=== PATIENT | female | born 1960 | race American Indian/Alaskan Native ===

== ENCOUNTER 2016-09-10 10:11 | Inpatient (IN) | payer MEDICARE ==
--- NOTE | 2016-09-10 11:43 | Emergency Department Report ---
Chief Complaint: Extremity Injury, Lower Stated Complaint: DIABETIC ISSUES - HPI History of Present Illness: 56 F PMH DMT2, morbid obesity presents with complaint of 2 days of severe right foot pain and swelling and pus drainage. Patient states that she had small ulcer on foot but it was not bothering her, had progressive worsening pain and purulent discharge from right foot along with severe swelling of right foot and lower extremity over the last 2 days. Difficulty walking on foot - ROS Review of Systems: ? Diabetic foot ulcer, morbid obesity, diabetes - Exam Vital Signs: Vital Signs 09/10/16 10:19 Temperature 99.0 F Pulse Rate 113 H Blood Pressure 146/86 O2 Sat by Pulse 98 Oximetry Physical Exam: Examination of the right lower extremity reveals pitting edema erythema cellulitis up to the right knee pretibial region, right foot appears gangrenous at base of right fourth toe visible air pockets with bubbles and drainage of purulent material from skin breakdown at base of right foot smells purulent and infected MSE screening note: Focused history and physical exam performed. Due to findings the following was ordered: Screening Assessment/Plan/Differential Dx: Diabetic foot infection, gangrene, cellulitis 1- This initial assessment/diagnostic orders/clinical plan/ treatment(s) is/are subject to change based on pt's health status, clinical progression and re- assessment by fellow clinical providers in the ED. Further treatment and workup at subsequent clinical provers discretion. Patient/guardians urged not to elope from ED as their condition may be serious if not clinically assessed and managed. 2-I immediately inform Dr. Sr who came and examined patient's foot after my initial exam, he agrees that patient may have a gangrenous toe and definitely has diabetic foot infection, likely require admission IV antibiotics and assessment for possible osteomyelitis 3-sepsis order set, CBC, ESR, CRP, x-ray right foot, lower extremity Doppler 4-Dr. Sr and I informed charge nurse Lidia that pt may be septic due to foot , as per warp picker Nikki no space in main ED at this time, pt to wait in waiting room. I advocated for pt as best as i could under circumstances. I will continue to check top see if pt can be moved into main ED room for IV ABX ABEL ED Disposition for MSE Condition: Stable
[2016-09-10 12:56] LABS: Hematocrit 35.1 % (30.3-42.9); Hemoglobin 11.3 gm/dl (10.1-14.3); Mean Corpuscular HGB Conc 32 % (30-34); Mean Corpuscular Hemoglobin 27 pg (28-32); Mean Corpuscular Volume 85 fl (79-97); Platelet Count 322 K/mm3 (140-440); Red Blood Count 4.13 M/mm3 (3.65-5.03); Red Cell Distribution Width 14.4 % (13.2-15.2)
[2016-09-10 12:57] LABS: White Blood Count 24.8 K/mm3 (4.5-11.0)
[2016-09-10 13:05] LABS: INR 1.24 (0.87-1.13)
[2016-09-10 13:06] LABS: BUN/Creatinine Ratio 11.66; Chloride 88.8 mmol/L (98-107); Partial Thromboplastin Time 29.5 Sec. (24.2-36.6)
[2016-09-10 13:09] LABS: Albumin 3.3 g/dL (3.9-5); Albumin/Globulin Ratio 0.6 %; Bilirubin,Direct 0.4 mg/dL (0-0.2); Bilirubin,Indirect 0.6 mg/dL; C-Reactive Protein 33.4 mg/dL (0.00-1.30); Total Protein 8.8 g/dL (6.3-8.2)
--- NOTE | 2016-09-10 13:19 | XRay Report ---
Right foot: There is scattered bubbles of gas in the soft tissues on the dorsum of the mid and distal foot . There is generalized swelling of the soft tissues with focal soft tissue bulging in the dorsum of the mid and distal foot. The underlying bones and joints are preserved with no destructive change. The bones appear relatively well-mineralized. Impressions: Findings are consistent with soft tissue infection. No osteomyelitis identified.
[2016-09-10 13:35] LABS: Erythrocyte Sedimentation Rate 77 mm/Hr (0-20)
[2016-09-10 13:51] LABS: Basophils % (Manual) 0 % (0.0-1.8); Blastocytes % (Manual) 0 %; Eosinophils % (Manual) 0 % (0.0-4.3); Total Cells Counted Percent 6.5
[2016-09-10 13:54] LABS: Diff Status Complete; RBC Morphology Normal
[2016-09-10] MEDS ORDERED: ZOSYN/NS 3.375GM/50ML 50 ML IV ONE (16:22)
[2016-09-10] MEDS ORDERED: NACL 0.9% 1000 ML 1,000 ML IV ONE (16:22)
--- NOTE | 2016-09-10 16:22 | Emergency Department Report ---
ED General Adult HPI - General Chief complaint: Extremity Injury, Lower Stated complaint: DIABETIC ISSUES Time Seen by Provider: 09/10/16 16:09 Source: patient Mode of arrival: Ambulatory Limitations: Physical Limitation - History of Present Illness Initial comments: The patient gives a history that is possibly unreliable. She states that she developed a blister on the dorsum of her foot yesterday. However she admitted to the nurse that her foot has been smelling bad for a month. In addition she states that she has been going to a professor/nurse anesthetist. She tells me that she has taken a cell phone picture the bottom of her foot and that there is an ulcer there which she's had for greater than a month. She identifies the blister on the top of her foot as the new problems. However she has a frankly gangrenous foot on presentation to this facility. Additionally she has cellulitis and swelling extending to above her ankle. She denies any recent fever. She denies chills. She denies nausea vomiting or breathing difficulty. She states that he's had some yellow discharge from the blister. -: week(s) Location: right (the patient does not complain of much foot pain at this juncture) Consistency: now resolved Improves with: none Worsens with: none Associated Symptoms: denies other symptoms Treatments Prior to Arrival: none - Related Data Home Medications Medication Instructions Recorded Confirmed Last Taken Albuterol Sulfate [Ventolin HFA] 2 puff IH Q4H PRN 01/29/14 02/02/15 02/01/15 Levothyroxine [Synthroid] 200 mcg PO QAM 01/29/14 02/02/15 02/01/15 Losartan/Hydrochlorothiazide 1 each PO QDAY 01/29/14 02/02/15 02/02/15 10:00 [Hyzaar 100-12.5] glipiZIDE [Glipizide Xl] 10 mg PO BID 01/29/14 02/02/15 02/01/15 metFORMIN [Glucophage] 1,000 mg PO BID 01/29/14 02/02/15 02/01/15 Cetirizine HCl [ZyrTEC] 10 mg PO DAILY 01/26/15 02/02/15 01/31/15 Fluticasone/Salmeterol [Advair 1 each IH PRN PRN 0502/02/15 02/02/15 10: 00 250-50 Diskus] Furosemide [Lasix] 10 mg PO QDAY 01/26/15 02/02/15 02/01/15 Insulin Glargine [Lantus] 50 unit SUB-Q QHS 01/26/15 02/02/15 02/01/15 Insulin NPH Hum/Reg Insulin Hm 10 - 50 unit SQ QAM 01/26/15 02/02/15 01/31/15 [HumuLIN 70-30 Vial] Tramadol HCl [traMADol] 50 mg PO PRN PRN 01/26/15 02/02/15 01/31/15 Previous Rx's Medication Instructions Recorded Last Taken Type HYDROcodone/APAP 5-325 [[place] 2 each PO Q6H PRN #30 tablet 02/03/15 Unknown Rx 5-325 mg TAB] Allergies Allergy/AdvReac Type Severity Reaction Status Date / Time latex Allergy Unknown Verified 01/26/15 16:14 shellfish derived Allergy Anaphylaxis Verified 01/26/15 16:14 strawberry Allergy Anaphylaxis Verified 01/26/15 16:14 tomato Allergy Anaphylaxis Verified 01/26/15 16:14 nuts Allergy Anaphylaxis Uncoded 01/26/15 16:14 ED Review of Systems ROS: Stated complaint: DIABETIC ISSUES Other details as noted in HPI Constitutional: denies: chills, fever Eyes: eye discharge. denies: eye pain, vision change ENT: denies: ear pain, throat pain Respiratory: denies: cough, shortness of breath Cardiovascular: denies: chest pain, palpitations Endocrine: no symptoms reported Gastrointestinal: denies: abdominal pain, nausea Genitourinary: denies: urgency, dysuria Musculoskeletal: as per HPI. denies: back pain, arthralgia Skin: as per HPI Neurological: denies: headache, weakness Psychiatric: denies: anxiety, depression Hematological/Lymphatic: denies: easy bleeding, easy bruising ED Past Medical Hx - Past Medical History Hx Hypertension: Yes (since the mid s) Hx Diabetes: Yes Hx Arthritis: Yes (RA) Hx Asthma: Yes (uses Advair and PRN Albuterol) Hx COPD: No Additional medical history: thyroid dz. neuropathy - Social History Smoking Status: Former Smoker - Medications Home Medications: Home Medications Medication Instructions Recorded Confirmed Last Taken Type Albuterol Sulfate [Ventolin HFA] 2 puff IH Q4H PRN 01/29/14 02/02/15 02/01/15 History Levothyroxine [Synthroid] 200 mcg PO QAM 01/29/14 02/02/15 02/01/15 History Losartan/Hydrochlorothiazide 1 each PO QDAY 01/29/14 02/02/15 02/02/15 10:00 History [Hyzaar 100-12.5] glipiZIDE [Glipizide Xl] 10 mg PO BID 01/29/14 02/02/15 02/01/15 History metFORMIN [Glucophage] 1,000 mg PO BID 01/29/14 02/02/15 02/01/15 History Cetirizine HCl [ZyrTEC] 10 mg PO DAILY 01/26/15 02/02/15 01/31/15 History Fluticasone/Salmeterol [Advair 1 each IH PRN PRN 01/26/15 02/02/15 02/02/15 10: 00 History 250-50 Diskus] Furosemide [Lasix] 10 mg PO QDAY 01/26/15 02/02/15 02/01/15 History Insulin Glargine [Lantus] 50 unit SUB-Q QHS 01/26/15 02/02/15 02/01/15 History Insulin NPH Hum/Reg Insulin Hm 10 - 50 unit SQ QAM 01/26/15 02/02/15 01/31/15 History [HumuLIN 70-30 Vial] Tramadol HCl [traMADol] 50 mg PO PRN PRN 01/26/15 02/02/15 01/31/15 History HYDROcodone/APAP 5-325 [[place] 2 each PO Q6H PRN #30 tablet 02/03/15 Unknown Rx 5-325 mg TAB] ED Physical Exam - General Limitations: Physical Limitation General appearance: alert, in no apparent distress - Head Head exam: Present: atraumatic, normocephalic - Eye Eye exam: Present: normal appearance. Absent: scleral icterus - ENT ENT exam: Present: mucous membranes dry - Neck Neck exam: Present: normal inspection. Absent: tenderness, meningismus - Respiratory Respiratory exam: Present: normal lung sounds bilaterally. Absent: respiratory distress - Cardiovascular Cardiovascular Exam: Present: regular rate, normal rhythm. Absent: systolic murmur, diastolic murmur, rubs, gallop - GI/Abdominal GI/Abdominal exam: Present: soft, normal bowel sounds. Absent: distended, tenderness, guarding, rebound, rigid - Extremities Exam Extremities exam: Present: normal inspection - Back Exam Back exam: Present: normal inspection - Neurological Exam Neurological exam: Present: oriented X3, CN II-XII intact, motor sensory deficit (patient essentially is not moving her toes whatsoever. She's somewhat insensate.) - Psychiatric Psychiatric exam: Present: normal affect, normal mood - Skin Skin exam: Absent: normal color (the patient essentially has a gangrenous foot. She has a bullae on the dorsum of her foot. There is 2-3+ edema. She has swelling to the region between her ankle and her mid calf. There is erythema. There is no apparent lymphangitis. There is warmth. Pulses cannot be appreciated.) ED Course Vital Signs 09/10/16 09/10/16 09/10/16 10:19 16:41 17:09 Temperature 99.0 F 99.2 F Pulse Rate 113 H 74 Respiratory 16 14 Rate Blood Pressure 146/86 Blood Pressure 124/72 [Left] O2 Sat by Pulse 98 95 98 Oximetry 09/10/16 18:40 Temperature 98.8 F Pulse Rate 95 H Respiratory 17 Rate Blood Pressure Blood Pressure 98/67 [Left] O2 Sat by Pulse 99 Oximetry - Reevaluation(s) Reevaluation #1: I advised empiric antibiotics after seeing this patient in the MSE the area. Since the patient was placed in the treatment area they were ordered. I spoke to Dr. Shannon concerning this patient's presentation and apparent either headache foot infection with gas present on the x-ray. He requested that I Text him a picture child have done. He instructed me to let the hospitalist know that the patient should be nothing by mouth at midnight for possible amputation in the morning. Dr. Barr has been informed. 09/10/16 19:04 ED Medical Decision Making - Lab Data Result diagrams: 09/10/16 12:25 09/10/16 12:25 Laboratory Results - last 24 hr 09/10/16 09/10/16 09/10/16 12:25 12:25 12:25 WBC 24.8 H RBC 4.13 Hgb 11.3 Hct 35.1 MCV 85 MCH 27 L MCHC 32 RDW 14.4 Plt Count 322 Add Manual Diff Complete Total Counted 200 Seg Neuts % (Manual) 84.0 H Band Neutrophils % 3.5 Lymphocytes % (Manual) 5.5 L Reactive Lymphs % (Man) 0 Monocytes % (Manual) 6.0 Eosinophils % (Manual) 0 Basophils % (Manual) 0 Metamyelocytes % 0.5 Myelocytes % 0.5 Promyelocytes % 0 Blast Cells % 0 Nucleated RBC % Not Reportable Seg Neutrophils # Man 20.8 H Band Neutrophils # 0.9 Lymphocytes # (Manual) 1.4 Abs React Lymphs (Man) 0.0 Monocytes # (Manual) 1.5 H Eosinophils # (Manual) 0.0 Basophils # (Manual) 0.0 Metamyelocytes # 0.1 Myelocytes # 0.1 Promyelocytes # 0.0 Blast Cells # 0.0 WBC Morphology Not Reportable Hypersegmented Neuts Not Reportable Hyposegmented Neuts Not Reportable Hypogranular Neuts Not Reportable Smudge Cells Not Reportable Toxic Granulation Not Reportable Toxic Vacuolation Not Reportable Dohle Bodies Not Reportable Pelger-Huet Anomaly Not Reportable Nba Rods Not Reportable Platelet Estimate Appears normal Clumped Platelets Not Reportable Plt Clumps, EDTA Not Reportable Large Platelets Not Reportable Giant Platelets Not Reportable Platelet Satelliting Not Reportable Plt Morphology Comment Not Reportable RBC Morphology Normal Dimorphic RBCs Not Reportable Polychromasia Not Reportable Hypochromasia Not Reportable Poikilocytosis Not Reportable Anisocytosis Not Reportable Microcytosis Not Reportable Macrocytosis Not Reportable Spherocytes Not Reportable Pappenheimer Bodies Not Reportable Sickle Cells Not Reportable Target Cells Not Reportable Tear Drop Cells Not Reportable Ovalocytes Not Reportable Helmet Cells Not Reportable Terry-[place] Bodies Not Reportable [place] Rings Not Reportable Marshall Cells Not Reportable Bite Cells Not Reportable Crenated Cell Not Reportable Elliptocytes Not Reportable Acanthocytes (Spur) Not Reportable Rouleaux Not Reportable Hemoglobin C Crystals Not Reportable Schistocytes Not Reportable Malaria parasites Not Reportable ESR 77 Luis Bodies Not Reportable Hem Pathologist Commnt No PT INR APTT Sodium 135 L Potassium 4.0 Chloride 88.8 L Carbon Dioxide 26 Anion Gap 24 BUN 28 H Creatinine 2.4 H Estimated GFR 25 BUN/Creatinine Ratio 11.66 Glucose 179 H Lactic Acid 2.3 H* Calcium 9.0 Total Bilirubin Direct Bilirubin Indirect Bilirubin AST ALT Alkaline Phosphatase C-Reactive Protein Total Protein Albumin Albumin/Globulin Ratio Blood Type Antibody Screen 09/10/16 09/10/16 09/10/16 12:25 12:25 12:25 WBC RBC Hgb Hct MCV MCH MCHC RDW Plt Count Add Manual Diff Total Counted Seg Neuts % (Manual) Band Neutrophils % Lymphocytes % (Manual) Reactive Lymphs % (Man) Monocytes % (Manual) Eosinophils % (Manual) Basophils % (Manual) Metamyelocytes % Myelocytes % Promyelocytes % Blast Cells % Nucleated RBC % Seg Neutrophils # Man Band Neutrophils # Lymphocytes # (Manual) Abs React Lymphs (Man) Monocytes # (Manual) Eosinophils # (Manual) Basophils # (Manual) Metamyelocytes # Myelocytes # Promyelocytes # Blast Cells # WBC Morphology Hypersegmented Neuts Hyposegmented Neuts Hypogranular Neuts Smudge Cells Toxic Granulation Toxic Vacuolation Dohle Bodies Pelger-Huet Anomaly Nba Rods Platelet Estimate Clumped Platelets Plt Clumps, EDTA Large Platelets Giant Platelets Platelet Satelliting Plt Morphology Comment RBC Morphology Dimorphic RBCs Polychromasia Hypochromasia Poikilocytosis Anisocytosis Microcytosis Macrocytosis Spherocytes Pappenheimer Bodies Sickle Cells Target Cells Tear Drop Cells Ovalocytes Helmet Cells Terry-[place]ner Bodies [place] Rings Marshall Cells Bite Cells Crenated Cell Elliptocytes Acanthocytes (Spur) Rouleaux Hemoglobin C Crystals Schistocytes Malaria parasites ESR Luis Bodies Hem Pathologist Commnt PT 15.5 H INR 1.24 H APTT 29.5 Sodium Potassium Chloride Carbon Dioxide Anion Gap BUN Creatinine Estimated GFR BUN/Creatinine Ratio Glucose Lactic Acid Calcium Total Bilirubin 1.0 Direct Bilirubin 0.4 H Indirect Bilirubin 0.6 AST 21 ALT 17 Alkaline Phosphatase 72 C-Reactive Protein 33.40 H Total Protein 8.8 H Albumin 3.3 L Albumin/Globulin Ratio 0.6 Blood Type B POSITIVE Antibody Screen Negative 09/10/16 15:10 WBC RBC Hgb Hct MCV MCH MCHC RDW Plt Count Add Manual Diff Total Counted Seg Neuts % (Manual) Band Neutrophils % Lymphocytes % (Manual) Reactive Lymphs % (Man) Monocytes % (Manual) Eosinophils % (Manual) Basophils % (Manual) Metamyelocytes % Myelocytes % Promyelocytes % Blast Cells % Nucleated RBC % Seg Neutrophils # Man Band Neutrophils # Lymphocytes # (Manual) Abs React Lymphs (Man) Monocytes # (Manual) Eosinophils # (Manual) Basophils # (Manual) Metamyelocytes # Myelocytes # Promyelocytes # Blast Cells # WBC Morphology Hypersegmented Neuts Hyposegmented Neuts Hypogranular Neuts Smudge Cells Toxic Granulation Toxic Vacuolation Dohle Bodies Pelger-Huet Anomaly Nba Rods Platelet Estimate Clumped Platelets Plt Clumps, EDTA Large Platelets Giant Platelets Platelet Satelliting Plt Morphology Comment RBC Morphology Dimorphic RBCs Polychromasia Hypochromasia Poikilocytosis Anisocytosis Microcytosis Macrocytosis Spherocytes Pappenheimer Bodies Sickle Cells Target Cells Tear Drop Cells Ovalocytes Helmet Cells Terry-[place]ner Bodies [place] Rings Marshall Cells Bite Cells Crenated Cell Elliptocytes Acanthocytes (Spur) Rouleaux Hemoglobin C Crystals Schistocytes Malaria parasites ESR Luis Bodies Hem Pathologist Commnt PT INR APTT Sodium Potassium Chloride Carbon Dioxide Anion Gap BUN Creatinine Estimated GFR BUN/Creatinine Ratio Glucose Lactic Acid 1.5 Calcium Total Bilirubin Direct Bilirubin Indirect Bilirubin AST ALT Alkaline Phosphatase C-Reactive Protein Total Protein Albumin Albumin/Globulin Ratio Blood Type Antibody Screen - Radiology Data interpreted by me: Gas noted in the dorsum of the foot with soft tissue swelling. Against does not extend as far as I can tell. Chest x-ray shows cardiomegaly with and without decompensation. Doppler exam was negative for DVT. Critical care attestation.: If time is entered above; I have spent that time in minutes in the direct care of this critically ill patient, excluding procedure time. ED Disposition Clinical Impression: Gas gangrene of foot, Diabetic infection of right foot, Renal failure Leukocytosis (leucocytosis) Qualifiers: Leukocytosis type: bandemia Qualified Code(s): D72.825 - Bandemia Disposition: OP ADMITTED IP TO THIS HOSP Is pt being admited?: Yes Does the pt Need Aspirin: No Condition: Stable Instructions: Diabetes Mellitus Type 2 in Adults (ED) Referrals: INDIA ESCALANTE MD [Primary Care Provider] - 3-5 Days Time of Disposition: 19:21
[2016-09-10] MEDS ORDERED: CLEOCIN 600 MG/50 mL 50 ML IV ONE (16:24)
[2016-09-10] MEDS ORDERED: VANCOMYCIN PHARMACY TO DOSE IV SCH (17:00)
[2016-09-10] MEDS ORDERED: VANCOMYCIN VIAL 1,250 MG in NACL 0.9% 250ML 250 ML IV SCH (18:00)
[2016-09-10] MEDS ORDERED: ZOFRAN ONE (18:28)
[2016-09-10] MEDS ORDERED: MORPHINE ONE (18:43)
[2016-09-10] MEDS ORDERED: ZOFRAN IV ONE (18:51)
[2016-09-10] MEDS ORDERED: MORPHINE IV ONE (18:51)
[2016-09-10] MEDS ORDERED: PROAIR IH PRN (21:09)
[2016-09-10] MEDS ORDERED: FLUTICASONE IH PRN (21:09)
[2016-09-10] MEDS ORDERED: ULTRAM PO PRN (21:09)
[2016-09-10] MEDS ORDERED: SALMETEROL IH PRN (21:09)
--- NOTE | 2016-09-10 21:09 | Event Note ---
Date: 09/10/16 See H/p in reports Rt Foot cellulitis versus Abscess/Gas Gangrene T2DM- HTN Obesity
[2016-09-10] MEDS ORDERED: ZOFRAN IV PRN (21:14)
[2016-09-10] MEDS ORDERED: DULCOLAX PR PRN (21:14)
[2016-09-10] MEDS ORDERED: PERCOCET 5/325 PO PRN (21:14)
[2016-09-10] MEDS ORDERED: TYLENOL PO PRN (21:14)
[2016-09-10] MEDS ORDERED: MILK OF MAGNESIA PO PRN (21:14)
[2016-09-10] MEDS ORDERED: NON-FORMULARY (Losartan/Hydrochlorothiazide [Hyzaar 100-12.5 Tab] 1 EACH) PO SCH (21:15)
[2016-09-10] MEDS ORDERED: PROVENTIL IH PRN (21:43)
[2016-09-10] MEDS ORDERED: LOVENOX SUB-Q SCH (22:00)
[2016-09-10] MEDS ORDERED: VANCOMYCIN VIAL 1,000 MG in NACL 0.9% 250ML 250 ML IV SCH (22:00)
[2016-09-10] MEDS ORDERED: GLUCOPHAGE PO SCH (22:00)
[2016-09-10] MEDS ORDERED: INSULIN GLARGINE 50 UNIT SUB-Q SCH (22:00)
[2016-09-10] MEDS ORDERED: COZAAR PO SCH (22:00)
[2016-09-10] MEDS ORDERED: VANCOMYCIN VIAL 750 MG in NACL 0.9% 250ML 250 ML IV ONE (22:00)
[2016-09-10] MEDS ORDERED: HCTZ PO SCH (22:00)
[2016-09-10] MEDS: LEVEMIR SUB-Q SCH (22:30)
[2016-09-11] MEDS ORDERED: ZOSYN/NS 4.5GM/100ML 100 ML IV SCH
[2016-09-11] MEDS ORDERED: MORPHINE ONE (01:09)
[2016-09-11] MEDS ORDERED: NOVOLOG SUB-Q ONE (02:35)
[2016-09-11] MEDS: SYNTHROID PO SCH (06:22)
[2016-09-11 06:24] LABS: Hematocrit 31.3 % (30.3-42.9); Mean Corpuscular HGB Conc 32 % (30-34); Mean Corpuscular Hemoglobin 27 pg (28-32); Mean Corpuscular Volume 84 fl (79-97); Platelet Count 281 K/mm3 (140-440); Red Blood Count 3.72 M/mm3 (3.65-5.03); Red Cell Distribution Width 14.6 % (13.2-15.2); White Blood Count 20.3 K/mm3 (4.5-11.0)
[2016-09-11] MEDS: NORCO 5/325 PO PRN (06:26)
[2016-09-11 06:35] LABS: Albumin 2.8 g/dL (3.9-5); Albumin/Globulin Ratio 0.5 %; BUN/Creatinine Ratio 10.27; Bilirubin,Total 0.7 mg/dL (0.1-1.2); Calcium 8.5 mg/dL (8.4-10.2); Chloride 92.7 mmol/L (98-107); Potassium 3.6 mmol/L (3.6-5.0); Total Protein 7.9 g/dL (6.3-8.2)
[2016-09-11 07:17] LABS: Anisocytosis 1+; Basophils % (Manual) 0 % (0.0-1.8); Blastocytes % (Manual) 0 %; Hypochromasia Few; Polychromasia Few; Target Cells Rare
[2016-09-11 07:18] LABS: Diff Status Complete
--- NOTE | 2016-09-11 07:41 | Consultation ---
History of Present Illness - Reason for Consult Consult date: 09/11/16 Requesting physician: DAYAMI GAMEZ - History of Present Illness Patient is a 56-year-old female who developed swelling in her right foot and pain. Patient states that he developed as a blister and got progressively worse Patient presented to the emergency room for evaluation. Patient denies claudication, rest pain, tissue loss in the past. Patient says that her foot is feeling better. She was normally ambulatory. Past History Past Medical History: CAD, COPD, diabetes, hypothyroidism Past Surgical History: No surgical history Social history: denies: smoking, alcohol abuse Medications and Allergies Allergies Allergy/AdvReac Type Severity Reaction Status Date / Time latex Allergy Unknown Verified 01/26/15 16:14 shellfish derived Allergy Anaphylaxis Verified 01/26/15 16:14 strawberry Allergy Anaphylaxis Verified 01/26/15 16:14 tomato Allergy Anaphylaxis Verified 01/26/15 16:14 nuts Allergy Anaphylaxis Uncoded 01/26/15 16:14 Home Medications Medication Instructions Recorded Confirmed Last Taken Type Albuterol Sulfate [Ventolin HFA] 2 puff IH Q4H PRN 01/29/14 09/10/16 02/01/15 History Levothyroxine [Synthroid] 200 mcg PO QAM 01/29/14 09/10/16 02/01/15 History Losartan/Hydrochlorothiazide 1 each PO QDAY 01/29/14 09/10/16 02/02/15 10:00 History [Hyzaar 100-12.5] glipiZIDE [Glipizide Xl] 10 mg PO BID 01/29/14 09/10/16 02/01/15 History metFORMIN [Glucophage] 1,000 mg PO BID 01/29/14 09/10/16 02/01/15 History Cetirizine HCl [ZyrTEC] 10 mg PO DAILY 01/26/15 09/10/16 01/31/15 History Fluticasone/Salmeterol [Advair 1 each IH PRN PRN 01/26/15 09/10/16 02/02/15 10: 00 History 250-50 Diskus] Furosemide [Lasix] 10 mg PO QDAY 01/26/15 09/10/16 02/01/15 History Insulin Glargine [Lantus] 50 unit SUB-Q QHS 0509/10/16 02/01/15 History Insulin NPH Hum/Reg Insulin Hm 10 - 50 unit SQ QAM 01/26/15 09/10/16 01/31/15 History [HumuLIN 70-30 Vial] Tramadol HCl [traMADol] 50 mg PO PRN PRN 01/26/15 09/10/16 01/31/15 History HYDROcodone/APAP 5-325 [[place] 2 each PO Q6H PRN #30 tablet 02/03/15 09/10/16 Unknown Rx 5-325 mg TAB] Active Meds: Active Medications Acetaminophen (Tylenol) 650 mg PO Q4H PRN PRN Reason: Pain MILD(1-3)/Fever >100.5/MARTÍNEZ Acetaminophen/Hydrocodone Bitart (Jackson 5/325) 2 each PO Q6H PRN PRN Reason: Moderate Pain Last Admin: 09/11/16 06:26 Dose: 2 each Albuterol (Proventil) 2.5 mg IH Q4HRT PRN PRN Reason: Shortness Of Breath Arformoterol Tartrate (Brovana Nebu) 15 mcg IH Q12HRT [facility] Bisacodyl (Dulcolax) 10 mg TN QDAY PRN PRN Reason: Constipation unrelieved by MOM Budesonide (Pulmicort) 0.5 mg IH Q12HRT [facility] Heparin Sodium (Porcine) (Heparin) 5,000 unit SUB-Q Q8HR [facility] Vancomycin HCl 2,000 mg/ (Sodium Chloride) 500 mls @ 250 mls/hr IV Q24H [facility] Piperacillin Sod/Tazobactam Sod (Zosyn/Ns 2.25 Gm/50ml) 50 mls @ 100 mls/hr IV Q8HR LEONOR PRN Reason: Protocol Sodium Chloride (Nacl 0.45% 1000 Ml) 1,000 mls @ 100 mls/hr IV DIRECT [facility] Influenza Virus Vaccine Quadrival (Fluarix Quad [id number](36 Mos+)) 60 mcg IM .ONCE ONE Stop: 09/11/16 12:01 Insulin Detemir (Levemir) 50 units SUB-Q QHS LEONOR Last Admin: 09/10/16 22:30 Dose: 50 units Insulin Human Isoph/Insulin Regular (Novolin 70/30) 20 unit SUB-Q BIDDIAB [facility] Levothyroxine Sodium (Synthroid) 200 mcg PO QAM@0600 [facility] Last Admin: 09/11/16 06:22 Dose: 200 mcg Loratadine (Claritin) 10 mg PO DAILY [facility] Morphine Sulfate (Morphine) 2 mg IV Q4H PRN PRN Reason: Pain, Moderate (4-6) Ondansetron HCl (Zofran) 4 mg IV Q8H PRN PRN Reason: N/V unrelieved by Reglan Oxycodone/Acetaminophen (Percocet 5/325) 1 tab PO Q6H PRN PRN Reason: Pain, Moderate (4-6) Tramadol HCl (Ultram) 50 mg PO DAILY PRN PRN Reason: Pain Vancomycin HCl (Vancomycin Pharmacy To Dose) 1 each IV PKCONSULT [facility] PRN Reason: Protocol Review of Systems Constitutional: no weight loss, no weight gain, no fever, no chills, no sweats Ears, nose, mouth and throat: deferred Breasts: deferred Cardiovascular: no chest pain Respiratory: no cough Gastrointestinal: no abdominal pain Musculoskeletal: no neck stiffness, no neck pain Integumentary: deferred Neurological: no transient paralysis, no paralysis, no weakness, no parathesias Exam - Physical Exam Narrative exam: Head normocephalic atraumatic Eyes extraocular muscles intact. Oral mucosa moist. Neck no carotid bruit lymph nodes or JVD. Heart regular rate and rhythm. Lungs clear to auscultation bilaterally. Abdomen soft, mild tenderness nondistended normal bowel sounds. Peripheral vascular exam 2+ pedal pulses on the right Extremities: Right foot warm, top of the foot is swollen. No evidence of gangrene or ulcer. No evidence of red streaks. No drainage. - Constitutional Vitals: Temp Pulse Resp BP Pulse Ox 97.9 F 88 24 102/58 98 09/11/16 03:30 09/11/16 03:30 09/11/16 03:30 09/11/16 03:30 09/11/16 03:30 Results - Labs CBC & Chem 7: 09/11/16 05:24 09/11/16 05:24 Labs: Abnormal lab results 09/10/16 09/11/16 09/11/16 Range/Units 22:29 02:29 05:24 WBC 20.3 H (4.5-11.0) K/mm3 Hgb 10.0 L (10.1-14.3) gm/dl MCH 27 L (28-32) pg Seg Neuts % (Manual) 80.0 H (40.0-70.0) % Lymphocytes % (Manual) 11.0 L (13.4-35.0) % Seg Neutrophils # Man 16.2 H (1.8-7.7) K/mm3 Monocytes # (Manual) 1.4 H (0.0-0.8) K/mm3 Chloride (98-107) mmol/L BUN (7-17) mg/dL Creatinine (0.7-1.2) mg/dL POC Glucose 220 H 165 H (70-105) Albumin (3.9-5) g/dL 09/11/16 Range/Units 05:24 WBC (4.5-11.0) K/mm3 Hgb (10.1-14.3) gm/dl MCH (28-32) pg Seg Neuts % (Manual) (40.0-70.0) % Lymphocytes % (Manual) (13.4-35.0) % Seg Neutrophils # Man (1.8-7.7) K/mm3 Monocytes # (Manual) (0.0-0.8) K/mm3 Chloride 92.7 L (98-107) mmol/L BUN 37 H (7-17) mg/dL Creatinine 3.6 H (0.7-1.2) mg/dL POC Glucose (70-105) Albumin 2.8 L (3.9-5) g/dL Assessment and Plan Right foot infection. Foot is viable. No evidence of peripheral vascular disease. It is unclear whether patient has a drainable collection. No indication for vascular intervention. No indication for amputation. Plan: Consult orthopedic or podiatry for possible foot debridement. Consider CT or MRI of the foot to rule out drainable collection.
[2016-09-11] MEDS ORDERED: GLUCOPHAGE PO SCH (08:00)
[2016-09-11] MEDS ORDERED: NACL 0.45% 1000 ML 1,000 ML IV SCH (08:00)
--- NOTE | 2016-09-11 08:04 | XRay Report ---
AP CHEST : 09/10/16 16:47 CLINICAL: Hypertension. COMPARISON:10/27/12 FINDINGS: Normal heart and pulmonary vessels. The lungs are clear. Bibasal opacities are due to overlying soft tissue. IMPRESSION: Normal chest.
[2016-09-11] MEDS: PULMICORT IH SCH ×2 (08:31→20:42)
[2016-09-11] MEDS: BROVANA NEBU IH SCH ×2 (08:31→20:42)
[2016-09-11] MEDS: CLARITIN PO SCH (09:51)
[2016-09-11] MEDS ORDERED: NON-FORMULARY (Cetirizine Hcl [Zyrtec] 10 MG) PO SCH (10:00)
[2016-09-11] MEDS ORDERED: LASIX PO SCH (10:00)
--- NOTE | 2016-09-11 10:06 | Progress Note ---
Hospitalist Physical - Constitutional Vitals: Temp Pulse Resp BP Pulse Ox 98.2 F 84 18 111/59 98 09/11/16 08:00 09/11/16 08:45 09/11/16 08:45 09/11/16 08:00 09/11/16 08:00 Results - Labs CBC & Chem 7: 09/11/16 05:24 09/11/16 05:24 Labs: Laboratory Last Values WBC 20.3 K/mm3 (4.5-11.0) H 09/11/16 05:24 RBC 3.72 M/mm3 (3.65-5.03) 09/11/16 05:24 Hgb 10.0 gm/dl (10.1-14.3) L 09/11/16 05:24 Hct 31.3 % (30.3-42.9) 09/11/16 05:24 MCV 84 fl (79-97) 09/11/16 05:24 MCH 27 pg (28-32) L 09/11/16 05:24 MCHC 32 % (30-34) 09/11/16 05:24 RDW 14.6 % (13.2-15.2) 09/11/16 05:24 Plt Count 281 K/mm3 (140-440) 09/11/16 05:24 Lymph % (Auto) [employer] 09/11/16 05:24 [place] % (Auto) Pul[employer]er 09/11/16 05:24 Eos % (Auto) [employer] 09/11/16 05:24 Baso % (Auto) [employer] 09/11/16 05:24 Lymph # [employer]er 09/11/16 05:24 [place] # Pulp Cooker 09/11/16 05:24 Eos # Pulp Cooker 09/11/16 05:24 Baso # Pul[employer] Cooker 09/11/16 05:24 Add Manual Diff Complete 09/11/16 05:24 Total Counted 100 09/11/16 05:24 Seg Neutrophils % [employer]er 09/11/16 05:24 Seg Neuts % (Manual) 80.0 % (40.0-70.0) H 09/11/16 05:24 Band Neutrophils % 0 % 09/11/16 05:24 Lymphocytes % (Manual) 11.0 % (13.4-35.0) L 09/11/16 05:24 Reactive Lymphs % (Man) 0 % 09/11/16 05:24 Monocytes % (Manual) 7.0 % (0.0-7.3) 09/11/16 05:24 Eosinophils % (Manual) 2.0 % (0.0-4.3) 09/11/16 05:24 Basophils % (Manual) 0 % (0.0-1.8) 09/11/16 05:24 Metamyelocytes % 0 % 09/11/16 05:24 Myelocytes % 0 % 09/11/16 05:24 Promyelocytes % 0 % 09/11/16 05:24 Blast Cells % 0 % 09/11/16 05:24 Nucleated RBC % Not Reportable 09/11/16 05:24 Seg Neutrophils # Pulp Cooker 09/11/16 05:24 Seg Neutrophils # Man 16.2 K/mm3 (1.8-7.7) H 09/11/16 05:24 Band Neutrophils # 0.0 K/mm3 09/11/16 05:24 Lymphocytes # (Manual) 2.2 K/mm3 (1.2-5.4) 09/11/16 05:24 Abs React Lymphs (Man) 0.0 K/mm3 09/11/16 05:24 Monocytes # (Manual) 1.4 K/mm3 (0.0-0.8) H 09/11/16 05:24 Eosinophils # (Manual) 0.4 K/mm3 (0.0-0.4) 09/11/16 05:24 Basophils # (Manual) 0.0 K/mm3 (0.0-0.1) 09/11/16 05:24 Metamyelocytes # 0.0 K/mm3 09/11/16 05:24 Myelocytes # 0.0 K/mm3 09/11/16 05:24 Promyelocytes # 0.0 K/mm3 09/11/16 05:24 Blast Cells # 0.0 K/mm3 09/11/16 05:24 WBC Morphology Not Reportable 09/11/16 05:24 Hypersegmented Neuts Not Reportable 09/11/16 05:24 Hyposegmented Neuts Not Reportable 09/11/16 05:24 Hypogranular Neuts Not Reportable 09/11/16 05:24 Smudge Cells Not Reportable 09/11/16 05:24 Toxic Granulation Not Reportable 09/11/16 05:24 Toxic Vacuolation Not Reportable 09/11/16 05:24 Dohle Bodies Not Reportable 09/11/16 05:24 Pelger-Huet Anomaly Not Reportable 09/11/16 05:24 Nba Rods Not Reportable 09/11/16 05:24 Platelet Estimate Appears normal 09/11/16 05:24 Clumped Platelets Not Reportable 09/11/16 05:24 Plt Clumps, EDTA Not Reportable 09/11/16 05:24 Large Platelets Not Reportable 09/11/16 05:24 Giant Platelets Not Reportable 09/11/16 05:24 Platelet Satelliting Not Reportable 09/11/16 05:24 Plt Morphology Comment Not Reportable 09/11/16 05:24 RBC Morphology Not Reportable 09/11/16 05:24 Dimorphic RBCs Not Reportable 09/11/16 05:24 Polychromasia Few 09/11/16 05:24 Hypochromasia Few 09/11/16 05:24 Poikilocytosis Not Reportable 09/11/16 05:24 Anisocytosis 1+ 09/11/16 05:24 Microcytosis Not Reportable 09/11/16 05:24 Macrocytosis Not Reportable 09/11/16 05:24 Spherocytes Not Reportable 09/11/16 05:24 Pappenheimer Bodies Not Reportable 09/11/16 05:24 Sickle Cells Not Reportable 09/11/16 05:24 Target Cells Rare 09/11/16 05:24 Tear Drop Cells Not Reportable 09/11/16 05:24 Ovalocytes Not Reportable 09/11/16 05:24 Helmet Cells Not Reportable 09/11/16 05:24 [place] Bodies Not Reportable 09/11/16 05:24 [place] Rings Not Reportable 09/11/16 05:24 [place] Cells Not Reportable 09/11/16 05:24 Bite Cells Not Reportable 09/11/16 05:24 Crenated Cell Not Reportable 09/11/16 05:24 Elliptocytes Not Reportable 09/11/16 05:24 Acanthocytes (Spur) Not Reportable 09/11/16 05:24 Rouleaux Not Reportable 09/11/16 05:24 Hemoglobin C Crystals Not Reportable 09/11/16 05:24 Schistocytes Not Reportable 09/11/16 05:24 Malaria parasites Not Reportable 09/11/16 05:24 ESR 77 mm/Hr (0-20) 09/10/16 12:25 Luis Bodies Not Reportable 09/11/16 05:24 Hem Pathologist Commnt No 09/11/16 05:24 PT 15.5 Sec. (12.2-14.9) H 09/10/16 12:25 INR 1.24 (0.87-1.13) H 09/10/16 12:25 APTT 29.5 Sec. (24.2-36.6) 09/10/16 12:25 Sodium 137 mmol/L (137-145) 09/11/16 05:24 Potassium 3.6 mmol/L (3.6-5.0) 09/11/16 05:24 Chloride 92.7 mmol/L (98-107) L 09/11/16 05:24 Carbon Dioxide 26 mmol/L (22-30) 09/11/16 05:24 Anion Gap 22 mmol/L 09/11/16 05:24 BUN 37 mg/dL (7-17) H 09/11/16 05:24 Creatinine 3.6 mg/dL (0.7-1.2) H 09/11/16 05:24 Estimated GFR 16 ml/min 09/11/16 05:24 BUN/Creatinine Ratio 10.27 % 09/11/16 05:24 Glucose 99 mg/dL (65-100) 09/11/16 05:24 POC Glucose 73 (70-105) 09/11/16 06:52 Lactic Acid 1.5 mmol/L (0.7-2.0) 09/10/16 15:10 Calcium 8.5 mg/dL (8.4-10.2) 09/11/16 05:24 Total Bilirubin 0.7 mg/dL (0.1-1.2) 09/11/16 05:24 Direct Bilirubin 0.4 mg/dL (0-0.2) H 09/10/16 12:25 Indirect Bilirubin 0.6 mg/dL 09/10/16 12:25 AST 19 units/L (5-40) 09/11/16 05:24 ALT 16 units/L (7-56) 09/11/16 05:24 Alkaline Phosphatase 61 units/L (35-129) 09/11/16 05:24 C-Reactive Protein 33.40 mg/dL (0.00-1.30) H 09/10/16 12:25 Total Protein 7.9 g/dL (6.3-8.2) 09/11/16 05:24 Albumin 2.8 g/dL (3.9-5) L 09/11/16 05:24 Albumin/Globulin Ratio 0.5 % 09/11/16 05:24 Blood Type B POSITIVE 09/10/16 12:25 Antibody Screen Negative 09/10/16 12:25 X-ray of the foot-scattered bubbles of gas in the soft tissue on the dorsum of the mid and dorsal foot. There is general swelling of the soft tissues focal soft tissue bulging in the dorsum of the mid and distal foot. Underlying bones and joints are preserved with no destructive change.
--- NOTE | 2016-09-11 10:12 | Progress Note ---
Assessment and Plan Assessment and plan: 1. Sepsis present on admission secondary to right foot cellulitis versus abscess with gangrene to the toe-vascular consult noted. We'll consult orthopedics for further evaluation and possible debridement, continue current IV antibiotics with vancomycin and Zosyn. We'll consult ID. We'll keep nothing by mouth for now until evaluated by orthopedics; wbc decreasing today 2. Diabetes type 2-with insulin dependence-continue current insulin regime, cont to monitor glucose 3. Hypothyroidism-cont thyroxine replacement 4. Morbid obesity- life style, modification advised- diet; weight loss and exercsie 5. DVT prophylaxis- heparin- will hold in the event that she needs to be debrided History Interval history: F/U diabetic foot infection Patient seen at the bedside; no complaints; Hospitalist Physical - Constitutional Vitals: Temp Pulse Resp BP Pulse Ox 98.2 F 84 18 111/59 98 09/11/16 08:00 09/11/16 08:45 09/11/16 08:45 09/11/16 08:00 09/11/16 08:00 General appearance: Present: no acute distress, obese (morbid) - EENT Eyes: Present: PERRL, EOM intact. Absent: scleral icterus, conjunctival injection ENT: hearing intact, clear oral mucosa, no oropharyngeal erythema, no poor dentition - Neck Neck: Present: supple, normal ROM. Absent: enlarged thyroid, masses or JVD - Respiratory Respiratory effort: normal Respiratory: negative: diminished, rales, rhonchi, wheezing - Cardiovascular Rhythm: regular Heart Sounds: Present: S1 & S2. Absent: gallop - Extremities Extremities: pulses intact, pulses symmetrical, abnormal (RT foot- swollen and tender with gangrenous 3rd toe; open wound on the sole close to the toes ) Peripheral Pulses: within normal limits - Abdominal General gastrointestinal: soft, non-tender, non-distended - Integumentary Integumentary: Present: warm - Psychiatric Psychiatric: appropriate mood/affect, intact judgment & insight - Neurologic Neurologic: CNII-XII intact, moves all extremities Results - Labs CBC & Chem 7: 09/11/16 05:24 09/11/16 05:24 Labs: Laboratory Last Values WBC 20.3 K/mm3 (4.5-11.0) H 09/11/16 05:24 RBC 3.72 M/mm3 (3.65-5.03) 09/11/16 05:24 Hgb 10.0 gm/dl (10.1-14.3) L 09/11/16 05:24 Hct 31.3 % (30.3-42.9) 09/11/16 05:24 MCV 84 fl (79-97) 09/11/16 05:24 MCH 27 pg (28-32) L 09/11/16 05:24 MCHC 32 % (30-34) 09/11/16 05:24 RDW 14.6 % (13.2-15.2) 09/11/16 05:24 Plt Count 281 K/mm3 (140-440) 09/11/16 05:24 Lymph % (Auto) [facility] 09/11/16 05:24 [place] % (Auto) [facility] 09/11/16 05:24 Eos % (Auto) [facility] 09/11/16 05:24 Baso % (Auto) [facility] 09/11/16 05:24 Lymph # [facility] 09/11/16 05:24 [place] # [facility] 09/11/16 05:24 Eos # [facility] 09/11/16 05:24 Baso # [facility] 09/11/16 05:24 Add Manual Diff Complete 09/11/16 05:24 Total Counted 100 09/11/16 05:24 Seg Neutrophils % [facility] 09/11/16 05:24 Seg Neuts % (Manual) 80.0 % (40.0-70.0) H 09/11/16 05:24 Band Neutrophils % 0 % 09/11/16 05:24 Lymphocytes % (Manual) 11.0 % (13.4-35.0) L 09/11/16 05:24 Reactive Lymphs % (Man) 0 % 09/11/16 05:24 Monocytes % (Manual) 7.0 % (0.0-7.3) 09/11/16 05:24 Eosinophils % (Manual) 2.0 % (0.0-4.3) 09/11/16 05:24 Basophils % (Manual) 0 % (0.0-1.8) 09/11/16 05:24 Metamyelocytes % 0 % 09/11/16 05:24 Myelocytes % 0 % 09/11/16 05:24 Promyelocytes % 0 % 09/11/16 05:24 Blast Cells % 0 % 09/11/16 05:24 Nucleated RBC % Not Reportable 09/11/16 05:24 Seg Neutrophils # [facility] 09/11/16 05:24 Seg Neutrophils # Man 16.2 K/mm3 (1.8-7.7) H 09/11/16 05:24 Band Neutrophils # 0.0 K/mm3 09/11/16 05:24 Lymphocytes # (Manual) 2.2 K/mm3 (1.2-5.4) 09/11/16 05:24 Abs React Lymphs (Man) 0.0 K/mm3 09/11/16 05:24 Monocytes # (Manual) 1.4 K/mm3 (0.0-0.8) H 09/11/16 05:24 Eosinophils # (Manual) 0.4 K/mm3 (0.0-0.4) 09/11/16 05:24 Basophils # (Manual) 0.0 K/mm3 (0.0-0.1) 09/11/16 05:24 Metamyelocytes # 0.0 K/mm3 09/11/16 05:24 Myelocytes # 0.0 K/mm3 09/11/16 05:24 Promyelocytes # 0.0 K/mm3 09/11/16 05:24 Blast Cells # 0.0 K/mm3 09/11/16 05:24 WBC Morphology Not Reportable 09/11/16 05:24 Hypersegmented Neuts Not Reportable 09/11/16 05:24 Hyposegmented Neuts Not Reportable 09/11/16 05:24 Hypogranular Neuts Not Reportable 09/11/16 05:24 Smudge Cells Not Reportable 09/11/16 05:24 Toxic Granulation Not Reportable 09/11/16 05:24 Toxic Vacuolation Not Reportable 09/11/16 05:24 Dohle Bodies Not Reportable 09/11/16 05:24 Pelger-Huet Anomaly Not Reportable 09/11/16 05:24 Nba Rods Not Reportable 09/11/16 05:24 Platelet Estimate Appears normal 09/11/16 05:24 Clumped Platelets Not Reportable 09/11/16 05:24 Plt Clumps, EDTA Not Reportable 09/11/16 05:24 Large Platelets Not Reportable 09/11/16 05:24 Giant Platelets Not Reportable 09/11/16 05:24 Platelet Satelliting Not Reportable 09/11/16 05:24 Plt Morphology Comment Not Reportable 09/11/16 05:24 RBC Morphology Not Reportable 09/11/16 05:24 Dimorphic RBCs Not Reportable 09/11/16 05:24 Polychromasia Few 09/11/16 05:24 Hypochromasia Few 09/11/16 05:24 Poikilocytosis Not Reportable 09/11/16 05:24 Anisocytosis 1+ 09/11/16 05:24 Microcytosis Not Reportable 09/11/16 05:24 Macrocytosis Not Reportable 09/11/16 05:24 Spherocytes Not Reportable 09/11/16 05:24 Pappenheimer Bodies Not Reportable 09/11/16 05:24 Sickle Cells Not Reportable 09/11/16 05:24 Target Cells Rare 09/11/16 05:24 Tear Drop Cells Not Reportable 09/11/16 05:24 Ovalocytes Not Reportable 09/11/16 05:24 Helmet Cells Not Reportable 09/11/16 05:24 [place] Bodies Not Reportable 09/11/16 05:24 [place] Rings Not Reportable 09/11/16 05:24 [place] Cells Not Reportable 09/11/16 05:24 Bite Cells Not Reportable 09/11/16 05:24 Crenated Cell Not Reportable 09/11/16 05:24 Elliptocytes Not Reportable 09/11/16 05:24 Acanthocytes (Spur) Not Reportable 09/11/16 05:24 Rouleaux Not Reportable 09/11/16 05:24 Hemoglobin C Crystals Not Reportable 09/11/16 05:24 Schistocytes Not Reportable 09/11/16 05:24 Malaria parasites Not Reportable 09/11/16 05:24 ESR 77 mm/Hr (0-20) 09/10/16 12:25 Luis Bodies Not Reportable 09/11/16 05:24 Hem Pathologist Commnt No 09/11/16 05:24 PT 15.5 Sec. (12.2-14.9) H 09/10/16 12:25 INR 1.24 (0.87-1.13) H 09/10/16 12:25 APTT 29.5 Sec. (24.2-36.6) 09/10/16 12:25 Sodium 137 mmol/L (137-145) 09/11/16 05:24 Potassium 3.6 mmol/L (3.6-5.0) 09/11/16 05:24 Chloride 92.7 mmol/L (98-107) L 09/11/16 05:24 Carbon Dioxide 26 mmol/L (22-30) 09/11/16 05:24 Anion Gap 22 mmol/L 09/11/16 05:24 BUN 37 mg/dL (7-17) H 09/11/16 05:24 Creatinine 3.6 mg/dL (0.7-1.2) H 09/11/16 05:24 Estimated GFR 16 ml/min 09/11/16 05:24 BUN/Creatinine Ratio 10.27 % 09/11/16 05:24 Glucose 99 mg/dL (65-100) 09/11/16 05:24 POC Glucose 73 (70-105) 09/11/16 06:52 Lactic Acid 1.5 mmol/L (0.7-2.0) 09/10/16 15:10 Calcium 8.5 mg/dL (8.4-10.2) 09/11/16 05:24 Total Bilirubin 0.7 mg/dL (0.1-1.2) 09/11/16 05:24 Direct Bilirubin 0.4 mg/dL (0-0.2) H 09/10/16 12:25 Indirect Bilirubin 0.6 mg/dL 09/10/16 12:25 AST 19 units/L (5-40) 09/11/16 05:24 ALT 16 units/L (7-56) 09/11/16 05:24 Alkaline Phosphatase 61 units/L (35-129) 09/11/16 05:24 C-Reactive Protein 33.40 mg/dL (0.00-1.30) H 09/10/16 12:25 Total Protein 7.9 g/dL (6.3-8.2) 09/11/16 05:24 Albumin 2.8 g/dL (3.9-5) L 09/11/16 05:24 Albumin/Globulin Ratio 0.5 % 09/11/16 05:24 Blood Type B POSITIVE 09/10/16 12:25 Antibody Screen Negative 09/10/16 12:25 X-ray of the foot-findings are consistent with soft tissue infection. No osteomyelitis identified. Scattered bubbles of gas in the foot tissues on the dorsum of the middle and distal foot Microbiology 09/10/16 13:04 Peripheral/Venous Blood Culture - Preliminary Culture in Progress 09/10/16 12:25 Peripheral/Venous Blood Culture - Preliminary Culture in Progress
--- NOTE | 2016-09-11 10:17 | History and Physical Report ---
CHIEF COMPLAINT: Right foot swelling and blister for a couple of days. HISTORY OF PRESENT ILLNESS: A 56-year-old -[place] female, obese, with multiple medical problems including insulin-dependent diabetes, hypothyroidism, hypertension comes in for right foot swelling and blister of couple of days. The patient's history is unreliable. She admits to the foot swelling right from one month. She has been ____. She has a big blister and darkening of the skin around the blister on the right foot extending from the great toe to the mid dorsum of the foot. Denies fever, denies chills. Denies nausea, vomiting. Denies shortness of breath. Pain is 10 on a scale of 1 to 10. PAST MEDICAL HISTORY: Significant for hypothyroidism, chronic kidney disease, hypertension, insulin-dependent diabetes, chronic pain. PAST SURGICAL HISTORY: None. SOCIAL HISTORY: Former smoker. FAMILY HISTORY: Significant for hypertension. CURRENT MEDICATIONS: Ventolin 2 puffs every 4 hours p.r.n., Synthroid 200 mcg p.o. q.a.m., losartan/hydrochlorothiazide one tablet p.o. daily 100/12.5. Glipizide 10 mg p.o. b.i.d., metformin 1000 mg b.i.d., cetirizine 10 mg p.o. daily, fluticasone 250/50 one puff b.i.d., Lasix 10 mg p.o. daily, Lantus 50 units at bedtime, Humulin 70/30 20 units in the morning. Tramadol 50 units p.o. q.4h. p.r.n. ALLERGIES: LATEX, SHELLFISH, STRAWBERRY, TOMATOES, and NUTS. REVIEW OF SYSTEMS: Significant for right foot swelling, hyperpigmentation, and blister near the toe measuring about 3 cm x 3 cm. No foot ulcer. Otherwise, review of systems negative. A 14-point review of systems was done. PHYSICAL EXAMINATION: GENERAL: Middle-aged female, looks older than her age. VITAL SIGNS: Blood pressure is 151/84, temperature is 97.9, pulse is 91, respirations are 18. HEENT: Unremarkable. Pupils equal and reactive. NECK: Supple, no lymphadenopathy, no thyromegaly. LUNGS: Clear to auscultation and percussion. Good air entry. CARDIOVASCULAR: S1, S2 heard. No gallop, no murmur, no rub. Apical impulse in left fifth intercostal space and midclavicular line. ABDOMEN: Soft and benign. No hepatosplenomegaly. No guarding, no rigidity. Hernial orifices are normal. EXTREMITIES: Gangrenous changes with a big blister on the right foot dorsum extending from the great toe to the distal one-third of the foot, measuring about 3 x 3 cm, also dark skin around the blister. There was swelling present. Erythema present. This is on the right foot. Pulses not well felt. CENTRAL NERVOUS SYSTEM: Alert and oriented x 4, nonfocal exam. SKIN: As described in the right foot abscess/cellulitis problem. LABORATORY DATA: Significant for white count of 24,800, H and H is 11.3 and 35.1, MCH is 27, segs are 84%. Protime is 15.5, INR is 1.24. Sodium is 135, potassium is 4.0, chloride is 88.8, bicarbonate is 26, BUN and creatinine is 28 and 2.4, glucose is 170. LFTs are normal. C-reactive protein is 33.40. A1c is pending. Foot x-ray and Doppler scan of the lower extremities and duplex scan of the right foot shows no acute or chronic deep venous thrombosis in either lower extremity. Foot x-ray is consistent with soft tissue infection, no osteomyelitis identified. Chest x-ray was normal. Labs as mentioned, white count is around 24,000. ASSESSMENT AND PLAN: 1. Right foot cellulitis versus gas gangrene ____ right foot cellulitis and abscess. Gas gangrene is the possibility. The patient started on IV vancomycin and IV Zosyn. Also, vascular surgery consult and ID consult requested. The patient may need abscess drainage. If necessary, we will call surgery consult. 2. Hypertension, reasonably well controlled. Blood pressure is 137/68 and 102/58. Continue losartan. 3. Insulin-dependent diabetes. The patient is on Lantus 50 units at nighttime and 70/30 20 units in the daytime. Continue the same and adjust the dosage. A1c ordered. 4. Chronic obstructive pulmonary disease/asthma. Continue Advair and Brovana. 5. Hypothyroidism. Continue Synthroid 200 mcg p.o. daily. 6. Chronic kidney disease. Dr. Sarmiento and hardware sales assistant on-call consulted. IV fluids for the time being. 7. Deep venous thrombosis prophylaxis, Lovenox 40 mg subcutaneous daily. ADDENDUM: Glipizide stopped because the patient is on the insulin. Does not need to take glipizide anymore. Also, metformin stopped because of the renal function. Wound Care consult requested. JOB# [id number] VSM/NTS
[2016-09-11] MEDS ORDERED: FLUARIX QUAD 2016-2017(36 MOS+) IM ONE (12:00)
--- NOTE | 2016-09-11 12:24 | Cat Scan Report ---
CT RIGHT LOWER EXTREMITY (ANKLE AND FOOT) WITHOUT CONTRAST: 09/11/16 10:01:00 CLINICAL: Cellulitis. Pain and swelling. TECHNIQUE: Volumetric acquisition and 1.25 mm axial scan reconstructions of the distal lower leg, ankle and foot without contrast. Sagittal and coronal reformats were performed. FINDINGS: Diffuse subcutaneous soft tissue edema of the lower leg, ankle and foot. Focal fluid on the dorsum of the forefoot overlying the third, fourth and fifth metatarsals. There is extensive air in the superficial and deep soft tissues with the greatest amount of air surrounding the fourth toe. No erosive changes in the bones. No fracture or dislocation. No foreign body. IMPRESSION: Superficial abscess of the lateral forefoot and deep soft tissue infection of the forefoot and involving the third, fourth and fifth toes. No definitive signs of osteomyelitis. However, early osteomyelitis cannot be excluded.
--- NOTE | 2016-09-11 13:22 | Consultation ---
History of Present Illness - Reason for Consult Consult date: 09/11/16 right foot gangrene Requesting physician: ANDERSON ZAMARRIPA - History of Present Illness This is an unfortunate 56 year old woman with diabetes mellitus, hypertension, Asthma, peripheral neuropathy and hypothyroidism. Patient reports that on Sunday09/04/16 she was given an antibiotic for presumed ear infection. She was developing right foot swelling but without open wounds. On Sunday night she soaked her feet in warm water. She woke up on Sunday with mal-odorous drainage coming from her right foot with a developing edema. She also noticed her right foot 4th digit becoming discolored. CT scan of the right foot revealed superficial abscess of the lateral forefoot and deep soft tissue infection of 3rd, 4th and 5th digits. wbc was 24.8 and creatinine of 2.4. Infectious disease was called to evaluate Past History Past Medical History: CAD, COPD, diabetes, hypothyroidism Past Surgical History: No surgical history Social history: denies: smoking, alcohol abuse Medications and Allergies Allergies Allergy/AdvReac Type Severity Reaction Status Date / Time latex Allergy Unknown Verified 01/26/15 16:14 shellfish derived Allergy Anaphylaxis Verified 01/26/15 16:14 strawberry Allergy Anaphylaxis Verified 01/26/15 16:14 tomato Allergy Anaphylaxis Verified 01/26/15 16:14 nuts Allergy Anaphylaxis Uncoded 01/26/15 16:14 Home Medications Medication Instructions Recorded Confirmed Last Taken Type Albuterol Sulfate [Ventolin HFA] 2 puff IH Q4H PRN 01/29/14 09/10/16 02/01/15 History Levothyroxine [Synthroid] 200 mcg PO QAM 01/29/14 09/10/16 02/01/15 History Losartan/Hydrochlorothiazide 1 each PO QDAY 01/29/14 09/10/16 02/02/15 10:00 History [Hyzaar 100-12.5] glipiZIDE [Glipizide Xl] 10 mg PO BID 01/29/14 09/10/16 02/01/15 History metFORMIN [Glucophage] 1,000 mg PO BID 01/29/14 09/10/16 02/01/15 History Cetirizine HCl [ZyrTEC] 10 mg PO DAILY 01/26/15 09/10/16 01/31/15 History Fluticasone/Salmeterol [Advair 1 each IH PRN PRN 01/26/15 09/10/16 02/02/15 10: 00 History 250-50 Diskus] Furosemide [Lasix] 10 mg PO QDAY 01/26/15 09/10/16 02/01/15 History Insulin Glargine [Lantus] 50 unit SUB-Q QHS 01/26/15 09/10/16 02/01/15 History Insulin NPH Hum/Reg Insulin Hm 10 - 50 unit SQ QAM 01/26/15 09/10/16 01/31/15 History [HumuLIN 70-30 Vial] Tramadol HCl [traMADol] 50 mg PO PRN PRN 01/26/15 09/10/16 01/31/15 History HYDROcodone/APAP 5-325 [[place] 2 each PO Q6H PRN #30 tablet 02/03/15 09/10/16 Unknown Rx 5-325 mg TAB] Active Meds: Active Medications Acetaminophen (Tylenol) 650 mg PO Q4H PRN PRN Reason: Pain MILD(1-3)/Fever >100.5/MARTÍNEZ Acetaminophen/Hydrocodone Bitart ([place] 5/325) 2 each PO Q6H PRN PRN Reason: Moderate Pain Last Admin: 09/11/16 06:26 Dose: 2 each Albuterol (Proventil) 2.5 mg IH Q4HRT PRN PRN Reason: Shortness Of Breath Arformoterol Tartrate (Brovana Nebu) 15 mcg IH Q12HRT [facility] Last Admin: 09/11/16 08:31 Dose: 15 mcg Bisacodyl (Dulcolax) 10 mg [place] QDAY PRN PRN Reason: Constipation unrelieved by MOM Budesonide (Pulmicort) 0.5 mg IH Q12HRT [facility] Last Admin: 09/11/16 08:31 Dose: 0.5 mg Piperacillin Sod/Tazobactam Sod (Zosyn/Ns 2.25 Gm/50ml) 50 mls @ 100 mls/hr IV Q8HR [facility] PRN Reason: Protocol Sodium Chloride (Nacl 0.45% 1000 Ml) 1,000 mls @ 100 mls/hr IV DIRECT [facility] Vancomycin HCl 1,250 mg/ (Sodium Chloride) 250 mls @ 166.667 mls/hr IV Q24H [facility] Insulin Detemir (Levemir) 50 units SUB-Q QHS [facility] Last Admin: 09/10/16 22:30 Dose: 50 units Insulin Human Isoph/Insulin Regular (Novolin 70/30) 20 unit SUB-Q BIDDIAB [facility] Stop: 09/11/16 17:00 Last Admin: 09/11/16 09:50 Dose: Not Given Insulin Human Isoph/Insulin Regular (Novolin 70/30) 20 unit SUB-Q QDDIAB [facility] Levothyroxine Sodium (Synthroid) 200 mcg PO QAM@0600 [facility] Last Admin: 09/11/16 06:22 Dose: 200 mcg Loratadine (Claritin) 10 mg PO DAILY [facility] Last Admin: 09/11/16 09:51 Dose: 10 mg Morphine Sulfate (Morphine) 2 mg IV Q4H PRN PRN Reason: Pain, Moderate (4-6) Ondansetron HCl (Zofran) 4 mg IV Q8H PRN PRN Reason: N/V unrelieved by Reglan Oxycodone/Acetaminophen (Percocet 5/325) 1 tab PO Q6H PRN PRN Reason: Pain, Moderate (4-6) Tramadol HCl (Ultram) 50 mg PO DAILY PRN PRN Reason: Pain Vancomycin HCl (Vancomycin Pharmacy To Dose) 1 each IV PKCONSULT [facility] PRN Reason: Protocol Last Admin: 09/11/16 09:52 Dose: 1 each Review of Systems Constitutional: no weight loss, no weight gain, no fever, no chills, no sweats, no fatigue, no weakness Ears, nose, mouth and throat: no ear pain, no tinnitis, no decreased hearing, no nose pain, no mouth pain, no dysphagia Breasts: deferred Cardiovascular: no chest pain, no orthopnea, no palpitations, no shortness of breath, no dyspnea on exertion Respiratory: no cough, no cough with sputum, no excessive sputum, no congestion , no wheezing Gastrointestinal: no abdominal pain, no nausea, no vomiting, no diarrhea, no melena, no hematochezia Genitourinary Female: no dysmenorrhea, no pelvic pain, no flank pain Rectal: no pain, no incontinence Musculoskeletal: no neck pain, no shooting arm pain Integumentary: sores, lesions, darkening of skin, no pruritis, no jaundice Physical Examination - Constitutional Vitals: Selected Entries 09/11/16 09/11/16 08:00 08:45 Temperature 98.2 F Pulse Rate [ 84 Posterior Bilateral Throughout] Respiratory 22 Rate Respiratory 18 Rate [Posterior Bilateral Throughout] Blood Pressure 111/59 [Left Arm] Blood Pressure 76 Mean [Left Arm] General appearance: Present: no acute distress, well-nourished, obese - EENT Eyes: Present: PERRL, EOM intact. Absent: scleral icterus, conjunctival injection ENT: hearing intact, clear oral mucosa, dentition normal - Neck Neck: Present: supple, normal ROM. Absent: enlarged thyroid, masses or JVD - Respiratory Respiratory: bilateral: CTA - Cardiovascular Rhythm: regular Heart Sounds: Present: S1 & S2 - Extremities Extremities: no ischemia Extremity abnormal: edema, black (bilateral hyperpigmented changes worse on right with right 4th to black), other (large blister on the dorsum of the right foot) - Abdominal General gastrointestinal: Present: soft, non-tender, normal bowel sounds Female genitourinary: Present: deferred - Rectal Rectal Exam: deferred - Integumentary Integumentary: Present: clear, warm, dry Results - Labs CBC & Chem 7: 09/11/16 05:24 09/11/16 05:24 Labs: Microbiology 09/10/16 13:04 Peripheral/Venous Blood Culture - Preliminary Culture in Progress 09/10/16 12:25 Peripheral/Venous Blood Culture - Preliminary Culture in Progress Laboratory Tests 09/10/16 09/10/16 09/10/16 12:25 12:25 12:25 WBC 24.8 H Plt Count INR 1.24 H Creatinine Lactic Acid 2.3 H* 09/10/16 09/11/16 09/11/16 15:10 05:24 05:24 WBC 20.3 H Plt Count 281 INR Creatinine 3.6 H Lactic Acid 1.5 Assessment and Plan Antibiotics 1) vancomycin 1250mg iv Q24H (09/10 2) Zosyn 2.25gm iv Q8H (09/10- This is a 56 year old woman with diabetes mellitus, hypertension and COPD, she presented on 09/10/16 with right foot swelling, mal-odorous drainage from the 4th and 3rd digit, fluid filled blister on the dorsum of the foot. The 4th digit is black. Patient has leukocytosis and acute renal failure 1) Right foot 4th digit gangrene with associated maceration. Mal-odorous drainage suggesting possible anaerobes, suspect polymicrobial infection. Unfortunately the 4th digit is not salvageable. 2) diabetic skin and soft tissue infection with associated gangrene. 3) leukocytosis, reactive to above infection 4) renal failure, unclear if this is chronic or acute secondary to current infection Plan 1) obtain orthopedic surgery consult 2) continue vancomycin and zosyn in view of this being a diabetic associated infection 3) wound culture was done by me 4) pharmacy to monitor vancomycin level, will adjust antibiotics based on culture results.
--- NOTE | 2016-09-11 13:25 | Consultation ---
History of Present Illness - HPI Consult reason: other Past History Past Medical History: CAD, COPD, diabetes, hypothyroidism Past Surgical History: No surgical history Social history: denies: smoking, alcohol abuse Medications and Allergies Allergies Allergy/AdvReac Type Severity Reaction Status Date / Time latex Allergy Unknown Verified 01/26/15 16:14 shellfish derived Allergy Anaphylaxis Verified 01/26/15 16:14 strawberry Allergy Anaphylaxis Verified 01/26/15 16:14 tomato Allergy Anaphylaxis Verified 01/26/15 16:14 nuts Allergy Anaphylaxis Uncoded 01/26/15 16:14 Home Medications Medication Instructions Recorded Confirmed Last Taken Type Albuterol Sulfate [Ventolin HFA] 2 puff IH Q4H PRN 01/29/14 09/10/16 02/01/15 History Levothyroxine [Synthroid] 200 mcg PO QAM 01/29/14 09/10/16 02/01/15 History Losartan/Hydrochlorothiazide 1 each PO QDAY 01/29/14 09/10/16 02/02/15 10:00 History [Hyzaar 100-12.5] glipiZIDE [Glipizide Xl] 10 mg PO BID 01/29/14 09/10/16 02/01/15 History metFORMIN [Glucophage] 1,000 mg PO BID 01/29/14 09/10/16 02/01/15 History Cetirizine HCl [ZyrTEC] 10 mg PO DAILY 01/26/15 09/10/16 01/31/15 History Fluticasone/Salmeterol [Advair 1 each IH PRN PRN 01/26/15 09/10/16 02/02/15 10: 00 History 250-50 Diskus] Furosemide [Lasix] 10 mg PO QDAY 01/26/15 09/10/16 02/01/15 History Insulin Glargine [Lantus] 50 unit SUB-Q QHS 01/26/15 09/10/16 02/01/15 History Insulin NPH Hum/Reg Insulin Hm 10 - 50 unit SQ QAM 01/26/15 09/10/16 01/31/15 History [HumuLIN 70-30 Vial] Tramadol HCl [traMADol] 50 mg PO PRN PRN 01/26/15 09/10/16 01/31/15 History HYDROcodone/APAP 5-325 [[place] 2 each PO Q6H PRN #30 tablet 02/03/15 09/10/16 Unknown Rx 5-325 mg TAB] Active Meds: Active Medications Acetaminophen (Tylenol) 650 mg PO Q4H PRN PRN Reason: Pain MILD(1-3)/Fever >100.5/MARTÍNEZ Acetaminophen/Hydrocodone Bitart ([place] 5/325) 2 each PO Q6H PRN PRN Reason: Moderate Pain Last Admin: 09/11/16 06:26 Dose: 2 each Albuterol (Proventil) 2.5 mg IH Q4HRT PRN PRN Reason: Shortness Of Breath Arformoterol Tartrate (Brovana Nebu) 15 mcg IH Q12HRT [facility] Last Admin: 09/11/16 08:31 Dose: 15 mcg Bisacodyl (Dulcolax) 10 mg [place] QDAY PRN PRN Reason: Constipation unrelieved by MOM Budesonide (Pulmicort) 0.5 mg IH Q12HRT [facility] Last Admin: 09/11/16 08:31 Dose: 0.5 mg Piperacillin Sod/Tazobactam Sod (Zosyn/Ns 2.25 Gm/50ml) 50 mls @ 100 mls/hr IV Q8HR [facility] PRN Reason: Protocol Sodium Chloride (Nacl 0.45% 1000 Ml) 1,000 mls @ 100 mls/hr IV DIRECT [facility] Vancomycin HCl 1,250 mg/ (Sodium Chloride) 250 mls @ 166.667 mls/hr IV Q24H [facility] Insulin Detemir (Levemir) 50 units SUB-Q QHS [facility] Last Admin: 09/10/16 22:30 Dose: 50 units Insulin Human Isoph/Insulin Regular (Novolin 70/30) 20 unit SUB-Q BIDDIAB [facility] Stop: 09/11/16 17:00 Last Admin: 09/11/16 09:50 Dose: Not Given Insulin Human Isoph/Insulin Regular (Novolin 70/30) 20 unit SUB-Q QDDIAB [facility] Levothyroxine Sodium (Synthroid) 200 mcg PO QAM@0600 [facility] Last Admin: 09/11/16 06:22 Dose: 200 mcg Loratadine (Claritin) 10 mg PO DAILY [facility] Last Admin: 09/11/16 09:51 Dose: 10 mg Morphine Sulfate (Morphine) 2 mg IV Q4H PRN PRN Reason: Pain, Moderate (4-6) Ondansetron HCl (Zofran) 4 mg IV Q8H PRN PRN Reason: N/V unrelieved by Reglan Oxycodone/Acetaminophen (Percocet 5/325) 1 tab PO Q6H PRN PRN Reason: Pain, Moderate (4-6) Tramadol HCl (Ultram) 50 mg PO DAILY PRN PRN Reason: Pain Vancomycin HCl (Vancomycin Pharmacy To Dose) 1 each IV PKCONSULT [facility] PRN Reason: Protocol Last Admin: 09/11/16 09:52 Dose: 1 each Assessment and Plan - Patient Problems (1) Diabetic infection of right foot Current Visit: Yes Status: Acute Plan to address problem: Need debridment. will schedule for tomorrow.
[2016-09-11] MEDS ORDERED: HEPARIN SUB-Q SCH (14:00)
[2016-09-11] MEDS: ZOSYN/NS 2.25 GM/50ML 50 ML IV SCH ×2 (15:05→22:42)
--- NOTE | 2016-09-11 16:53 | Consultation ---
History of Present Illness - Reason for Consult Consult date: 09/11/16 acute renal failure Requesting physician: ANDERSON ZAMARRIPA - History of Present Illness This is a 56 year old female with PMH of diabetes mellitus type 2 insulin dependent (also takes metformin), hypertension, and hypothyroidism who presented to [facility] yesterday with complaints of worsening right foot pain and swelling. Patient reports being treated for a suspected ear infection last Sunday09/04/16, prescribed 7 day course of antibiotics (unsure about exact name of antibiotics, states was twice a day dosing, and she only completed 4 days). Patient states she soaked her right foot in water last Sunday and next day she noticed her right foot was mal-odorus with worsening swelling. Patient states she came to [facility] for further evaluation. On admission, SCr level was 2.4 , worsened today to 3.6. Patient denies any known history of kidney problems. Patient does report taking ibuprofen (4-6 tablets per day, last ibuprofen dose 2 months ago, states probably took ibuprofen for a total of 6 months intermittently throughout the past year). Patient states she doesn't take ibuprofen if she has pain medication. We were consulted to evaluate this patient who has Acute renal failure and nephrology consultation requested for worsening renal function. Patient reports about 29 year history of diabetes mellitus type 2 and hypertension. Patient takes Losartan-HCTZ and Lasix. Past History Past Medical History: CAD, COPD, diabetes, hypothyroidism Past Surgical History: No surgical history Social history: denies: smoking, alcohol abuse Medications and Allergies Allergies Allergy/AdvReac Type Severity Reaction Status Date / Time latex Allergy Unknown Verified 01/26/15 16:14 shellfish derived Allergy Anaphylaxis Verified 01/26/15 16:14 strawberry Allergy Anaphylaxis Verified 01/26/15 16:14 tomato Allergy Anaphylaxis Verified 01/26/15 16:14 nuts Allergy Anaphylaxis Uncoded 01/26/15 16:14 Home Medications Medication Instructions Recorded Confirmed Last Taken Type Albuterol Sulfate [Ventolin HFA] 2 puff IH Q4H PRN 01/29/14 09/10/16 02/01/15 History Levothyroxine [Synthroid] 200 mcg PO QAM 01/29/14 09/10/16 02/01/15 History Losartan/Hydrochlorothiazide 1 each PO QDAY 01/29/14 09/10/16 02/02/15 10:00 History [Hyzaar 100-12.5] glipiZIDE [Glipizide Xl] 10 mg PO BID 01/29/14 09/10/16 02/01/15 History metFORMIN [Glucophage] 1,000 mg PO BID 01/29/14 09/10/16 02/01/15 History Cetirizine HCl [ZyrTEC] 10 mg PO DAILY 01/26/15 09/10/16 01/31/15 History Fluticasone/Salmeterol [Advair 1 each IH PRN PRN 01/26/15 09/10/16 02/02/15 10: 00 History 250-50 Diskus] Furosemide [Lasix] 10 mg PO QDAY 01/26/15 09/10/16 02/01/15 History Insulin Glargine [Lantus] 50 unit SUB-Q QHS 01/26/15 09/10/16 02/01/15 History Insulin NPH Hum/Reg Insulin Hm 10 - 50 unit SQ QAM 01/26/15 09/10/16 01/31/15 History [HumuLIN 70-30 Vial] Tramadol HCl [traMADol] 50 mg PO PRN PRN 01/26/15 09/10/16 01/31/15 History HYDROcodone/APAP 5-325 [[place] 2 each PO Q6H PRN #30 tablet 02/03/15 09/10/16 Unknown Rx 5-325 mg TAB] Active Meds: Active Medications Acetaminophen (Tylenol) 650 mg PO Q4H PRN PRN Reason: Pain MILD(1-3)/Fever >100.5/MARTÍNEZ Acetaminophen/Hydrocodone Bitart ([place] 5/325) 2 each PO Q6H PRN PRN Reason: Moderate Pain Last Admin: 09/11/16 06:26 Dose: 2 each Albuterol (Proventil) 2.5 mg IH Q4HRT PRN PRN Reason: Shortness Of Breath Arformoterol Tartrate (Brovana Nebu) 15 mcg IH Q12HRT [facility] Last Admin: 09/11/16 08:31 Dose: 15 mcg Bisacodyl (Dulcolax) 10 mg [place] QDAY PRN PRN Reason: Constipation unrelieved by MOM Budesonide (Pulmicort) 0.5 mg IH Q12HRT [facility] Last Admin: 09/11/16 08:31 Dose: 0.5 mg Piperacillin Sod/Tazobactam Sod (Zosyn/Ns 2.25 Gm/50ml) 50 mls @ 100 mls/hr IV Q8HR [facility] PRN Reason: Protocol Sodium Chloride (Nacl 0.45% 1000 Ml) 1,000 mls @ 100 mls/hr IV DIRECT [facility] Vancomycin HCl 1,250 mg/ (Sodium Chloride) 250 mls @ 166.667 mls/hr IV Q24H [facility] Insulin Detemir (Levemir) 50 units SUB-Q QHS [facility] Last Admin: 09/10/16 22:30 Dose: 50 units Insulin Human Isoph/Insulin Regular (Novolin 70/30) 20 unit SUB-Q BIDDIAB [facility] Stop: 09/11/16 17:00 Last Admin: 09/11/16 09:50 Dose: Not Given Insulin Human Isoph/Insulin Regular (Novolin 70/30) 20 unit SUB-Q QDDIAB [facility] Levothyroxine Sodium (Synthroid) 200 mcg PO QAM@0600 [facility] Last Admin: 09/11/16 06:22 Dose: 200 mcg Loratadine (Claritin) 10 mg PO DAILY [facility] Last Admin: 09/11/16 09:51 Dose: 10 mg Morphine Sulfate (Morphine) 2 mg IV Q4H PRN PRN Reason: Pain, Moderate (4-6) Ondansetron HCl (Zofran) 4 mg IV Q8H PRN PRN Reason: N/V unrelieved by Reglan Oxycodone/Acetaminophen (Percocet 5/325) 1 tab PO Q6H PRN PRN Reason: Pain, Moderate (4-6) Tramadol HCl (Ultram) 50 mg PO DAILY PRN PRN Reason: Pain Vancomycin HCl (Vancomycin Pharmacy To Dose) 1 each IV PKCONSULT [facility] PRN Reason: Protocol Last Admin: 09/11/16 09:52 Dose: 1 each Review of Systems Constitutional: fatigue, weakness, poor appetite, no fever Ears, nose, mouth and throat: ear pain, no epistaxis, no sore throat, no headache Cardiovascular: no chest pain, no shortness of breath, no dyspnea on exertion Respiratory: no shortness of breath, no dyspnea on exertion Gastrointestinal: nausea, loss of appetite, no abdominal pain, no vomiting, no diarrhea, no constipation, no hematemesis Genitourinary Female: no dysuria, no hematuria Musculoskeletal: other (right foot swelling and pain) Integumentary: wounds (right foot wound and swelling) Neurological: other (intermittent dizziness), no paralysis, no seizures, no syncope, no headaches Psychiatric: no anxiety, no depression Endocrine: fatigue (history of diabetes mellitus type 2) Exam - Vital Signs Vital signs: Vital Signs Temp Pulse BP Pulse Ox 99.0 F 113 H 146/86 98 09/10/16 10:19 09/10/16 10:19 09/10/16 10:19 09/10/16 10:19 - General Appearance General appearance: well-developed (no acute distress) EENT: ATNC Neck: Present: neck supple Respiratory: Clear to Ascultation Heart: regular, S1S2 Gastrointestinal: Present: normoactive bowel sounds. Absent: tenderness, distended Integumentary: ulcer (right foot wound/swelling noted) Neurologic: alert and oriented x3 Musculoskeletal: Present: other (right foot swelling/wound noted) Psychiatric: mood/affect appropriate, cooperative Results - Lab Results 09/11/16 05:24 09/11/16 05:24 Most recent lab results Calcium 8.5 mg/dL (8.4-10.2) 09/11/16 05:24 Assessment and Plan - Patient Problems (1) Acute renal failure (ARF) Current Visit: Yes Status: Acute Plan to address problem: Renal function reviewed, SCr level worsened to 3.6 today, yesterday's SCr level was 2.4 Exact SCr baseline unknown Acute Renal Failure- exact etiology unclear, possibly prerenal/ATN, cannot rule out Acute Interstitial Nephritis in setting of NSAIDs use, worsened in setting of ARBs, diuretics, and metformin, rule out obstructive nephropathy Obtain outside medical records from PCP for further evaluation of baseline renal function On 0.45% NS infusion at 100 ml/hr Renally dose medications Obtain renal ultrasound to evaluate for obstructive nephropathy Obtain urine lytes/studies Obtain urine eosinophils Blood cultures negative at 24 hours Avoid nephrotoxic agents Obtain daily weight Strict intake and output Renal plan discussed with Dr Schultz Continue supportive therapy (2) Diabetic infection of right foot Current Visit: Yes Status: Acute Plan to address problem: As per Infectious Disease and Orthopedic surgery Currently on Zosyn and Vancomycin Ortho planning on debridement tomorrow (3) Diabetes mellitus type 2, insulin dependent Current Visit: Yes Status: Acute Plan to address problem: As per primary team On insulin
[2016-09-11] MEDS ORDERED: VANCOMYCIN VIAL 1,250 MG in NACL 0.9% 250ML 250 ML IV SCH (22:00)
[2016-09-11] MEDS ORDERED: VANCOMYCIN VIAL 2,000 MG in NACL 0.9% 500 ML 500 ML IV SCH (22:00)
[2016-09-11] MEDS: LEVEMIR SUB-Q SCH (22:41)
[2016-09-12] MEDS: NORCO 5/325 PO PRN ×2 (00:46→10:08)
--- NOTE | 2016-09-12 01:29 | Consultation ---
REASON FOR CONSULTATION: Evaluation of infection, right foot. HISTORY OF PRESENT ILLNESS: This is a 56-year-old female admitted because of swelling and redness over the dorsal aspect of right foot, noticed over few weeks. She is known with diabetes mellitus, poorly controlled and with neuropathy, bilateral feet. She is being treated for " and was seen by Dr. Andrews, v belt builder approximately a month ago. She has an appointment coming week. Because of foot swelling, she was admitted and orthopedic consultation requested for evaluation of infection. PHYSICAL EXAMINATION: Confirms an obese female. Vital signs are stable. Right foot has moderate swelling involving the dorsal aspect with fluctuation consistent with abscess formation. There is dark discoloration of the fourth toe consistent with her diabetic gangrene, peripheral neuropathy bilaterally. Pulses faintly palpated. X-RAYS: CT scan of the foot shows soft tissue swelling over the dorsal foot right side, no obvious bony involvement. DIAGNOSES: Diabetic infection with abscess formation and gangrene fourth toe. RECOMMENDATIONS: Continue with elevation, antibiotics and medical management of diabetes. We will need debridement of the foot with open wound management. Most likely. she will lose the fourth toe and the possibility of a higher level amputation is somewhat significantly high. I have discussed these outcomes with the patient, she understands it and we will tentatively schedule for debridement of the foot for tomorrow as under anesthesia. I thank you for this consultation. JOB# [id number] ANIL/BRONW
[2016-09-12] MEDS: ZOSYN/NS 2.25 GM/50ML 50 ML IV SCH ×4 (05:47→23:14)
[2016-09-12] MEDS: SYNTHROID PO SCH (05:47)
[2016-09-12 06:35] LABS: Basophils % (Auto) 0.4 % (0.0-1.8); Eosinophils % (Auto) 0.9 % (0.0-4.3); Hematocrit 31.4 % (30.3-42.9); Hemoglobin 10.4 gm/dl (10.1-14.3); Mean Corpuscular HGB Conc 33 % (30-34); Mean Corpuscular Hemoglobin 28 pg (28-32); Mean Corpuscular Volume 83 fl (79-97); Platelet Count 302 K/mm3 (140-440); Red Blood Count 3.77 M/mm3 (3.65-5.03); Red Cell Distribution Width 14.5 % (13.2-15.2); White Blood Count 16.5 K/mm3 (4.5-11.0)
[2016-09-12 06:49] LABS: Magnesium 2.1 mg/dL (1.7-2.3); Phosphorous 4.4 mg/dL (2.5-4.5)
[2016-09-12 06:50] LABS: BUN/Creatinine Ratio 15.65; Calcium 8.6 mg/dL (8.4-10.2); Chloride 94.7 mmol/L (98-107); Potassium 3.7 mmol/L (3.6-5.0)
[2016-09-12] MEDS: BROVANA NEBU IH SCH ×2 (07:46→20:06)
[2016-09-12] MEDS: PULMICORT IH SCH ×2 (07:46→20:06)
[2016-09-12] MEDS: CLARITIN PO SCH (10:08)
--- NOTE | 2016-09-12 10:30 | Progress Note ---
Assessment and Plan (1) Acute renal failure (ARF) Current Visit: Yes Status: Acute Plan to address problem: Acute Renal Failure- exact etiology unclear, possibly prerenal/ATN, cannot rule out Acute Interstitial Nephritis in setting of NSAIDs use, worsened in setting of ARBs, diuretics improved creatinine since yesterday, cont gentle hydration Renally dose medications renal US is pending Avoid nephrotoxic agents Obtain daily weight Strict intake and output (2) Diabetic infection of right foot Current Visit: Yes Status: Acute Plan to address problem: As per Infectious Disease and Orthopedic surgery Currently on Zosyn and Vancomycin Ortho planning on debridement today (3) Diabetes mellitus type 2, insulin dependent Current Visit: Yes Status: Acute Plan to address problem: As per primary team On insulin Subjective Date of service: 09/12/16 Principal diagnosis: acute renal failure Interval history: cont to have pain in her foot Objective - Vital Signs Vital signs: Vital Signs - 12hr 09/12/16 09/12/16 00:00 08:00 Temperature 99.0 F 98.2 F Pulse Rate [ 83 Left Radial] Pulse Rate [ 86 Right Radial] Respiratory 24 20 Rate Blood Pressure 118/70 137/77 [Left Arm] O2 Sat by Pulse 97 100 Oximetry - General Appearance General appearance: well-developed, obese EENT: ATNC, PERRL, mucous membranes moist Neck: no JVD, supple Respiratory: Present: Clear to Ascultation, Normal Exam Cardiology: regular, S1S2 Gastrointestinal: normoactive bowel sounds, no tenderness, no distended Integumentary: no rash, warm and dry Neurologic: no focal deficit, no asterixis, alert and oriented x3 Musculoskeletal: other (pitting edema in RLE) Psychiatric: mood/affect appropriate, cooperative - Lab 09/12/16 05:30 09/12/16 05:30 Most recent lab results Calcium 8.6 mg/dL (8.4-10.2) 09/12/16 05:30 Phosphorus 4.4 mg/dL (2.5-4.5) 09/12/16 05:30 Magnesium 2.1 mg/dL (1.7-2.3) 09/12/16 05:30
[2016-09-12] MEDS ORDERED: DIPRIVAN 10 MG/ML IV ONE ×3 (11:31→13:45)
[2016-09-12] MEDS ORDERED: SUBLIMAZE ONE (11:31)
[2016-09-12] MEDS ORDERED: XYLOCAINE MPF 2% ONE (11:34)
--- NOTE | 2016-09-12 11:46 | Ultrasound Report ---
ULTRASOUND RENAL BILATERAL HISTORY: Acute renal failure. TECHNIQUE: transabdominal ultrasound with color Doppler interrogation. FINDINGS: The right kidney measures 11.3 x 4.8 x 10.2cm. Right renal cortex: 1.5cm. The left kidney measures 12.5 x 6.3 x 7.0cm. Left renal cortex: 1.9cm. Scans of the kidneys show normal renal contours. There is normal central calyceal clustering and good preservation of the cortical thickness. There is no evidence of mass or hydronephrosis. There is moderate debris within the bladder. The bladder wall is unremarkable. No filling defect or calculus. IMPRESSION: Unremarkable renal ultrasound. Debris within the bladder. Correlate for cystitis.
--- NOTE | 2016-09-12 11:48 | Admit Criteria Form ---
Admission Criteria Documentation: WOUND COMPLICATIONS Clinical Indications for Inpatient Care (Place 'X' for any and all applicable criteria): Ongoing inpatient care may be indicated for wound complications with ANY ONE of the following (1) (15): [X ]I. Infection with ANY ONE of the following(32)(33): [ ]a) Temperature greater than 38.5 C (101.3 F) [ ]b) Evidence of tissue necrosis [ ]c) Erythema diameter expanding around wound despite treatment [ ]d) Mental status changes [ ]e) Dehydration [ ]f) Bacteremia [ ]g) Hemodynamic instability [ ]h) Suspected necrotizing fasciitis [ ]i) Rapidly spreading lesions [ ]j) High-risk location (eg, perineum, sternum, orbit) [ X]k) High-risk coexisting clinical condition as indicated by ANY ONE of the following: [ X]i) Poorly controlled diabetes [ ]ii) Cirrhosis [X ]iii) Renal failure [ ]iv) Neutropenia [ ] v) Asplenia [ ]vi) Immunosuppression (eg, AIDS, chronic corticosteroid use) [ ]viii) Other high-risk medical comorbidities [ ] II. Dehiscence requiring frequent monitoring or immediate treatment [ ] III. Hematoma with ANY ONE of the following: [ ]a) Hemodynamic instability or acute anemia due to rapid development of hematoma [ ]b) Neck hematoma causing airway compression [ ]c) Retroperitoneal hematoma [ ]d) Uncontrolled coagulopathy [ ]IV. Seroma with evidence of secondary infection and requirement for IV antibiotics [D](31) [ ]V. Pain that cannot be managed at lower level of care Extended stay beyond goal length of stay for primary condition may be needed until ALL of the following are present(1)(33)(34): [ ]a) Afebrile or fever resolving [ ]b) Hemodynamic stability [ ]c) Pain resolving [ ]d) Wound closed, continuity adequately restored, or wound manageable at lower level of care [ ]e) No drain needed or drain care manageable at lower level of care [ ]f) Wound hematoma or seroma resolving [ ]g) Antibiotics not needed or regimen manageable at lower level of care(38) [ ]h) Dressing care manageable at lower level of care [ ]i) Coagulopathy absent, resolved, or treatable at lower level of care [ ]j) Medical comorbidities resolved or treatable at lower level of care The original [facility] content created by [facility] has been revised. The portions of the content which have been revised are identified through the use of italic text or in bold, and Jose M Pruett has neither reviewed nor approved the modified material. All other unmodified content is copyright [facility]. Please see references footnoted in the original [facility] edition 2016 Admission Criteria Met: Yes
--- NOTE | 2016-09-12 12:22 | Anesthesia Day of Surgery ---
Anesthesia Day of Surgery - Day of Surgery Patient Examined: Yes Patient H&P Reviewed: Yes Patient is NPO: Yes
--- NOTE | 2016-09-12 12:22 | Anesthesia Consultation ---
Anesthesia Consult and Med Hx Date of service: 09/12/16 - Airway Anesthetic Teeth Evaluation: Poor ROM Head & Neck: Adequate Mental/Hyoid Distance: Adequate Mallampati Class: Class II Intubation Access Assessment: Probably Good - Pulmonary Exam CTA: Yes - Cardiac Exam Cardiac Exam: RRR - Pre-Operative Health Status ASA Pre-Surgery Classification: ASA3 Proposed Anesthetic Plan: General - Pulmonary Hx Smoking: Yes (past hx) Hx Asthma: Yes (mild) COPD: No - Cardiovascular System Hx Hypertension: Yes - Central Nervous System Hx Back Pain: Yes Hx Psychiatric Problems: No - Endocrine Hx Insulin Dependent Diabetes: Yes Hx Hypothyroidism: Yes - Other Systems Hx Cancer: No Hx Obesity: Yes (BMI= 51.6)
[2016-09-12] MEDS ORDERED: DILAUDID IV PRN (12:24)
[2016-09-12] MEDS ORDERED: NACL 0.9% 1000 ML 1,000 ML ONE (12:29)
[2016-09-12] MEDS ORDERED: LACTATED RINGERS 1,000 ML IV SCH (13:00)
[2016-09-12] MEDS ORDERED: VERSED IV NR (13:00)
[2016-09-12] MEDS ORDERED: PEPCID IV NR (13:00)
[2016-09-12] MEDS ORDERED: PROAIR IH ONE (13:53)
[2016-09-12] MEDS ORDERED: ZOFRAN ONE (13:56)
[2016-09-12] MEDS ORDERED: DECADRON ONE (13:56)
[2016-09-12] MEDS ORDERED: NEOSPORIN GU IR ONE (14:11)
[2016-09-12] MEDS ORDERED: NACL 0.9% IR ONE (14:12)
[2016-09-12] MEDS ORDERED: D50W (25GM) IV PRN (14:27)
[2016-09-12] MEDS ORDERED: PHENERGAN PR PRN (14:27)
--- NOTE | 2016-09-12 14:27 | Procedure Note ---
Date of procedure: 09/12/16 Pre-op diagnosis: abcess/necrotic toes, right foot Post-op diagnosis: same Procedure: amputation 4 and 5th toes debridment abcess right foot Anesthesia: GETA Surgeon: GIRISH LATIF Estimated blood loss: minimal Pathology: list (toes/cultures) Specimen disposition: to lab Condition: stable Disposition: floor
[2016-09-12] MEDS ORDERED: NACL 0.9% 1000 ML 1,000 ML IV SCH (15:00)
--- NOTE | 2016-09-12 17:14 | Progress Note ---
Assessment and Plan Assessment and plan: 1. Sepsis present on admission secondary to right foot cellulitis versus abscess with gangrene to the toe-vascular consult noted. Orthopedic input appreciated patient for OR today for debridement and possible amputation. ID input also noted. Will continue current IV antibiotics with vancomycin and Zosyn. Pharmacy to adjust vancomycin level. wbc decreasing today. Continue wound care 2. Diabetes type 2-with insulin dependence-continue current insulin regime, cont to monitor glucose 3. Hypothyroidism-cont thyroxine replacement 4. Morbid obesity- life style, modification advised- diet; weight loss and exercise 5. Acute kidney injury on chronic kidney disease stage III-secondary to visible due to nephropathy. Mild improvement noted today. Continue gentle hydration. Nephrology consult appreciated. Patient did use some NSAIDs. Continue to avoid all nephrotoxic medications. Also continue to hold ARB's diuretic. Renal ultrasound. Daily weights and strict ins and outs 6. Diabetic foot infection-present on admission. As noted #1 above. 7. DVT prophylaxis- heparin- will hold in the event that she needs to be debrided Plan discussed with patient. History Interval history: F/U diabetic foot infection Patient seen and examined this morning in no acute distress Denies any chest pain, nausea, vomiting, diarrhea No fever noted blood pressure controlled No adverse events reported to me by nursing staff Hospitalist Physical - Physical exam Narrative exam: VITAL SIGNS: Reviewed. GENERAL: The patient appeared well nourished and normally developed. Vital signs as documented. HEAD: No signs of head trauma. EYES: Pupils are equal. Extraocular motions intact. EARS: Hearing grossly intact. MOUTH: Oropharynx is normal. NECK: No adenopathy, no JVD. CHEST: Chest with clear breath sounds bilaterally. No wheezes, rales, or rhonchi. CARDIAC: Regular rate and rhythm. S1 and S2, without murmurs, gallops, or rubs. VASCULAR: 2+ pitting edema with decreased peripheral pulses worse on the right lower extremity ABDOMEN: Soft, without detectable tenderness. No sign of distention. No rebound or guarding, and no masses palpated. Bowel Sounds normal. MUSCULOSKELETAL: Good range of motion of all major joints. Extremities edema, black (bilateral hyperpigmented changes worse on right with right 4th to black) , other (large blister on the dorsum of the right foot) NEUROLOGIC EXAM: Alert and oriented x 3. No focal sensory or strength deficits. Speech normal. Follows commands. PSYCHIATRIC: Mood normal. SKIN: Large blister dorsum of right with decreased pulses bilaterally. - Constitutional Vitals: Temp Pulse Resp BP Pulse Ox 98.6 F 86 22 129/84 97 09/12/16 15:50 09/12/16 15:50 09/12/16 15:50 09/12/16 15:50 09/12/16 15:50 General appearance: Present: no acute distress, well-nourished, obese Results - Labs CBC & Chem 7: 09/12/16 05:30 09/12/16 05:30 Labs: Laboratory Last Values WBC 16.5 K/mm3 (4.5-11.0) H 09/12/16 05:30 RBC 3.77 M/mm3 (3.65-5.03) 09/12/16 05:30 Hgb 10.4 gm/dl (10.1-14.3) 09/12/16 05:30 Hct 31.4 % (30.3-42.9) 09/12/16 05:30 MCV 83 fl (79-97) 09/12/16 05:30 MCH 28 pg (28-32) 09/12/16 05:30 MCHC 33 % (30-34) 09/12/16 05:30 RDW 14.5 % (13.2-15.2) 09/12/16 05:30 Plt Count 302 K/mm3 (140-440) 09/12/16 05:30 Lymph % (Auto) 11.8 % (13.4-35.0) L 09/12/16 05:30 [place] % (Auto) 8.7 % (0.0-7.3) H 09/12/16 05:30 Eos % (Auto) 0.9 % (0.0-4.3) 09/12/16 05:30 Baso % (Auto) 0.4 % (0.0-1.8) 09/12/16 05:30 Lymph # 1.9 K/mm3 (1.2-5.4) 09/12/16 05:30 Morrow # 1.4 K/mm3 (0.0-0.8) H 09/12/16 05:30 Eos # 0.1 K/mm3 (0.0-0.4) 09/12/16 05:30 Baso # 0.1 K/mm3 (0.0-0.1) 09/12/16 05:30 Add Manual Diff Complete 09/11/16 05:24 Total Counted 100 09/11/16 05:24 Seg Neutrophils % 78.2 % (40.0-70.0) H 09/12/16 05:30 Seg Neuts % (Manual) 80.0 % (40.0-70.0) H 09/11/16 05:24 Band Neutrophils % 0 % 09/11/16 05:24 Lymphocytes % (Manual) 11.0 % (13.4-35.0) L 09/11/16 05:24 Reactive Lymphs % (Man) 0 % 09/11/16 05:24 Monocytes % (Manual) 7.0 % (0.0-7.3) 09/11/16 05:24 Eosinophils % (Manual) 2.0 % (0.0-4.3) 09/11/16 05:24 Basophils % (Manual) 0 % (0.0-1.8) 09/11/16 05:24 Metamyelocytes % 0 % 09/11/16 05:24 Myelocytes % 0 % 09/11/16 05:24 Promyelocytes % 0 % 09/11/16 05:24 Blast Cells % 0 % 09/11/16 05:24 Nucleated RBC % Not Reportable 09/11/16 05:24 Seg Neutrophils # 12.9 K/mm3 (1.8-7.7) H 09/12/16 05:30 Seg Neutrophils # Man 16.2 K/mm3 (1.8-7.7) H 09/11/16 05:24 Band Neutrophils # 0.0 K/mm3 09/11/16 05:24 Lymphocytes # (Manual) 2.2 K/mm3 (1.2-5.4) 09/11/16 05:24 Abs React Lymphs (Man) 0.0 K/mm3 09/11/16 05:24 Monocytes # (Manual) 1.4 K/mm3 (0.0-0.8) H 09/11/16 05:24 Eosinophils # (Manual) 0.4 K/mm3 (0.0-0.4) 09/11/16 05:24 Basophils # (Manual) 0.0 K/mm3 (0.0-0.1) 09/11/16 05:24 Metamyelocytes # 0.0 K/mm3 09/11/16 05:24 Myelocytes # 0.0 K/mm3 09/11/16 05:24 Promyelocytes # 0.0 K/mm3 09/11/16 05:24 Blast Cells # 0.0 K/mm3 09/11/16 05:24 WBC Morphology Not Reportable 09/11/16 05:24 Hypersegmented Neuts Not Reportable 09/11/16 05:24 Hyposegmented Neuts Not Reportable 09/11/16 05:24 Hypogranular Neuts Not Reportable 09/11/16 05:24 Smudge Cells Not Reportable 09/11/16 05:24 Toxic Granulation Not Reportable 09/11/16 05:24 Toxic Vacuolation Not Reportable 09/11/16 05:24 Dohle Bodies Not Reportable 09/11/16 05:24 Pelger-Huet Anomaly Not Reportable 09/11/16 05:24 Nba Rods Not Reportable 09/11/16 05:24 Platelet Estimate Appears normal 09/11/16 05:24 Clumped Platelets Not Reportable 09/11/16 05:24 Plt Clumps, EDTA Not Reportable 09/11/16 05:24 Large Platelets Not Reportable 09/11/16 05:24 Giant Platelets Not Reportable 09/11/16 05:24 Platelet Satelliting Not Reportable 09/11/16 05:24 Plt Morphology Comment Not Reportable 09/11/16 05:24 RBC Morphology Not Reportable 09/11/16 05:24 Dimorphic RBCs Not Reportable 09/11/16 05:24 Polychromasia Few 09/11/16 05:24 Hypochromasia Few 09/11/16 05:24 Poikilocytosis Not Reportable 09/11/16 05:24 Anisocytosis 1+ 09/11/16 05:24 Microcytosis Not Reportable 09/11/16 05:24 Macrocytosis Not Reportable 09/11/16 05:24 Spherocytes Not Reportable 09/11/16 05:24 Pappenheimer Bodies Not Reportable 09/11/16 05:24 Sickle Cells Not Reportable 09/11/16 05:24 Target Cells Rare 09/11/16 05:24 Tear Drop Cells Not Reportable 09/11/16 05:24 Ovalocytes Not Reportable 09/11/16 05:24 Helmet Cells Not Reportable 09/11/16 05:24 [place] Bodies Not Reportable 09/11/16 05:24 [place] Rings Not Reportable 09/11/16 05:24 Barbie Cells Not Reportable 09/11/16 05:24 Bite Cells Not Reportable 09/11/16 05:24 Crenated Cell Not Reportable 09/11/16 05:24 Elliptocytes Not Reportable 09/11/16 05:24 Acanthocytes (Spur) Not Reportable 09/11/16 05:24 Rouleaux Not Reportable 09/11/16 05:24 Hemoglobin C Crystals Not Reportable 09/11/16 05:24 Schistocytes Not Reportable 09/11/16 05:24 Malaria parasites Not Reportable 09/11/16 05:24 ESR 77 mm/Hr (0-20) 09/10/16 12:25 Luis Bodies Not Reportable 09/11/16 05:24 Hem Pathologist Commnt No 09/11/16 05:24 PT 15.5 Sec. (12.2-14.9) H 09/10/16 12:25 INR 1.24 (0.87-1.13) H 09/10/16 12:25 APTT 29.5 Sec. (24.2-36.6) 09/10/16 12:25 Sodium 139 mmol/L (137-145) 09/12/16 05:30 Potassium 3.7 mmol/L (3.6-5.0) 09/12/16 05:30 Chloride 94.7 mmol/L (98-107) L 09/12/16 05:30 Carbon Dioxide 25 mmol/L (22-30) 09/12/16 05:30 Anion Gap 23 mmol/L 09/12/16 05:30 BUN 36 mg/dL (7-17) H 09/12/16 05:30 Creatinine 2.3 mg/dL (0.7-1.2) H 09/12/16 05:30 Estimated GFR 27 ml/min 09/12/16 05:30 BUN/Creatinine Ratio 15.65 % 09/12/16 05:30 Glucose 81 mg/dL (65-100) 09/12/16 05:30 POC Glucose 105 (70-105) 09/12/16 12:08 Lactic Acid 1.5 mmol/L (0.7-2.0) 09/10/16 15:10 Calcium 8.6 mg/dL (8.4-10.2) 09/12/16 05:30 Phosphorus 4.4 mg/dL (2.5-4.5) 09/12/16 05:30 Magnesium 2.1 mg/dL (1.7-2.3) 09/12/16 05:30 Total Bilirubin 0.7 mg/dL (0.1-1.2) 09/11/16 05:24 Direct Bilirubin 0.4 mg/dL (0-0.2) H 09/10/16 12:25 Indirect Bilirubin 0.6 mg/dL 09/10/16 12:25 AST 19 units/L (5-40) 09/11/16 05:24 ALT 16 units/L (7-56) 09/11/16 05:24 Alkaline Phosphatase 61 units/L (35-129) 09/11/16 05:24 C-Reactive Protein 33.40 mg/dL (0.00-1.30) H 09/10/16 12:25 Total Protein 7.9 g/dL (6.3-8.2) 09/11/16 05:24 Albumin 2.8 g/dL (3.9-5) L 09/11/16 05:24 Albumin/Globulin Ratio 0.5 % 09/11/16 05:24 PTH Intact 86.23 pg/mL (15-65) H 09/12/16 05:30 Blood Type B POSITIVE 09/10/16 12:25 Antibody Screen Negative 09/10/16 12:25
--- NOTE | 2016-09-12 21:09 | Operative Report ---
PREOPERATIVE DIAGNOSIS: Diabetic gangrene and abscess, right foot. PROCEDURE: Amputation fourth and fifth toes at the MP joint, irrigation and debridement of foot abscess. SURGEON: Dr. Portillo. ELECTROPHONIC ENGINEER: Beltran Mckee RN. ANESTHESIA: General. COMPLICATIONS: None. DESCRIPTION OF PROCEDURE: Once the patient was in the surgical room, a time-out was carried out to identify the patient and procedure, prepping and draping of the patient done in usual fashion. The procedure was carried out by prepping of the extremity without the tourniquet. Procedure was carried out abscess was perforated and about 100 mL of pus were drained from the foot. Cultures were taken. Once it was done a fishmouth incision was carried out around the fourth toe. Opening this area demonstrated the extensive necrosis of the tissues underneath. This necrosis involved all the base of the fifth toe, the tissues around the MP joint of the fifth toe were completely necrotic, the abscess extended to the dorsum of the foot to the midfoot and also there were some small abscess collection underneath the third toe at the base. All this area was completely opened and debrided and extensively irrigated and cleaned out. Once the amputation of the fourth toe was done at the MP joint and the same thing was carried out with the fifth toe. The wound was extensively irrigated and then loosely approximated with a single stitch of nylon the wound was left open. A compression bandage was applied. JOB# [id number] TERRY/[employer]
[2016-09-12] MEDS ORDERED: VANCOMYCIN VIAL 1,500 MG in NACL 0.9% 500 ML 500 ML IV SCH (22:00)
[2016-09-12] MEDS: LEVEMIR SUB-Q SCH (22:23)
[2016-09-13] MEDS: SYNTHROID PO SCH (05:35)
[2016-09-13] MEDS: ZOSYN/NS 2.25 GM/50ML 50 ML IV SCH (05:35)
[2016-09-13 05:56] LABS: Hemoglobin 9.7 gm/dl (10.1-14.3); Mean Corpuscular HGB Conc 32 % (30-34); Mean Corpuscular Hemoglobin 27 pg (28-32); Mean Corpuscular Volume 85 fl (79-97); Platelet Count 313 K/mm3 (140-440); Red Blood Count 3.53 M/mm3 (3.65-5.03); Red Cell Distribution Width 14.4 % (13.2-15.2); White Blood Count 16.6 K/mm3 (4.5-11.0)
[2016-09-13 06:18] LABS: BUN/Creatinine Ratio 18.33; Calcium 8.4 mg/dL (8.4-10.2); Chloride 96.1 mmol/L (98-107); Potassium 4.3 mmol/L (3.6-5.0)
[2016-09-13] MEDS: BROVANA NEBU IH SCH ×2 (08:00→19:33)
[2016-09-13] MEDS: PULMICORT IH SCH ×2 (08:00→19:33)
--- NOTE | 2016-09-13 08:55 | Progress Note ---
Subjective Date of service: 09/13/16 (anesthesia follow-up) Principal diagnosis: acute renal failure Interval history: To bedside to examine patient. No events over night. Patient denies anesthesia recall, PONV, sore throat, dental or lip damage. No anesthesia complications noted. Objective - Constitutional Vitals: Vital Signs - 12hr 09/12/16 23:00 Temperature 99 F Pulse Rate [ 80 Left Radial] Respiratory 18 Rate Blood Pressure 120/59 [Left Arm] O2 Sat by Pulse 96 Oximetry - Labs CBC & Chem 7: 09/13/16 04:58 09/13/16 04:58 Labs: Abnormal lab results 09/12/16 09/12/16 09/13/16 Range/Units 17:11 21:10 04:58 WBC 16.6 H (4.5-11.0) K/mm3 RBC 3.53 L (3.65-5.03) M/mm3 Hgb 9.7 L (10.1-14.3) gm/dl Hct 30.0 L (30.3-42.9) % MCH 27 L (28-32) pg Chloride (98-107) mmol/L BUN (7-17) mg/dL Creatinine (0.7-1.2) mg/dL Glucose (65-100) mg/dL POC Glucose 131 H 267 H (70-105) 09/13/16 09/13/16 Range/Units 04:58 06:58 WBC (4.5-11.0) K/mm3 RBC (3.65-5.03) M/mm3 Hgb (10.1-14.3) gm/dl Hct (30.3-42.9) % MCH (28-32) pg Chloride 96.1 L (98-107) mmol/L BUN 33 H (7-17) mg/dL Creatinine 1.8 H (0.7-1.2) mg/dL Glucose 207 H (65-100) mg/dL POC Glucose 175 H (70-105)
--- NOTE | 2016-09-13 10:23 | Progress Note ---
Assessment and Plan - Patient Problems (1) Diabetic infection of right foot Current Visit: Yes Status: Acute Plan to address problem: Continue with local wound care, elevation, antibiotics. Patient may be discharged home with outpatient wound care, protected weightbearing, followup with wound clinic for wound care, we'll see her back in the office for followup. Subjective Date of service: 09/13/16 Principal diagnosis: acute renal failure Interval history: Diabetic foot abscess, status post drainage. No specific complaint. Objective Vital signs: Vital Signs - 12hr 09/12/16 09/13/16 09/13/16 23:00 08:00 08:10 Temperature 99 F Pulse Rate [ 80 Left Radial] Pulse Rate [ 86 84 Posterior Bilateral Throughout] Respiratory 18 Rate Respiratory 20 20 Rate [Posterior Bilateral Throughout] Blood Pressure 120/59 [Left Arm] O2 Sat by Pulse 96 Oximetry 09/13/16 08:31 Temperature 98.9 F Pulse Rate [ 84 Left Radial] Pulse Rate [ Posterior Bilateral Throughout] Respiratory 20 Rate Respiratory Rate [Posterior Bilateral Throughout] Blood Pressure 118/57 [Left Arm] O2 Sat by Pulse 94 Oximetry - Labs CBC & BMP: 09/13/16 04:58 09/13/16 04:58 Labs: Abnormal lab results 09/12/16 09/12/16 09/13/16 Range/Units 17:11 21:10 04:58 WBC 16.6 H (4.5-11.0) K/mm3 RBC 3.53 L (3.65-5.03) M/mm3 Hgb 9.7 L (10.1-14.3) gm/dl Hct 30.0 L (30.3-42.9) % MCH 27 L (28-32) pg Chloride (98-107) mmol/L BUN (7-17) mg/dL Creatinine (0.7-1.2) mg/dL Glucose (65-100) mg/dL POC Glucose 131 H 267 H (70-105) 09/13/16 09/13/16 Range/Units 04:58 06:58 WBC (4.5-11.0) K/mm3 RBC (3.65-5.03) M/mm3 Hgb (10.1-14.3) gm/dl Hct (30.3-42.9) % MCH (28-32) pg Chloride 96.1 L (98-107) mmol/L BUN 33 H (7-17) mg/dL Creatinine 1.8 H (0.7-1.2) mg/dL Glucose 207 H (65-100) mg/dL POC Glucose 175 H (70-105)
[2016-09-13] MEDS: CLARITIN PO SCH (10:28)
--- NOTE | 2016-09-13 13:12 | Progress Note ---
Assessment and Plan (1) Acute renal failure (ARF) Current Visit: Yes Status: Acute Plan to address problem: creatinine cont to improve cont gentle IVF Renally dose medications renal US is pending Avoid nephrotoxic agents Obtain daily weight Strict intake and output (2) Diabetic infection of right foot Current Visit: Yes Status: Acute Plan to address problem: As per Infectious Disease and Orthopedic surgery s/p I&D 09/12 on broad spectrum antibiotics (3) Diabetes mellitus type 2, insulin dependent Current Visit: Yes Status: Acute Plan to address problem: As per primary team On insulin Subjective Date of service: 09/13/16 Principal diagnosis: acute renal failure Interval history: tolerated procedure well yesterday Objective - Vital Signs Vital signs: Vital Signs - 12hr 09/13/16 09/13/16 09/13/16 08:00 08:10 08:31 Temperature 98.9 F Pulse Rate [ 84 Left Radial] Pulse Rate [ 86 84 Posterior Bilateral Throughout] Respiratory 20 Rate Respiratory 20 20 Rate [Posterior Bilateral Throughout] Blood Pressure 118/57 [Left Arm] O2 Sat by Pulse 94 Oximetry - General Appearance General appearance: well-developed, well-nourished, obese EENT: ATNC, PERRL, mucous membranes moist Neck: no JVD, no carotid bruit Respiratory: Present: Clear to Ascultation, Normal Exam Cardiology: regular, S1S2 Gastrointestinal: normoactive bowel sounds Integumentary: no rash, warm and dry Neurologic: no focal deficit, no asterixis, alert and oriented x3 Musculoskeletal: deferred Psychiatric: mood/affect appropriate, cooperative - Lab 09/13/16 04:58 09/13/16 04:58 Most recent lab results Calcium 8.4 mg/dL (8.4-10.2) 09/13/16 04:58 Phosphorus 4.4 mg/dL (2.5-4.5) 09/12/16 05:30 Magnesium 2.1 mg/dL (1.7-2.3) 09/12/16 05:30
--- NOTE | 2016-09-13 13:26 | Progress Note ---
Assessment and Plan Antibiotics 1) vancomycin 1250mg iv Q24H (09/10 2) Zosyn 2.25gm iv Q8H (09/10- This is a 56 year old woman with diabetes mellitus, hypertension and COPD, she presented on 09/10/16 with right foot swelling, mal-odorous drainage from the 4th and 3rd digit, fluid filled blister on the dorsum of the foot. The 4th digit is black. Patient has leukocytosis and acute renal failure 1) Right foot 4th digit gangrene with associated maceration. Mal-odorous drainage suggesting possible anaerobes, suspect polymicrobial infection. Unfortunately the 4th digit is not salvageable. -s/p amputation of 4th and 5th digit at the MP joint, debridement of abscess --suspect possible polymicrobial infection especially with malodorous drainage. -superficial culture with gram negatives, gram positives in pairs and clusters 2) diabetic skin and soft tissue infection with associated gangrene. 3) leukocytosis, reactive to above infection 4) renal failure, unclear if this is chronic or acute secondary to current infection Plan 1) continue vancomycin and zosyn 2) will deescalate antibiotics based on culture results, if no MRSA will discontinue vancomycin 3) pharmacy to monitor vancomycin level 4) duration of antibiotics will be based on whether there is infected bone remaining, if no infected bone then treatment only for skin and soft tissue infection Subjective Date of service: 09/13/16 Principal diagnosis: acute renal failure Interval history: Patient reports that she is feeling better, no new complaints Objective - Constitutional Vitals: Selected Entries 09/13/16 08:31 Temperature 98.9 F Pulse Rate [ 84 Left Radial] Respiratory 20 Rate O2 Sat by Pulse 94 Oximetry Blood Pressure 118/57 [Left Arm] Blood Pressure 77 Mean [Left Arm] General appearance: Present: no acute distress, well-nourished, obese - EENT Eyes: PERRL, EOM intact, no scleral icterus, no conjunctival injection ENT: hearing intact, clear oral mucosa - Neck Neck: supple, normal ROM, no enlarged thyroid, no masses or JVD - Respiratory Respiratory effort: normal Respiratory: bilateral: CTA - Breasts Breasts: deferred - Cardiovascular Rhythm: regular Heart Sounds: Present: S1 & S2 Extremities: abnormal (right foot surgical dressings in place) - Gastrointestinal General gastrointestinal: Present: soft, non-tender, normal bowel sounds Rectal Exam: deferred - Genitourinary Female genitourinary: deferred - Labs CBC & Chem 7: 09/13/16 04:58 09/13/16 04:58 Labs: Microbiology 09/12/16 Unknown Foot - Right Surgical Culture - Preliminary 09/11/16 Unknown Foot - Right Wound Culture - Preliminary 09/10/16 13:04 Peripheral/Venous Blood Culture - Preliminary NO GROWTH AFTER 48 HOURS 09/10/16 12:25 Peripheral/Venous Blood Culture - Preliminary NO GROWTH AFTER 48 HOURS Laboratory Tests 09/13/16 09/13/16 04:58 04:58 WBC 16.6 H Plt Count 313 BUN 33 H Creatinine 1.8 H
[2016-09-13] MEDS: ZOSYN/NS 4.5GM/100ML 100 ML IV SCH ×2 (13:30→22:02)
[2016-09-13] MEDS: VANCOMYCIN VIAL 1,750 MG in NACL 0.9% 500 ML 500 ML IV SCH (13:44)
--- NOTE | 2016-09-13 14:45 | Progress Note ---
Assessment and Plan Assessment and plan: 1. Sepsis present on admission secondary to right foot cellulitis versus abscess with gangrene to the toe-vascular consult noted. At this post debridement and fourth and fifth digit MP joints amputation. ID input also noted. Will continue current IV antibiotics with vancomycin and Zosyn. Pharmacy to adjust vancomycin level. wbc decreasing today. Continue wound care 2. Diabetes type 2-with insulin dependence-continue current insulin regime, cont to monitor glucose 3. Hypothyroidism-cont thyroxine replacement 4. Morbid obesity- life style, modification advised- diet; weight loss and exercise 5. Acute kidney injury on chronic kidney disease stage III-secondary to visible due to nephropathy. Mild improvement noted today. Continue gentle hydration. Nephrology consult appreciated. Patient did use some NSAIDs. Continue to avoid all nephrotoxic medications. Also continue to hold ARB's diuretic. Renal ultrasound. Daily weights and strict ins and outs 6. Diabetic foot infection-present on admission. As noted #1 above. 7. DVT prophylaxis- heparin- Plan discussed with patient. History Interval history: F/U diabetic foot infection Patient seen and examined this morning in no acute distress, , denies any pain in the amputated toes area. Dressing in place. Denies any chest pain, nausea, vomiting, diarrhea No fever noted blood pressure controlled No adverse events reported to me by nursing staff Hospitalist Physical - Physical exam Narrative exam: VITAL SIGNS: Reviewed. GENERAL: The patient appeared well nourished and normally developed. Vital signs as documented. HEAD: No signs of head trauma. EYES: Pupils are equal. Extraocular motions intact. EARS: Hearing grossly intact. MOUTH: Oropharynx is normal. NECK: No adenopathy, no JVD. CHEST: Chest with clear breath sounds bilaterally. No wheezes, rales, or rhonchi. CARDIAC: Regular rate and rhythm. S1 and S2, without murmurs, gallops, or rubs. VASCULAR: 2+ pitting edema with decreased peripheral pulses worse on the right lower extremity ABDOMEN: Soft, without detectable tenderness. No sign of distention. No rebound or guarding, and no masses palpated. Bowel Sounds normal. MUSCULOSKELETAL: Good range of motion of all major joints. Extremities edema, black Jakob bandage to the right foot status post toe amputation NEUROLOGIC EXAM: Alert and oriented x 3. No focal sensory or strength deficits. Speech normal. Follows commands. PSYCHIATRIC: Mood normal. SKIN: Jakob bandage dressing to the dorsum of the foot status post amputation - Constitutional Vitals: Temp Pulse Resp BP Pulse Ox 98.9 F 84 20 118/57 94 09/13/16 08:31 09/13/16 08:31 09/13/16 08:31 09/13/16 08:31 09/13/16 08:31 General appearance: Present: no acute distress, well-nourished, obese Results - Labs CBC & Chem 7: 09/13/16 04:58 09/13/16 04:58 Labs: Laboratory Last Values WBC 16.6 K/mm3 (4.5-11.0) H 09/13/16 04:58 RBC 3.53 M/mm3 (3.65-5.03) L 09/13/16 04:58 Hgb 9.7 gm/dl (10.1-14.3) L 09/13/16 04:58 Hct 30.0 % (30.3-42.9) L 09/13/16 04:58 MCV 85 fl (79-97) 09/13/16 04:58 MCH 27 pg (28-32) L 09/13/16 04:58 MCHC 32 % (30-34) 09/13/16 04:58 RDW 14.4 % (13.2-15.2) 09/13/16 04:58 Plt Count 313 K/mm3 (140-440) 09/13/16 04:58 Lymph % (Auto) 11.8 % (13.4-35.0) L 09/12/16 05:30 [place] % (Auto) 8.7 % (0.0-7.3) H 09/12/16 05:30 Eos % (Auto) 0.9 % (0.0-4.3) 09/12/16 05:30 Baso % (Auto) 0.4 % (0.0-1.8) 09/12/16 05:30 Lymph # 1.9 K/mm3 (1.2-5.4) 09/12/16 05:30 [place] # 1.4 K/mm3 (0.0-0.8) H 09/12/16 05:30 Eos # 0.1 K/mm3 (0.0-0.4) 09/12/16 05:30 Baso # 0.1 K/mm3 (0.0-0.1) 09/12/16 05:30 Add Manual Diff Complete 09/11/16 05:24 Total Counted 100 09/11/16 05:24 Seg Neutrophils % 78.2 % (40.0-70.0) H 09/12/16 05:30 Seg Neuts % (Manual) 80.0 % (40.0-70.0) H 09/11/16 05:24 Band Neutrophils % 0 % 09/11/16 05:24 Lymphocytes % (Manual) 11.0 % (13.4-35.0) L 09/11/16 05:24 Reactive Lymphs % (Man) 0 % 09/11/16 05:24 Monocytes % (Manual) 7.0 % (0.0-7.3) 09/11/16 05:24 Eosinophils % (Manual) 2.0 % (0.0-4.3) 09/11/16 05:24 Basophils % (Manual) 0 % (0.0-1.8) 09/11/16 05:24 Metamyelocytes % 0 % 09/11/16 05:24 Myelocytes % 0 % 09/11/16 05:24 Promyelocytes % 0 % 09/11/16 05:24 Blast Cells % 0 % 09/11/16 05:24 Nucleated RBC % Not Reportable 09/11/16 05:24 Seg Neutrophils # 12.9 K/mm3 (1.8-7.7) H 09/12/16 05:30 Seg Neutrophils # Man 16.2 K/mm3 (1.8-7.7) H 09/11/16 05:24 Band Neutrophils # 0.0 K/mm3 09/11/16 05:24 Lymphocytes # (Manual) 2.2 K/mm3 (1.2-5.4) 09/11/16 05:24 Abs React Lymphs (Man) 0.0 K/mm3 09/11/16 05:24 Monocytes # (Manual) 1.4 K/mm3 (0.0-0.8) H 09/11/16 05:24 Eosinophils # (Manual) 0.4 K/mm3 (0.0-0.4) 09/11/16 05:24 Basophils # (Manual) 0.0 K/mm3 (0.0-0.1) 09/11/16 05:24 Metamyelocytes # 0.0 K/mm3 09/11/16 05:24 Myelocytes # 0.0 K/mm3 09/11/16 05:24 Promyelocytes # 0.0 K/mm3 09/11/16 05:24 Blast Cells # 0.0 K/mm3 09/11/16 05:24 WBC Morphology Not Reportable 09/11/16 05:24 Hypersegmented Neuts Not Reportable 09/11/16 05:24 Hyposegmented Neuts Not Reportable 09/11/16 05:24 Hypogranular Neuts Not Reportable 09/11/16 05:24 Smudge Cells Not Reportable 09/11/16 05:24 Toxic Granulation Not Reportable 09/11/16 05:24 Toxic Vacuolation Not Reportable 09/11/16 05:24 Dohle Bodies Not Reportable 09/11/16 05:24 Pelger-Huet Anomaly Not Reportable 09/11/16 05:24 Nba Rods Not Reportable 09/11/16 05:24 Platelet Estimate Appears normal 09/11/16 05:24 Clumped Platelets Not Reportable 09/11/16 05:24 Plt Clumps, EDTA Not Reportable 09/11/16 05:24 Large Platelets Not Reportable 09/11/16 05:24 Giant Platelets Not Reportable 09/11/16 05:24 Platelet Satelliting Not Reportable 09/11/16 05:24 Plt Morphology Comment Not Reportable 09/11/16 05:24 RBC Morphology Not Reportable 09/11/16 05:24 Dimorphic RBCs Not Reportable 09/11/16 05:24 Polychromasia Few 09/11/16 05:24 Hypochromasia Few 09/11/16 05:24 Poikilocytosis Not Reportable 09/11/16 05:24 Anisocytosis 1+ 09/11/16 05:24 Microcytosis Not Reportable 09/11/16 05:24 Macrocytosis Not Reportable 09/11/16 05:24 Spherocytes Not Reportable 09/11/16 05:24 Pappenheimer Bodies Not Reportable 09/11/16 05:24 Sickle Cells Not Reportable 09/11/16 05:24 Target Cells Rare 09/11/16 05:24 Tear Drop Cells Not Reportable 09/11/16 05:24 Ovalocytes Not Reportable 09/11/16 05:24 Helmet Cells Not Reportable 09/11/16 05:24 [place] Bodies Not Reportable 09/11/16 05:24 [place] Rings Not Reportable 09/11/16 05:24 [place] Cells Not Reportable 09/11/16 05:24 Bite Cells Not Reportable 09/11/16 05:24 Crenated Cell Not Reportable 09/11/16 05:24 Elliptocytes Not Reportable 09/11/16 05:24 Acanthocytes (Spur) Not Reportable 09/11/16 05:24 Rouleaux Not Reportable 09/11/16 05:24 Hemoglobin C Crystals Not Reportable 09/11/16 05:24 Schistocytes Not Reportable 09/11/16 05:24 Malaria parasites Not Reportable 09/11/16 05:24 ESR 77 mm/Hr (0-20) 09/10/16 12:25 Luis Bodies Not Reportable 09/11/16 05:24 Hem Pathologist Commnt No 09/11/16 05:24 PT 15.5 Sec. (12.2-14.9) H 09/10/16 12:25 INR 1.24 (0.87-1.13) H 09/10/16 12:25 APTT 29.5 Sec. (24.2-36.6) 09/10/16 12:25 Sodium 137 mmol/L (137-145) 09/13/16 04:58 Potassium 4.3 mmol/L (3.6-5.0) 09/13/16 04:58 Chloride 96.1 mmol/L (98-107) L 09/13/16 04:58 Carbon Dioxide 24 mmol/L (22-30) 09/13/16 04:58 Anion Gap 21 mmol/L 09/13/16 04:58 BUN 33 mg/dL (7-17) H 09/13/16 04:58 Creatinine 1.8 mg/dL (0.7-1.2) H 09/13/16 04:58 Estimated GFR 35 ml/min 09/13/16 04:58 BUN/Creatinine Ratio 18.33 % 09/13/16 04:58 Glucose 207 mg/dL (65-100) H 09/13/16 04:58 POC Glucose 188 (70-105) H 09/13/16 11:38 Lactic Acid 1.5 mmol/L (0.7-2.0) 09/10/16 15:10 Calcium 8.4 mg/dL (8.4-10.2) 09/13/16 04:58 Phosphorus 4.4 mg/dL (2.5-4.5) 09/12/16 05:30 Magnesium 2.1 mg/dL (1.7-2.3) 09/12/16 05:30 Total Bilirubin 0.7 mg/dL (0.1-1.2) 09/11/16 05:24 Direct Bilirubin 0.4 mg/dL (0-0.2) H 09/10/16 12:25 Indirect Bilirubin 0.6 mg/dL 09/10/16 12:25 AST 19 units/L (5-40) 09/11/16 05:24 ALT 16 units/L (7-56) 09/11/16 05:24 Alkaline Phosphatase 61 units/L (35-129) 09/11/16 05:24 C-Reactive Protein 33.40 mg/dL (0.00-1.30) H 09/10/16 12:25 Total Protein 7.9 g/dL (6.3-8.2) 09/11/16 05:24 Albumin 2.8 g/dL (3.9-5) L 09/11/16 05:24 Albumin/Globulin Ratio 0.5 % 09/11/16 05:24 PTH Intact 86.23 pg/mL (15-65) H 09/12/16 05:30 Blood Type B POSITIVE 09/10/16 12:25 Antibody Screen Negative 09/10/16 12:25
[2016-09-13] MEDS: NORCO 5/325 PO PRN (17:15)
[2016-09-13] MEDS: LEVEMIR SUB-Q SCH (22:27)
[2016-09-14] MEDS: SYNTHROID PO SCH (05:45)
[2016-09-14] MEDS: ZOSYN/NS 4.5GM/100ML 100 ML IV SCH ×3 (05:45→21:31)
[2016-09-14] MEDS: NORCO 5/325 PO PRN (06:40)
[2016-09-14] MEDS: PULMICORT IH SCH ×2 (08:12→20:30)
[2016-09-14] MEDS: BROVANA NEBU IH SCH ×2 (08:12→20:30)
[2016-09-14] MEDS: VANCOMYCIN VIAL 1,750 MG in NACL 0.9% 500 ML 500 ML IV SCH (09:00)
[2016-09-14 10:26] LABS: Hematocrit 34.1 % (30.3-42.9); Hemoglobin 10.9 gm/dl (10.1-14.3); Mean Corpuscular HGB Conc 32 % (30-34); Mean Corpuscular Hemoglobin 27 pg (28-32); Mean Corpuscular Volume 85 fl (79-97); Platelet Count 360 K/mm3 (140-440); Red Cell Distribution Width 14.5 % (13.2-15.2); White Blood Count 15.6 K/mm3 (4.5-11.0)
--- NOTE | 2016-09-14 11:02 | Progress Note ---
Assessment and Plan (1) Acute renal failure (ARF) Current Visit: Yes Status: Acute Plan to address problem: BMP is pending cont gentle IVF Renally dose medications renal US is pending Avoid nephrotoxic agents Obtain daily weight Strict intake and output (2) Diabetic infection of right foot Current Visit: Yes Status: Acute Plan to address problem: As per Infectious Disease and Orthopedic surgery s/p I&D 09/12 on broad spectrum antibiotics (3) Diabetes mellitus type 2, insulin dependent Current Visit: Yes Status: Acute Plan to address problem: As per primary team On insulin Subjective Date of service: 09/14/16 Principal diagnosis: acute renal failure Interval history: remains to have mild pain at the surgical site Objective - Vital Signs Vital signs: Vital Signs - 12hr 09/13/16 09/14/16 09/14/16 23:43 07:22 08:12 Temperature 98.3 F 97.8 F Pulse Rate [ 86 Anterior Bilateral Throughout] Pulse Rate [ 86 Bilateral Throughout] Pulse Rate [ 86 Posterior Bilateral Throughout] Pulse Rate [ 85 91 H Right Radial] Respiratory 20 24 Rate Respiratory 20 Rate [Anterior Bilateral Throughout] Respiratory 20 Rate [Bilateral Throughout] Respiratory 20 Rate [Posterior Bilateral Throughout] Blood Pressure 108/80 [Left Arm] Blood Pressure 110/58 [Right Arm] O2 Sat by Pulse 100 95 Oximetry 09/14/16 08:17 Temperature Pulse Rate [ 85 Anterior Bilateral Throughout] Pulse Rate [ Bilateral Throughout] Pulse Rate [ 85 Posterior Bilateral Throughout] Pulse Rate [ Right Radial] Respiratory Rate Respiratory 20 Rate [Anterior Bilateral Throughout] Respiratory Rate [Bilateral Throughout] Respiratory 20 Rate [Posterior Bilateral Throughout] Blood Pressure [Left Arm] Blood Pressure [Right Arm] O2 Sat by Pulse Oximetry - General Appearance General appearance: well-developed, well-nourished EENT: ATNC, PERRL, mucous membranes moist Neck: no JVD, no carotid bruit Respiratory: Present: Clear to Ascultation Cardiology: regular, S1S2 Gastrointestinal: normoactive bowel sounds Integumentary: no rash, warm and dry Neurologic: no focal deficit, no asterixis, alert and oriented x3 Musculoskeletal: deferred Psychiatric: mood/affect appropriate, cooperative - Lab 09/14/16 08:45 09/13/16 04:58 Most recent lab results Calcium 8.4 mg/dL (8.4-10.2) 09/13/16 04:58 Phosphorus 4.4 mg/dL (2.5-4.5) 09/12/16 05:30 Magnesium 2.1 mg/dL (1.7-2.3) 09/12/16 05:30
[2016-09-14] MEDS: CLARITIN PO SCH (11:37)
--- NOTE | 2016-09-14 11:52 | Progress Note ---
Assessment and Plan Antibiotics 1) vancomycin 1250mg iv Q24H (09/10 2) Zosyn 2.25gm iv Q8H (09/10- This is a 56 year old woman with diabetes mellitus, hypertension and COPD, she presented on 09/10/16 with right foot swelling, mal-odorous drainage from the 4th and 3rd digit, fluid filled blister on the dorsum of the foot. The 4th digit is black. Patient has leukocytosis and acute renal failure 09/12/16: 4th, 5th amputation 1) Right foot 4th digit gangrene with associated maceration. Mal-odorous drainage suggesting possible anaerobes, suspect polymicrobial infection. Unfortunately the 4th digit is not salvageable. -s/p amputation of 4th and 5th digit at the MP joint, debridement of abscess --suspect possible polymicrobial infection especially with malodorous drainage. -superficial culture with gram negatives, gram positives in pairs and clusters --intraoperative culture with gram positive cocci in pairs, --duration of antibiotics will be based on whether there is infected bone remaining behind, if no bone margins are infected will need 6 weeks of antibiotics 2) diabetic skin and soft tissue infection with associated gangrene. 3) leukocytosis, reactive to above infection 4) renal failure, unclear if this is chronic or acute secondary to current infection Plan 1) continue vancomycin and zosyn 2) will deescalate antibiotics based on culture results, if no MRSA will discontinue vancomycin 3) pharmacy to monitor vancomycin level 4) duration of antibiotics will be based on whether there is infected bone remaining, if no infected bone then treatment only for skin and soft tissue infection 5) follow up pathology report Subjective Date of service: 09/14/16 Principal diagnosis: acute renal failure Interval history: Patient is doing much better, no new complaints Objective - Constitutional Vitals: Vital Signs Temp Pulse Resp BP Pulse Ox 97.8 F 85 20 110/58 95 09/14/16 07:22 09/14/16 08:17 09/14/16 08:17 09/14/16 07:22 09/14/16 07:22 Temperature -Last 24 Hours Temperature 97.8 F Temperature 98.3 F Temperature 99.5 F General appearance: Present: no acute distress, well-nourished, obese - EENT Eyes: PERRL, EOM intact, no scleral icterus, no conjunctival injection ENT: hearing intact, clear oral mucosa Ears: bilateral: normal - Neck Neck: supple, normal ROM, no enlarged thyroid, no masses or JVD - Respiratory Respiratory: bilateral: CTA - Breasts Breasts: deferred - Cardiovascular Rhythm: regular Heart Sounds: Present: S1 & S2 Extremities: No edema, abnormal (right foot 4th and 5th digit amputation, beefy red tissue with some areas of necrosis, ) - Gastrointestinal General gastrointestinal: Present: soft, non-tender, normal bowel sounds Rectal Exam: deferred - Genitourinary Female genitourinary: deferred - Integumentary Integumentary: clear, warm, dry, no jaundice, no rash - Labs CBC & Chem 7: 09/14/16 08:45 09/13/16 04:58 Labs: Abnormal lab results 09/13/16 09/13/16 09/13/16 Range/Units 11:38 16:07 20:17 WBC (4.5-11.0) K/mm3 MCH (28-32) pg POC Glucose 188 H 201 H 224 H (70-105) 09/14/16 09/14/16 Range/Units 06:28 08:45 WBC 15.6 H (4.5-11.0) K/mm3 MCH 27 L (28-32) pg POC Glucose 157 H (70-105)
--- NOTE | 2016-09-14 12:40 | Progress Note ---
Assessment and Plan Assessment and plan: 1. Sepsis present on admission secondary to right foot cellulitis versus abscess with gangrene to the toe-vascular consult noted. At this post debridement and fourth and fifth digit MP joints amputation. ID input also noted. Will continue current IV antibiotics with vancomycin and Zosyn. Pharmacy to adjust vancomycin level. wbc decreasing today. Continue wound care. cultures with no significant growth. awaiting pathology report 2. Diabetes type 2-with insulin dependence-increase day time insulin regime to 25units, cont to monitor glucose 3. Hypothyroidism-cont thyroxine replacement 4. Morbid obesity- life style, modification advised- diet; weight loss and exercise 5. Acute kidney injury on chronic kidney disease stage III-secondary to visible due to nephropathy. Mild improvement noted today. Continue gentle hydration. Nephrology consult appreciated. Patient did use some NSAIDs. Continue to avoid all nephrotoxic medications. Also continue to hold ARB's diuretic. Renal ultrasound. Daily weights and strict ins and outs 6. Diabetic foot infection-present on admission. As noted #1 above. 7. DVT prophylaxis- heparin- Plan discussed with patient. History Interval history: F/U diabetic foot infection Patient seen and examined this morning in no acute distress, denies any pain in the amputated toes area. Dressing in place. no overt drainage, no new complaints Denies any chest pain, nausea, vomiting, diarrhea No fever noted blood pressure controlled No adverse events reported to me by nursing staff Hospitalist Physical - Physical exam Narrative exam: VITAL SIGNS: Reviewed. GENERAL: The patient appeared well nourished and normally developed. Vital signs as documented. HEAD: No signs of head trauma. EYES: Pupils are equal. Extraocular motions intact. EARS: Hearing grossly intact. MOUTH: Oropharynx is normal. NECK: No adenopathy, no JVD. CHEST: Chest with clear breath sounds bilaterally. No wheezes, rales, or rhonchi. CARDIAC: Regular rate and rhythm. S1 and S2, without murmurs, gallops, or rubs. VASCULAR: 2+ pitting edema with decreased peripheral pulses worse on the right lower extremity ABDOMEN: Soft, without detectable tenderness. No sign of distention. No rebound or guarding, and no masses palpated. Bowel Sounds normal. MUSCULOSKELETAL: Good range of motion of all major joints. Extremities edema, black Jakob bandage to the right foot status post toe amputation NEUROLOGIC EXAM: Alert and oriented x 3. No focal sensory or strength deficits. Speech normal. Follows commands. PSYCHIATRIC: Mood normal. SKIN: Jakob bandage dressing to the dorsum of the foot status post amputation - Constitutional Vitals: Temp Pulse Resp BP Pulse Ox 97.8 F 85 20 110/58 95 09/14/16 07:22 09/14/16 08:17 09/14/16 08:17 09/14/16 07:22 09/14/16 07:22 General appearance: Present: no acute distress, well-nourished, obese Results - Labs CBC & Chem 7: 09/14/16 08:45 09/13/16 04:58 Labs: Laboratory Last Values WBC 15.6 K/mm3 (4.5-11.0) H 09/14/16 08:45 RBC 4.00 M/mm3 (3.65-5.03) 09/14/16 08:45 Hgb 10.9 gm/dl (10.1-14.3) 09/14/16 08:45 Hct 34.1 % (30.3-42.9) 09/14/16 08:45 MCV 85 fl (79-97) 09/14/16 08:45 MCH 27 pg (28-32) L 09/14/16 08:45 MCHC 32 % (30-34) 09/14/16 08:45 RDW 14.5 % (13.2-15.2) 09/14/16 08:45 Plt Count 360 K/mm3 (140-440) 09/14/16 08:45 Lymph % (Auto) 11.8 % (13.4-35.0) L 09/12/16 05:30 [place] % (Auto) 8.7 % (0.0-7.3) H 09/12/16 05:30 Eos % (Auto) 0.9 % (0.0-4.3) 09/12/16 05:30 Baso % (Auto) 0.4 % (0.0-1.8) 09/12/16 05:30 Lymph # 1.9 K/mm3 (1.2-5.4) 09/12/16 05:30 [place] # 1.4 K/mm3 (0.0-0.8) H 09/12/16 05:30 Eos # 0.1 K/mm3 (0.0-0.4) 09/12/16 05:30 Baso # 0.1 K/mm3 (0.0-0.1) 09/12/16 05:30 Add Manual Diff Complete 09/11/16 05:24 Total Counted 100 09/11/16 05:24 Seg Neutrophils % 78.2 % (40.0-70.0) H 09/12/16 05:30 Seg Neuts % (Manual) 80.0 % (40.0-70.0) H 09/11/16 05:24 Band Neutrophils % 0 % 09/11/16 05:24 Lymphocytes % (Manual) 11.0 % (13.4-35.0) L 09/11/16 05:24 Reactive Lymphs % (Man) 0 % 09/11/16 05:24 Monocytes % (Manual) 7.0 % (0.0-7.3) 09/11/16 05:24 Eosinophils % (Manual) 2.0 % (0.0-4.3) 09/11/16 05:24 Basophils % (Manual) 0 % (0.0-1.8) 09/11/16 05:24 Metamyelocytes % 0 % 09/11/16 05:24 Myelocytes % 0 % 09/11/16 05:24 Promyelocytes % 0 % 09/11/16 05:24 Blast Cells % 0 % 09/11/16 05:24 Nucleated RBC % Not Reportable 09/11/16 05:24 Seg Neutrophils # 12.9 K/mm3 (1.8-7.7) H 09/12/16 05:30 Seg Neutrophils # Man 16.2 K/mm3 (1.8-7.7) H 09/11/16 05:24 Band Neutrophils # 0.0 K/mm3 09/11/16 05:24 Lymphocytes # (Manual) 2.2 K/mm3 (1.2-5.4) 09/11/16 05:24 Abs React Lymphs (Man) 0.0 K/mm3 09/11/16 05:24 Monocytes # (Manual) 1.4 K/mm3 (0.0-0.8) H 09/11/16 05:24 Eosinophils # (Manual) 0.4 K/mm3 (0.0-0.4) 09/11/16 05:24 Basophils # (Manual) 0.0 K/mm3 (0.0-0.1) 09/11/16 05:24 Metamyelocytes # 0.0 K/mm3 09/11/16 05:24 Myelocytes # 0.0 K/mm3 09/11/16 05:24 Promyelocytes # 0.0 K/mm3 09/11/16 05:24 Blast Cells # 0.0 K/mm3 09/11/16 05:24 WBC Morphology Not Reportable 09/11/16 05:24 Hypersegmented Neuts Not Reportable 09/11/16 05:24 Hyposegmented Neuts Not Reportable 09/11/16 05:24 Hypogranular Neuts Not Reportable 09/11/16 05:24 Smudge Cells Not Reportable 09/11/16 05:24 Toxic Granulation Not Reportable 09/11/16 05:24 Toxic Vacuolation Not Reportable 09/11/16 05:24 Dohle Bodies Not Reportable 09/11/16 05:24 Pelger-Huet Anomaly Not Reportable 09/11/16 05:24 Nba Rods Not Reportable 09/11/16 05:24 Platelet Estimate Appears normal 09/11/16 05:24 Clumped Platelets Not Reportable 09/11/16 05:24 Plt Clumps, EDTA Not Reportable 09/11/16 05:24 Large Platelets Not Reportable 09/11/16 05:24 Giant Platelets Not Reportable 09/11/16 05:24 Platelet Satelliting Not Reportable 09/11/16 05:24 Plt Morphology Comment Not Reportable 09/11/16 05:24 RBC Morphology Not Reportable 09/11/16 05:24 Dimorphic RBCs Not Reportable 09/11/16 05:24 Polychromasia Few 09/11/16 05:24 Hypochromasia Few 09/11/16 05:24 Poikilocytosis Not Reportable 09/11/16 05:24 Anisocytosis 1+ 09/11/16 05:24 Microcytosis Not Reportable 09/11/16 05:24 Macrocytosis Not Reportable 09/11/16 05:24 Spherocytes Not Reportable 09/11/16 05:24 Pappenheimer Bodies Not Reportable 09/11/16 05:24 Sickle Cells Not Reportable 09/11/16 05:24 Target Cells Rare 09/11/16 05:24 Tear Drop Cells Not Reportable 09/11/16 05:24 Ovalocytes Not Reportable 09/11/16 05:24 Helmet Cells Not Reportable 09/11/16 05:24 [place] Bodies Not Reportable 09/11/16 05:24 [place] Rings Not Reportable 09/11/16 05:24 [place] Cells Not Reportable 09/11/16 05:24 Bite Cells Not Reportable 09/11/16 05:24 Crenated Cell Not Reportable 09/11/16 05:24 Elliptocytes Not Reportable 09/11/16 05:24 Acanthocytes (Spur) Not Reportable 09/11/16 05:24 Rouleaux Not Reportable 09/11/16 05:24 Hemoglobin C Crystals Not Reportable 09/11/16 05:24 Schistocytes Not Reportable 09/11/16 05:24 Malaria parasites Not Reportable 09/11/16 05:24 ESR 77 mm/Hr (0-20) 09/10/16 12:25 Luis Bodies Not Reportable 09/11/16 05:24 Hem Pathologist Commnt No 09/11/16 05:24 PT 15.5 Sec. (12.2-14.9) H 09/10/16 12:25 INR 1.24 (0.87-1.13) H 09/10/16 12:25 APTT 29.5 Sec. (24.2-36.6) 09/10/16 12:25 Sodium 137 mmol/L (137-145) 09/13/16 04:58 Potassium 4.3 mmol/L (3.6-5.0) 09/13/16 04:58 Chloride 96.1 mmol/L (98-107) L 09/13/16 04:58 Carbon Dioxide 24 mmol/L (22-30) 09/13/16 04:58 Anion Gap 21 mmol/L 09/13/16 04:58 BUN 33 mg/dL (7-17) H 09/13/16 04:58 Creatinine 1.8 mg/dL (0.7-1.2) H 09/13/16 04:58 Estimated GFR 35 ml/min 09/13/16 04:58 BUN/Creatinine Ratio 18.33 % 09/13/16 04:58 Glucose 207 mg/dL (65-100) H 09/13/16 04:58 POC Glucose 157 (70-105) H 09/14/16 06:28 Lactic Acid 1.5 mmol/L (0.7-2.0) 09/10/16 15:10 Calcium 8.4 mg/dL (8.4-10.2) 09/13/16 04:58 Phosphorus 4.4 mg/dL (2.5-4.5) 09/12/16 05:30 Magnesium 2.1 mg/dL (1.7-2.3) 09/12/16 05:30 Total Bilirubin 0.7 mg/dL (0.1-1.2) 09/11/16 05:24 Direct Bilirubin 0.4 mg/dL (0-0.2) H 09/10/16 12:25 Indirect Bilirubin 0.6 mg/dL 09/10/16 12:25 AST 19 units/L (5-40) 09/11/16 05:24 ALT 16 units/L (7-56) 09/11/16 05:24 Alkaline Phosphatase 61 units/L (35-129) 09/11/16 05:24 C-Reactive Protein 33.40 mg/dL (0.00-1.30) H 09/10/16 12:25 Total Protein 7.9 g/dL (6.3-8.2) 09/11/16 05:24 Albumin 2.8 g/dL (3.9-5) L 09/11/16 05:24 Albumin/Globulin Ratio 0.5 % 09/11/16 05:24 PTH Intact 86.23 pg/mL (15-65) H 09/12/16 05:30 Blood Type B POSITIVE 09/10/16 12:25 Antibody Screen Negative 09/10/16 12:25
--- NOTE | 2016-09-14 16:30 | Progress Note ---
Assessment and Plan - Patient Problems (1) Diabetic infection of right foot Current Visit: Yes Status: Acute Plan to address problem: Continue with local wound management, protected weightbearing. When medically stable she will be discharged home with followup at wound clinic, followup in my office. Medical management of diabetes by her primary care. Subjective Date of service: 09/14/16 Principal diagnosis: acute renal failure Interval history: Status post toe amputation, debridement of foot. Wound evaluated by wound care team today. Objective Vital signs: Vital Signs - 12hr 09/14/16 09/14/16 09/14/16 07:22 08:12 08:17 Temperature 97.8 F Pulse Rate [ 86 85 Anterior Bilateral Throughout] Pulse Rate [ 86 Bilateral Throughout] Pulse Rate [ 86 85 Posterior Bilateral Throughout] Pulse Rate [ 91 H Right Radial] Respiratory 24 Rate Respiratory 20 20 Rate [Anterior Bilateral Throughout] Respiratory 20 Rate [Bilateral Throughout] Respiratory 20 20 Rate [Posterior Bilateral Throughout] Blood Pressure 110/58 [Right Arm] O2 Sat by Pulse 95 Oximetry 09/14/16 15:10 Temperature 98.5 F Pulse Rate [ Anterior Bilateral Throughout] Pulse Rate [ Bilateral Throughout] Pulse Rate [ Posterior Bilateral Throughout] Pulse Rate [ 95 H Right Radial] Respiratory 20 Rate Respiratory Rate [Anterior Bilateral Throughout] Respiratory Rate [Bilateral Throughout] Respiratory Rate [Posterior Bilateral Throughout] Blood Pressure 116/58 [Right Arm] O2 Sat by Pulse Oximetry - Labs CBC & BMP: 09/15/16 05:09 09/15/16 05:09 Labs: Abnormal lab results 09/13/16 09/13/16 09/14/16 Range/Units 16:07 20:17 06:28 WBC (4.5-11.0) K/mm3 MCH (28-32) pg POC Glucose 201 H 224 H 157 H (70-105) 09/14/16 Range/Units 08:45 WBC 15.6 H (4.5-11.0) K/mm3 MCH 27 L (28-32) pg POC Glucose (70-105)
[2016-09-14] MEDS ORDERED: MILK OF MAGNESIA PO PRN (16:55)
[2016-09-14] MEDS: LEVEMIR SUB-Q SCH (23:44)
[2016-09-15] MEDS: VANCOMYCIN VIAL 1,750 MG in NACL 0.9% 500 ML 500 ML IV SCH ×2 (02:56→21:59)
[2016-09-15 06:20] LABS: BUN/Creatinine Ratio 16.87; Calcium 8.4 mg/dL (8.4-10.2); Chloride 99.4 mmol/L (98-107); Phosphorous 2.5 mg/dL (2.5-4.5); Potassium 4.1 mmol/L (3.6-5.0)
[2016-09-15 06:21] LABS: Basophils % (Auto) 0.3 % (0.0-1.8); Eosinophils % (Auto) 2.3 % (0.0-4.3); Hematocrit 32.5 % (30.3-42.9); Hemoglobin 10.2 gm/dl (10.1-14.3); Mean Corpuscular HGB Conc 31 % (30-34); Mean Corpuscular Hemoglobin 27 pg (28-32); Mean Corpuscular Volume 86 fl (79-97); Platelet Count 339 K/mm3 (140-440); Red Blood Count 3.77 M/mm3 (3.65-5.03); Red Cell Distribution Width 14.6 % (13.2-15.2)
[2016-09-15] MEDS: ZOSYN/NS 4.5GM/100ML 100 ML IV SCH ×3 (06:37→22:00)
[2016-09-15] MEDS: SYNTHROID PO SCH (06:37)
[2016-09-15] MEDS: PULMICORT IH SCH ×2 (09:08→19:36)
[2016-09-15] MEDS: BROVANA NEBU IH SCH ×2 (09:08→19:36)
--- NOTE | 2016-09-15 09:38 | Progress Note ---
Assessment and Plan (1) Acute renal failure (ARF) Current Visit: Yes Status: Acute Plan to address problem: creatinine cont to improve will d/c IVF Renally dose medications renal US is pending Avoid nephrotoxic agents Obtain daily weight Strict intake and output (2) Diabetic infection of right foot Current Visit: Yes Status: Acute Plan to address problem: As per Infectious Disease and Orthopedic surgery s/p I&D 09/12 on broad spectrum antibiotics (3) Diabetes mellitus type 2, insulin dependent Current Visit: Yes Status: Acute Plan to address problem: As per primary team On insulin Subjective Date of service: 09/15/16 Principal diagnosis: acute renal failure Interval history: energy cont to improve Objective - Vital Signs Vital signs: Vital Signs - 12hr 09/14/16 09/15/16 23:00 07:19 Temperature 99.3 F 98.7 F Pulse Rate [ 92 H Apical] Pulse Rate [ 86 Right Radial] Respiratory 18 20 Rate Blood Pressure 114/68 112/55 [Right Arm] O2 Sat by Pulse 93 Oximetry - General Appearance General appearance: well-developed, well-nourished, obese EENT: ATNC, PERRL, mucous membranes moist Neck: no JVD, no carotid bruit Respiratory: Present: Clear to Ascultation Cardiology: regular, S1S2 Gastrointestinal: normoactive bowel sounds, no tenderness, no distended, obese Integumentary: no rash, warm and dry Neurologic: no focal deficit, no asterixis, alert and oriented x3 Musculoskeletal: other (edema in RLE) Psychiatric: mood/affect appropriate, cooperative - Lab 09/15/16 05:09 09/15/16 05:09 Most recent lab results Calcium 8.4 mg/dL (8.4-10.2) 09/15/16 05:09 Phosphorus 2.5 mg/dL (2.5-4.5) 09/15/16 05:09 Magnesium 2.1 mg/dL (1.7-2.3) 09/12/16 05:30 Urine Creatinine 135.8 mg/dL (0.1-20.0) H 09/14/16 18:00 Urine Sodium 30 mEq/L 09/14/16 18:00 Urine Total Protein 113 mg/dL (5-11.8) H 09/14/16 18:00
[2016-09-15] MEDS: CLARITIN PO SCH (10:56)
--- NOTE | 2016-09-15 11:16 | Progress Note ---
Assessment and Plan Current antibiotics: Vancomycin 1250 mg IV q24h 09/10 --> Zosyn 2.25 gm IV q8h 09/10 --> ASSESSMENT: Lizbeth Zimmerman is a 56 year old woman with type 2 diabetes mellitus, hypothyroidism, hypertension and COPD who was admitted to [facility] on 09/10/16 with right foot swelling, malodorous drainage from the 4th and 3rd digit, fluid filled blister on the dorsum of the foot. She underwent 4th & 5th amputation and drainage of abscess on 09/12 Problem list: 1. Right foot 4th digit gangrene with associated maceration -s/p amputation of 4th and 5th digit at the MP joint and debridement of large abscess 09/12 -Likely polymicrobial mixed aerobic and anaerobic infection with malodorous drainage. -Pathology showed evidence of active infection at surgical margins 2. Type 2 diabetes mellitus -Peripheral neuropathy 3. Leukocytosis -Reactive secondary to #1. 4. Renal failure -Improving -Rule out component of chronic kidney disease 5. Hypothyroidism -On replacement therapy 6. History of COPD PLAN: 1. Continue vancomycin and zosyn 2. Await finalization of surgical cultures to determine antibiotic regimen 3. With pathology showing of infection at surgical margins will need long-term (4-6 weeks) of antibiotics. Depending on surgical cultures may be able to treat with oral quinolone and Flagyl versus IV antibiotics 4. Glycemic control as per primary team Henrique Raymundo MD [facility] Office: [phone] Subjective Date of service: 09/15/16 Principal diagnosis: Diabetic foot infection Interval history: No complaints except for some constipation. No significant pain. ROS: No subjective fever or chills. No nausea, vomiting or diarrhea. No shortness of breath, cough or pleuritic chest pain Objective - Exam Narrative Exam: GENERAL: Well-developed, obese female who is alert and in no acute distress. HEAD: Normocephalic. No lesions seen. EYES: Pupils are equal reactive to light and accommodation. There is no scleral icterus. Optic fundi are not examined. EARS: Tympanic membranes are normal. THROAT: Oropharynx is normal with no evidence of oral candidiasis or pharyngitis. NECK: Supple. No enlargement of the thyroid gland. No significant cervical lymphadenopathy. No jugular venous distention at 30. LUNGS: Clear with no adventitious sounds. HEART: Regular rate. S1 and S2 are normal. There are no murmurs, gallops, clicks or rubs heard. ABDOMEN: Soft and nontender. Liver and spleen are not palpably enlarged or tender. No palpable masses. Bowel sounds are normoactive. EXTREMITIES: Right foot with wound VAC in place and surgical dressings. Moderate edema to mid pretibial area. Wound care nurses photographs from 09/14 reviewed and wounds appear clean with no signs of residual infection. : Not examined NEUROLOGIC: Decreased sensation to pinprick in a stocking distribution. - Constitutional Vitals: Vital Signs Temp Pulse Resp BP Pulse Ox 98.7 F 86 20 112/55 93 09/15/16 07:19 09/15/16 07:19 09/15/16 07:19 09/15/16 07:19 09/14/16 23:00 Temperature -Last 24 Hours Temperature 98.7 F Temperature 99.3 F Temperature 98.5 F - Labs CBC & Chem 7: 09/15/16 05:09 09/15/16 05:09 Labs: Abnormal lab results Microbiology 09/12/16 Unknown Foot - Right Surgical Culture - pending Gram stain: Many PMNs: Few gram-positive rods suggestive of diphtheroids, moderate gram-positive cocci in pairs 09/12/16 Unknown Foot - Right Anaerobic Culture - Pending 09/11/16 Unknown Foot - Right superficial wound culture - normal skin ade 09/10/16 13:04 Peripheral/Venous Blood Culture - Preliminary NO GROWTH AFTER 4 DAYS 09/10/16 12:25 Peripheral/Venous Blood Culture - Preliminary NO GROWTH AFTER 4 DAYS 09/12 Pathology: Acute inflammation and bacteria present at surgical margins of both amputated toes
[2016-09-15] MEDS: NORCO 5/325 PO PRN (13:10)
--- NOTE | 2016-09-15 13:45 | Progress Note ---
Assessment and Plan - Patient Problems (1) Diabetic infection of right foot Current Visit: Yes Status: Acute Plan to address problem: Continue with local wound management, protected weightbearing. When medically stable she will be discharged home with followup at wound clinic, followup in my office. Medical management of diabetes by her primary care. Subjective Date of service: 09/15/16 Principal diagnosis: Diabetic foot infection Interval history: Status post toe amputation, debridement of foot. Wound evaluated by wound care team today. Objective Vital signs: Vital Signs - 12hr 09/15/16 07:19 Temperature 98.7 F Pulse Rate [ 86 Right Radial] Respiratory 20 Rate Blood Pressure 112/55 [Right Arm] - Labs CBC & BMP: 09/15/16 05:09 09/15/16 05:09 Labs: Abnormal lab results 09/14/16 09/14/16 09/14/16 Range/Units 11:35 18:00 21:07 WBC (4.5-11.0) K/mm3 MCH (28-32) pg Lymph % (Auto) (13.4-35.0) % Seg Neutrophils % (40.0-70.0) % Seg Neutrophils # (1.8-7.7) K/mm3 BUN (7-17) mg/dL Creatinine (0.7-1.2) mg/dL Glucose (65-100) mg/dL POC Glucose 221 H 241 H (70-105) Urine Creatinine 135.8 H (0.1-20.0) mg/dL Urine Chloride 18.4 L (110-250) mEq/L Urine Total Protein 113 H (5-11.8) mg/dL 09/15/16 09/15/16 09/15/16 Range/Units 05:09 05:09 06:34 WBC 15.0 H (4.5-11.0) K/mm3 MCH 27 L (28-32) pg Lymph % (Auto) 11.0 L (13.4-35.0) % Seg Neutrophils % 80.9 H (40.0-70.0) % Seg Neutrophils # 12.1 H (1.8-7.7) K/mm3 BUN 27 H (7-17) mg/dL Creatinine 1.6 H (0.7-1.2) mg/dL Glucose 173 H (65-100) mg/dL POC Glucose 187 H (70-105) Urine Creatinine (0.1-20.0) mg/dL Urine Chloride (110-250) mEq/L Urine Total Protein (5-11.8) mg/dL
--- NOTE | 2016-09-15 15:14 | Progress Note ---
Assessment and Plan Assessment and plan: 1. Sepsis present on admission secondary to right foot cellulitis versus abscess with gangrene to the toe-vascular consult noted. At this post debridement and fourth and fifth digit MP joints amputation. ID input also noted. Will continue current IV antibiotics with vancomycin and Zosyn. Pharmacy to adjust vancomycin level. wbc decreasing today. Continue wound care. cultures with no significant growth. awaiting pathology report. wound vac in place 2. Diabetes type 2-with insulin dependence-increase day time insulin regime to 25units, cont to monitor glucose 3. Hypothyroidism-cont thyroxine replacement 4. Morbid obesity- life style, modification advised- diet; weight loss and exercise 5. Acute kidney injury on chronic kidney disease stage III-secondary to visible due to nephropathy. Mild improvement noted today. Continue gentle hydration. Nephrology consult appreciated. Patient did use some NSAIDs. Continue to avoid all nephrotoxic medications. Also continue to hold ARB's diuretic. Renal ultrasound. Daily weights and strict ins and outs 6. Diabetic foot infection-present on admission. As noted #1 above. 7. DVT prophylaxis- heparin- Plan discussed with patient. History Interval history: F/U diabetic foot infection Patient seen and examined this morning in no acute distress, denies any pain in the amputated toes area. Dressing in place. no overt drainage, no new complaints Denies any chest pain, nausea, vomiting, diarrhea No fever noted blood pressure controlled No adverse events reported to me by nursing staff Hospitalist Physical - Physical exam Narrative exam: VITAL SIGNS: Reviewed. GENERAL: The patient appeared well nourished and normally developed. Vital signs as documented. HEAD: No signs of head trauma. EYES: Pupils are equal. Extraocular motions intact. EARS: Hearing grossly intact. MOUTH: Oropharynx is normal. NECK: No adenopathy, no JVD. CHEST: Chest with clear breath sounds bilaterally. No wheezes, rales, or rhonchi. CARDIAC: Regular rate and rhythm. S1 and S2, without murmurs, gallops, or rubs. VASCULAR: 2+ pitting edema with decreased peripheral pulses worse on the right lower extremity ABDOMEN: Soft, without detectable tenderness. No sign of distention. No rebound or guarding, and no masses palpated. Bowel Sounds normal. MUSCULOSKELETAL: Good range of motion of all major joints. Extremities edema, black Jakob bandage to the right foot status post toe amputation NEUROLOGIC EXAM: Alert and oriented x 3. No focal sensory or strength deficits. Speech normal. Follows commands. PSYCHIATRIC: Mood normal. SKIN: wound vac in place. - Constitutional Vitals: Temp Pulse Resp BP Pulse Ox 99.2 F 89 20 100/55 96 09/15/16 14:59 09/15/16 14:59 09/15/16 14:59 09/15/16 14:59 09/15/16 14:59 General appearance: Present: no acute distress, well-nourished, obese Results - Labs CBC & Chem 7: 09/15/16 05:09 09/15/16 05:09 Labs: Laboratory Last Values WBC 15.0 K/mm3 (4.5-11.0) H 09/15/16 05:09 RBC 3.77 M/mm3 (3.65-5.03) 09/15/16 05:09 Hgb 10.2 gm/dl (10.1-14.3) 09/15/16 05:09 Hct 32.5 % (30.3-42.9) 09/15/16 05:09 MCV 86 fl (79-97) 09/15/16 05:09 MCH 27 pg (28-32) L 09/15/16 05:09 MCHC 31 % (30-34) 09/15/16 05:09 RDW 14.6 % (13.2-15.2) 09/15/16 05:09 Plt Count 339 K/mm3 (140-440) 09/15/16 05:09 Lymph % (Auto) 11.0 % (13.4-35.0) L 09/15/16 05:09 [place] % (Auto) 5.5 % (0.0-7.3) 09/15/16 05:09 Eos % (Auto) 2.3 % (0.0-4.3) 09/15/16 05:09 Baso % (Auto) 0.3 % (0.0-1.8) 09/15/16 05:09 Lymph # 1.7 K/mm3 (1.2-5.4) 09/15/16 05:09 [place] # 0.8 K/mm3 (0.0-0.8) 09/15/16 05:09 Eos # 0.3 K/mm3 (0.0-0.4) 09/15/16 05:09 Baso # 0.0 K/mm3 (0.0-0.1) 09/15/16 05:09 Add Manual Diff Complete 09/11/16 05:24 Total Counted 100 09/11/16 05:24 Seg Neutrophils % 80.9 % (40.0-70.0) H 09/15/16 05:09 Seg Neuts % (Manual) 80.0 % (40.0-70.0) H 09/11/16 05:24 Band Neutrophils % 0 % 09/11/16 05:24 Lymphocytes % (Manual) 11.0 % (13.4-35.0) L 09/11/16 05:24 Reactive Lymphs % (Man) 0 % 09/11/16 05:24 Monocytes % (Manual) 7.0 % (0.0-7.3) 09/11/16 05:24 Eosinophils % (Manual) 2.0 % (0.0-4.3) 09/11/16 05:24 Basophils % (Manual) 0 % (0.0-1.8) 09/11/16 05:24 Metamyelocytes % 0 % 09/11/16 05:24 Myelocytes % 0 % 09/11/16 05:24 Promyelocytes % 0 % 09/11/16 05:24 Blast Cells % 0 % 09/11/16 05:24 Nucleated RBC % Not Reportable 09/11/16 05:24 Seg Neutrophils # 12.1 K/mm3 (1.8-7.7) H 09/15/16 05:09 Seg Neutrophils # Man 16.2 K/mm3 (1.8-7.7) H 09/11/16 05:24 Band Neutrophils # 0.0 K/mm3 09/11/16 05:24 Lymphocytes # (Manual) 2.2 K/mm3 (1.2-5.4) 09/11/16 05:24 Abs React Lymphs (Man) 0.0 K/mm3 09/11/16 05:24 Monocytes # (Manual) 1.4 K/mm3 (0.0-0.8) H 09/11/16 05:24 Eosinophils # (Manual) 0.4 K/mm3 (0.0-0.4) 09/11/16 05:24 Basophils # (Manual) 0.0 K/mm3 (0.0-0.1) 09/11/16 05:24 Metamyelocytes # 0.0 K/mm3 09/11/16 05:24 Myelocytes # 0.0 K/mm3 09/11/16 05:24 Promyelocytes # 0.0 K/mm3 09/11/16 05:24 Blast Cells # 0.0 K/mm3 09/11/16 05:24 WBC Morphology Not Reportable 09/11/16 05:24 Hypersegmented Neuts Not Reportable 09/11/16 05:24 Hyposegmented Neuts Not Reportable 09/11/16 05:24 Hypogranular Neuts Not Reportable 09/11/16 05:24 Smudge Cells Not Reportable 09/11/16 05:24 Toxic Granulation Not Reportable 09/11/16 05:24 Toxic Vacuolation Not Reportable 09/11/16 05:24 Dohle Bodies Not Reportable 09/11/16 05:24 Pelger-Huet Anomaly Not Reportable 09/11/16 05:24 Nba Rods Not Reportable 09/11/16 05:24 Platelet Estimate Appears normal 09/11/16 05:24 Clumped Platelets Not Reportable 09/11/16 05:24 Plt Clumps, EDTA Not Reportable 09/11/16 05:24 Large Platelets Not Reportable 09/11/16 05:24 Giant Platelets Not Reportable 09/11/16 05:24 Platelet Satelliting Not Reportable 09/11/16 05:24 Plt Morphology Comment Not Reportable 09/11/16 05:24 RBC Morphology Not Reportable 09/11/16 05:24 Dimorphic RBCs Not Reportable 09/11/16 05:24 Polychromasia Few 09/11/16 05:24 Hypochromasia Few 09/11/16 05:24 Poikilocytosis Not Reportable 09/11/16 05:24 Anisocytosis 1+ 09/11/16 05:24 Microcytosis Not Reportable 09/11/16 05:24 Macrocytosis Not Reportable 09/11/16 05:24 Spherocytes Not Reportable 09/11/16 05:24 Pappenheimer Bodies Not Reportable 09/11/16 05:24 Sickle Cells Not Reportable 09/11/16 05:24 Target Cells Rare 09/11/16 05:24 Tear Drop Cells Not Reportable 09/11/16 05:24 Ovalocytes Not Reportable 09/11/16 05:24 Helmet Cells Not Reportable 09/11/16 05:24 Terry-Erath Bodies Not Reportable 09/11/16 05:24 [place] Rings Not Reportable 09/11/16 05:24 Barbie Cells Not Reportable 09/11/16 05:24 Bite Cells Not Reportable 09/11/16 05:24 Crenated Cell Not Reportable 09/11/16 05:24 Elliptocytes Not Reportable 09/11/16 05:24 Acanthocytes (Spur) Not Reportable 09/11/16 05:24 Rouleaux Not Reportable 09/11/16 05:24 Hemoglobin C Crystals Not Reportable 09/11/16 05:24 Schistocytes Not Reportable 09/11/16 05:24 Malaria parasites Not Reportable 09/11/16 05:24 ESR 77 mm/Hr (0-20) 09/10/16 12:25 Luis Bodies Not Reportable 09/11/16 05:24 Hem Pathologist Commnt No 09/11/16 05:24 PT 15.5 Sec. (12.2-14.9) H 09/10/16 12:25 INR 1.24 (0.87-1.13) H 09/10/16 12:25 APTT 29.5 Sec. (24.2-36.6) 09/10/16 12:25 Sodium 141 mmol/L (137-145) 09/15/16 05:09 Potassium 4.1 mmol/L (3.6-5.0) 09/15/16 05:09 Chloride 99.4 mmol/L (98-107) 09/15/16 05:09 Carbon Dioxide 28 mmol/L (22-30) 09/15/16 05:09 Anion Gap 18 mmol/L 09/15/16 05:09 BUN 27 mg/dL (7-17) H 09/15/16 05:09 Creatinine 1.6 mg/dL (0.7-1.2) H 09/15/16 05:09 Estimated GFR 40 ml/min 09/15/16 05:09 BUN/Creatinine Ratio 16.87 % 09/15/16 05:09 Glucose 173 mg/dL (65-100) H 09/15/16 05:09 POC Glucose 187 (70-105) H 09/15/16 06:34 Lactic Acid 1.5 mmol/L (0.7-2.0) 09/10/16 15:10 Calcium 8.4 mg/dL (8.4-10.2) 09/15/16 05:09 Phosphorus 2.5 mg/dL (2.5-4.5) 09/15/16 05:09 Magnesium 2.1 mg/dL (1.7-2.3) 09/12/16 05:30 Total Bilirubin 0.7 mg/dL (0.1-1.2) 09/11/16 05:24 Direct Bilirubin 0.4 mg/dL (0-0.2) H 09/10/16 12:25 Indirect Bilirubin 0.6 mg/dL 09/10/16 12:25 AST 19 units/L (5-40) 09/11/16 05:24 ALT 16 units/L (7-56) 09/11/16 05:24 Alkaline Phosphatase 61 units/L (35-129) 09/11/16 05:24 C-Reactive Protein 33.40 mg/dL (0.00-1.30) H 09/10/16 12:25 Total Protein 7.9 g/dL (6.3-8.2) 09/11/16 05:24 Albumin 2.8 g/dL (3.9-5) L 09/11/16 05:24 Albumin/Globulin Ratio 0.5 % 09/11/16 05:24 PTH Intact 86.23 pg/mL (15-65) H 09/12/16 05:30 Urine Eosinophils None seen (None Seen) 09/14/16 18:00 Urine Creatinine 135.8 mg/dL (0.1-20.0) H 09/14/16 18:00 Urine Microalbumin 33.7 mg/dL (0.1-34.0) 09/14/16 18:00 Microalb/Creat Ratio 248.1 ug/mg 09/14/16 18:00 Protein/Creatinin Ratio 0.83 09/14/16 18:00 Urine Sodium 30 mEq/L 09/14/16 18:00 Urine Chloride 18.4 mEq/L (110-250) L 09/14/16 18:00 Urine Total Protein 113 mg/dL (5-11.8) H 09/14/16 18:00 Blood Type B POSITIVE 09/10/16 12:25 Antibody Screen Negative 09/10/16 12:25
[2016-09-15] MEDS: LEVEMIR SUB-Q SCH (22:01)
[2016-09-16] MEDS: SYNTHROID PO SCH (06:27)
[2016-09-16] MEDS: ZOSYN/NS 4.5GM/100ML 100 ML IV SCH ×3 (06:28→22:49)
[2016-09-16] MEDS: BROVANA NEBU IH SCH ×2 (08:54→20:19)
[2016-09-16] MEDS: PULMICORT IH SCH ×2 (08:54→20:19)
[2016-09-16 09:47] LABS: Basophils % (Auto) 0.6 % (0.0-1.8); Eosinophils % (Auto) 2.6 % (0.0-4.3); Hemoglobin 10.5 gm/dl (10.1-14.3); Mean Corpuscular HGB Conc 32 % (30-34); Mean Corpuscular Hemoglobin 27 pg (28-32); Mean Corpuscular Volume 86 fl (79-97); Platelet Count 328 K/mm3 (140-440); Red Blood Count 3.86 M/mm3 (3.65-5.03); Red Cell Distribution Width 14.8 % (13.2-15.2); White Blood Count 16.6 K/mm3 (4.5-11.0)
[2016-09-16] MEDS: NORCO 5/325 PO PRN ×2 (09:47→20:24)
[2016-09-16] MEDS: CLARITIN PO SCH (09:47)
[2016-09-16 10:10] LABS: BUN/Creatinine Ratio 13.75; Calcium 8.5 mg/dL (8.4-10.2); Chloride 101.5 mmol/L (98-107); Potassium 4.4 mmol/L (3.6-5.0)
--- NOTE | 2016-09-16 10:22 | Progress Note ---
Assessment and Plan (1) Acute renal failure (ARF) Current Visit: Yes Status: Acute Plan to address problem: stable creatinine and BUN Renally dose medications Avoid nephrotoxic agents Obtain daily weight Strict intake and output (2) Diabetic infection of right foot Current Visit: Yes Status: Acute Plan to address problem: As per Infectious Disease and Orthopedic surgery s/p I&D 09/12 on broad spectrum antibiotics (3) Diabetes mellitus type 2, insulin dependent Current Visit: Yes Status: Acute Plan to address problem: As per primary team On insulin Subjective Date of service: 09/16/16 Principal diagnosis: Diabetic foot infection Interval history: denies acute events, comfortable Objective - Vital Signs Vital signs: Vital Signs - 12hr 09/16/16 09/16/16 09/16/16 06:50 08:57 09:10 Temperature 99.8 F H Pulse Rate [ 95 H 95 H Anterior Bilateral Throughout] Pulse Rate [ 91 H Right Radial] Respiratory 20 Rate Respiratory 20 20 Rate [Anterior Bilateral Throughout] Blood Pressure 128/58 [Right Arm] O2 Sat by Pulse 98 Oximetry - General Appearance General appearance: well-developed, obese EENT: ATNC, PERRL, mucous membranes moist Neck: no JVD, no carotid bruit Respiratory: Present: Clear to Ascultation Cardiology: regular, S1S2 Gastrointestinal: normoactive bowel sounds, no tenderness, no distended, obese Integumentary: no rash, warm and dry Neurologic: no focal deficit, no asterixis, alert and oriented x3 Musculoskeletal: other (edema in RLE) Psychiatric: mood/affect appropriate, cooperative - Lab 09/16/16 08:57 09/16/16 08:57 Most recent lab results Calcium 8.5 mg/dL (8.4-10.2) 09/16/16 08:57 Phosphorus 2.0 mg/dL (2.5-4.5) L 09/16/16 08:57 Magnesium 2.1 mg/dL (1.7-2.3) 09/12/16 05:30 Urine Creatinine 135.8 mg/dL (0.1-20.0) H 09/14/16 18:00 Urine Sodium 30 mEq/L 09/14/16 18:00 Urine Total Protein 113 mg/dL (5-11.8) H 09/14/16 18:00
--- NOTE | 2016-09-16 13:06 | Progress Note ---
Assessment and Plan Current antibiotics: Vancomycin 1250 mg IV q24h 09/10 --> Zosyn 2.25 gm IV q8h 09/10 --> ASSESSMENT: Lizbeth Zimmerman is a 56 year old woman with type 2 diabetes mellitus, hypothyroidism, hypertension and COPD who was admitted to [facility] on 09/10/16 with right foot swelling, malodorous drainage from the 4th and 3rd digit, fluid filled blister on the dorsum of the foot. She underwent 4th & 5th amputation and drainage of abscess on 09/12 Problem list: 1. Right foot 4th digit gangrene with associated maceration -s/p amputation of 4th and 5th digit at the MP joint and debridement of large abscess 09/12 -Likely polymicrobial mixed aerobic and anaerobic infection with malodorous drainage. -Pathology showed evidence of active infection at surgical margins 2. Type 2 diabetes mellitus -Peripheral neuropathy 3. Leukocytosis -Reactive secondary to #1. 4. Renal failure -Improving -Rule out component of chronic kidney disease 5. Hypothyroidism -On replacement therapy 6. History of COPD PLAN: 1. Continue vancomycin and zosyn 2. Surgical cultures reveals- gram-negative rods; gram-positive rods, gram- positive cocci in clusters, gram-positive cocci in pairs all on final surgical culture - growth of "normal skin ade" 3. With pathology showing of infection at surgical margins will need long-term (4-6 weeks) of antibiotics. Will consider po antibiotics if the patient remains stable. 4. Glycemic control as per primary team Subjective Date of service: 09/16/16 Principal diagnosis: Diabetic foot infection Interval history: Patient awake and eating lunch with no voiced complaints or concerns. Patient states that she became upset when looking at her wound yesterday and that her blood sugars are also elevated last evening. Patient is afebrile Review of systems: Patient denies chest pain chest pressure. Patient denies shortness of breath cough sputum production. Patient is in no distress Objective - Exam Narrative Exam: GENERAL: Well-developed, obese female who is alert and in no acute distress. HEAD: Normocephalic. No lesions seen. EYES: Pupils are equal reactive to light and accommodation. There is no scleral icterus. EARS: No evidence of drainage THROAT: Oropharynx is normal with no evidence of oral candidiasis or pharyngitis. NECK: Supple. No enlargement of the thyroid gland. No significant cervical lymphadenopathy. No jugular venous distention at 60. LUNGS: Clear with no adventitious sounds. Diminished in the bases HEART: Regular rate. S1 and S2 are normal. There are no murmurs, gallops, clicks or rubs heard. ABDOMEN: Soft and nontender obese. Liver and spleen are not palpably enlarged or tender. No palpable masses. Bowel sounds are normoactive. EXTREMITIES: Right foot with wound VAC in place and surgical dressings. Moderate edema to mid pretibial area. NEUROLOGIC: Decreased sensation to pinprick in a stocking distribution. - Constitutional Vitals: Vital Signs Temp Pulse Resp BP Pulse Ox 99.8 F H 95 H 20 128/58 98 09/16/16 06:50 09/16/16 09:10 09/16/16 09:10 09/16/16 06:50 09/16/16 06:50 Temperature -Last 24 Hours Temperature 99.8 F Temperature 99.1 F Temperature 99.2 F - Labs CBC & Chem 7: 09/16/16 08:57 09/16/16 08:57 Labs: Abnormal lab results 09/15/16 09/15/16 09/16/16 Range/Units 15:05 20:56 06:09 WBC (4.5-11.0) K/mm3 MCH (28-32) pg Lymph % (Auto) (13.4-35.0) % Seg Neutrophils % (40.0-70.0) % Seg Neutrophils # (1.8-7.7) K/mm3 BUN (7-17) mg/dL Creatinine (0.7-1.2) mg/dL Glucose (65-100) mg/dL POC Glucose 244 H 314 H 130 H (70-105) Phosphorus (2.5-4.5) mg/dL 09/16/16 09/16/16 09/16/16 Range/Units 08:57 08:57 12:33 WBC 16.6 H (4.5-11.0) K/mm3 MCH 27 L (28-32) pg Lymph % (Auto) 11.1 L (13.4-35.0) % Seg Neutrophils % 80.7 H (40.0-70.0) % Seg Neutrophils # 13.4 H (1.8-7.7) K/mm3 BUN 22 H (7-17) mg/dL Creatinine 1.6 H (0.7-1.2) mg/dL Glucose 150 H (65-100) mg/dL POC Glucose 126 H (70-105) Phosphorus 2.0 L (2.5-4.5) mg/dL
--- NOTE | 2016-09-16 13:46 | Progress Note ---
Assessment and Plan Assessment and plan: 1. Sepsis present on admission secondary to right foot cellulitis versus abscess with gangrene to the toe- s/post debridement and fourth and fifth digit MP joints amputation. ID input also noted. Will continue current IV antibiotics with vancomycin and Zosyn. Pharmacy to adjust vancomycin level. wbc decreasing today. Continue wound care. cultures with no significant growth. awaiting pathology report. wound vac in place 2. Diabetes type 2-with insulin dependence-increase day time insulin regime to 25units, cont to monitor glucose 3. Hypothyroidism-cont thyroxine replacement 4. Morbid obesity- life style, modification advised- diet; weight loss and exercise 5. Acute kidney injury on chronic kidney disease stage III-secondary to visible due to nephropathy. Mild improvement noted today. Continue gentle hydration. Nephrology consult appreciated. Patient did use some NSAIDs. Continue to avoid all nephrotoxic medications. Also continue to hold ARB's diuretic. Renal ultrasound. Daily weights and strict ins and outs 6. Diabetic foot infection-present on admission. As noted #1 above. 7. DVT prophylaxis- heparin- Plan discussed with patient. History Interval history: F/U diabetic foot infection Patient seen and examined this morning in no acute distress, denies any pain in the amputated toes area. Dressing in place. no overt drainage, no new complaints Denies any chest pain, nausea, vomiting, diarrhea No fever noted blood pressure controlled No adverse events reported to me by nursing staff Hospitalist Physical - Physical exam Narrative exam: VITAL SIGNS: Reviewed. GENERAL: The patient appeared well nourished and normally developed. Vital signs as documented. HEAD: No signs of head trauma. EYES: Pupils are equal. Extraocular motions intact. EARS: Hearing grossly intact. MOUTH: Oropharynx is normal. NECK: No adenopathy, no JVD. CHEST: Chest with clear breath sounds bilaterally. No wheezes, rales, or rhonchi. CARDIAC: Regular rate and rhythm. S1 and S2, without murmurs, gallops, or rubs. VASCULAR: 2+ pitting edema with decreased peripheral pulses worse on the right lower extremity ABDOMEN: Soft, without detectable tenderness. No sign of distention. No rebound or guarding, and no masses palpated. Bowel Sounds normal. MUSCULOSKELETAL: Good range of motion of all major joints. Extremities edema, black Jakob bandage to the right foot status post toe amputation NEUROLOGIC EXAM: Alert and oriented x 3. No focal sensory or strength deficits. Speech normal. Follows commands. PSYCHIATRIC: Mood normal. SKIN: wound vac in place. - Constitutional Vitals: Temp Pulse Resp BP Pulse Ox 99.8 F H 95 H 20 128/58 98 09/16/16 06:50 09/16/16 09:10 09/16/16 09:10 09/16/16 06:50 09/16/16 06:50 General appearance: Present: no acute distress, well-nourished, obese Results - Labs CBC & Chem 7: 09/16/16 08:57 09/16/16 08:57 Labs: Laboratory Last Values WBC 16.6 K/mm3 (4.5-11.0) H 09/16/16 08:57 RBC 3.86 M/mm3 (3.65-5.03) 09/16/16 08:57 Hgb 10.5 gm/dl (10.1-14.3) 09/16/16 08:57 Hct 33.0 % (30.3-42.9) 09/16/16 08:57 MCV 86 fl (79-97) 09/16/16 08:57 MCH 27 pg (28-32) L 09/16/16 08:57 MCHC 32 % (30-34) 09/16/16 08:57 RDW 14.8 % (13.2-15.2) 09/16/16 08:57 Plt Count 328 K/mm3 (140-440) 09/16/16 08:57 Lymph % (Auto) 11.1 % (13.4-35.0) L 09/16/16 08:57 [place] % (Auto) 5.0 % (0.0-7.3) 09/16/16 08:57 Eos % (Auto) 2.6 % (0.0-4.3) 09/16/16 08:57 Baso % (Auto) 0.6 % (0.0-1.8) 09/16/16 08:57 Lymph # 1.8 K/mm3 (1.2-5.4) 09/16/16 08:57 [place] # 0.8 K/mm3 (0.0-0.8) 09/16/16 08:57 Eos # 0.4 K/mm3 (0.0-0.4) 09/16/16 08:57 Baso # 0.1 K/mm3 (0.0-0.1) 09/16/16 08:57 Add Manual Diff Complete 09/11/16 05:24 Total Counted 100 09/11/16 05:24 Seg Neutrophils % 80.7 % (40.0-70.0) H 09/16/16 08:57 Seg Neuts % (Manual) 80.0 % (40.0-70.0) H 09/11/16 05:24 Band Neutrophils % 0 % 09/11/16 05:24 Lymphocytes % (Manual) 11.0 % (13.4-35.0) L 09/11/16 05:24 Reactive Lymphs % (Man) 0 % 09/11/16 05:24 Monocytes % (Manual) 7.0 % (0.0-7.3) 09/11/16 05:24 Eosinophils % (Manual) 2.0 % (0.0-4.3) 09/11/16 05:24 Basophils % (Manual) 0 % (0.0-1.8) 09/11/16 05:24 Metamyelocytes % 0 % 09/11/16 05:24 Myelocytes % 0 % 09/11/16 05:24 Promyelocytes % 0 % 09/11/16 05:24 Blast Cells % 0 % 09/11/16 05:24 Nucleated RBC % Not Reportable 09/11/16 05:24 Seg Neutrophils # 13.4 K/mm3 (1.8-7.7) H 09/16/16 08:57 Seg Neutrophils # Man 16.2 K/mm3 (1.8-7.7) H 09/11/16 05:24 Band Neutrophils # 0.0 K/mm3 09/11/16 05:24 Lymphocytes # (Manual) 2.2 K/mm3 (1.2-5.4) 09/11/16 05:24 Abs React Lymphs (Man) 0.0 K/mm3 09/11/16 05:24 Monocytes # (Manual) 1.4 K/mm3 (0.0-0.8) H 09/11/16 05:24 Eosinophils # (Manual) 0.4 K/mm3 (0.0-0.4) 09/11/16 05:24 Basophils # (Manual) 0.0 K/mm3 (0.0-0.1) 09/11/16 05:24 Metamyelocytes # 0.0 K/mm3 09/11/16 05:24 Myelocytes # 0.0 K/mm3 09/11/16 05:24 Promyelocytes # 0.0 K/mm3 09/11/16 05:24 Blast Cells # 0.0 K/mm3 09/11/16 05:24 WBC Morphology Not Reportable 09/11/16 05:24 Hypersegmented Neuts Not Reportable 09/11/16 05:24 Hyposegmented Neuts Not Reportable 09/11/16 05:24 Hypogranular Neuts Not Reportable 09/11/16 05:24 Smudge Cells Not Reportable 09/11/16 05:24 Toxic Granulation Not Reportable 09/11/16 05:24 Toxic Vacuolation Not Reportable 09/11/16 05:24 Dohle Bodies Not Reportable 09/11/16 05:24 Pelger-Huet Anomaly Not Reportable 09/11/16 05:24 Nba Rods Not Reportable 09/11/16 05:24 Platelet Estimate Appears normal 09/11/16 05:24 Clumped Platelets Not Reportable 09/11/16 05:24 Plt Clumps, EDTA Not Reportable 09/11/16 05:24 Large Platelets Not Reportable 09/11/16 05:24 Giant Platelets Not Reportable 09/11/16 05:24 Platelet Satelliting Not Reportable 09/11/16 05:24 Plt Morphology Comment Not Reportable 09/11/16 05:24 RBC Morphology Not Reportable 09/11/16 05:24 Dimorphic RBCs Not Reportable 09/11/16 05:24 Polychromasia Few 09/11/16 05:24 Hypochromasia Few 09/11/16 05:24 Poikilocytosis Not Reportable 09/11/16 05:24 Anisocytosis 1+ 09/11/16 05:24 Microcytosis Not Reportable 09/11/16 05:24 Macrocytosis Not Reportable 09/11/16 05:24 Spherocytes Not Reportable 09/11/16 05:24 Pappenheimer Bodies Not Reportable 09/11/16 05:24 Sickle Cells Not Reportable 09/11/16 05:24 Target Cells Rare 09/11/16 05:24 Tear Drop Cells Not Reportable 09/11/16 05:24 Ovalocytes Not Reportable 09/11/16 05:24 Helmet Cells Not Reportable 09/11/16 05:24 [place] Bodies Not Reportable 09/11/16 05:24 [place] Rings Not Reportable 09/11/16 05:24 Barbie Cells Not Reportable 09/11/16 05:24 Bite Cells Not Reportable 09/11/16 05:24 Crenated Cell Not Reportable 09/11/16 05:24 Elliptocytes Not Reportable 09/11/16 05:24 Acanthocytes (Spur) Not Reportable 09/11/16 05:24 Rouleaux Not Reportable 09/11/16 05:24 Hemoglobin C Crystals Not Reportable 09/11/16 05:24 Schistocytes Not Reportable 09/11/16 05:24 Malaria parasites Not Reportable 09/11/16 05:24 ESR 77 mm/Hr (0-20) 09/10/16 12:25 Luis Bodies Not Reportable 09/11/16 05:24 Hem Pathologist Commnt No 09/11/16 05:24 PT 15.5 Sec. (12.2-14.9) H 09/10/16 12:25 INR 1.24 (0.87-1.13) H 09/10/16 12:25 APTT 29.5 Sec. (24.2-36.6) 09/10/16 12:25 Sodium 141 mmol/L (137-145) 09/16/16 08:57 Potassium 4.4 mmol/L (3.6-5.0) 09/16/16 08:57 Chloride 101.5 mmol/L (98-107) 09/16/16 08:57 Carbon Dioxide 24 mmol/L (22-30) 09/16/16 08:57 Anion Gap 20 mmol/L 09/16/16 08:57 BUN 22 mg/dL (7-17) H 09/16/16 08:57 Creatinine 1.6 mg/dL (0.7-1.2) H 09/16/16 08:57 Estimated GFR 40 ml/min 09/16/16 08:57 BUN/Creatinine Ratio 13.75 % 09/16/16 08:57 Glucose 150 mg/dL (65-100) H 09/16/16 08:57 POC Glucose 126 (70-105) H 09/16/16 12:33 Lactic Acid 1.5 mmol/L (0.7-2.0) 09/10/16 15:10 Calcium 8.5 mg/dL (8.4-10.2) 09/16/16 08:57 Phosphorus 2.0 mg/dL (2.5-4.5) L 09/16/16 08:57 Magnesium 2.1 mg/dL (1.7-2.3) 09/12/16 05:30 Total Bilirubin 0.7 mg/dL (0.1-1.2) 09/11/16 05:24 Direct Bilirubin 0.4 mg/dL (0-0.2) H 09/10/16 12:25 Indirect Bilirubin 0.6 mg/dL 09/10/16 12:25 AST 19 units/L (5-40) 09/11/16 05:24 ALT 16 units/L (7-56) 09/11/16 05:24 Alkaline Phosphatase 61 units/L (35-129) 09/11/16 05:24 C-Reactive Protein 33.40 mg/dL (0.00-1.30) H 09/10/16 12:25 Total Protein 7.9 g/dL (6.3-8.2) 09/11/16 05:24 Albumin 2.8 g/dL (3.9-5) L 09/11/16 05:24 Albumin/Globulin Ratio 0.5 % 09/11/16 05:24 PTH Intact 86.23 pg/mL (15-65) H 09/12/16 05:30 Urine Eosinophils None seen (None Seen) 09/14/16 18:00 Urine Creatinine 135.8 mg/dL (0.1-20.0) H 09/14/16 18:00 Urine Microalbumin 33.7 mg/dL (0.1-34.0) 09/14/16 18:00 Microalb/Creat Ratio 248.1 ug/mg 09/14/16 18:00 Protein/Creatinin Ratio 0.83 09/14/16 18:00 Urine Sodium 30 mEq/L 09/14/16 18:00 Urine Chloride 18.4 mEq/L (110-250) L 09/14/16 18:00 Urine Total Protein 113 mg/dL (5-11.8) H 09/14/16 18:00 Vancomycin Trough 19.9 ug/mL (5.0-20.0) 09/15/16 19:15 Blood Type B POSITIVE 09/10/16 12:25 Antibody Screen Negative 09/10/16 12:25
[2016-09-16] MEDS ORDERED: BENADRYL IV ONE (16:29)
[2016-09-16] MEDS: VANCOMYCIN VIAL 1,750 MG in NACL 0.9% 500 ML 500 ML IV SCH (17:00)
[2016-09-16] MEDS: LEVEMIR SUB-Q SCH (22:49)
[2016-09-17 05:45] LABS: Basophils % (Auto) 0.3 % (0.0-1.8); Eosinophils % (Auto) 2.3 % (0.0-4.3); Hematocrit 32.8 % (30.3-42.9); Hemoglobin 10.4 gm/dl (10.1-14.3); Mean Corpuscular HGB Conc 32 % (30-34); Mean Corpuscular Hemoglobin 27 pg (28-32); Mean Corpuscular Volume 85 fl (79-97); Platelet Count 320 K/mm3 (140-440); Red Blood Count 3.85 M/mm3 (3.65-5.03); White Blood Count 18.1 K/mm3 (4.5-11.0)
[2016-09-17 05:56] LABS: BUN/Creatinine Ratio 14.7; Calcium 8.6 mg/dL (8.4-10.2); Chloride 103.4 mmol/L (98-107); Phosphorous 2.9 mg/dL (2.5-4.5); Potassium 4.5 mmol/L (3.6-5.0)
[2016-09-17] MEDS: ZOSYN/NS 4.5GM/100ML 100 ML IV SCH ×3 (05:58→22:31)
[2016-09-17] MEDS: NORCO 5/325 PO PRN ×2 (06:00→22:31)
[2016-09-17] MEDS: SYNTHROID PO SCH (06:00)
--- NOTE | 2016-09-17 07:56 | Progress Note ---
Assessment and Plan (1) Acute renal failure (ARF) Current Visit: Yes Status: Acute Plan to address problem: mild rise in creatinine and BUN since yesterday will cont to monitor Renally dose medications Avoid nephrotoxic agents Obtain daily weight Strict intake and output (2) Diabetic infection of right foot Current Visit: Yes Status: Acute Plan to address problem: As per Infectious Disease and Orthopedic surgery s/p I&D 09/12 on broad spectrum antibiotics (3) Diabetes mellitus type 2, insulin dependent Current Visit: Yes Status: Acute Plan to address problem: As per primary team On insulin Subjective Date of service: 09/17/16 Principal diagnosis: Diabetic foot infection Interval history: denies overnight events, comfortable Objective - Vital Signs Vital signs: Vital Signs - 12hr 09/16/16 09/16/16 09/16/16 20:24 20:35 22:00 Temperature Pulse Rate [ Left Radial] Pulse Rate [ 89 Posterior Bilateral Throughout] Pulse Rate [ 64 Right Dorsalis Pedis] Respiratory 24 20 Rate Respiratory 18 Rate [Posterior Bilateral Throughout] Blood Pressure [Left Arm] O2 Sat by Pulse Oximetry 09/17/16 09/17/16 00:00 06:00 Temperature 98.8 F Pulse Rate [ 106 H Left Radial] Pulse Rate [ Posterior Bilateral Throughout] Pulse Rate [ Right Dorsalis Pedis] Respiratory 20 20 Rate Respiratory Rate [Posterior Bilateral Throughout] Blood Pressure 125/58 [Left Arm] O2 Sat by Pulse 100 Oximetry - General Appearance General appearance: well-developed, well-nourished, obese EENT: ATNC, PERRL, mucous membranes moist Neck: no JVD, no carotid bruit Respiratory: Present: Clear to Ascultation. Absent: Rales, [place] Cardiology: regular, S1S2 Gastrointestinal: normoactive bowel sounds, no tenderness, no distended, obese Integumentary: no rash, warm and dry Neurologic: no focal deficit, no asterixis, alert and oriented x3 Musculoskeletal: deferred Psychiatric: mood/affect appropriate, cooperative - Lab 09/17/16 04:45 09/17/16 04:45 Most recent lab results Calcium 8.6 mg/dL (8.4-10.2) 09/17/16 04:45 Phosphorus 2.9 mg/dL (2.5-4.5) D 09/17/16 04:45 Magnesium 2.1 mg/dL (1.7-2.3) 12/27/16 05:30 Urine Creatinine 135.8 mg/dL (0.1-20.0) H 09/14/16 18:00 Urine Sodium 30 mEq/L 09/14/16 18:00 Urine Total Protein 113 mg/dL (5-11.8) H 09/14/16 18:00
[2016-09-17] MEDS: PULMICORT IH SCH ×2 (08:43→19:37)
[2016-09-17] MEDS: BROVANA NEBU IH SCH ×2 (08:43→19:37)
--- NOTE | 2016-09-17 08:54 | Progress Note ---
Assessment and Plan Assessment and plan: 1. Sepsis present on admission secondary to right foot cellulitis versus abscess with gangrene to the toe- s/post debridement and fourth and fifth digit MP joints amputation. ID input also noted. Will continue current IV antibiotics with vancomycin and Zosyn. Pharmacy to adjust vancomycin level. wbc decreasing today. Continue wound care. cultures with no significant growth. awaiting pathology report. wound vac in place 2. Diabetes type 2-with insulin dependence-increase day time insulin regime to 25units, cont to monitor glucose 3. Hypothyroidism-cont thyroxine replacement 4. Morbid obesity- life style, modification advised- diet; weight loss and exercise 5. Acute kidney injury on chronic kidney disease stage III-secondary to visible due to nephropathy. Mild improvement noted today. Continue gentle hydration. Nephrology consult appreciated. Patient did use some NSAIDs. Continue to avoid all nephrotoxic medications. Also continue to hold ARB's diuretic. Renal ultrasound. Daily weights and strict ins and outs 6. Diabetic foot infection-present on admission. As noted #1 above. 7. DVT prophylaxis- heparin- Plan discussed with patient. Still awaiting pathology report. Today mild increased noted on leukocytosis, also mild increased creatinine will continue to monitor closely. History Interval history: F/U diabetic foot infection Patient seen and examined this morning in no acute distress, denies any pain in the amputated toes area. Dressing in place. no overt drainage, no new complaints. Patient reports ambulating unassisted. Denies any chest pain, nausea, vomiting, diarrhea No fever noted blood pressure controlled No adverse events reported to me by nursing staff Hospitalist Physical - Physical exam Narrative exam: VITAL SIGNS: Reviewed. GENERAL: The patient appeared well nourished and normally developed. Vital signs as documented. HEAD: No signs of head trauma. EYES: Pupils are equal. Extraocular motions intact. EARS: Hearing grossly intact. MOUTH: Oropharynx is normal. NECK: No adenopathy, no JVD. CHEST: Chest with clear breath sounds bilaterally. No wheezes, rales, or rhonchi. CARDIAC: Regular rate and rhythm. S1 and S2, without murmurs, gallops, or rubs. VASCULAR: 2+ pitting edema with decreased peripheral pulses worse on the right lower extremity ABDOMEN: Soft, without detectable tenderness. No sign of distention. No rebound or guarding, and no masses palpated. Bowel Sounds normal. MUSCULOSKELETAL: Good range of motion of all major joints. Extremities edema, black Jakob bandage to the right foot status post toe amputation NEUROLOGIC EXAM: Alert and oriented x 3. No focal sensory or strength deficits. Speech normal. Follows commands. PSYCHIATRIC: Mood normal. SKIN: wound vac in place. - Constitutional Vitals: Temp Pulse Resp BP Pulse Ox 98.8 F 101 H 18 125/58 100 09/17/16 00:00 09/17/16 08:43 09/17/16 08:43 09/17/16 00:00 09/17/16 00:00 General appearance: Present: no acute distress, well-nourished, obese Results - Labs CBC & Chem 7: 09/17/16 04:45 09/17/16 04:45 Labs: Laboratory Last Values WBC 18.1 K/mm3 (4.5-11.0) H 09/17/16 04:45 RBC 3.85 M/mm3 (3.65-5.03) 09/17/16 04:45 Hgb 10.4 gm/dl (10.1-14.3) 09/17/16 04:45 Hct 32.8 % (30.3-42.9) 09/17/16 04:45 MCV 85 fl (79-97) 09/17/16 04:45 MCH 27 pg (28-32) L 09/17/16 04:45 MCHC 32 % (30-34) 09/17/16 04:45 RDW 15.0 % (13.2-15.2) 09/17/16 04:45 Plt Count 320 K/mm3 (140-440) 09/17/16 04:45 Lymph % (Auto) 10.8 % (13.4-35.0) L 09/17/16 04:45 [place] % (Auto) 5.3 % (0.0-7.3) 09/17/16 04:45 Eos % (Auto) 2.3 % (0.0-4.3) 09/17/16 04:45 Baso % (Auto) 0.3 % (0.0-1.8) 09/17/16 04:45 Lymph # 1.9 K/mm3 (1.2-5.4) 09/17/16 04:45 [place] # 1.0 K/mm3 (0.0-0.8) H 09/17/16 04:45 Eos # 0.4 K/mm3 (0.0-0.4) 09/17/16 04:45 Baso # 0.1 K/mm3 (0.0-0.1) 09/17/16 04:45 Add Manual Diff Complete 09/11/16 05:24 Total Counted 100 09/11/16 05:24 Seg Neutrophils % 81.3 % (40.0-70.0) H 09/17/16 04:45 Seg Neuts % (Manual) 80.0 % (40.0-70.0) H 09/11/16 05:24 Band Neutrophils % 0 % 09/11/16 05:24 Lymphocytes % (Manual) 11.0 % (13.4-35.0) L 09/11/16 05:24 Reactive Lymphs % (Man) 0 % 09/11/16 05:24 Monocytes % (Manual) 7.0 % (0.0-7.3) 09/11/16 05:24 Eosinophils % (Manual) 2.0 % (0.0-4.3) 09/11/16 05:24 Basophils % (Manual) 0 % (0.0-1.8) 09/11/16 05:24 Metamyelocytes % 0 % 09/11/16 05:24 Myelocytes % 0 % 09/11/16 05:24 Promyelocytes % 0 % 09/11/16 05:24 Blast Cells % 0 % 09/11/16 05:24 Nucleated RBC % Not Reportable 09/11/16 05:24 Seg Neutrophils # 14.7 K/mm3 (1.8-7.7) H 09/17/16 04:45 Seg Neutrophils # Man 16.2 K/mm3 (1.8-7.7) H 09/11/16 05:24 Band Neutrophils # 0.0 K/mm3 09/11/16 05:24 Lymphocytes # (Manual) 2.2 K/mm3 (1.2-5.4) 09/11/16 05:24 Abs React Lymphs (Man) 0.0 K/mm3 09/11/16 05:24 Monocytes # (Manual) 1.4 K/mm3 (0.0-0.8) H 09/11/16 05:24 Eosinophils # (Manual) 0.4 K/mm3 (0.0-0.4) 09/11/16 05:24 Basophils # (Manual) 0.0 K/mm3 (0.0-0.1) 09/11/16 05:24 Metamyelocytes # 0.0 K/mm3 09/11/16 05:24 Myelocytes # 0.0 K/mm3 09/11/16 05:24 Promyelocytes # 0.0 K/mm3 09/11/16 05:24 Blast Cells # 0.0 K/mm3 09/11/16 05:24 WBC Morphology Not Reportable 09/11/16 05:24 Hypersegmented Neuts Not Reportable 09/11/16 05:24 Hyposegmented Neuts Not Reportable 09/11/16 05:24 Hypogranular Neuts Not Reportable 09/11/16 05:24 Smudge Cells Not Reportable 09/11/16 05:24 Toxic Granulation Not Reportable 09/11/16 05:24 Toxic Vacuolation Not Reportable 09/11/16 05:24 Dohle Bodies Not Reportable 09/11/16 05:24 [place]-Huet Anomaly Not Reportable 09/11/16 05:24 Nba Rods Not Reportable 09/11/16 05:24 Platelet Estimate Appears normal 09/11/16 05:24 Clumped Platelets Not Reportable 09/11/16 05:24 Plt Clumps, EDTA Not Reportable 09/11/16 05:24 Large Platelets Not Reportable 09/11/16 05:24 Giant Platelets Not Reportable 09/11/16 05:24 Platelet Satelliting Not Reportable 09/11/16 05:24 Plt Morphology Comment Not Reportable 09/11/16 05:24 RBC Morphology Not Reportable 09/11/16 05:24 Dimorphic RBCs Not Reportable 09/11/16 05:24 Polychromasia Few 09/11/16 05:24 Hypochromasia Few 09/11/16 05:24 Poikilocytosis Not Reportable 09/11/16 05:24 Anisocytosis 1+ 09/11/16 05:24 Microcytosis Not Reportable 09/11/16 05:24 Macrocytosis Not Reportable 09/11/16 05:24 Spherocytes Not Reportable 09/11/16 05:24 Pappenheimer Bodies Not Reportable 09/11/16 05:24 Sickle Cells Not Reportable 09/11/16 05:24 Target Cells Rare 09/11/16 05:24 Tear Drop Cells Not Reportable 09/11/16 05:24 Ovalocytes Not Reportable 09/11/16 05:24 Helmet Cells Not Reportable 09/11/16 05:24 [place] Bodies Not Reportable 09/11/16 05:24 [place] Rings Not Reportable 09/11/16 05:24 Barbie Cells Not Reportable 09/11/16 05:24 Bite Cells Not Reportable 09/11/16 05:24 Crenated Cell Not Reportable 09/11/16 05:24 Elliptocytes Not Reportable 09/11/16 05:24 Acanthocytes (Spur) Not Reportable 09/11/16 05:24 Rouleaux Not Reportable 09/11/16 05:24 Hemoglobin C Crystals Not Reportable 09/11/16 05:24 Schistocytes Not Reportable 09/11/16 05:24 Malaria parasites Not Reportable 09/11/16 05:24 ESR 77 mm/Hr (0-20) 09/10/16 12:25 Luis Bodies Not Reportable 09/11/16 05:24 Hem Pathologist Commnt No 09/11/16 05:24 PT 15.5 Sec. (12.2-14.9) H 09/10/16 12:25 INR 1.24 (0.87-1.13) H 09/10/16 12:25 APTT 29.5 Sec. (24.2-36.6) 09/10/16 12:25 Sodium 142 mmol/L (137-145) 09/17/16 04:45 Potassium 4.5 mmol/L (3.6-5.0) 09/17/16 04:45 Chloride 103.4 mmol/L (98-107) 09/17/16 04:45 Carbon Dioxide 26 mmol/L (22-30) 09/17/16 04:45 Anion Gap 17 mmol/L 09/17/16 04:45 BUN 25 mg/dL (7-17) H 09/17/16 04:45 Creatinine 1.7 mg/dL (0.7-1.2) H 09/17/16 04:45 Estimated GFR 38 ml/min 09/17/16 04:45 BUN/Creatinine Ratio 14.70 % 09/17/16 04:45 Glucose 135 mg/dL (65-100) H 09/17/16 04:45 POC Glucose 138 (70-105) H 09/17/16 06:24 Lactic Acid 1.5 mmol/L (0.7-2.0) 09/10/16 15:10 Calcium 8.6 mg/dL (8.4-10.2) 09/17/16 04:45 Phosphorus 2.9 mg/dL (2.5-4.5) D 09/17/16 04:45 Magnesium 2.1 mg/dL (1.7-2.3) 09/12/16 05:30 Total Bilirubin 0.7 mg/dL (0.1-1.2) 09/11/16 05:24 Direct Bilirubin 0.4 mg/dL (0-0.2) H 09/10/16 12:25 Indirect Bilirubin 0.6 mg/dL 09/10/16 12:25 AST 19 units/L (5-40) 09/11/16 05:24 ALT 16 units/L (7-56) 09/11/16 05:24 Alkaline Phosphatase 61 units/L (35-129) 09/11/16 05:24 C-Reactive Protein 33.40 mg/dL (0.00-1.30) H 09/10/16 12:25 Total Protein 7.9 g/dL (6.3-8.2) 09/11/16 05:24 Albumin 2.8 g/dL (3.9-5) L 09/11/16 05:24 Albumin/Globulin Ratio 0.5 % 09/11/16 05:24 PTH Intact 86.23 pg/mL (15-65) H 09/12/16 05:30 Urine Eosinophils None seen (None Seen) 09/14/16 18:00 Urine Creatinine 135.8 mg/dL (0.1-20.0) H 09/14/16 18:00 Urine Microalbumin 33.7 mg/dL (0.1-34.0) 09/14/16 18:00 Microalb/Creat Ratio 248.1 ug/mg 09/14/16 18:00 Protein/Creatinin Ratio 0.83 09/14/16 18:00 Urine Sodium 30 mEq/L 09/14/16 18:00 Urine Chloride 18.4 mEq/L (110-250) L 09/14/16 18:00 Urine Total Protein 113 mg/dL (5-11.8) H 09/14/16 18:00 Vancomycin Trough 19.9 ug/mL (5.0-20.0) 09/15/16 19:15 Blood Type B POSITIVE 09/10/16 12:25 Antibody Screen Negative 09/10/16 12:25
[2016-09-17] MEDS: CLARITIN PO SCH (11:06)
[2016-09-17] MEDS ORDERED: BENADRYL IV ONE (11:46)
[2016-09-17] MEDS: VANCOMYCIN VIAL 1,750 MG in NACL 0.9% 500 ML 500 ML IV SCH (13:33)
--- NOTE | 2016-09-17 13:58 | Progress Note ---
Assessment and Plan Current antibiotics: Vancomycin 1250 mg IV q24h 09/10 --> Zosyn 2.25 gm IV q8h 09/10 --> ASSESSMENT: Lizbeth Zimmerman is a 56 year old woman with type 2 diabetes mellitus, hypothyroidism, hypertension and COPD who was admitted to [facility] on 09/10/16 with right foot swelling, malodorous drainage from the 4th and 3rd digit, fluid filled blister on the dorsum of the foot. She underwent 4th & 5th amputation and drainage of abscess on 09/12 Problem list: 1. Right foot 4th digit gangrene with associated maceration -s/p amputation of 4th and 5th digit at the MP joint and debridement of large abscess 09/12 -Likely polymicrobial mixed aerobic and anaerobic infection with malodorous drainage. -Pathology showed evidence of active infection at surgical margins 2. Type 2 diabetes mellitus -Peripheral neuropathy 3. Leukocytosis -Reactive secondary to #1. 4. Renal failure -Improving -Rule out component of chronic kidney disease 5. Hypothyroidism -On replacement therapy 6. History of COPD PLAN: 1. Continue vancomycin and zosyn 2. Surgical cultures reveals- gram-negative rods; gram-positive rods, gram- positive cocci in clusters, gram-positive cocci in pairs all on final surgical culture - growth of "normal skin ade" 3. With pathology showing of infection at surgical margins will need long-term (4-6 weeks) of antibiotics. 4. Glycemic control as per primary team Subjective Date of service: 09/17/16 Principal diagnosis: Diabetic foot infection Interval history: No specific complaints. Patient notes good success with enema. Objective - Exam Narrative Exam: GENERAL: Well-developed, obese female who is alert and in no acute distress. HEAD: Normocephalic. No lesions seen. EYES: Pupils are equal reactive to light and accommodation. There is no scleral icterus. EARS: No evidence of drainage THROAT: Oropharynx is normal with no evidence of oral candidiasis or pharyngitis. NECK: Supple. No enlargement of the thyroid gland. No significant cervical lymphadenopathy. No jugular venous distention at 60. LUNGS: Clear with no adventitious sounds. Diminished in the bases HEART: Regular rate. S1 and S2 are normal. There are no murmurs, gallops, clicks or rubs heard. ABDOMEN: Soft and nontender obese. Liver and spleen are not palpably enlarged or tender. No palpable masses. Bowel sounds are normoactive. EXTREMITIES: Right foot with wound VAC in place and surgical dressings. Moderate edema to mid pretibial area. NEUROLOGIC: Decreased sensation to pinprick in a stocking distribution. - Constitutional Vitals: Vital Signs Temp Pulse Resp BP Pulse Ox 98.7 F 95 H 17 122/67 99 09/17/16 07:45 09/17/16 08:50 09/17/16 08:50 09/17/16 07:45 09/17/16 07:45 Temperature -Last 24 Hours Temperature 98.7 F Temperature 98.8 F Temperature 98.7 F - Labs CBC & Chem 7: 09/17/16 04:45 09/17/16 04:45 Labs: Abnormal lab results 09/16/16 09/16/16 09/17/16 Range/Units 17:09 21:19 04:45 WBC 18.1 H (4.5-11.0) K/mm3 MCH 27 L (28-32) pg Lymph % (Auto) 10.8 L (13.4-35.0) % [place] # 1.0 H (0.0-0.8) K/mm3 Seg Neutrophils % 81.3 H (40.0-70.0) % Seg Neutrophils # 14.7 H (1.8-7.7) K/mm3 BUN (7-17) mg/dL Creatinine (0.7-1.2) mg/dL Glucose (65-100) mg/dL POC Glucose 145 H 179 H (70-105) 09/17/16 09/17/16 Range/Units 04:45 06:24 WBC (4.5-11.0) K/mm3 MCH (28-32) pg Lymph % (Auto) (13.4-35.0) % [place] # (0.0-0.8) K/mm3 Seg Neutrophils % (40.0-70.0) % Seg Neutrophils # (1.8-7.7) K/mm3 BUN 25 H (7-17) mg/dL Creatinine 1.7 H (0.7-1.2) mg/dL Glucose 135 H (65-100) mg/dL POC Glucose 138 H (70-105)
[2016-09-17] MEDS: LEVEMIR SUB-Q SCH (23:03)
[2016-09-18] MEDS: VANCOMYCIN VIAL 1,750 MG in NACL 0.9% 500 ML 500 ML IV SCH (05:09)
[2016-09-18] MEDS: SYNTHROID PO SCH (05:09)
[2016-09-18] MEDS: ZOSYN/NS 4.5GM/100ML 100 ML IV SCH ×3 (05:21→22:12)
[2016-09-18 06:35] LABS: Basophils % (Auto) 0.3 % (0.0-1.8); Hematocrit 32.7 % (30.3-42.9); Hemoglobin 10.2 gm/dl (10.1-14.3); Mean Corpuscular HGB Conc 31 % (30-34); Mean Corpuscular Hemoglobin 27 pg (28-32); Mean Corpuscular Volume 86 fl (79-97); Platelet Count 306 K/mm3 (140-440); Red Blood Count 3.82 M/mm3 (3.65-5.03); Red Cell Distribution Width 15.2 % (13.2-15.2); White Blood Count 18.1 K/mm3 (4.5-11.0)
[2016-09-18 06:45] LABS: BUN/Creatinine Ratio 17.22; Calcium 8.4 mg/dL (8.4-10.2); Chloride 102.3 mmol/L (98-107); Phosphorous 3.2 mg/dL (2.5-4.5); Potassium 4.4 mmol/L (3.6-5.0)
[2016-09-18] MEDS: PULMICORT IH SCH ×2 (07:34→19:28)
[2016-09-18] MEDS: BROVANA NEBU IH SCH ×2 (07:34→19:28)
[2016-09-18] MEDS: NORCO 5/325 PO PRN ×2 (08:29→16:03)
--- NOTE | 2016-09-18 08:47 | Discharge Summary ---
Providers - Providers Date of Admission: 09/10/16 21:14 Date of discharge: 09/21/16 Attending physician: ROXY ORELLANA MD 09/17/16 20:16 Consult to Wound/ET Nurse [CONS] Routine Reason For Exam: wound eval/ skin trauma rt post thigh 09/10/16 21:35 Consult to Physician [CONS] Routine Consulting Provider: ROBERT DE LA TORRE Reason For Exam: Rt leg cellulitis/Abscess Place consult to:: dr. caban Notified:: answering service Phone number called:: [phone] Was contact made?: Yes If yes, spoke with:: lalo Time called:: 09:07 09/11/16 07:29 Consult to Physician [CONS] Routine Consulting Provider: AUGUSTUS JAQUEZ Reason For Exam: acute on chronic renal failure Cr 3.7 Place consult to:: danni Notified:: Phone number called:: [phone] Was contact made?: Yes If yes, spoke with:: dr. jaquez Time called:: 09:24 09/11/16 07:53 Consult to Wound/ET Nurse [CONS] Routine Reason For Exam: wound eval 09/11/16 10:03 Consult to Physician [CONS] Routine Consulting Provider: SAROJ AKERS V Reason For Exam: RT diabetic foot infection- needing debriding Place consult to:: dr. akers Notified:: office Phone number called:: [phone] Was contact made?: Yes If yes, spoke with:: elke Time called:: 11:09 09/12/16 Physical Therapy Evaluation and Treat [CONS] Routine Comment: Reason For Exam: s/p amputation 09/12/16 14:27 Consult Acute Rehabilitation [CONS] Routine Consulting Provider: GISSELLE CEBALLOS Reason For Exam: eval for acute rehab 09/12/16 14:35 Consult to Wound/ET Nurse [CONS] Routine Reason For Exam: wound eval Primary care physician: INDIA ESCALANTE Hospitalization Reason for admission: Diabetic foot ulcer Condition: Stable Hospital course: Patient is a pleasant 56-year-old woman with type 2 diabetes mellitus, hypothyroidism, hypertension and COPD who was admitted to [facility] on 09/10/16 with right foot swelling, malodorous drainage from the 4th and 3rd digit, fluid filled blister on the dorsum of the foot. She underwent 4th & 5th amputation and drainage of large abscess on 09/12. A wound VAC was placed. She was treated for sepsis with vancomycin and Zosyn blood cultures were unrevealing, surgical cultures reveals- gram-negative rods; gram-positive rods, gram- positive cocci in clusters, gram-positive cocci in pairs all on final surgical culture - growth of "normal skin ade" pathology showed infection at surgical margins, she did have leukocytosis with no fever this was felt to be reactive. Blood sugar was well controlled patient was on losartan and hydrochlorothiazide , in addition with metformin and Lasix in addition to insulin. I did discontinue the losartan, hydrochlorothiazide and metformin in setting of acute on chronic kidney injury. Follow G was on board. On discharge patient suspected to follow with ID, nephrology, surgery on her primary care physician. There are hospitalization she did develop a body rash noted.Antibiotics were was started on changed but rash persisted, finally discontinued the morphine. He was started on short course of steroids. The PPI. Stated that the discharge tomorrow if she is just waiting the wound VAC as this has been improved by the insurance company. 1. Sepsis present on admission secondary to right foot cellulitis with gangrene to the toe 2. Diabetes type 2 3. Hypothyroidism 4. Morbid obesity 5. Acute kidney injury on chronic kidney disease stage III 6. Diabetic foot infection 7. Fluid overload- 8. Pleuritic rash Disposition: DC/TX HOME UNDER HOME HEALTH Time spent for discharge: 35 mins - Discharge Diagnoses (1) Diabetes mellitus type 2, insulin dependent Status: Chronic (2) Diabetic infection of right foot Status: Chronic (3) Gas gangrene of foot Status: Resolved Comment: s/p amputation (4) Hypertension Status: Acute (5) Leukocytosis (leucocytosis) Status: Acute Qualifiers: Leukocytosis type: bandemia Qualified Code(s): D72.825 - Bandemia (6) Acute kidney injury superimposed on CKD Status: Acute (7) COPD (chronic obstructive pulmonary disease) Status: Chronic (8) Hypothyroidism Status: Chronic (9) Morbid obesity Status: Chronic Core Measure Documentation - Palliative Care Palliative Care/ Comfort Measures: Not Applicable - Core Measures Any of the following diagnoses?: none - VTE Discharge Requirements Deep Vein Thrombosis/Pulmonary Embolism Present on Admission: No Exam - Physical Exam Narrative exam: VITAL SIGNS: Reviewed. GENERAL: The patient appeared well nourished and normally developed. Vital signs as documented. HEAD: No signs of head trauma. EYES: Pupils are equal. Extraocular motions intact. EARS: Hearing grossly intact. MOUTH: Oropharynx is normal. NECK: No adenopathy, no JVD. CHEST: Chest with clear breath sounds bilaterally. No wheezes, rales, or rhonchi. CARDIAC: Regular rate and rhythm. S1 and S2, without murmurs, gallops, or rubs. VASCULAR: 2+ pitting edema with decreased peripheral pulses worse on the right lower extremity ABDOMEN: Soft, without detectable tenderness. No sign of distention. No rebound or guarding, and no masses palpated. Bowel Sounds normal. MUSCULOSKELETAL: Good range of motion of all major joints. Extremities edema, black Jakob bandage to the right foot status post toe amputation NEUROLOGIC EXAM: Alert and oriented x 3. No focal sensory or strength deficits. Speech normal. Follows commands. PSYCHIATRIC: Mood normal. SKIN: wound vac in place. - Constitutional Vitals: Temp Pulse Resp BP Pulse Ox 99.2 F 96 H 24 113/63 99 09/18/16 08:22 09/18/16 08:22 09/18/16 08:22 09/18/16 08:22 09/18/16 08:22 Plan Activity: advance as tolerated, fall precautions Diet: diabetic Special Instructions: record daily weights, record daily BP diary, record blood sugar diary Durable Medical Equipment Needed Upon Discharge: Walker-Rolling, Bedside Commode , other (wound vac, surgical harris as approved by ortho) Follow up with: INDIA ESCALANTE MD [Primary Care Provider] - 3-5 Days STARLA OLSON MD [Staff Physician] - 7 Days SAROJ AKERS MD [Staff Physician] - 7 Days ROBERT DE LA TORRE MD [Staff Physician] - 7 Days Prescriptions: metroNIDAZOLE [Flagyl] 500 mg PO Q8HR 30 Days Levofloxacin [Levaquin] 750 mg PO QDAY #28 tablet HYDROcodone/APAP 5-325 [[place] 5-325 mg TAB] 2 each PO Q8H PRN #20 tablet PRN Reason: Moderate Pain Prednisone [predniSONE 5 mg (6-Day Pack, 21 Tabs)] 5 mg PO .TAPER #1 tab.ds.pk
--- NOTE | 2016-09-18 09:03 | Progress Note ---
Assessment and Plan Assessment and plan: 1. Sepsis present on admission secondary to right foot cellulitis versus abscess with gangrene to the toe- s/post debridement and fourth and fifth digit MP joints amputation. ID input also noted. Will continue current IV antibiotics with vancomycin and Zosyn. Pharmacy to adjust vancomycin level. wbc likely reactive continue wound care. cultures with no significant growth. awaiting pathology report. wound vac in place 2. Diabetes type 2-with insulin dependence-increase day time insulin regime to 25units, cont to monitor glucose 3. Hypothyroidism-cont thyroxine replacement 4. Morbid obesity- life style, modification advised- diet; weight loss and exercise 5. Acute kidney injury on chronic kidney disease stage III-secondary to visible due to nephropathy. Mild improvement noted today. Continue gentle hydration. Nephrology consult appreciated. Patient did use some NSAIDs. Continue to avoid all nephrotoxic medications. Also continue to hold ARB's diuretic. Renal ultrasound. Daily weights and strict ins and outs 6. Diabetic foot infection-present on admission. As noted #1 above. 7. DVT prophylaxis- heparin- Disposition-awaiting the wound VAC approval. Will need prolonged antibiotics. We'll place a PICC line. History Interval history: F/U diabetic foot infection Patient seen and examined this morning in no acute distress, denies any pain in the amputated toes area. Dressing and wound VAC in place. no overt drainage, no new complaints. Patient reports ambulating unassisted. Denies any chest pain, nausea, vomiting, diarrhea No fever noted blood pressure controlled No adverse events reported to me by nursing staff Hospitalist Physical - Physical exam Narrative exam: VITAL SIGNS: Reviewed. GENERAL: The patient appeared well nourished and normally developed. Vital signs as documented. HEAD: No signs of head trauma. EYES: Pupils are equal. Extraocular motions intact. EARS: Hearing grossly intact. MOUTH: Oropharynx is normal. NECK: No adenopathy, no JVD. CHEST: Chest with clear breath sounds bilaterally. No wheezes, rales, or rhonchi. CARDIAC: Regular rate and rhythm. S1 and S2, without murmurs, gallops, or rubs. VASCULAR: 2+ pitting edema with decreased peripheral pulses worse on the right lower extremity ABDOMEN: Soft, without detectable tenderness. No sign of distention. No rebound or guarding, and no masses palpated. Bowel Sounds normal. MUSCULOSKELETAL: Good range of motion of all major joints. Extremities edema, black Jakob bandage to the right foot status post toe amputation NEUROLOGIC EXAM: Alert and oriented x 3. No focal sensory or strength deficits. Speech normal. Follows commands. PSYCHIATRIC: Mood normal. SKIN: wound vac in place. - Constitutional Vitals: Temp Pulse Resp BP Pulse Ox 99.2 F 96 H 24 113/63 99 09/18/16 08:22 09/18/16 08:22 09/18/16 08:22 09/18/16 08:22 09/18/16 08:22 General appearance: Present: no acute distress, well-nourished, obese Results - Labs CBC & Chem 7: 09/18/16 06:08 09/18/16 06:08 Labs: Laboratory Last Values WBC 18.1 K/mm3 (4.5-11.0) H 09/18/16 06:08 RBC 3.82 M/mm3 (3.65-5.03) 09/18/16 06:08 Hgb 10.2 gm/dl (10.1-14.3) 09/18/16 06:08 Hct 32.7 % (30.3-42.9) 09/18/16 06:08 MCV 86 fl (79-97) 09/18/16 06:08 MCH 27 pg (28-32) L 09/18/16 06:08 MCHC 31 % (30-34) 09/18/16 06:08 RDW 15.2 % (13.2-15.2) 09/18/16 06:08 Plt Count 306 K/mm3 (140-440) 09/18/16 06:08 Lymph % (Auto) 11.1 % (13.4-35.0) L 09/18/16 06:08 [place] % (Auto) 5.8 % (0.0-7.3) 09/18/16 06:08 Eos % (Auto) 3.0 % (0.0-4.3) 09/18/16 06:08 Baso % (Auto) 0.3 % (0.0-1.8) 09/18/16 06:08 Lymph # 2.0 K/mm3 (1.2-5.4) 09/18/16 06:08 [place] # 1.1 K/mm3 (0.0-0.8) H 09/18/16 06:08 Eos # 0.5 K/mm3 (0.0-0.4) H 09/18/16 06:08 Baso # 0.0 K/mm3 (0.0-0.1) 09/18/16 06:08 Add Manual Diff Complete 09/11/16 05:24 Total Counted 100 09/11/16 05:24 Seg Neutrophils % 79.8 % (40.0-70.0) H 09/18/16 06:08 Seg Neuts % (Manual) 80.0 % (40.0-70.0) H 09/11/16 05:24 Band Neutrophils % 0 % 09/11/16 05:24 Lymphocytes % (Manual) 11.0 % (13.4-35.0) L 09/11/16 05:24 Reactive Lymphs % (Man) 0 % 09/11/16 05:24 Monocytes % (Manual) 7.0 % (0.0-7.3) 09/11/16 05:24 Eosinophils % (Manual) 2.0 % (0.0-4.3) 09/11/16 05:24 Basophils % (Manual) 0 % (0.0-1.8) 09/11/16 05:24 Metamyelocytes % 0 % 09/11/16 05:24 Myelocytes % 0 % 09/11/16 05:24 Promyelocytes % 0 % 09/11/16 05:24 Blast Cells % 0 % 09/11/16 05:24 Nucleated RBC % Not Reportable 09/11/16 05:24 Seg Neutrophils # 14.4 K/mm3 (1.8-7.7) H 09/18/16 06:08 Seg Neutrophils # Man 16.2 K/mm3 (1.8-7.7) H 09/11/16 05:24 Band Neutrophils # 0.0 K/mm3 09/11/16 05:24 Lymphocytes # (Manual) 2.2 K/mm3 (1.2-5.4) 09/11/16 05:24 Abs React Lymphs (Man) 0.0 K/mm3 09/11/16 05:24 Monocytes # (Manual) 1.4 K/mm3 (0.0-0.8) H 09/11/16 05:24 Eosinophils # (Manual) 0.4 K/mm3 (0.0-0.4) 09/11/16 05:24 Basophils # (Manual) 0.0 K/mm3 (0.0-0.1) 09/11/16 05:24 Metamyelocytes # 0.0 K/mm3 09/11/16 05:24 Myelocytes # 0.0 K/mm3 09/11/16 05:24 Promyelocytes # 0.0 K/mm3 09/11/16 05:24 Blast Cells # 0.0 K/mm3 09/11/16 05:24 WBC Morphology Not Reportable 09/11/16 05:24 Hypersegmented Neuts Not Reportable 09/11/16 05:24 Hyposegmented Neuts Not Reportable 09/11/16 05:24 Hypogranular Neuts Not Reportable 09/11/16 05:24 Smudge Cells Not Reportable 09/11/16 05:24 Toxic Granulation Not Reportable 09/11/16 05:24 Toxic Vacuolation Not Reportable 09/11/16 05:24 Dohle Bodies Not Reportable 09/11/16 05:24 Pelger-Huet Anomaly Not Reportable 09/11/16 05:24 Nba Rods Not Reportable 09/11/16 05:24 Platelet Estimate Appears normal 09/11/16 05:24 Clumped Platelets Not Reportable 09/11/16 05:24 Plt Clumps, EDTA Not Reportable 09/11/16 05:24 Large Platelets Not Reportable 09/11/16 05:24 Giant Platelets Not Reportable 09/11/16 05:24 Platelet Satelliting Not Reportable 09/11/16 05:24 Plt Morphology Comment Not Reportable 09/11/16 05:24 RBC Morphology Not Reportable 09/11/16 05:24 Dimorphic RBCs Not Reportable 09/11/16 05:24 Polychromasia Few 09/11/16 05:24 Hypochromasia Few 09/11/16 05:24 Poikilocytosis Not Reportable 09/11/16 05:24 Anisocytosis 1+ 09/11/16 05:24 Microcytosis Not Reportable 09/11/16 05:24 Macrocytosis Not Reportable 09/11/16 05:24 Spherocytes Not Reportable 09/11/16 05:24 Pappenheimer Bodies Not Reportable 09/11/16 05:24 Sickle Cells Not Reportable 09/11/16 05:24 Target Cells Rare 09/11/16 05:24 Tear Drop Cells Not Reportable 09/11/16 05:24 Ovalocytes Not Reportable 09/11/16 05:24 Helmet Cells Not Reportable 09/11/16 05:24 [place] Bodies Not Reportable 09/11/16 05:24 [place] Rings Not Reportable 09/11/16 05:24 Barbie Cells Not Reportable 09/11/16 05:24 Bite Cells Not Reportable 09/11/16 05:24 Crenated Cell Not Reportable 09/11/16 05:24 Elliptocytes Not Reportable 09/11/16 05:24 Acanthocytes (Spur) Not Reportable 09/11/16 05:24 Rouleaux Not Reportable 09/11/16 05:24 Hemoglobin C Crystals Not Reportable 09/11/16 05:24 Schistocytes Not Reportable 09/11/16 05:24 Malaria parasites Not Reportable 09/11/16 05:24 ESR 77 mm/Hr (0-20) 09/10/16 12:25 Luis Bodies Not Reportable 09/11/16 05:24 Hem Pathologist Commnt No 09/11/16 05:24 PT 15.5 Sec. (12.2-14.9) H 09/10/16 12:25 INR 1.24 (0.87-1.13) H 09/10/16 12:25 APTT 29.5 Sec. (24.2-36.6) 09/10/16 12:25 Sodium 140 mmol/L (137-145) 09/18/16 06:08 Potassium 4.4 mmol/L (3.6-5.0) 09/18/16 06:08 Chloride 102.3 mmol/L (98-107) 09/18/16 06:08 Carbon Dioxide 23 mmol/L (22-30) 09/18/16 06:08 Anion Gap 19 mmol/L 09/18/16 06:08 BUN 31 mg/dL (7-17) H 09/18/16 06:08 Creatinine 1.8 mg/dL (0.7-1.2) H 09/18/16 06:08 Estimated GFR 35 ml/min 09/18/16 06:08 BUN/Creatinine Ratio 17.22 % 09/18/16 06:08 Glucose 112 mg/dL (65-100) H 09/18/16 06:08 POC Glucose 98 (70-105) 09/18/16 07:03 Lactic Acid 1.5 mmol/L (0.7-2.0) 09/10/16 15:10 Calcium 8.4 mg/dL (8.4-10.2) 09/18/16 06:08 Phosphorus 3.2 mg/dL (2.5-4.5) 09/18/16 06:08 Magnesium 2.1 mg/dL (1.7-2.3) 09/12/16 05:30 Total Bilirubin 0.7 mg/dL (0.1-1.2) 09/11/16 05:24 Direct Bilirubin 0.4 mg/dL (0-0.2) H 09/10/16 12:25 Indirect Bilirubin 0.6 mg/dL 09/10/16 12:25 AST 19 units/L (5-40) 09/11/16 05:24 ALT 16 units/L (7-56) 09/11/16 05:24 Alkaline Phosphatase 61 units/L (35-129) 09/11/16 05:24 C-Reactive Protein 33.40 mg/dL (0.00-1.30) H 09/10/16 12:25 Total Protein 7.9 g/dL (6.3-8.2) 09/11/16 05:24 Albumin 2.8 g/dL (3.9-5) L 09/11/16 05:24 Albumin/Globulin Ratio 0.5 % 09/11/16 05:24 PTH Intact 86.23 pg/mL (15-65) H 09/12/16 05:30 Urine Eosinophils None seen (None Seen) 09/14/16 18:00 Urine Creatinine 135.8 mg/dL (0.1-20.0) H 09/14/16 18:00 Urine Microalbumin 33.7 mg/dL (0.1-34.0) 09/14/16 18:00 Microalb/Creat Ratio 248.1 ug/mg 09/14/16 18:00 Protein/Creatinin Ratio 0.83 09/14/16 18:00 Urine Sodium 30 mEq/L 09/14/16 18:00 Urine Chloride 18.4 mEq/L (110-250) L 09/14/16 18:00 Urine Total Protein 113 mg/dL (5-11.8) H 09/14/16 18:00 Vancomycin Trough 19.9 ug/mL (5.0-20.0) 09/15/16 19:15 Blood Type B POSITIVE 09/10/16 12:25 Antibody Screen Negative 09/10/16 12:25
[2016-09-18] MEDS: CLARITIN PO SCH (09:46)
--- NOTE | 2016-09-18 10:13 | Progress Note ---
Assessment and Plan (1) Acute renal failure (ARF) Current Visit: Yes Status: Acute Plan to address problem: overall kidney function stable, mild creatinine fluctuation patient to be followed in our office within 1-2 weeks from discharge Renally dose medications Avoid nephrotoxic agents Obtain daily weight Strict intake and output (2) Diabetic infection of right foot Current Visit: Yes Status: Acute Plan to address problem: As per Infectious Disease and Orthopedic surgery s/p I&D 09/12 on broad spectrum antibiotics (3) Diabetes mellitus type 2, insulin dependent Current Visit: Yes Status: Acute Plan to address problem: As per primary team On insulin Subjective Date of service: 09/18/16 Principal diagnosis: Diabetic foot infection Interval history: patient feels ready to go home Objective - Vital Signs Vital signs: Vital Signs - 12hr 09/17/16 09/18/16 09/18/16 22:31 01:00 07:34 Temperature 98.4 F Pulse Rate [ 98 H Anterior Bilateral Throughout] Pulse Rate [ 94 H Left Radial] Pulse Rate [ Right Dorsalis Pedis] Respiratory 20 20 Rate Respiratory 16 Rate [Anterior Bilateral Throughout] Blood Pressure 117/57 [Left Arm] Blood Pressure [Right Arm] O2 Sat by Pulse 95 Oximetry 09/18/16 09/18/16 07:50 08:22 Temperature 99.2 F Pulse Rate [ 103 H Anterior Bilateral Throughout] Pulse Rate [ Left Radial] Pulse Rate [ 96 H Right Dorsalis Pedis] Respiratory 24 Rate Respiratory 18 Rate [Anterior Bilateral Throughout] Blood Pressure [Left Arm] Blood Pressure 113/63 [Right Arm] O2 Sat by Pulse 99 Oximetry - General Appearance General appearance: well-developed, well-nourished, obese EENT: ATNC, PERRL, mucous membranes moist Neck: no JVD, no carotid bruit Respiratory: Present: Clear to Ascultation. Absent: Rales, Ronchi Cardiology: regular, S1S2 Gastrointestinal: normoactive bowel sounds, no tenderness, no distended, obese Integumentary: no rash, warm and dry Neurologic: no focal deficit, no asterixis, alert and oriented x3 Musculoskeletal: deferred Psychiatric: mood/affect appropriate, cooperative - Lab 09/18/16 06:08 09/18/16 06:08 Most recent lab results Calcium 8.4 mg/dL (8.4-10.2) 09/18/16 06:08 Phosphorus 3.2 mg/dL (2.5-4.5) 09/18/16 06:08 Magnesium 2.1 mg/dL (1.7-2.3) 09/12/16 05:30 Urine Creatinine 135.8 mg/dL (0.1-20.0) H 09/14/16 18:00 Urine Sodium 30 mEq/L 09/14/16 18:00 Urine Total Protein 113 mg/dL (5-11.8) H 09/14/16 18:00
--- NOTE | 2016-09-18 10:19 | Progress Note ---
Assessment and Plan Current antibiotics: Vancomycin 1250 mg IV q24h 09/10 --> Zosyn 2.25 gm IV q8h 09/10 --> ASSESSMENT: Lizbeth Zimmerman is a 56 year old woman with type 2 diabetes mellitus, hypothyroidism, hypertension and COPD who was admitted to [facility] on 09/10/16 with right foot swelling, malodorous drainage from the 4th and 3rd digit, fluid filled blister on the dorsum of the foot. She underwent 4th & 5th amputation and drainage of abscess on 09/12 Problem list: 1. Right foot 4th digit gangrene with associated maceration -s/p amputation of 4th and 5th digit at the MP joint and debridement of large abscess 09/12 -Likely polymicrobial mixed aerobic and anaerobic infection with malodorous drainage. -Surgical pathology report reads that there is acute inflammation and bacteria at viable surgical margins. --surgical culture obtained on antibiotics, no growth. Gram stain did have gram negative rods, gram positive cocci in clusters and gram positive cocci in pairs 2. Type 2 diabetes mellitus -Peripheral neuropathy 3. Leukocytosis -Reactive secondary to #1. 4. Renal failure -Improving -Rule out component of chronic kidney disease PLAN: 1. Continue vancomycin, maintain trough around 15-20 2. continue zosyn for now 3. With pathology showing of infection at surgical margins will need long-term (4-6 weeks) of antibiotics. 4. picc line placement 5. will discuss with ID office and major case detective regarding the best approach in providing iv antibiotics Subjective Date of service: 09/18/16 Principal diagnosis: Diabetic foot infection Interval history: Patient is comfortable in bed, she has no new complaints. Objective - Constitutional Vitals: Vital Signs Temp Pulse Resp BP Pulse Ox 99.2 F 96 H 24 113/63 99 09/18/16 08:22 09/18/16 08:22 09/18/16 08:22 09/18/16 08:22 09/18/16 08:22 Temperature -Last 24 Hours Temperature 99.2 F Temperature 98.4 F Temperature 100.2 F General appearance: Present: no acute distress, well-nourished, obese - EENT Eyes: PERRL, EOM intact, no scleral icterus, no conjunctival injection ENT: hearing intact, clear oral mucosa, poor dentition Ears: bilateral: normal - Neck Neck: supple, normal ROM, no enlarged thyroid, no masses or JVD - Respiratory Respiratory effort: normal Respiratory: negative: CTA - Breasts Breasts: deferred - Cardiovascular Rhythm: regular Heart Sounds: Present: S1 & S2 Extremities: abnormal (right foot 4,5th digit amputation site with wound vac in place) - Gastrointestinal General gastrointestinal: Present: soft, non-tender, normal bowel sounds - Integumentary Integumentary: clear, warm, dry, no jaundice, no rash - Labs CBC & Chem 7: 09/18/16 06:08 09/18/16 06:08 Labs: Abnormal lab results 09/17/16 09/17/16 09/17/16 Range/Units 11:45 17:18 21:49 WBC (4.5-11.0) K/mm3 MCH (28-32) pg Lymph % (Auto) (13.4-35.0) % [place] # (0.0-0.8) K/mm3 Eos # (0.0-0.4) K/mm3 Seg Neutrophils % (40.0-70.0) % Seg Neutrophils # (1.8-7.7) K/mm3 BUN (7-17) mg/dL Creatinine (0.7-1.2) mg/dL Glucose (65-100) mg/dL POC Glucose 184 H 154 H 166 H (70-105) 09/18/16 09/18/16 Range/Units 06:08 06:08 WBC 18.1 H (4.5-11.0) K/mm3 MCH 27 L (28-32) pg Lymph % (Auto) 11.1 L (13.4-35.0) % [place] # 1.1 H (0.0-0.8) K/mm3 Eos # 0.5 H (0.0-0.4) K/mm3 Seg Neutrophils % 79.8 H (40.0-70.0) % Seg Neutrophils # 14.4 H (1.8-7.7) K/mm3 BUN 31 H (7-17) mg/dL Creatinine 1.8 H (0.7-1.2) mg/dL Glucose 112 H (65-100) mg/dL POC Glucose (70-105)
[2016-09-18] MEDS ORDERED: NACL 0.9% 1000 ML 1,000 ML IV SCH (11:00)
--- NOTE | 2016-09-18 14:32 | XRay Report ---
PORTABLE CHEST: An AP portable view of the chest demonstrates a normal cardiac contour considering the limits of this technique. The lungs are clear with no evidence of infiltrate, fluid or failure. IMPRESSION: Normal portable chest.
--- NOTE | 2016-09-18 15:46 | Progress Note ---
Assessment and Plan - Patient Problems (1) Diabetic infection of right foot Current Visit: Yes Status: Chronic Plan to address problem: PIC line being placed, continue with wound care, antibiotics. Followup in office. Subjective Date of service: 09/18/16 Principal diagnosis: Diabetic foot infection Interval history: Status post toe amputation, debridement of foot. Wound evaluated by wound care team today. Objective Vital signs: Vital Signs - 12hr 09/18/16 09/18/16 09/18/16 07:34 07:50 08:22 Temperature 99.2 F Pulse Rate [ 98 H 103 H Anterior Bilateral Throughout] Pulse Rate [ 96 H Right Dorsalis Pedis] Respiratory 24 Rate Respiratory 16 18 Rate [Anterior Bilateral Throughout] Blood Pressure 113/63 [Right Arm] O2 Sat by Pulse 99 Oximetry - Labs CBC & BMP: 09/18/16 06:08 09/18/16 06:08 Labs: Abnormal lab results 09/17/16 09/17/16 09/17/16 Range/Units 11:45 17:18 21:49 WBC (4.5-11.0) K/mm3 MCH (28-32) pg Lymph % (Auto) (13.4-35.0) % [place] # (0.0-0.8) K/mm3 Eos # (0.0-0.4) K/mm3 Seg Neutrophils % (40.0-70.0) % Seg Neutrophils # (1.8-7.7) K/mm3 BUN (7-17) mg/dL Creatinine (0.7-1.2) mg/dL Glucose (65-100) mg/dL POC Glucose 184 H 154 H 166 H (70-105) 09/18/16 09/18/16 09/18/16 Range/Units 06:08 06:08 11:39 WBC 18.1 H (4.5-11.0) K/mm3 MCH 27 L (28-32) pg Lymph % (Auto) 11.1 L (13.4-35.0) % [place] # 1.1 H (0.0-0.8) K/mm3 Eos # 0.5 H (0.0-0.4) K/mm3 Seg Neutrophils % 79.8 H (40.0-70.0) % Seg Neutrophils # 14.4 H (1.8-7.7) K/mm3 BUN 31 H (7-17) mg/dL Creatinine 1.8 H (0.7-1.2) mg/dL Glucose 112 H (65-100) mg/dL POC Glucose 184 H (70-105)
[2016-09-18] MEDS: LEVEMIR SUB-Q SCH (22:12)
[2016-09-19] MEDS: VANCOMYCIN VIAL 1,750 MG in NACL 0.9% 500 ML 500 ML IV SCH (00:10)
[2016-09-19] MEDS: NORCO 5/325 PO PRN (06:09)
[2016-09-19] MEDS: SYNTHROID PO SCH (06:10)
[2016-09-19] MEDS: ZOSYN/NS 4.5GM/100ML 100 ML IV SCH ×3 (06:12→22:26)
[2016-09-19 07:43] LABS: Basophils % (Auto) 0.6 % (0.0-1.8); Eosinophils % (Auto) 2.5 % (0.0-4.3); Hematocrit 30.3 % (30.3-42.9); Hemoglobin 9.6 gm/dl (10.1-14.3); Mean Corpuscular HGB Conc 32 % (30-34); Mean Corpuscular Hemoglobin 27 pg (28-32); Mean Corpuscular Volume 85 fl (79-97); Platelet Count 274 K/mm3 (140-440); Red Blood Count 3.56 M/mm3 (3.65-5.03); Red Cell Distribution Width 15.1 % (13.2-15.2)
[2016-09-19 07:56] LABS: BUN/Creatinine Ratio 16.19; Calcium 8.2 mg/dL (8.4-10.2); Chloride 102.7 mmol/L (98-107); Phosphorous 3.2 mg/dL (2.5-4.5); Potassium 4.2 mmol/L (3.6-5.0)
[2016-09-19] MEDS: PULMICORT IH SCH ×2 (08:02→19:59)
[2016-09-19] MEDS: BROVANA NEBU IH SCH ×2 (08:04→19:59)
[2016-09-19] MEDS: MORPHINE IV PRN ×2 (08:28→20:48)
--- NOTE | 2016-09-19 08:41 | Progress Note ---
Assessment and Plan Assessment and plan: 1. Sepsis present on admission secondary to right foot cellulitis versus abscess with gangrene to the toe- s/post debridement and fourth and fifth digit MP joints amputation. ID input also noted. Will continue current IV antibiotics with vancomycin and Zosyn. Pharmacy to adjust vancomycin level. wbc likely reactive continue wound care. cultures with no significant growth. awaiting pathology report. wound vac in place 2. Diabetes type 2-with insulin dependence-increase day time insulin regime to 25units, cont to monitor glucose 3. Hypothyroidism-cont thyroxine replacement 4. Morbid obesity- life style, modification advised- diet; weight loss and exercise 5. Acute kidney injury on chronic kidney disease stage III-secondary to visible due to nephropathy. I'll increase in creatinine today.. Continue gentle hydration. Nephrology consult appreciated. Patient did use some NSAIDs. Continue to avoid all nephrotoxic medications. Also continue to hold ARB's diuretic. Daily weights and strict ins and outs 6. Diabetic foot infection-present on admission. As noted #1 above. 7. DVT prophylaxis- heparin- Disposition-awaiting the wound VAC approval. Will need prolonged antibiotics. PICC line placed. Awaiting ID to give final recommendation of for antibiotics, also Case management working on discharge Home health and wound vac. History Interval history: F/U diabetic foot infection Patient seen and examined this morning in no acute distress, Dressing and wound VAC in place. Awaiting wound care for dressing change, reported some pain yesterday at the site.. Patient reports ambulating unassisted. Denies any chest pain, nausea, vomiting, diarrhea No fever noted blood pressure controlled No adverse events reported to me by nursing staff Hospitalist Physical - Physical exam Narrative exam: VITAL SIGNS: Reviewed. GENERAL: The patient appeared well nourished and normally developed, obese, sitting up. Vital signs as documented. HEAD: No signs of head trauma. EYES: Pupils are equal. Extraocular motions intact. EARS: Hearing grossly intact. MOUTH: Oropharynx is normal. NECK: No adenopathy, no JVD. CHEST: Chest with clear breath sounds bilaterally. No wheezes, rales, or rhonchi. CARDIAC: Regular rate and rhythm. S1 and S2, without murmurs, gallops, or rubs. VASCULAR: 2+ pitting edema with decreased peripheral pulses worse on the right lower extremity ABDOMEN: Soft, without detectable tenderness. No sign of distention. No rebound or guarding, and no masses palpated. Bowel Sounds normal. MUSCULOSKELETAL: Good range of motion of all major joints. Extremities edema, black Jakob bandage to the right foot status post toe amputation NEUROLOGIC EXAM: Alert and oriented x 3. No focal sensory or strength deficits. Speech normal. Follows commands. PSYCHIATRIC: Mood normal. SKIN: wound vac in place. - Constitutional Vitals: Temp Pulse Resp BP Pulse Ox 98.9 F 97 H 16 127/64 98 09/19/16 07:09 09/19/16 08:05 09/19/16 08:05 09/19/16 07:09 09/19/16 07:09 General appearance: Present: no acute distress, well-nourished, obese Results - Labs CBC & Chem 7: 09/19/16 07:20 09/19/16 07:20 Labs: Laboratory Last Values WBC 17.0 K/mm3 (4.5-11.0) H 09/19/16 07:20 RBC 3.56 M/mm3 (3.65-5.03) L 09/19/16 07:20 Hgb 9.6 gm/dl (10.1-14.3) L 09/19/16 07:20 Hct 30.3 % (30.3-42.9) 09/19/16 07:20 MCV 85 fl (79-97) 09/19/16 07:20 MCH 27 pg (28-32) L 09/19/16 07:20 MCHC 32 % (30-34) 09/19/16 07:20 RDW 15.1 % (13.2-15.2) 09/19/16 07:20 Plt Count 274 K/mm3 (140-440) 09/19/16 07:20 Lymph % (Auto) 14.7 % (13.4-35.0) 09/19/16 07:20 [place] % (Auto) 5.9 % (0.0-7.3) 09/19/16 07:20 Eos % (Auto) 2.5 % (0.0-4.3) 09/19/16 07:20 Baso % (Auto) 0.6 % (0.0-1.8) 09/19/16 07:20 Lymph # 2.5 K/mm3 (1.2-5.4) 09/19/16 07:20 [place] # 1.0 K/mm3 (0.0-0.8) H 09/19/16 07:20 Eos # 0.4 K/mm3 (0.0-0.4) 09/19/16 07:20 Baso # 0.1 K/mm3 (0.0-0.1) 09/19/16 07:20 Add Manual Diff Complete 09/11/16 05:24 Total Counted 100 09/11/16 05:24 Seg Neutrophils % 76.3 % (40.0-70.0) H 09/19/16 07:20 Seg Neuts % (Manual) 80.0 % (40.0-70.0) H 09/11/16 05:24 Band Neutrophils % 0 % 09/11/16 05:24 Lymphocytes % (Manual) 11.0 % (13.4-35.0) L 09/11/16 05:24 Reactive Lymphs % (Man) 0 % 09/11/16 05:24 Monocytes % (Manual) 7.0 % (0.0-7.3) 09/11/16 05:24 Eosinophils % (Manual) 2.0 % (0.0-4.3) 09/11/16 05:24 Basophils % (Manual) 0 % (0.0-1.8) 09/11/16 05:24 Metamyelocytes % 0 % 09/11/16 05:24 Myelocytes % 0 % 09/11/16 05:24 Promyelocytes % 0 % 09/11/16 05:24 Blast Cells % 0 % 09/11/16 05:24 Nucleated RBC % Not Reportable 09/11/16 05:24 Seg Neutrophils # 13.0 K/mm3 (1.8-7.7) H 09/19/16 07:20 Seg Neutrophils # Man 16.2 K/mm3 (1.8-7.7) H 09/11/16 05:24 Band Neutrophils # 0.0 K/mm3 09/11/16 05:24 Lymphocytes # (Manual) 2.2 K/mm3 (1.2-5.4) 09/11/16 05:24 Abs React Lymphs (Man) 0.0 K/mm3 09/11/16 05:24 Monocytes # (Manual) 1.4 K/mm3 (0.0-0.8) H 09/11/16 05:24 Eosinophils # (Manual) 0.4 K/mm3 (0.0-0.4) 09/11/16 05:24 Basophils # (Manual) 0.0 K/mm3 (0.0-0.1) 09/11/16 05:24 Metamyelocytes # 0.0 K/mm3 09/11/16 05:24 Myelocytes # 0.0 K/mm3 09/11/16 05:24 Promyelocytes # 0.0 K/mm3 09/11/16 05:24 Blast Cells # 0.0 K/mm3 09/11/16 05:24 WBC Morphology Not Reportable 09/11/16 05:24 Hypersegmented Neuts Not Reportable 09/11/16 05:24 Hyposegmented Neuts Not Reportable 09/11/16 05:24 Hypogranular Neuts Not Reportable 09/11/16 05:24 Smudge Cells Not Reportable 09/11/16 05:24 Toxic Granulation Not Reportable 09/11/16 05:24 Toxic Vacuolation Not Reportable 09/11/16 05:24 Dohle Bodies Not Reportable 09/11/16 05:24 Pelger-Huet Anomaly Not Reportable 09/11/16 05:24 Nba Rods Not Reportable 09/11/16 05:24 Platelet Estimate Appears normal 09/11/16 05:24 Clumped Platelets Not Reportable 09/11/16 05:24 Plt Clumps, EDTA Not Reportable 09/11/16 05:24 Large Platelets Not Reportable 09/11/16 05:24 Giant Platelets Not Reportable 09/11/16 05:24 Platelet Satelliting Not Reportable 09/11/16 05:24 Plt Morphology Comment Not Reportable 09/11/16 05:24 RBC Morphology Not Reportable 09/11/16 05:24 Dimorphic RBCs Not Reportable 09/11/16 05:24 Polychromasia Few 09/11/16 05:24 Hypochromasia Few 09/11/16 05:24 Poikilocytosis Not Reportable 09/11/16 05:24 Anisocytosis 1+ 09/11/16 05:24 Microcytosis Not Reportable 09/11/16 05:24 Macrocytosis Not Reportable 09/11/16 05:24 Spherocytes Not Reportable 09/11/16 05:24 Pappenheimer Bodies Not Reportable 09/11/16 05:24 Sickle Cells Not Reportable 09/11/16 05:24 Target Cells Rare 09/11/16 05:24 Tear Drop Cells Not Reportable 09/11/16 05:24 Ovalocytes Not Reportable 09/11/16 05:24 Helmet Cells Not Reportable 09/11/16 05:24 [place]li[place] Bodies Not Reportable 09/11/16 05:24 [place] Rings Not Reportable 09/11/16 05:24 [place] Cells Not Reportable 09/11/16 05:24 Bite Cells Not Reportable 09/11/16 05:24 Crenated Cell Not Reportable 09/11/16 05:24 Elliptocytes Not Reportable 09/11/16 05:24 Acanthocytes (Spur) Not Reportable 09/11/16 05:24 Rouleaux Not Reportable 09/11/16 05:24 Hemoglobin C Crystals Not Reportable 09/11/16 05:24 Schistocytes Not Reportable 09/11/16 05:24 Malaria parasites Not Reportable 09/11/16 05:24 ESR 77 mm/Hr (0-20) 09/10/16 12:25 Luis Bodies Not Reportable 09/11/16 05:24 Hem Pathologist Commnt No 09/11/16 05:24 PT 15.5 Sec. (12.2-14.9) H 09/10/16 12:25 INR 1.24 (0.87-1.13) H 09/10/16 12:25 APTT 29.5 Sec. (24.2-36.6) 09/10/16 12:25 Sodium 140 mmol/L (137-145) 09/19/16 07:20 Potassium 4.2 mmol/L (3.6-5.0) 09/19/16 07:20 Chloride 102.7 mmol/L (98-107) 09/19/16 07:20 Carbon Dioxide 23 mmol/L (22-30) 09/19/16 07:20 Anion Gap 19 mmol/L 09/19/16 07:20 BUN 34 mg/dL (7-17) H 09/19/16 07:20 Creatinine 2.1 mg/dL (0.7-1.2) H 09/19/16 07:20 Estimated GFR 30 ml/min 09/19/16 07:20 BUN/Creatinine Ratio 16.19 % 09/19/16 07:20 Glucose 100 mg/dL (65-100) 09/19/16 07:20 POC Glucose 107 (70-105) H 09/19/16 06:01 Lactic Acid 1.5 mmol/L (0.7-2.0) 09/10/16 15:10 Calcium 8.2 mg/dL (8.4-10.2) L 09/19/16 07:20 Phosphorus 3.2 mg/dL (2.5-4.5) 09/19/16 07:20 Magnesium 2.1 mg/dL (1.7-2.3) 09/12/16 05:30 Total Bilirubin 0.7 mg/dL (0.1-1.2) 09/11/16 05:24 Direct Bilirubin 0.4 mg/dL (0-0.2) H 09/10/16 12:25 Indirect Bilirubin 0.6 mg/dL 09/10/16 12:25 AST 19 units/L (5-40) 09/11/16 05:24 ALT 16 units/L (7-56) 09/11/16 05:24 Alkaline Phosphatase 61 units/L (35-129) 09/11/16 05:24 C-Reactive Protein 33.40 mg/dL (0.00-1.30) H 09/10/16 12:25 Total Protein 7.9 g/dL (6.3-8.2) 09/11/16 05:24 Albumin 2.8 g/dL (3.9-5) L 09/11/16 05:24 Albumin/Globulin Ratio 0.5 % 09/11/16 05:24 PTH Intact 86.23 pg/mL (15-65) H 09/12/16 05:30 Urine Eosinophils None seen (None Seen) 09/14/16 18:00 Urine Creatinine 135.8 mg/dL (0.1-20.0) H 09/14/16 18:00 Urine Microalbumin 33.7 mg/dL (0.1-34.0) 09/14/16 18:00 Microalb/Creat Ratio 248.1 ug/mg 09/14/16 18:00 Protein/Creatinin Ratio 0.83 09/14/16 18:00 Urine Sodium 30 mEq/L 09/14/16 18:00 Urine Chloride 18.4 mEq/L (110-250) L 09/14/16 18:00 Urine Total Protein 113 mg/dL (5-11.8) H 09/14/16 18:00 Vancomycin Trough 24.9 ug/mL (5.0-20.0) H 09/18/16 23:58 Blood Type B POSITIVE 09/10/16 12:25 Antibody Screen Negative 09/10/16 12:25
[2016-09-19] MEDS: CLARITIN PO SCH (10:13)
--- NOTE | 2016-09-19 10:54 | Progress Note ---
Assessment and Plan - Patient Problems (1) Acute renal failure (ARF) Current Visit: Yes Status: Acute Plan to address problem: Renal function reviewed. Current serum creatinine 2.1 today Renally dose medications Avoid nephrotoxic agents Obtain daily weights Strict intake and output Patient to be followed in our office within 1-2 weeks from discharge (2) Diabetic infection of right foot Current Visit: Yes Status: Chronic Plan to address problem: As per Infectious Disease and Orthopedic surgery S/P I&D 09/12 On Vancomycin and Zosyn (3) Diabetes mellitus type 2, insulin dependent Current Visit: Yes Status: Chronic Plan to address problem: On insulin Subjective Date of service: 09/19/16 Principal diagnosis: Diabetic foot infection Interval history: Patient seen sitting up in bed. Awake and alert. Objective - Vital Signs Vital signs: Vital Signs - 12hr 09/19/16 09/19/16 09/19/16 00:00 04:00 06:09 Temperature 98.7 F 97.9 F Pulse Rate [ Anterior Bilateral Throughout] Pulse Rate [ 102 H 80 Right Dorsalis Pedis] Respiratory 20 22 22 Rate Respiratory Rate [Anterior Bilateral Throughout] Blood Pressure 130/60 100/54 [Right Arm] O2 Sat by Pulse 95 Oximetry 09/19/16 09/19/16 07:09 08:05 Temperature 98.9 F Pulse Rate [ 97 H Anterior Bilateral Throughout] Pulse Rate [ 92 H Right Dorsalis Pedis] Respiratory 16 Rate Respiratory 16 Rate [Anterior Bilateral Throughout] Blood Pressure 127/64 [Right Arm] O2 Sat by Pulse 98 Oximetry - General Appearance General appearance: well-developed, appears stated age EENT: ATNC, PERRL, hearing intact, vision intact Neck: no JVD, supple Respiratory: Present: Clear to Ascultation Cardiology: regular, S1S2 Gastrointestinal: normoactive bowel sounds Integumentary: warm and dry Neurologic: alert and oriented x3 Musculoskeletal: no deformities, no erythema, no cyanosis, no clubbing Psychiatric: mood/affect appropriate, cooperative - Lab 09/19/16 07:20 09/19/16 07:20 Most recent lab results Calcium 8.2 mg/dL (8.4-10.2) L 09/19/16 07:20 Phosphorus 3.2 mg/dL (2.5-4.5) 09/19/16 07:20 Magnesium 2.1 mg/dL (1.7-2.3) 09/12/16 05:30 Urine Creatinine 135.8 mg/dL (0.1-20.0) H 09/14/16 18:00 Urine Sodium 30 mEq/L 09/14/16 18:00 Urine Total Protein 113 mg/dL (5-11.8) H 09/14/16 18:00
--- NOTE | 2016-09-19 11:00 | Progress Note ---
Assessment and Plan Current antibiotics: Vancomycin 1250 mg IV q24h 09/10 --> Zosyn 2.25 gm IV q8h 09/10 --> ASSESSMENT: Lizbeth Zimmerman is a 56 year old woman with type 2 diabetes mellitus, hypothyroidism, hypertension and COPD who was admitted to [facility] on 09/10/16 with right foot swelling, malodorous drainage from the 4th and 3rd digit, fluid filled blister on the dorsum of the foot. She underwent 4th & 5th amputation and drainage of abscess on 09/12 Problem list: 1. Right foot 4th digit gangrene with associated maceration -s/p amputation of 4th and 5th digit at the MP joint and debridement of large abscess 09/12 -Likely polymicrobial mixed aerobic and anaerobic infection with malodorous drainage. -Pathology showed evidence of active infection at surgical margins 2. Type 2 diabetes mellitus -Peripheral neuropathy 3. Leukocytosis -Reactive secondary to #1. 4. Renal failure -Improving -Rule out component of chronic kidney disease 5. Hypothyroidism -On replacement therapy 6. History of COPD PLAN: 1. Discussed with Dr. Benavides. With cultures not growing any pathogens would recommend sending her out on Levaquin 750 mg po q day and Flagyl 500 mg po TID as opposed IV therapy 2. Follow-up with us in the office in 7-10 days. If she does not continue to clinically improve or should she worsen we'll then entertain switching her to IV therapy 3. With pathology showing of infection at surgical margins will need long-term (4-6 weeks) of antibiotics. 4. Glycemic control as per primary team Henrique Raymundo MD [facility] Office: [phone] Subjective Date of service: 09/19/16 Principal diagnosis: Diabetic foot infection Interval history: No complaints. No significant pain. ROS: No subjective fever or chills. No nausea, vomiting or diarrhea. No shortness of breath, cough or pleuritic chest pain Objective - Exam Narrative Exam: GENERAL: Well-developed, obese female who is alert and in no acute distress. HEAD: Normocephalic. No lesions seen. EYES: Pupils are equal reactive to light and accommodation. There is no scleral icterus. Optic fundi are not examined. EARS: Tympanic membranes are normal. THROAT: Oropharynx is normal with no evidence of oral candidiasis or pharyngitis. NECK: Supple. No enlargement of the thyroid gland. No significant cervical lymphadenopathy. No jugular venous distention at 30. LUNGS: Clear with no adventitious sounds. HEART: Regular rate. S1 and S2 are normal. There are no murmurs, gallops, clicks or rubs heard. ABDOMEN: Soft and nontender. Liver and spleen are not palpably enlarged or tender. No palpable masses. Bowel sounds are normoactive. EXTREMITIES: Right foot with wound VAC in place and surgical dressings. Moderate edema to mid pretibial area. No signs of ascending infection. : Not examined NEUROLOGIC: Decreased sensation to pinprick in a stocking distribution. - Constitutional Vitals: Vital Signs Temp Pulse Resp BP Pulse Ox 98.9 F 97 H 16 127/64 98 09/19/16 07:09 09/19/16 08:05 09/19/16 08:05 09/19/16 07:09 09/19/16 07:09 Temperature -Last 24 Hours Temperature 98.9 F Temperature 97.9 F Temperature 98.7 F Temperature 98.9 F - Labs CBC & Chem 7: 09/19/16 07:20 09/19/16 07:20 Labs: Abnormal lab results Microbiology 09/12/16 Unknown Foot - Right Surgical Culture - pending Gram stain: Many PMNs: Few gram-positive rods suggestive of diphtheroids, moderate gram-positive cocci in pairs 09/12/16 Unknown Foot - Right Anaerobic Culture - Pending 09/11/16 Unknown Foot - Right superficial wound culture - normal skin ade 09/10/16 13:04 Peripheral/Venous Blood Culture - Preliminary NO GROWTH AFTER 4 DAYS 09/10/16 12:25 Peripheral/Venous Blood Culture - Preliminary NO GROWTH AFTER 4 DAYS 09/12 Pathology: Acute inflammation and bacteria present at surgical margins of both amputated toes
[2016-09-19] MEDS ORDERED: VANCOMYCIN VIAL 1,750 MG in NACL 0.9% 500 ML 500 ML IV SCH (12:00)
[2016-09-19] MEDS ORDERED: FLUARIX QUAD 2016-2017(36 MOS+) IM ONE (13:00)
[2016-09-19] MEDS: LEVEMIR SUB-Q SCH (22:00)
[2016-09-20] MEDS: NORCO 5/325 PO PRN ×2 (04:58→23:08)
[2016-09-20] MEDS: ZOSYN/NS 4.5GM/100ML 100 ML IV SCH (05:26)
[2016-09-20] MEDS: SYNTHROID PO SCH (05:26)
[2016-09-20] MEDS: MORPHINE IV PRN (05:38)
[2016-09-20 06:07] LABS: Basophils % (Auto) 0.7 % (0.0-1.8); Hematocrit 30.3 % (30.3-42.9); Hemoglobin 9.6 gm/dl (10.1-14.3); Mean Corpuscular HGB Conc 32 % (30-34); Mean Corpuscular Hemoglobin 27 pg (28-32); Mean Corpuscular Volume 85 fl (79-97); Platelet Count 263 K/mm3 (140-440); Red Blood Count 3.56 M/mm3 (3.65-5.03); Red Cell Distribution Width 14.9 % (13.2-15.2); White Blood Count 14.6 K/mm3 (4.5-11.0)
[2016-09-20 06:18] LABS: BUN/Creatinine Ratio 16.31; Calcium 8.1 mg/dL (8.4-10.2); Chloride 101.5 mmol/L (98-107); Phosphorous 3.4 mg/dL (2.5-4.5)
[2016-09-20] MEDS: CLARITIN PO SCH (09:37)
[2016-09-20] MEDS ORDERED: VANCOMYCIN VIAL 1,750 MG in NACL 0.9% 500 ML 500 ML IV SCH (10:00)
--- NOTE | 2016-09-20 10:21 | Progress Note ---
Assessment and Plan Current antibiotics: Vancomycin 1250 mg IV q24h 09/10 --> Zosyn 2.25 gm IV q8h 09/10 --> ASSESSMENT: Lizbeth Zimmerman is a 56 year old woman with type 2 diabetes mellitus, hypothyroidism, hypertension and COPD who was admitted to [facility] on 09/10/16 with right foot swelling, malodorous drainage from the 4th and 3rd digit, fluid filled blister on the dorsum of the foot. She underwent 4th & 5th amputation and drainage of abscess on 09/12 Problem list: 1. Right foot 4th digit gangrene with associated maceration -s/p amputation of 4th and 5th digit at the MP joint and debridement of large abscess 09/12 -Likely polymicrobial mixed aerobic and anaerobic infection with malodorous drainage. -Pathology showed evidence of active infection at surgical margins 2. Skin rash -Suspect drug eruption specially from vancomycin and/or Zosyn 2. Type 2 diabetes mellitus -Peripheral neuropathy 3. Leukocytosis -Reactive secondary to #1. 4. Renal failure -Improving -Rule out component of chronic kidney disease 5. Hypothyroidism -On replacement therapy 6. History of COPD PLAN: 1. Will go ahead and switch her to Levaquin 750 mg po q day and Flagyl 500 mg po TID as opposed IV therapy 2. Stop vancomycin and Zosyn 3. If discharged to follow-up with us in the office in 7-10 days. If she does not continue to clinically improve or should she worsen will then entertain switching her to IV therapy 4. With pathology showing of infection at surgical margins will need long-term (4-6 weeks) of antibiotics. 5. Glycemic control as per primary team Henrique Raymundo MD [facility] Office: [phone] Subjective Date of service: 09/20/16 Principal diagnosis: Diabetic foot infection Interval history: No complaints except developed a rash overnight that is not particularly pruritic. It is most prominent on her face and chest but also some on her thighs. She has not had a similar rash before. She did not use any new soap or lotion. No significant pain. ROS: No subjective fever or chills. No nausea, vomiting or diarrhea. No shortness of breath, cough or pleuritic chest pain Objective - Exam Narrative Exam: GENERAL: Well-developed, obese female who is alert and in no acute distress. HEAD: Normocephalic. No lesions seen. EYES: Pupils are equal reactive to light and accommodation. There is no scleral icterus. Optic fundi are not examined. EARS: Tympanic membranes are normal. THROAT: Oropharynx is normal with no evidence of oral candidiasis or pharyngitis. NECK: Supple. No enlargement of the thyroid gland. No significant cervical lymphadenopathy. No jugular venous distention at 30. LUNGS: Clear with no adventitious sounds. HEART: Regular rate. S1 and S2 are normal. There are no murmurs, gallops, clicks or rubs heard. ABDOMEN: Soft and nontender. Liver and spleen are not palpably enlarged or tender. No palpable masses. Bowel sounds are normoactive. EXTREMITIES: Right foot with wound VAC in place and surgical dressings. Moderate edema to mid pretibial area. No signs of ascending infection. SKIN: There is a dry, scaly, maculopapular rash involving her lower face, anterior chest and to a much lesser extent her thighs. There is no mucous membrane involvement. : Not examined NEUROLOGIC: Decreased sensation to pinprick in a stocking distribution. - Constitutional Vitals: Vital Signs Temp Pulse Resp BP Pulse Ox 98 F 92 H 18 126/58 97 09/20/16 06:50 09/20/16 06:50 09/20/16 06:50 09/20/16 06:50 09/20/16 06:50 Temperature -Last 24 Hours Temperature 98 F Temperature 98.1 F Temperature 99.8 F - Labs CBC & Chem 7: 09/20/16 05:00 09/20/16 05:00 Labs: Abnormal lab results Microbiology 09/12/16 Unknown Foot - Right Surgical Culture - pending Gram stain: Many PMNs: Few gram-positive rods suggestive of diphtheroids, moderate gram-positive cocci in pairs 09/12/16 Unknown Foot - Right Anaerobic Culture - Pending 09/11/16 Unknown Foot - Right superficial wound culture - normal skin ade 09/10/16 13:04 Peripheral/Venous Blood Culture - Preliminary NO GROWTH AFTER 4 DAYS 09/10/16 12:25 Peripheral/Venous Blood Culture - Preliminary NO GROWTH AFTER 4 DAYS 09/12 Pathology: Acute inflammation and bacteria present at surgical margins of both amputated toes
[2016-09-20] MEDS: PULMICORT IH SCH ×2 (10:32→20:04)
[2016-09-20] MEDS: BROVANA NEBU IH SCH ×2 (10:32→20:03)
[2016-09-20] MEDS: BENADRYL IV PRN (12:07)
[2016-09-20] MEDS: LEVAQUIN PO SCH (12:08)
--- NOTE | 2016-09-20 13:18 | Progress Note ---
Assessment and Plan Assessment and plan: 1. Sepsis present on admission secondary to right foot cellulitis versus abscess with gangrene to the toe- s/post debridement and fourth and fifth digit MP joints amputation. ID input also noted. Discussed with ID antibiotics switched to by mouth to rule out drug induced rash. We'll give a dose of Benadryl. Pharmacy to adjust vancomycin level. wbc likely reactive continue wound care. cultures with no significant growth. awaiting pathology report. wound vac in place 2. Diabetes type 2-with insulin continue insulin regime 25units, cont to monitor glucose 3. Hypothyroidism-cont thyroxine replacement 4. Morbid obesity- life style, modification advised- diet; weight loss and exercise 5. Acute kidney injury on chronic kidney disease stage III-secondary to visible due to nephropathy. I'll increase in creatinine today.. Continue gentle hydration. Nephrology consult appreciated. Patient did use some NSAIDs. Continue to avoid all nephrotoxic medications. Also continue to hold ARB's diuretic. Daily weights and strict ins and outs 6. Diabetic foot infection-present on admission. As noted #1 above. 7. Fluid overload-patient normally on Lasix at home this has been held due to renal function will give dose 1 today. 8. Pleuritic rash-question drug induced. We'll give a dose of Benadryl. We' ll also put patient on H2 angel. Discussed with ID. 9. DVT prophylaxis- heparin- Disposition-awaiting the wound VAC approval. Will need prolonged antibiotics. PICC line discontinued past antibiotics and switched to oral. This has been explained to the patient. Case management working on discharge Home health and wound vac. History Interval history: F/U diabetic foot infection Patient seen and examined this morning in no acute distress, reports of a rash developed overnight pleuritic in nature. prominent on her face and chest but also some on her thighs. She has not had a similar rash before. She also reports that she feels she is more swollen. Denies any chest pain, nausea, vomiting, diarrhea No fever noted blood pressure controlled No adverse events reported to me by nursing staff Hospitalist Physical - Physical exam Narrative exam: VITAL SIGNS: Reviewed. GENERAL: The patient appeared well nourished and normally developed. Vital signs as documented. HEAD: No signs of head trauma. EYES: Pupils are equal. Extraocular motions intact. EARS: Hearing grossly intact. MOUTH: Oropharynx is normal. NECK: No adenopathy, no JVD. CHEST: Chest with clear breath sounds bilaterally. No wheezes, rales, or rhonchi. CARDIAC: Regular rate and rhythm. S1 and S2, without murmurs, gallops, or rubs. VASCULAR: 2+ pitting edema with decreased peripheral pulses worse on the right lower extremity ABDOMEN: Soft, without detectable tenderness. No sign of distention. No rebound or guarding, and no masses palpated. Bowel Sounds normal. MUSCULOSKELETAL: Good range of motion of all major joints. Extremities edema, black Jakob bandage to the right foot status post toe amputation NEUROLOGIC EXAM: Alert and oriented x 3. No focal sensory or strength deficits. Speech normal. Follows commands. PSYCHIATRIC: Mood normal. SKIN: wound vac in place. - Constitutional Vitals: Temp Pulse Resp BP Pulse Ox 98 F 92 H 18 126/58 97 09/20/16 06:50 09/20/16 06:50 09/20/16 06:50 09/20/16 06:50 09/20/16 06:50 General appearance: Present: no acute distress, well-nourished, obese Results - Labs CBC & Chem 7: 09/20/16 05:00 09/20/16 05:00 Labs: Laboratory Last Values WBC 14.6 K/mm3 (4.5-11.0) H 09/20/16 05:00 RBC 3.56 M/mm3 (3.65-5.03) L 09/20/16 05:00 Hgb 9.6 gm/dl (10.1-14.3) L 09/20/16 05:00 Hct 30.3 % (30.3-42.9) 09/20/16 05:00 MCV 85 fl (79-97) 09/20/16 05:00 MCH 27 pg (28-32) L 09/20/16 05:00 MCHC 32 % (30-34) 09/20/16 05:00 RDW 14.9 % (13.2-15.2) 09/20/16 05:00 Plt Count 263 K/mm3 (140-440) 09/20/16 05:00 Lymph % (Auto) 12.8 % (13.4-35.0) L 09/20/16 05:00 Maury % (Auto) 6.8 % (0.0-7.3) 09/20/16 05:00 Eos % (Auto) 3.0 % (0.0-4.3) 09/20/16 05:00 Baso % (Auto) 0.7 % (0.0-1.8) 09/20/16 05:00 Lymph # 1.9 K/mm3 (1.2-5.4) 09/20/16 05:00 Maury # 1.0 K/mm3 (0.0-0.8) H 09/20/16 05:00 Eos # 0.4 K/mm3 (0.0-0.4) 09/20/16 05:00 Baso # 0.1 K/mm3 (0.0-0.1) 09/20/16 05:00 Add Manual Diff Complete 09/11/16 05:24 Total Counted 100 09/11/16 05:24 Seg Neutrophils % 76.7 % (40.0-70.0) H 09/20/16 05:00 Seg Neuts % (Manual) 80.0 % (40.0-70.0) H 09/11/16 05:24 Band Neutrophils % 0 % 09/11/16 05:24 Lymphocytes % (Manual) 11.0 % (13.4-35.0) L 09/11/16 05:24 Reactive Lymphs % (Man) 0 % 09/11/16 05:24 Monocytes % (Manual) 7.0 % (0.0-7.3) 09/11/16 05:24 Eosinophils % (Manual) 2.0 % (0.0-4.3) 09/11/16 05:24 Basophils % (Manual) 0 % (0.0-1.8) 09/11/16 05:24 Metamyelocytes % 0 % 09/11/16 05:24 Myelocytes % 0 % 09/11/16 05:24 Promyelocytes % 0 % 09/11/16 05:24 Blast Cells % 0 % 09/11/16 05:24 Nucleated RBC % Not Reportable 09/11/16 05:24 Seg Neutrophils # 11.2 K/mm3 (1.8-7.7) H 09/20/16 05:00 Seg Neutrophils # Man 16.2 K/mm3 (1.8-7.7) H 09/11/16 05:24 Band Neutrophils # 0.0 K/mm3 09/11/16 05:24 Lymphocytes # (Manual) 2.2 K/mm3 (1.2-5.4) 09/11/16 05:24 Abs React Lymphs (Man) 0.0 K/mm3 09/11/16 05:24 Monocytes # (Manual) 1.4 K/mm3 (0.0-0.8) H 09/11/16 05:24 Eosinophils # (Manual) 0.4 K/mm3 (0.0-0.4) 09/11/16 05:24 Basophils # (Manual) 0.0 K/mm3 (0.0-0.1) 09/11/16 05:24 Metamyelocytes # 0.0 K/mm3 09/11/16 05:24 Myelocytes # 0.0 K/mm3 09/11/16 05:24 Promyelocytes # 0.0 K/mm3 09/11/16 05:24 Blast Cells # 0.0 K/mm3 09/11/16 05:24 WBC Morphology Not Reportable 09/11/16 05:24 Hypersegmented Neuts Not Reportable 09/11/16 05:24 Hyposegmented Neuts Not Reportable 09/11/16 05:24 Hypogranular Neuts Not Reportable 09/11/16 05:24 Smudge Cells Not Reportable 09/11/16 05:24 Toxic Granulation Not Reportable 09/11/16 05:24 Toxic Vacuolation Not Reportable 09/11/16 05:24 Dohle Bodies Not Reportable 09/11/16 05:24 Pelger-Huet Anomaly Not Reportable 09/11/16 05:24 Nba Rods Not Reportable 09/11/16 05:24 Platelet Estimate Appears normal 09/11/16 05:24 Clumped Platelets Not Reportable 09/11/16 05:24 Plt Clumps, EDTA Not Reportable 09/11/16 05:24 Large Platelets Not Reportable 09/11/16 05:24 Giant Platelets Not Reportable 09/11/16 05:24 Platelet Satelliting Not Reportable 09/11/16 05:24 Plt Morphology Comment Not Reportable 09/11/16 05:24 RBC Morphology Not Reportable 09/11/16 05:24 Dimorphic RBCs Not Reportable 09/11/16 05:24 Polychromasia Few 09/11/16 05:24 Hypochromasia Few 09/11/16 05:24 Poikilocytosis Not Reportable 09/11/16 05:24 Anisocytosis 1+ 09/11/16 05:24 Microcytosis Not Reportable 09/11/16 05:24 Macrocytosis Not Reportable 09/11/16 05:24 Spherocytes Not Reportable 09/11/16 05:24 Pappenheimer Bodies Not Reportable 09/11/16 05:24 Sickle Cells Not Reportable 09/11/16 05:24 Target Cells Rare 09/11/16 05:24 Tear Drop Cells Not Reportable 09/11/16 05:24 Ovalocytes Not Reportable 09/11/16 05:24 Helmet Cells Not Reportable 09/11/16 05:24 [place] Bodies Not Reportable 09/11/16 05:24 [place] Rings Not Reportable 09/11/16 05:24 [place] Cells Not Reportable 09/11/16 05:24 Bite Cells Not Reportable 09/11/16 05:24 Crenated Cell Not Reportable 09/11/16 05:24 Elliptocytes Not Reportable 09/11/16 05:24 Acanthocytes (Spur) Not Reportable 09/11/16 05:24 Rouleaux Not Reportable 09/11/16 05:24 Hemoglobin C Crystals Not Reportable 09/11/16 05:24 Schistocytes Not Reportable 09/11/16 05:24 Malaria parasites Not Reportable 09/11/16 05:24 ESR 77 mm/Hr (0-20) 09/10/16 12:25 Luis Bodies Not Reportable 09/11/16 05:24 Hem Pathologist Commnt No 09/11/16 05:24 PT 15.5 Sec. (12.2-14.9) H 09/10/16 12:25 INR 1.24 (0.87-1.13) H 09/10/16 12:25 APTT 29.5 Sec. (24.2-36.6) 09/10/16 12:25 Sodium 139 mmol/L (137-145) 09/20/16 05:00 Potassium 4.0 mmol/L (3.6-5.0) 09/20/16 05:00 Chloride 101.5 mmol/L (98-107) 09/20/16 05:00 Carbon Dioxide 23 mmol/L (22-30) 09/20/16 05:00 Anion Gap 19 mmol/L 09/20/16 05:00 BUN 31 mg/dL (7-17) H 09/20/16 05:00 Creatinine 1.9 mg/dL (0.7-1.2) H 09/20/16 05:00 Estimated GFR 33 ml/min 09/20/16 05:00 BUN/Creatinine Ratio 16.31 % 09/20/16 05:00 Glucose 145 mg/dL (65-100) H 09/20/16 05:00 POC Glucose 200 (70-105) H 09/20/16 12:25 Lactic Acid 1.5 mmol/L (0.7-2.0) 09/10/16 15:10 Calcium 8.1 mg/dL (8.4-10.2) L 09/20/16 05:00 Phosphorus 3.4 mg/dL (2.5-4.5) 09/20/16 05:00 Magnesium 2.1 mg/dL (1.7-2.3) 09/12/16 05:30 Total Bilirubin 0.7 mg/dL (0.1-1.2) 09/11/16 05:24 Direct Bilirubin 0.4 mg/dL (0-0.2) H 09/10/16 12:25 Indirect Bilirubin 0.6 mg/dL 09/10/16 12:25 AST 19 units/L (5-40) 09/11/16 05:24 ALT 16 units/L (7-56) 09/11/16 05:24 Alkaline Phosphatase 61 units/L (35-129) 09/11/16 05:24 C-Reactive Protein 33.40 mg/dL (0.00-1.30) H 09/10/16 12:25 Total Protein 7.9 g/dL (6.3-8.2) 09/11/16 05:24 Albumin 2.8 g/dL (3.9-5) L 09/11/16 05:24 Albumin/Globulin Ratio 0.5 % 09/11/16 05:24 PTH Intact 86.23 pg/mL (15-65) H 09/12/16 05:30 Urine Eosinophils None seen (None Seen) 09/14/16 18:00 Urine Creatinine 135.8 mg/dL (0.1-20.0) H 09/14/16 18:00 Urine Microalbumin 33.7 mg/dL (0.1-34.0) 09/14/16 18:00 Microalb/Creat Ratio 248.1 ug/mg 09/14/16 18:00 Protein/Creatinin Ratio 0.83 09/14/16 18:00 Urine Sodium 30 mEq/L 09/14/16 18:00 Urine Chloride 18.4 mEq/L (110-250) L 09/14/16 18:00 Urine Total Protein 113 mg/dL (5-11.8) H 09/14/16 18:00 Vancomycin Trough 24.9 ug/mL (5.0-20.0) H 09/18/16 23:58 Blood Type B POSITIVE 09/10/16 12:25 Antibody Screen Negative 09/10/16 12:25
[2016-09-20] MEDS: FLAGYL PO SCH ×2 (14:18→23:08)
--- NOTE | 2016-09-20 14:42 | Progress Note ---
Assessment and Plan - Patient Problems (1) Acute renal failure (ARF) Current Visit: Yes Status: Acute Plan to address problem: Renal function reviewed, SCr level decreased to 1.9 today, yesterday's SCr level was 2.1 Renally dose medications Avoid nephrotoxic agents Obtain daily weight Strict intake and output Patient will need to follow up with our nephrology practice within 1-2 weeks of discharge Renal plan discussed with Dr Schultz Continue supportive therapy (2) Diabetes mellitus type 2, insulin dependent Current Visit: Yes Status: Chronic Plan to address problem: As per primary team On insulin (3) Diabetic infection of right foot Current Visit: Yes Status: Chronic Plan to address problem: As per Infectious Disease and Orthopedic surgery Currently on Levaquin and Flagyl Subjective Date of service: 09/20/16 Principal diagnosis: Diabetic foot infection Interval history: Patient resting in bed, easily aroused to verbal stimuli. No acute distress Objective - Vital Signs Vital signs: Vital Signs - 12hr 09/20/16 09/20/16 09/20/16 04:58 05:38 05:58 Temperature Pulse Rate [ Right Radial] Respiratory 20 18 20 Rate Blood Pressure [Right Arm] O2 Sat by Pulse Oximetry 09/20/16 06:50 Temperature 98 F Pulse Rate [ 92 H Right Radial] Respiratory 18 Rate Blood Pressure 126/58 [Right Arm] O2 Sat by Pulse 97 Oximetry - General Appearance General appearance: well-developed (no acute distress) EENT: ATNC Neck: no JVD Respiratory: Present: Clear to Ascultation Cardiology: regular, S1S2 Gastrointestinal: normoactive bowel sounds, no tenderness Integumentary: other (right foot wound with wound vac and dressing in place) Neurologic: alert and oriented x3 Musculoskeletal: other (2+ edema to both lower extremities) Psychiatric: mood/affect appropriate, cooperative - Lab 09/20/16 05:00 09/20/16 05:00 Most recent lab results Calcium 8.1 mg/dL (8.4-10.2) L 09/20/16 05:00 Phosphorus 3.4 mg/dL (2.5-4.5) 09/20/16 05:00 Magnesium 2.1 mg/dL (1.7-2.3) 09/12/16 05:30 Urine Creatinine 135.8 mg/dL (0.1-20.0) H 09/14/16 18:00 Urine Sodium 30 mEq/L 09/14/16 18:00 Urine Total Protein 113 mg/dL (5-11.8) H 09/14/16 18:00
[2016-09-20] MEDS ORDERED: LASIX IV ONE (15:00)
[2016-09-20] MEDS: PEPCID PO SCH (23:08)
[2016-09-20] MEDS: LEVEMIR SUB-Q SCH (23:09)
[2016-09-21] MEDS ORDERED: ROBITUSSIN PO PRN (04:38)
[2016-09-21] MEDS: SYNTHROID PO SCH (06:00)
[2016-09-21] MEDS: FLAGYL PO SCH ×3 (06:01→22:50)
[2016-09-21] MEDS: BROVANA NEBU IH SCH ×2 (07:26→20:27)
[2016-09-21] MEDS: PULMICORT IH SCH ×2 (07:26→20:27)
--- NOTE | 2016-09-21 09:04 | Progress Note ---
Assessment and Plan (1) Acute renal failure (ARF) Current Visit: Yes Status: Acute Plan to address problem: labs are pending this AM, Cr was slowly rising, could be related to antibiotics Renally dose medications Avoid nephrotoxic agents Obtain daily weight Strict intake and output Patient will need to follow up with our nephrology practice within 1-2 weeks of discharge (2) Diabetes mellitus type 2, insulin dependent Current Visit: Yes Status: Chronic Plan to address problem: As per primary team On insulin (3) Diabetic infection of right foot Current Visit: Yes Status: Chronic Plan to address problem: As per Infectious Disease and Orthopedic surgery Currently on Levaquin and Flagyl Subjective Date of service: 09/21/16 Principal diagnosis: Diabetic foot infection Interval history: denies overnight events Objective - Vital Signs Vital signs: Vital Signs - 12hr 09/20/16 09/20/16 09/20/16 22:00 23:08 23:23 Temperature 98.9 F Pulse Rate [ 94 H Right Dorsalis Pedis] Pulse Rate [ 108 H Right Radial] Respiratory 24 24 18 Rate Blood Pressure 123/56 [Right Arm] O2 Sat by Pulse 98 Oximetry - General Appearance General appearance: well-developed, well-nourished, obese EENT: ATNC, PERRL, mucous membranes moist Neck: no JVD, no carotid bruit Respiratory: Present: Clear to Ascultation. Absent: Rales, Ronchi Cardiology: regular, S1S2 Gastrointestinal: normoactive bowel sounds, no tenderness, no distended, obese Integumentary: no rash, warm and dry Neurologic: no focal deficit, no asterixis, alert and oriented x3 Musculoskeletal: other (edema in RLE) Psychiatric: mood/affect appropriate, cooperative - Lab 09/20/16 05:00 09/20/16 05:00 Most recent lab results Calcium 8.1 mg/dL (8.4-10.2) L 09/20/16 05:00 Phosphorus 3.4 mg/dL (2.5-4.5) 09/20/16 05:00 Magnesium 2.1 mg/dL (1.7-2.3) 09/12/16 05:30 Urine Creatinine 135.8 mg/dL (0.1-20.0) H 09/14/16 18:00 Urine Sodium 30 mEq/L 09/14/16 18:00 Urine Total Protein 113 mg/dL (5-11.8) H 09/14/16 18:00
[2016-09-21] MEDS: CLARITIN PO SCH (09:05)
[2016-09-21] MEDS: LEVAQUIN PO SCH (09:05)
[2016-09-21] MEDS: PEPCID PO SCH ×2 (09:06→22:50)
[2016-09-21 09:49] LABS: Basophils % (Auto) 0.7 % (0.0-1.8); Eosinophils % (Auto) 2.8 % (0.0-4.3); Hematocrit 29.4 % (30.3-42.9); Hemoglobin 9.2 gm/dl (10.1-14.3); Mean Corpuscular HGB Conc 31 % (30-34); Mean Corpuscular Hemoglobin 27 pg (28-32); Mean Corpuscular Volume 85 fl (79-97); Platelet Count 236 K/mm3 (140-440); Red Blood Count 3.44 M/mm3 (3.65-5.03); Red Cell Distribution Width 15.4 % (13.2-15.2); White Blood Count 13.4 K/mm3 (4.5-11.0)
[2016-09-21 10:00] LABS: BUN/Creatinine Ratio 15.55; Calcium 8.5 mg/dL (8.4-10.2); Chloride 104.5 mmol/L (98-107); Potassium 4.2 mmol/L (3.6-5.0)
--- NOTE | 2016-09-21 10:09 | Progress Note ---
Assessment and Plan Current antibiotics: Levaquin 750 mg po q24h 09/20 --> Flagyl 500 mg po q8h 09/20 --> Previous antibiotics: Vancomycin 1250 mg IV q24h 09/10-09/20 Zosyn 2.25 gm IV q8h 09/10-09/20 ASSESSMENT: Lizbeth Zimmerman is a 56 year old woman with type 2 diabetes mellitus, hypothyroidism, hypertension and COPD who was admitted to [facility] on 09/10/16 with right foot swelling, malodorous drainage from the 4th and 3rd digit, fluid filled blister on the dorsum of the foot. She underwent 4th & 5th amputation and drainage of abscess on 09/12 Problem list: 1. Right foot 4th digit gangrene with associated maceration -s/p amputation of 4th and 5th digit at the MP joint and debridement of large abscess 09/12 -Likely polymicrobial mixed aerobic and anaerobic infection with malodorous drainage. -Pathology showed evidence of active infection at surgical margins 2. Skin rash -Worsening with discontinuation of vancomycin and Zosyn -Rule out another drug as the culprit. ? Morphine 3. Type 2 diabetes mellitus -Peripheral neuropathy 4. Leukocytosis -Reactive secondary to #1. -Trending downward 5. Renal failure -Improving -Rule out component of chronic kidney disease 6. Hypothyroidism -On replacement therapy 7. History of COPD PLAN: 1. Continue Levaquin 750 mg po q day and Flagyl 500 mg po TID 2. Consider stopping morphine 3. Consider short course of corticosteroids 4. If discharged to follow-up with us in the office in 7-10 days. If she does not continue to clinically improve or should she worsen will then entertain switching her to IV therapy 5. With pathology showing of infection at surgical margins will need long-term (4-6 weeks) of antibiotics. 6. Glycemic control as per primary team Henrique Raymundo MD [facility] Office: [phone] Subjective Date of service: 09/21/16 Principal diagnosis: Diabetic foot infection Interval history: Skin rash is worse and now somewhat pruritic. No other complaints. ROS: No subjective fever or chills. No nausea, vomiting or diarrhea. No shortness of breath, cough or pleuritic chest pain Objective - Exam Narrative Exam: GENERAL: Well-developed, obese female who is alert and in no acute distress. HEAD: Normocephalic. No lesions seen. EYES: Pupils are equal reactive to light and accommodation. There is no scleral icterus. Optic fundi are not examined. EARS: Tympanic membranes are normal. THROAT: Oropharynx is normal with no evidence of oral candidiasis or pharyngitis. NECK: Supple. No enlargement of the thyroid gland. No significant cervical lymphadenopathy. No jugular venous distention at 30. LUNGS: Clear with no adventitious sounds. HEART: Regular rate. S1 and S2 are normal. There are no murmurs, gallops, clicks or rubs heard. ABDOMEN: Soft and nontender. Liver and spleen are not palpably enlarged or tender. No palpable masses. Bowel sounds are normoactive. EXTREMITIES: Right foot with wound VAC in place and surgical dressings. Moderate edema to mid pretibial area. No signs of ascending infection. SKIN: The dry, scaly, maculopapular rash has increased in extent today involving her lower face, anterior chest, upper abdomen and thighs. There is no mucous membrane involvement. : Not examined NEUROLOGIC: Decreased sensation to pinprick in a stocking distribution. - Constitutional Vitals: Vital Signs Temp Pulse Resp BP Pulse Ox 99.4 F 87 18 146/69 100 09/21/16 07:55 09/21/16 07:55 09/21/16 07:55 09/21/16 07:55 09/21/16 07:55 Temperature -Last 24 Hours Temperature 99.4 F Temperature 98.9 F Temperature 99 F - Labs CBC & Chem 7: 09/21/16 Unknown 09/21/16 Unknown Labs: Abnormal lab results Microbiology 09/12/16 Unknown Foot - Right Surgical Culture - Gram stain: Many PMNs: Few gram-positive rods suggestive of diphtheroids, moderate gram-positive cocci in pairs 09/12/16 Unknown Foot - Right Anaerobic Culture - Pending 09/11/16 Unknown Foot - Right superficial wound culture - normal skin ade 09/10/16 13:04 Peripheral/Venous Blood Culture - Preliminary NO GROWTH AFTER 4 DAYS 09/10/16 12:25 Peripheral/Venous Blood Culture - Preliminary NO GROWTH AFTER 4 DAYS 09/12 Pathology: Acute inflammation and bacteria present at surgical margins of both amputated toes
--- NOTE | 2016-09-21 13:06 | Progress Note ---
Assessment and Plan alerty orientated in NAD, Been OOB , ambulated on foot c post op shoue. Wound estevan and healing May need STSG in future. Office Follow up. Subjective Date of service: 09/21/16 Principal diagnosis: Diabetic foot infection Objective Vital signs: Vital Signs - 12hr 09/21/16 09/21/16 09/21/16 07:26 07:36 07:55 Temperature 99.4 F Pulse Rate [ 84 96 H Anterior Bilateral Throughout] Pulse Rate [ 87 Right Radial] Respiratory 18 Rate Respiratory 20 20 Rate [Anterior Bilateral Throughout] Blood Pressure 146/69 [Right Arm] O2 Sat by Pulse 100 Oximetry - Labs CBC & BMP: 09/21/16 Unknown 09/21/16 Unknown Labs: Abnormal lab results 09/20/16 09/20/16 09/21/16 Range/Units 16:44 21:16 06:20 WBC (4.5-11.0) K/mm3 RBC (3.65-5.03) M/mm3 Hgb (10.1-14.3) gm/dl Hct (30.3-42.9) % MCH (28-32) pg RDW (13.2-15.2) % [place] # (0.0-0.8) K/mm3 Seg Neutrophils % (40.0-70.0) % Seg Neutrophils # (1.8-7.7) K/mm3 BUN (7-17) mg/dL Creatinine (0.7-1.2) mg/dL Glucose (65-100) mg/dL POC Glucose 164 H 202 H 119 H (70-105) 09/21/16 09/21/16 09/21/16 Range/Units 11:55 Unknown Unknown WBC 13.4 H (4.5-11.0) K/mm3 RBC 3.44 L (3.65-5.03) M/mm3 Hgb 9.2 L (10.1-14.3) gm/dl Hct 29.4 L (30.3-42.9) % MCH 27 L (28-32) pg RDW 15.4 H (13.2-15.2) % [place] # 0.9 H (0.0-0.8) K/mm3 Seg Neutrophils % 73.9 H (40.0-70.0) % Seg Neutrophils # 9.9 H (1.8-7.7) K/mm3 BUN 28 H (7-17) mg/dL Creatinine 1.8 H (0.7-1.2) mg/dL Glucose 158 H (65-100) mg/dL POC Glucose 149 H (70-105)
[2016-09-21] MEDS: NORCO 5/325 PO PRN ×2 (14:01→22:55)
[2016-09-21] MEDS: BENADRYL IV PRN (14:01)
--- NOTE | 2016-09-21 18:47 | Progress Note ---
Assessment and Plan Assessment and plan: Patient is a pleasant 56-year-old woman with type 2 diabetes mellitus, hypothyroidism, hypertension and COPD who was admitted to [facility] on 09/10/16 with right foot swelling, malodorous drainage from the 4th and 3rd digit, fluid filled blister on the dorsum of the foot. She underwent 4th & 5th amputation and drainage of large abscess on 09/12. A wound VAC was placed. She was treated for sepsis with vancomycin and Zosyn blood cultures were unrevealing, surgical cultures reveals- gram-negative rods; gram-positive rods, gram- positive cocci in clusters, gram-positive cocci in pairs all on final surgical culture - growth of "normal skin ade" pathology showed infection at surgical margins, she did have leukocytosis with no fever this was felt to be reactive. Blood sugar was well controlled patient was on losartan and hydrochlorothiazide , in addition with metformin and Lasix in addition to insulin. I did discontinue the losartan, hydrochlorothiazide and metformin in setting of acute on chronic kidney injury. Follow G was on board. On discharge patient suspected to follow with ID, nephrology, surgery on her primary care physician. There are hospitalization she did develop a body rash noted.Antibiotics were was started on changed but rash persisted, finally discontinued the morphine. He was started on short course of steroids. The PPI. Stated that the discharge tomorrow if she is just waiting the wound VAC as this has been improved by the insurance company. 1. Sepsis present on admission secondary to right foot cellulitis with gangrene to the toe- s/post debridement and fourth and fifth digit MP joints amputation. ID input also noted. Discussed with ID antibiotics switched to by mouth to rule out drug induced rash. Continue when necessary Benadryl. Continue steroid daily. 2. Diabetes type 2-with insulin continue insulin regime 25units, cont to monitor glucose 3. Hypothyroidism-cont thyroxine replacement 4. Morbid obesity- life style, modification advised- diet; weight loss and exercise 5. Acute kidney injury on chronic kidney disease stage III-secondary to visible due to nephropathy. Initially a 6 was held with patient began returning fluids and did receive a dose of Lasix yesterday. We'll monitor creatinine. She needs a full nephrology of discharge Nephrology consult appreciated. Patient did use some NSAIDs. Continue to avoid all nephrotoxic medications. Also continue to hold ARB's diuretic. Daily weights and strict ins and outs 6. Diabetic foot infection-present on admission. As noted #1 above. 7. Fluid overload-patient normally on Lasix at home this has been held due to renal function will give dose 1 today. 8. Pleuritic rash-question drug induced. We'll give a dose of Benadryl. We' ll also put patient on H2 angel. We'll add steroids Discussed with ID. 9. DVT prophylaxis-discharge in a.m. once the wound VAC is here History Interval history: F/U diabetic foot infection Patient seen and examined this morning in no acute distress, Still pleuritic rash. prominent on her face and chest but also some on her thighs. She has not had a similar rash before. She also reports that she feels she is more swollen. Denies any chest pain, nausea, vomiting, diarrhea No fever noted blood pressure controlled No adverse events reported to me by nursing staff Hospitalist Physical - Physical exam Narrative exam: VITAL SIGNS: Reviewed. GENERAL: The patient appeared well nourished and normally developed. Vital signs as documented. HEAD: No signs of head trauma. EYES: Pupils are equal. Extraocular motions intact. EARS: Hearing grossly intact. MOUTH: Oropharynx is normal. NECK: No adenopathy, no JVD. CHEST: Chest with clear breath sounds bilaterally. No wheezes, rales, or rhonchi. CARDIAC: Regular rate and rhythm. S1 and S2, without murmurs, gallops, or rubs. VASCULAR: 2+ pitting edema with decreased peripheral pulses worse on the right lower extremity ABDOMEN: Soft, without detectable tenderness. No sign of distention. No rebound or guarding, and no masses palpated. Bowel Sounds normal. MUSCULOSKELETAL: Good range of motion of all major joints. Extremities edema, black Jakob bandage to the right foot status post toe amputation NEUROLOGIC EXAM: Alert and oriented x 3. No focal sensory or strength deficits. Speech normal. Follows commands. PSYCHIATRIC: Mood normal. SKIN: , Rash wound vac in place. - Constitutional Vitals: Temp Pulse Resp BP Pulse Ox 99.1 F 112 H 20 134/68 100 09/21/16 15:55 09/21/16 15:55 09/21/16 15:55 09/21/16 15:55 09/21/16 07:55 General appearance: Present: no acute distress, well-nourished, obese Results - Labs CBC & Chem 7: 09/21/16 Unknown 09/21/16 Unknown Labs: Laboratory Last Values WBC 13.4 K/mm3 (4.5-11.0) H 09/21/16 Unknown RBC 3.44 M/mm3 (3.65-5.03) L 09/21/16 Unknown Hgb 9.2 gm/dl (10.1-14.3) L 09/21/16 Unknown Hct 29.4 % (30.3-42.9) L 09/21/16 Unknown MCV 85 fl (79-97) 09/21/16 Unknown MCH 27 pg (28-32) L 09/21/16 Unknown MCHC 31 % (30-34) 09/21/16 Unknown RDW 15.4 % (13.2-15.2) H 09/21/16 Unknown Plt Count 236 K/mm3 (140-440) 09/21/16 Unknown Lymph % (Auto) 15.9 % (13.4-35.0) 09/21/16 Unknown [place] % (Auto) 6.7 % (0.0-7.3) 09/21/16 Unknown Eos % (Auto) 2.8 % (0.0-4.3) 09/21/16 Unknown Baso % (Auto) 0.7 % (0.0-1.8) 09/21/16 Unknown Lymph # 2.1 K/mm3 (1.2-5.4) 09/21/16 Unknown [place] # 0.9 K/mm3 (0.0-0.8) H 09/21/16 Unknown Eos # 0.4 K/mm3 (0.0-0.4) 09/21/16 Unknown Baso # 0.1 K/mm3 (0.0-0.1) 09/21/16 Unknown Add Manual Diff Complete 09/11/16 05:24 Total Counted 100 09/11/16 05:24 Seg Neutrophils % 73.9 % (40.0-70.0) H 09/21/16 Unknown Seg Neuts % (Manual) 80.0 % (40.0-70.0) H 09/11/16 05:24 Band Neutrophils % 0 % 09/11/16 05:24 Lymphocytes % (Manual) 11.0 % (13.4-35.0) L 09/11/16 05:24 Reactive Lymphs % (Man) 0 % 09/11/16 05:24 Monocytes % (Manual) 7.0 % (0.0-7.3) 09/11/16 05:24 Eosinophils % (Manual) 2.0 % (0.0-4.3) 09/11/16 05:24 Basophils % (Manual) 0 % (0.0-1.8) 09/11/16 05:24 Metamyelocytes % 0 % 09/11/16 05:24 Myelocytes % 0 % 09/11/16 05:24 Promyelocytes % 0 % 09/11/16 05:24 Blast Cells % 0 % 09/11/16 05:24 Nucleated RBC % Not Reportable 09/11/16 05:24 Seg Neutrophils # 9.9 K/mm3 (1.8-7.7) H 09/21/16 Unknown Seg Neutrophils # Man 16.2 K/mm3 (1.8-7.7) H 09/11/16 05:24 Band Neutrophils # 0.0 K/mm3 09/11/16 05:24 Lymphocytes # (Manual) 2.2 K/mm3 (1.2-5.4) 09/11/16 05:24 Abs React Lymphs (Man) 0.0 K/mm3 09/11/16 05:24 Monocytes # (Manual) 1.4 K/mm3 (0.0-0.8) H 09/11/16 05:24 Eosinophils # (Manual) 0.4 K/mm3 (0.0-0.4) 09/11/16 05:24 Basophils # (Manual) 0.0 K/mm3 (0.0-0.1) 09/11/16 05:24 Metamyelocytes # 0.0 K/mm3 09/11/16 05:24 Myelocytes # 0.0 K/mm3 09/11/16 05:24 Promyelocytes # 0.0 K/mm3 09/11/16 05:24 Blast Cells # 0.0 K/mm3 09/11/16 05:24 WBC Morphology Not Reportable 09/11/16 05:24 Hypersegmented Neuts Not Reportable 09/11/16 05:24 Hyposegmented Neuts Not Reportable 09/11/16 05:24 Hypogranular Neuts Not Reportable 09/11/16 05:24 Smudge Cells Not Reportable 09/11/16 05:24 Toxic Granulation Not Reportable 09/11/16 05:24 Toxic Vacuolation Not Reportable 09/11/16 05:24 Dohle Bodies Not Reportable 09/11/16 05:24 Pelger-Huet Anomaly Not Reportable 09/11/16 05:24 Nba Rods Not Reportable 09/11/16 05:24 Platelet Estimate Appears normal 09/11/16 05:24 Clumped Platelets Not Reportable 09/11/16 05:24 Plt Clumps, EDTA Not Reportable 09/11/16 05:24 Large Platelets Not Reportable 09/11/16 05:24 Giant Platelets Not Reportable 09/11/16 05:24 Platelet Satelliting Not Reportable 09/11/16 05:24 Plt Morphology Comment Not Reportable 09/11/16 05:24 RBC Morphology Not Reportable 09/11/16 05:24 Dimorphic RBCs Not Reportable 09/11/16 05:24 Polychromasia Few 09/11/16 05:24 Hypochromasia Few 09/11/16 05:24 Poikilocytosis Not Reportable 09/11/16 05:24 Anisocytosis 1+ 09/11/16 05:24 Microcytosis Not Reportable 09/11/16 05:24 Macrocytosis Not Reportable 09/11/16 05:24 Spherocytes Not Reportable 09/11/16 05:24 Pappenheimer Bodies Not Reportable 09/11/16 05:24 Sickle Cells Not Reportable 09/11/16 05:24 Target Cells Rare 09/11/16 05:24 Tear Drop Cells Not Reportable 09/11/16 05:24 Ovalocytes Not Reportable 09/11/16 05:24 Helmet Cells Not Reportable 09/11/16 05:24 [place] Bodies Not Reportable 09/11/16 05:24 [place] Rings Not Reportable 09/11/16 05:24 [place] Cells Not Reportable 09/11/16 05:24 Bite Cells Not Reportable 09/11/16 05:24 Crenated Cell Not Reportable 09/11/16 05:24 Elliptocytes Not Reportable 09/11/16 05:24 Acanthocytes (Spur) Not Reportable 09/11/16 05:24 Rouleaux Not Reportable 09/11/16 05:24 Hemoglobin C Crystals Not Reportable 09/11/16 05:24 Schistocytes Not Reportable 09/11/16 05:24 Malaria parasites Not Reportable 09/11/16 05:24 ESR 77 mm/Hr (0-20) 09/10/16 12:25 Luis Bodies Not Reportable 09/11/16 05:24 Hem Pathologist Commnt No 09/11/16 05:24 PT 15.5 Sec. (12.2-14.9) H 09/10/16 12:25 INR 1.24 (0.87-1.13) H 09/10/16 12:25 APTT 29.5 Sec. (24.2-36.6) 09/10/16 12:25 Sodium 142 mmol/L (137-145) 09/21/16 Unknown Potassium 4.2 mmol/L (3.6-5.0) 09/21/16 Unknown Chloride 104.5 mmol/L (98-107) 09/21/16 Unknown Carbon Dioxide 24 mmol/L (22-30) 09/21/16 Unknown Anion Gap 18 mmol/L 09/21/16 Unknown BUN 28 mg/dL (7-17) H 09/21/16 Unknown Creatinine 1.8 mg/dL (0.7-1.2) H 09/21/16 Unknown Estimated GFR 35 ml/min 09/21/16 Unknown BUN/Creatinine Ratio 15.55 % 09/21/16 Unknown Glucose 158 mg/dL (65-100) H 09/21/16 Unknown POC Glucose 149 (70-105) H 09/21/16 11:55 Lactic Acid 1.5 mmol/L (0.7-2.0) 09/10/16 15:10 Calcium 8.5 mg/dL (8.4-10.2) 09/21/16 Unknown Phosphorus 3.4 mg/dL (2.5-4.5) 09/20/16 05:00 Magnesium 2.1 mg/dL (1.7-2.3) 09/12/16 05:30 Total Bilirubin 0.7 mg/dL (0.1-1.2) 09/11/16 05:24 Direct Bilirubin 0.4 mg/dL (0-0.2) H 09/10/16 12:25 Indirect Bilirubin 0.6 mg/dL 09/10/16 12:25 AST 19 units/L (5-40) 09/11/16 05:24 ALT 16 units/L (7-56) 09/11/16 05:24 Alkaline Phosphatase 61 units/L (35-129) 09/11/16 05:24 C-Reactive Protein 33.40 mg/dL (0.00-1.30) H 09/10/16 12:25 Total Protein 7.9 g/dL (6.3-8.2) 09/11/16 05:24 Albumin 2.8 g/dL (3.9-5) L 09/11/16 05:24 Albumin/Globulin Ratio 0.5 % 09/11/16 05:24 PTH Intact 86.23 pg/mL (15-65) H 09/12/16 05:30 Urine Eosinophils None seen (None Seen) 09/14/16 18:00 Urine Creatinine 135.8 mg/dL (0.1-20.0) H 09/14/16 18:00 Urine Microalbumin 33.7 mg/dL (0.1-34.0) 09/14/16 18:00 Microalb/Creat Ratio 248.1 ug/mg 09/14/16 18:00 Protein/Creatinin Ratio 0.83 09/14/16 18:00 Urine Sodium 30 mEq/L 09/14/16 18:00 Urine Chloride 18.4 mEq/L (110-250) L 09/14/16 18:00 Urine Total Protein 113 mg/dL (5-11.8) H 09/14/16 18:00 Vancomycin Trough 24.9 ug/mL (5.0-20.0) H 09/18/16 23:58 Blood Type B POSITIVE 09/10/16 12:25 Antibody Screen Negative 09/10/16 12:25
[2016-09-21] MEDS: LEVEMIR SUB-Q SCH (22:50)
[2016-09-21] MEDS: DELTASONE PO SCH (22:52)
[2016-09-22] MEDS: SYNTHROID PO SCH (05:30)
[2016-09-22] MEDS: FLAGYL PO SCH ×2 (05:30→15:54)
[2016-09-22] MEDS: PULMICORT IH SCH (07:24)
[2016-09-22] MEDS: BROVANA NEBU IH SCH (07:24)
[2016-09-22] MEDS: LEVAQUIN PO SCH (09:08)
[2016-09-22] MEDS: DELTASONE PO SCH (09:08)
[2016-09-22] MEDS: PEPCID PO SCH (09:08)
[2016-09-22] MEDS: CLARITIN PO SCH (09:08)
--- NOTE | 2016-09-22 10:24 | Progress Note ---
Assessment and Plan Current antibiotics: Levaquin 750 mg po q24h 09/20 --> Flagyl 500 mg po q8h 09/20 --> Previous antibiotics: Vancomycin 1250 mg IV q24h 09/10-09/20 Zosyn 2.25 gm IV q8h 09/10-09/20 ASSESSMENT: Lizbeth Zimmerman is a 56 year old woman with type 2 diabetes mellitus, hypothyroidism, hypertension and COPD who was admitted to [facility] on 09/10/16 with right foot swelling, malodorous drainage from the 4th and 3rd digit, fluid filled blister on the dorsum of the foot. She underwent 4th & 5th amputation and drainage of abscess on 09/12 Problem list: 1. Right foot 4th digit gangrene with associated maceration -s/p amputation of 4th and 5th digit at the MP joint and debridement of large abscess 09/12 -Likely polymicrobial mixed aerobic and anaerobic infection with malodorous drainage. -Pathology showed evidence of active infection at surgical margins 2. Skin rash -Worsening with discontinuation of vancomycin and Zosyn -Rule out another drug as the culprit. ? Morphine - Now on low-dose prednisone 3. Type 2 diabetes mellitus -Peripheral neuropathy 4. Leukocytosis -Reactive secondary to #1. -Trending downward 5. Renal failure -Improving -Rule out component of chronic kidney disease 6. Hypothyroidism -On replacement therapy 7. History of COPD PLAN: 1. Continue Levaquin 750 mg po q day and Flagyl 500 mg po TID 2. Steroids titration as per Hospitalist 3. If discharged to follow-up with us in the office in 7-10 days. 4. With pathology showing of infection at surgical margins will need long-term (4-6 weeks) of antibiotics. 5. Glycemic control as per primary team Subjective Date of service: 09/22/16 Principal diagnosis: Diabetic foot infection Interval history: No new problems overnight. Continues with extremity, chest wall, neck desquamating rash. On phone otherwise with insurance company to work out details concerning home wound VAC. Objective - Exam Narrative Exam: GENERAL: Well-developed, obese female who is alert and in no acute distress. HEAD: Normocephalic. No lesions seen. EYES: Pupils are equal reactive to light and accommodation. There is no scleral icterus. EARS: No evidence of drainage THROAT: Oropharynx is normal with no evidence of oral candidiasis or pharyngitis. No evidence of mucositis. NECK: Supple. No enlargement of the thyroid gland. No significant cervical lymphadenopathy. No jugular venous distention at 60. LUNGS: Clear with no adventitious sounds. Diminished in the bases HEART: Regular rate. S1 and S2 are normal. There are no murmurs, gallops, clicks or rubs heard. ABDOMEN: Soft and nontender obese. Liver and spleen are not palpably enlarged or tender. No palpable masses. Bowel sounds are normoactive. EXTREMITIES: Right foot with wound VAC in place and surgical dressings. Moderate edema to mid pretibial area. SKIN: Desquamating rash over neck, trunk and extremities with peeling of large skin fragments NEUROLOGIC: Decreased sensation to pinprick in a stocking distribution. - Constitutional Vitals: Vital Signs Temp Pulse Resp BP Pulse Ox 98.8 F 87 20 115/59 96 09/21/16 23:00 09/22/16 07:35 09/22/16 07:35 09/21/16 23:00 09/21/16 23:00 Temperature -Last 24 Hours Temperature 98.8 F Temperature 99.1 F - Labs CBC & Chem 7: 09/21/16 Unknown 09/21/16 Unknown Labs: Abnormal lab results 09/21/16 09/21/16 09/21/16 Range/Units 11:55 16:46 21:32 POC Glucose 149 H 138 H 205 H (70-105) 09/22/16 Range/Units 05:45 POC Glucose 195 H (70-105)
--- NOTE | 2016-09-22 15:33 | Progress Note ---
Assessment and Plan - Patient Problems (1) Acute renal failure (ARF) Current Visit: Yes Status: Acute Plan to address problem: Renal function reviewed, stable, SCr level decreased to 1.8 today, yesterday's SCr level was 1.9 Renally dose medications Avoid nephrotoxic agents Obtain daily weight Strict intake and output Patient will need to follow up with our nephrology practice within 1-2 weeks of discharge Renal plan discussed with Dr Schultz Continue supportive therapy (2) Diabetes mellitus type 2, insulin dependent Current Visit: Yes Status: Chronic Plan to address problem: As per primary team On insulin (3) Diabetic infection of right foot Current Visit: Yes Status: Chronic Plan to address problem: As per Infectious Disease and Orthopedic surgery Currently on Levaquin and Flagyl Subjective Date of service: 09/22/16 Principal diagnosis: Diabetic foot infection Interval history: Patient reports that her skin is peeling throughout her body, otherwise she feels ok. Patient states she will be getting discharged later on today. Objective - Vital Signs Vital signs: Vital Signs - 12hr 09/22/16 09/22/16 09/22/16 07:24 07:35 13:02 Temperature 98.1 F Pulse Rate [ 88 87 Anterior Bilateral Throughout] Pulse Rate [ 89 Right Radial] Respiratory 20 Rate Respiratory 18 20 Rate [Anterior Bilateral Throughout] Blood Pressure 117/64 [Right Arm] - General Appearance General appearance: well-developed (no acute distress) EENT: ATNC Neck: no JVD Respiratory: Present: Clear to Ascultation. Absent: Ronchi, Wheezes Cardiology: regular, S1S2 Gastrointestinal: normoactive bowel sounds, no tenderness Integumentary: other (skin rash/peeling throughout body) Neurologic: alert and oriented x3 Musculoskeletal: other (1-2+ edema to both lower extremities) Psychiatric: mood/affect appropriate, cooperative - Lab 09/21/16 Unknown 09/21/16 Unknown Most recent lab results Calcium 8.5 mg/dL (8.4-10.2) 09/21/16 Unknown Phosphorus 3.4 mg/dL (2.5-4.5) 09/20/16 05:00 Magnesium 2.1 mg/dL (1.7-2.3) 09/12/16 05:30 Urine Creatinine 135.8 mg/dL (0.1-20.0) H 09/14/16 18:00 Urine Sodium 30 mEq/L 09/14/16 18:00 Urine Total Protein 113 mg/dL (5-11.8) H 09/14/16 18:00
[2016-09-22 15:47] VITALS: BP 147/55
[2016-09-22] MEDS ORDERED: TRIPLE ANTIBIOTIC TP ONE (16:26)
== END 2016-09-22 19:12 | disposition home health service (06) | DRG 853 ==
LOC: ED 10:11 → 3A 21:14
PROVIDERS: ADMIT Internal Medicine; ATTEND Internal Medicine
PROC: 0Y6V0Z0 Detachment at Right 4th Toe, Complete, Open Approach (ICD-10-PCS; principal; 2016-09-12)
PROC: 0Y6X0Z0 Detachment at Right 5th Toe, Complete, Open Approach (ICD-10-PCS; principal; 2016-09-12)
PROC: 02HV33Z Insertion of Infusion Device into Superior Vena Cava, Percutaneous Approach (ICD-10-PCS; 2016-09-18)
DX: A41.9 Sepsis, unspecified organism (principal); N17.0 Acute kidney failure with tubular necrosis; E11.52 Type 2 diabetes mellitus with diabetic peripheral angiopathy with gangrene; L02.611 Cutaneous abscess of right foot; T69.021A Immersion foot, right foot, initial encounter; Z68.43 Body mass index [BMI] 50.0-59.9, adult; L03.031 Cellulitis of right toe; E66.01 Morbid (severe) obesity due to excess calories; M19.90 Unspecified osteoarthritis, unspecified site; J45.909 Unspecified asthma, uncomplicated; I25.10 Atherosclerotic heart disease of native coronary artery without angina pectoris; J44.9 Chronic obstructive pulmonary disease, unspecified; E03.9 Hypothyroidism, unspecified; N18.3 Chronic kidney disease, stage 3 (moderate); I12.9 Hypertensive chronic kidney disease with stage 1 through stage 4 chronic kidney disease, or unspecified chronic kidney disease; E11.21 Type 2 diabetes mellitus with diabetic nephropathy; E11.40 Type 2 diabetes mellitus with diabetic neuropathy, unspecified; E87.70 Fluid overload, unspecified; R09.1 Pleurisy; G89.29 Other chronic pain; Z79.899 Other long term (current) drug therapy; Z79.4 Long term (current) use of insulin; Z91.040 Latex allergy status; Z91.018 Allergy to other foods; Z91.013 Allergy to seafood; Z87.891 Personal history of nicotine dependence; Z82.49 Family history of ischemic heart disease and other diseases of the circulatory system
CPT/HCPCS: 36415; 71010; 76770; 80048; 80053; 80074; 80202; 82043; 82140; 82436; 82570; 82962; 83735; 83970; 84100; 84156; 84300; 85007; 85025; 85027; 85610; 85652; 85730; 86140; 86850; 86900; 86901; 87040; 87075; 87116; 88302; 88305; 88311; 89050; 90686; 93005; 93010; 93970; 94640; 96365; 96367; 96372; 96375; A6250; J1100; J1200; J1650; J1815; J1818; J1940; J2250; J2270; J2405; J2543; J2704; J3010; J3370; J7030; J7040; J7050; J7512

== ENCOUNTER 2016-10-03 09:42 | Outpatient (CLI) | payer MEDICARE ==
[2016-10-03] MEDS ORDERED: XYLOCAINE TOPICAL 2% TP ONE ×2 (10:37→13:16)
== END 2016-10-03 09:43 | disposition home or self-care (01) ==
LOC: WOUND 09:42
PROVIDERS: ATTEND Podiatrist
DX: S98.22 Partial traumatic amputation of two or more lesser toes (principal); E11.621 Type 2 diabetes mellitus with foot ulcer; E11.40 Type 2 diabetes mellitus with diabetic neuropathy, unspecified; I10 Essential (primary) hypertension; I12.9 Hypertensive chronic kidney disease with stage 1 through stage 4 chronic kidney disease, or unspecified chronic kidney disease; N18.9 Chronic kidney disease, unspecified; J45.909 Unspecified asthma, uncomplicated; E03.9 Hypothyroidism, unspecified; Z87.891 Personal history of nicotine dependence; X58.XXXD Exposure to other specified factors, subsequent encounter

== ENCOUNTER 2016-10-10 09:55 | Outpatient (CLI) | payer MEDICARE ==
[2016-10-10] MEDS ORDERED: XYLOCAINE TOPICAL 2% TP ONE ×2 (11:33→14:03)
== END 2016-10-10 09:56 | disposition home or self-care (01) ==
LOC: WOUND 09:55
PROVIDERS: ATTEND Podiatrist
DX: T87.89 Other complications of amputation stump (principal); E11.621 Type 2 diabetes mellitus with foot ulcer; L97.521 Non-pressure chronic ulcer of other part of left foot limited to breakdown of skin; E11.22 Type 2 diabetes mellitus with diabetic chronic kidney disease; I12.9 Hypertensive chronic kidney disease with stage 1 through stage 4 chronic kidney disease, or unspecified chronic kidney disease; N18.9 Chronic kidney disease, unspecified; E11.40 Type 2 diabetes mellitus with diabetic neuropathy, unspecified; E78.5 Hyperlipidemia, unspecified; J45.909 Unspecified asthma, uncomplicated; Z87.891 Personal history of nicotine dependence; Y83.5 Amputation of limb(s) as the cause of abnormal reaction of the patient, or of later complication, without mention of misadventure at the time of the procedure

== ENCOUNTER 2016-10-20 09:52 | Outpatient (CLI) | payer MEDICARE ==
[2016-10-20] MEDS ORDERED: XYLOCAINE TOPICAL 2% TP ONE ×2 (09:58→13:39)
== END 2016-10-20 09:53 | disposition home or self-care (01) ==
LOC: WOUND 09:52
PROVIDERS: ATTEND Podiatrist
DX: T87.89 Other complications of amputation stump (principal); E11.621 Type 2 diabetes mellitus with foot ulcer; L97.511 Non-pressure chronic ulcer of other part of right foot limited to breakdown of skin; S98.22 Partial traumatic amputation of two or more lesser toes; E11.22 Type 2 diabetes mellitus with diabetic chronic kidney disease; I12.9 Hypertensive chronic kidney disease with stage 1 through stage 4 chronic kidney disease, or unspecified chronic kidney disease; N18.3 Chronic kidney disease, stage 3 (moderate); L03.115 Cellulitis of right lower limb; E11.40 Type 2 diabetes mellitus with diabetic neuropathy, unspecified; J45.909 Unspecified asthma, uncomplicated; E03.9 Hypothyroidism, unspecified; Z87.891 Personal history of nicotine dependence; X58.XXXD Exposure to other specified factors, subsequent encounter
CPT/HCPCS: 97605

== ENCOUNTER 2016-10-27 10:09 | Outpatient (CLI) | payer MEDICARE ==
[2016-10-27] MEDS ORDERED: XYLOCAINE TOPICAL 2% TP ONE ×2 (10:38→15:00)
[2016-10-27] MEDS ORDERED: XYLOCAINE TOPICAL 4% TP ONE (12:34)
== END 2016-10-27 10:10 | disposition home or self-care (01) ==
LOC: WOUND 10:09
PROVIDERS: ATTEND Podiatrist
DX: T87.89 Other complications of amputation stump (principal); E11.621 Type 2 diabetes mellitus with foot ulcer; L97.513 Non-pressure chronic ulcer of other part of right foot with necrosis of muscle; E11.40 Type 2 diabetes mellitus with diabetic neuropathy, unspecified; E11.22 Type 2 diabetes mellitus with diabetic chronic kidney disease; I12.9 Hypertensive chronic kidney disease with stage 1 through stage 4 chronic kidney disease, or unspecified chronic kidney disease; N18.3 Chronic kidney disease, stage 3 (moderate); Z87.891 Personal history of nicotine dependence; J45.909 Unspecified asthma, uncomplicated; E03.9 Hypothyroidism, unspecified; Y83.5 Amputation of limb(s) as the cause of abnormal reaction of the patient, or of later complication, without mention of misadventure at the time of the procedure
CPT/HCPCS: 97605

== ENCOUNTER 2016-11-10 10:17 | Outpatient (CLI) | payer MEDICARE ==
[2016-11-10] MEDS ORDERED: XYLOCAINE TOPICAL 4% TP ONE ×2 (10:32→10:41)
== END 2016-11-10 10:18 | disposition home or self-care (01) ==
LOC: WOUND 10:17
PROVIDERS: ATTEND Podiatrist
DX: T87.89 Other complications of amputation stump (principal); E11.621 Type 2 diabetes mellitus with foot ulcer; L97.513 Non-pressure chronic ulcer of other part of right foot with necrosis of muscle; E11.40 Type 2 diabetes mellitus with diabetic neuropathy, unspecified; I12.9 Hypertensive chronic kidney disease with stage 1 through stage 4 chronic kidney disease, or unspecified chronic kidney disease; N18.9 Chronic kidney disease, unspecified; J45.909 Unspecified asthma, uncomplicated; E03.9 Hypothyroidism, unspecified; Z87.891 Personal history of nicotine dependence; Y83.5 Amputation of limb(s) as the cause of abnormal reaction of the patient, or of later complication, without mention of misadventure at the time of the procedure
CPT/HCPCS: 97605

== ENCOUNTER 2016-11-24 09:53 | Outpatient (CLI) | payer MEDICARE ==
[2016-11-24] MEDS ORDERED: XYLOCAINE TOPICAL 4% TP ONE ×2 (11:32→13:00)
== END 2016-11-24 09:54 | disposition home or self-care (01) ==
LOC: WOUND 09:53
PROVIDERS: ATTEND Podiatrist
DX: T87.89 Other complications of amputation stump (principal); E11.621 Type 2 diabetes mellitus with foot ulcer; L97.512 Non-pressure chronic ulcer of other part of right foot with fat layer exposed; E11.40 Type 2 diabetes mellitus with diabetic neuropathy, unspecified; J45.909 Unspecified asthma, uncomplicated; E03.9 Hypothyroidism, unspecified; E11.22 Type 2 diabetes mellitus with diabetic chronic kidney disease; I12.9 Hypertensive chronic kidney disease with stage 1 through stage 4 chronic kidney disease, or unspecified chronic kidney disease; N18.9 Chronic kidney disease, unspecified; Z87.891 Personal history of nicotine dependence; Y83.5 Amputation of limb(s) as the cause of abnormal reaction of the patient, or of later complication, without mention of misadventure at the time of the procedure
CPT/HCPCS: 97605

== ENCOUNTER 2016-12-01 07:55 | Outpatient (CLI) | payer MEDICARE ==
[2016-12-01] MEDS ORDERED: XYLOCAINE TOPICAL 4% TP ONE (08:04)
== END 2016-12-01 07:56 | disposition home or self-care (01) ==
LOC: WOUND 07:55
PROVIDERS: ATTEND Podiatrist
DX: T87.89 Other complications of amputation stump (principal); E11.621 Type 2 diabetes mellitus with foot ulcer; L97.511 Non-pressure chronic ulcer of other part of right foot limited to breakdown of skin; L03.115 Cellulitis of right lower limb; E11.40 Type 2 diabetes mellitus with diabetic neuropathy, unspecified; B35.1 Tinea unguium; J45.909 Unspecified asthma, uncomplicated; E11.22 Type 2 diabetes mellitus with diabetic chronic kidney disease; I12.9 Hypertensive chronic kidney disease with stage 1 through stage 4 chronic kidney disease, or unspecified chronic kidney disease; N18.9 Chronic kidney disease, unspecified; Z87.891 Personal history of nicotine dependence; Y83.5 Amputation of limb(s) as the cause of abnormal reaction of the patient, or of later complication, without mention of misadventure at the time of the procedure
CPT/HCPCS: 97605

== ENCOUNTER 2016-12-08 09:22 | Outpatient (CLI) | payer MEDICARE ==
[2016-12-08] MEDS ORDERED: XYLOCAINE TOPICAL 4% TP ONE (09:48)
[2016-12-08] MEDS ORDERED: XYLOCAINE TOPICAL 5% TP ONE (10:15)
== END 2016-12-08 09:23 | disposition home or self-care (01) ==
LOC: WOUND 09:22
PROVIDERS: ATTEND Podiatrist
DX: T87.89 Other complications of amputation stump (principal); E11.621 Type 2 diabetes mellitus with foot ulcer; L97.512 Non-pressure chronic ulcer of other part of right foot with fat layer exposed; E11.40 Type 2 diabetes mellitus with diabetic neuropathy, unspecified; J45.909 Unspecified asthma, uncomplicated; E03.9 Hypothyroidism, unspecified; E11.22 Type 2 diabetes mellitus with diabetic chronic kidney disease; I12.9 Hypertensive chronic kidney disease with stage 1 through stage 4 chronic kidney disease, or unspecified chronic kidney disease; N18.9 Chronic kidney disease, unspecified; Z87.891 Personal history of nicotine dependence; Y83.5 Amputation of limb(s) as the cause of abnormal reaction of the patient, or of later complication, without mention of misadventure at the time of the procedure
CPT/HCPCS: 97605

== ENCOUNTER 2016-12-15 09:27 | Outpatient (CLI) | payer MEDICARE ==
[2016-12-15] MEDS ORDERED: XYLOCAINE TOPICAL 2% TP ONE ×2 (09:57→10:30)
== END 2016-12-15 09:28 | disposition home or self-care (01) ==
LOC: WOUND 09:27
PROVIDERS: ATTEND Podiatrist
DX: T87.89 Other complications of amputation stump (principal); E11.621 Type 2 diabetes mellitus with foot ulcer; L97.512 Non-pressure chronic ulcer of other part of right foot with fat layer exposed; E11.40 Type 2 diabetes mellitus with diabetic neuropathy, unspecified; J45.909 Unspecified asthma, uncomplicated; E03.9 Hypothyroidism, unspecified; I12.9 Hypertensive chronic kidney disease with stage 1 through stage 4 chronic kidney disease, or unspecified chronic kidney disease; E11.22 Type 2 diabetes mellitus with diabetic chronic kidney disease; N18.9 Chronic kidney disease, unspecified; Z87.891 Personal history of nicotine dependence; Y83.5 Amputation of limb(s) as the cause of abnormal reaction of the patient, or of later complication, without mention of misadventure at the time of the procedure

== ENCOUNTER 2016-12-22 09:26 | Outpatient (CLI) | payer MEDICARE ==
[2016-12-22] MEDS ORDERED: XYLOCAINE TOPICAL 2% TP ONE ×2 (09:45→09:55)
== END 2016-12-22 09:27 | disposition home or self-care (01) ==
LOC: WOUND 09:26
PROVIDERS: ATTEND Podiatrist
DX: T87.89 Other complications of amputation stump (principal); E11.621 Type 2 diabetes mellitus with foot ulcer; L97.512 Non-pressure chronic ulcer of other part of right foot with fat layer exposed; E11.40 Type 2 diabetes mellitus with diabetic neuropathy, unspecified; J45.909 Unspecified asthma, uncomplicated; E03.9 Hypothyroidism, unspecified; E11.22 Type 2 diabetes mellitus with diabetic chronic kidney disease; I12.9 Hypertensive chronic kidney disease with stage 1 through stage 4 chronic kidney disease, or unspecified chronic kidney disease; N18.9 Chronic kidney disease, unspecified; Z87.891 Personal history of nicotine dependence; Y83.5 Amputation of limb(s) as the cause of abnormal reaction of the patient, or of later complication, without mention of misadventure at the time of the procedure

== ENCOUNTER 2016-12-29 09:32 | Outpatient (CLI) | payer MEDICARE ==
[2016-12-29] MEDS ORDERED: XYLOCAINE TOPICAL 4% TP ONE ×2 (09:47→11:00)
== END 2016-12-29 09:33 | disposition home or self-care (01) ==
LOC: WOUND 09:32
PROVIDERS: ATTEND Podiatrist
DX: T87.89 Other complications of amputation stump (principal); E11.621 Type 2 diabetes mellitus with foot ulcer; L97.512 Non-pressure chronic ulcer of other part of right foot with fat layer exposed; E11.40 Type 2 diabetes mellitus with diabetic neuropathy, unspecified; J45.909 Unspecified asthma, uncomplicated; E03.9 Hypothyroidism, unspecified; E11.22 Type 2 diabetes mellitus with diabetic chronic kidney disease; I12.9 Hypertensive chronic kidney disease with stage 1 through stage 4 chronic kidney disease, or unspecified chronic kidney disease; N18.9 Chronic kidney disease, unspecified; Z87.891 Personal history of nicotine dependence; Y83.5 Amputation of limb(s) as the cause of abnormal reaction of the patient, or of later complication, without mention of misadventure at the time of the procedure

== ENCOUNTER 2017-01-05 09:29 | Outpatient (CLI) | payer MEDICARE ==
[2017-01-05] MEDS ORDERED: XYLOCAINE TOPICAL 2% ONE ×2 (09:49→09:50)
[2017-01-05] MEDS ORDERED: XYLOCAINE TOPICAL 2% TP ONE (12:05)
== END 2017-01-05 09:30 | disposition home or self-care (01) ==
LOC: WOUND 09:29
PROVIDERS: ATTEND Podiatrist
DX: T87.89 Other complications of amputation stump (principal); E11.621 Type 2 diabetes mellitus with foot ulcer; L97.511 Non-pressure chronic ulcer of other part of right foot limited to breakdown of skin; L03.115 Cellulitis of right lower limb; E11.40 Type 2 diabetes mellitus with diabetic neuropathy, unspecified; J45.909 Unspecified asthma, uncomplicated; E03.9 Hypothyroidism, unspecified; E11.22 Type 2 diabetes mellitus with diabetic chronic kidney disease; I12.9 Hypertensive chronic kidney disease with stage 1 through stage 4 chronic kidney disease, or unspecified chronic kidney disease; N18.9 Chronic kidney disease, unspecified; Z87.891 Personal history of nicotine dependence; Y83.5 Amputation of limb(s) as the cause of abnormal reaction of the patient, or of later complication, without mention of misadventure at the time of the procedure

== ENCOUNTER 2017-01-11 13:45 | Emergency (ER) | payer MEDICARE ==
--- NOTE | 2017-01-11 16:57 | Emergency Department Report ---
Abscess Boil HPI - HPI Chief Complaint: Skin/Abscess/Foreign Body Stated Complaint: BOIL UNDER LEFT ARM Time Seen by Provider: 01/11/17 15:59 Severity: Moderate History: Yes Pain, Yes Purulent Drainage, No Fever, No Numbness, No Foreign Body , No Previous History, No Insect Bite HPI: 56-year-old female past medical history CHF diabetes multiple toe amputations presents with complaint of re-to 4 days of left axillary abscess/ flank abscess. Denies fevers chills does complain of pain with movement. Patient states she has not been able to bathe adequately over the last month due to her size and due to recent toe amputations. History of recurrent abscesses Home Medications: Home Medications Medication Instructions Recorded Confirmed Last Taken Albuterol Sulfate [Ventolin HFA] 2 puff IH Q4H PRN 01/29/14 01/11/17 02/01/15 Levothyroxine [Synthroid] 200 mcg PO QAM 01/29/14 01/11/17 02/01/15 glipiZIDE [glipiZIDE XL] 10 mg PO BID 01/29/14 01/11/17 02/01/15 Fluticasone/Salmeterol [Advair 1 each IH PRN PRN 01/26/15 01/11/17 02/02/15 10: 00 Diskus 250-50 mcg] Insulin Glargine [Lantus VIAL] 60 unit SUB-Q QHS 01/26/15 01/11/17 02/01/15 Losartan [Cozaar] 50 mg PO QDAY 01/11/17 01/11/17 Unknown Torsemide [Demadex] 10 mg PO QDAY 01/11/17 01/11/17 Unknown Previous Rx's Medication Instructions Recorded Last Taken Type HYDROcodone/APAP 5-325 [[place] 2 each PO Q8H PRN #20 tablet 09/19/16 Unknown Rx 5-325 mg TAB] Clindamycin [Clindamycin CAP] 300 mg PO Q8H #28 cap 01/11/17 Unknown Rx HYDROcodone/APAP 5-325 [[place] 1 each PO Q6HR PRN #12 tablet 01/11/17 Unknown Rx 5/325] Allergies/Adverse Reactions: Allergies Allergy/AdvReac Type Severity Reaction Status Date / Time latex Allergy Unknown Verified 01/26/15 16:14 shellfish derived Allergy Anaphylaxis Verified 01/26/15 16:14 strawberry Allergy Anaphylaxis Verified 01/26/15 16:14 tomato Allergy Anaphylaxis Verified 01/26/15 16:14 nuts Allergy Anaphylaxis Uncoded 01/26/15 16:14 ED Review of Systems ROS: Stated complaint: BOIL UNDER LEFT ARM Other details as noted in HPI Constitutional: denies: chills, fever Eyes: denies: eye pain, eye discharge, vision change ENT: denies: ear pain, throat pain Respiratory: denies: cough, shortness of breath, wheezing Cardiovascular: denies: chest pain, palpitations Endocrine: no symptoms reported Gastrointestinal: denies: abdominal pain, nausea, diarrhea Genitourinary: denies: urgency, dysuria, discharge Musculoskeletal: denies: back pain, joint swelling, arthralgia Skin: denies: rash, lesions Neurological: denies: headache, weakness, paresthesias Psychiatric: denies: anxiety, depression Hematological/Lymphatic: denies: easy bleeding, easy bruising ED Past Medical Hx - Past Medical History Hx Hypertension: Yes Hx Diabetes: Yes Hx Deep Vein Thrombosis: No Hx Arthritis: Yes (RA) Hx Asthma: Yes (mild) Hx COPD: No Additional medical history: thyroid dz. neuropathy - Surgical History Hx Pacemaker: No Hx Internal Defibrillator: No - Social History Smoking Status: Never Smoker Substance Use Type: None - Medications Home Medications: Home Medications Medication Instructions Recorded Confirmed Last Taken Type Albuterol Sulfate [Ventolin HFA] 2 puff IH Q4H PRN 01/29/14 01/11/17 02/01/15 History Levothyroxine [Synthroid] 200 mcg PO QAM 01/29/14 01/11/17 02/01/15 History glipiZIDE [glipiZIDE XL] 10 mg PO BID 01/29/14 01/11/17 02/01/15 History Fluticasone/Salmeterol [Advair 1 each IH PRN PRN 01/26/15 01/11/17 02/02/15 10: 00 History Diskus 250-50 mcg] Insulin Glargine [Lantus VIAL] 60 unit SUB-Q QHS 01/26/15 01/11/17 02/01/15 History HYDROcodone/APAP 5-325 [[place] 2 each PO Q8H PRN #20 tablet 09/19/16 01/11/17 Unknown Rx 5-325 mg TAB] Clindamycin [Clindamycin CAP] 300 mg PO Q8H #28 cap 01/11/17 Unknown Rx HYDROcodone/APAP 5-325 [[place] 1 each PO Q6HR PRN #12 tablet 01/11/17 Unknown Rx 5/325] Losartan [Cozaar] 50 mg PO QDAY 01/11/17 01/11/17 Unknown History Torsemide [Demadex] 10 mg PO QDAY 01/11/17 01/11/17 Unknown History ED Abscess Boil Physical Exam - Exam General: Vital signs noted. No distress. Alert and acting appropriately. Size: 3 cm Exam: Yes Tenderness, Yes Fluctuance, Yes Surrounding Cellulites/Erythema, No Lymphangitis, No Crepitation, No Heart Murmur, No Normal Neurologic Exam, No Normal Circulation Exam: 4 cm abscess with central fluctuance left flank region above ribs. Just below axilla. Palpable fluctuance minimal amount of drainage of abscess head. Some induration surrounding central abscess approximately 3-4 cm in size. I & D Note - I & D Note I & D Note: Abscess incised and drained, moderate amount of fluctuant purulent drainage, significant amount of relief experience palpation after drainage ED Course Vital Signs 01/11/17 14:59 Temperature 98.9 F Pulse Rate 103 H Respiratory 20 Rate Blood Pressure 187/90 O2 Sat by Pulse 97 Oximetry Critical care attestation.: If time is entered above; I have spent that time in minutes in the direct care of this critically ill patient, excluding procedure time. ED Medical Decision Making - Lab Data Result diagrams: 01/11/17 17:19 01/11/17 17:25 - Medical Decision Making A/P: Left flank abscess/cellulitis 1-abcsess incised and drained, wound culture sent 2-as patient was recently hospitalized will give clindamycin to cover for MRSA 3-labs are not significantly abnormal 4-7day course of clindamycin, I advised patient to return if she develops fevers chills worsened pain in her flank or reaccumulation of abscess or increased flank pain ED Disposition Clinical Impression: Abscess of flank Disposition: DISCHARGED TO HOME OR SELFCARE Is pt being admited?: No Does the pt Need Aspirin: No Condition: Stable Instructions: Abscess Incision and Drainage (ED), Abscess (ED) Prescriptions: Clindamycin [Clindamycin CAP] 300 mg PO Q8H #28 cap HYDROcodone/APAP 5-325 [[place] 5/325] 1 each PO Q6HR PRN #12 tablet PRN Reason: Pain Referrals: INDIA ESCALANTE MD [Primary Care Provider] - 3-5 Days Forms: Accompanied Note Time of Disposition: 18:52
[2017-01-11] MEDS ORDERED: CLEOCIN 900 MG/50 mL 900 MG/50 ML BAG IV ONE (17:05)
[2017-01-11 17:49] LABS: Basophils % (Auto) 0.5 % (0.0-1.8); Eosinophils % (Auto) 0.5 % (0.0-4.3); Hematocrit 39.6 % (30.3-42.9); Hemoglobin 12.8 gm/dl (10.1-14.3); Mean Corpuscular HGB Conc 32 % (30-34); Mean Corpuscular Hemoglobin 28 pg (28-32); Mean Corpuscular Volume 86 fl (79-97); Platelet Count 194 K/mm3 (140-440); Red Blood Count 4.59 M/mm3 (3.65-5.03); Red Cell Distribution Width 13.9 % (13.2-15.2); White Blood Count 12.3 K/mm3 (4.5-11.0)
[2017-01-11 17:55] LABS: BUN/Creatinine Ratio 16.66; Calcium 9.3 mg/dL (8.4-10.2); Potassium 3.7 mmol/L (3.6-5.0)
[2017-01-11 18:09] VITALS: BP 163/92
== END 2017-01-11 18:59 | disposition home or self-care (01) ==
LOC: ED 13:45
DX: L02.211 Cutaneous abscess of abdominal wall (principal); I10 Essential (primary) hypertension; E11.9 Type 2 diabetes mellitus without complications; J45.909 Unspecified asthma, uncomplicated
CPT/HCPCS: 36415; 80048; 82140; 85025; 87116; 96365; 99283

== ENCOUNTER 2017-01-12 09:15 | Outpatient (CLI) | payer MEDICARE ==
[2017-01-12] MEDS ORDERED: XYLOCAINE TOPICAL 4% TP ONE ×2 (09:32→10:09)
== END 2017-01-12 09:16 | disposition home or self-care (01) ==
LOC: WOUND 09:15
PROVIDERS: ATTEND Podiatrist
DX: T87.89 Other complications of amputation stump (principal); S98.22 Partial traumatic amputation of two or more lesser toes; E11.621 Type 2 diabetes mellitus with foot ulcer; L97.512 Non-pressure chronic ulcer of other part of right foot with fat layer exposed; E08.8 Diabetes mellitus due to underlying condition with unspecified complications; E11.40 Type 2 diabetes mellitus with diabetic neuropathy, unspecified; J45.909 Unspecified asthma, uncomplicated; E03.9 Hypothyroidism, unspecified; E11.22 Type 2 diabetes mellitus with diabetic chronic kidney disease; N18.9 Chronic kidney disease, unspecified; I12.9 Hypertensive chronic kidney disease with stage 1 through stage 4 chronic kidney disease, or unspecified chronic kidney disease; Z90.710 Acquired absence of both cervix and uterus; Z91.19 Patient's noncompliance with other medical treatment and regimen; Y83.5 Amputation of limb(s) as the cause of abnormal reaction of the patient, or of later complication, without mention of misadventure at the time of the procedure; X58.XXXD Exposure to other specified factors, subsequent encounter

== ENCOUNTER 2017-01-19 09:15 | Outpatient (CLI) | payer MEDICARE ==
[2017-01-19] MEDS ORDERED: XYLOCAINE TOPICAL 2% ONE (09:33)
[2017-01-19] MEDS ORDERED: XYLOCAINE TOPICAL 2% TP ONE (09:45)
== END 2017-01-19 09:16 | disposition home or self-care (01) ==
LOC: WOUND 09:15
PROVIDERS: ATTEND Podiatrist
DX: T87.89 Other complications of amputation stump (principal); E11.621 Type 2 diabetes mellitus with foot ulcer; L97.512 Non-pressure chronic ulcer of other part of right foot with fat layer exposed; E11.40 Type 2 diabetes mellitus with diabetic neuropathy, unspecified; L02.211 Cutaneous abscess of abdominal wall; E11.22 Type 2 diabetes mellitus with diabetic chronic kidney disease; I12.9 Hypertensive chronic kidney disease with stage 1 through stage 4 chronic kidney disease, or unspecified chronic kidney disease; N18.9 Chronic kidney disease, unspecified; E03.9 Hypothyroidism, unspecified; J45.909 Unspecified asthma, uncomplicated; Z90.710 Acquired absence of both cervix and uterus; Y83.5 Amputation of limb(s) as the cause of abnormal reaction of the patient, or of later complication, without mention of misadventure at the time of the procedure; Z87.891 Personal history of nicotine dependence

== ENCOUNTER 2017-02-02 09:21 | Outpatient (CLI) | payer MEDICARE ==
[2017-02-02] MEDS ORDERED: AD OINTMENT TP ONE (10:14)
[2017-02-03] MEDS ORDERED: AD OINTMENT TP SCH (10:00)
== END 2017-02-02 09:22 | disposition home or self-care (01) ==
LOC: WOUND 09:21
PROVIDERS: ATTEND Podiatrist
DX: T87.89 Other complications of amputation stump (principal); E11.621 Type 2 diabetes mellitus with foot ulcer; L97.512 Non-pressure chronic ulcer of other part of right foot with fat layer exposed; E11.40 Type 2 diabetes mellitus with diabetic neuropathy, unspecified; J45.909 Unspecified asthma, uncomplicated; E03.9 Hypothyroidism, unspecified; E11.22 Type 2 diabetes mellitus with diabetic chronic kidney disease; I12.9 Hypertensive chronic kidney disease with stage 1 through stage 4 chronic kidney disease, or unspecified chronic kidney disease; N18.9 Chronic kidney disease, unspecified; Z87.891 Personal history of nicotine dependence; Y83.5 Amputation of limb(s) as the cause of abnormal reaction of the patient, or of later complication, without mention of misadventure at the time of the procedure
CPT/HCPCS: 99214; A6250; G0463

== ENCOUNTER 2019-03-19 15:42 | Emergency (ER) | payer MEDICARE ==
--- NOTE | 2019-03-19 17:04 | Event Note ---
ED Screening Note Date of service: 03/19/19 Time: 17:00 ED Screening Note: 58 y/o comes in right foot pain feels that it is infected. Times 2 weeks. Subjective fevers. Hx/o of toe amputation, DM, HTN, Asthma. BS 145 This initial assessment/diagnostic orders/clinical plan/treatment(s) is/are subject to change based on patients health status, clinical progression and re- assessment by fellow clinical providers in the ED. Further treatment and workup at subsequent clinical providers discretion. Patient/guardian urged not to elope from the ED as their condition may be serious if not clinically assessed and managed. Initial orders include:
--- NOTE | 2019-03-19 17:47 | Emergency Department Report ---
ED Lower Extremity HPI - General Chief Complaint: Extremity Problem,Nontraumatic Stated Complaint: R FOOT INFECTED Time Seen by Provider: 03/19/19 17:44 Source: patient Mode of arrival: Ambulatory Limitations: No Limitations - History of Present Illness Initial Comments: Mrs. Zimmerman is a 58-year-old female with history of diabetes mellitus, severe obesity, rheumatoid arthritis, COPD, asthma, hypertension, hypothyroidism, neuropathy right toe amputation who presents with right foot infection 2 weeks. 3 years ago she had amputation of the fourth and fifth toes on the right foot. PCP Dr. So [facility] She desires medication for pain MD Complaint: other (right foot infection) -: Gradual Injury: Foot: Right Place: home Severity: severe Improves With: nothing Worsens With: weight bearing Context: other (diabetic foot infection) Associated Symptoms: able to partially bear weight - Related Data Home Medications Medication Instructions Recorded Confirmed Last Taken Albuterol Sulfate [Ventolin HFA] 2 puff IH Q4H PRN 01/29/14 01/11/17 02/01/15 Levothyroxine (Nf) [Synthroid (Nf)] 200 mcg PO QAM 01/29/14 01/11/17 02/01/15 glipiZIDE [glipiZIDE XL] 10 mg PO BID 01/29/14 01/11/17 02/01/15 Fluticasone/Salmeterol [Advair 1 each IH PRN PRN 01/26/15 01/11/17 02/02/15 10:00 Diskus 250-50 mcg] Insulin Glargine [Lantus VIAL] 60 unit SUB-Q QHS 01/26/15 01/11/17 02/01/15 Losartan [Cozaar] 50 mg PO QDAY 01/11/17 01/11/17 Unknown Torsemide [Demadex] 10 mg PO QDAY 01/11/17 01/11/17 Unknown Previous Rx's Medication Instructions Recorded Last Taken Type HYDROcodone/APAP 5-325 [Dawson 2 each PO Q8H PRN #20 tablet 09/19/16 Unknown Rx 5-325 mg TAB] Clindamycin [Clindamycin CAP] 300 mg PO Q8H #28 cap 01/11/17 Unknown Rx HYDROcodone/APAP 5-325 [Dawson 1 each PO Q6HR PRN #12 tablet 01/11/17 Unknown Rx 5/325] Amoxicillin/Potassium Clav 1 each PO BID 7 Days #14 tablet 03/19/19 Unknown Rx [Augmentin 875-125 Tablet] HYDROcodone/APAP 5-325 [Dawson 1 each PO Q6HR PRN #10 tablet 03/19/19 Unknown Rx 5/325] Allergies Allergy/AdvReac Type Severity Reaction Status Date / Time latex Allergy Unknown Verified 03/19/19 17:03 shellfish derived Allergy Anaphylaxis Verified 03/19/19 17:03 strawberry Allergy Anaphylaxis Verified 03/19/19 17:03 tomato Allergy Anaphylaxis Verified 03/19/19 17:03 nuts Allergy Anaphylaxis Uncoded 03/19/19 17:03 ED Review of Systems ROS: Stated complaint: R FOOT INFECTED Other details as noted in HPI Comment: All other systems reviewed and negative Constitutional: fever. denies: malaise Respiratory: denies: cough Cardiovascular: denies: chest pain ED Past Medical Hx - Past Medical History Previous Medical History?: Yes Hx Hypertension: Yes Hx Diabetes: Yes Hx Deep Vein Thrombosis: No Hx Arthritis: Yes (RA) Hx Asthma: Yes (mild) Hx COPD: No Additional medical history: thyroid dz. neuropathy - Surgical History Past Surgical History?: Yes Hx Pacemaker: No Hx Internal Defibrillator: No Additional Surgical History: right 4th and fifth toe amputation - Social History Smoking Status: Never Smoker Substance Use Type: None - Medications Home Medications: Home Medications Medication Instructions Recorded Confirmed Last Taken Type Albuterol Sulfate [Ventolin HFA] 2 puff IH Q4H PRN 01/29/14 01/11/17 02/01/15 H istory Levothyroxine (Nf) [Synthroid (Nf)] 200 mcg PO QAM 01/29/14 01/11/17 02/01/15 History glipiZIDE [glipiZIDE XL] 10 mg PO BID 01/29/14 01/11/17 02/01/15 History Fluticasone/Salmeterol [Advair 1 each IH PRN PRN 01/26/15 01/11/17 02/02/15 10:00 History Diskus 250-50 mcg] Insulin Glargine [Lantus VIAL] 60 unit SUB-Q QHS 01/26/15 01/11/17 02/01/15 History HYDROcodone/APAP 5-325 [Dawson 2 each PO Q8H PRN #20 tablet 09/19/16 01/11/17 Unknown Rx 5-325 mg TAB] Clindamycin [Clindamycin CAP] 300 mg PO Q8H #28 cap 01/11/17 Unknown Rx HYDROcodone/APAP 5-325 [Dawson 1 each PO Q6HR PRN #12 tablet 01/11/17 Unknown Rx 5/325] Losartan [Cozaar] 50 mg PO QDAY 01/11/17 01/11/17 Unknown History Torsemide [Demadex] 10 mg PO QDAY 01/11/17 01/11/17 Unknown History Amoxicillin/Potassium Clav 1 each PO BID 7 Days #14 tablet 03/19/19 Unknown Rx [Augmentin 875-125 Tablet] HYDROcodone/APAP 5-325 [Dawson 1 each PO Q6HR PRN #10 tablet 03/19/19 Unknown Rx 5/325] ED Physical Exam - General Limitations: No Limitations General appearance: alert, in no apparent distress - Head Head exam: Present: atraumatic, normocephalic - Eye Eye exam: Present: normal appearance - ENT ENT exam: Present: mucous membranes moist - Neck Neck exam: Present: normal inspection, full ROM - Respiratory Respiratory exam: Present: normal lung sounds bilaterally. Absent: respiratory distress, wheezes, rales - Cardiovascular Cardiovascular Exam: Present: normal rhythm, tachycardia, normal heart sounds. Absent: systolic murmur, diastolic murmur, rubs, gallop - GI/Abdominal GI/Abdominal exam: Present: soft, normal bowel sounds. Absent: distended, tenderness, guarding, rebound - Extremities Exam Extremities exam: Present: other (right foot sole 3 cm ulcer no erythema no purulence no odor) - Neurological Exam Neurological exam: Present: alert, oriented X3 - Psychiatric Psychiatric exam: Present: normal affect, normal mood - Skin Skin exam: Present: warm, dry, intact, normal color. 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 ED Disposition Clinical Impression: Diabetes mellitus type 2, insulin dependent, Diabetic foot ulcer Disposition: TO HOME OR SELFCARE Is pt being admited?: No Does the pt Need Aspirin: No Condition: Stable Instructions: Diabetes Mellitus Type 2 in Adults (ED) Prescriptions: Amoxicillin/Potassium Clav [Augmentin 875-125 Tablet] 1 each PO BID 7 Days #14 tablet HYDROcodone/APAP 5-325 [Dawson 5/325] 1 each PO Q6HR PRN #10 tablet PRN Reason: Pain Referrals: NIK SO MD [Primary Care Provider] - 3-5 Days PATY ZIEGLER DPM [Staff Physician] - 3-5 Days
[2019-03-19 17:49] LABS: Basophils # (Auto) 0.2 K/mm3 (0.0-0.1); Basophils % (Auto) 1.7 % (0.0-1.8); Eosinophils # (Auto) 0.1 K/mm3 (0.0-0.4); Eosinophils % (Auto) 1.5 % (0.0-4.3); Hematocrit 39.8 % (30.3-42.9); Hemoglobin 13.1 gm/dl (10.1-14.3); Lymphocytes # (Auto) 1.8 K/mm3 (1.2-5.4); Lymphocytes % (Auto) 19.4 % (13.4-35.0); Mean Corpuscular HGB Conc 33 % (30-34); Mean Corpuscular Volume 87 fl (79-97); Monocytes # (Auto) 0.9 K/mm3 (0.0-0.8); Monocytes % (Auto) 9.4 % (0.0-7.3); Platelet Count 228 K/mm3 (140-440); Red Blood Count 4.61 M/mm3 (3.65-5.03); Red Cell Distribution Width 15.5 % (13.2-15.2)
[2019-03-19 18:12] LABS: Albumin 3.6 g/dL (3.9-5); Calcium 9.7 mg/dL (8.4-10.2)
--- NOTE | 2019-03-19 18:15 | XRay Report ---
RIGHT FOOT 3 VIEWS INDICATION / CLINICAL INFORMATION: DM foot infection and pain. COMPARISON: None available. FINDINGS: Marked diffuse soft tissue swelling is seen within the right foot, ankle and lower foreleg. There is a focal ulcer seen along the plantar aspect of the foot between the fourth and fifth amputated metata rsal heads. No cortical destruction is seen to suggest radiographic evidence for osteomyelitis. Moder ate degenerative changes are seen within the talonavicular, calcaneocuboid and second through fifth T MT joints. These hepatic changes are seen within the calcaneus at the attachment of the Achilles tend on. No fracture or dislocation is seen within the right foot. IMPRESSION: Probable ulcer along the plantar aspect of lateral forefoot without radiographic evidence for osteomyelitis. MRI would be more sensitive as warranted clinically. Signer Name: Yuval Rubin MD Signed: 03/19/2019 6:10 PM Workstation Name: [id number]
[2019-03-19 18:33] LABS: Bacteria,Urine 1+ /HPF (Negative); Bilirubin,Urine NEG (Negative); Blood,Urine NEG (Negative); Color,Urine Yellow (Yellow); Mucus,Urine FEW /HPF
[2019-03-19] MEDS ORDERED: NORCO 5/325 PO ONE (18:38)
[2019-03-19] MEDS ORDERED: ZOFRAN ODT PO ONE (18:38)
[2019-03-19 18:39] LABS: Protein,Urine >500 mg/dL (Negative)
[2019-03-19] MEDS ORDERED: AUGMENTIN 875 MG PO ONE (18:39)
[2019-03-19 19:15] VITALS: BP 148/80
[2019-03-19 20:01] LABS: Erythrocyte Sedimentation Rate 58 mm/Hr (0-20)
== END 2019-03-19 19:50 | disposition home or self-care (01) ==
LOC: ED 15:42
DX: E11.621 Type 2 diabetes mellitus with foot ulcer (principal); E11.40 Type 2 diabetes mellitus with diabetic neuropathy, unspecified; M06.9 Rheumatoid arthritis, unspecified; J44.9 Chronic obstructive pulmonary disease, unspecified; I10 Essential (primary) hypertension; E03.9 Hypothyroidism, unspecified; E66.01 Morbid (severe) obesity due to excess calories; Z68.43 Body mass index [BMI] 50.0-59.9, adult; Z79.4 Long term (current) use of insulin; Z91.040 Latex allergy status; Z91.013 Allergy to seafood; Z91.018 Allergy to other foods; Z91.010 Allergy to peanuts; Z79.899 Other long term (current) drug therapy; Z89.421 Acquired absence of other right toe(s)
CPT/HCPCS: 36415; 80053; 81001; 82140; 82962; 85025; 85652; 99284; Q0162

== ENCOUNTER 2019-06-26 15:21 | Emergency (ER) | payer MEDICARE ==
--- NOTE | 2019-06-26 16:02 | Event Note ---
ED Screening Note Date of service: 06/26/19 Time: 15:59 ED Screening Note: 59 y/o female comes in for right foot infection and right leg swelling that has gotten worst. Patient was sent to ER from Dr. Don Andrews. This initial assessment/diagnostic orders/clinical plan/treatment(s) is/are subject to change based on patients health status, clinical progression and re- assessment by fellow clinical providers in the ED. Further treatment and workup at subsequent clinical providers discretion. Patient/guardian urged not to elope from the ED as their condition may be serious if not clinically assessed and managed. Initial orders include:
[2019-06-26 16:19] LABS: Basophils # (Auto) 0.1 K/mm3 (0.0-0.1); Eosinophils # (Auto) 0.1 K/mm3 (0.0-0.4); Eosinophils % (Auto) 0.6 % (0.0-4.3); Hematocrit 37.1 % (30.3-42.9); Lymphocytes # (Auto) 1.9 K/mm3 (1.2-5.4); Lymphocytes % (Auto) 17.4 % (13.4-35.0); Mean Corpuscular HGB Conc 32 % (30-34); Mean Corpuscular Volume 87 fl (79-97); Monocytes # (Auto) 1.1 K/mm3 (0.0-0.8); Monocytes % (Auto) 10.4 % (0.0-7.3); Platelet Count 204 K/mm3 (140-440); Red Blood Count 4.28 M/mm3 (3.65-5.03); Red Cell Distribution Width 14.4 % (13.2-15.2)
[2019-06-26 16:38] LABS: Albumin 3.6 g/dL (3.9-5); Calcium 9.2 mg/dL (8.4-10.2)
--- NOTE | 2019-06-26 16:59 | Vascular Lab Report ---
DUPLEX DOPPLER RIGHT LOWER EXTREMITY VEINS INDICATION: right leg swelling FINDINGS: There is occlusive DVT in the right posterior tibial and right peroneal veins. There is no other thro mbus within the deep veins of the right lower extremity from the common femoral to the calf veins. Th ere is normal compression and augmentation on spectral analysis. IMPRESSION: Occlusive DVT in the right posterior tibial and peroneal veins. Signer Name: Hood Galindo MD Signed: 06/26/2019 4:54 PM Workstation Name: [id number]
[2019-06-26] MEDS ORDERED: MORPHINE 4 MG/1 ML INJ IV ONE (17:28)
[2019-06-26 18:00] LABS: INR 1.31 (0.87-1.13)
[2019-06-26 18:16] LABS: Partial Thromboplastin Time 26.8 Sec. (24.2-36.6)
--- NOTE | 2019-06-26 18:23 | Emergency Department Report ---
<FAIZA OLMOS - Last Filed: 06/26/19 18:55> ED Extremity Problem HPI - General Chief complaint: Extremity Problem,Nontraumatic Stated complaint: RT LEG PAIN Time Seen by Provider: 06/26/19 15:58 Source: patient Mode of arrival: Wheelchair Limitations: No Limitations - History of Present Illness Initial comments: 59-year-old -[place] female patient with history of diabetes, hypertension, COPD, renal failure, and morbid obesity presents from her network specialist's office, Dr. Don Andrews, for right lower leg swelling and pain 3 days. Patient is following with Dr. Andrews for a chronic right foot infection and is currently on Bactrim and Augmentin. She denies history of DVT/PE or recent long travel. She admits to mild increased shortness of breath, especially with ambulation. He should also states feeling hot and cold, but is unsure of fever. -: Sudden Location: right -: Yes associated dyspnea Severity scale (0 -10): 10 Quality: aching Consistency: constant Improves with: nothing Worsens with: palpation Associated Symptoms: shortness of breath. denies: chest pain - Related Data Home Medications Medication Instructions Recorded Confirmed Last Taken Albuterol Sulfate [Ventolin HFA] 2 puff IH Q4H PRN 01/29/14 01/11/17 02/01/15 Levothyroxine (Nf) [Synthroid (Nf)] 200 mcg PO QAM 01/29/14 01/11/17 02/01/15 glipiZIDE [glipiZIDE XL] 10 mg PO BID 01/29/14 01/11/17 02/01/15 Fluticasone/Salmeterol [Advair 1 each IH PRN PRN 01/26/15 01/11/17 02/02/15 10:00 Diskus 250-50 mcg] Insulin Glargine [Lantus VIAL] 60 unit SUB-Q QHS 01/26/15 01/11/17 02/01/15 Losartan [Cozaar] 50 mg PO QDAY 01/11/17 01/11/17 Unknown Torsemide [Demadex] 10 mg PO QDAY 01/11/17 01/11/17 Unknown Previous Rx's Medication Instructions Recorded Last Taken Type HYDROcodone/APAP 5-325 [Wilcox 2 each PO Q8H PRN #20 tablet 09/19/16 Unknown Rx 5-325 mg TAB] Clindamycin [Clindamycin CAP] 300 mg PO Q8H #28 cap 01/11/17 Unknown Rx HYDROcodone/APAP 5-325 [Wilcox 1 each PO Q6HR PRN #12 tablet 01/11/17 Unknown Rx 5/325] Amoxicillin/Potassium Clav 1 each PO BID 7 Days #14 tablet 03/19/19 Unknown Rx [Augmentin 875-125 Tablet] HYDROcodone/APAP 5-325 [Wilcox 1 each PO Q6HR PRN #10 tablet 03/19/19 Unknown Rx 5/325] Apixaban [Eliquis starter pack] 5 mg PO DAILY #1 tab.ds.pk 06/26/19 Unknown Rx Allergies Allergy/AdvReac Type Severity Reaction Status Date / Time latex Allergy Unknown Verified 03/19/19 17:03 shellfish derived Allergy Anaphylaxis Verified 03/19/19 17:03 strawberry Allergy Anaphylaxis Verified 03/19/19 17:03 tomato Allergy Anaphylaxis Verified 03/19/19 17:03 nuts Allergy Anaphylaxis Uncoded 03/19/19 17:03 ED Review of Systems Comment: All other systems reviewed and negative Respiratory: SOB with exertion Gastrointestinal: denies: abdominal pain, nausea, vomiting Musculoskeletal: joint swelling Skin: change in color (redness in right lower leg) Neurological: denies: headache, numbness ED Past Medical Hx - Past Medical History Previous Medical History?: Yes Hx Hypertension: Yes Hx Diabetes: Yes Hx Deep Vein Thrombosis: No Hx Arthritis: Yes (RA) Hx Asthma: Yes (mild) Hx COPD: No Additional medical history: thyroid dz. neuropathy - Surgical History Past Surgical History?: Yes Hx Pacemaker: No Hx Internal Defibrillator: No Additional Surgical History: right 4th and fifth toe amputation - Social History Smoking Status: Never Smoker Substance Use Type: None - Medications Home Medications: Home Medications Medication Instructions Recorded Confirmed Last Taken Type Albuterol Sulfate [Ventolin HFA] 2 puff IH Q4H PRN 01/29/14 01/11/17 02/01/15 History Levothyroxine (Nf) [Synthroid (Nf)] 200 mcg PO QAM 01/29/14 01/11/17 02/01/15 History glipiZIDE [glipiZIDE XL] 10 mg PO BID 01/29/14 01/11/17 02/01/15 History Fluticasone/Salmeterol [Advair 1 each IH PRN PRN 01/26/15 01/11/17 02/02/15 10:00 History Diskus 250-50 mcg] Insulin Glargine [Lantus VIAL] 60 unit SUB-Q QHS 01/26/15 01/11/17 02/01/15 History HYDROcodone/APAP 5-325 [Wilcox 2 each PO Q8H PRN #20 tablet 09/19/16 01/11/17 Unknown Rx 5-325 mg TAB] Clindamycin [Clindamycin CAP] 300 mg PO Q8H #28 cap 01/11/17 Unknown Rx HYDROcodone/APAP 5-325 [Wilcox 1 each PO Q6HR PRN #12 tablet 01/11/17 Unknown Rx 5/325] Losartan [Cozaar] 50 mg PO QDAY 01/11/17 01/11/17 Unknown History Torsemide [Demadex] 10 mg PO QDAY 01/11/17 01/11/17 Unknown History Amoxicillin/Potassium Clav 1 each PO BID 7 Days #14 tablet 03/19/19 Unknown Rx [Augmentin 875-125 Tablet] HYDROcodone/APAP 5-325 [Wilcox 1 each PO Q6HR PRN #10 tablet 03/19/19 Unknown Rx 5/325] Apixaban [Eliquis starter pack] 5 mg PO DAILY #1 tab.ds.pk 06/26/19 Unknown Rx ED Physical Exam - General Limitations: No Limitations General appearance: alert, in no apparent distress - Head Head exam: Present: atraumatic, normocephalic - Eye Eye exam: Present: normal appearance - Respiratory Respiratory exam: Present: normal lung sounds bilaterally. Absent: respiratory distress, wheezes, rales - Cardiovascular Cardiovascular Exam: Present: regular rate, normal rhythm, normal heart sounds. Absent: tachycardia - Extremities Exam Extremities exam: Present: tenderness (right lower leg erythemic and tender with significant swelling), calf tenderness - Neurological Exam Neurological exam: Present: alert, oriented X3 - Psychiatric Psychiatric exam: Present: normal affect, normal mood - Skin Skin exam: Present: warm, dry, intact, normal color ED Medical Decision Making - Lab Data Result diagrams: 06/26/19 16:06 06/26/19 16:06 - Medical Decision Making Pt here for right lower leg swelling and pain x 3 days. US + for 2 DVTs in right lower leg. CTA chest pending. Lovenox ordered. Pt handed off to TEZ Lau. ED Disposition Clinical Impression: Right leg DVT Qualifiers: Affected thrombotic vein of extremity: tibial Chronicity: acute Qualified Code(s): I82.441 - Acute embolism and thrombosis of right tibial vein Disposition: - TO HOME OR SELFCARE Condition: Stable Instructions: Deep Venous Thrombosis (ED) Additional Instructions: Take medication daily. Follow up with your primary care Dr. Carlyle So at [facility] in 3-5 days. Prescriptions: Apixaban [Eliquis starter pack] 5 mg PO DAILY #1 tab.ds.pk Referrals: FORTINO HUERTA MD [Staff Physician] - 3-5 Days [facility] [Provider Group] - 3-5 Days [facility] [Outside] - 3-5 Days <EMILI DUNN - Last Filed: 06/27/19 03:23> ED Review of Systems ROS: Stated complaint: RT LEG PAIN Other details as noted in HPI ED Course Vital Signs 06/26/19 06/26/19 15:59 20:57 Temperature 98.4 F 98.7 F Pulse Rate 96 H 78 Respiratory 18 18 Rate Blood Pressure 140/80 Blood Pressure 141/93 [Left] O2 Sat by Pulse 98 100 Oximetry - Reevaluation(s) Reevaluation #1: 06/26/19 19:00 Patient received from EVANGELINA Olmos pending CTA. 06/26/19 19:04 ED Medical Decision Making - Lab Data Result diagrams: 06/26/19 16:06 06/26/19 16:06 Lab Results 06/26/19 06/26/19 06/26/19 Range/Units 16:06 16:06 17:35 WBC 11.0 (4.5-11.0) K/mm3 RBC 4.28 (3.65-5.03) M/mm3 Hgb 12.0 (10.1-14.3) gm/dl Hct 37.1 (30.3-42.9) % MCV 87 (79-97) fl MCH 28 (28-32) pg MCHC 32 (30-34) % RDW 14.4 (13.2-15.2) % Plt Count 204 (140-440) K/mm3 Lymph % (Auto) 17.4 (13.4-35.0) % Douglas % (Auto) 10.4 H (0.0-7.3) % Eos % (Auto) 0.6 (0.0-4.3) % Baso % (Auto) 1.0 (0.0-1.8) % Lymph # 1.9 (1.2-5.4) K/mm3 Douglas # 1.1 H (0.0-0.8) K/mm3 Eos # 0.1 (0.0-0.4) K/mm3 Baso # 0.1 (0.0-0.1) K/mm3 Seg Neutrophils % 70.6 H (40.0-70.0) % Seg Neutrophils # 7.8 H (1.8-7.7) K/mm3 PT 16.0 H (12.2-14.9) Sec. INR 1.31 H (0.87-1.13) APTT 26.8 (24.2-36.6) Sec. Sodium 138 (137-145) mmol/L Potassium 3.7 (3.6-5.0) mmol/L Chloride 98.5 (98-107) mmol/L Carbon Dioxide 30 (22-30) mmol/L Anion Gap 13 mmol/L BUN 15 (7-17) mg/dL Creatinine 1.3 H (0.7-1.2) mg/dL Estimated GFR 51 ml/min BUN/Creatinine Ratio 12 % Glucose 206 H (65-100) mg/dL Calcium 9.2 (8.4-10.2) mg/dL Total Bilirubin 0.70 (0.1-1.2) mg/dL AST 12 (5-40) units/L ALT 14 (7-56) units/L Alkaline Phosphatase 45 (35-129) units/L Total Protein 8.0 (6.3-8.2) g/dL Albumin 3.6 L (3.9-5) g/dL Albumin/Globulin Ratio 0.8 % - Radiology Data Radiology results: report reviewed CTA CHEST WITH IV CONTRAST INDICATION: Acute onset chest pain with dyspnea. Positive DVT TECHNIQUE: Axial CT images were obtained through the chest after injection of 100 mL IV contrast. 3 plane MIP reconstructions were produced. All CT scans at this location are performed using CT dose reduction for ALARA by means of automated exposure control. COMPARISON: None available. FINDINGS: PULMONARY ARTERIES: No pulmonary emboli. AORTA AND ARTERIES: No acute abnormality. MEDIASTINUM: No mass, lymphadenopathy or other significant abnormality. The heart is normal in size without a pericardial effusion. The trachea and main bronchi are patent and normal in caliber. LUNGS: No suspicious consolidation, nodule or mass. No pneumothorax or pleural effusion. ADDITIONAL FINDINGS: None. UPPER ABDOMEN: No acute findings. BONES: No significant osseous abnormality. IMPRESSION: 1. No CT evidence for pulmonary embolism. 2. No acute findings. - Medical Decision Making CT no evidence for pulmonary embolism. No acute findings. Start eliquis starter pack for DVTs x 2 to RLE. Given lovenox prior discharge. Patient instructed to follow up with PCP in 2-5 days. Discharged home stable. Critical care attestation.: If time is entered above; I have spent that time in minutes in the direct care of this critically ill patient, excluding procedure time. ED Disposition Is pt being admited?: No Time of Disposition: 20:48
--- NOTE | 2019-06-26 20:18 | Cat Scan Report ---
CTA CHEST WITH IV CONTRAST INDICATION: Acute onset chest pain with dyspnea. Positive DVT TECHNIQUE: Axial CT images were obtained through the chest after injection of 100 mL IV contrast. 3 plane MIP re constructions were produced. All CT scans at this location are performed using CT dose reduction for ALARA by means of automated exposure control. COMPARISON: None available. FINDINGS: PULMONARY ARTERIES: No pulmonary emboli. AORTA AND ARTERIES: No acute abnormality. MEDIASTINUM: No mass, lymphadenopathy or other significant abnormality. The heart is normal in size w ithout a pericardial effusion. The trachea and main bronchi are patent and normal in caliber. LUNGS: No suspicious consolidation, nodule or mass. No pneumothorax or pleural effusion. ADDITIONAL FINDINGS: None. UPPER ABDOMEN: No acute findings. BONES: No significant osseous abnormality. IMPRESSION: 1. No CT evidence for pulmonary embolism. 2. No acute findings. Signer Name: New Jenkins MD Signed: 06/26/2019 8:13 PM Workstation Name: [id number]
[2019-06-26 20:58] VITALS: BP 141/93
[2019-06-26] MEDS ORDERED: ENOXAPARIN 120 MG/0.8 ML INJ SUB-Q ONE (20:58)
[2019-06-26] MEDS ORDERED: ENOXAPARIN 60 MG/0.6 ML INJ SUB-Q ONE (20:58)
[2019-06-26] MEDS ORDERED: ENOXAPARIN 120 MG/0.8 ML INJ SUB-Q SCH (22:00)
[2019-06-26] MEDS ORDERED: ENOXAPARIN 100 MG/1 ML INJ SUB-Q SCH (22:00)
[2019-06-26] MEDS ORDERED: ENOXAPARIN 60 MG/0.6 ML INJ SUB-Q SCH (22:00)
== END 2019-06-26 22:05 | disposition home or self-care (01) ==
LOC: ED 15:21
DX: I82.4Z1 Acute embolism and thrombosis of unspecified deep veins of right distal lower extremity (principal); R06.02 Shortness of breath; I10 Essential (primary) hypertension; E11.9 Type 2 diabetes mellitus without complications; M06.9 Rheumatoid arthritis, unspecified; J45.909 Unspecified asthma, uncomplicated; Z91.040 Latex allergy status; Z91.018 Allergy to other foods; Z79.899 Other long term (current) drug therapy
CPT/HCPCS: 36415; 71275; 80053; 85025; 85610; 85730; 93971; 96372; 96374; 99284; J1650; J2270; Q9967

== ENCOUNTER 2021-06-07 18:50 | Inpatient (IN) | payer MEDICARE ==
[2021-06-07] MEDS ORDERED: SODIUM CHLORIDE 0.9% 1000 ML 1,000 ML IV ONE (18:54)
[2021-06-07] MEDS ORDERED: IPRATROPIUM/ALBUTEROL SULFATE 3 ML AMPUL.NEB IH ONE (18:54)
[2021-06-07] MEDS ORDERED: dexAMETHasone 20 MG/5 ML VIAL IV ONE (18:54)
--- NOTE | 2021-06-07 19:02 | Emergency Department Report ---
ED Shortness of Breath HPI - General Stated Complaint: SOB Time Seen by Provider: 06/07/21 18:53 - History of Present Illness Initial Comments: Patient presents managed with shortness of breath. She has been having trouble breathing for several days now. She had been around family that had been sick with coronavirus symptoms. Patient does not have a history of coronavirus. She actually states that she been vaccinated. She has had ongoing trouble breathing. There has been no vomiting or diarrhea. She states that she just cannot catch her breath. She has had subjective fevers and chills associate with a cough. Cough has been producing yellowish phlegm. There has been no pain or swelling out of the legs. - Related Data Home Medications Medication Instructions Recorded Confirmed Last Taken Albuterol Sulfate [Ventolin HFA] 2 puff IH Q4H PRN 01/29/14 09/13/19 02/01/15 Levothyroxine (Nf) [Synthroid (Nf)] 275 mcg PO QAM 01/29/14 09/13/19 02/01/15 Fluticasone/Salmeterol [Advair 1 each IH PRN PRN 01/26/15 09/13/19 02/02/15 10:00 Diskus 250-50 mcg] Apixaban [Eliquis starter pack] 5 mg PO BID 09/13/19 09/13/19 Unknown Insulin Aspart Prot/Insuln Asp 45 unit SUB-Q QAM 09/13/19 09/13/19 Unknown [Novolog Mix 70-30 Flexpen] Insulin Glargine,Hum.rec.anlog 25 unit SQ HS 09/13/19 09/13/19 Unknown [Basaglar Kwikpen U-100] Lovastatin [Altoprev] 20 mg PO DAILY 09/13/19 09/13/19 Unknown Previous Rx's Medication Instructions Recorded Last Taken Type Docusate Sodium [Colace CAP] 100 mg PO BID PRN #30 capsule 09/17/19 Unknown Rx Loratadine/Pseudoephedrine 1 each PO Q24HR #10 tablet 09/17/19 Unknown Rx [Claritin-D 24HR] Ondansetron [Zofran Odt] 4 mg PO Q8HR #20 tab.rapdis 09/17/19 Unknown Rx carvediloL [Coreg] 3.125 mg PO BID #60 tablet 09/17/19 Unknown Rx hydrALAZINE [Apresoline TAB] 25 mg PO Q8HR #90 tablet 09/17/19 Unknown Rx Allergies Allergy/AdvReac Type Severity Reaction Status Date / Time latex Allergy Unknown Verified 03/19/19 17:03 shellfish derived Allergy Anaphylaxis Verified 03/19/19 17:03 strawberry Allergy Anaphylaxis Verified 03/19/19 17:03 tomato Allergy Anaphylaxis Verified 03/19/19 17:03 nuts Allergy Anaphylaxis Uncoded 03/19/19 17:03 ED Review of Systems ROS: Stated complaint: SOB Other details as noted in HPI Comment: All other systems reviewed and negative Constitutional: see HPI Eyes: denies: eye pain ENT: denies: throat pain Respiratory: no symptoms reported Cardiovascular: denies: chest pain Endocrine: denies: unexplained weight loss Gastrointestinal: denies: abdominal pain Genitourinary: denies: dysuria Musculoskeletal: denies: back pain Skin: denies: rash Neurological: denies: headache Hematological/Lymphatic: denies: easy bruising ED Past Medical Hx - Past Medical History Hx Hypertension: Yes Hx Diabetes: Yes Hx Deep Vein Thrombosis: No Hx Arthritis: Yes (RA) Hx Asthma: Yes (mild) Hx COPD: No Additional medical history: thyroid dz. 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 - Family History Family history: hypertension - Social History Smoking Status: Never Smoker Substance Use Type: None - Medications Home Medications: Home Medications Medication Instructions Recorded Confirmed Last Taken Type Albuterol Sulfate [Ventolin HFA] 2 puff IH Q4H PRN 01/29/14 09/13/19 02/01/15 History Levothyroxine (Nf) [Synthroid (Nf)] 275 mcg PO QAM 01/29/14 09/13/19 02/01/15 History Fluticasone/Salmeterol [Advair 1 each IH PRN PRN 01/26/15 09/13/19 02/02/15 10:00 History Diskus 250-50 mcg] Apixaban [Eliquis starter pack] 5 mg PO BID 09/13/19 09/13/19 Unknown History Insulin Aspart Prot/Insuln Asp 45 unit SUB-Q QAM 09/13/19 09/13/19 Unknown History [Novolog Mix 70-30 Flexpen] Insulin Glargine,Hum.rec.anlog 25 unit SQ HS 09/13/19 09/13/19 Unknown History [Basaglar Kwikpen U-100] Lovastatin [Altoprev] 20 mg PO DAILY 09/13/19 09/13/19 Unknown History Docusate Sodium [Colace CAP] 100 mg PO BID PRN #30 capsule 09/17/19 Unknown Rx Loratadine/Pseudoephedrine 1 each PO Q24HR #10 tablet 09/17/19 Unknown Rx [Claritin-D 24HR] Ondansetron [Zofran Odt] 4 mg PO Q8HR #20 tab.rapdis 09/17/19 Unknown Rx carvediloL [Coreg] 3.125 mg PO BID #60 tablet 09/17/19 Unknown Rx hydrALAZINE [Apresoline TAB] 25 mg PO Q8HR #90 tablet 09/17/19 Unknown Rx ED Physical Exam - General Limitations: Physical Limitation ( Respiratory distress), Other ( Pulse ox was noted on BiPAP and normal. On room air, she was hypoxic.) General appearance: alert, in distress, obese - Head Head exam: Present: atraumatic, normocephalic, normal inspection - Eye Eye exam: Present: normal appearance, EOMI. Absent: scleral icterus - ENT ENT exam: Present: normal exam, normal orophraynx - Neck Neck exam: Present: normal inspection. Absent: meningismus - Respiratory Respiratory exam: Present: respiratory distress ( moderate) - Cardiovascular Cardiovascular Exam: Present: normal rhythm, tachycardia - GI/Abdominal GI/Abdominal exam: Present: soft. Absent: tenderness - Extremities Exam Extremities exam: Present: normal capillary refill. Absent: pedal edema - Back Exam Back exam: Absent: CVA tenderness (R), CVA tenderness (L) - Neurological Exam Neurological exam: Present: alert, oriented X3. Absent: motor sensory deficit - Psychiatric Psychiatric exam: Present: normal affect, normal mood - Skin Skin exam: Present: warm, dry ED Course Vital Signs 06/07/21 06/07/21 06/07/21 19:12 19:22 19:57 Temperature 98 F Pulse Rate 82 Respiratory 16 32 H Rate Blood Pressure Blood Pressure 144/82 [Left] O2 Sat by Pulse 97 97 97 Oximetry 06/07/21 20:01 Temperature Pulse Rate Respiratory Rate Blood Pressure 108/84 Blood Pressure [Left] O2 Sat by Pulse 91 Oximetry - Reevaluation(s) Reevaluation #1: 06/07/21 18:40 EMS was met. Reevaluation #2: 06/07/21 20:38 labs noted. ED Medical Decision Making - Lab Data Result diagrams: 06/07/21 19:11 06/07/21 19:11 - Radiology Data Radiology results: report reviewed - Medical Decision Making patient presents with respiratory stress. Patient was hypoxic. Evidence poi nts to having a coronavirus type infection. This despite the fact that she reported was vaccinated. She does have evidence of acute kidney injury. She is dyspneic. She has a multilobar pneumonia consistent with Covid. She is hypoxic. She will be admitted to the hospitalist service for ongoing treatment and management. She is responding to BiPAP. I do not think she will require intubation. Critical Care Time: Yes Critical care attestation.: If time is entered above; I have spent that time in minutes in the direct care of this critically ill patient, excluding procedure time. Critical Care Time: Critical care time of 45 minutes based on respiratory distress and kidney injury. ED Disposition Clinical Impression: Suspected COVID-19 virus infection, TREMAINE (acute kidney injury) Acute respiratory failure Qualifiers: Respiratory failure complication: hypoxia Qualified Code(s): J96.01 - Acute respiratory failure with hypoxia Disposition: ADMITTED INPATIENT Is pt being admited?: Yes Does the pt Need Aspirin: No Condition: Stable Referrals: PRIMARY CARE, [Primary Care Provider] - 3-5 Days
--- NOTE | 2021-06-07 19:18 | XRay Report ---
CHEST 1 VIEW 06/07/2021 6:08 PM INDICATION / CLINICAL INFORMATION: hypoxia. COMPARISON: 09/12/2019 FINDINGS: SUPPORT DEVICES: None. HEART / MEDIASTINUM: No significant abnormality. LUNGS / PLEURA: There are scattered peripheral bilateral, right greater than left, airspace opacities . No pneumothorax. ADDITIONAL FINDINGS: No significant additional findings. IMPRESSION: 1. Multifocal pneumonia. Signer Name: Tuan Wagner DO Signed: 06/07/2021 7:14 PM Workstation Name: [id number]
[2021-06-07 19:31] LABS: Basophils % (Auto) 0.1 % (0.0-1.8); Hematocrit 37.4 % (30.3-42.9); Hemoglobin 12.3 gm/dl (10.1-14.3); Lymphocytes # (Auto) 0.8 K/mm3 (1.2-5.4); Lymphocytes % (Auto) 6.5 % (13.4-35.0); Mean Corpuscular HGB Conc 33 % (30-34); Mean Corpuscular Volume 86 fl (79-97); Monocytes # (Auto) 0.4 K/mm3 (0.0-0.8); Monocytes % (Auto) 3.5 % (0.0-7.3); Platelet Count 216 K/mm3 (140-440); Red Blood Count 4.33 M/mm3 (3.65-5.03); Red Cell Distribution Width 15.2 % (13.2-15.2)
[2021-06-07 20:03] LABS: Albumin 3.1 g/dL (3.9-5); C-Reactive Protein 19.6 mg/dL (0.00-1.30); Calcium 8.9 mg/dL (8.4-10.2)
[2021-06-07 20:14] LABS: Chol/HDL Ratio 4.71 %
[2021-06-07] MEDS ORDERED: NON-FORMULARY EACH (Fluticasone/Salmeterol [Advair Diskus 250-50 Mcg] 1 EACH Disk.W.Dev) IH PRN (21:33)
[2021-06-07] MEDS ORDERED: DOCUSATE SODIUM 100 MG CAP PO PRN (21:33)
[2021-06-07] MEDS ORDERED: ALBUTEROL 8.5 GM MDI INHALATION IH PRN ×2 (21:33→23:00)
--- NOTE | 2021-06-07 21:39 | History and Physical Report ---
History of Present Illness Date of examination: 06/07/21 Date of admission: 06/07/21 20:44 History of present illness: Patient presents managed with shortness of breath. She has been having trouble breathing for several days now. She had been around family that had been sick with coronavirus symptoms. Patient does not have a history of coronavirus. She actually states that she been vaccinated. She has had ongoing trouble breathing. There has been no vomiting or diarrhea. She states that she just cannot catch her breath. She has had subjective fevers and chills associate with a cough. Cough has been producing yellowish phlegm. There has been no pain or swelling out of the legs. - Related Data Home Medications Medication Instructions Recorded Confirmed Last Taken Albuterol Sulfate [Ventolin HFA] 2 puff IH Q4H PRN 01/29/14 09/13/19 02/01/15 Levothyroxine (Nf) [Synthroid (Nf)] 275 mcg PO QAM 01/29/14 09/13/19 02/01/15 Fluticasone/Salmeterol [Advair 1 each IH PRN PRN 01/26/15 09/13/19 02/02/15 10:00 Diskus 250-50 mcg] Apixaban [Eliquis starter pack] 5 mg PO BID 09/13/19 09/13/19 Unknown Insulin Aspart Prot/Insuln Asp 45 unit SUB-Q QAM 09/13/19 09/13/19 Unknown [Novolog Mix 70-30 Flexpen] Insulin Glargine,Hum.rec.anlog 25 unit SQ HS 09/13/19 09/13/19 Unknown [Basaglar Kwikpen U-100] Lovastatin [Altoprev] 20 mg PO DAILY 09/13/19 09/13/19 Unknown Previous Rx's Medication Instructions Recorded Last Taken Type Docusate Sodium [Colace CAP] 100 mg PO BID PRN #30 capsule 09/17/19 Unknown Rx Loratadine/Pseudoephedrine 1 each PO Q24HR #10 tablet 09/17/19 Unknown Rx [Claritin-D 24HR] Ondansetron [Zofran Odt] 4 mg PO Q8HR #20 tab.rapdis 09/17/19 Unknown Rx carvediloL [Coreg] 3.125 mg PO BID #60 tablet 09/17/19 Unknown Rx hydrALAZINE [Apresoline TAB] 25 mg PO Q8HR #90 tablet 09/17/19 Unknown Rx Allergies Allergy/AdvReac Type Severity Reaction Status Date / Time latex Allergy Unknown Verified 03/19/19 17:03 shellfish derived Allergy Anaphylaxis Verified 03/19/19 17:03 strawberry Allergy Anaphylaxis Verified 03/19/19 17:03 tomato Allergy Anaphylaxis Verified 03/19/19 17:03 nuts Allergy Anaphylaxis Uncoded 03/19/19 17:03 - Past Medical History --Hypertension: Yes --Diabetes: Yes --Arthritis: Yes (RA) --Asthma: Yes (mild) --Additional medical history: thyroid dz. neuropathy - Surgical History --Additional Surgical History: right 4th and fifth toe amputation - Family History Family history: hypertension - Social History Smoking Status: Never Smoker Substance Use Type: None - Medications Home Medications: Home Medications Medication Instructions Recorded Confirmed Last Taken Type Albuterol Sulfate [Ventolin HFA] 2 puff IH Q4H PRN 01/29/14 09/13/19 02/01/15 History Levothyroxine (Nf) [Synthroid (Nf)] 275 mcg PO QAM 01/29/14 09/13/19 02/01/15 History Fluticasone/Salmeterol [Advair 1 each IH PRN PRN 01/26/15 09/13/19 02/02/15 10:00 History Diskus 250-50 mcg] Apixaban [Eliquis starter pack] 5 mg PO BID 09/13/19 09/13/19 Unknown History Insulin Aspart Prot/Insuln Asp 45 unit SUB-Q QAM 09/13/19 09/13/19 Unknown Hist ory [Novolog Mix 70-30 Flexpen] Insulin Glargine,Hum.rec.anlog 25 unit SQ HS 09/13/19 09/13/19 Unknown History [Basaglar Kwikpen U-100] Lovastatin [Altoprev] 20 mg PO DAILY 09/13/19 09/13/19 Unknown History Docusate Sodium [Colace CAP] 100 mg PO BID PRN #30 capsule 09/17/19 Unknown Rx Loratadine/Pseudoephedrine 1 each PO Q24HR #10 tablet 09/17/19 Unknown Rx [Claritin-D 24HR] Ondansetron [Zofran Odt] 4 mg PO Q8HR #20 tab.rapdis 09/17/19 Unknown Rx carvediloL [Coreg] 3.125 mg PO BID #60 tablet 09/17/19 Unknown Rx hydrALAZINE [Apresoline TAB] 25 mg PO Q8HR #90 tablet 09/17/19 Unknown Rx Review of Systems ROS: Stated complaint: SOB Other details as noted in HPI Comment: All other systems reviewed and negative Constitutional: see HPI Eyes: denies: eye pain ENT: denies: throat pain Respiratory: no symptoms reported Cardiovascular: denies: chest pain Endocrine: denies: unexplained weight loss Gastrointestinal: denies: abdominal pain Genitourinary: denies: dysuria Musculoskeletal: denies: back pain Skin: denies: rash Neurological: denies: headache Hematological/Lymphatic: denies: easy bruising Medications and Allergies Allergies Allergy/AdvReac Type Severity Reaction Status Date / Time latex Allergy Unknown Verified 03/19/19 17:03 shellfish derived Allergy Anaphylaxis Verified 03/19/19 17:03 strawberry Allergy Anaphylaxis Verified 03/19/19 17:03 tomato Allergy Anaphylaxis Verified 03/19/19 17:03 nuts Allergy Anaphylaxis Uncoded 03/19/19 17:03 Home Medications Medication Instructions Recorded Confirmed Last Taken Type Albuterol Sulfate [Ventolin HFA] 2 puff IH Q4H PRN 01/29/14 09/13/19 02/01/15 History Levothyroxine (Nf) [Synthroid (Nf)] 275 mcg PO QAM 01/29/14 09/13/19 02/01/15 History Fluticasone/Salmeterol [Advair 1 each IH PRN PRN 01/26/15 09/13/19 02/02/15 10:00 History Diskus 250-50 mcg] Apixaban [Eliquis starter pack] 5 mg PO BID 09/13/19 09/13/19 Unknown History Insulin Aspart Prot/Insuln Asp 45 unit SUB-Q QAM 09/13/19 09/13/19 Unknown History [Novolog Mix 70-30 Flexpen] Insulin Glargine,Hum.rec.anlog 25 unit SQ HS 09/13/19 09/13/19 Unknown History [Basaglar Kwikpen U-100] Lovastatin [Altoprev] 20 mg PO DAILY 09/13/19 09/13/19 Unknown History Docusate Sodium [Colace CAP] 100 mg PO BID PRN #30 capsule 09/17/19 Unknown Rx Loratadine/Pseudoephedrine 1 each PO Q24HR #10 tablet 09/17/19 Unknown Rx [Claritin-D 24HR] Ondansetron [Zofran Odt] 4 mg PO Q8HR #20 tab.rapdis 09/17/19 Unknown Rx carvediloL [Coreg] 3.125 mg PO BID #60 tablet 09/17/19 Unknown Rx hydrALAZINE [Apresoline TAB] 25 mg PO Q8HR #90 tablet 09/17/19 Unknown Rx Exam - Constitutional Vitals: Temp Pulse Resp BP Pulse Ox 98 F 82 32 H 108/84 91 06/07/21 19:12 06/07/21 19:12 06/07/21 19:22 06/07/21 20:01 06/07/21 20:01 HEART Score - HEART Score Troponin: Troponin T 0.043 ng/mL (0.00-0.029) H 06/07/21 19:11 Results - Labs CBC & Chem 7: 06/07/21 19:11 06/07/21 19:11 Labs: Laboratory Last Values WBC 11.5 K/mm3 (4.5-11.0) H 06/07/21 19:11 RBC 4.33 M/mm3 (3.65-5.03) 06/07/21 19:11 Hgb 12.3 gm/dl (10.1-14.3) 06/07/21 19:11 Hct 37.4 % (30.3-42.9) 06/07/21 19:11 MCV 86 fl (79-97) 06/07/21 19:11 MCH 28 pg (28-32) 06/07/21 19:11 MCHC 33 % (30-34) 06/07/21 19:11 RDW 15.2 % (13.2-15.2) 06/07/21 19:11 Plt Count 216 K/mm3 (140-440) 06/07/21 19:11 Lymph % (Auto) 6.5 % (13.4-35.0) L 06/07/21 19:11 [place] % (Auto) 3.5 % (0.0-7.3) 06/07/21 19:11 Eos % (Auto) 0.0 % (0.0-4.3) 06/07/21 19:11 Baso % (Auto) 0.1 % (0.0-1.8) 06/07/21 19:11 Lymph # (Auto) 0.8 K/mm3 (1.2-5.4) L 06/07/21 19:11 [place] # (Auto) 0.4 K/mm3 (0.0-0.8) 06/07/21 19:11 Eos # (Auto) 0.0 K/mm3 (0.0-0.4) 06/07/21 19:11 Baso # (Auto) 0.0 K/mm3 (0.0-0.1) 06/07/21 19:11 Seg Neutrophils % 89.9 % (40.0-70.0) H 06/07/21 19:11 Seg Neutrophils # 10.4 K/mm3 (1.8-7.7) H 06/07/21 19:11 D-Dimer 5334.05 ng/mlDDU (0-234) H 06/07/21 19:11 Sodium 141 mmol/L (137-145) 06/07/21 19:11 Potassium 3.8 mmol/L (3.6-5.0) 06/07/21 19:11 Chloride 99.7 mmol/L (98-107) 06/07/21 19:11 Carbon Dioxide 27 mmol/L (22-30) 06/07/21 19:11 Anion Gap 18 mmol/L 06/07/21 19:11 BUN 67 mg/dL (7-17) H 06/07/21 19:11 Creatinine 4.8 mg/dL (0.6-1.2) H 06/07/21 19:11 Estimated GFR 11 ml/min 06/07/21 19:11 BUN/Creatinine Ratio 14 % 06/07/21 19:11 Glucose 244 mg/dL (65-100) H 06/07/21 19:11 Calcium 8.9 mg/dL (8.4-10.2) 06/07/21 19:11 Ferritin 1230.0 ng/mL (10.0-200.0) H 06/07/21 19:11 Total Bilirubin 0.30 mg/dL (0.1-1.2) 06/07/21 19:11 AST 30 units/L (5-40) 06/07/21 19:11 ALT 17 units/L (7-56) 06/07/21 19:11 Alkaline Phosphatase 53 units/L (35-129) 06/07/21 19:11 Lactate Dehydrogenase 796 units/L (91-180) H 06/07/21 19:11 Troponin T 0.043 ng/mL (0.00-0.029) H 06/07/21 19:11 C-Reactive Protein 19.60 mg/dL (0.00-1.30) H 06/07/21 19:11 Total Protein 8.4 g/dL (6.3-8.2) H 06/07/21 19:11 Albumin 3.1 g/dL (3.9-5) L 06/07/21 19:11 Albumin/Globulin Ratio 0.6 % 06/07/21 19:11 Triglycerides 209 mg/dL (2-149) H 06/07/21 19:11 Cholesterol 165 mg/dL (50-199) 06/07/21 19:11 LDL Cholesterol Direct 79 mg/dL (50-130) 06/07/21 19:11 HDL Cholesterol 35 mg/dL (40-59) L 06/07/21 19:11 Cholesterol/HDL Ratio 4.71 % 06/07/21 19:11 - Imaging and Cardiology Chest x-ray: report reviewed (Multifocal pneumonia)
[2021-06-07] MEDS ORDERED: HYDROmorphone 1 MG/1 ML INJ IV PRN ×2 (21:41→22:33)
[2021-06-07] MEDS ORDERED: oxyCODONE /ACETAMINOPHEN 5-325MG TAB PO PRN (21:41)
--- NOTE | 2021-06-07 21:58 | History and Physical Report ---
History of Present Illness Date of examination: 06/07/21 Date of admission: 06/07/21 20:44 Chief complaint: shortness of breath Generalized weakness History of present illness: This is 61-year-old patient seen in the ED at bedside. Patient is on oxygen per nasal cannula. Patient reports shortness of breath that has been ongoing for several days. She had been around family that had been sick with coronavirus symptoms. Patient said she has been vaccinated for COVID-19. She denies vomiting and diarrhea by report generalized weakness and difficulty breathing. She has had subjective fevers and chills associate with a cough. Cough has been producing yellowish phlegm. I reviewed patient medical record, home medication administration and vital signs. Geriatric Social Work Professor and infectious disease have been consulted. Past History Past Medical History: diabetes, hypertension, hyperlipidemia, hypothyroidism Past Surgical History: No surgical history Social history: lives with family Family history: diabetes, hypertension Medications and Allergies Allergies Allergy/AdvReac Type Severity Reaction Status Date / Time latex Allergy Unknown Verified 03/19/19 17:03 shellfish derived Allergy Anaphylaxis Verified 03/19/19 17:03 strawberry Allergy Anaphylaxis Verified 03/19/19 17:03 tomato Allergy Anaphylaxis Verified 03/19/19 17:03 nuts Allergy Anaphylaxis Uncoded 03/19/19 17:03 Home Medications Medication Instructions Recorded Confirmed Last Taken Type Albuterol Sulfate [Ventolin HFA] 2 puff IH Q4H PRN 01/29/14 09/13/19 02/01/15 History Levothyroxine (Nf) [Synthroid (Nf)] 275 mcg PO QAM 01/29/14 09/13/19 02/01/15 History Fluticasone/Salmeterol [Advair 1 each IH PRN PRN 01/26/15 09/13/19 02/02/15 10:00 History Diskus 250-50 mcg] Apixaban [Eliquis starter pack] 5 mg PO BID 09/13/19 09/13/19 Unknown History Insulin Aspart Prot/Insuln Asp 45 unit SUB-Q QAM 09/13/19 09/13/19 Unknown History [Novolog Mix 70-30 Flexpen] Insulin Glargine,Hum.rec.anlog 25 unit SQ HS 09/13/19 09/13/19 Unknown History [Basaglar Kwikpen U-100] Lovastatin [Altoprev] 20 mg PO DAILY 09/13/19 09/13/19 Unknown History Docusate Sodium [Colace CAP] 100 mg PO BID PRN #30 capsule 09/17/19 Unknown Rx Loratadine/Pseudoephedrine 1 each PO Q24HR #10 tablet 09/17/19 Unknown Rx [Claritin-D 24HR] Ondansetron [Zofran Odt] 4 mg PO Q8HR #20 tab.rapdis 09/17/19 Unknown Rx carvediloL [Coreg] 3.125 mg PO BID #60 tablet 09/17/19 Unknown Rx hydrALAZINE [Apresoline TAB] 25 mg PO Q8HR #90 tablet 09/17/19 Unknown Rx Active Meds: Active Medications Acetaminophen (Acetaminophen 325 Mg Tab) 650 mg PO Q4H PRN PRN Reason: Pain MILD(1-3)/Fever >100.5/MARTÍNEZ Albuterol (Albuterol 8.5 Gm Mdi Inhalation) 2 puff IH Q4H PRN PRN Reason: Shortness Of Breath Carvedilol (Carvedilol 3.125 Mg Tab) 3.125 mg PO BID LEONOR Dexamethasone (Dexamethasone 4 Mg/Ml Vial) 8 mg IV Q24H LEONOR Docusate Sodium (Docusate Sodium 100 Mg Cap) 100 mg PO BID PRN PRN Reason: Constipation Famotidine (Famotidine 20 Mg/2 Ml Inj) 20 mg IV BID LEONOR Heparin Sodium (Porcine) (Heparin 5,000 Unit/1 Ml Vial) 5,000 unit SUB-Q Q8HR [facility]ON[facility] Hydralazine HCl (Hydralazine 25 Mg Tab) 25 mg PO Q8HR [facility]ONOR Hydromorphone HCl (Hydromorphone 1 Mg/1 Ml Inj) 0.5 mg IV Q3H PRN PRN Reason: Pain , Severe (7-10) Sodium Chloride (Nacl 0.9% 1000 Ml) 1,000 mls @ 100 mls/hr IV DIRECT [facility]ON[facility] Azithromycin (Zithromax/Ns) 500 mg in 250 mls @ 250 mls/hr IV Q24H [facility]ON[facility] Ceftriaxone Sodium (Rocephin/Ns 2 Gm/100 Ml) 2 gm in 100 mls @ 200 mls/hr IV Q24HR LEONOR; Protocol Loratadine/Pseudoephedrine Sulfate (Loratadine/Pseudoephedrine 10-240 Mg Tab 24hr) 1 each PO Q24HR [facility]ONOR Miscellaneous Medication (Apixaban) 5 mg PO BID LEONOR Miscellaneous Medication (Fluticasone/Salmeterol [Advair Diskus 250-50 Mcg]) 1 each IH PRN PRN PRN Reason: Dyspnea Miscellaneous Medication (Insulin Aspart Prot/Insuln Asp [Novolog Mix 70-30 Flexpen]) 45 unit SUB-Q QAM LEONOR Miscellaneous Medication (Levothyroxine (Nf) [Synthroid (Nf)]) 275 mcg PO QAM LEONOR Miscellaneous Medication (Lovastatin [Altoprev]) 20 mg PO DAILY LEONOR Ondansetron HCl (Ondansetron 4 Mg Odt Tab) 4 mg PO Q8HR LEONOR Ondansetron HCl (Ondansetron 4 Mg/2 Ml Inj) 4 mg IV Q8H PRN PRN Reason: Nausea And Vomiting Oxycodone/Acetaminophen (Oxycodone /Acetaminophen 5-325mg Tab) 1 tab PO Q6H PRN PRN Reason: Pain, Moderate (4-6) Sodium Chloride (Sodium Chloride 0.9% 10 Ml Flush Syringe) 10 ml IV BID LEONOR Sodium Chloride (Sodium Chloride 0.9% 10 Ml Flush Syringe) 10 ml IV PRN PRN PRN Reason: LINE FLUSH Exam - Constitutional Vitals: Temp Pulse Resp BP Pulse Ox 98 F 82 32 H 108/84 91 06/07/21 19:12 06/07/21 19:12 06/07/21 19:22 06/07/21 20:01 06/07/21 20:01 HEART Score - HEART Score Troponin: Troponin T 0.043 ng/mL (0.00-0.029) H 06/07/21 19:11 Results - Labs CBC & Chem 7: 06/07/21 19:11 06/07/21 19:11 Labs: Abnormal lab results 06/07/21 06/07/21 06/07/21 Range/Units 19:11 19:11 19:11 WBC 11.5 H (4.5-11.0) K/mm3 Lymph % (Auto) 6.5 L (13.4-35.0) % Lymph # (Auto) 0.8 L (1.2-5.4) K/mm3 Seg Neutrophils % 89.9 H (40.0-70.0) % Seg Neutrophils # 10.4 H (1.8-7.7) K/mm3 D-Dimer 5334.05 H (0-234) ng/mlDDU BUN 67 H (7-17) mg/dL Creatinine 4.8 H (0.6-1.2) mg/dL Glucose 244 H (65-100) mg/dL Ferritin (10.0-200.0) ng/mL Lactate Dehydrogenase 796 H (91-180) units/L Troponin T 0.043 H (0.00-0.029) ng/mL C-Reactive Protein 19.60 H (0.00-1.30) mg/dL Total Protein 8.4 H (6.3-8.2) g/dL Albumin 3.1 L (3.9-5) g/dL Triglycerides 209 H (2-149) mg/dL HDL Cholesterol 35 L (40-59) mg/dL 06/07/21 Range/Units 19:11 WBC (4.5-11.0) K/mm3 Lymph % (Auto) (13.4-35.0) % Lymph # (Auto) (1.2-5.4) K/mm3 Seg Neutrophils % (40.0-70.0) % Seg Neutrophils # (1.8-7.7) K/mm3 D-Dimer (0-234) ng/mlDDU BUN (7-17) mg/dL Creatinine (0.6-1.2) mg/dL Glucose (65-100) mg/dL Ferritin 1230.0 H (10.0-200.0) ng/mL Lactate Dehydrogenase (91-180) units/L Troponin T (0.00-0.029) ng/mL C-Reactive Protein (0.00-1.30) mg/dL Total Protein (6.3-8.2) g/dL Albumin (3.9-5) g/dL Triglycerides (2-149) mg/dL HDL Cholesterol (40-59) mg/dL Assessment and Plan - Patient Problems (1) Suspected COVID-19 virus infection Current Visit: Yes Status: Acute Plan to address problem: Airborne and contact isolation per COVID-19 protocol Monitor inflammatory markers Consult infectious disease Ascorbic acid, zinc sulfate and vitamin D supplement Continue oxygen supplement, bronchodilator and systemic steroid Encourage the use of incentive spirometer and prone position (2) Acute renal failure (ARF) Current Visit: No Status: Acute Qualifiers: Acute renal failure type: unspecified Qualified Code(s): N17.9 - Acute kidney failure, unspecified Plan to address problem: Monitor kidney function Renal ultrasound Gentle IV hydration Nephrology consult (3) Acute respiratory failure with hypoxia Current Visit: Yes Status: Acute Plan to address problem: Continue oxygen supplement Monitor ABG and consult circulation man (4) Diabetes mellitus type 2, insulin dependent Current Visit: No Status: Chronic Plan to address problem: Monitor blood sugar with sliding scale protocol Resume home antihyperglycemic Check hemoglobin A1c (5) History of DVT (deep vein thrombosis) Current Visit: No Status: Acute Plan to address problem: Resume home Eliquis (6) Elevated troponin Current Visit: No Status: Acute Plan to address problem: Trend troponin Echo cardiogram follow-up with results Consult administrative services coordinator (7) Hypertension Current Visit: No Status: Acute Plan to address problem: Monitor blood pressure Continue home antihypertensive (8) Hypothyroidism Current Visit: No Status: Chronic Plan to address problem: Duration (9) Protein calorie malnutrition Current Visit: Yes Status: Acute Plan to address problem: Encourage oral intake Consults industrial electrician [employer] (10) DVT prophylaxis Current Visit: Yes Status: Acute Plan to address problem: Eliquis
[2021-06-07] MEDS ORDERED: HEPARIN 5,000 UNIT/1 ML VIAL SUB-Q SCH (22:00)
[2021-06-07] MEDS ORDERED: dexAMETHasone 4 MG/ML VIAL IV SCH (22:00)
[2021-06-07] MEDS ORDERED: AZITHROMYCIN/NS 500 MG/250 ML 500 MG/250 ML BAG IV SCH ×3 (22:00→23:00)
[2021-06-07] MEDS ORDERED: cefTRIAXone/NS 2 GM/100 ML 2 GM/100 ML BAG IV SCH (22:00)
[2021-06-07] MEDS ORDERED: ONDANSETRON 4 MG/2 ML INJ IV PRN (22:33)
[2021-06-07] MEDS ORDERED: ACETAMINOPHEN 325 MG TAB PO PRN ×2 (22:33)
[2021-06-08] MEDS ORDERED: AZITHROMYCIN/NS 500 MG/250 ML 500 MG/250 ML BAG IV ONE (01:32)
[2021-06-08] MEDS: ONDANSETRON 4 MG ODT TAB PO SCH ×4 (02:58→22:36)
[2021-06-08] MEDS: SODIUM CHLORIDE 0.9% 1000 ML 1,000 ML IV SCH (03:43)
[2021-06-08 04:29] LABS: Hematocrit 37.6 % (30.3-42.9); Hemoglobin 12.4 gm/dl (10.1-14.3); Mean Corpuscular HGB Conc 33 % (30-34); Mean Corpuscular Volume 87 fl (79-97); Red Blood Count 4.33 M/mm3 (3.65-5.03); Red Cell Distribution Width 15.1 % (13.2-15.2)
[2021-06-08 04:37] LABS: Platelet Count 207 K/mm3 (140-440)
[2021-06-08 04:54] LABS: Albumin 3.4 g/dL (3.9-5); Calcium 8.5 mg/dL (8.4-10.2)
[2021-06-08] MEDS: hydrALAZINE 25 MG TAB PO SCH ×4 (05:44→22:31)
[2021-06-08] MEDS: LEVOTHYROXINE 75 MCG TAB PO SCH (05:44)
[2021-06-08] MEDS: LEVOTHYROXINE 100 MCG TAB PO SCH (05:44)
--- NOTE | 2021-06-08 07:57 | Consultation ---
History of Present Illness - Reason for Consult Consult date: 06/08/21 COVID - History of Present Illness 61-year-old female with history of diabetes mellitus, hypertension, hyperlipidemia, hypothyroidism, admitted on 06/07/2021 secondary to a week history of malaise, chills, fever cough, shortness of breath. Patient has been exposed to family members with COVID-19. Patient was vaccinated for COVID-19 with [employer] vaccine in December 2020. On arrival, temperature 98, HR 82, RR 18, O2 sat 97%, BP 144/82. Initial WBC 11.5. Hemoglobin 12.3. Platelets 216. Creatinine 4.8. D-dimer 5334. CRP 19.6. Glucose 244. A1c 9.5. Chest x-ray with bilateral multifocal airspace disease. Patient is currently on BiPAP. Review of Systems: reviewed ED and H&P notes. Review of system deferred to minimize COVID-19 transmission. Past History Past Medical History: diabetes, hypertension, hyperlipidemia, hypothyroidism Past Surgical History: No surgical history Social history: lives with family Family history: diabetes, hypertension Medications and Allergies Allergies Allergy/AdvReac Type Severity Reaction Status Date / Time latex Allergy Unknown Verified 03/19/19 17:03 shellfish derived Allergy Anaphylaxis Verified 03/19/19 17:03 strawberry Allergy Anaphylaxis Verified 03/19/19 17:03 tomato Allergy Anaphylaxis Verified 03/19/19 17:03 nuts Allergy Anaphylaxis Uncoded 03/19/19 17:03 Home Medications Medication Instructions Recorded Confirmed Last Taken Type Albuterol Sulfate [Ventolin HFA] 2 puff IH Q4H PRN 01/29/14 09/13/19 02/01/15 History Levothyroxine (Nf) [Synthroid (Nf)] 275 mcg PO QAM 01/29/14 09/13/19 02/01/15 History Fluticasone/Salmeterol [Advair 1 each IH PRN PRN 01/26/15 09/13/19 02/02/15 10:00 History Diskus 250-50 mcg] Apixaban [Eliquis starter pack] 5 mg PO BID 09/13/19 09/13/19 Unknown History Insulin Aspart Prot/Insuln Asp 45 unit SUB-Q QAM 09/13/19 09/13/19 Unknown History [Novolog Mix 70-30 Flexpen] Insulin Glargine,Hum.rec.anlog 25 unit SQ HS 09/13/19 09/13/19 Unknown History [Basaglar Kwikpen U-100] Lovastatin [Altoprev] 20 mg PO DAILY 09/13/19 09/13/19 Unknown History Docusate Sodium [Colace CAP] 100 mg PO BID PRN #30 capsule 09/17/19 Unknown Rx Loratadine/Pseudoephedrine 1 each PO Q24HR #10 tablet 09/17/19 Unknown Rx [Claritin-D 24HR] Ondansetron [Zofran Odt] 4 mg PO Q8HR #20 tab.rapdis 09/17/19 Unknown Rx carvediloL [Coreg] 3.125 mg PO BID #60 tablet 09/17/19 Unknown Rx hydrALAZINE [Apresoline TAB] 25 mg PO Q8HR #90 tablet 09/17/19 Unknown Rx Active Meds: Active Medications Acetaminophen (Acetaminophen 325 Mg Tab) 650 mg PO Q4H PRN PRN Reason: Pain MILD(1-3)/Fever >100.5/MARTÍNEZ Albuterol (Albuterol 8.5 Gm Mdi Inhalation) 2 puff IH Q4HRT PRN PRN Reason: Shortness Of Breath Alprazolam (Alprazolam 0.25 Mg Tab) 0.125 mg PO Q8H PRN PRN Reason: Anxiety Apixaban (Apixaban 5 Mg Tab) 5 mg PO BID [facility] Arformoterol Tartrate (Arformoterol 15 Mcg/2 Ml Nebu) 15 mcg IH Q12HRT [facility] Atorvastatin Calcium (Atorvastatin 10 Mg Tab) 10 mg PO DAILY [facility] Budesonide (Budesonide 0.5 Mg/2 Ml Nebu) 0.5 mg IH Q12HRT [facility] Carvedilol (Carvedilol 3.125 Mg Tab) 3.125 mg PO BID [facility] Last Admin: 06/08/21 00:00 Dose: 3.125 mg Documented by: Dexamethasone (Dexamethasone 4 Mg/Ml Vial) 8 mg IV Q24HR [facility]ON[facility] Stop: 06/16/21 10:01 Docusate Sodium (Docusate Sodium 100 Mg Cap) 100 mg PO BID PRN PRN Reason: Constipation Famotidine (Famotidine 20 Mg/2 Ml Inj) 10 mg IV BID [facility] Hydralazine HCl (Hydralazine 25 Mg Tab) 25 mg PO Q8HR [facility] Last Admin: 06/08/21 05:44 Dose: 25 mg Documented by: Hydromorphone HCl (Hydromorphone 1 Mg/1 Ml Inj) 0.5 mg IV Q3H PRN PRN Reason: Pain , Severe (7-10) Hydromorphone HCl (Hydromorphone 1 Mg/1 Ml Inj) 0.25 mg IV Q4H PRN PRN Reason: Pain, Moderate (4-6) Sodium Chloride (Nacl 0.9% 1000 Ml) 1,000 mls @ 100 mls/hr IV DIRECT [facility] Last Admin: 06/08/21 03:43 Dose: 100 mls/hr Documented by: Azithromycin (Zithromax/Ns) 500 mg in 250 mls @ 250 mls/hr IV QHS [facility] Stop: 06/11/21 22:59 Ceftriaxone Sodium (Rocephin/Ns 2 Gm/100 Ml) 2 gm in 100 mls @ 200 mls/hr IV QHS [facility]; Protocol Stop: 06/11/21 22:29 Insulin Human Isoph/Insulin Regular (Insulin Nph/Regular 70/30 Inj) 45 unit S UB-Q QDDIAB [facility] Levothyroxine Sodium (Levothyroxine 75 Mcg Tab) 75 mcg PO QAM@0600 [facility] Last Admin: 06/08/21 05:44 Dose: 75 mcg Documented by: Levothyroxine Sodium (Levothyroxine 100 Mcg Tab) 200 mcg PO DAILY@0600 [facility] Last Admin: 06/08/21 05:44 Dose: 200 mcg Documented by: Loratadine/Pseudoephedrine Sulfate (Loratadine/Pseudoephedrine 10-240 Mg Tab 24hr) 1 each PO Q24HR [facility] Ondansetron HCl (Ondansetron 4 Mg Odt Tab) 4 mg PO Q8HR [facility] Last Admin: 06/08/21 05:44 Dose: 4 mg Documented by: Ondansetron HCl (Ondansetron 4 Mg/2 Ml Inj) 4 mg IV Q8H PRN PRN Reason: Nausea And Vomiting Oxycodone/Acetaminophen (Oxycodone /Acetaminophen 5-325mg Tab) 1 tab PO Q6H PRN PRN Reason: Pain, Moderate (4-6) Pneumococcal Polyvalent Vaccine (Pneumococcal 23 Valent 0.5 Ml Vial) 0.5 ml IM .ONCE ONE Stop: 06/09/21 12:01 Sodium Chloride (Sodium Chloride 0.9% 10 Ml Flush Syringe) 10 ml IV BID [facility] Last Admin: 06/08/21 00:00 Dose: 10 ml Documented by: Sodium Chloride (Sodium Chloride 0.9% 10 Ml Flush Syringe) 10 ml IV PRN PRN PRN Reason: LINE FLUSH Physical Examination - Constitutional Vitals: Vital Signs Temp Pulse Resp BP Pulse Ox 98.2 F 78 18 142/75 94 06/08/21 05:13 06/08/21 05:44 06/08/21 05:13 06/08/21 05:44 06/08/21 05:13 Temperature -Last 24 Hours Temperature 98.2 F Temperature 98.1 F Temperature 98 F Results - Labs CBC & Chem 7: 06/08/21 03:44 06/08/21 03:44 Labs: Abnormal lab results 06/07/21 06/07/21 06/07/21 Range/Units 19:11 19:11 19:11 WBC 11.5 H (4.5-11.0) K/mm3 Lymph % (Auto) 6.5 L (13.4-35.0) % Lymph # (Auto) 0.8 L (1.2-5.4) K/mm3 Seg Neutrophils % 89.9 H (40.0-70.0) % Seg Neutrophils # 10.4 H (1.8-7.7) K/mm3 D-Dimer 5334.05 H (0-234) ng/mlDDU Carbon Dioxide (22-30) mmol/L BUN 67 H (7-17) mg/dL Creatinine 4.8 H (0.6-1.2) mg/dL Glucose 244 H (65-100) mg/dL Hemoglobin A1c (4-6) % Ferritin (10.0-200.0) ng/mL Lactate Dehydrogenase 796 H (91-180) units/L Troponin T 0.043 H (0.00-0.029) ng/mL C-Reactive Protein 19.60 H (0.00-1.30) mg/dL Total Protein 8.4 H (6.3-8.2) g/dL Albumin 3.1 L (3.9-5) g/dL Triglycerides 209 H (2-149) mg/dL HDL Cholesterol 35 L (40-59) mg/dL 06/07/21 06/07/21 06/08/21 Range/Units 19:11 19:11 03:44 WBC 12.9 H (4.5-11.0) K/mm3 Lymph % (Auto) (13.4-35.0) % Lymph # (Auto) (1.2-5.4) K/mm3 Seg Neutrophils % (40.0-70.0) % Seg Neutrophils # (1.8-7.7) K/mm3 D-Dimer (0-234) ng/mlDDU Carbon Dioxide (22-30) mmol/L BUN (7-17) mg/dL Creatinine (0.6-1.2) mg/dL Glucose (65-100) mg/dL Hemoglobin A1c 9.5 H (4-6) % Ferritin 1230.0 H (10.0-200.0) ng/mL Lactate Dehydrogenase (91-180) units/L Troponin T (0.00-0.029) ng/mL C-Reactive Protein (0.00-1.30) mg/dL Total Protein (6.3-8.2) g/dL Albumin (3.9-5) g/dL Triglycerides (2-149) mg/dL HDL Cholesterol (40-59) mg/dL 06/08/21 Range/Units 03:44 WBC (4.5-11.0) K/mm3 Lymph % (Auto) (13.4-35.0) % Lymph # (Auto) (1.2-5.4) K/mm3 Seg Neutrophils % (40.0-70.0) % Seg Neutrophils # (1.8-7.7) K/mm3 D-Dimer (0-234) ng/mlDDU Carbon Dioxide 20 L D (22-30) mmol/L BUN 68 H (7-17) mg/dL Creatinine 4.7 H (0.6-1.2) mg/dL Glucose 218 H (65-100) mg/dL Hemoglobin A1c (4-6) % Ferritin (10.0-200.0) ng/mL Lactate Dehydrogenase (91-180) units/L Troponin T (0.00-0.029) ng/mL C-Reactive Protein (0.00-1.30) mg/dL Total Protein (6.3-8.2) g/dL Albumin 3.4 L (3.9-5) g/dL Triglycerides (2-149) mg/dL HDL Cholesterol (40-59) mg/dL Assessment and Plan Cultures: Blood culture none SARS CoV2 PCR pending Assessment: 61-year-old female with history of diabetes mellitus, hypertension, hyperlipidemia, hypothyroidism, vaccinated for COVID-19 with [place] [facility] 2020, admitted on 06/07/2021 secondary to a week history of malaise, chills, fever cough, shortness of breath: #Severe sepsis : likely due to bilateral pneumonia. #Severe breakthrough COVID pneumonia: CXR with bilateral multifocal pneumonia. Infllammatory markers elevated. D-dimer 5334. CRP 19.6. #Acute hypoxemic respiratory failure: Dropped to 89%. Patient currently on BiPAP. #TREMAINE: from sepsis/COVID #Diabetes mellitus: Uncontrolled. Glucose 244. A1c 9.5. Recommendations: -F/u SARS-CoV-2 PCR -Pulmonary consult -Renal consult -Evaluation for DVT/PE, elevated D-dimer consider full anticoagulation -Continue dexamethasone IV/PO daily for 10 days -No indication for remdesivir due to renal failure -Once SARS-CoV-2 PCR is positive patient may benefit from Tocilizumab BiPAP CRP of 19, please call ID. -Monitor inflammatory markers - ferritin, Ddimer, CRP, LDH -Continue anticoagulation per System Protocol -Prone positioning as possible -Continue ceftriaxone for 5 days and azithromycin for 3 days Guarded prognosis, risk for intubation, close monitoring. All laboratory, cultures and imaging were reviewed. Will follow Ana Snider MD Infectious Diseases [employer] [facility], [place] [facility] M [phone] O [phone]
[2021-06-08] MEDS ORDERED: BUDESONIDE 0.5 MG/2 ML NEBU IH SCH (08:00)
[2021-06-08] MEDS ORDERED: ARFORMOTEROL 15 MCG/2 ML NEBU IH SCH (08:00)
[2021-06-08] MEDS ORDERED: INSULIN NPH/REGULAR 70/30 INJ SUB-Q SCH (08:00)
[2021-06-08 08:47] LABS: Total Cells Counted 100
[2021-06-08 08:48] LABS: Platelet Estimate Consistent w Auto
[2021-06-08] MEDS ORDERED: FAMOTIDINE 20 MG TAB PO SCH (10:00)
[2021-06-08] MEDS ORDERED: [UNRECOGNIZED DRUG - OTHER] SUB-Q SCH (10:00)
[2021-06-08] MEDS ORDERED: INSULIN ASPART SUB-Q SCH (10:00)
[2021-06-08] MEDS ORDERED: INSULIN ASPART PROTAMINE SUB-Q SCH (10:00)
[2021-06-08] MEDS: APIXABAN 5 MG TAB PO SCH ×2 (11:09→22:32)
[2021-06-08] MEDS: carvediloL 3.125 MG TAB PO SCH ×3 (11:09→22:31)
[2021-06-08] MEDS: FAMOTIDINE 20 MG/2 ML INJ IV SCH ×2 (11:10→22:34)
[2021-06-08] MEDS: dexAMETHasone 4 MG/ML VIAL IV SCH (11:10)
--- NOTE | 2021-06-08 12:39 | Progress Note ---
Assessment and Plan Assessment and plan: #Suspected COVID-19 breakthrough infection #COVID-19 pneumonia -Patient admits to being vaccinated with the [employer] vaccine earlier this year; however, several family members have been diagnosed with Covid recently -Pending Covid 19 results; continue airborne and contact isolation per COVID-19 protocol -Inflammatory markers elevated; continue to monitor every 2 to 3 days -Infectious disease consulted; appreciate recs -Continue BiPAP management and wean oxygen as tolerated -Pending morning ABG to determine if ARDS is present -We will initiate steroid (prednisone 40 mg daily) treatment. Patient is not a candidate for remdesivir due to renal failure -Continue ascorbic acid, zinc sulfate, and vitamin D supplementation per COVID- 19 protocol #Acute renal failure versus acute on chronic renal failure -Creatinine 4.8 (baseline unknown) -Nephrology consulted on admission; appreciate recs -Continue to monitor renal function and encouraging increased p.o. intake -Avoiding nephrotoxic medications #Acute hypoxic respiratory failure -Currently on BiPAP therapy and will wean as tolerated -Pending a.m. ABG to determine if ARDS is present -Pulmonology consulted on admission; appreciate recs -Chest x-ray revealing bilateral pneumonia concerning for COVID-19 breakthrough infection #Insulin-dependent type 2 diabetes- uncontrolled -Pending hemoglobin A1c -Started on scheduled NPH with medium sliding scale insulin -We will continue to monitor. Blood sugar goal 140-180 #Elevated troponin -Continue to trend troponins; troponins -Elevated troponins likely secondary to type II etiology -Cardiology consulted on admission; appreciate recs -Pending TTE #Hypertension-controlled -Continue home antihypertensives -We will continue to follow #Hypothyroidism -Continue home medications -We will defer on testing TSH due to current medical condition #Protein calorie malnutrition -Nutrition consulted upon admission -Patient admitted to having decreased p.o. intake for approximately 1 to 2 weeks prior to admission; encouraging p.o. intake #History of DVT -Continue home Eliquis; like Eliquis will also cover for DVT prophylaxis Disposition Plan: Pending further medical management Total Time Spent with Patient (Minutes): 30 History Interval history: The patient continues to endorse shortness of breath; however, the use of BiPAP has slightly improved breathing. Patient also continues to endorse diffuse myalgias and overall fatigue. Hospitalist Physical - Constitutional Vitals: Temp Pulse Resp BP Pulse Ox 97.7 F 87 24 169/93 95 06/08/21 11:05 06/08/21 12:07 06/08/21 11:05 06/08/21 11:05 06/08/21 11:06 General appearance: Present: mild distress, well-nourished, obese - EENT Eyes: Present: PERRL, EOM intact ENT: hearing intact, clear oral mucosa, dentition normal - Neck Neck: Present: supple, normal ROM - Respiratory Respiratory effort: normal Respiratory: bilateral: diminished, rhonchi, negative: rales, wheezing - Cardiovascular Rhythm: regular Heart Sounds: Present: S1 & S2 - Extremities Extremities: no ischemia, pulses intact, pulses symmetrical, No edema, normal temperature, normal color Peripheral Pulses: within normal limits - Abdominal General gastrointestinal: soft, non-tender, non-distended, normal bowel sounds - Integumentary Integumentary: Present: clear, warm, dry - Psychiatric Psychiatric: appropriate mood/affect, intact judgment & insight, memory intact, cooperative - Neurologic Neurologic: CNII-XII intact, moves all extremities - Allied Health Allied health notes reviewed: nursing HEART Score - HEART Score History: Moderately suspicious EKG: Non-specific Age: 45-65 Risk factors: 1-2 risk factors Troponin: Troponin T 0.031 ng/mL (0.00-0.029) H D 06/08/21 03:04 - Critical Actions Critical Actions: 0-3 pts:0.9-1.7%risk of adverse cardiac event.Candidate for discharge Results - Labs CBC & Chem 7: 06/08/21 03:44 06/08/21 03:44 Labs: Laboratory Last Values WBC 12.9 K/mm3 (4.5-11.0) H 06/08/21 03:44 RBC 4.33 M/mm3 (3.65-5.03) 06/08/21 03:44 Hgb 12.4 gm/dl (10.1-14.3) 06/08/21 03:44 Hct 37.6 % (30.3-42.9) 06/08/21 03:44 MCV 87 fl (79-97) 06/08/21 03:44 MCH 29 pg (28-32) 06/08/21 03:44 MCHC 33 % (30-34) 06/08/21 03:44 RDW 15.1 % (13.2-15.2) 06/08/21 03:44 Plt Count 207 K/mm3 (140-440) 06/08/21 03:44 Lymph % (Auto) 6.5 % (13.4-35.0) L 06/07/21 19:11 [place] % (Auto) 3.5 % (0.0-7.3) 06/07/21 19:11 Eos % (Auto) 0.0 % (0.0-4.3) 06/07/21 19:11 Baso % (Auto) 0.1 % (0.0-1.8) 06/07/21 19:11 Lymph # (Auto) 0.8 K/mm3 (1.2-5.4) L 06/07/21 19:11 [place] # (Auto) 0.4 K/mm3 (0.0-0.8) 06/07/21 19:11 Eos # (Auto) 0.0 K/mm3 (0.0-0.4) 06/07/21 19:11 Baso # (Auto) 0.0 K/mm3 (0.0-0.1) 06/07/21 19:11 Add Manual Diff Complete 06/08/21 03:44 Total Counted 100 06/08/21 03:44 Seg Neutrophils % Director Of It Operations 06/08/21 03:44 Seg Neuts % (Manual) 95.0 % (40.0-70.0) H 06/08/21 03:44 Lymphocytes % (Manual) 3.0 % (13.4-35.0) L 06/08/21 03:44 Monocytes % (Manual) 2.0 % (0.0-7.3) 06/08/21 03:44 Nucleated RBC % Not Reportable 06/08/21 03:44 Seg Neutrophils # 10.4 K/mm3 (1.8-7.7) H 06/07/21 19:11 Seg Neutrophils # Man 12.3 K/mm3 (1.8-7.7) H 06/08/21 03:44 Band Neutrophils # 0.0 K/mm3 06/08/21 03:44 Lymphocytes # (Manual) 0.4 K/mm3 (1.2-5.4) L 06/08/21 03:44 Abs React Lymphs (Man) 0.0 K/mm3 06/08/21 03:44 Monocytes # (Manual) 0.3 K/mm3 (0.0-0.8) 06/08/21 03:44 Eosinophils # (Manual) 0.0 K/mm3 (0.0-0.4) 06/08/21 03:44 Basophils # (Manual) 0.0 K/mm3 (0.0-0.1) 06/08/21 03:44 Metamyelocytes # 0.0 K/mm3 06/08/21 03:44 Myelocytes # 0.0 K/mm3 06/08/21 03:44 Promyelocytes # 0.0 K/mm3 06/08/21 03:44 Blast Cells # 0.0 K/mm3 06/08/21 03:44 WBC Morphology Not Reportable 06/08/21 03:44 Hypersegmented Neuts Not Reportable 06/08/21 03:44 Hyposegmented Neuts Not Reportable 06/08/21 03:44 Hypogranular Neuts Not Reportable 06/08/21 03:44 Smudge Cells Not Reportable 06/08/21 03:44 Toxic Granulation Not Reportable 06/08/21 03:44 Toxic Vacuolation Not Reportable 06/08/21 03:44 Dohle Bodies Not Reportable 06/08/21 03:44 Pelger-Huet Anomaly Not Reportable 06/08/21 03:44 Nba Rods Not Reportable 06/08/21 03:44 Platelet Estimate Consistent w auto 06/08/21 03:44 Clumped Platelets Not Reportable 06/08/21 03:44 Plt Clumps, EDTA Not Reportable 06/08/21 03:44 Large Platelets Not Reportable 06/08/21 03:44 Giant Platelets Not Reportable 06/08/21 03:44 Platelet Satelliting Not Reportable 06/08/21 03:44 Plt Morphology Comment Not Reportable 06/08/21 03:44 RBC Morphology Not Reportable 06/08/21 03:44 Dimorphic RBCs Not Reportable 06/08/21 03:44 Polychromasia Not Reportable 06/08/21 03:44 Hypochromasia Not Reportable 06/08/21 03:44 Poikilocytosis Not Reportable 06/08/21 03:44 Anisocytosis Not Reportable 06/08/21 03:44 Microcytosis Not Reportable 06/08/21 03:44 Macrocytosis Not Reportable 06/08/21 03:44 Spherocytes Not Reportable 06/08/21 03:44 Pappenheimer Bodies Not Reportable 06/08/21 03:44 Sickle Cells Not Reportable 06/08/21 03:44 Target Cells Not Reportable 06/08/21 03:44 Tear Drop Cells Not Reportable 06/08/21 03:44 Ovalocytes Not Reportable 06/08/21 03:44 Helmet Cells Not Reportable 06/08/21 03:44 [place] Bodies Not Reportable 06/08/21 03:44 [place] Rings Not Reportable 06/08/21 03:44 Barbie Cells Not Reportable 06/08/21 03:44 Bite Cells Not Reportable 06/08/21 03:44 Crenated Cell Not Reportable 06/08/21 03:44 Elliptocytes Not Reportable 06/08/21 03:44 Acanthocytes (Spur) Not Reportable 06/08/21 03:44 Rouleaux Not Reportable 06/08/21 03:44 Hemoglobin C Crystals Not Reportable 06/08/21 03:44 Schistocytes Not Reportable 06/08/21 03:44 Malaria parasites Not Reportable 06/08/21 03:44 Luis Bodies Not Reportable 06/08/21 03:44 Hem Pathologist Commnt No 06/08/21 03:44 D-Dimer 5334.05 ng/mlDDU (0-234) H 06/07/21 19:11 Sodium 144 mmol/L (137-145) 06/08/21 03:44 Potassium 4.3 mmol/L (3.6-5.0) 06/08/21 03:44 Chloride 99.8 mmol/L (98-107) 06/08/21 03:44 Carbon Dioxide 20 mmol/L (22-30) L D 06/08/21 03:44 Anion Gap 29 mmol/L 06/08/21 03:44 BUN 68 mg/dL (7-17) H 06/08/21 03:44 Creatinine 4.7 mg/dL (0.6-1.2) H 06/08/21 03:44 Estimated GFR 11 ml/min 06/08/21 03:44 BUN/Creatinine Ratio 14 % 06/08/21 03:44 Glucose 218 mg/dL (65-100) H 06/08/21 03:44 POC Glucose 239 mg/dL (70-105) H 06/08/21 11:00 Hemoglobin A1c 9.5 % (4-6) H 06/07/21 19:11 Calcium 8.5 mg/dL (8.4-10.2) 06/08/21 03:44 Ferritin 1230.0 ng/mL (10.0-200.0) H 06/07/21 19:11 Total Bilirubin 0.30 mg/dL (0.1-1.2) 06/08/21 03:44 AST 29 units/L (5-40) 06/08/21 03:44 ALT 19 units/L (7-56) 06/08/21 03:44 Alkaline Phosphatase 58 units/L (35-129) 06/08/21 03:44 Lactate Dehydrogenase 796 units/L (91-180) H 06/07/21 19:11 Troponin T 0.031 ng/mL (0.00-0.029) H D 06/08/21 03:04 C-Reactive Protein 19.60 mg/dL (0.00-1.30) H 06/07/21 19:11 Total Protein 7.9 g/dL (6.3-8.2) 06/08/21 03:44 Albumin 3.4 g/dL (3.9-5) L 06/08/21 03:44 Albumin/Globulin Ratio 0.8 % 06/08/21 03:44 Triglycerides 209 mg/dL (2-149) H 06/07/21 19:11 Cholesterol 165 mg/dL (50-199) 06/07/21 19:11 LDL Cholesterol Direct 79 mg/dL (50-130) 06/07/21 19:11 HDL Cholesterol 35 mg/dL (40-59) L 06/07/21 19:11 Cholesterol/HDL Ratio 4.71 % 06/07/21 19:11 Procalcitonin 0.91 ng/mL (<0.15) 06/07/21 19:11 Blood Type B POSITIVE 06/07/21 22:34 Antibody Screen Negative 06/07/21 22:34 Roland/IV: Voiding Method External Female Catheter Active Medications - Current Medications Current Medications: Generic Name Dose Route Start Last Admin Trade Name Freq PRN Reason Stop Dose Admin Acetaminophen 650 mg 06/07/21 21:41 Acetaminophen 325 Mg Tab PO Q4H PRN Pain MILD(1-3)/Fever >100.5/AMRTÍNEZ Albuterol 2 puff 06/07/21 23:00 Albuterol 8.5 Gm Mdi Inhalation IH Q4HRT PRN Shortness Of Breath Alprazolam 0.125 mg 06/07/21 22:33 Alprazolam 0.25 Mg Tab PO Q8H PRN Anxiety Apixaban 5 mg 06/08/21 10:00 06/08/21 11:09 Apixaban 5 Mg Tab PO 5 mg BID [facility]ONOR Administration Atorvastatin Calcium 10 mg 06/08/21 10:00 06/08/21 11:09 Atorvastatin 10 Mg Tab PO 10 mg DAILY [facility]ON[facility] Administration Carvedilol 3.125 mg 06/07/21 22:00 06/08/21 11:09 Carvedilol 3.125 Mg Tab PO 3.125 mg BID [facility]ON[facility] Administration Dexamethasone 8 mg 06/08/21 10:00 06/08/21 11:10 Dexamethasone 4 Mg/Ml Vial IV 06/16/21 10:01 8 mg Q24HR [facility]ONOR Administration Dextrose 50 ml 06/08/21 12:04 Dextrose 50% In Water (25gm) 50 Ml Syringe IV Q30MIN PRN Hypoglycemia Protocol Docusate Sodium 100 mg 06/07/21 21:33 Docusate Sodium 100 Mg Cap PO BID PRN Constipation Famotidine 10 mg 06/08/21 10:00 06/08/21 11:10 Famotidine 20 Mg/2 Ml Inj IV 10 mg BID [facility]ON[facility] Administration Hydralazine HCl 25 mg 06/07/21 22:00 06/08/21 05:44 Hydralazine 25 Mg Tab PO 25 mg Q8HR [facility] Administration Hydromorphone HCl 0.5 mg 06/07/21 21:41 Hydromorphone 1 Mg/1 Ml Inj IV Q3H PRN Pain , Severe (7-10) Hydromorphone HCl 0.25 mg 06/07/21 22:33 Hydromorphone 1 Mg/1 Ml Inj IV Q4H PRN Pain, Moderate (4-6) Sodium Chloride 1,000 mls @ 100 mls/hr 06/07/21 21:45 06/08/21 03:43 Nacl 0.9% 1000 Ml IV 100 mls/hr DIRECT [facility] Administration Azithromycin 500 mg in 250 mls @ 250 mls/hr 06/08/21 22:00 Zithromax/Ns IV 06/11/21 22:59 QHS [facility] Ceftriaxone Sodium 2 gm in 100 mls @ 200 mls/hr 06/08/21 22:00 Rocephin/Ns 2 Gm/100 [facility]l [facility] 06/11/21 [facility] Insulin Human Isoph/Insulin Regular 45 unit 06/08/21 08:00 06/08/21 08:00 Insulin Nph/Regular 70/30 Inj SUB-Q 45 unit QDDIAB [facility] Administration Insulin Human Regular 0 units 06/08/21 12:15 Insulin Regular, Human 100 Units/1 Ml SUB-Q ACHS [facility] Protocol Levothyroxine Sodium 75 mcg 06/08/21 06:00 06/08/21 05:44 Levothyroxine 75 Mcg Tab PO 75 mcg QAM@0600 [facility] Administration Levothyroxine Sodium 200 mcg 06/08/21 06:00 06/08/21 05:44 Levothyroxine 100 Mcg Tab PO 200 mcg DAILY@0600 [facility] Administration Loratadine/Pseudoephedrine Sulfate 1 each 06/08/21 10:00 Loratadine/Pseudoephedrine 10-240 Mg Tab 24hr PO Q24HR [facility] Ondansetron HCl 4 mg 06/07/21 22:00 06/08/21 05:44 Ondansetron 4 Mg Odt Tab PO 4 mg Q8HR [facility] Administration Ondansetron HCl 4 mg 06/07/21 21:41 Ondansetron 4 Mg/2 Ml Inj IV Q8H PRN Nausea And Vomiting Oxycodone/Acetaminophen 1 tab 06/07/21 21:41 Oxycodone /Acetaminophen 5-325mg Tab PO Q6H PRN Pain, Moderate (4-6) Pneumococcal Polyvalent Vaccine 0.5 ml 06/09/21 12:00 Pneumococcal 23 Valent 0.5 Ml Vial IM 06/09/21 12:01 .ONCE ONE Sodium Chloride 10 ml 06/07/21 22:00 06/08/21 11:11 Sodium Chloride 0.9% 10 Ml Flush Syringe IV 10 ml BID [facility]ON[facility] Administration Sodium Chloride 10 ml 06/07/21 21:41 Sodium Chloride 0.9% 10 Ml Flush Syringe IV PRN PRN LINE FLUSH Nutrition/Malnutrition Assess - Dietary Evaluation Nutrition/Malnutrition Findings: Nutrition Notes Start: 06/08/21 10:56 Freq: Status: Active Protocol: Document 06/08/21 10:56 FALGUNI (Rec: 06/08/21 11:05 [email or web address] [id number]) Nutrition Notes 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 RN screen for chewing difficutly. Per previous visit , pt does not want mech soft diet and has hx of not liking Ensure. Pt on bipap. Unable to speak with pt. Burn Absent Trauma Absent Minimum of two criteria No #1 Nutrition Diagnosis Predicted suboptimal energy intake Etiology ARF As Evidenced by Signs and Symptoms pt on bipap Is patient on ventilator? No Is Patient Ambulatory and/or Out of Bed No REE-([facility]-confined to bed) 2778.984 Kcal/Kg value to use for calculation 12 Approximate Energy Requirements Using 1976 kcal/Kg Calculation Used for Recommendations Kcal/kg Additional Notes Protein: (0.8-1g/kg AdjBW) 94- 117g/day Fluid: 1 ml/kcal Nutrition Intervention Change Diet Order: Add cardiac Add Supplement/Snack (indicate name/kcal Glucerna BID (trial) /protein ) Provides kCal: 440 Provides Protein (gm) 20 Goal #1 Meet at least 75% of protein and energy needs via PO Anticipated Discharge Needs: Cardiac, consistent CHO Follow-Up By: 06/09/21 Additional Comments F/u: assessment and intakes - Attestation Statement I have reviewed and agreed w/ Malnutrition eval & tx plan: Yes
[2021-06-08] MEDS: INSULIN REGULAR, HUMAN 100 UNITS/1 ML SUB-Q SCH ×3 (13:15→22:33)
--- NOTE | 2021-06-08 14:06 | Consultation ---
History of Present Illness - Reason for Consult Consult date: 06/08/21 acute renal failure, chronic renal failure - History of Present Illness This is 61-year-old patient was admitted yesterday for shortness of breath that has been ongoing for several days. Patient said she has been vaccinated for COVID-19. CXR showed multifocal pneumonia and she was tested positive for COVID-19. she was found to have worsening kidney function and renal consult was requested Past History Past Medical History: diabetes, hypertension, hyperlipidemia, hypothyroidism Past Surgical History: No surgical history Social history: lives with family Family history: diabetes, hypertension Medications and Allergies Allergies Allergy/AdvReac Type Severity Reaction Status Date / Time latex Allergy Unknown Verified 03/19/19 17:03 shellfish derived Allergy Anaphylaxis Verified 03/19/19 17:03 strawberry Allergy Anaphylaxis Verified 03/19/19 17:03 tomato Allergy Anaphylaxis Verified 03/19/19 17:03 nuts Allergy Anaphylaxis Uncoded 03/19/19 17:03 Home Medications Medication Instructions Recorded Confirmed Last Taken Type Albuterol Sulfate [Ventolin HFA] 2 puff IH Q4H PRN 01/29/14 09/13/19 02/01/15 History Levothyroxine (Nf) [Synthroid (Nf)] 275 mcg PO QAM 01/29/14 09/13/19 02/01/15 History Fluticasone/Salmeterol [Advair 1 each IH PRN PRN 01/26/15 09/13/19 02/02/15 10:00 History Diskus 250-50 mcg] Apixaban [Eliquis starter pack] 5 mg PO BID 09/13/19 09/13/19 Unknown History Insulin Aspart Prot/Insuln Asp 45 unit SUB-Q QAM 09/13/19 09/13/19 Unknown History [Novolog Mix 70-30 Flexpen] Insulin Glargine,Hum.rec.anlog 25 unit SQ HS 09/13/19 09/13/19 Unknown History [Basaglar Kwikpen U-100] Lovastatin [Altoprev] 20 mg PO DAILY 09/13/19 09/13/19 Unknown History Docusate Sodium [Colace CAP] 100 mg PO BID PRN #30 capsule 09/17/19 Unknown Rx Loratadine/Pseudoephedrine 1 each PO Q24HR #10 tablet 09/17/19 Unknown Rx [Claritin-D 24HR] Ondansetron [Zofran Odt] 4 mg PO Q8HR #20 tab.rapdis 09/17/19 Unknown Rx carvediloL [Coreg] 3.125 mg PO BID #60 tablet 09/17/19 Unknown Rx hydrALAZINE [Apresoline TAB] 25 mg PO Q8HR #90 tablet 09/17/19 Unknown Rx Active Meds: Active Medications Acetaminophen (Acetaminophen 325 Mg Tab) 650 mg PO Q4H PRN PRN Reason: Pain MILD(1-3)/Fever >100.5/MARTÍNEZ Albuterol (Albuterol 8.5 Gm Mdi Inhalation) 2 puff IH Q4HRT PRN PRN Reason: Shortness Of Breath Alprazolam (Alprazolam 0.25 Mg Tab) 0.125 mg PO Q8H PRN PRN Reason: Anxiety Apixaban (Apixaban 5 Mg Tab) 5 mg PO BID [facility] Last Admin: 06/08/21 11:09 Dose: 5 mg Documented by: Atorvastatin Calcium (Atorvastatin 10 Mg Tab) 10 mg PO DAILY [facility] Last Admin: 06/08/21 11:09 Dose: 10 mg Documented by: Carvedilol (Carvedilol 3.125 Mg Tab) 3.125 mg PO BID [facility] Last Admin: 06/08/21 11:09 Dose: 3.125 mg Documented by: Dexamethasone (Dexamethasone 4 Mg/Ml Vial) 8 mg IV Q24HR [facility] Stop: 06/16/21 10:01 Last Admin: 06/08/21 11:10 Dose: 8 mg Documented by: Dextrose (Dextrose 50% In Water (25gm) 50 Ml Syringe) 50 ml IV Q30MIN PRN; Protocol PRN Reason: Hypoglycemia Docusate Sodium (Docusate Sodium 100 Mg Cap) 100 mg PO BID PRN PRN Reason: Constipation Famotidine (Famotidine 20 Mg/2 Ml Inj) 10 mg IV BID [facility] Last Admin: 06/08/21 11:10 Dose: 10 mg Documented by: Hydralazine HCl (Hydralazine 25 Mg Tab) 25 mg PO Q8HR [facility] Last Admin: 06/08/21 05:44 Dose: 25 mg Documented by: Hydromorphone HCl (Hydromorphone 1 Mg/1 Ml Inj) 0.5 mg IV Q3H PRN PRN Reason: Pain , Severe (7-10) Hydromorphone HCl (Hydromorphone 1 Mg/1 Ml Inj) 0.25 mg IV Q4H PRN PRN Reason: Pain, Moderate (4-6) Sodium Chloride (Nacl 0.9% 1000 Ml) 1,000 mls @ 100 mls/hr IV DIRECT [facility] Last Admin: 06/08/21 03:43 Dose: 100 mls/hr Documented by: Azithromycin (Zithromax/Ns) 500 mg in 250 mls @ 250 mls/hr IV QHS [facility] Stop: 06/11/21 22:59 Ceftriaxone Sodium (Rocephin/Ns 2 Gm/100 Ml) 2 gm in 100 mls @ 200 mls/hr IV QHS [facility]; Protocol Stop: 06/11/21 22:29 Insulin Human Isoph/Insulin Regular (Insulin Nph/Regular 70/30 Inj) 45 unit SUB-Q QDDIAB [facility] Last Admin: 06/08/21 08:00 Dose: 45 unit Documented by: Insulin Human Regular (Insulin Regular, Human 100 Units/1 Ml) 0 units SUB-Q ACHS [facility]; Protocol Last Admin: 06/08/21 13:15 Dose: 3 units Documented by: Levothyroxine Sodium (Levothyroxine 75 Mcg Tab) 75 mcg PO QAM@0600 [facility] Last Admin: 06/08/21 05:44 Dose: 75 mcg Documented by: Levothyroxine Sodium (Levothyroxine 100 Mcg Tab) 200 mcg PO DAILY@0600 [facility] Last Admin: 06/08/21 05:44 Dose: 200 mcg Documented by: Loratadine/Pseudoephedrine Sulfate (Loratadine/Pseudoephedrine 10-240 Mg Tab 24hr) 1 each PO Q24HR [facility] Ondansetron HCl (Ondansetron 4 Mg Odt Tab) 4 mg PO Q8HR [facility] Last Admin: 06/08/21 13:31 Dose: 4 mg Documented by: Ondansetron HCl (Ondansetron 4 Mg/2 Ml Inj) 4 mg IV Q8H PRN PRN Reason: Nausea And Vomiting Oxycodone/Acetaminophen (Oxycodone /Acetaminophen 5-325mg Tab) 1 tab PO Q6H PRN PRN Reason: Pain, Moderate (4-6) Pneumococcal Polyvalent Vaccine (Pneumococcal 23 Valent 0.5 Ml Vial) 0.5 ml IM .ONCE ONE Stop: 06/09/21 12:01 Sodium Chloride (Sodium Chloride 0.9% 10 Ml Flush Syringe) 10 ml IV BID [facility] Last Admin: 06/08/21 11:11 Dose: 10 ml Documented by: Sodium Chloride (Sodium Chloride 0.9% 10 Ml Flush Syringe) 10 ml IV PRN PRN PRN Reason: LINE FLUSH Review of Systems All systems: negative (shortness of breath) Exam - Vital Signs Vital signs: Vital Signs Temp Pulse Resp BP Pulse Ox 98 F 82 16 144/82 97 06/07/21 19:12 06/07/21 19:12 06/07/21 19:12 06/07/21 19:12 06/07/21 19:12 Results - Lab Results 06/08/21 03:44 06/08/21 03:44 Most recent lab results Calcium 8.5 mg/dL (8.4-10.2) 06/08/21 03:44 Assessment and Plan #Suspected COVID-19 breakthrough infection #COVID-19 pneumonia #Acute renal failure versus acute on chronic renal failure #Acute hypoxic respiratory failure #Insulin-dependent type 2 diabetes- uncontrolled #Elevated troponin #Hypertension-controlled #Hypothyroidism #Protein calorie malnutrition worsening kidney function secondary to progressing CKD vs. TREMAINE started on NS 100 cc/g will check renal US will check urine lytes renally dose meds strict I&O daily weight no indication for [employer].
--- NOTE | 2021-06-08 14:11 | Consultation ---
History of Present Illness Consult date: 06/08/21 Requesting physician: SAYDA VALLE Consult reason: elevated troponin History of present illness: Patient is a 61 y/o female, who is previously unknown to our practice, with a PMHx of HTN, hypothyroidism, CKD III, H/o DVT, and DM who presents with a complaint of malaise, chills, fever, cough and SOB x 1 week. The patient reports that on 05/28/2021 she went to a with her family and that shortly after her and her family members became sick. She reports that her family members have tested positive for COVID-19. She states that she received the Memo & Memo vaccine in December 2020. She also reports some sharp chest pain that occurs when she coughs, is reproducible with palpation and was relieved with Tylenol. Hospital work up showed WBC 11.5, creatinine 4.8, D-dimer 5334, tropon in0.043, and CXR with bilateral multifocal airspace disease. Cardiology is consulted for elevated troponins. Past History Past Medical History: diabetes, DVT, hypertension, hyperlipidemia, hypothyroidism Past Surgical History: No surgical history Social history: lives with family Family history: diabetes, hypertension Medications and Allergies Allergies Allergy/AdvReac Type Severity Reaction Status Date / Time latex Allergy Unknown Verified 03/19/19 17:03 shellfish derived Allergy Anaphylaxis Verified 03/19/19 17:03 strawberry Allergy Anaphylaxis Verified 03/19/19 17:03 tomato Allergy Anaphylaxis Verified 03/19/19 17:03 nuts Allergy Anaphylaxis Uncoded 03/19/19 17:03 Home Medications Medication Instructions Recorded Confirmed Last Taken Type Albuterol Sulfate [Ventolin HFA] 2 puff IH Q4H PRN 01/29/14 09/13/19 02/01/15 History Levothyroxine (Nf) [Synthroid (Nf)] 275 mcg PO QAM 01/29/14 09/13/19 02/01/15 History Fluticasone/Salmeterol [Advair 1 each IH PRN PRN 01/26/15 09/13/19 02/02/15 10:00 History Diskus 250-50 mcg] Apixaban [Eliquis starter pack] 5 mg PO BID 09/13/19 09/13/19 Unknown History Insulin Aspart Prot/Insuln Asp 45 unit SUB-Q QAM 09/13/19 09/13/19 Unknown History [Novolog Mix 70-30 Flexpen] Insulin Glargine,Hum.rec.anlog 25 unit SQ HS 09/13/19 09/13/19 Unknown History [Basaglar Kwikpen U-100] Lovastatin [Altoprev] 20 mg PO DAILY 09/13/19 09/13/19 Unknown History Docusate Sodium [Colace CAP] 100 mg PO BID PRN #30 capsule 09/17/19 Unknown Rx Loratadine/Pseudoephedrine 1 each PO Q24HR #10 tablet 09/17/19 Unknown Rx [Claritin-D 24HR] Ondansetron [Zofran Odt] 4 mg PO Q8HR #20 tab.rapdis 09/17/19 Unknown Rx carvediloL [Coreg] 3.125 mg PO BID #60 tablet 09/17/19 Unknown Rx hydrALAZINE [Apresoline TAB] 25 mg PO Q8HR #90 tablet 09/17/19 Unknown Rx Active Meds: Active Medications Acetaminophen (Acetaminophen 325 Mg Tab) 650 mg PO Q4H PRN PRN Reason: Pain MILD(1-3)/Fever >100.5/MARTÍNEZ Albuterol (Albuterol 8.5 Gm Mdi Inhalation) 2 puff IH Q4HRT PRN PRN Reason: Shortness Of Breath Alprazolam (Alprazolam 0.25 Mg Tab) 0.125 mg PO Q8H PRN PRN Reason: Anxiety Apixaban (Apixaban 5 Mg Tab) 5 mg PO BID [facility] Last Admin: 06/08/21 11:09 Dose: 5 mg Documented by: Atorvastatin Calcium (Atorvastatin 10 Mg Tab) 10 mg PO DAILY [facility] Last Admin: 06/08/21 11:09 Dose: 10 mg Documented by: Carvedilol (Carvedilol 3.125 Mg Tab) 3.125 mg PO BID [facility] Last Admin: 06/08/21 11:09 Dose: 3.125 mg Documented by: Dexamethasone (Dexamethasone 4 Mg/Ml Vial) 8 mg IV Q24HR [facility] Stop: 06/16/21 10:01 Last Admin: 06/08/21 11:10 Dose: 8 mg Documented by: Dextrose (Dextrose 50% In Water (25gm) 50 Ml Syringe) 50 ml IV Q30MIN PRN; Protocol PRN Reason: Hypoglycemia Docusate Sodium (Docusate Sodium 100 Mg Cap) 100 mg PO BID PRN PRN Reason: Constipation Famotidine (Famotidine 20 Mg/2 Ml Inj) 10 mg IV BID [facility] Last Admin: 06/08/21 11:10 Dose: 10 mg Documented by: Hydralazine HCl (Hydralazine 25 Mg Tab) 25 mg PO Q8HR [facility] Last Admin: 06/08/21 05:44 Dose: 25 mg Documented by: Hydromorphone HCl (Hydromorphone 1 Mg/1 Ml Inj) 0.5 mg IV Q3H PRN PRN Reason: Pain , Severe (7-10) Hydromorphone HCl (Hydromorphone 1 Mg/1 Ml Inj) 0.25 mg IV Q4H PRN PRN Reason: Pain, Moderate (4-6) Sodium Chloride (Nacl 0.9% 1000 Ml) 1,000 mls @ 100 mls/hr IV DIRECT [facility] Last Admin: 06/08/21 03:43 Dose: 100 mls/hr Documented by: Azithromycin (Zithromax/Ns) 500 mg in 250 mls @ 250 mls/hr IV QHS [facility] Stop: 06/11/21 22:59 Ceftriaxone Sodium (Rocephin/Ns 2 Gm/100 Ml) 2 gm in 100 mls @ 200 mls/hr IV QHS [facility]; Protocol Stop: 06/11/21 22:29 Insulin Human Isoph/Insulin Regular (Insulin Nph/Regular 70/30 Inj) 45 unit SUB-Q QDDIAB [facility] Last Admin: 06/08/21 08:00 Dose: 45 unit Documented by: Insulin Human Regular (Insulin Regular, Human 100 Units/1 Ml) 0 units SUB-Q ACHS [facility]; Protocol Last Admin: 06/08/21 13:15 Dose: 3 units Documented by: Levothyroxine Sodium (Levothyroxine 75 Mcg Tab) 75 mcg PO QAM@0600 [facility] Last Admin: 06/08/21 05:44 Dose: 75 mcg Documented by: Levothyroxine Sodium (Levothyroxine 100 Mcg Tab) 200 mcg PO DAILY@0600 [facility] Last Admin: 06/08/21 05:44 Dose: 200 mcg Documented by: Loratadine/Pseudoephedrine Sulfate (Loratadine/Pseudoephedrine 10-240 Mg Tab 24hr) 1 each PO Q24HR [facility] Ondansetron HCl (Ondansetron 4 Mg Odt Tab) 4 mg PO Q8HR [facility] Last Admin: 06/08/21 13:31 Dose: 4 mg Documented by: Ondansetron HCl (Ondansetron 4 Mg/2 Ml Inj) 4 mg IV Q8H PRN PRN Reason: Nausea And Vomiting Oxycodone/Acetaminophen (Oxycodone /Acetaminophen 5-325mg Tab) 1 tab PO Q6H PRN PRN Reason: Pain, Moderate (4-6) Pneumococcal Polyvalent Vaccine (Pneumococcal 23 Valent 0.5 Ml Vial) 0.5 ml IM .ONCE ONE Stop: 06/09/21 12:01 Sodium Chloride (Sodium Chloride 0.9% 10 Ml Flush Syringe) 10 ml IV BID [facility] Last Admin: 06/08/21 11:11 Dose: 10 ml Documented by: Sodium Chloride (Sodium Chloride 0.9% 10 Ml Flush Syringe) 10 ml IV PRN PRN PRN Reason: LINE FLUSH Review of Systems All systems: negative Constitutional: fever, chills, fatigue, malaise, no weight loss, no weight gain Ears, nose, mouth and throat: no nose pain, no nasal congestion, no nasal discharge Cardiovascular: chest pain, shortness of breath, dyspnea on exertion, no palpitations, no rapid/irregular heart beat, no edema, no syncope Respiratory: cough, shortness of breath, dyspnea on exertion Gastrointestinal: nausea, diarrhea, no abdominal pain, no vomiting Musculoskeletal: no neck stiffness, no neck pain, no shooting arm pain Integumentary: no rash, no pruritis, no redness Neurological: no head injury, no transient paralysis, no paralysis Psychiatric: no anxiety, no memory loss Endocrine: no cold intolerance, no heat intolerance Hematologic/Lymphatic: no easy bruising, no easy bleeding Physical Examination Vital Signs Temp Pulse Resp BP Pulse Ox 98 F 82 16 144/82 97 06/07/21 19:12 06/07/21 19:12 06/07/21 19:12 06/07/21 19:12 06/07/21 19:12 General appearance: no acute distress HEENT: Positive: PERRL Neck: Positive: trachea midline Cardiac: Positive: Reg Rate and Rhythm Lungs: Positive: Rhonchi Neuro: Positive: Grossly Intact Abdomen: Positive: Soft, Active Bowel Sounds Skin: Negative: Rash, Suspicious Lesions, Ulceration Extremities: Present: upper extr. pulses, lower extr. pulses. Absent: edema Results 06/08/21 03:44 06/08/21 03:44 Cardiac Enzymes 06/07/21 06/08/21 Range/Units 19:11 03:44 AST 30 29 (5-40) units/L Lactate Dehydrogenase 796 H (91-180) units/L Lipids 06/07/21 Range/Units 19:11 Triglycerides 209 H (2-149) mg/dL Cholesterol 165 (50-199) mg/dL HDL Cholesterol 35 L (40-59) mg/dL Cholesterol/HDL Ratio 4.71 % CBC 06/07/21 06/08/21 Range/Units 19:11 03:44 WBC 11.5 H 12.9 H (4.5-11.0) K/mm3 RBC 4.33 4.33 (3.65-5.03) M/mm3 Hgb 12.3 12.4 (10.1-14.3) gm/dl Hct 37.4 37.6 (30.3-42.9) % Plt Count 216 207 (140-440) K/mm3 Lymph # (Auto) 0.8 L (1.2-5.4) K/mm3 Gray # (Auto) 0.4 (0.0-0.8) K/mm3 Eos # (Auto) 0.0 (0.0-0.4) K/mm3 Baso # (Auto) 0.0 (0.0-0.1) K/mm3 Comprehensive Metabolic Panel 06/07/21 06/08/21 Range/Units 19:11 03:44 Sodium 141 144 (137-145) mmol/L Potassium 3.8 4.3 (3.6-5.0) mmol/L Chloride 99.7 99.8 (98-107) mmol/L Carbon Dioxide 27 20 L D (22-30) mmol/L BUN 67 H 68 H (7-17) mg/dL Creatinine 4.8 H 4.7 H (0.6-1.2) mg/dL Glucose 244 H 218 H (65-100) mg/dL Calcium 8.9 8.5 (8.4-10.2) mg/dL AST 30 29 (5-40) units/L ALT 17 19 (7-56) units/L Alkaline Phosphatase 53 58 (35-129) units/L Total Protein 8.4 H 7.9 (6.3-8.2) g/dL Albumin 3.1 L 3.4 L (3.9-5) g/dL - Imaging and Cardiology Echo: pending EKG: pending Assessment and Plan Patient is a 61 y/o female with a PMHx of HTN, hypothyroidism, CKD III, H/o DVT Acute hypoxic Respiratory failure Sepsis Suspected breakthrough COVID PNA * Patient has known exposure to others with COVID. Patient vaccinated with Memo and Memo * Patient on highflow NC * COVID PCR pending * ID following Elevated troponins * Troponins minimally elevated and trending down 0.043->0.031. In setting of Sepsis secondary to PNA * Lexiscan MPI stress -11/03/2019-EF (30-39%), Stress/ECG changes are normal. This study suggests an intermediate risk for cardiovascular event and is associated with a cardiac mortality of 1-3% per year. There is a moderate defect of moderate intensity present in the basal anterior and mid anterior location. The defect is non-reversible (fixed). There is a moderate defect of moderate intensity present in the basal anteroseptal and mid anteroseptal location. The defect is non-reversible (fixed). There is a moderate defect of moderate intensity present in the apex location. The defect is non-reversible (fixed). TREMAINE * Nephrology consulted EKG pending. Echo pending Patient seen in conjunction with Dr. Sam who agrees with this plan of care. Will continue to follow - Patient Problems (1) Acute respiratory failure with hypoxia Current Visit: Yes Status: Acute (2) Suspected COVID-19 virus infection Current Visit: Yes Status: Acute (3) Acute kidney injury superimposed on CKD Current Visit: No Status: Acute (4) Elevated troponin Current Visit: No Status: Acute (5) History of DVT (deep vein thrombosis) Current Visit: No Status: Acute (6) Diabetes mellitus type 2, insulin dependent Current Visit: No Status: Chronic (7) Hypothyroidism Current Visit: No Status: Chronic (8) Morbid obesity Current Visit: No Status: Chronic
[2021-06-08] MEDS: LORATADINE/PSEUDOEPHEDRINE 10-240 MG TAB 24HR PO SCH (14:31)
--- NOTE | 2021-06-08 18:02 | Consultation ---
History of Present Illness Consult date: 06/08/21 Reason for consult: dyspnea, hypoxemia, other (Morbidly Obese.) History of present illness: This is 61-year-old female, Morbidly Obese admitted with shortness of breath that has been ongoing for several days. She had been around family that had been sick with coronavirus symptoms. Patient said she has been vaccinated for COVID- 19. She denies vomiting and diarrhea. Reported generalized weakness and difficulty breathing. She has had subjective fevers and chills associate with a cough. Cough has been producing yellowish phlegm. Patient has history of diabetes, Hypertension,Hyperlipidemia and hypothyroidism and CKD. Denies smoking, alcohol or drug abuse. 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 Patient and has no children. Patient alert, awake, tired and on vapotherm, FIO2 85% and O2 saturation running 95%. Still complaining shortness of breath with little Movement. Denies chest pain or cough at this time. BIPAP stand by in the room. Patient afebrile and has mild leukocytosis. Patients blood pressure 147/78. Pulse 86. Chest xray that was done 06/07/21 reported Multifocal pneumonia. Patients Holden virus PCR reported negative. But i was told they are repeating the test. Patient is on Apixaban, Azithromycin, Ceftriaxone, Dexamethasone and Famotidine. Past History Past Medical History: diabetes, hypertension, hyperlipidemia, hypothyroidism Past Surgical History: No surgical history Social history: lives with family Family history: diabetes, hypertension Medications and Allergies Allergies Allergy/AdvReac Type Severity Reaction Status Date / Time latex Allergy Unknown Verified 03/19/19 17:03 shellfish derived Allergy Anaphylaxis Verified 03/19/19 17:03 strawberry Allergy Anaphylaxis Verified 03/19/19 17:03 tomato Allergy Anaphylaxis Verified 03/19/19 17:03 nuts Allergy Anaphylaxis Uncoded 03/19/19 17:03 Home Medications Medication Instructions Recorded Confirmed Last Taken Type Albuterol Sulfate [Ventolin HFA] 2 puff IH Q4H PRN 01/29/14 09/13/19 02/01/15 History Levothyroxine (Nf) [Synthroid (Nf)] 275 mcg PO QAM 01/29/14 09/13/19 02/01/15 History Fluticasone/Salmeterol [Advair 1 each IH PRN PRN 01/26/15 09/13/1902/02/15 10:00 History Diskus 250-50 mcg] Apixaban [Eliquis starter pack] 5 mg PO BID 09/13/19 09/13/19 Unknown History Insulin Aspart Prot/Insuln Asp 45 unit SUB-Q QAM 09/13/19 09/13/19 Unknown History [Novolog Mix 70-30 Flexpen] Insulin Glargine,Hum.rec.anlog 25 unit SQ HS 09/13/19 09/13/19 Unknown History [Basaglar Kwikpen U-100] Lovastatin [Altoprev] 20 mg PO DAILY 09/13/19 09/13/19 Unknown History Docusate Sodium [Colace CAP] 100 mg PO BID PRN #30 capsule 09/17/19 Unknown Rx Loratadine/Pseudoephedrine 1 each PO Q24HR #10 tablet 09/17/19 Unknown Rx [Claritin-D 24HR] Ondansetron [Zofran Odt] 4 mg PO Q8HR #20 tab.rapdis 09/17/19 Unknown Rx carvediloL [Coreg] 3.125 mg PO BID #60 tablet 09/17/19 Unknown Rx hydrALAZINE [Apresoline TAB] 25 mg PO Q8HR #90 tablet 09/17/19 Unknown Rx Active Meds: Active Medications Acetaminophen (Acetaminophen 325 Mg Tab) 650 mg PO Q4H PRN PRN Reason: Pain MILD(1-3)/Fever >100.5/MARTÍNEZ Albuterol (Albuterol 8.5 Gm Mdi Inhalation) 2 puff IH Q4HRT PRN PRN Reason: Shortness Of Breath Alprazolam (Alprazolam 0.25 Mg Tab) 0.125 mg PO Q8H PRN PRN Reason: Anxiety Apixaban (Apixaban 5 Mg Tab) 5 mg PO BID [facility] Last Admin: 06/08/21 11:09 Dose: 5 mg Documented by: Atorvastatin Calcium (Atorvastatin 10 Mg Tab) 10 mg PO DAILY [facility] Last Admin: 06/08/21 11:09 Dose: 10 mg Documented by: Carvedilol (Carvedilol 3.125 Mg Tab) 3.125 mg PO BID [facility] Last Admin: 06/08/21 11:09 Dose: 3.125 mg Documented by: Dexamethasone (Dexamethasone 4 Mg/Ml Vial) 8 mg IV Q24HR [facility] Stop: 06/16/21 10:01 Last Admin: 06/08/21 11:10 Dose: 8 mg Documented by: Dextrose (Dextrose 50% In Water (25gm) 50 Ml Syringe) 50 ml IV Q30MIN PRN; Protocol PRN Reason: Hypoglycemia Docusate Sodium (Docusate Sodium 100 Mg Cap) 100 mg PO BID PRN PRN Reason: Constipation Famotidine (Famotidine 20 Mg/2 Ml Inj) 10 mg IV BID [facility] Last Admin: 06/08/21 11:10 Dose: 10 mg Documented by: Hydralazine HCl (Hydralazine 25 Mg Tab) 25 mg PO Q8HR [facility] Last Admin: 06/08/21 14:31 Dose: 25 mg Documented by: Hydromorphone HCl (Hydromorphone 1 Mg/1 Ml Inj) 0.5 mg IV Q3H PRN PRN Reason: Pain , Severe (7-10) Hydromorphone HCl (Hydromorphone 1 Mg/1 Ml Inj) 0.25 mg IV Q4H PRN PRN Reason: Pain, Moderate (4-6) Sodium Chloride (Nacl 0.9% 1000 Ml) 1,000 mls @ 100 mls/hr IV DIRECT [facility] Last Admin: 06/08/21 03:43 Dose: 100 mls/hr Documented by: Azithromycin (Zithromax/Ns) 500 mg in 250 mls @ 250 mls/hr IV QHS [facility] Stop: 06/11/21 22:59 Ceftriaxone Sodium (Rocephin/Ns 2 Gm/100 Ml) 2 gm in 100 mls @ 200 mls/hr IV QHS [facility]; Protocol Stop: 06/11/21 22:29 Insulin Human Isoph/Insulin Regular (Insulin Nph/Regular 70/30 Inj) 45 unit SUB-Q QDDIAB [facility] Last Admin: 06/08/21 08:00 Dose: 45 unit Documented by: Insulin Human Regular (Insulin Regular, Human 100 Units/1 Ml) 0 units SUB-Q ACHS [facility]; Protocol Last Admin: 06/08/21 16:35 Dose: 3 units Documented by: Levothyroxine Sodium (Levothyroxine 75 Mcg Tab) 75 mcg PO QAM@0600 [facility] Last Admin: 06/08/21 05:44 Dose: 75 mcg Documented by: Levothyroxine Sodium (Levothyroxine 100 Mcg Tab) 200 mcg PO DAILY@0600 [facility] Last Admin: 06/08/21 05:44 Dose: 200 mcg Documented by: Loratadine/Pseudoephedrine Sulfate (Loratadine/Pseudoephedrine 10-240 Mg Tab 24hr) 1 each PO Q24HR [facility] Last Admin: 06/08/21 14:31 Dose: 1 each Documented by: Ondansetron HCl (Ondansetron 4 Mg Odt Tab) 4 mg PO Q8HR [facility] Last Admin: 06/08/21 13:31 Dose: 4 mg Documented by: Ondansetron HCl (Ondansetron 4 Mg/2 Ml Inj) 4 mg IV Q8H PRN PRN Reason: Nausea And Vomiting Oxycodone/Acetaminophen (Oxycodone /Acetaminophen 5-325mg Tab) 1 tab PO Q6H PRN PRN Reason: Pain, Moderate (4-6) Pneumococcal Polyvalent Vaccine (Pneumococcal 23 Valent 0.5 Ml Vial) 0.5 ml IM .ONCE ONE Stop: 06/09/21 12:01 Sodium Chloride (Sodium Chloride 0.9% 10 Ml Flush Syringe) 10 ml IV BID [facility] Last Admin: 06/08/21 11:11 Dose: 10 ml Documented by: Sodium Chloride (Sodium Chloride 0.9% 10 Ml Flush Syringe) 10 ml IV PRN PRN PRN Reason: LINE FLUSH Review of Systems All systems: negative Physical Examination Vital signs: Vital Signs Temp Pulse Resp BP Pulse Ox 98 F 82 16 144/82 97 06/07/21 19:12 06/07/21 19:12 06/07/21 19:12 06/07/21 19:12 06/07/21 19:12 General appearance: alert, appears uncomfortable, other (Morbidly Obese, Mild shortness of breath at rest.) Eyes: non-icteric ENT: oropharynx moist Neck: supple, no lymphadenopathy Effort: mildly labored Ascultation: Bilateral: diminished breath sounds, rhonchi Cardiovascular: regular rate and rhythm Gastrointestinal: normoactive bowel sounds, soft, non-tender Integumentary: normal Extremities: no cyanosis, no edema Musculoskeletal: no deformities Gait: other (Can not evaluate. patient is in bed.) normal mental status, non-focal exam, pupils equal and round, CN II-XII normal mood appropriate, affect normal Results - Laboratory Findings CBC and BMP: 06/09/21 08:42 06/09/21 08:42 PT/INR, D-dimer D-Dimer 5334.05 ng/mlDDU (0-234) H 06/07/21 19:11 Abnormal lab findings: Abnormal Labs 06/07/21 06/07/21 06/07/21 19:11 19:11 19:11 WBC 11.5 H Lymph % (Auto) 6.5 L Lymph # (Auto) 0.8 L Seg Neutrophils % 89.9 H Seg Neuts % (Manual) Lymphocytes % (Manual) Seg Neutrophils # 10.4 H Seg Neutrophils # Man Lymphocytes # (Manual) D-Dimer 5334.05 H Carbon Dioxide BUN 67 H Creatinine 4.8 H Glucose 244 H POC Glucose Hemoglobin A1c Ferritin Lactate Dehydrogenase 796 H Troponin T 0.043 H C-Reactive Protein 19.60 H Total Protein 8.4 H Albumin 3.1 L Triglycerides 209 H HDL Cholesterol 35 L 06/07/21 06/07/21 06/08/21 19:11 19:11 03:04 WBC Lymph % (Auto) Lymph # (Auto) Seg Neutrophils % Seg Neuts % (Manual) Lymphocytes % (Manual) Seg Neutrophils # Seg Neutrophils # Man Lymphocytes # (Manual) D-Dimer Carbon Dioxide BUN Creatinine Glucose POC Glucose Hemoglobin A1c 9.5 H Ferritin 1230.0 H Lactate Dehydrogenase Troponin T 0.031 H D C-Reactive Protein Total Protein Albumin Triglycerides HDL Cholesterol 06/08/21 06/08/21 06/08/21 03:44 03:44 08:21 WBC 12.9 H Lymph % (Auto) Lymph # (Auto) Seg Neutrophils % Seg Neuts % (Manual) 95.0 H Lymphocytes % (Manual) 3.0 L Seg Neutrophils # Seg Neutrophils # Man 12.3 H Lymphocytes # (Manual) 0.4 L D-Dimer Carbon Dioxide 20 L D BUN 68 H Creatinine 4.7 H Glucose 218 H POC Glucose 273 H Hemoglobin A1c Ferritin Lactate Dehydrogenase Troponin T C-Reactive Protein Total Protein Albumin 3.4 L Triglycerides HDL Cholesterol 06/08/21 06/08/21 11:00 17:29 WBC Lymph % (Auto) Lymph # (Auto) Seg Neutrophils % Seg Neuts % (Manual) Lymphocytes % (Manual) Seg Neutrophils # Seg Neutrophils # Man Lymphocytes # (Manual) D-Dimer Carbon Dioxide BUN Creatinine Glucose POC Glucose 239 H 220 H Hemoglobin A1c Ferritin Lactate Dehydrogenase Troponin T C-Reactive Protein Total Protein Albumin Triglycerides HDL Cholesterol - Diagnostic Findings Chest x-ray: report reviewed, image reviewed Additional studies: CHEST 1 VIEW 06/07/2021 6:08 PM INDICATION / CLINICAL INFORMATION: hypoxia. COMPARISON: 09/12/2019 FINDINGS: SUPPORT DEVICES: None. HEART / MEDIASTINUM: No significant abnormality. LUNGS / PLEURA: There are scattered peripheral bilateral, right greater than left, airspace opacities. No pneumothorax. ADDITIONAL FINDINGS: No significant additional findings. IMPRESSION: 1. Multifocal pneumonia. Assessment and Plan This is 61-year-old female, Morbidly Obese admitted with shortness of breath that has been ongoing for several days. She had been around family that had been sick with coronavirus symptoms. Patient said she has been vaccinated for COVID- 19. She denies vomiting and diarrhea. Reported generalized weakness and difficulty breathing. She has had subjective fevers and chills associate with a cough. Cough has been producing yellowish phlegm. Patient has history of diabetes, Hypertension,Hyperlipidemia and hypothyroidism and CKD. Denies smok ing, alcohol or drug abuse. 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 Patient alert, awake, tired and on vapotherm, FIO2 85% and O2 saturation running 95%. Still complaining shortness of breath with little Movement. Denies chest pain or cough at this time. BIPAP stand by in the room. Patient afebrile and has mild leukocytosis. Patients blood pressure 147/78. Pulse 86. Chest xray that was done 06/07/21 reported Multifocal pneumonia. Patients Holden virus PCR reported negative. But i was told they are repeating the test. Patient is on Apixaban, Azithromycin, Ceftriaxone, Dexamethasone and Famotidine. I spent critical care time of 40 minutes, obtaining history, reviewing the chart, Examine the patient, review labs and chest xray, talking to respiratory therapy and nursing staff and work out plan of treatment inthis critically ill acute hypoxic respiratory failure patient. - Patient Problems (1) Acute respiratory failure with hypoxia Current Visit: Yes Status: Acute Plan to address problem: Patient is on Vapotherm, FIO2 85% Patient is on Dexamethasone. Patient is on Apixaban. Continue famotidine. (2) Suspected COVID-19 virus infection Current Visit: Yes Status: Acute Plan to address problem: I was told they are repeating holden virus PCR test. (3) Acute kidney injury superimposed on CKD Current Visit: No Status: Acute Plan to address problem: Management as per nephrology. (4) Hypertension Current Visit: No Status: Acute Plan to address problem: Management as per primary care. (5) Diabetes mellitus type 2, insulin dependent Current Visit: No Status: Chronic Plan to address problem: Management as per primary care. (6) Hypothyroidism Current Visit: No Status: Chronic Plan to address problem: Patient is on Levothyroxine. Management as per primary care. (7) Morbid obesity Current Visit: No Status: Chronic Plan to address problem: Recommend to loose weight. Diet and exercise. Recommend sleep study as out patient.
[2021-06-08] MEDS: cefTRIAXone/NS 2 GM/100 ML 2 GM/100 ML BAG IV SCH (22:34)
[2021-06-08] MEDS: AZITHROMYCIN/NS 500 MG/250 ML 500 MG/250 ML BAG IV SCH (22:35)
[2021-06-09] MEDS: guaiFENesin DM 200/20 MG ORAL LIQD 10 ML PO PRN ×2 (00:35→21:33)
[2021-06-09] MEDS: LEVOTHYROXINE 100 MCG TAB PO SCH (05:36)
[2021-06-09] MEDS: LEVOTHYROXINE 75 MCG TAB PO SCH (05:36)
[2021-06-09] MEDS: ONDANSETRON 4 MG ODT TAB PO SCH ×3 (05:37→21:31)
[2021-06-09] MEDS: SODIUM CHLORIDE 0.9% 1000 ML 1,000 ML IV SCH ×2 (05:38→17:20)
[2021-06-09] MEDS: hydrALAZINE 25 MG TAB PO SCH ×3 (05:39→21:31)
[2021-06-09] MEDS: FAMOTIDINE 20 MG/2 ML INJ IV SCH ×2 (09:03→21:32)
[2021-06-09] MEDS: INSULIN REGULAR, HUMAN 100 UNITS/1 ML SUB-Q SCH ×4 (09:03→21:51)
[2021-06-09] MEDS: dexAMETHasone 4 MG/ML VIAL IV SCH (09:04)
[2021-06-09] MEDS: carvediloL 3.125 MG TAB PO SCH ×2 (09:04→21:31)
[2021-06-09] MEDS: APIXABAN 5 MG TAB PO SCH ×2 (09:04→21:31)
[2021-06-09] MEDS: INSULIN NPH/REGULAR 70/30 INJ SUB-Q SCH (09:05)
[2021-06-09 09:43] LABS: Calcium 8.3 mg/dL (8.4-10.2)
[2021-06-09] MEDS: LORATADINE/PSEUDOEPHEDRINE 10-240 MG TAB 24HR PO SCH (09:51)
[2021-06-09 11:18] LABS: Basophils % (Auto) 0.2 % (0.0-1.8); Hemoglobin 14.9 gm/dl (10.1-14.3); Lymphocytes # (Auto) 0.7 K/mm3 (1.2-5.4); Lymphocytes % (Auto) 4.9 % (13.4-35.0); Mean Corpuscular HGB Conc 33 % (30-34); Mean Corpuscular Volume 85 fl (79-97); Monocytes # (Auto) 0.7 K/mm3 (0.0-0.8); Monocytes % (Auto) 4.9 % (0.0-7.3); Platelet Count 142 K/mm3 (140-440); Red Blood Count 5.28 M/mm3 (3.65-5.03); Red Cell Distribution Width 15.1 % (13.2-15.2)
--- NOTE | 2021-06-09 11:42 | Progress Note ---
Assessment and Plan #Suspected COVID-19 breakthrough infection #COVID-19 pneumonia #Acute renal failure versus acute on chronic renal failure #Acute hypoxic respiratory failure #Insulin-dependent type 2 diabetes- uncontrolled #Elevated troponin #Hypertension-controlled #Hypothyroidism #Protein calorie malnutrition Cr is tredning down with IV renal US and urine studies are pedning renally dose meds strict I&O daily weight no indication for [employer]. Subjective Date of service: 06/09/21 Principal diagnosis: TREMAINE Interval history: No overnight events reported Objective - Vital Signs Vital signs: Vital Signs - 12hr 06/09/21 06/09/21 05:39 05:40 Temperature 97.5 F L Pulse Rate 77 79 Respiratory 18 Rate Blood Pressure 133/77 133/77 O2 Sat by Pulse 97 Oximetry - Lab 06/09/21 08:42 06/09/21 08:42 Most recent lab results Calcium 8.3 mg/dL (8.4-10.2) L 06/09/21 08:42 Phosphorus 4.50 mg/dL (2.5-4.5) 06/09/21 08:42 Medications & Allergies - Medications Allergies/Adverse Reactions: Allergies latex Allergy (Verified 03/19/19 17:03) Unknown shellfish derived Allergy (Verified 03/19/19 17:03) Anaphylaxis strawberry Allergy (Verified 03/19/19 17:03) Anaphylaxis tomato Allergy (Verified 03/19/19 17:03) Anaphylaxis nuts Allergy (Uncoded 03/19/19 17:03) Anaphylaxis Home Medications: Home Medications Medication Instructions Recorded Confirmed Last Taken Type Albuterol Sulfate [Ventolin HFA] 2 puff IH Q4H PRN 01/29/14 09/13/19 02/01/15 History Levothyroxine (Nf) [Synthroid (Nf)] 275 mcg PO QAM 01/29/14 09/13/19 02/01/15 History Fluticasone/Salmeterol [Advair 1 each IH PRN PRN 01/26/15 09/13/19 02/02/15 10:00 History Diskus 250-50 mcg] Apixaban [Eliquis starter pack] 5 mg PO BID 09/13/19 09/13/19 Unknown History Insulin Aspart Prot/Insuln Asp 45 unit SUB-Q QAM 09/13/19 09/13/19 Unknown History [Novolog Mix 70-30 Flexpen] Insulin Glargine,Hum.rec.anlog 25 unit SQ HS 09/13/19 09/13/19 Unknown History [Basaglar Kwikpen U-100] Lovastatin [Altoprev] 20 mg PO DAILY 09/13/19 09/13/19 Unknown History Docusate Sodium [Colace CAP] 100 mg PO BID PRN #30 capsule 09/17/19 Unknown Rx Loratadine/Pseudoephedrine 1 each PO Q24HR #10 tablet 09/17/19 Unknown Rx [Claritin-D 24HR] Ondansetron [Zofran Odt] 4 mg PO Q8HR #20 tab.rapdis 09/17/19 Unknown Rx carvediloL [Coreg] 3.125 mg PO BID #60 tablet 09/17/19 Unknown Rx hydrALAZINE [Apresoline TAB] 25 mg PO Q8HR #90 tablet 09/17/19 Unknown Rx Active Medications: Generic Name Dose Route Start Last Admin Trade Name Freq PRN Reason Stop Dose Admin Acetaminophen 650 mg 06/07/21 21:41 Acetaminophen 325 Mg Tab PO Q4H PRN Pain MILD(1-3)/Fever >100.5/MARTÍNEZ Albuterol 2 puff 06/07/21 23:00 Albuterol 8.5 Gm Mdi Inhalation IH Q4HRT PRN Shortness Of Breath Alprazolam 0.125 mg 06/07/21 22:33 Alprazolam 0.25 Mg Tab PO Q8H PRN Anxiety Apixaban 5 mg 06/08/21 10:00 06/09/21 09:04 Apixaban 5 Mg Tab PO 5 mg BID [facility] Administration Atorvastatin Calcium 10 mg 06/08/21 10:00 06/09/21 09:04 Atorvastatin 10 Mg Tab PO 10 mg DAILY [facility] Administration Carvedilol 3.125 mg 06/07/21 22:00 06/09/21 09:04 Carvedilol 3.125 Mg Tab PO 3.125 mg BID [facility] Administration Dexamethasone 8 mg 06/08/21 10:00 06/09/21 09:04 Dexamethasone 4 Mg/Ml Vial IV 06/16/21 10:01 8 mg Q24HR [facility] Administration Dextrose 50 ml 06/08/21 12:04 Dextrose 50% In Water (25gm) 50 Ml Syringe IV Q30MIN PRN Hypoglycemia Protocol Docusate Sodium 100 mg 06/07/21 21:33 Docusate Sodium 100 Mg Cap PO BID PRN Constipation Famotidine 10 mg 06/08/21 10:00 06/09/21 09:03 Famotidine 20 Mg/2 Ml Inj IV 10 mg BID [facility] Administration Guaifenesin 10 ml 06/09/21 00:15 06/09/21 00:35 Guaifenesin Dm 200/20 Mg Oral Liqd 10 Ml PO 10 ml Q4H PRN Administration Cough Hydralazine HCl 25 mg 06/07/21 22:00 06/09/21 05:39 Hydralazine 25 Mg Tab PO 25 mg Q8HR [facility] Administration Hydromorphone HCl 0.5 mg 06/07/21 21:41 Hydromorphone 1 Mg/1 Ml Inj IV Q3H PRN Pain , Severe (7-10) Hydromorphone HCl 0.25 mg 06/07/21 22:33 Hydromorphone 1 Mg/1 Ml Inj IV Q4H PRN Pain, Moderate (4-6) Sodium Chloride 1,000 mls @ 100 mls/hr 06/07/21 21:45 06/09/21 05:38 Nacl 0.9% 1000 Ml IV 100 mls/hr DIRECT [facility] Administration Azithromycin 500 mg in 250 mls @ 250 mls/hr 06/08/21 22:00 06/08/21 22:35 Zithromax/Ns IV 06/09/21 23:59 250 mls/hr QHS [facility] Administration Ceftriaxone Sodium 2 gm in 100 mls @ 200 mls/hr 06/08/21 22:00 06/08/21 22:34 Rocephin/Ns 2 Gm/100 Ml IV 06/11/21 22:29 200 mls/hr QHS [facility] Administration Protocol Insulin Human Isoph/Insulin Regular 55 unit 06/09/21 08:00 06/09/21 09:05 Insulin Nph/Regular 70/30 Inj SUB-Q 55 unit QDDIAB [facility] Administration Insulin Human Regular 0 units 06/08/21 12:15 06/09/21 09:03 Insulin Regular, Human 100 Units/1 Ml SUB-Q 3 units ACHS [facility] Administration Protocol Levothyroxine Sodium 75 mcg 06/08/21 06:00 06/09/21 05:36 Levothyroxine 75 Mcg Tab PO 75 mcg QAM@0600 [facility] Administration Levothyroxine Sodium 200 mcg 06/08/21 06:00 06/09/21 05:36 Levothyroxine 100 Mcg Tab PO 200 mcg DAILY@0600 [facility] Administration Loratadine/Pseudoephedrine Sulfate 1 each 06/08/21 10:00 06/09/21 09:51 Loratadine/Pseudoephedrine 10-240 Mg Tab 24hr PO 1 each Q24HR [facility] Administration Ondansetron HCl 4 mg 06/07/21 22:00 06/09/21 05:37 Ondansetron 4 Mg Odt Tab PO 4 mg Q8HR [facility] Administration Ondansetron HCl 4 mg 06/07/21 21:41 Ondansetron 4 Mg/2 Ml Inj IV Q8H PRN Nausea And Vomiting Oxycodone/Acetaminophen 1 tab 06/07/21 21:41 Oxycodone /Acetaminophen 5-325mg Tab PO Q6H PRN Pain, Moderate (4-6) Pneumococcal Polyvalent Vaccine 0.5 ml 06/09/21 12:00 Pneumococcal 23 Valent 0.5 Ml Vial IM 06/09/21 12:01 .ONCE ONE Sodium Chloride 10 ml 06/07/21 22:00 06/09/21 09:05 Sodium Chloride 0.9% 10 Ml Flush Syringe IV 10 ml BID [facility] Administration Sodium Chloride 10 ml 06/07/21 21:41 Sodium Chloride 0.9% 10 Ml Flush Syringe IV PRN PRN LINE FLUSH
--- NOTE | 2021-06-09 11:42 | Progress Note ---
Assessment and Plan Patient is a 61 y/o female with a PMHx of HTN, hypothyroidism, CKD III, H/o DVT Acute hypoxic Respiratory failure Sepsis Breakthrough COVID PNA * Patient has known exposure to others with COVID. Patient vaccinated with Memo and Memo * Patient on highflow [place] * COVID PCR positive * ID following * Pulmonlogy following Elevated troponins * Troponins minimally elevated and trending down 0.043->0.031. In setting of Sepsis secondary to PNA * Lexiscan MPI stress -11/03/2019-EF (30-39%), Stress/ECG changes are normal. This study suggests an intermediate risk for cardiovascular event and is associated with a cardiac mortality of 1-3% per year. There is a moderate defect of moderate intensity present in the basal anterior and mid anterior location. The defect is non-reversible (fixed). There is a moderate defect of moderate intensity present in the basal anteroseptal and mid anteroseptal location. The defect is non-reversible (fixed). There is a moderate defect of moderate intensity present in the apex location. The defect is non-reversible (fixed). * Echo 06/07/2021-EF 50 to 55%, right ventricle not well visualized, right ventricle systolic function is normal, left atrium is normal in size, right atrium is not well visualized, pulmonic valve not well visualized. TREMAINE * Nephrology following Normal echo. Patient cardiac status is stable. Patient seen in conjunction with Dr. Sam who agrees with this plan of care. Will see as needed - Patient Problems (1) Acute respiratory failure with hypoxia Current Visit: Yes Status: Acute (2) Suspected COVID-19 virus infection Current Visit: Yes Status: Acute (3) Acute kidney injury superimposed on CKD Current Visit: No Status: Acute (4) Elevated troponin Current Visit: No Status: Acute (5) History of DVT (deep vein thrombosis) Current Visit: No Status: Acute (6) Diabetes mellitus type 2, insulin dependent Current Visit: No Status: Chronic (7) Hypothyroidism Current Visit: No Status: Chronic (8) Morbid obesity Current Visit: No Status: Chronic Subjective Date of service: 06/09/21 Principal diagnosis: COVID PNA, Acute hypoxic repiratory failure, TREMAINE Interval history: Patient sitting in bed on [place] Sinus 75 with PACs on monitor Objective Vital Signs Temp Pulse Resp BP Pulse Ox 06/09/21 05:40 97.5 F L 79 18 133/77 97 06/09/21 05:39 77 133/77 06/08/21 22:31 82 149/76 06/08/21 21:47 95 06/08/21 21:39 97.7 F 82 20 149/76 91 06/08/21 20:00 94 06/08/21 17:26 97.7 F 86 24 147/78 88 06/08/21 12:07 87 - Physical Examination General: No Apparent Distress HEENT: Positive: PERRL Neck: Positive: trachea midline Cardiac: Positive: Reg Rate and Rhythm Lungs: Positive: Decreased Breath Sounds Neuro: Positive: Grossly Intact Abdomen: Positive: Soft, Active Bowel Sounds Skin: Negative: Rash, Suspicious Lesions, Ulceration Extremities: Present: upper extr. pulses, lower extr. pulses. Absent: edema - Labs and Meds CBC 06/09/21 Range/Units 08:42 WBC 14.7 H (4.5-11.0) K/mm3 RBC 5.28 H (3.65-5.03) M/mm3 Hgb 14.9 H (10.1-14.3) gm/dl Hct 45.0 H D (30.3-42.9) % Plt Count 142 (140-440) K/mm3 Lymph # (Auto) 0.7 L (1.2-5.4) K/mm3 [place] # (Auto) 0.7 (0.0-0.8) K/mm3 Eos # (Auto) 0.0 (0.0-0.4) K/mm3 Baso # (Auto) 0.0 (0.0-0.1) K/mm3 Comprehensive Metabolic Panel 06/09/21 Range/Units 08:42 Sodium 139 (137-145) mmol/L Potassium 4.9 (3.6-5.0) mmol/L Chloride 104.2 (98-107) mmol/L Carbon Dioxide 17 L (22-30) mmol/L BUN 74 H (7-17) mg/dL Creatinine 3.7 H (0.6-1.2) mg/dL Glucose 259 H (65-100) mg/dL Calcium 8.3 L (8.4-10.2) mg/dL - Imaging and Cardiology EKG: pending Echo: report reviewed - Telemetry EKG Rhythm: Sinus Rhythm - EKG Sinus rhythms and dysrhythmias: sinus rhythm Supraventricular dysrhythmia: atrial premature complexe
[2021-06-09] MEDS ORDERED: PNEUMOCOCCAL 23 Valent 0.5 ML VIAL IM ONE (12:00)
[2021-06-09] MEDS ORDERED: TOCILIZUMAB 800 MG in SODIUM CHLORIDE 0.9% 100 ML IV ONE (13:45)
--- NOTE | 2021-06-09 13:46 | Progress Note ---
Assessment and Plan Cultures: SARS CoV2 PCR positive Assessment: 61-year-old female with history of diabetes mellitus, hypertension, hyperlipidemia, hypothyroidism, vaccinated for COVID-19 with [place] 2020, admitted on 06/07/2021 secondary to a week history of malaise, chills, fever cough, shortness of breath: #Severe sepsis : likely due to bilateral pneumonia. #Severe breakthrough COVID pneumonia: CXR with bilateral multifocal pneumonia. Infllammatory markers elevated. D-dimer 5334. CRP 19.6. #Acute hypoxemic respiratory failure: Requiring BiPAP/HFNC. #TREMAINE: from sepsis/COVID #Diabetes mellitus: Uncontrolled. Glucose 244. A1c 9.5. #Morbid obesity Recommendations: -Actemra ordered -Continue dexamethasone IV/PO daily for 10 days -No indication for remdesivir due to renal failure -Monitor inflammatory markers - ferritin, Ddimer, CRP, LDH -Continue anticoagulation per System Protocol -Continue ceftriaxone for 5 days and azithromycin for 3 days, however pr ocalcitonin elevation may be related to TREMAINE Hollie Oviedo MD, FACP [facility] ([facility] O: [phone] F: [phone] Subjective Date of service: 06/09/21 Principal diagnosis: TREMAINE Interval history: Afebrile. On HFNC. COVID-19 is positive Objective - Exam Narrative Exam: Physical Exam (reviewed in chart to minimize risk of transmission) Constitutional: deferred Head, Ears, Nose: deferred Eyes: deferred Neck: deferred Oral: deferred Cardiovascular: deferred Respiratory: deferred GI: deferred Musculoskeletal: deferred Skin: deferred Hem/Lymphatic: deferred Psych: deferred Neurological: deferred - Constitutional Vitals: Vital Signs Temp Pulse Resp BP Pulse Ox 97.5 F L 79 18 133/77 94 06/09/21 05:40 06/09/21 05:40 06/09/21 05:40 06/09/21 05:40 06/09/21 12:43 Temperature -Last 24 Hours Temperature 97.5 F Temperature 97.7 F Temperature 97.7 F - Labs CBC & Chem 7: 06/09/21 08:42 06/09/21 08:42 Labs: Abnormal lab results 06/08/21 06/08/21 06/08/21 Range/Units 08:30 17:29 21:09 WBC (4.5-11.0) K/mm3 RBC (3.65-5.03) M/mm3 Hgb (10.1-14.3) gm/dl Hct (30.3-42.9) % Lymph % (Auto) (13.4-35.0) % Lymph # (Auto) (1.2-5.4) K/mm3 Seg Neutrophils % (40.0-70.0) % Seg Neutrophils # (1.8-7.7) K/mm3 Carbon Dioxide (22-30) mmol/L BUN (7-17) mg/dL Creatinine (0.6-1.2) mg/dL Glucose (65-100) mg/dL POC Glucose 220 H 242 H (70-105) mg/dL Calcium (8.4-10.2) mg/dL Coronavirus (PCR) Positive A (Negative) 06/09/21 06/09/21 06/09/21 Range/Units 08:07 08:42 08:42 WBC 14.7 H (4.5-11.0) K/mm3 RBC 5.28 H (3.65-5.03) M/mm3 Hgb 14.9 H (10.1-14.3) gm/dl Hct 45.0 H D (30.3-42.9) % Lymph % (Auto) 4.9 L (13.4-35.0) % Lymph # (Auto) 0.7 L (1.2-5.4) K/mm3 Seg Neutrophils % 90.0 H (40.0-70.0) % Seg Neutrophils # 13.2 H (1.8-7.7) K/mm3 Carbon Dioxide 17 L (22-30) mmol/L BUN 74 H (7-17) mg/dL Creatinine 3.7 H (0.6-1.2) mg/dL Glucose 259 H (65-100) mg/dL POC Glucose 230 H (70-105) mg/dL Calcium 8.3 L (8.4-10.2) mg/dL Coronavirus (PCR) (Negative) 06/09/21 Range/Units 12:05 WBC (4.5-11.0) K/mm3 RBC (3.65-5.03) M/mm3 Hgb (10.1-14.3) gm/dl Hct (30.3-42.9) % Lymph % (Auto) (13.4-35.0) % Lymph # (Auto) (1.2-5.4) K/mm3 Seg Neutrophils % (40.0-70.0) % Seg Neutrophils # (1.8-7.7) K/mm3 Carbon Dioxide (22-30) mmol/L BUN (7-17) mg/dL Creatinine (0.6-1.2) mg/dL Glucose (65-100) mg/dL POC Glucose 274 H (70-105) mg/dL Calcium (8.4-10.2) mg/dL Coronavirus (PCR) (Negative)
--- NOTE | 2021-06-09 14:27 | Progress Note ---
Assessment and Plan Assessment and plan: #Suspected COVID-19 breakthrough infection #COVID-19 pneumonia -Patient admits to being vaccinated with the [employer] vaccine earlier this year; however, several family members have been diagnosed with Covid recently -Pending Covid 19 results; continue airborne and contact isolation per COVID-19 protocol -Inflammatory markers elevated; continue to monitor every 2 to 3 days -Infectious disease consulted; appreciate recs. Acetemra started -Continue BiPAP management and wean oxygen as tolerated -Pending morning ABG to determine if ARDS is present -We will initiate steroid (prednisone 40 mg daily) treatment. Patient is not a candidate for remdesivir due to renal failure -Continue ascorbic acid, zinc sulfate, and vitamin D supplementation per COVID- 19 protocol #Acute renal failure versus acute on chronic renal failure-improving -Creatinine 3.7 (baseline unknown) -Nephrology consulted on admission; appreciate recs -Continue to monitor renal function and encouraging increased p.o. intake -Avoiding nephrotoxic medications #Acute hypoxic respiratory failure -Currently on BiPAP therapy and will wean as tolerated -Pending a.m. ABG to determine if ARDS is present -Pulmonology consulted on admission; appreciate recs -Chest x-ray revealing bilateral pneumonia concerning for COVID-19 breakthrough infection #Insulin-dependent type 2 diabetes- uncontrolled -Pending hemoglobin A1c -Started on scheduled NPH with medium sliding scale insulin -We will continue to monitor. Blood sugar goal 140-180 #Elevated troponin -Continue to trend troponins; troponins -Elevated troponins likely secondary to type II etiology -Cardiology consulted on admission; appreciate recs -TTE unchanged from previous imaging #Hypertension-controlled -Continue home antihypertensives -We will continue to follow #Hypothyroidism -Continue home medications -We will defer on testing TSH due to current medical condition #Protein calorie malnutrition -Nutrition consulted upon admission -Patient admitted to having decreased p.o. intake for approximately 1 to 2 weeks prior to admission; encouraging p.o. intake #History of DVT -Continue home Eliquis; like Eliquis will also cover for DVT prophylaxis Disposition Plan: Continue medical manage History Interval history: No acute events over night. The patient denies fevers, chills, nausea, vomiting, abdominal pain, chest pain/pressure, shortness of breath, urinary symptoms, weakness, or confusion. Hospitalist Physical - Constitutional Vitals: Temp Pulse Resp BP Pulse Ox 97.5 F L 79 18 133/77 94 06/09/21 05:40 06/09/21 05:40 06/09/21 05:40 06/09/21 05:40 06/09/21 12:43 General appearance: Present: no acute distress - EENT Eyes: Present: PERRL, EOM intact ENT: hearing intact, clear oral mucosa, dentition normal - Neck Neck: Present: supple, normal ROM - Respiratory Respiratory effort: labored Respiratory: bilateral: diminished, rhonchi (Slightly difficult to auscultate l bernard sounds due to body habitus), negative: CTA, rales, wheezing - Cardiovascular Rhythm: regular Heart Sounds: Present: S1 & S2 - Extremities Extremities: no ischemia, pulses intact, pulses symmetrical, No edema, normal temperature, normal color Peripheral Pulses: within normal limits - Abdominal General gastrointestinal: soft, non-tender, non-distended, normal bowel sounds (Unable to auscultate bowel sounds due to body habitus) - Integumentary Integumentary: Present: clear, warm, dry - Psychiatric Psychiatric: appropriate mood/affect, intact judgment & insight, memory intact, cooperative - Neurologic Neurologic: CNII-XII intact, moves all extremities - Allied Health Allied health notes reviewed: nursing HEART Score - HEART Score History: Slightly suspicious EKG: Non-specific Age: 45-65 Risk factors: 1-2 risk factors Troponin: Troponin T 0.021 ng/mL (0.00-0.029) 06/08/21 13:49 - Critical Actions Critical Actions: 0-3 pts:0.9-1.7%risk of adverse cardiac event.Candidate for discharge Results - Labs CBC & Chem 7: 06/09/21 08:42 06/09/21 08:42 Labs: Laboratory Last Values WBC 14.7 K/mm3 (4.5-11.0) H 06/09/21 08:42 RBC 5.28 M/mm3 (3.65-5.03) H 06/09/21 08:42 Hgb 14.9 gm/dl (10.1-14.3) H 06/09/21 08:42 Hct 45.0 % (30.3-42.9) H D 06/09/21 08:42 MCV 85 fl (79-97) 06/09/21 08:42 MCH 28 pg (28-32) 06/09/21 08:42 MCHC 33 % (30-34) 06/09/21 08:42 RDW 15.1 % (13.2-15.2) 06/09/21 08:42 Plt Count 142 K/mm3 (140-440) 06/09/21 08:42 Lymph % (Auto) 4.9 % (13.4-35.0) L 06/09/21 08:42 [place] % (Auto) 4.9 % (0.0-7.3) 06/09/21 08:42 Eos % (Auto) 0.0 % (0.0-4.3) 06/09/21 08:42 Baso % (Auto) 0.2 % (0.0-1.8) 06/09/21 08:42 Lymph # (Auto) 0.7 K/mm3 (1.2-5.4) L 06/09/21 08:42 [place] # (Auto) 0.7 K/mm3 (0.0-0.8) 06/09/21 08:42 Eos # (Auto) 0.0 K/mm3 (0.0-0.4) 06/09/21 08:42 Baso # (Auto) 0.0 K/mm3 (0.0-0.1) 06/09/21 08:42 Add Manual Diff Complete 06/08/21 03:44 Total Counted 100 06/08/21 03:44 Seg Neutrophils % 90.0 % (40.0-70.0) H 06/09/21 08:42 Seg Neuts % (Manual) 95.0 % (40.0-70.0) H 06/08/21 03:44 Lymphocytes % (Manual) 3.0 % (13.4-35.0) L 06/08/21 03:44 Monocytes % (Manual) 2.0 % (0.0-7.3) 06/08/21 03:44 Nucleated RBC % Not Reportable 06/08/21 03:44 Seg Neutrophils # 13.2 K/mm3 (1.8-7.7) H 06/09/21 08:42 Seg Neutrophils # Man 12.3 K/mm3 (1.8-7.7) H 06/08/21 03:44 Band Neutrophils # 0.0 K/mm3 06/08/21 03:44 Lymphocytes # (Manual) 0.4 K/mm3 (1.2-5.4) L 06/08/21 03:44 Abs React Lymphs (Man) 0.0 K/mm3 06/08/21 03:44 Monocytes # (Manual) 0.3 K/mm3 (0.0-0.8) 06/08/21 03:44 Eosinophils # (Manual) 0.0 K/mm3 (0.0-0.4) 06/08/21 03:44 Basophils # (Manual) 0.0 K/mm3 (0.0-0.1) 06/08/21 03:44 Metamyelocytes # 0.0 K/mm3 06/08/21 03:44 Myelocytes # 0.0 K/mm3 06/08/21 03:44 Promyelocytes # 0.0 K/mm3 06/08/21 03:44 Blast Cells # 0.0 K/mm3 06/08/21 03:44 WBC Morphology Not Reportable 06/08/21 03:44 Hypersegmented Neuts Not Reportable 06/08/21 03:44 Hyposegmented Neuts Not Reportable 06/08/21 03:44 Hypogranular Neuts Not Reportable 06/08/21 03:44 Smudge Cells Not Reportable 06/08/21 03:44 Toxic Granulation Not Reportable 06/08/21 03:44 Toxic Vacuolation Not Reportable 06/08/21 03:44 Dohle Bodies Not Reportable 06/08/21 03:44 Pelger-Huet Anomaly Not Reportable 06/08/21 03:44 Nba Rods Not Reportable 06/08/21 03:44 Platelet Estimate Consistent w auto 06/08/21 03:44 Clumped Platelets Not Reportable 06/08/21 03:44 Plt Clumps, EDTA Not Reportable 06/08/21 03:44 Large Platelets Not Reportable 06/08/21 03:44 Giant Platelets Not Reportable 06/08/21 03:44 Platelet Satelliting Not Reportable 06/08/21 03:44 Plt Morphology Comment Not Reportable 06/08/21 03:44 RBC Morphology Not Reportable 06/08/21 03:44 Dimorphic RBCs Not Reportable 06/08/21 03:44 Polychromasia Not Reportable 06/08/21 03:44 Hypochromasia Not Reportable 06/08/21 03:44 Poikilocytosis Not Reportable 06/08/21 03:44 Anisocytosis Not Reportable 06/08/21 03:44 Microcytosis Not Reportable 06/08/21 03:44 Macrocytosis Not Reportable 06/08/21 03:44 Spherocytes Not Reportable 06/08/21 03:44 Pappenheimer Bodies Not Reportable 06/08/21 03:44 Sickle Cells Not Reportable 06/08/21 03:44 Target Cells Not Reportable 06/08/21 03:44 Tear Drop Cells Not Reportable 06/08/21 03:44 Ovalocytes Not Reportable 06/08/21 03:44 Helmet Cells Not Reportable 06/08/21 03:44 [place] Bodies Not Reportable 06/08/21 03:44 [place] Rings Not Reportable 06/08/21 03:44 Barbie Cells Not Reportable 06/08/21 03:44 Bite Cells Not Reportable 06/08/21 03:44 Crenated Cell Not Reportable 06/08/21 03:44 Elliptocytes Not Reportable 06/08/21 03:44 Acanthocytes (Spur) Not Reportable 06/08/21 03:44 Rouleaux Not Reportable 06/08/21 03:44 Hemoglobin C Crystals Not Reportable 06/08/21 03:44 Schistocytes Not Reportable 06/08/21 03:44 Malaria parasites Not Reportable 06/08/21 03:44 Luis Bodies Not Reportable 06/08/21 03:44 Hem Pathologist Commnt No 06/08/21 03:44 D-Dimer 5334.05 ng/mlDDU (0-234) H 06/07/21 19:11 Sodium 139 mmol/L (137-145) 06/09/21 08:42 Potassium 4.9 mmol/L (3.6-5.0) 06/09/21 08:42 Chloride 104.2 mmol/L (98-107) 06/09/21 08:42 Carbon Dioxide 17 mmol/L (22-30) L 06/09/21 08:42 Anion Gap 23 mmol/L 06/09/21 08:42 BUN 74 mg/dL (7-17) H 06/09/21 08:42 Creatinine 3.7 mg/dL (0.6-1.2) H 06/09/21 08:42 Estimated GFR 15 ml/min 06/09/21 08:42 BUN/Creatinine Ratio 20 % 06/09/21 08:42 Glucose 259 mg/dL (65-100) H 06/09/21 08:42 POC Glucose 274 mg/dL (70-105) H 06/09/21 12:05 Hemoglobin A1c 9.5 % (4-6) H 06/07/21 19:11 Calcium 8.3 mg/dL (8.4-10.2) L 06/09/21 08:42 Phosphorus 4.50 mg/dL (2.5-4.5) 06/09/21 08:42 Ferritin 1230.0 ng/mL (10.0-200.0) H 06/07/21 19:11 Total Bilirubin 0.30 mg/dL (0.1-1.2) 06/08/21 03:44 AST 29 units/L (5-40) 06/08/21 03:44 ALT 19 units/L (7-56) 06/08/21 03:44 Alkaline Phosphatase 58 units/L (35-129) 06/08/21 03:44 Lactate Dehydrogenase 796 units/L (91-180) H 06/07/21 19:11 Troponin T 0.021 ng/mL (0.00-0.029) 06/08/21 13:49 C-Reactive Protein 19.60 mg/dL (0.00-1.30) H 06/07/21 19:11 Total Protein 7.9 g/dL (6.3-8.2) 06/08/21 03:44 Albumin 3.4 g/dL (3.9-5) L 06/08/21 03:44 Albumin/Globulin Ratio 0.8 % 06/08/21 03:44 Triglycerides 209 mg/dL (2-149) H 06/07/21 19:11 Cholesterol 165 mg/dL (50-199) 06/07/21 19:11 LDL Cholesterol Direct 79 mg/dL (50-130) 06/07/21 19:11 HDL Cholesterol 35 mg/dL (40-59) L 06/07/21 19:11 Cholesterol/HDL Ratio 4.71 % 06/07/21 19:11 Procalcitonin 0.91 ng/mL (<0.15) 06/07/21 19:11 Coronavirus (PCR) Positive (Negative) A 06/08/21 08:30 Blood Type B POSITIVE 06/07/21 22:34 Antibody Screen Negative 06/07/21 22:34 Roland/IV: Voiding Method External Female Catheter Active Medications - Current Medications Current Medications: Generic Name Dose Route Start Last Admin Trade Name Freq PRN Reason Stop Dose Admin Acetaminophen 650 mg 06/07/21 21:41 Acetaminophen 325 Mg Tab PO Q4H PRN Pain MILD(1-3)/Fever >100.5/MARTÍNEZ Albuterol 2 puff 06/07/21 23:00 Albuterol 8.5 Gm Mdi Inhalation IH Q4HRT PRN Shortness Of Breath Alprazolam 0.125 mg 06/07/21 22:33 Alprazolam 0.25 Mg Tab PO Q8H PRN Anxiety Apixaban 5 mg 06/08/21 10:00 06/09/21 09:04 Apixaban 5 Mg Tab PO 5 mg BID LEONOR Administration Atorvastatin Calcium 10 mg 06/08/21 10:00 06/09/21 09:04 Atorvastatin 10 Mg Tab PO 10 mg DAILY LEONOR Administration Carvedilol 3.125 mg 06/07/21 22:00 06/09/21 09:04 Carvedilol 3.125 Mg Tab PO 3.125 mg BID LEONOR Administration Dexamethasone 8 mg 06/08/21 10:00 06/09/21 09:04 Dexamethasone 4 Mg/Ml Vial IV 06/16/21 10:01 8 mg Q24HR LEONOR Administration Dextrose 50 ml 06/08/21 12:04 Dextrose 50% In Water (25gm) 50 Ml Syringe IV Q30MIN PRN Hypoglycemia Protocol Docusate Sodium 100 mg 06/07/21 21:33 Docusate Sodium 100 Mg Cap PO BID PRN Constipation Famotidine 10 mg 06/08/21 10:00 06/09/21 09:03 Famotidine 20 Mg/2 Ml Inj IV 10 mg BID LEONOR Administration Guaifenesin 10 ml 06/09/21 00:15 06/09/21 00:35 Guaifenesin Dm 200/20 Mg Oral Liqd 10 Ml PO 10 ml Q4H PRN Administration Cough Hydralazine HCl 25 mg 06/07/21 22:00 06/09/21 05:39 Hydralazine 25 Mg Tab PO 25 mg Q8HR LEONOR Administration Hydromorphone HCl 0.5 mg 06/07/21 21:41 Hydromorphone 1 Mg/1 Ml Inj IV Q3H PRN Pain , Severe (7-10) Hydromorphone HCl 0.25 mg 06/07/21 22:33 Hydromorphone 1 Mg/1 Ml Inj IV Q4H PRN Pain, Moderate (4-6) Sodium Chloride 1,000 mls @ 100 mls/hr 06/07/21 21:45 06/09/21 05:38 Nacl 0.9% 1000 Ml IV 100 mls/hr DIRECT LEONOR Administration Azithromycin 500 mg in 250 mls @ 250 mls/hr 06/08/21 22:00 06/08/21 22:35 Zithromax/Ns IV 06/09/21 23:59 250 mls/hr QHS LEONOR Administration Ceftriaxone Sodium 2 gm in 100 mls @ 200 mls/hr 06/08/21 22:00 06/08/21 22:34 Rocephin/Ns 2 Gm/100 Ml IV 06/11/21 22:29 200 mls/hr QHS LEONOR Administration Protocol TOCILIZUMAB 800 mg/ Sodium 140 mls @ 120 mls/hr 06/09/21 13:45 Chloride IV 06/09/21 14:54 ONCE ONE Insulin Human Isoph/Insulin Regular 55 unit 06/09/21 08:00 06/09/21 09:05 Insulin Nph/Regular 70/30 Inj SUB-Q 55 unit QDDIAB LEONOR Administration Insulin Human Regular 0 units 06/08/21 12:15 06/09/21 09:03 Insulin Regular, Human 100 Units/1 Ml SUB-Q 3 units ACHS LEONOR Administration Protocol Levothyroxine Sodium 75 mcg 06/08/21 06:00 06/09/21 05:36 Levothyroxine 75 Mcg Tab PO 75 mcg QAM@0600 LEONOR Administration Levothyroxine Sodium 200 mcg 06/08/21 06:00 06/09/21 05:36 Levothyroxine 100 Mcg Tab PO 200 mcg DAILY@0600 LEONOR Administration Loratadine/Pseudoephedrine Sulfate 1 each 06/08/21 10:00 06/09/21 09:51 Loratadine/Pseudoephedrine 10-240 Mg Tab 24hr PO 1 each Q24HR LEONOR Administration Ondansetron HCl 4 mg 06/07/21 22:00 06/09/21 05:37 Ondansetron 4 Mg Odt Tab PO 4 mg Q8HR LEONOR Administration Ondansetron HCl 4 mg 06/07/21 21:41 Ondansetron 4 Mg/2 Ml Inj IV Q8H PRN Nausea And Vomiting Oxycodone/Acetaminophen 1 tab 06/07/21 21:41 Oxycodone /Acetaminophen 5-325mg Tab PO Q6H PRN Pain, Moderate (4-6) Sodium Chloride 10 ml 06/07/21 22:00 06/09/21 09:05 Sodium Chloride 0.9% 10 Ml Flush Syringe IV 10 ml BID LEONOR Administration Sodium Chloride 10 ml 06/07/21 21:41 Sodium Chloride 0.9% 10 Ml Flush Syringe IV PRN PRN LINE FLUSH Nutrition/Malnutrition Assess - Dietary Evaluation Nutrition/Malnutrition Findings: Nutrition Notes Start: 06/08/21 10:56 Freq: Status: Active Protocol: Document 06/09/21 11:28 GB (Rec: 06/09/21 11:34 GB [id number]) Nutrition Notes Initial or Follow up Reassessment Current Diagnosis Acute Kidney Injury,Diabetes, Sepsis,Hypertension, Respiratory Failure Other Pertinent Diagnosis COVID-19 PUI, hypothyroid Current Diet consistent CHO/cardiac, pureed texture Labs/Tests BUN 68 Cr 4.7 BG 218 06/07: A1c 9.5 Pertinent Medications Zofran NS at 10 ml/hr Height 5 ft 11 in Weight 164.654 kg Etters Body Weight (kg) 70.45 BMI 50.6 Weight change and time frame Wt stable from previous adm on 09/17/2020 Weight Status Morbidly Obese Subjective/Other Information MD consult for malnutrition. RN screen for chewing difficutly. Per previous visit , pt does not want mech soft diet and has hx of not liking Ensure. Pt on bipap. Unable to speak with pt. Burn Absent Trauma Absent Minimum of two criteria No #1 Nutrition Diagnosis Predicted suboptimal energy intake Comments: PO intake of meals recorded currently for one day at 25%, independent with meals. Etiology ARF As Evidenced by Signs and Symptoms pt on bipap Diagnosis Progress(for reassessment Continues documentation) Is patient on ventilator? No Is Patient Ambulatory and/or Out of Bed No REE-([place]-confined to bed) 2778.984 Kcal/Kg value to use for calculation 12 Approximate Energy Requirements Using 1976 kcal/Kg Calculation Used for Recommendations Kcal/kg Additional Notes Protein: (0.8-1g/kg AdjBW) 94- 117g/day Fluid: 1 ml/kcal Nutrition Intervention Change Diet Order: Continue Add Supplement/Snack (indicate name/kcal n/a - history of pt not liking /protein ) nutrition supplement beverages Goal #1 PO intake of meals to improve to 50% or greater TID daily during LOS Goal #2 Weight to maintain within +/-3 % current weight during LOS Follow-Up By: 06/14/21 Additional Comments Check for PO intake improvement for sign off. Nursing to record meal intake daily. - Attestation Statement I have reviewed and agreed w/ Malnutrition eval & tx plan: Yes
[2021-06-09] MEDS ORDERED: TOCILIZUMAB 810 MG in SODIUM CHLORIDE 0.9% 100 ML IV NR (16:00)
--- NOTE | 2021-06-09 18:36 | Ultrasound Report ---
ULTRASOUND RENAL INDICATION / CLINICAL INFORMATION: TREMAINE. COMPARISON: None available. FINDINGS: RIGHT KIDNEY: - Length = 10.5 cm. [Normal > 9.0 cm] - Parenchymal Thickness = 1.8 cm. [Normal > 1.5 cm] - Echogenicity: Normal -- hypoechoic or isoechoic to liver/spleen. - Hydronephrosis: None. - Cyst or mass: 11 mm simple cyst in the lower pole. LEFT KIDNEY: - Length = 11.0 cm. [Normal > 9.0 cm] - Parenchymal Thickness = 1.9 cm. [Normal > 1.5 cm] - Echogenicity: Normal -- hypoechoic or isoechoic to liver/spleen. - Hydronephrosis: None. - Cyst or mass: No significant abnormality. URINARY BLADDER: No significant abnormality. ADDITIONAL FINDINGS: None. IMPRESSION: No evidence of medical renal disease or hydronephrosis. Renal Parenchymal Thickness Parenchyma = Cortex + Medullary Pyramid - Normal >= 1.5 cm - Mild thinning = 1.0-1.49 cm - Moderate thinning = 0.5-0.99 cm - Severe thinning < 0.5 cm Signer Name: Justino Maya MD Signed: 06/09/2021 6:32 PM Workstation Name: [id number]
[2021-06-09] MEDS: cefTRIAXone/NS 2 GM/100 ML 2 GM/100 ML BAG IV SCH (21:33)
[2021-06-09] MEDS: AZITHROMYCIN/NS 500 MG/250 ML 500 MG/250 ML BAG IV SCH (21:34)
--- NOTE | 2021-06-10 06:15 | Progress Note ---
Assessment and Plan Assessment and plan: #COVID-19 breakthrough infection #COVID-19 pneumonia -Patient admits to being vaccinated with the [employer] vaccine earlier this year; however, several family members have been diagnosed with Covid recently -Pending Covid 19 results; continue airborne and contact isolation per COVID-19 protocol -Inflammatory markers elevated; continue to monitor every 2 to 3 days -Infectious disease consulted; appreciate recs. Acetemra started -Continue BiPAP management and wean oxygen as tolerated -Pending morning ABG to determine if ARDS is present -We will initiate steroid (prednisone 40 mg daily) treatment. Patient is not a candidate for remdesivir due to renal failure -Continue ascorbic acid, zinc sulfate, and vitamin D supplementation per COVID- 19 protocol #Acute renal failure versus acute on chronic renal failure-improving -Creatinine 3.7 (baseline unknown) -Nephrology consulted on admission; appreciate recs -Continue to monitor renal function and encouraging increased p.o. intake -Avoiding nephrotoxic medications #Acute hypoxic respiratory failure -Currently on BiPAP therapy and will wean as tolerated -Pending a.m. ABG to determine if ARDS is present -Pulmonology consulted on admission; appreciate recs -Chest x-ray revealing bilateral pneumonia concerning for COVID-19 breakthrough infection #Insulin-dependent type 2 diabetes- uncontrolled -Pending hemoglobin A1c -Started on scheduled NPH with medium sliding scale insulin -We will continue to monitor. Blood sugar goal 140-180 #Elevated troponin -Continue to trend troponins; troponins -Elevated troponins likely secondary to type II etiology -Cardiology consulted on admission; appreciate recs -TTE unchanged from previous imaging #Hypertension-controlled -Continue home antihypertensives -We will continue to follow #Hypothyroidism -Continue home medications -We will defer on testing TSH due to current medical condition #Protein calorie malnutrition -Nutrition consulted upon admission -Patient admitted to having decreased p.o. intake for approximately 1 to 2 weeks prior to admission; encouraging p.o. intake #History of DVT -Continue home Eliquis; like Eliquis will also cover for DVT prophylaxis Hospitalist Physical - Constitutional Vitals: Temp Pulse Resp BP Pulse Ox 97.6 F 78 24 124/63 86 06/09/21 22:37 06/10/21 05:20 06/10/21 05:20 06/10/21 05:20 06/10/21 05:20 General appearance: Present: no acute distress HEART Score - HEART Score History: Slightly suspicious EKG: Non-specific Age: 45-65 Risk factors: 1-2 risk factors Troponin: Troponin T 0.021 ng/mL (0.00-0.029) 06/08/21 13:49 - Critical Actions Critical Actions: 0-3 pts:0.9-1.7%risk of adverse cardiac event.Candidate for discharge Results - Labs CBC & Chem 7: 06/09/21 08:42 06/09/21 08:42 Labs: Laboratory Last Values WBC 14.7 K/mm3 (4.5-11.0) H 06/09/21 08:42 RBC 5.28 M/mm3 (3.65-5.03) H 06/09/21 08:42 Hgb 14.9 gm/dl (10.1-14.3) H 06/09/21 08:42 Hct 45.0 % (30.3-42.9) H D 06/09/21 08:42 MCV 85 fl (79-97) 06/09/21 08:42 MCH 28 pg (28-32) 06/09/21 08:42 MCHC 33 % (30-34) 06/09/21 08:42 RDW 15.1 % (13.2-15.2) 06/09/21 08:42 Plt Count 142 K/mm3 (140-440) 06/09/21 08:42 Lymph % (Auto) 4.9 % (13.4-35.0) L 06/09/21 08:42 [place] % (Auto) 4.9 % (0.0-7.3) 06/09/21 08:42 Eos % (Auto) 0.0 % (0.0-4.3) 06/09/21 08:42 Baso % (Auto) 0.2 % (0.0-1.8) 06/09/21 08:42 Lymph # (Auto) 0.7 K/mm3 (1.2-5.4) L 06/09/21 08:42 [place] # (Auto) 0.7 K/mm3 (0.0-0.8) 06/09/21 08:42 Eos # (Auto) 0.0 K/mm3 (0.0-0.4) 06/09/21 08:42 Baso # (Auto) 0.0 K/mm3 (0.0-0.1) 06/09/21 08:42 Add Manual Diff Complete 06/08/21 03:44 Total Counted 100 06/08/21 03:44 Seg Neutrophils % 90.0 % (40.0-70.0) H 06/09/21 08:42 Seg Neuts % (Manual) 95.0 % (40.0-70.0) H 06/08/21 03:44 Lymphocytes % (Manual) 3.0 % (13.4-35.0) L 06/08/21 03:44 Monocytes % (Manual) 2.0 % (0.0-7.3) 06/08/21 03:44 Nucleated RBC % Not Reportable 06/08/21 03:44 Seg Neutrophils # 13.2 K/mm3 (1.8-7.7) H 06/09/21 08:42 Seg Neutrophils # Man 12.3 K/mm3 (1.8-7.7) H 06/08/21 03:44 Band Neutrophils # 0.0 K/mm3 06/08/21 03:44 Lymphocytes # (Manual) 0.4 K/mm3 (1.2-5.4) L 06/08/21 03:44 Abs React Lymphs (Man) 0.0 K/mm3 06/08/21 03:44 Monocytes # (Manual) 0.3 K/mm3 (0.0-0.8) 06/08/21 03:44 Eosinophils # (Manual) 0.0 K/mm3 (0.0-0.4) 06/08/21 03:44 Basophils # (Manual) 0.0 K/mm3 (0.0-0.1) 06/08/21 03:44 Metamyelocytes # 0.0 K/mm3 06/08/21 03:44 Myelocytes # 0.0 K/mm3 06/08/21 03:44 Promyelocytes # 0.0 K/mm3 06/08/21 03:44 Blast Cells # 0.0 K/mm3 06/08/21 03:44 WBC Morphology Not Reportable 06/08/21 03:44 Hypersegmented Neuts Not Reportable 06/08/21 03:44 Hyposegmented Neuts Not Reportable 06/08/21 03:44 Hypogranular Neuts Not Reportable 06/08/21 03:44 Smudge Cells Not Reportable 06/08/21 03:44 Toxic Granulation Not Reportable 06/08/21 03:44 Toxic Vacuolation Not Reportable 06/08/21 03:44 Dohle Bodies Not Reportable 06/08/21 03:44 Pelger-Huet Anomaly Not Reportable 06/08/21 03:44 Nba Rods Not Reportable 06/08/21 03:44 Platelet Estimate Consistent w auto 06/08/21 03:44 Clumped Platelets Not Reportable 06/08/21 03:44 Plt Clumps, EDTA Not Reportable 06/08/21 03:44 Large Platelets Not Reportable 06/08/21 03:44 Giant Platelets Not Reportable 06/08/21 03:44 Platelet Satelliting Not Reportable 06/08/21 03:44 Plt Morphology Comment Not Reportable 06/08/21 03:44 RBC Morphology Not Reportable 06/08/21 03:44 Dimorphic RBCs Not Reportable 06/08/21 03:44 Polychromasia Not Reportable 06/08/21 03:44 Hypochromasia Not Reportable 06/08/21 03:44 Poikilocytosis Not Reportable 06/08/21 03:44 Anisocytosis Not Reportable 06/08/21 03:44 Microcytosis Not Reportable 06/08/21 03:44 Macrocytosis Not Reportable 06/08/21 03:44 Spherocytes Not Reportable 06/08/21 03:44 Pappenheimer Bodies Not Reportable 06/08/21 03:44 Sickle Cells Not Reportable 06/08/21 03:44 Target Cells Not Reportable 06/08/21 03:44 Tear Drop Cells Not Reportable 06/08/21 03:44 Ovalocytes Not Reportable 06/08/21 03:44 Helmet Cells Not Reportable 06/08/21 03:44 [place] Bodies Not Reportable 06/08/21 03:44 [place] Rings Not Reportable 06/08/21 03:44 Barbie Cells Not Reportable 06/08/21 03:44 Bite Cells Not Reportable 06/08/21 03:44 Crenated Cell Not Reportable 06/08/21 03:44 Elliptocytes Not Reportable 06/08/21 03:44 Acanthocytes (Spur) Not Reportable 06/08/21 03:44 Rouleaux Not Reportable 06/08/21 03:44 Hemoglobin C Crystals Not Reportable 06/08/21 03:44 Schistocytes Not Reportable 06/08/21 03:44 Malaria parasites Not Reportable 06/08/21 03:44 Luis Bodies Not Reportable 06/08/21 03:44 Hem Pathologist Commnt No 06/08/21 03:44 D-Dimer 5334.05 ng/mlDDU (0-234) H 06/07/21 19:11 ABG pH 7.395 (7.320-7.450) 06/09/21 12:19 POC ABG pCO2 34.2 mmHg (32.0-48.0) 06/09/21 12:19 POC ABG pO2 71.4 mmHg (83-108) L 06/09/21 12:19 POC ABG HCO3 20.5 06/09/21 12:19 ABG O2 Saturation 93.6 (0-100) 06/09/21 12:19 POC ABG Base Excess -3.6 06/09/21 12:19 ABG Hemoglobin 13.2 (12.0-17.5) 06/09/21 12:19 ABG Oxyhemoglobin 92.9 (94-98) L 06/09/21 12:19 ABG Methemoglobin 0.3 (0.0-1.5) 06/09/21 12:19 ABG Sodium 143.5 mmol/L (136.0-145.0) 06/09/21 12:19 ABG Potassium 3.6 mmol/L (3.40-4.50) 06/09/21 12:19 ABG Chloride 109.0 mmol/L (98-107) H 06/09/21 12:19 ABG Glucose 287 mg/dL (65-95) H 06/09/21 12:19 Carboxyhemoglobin 0.4 (0.5-1.5) L 06/09/21 12:19 FiO2 % 75.0 06/09/21 12:19 Sodium 139 mmol/L (137-145) 06/09/21 08:42 Potassium 4.9 mmol/L (3.6-5.0) 06/09/21 08:42 Chloride 104.2 mmol/L (98-107) 06/09/21 08:42 Carbon Dioxide 17 mmol/L (22-30) L 06/09/21 08:42 Anion Gap 23 mmol/L 06/09/21 08:42 BUN 74 mg/dL (7-17) H 06/09/21 08:42 Creatinine 3.7 mg/dL (0.6-1.2) H 06/09/21 08:42 Estimated GFR 15 ml/min 06/09/21 08:42 BUN/Creatinine Ratio 20 % 06/09/21 08:42 Glucose 259 mg/dL (65-100) H 06/09/21 08:42 POC Glucose 263 mg/dL (70-105) H 06/09/21 21:06 Hemoglobin A1c 9.5 % (4-6) H 06/07/21 19:11 Calcium 8.3 mg/dL (8.4-10.2) L 06/09/21 08:42 Phosphorus 4.50 mg/dL (2.5-4.5) 06/09/21 08:42 Ferritin 1230.0 ng/mL (10.0-200.0) H 06/07/21 19:11 Total Bilirubin 0.30 mg/dL (0.1-1.2) 06/08/21 03:44 AST 29 units/L (5-40) 06/08/21 03:44 ALT 19 units/L (7-56) 06/08/21 03:44 Alkaline Phosphatase 58 units/L (35-129) 06/08/21 03:44 Lactate Dehydrogenase 796 units/L (91-180) H 06/07/21 19:11 Troponin T 0.021 ng/mL (0.00-0.029) 06/08/21 13:49 C-Reactive Protein 19.60 mg/dL (0.00-1.30) H 06/07/21 19:11 Total Protein 7.9 g/dL (6.3-8.2) 06/08/21 03:44 Albumin 3.4 g/dL (3.9-5) L 06/08/21 03:44 Albumin/Globulin Ratio 0.8 % 06/08/21 03:44 Triglycerides 209 mg/dL (2-149) H 06/07/21 19:11 Cholesterol 165 mg/dL (50-199) 06/07/21 19:11 LDL Cholesterol Direct 79 mg/dL (50-130) 06/07/21 19:11 HDL Cholesterol 35 mg/dL (40-59) L 06/07/21 19:11 Cholesterol/HDL Ratio 4.71 % 06/07/21 19:11 Procalcitonin 0.91 ng/mL (<0.15) 06/07/21 19:11 Arterial Blood Glucose 287 mg/dL (65-95) H 06/09/21 12:19 Coronavirus (PCR) Positive (Negative) A 06/08/21 08:30 Blood Type B POSITIVE 06/07/21 22:34 Antibody Screen Negative 06/07/21 22:34 Roland/IV: Voiding Method Incontinent Active Medications - Current Medications Current Medications: Generic Name Dose Route Start Last Admin Trade Name Freq PRN Reason Stop Dose Admin Acetaminophen 650 mg 06/07/21 21:41 Acetaminophen 325 Mg Tab PO Q4H PRN Pain MILD(1-3)/Fever >100.5/MARTÍNEZ Albuterol 2 puff 06/07/21 23:00 Albuterol 8.5 Gm Mdi Inhalation IH Q4HRT PRN Shortness Of Breath Alprazolam 0.125 mg 06/07/21 22:33 Alprazolam 0.25 Mg Tab PO Q8H PRN Anxiety Apixaban 5 mg 06/08/21 10:00 06/09/21 21:31 Apixaban 5 Mg Tab PO 5 mg BID LEONOR Administration Atorvastatin Calcium 10 mg 06/08/21 10:00 06/09/21 09:04 Atorvastatin 10 Mg Tab PO 10 mg DAILY LEONOR Administration Carvedilol 3.125 mg 06/07/21 22:00 06/09/21 21:31 Carvedilol 3.125 Mg Tab PO 3.125 mg BID LEONOR Administration Dexamethasone 8 mg 06/08/21 10:00 06/09/21 09:04 Dexamethasone 4 Mg/Ml Vial IV 06/16/21 10:01 8 mg Q24HR LEONOR Administration Dextrose 50 ml 06/08/21 12:04 Dextrose 50% In Water (25gm) 50 Ml Syringe IV Q30MIN PRN Hypoglycemia Protocol Docusate Sodium 100 mg 06/07/21 21:33 Docusate Sodium 100 Mg Cap PO BID PRN Constipation Famotidine 10 mg 06/08/21 10:00 06/09/21 21:32 Famotidine 20 Mg/2 Ml Inj IV 10 mg BID LEONOR Administration Guaifenesin 10 ml 06/09/21 00:15 06/09/21 21:33 Guaifenesin Dm 200/20 Mg Oral Liqd 10 Ml PO 10 ml Q4H PRN Administration Cough Hydralazine HCl 25 mg 06/07/21 22:00 06/09/21 21:31 Hydralazine 25 Mg Tab PO 25 mg Q8HR LEONOR Administration Hydromorphone HCl 0.5 mg 06/07/21 21:41 Hydromorphone 1 Mg/1 Ml Inj IV Q3H PRN Pain , Severe (7-10) Hydromorphone HCl 0.25 mg 06/07/21 22:33 Hydromorphone 1 Mg/1 Ml Inj IV Q4H PRN Pain, Moderate (4-6) Sodium Chloride 1,000 mls @ 100 mls/hr 06/07/21 21:45 06/09/21 17:20 Nacl 0.9% 1000 Ml IV 100 mls/hr DIRECT LEONOR Administration Ceftriaxone Sodium 2 gm in 100 mls @ 200 mls/hr 06/08/21 22:00 06/09/21 21:33 Rocephin/Ns 2 Gm/100 Ml IV 06/11/21 22:29 200 mls/hr QHS LEONOR Administration Protocol Insulin Human Isoph/Insulin Regular 55 unit 06/09/21 08:00 06/09/21 09:05 Insulin Nph/Regular 70/30 Inj SUB-Q 55 unit QDDIAB LEONOR Administration Insulin Human Regular 0 units 06/08/21 12:15 06/09/21 21:51 Insulin Regular, Human 100 Units/1 Ml SUB-Q 4 units ACHS LEONOR Administration Protocol Levothyroxine Sodium 75 mcg 06/08/21 06:00 06/09/21 05:36 Levothyroxine 75 Mcg Tab PO 75 mcg QAM@0600 LEONOR Administration Levothyroxine Sodium 200 mcg 06/08/21 06:00 06/09/21 05:36 Levothyroxine 100 Mcg Tab PO 200 mcg DAILY@0600 LEONOR Administration Loratadine/Pseudoephedrine Sulfate 1 each 06/08/21 10:00 06/09/21 09:51 Loratadine/Pseudoephedrine 10-240 Mg Tab 24hr PO 1 each Q24HR LEONOR Administration Ondansetron HCl 4 mg 06/07/21 22:00 06/09/21 21:31 Ondansetron 4 Mg Odt Tab PO 4 mg Q8HR LEONOR Administration Ondansetron HCl 4 mg 06/07/21 21:41 Ondansetron 4 Mg/2 Ml Inj IV Q8H PRN Nausea And Vomiting Oxycodone/Acetaminophen 1 tab 06/07/21 21:41 06/09/21 17:05 Oxycodone /Acetaminophen 5-325mg Tab PO 1 tab Q6H PRN Administration Pain, Moderate (4-6) Sodium Chloride 10 ml 06/07/21 22:00 06/09/21 21:33 Sodium Chloride 0.9% 10 Ml Flush Syringe IV 10 ml BID LEONOR Administration Sodium Chloride 10 ml 06/07/21 21:41 Sodium Chloride 0.9% 10 Ml Flush Syringe IV PRN PRN LINE FLUSH Nutrition/Malnutrition Assess - Dietary Evaluation Nutrition/Malnutrition Findings: Nutrition Notes Start: 06/08/21 10:56 Freq: Status: Active Protocol: Document 06/09/21 11:28 GB (Rec: 06/09/21 11:34 GB [email or web address]) Nutrition Notes Initial or Follow up Reassessment Current Diagnosis Acute Kidney Injury,Diabetes, Sepsis,Hypertension, Respiratory Failure Other Pertinent Diagnosis COVID-19 PUI, hypothyroid Current Diet consistent CHO/cardiac, pureed texture Labs/Tests BUN 68 Cr 4.7 BG 218 06/07: A1c 9.5 Pertinent Medications Zofran NS at 10 ml/hr Height 5 ft 11 in Weight 164.654 kg [place] Body Weight (kg) 70.45 BMI 50.6 Weight change and time frame Wt stable from previous adm on 09/17/2020 Weight Status Morbidly Obese Subjective/Other Information MD consult for malnutrition. RN screen for chewing difficutly. Per previous visit , pt does not want mech soft diet and has hx of not liking Ensure. Pt on bipap. Unable to speak with pt. Burn Absent Trauma Absent Minimum of two criteria No #1 Nutrition Diagnosis Predicted suboptimal energy intake Comments: PO intake of meals recorded currently for one day at 25%, independent with meals. Etiology ARF As Evidenced by Signs and Symptoms pt on bipap Diagnosis Progress(for reassessment Continues documentation) Is patient on ventilator? No Is Patient Ambulatory and/or Out of Bed No REE-([place]-confined to bed) 2778.984 Kcal/Kg value to use for calculation 12 Approximate Energy Requirements Using 1976 kcal/Kg Calculation Used for Recommendations Kcal/kg Additional Notes Protein: (0.8-1g/kg AdjBW) 94- 117g/day Fluid: 1 ml/kcal Nutrition Intervention Change Diet Order: Continue Add Supplement/Snack (indicate name/kcal n/a - history of pt not liking /protein ) nutrition supplement beverages Goal #1 PO intake of meals to improve to 50% or greater TID daily during LOS Goal #2 Weight to maintain within +/-3 % current weight during LOS Follow-Up By: 06/14/21 Additional Comments Check for PO intake improvement for sign off. Nursing to record meal intake daily. - Attestation Statement I have reviewed and agreed w/ Malnutrition eval & tx plan: Yes
[2021-06-10] MEDS: LEVOTHYROXINE 75 MCG TAB PO SCH (06:23)
[2021-06-10] MEDS: LEVOTHYROXINE 100 MCG TAB PO SCH (06:23)
[2021-06-10] MEDS: ONDANSETRON 4 MG/2 ML INJ IV PRN (06:24)
[2021-06-10] MEDS: SODIUM CHLORIDE 0.9% 1000 ML 1,000 ML IV SCH ×2 (06:26→16:56)
[2021-06-10] MEDS: hydrALAZINE 25 MG TAB PO SCH ×3 (06:30→22:54)
[2021-06-10] MEDS: ONDANSETRON 4 MG ODT TAB PO SCH ×3 (06:30→22:54)
[2021-06-10] MEDS: INSULIN REGULAR, HUMAN 100 UNITS/1 ML SUB-Q SCH ×4 (09:32→22:53)
[2021-06-10] MEDS: INSULIN NPH/REGULAR 70/30 INJ SUB-Q SCH (09:32)
[2021-06-10] MEDS: dexAMETHasone 4 MG/ML VIAL IV SCH (09:34)
[2021-06-10] MEDS: carvediloL 3.125 MG TAB PO SCH ×2 (09:34→22:54)
[2021-06-10] MEDS: FAMOTIDINE 20 MG/2 ML INJ IV SCH ×2 (09:34→23:00)
[2021-06-10] MEDS: APIXABAN 5 MG TAB PO SCH ×2 (09:34→22:54)
[2021-06-10] MEDS: guaiFENesin DM 200/20 MG ORAL LIQD 10 ML PO PRN ×4 (09:43→22:54)
--- NOTE | 2021-06-10 11:01 | Progress Note ---
Assessment and Plan #Suspected COVID-19 breakthrough infection #COVID-19 pneumonia #Acute renal failure versus acute on chronic renal failure #Acute hypoxic respiratory failure #Insulin-dependent type 2 diabetes- uncontrolled #Elevated troponin #Hypertension-controlled #Hypothyroidism #Protein calorie malnutrition labs are pending this AM will start sodium bicarb tabs renal US -ve for hydronephrosis renally dose meds strict I&O daily weight no indication for [employer]GER. Subjective Date of service: 06/10/21 Principal diagnosis: TREMAINE Interval history: cont to require O2 supplement Objective - Vital Signs Vital signs: Vital Signs - 12hr 06/10/21 06/10/21 06/10/21 05:12 05:20 09:34 Pulse Rate 78 84 Respiratory 24 Rate Blood Pressure 124/63 O2 Sat by Pulse 92 86 Oximetry - Lab 06/09/21 08:42 06/09/21 08:42 Most recent lab results ABG pH 7.395 (7.320-7.450) 06/09/21 12:19 ABG O2 Saturation 93.6 (0-100) 06/09/21 12:19 Calcium 8.3 mg/dL (8.4-10.2) L 06/09/21 08:42 Phosphorus 4.50 mg/dL (2.5-4.5) 06/09/21 08:42 Medications & Allergies - Medications Allergies/Adverse Reactions: Allergies latex Allergy (Verified 03/19/19 17:03) Unknown shellfish derived Allergy (Verified 03/19/19 17:03) Anaphylaxis strawberry Allergy (Verified 03/19/19 17:03) Anaphylaxis tomato Allergy (Verified 03/19/19 17:03) Anaphylaxis nuts Allergy (Uncoded 03/19/19 17:03) Anaphylaxis Home Medications: Home Medications Medication Instructions Recorded Confirmed Last Taken Type Albuterol Sulfate [Ventolin HFA] 2 puff IH Q4H PRN 01/29/14 09/13/19 02/01/15 History Levothyroxine (Nf) [Synthroid (Nf)] 275 mcg PO QAM 01/29/14 09/13/19 02/01/15 History Fluticasone/Salmeterol [Advair 1 each IH PRN PRN 01/26/15 09/13/19 02/02/15 10:00 History Diskus 250-50 mcg] Apixaban [Eliquis starter pack] 5 mg PO BID 09/13/19 09/13/19 Unknown History Insulin Aspart Prot/Insuln Asp 45 unit SUB-Q QAM 09/13/19 09/13/19 Unknown History [Novolog Mix 70-30 Flexpen] Insulin Glargine,Hum.rec.anlog 25 unit SQ HS 09/13/19 09/13/19 Unknown History [Basaglar Kwikpen U-100] Lovastatin [Altoprev] 20 mg PO DAILY 09/13/19 09/13/19 Unknown History Docusate Sodium [Colace CAP] 100 mg PO BID PRN #30 capsule 09/17/19 Unknown Rx Loratadine/Pseudoephedrine 1 each PO Q24HR #10 tablet 09/17/19 Unknown Rx [Claritin-D 24HR] Ondansetron [Zofran Odt] 4 mg PO Q8HR #20 tab.rapdis 09/17/19 Unknown Rx carvediloL [Coreg] 3.125 mg PO BID #60 tablet 09/17/19 Unknown Rx hydrALAZINE [Apresoline TAB] 25 mg PO Q8HR #90 tablet 09/17/19 Unknown Rx Active Medications: Generic Name Dose Route Start Last Admin Trade Name Freq PRN Reason Stop Dose Admin Acetaminophen 650 mg 06/07/21 21:41 Acetaminophen 325 Mg Tab PO Q4H PRN Pain MILD(1-3)/Fever >100.5/MARTÍNEZ Albuterol 2 puff 06/07/21 23:00 Albuterol 8.5 Gm Mdi Inhalation IH Q4HRT PRN Shortness Of Breath Alprazolam 0.125 mg 06/07/21 22:33 Alprazolam 0.25 Mg Tab PO Q8H PRN Anxiety Apixaban 5 mg 06/08/21 10:00 06/10/21 09:34 Apixaban 5 Mg Tab PO 5 mg BID LEONOR Administration Atorvastatin Calcium 10 mg 06/08/21 10:00 06/10/21 09:34 Atorvastatin 10 Mg Tab PO 10 mg DAILY LEONOR Administration Carvedilol 3.125 mg 06/07/21 22:00 06/10/21 09:34 Carvedilol 3.125 Mg Tab PO 3.125 mg BID LEONOR Administration Dexamethasone 8 mg 06/08/21 10:00 06/10/21 09:34 Dexamethasone 4 Mg/Ml Vial IV 06/16/21 10:01 8 mg Q24HR LEONOR Administration Dextrose 50 ml 06/08/21 12:04 Dextrose 50% In Water (25gm) 50 Ml Syringe IV Q30MIN PRN Hypoglycemia Protocol Docusate Sodium 100 mg 06/07/21 21:33 Docusate Sodium 100 Mg Cap PO BID PRN Constipation Famotidine 10 mg 06/08/21 10:00 06/10/21 09:34 Famotidine 20 Mg/2 Ml Inj IV 10 mg BID LEONOR Administration Guaifenesin 10 ml 06/09/21 00:15 06/10/21 09:43 Guaifenesin Dm 200/20 Mg Oral Liqd 10 Ml PO 10 ml Q4H PRN Administration Cough Hydralazine HCl 25 mg 06/07/21 22:00 06/10/21 06:30 Hydralazine 25 Mg Tab PO 25 mg Q8HR LEONOR Administration Hydromorphone HCl 0.5 mg 06/07/21 21:41 Hydromorphone 1 Mg/1 Ml Inj IV Q3H PRN Pain , Severe (7-10) Hydromorphone HCl 0.25 mg 06/07/21 22:33 Hydromorphone 1 Mg/1 Ml Inj IV Q4H PRN Pain, Moderate (4-6) Sodium Chloride 1,000 mls @ 100 mls/hr 06/07/21 21:45 06/10/21 06:26 Nacl 0.9% 1000 Ml IV 100 mls/hr DIRECT LEONOR Administration Ceftriaxone Sodium 2 gm in 100 mls @ 200 mls/hr 06/08/21 22:00 06/09/21 21:33 Rocephin/Ns 2 Gm/100 Ml IV 06/11/21 22:29 200 mls/hr QHS LEONOR Administration Protocol Insulin Human Isoph/Insulin Regular 55 unit 06/09/21 08:00 06/10/21 09:32 Insulin Nph/Regular 70/30 Inj SUB-Q 55 unit QDDIAB LEONOR Administration Insulin Human Regular 0 units 06/08/21 12:15 06/10/21 09:32 Insulin Regular, Human 100 Units/1 Ml SUB-Q 4 units ACHS LEONOR Administration Protocol Levothyroxine Sodium 75 mcg 06/08/21 06:00 06/10/21 06:23 Levothyroxine 75 Mcg Tab PO 75 mcg QAM@0600 LEONOR Administration Levothyroxine Sodium 200 mcg 06/08/21 06:00 06/10/21 06:23 Levothyroxine 100 Mcg Tab PO 200 mcg DAILY@0600 LEONOR Administration Loratadine/Pseudoephedrine Sulfate 1 each 06/08/21 10:00 06/09/21 09:51 Loratadine/Pseudoephedrine 10-240 Mg Tab 24hr PO 1 each Q24HR LEONOR Administration Ondansetron HCl 4 mg 06/07/21 22:00 06/10/21 06:30 Ondansetron 4 Mg Odt Tab PO Not Given Q8HR LEONOR Ondansetron HCl 4 mg 06/07/21 21:41 06/10/21 06:24 Ondansetron 4 Mg/2 Ml Inj IV 4 mg Q8H PRN Administration Nausea And Vomiting Oxycodone/Acetaminophen 1 tab 06/07/21 21:41 06/09/21 17:05 Oxycodone /Acetaminophen 5-325mg Tab PO 1 tab Q6H PRN Administration Pain, Moderate (4-6) Sodium Chloride 10 ml 06/07/21 22:00 06/10/21 09:35 Sodium Chloride 0.9% 10 Ml Flush Syringe IV 10 ml BID LEONOR Administration Sodium Chloride 10 ml 06/07/21 21:41 Sodium Chloride 0.9% 10 Ml Flush Syringe IV PRN PRN LINE FLUSH
--- NOTE | 2021-06-10 12:22 | Progress Note ---
Assessment and Plan Cultures: SARS CoV2 PCR positive Assessment: 61-year-old female with history of diabetes mellitus, hypertension, hyperlipidemia, hypothyroidism, vaccinated for COVID-19 with [employer] 2020, admitted on 06/07/2021 secondary to a week history of malaise, chills, fever cough, shortness of breath: #Severe sepsis : likely due to bilateral pneumonia. #Severe breakthrough COVID pneumonia: CXR with bilateral multifocal pneumonia. Infllammatory markers elevated. D-dimer 5334. CRP 19.6. #Acute hypoxemic respiratory failure: Requiring BiPAP/HFNC. #TREMAINE: from sepsis/COVID #Diabetes mellitus: Uncontrolled. Glucose 244. A1c 9.5. #Morbid obesity Recommendations: -Status post Actemra 06/09/2021 -Continue dexamethasone IV/PO daily for 10 days -No indication for remdesivir due to renal failure -Monitor inflammatory markers - ferritin, D-dimer, CRP -Continue anticoagulation per System Protocol -Continue ceftriaxone for 5 days and azithromycin for 3 days, however procalcitonin elevation may be related to TREMAINE -guarded prognosis Hollie Oviedo MD, FACP [facility] O: [phone] F: [phone] Subjective Date of service: 06/10/21 Principal diagnosis: TREMAINE Interval history: No fever. Remains on high flow nasal cannula. Objective - Exam Narrative Exam: Physical Exam (reviewed in chart to minimize risk of transmission) Constitutional: deferred Head, Ears, Nose: deferred Eyes: deferred Neck: deferred Oral: deferred Cardiovascular: deferred Respiratory: deferred GI: deferred Musculoskeletal: deferred Skin: deferred Hem/Lymphatic: deferred Psych: deferred Neurological: deferred - Constitutional Vitals: Vital Signs Temp Pulse Resp BP Pulse Ox 97.6 F 84 24 124/63 86 06/09/21 22:37 06/10/21 09:34 06/10/21 05:20 06/10/21 05:20 06/10/21 05:20 Temperature -Last 24 Hours Temperature 97.6 F - Labs CBC & Chem 7: 06/09/21 08:42 06/09/21 08:42 Labs: Abnormal lab results 06/09/21 06/09/21 06/09/21 Range/Units 12:19 16:59 21:06 POC ABG pO2 71.4 L (83-108) mmHg ABG Oxyhemoglobin 92.9 L (94-98) ABG Chloride 109.0 H (98-107) mmol/L ABG Glucose 287 H (65-95) mg/dL Carboxyhemoglobin 0.4 L (0.5-1.5) POC Glucose 268 H 263 H (70-105) mg/dL Arterial Blood Glucose 287 H (65-95) mg/dL 06/10/21 06/10/21 Range/Units 08:25 12:07 POC ABG pO2 (83-108) mmHg ABG Oxyhemoglobin (94-98) ABG Chloride (98-107) mmol/L ABG Glucose (65-95) mg/dL Carboxyhemoglobin (0.5-1.5) POC Glucose 280 H 247 H (70-105) mg/dL Arterial Blood Glucose (65-95) mg/dL
[2021-06-10] MEDS: SODIUM BICARBONATE 650 MG TAB PO SCH ×2 (13:19→22:54)
[2021-06-10] MEDS: LORATADINE/PSEUDOEPHEDRINE 10-240 MG TAB 24HR PO SCH (13:19)
--- NOTE | 2021-06-10 14:49 | Progress Note ---
Assessment and Plan Assessment and plan: #COVID-19 breakthrough infection #COVID-19 pneumonia -Patient admits to being vaccinated with the [employer] vaccine earlier this year; however, several family members have been diagnosed with Covid recently -continue airborne and contact isolation per COVID-19 protocol -Inflammatory markers elevated; continue to monitor every 2 to 3 days -Infectious disease consulted; appreciate recs. Acetemra given on 06/09/2021 -Continue BiPAP management and wean oxygen as tolerated -Pending morning ABG to determine if ARDS is present -We will initiate steroid (prednisone 40 mg daily) treatment. Patient is not a candidate for remdesivir due to renal failure -Continue ascorbic acid, zinc sulfate, and vitamin D supplementation per COVID- 19 protocol #Acute renal failure versus acute on chronic renal failure -Creatinine 3.7 (baseline unknown) -Nephrology consulted on admission; appreciate recs -Continue to monitor renal function and encouraging increased p.o. intake -Avoiding nephrotoxic medications #Acute hypoxic respiratory failure -Currently on BiPAP therapy and will wean as tolerated -Pending a.m. ABG to determine if ARDS is present -Pulmonology consulted on admission; appreciate recs -Chest x-ray revealing bilateral pneumonia concerning for COVID-19 breakthrough infection #Insulin-dependent type 2 diabetes- uncontrolled -Pending hemoglobin A1c -Continue scheduled NPH with medium sliding scale insulin -We will continue to monitor. Blood sugar goal 140-180 #Elevated troponin-resolved -Elevated troponins likely secondary to type II etiology -Cardiology consulted on admission; appreciate recs -TTE unchanged from previous imaging #Hypertension-controlled -Continue home antihypertensives -We will continue to follow #Hypothyroidism -Continue home medications -We will defer on testing TSH due to current medical condition #Protein calorie malnutrition -Nutrition consulted upon admission -Patient admitted to having decreased p.o. intake for approximately 1 to 2 weeks prior to admission; encouraging p.o. intake #History of DVT -Continue home Eliquis; like Eliquis will also cover for DVT prophylaxis #Discharge planning -Consulted physical therapy to evaluate. Disposition Plan: Continue medical management History Interval history: No acute events overnight. Hospitalist Physical - Constitutional Vitals: Temp Pulse Resp BP Pulse Ox 98.9 F 78 18 156/70 98 06/10/21 12:58 06/10/21 12:58 06/10/21 12:58 06/10/21 12:58 06/10/21 12:58 General appearance: Present: no acute distress - EENT Eyes: Present: PERRL, EOM intact ENT: hearing intact, clear oral mucosa, dentition normal - Neck Neck: Present: supple, normal ROM - Respiratory Respiratory effort: labored Respiratory: bilateral: diminished (Difficult to auscultate given body habitus), rhonchi, negative: CTA, rales, wheezing - Cardiovascular Rhythm: regular Heart Sounds: Present: S1 & S2 - Extremities Extremities: no ischemia, pulses intact, pulses symmetrical, No edema, normal temperature, normal color Peripheral Pulses: within normal limits - Abdominal General gastrointestinal: soft, non-tender, non-distended, normal bowel sounds (Difficult to assess given body habitus) - Integumentary Integumentary: Present: clear, warm, dry - Psychiatric Psychiatric: appropriate mood/affect, intact judgment & insight, memory intact, cooperative - Neurologic Neurologic: CNII-XII intact, moves all extremities - Allied Health Allied health notes reviewed: nursing HEART Score - HEART Score EKG: Non-specific Age: 45-65 Risk factors: 1-2 risk factors Troponin: Troponin T 0.021 ng/mL (0.00-0.029) 06/08/21 13:49 - Critical Actions Critical Actions: 0-3 pts:0.9-1.7%risk of adverse cardiac event.Candidate for discharge Results - Labs CBC & Chem 7: 06/09/21 08:42 06/09/21 08:42 Labs: Laboratory Last Values WBC 14.7 K/mm3 (4.5-11.0) H 06/09/21 08:42 RBC 5.28 M/mm3 (3.65-5.03) H 06/09/21 08:42 Hgb 14.9 gm/dl (10.1-14.3) H 06/09/21 08:42 Hct 45.0 % (30.3-42.9) H D 06/09/21 08:42 MCV 85 fl (79-97) 06/09/21 08:42 MCH 28 pg (28-32) 06/09/21 08:42 MCHC 33 % (30-34) 06/09/21 08:42 RDW 15.1 % (13.2-15.2) 06/09/21 08:42 Plt Count 142 K/mm3 (140-440) 06/09/21 08:42 Lymph % (Auto) 4.9 % (13.4-35.0) L 06/09/21 08:42 [place] % (Auto) 4.9 % (0.0-7.3) 06/09/21 08:42 Eos % (Auto) 0.0 % (0.0-4.3) 06/09/21 08:42 Baso % (Auto) 0.2 % (0.0-1.8) 06/09/21 08:42 Lymph # (Auto) 0.7 K/mm3 (1.2-5.4) L 06/09/21 08:42 [place] # (Auto) 0.7 K/mm3 (0.0-0.8) 06/09/21 08:42 Eos # (Auto) 0.0 K/mm3 (0.0-0.4) 06/09/21 08:42 Baso # (Auto) 0.0 K/mm3 (0.0-0.1) 06/09/21 08:42 Add Manual Diff Complete 06/08/21 03:44 Total Counted 100 06/08/21 03:44 Seg Neutrophils % 90.0 % (40.0-70.0) H 06/09/21 08:42 Seg Neuts % (Manual) 95.0 % (40.0-70.0) H 06/08/21 03:44 Lymphocytes % (Manual) 3.0 % (13.4-35.0) L 06/08/21 03:44 Monocytes % (Manual) 2.0 % (0.0-7.3) 06/08/21 03:44 Nucleated RBC % Not Reportable 06/08/21 03:44 Seg Neutrophils # 13.2 K/mm3 (1.8-7.7) H 06/09/21 08:42 Seg Neutrophils # Man 12.3 K/mm3 (1.8-7.7) H 06/08/21 03:44 Band Neutrophils # 0.0 K/mm3 06/08/21 03:44 Lymphocytes # (Manual) 0.4 K/mm3 (1.2-5.4) L 06/08/21 03:44 Abs React Lymphs (Man) 0.0 K/mm3 06/08/21 03:44 Monocytes # (Manual) 0.3 K/mm3 (0.0-0.8) 06/08/21 03:44 Eosinophils # (Manual) 0.0 K/mm3 (0.0-0.4) 06/08/21 03:44 Basophils # (Manual) 0.0 K/mm3 (0.0-0.1) 06/08/21 03:44 Metamyelocytes # 0.0 K/mm3 06/08/21 03:44 Myelocytes # 0.0 K/mm3 06/08/21 03:44 Promyelocytes # 0.0 K/mm3 06/08/21 03:44 Blast Cells # 0.0 K/mm3 06/08/21 03:44 WBC Morphology Not Reportable 06/08/21 03:44 Hypersegmented Neuts Not Reportable 06/08/21 03:44 Hyposegmented Neuts Not Reportable 06/08/21 03:44 Hypogranular Neuts Not Reportable 06/08/21 03:44 Smudge Cells Not Reportable 06/08/21 03:44 Toxic Granulation Not Reportable 06/08/21 03:44 Toxic Vacuolation Not Reportable 06/08/21 03:44 Dohle Bodies Not Reportable 06/08/21 03:44 Pelger-Huet Anomaly Not Reportable 06/08/21 03:44 Nba Rods Not Reportable 06/08/21 03:44 Platelet Estimate Consistent w auto 06/08/21 03:44 Clumped Platelets Not Reportable 06/08/21 03:44 Plt Clumps, EDTA Not Reportable 06/08/21 03:44 Large Platelets Not Reportable 06/08/21 03:44 Giant Platelets Not Reportable 06/08/21 03:44 Platelet Satelliting Not Reportable 06/08/21 03:44 Plt Morphology Comment Not Reportable 06/08/21 03:44 RBC Morphology Not Reportable 06/08/21 03:44 Dimorphic RBCs Not Reportable 06/08/21 03:44 Polychromasia Not Reportable 06/08/21 03:44 Hypochromasia Not Reportable 06/08/21 03:44 Poikilocytosis Not Reportable 06/08/21 03:44 Anisocytosis Not Reportable 06/08/21 03:44 Microcytosis Not Reportable 06/08/21 03:44 Macrocytosis Not Reportable 06/08/21 03:44 Spherocytes Not Reportable 06/08/21 03:44 Pappenheimer Bodies Not Reportable 06/08/21 03:44 Sickle Cells Not Reportable 06/08/21 03:44 Target Cells Not Reportable 06/08/21 03:44 Tear Drop Cells Not Reportable 06/08/21 03:44 Ovalocytes Not Reportable 06/08/21 03:44 Helmet Cells Not Reportable 06/08/21 03:44 [place] Bodies Not Reportable 06/08/21 03:44 [place] Rings Not Reportable 06/08/21 03:44 [place] Cells Not Reportable 06/08/21 03:44 Bite Cells Not Reportable 06/08/21 03:44 Crenated Cell Not Reportable 06/08/21 03:44 Elliptocytes Not Reportable 06/08/21 03:44 Acanthocytes (Spur) Not Reportable 06/08/21 03:44 Rouleaux Not Reportable 06/08/21 03:44 Hemoglobin C Crystals Not Reportable 06/08/21 03:44 Schistocytes Not Reportable 06/08/21 03:44 Malaria parasites Not Reportable 06/08/21 03:44 Luis Bodies Not Reportable 06/08/21 03:44 Hem Pathologist Commnt No 06/08/21 03:44 D-Dimer 5334.05 ng/mlDDU (0-234) H 06/07/21 19:11 ABG pH 7.395 (7.320-7.450) 06/09/21 12:19 POC ABG pCO2 34.2 mmHg (32.0-48.0) 06/09/21 12:19 POC ABG pO2 71.4 mmHg (83-108) L 06/09/21 12:19 POC ABG HCO3 20.5 06/09/21 12:19 ABG O2 Saturation 93.6 (0-100) 06/09/21 12:19 POC ABG Base Excess -3.6 06/09/21 12:19 ABG Hemoglobin 13.2 (12.0-17.5) 06/09/21 12:19 ABG Oxyhemoglobin 92.9 (94-98) L 06/09/21 12:19 ABG Methemoglobin 0.3 (0.0-1.5) 06/09/21 12:19 ABG Sodium 143.5 mmol/L (136.0-145.0) 06/09/21 12:19 ABG Potassium 3.6 mmol/L (3.40-4.50) 06/09/21 12:19 ABG Chloride 109.0 mmol/L (98-107) H 06/09/21 12:19 ABG Glucose 287 mg/dL (65-95) H 06/09/21 12:19 Carboxyhemoglobin 0.4 (0.5-1.5) L 06/09/21 12:19 FiO2 % 75.0 06/09/21 12:19 Sodium 139 mmol/L (137-145) 06/09/21 08:42 Potassium 4.9 mmol/L (3.6-5.0) 06/09/21 08:42 Chloride 104.2 mmol/L (98-107) 06/09/21 08:42 Carbon Dioxide 17 mmol/L (22-30) L 06/09/21 08:42 Anion Gap 23 mmol/L 06/09/21 08:42 BUN 74 mg/dL (7-17) H 06/09/21 08:42 Creatinine 3.7 mg/dL (0.6-1.2) H 06/09/21 08:42 Estimated GFR 15 ml/min 06/09/21 08:42 BUN/Creatinine Ratio 20 % 06/09/21 08:42 Glucose 259 mg/dL (65-100) H 06/09/21 08:42 POC Glucose 247 mg/dL (70-105) H 06/10/21 12:07 Hemoglobin A1c 9.5 % (4-6) H 06/07/21 19:11 Calcium 8.3 mg/dL (8.4-10.2) L 06/09/21 08:42 Phosphorus 4.50 mg/dL (2.5-4.5) 06/09/21 08:42 Ferritin 1230.0 ng/mL (10.0-200.0) H 06/07/21 19:11 Total Bilirubin 0.30 mg/dL (0.1-1.2) 06/08/21 03:44 AST 29 units/L (5-40) 06/08/21 03:44 ALT 19 units/L (7-56) 06/08/21 03:44 Alkaline Phosphatase 58 units/L (35-129) 06/08/21 03:44 Lactate Dehydrogenase 796 units/L (91-180) H 06/07/21 19:11 Troponin T 0.021 ng/mL (0.00-0.029) 06/08/21 13:49 C-Reactive Protein 19.60 mg/dL (0.00-1.30) H 06/07/21 19:11 Total Protein 7.9 g/dL (6.3-8.2) 06/08/21 03:44 Albumin 3.4 g/dL (3.9-5) L 06/08/21 03:44 Albumin/Globulin Ratio 0.8 % 06/08/21 03:44 Triglycerides 209 mg/dL (2-149) H 06/07/21 19:11 Cholesterol 165 mg/dL (50-199) 06/07/21 19:11 LDL Cholesterol Direct 79 mg/dL (50-130) 06/07/21 19:11 HDL Cholesterol 35 mg/dL (40-59) L 06/07/21 19:11 Cholesterol/HDL Ratio 4.71 % 06/07/21 19:11 Procalcitonin 0.91 ng/mL (<0.15) 06/07/21 19:11 Arterial Blood Glucose 287 mg/dL (65-95) H 06/09/21 12:19 Coronavirus (PCR) Positive (Negative) A 06/08/21 08:30 Blood Type B POSITIVE 06/07/21 22:34 Antibody Screen Negative 06/07/21 22:34 Roland/IV: Voiding Method Incontinent Active Medications - Current Medications Current Medications: Generic Name Dose Route Start Last Admin Trade Name Freq PRN Reason Stop Dose Admin Acetaminophen 650 mg 06/07/21 21:41 Acetaminophen 325 Mg Tab PO Q4H PRN Pain MILD(1-3)/Fever >100.5/MARTÍNEZ Albuterol 2 puff 06/07/21 23:00 Albuterol 8.5 Gm Mdi Inhalation IH Q4HRT PRN Shortness Of Breath Alprazolam 0.125 mg 06/07/21 22:33 Alprazolam 0.25 Mg Tab PO Q8H PRN Anxiety Apixaban 5 mg 06/08/21 10:00 06/10/21 09:34 Apixaban 5 Mg Tab PO 5 mg BID LEONOR Administration Atorvastatin Calcium 10 mg 06/08/21 10:00 06/10/21 09:34 Atorvastatin 10 Mg Tab PO 10 mg DAILY LEONOR Administration Carvedilol 3.125 mg 06/07/21 22:00 06/10/21 09:34 Carvedilol 3.125 Mg Tab PO 3.125 mg BID LEONOR Administration Dexamethasone 8 mg 06/08/21 10:00 06/10/21 09:34 Dexamethasone 4 Mg/Ml Vial IV 06/16/21 10:01 8 mg Q24HR LEONOR Administration Dextrose 50 ml 06/08/21 12:04 Dextrose 50% In Water (25gm) 50 Ml Syringe IV Q30MIN PRN Hypoglycemia Protocol Docusate Sodium 100 mg 06/07/21 21:33 Docusate Sodium 100 Mg Cap PO BID PRN Constipation Famotidine 10 mg 06/08/21 10:00 06/10/21 09:34 Famotidine 20 Mg/2 Ml Inj IV 10 mg BID LEONOR Administration Guaifenesin 10 ml 06/09/21 00:15 06/10/21 13:19 Guaifenesin Dm 200/20 Mg Oral Liqd 10 Ml PO 10 ml Q4H PRN Administration Cough Hydralazine HCl 25 mg 06/07/21 22:00 06/10/21 13:19 Hydralazine 25 Mg Tab PO 25 mg Q8HR LEONOR Administration Hydromorphone HCl 0.5 mg 06/07/21 21:41 Hydromorphone 1 Mg/1 Ml Inj IV Q3H PRN Pain , Severe (7-10) Hydromorphone HCl 0.25 mg 06/07/21 22:33 Hydromorphone 1 Mg/1 Ml Inj IV Q4H PRN Pain, Moderate (4-6) Sodium Chloride 1,000 mls @ 100 mls/hr 06/07/21 21:45 06/10/21 06:26 Nacl 0.9% 1000 Ml IV 100 mls/hr DIRECT LEONOR Administration Ceftriaxone Sodium 2 gm in 100 mls @ 200 mls/hr 06/08/21 22:00 06/09/21 21:33 Rocephin/Ns 2 Gm/100 Ml IV 06/11/21 22:29 200 mls/hr QHS LEONOR Administration Protocol Insulin Human Isoph/Insulin Regular 55 unit 06/09/21 08:00 06/10/21 09:32 Insulin Nph/Regular 70/30 Inj SUB-Q 55 unit QDDIAB LEONOR Administration Insulin Human Regular 0 units 06/08/21 12:15 06/10/21 13:20 Insulin Regular, Human 100 Units/1 Ml SUB-Q 3 units ACHS LEONOR Administration Protocol Levothyroxine Sodium 75 mcg 06/08/21 06:00 06/10/21 06:23 Levothyroxine 75 Mcg Tab PO 75 mcg QAM@0600 LEONOR Administration Levothyroxine Sodium 200 mcg 06/08/21 06:00 06/10/21 06:23 Levothyroxine 100 Mcg Tab PO 200 mcg DAILY@0600 LEONOR Administration Loratadine/Pseudoephedrine Sulfate 1 each 06/08/21 10:00 06/10/21 13:19 Loratadine/Pseudoephedrine 10-240 Mg Tab 24hr PO 1 each Q24HR LEONOR Administration Ondansetron HCl 4 mg 06/07/21 22:00 06/10/21 13:20 Ondansetron 4 Mg Odt Tab PO 4 mg Q8HR LEONOR Administration Ondansetron HCl 4 mg 06/07/21 21:41 06/10/21 06:24 Ondansetron 4 Mg/2 Ml Inj IV 4 mg Q8H PRN Administration Nausea And Vomiting Oxycodone/Acetaminophen 1 tab 06/07/21 21:41 06/09/21 17:05 Oxycodone /Acetaminophen 5-325mg Tab PO 1 tab Q6H PRN Administration Pain, Moderate (4-6) Sodium Bicarbonate 650 mg 06/10/21 14:00 06/10/21 13:19 Sodium Bicarbonate 650 Mg Tab PO 650 mg TID LEONOR Administration Sodium Chloride 10 ml 06/07/21 22:00 06/10/21 09:35 Sodium Chloride 0.9% 10 Ml Flush Syringe IV 10 ml BID LEONOR Administration Sodium Chloride 10 ml 06/07/21 21:41 Sodium Chloride 0.9% 10 Ml Flush Syringe IV PRN PRN LINE FLUSH Nutrition/Malnutrition Assess - Dietary Evaluation Nutrition/Malnutrition Findings: Nutrition Notes Start: 06/08/21 10:56 Freq: Status: Active Protocol: Document 06/09/21 11:28 GB (Rec: 06/09/21 11:34 GB [id number]) Nutrition Notes Initial or Follow up Reassessment Current Diagnosis Acute Kidney Injury,Diabetes, Sepsis,Hypertension, Respiratory Failure Other Pertinent Diagnosis COVID-19 PUI, hypothyroid Current Diet consistent CHO/cardiac, pureed texture Labs/Tests BUN 68 Cr 4.7 BG 218 06/07: A1c 9.5 Pertinent Medications Zofran NS at 10 ml/hr Height 5 ft 11 in Weight 164.654 kg [place] Body Weight (kg) 70.45 BMI 50.6 Weight change and time frame Wt stable from previous adm on 09/17/2020 Weight Status Morbidly Obese Subjective/Other Information MD consult for malnutrition. RN screen for chewing difficutly. Per previous visit , pt does not want mech soft diet and has hx of not liking Ensure. Pt on bipap. Unable to speak with pt. Burn Absent Trauma Absent Minimum of two criteria No #1 Nutrition Diagnosis Predicted suboptimal energy intake Comments: PO intake of meals recorded currently for one day at 25%, independent with meals. Etiology ARF As Evidenced by Signs and Symptoms pt on bipap Diagnosis Progress(for reassessment Continues documentation) Is patient on ventilator? No Is Patient Ambulatory and/or Out of Bed No REE-([place]-confined to bed) 2778.984 Kcal/Kg value to use for calculation 12 Approximate Energy Requirements Using 1976 kcal/Kg Calculation Used for Recommendations Kcal/kg Additional Notes Protein: (0.8-1g/kg AdjBW) 94- 117g/day Fluid: 1 ml/kcal Nutrition Intervention Change Diet Order: Continue Add Supplement/Snack (indicate name/kcal n/a - history of pt not liking /protein ) nutrition supplement beverages Goal #1 PO intake of meals to improve to 50% or greater TID daily during LOS Goal #2 Weight to maintain within +/-3 % current weight during LOS Follow-Up By: 06/14/21 Additional Comments Check for PO intake improvement for sign off. Nursing to record meal intake daily. - Attestation Statement I have reviewed and agreed w/ Malnutrition eval & tx plan: Yes
[2021-06-10] MEDS: cefTRIAXone/NS 2 GM/100 ML 2 GM/100 ML BAG IV SCH (22:56)
[2021-06-11 00:23] LABS: Hematocrit 40.4 % (30.3-42.9); Hemoglobin 13.2 gm/dl (10.1-14.3); Mean Corpuscular HGB Conc 33 % (30-34); Mean Corpuscular Volume 87 fl (79-97); Platelet Count 218 K/mm3 (140-440); Red Blood Count 4.63 M/mm3 (3.65-5.03); Red Cell Distribution Width 15.3 % (13.2-15.2)
[2021-06-11 01:07] LABS: Calcium 8.5 mg/dL (8.4-10.2)
[2021-06-11 01:08] LABS: Calcium 8.6 mg/dL (8.4-10.2)
[2021-06-11 02:20] LABS: Band Neutrophils # (Manual) 0.2 K/mm3; Total Cells Counted 100
[2021-06-11 02:21] LABS: Anisocytosis 1+; Burr Cells Few; Ovalocytes Few; Platelet Estimate Consistent w Auto; Poikilocytosis 1+; Schistocytes Rare
[2021-06-11] MEDS: hydrALAZINE 25 MG TAB PO SCH ×3 (05:38→21:36)
[2021-06-11] MEDS: LEVOTHYROXINE 75 MCG TAB PO SCH (05:39)
[2021-06-11] MEDS: LEVOTHYROXINE 100 MCG TAB PO SCH (05:40)
[2021-06-11] MEDS: SODIUM CHLORIDE 0.9% 1000 ML 1,000 ML IV SCH (05:41)
[2021-06-11] MEDS: guaiFENesin DM 200/20 MG ORAL LIQD 10 ML PO PRN (06:12)
[2021-06-11] MEDS: ONDANSETRON 4 MG ODT TAB PO SCH ×3 (06:16→21:36)
[2021-06-11] MEDS: SODIUM BICARBONATE 650 MG TAB PO SCH ×3 (07:55→21:35)
[2021-06-11] MEDS: INSULIN REGULAR, HUMAN 100 UNITS/1 ML SUB-Q SCH ×4 (07:56→21:41)
[2021-06-11] MEDS: INSULIN NPH/REGULAR 70/30 INJ SUB-Q SCH ×2 (08:07→16:26)
[2021-06-11] MEDS: dexAMETHasone 4 MG/ML VIAL IV SCH (09:24)
[2021-06-11] MEDS: FAMOTIDINE 20 MG/2 ML INJ IV SCH ×2 (09:24→21:37)
[2021-06-11] MEDS: carvediloL 3.125 MG TAB PO SCH ×2 (09:25→21:35)
[2021-06-11] MEDS: APIXABAN 5 MG TAB PO SCH ×2 (09:25→21:35)
[2021-06-11] MEDS: LORATADINE/PSEUDOEPHEDRINE 10-240 MG TAB 24HR PO SCH (09:43)
--- NOTE | 2021-06-11 11:10 | Progress Note ---
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 Subjective Date of service: 06/11/21 Principal diagnosis: TREMAINE Interval history: Making urine. Objective - Exam Narrative Exam: General appearance: Present: no acute distress - EENT Eyes: Present: PERRL, EOM intact ENT: hearing intact, clear oral mucosa, dentition normal - Neck Neck: Present: supple, normal ROM - Respiratory Respiratory effort: labored Respiratory: bilateral: diminished (Difficult to auscultate given body habitus), rhonchi, negative: CTA, rales, wheezing - Cardiovascular Rhythm: regular Heart Sounds: Present: S1 & S2 - Extremities Extremities: no ischemia, pulses intact, pulses symmetrical, No edema, normal temperature, normal color Peripheral Pulses: within normal limits - Abdominal General gastrointestinal: soft, non-tender, non-distended, normal bowel sounds (Difficult to assess given body habitus) - Integumentary Integumentary: Present: clear, warm, dry - Psychiatric Psychiatric: appropriate mood/affect, intact judgment & insight, memory intact, cooperative - Neurologic Neurologic: CNII-XII intact, moves all extremities - Allied Health Allied health notes reviewed: nursing - Vital Signs Vital signs: Vital Signs - 12hr 06/10/21 06/11/21 06/11/21 23:33 02:00 02:15 Temperature 97.9 F Pulse Rate 89 Respiratory 24 Rate Blood Pressure 146/86 O2 Sat by Pulse 88 94 95 Oximetry 06/11/21 06/11/21 04:41 09:25 Temperature 97.2 F L Pulse Rate 80 80 Respiratory 24 Rate Blood Pressure 162/79 162/79 O2 Sat by Pulse 94 Oximetry - Lab 06/11/21 10:58 06/11/21 10:58 Most recent lab results ABG pH 7.395 (7.320-7.450) 06/09/21 12:19 ABG O2 Saturation 93.6 (0-100) 06/09/21 12:19 Calcium 8.5 mg/dL (8.4-10.2) 06/10/21 23:14 Calcium 8.6 mg/dL (8.4-10.2) 06/10/21 23:14 Phosphorus 4.00 mg/dL (2.5-4.5) 06/10/21 23:14 Magnesium 2.50 mg/dL (1.7-2.3) H 06/10/21 23:14 Medications & Allergies - Medications Allergies/Adverse Reactions: Allergies latex Allergy (Verified 03/19/19 17:03) Unknown shellfish derived Allergy (Verified 03/19/19 17:03) Anaphylaxis strawberry Allergy (Verified 03/19/19 17:03) Anaphylaxis tomato Allergy (Verified 03/19/19 17:03) Anaphylaxis nuts Allergy (Uncoded 03/19/19 17:03) Anaphylaxis Home Medications: Home Medications Medication Instructions Recorded Confirmed Last Taken Type Albuterol Sulfate [Ventolin HFA] 2 puff IH Q4H PRN 01/29/14 09/13/19 02/01/15 History Levothyroxine (Nf) [Synthroid (Nf)] 275 mcg PO QAM 01/29/14 09/13/19 02/01/15 History Fluticasone/Salmeterol [Advair 1 each IH PRN PRN 01/26/15 09/13/19 02/02/15 10:00 History Diskus 250-50 mcg] Apixaban [Eliquis starter pack] 5 mg PO BID 09/13/19 09/13/19 Unknown History Insulin Aspart Prot/Insuln Asp 45 unit SUB-Q QAM 09/13/19 09/13/19 Unknown History [Novolog Mix 70-30 Flexpen] Insulin Glargine,Hum.rec.anlog 25 unit SQ HS 09/13/19 09/13/19 Unknown History [Basaglar Kwikpen U-100] Lovastatin [Altoprev] 20 mg PO DAILY 09/13/19 09/13/19 Unknown History Docusate Sodium [Colace CAP] 100 mg PO BID PRN #30 capsule 09/17/19 Unknown Rx Loratadine/Pseudoephedrine 1 each PO Q24HR #10 tablet 09/17/19 Unknown Rx [Claritin-D 24HR] Ondansetron [Zofran Odt] 4 mg PO Q8HR #20 tab.rapdis 09/17/19 Unknown Rx carvediloL [Coreg] 3.125 mg PO BID #60 tablet 09/17/19 Unknown Rx hydrALAZINE [Apresoline TAB] 25 mg PO Q8HR #90 tablet 09/17/19 Unknown Rx Active Medications: Generic Name Dose Route Start Last Admin Trade Name Freq PRN Reason Stop Dose Admin Acetaminophen 650 mg 06/07/21 21:41 Acetaminophen 325 Mg Tab PO Q4H PRN Pain MILD(1-3)/Fever >100.5/MARTÍNEZ Albuterol 2 puff 06/07/21 23:00 Albuterol 8.5 Gm Mdi Inhalation IH Q4HRT PRN Shortness Of Breath Alprazolam 0.125 mg 06/07/21 22:33 Alprazolam 0.25 Mg Tab PO Q8H PRN Anxiety Apixaban 5 mg 06/08/21 10:00 06/11/21 09:25 Apixaban 5 Mg Tab PO 5 mg BID LEONOR Administration Atorvastatin Calcium 10 mg 06/08/21 10:00 06/11/21 09:25 Atorvastatin 10 Mg Tab PO 10 mg DAILY LEONOR Administration Carvedilol 3.125 mg 06/07/21 22:00 06/11/21 09:25 Carvedilol 3.125 Mg Tab PO 3.125 mg BID LEONOR Administration Dexamethasone 8 mg 06/08/21 10:00 06/11/21 09:24 Dexamethasone 4 Mg/Ml Vial IV 06/16/21 10:01 8 mg Q24HR LEONOR Administration Dextrose 50 ml 06/08/21 12:04 Dextrose 50% In Water (25gm) 50 Ml Syringe IV Q30MIN PRN Hypoglycemia Protocol Docusate Sodium 100 mg 06/07/21 21:33 Docusate Sodium 100 Mg Cap PO BID PRN Constipation Famotidine 10 mg 06/08/21 10:00 06/11/21 09:24 Famotidine 20 Mg/2 Ml Inj IV 10 mg BID LEONOR Administration Guaifenesin 10 ml 06/09/21 00:15 06/11/21 06:12 Guaifenesin Dm 200/20 Mg Oral Liqd 10 Ml PO 10 ml Q4H PRN Administration Cough Hydralazine HCl 25 mg 06/07/21 22:00 06/11/21 05:38 Hydralazine 25 Mg Tab PO 25 mg Q8HR LEONOR Administration Hydromorphone HCl 0.5 mg 06/07/21 21:41 Hydromorphone 1 Mg/1 Ml Inj IV Q3H PRN Pain , Severe (7-10) Hydromorphone HCl 0.25 mg 06/07/21 22:33 Hydromorphone 1 Mg/1 Ml Inj IV Q4H PRN Pain, Moderate (4-6) Sodium Chloride 1,000 mls @ 100 mls/hr 06/07/21 21:45 06/11/21 05:41 Nacl 0.9% 1000 Ml IV 100 mls/hr DIRECT LEONOR Administration Ceftriaxone Sodium 2 gm in 100 mls @ 200 mls/hr 06/08/21 22:00 06/10/21 22:56 Rocephin/Ns 2 Gm/100 Ml IV 06/11/21 22:29 200 mls/hr QHS LEONOR Administration Protocol Insulin Human Isoph/Insulin Regular 30 unit 06/11/21 08:00 06/11/21 08:07 Insulin Nph/Regular 70/30 Inj SUB-Q 30 unit BIDDIAB LEONOR Administration Insulin Human Regular 0 units 06/08/21 12:15 06/11/21 07:56 Insulin Regular, Human 100 Units/1 Ml SUB-Q 3 units ACHS LEONOR Administration Protocol Levothyroxine Sodium 75 mcg 06/08/21 06:00 06/11/21 05:39 Levothyroxine 75 Mcg Tab PO 75 mcg QAM@0600 LEONOR Administration Levothyroxine Sodium 200 mcg 06/08/21 06:00 06/11/21 05:40 Levothyroxine 100 Mcg Tab PO 200 mcg DAILY@0600 LEONOR Administration Loratadine/Pseudoephedrine Sulfate 1 each 06/08/21 10:00 06/11/21 09:43 Loratadine/Pseudoephedrine 10-240 Mg Tab 24hr PO Not Given Q24HR LEONOR Ondansetron HCl 4 mg 06/07/21 22:00 06/11/21 06:16 Ondansetron 4 Mg Odt Tab PO 4 mg Q8HR LEONOR Administration Ondansetron HCl 4 mg 06/07/21 21:41 06/10/21 06:24 Ondansetron 4 Mg/2 Ml Inj IV 4 mg Q8H PRN Administration Nausea And Vomiting Oxycodone/Acetaminophen 1 tab 06/07/21 21:41 06/09/21 17:05 Oxycodone /Acetaminophen 5-325mg Tab PO 1 tab Q6H PRN Administration Pain, Moderate (4-6) Sodium Bicarbonate 650 mg 06/10/21 14:00 06/11/21 07:55 Sodium Bicarbonate 650 Mg Tab PO 650 mg TID LEONOR Administration Sodium Chloride 10 ml 06/07/21 22:00 06/11/21 09:25 Sodium Chloride 0.9% 10 Ml Flush Syringe IV 10 ml BID LEONOR Administration Sodium Chloride 10 ml 06/07/21 21:41 Sodium Chloride 0.9% 10 Ml Flush Syringe IV PRN PRN LINE FLUSH
[2021-06-11 11:15] LABS: Hematocrit 39.3 % (30.3-42.9); Hemoglobin 13.1 gm/dl (10.1-14.3); Mean Corpuscular HGB Conc 33 % (30-34); Mean Corpuscular Volume 86 fl (79-97); Platelet Count 200 K/mm3 (140-440); Red Blood Count 4.55 M/mm3 (3.65-5.03); Red Cell Distribution Width 15.3 % (13.2-15.2)
[2021-06-11 11:34] LABS: C-Reactive Protein 1.9 mg/dL (0.00-1.30); Calcium 8.4 mg/dL (8.4-10.2)
[2021-06-11] MEDS ORDERED: POTASSIUM CHLORIDE ER 20 MEQ TAB PO ONE (13:09)
--- NOTE | 2021-06-11 13:19 | Progress Note ---
Assessment and Plan Assessment and plan: #Severe COVID-19 breakthrough infection #Severe COVID-19 pneumonia -Patient admits to being vaccinated with the [employer] vaccine earlier this year; however, several family members have been diagnosed with Covid recently -continue airborne and contact isolation per COVID-19 protocol -Inflammatory markers elevated; continue to monitor every 2 to 3 days -Infectious disease consulted; appreciate recs. Acetemra given on 06/09/2021 -Transition from BiPAP to high flow/Vapotherm requiring 30 L / 100% FiO2 -Pending morning ABG to determine if ARDS is present -We will initiate steroid (prednisone 40 mg daily) treatment. Patient is not a candidate for remdesivir due to renal failure -Continue ascorbic acid, zinc sulfate, and vitamin D supplementation per COVID- 19 protocol #Hypernatremia -Na 150 -Likely secondary to patient's decreased p.o. intake; encouraged to increase liquid intake. Patient expressed understanding -Free water deficit of 5.8 L. Initiating D5W 125 cc/hour. Will make changes if nephrology recommends. -We will continue to monitor #Acute renal failure versus acute on chronic renal failure -Creatinine 3.7 (baseline unknown) -Nephrology consulted on admission; appreciate recs -Continue to monitor renal function and encouraging increased p.o. intake -Avoiding nephrotoxic medications #Acute hypoxic respiratory failure -Currently on BiPAP therapy and will wean as tolerated -Unsure why BNP was not performed this morning. Will reorder for a.m. to be done by respiratory therapy. -Pulmonology consulted on admission; appreciate recs -Chest x-ray revealing bilateral pneumonia concerning for COVID-19 breakthrough infection #Insulin-dependent type 2 diabetes- uncontrolled -Pending hemoglobin A1c -Continue scheduled NPH with medium sliding scale insulin -We will continue to monitor. Blood sugar goal 140-180 #Elevated troponin-resolved -Elevated troponins likely secondary to type II etiology -Cardiology consulted on admission; appreciate recs -TTE unchanged from previous imaging #Hypertension-controlled -Continue home antihypertensives -We will continue to follow #Hypothyroidism -Continue home medications -We will defer on testing TSH due to current medical condition #Protein calorie malnutrition -Nutrition consulted upon admission -Patient admitted to having decreased p.o. intake for approximately 1 to 2 weeks prior to admission; encouraging p.o. intake #History of DVT -Continue home Eliquis; like Eliquis will also cover for DVT prophylaxis #Discharge planning -Consulted physical therapy to evaluate. Disposition Plan: Continue medical management History Interval history: No acute events overnight. Hospitalist Physical - Constitutional Vitals: Temp Pulse Resp BP Pulse Ox 97.5 F L 94 H 20 140/83 87 06/11/21 11:08 06/11/21 11:08 06/11/21 11:08 06/11/21 11:08 06/11/21 11:08 General appearance: Present: no acute distress - EENT Eyes: Present: PERRL, EOM intact ENT: hearing intact, clear oral mucosa, dentition normal - Neck Neck: Present: supple, rigidity - Respiratory Respiratory effort: normal Respiratory: bilateral: diminished, rhonchi, wheezing, negative: rales Details: Currently on high flow 30 L / 100% FiO2 - Cardiovascular Rhythm: regular Heart Sounds: Present: S1 & S2 - Extremities Extremities: no ischemia, pulses intact, pulses symmetrical, No edema, normal temperature, normal color Peripheral Pulses: within normal limits - Abdominal General gastrointestinal: soft, non-tender, non-distended, other (Difficult to assess bowel sounds given body) - Integumentary Integumentary: Present: clear, warm, dry - Psychiatric Psychiatric: appropriate mood/affect, intact judgment & insight, memory intact, cooperative - Neurologic Neurologic: CNII-XII intact, moves all extremities - Allied Health Allied health notes reviewed: nursing HEART Score - HEART Score EKG: Non-specific Age: 45-65 Risk factors: 1-2 risk factors Troponin: Troponin T 0.021 ng/mL (0.00-0.029) 06/08/21 13:49 - Critical Actions Critical Actions: 0-3 pts:0.9-1.7%risk of adverse cardiac event.Candidate for discharge Results - Labs CBC & Chem 7: 06/11/21 10:58 06/11/21 10:58 Labs: Laboratory Last Values WBC 11.3 K/mm3 (4.5-11.0) H 06/11/21 10:58 RBC 4.55 M/mm3 (3.65-5.03) 06/11/21 10:58 Hgb 13.1 gm/dl (10.1-14.3) 06/11/21 10:58 Hct 39.3 % (30.3-42.9) 06/11/21 10:58 MCV 86 fl (79-97) 06/11/21 10:58 MCH 29 pg (28-32) 06/11/21 10:58 MCHC 33 % (30-34) 06/11/21 10:58 RDW 15.3 % (13.2-15.2) H 06/11/21 10:58 Plt Count 200 K/mm3 (140-440) 06/11/21 10:58 Lymph % (Auto) 4.9 % (13.4-35.0) L 06/09/21 08:42 [place] % (Auto) 4.9 % (0.0-7.3) 06/09/21 08:42 Eos % (Auto) 0.0 % (0.0-4.3) 06/09/21 08:42 Baso % (Auto) 0.2 % (0.0-1.8) 06/09/21 08:42 Lymph # (Auto) 0.7 K/mm3 (1.2-5.4) L 06/09/21 08:42 [place] # (Auto) 0.7 K/mm3 (0.0-0.8) 06/09/21 08:42 Eos # (Auto) 0.0 K/mm3 (0.0-0.4) 06/09/21 08:42 Baso # (Auto) 0.0 K/mm3 (0.0-0.1) 06/09/21 08:42 Add Manual Diff Complete 06/10/21 23:14 Total Counted 100 06/10/21 23:14 Seg Neutrophils % Manager Custom 06/11/21 10:58 Seg Neuts % (Manual) 93.0 % (40.0-70.0) H 06/10/21 23:14 Band Neutrophils % 2.0 % 06/10/21 23:14 Lymphocytes % (Manual) 2.0 % (13.4-35.0) L 06/10/21 23:14 Monocytes % (Manual) 1.0 % (0.0-7.3) 06/10/21 23:14 Metamyelocytes % 2.0 % 06/10/21 23:14 Nucleated RBC % 3.0 % (0.0-0.9) H 06/10/21 23:14 Seg Neutrophils # 13.2 K/mm3 (1.8-7.7) H 06/09/21 08:42 Seg Neutrophils # Man 10.2 K/mm3 (1.8-7.7) H 06/10/21 23:14 Band Neutrophils # 0.2 K/mm3 06/10/21 23:14 Lymphocytes # (Manual) 0.2 K/mm3 (1.2-5.4) L 06/10/21 23:14 Abs React Lymphs (Man) 0.0 K/mm3 06/10/21 23:14 Monocytes # (Manual) 0.1 K/mm3 (0.0-0.8) 06/10/21 23:14 Eosinophils # (Manual) 0.0 K/mm3 (0.0-0.4) 06/10/21 23:14 Basophils # (Manual) 0.0 K/mm3 (0.0-0.1) 06/10/21 23:14 Metamyelocytes # 0.2 K/mm3 06/10/21 23:14 Myelocytes # 0.0 K/mm3 06/10/21 23:14 Promyelocytes # 0.0 K/mm3 06/10/21 23:14 Blast Cells # 0.0 K/mm3 06/10/21 23:14 WBC Morphology TNR 06/11/21 10:58 Hypersegmented Neuts Not Reportable 06/10/21 23:14 Hyposegmented Neuts Not Reportable 06/10/21 23:14 Hypogranular Neuts Not Reportable 06/10/21 23:14 Smudge Cells Not Reportable 06/10/21 23:14 Toxic Granulation Not Reportable 06/10/21 23:14 Toxic Vacuolation Not Reportable 06/10/21 23:14 Dohle Bodies Not Reportable 06/10/21 23:14 Pelger-Huet Anomaly Not Reportable 06/10/21 23:14 Nba Rods Not Reportable 06/10/21 23:14 Platelet Estimate Consistent w auto 06/10/21 23:14 Clumped Platelets Not Reportable 06/10/21 23:14 Plt Clumps, EDTA Not Reportable 06/10/21 23:14 Large Platelets Not Reportable 06/10/21 23:14 Giant Platelets Not Reportable 06/10/21 23:14 Platelet Satelliting Not Reportable 06/10/21 23:14 Plt Morphology Comment Not Reportable 06/10/21 23:14 RBC Morphology Not Reportable 06/10/21 23:14 Dimorphic RBCs Not Reportable 06/10/21 23:14 Polychromasia Not Reportable 06/10/21 23:14 Hypochromasia Not Reportable 06/10/21 23:14 Poikilocytosis 1+ 06/10/21 23:14 Anisocytosis 1+ 06/10/21 23:14 Microcytosis Not Reportable 06/10/21 23:14 Macrocytosis Not Reportable 06/10/21 23:14 Spherocytes Not Reportable 06/10/21 23:14 Pappenheimer Bodies Not Reportable 06/10/21 23:14 Sickle Cells Not Reportable 06/10/21 23:14 Target Cells Not Reportable 06/10/21 23:14 Tear Drop Cells Not Reportable 06/10/21 23:14 Ovalocytes Few 06/10/21 23:14 Helmet Cells Not Reportable 06/10/21 23:14 [place] Bodies Not Reportable 06/10/21 23:14 [place] Rings Not Reportable 06/10/21 23:14 [place] Cells Few 06/10/21 23:14 Bite Cells Not Reportable 06/10/21 23:14 Crenated Cell Not Reportable 06/10/21 23:14 Elliptocytes Few 06/10/21 23:14 Acanthocytes (Spur) Not Reportable 06/10/21 23:14 Rouleaux Not Reportable 06/10/21 23:14 Hemoglobin C Crystals Not Reportable 06/10/21 23:14 Schistocytes Rare 06/10/21 23:14 Malaria parasites Not Reportable 06/10/21 23:14 Luis Bodies Not Reportable 06/10/21 23:14 Hem Pathologist Commnt No 06/10/21 23:14 D-Dimer > 06286 ng/mlDDU (0-234) H 06/11/21 10:57 ABG pH 7.395 (7.320-7.450) 06/09/21 12:19 POC ABG pCO2 34.2 mmHg (32.0-48.0) 06/09/21 12:19 POC ABG pO2 71.4 mmHg (83-108) L 06/09/21 12:19 POC ABG HCO3 20.5 06/09/21 12:19 ABG O2 Saturation 93.6 (0-100) 06/09/21 12:19 POC ABG Base Excess -3.6 06/09/21 12:19 ABG Hemoglobin 13.2 (12.0-17.5) 06/09/21 12:19 ABG Oxyhemoglobin 92.9 (94-98) L 06/09/21 12:19 ABG Methemoglobin 0.3 (0.0-1.5) 06/09/21 12:19 ABG Sodium 143.5 mmol/L (136.0-145.0) 06/09/21 12:19 ABG Potassium 3.6 mmol/L (3.40-4.50) 06/09/21 12:19 ABG Chloride 109.0 mmol/L (98-107) H 06/09/21 12:19 ABG Glucose 287 mg/dL (65-95) H 06/09/21 12:19 Carboxyhemoglobin 0.4 (0.5-1.5) L 06/09/21 12:19 FiO2 % 75.0 06/09/21 12:19 Sodium 150 mmol/L (137-145) H 06/11/21 10:58 Potassium 3.4 mmol/L (3.6-5.0) L 06/11/21 10:58 Chloride 114.8 mmol/L (98-107) H 06/11/21 10:58 Carbon Dioxide 21 mmol/L (22-30) L 06/11/21 10:58 Anion Gap 18 mmol/L 06/11/21 10:58 BUN 65 mg/dL (7-17) H 06/11/21 10:58 Creatinine 2.9 mg/dL (0.6-1.2) H 06/11/21 10:58 Estimated GFR 20 ml/min 06/11/21 10:58 BUN/Creatinine Ratio 22 % 06/11/21 10:58 Glucose 180 mg/dL (65-100) H 06/11/21 10:58 POC Glucose 191 mg/dL (70-105) H 06/11/21 11:49 Hemoglobin A1c 9.5 % (4-6) H 06/07/21 19:11 Calcium 8.4 mg/dL (8.4-10.2) 06/11/21 10:58 Phosphorus 3.20 mg/dL (2.5-4.5) 06/11/21 10:58 Magnesium 2.50 mg/dL (1.7-2.3) H 06/11/21 10:58 Ferritin 1300.0 ng/mL (10.0-200.0) H 06/11/21 10:57 Total Bilirubin 0.30 mg/dL (0.1-1.2) 06/08/21 03:44 AST 29 units/L (5-40) 06/08/21 03:44 ALT 19 units/L (7-56) 06/08/21 03:44 Alkaline Phosphatase 58 units/L (35-129) 06/08/21 03:44 Lactate Dehydrogenase 606 units/L (91-180) H 06/10/21 23:14 Troponin T 0.021 ng/mL (0.00-0.029) 06/08/21 13:49 C-Reactive Protein 1.90 mg/dL (0.00-1.30) H 06/11/21 10:58 Total Protein 7.9 g/dL (6.3-8.2) 06/08/21 03:44 Albumin 3.4 g/dL (3.9-5) L 06/08/21 03:44 Albumin/Globulin Ratio 0.8 % 06/08/21 03:44 Triglycerides 209 mg/dL (2-149) H 06/07/21 19:11 Cholesterol 165 mg/dL (50-199) 06/07/21 19:11 LDL Cholesterol Direct 79 mg/dL (50-130) 06/07/21 19:11 HDL Cholesterol 35 mg/dL (40-59) L 06/07/21 19:11 Cholesterol/HDL Ratio 4.71 % 06/07/21 19:11 Procalcitonin 0.91 ng/mL (<0.15) 06/07/21 19:11 Arterial Blood Glucose 287 mg/dL (65-95) H 06/09/21 12:19 Coronavirus (PCR) Positive (Negative) A 06/08/21 08:30 Blood Type B POSITIVE 06/07/21 22:34 Antibody Screen Negative 06/07/21 22:34 Roland/IV: Voiding Method External Female Catheter Active Medications - Current Medications Current Medications: Generic Name Dose Route Start Last Admin Trade Name Freq PRN Reason Stop Dose Admin Acetaminophen 650 mg 06/07/21 21:41 Acetaminophen 325 Mg Tab PO Q4H PRN Pain MILD(1-3)/Fever >100.5/MARTÍNEZ Albuterol 2 puff 06/07/21 23:00 Albuterol 8.5 Gm Mdi Inhalation IH Q4HRT PRN Shortness Of Breath Alprazolam 0.125 mg 06/07/21 22:33 Alprazolam 0.25 Mg Tab PO Q8H PRN Anxiety Apixaban 5 mg 06/08/21 10:00 06/11/21 09:25 Apixaban 5 Mg Tab PO 5 mg BID LEONOR Administration Atorvastatin Calcium 10 mg 06/08/21 10:00 06/11/21 09:25 Atorvastatin 10 Mg Tab PO 10 mg DAILY LEONOR Administration Carvedilol 3.125 mg 06/07/21 22:00 06/11/21 09:25 Carvedilol 3.125 Mg Tab PO 3.125 mg BID LEONOR Administration Dexamethasone 8 mg 06/08/21 10:00 06/11/21 09:24 Dexamethasone 4 Mg/Ml Vial IV 06/16/21 10:01 8 mg Q24HR LEONOR Administration Dextrose 50 ml 06/08/21 12:04 Dextrose 50% In Water (25gm) 50 Ml Syringe IV Q30MIN PRN Hypoglycemia Protocol Docusate Sodium 100 mg 06/07/21 21:33 Docusate Sodium 100 Mg Cap PO BID PRN Constipation Famotidine 10 mg 06/08/21 10:00 06/11/21 09:24 Famotidine 20 Mg/2 Ml Inj IV 10 mg BID LEONOR Administration Guaifenesin 10 ml 06/09/21 00:15 06/11/21 06:12 Guaifenesin Dm 200/20 Mg Oral Liqd 10 Ml PO 10 ml Q4H PRN Administration Cough Hydralazine HCl 25 mg 06/07/21 22:00 06/11/21 05:38 Hydralazine 25 Mg Tab PO 25 mg Q8HR LEONOR Administration Hydromorphone HCl 0.5 mg 06/07/21 21:41 Hydromorphone 1 Mg/1 Ml Inj IV Q3H PRN Pain , Severe (7-10) Hydromorphone HCl 0.25 mg 06/07/21 22:33 Hydromorphone 1 Mg/1 Ml Inj IV Q4H PRN Pain, Moderate (4-6) Sodium Chloride 1,000 mls @ 100 mls/hr 06/07/21 21:45 06/11/21 05:41 Nacl 0.9% 1000 Ml IV 100 mls/hr DIRECT LEONOR Administration Ceftriaxone Sodium 2 gm in 100 mls @ 200 mls/hr 06/08/21 22:00 06/10/21 22:56 Rocephin/Ns 2 Gm/100 Ml IV 06/11/21 22:29 200 mls/hr QHS LEONOR Administration Protocol Dextrose 1,000 mls @ 125 mls/hr 06/11/21 14:00 D5w IV DIRECT LEONOR Insulin Human Isoph/Insulin Regular 30 unit 06/11/21 08:00 06/11/21 08:07 Insulin Nph/Regular 70/30 Inj SUB-Q 30 unit BIDDIAB LEONOR Administration Insulin Human Regular 0 units 06/08/21 12:15 06/11/21 12:04 Insulin Regular, Human 100 Units/1 Ml SUB-Q 3 units ACHS LEONOR Administration Protocol Levothyroxine Sodium 75 mcg 06/08/21 06:00 06/11/21 05:39 Levothyroxine 75 Mcg Tab PO 75 mcg QAM@0600 [facility] Administration Levothyroxine Sodium 200 mcg 06/08/21 06:00 06/11/21 05:40 Levothyroxine 100 Mcg Tab PO 200 mcg DAILY@0600 LEONOR Administration Loratadine/Pseudoephedrine Sulfate 1 each 06/08/21 10:00 06/11/21 09:43 Loratadine/Pseudoephedrine 10-240 Mg Tab 24hr PO Not Given Q24HR LEONOR Ondansetron HCl 4 mg 06/07/21 22:00 06/11/21 06:16 Ondansetron 4 Mg Odt Tab PO 4 mg Q8HR LEONOR Administration Ondansetron HCl 4 mg 06/07/21 21:41 06/10/21 06:24 Ondansetron 4 Mg/2 Ml Inj IV 4 mg Q8H PRN Administration Nausea And Vomiting Oxycodone/Acetaminophen 1 tab 06/07/21 21:41 06/09/21 17:05 Oxycodone /Acetaminophen 5-325mg Tab PO 1 tab Q6H PRN Administration Pain, Moderate (4-6) Sodium Bicarbonate 650 mg 06/10/21 14:00 06/11/21 07:55 Sodium Bicarbonate 650 Mg Tab PO 650 mg TID LEONOR Administration Sodium Chloride 10 ml 06/07/21 22:00 06/11/21 09:25 Sodium Chloride 0.9% 10 Ml Flush Syringe IV 10 ml BID LEONOR Administration Sodium Chloride 10 ml 06/07/21 21:41 Sodium Chloride 0.9% 10 Ml Flush Syringe IV PRN PRN LINE FLUSH Nutrition/Malnutrition Assess - Dietary Evaluation Nutrition/Malnutrition Findings: Nutrition Notes Start: 06/08/21 10:56 Freq: Status: Active Protocol: Document 06/09/21 11:28 GB (Rec: 06/09/21 11:34 GB [email or web address]) Nutrition Notes Initial or Follow up Reassessment Current Diagnosis Acute Kidney Injury,Diabetes, Sepsis,Hypertension, Respiratory Failure Other Pertinent Diagnosis COVID-19 PUI, hypothyroid Current Diet consistent CHO/cardiac, pureed texture Labs/Tests BUN 68 Cr 4.7 BG 218 06/07: A1c 9.5 Pertinent Medications Zofran NS at 10 ml/hr Height 5 ft 11 in Weight 164.654 kg [place] Body Weight (kg) 70.45 BMI 50.6 Weight change and time frame Wt stable from previous adm on 09/17/2020 Weight Status Morbidly Obese Subjective/Other Information MD consult for malnutrition. RN screen for chewing difficutly. Per previous visit , pt does not want mech soft diet and has hx of not liking Ensure. Pt on bipap. Unable to speak with pt. Burn Absent Trauma Absent Minimum of two criteria No #1 Nutrition Diagnosis Predicted suboptimal energy intake Comments: PO intake of meals recorded currently for one day at 25%, independent with meals. Etiology ARF As Evidenced by Signs and Symptoms pt on bipap Diagnosis Progress(for reassessment Continues documentation) Is patient on ventilator? No Is Patient Ambulatory and/or Out of Bed No REE-([facility]-confined to bed) 2778.984 Kcal/Kg value to use for calculation 12 Approximate Energy Requirements Using 1976 kcal/Kg Calculation Used for Recommendations Kcal/kg Additional Notes Protein: (0.8-1g/kg AdjBW) 94- 117g/day Fluid: 1 ml/kcal Nutrition Intervention Change Diet Order: Continue Add Supplement/Snack (indicate name/kcal n/a - history of pt not liking /protein ) nutrition supplement beverages Goal #1 PO intake of meals to improve to 50% or greater TID daily during LOS Goal #2 Weight to maintain within +/-3 % current weight during LOS Follow-Up By: 06/14/21 Additional Comments Check for PO intake improvement for sign off. Nursing to record meal intake daily. - Attestation Statement I have reviewed and agreed w/ Malnutrition eval & tx plan: Yes
[2021-06-11 14:00] LABS: Anisocytosis 1+; Band Neutrophils # (Manual) 0.5 K/mm3; Total Cells Counted 100
[2021-06-11] MEDS ORDERED: DEXTROSE 5% IN WATER 1,000 ML IV SCH (14:00)
[2021-06-11 14:01] LABS: Poikilocytosis 1+
[2021-06-11] MEDS: SODIUM CHLORIDE 0.45% 1000 ML 1,000 ML IV SCH (14:22)
--- NOTE | 2021-06-11 17:18 | Progress Note ---
Assessment and Plan This is 61-year-old female, Morbidly Obese admitted with shortness of breath that has been ongoing for several days. She had been around family that had been sick with coronavirus symptoms. Patient said she has been vaccinated for COVID-19. She denies vomiting and diarrhea. Reported generalized weakness and difficulty breathing. She has had subjective fevers and chills associate with a cough. Cough has been producing yellowish phlegm. Patient has history of diabetes, Hypertension,Hyperlipidemia and hypothyroidism and CKD. Denies smoking, alcohol or drug abuse. 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 Patient and has no children. Patient awake, Weak and appears tired and on vapotherm, FIO2 100% and O2 saturation running 93%. Still complaining shortneess of breath even with slight exertion. BIPAP stand by in the room. Patients ABGs 06/12/21 reported PH 7.31, [id number], PO2 52, HCO3 20, O2 saturation 87% on 100% FIO2 Patient afebrile and has mild leukocytosis. Patients blood pressure 150/104. P ulse 105. Chest xray that was done 06/07/21 reported Multifocal pneumonia. Patients Repeat Holden virus PCR reported Positive. Patient is on Apixaban, Dexamethasone and Famotidine and albuterol inhaler. I spent critical care time of 40 minutes, reviewing the chart, Examine the patient, review labs and chest xray, talking to respiratory therapy and nursing staff and work out plan of treatment inthis critically ill acute hypoxic respiratory failure patient. - Patient Problems (1) Acute respiratory failure with hypoxia Current Visit: Yes Status: Acute Plan to address problem: Patient is on Vapotherm, FIO2 100% Patient is on Dexamethasone. Patient is on Apixaban. Continue famotidine. (2) Coronavirus infection Current Visit: Yes Status: Acute Plan to address problem: Patient is on dexamethasone Apixaban Management as per infectious diseases. (3) Pneumonia due to COVID-19 virus Current Visit: Yes Status: Acute Plan to address problem: Patient was on Ceftriaxone. (4) Acute kidney injury superimposed on CKD Current Visit: No Status: Acute Plan to address problem: Management as per nephrology. (5) Hypertension Current Visit: No Status: Acute Plan to address problem: Management as per primary care. (6) Diabetes mellitus type 2, insulin dependent Current Visit: No Status: Chronic Plan to address problem: Management as per primary care. (7) Hypothyroidism Current Visit: No Status: Chronic Plan to address problem: Patient is on Levothyroxine. Management as per primary care. (8) Morbid obesity Current Visit: No Status: Chronic Plan to address problem: Recommend to loose weight. Diet and exercise. Recommend sleep study as out patient once she recovered from present problem. Subjective Date of service: 06/11/21 Principal diagnosis: TREMAINE Interval history: This is 61-year-old female, Morbidly Obese admitted with shortness of breath that has been ongoing for several days. She had been around family that had been sick with coronavirus symptoms. Patient said she has been vaccinated for COVID- 19. She denies vomiting and diarrhea. Reported generalized weakness and difficulty breathing. She has had subjective fevers and chills associate with a cough. Cough has been producing yellowish phlegm. Patient has history of diabetes, Hypertension,Hyperlipidemia and hypothyroidism and CKD. Denies smok ing, alcohol or drug abuse. 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 Patient awake, Weak and appears tired and on vapotherm, FIO2 100% and O2 saturation running 93%. Still complaining shortneess of breath even with slight exertion. BIPAP stand by in the room. Patients ABGs 06/12/21 reported PH 7.31, [id number], PO2 52, HCO3 20, O2 saturation 8 7% on 100% FIO2 Patient afebrile and has mild leukocytosis. Patients blood pressure 150/104. Pulse 105. Chest xray that was done 06/07/21 reported Multifocal pneumonia. Patients Repeat Holden virus PCR reported Positive. Patient is on Apixaban, Dexamethasone and Famotidine and albuterol inhaler. Objective Vital Signs - 12hr 06/11/21 06/11/21 06/11/21 09:25 11:08 14:22 Temperature 97.5 F L Pulse Rate 80 94 H 94 H Respiratory 20 Rate Blood Pressure 162/79 140/83 140/83 O2 Sat by Pulse 87 Oximetry Constitutional: alert, appears uncomfortable, other (Morbidly Obese, Mild shortness of breath at rest. Weak.) Eyes: non-icteric ENT: oropharynx moist Neck: supple, no lymphadenopathy Effort: mildly labored Ascultation: Bilateral: diminished breath sounds, rhonchi Cardiovascular: regular rate and rhythm Gastrointestinal: normoactive bowel sounds, soft, non-tender Integumentary: normal Extremities: no cyanosis, no edema Neurologic: normal mental status, non-focal exam, pupils equal and round, CN II- XII normal Psychiatric: mood appropriate, affect normal CBC and BMP: 06/12/21 08:31 06/12/21 08:31 ABG, PT/INR, D-dimer: ABG ABG pH 7.395 (7.320-7.450) 06/09/21 12:19 POC ABG pCO2 34.2 mmHg (32.0-48.0) 06/09/21 12:19 POC ABG pO2 71.4 mmHg (83-108) L 06/09/21 12:19 POC ABG HCO3 20.5 06/09/21 12:19 ABG O2 Saturation 93.6 (0-100) 06/09/21 12:19 PT/INR, D-dimer D-Dimer > 54315 ng/mlDDU (0-234) H 06/11/21 10:57 Abnormal lab findings: Abnormal Labs 06/07/21 06/07/21 06/07/21 19:11 19:11 19:11 WBC 11.5 H RBC Hgb Hct RDW Lymph % (Auto) 6.5 L Lymph # (Auto) 0.8 L Seg Neutrophils % 89.9 H Seg Neuts % (Manual) Lymphocytes % (Manual) Nucleated RBC % Seg Neutrophils # 10.4 H Seg Neutrophils # Man Lymphocytes # (Manual) D-Dimer 5334.05 H POC ABG pO2 ABG Oxyhemoglobin ABG Chloride ABG Glucose Carboxyhemoglobin Sodium Potassium Chloride Carbon Dioxide BUN 67 H Creatinine 4.8 H Glucose 244 H POC Glucose Hemoglobin A1c Calcium Magnesium Ferritin Lactate Dehydrogenase 796 H Troponin T 0.043 H C-Reactive Protein 19.60 H Total Protein 8.4 H Albumin 3.1 L Triglycerides 209 H HDL Cholesterol 35 L Arterial Blood Glucose Coronavirus (PCR) 06/07/21 06/07/21 06/08/21 19:11 19:11 03:04 WBC RBC Hgb Hct RDW Lymph % (Auto) Lymph # (Auto) Seg Neutrophils % Seg Neuts % (Manual) Lymphocytes % (Manual) Nucleated RBC % Seg Neutrophils # Seg Neutrophils # Man Lymphocytes # (Manual) D-Dimer POC ABG pO2 ABG Oxyhemoglobin ABG Chloride ABG Glucose Carboxyhemoglobin Sodium Potassium Chloride Carbon Dioxide BUN Creatinine Glucose POC Glucose Hemoglobin A1c 9.5 H Calcium Magnesium Ferritin 1230.0 H Lactate Dehydrogenase Troponin T 0.031 H D C-Reactive Protein Total Protein Albumin Triglycerides HDL Cholesterol Arterial Blood Glucose Coronavirus (PCR) 06/08/21 06/08/21 06/08/21 03:44 03:44 08:21 WBC 12.9 H RBC Hgb Hct RDW Lymph % (Auto) Lymph # (Auto) Seg Neutrophils % Seg Neuts % (Manual) 95.0 H Lymphocytes % (Manual) 3.0 L Nucleated RBC % Seg Neutrophils # Seg Neutrophils # Man 12.3 H Lymphocytes # (Manual) 0.4 L D-Dimer POC ABG pO2 ABG Oxyhemoglobin ABG Chloride ABG Glucose Carboxyhemoglobin Sodium Potassium Chloride Carbon Dioxide 20 L D BUN 68 H Creatinine 4.7 H Glucose 218 H POC Glucose 273 H Hemoglobin A1c Calcium Magnesium Ferritin Lactate Dehydrogenase Troponin T C-Reactive Protein Total Protein Albumin 3.4 L Triglycerides HDL Cholesterol Arterial Blood Glucose Coronavirus (PCR) 06/08/21 06/08/21 06/08/21 08:30 11:00 17:29 WBC RBC Hgb Hct RDW Lymph % (Auto) Lymph # (Auto) Seg Neutrophils % Seg Neuts % (Manual) Lymphocytes % (Manual) Nucleated RBC % Seg Neutrophils # Seg Neutrophils # Man Lymphocytes # (Manual) D-Dimer POC ABG pO2 ABG Oxyhemoglobin ABG Chloride ABG Glucose Carboxyhemoglobin Sodium Potassium Chloride Carbon Dioxide BUN Creatinine Glucose POC Glucose 239 H 220 H Hemoglobin A1c Calcium Magnesium Ferritin Lactate Dehydrogenase Troponin T C-Reactive Protein Total Protein Albumin Triglycerides HDL Cholesterol Arterial Blood Glucose Coronavirus (PCR) Positive A 06/08/21 06/09/21 06/09/21 21:09 08:07 08:42 WBC 14.7 H RBC 5.28 H Hgb 14.9 H Hct 45.0 H D RDW Lymph % (Auto) 4.9 L Lymph # (Auto) 0.7 L Seg Neutrophils % 90.0 H Seg Neuts % (Manual) Lymphocytes % (Manual) Nucleated RBC % Seg Neutrophils # 13.2 H Seg Neutrophils # Man Lymphocytes # (Manual) D-Dimer POC ABG pO2 ABG Oxyhemoglobin ABG Chloride ABG Glucose Carboxyhemoglobin Sodium Potassium Chloride Carbon Dioxide BUN Creatinine Glucose POC Glucose 242 H 230 H Hemoglobin A1c Calcium Magnesium Ferritin Lactate Dehydrogenase Troponin T C-Reactive Protein Total Protein Albumin Triglycerides HDL Cholesterol Arterial Blood Glucose Coronavirus (PCR) 06/09/21 06/09/21 06/09/21 08:42 12:05 12:19 WBC RBC Hgb Hct RDW Lymph % (Auto) Lymph # (Auto) Seg Neutrophils % Seg Neuts % (Manual) Lymphocytes % (Manual) Nucleated RBC % Seg Neutrophils # Seg Neutrophils # Man Lymphocytes # (Manual) D-Dimer POC ABG pO2 71.4 L ABG Oxyhemoglobin 92.9 L ABG Chloride 109.0 H ABG Glucose 287 H Carboxyhemoglobin 0.4 L Sodium Potassium Chloride Carbon Dioxide 17 L BUN 74 H Creatinine 3.7 H Glucose 259 H POC Glucose 274 H Hemoglobin A1c Calcium 8.3 L Magnesium Ferritin Lactate Dehydrogenase Troponin T C-Reactive Protein Total Protein Albumin Triglycerides HDL Cholesterol Arterial Blood Glucose 287 H Coronavirus (PCR) 06/09/21 06/09/21 06/10/21 16:59 21:06 08:25 WBC RBC Hgb Hct RDW Lymph % (Auto) Lymph # (Auto) Seg Neutrophils % Seg Neuts % (Manual) Lymphocytes % (Manual) Nucleated RBC % Seg Neutrophils # Seg Neutrophils # Man Lymphocytes # (Manual) D-Dimer POC ABG pO2 ABG Oxyhemoglobin ABG Chloride ABG Glucose Carboxyhemoglobin Sodium Potassium Chloride Carbon Dioxide BUN Creatinine Glucose POC Glucose 268 H 263 H 280 H Hemoglobin A1c Calcium Magnesium Ferritin Lactate Dehydrogenase Troponin T C-Reactive Protein Total Protein Albumin Triglycerides HDL Cholesterol Arterial Blood Glucose Coronavirus (PCR) 06/10/21 06/10/21 06/10/21 12:07 15:38 21:04 WBC RBC Hgb Hct RDW Lymph % (Auto) Lymph # (Auto) Seg Neutrophils % Seg Neuts % (Manual) Lymphocytes % (Manual) Nucleated RBC % Seg Neutrophils # Seg Neutrophils # Man Lymphocytes # (Manual) D-Dimer POC ABG pO2 ABG Oxyhemoglobin ABG Chloride ABG Glucose Carboxyhemoglobin Sodium Potassium Chloride Carbon Dioxide BUN Creatinine Glucose POC Glucose 247 H 269 H 195 H Hemoglobin A1c Calcium Magnesium Ferritin Lactate Dehydrogenase Troponin T C-Reactive Protein Total Protein Albumin Triglycerides HDL Cholesterol Arterial Blood Glucose Coronavirus (PCR) 06/10/21 06/10/21 06/10/21 23:14 23:14 23:14 WBC RBC Hgb Hct RDW 15.3 H Lymph % (Auto) Lymph # (Auto) Seg Neutrophils % Seg Neuts % (Manual) 93.0 H Lymphocytes % (Manual) 2.0 L Nucleated RBC % 3.0 H Seg Neutrophils # Seg Neutrophils # Man 10.2 H Lymphocytes # (Manual) 0.2 L D-Dimer POC ABG pO2 ABG Oxyhemoglobin ABG Chloride ABG Glucose Carboxyhemoglobin Sodium 148 H D Potassium Chloride 111.7 H Carbon Dioxide 20 L BUN 70 H Creatinine 3.2 H Glucose 186 H POC Glucose Hemoglobin A1c Calcium Magnesium 2.50 H Ferritin Lactate Dehydrogenase 606 H Troponin T C-Reactive Protein Total Protein Albumin Triglycerides HDL Cholesterol Arterial Blood Glucose Coronavirus (PCR) 06/10/21 06/10/21 06/11/21 23:14 23:14 07:34 WBC RBC Hgb Hct RDW Lymph % (Auto) Lymph # (Auto) Seg Neutrophils % Seg Neuts % (Manual) Lymphocytes % (Manual) Nucleated RBC % Seg Neutrophils # Seg Neutrophils # Man Lymphocytes # (Manual) D-Dimer > 97564 H POC ABG pO2 ABG Oxyhemoglobin ABG Chloride ABG Glucose Carboxyhemoglobin Sodium Potassium Chloride Carbon Dioxide BUN Creatinine Glucose POC Glucose 169 H Hemoglobin A1c Calcium Magnesium Ferritin 1319.0 H Lactate Dehydrogenase Troponin T C-Reactive Protein Total Protein Albumin Triglycerides HDL Cholesterol Arterial Blood Glucose Coronavirus (PCR) 06/11/21 06/11/21 06/11/21 10:57 10:57 10:58 WBC 11.3 H RBC Hgb Hct RDW 15.3 H Lymph % (Auto) Lymph # (Auto) Seg Neutrophils % Seg Neuts % (Manual) 88.0 H Lymphocytes % (Manual) 6.0 L Nucleated RBC % Seg Neutrophils # Seg Neutrophils # Man 9.9 H Lymphocytes # (Manual) 0.7 L D-Dimer > 25940 H POC ABG pO2 ABG Oxyhemoglobin ABG Chloride ABG Glucose Carboxyhemoglobin Sodium Potassium Chloride Carbon Dioxide BUN Creatinine Glucose POC Glucose Hemoglobin A1c Calcium Magnesium Ferritin 1300.0 H Lactate Dehydrogenase Troponin T C-Reactive Protein Total Protein Albumin Triglycerides HDL Cholesterol Arterial Blood Glucose Coronavirus (PCR) 06/11/21 06/11/21 06/11/21 10:58 11:49 15:49 WBC RBC Hgb Hct RDW Lymph % (Auto) Lymph # (Auto) Seg Neutrophils % Seg Neuts % (Manual) Lymphocytes % (Manual) Nucleated RBC % Seg Neutrophils # Seg Neutrophils # Man Lymphocytes # (Manual) D-Dimer POC ABG pO2 ABG Oxyhemoglobin ABG Chloride ABG Glucose Carboxyhemoglobin Sodium 150 H Potassium 3.4 L Chloride 114.8 H Carbon Dioxide 21 L BUN 65 H Creatinine 2.9 H Glucose 180 H POC Glucose 191 H 185 H Hemoglobin A1c Calcium Magnesium 2.50 H Ferritin Lactate Dehydrogenase Troponin T C-Reactive Protein 1.90 H Total Protein Albumin Triglycerides HDL Cholesterol Arterial Blood Glucose Coronavirus (PCR)
--- NOTE | 2021-06-11 18:19 | Progress Note ---
Assessment and Plan Cultures: SARS CoV2 PCR: positive 06/08/2021 blood culture: No growth Urine culture: skin ade. A/P: 76-year-old female with diabetes, hypertension, history of liver abscess, Klebsiella bacteremia admitted with fever, chills, shortness of breath: #Bilateral pneumonia: secondary to COVID-19. Unvaccinated. Chest x-ray revealed bilateral patchy multifocal pneumonia, CT chest, abdomen pelvis revealed no pulmonary embolism, showed bilateral pneumonia, no acute abnormality in the abdomen or pelvis. #Acute hypoxic respiratory failure: on HFNC #DM #HTN #Thrombocytopenia Recs: continue IV/PO Dexamethasone x 10 days continue IV remdesivir x 5 days prophylactic anticoagulation based on d-dimer per hospital protocol Complete 5 days ceftriaxone trend ferritin, d-dimer, CRP every 2-3 days CRP currently too low to be a good candidate for Actemra Radha Butler MD [facility] ([facility] O: [phone] F: [phone] Subjective Date of service: 06/11/21 Principal diagnosis: TREMAINE Interval history: Afebrile, white count 11.3. Currently on high flow nasal cannula. Objective - Exam Narrative Exam: Physical exam deferred to reduce risk of transmission of COVID-19. Please refer to primary team's note. - Constitutional Vitals: Vital Signs Temp Pulse Resp BP Pulse Ox 97.7 F 91 H 20 143/95 87 06/11/21 16:36 06/11/21 16:36 06/11/21 16:36 06/11/21 16:36 06/11/21 16:36 Temperature -Last 24 Hours Temperature 97.7 F Temperature 122.0 F Temperature 97.5 F Temperature 97.2 F Temperature 97.9 F - Labs CBC & Chem 7: 06/11/21 10:58 06/11/21 10:58 Labs: Abnormal lab results 06/10/21 06/10/21 06/10/21 Range/Units 21:04 23:14 23:14 WBC (4.5-11.0) K/mm3 RDW 15.3 H (13.2-15.2) % Seg Neuts % (Manual) 93.0 H (40.0-70.0) % Lymphocytes % (Manual) 2.0 L (13.4-35.0) % Nucleated RBC % 3.0 H (0.0-0.9) % Seg Neutrophils # Man 10.2 H (1.8-7.7) K/mm3 Lymphocytes # (Manual) 0.2 L (1.2-5.4) K/mm3 D-Dimer (0-234) ng/mlDDU Sodium 148 H D (137-145) mmol/L Potassium (3.6-5.0) mmol/L Chloride 111.7 H (98-107) mmol/L Carbon Dioxide 20 L (22-30) mmol/L BUN 70 H (7-17) mg/dL Creatinine 3.2 H (0.6-1.2) mg/dL Glucose 186 H (65-100) mg/dL POC Glucose 195 H (70-105) mg/dL Magnesium (1.7-2.3) mg/dL Ferritin (10.0-200.0) ng/mL Lactate Dehydrogenase (91-180) units/L C-Reactive Protein (0.00-1.30) mg/dL 06/10/21 06/10/21 06/10/21 Range/Units 23:14 23:14 23:14 WBC (4.5-11.0) K/mm3 RDW (13.2-15.2) % Seg Neuts % (Manual) (40.0-70.0) % Lymphocytes % (Manual) (13.4-35.0) % Nucleated RBC % (0.0-0.9) % Seg Neutrophils # Man (1.8-7.7) K/mm3 Lymphocytes # (Manual) (1.2-5.4) K/mm3 D-Dimer > 06573 H (0-234) ng/mlDDU Sodium (137-145) mmol/L Potassium (3.6-5.0) mmol/L Chloride (98-107) mmol/L Carbon Dioxide (22-30) mmol/L BUN (7-17) mg/dL Creatinine (0.6-1.2) mg/dL Glucose (65-100) mg/dL POC Glucose (70-105) mg/dL Magnesium 2.50 H (1.7-2.3) mg/dL Ferritin 1319.0 H (10.0-200.0) ng/mL Lactate Dehydrogenase 606 H (91-180) units/L C-Reactive Protein (0.00-1.30) mg/dL 06/11/21 06/11/21 06/11/21 Range/Units 07:34 10:57 10:57 WBC (4.5-11.0) K/mm3 RDW (13.2-15.2) % Seg Neuts % (Manual) (40.0-70.0) % Lymphocytes % (Manual) (13.4-35.0) % Nucleated RBC % (0.0-0.9) % Seg Neutrophils # Man (1.8-7.7) K/mm3 Lymphocytes # (Manual) (1.2-5.4) K/mm3 D-Dimer > 43315 H (0-234) ng/mlDDU Sodium (137-145) mmol/L Potassium (3.6-5.0) mmol/L Chloride (98-107) mmol/L Carbon Dioxide (22-30) mmol/L BUN (7-17) mg/dL Creatinine (0.6-1.2) mg/dL Glucose (65-100) mg/dL POC Glucose 169 H (70-105) mg/dL Magnesium (1.7-2.3) mg/dL Ferritin 1300.0 H (10.0-200.0) ng/mL Lactate Dehydrogenase (91-180) units/L C-Reactive Protein (0.00-1.30) mg/dL 06/11/21 06/11/21 06/11/21 Range/Units 10:58 10:58 11:49 WBC 11.3 H (4.5-11.0) K/mm3 RDW 15.3 H (13.2-15.2) % Seg Neuts % (Manual) 88.0 H (40.0-70.0) % Lymphocytes % (Manual) 6.0 L (13.4-35.0) % Nucleated RBC % (0.0-0.9) % Seg Neutrophils # Man 9.9 H (1.8-7.7) K/mm3 Lymphocytes # (Manual) 0.7 L (1.2-5.4) K/mm3 D-Dimer (0-234) ng/mlDDU Sodium 150 H (137-145) mmol/L Potassium 3.4 L (3.6-5.0) mmol/L Chloride 114.8 H (98-107) mmol/L Carbon Dioxide 21 L (22-30) mmol/L BUN 65 H (7-17) mg/dL Creatinine 2.9 H (0.6-1.2) mg/dL Glucose 180 H (65-100) mg/dL POC Glucose 191 H (70-105) mg/dL Magnesium 2.50 H (1.7-2.3) mg/dL Ferritin (10.0-200.0) ng/mL Lactate Dehydrogenase (91-180) units/L C-Reactive Protein 1.90 H (0.00-1.30) mg/dL 06/11/21 Range/Units 15:49 WBC (4.5-11.0) K/mm3 RDW (13.2-15.2) % Seg Neuts % (Manual) (40.0-70.0) % Lymphocytes % (Manual) (13.4-35.0) % Nucleated RBC % (0.0-0.9) % Seg Neutrophils # Man (1.8-7.7) K/mm3 Lymphocytes # (Manual) (1.2-5.4) K/mm3 D-Dimer (0-234) ng/mlDDU Sodium (137-145) mmol/L Potassium (3.6-5.0) mmol/L Chloride (98-107) mmol/L Carbon Dioxide (22-30) mmol/L BUN (7-17) mg/dL Creatinine (0.6-1.2) mg/dL Glucose (65-100) mg/dL POC Glucose 185 H (70-105) mg/dL Magnesium (1.7-2.3) mg/dL Ferritin (10.0-200.0) ng/mL Lactate Dehydrogenase (91-180) units/L C-Reactive Protein (0.00-1.30) mg/dL
[2021-06-11] MEDS: cefTRIAXone/NS 2 GM/100 ML 2 GM/100 ML BAG IV SCH (21:35)
[2021-06-12] MEDS: SODIUM CHLORIDE 0.45% 1000 ML 1,000 ML IV SCH ×2 (01:08→13:50)
[2021-06-12] MEDS: LEVOTHYROXINE 75 MCG TAB PO SCH (05:44)
[2021-06-12] MEDS: LEVOTHYROXINE 100 MCG TAB PO SCH (05:44)
[2021-06-12] MEDS: ONDANSETRON 4 MG ODT TAB PO SCH ×3 (05:44→22:53)
[2021-06-12] MEDS: hydrALAZINE 25 MG TAB PO SCH ×3 (05:45→22:52)
[2021-06-12 05:51] LABS: ABG Base Excess -5.6 mmol/L (-2.0-3.0); ABG HCO3 20.1 mmol/L (20.0-26.0); ABG Methemoglobin 0.5 % (0.0-1.5); ABG Oxygen Saturation 86.9 % (95.0-99.0); ABG PCO2 40.1 mm Hg; ABG PH 7.318 pH Units (7.350-7.450); ABG PO2 51.5 mm Hg (80.0-90.0)
[2021-06-12] MEDS: INSULIN REGULAR, HUMAN 100 UNITS/1 ML SUB-Q SCH ×4 (07:47→22:53)
[2021-06-12] MEDS: INSULIN NPH/REGULAR 70/30 INJ SUB-Q SCH ×2 (07:47→16:08)
[2021-06-12 09:12] LABS: Calcium 8.5 mg/dL (8.4-10.2)
[2021-06-12 09:14] LABS: Calcium 8.3 mg/dL (8.4-10.2)
--- NOTE | 2021-06-12 09:31 | Progress Note ---
Assessment and Plan #Suspected COVID-19 breakthrough infection #COVID-19 pneumonia #Acute renal failure versus acute on chronic renal failure #Acute hypoxic respiratory failure #Insulin-dependent type 2 diabetes- uncontrolled #Elevated troponin #Hypertension-controlled #Hypothyroidism #Protein calorie malnutrition #Hypernatremia Cr trending down Na high, Continue 1/2 NS at 100 cc/hr, D5W 500 cc bolus once. On sodium bicarb tabs for acidosis Replace Phos renal US -ve for hydronephrosis renally dose meds strict I&O daily weight no indication for STAFF RADIOLOGIST. Subjective Date of service: 06/12/21 Principal diagnosis: TREMAINE Interval history: Making urine. Objective - Exam Narrative Exam: General appearance: Present: no acute distress - EENT Eyes: Present: PERRL, EOM intact ENT: hearing intact, clear oral mucosa, dentition normal - Neck Neck: Present: supple, normal ROM - Respiratory Respiratory effort: labored Respiratory: bilateral: diminished (Difficult to auscultate given body habitus), rhonchi, negative: CTA, rales, wheezing - Cardiovascular Rhythm: regular Heart Sounds: Present: S1 & S2 - Extremities Extremities: no ischemia, pulses intact, pulses symmetrical, No edema, normal temperature, normal color Peripheral Pulses: within normal limits - Abdominal General gastrointestinal: soft, non-tender, non-distended, normal bowel sounds (Difficult to assess given body habitus) - Integumentary Integumentary: Present: clear, warm, dry - Psychiatric Psychiatric: appropriate mood/affect, intact judgment & insight, memory intact, cooperative - Neurologic Neurologic: CNII-XII intact, moves all extremities - Allied Health Allied health notes reviewed: nursing - Vital Signs Vital signs: Vital Signs - 12hr 06/11/21 06/11/21 06/11/21 21:35 21:36 22:00 Temperature Pulse Rate 105 H 105 H Respiratory Rate Blood Pressure 150/104 150/104 O2 Sat by Pulse 94 Oximetry 06/11/21 06/12/21 06/12/21 23:00 03:29 05:12 Temperature 98.9 F Pulse Rate 97 H Respiratory 18 Rate Blood Pressure 131/65 O2 Sat by Pulse 98 97 89 Oximetry 06/12/21 05:45 Temperature Pulse Rate 97 H Respiratory Rate Blood Pressure 131/65 O2 Sat by Pulse Oximetry - Lab 06/12/21 08:31 06/12/21 08:31 Most recent lab results ABG pH 7.318 pH Units (7.350-7.450) L 06/12/21 04:22 ABG pCO2 40.1 mm Hg 06/12/21 04:22 ABG pO2 51.5 mm Hg (80.0-90.0) L 06/12/21 04:22 ABG HCO3 20.1 mmol/L (20.0-26.0) 06/12/21 04:22 ABG O2 Saturation 86.9 % (95.0-99.0) L 06/12/21 04:22 Calcium 8.3 mg/dL (8.4-10.2) L 06/12/21 08:31 Calcium 8.5 mg/dL (8.4-10.2) 06/12/21 08:31 Phosphorus 3.20 mg/dL (2.5-4.5) 06/11/21 10:58 Magnesium 2.50 mg/dL (1.7-2.3) H 06/12/21 08:31 Medications & Allergies - Medications Allergies/Adverse Reactions: Allergies latex Allergy (Verified 03/19/19 17:03) Unknown shellfish derived Allergy (Verified 03/19/19 17:03) Anaphylaxis strawberry Allergy (Verified 03/19/19 17:03) Anaphylaxis tomato Allergy (Verified 03/19/19 17:03) Anaphylaxis nuts Allergy (Uncoded 03/19/19 17:03) Anaphylaxis Home Medications: Home Medications Medication Instructions Recorded Confirmed Last Taken Type Albuterol Sulfate [Ventolin HFA] 2 puff IH Q4H PRN 01/29/14 06/11/21 02/01/15 History Levothyroxine (Nf) [Synthroid (Nf)] 275 mcg PO QAM 01/29/14 06/11/21 02/01/15 History Fluticasone/Salmeterol [Advair 1 each IH PRN PRN 01/26/15 06/11/21 02/02/15 10:00 History Diskus 250-50 mcg] Apixaban [Eliquis starter pack] 5 mg PO BID 09/13/19 06/11/21 Unknown History Insulin Aspart Prot/Insuln Asp 45 unit SUB-Q QAM 09/13/19 06/11/21 Unknown History [Novolog Mix 70-30 Flexpen] Insulin Glargine,Hum.rec.anlog 25 unit SQ HS 09/13/19 06/11/21 Unknown History [Basaglar Kwikpen U-100] Lovastatin [Altoprev] 20 mg PO DAILY 09/13/19 06/11/21 Unknown History Docusate Sodium [Colace CAP] 100 mg PO BID PRN #30 capsule 09/17/19 06/11/21 Unknown Rx Loratadine/Pseudoephedrine 1 each PO Q24HR #10 tablet 09/17/19 06/11/21 Unknown Rx [Claritin-D 24HR] Ondansetron [Zofran Odt] 4 mg PO Q8HR #20 tab.rapdis 09/17/19 06/11/21 Unknown Rx carvediloL [Coreg] 3.125 mg PO BID #60 tablet 09/17/19 06/11/21 Unknown Rx hydrALAZINE [Apresoline TAB] 25 mg PO Q8HR #90 tablet 09/17/19 06/11/21 Unknown Rx Active Medications: Generic Name Dose Route Start Last Admin Trade Name Freq PRN Reason Stop Dose Admin Acetaminophen 650 mg 06/07/21 21:41 Acetaminophen 325 Mg Tab PO Q4H PRN Pain MILD(1-3)/Fever >100.5/MARTÍNEZ Albuterol 2 puff 06/07/21 23:00 Albuterol 8.5 Gm Mdi Inhalation IH Q4HRT PRN Shortness Of Breath Alprazolam 0.125 mg 06/07/21 22:33 Alprazolam 0.25 Mg Tab PO Q8H PRN Anxiety Apixaban 5 mg 06/08/21 10:00 06/11/21 21:35 Apixaban 5 Mg Tab PO 5 mg BID LEONOR Administration Atorvastatin Calcium 10 mg 06/08/21 10:00 06/11/21 09:25 Atorvastatin 10 Mg Tab PO 10 mg DAILY LEONOR Administration Carvedilol 3.125 mg 06/07/21 22:00 06/11/21 21:35 Carvedilol 3.125 Mg Tab PO 3.125 mg BID LEONOR Administration Dexamethasone 8 mg 06/08/21 10:00 06/11/21 09:24 Dexamethasone 4 Mg/Ml Vial IV 06/16/21 10:01 8 mg Q24HR LEONOR Administration Dextrose 50 ml 06/08/21 12:04 Dextrose 50% In Water (25gm) 50 Ml Syringe IV Q30MIN PRN Hypoglycemia Protocol Docusate Sodium 100 mg 06/07/21 21:33 Docusate Sodium 100 Mg Cap PO BID PRN Constipation Famotidine 10 mg 06/08/21 10:00 06/11/21 21:37 Famotidine 20 Mg/2 Ml Inj IV 10 mg BID LEONOR Administration Guaifenesin 10 ml 06/09/21 00:15 06/11/21 06:12 Guaifenesin Dm 200/20 Mg Oral Liqd 10 Ml PO 10 ml Q4H PRN Administration Cough Hydralazine HCl 25 mg 06/07/21 22:00 06/12/21 05:45 Hydralazine 25 Mg Tab PO 25 mg Q8HR LEONOR Administration Hydromorphone HCl 0.5 mg 06/07/21 21:41 Hydromorphone 1 Mg/1 Ml Inj IV Q3H PRN Pain , Severe (7-10) Hydromorphone HCl 0.25 mg 06/07/21 22:33 Hydromorphone 1 Mg/1 Ml Inj IV Q4H PRN Pain, Moderate (4-6) Dextrose 1,000 mls @ 125 mls/hr 06/11/21 14:00 D5w IV DIRECT LEONOR Sodium Chloride 1,000 mls @ 100 mls/hr 06/11/21 14:00 06/12/21 01:08 Nacl 0.45% 1000 Ml IV 100 mls/hr DIRECT LEONOR Administration Insulin Human Isoph/Insulin Regular 30 unit 06/11/21 08:00 06/12/21 07:47 Insulin Nph/Regular 70/30 Inj SUB-Q 30 unit BIDDIAB LEONOR Administration Insulin Human Regular 0 units 06/08/21 12:15 06/12/21 07:47 Insulin Regular, Human 100 Units/1 Ml SUB-Q 3 units ACHS LEONOR Administration Protocol Levothyroxine Sodium 75 mcg 06/08/21 06:00 06/12/21 05:44 Levothyroxine 75 Mcg Tab PO 75 mcg QAM@0600 LEONOR Administration Levothyroxine Sodium 200 mcg 06/08/21 06:00 06/12/21 05:44 Levothyroxine 100 Mcg Tab PO 200 mcg DAILY@0600 LEONOR Administration Loratadine/Pseudoephedrine Sulfate 1 each 06/08/21 10:00 06/11/21 09:43 Loratadine/Pseudoephedrine 10-240 Mg Tab 24hr PO Not Given Q24HR LEONOR Ondansetron HCl 4 mg 06/07/21 22:00 06/12/21 05:44 Ondansetron 4 Mg Odt Tab PO 4 mg Q8HR LEONOR Administration Ondansetron HCl 4 mg 06/07/21 21:41 06/10/21 06:24 Ondansetron 4 Mg/2 Ml Inj IV 4 mg Q8H PRN Administration Nausea And Vomiting Oxycodone/Acetaminophen 1 tab 06/07/21 21:41 06/09/21 17:05 Oxycodone /Acetaminophen 5-325mg Tab PO 1 tab Q6H PRN Administration Pain, Moderate (4-6) Sodium Bicarbonate 650 mg 06/10/21 14:00 06/11/21 21:35 Sodium Bicarbonate 650 Mg Tab PO 650 mg TID LEONOR Administration Sodium Chloride 10 ml 06/07/21 22:00 06/11/21 21:37 Sodium Chloride 0.9% 10 Ml Flush Syringe IV 10 ml BID LEONOR Administration Sodium Chloride 10 ml 06/07/21 21:41 Sodium Chloride 0.9% 10 Ml Flush Syringe IV PRN PRN LINE FLUSH
[2021-06-12 09:45] LABS: Monocytes % (Auto) 2.5 % (0.0-7.3)
[2021-06-12] MEDS: carvediloL 3.125 MG TAB PO SCH ×2 (09:51→22:52)
[2021-06-12] MEDS: APIXABAN 5 MG TAB PO SCH ×2 (09:51→22:53)
[2021-06-12] MEDS: dexAMETHasone 4 MG/ML VIAL IV SCH (09:51)
[2021-06-12] MEDS: FAMOTIDINE 20 MG/2 ML INJ IV SCH ×2 (09:51→22:52)
[2021-06-12] MEDS: SODIUM BICARBONATE 650 MG TAB PO SCH ×3 (09:51→20:53)
[2021-06-12] MEDS: LORATADINE/PSEUDOEPHEDRINE 10-240 MG TAB 24HR PO SCH (09:52)
[2021-06-12 10:48] LABS: Basophils % (Auto) 0.1 % (0.0-1.8); Eosinophils % (Auto) 0.8 % (0.0-4.3); Hemoglobin 12.9 gm/dl (10.1-14.3); Lymphocytes # (Auto) 1.1 K/mm3 (1.2-5.4); Lymphocytes % (Auto) 8.5 % (13.4-35.0); Mean Corpuscular HGB Conc 32 % (30-34); Mean Corpuscular Volume 87 fl (79-97); Monocytes # (Auto) 0.3 K/mm3 (0.0-0.8); Platelet Count 177 K/mm3 (140-440); Red Blood Count 4.57 M/mm3 (3.65-5.03); Red Cell Distribution Width 15.3 % (13.2-15.2)
[2021-06-12 10:49] LABS: Eosinophils # (Auto) 0.1 K/mm3 (0.0-0.4)
[2021-06-12] MEDS ORDERED: SODIUM PHOSPHATE 15 MMOL in SODIUM CHLORIDE 0.9% 250ML 250 ML IV ONE (13:22)
[2021-06-12] MEDS ORDERED: DEXTROSE 5% IN WATER 1,000 ML IV SCH (14:00)
--- NOTE | 2021-06-12 14:26 | Progress Note ---
Assessment and Plan Assessment and plan: #Severe COVID-19 breakthrough infection #Severe COVID-19 pneumonia #Severe ARDS -Patient admits to being vaccinated with the [employer] vaccine earlier this year; however, several family members have been diagnosed with Covid recently -continue airborne and contact isolation per COVID-19 protocol -Inflammatory markers elevated; continue to monitor every 2 to 3 days -Infectious disease consulted; appreciate recs. Acetemra given on 06/09/2021 -Currently on high flow/Vapotherm requiring 40 L / 100% FiO2 -AB.3/40/50 (06/12/2021)--> PF ratio of 50 (indicative of severe ARDS); will reach out to pulmonology for further recs -We will initiate steroid (prednisone 40 mg daily) treatment. Patient is not a candidate for remdesivir due to renal failure -Continue ascorbic acid, zinc sulfate, and vitamin D supplementation per COVID- 19 protocol #Acute hypoxic respiratory failure -Currently on Vapotherm/high flow 40 L / 100% -Pulmonology consulted on admission; appreciate recs -Chest x-ray revealing bilateral pneumonia concerning for COVID-19 breakthrough infection #Hypernatremia -Na 151 -Likely secondary to patient's decreased p.o. intake; encouraged to increase li quid intake. Patient expressed understanding -Free water deficit of 5.8 L. Initiating D5W 125 cc/hour. Nephrology recommending D5W 500 cc bolus x1 -We will continue to monitor #Acute renal failure versus acute on chronic renal failure-improving -Creatinine 2.5 (baseline unknown) -Nephrology consulted on admission; appreciate recs -Continue to monitor renal function and encouraging increased p.o. intake -Avoiding nephrotoxic medications #Insulin-dependent type 2 diabetes- uncontrolled -Pending hemoglobin A1c -Continue scheduled NPH with medium sliding scale insulin -We will continue to monitor. Blood sugar goal 140-180 #Elevated troponin-resolved -Elevated troponins likely secondary to type II etiology -Cardiology consulted on admission; appreciate recs -TTE unchanged from previous imaging #Hypertension-controlled -Continue home antihypertensives -We will continue to follow #Hypothyroidism -Continue home medications -We will defer on testing TSH due to current medical condition #Protein calorie malnutrition -Nutrition consulted upon admission -Patient admitted to having decreased p.o. intake for approximately 1 to 2 weeks prior to admission; encouraging p.o. intake #History of DVT -Continue home Eliquis; like Eliquis will also cover for DVT prophylaxis #Discharge planning -Consulted physical therapy to evaluate. Disposition Plan: Continue medical Total Time Spent with Patient (Minutes): 30 min History Interval history: No acute events overnight. Hospitalist Physical - Constitutional Vitals: Temp Pulse Resp BP Pulse Ox 98.9 F 97 H 18 131/65 90 06/12/21 05:12 06/12/21 13:50 06/12/21 05:12 06/12/21 13:50 06/12/21 10:00 General appearance: Present: no acute distress - EENT Eyes: Present: PERRL, EOM intact ENT: hearing intact, clear oral mucosa, poor dentition - Neck Neck: Present: supple, normal ROM - Respiratory Respiratory effort: labored Respiratory: bilateral: diminished, rhonchi, negative: wheezing - Cardiovascular Rhythm: regular Heart Sounds: Present: S1 & S2 - Extremities Extremities: no ischemia, pulses intact, pulses symmetrical, No edema, normal temperature, normal color Peripheral Pulses: within normal limits - Abdominal General gastrointestinal: soft, non-tender, non-distended - Integumentary Integumentary: Present: clear, warm, dry - Psychiatric Psychiatric: appropriate mood/affect, intact judgment & insight, memory intact, cooperative - Neurologic Neurologic: CNII-XII intact, moves all extremities - Allied Health Allied health notes reviewed: nursing HEART Score - HEART Score EKG: Non-specific Age: 45-65 Risk factors: 1-2 risk factors Troponin: Troponin T 0.021 ng/mL (0.00-0.029) 06/08/21 13:49 - Critical Actions Critical Actions: 0-3 pts:0.9-1.7%risk of adverse cardiac event.Candidate for discharge Results - Labs CBC & Chem 7: 06/12/21 08:31 06/12/21 08:31 Labs: Laboratory Last Values WBC 12.4 K/mm3 (4.5-11.0) H 06/12/21 08:31 RBC 4.57 M/mm3 (3.65-5.03) 06/12/21 08:31 Hgb 12.9 gm/dl (10.1-14.3) 06/12/21 08:31 Hct 40.0 % (30.3-42.9) 06/12/21 08:31 MCV 87 fl (79-97) 06/12/21 08:31 MCH 28 pg (28-32) 06/12/21 08:31 MCHC 32 % (30-34) 06/12/21 08:31 RDW 15.3 % (13.2-15.2) H 06/12/21 08:31 Plt Count 177 K/mm3 (140-440) 06/12/21 08:31 Lymph % (Auto) 8.5 % (13.4-35.0) L 06/12/21 08:31 Brooks % (Auto) 2.5 % (0.0-7.3) 06/12/21 08:31 Eos % (Auto) 0.8 % (0.0-4.3) 06/12/21 08:31 Baso % (Auto) 0.1 % (0.0-1.8) 06/12/21 08:31 Lymph # (Auto) 1.1 K/mm3 (1.2-5.4) L 06/12/21 08:31 Brooks # (Auto) 0.3 K/mm3 (0.0-0.8) 06/12/21 08:31 Eos # (Auto) 0.1 K/mm3 (0.0-0.4) 06/12/21 08:31 Baso # (Auto) 0.0 K/mm3 (0.0-0.1) 06/12/21 08:31 Add Manual Diff Complete 06/11/21 10:58 Total Counted 100 06/11/21 10:58 Seg Neutrophils % 88.1 % (40.0-70.0) H 06/12/21 08:31 Seg Neuts % (Manual) 88.0 % (40.0-70.0) H 06/11/21 10:58 Band Neutrophils % 4.0 % 06/11/21 10:58 Lymphocytes % (Manual) 6.0 % (13.4-35.0) L 06/11/21 10:58 Monocytes % (Manual) 2.0 % (0.0-7.3) 06/11/21 10:58 Metamyelocytes % 2.0 % 06/10/21 23:14 Nucleated RBC % Not Reportable 06/11/21 10:58 Seg Neutrophils # 10.9 K/mm3 (1.8-7.7) H 06/12/21 08:31 Seg Neutrophils # Man 9.9 K/mm3 (1.8-7.7) H 06/11/21 10:58 Band Neutrophils # 0.5 K/mm3 06/11/21 10:58 Lymphocytes # (Manual) 0.7 K/mm3 (1.2-5.4) L 06/11/21 10:58 Abs React Lymphs (Man) 0.0 K/mm3 06/11/21 10:58 Monocytes # (Manual) 0.2 K/mm3 (0.0-0.8) 06/11/21 10:58 Eosinophils # (Manual) 0.0 K/mm3 (0.0-0.4) 06/11/21 10:58 Basophils # (Manual) 0.0 K/mm3 (0.0-0.1) 06/11/21 10:58 Metamyelocytes # 0.0 K/mm3 06/11/21 10:58 Myelocytes # 0.0 K/mm3 06/11/21 10:58 Promyelocytes # 0.0 K/mm3 06/11/21 10:58 Blast Cells # 0.0 K/mm3 06/11/21 10:58 WBC Morphology Not Reportable 06/11/21 10:58 WBC Morphology TNR 06/11/21 10:58 Hypersegmented Neuts Not Reportable 06/11/21 10:58 Hyposegmented Neuts Not Reportable 06/11/21 10:58 Hypogranular Neuts Not Reportable 06/11/21 10:58 Smudge Cells Not Reportable 06/11/21 10:58 Toxic Granulation Not Reportable 06/11/21 10:58 Toxic Vacuolation Not Reportable 06/11/21 10:58 Dohle Bodies Not Reportable 06/11/21 10:58 Pelger-Huet Anomaly Not Reportable 06/11/21 10:58 Nba Rods Not Reportable 06/11/21 10:58 Platelet Estimate Not Reportable 06/11/21 10:58 Clumped Platelets Not Reportable 06/11/21 10:58 Plt Clumps, EDTA Not Reportable 06/11/21 10:58 Large Platelets Not Reportable 06/11/21 10:58 Giant Platelets Not Reportable 06/11/21 10:58 Platelet Satelliting Not Reportable 06/11/21 10:58 Plt Morphology Comment Not Reportable 06/11/21 10:58 RBC Morphology Not Reportable 06/11/21 10:58 Dimorphic RBCs Not Reportable 06/11/21 10:58 Polychromasia Not Reportable 06/11/21 10:58 Hypochromasia Not Reportable 06/11/21 10:58 Poikilocytosis 1+ 06/11/21 10:58 Anisocytosis 1+ 06/11/21 10:58 Microcytosis Not Reportable 06/11/21 10:58 Macrocytosis Not Reportable 06/11/21 10:58 Spherocytes Not Reportable 06/11/21 10:58 Pappenheimer Bodies Not Reportable 06/11/21 10:58 Sickle Cells Not Reportable 06/11/21 10:58 Target Cells Not Reportable 06/11/21 10:58 Tear Drop Cells Not Reportable 06/11/21 10:58 Ovalocytes Not Reportable 06/11/21 10:58 Helmet Cells Not Reportable 06/11/21 10:58 [place] Bodies Not Reportable 06/11/21 10:58 [place] Rings Not Reportable 06/11/21 10:58 Barbie Cells Not Reportable 06/11/21 10:58 Bite Cells Not Reportable 06/11/21 10:58 Crenated Cell Not Reportable 06/11/21 10:58 Elliptocytes Not Reportable 06/11/21 10:58 Acanthocytes (Spur) Not Reportable 06/11/21 10:58 Rouleaux Not Reportable 06/11/21 10:58 Hemoglobin C Crystals Not Reportable 06/11/21 10:58 Schistocytes Not Reportable 06/11/21 10:58 Malaria parasites Not Reportable 06/11/21 10:58 Luis Bodies Not Reportable 06/11/21 10:58 Hem Pathologist Commnt No 06/11/21 10:58 D-Dimer > 49567 ng/mlDDU (0-234) H 06/11/21 10:57 ABG pH 7.318 pH Units (7.350-7.450) L 06/12/21 04:22 POC ABG pCO2 34.2 mmHg (32.0-48.0) 06/09/21 12:19 ABG pCO2 40.1 mm Hg 06/12/21 04:22 POC ABG pO2 71.4 mmHg (83-108) L 06/09/21 12:19 ABG pO2 51.5 mm Hg (80.0-90.0) L 06/12/21 04:22 POC ABG HCO3 20.5 06/09/21 12:19 ABG HCO3 20.1 mmol/L (20.0-26.0) 06/12/21 04:22 ABG O2 Saturation 86.9 % (95.0-99.0) L 06/12/21 04:22 ABG O2 Content 16.2 (0.0-44) 06/12/21 04:22 POC ABG Base Excess -3.6 06/09/21 12:19 ABG Base Excess -5.6 mmol/L (-2.0-3.0) L 06/12/21 04:22 ABG Hemoglobin 13.5 gm/dl (12.0-16.0) 06/12/21 04:22 ABG Oxyhemoglobin 92.9 (94-98) L 06/09/21 12:19 ABG Carboxyhemoglobin 1.1 % (0.0-5.0) 06/12/21 04:22 ABG Methemoglobin 0.5 % (0.0-1.5) 06/12/21 04:22 ABG Sodium 143.5 mmol/L (136.0-145.0) 06/09/21 12:19 ABG Potassium 3.6 mmol/L (3.40-4.50) 06/09/21 12:19 ABG Chloride 109.0 mmol/L (98-107) H 06/09/21 12:19 ABG Glucose 287 mg/dL (65-95) H 06/09/21 12:19 Oxyhemoglobin 85.5 % (95.0-99.0) L 06/12/21 04:22 Carboxyhemoglobin 0.4 (0.5-1.5) L 06/09/21 12:19 FiO2 100 % 06/12/21 04:22 FiO2 % 75.0 06/09/21 12:19 Sodium 151 mmol/L (137-145) H 06/12/21 08:31 Potassium 3.7 mmol/L (3.6-5.0) 06/12/21 08:31 Chloride 117.3 mmol/L (98-107) H 06/12/21 08:31 Carbon Dioxide 21 mmol/L (22-30) L 06/12/21 08:31 Anion Gap 16 mmol/L 06/12/21 08:31 BUN 61 mg/dL (7-17) H 06/12/21 08:31 Creatinine 2.5 mg/dL (0.6-1.2) H 06/12/21 08:31 Estimated GFR 24 ml/min 06/12/21 08:31 BUN/Creatinine Ratio 24 % 06/12/21 08:31 Glucose 165 mg/dL (65-100) H 06/12/21 08:31 POC Glucose 156 mg/dL (70-105) H 06/12/21 10:32 Hemoglobin A1c 9.5 % (4-6) H 06/07/21 19:11 Calcium 8.3 mg/dL (8.4-10.2) L 06/12/21 08:31 Calcium 8.5 mg/dL (8.4-10.2) 06/12/21 08:31 Phosphorus 3.20 mg/dL (2.5-4.5) 06/11/21 10:58 Magnesium 2.50 mg/dL (1.7-2.3) H 06/12/21 08:31 Ferritin 1300.0 ng/mL (10.0-200.0) H 06/11/21 10:57 Total Bilirubin 0.30 mg/dL (0.1-1.2) 06/08/21 03:44 AST 29 units/L (5-40) 06/08/21 03:44 ALT 19 units/L (7-56) 06/08/21 03:44 Alkaline Phosphatase 58 units/L (35-129) 06/08/21 03:44 Lactate Dehydrogenase 606 units/L (91-180) H 06/10/21 23:14 Troponin T 0.021 ng/mL (0.00-0.029) 06/08/21 13:49 C-Reactive Protein 1.90 mg/dL (0.00-1.30) H 06/11/21 10:58 Total Protein 7.9 g/dL (6.3-8.2) 06/08/21 03:44 Albumin 3.4 g/dL (3.9-5) L 06/08/21 03:44 Albumin/Globulin Ratio 0.8 % 06/08/21 03:44 Triglycerides 209 mg/dL (2-149) H 06/07/21 19:11 Cholesterol 165 mg/dL (50-199) 06/07/21 19:11 LDL Cholesterol Direct 79 mg/dL (50-130) 06/07/21 19:11 HDL Cholesterol 35 mg/dL (40-59) L 06/07/21 19:11 Cholesterol/HDL Ratio 4.71 % 06/07/21 19:11 Procalcitonin 0.91 ng/mL (<0.15) 06/07/21 19:11 Arterial Blood Glucose 287 mg/dL (65-95) H 06/09/21 12:19 Coronavirus (PCR) Positive (Negative) A 06/08/21 08:30 Blood Type B POSITIVE 06/07/21 22:34 Antibody Screen Negative 06/07/21 22:34 Roland/IV: Voiding Method Condom Catheter Active Medications - Current Medications Current Medications: Generic Name Dose Route Start Last Admin Trade Name Freq PRN Reason Stop Dose Admin Acetaminophen 650 mg 06/07/21 21:41 Acetaminophen 325 Mg Tab PO Q4H PRN Pain MILD(1-3)/Fever >100.5/MARTÍNEZ Albuterol 2 puff 06/07/21 23:00 Albuterol 8.5 Gm Mdi Inhalation IH Q4HRT PRN Shortness Of Breath Alprazolam 0.125 mg 06/07/21 22:33 Alprazolam 0.25 Mg Tab PO Q8H PRN Anxiety Apixaban 5 mg 06/08/21 10:00 06/12/21 09:51 Apixaban 5 Mg Tab PO 5 mg BID LEONOR Administration Atorvastatin Calcium 10 mg 06/08/21 10:00 06/12/21 09:51 Atorvastatin 10 Mg Tab PO 10 mg DAILY LEONOR Administration Carvedilol 3.125 mg 06/07/21 22:00 06/12/21 09:51 Carvedilol 3.125 Mg Tab PO 3.125 mg BID LEONOR Administration Dexamethasone 8 mg 06/08/21 10:00 06/12/21 09:51 Dexamethasone 4 Mg/Ml Vial IV 06/16/21 10:01 8 mg Q24HR LEONOR Administration Dextrose 50 ml 06/08/21 12:04 Dextrose 50% In Water (25gm) 50 Ml Syringe IV Q30MIN PRN Hypoglycemia Protocol Docusate Sodium 100 mg 06/07/21 21:33 Docusate Sodium 100 Mg Cap PO BID PRN Constipation Famotidine 10 mg 06/08/21 10:00 06/12/21 09:51 Famotidine 20 Mg/2 Ml Inj IV 10 mg BID LEONOR Administration Guaifenesin 10 ml 06/09/21 00:15 06/11/21 06:12 Guaifenesin Dm 200/20 Mg Oral Liqd 10 Ml PO 10 ml Q4H PRN Administration Cough Hydralazine HCl 25 mg 06/07/21 22:00 06/12/21 13:50 Hydralazine 25 Mg Tab PO 25 mg Q8HR LEONOR Administration Hydromorphone HCl 0.5 mg 06/07/21 21:41 Hydromorphone 1 Mg/1 Ml Inj IV Q3H PRN Pain , Severe (7-10) Hydromorphone HCl 0.25 mg 06/07/21 22:33 Hydromorphone 1 Mg/1 Ml Inj IV Q4H PRN Pain, Moderate (4-6) Dextrose 1,000 mls @ 125 mls/hr 06/11/21 14:00 D5w IV DIRECT LEONOR Sodium Chloride 1,000 mls @ 100 mls/hr 06/11/21 14:00 06/12/21 13:50 Nacl 0.45% 1000 Ml IV 100 mls/hr DIRECT LEONOR Administration Dextrose 1,000 mls @ 500 mls/hr 06/12/21 14:00 D5w IV 06/12/21 15:00 DIRECT LEONOR Sodium Phosphate 15 mmol/ 255 mls @ 125 mls/hr 06/12/21 13:22 06/12/21 13:50 Sodium Chloride IV 06/12/21 15:24 125 mls/hr ONCE ONE Administration Insulin Human Isoph/Insulin Regular 30 unit 06/11/21 08:00 06/12/21 07:47 Insulin Nph/Regular 70/30 Inj SUB-Q 30 unit BIDDIAB LEONOR Administration Insulin Human Regular 0 units 06/08/21 12:15 06/12/21 11:38 Insulin Regular, Human 100 Units/1 Ml SUB-Q 3 units ACHS LEONOR Administration Protocol Levothyroxine Sodium 75 mcg 06/08/21 06:00 06/12/21 05:44 Levothyroxine 75 Mcg Tab PO 75 mcg QAM@0600 LEONOR Administration Levothyroxine Sodium 200 mcg 06/08/21 06:00 06/12/21 05:44 Levothyroxine 100 Mcg Tab PO 200 mcg DAILY@0600 LEONOR Administration Loratadine/Pseudoephedrine Sulfate 1 each 06/08/21 10:00 06/12/21 09:52 Loratadine/Pseudoephedrine 10-240 Mg Tab 24hr PO Not Given Q24HR LEONOR Ondansetron HCl 4 mg 06/07/21 22:00 06/12/21 13:50 Ondansetron 4 Mg Odt Tab PO 4 mg Q8HR LEONOR Administration Ondansetron HCl 4 mg 06/07/21 21:41 06/10/21 06:24 Ondansetron 4 Mg/2 Ml Inj IV 4 mg Q8H PRN Administration Nausea And Vomiting Oxycodone/Acetaminophen 1 tab 06/07/21 21:41 06/09/21 17:05 Oxycodone /Acetaminophen 5-325mg Tab PO 1 tab Q6H PRN Administration Pain, Moderate (4-6) Sodium Bicarbonate 650 mg 06/10/21 14:00 06/12/21 13:50 Sodium Bicarbonate 650 Mg Tab PO 650 mg TID LEONOR Administration Sodium Chloride 10 ml 06/07/21 22:00 06/12/21 09:51 Sodium Chloride 0.9% 10 Ml Flush Syringe IV 10 ml BID LEONOR Administration Sodium Chloride 10 ml 06/07/21 21:41 Sodium Chloride 0.9% 10 Ml Flush Syringe IV PRN PRN LINE FLUSH Nutrition/Malnutrition Assess - Dietary Evaluation Nutrition/Malnutrition Findings: Nutrition Notes Start: 06/08/21 10:56 Freq: Status: Active Protocol: Document 06/09/21 11:28 GB (Rec: 06/09/21 11:34 GB [id number]) Nutrition Notes Initial or Follow up Reassessment Current Diagnosis Acute Kidney Injury,Diabetes, Sepsis,Hypertension, Respiratory Failure Other Pertinent Diagnosis COVID-19 PUI, hypothyroid Current Diet consistent CHO/cardiac, pureed texture Labs/Tests BUN 68 Cr 4.7 BG 218 06/07: A1c 9.5 Pertinent Medications Zofran NS at 10 ml/hr Height 5 ft 11 in Weight 164.654 kg [place] Body Weight (kg) 70.45 BMI 50.6 Weight change and time frame Wt stable from previous adm on 09/17/2020 Weight Status Morbidly Obese Subjective/Other Information MD consult for malnutrition. RN screen for chewing difficutly. Per previous visit , pt does not want mech soft diet and has hx of not liking Ensure. Pt on bipap. Unable to speak with pt. Burn Absent Trauma Absent Minimum of two criteria No #1 Nutrition Diagnosis Predicted suboptimal energy intake Comments: PO intake of meals recorded currently for one day at 25%, independent with meals. Etiology ARF As Evidenced by Signs and Symptoms pt on bipap Diagnosis Progress(for reassessment Continues documentation) Is patient on ventilator? No Is Patient Ambulatory and/or Out of Bed No REE-([facility]-confined to bed) 2778.984 Kcal/Kg value to use for calculation 12 Approximate Energy Requirements Using 1976 kcal/Kg Calculation Used for Recommendations Kcal/kg Additional Notes Protein: (0.8-1g/kg AdjBW) 94- 117g/day Fluid: 1 ml/kcal Nutrition Intervention Change Diet Order: Continue Add Supplement/Snack (indicate name/kcal n/a - history of pt not liking /protein ) nutrition supplement beverages Goal #1 PO intake of meals to improve to 50% or greater TID daily during LOS Goal #2 Weight to maintain within +/-3 % current weight during LOS Follow-Up By: 06/14/21 Additional Comments Check for PO intake improvement for sign off. Nursing to record meal intake daily. - Attestation Statement I have reviewed and agreed w/ Malnutrition eval & tx plan: Yes
--- NOTE | 2021-06-12 19:55 | Progress Note ---
Assessment and Plan This is 61-year-old female, Morbidly Obese admitted with shortness of breath that has been ongoing for several days. She had been around family that had been sick with coronavirus symptoms. Patient said she has been vaccinated for COVID-19. She denies vomiting and diarrhea. Reported generalized weakness and difficulty breathing. She has had subjective fevers and chills associate with a cough. Cough has been producing yellowish phlegm. Patient has history of diabetes, Hypertension,Hyperlipidemia and hypothyroidism and CKD. Denies smoking, alcohol or drug abuse. 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 Patient and has no children. Patient sleeping and still on vapotherm, FIO2 100% and O2 saturation running 93%. BIPAP stand by in the room. Patients ABGs 06/12/21 reported PH 7.31, [id number], PO2 52, HCO3 20, O2 saturation 87% on 100% FIO2 Patient afebrile and has mild leukocytosis. Patients blood pressure 164/94. Pulse 101. Chest xray that was done 06/07/21 reported Multifocal pneumonia. Patients Repeat Holden virus PCR reported Positive. Patient is on Apixaban, Dexamethasone and Famotidine and albuterol inhaler. I spent critical care time of 35 minutes, reviewing the chart, Examine the patient, review labs and chest xray, talking to respiratory therapy and nursing staff and work out plan of treatment inthis critically ill acute hypoxic respiratory failure patient. - Patient Problems (1) Acute respiratory failure with hypoxia Current Visit: Yes Status: Acute Plan to address problem: Patient is on Vapotherm, FIO2 100% Patient is on Dexamethasone. Patient is on Apixaban. Continue famotidine. (2) Coronavirus infection Current Visit: Yes Status: Acute Plan to address problem: Patient is on dexamethasone Apixaban Management as per infectious diseases. (3) Pneumonia due to COVID-19 virus Current Visit: Yes Status: Acute Plan to address problem: Patient was on Ceftriaxone. (4) Acute kidney injury superimposed on CKD Current Visit: No Status: Acute Plan to address problem: Management as per nephrology. (5) Hypertension Current Visit: No Status: Acute Plan to address problem: Management as per primary care. (6) Diabetes mellitus type 2, insulin dependent Current Visit: No Status: Chronic Plan to address problem: Management as per primary care. (7) Hypothyroidism Current Visit: No Status: Chronic Plan to address problem: Patient is on Levothyroxine. Management as per primary care. (8) Morbid obesity Current Visit: No Status: Chronic Plan to address problem: Recommend to loose weight. Diet and exercise. Recommend sleep study as out patient once she recovered from present problem. Subjective Date of service: 06/12/21 Principal diagnosis: TREMAINE Interval history: This is 61-year-old female, Morbidly Obese admitted with shortness of breath that has been ongoing for several days. She had been around family that had been sick with coronavirus symptoms. Patient said she has been vaccinated for COVID- 19. She denies vomiting and diarrhea. Reported generalized weakness and difficulty breathing. She has had subjective fevers and chills associate with a cough. Cough has been producing yellowish phlegm. Patient has history of diabetes, Hypertension,Hyperlipidemia and hypothyroidism and CKD. Denies smoking, alcohol or drug abuse. 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 Patient and has no children. Patient sleeping and still on vapotherm, FIO2 100% and O2 saturation running 93%. BIPAP stand by in the room. Patients ABGs 06/12/21 reported PH 7.31, [id number], PO2 52, HCO3 20, O2 saturation 87% on 100% FIO2 Patient afebrile and has mild leukocytosis. Patients blood pressure 164/94. Pulse 101. Chest xray that was done 06/07/21 reported Multifocal pneumonia. Patients Repeat Holden virus PCR reported Positive. Patient is on Apixaban, Dexamethasone and Famotidine and albuterol inhaler. Objective Vital Signs - 12hr 06/12/21 06/12/21 06/12/21 08:35 09:51 10:00 Temperature Pulse Rate 97 H Respiratory Rate Blood Pressure 131/65 O2 Sat by Pulse 95 90 Oximetry 06/12/21 06/12/21 06/12/21 13:50 15:10 16:32 Temperature 97.5 F L Pulse Rate 97 H 101 H Respiratory 19 Rate Blood Pressure 131/65 164/94 O2 Sat by Pulse 93 90 Oximetry Constitutional: no acute distress, alert, asleep, other (Morbidly Obese, Mild s hortness of breath at rest. Weak.) Eyes: non-icteric ENT: oropharynx moist Neck: supple, no lymphadenopathy Effort: mildly labored Ascultation: Bilateral: diminished breath sounds, rhonchi Cardiovascular: regular rate and rhythm Gastrointestinal: normoactive bowel sounds, soft, non-tender Integumentary: normal Extremities: no cyanosis, no edema Neurologic: normal mental status, non-focal exam, pupils equal and round, CN II- XII normal Psychiatric: mood appropriate, affect normal CBC and BMP: 06/12/21 08:31 06/12/21 08:31 ABG, PT/INR, D-dimer: ABG ABG pH 7.318 pH Units (7.350-7.450) L 06/12/21 04:22 POC ABG pCO2 34.2 mmHg (32.0-48.0) 06/09/21 12:19 ABG pCO2 40.1 mm Hg 06/12/21 04:22 POC ABG pO2 71.4 mmHg (83-108) L 06/09/21 12:19 ABG pO2 51.5 mm Hg (80.0-90.0) L 06/12/21 04:22 POC ABG HCO3 20.5 06/09/21 12:19 ABG O2 Saturation 86.9 % (95.0-99.0) L 06/12/21 04:22 PT/INR, D-dimer D-Dimer > 70705 ng/mlDDU (0-234) H 06/11/21 10:57 Abnormal lab findings: Abnormal Labs 06/07/21 06/07/21 06/07/21 19:11 19:11 19:11 WBC 11.5 H RBC Hgb Hct RDW Lymph % (Auto) 6.5 L Lymph # (Auto) 0.8 L Seg Neutrophils % 89.9 H Seg Neuts % (Manual) Lymphocytes % (Manual) Nucleated RBC % Seg Neutrophils # 10.4 H Seg Neutrophils # Man Lymphocytes # (Manual) D-Dimer 5334.05 H ABG pH POC ABG pO2 ABG pO2 ABG O2 Saturation ABG Base Excess ABG Oxyhemoglobin ABG Chloride ABG Glucose Oxyhemoglobin Carboxyhemoglobin Sodium Potassium Chloride Carbon Dioxide BUN 67 H Creatinine 4.8 H Glucose 244 H POC Glucose Hemoglobin A1c Calcium Magnesium Ferritin Lactate Dehydrogenase 796 H Troponin T 0.043 H C-Reactive Protein 19.60 H Total Protein 8.4 H Albumin 3.1 L Triglycerides 209 H HDL Cholesterol 35 L Arterial Blood Glucose Coronavirus (PCR) 06/07/21 06/07/21 06/08/21 19:11 19:11 03:04 WBC RBC Hgb Hct RDW Lymph % (Auto) Lymph # (Auto) Seg Neutrophils % Seg Neuts % (Manual) Lymphocytes % (Manual) Nucleated RBC % Seg Neutrophils # Seg Neutrophils # Man Lymphocytes # (Manual) D-Dimer ABG pH POC ABG pO2 ABG pO2 ABG O2 Saturation ABG Base Excess ABG Oxyhemoglobin ABG Chloride ABG Glucose Oxyhemoglobin Carboxyhemoglobin Sodium Potassium Chloride Carbon Dioxide BUN Creatinine Glucose POC Glucose Hemoglobin A1c 9.5 H Calcium Magnesium Ferritin 1230.0 H Lactate Dehydrogenase Troponin T 0.031 H D C-Reactive Protein Total Protein Albumin Triglycerides HDL Cholesterol Arterial Blood Glucose Coronavirus (PCR) 06/08/21 06/08/21 06/08/21 03:44 03:44 08:21 WBC 12.9 H RBC Hgb Hct RDW Lymph % (Auto) Lymph # (Auto) Seg Neutrophils % Seg Neuts % (Manual) 95.0 H Lymphocytes % (Manual) 3.0 L Nucleated RBC % Seg Neutrophils # Seg Neutrophils # Man 12.3 H Lymphocytes # (Manual) 0.4 L D-Dimer ABG pH POC ABG pO2 ABG pO2 ABG O2 Saturation ABG Base Excess ABG Oxyhemoglobin ABG Chloride ABG Glucose Oxyhemoglobin Carboxyhemoglobin Sodium Potassium Chloride Carbon Dioxide 20 L D BUN 68 H Creatinine 4.7 H Glucose 218 H POC Glucose 273 H Hemoglobin A1c Calcium Magnesium Ferritin Lactate Dehydrogenase Troponin T C-Reactive Protein Total Protein Albumin 3.4 L Triglycerides HDL Cholesterol Arterial Blood Glucose Coronavirus (PCR) 06/08/21 06/08/21 06/08/21 08:30 11:00 17:29 WBC RBC Hgb Hct RDW Lymph % (Auto) Lymph # (Auto) Seg Neutrophils % Seg Neuts % (Manual) Lymphocytes % (Manual) Nucleated RBC % Seg Neutrophils # Seg Neutrophils # Man Lymphocytes # (Manual) D-Dimer ABG pH POC ABG pO2 ABG pO2 ABG O2 Saturation ABG Base Excess ABG Oxyhemoglobin ABG Chloride ABG Glucose Oxyhemoglobin Carboxyhemoglobin Sodium Potassium Chloride Carbon Dioxide BUN Creatinine Glucose POC Glucose 239 H 220 H Hemoglobin A1c Calcium Magnesium Ferritin Lactate Dehydrogenase Troponin T C-Reactive Protein Total Protein Albumin Triglycerides HDL Cholesterol Arterial Blood Glucose Coronavirus (PCR) Positive A 06/08/21 06/09/21 06/09/21 21:09 08:07 08:42 WBC 14.7 H RBC 5.28 H Hgb 14.9 H Hct 45.0 H D RDW Lymph % (Auto) 4.9 L Lymph # (Auto) 0.7 L Seg Neutrophils % 90.0 H Seg Neuts % (Manual) Lymphocytes % (Manual) Nucleated RBC % Seg Neutrophils # 13.2 H Seg Neutrophils # Man Lymphocytes # (Manual) D-Dimer ABG pH POC ABG pO2 ABG pO2 ABG O2 Saturation ABG Base Excess ABG Oxyhemoglobin ABG Chloride ABG Glucose Oxyhemoglobin Carboxyhemoglobin Sodium Potassium Chloride Carbon Dioxide BUN Creatinine Glucose POC Glucose 242 H 230 H Hemoglobin A1c Calcium Magnesium Ferritin Lactate Dehydrogenase Troponin T C-Reactive Protein Total Protein Albumin Triglycerides HDL Cholesterol Arterial Blood Glucose Coronavirus (PCR) 06/09/21 06/09/21 06/09/21 08:42 12:05 12:19 WBC RBC Hgb Hct RDW Lymph % (Auto) Lymph # (Auto) Seg Neutrophils % Seg Neuts % (Manual) Lymphocytes % (Manual) Nucleated RBC % Seg Neutrophils # Seg Neutrophils # Man Lymphocytes # (Manual) D-Dimer ABG pH POC ABG pO2 71.4 L ABG pO2 ABG O2 Saturation ABG Base Excess ABG Oxyhemoglobin 92.9 L ABG Chloride 109.0 H ABG Glucose 287 H Oxyhemoglobin Carboxyhemoglobin 0.4 L Sodium Potassium Chloride Carbon Dioxide 17 L BUN 74 H Creatinine 3.7 H Glucose 259 H POC Glucose 274 H Hemoglobin A1c Calcium 8.3 L Magnesium Ferritin Lactate Dehydrogenase Troponin T C-Reactive Protein Total Protein Albumin Triglycerides HDL Cholesterol Arterial Blood Glucose 287 H Coronavirus (PCR) 06/09/21 06/09/21 06/10/21 16:59 21:06 08:25 WBC RBC Hgb Hct RDW Lymph % (Auto) Lymph # (Auto) Seg Neutrophils % Seg Neuts % (Manual) Lymphocytes % (Manual) Nucleated RBC % Seg Neutrophils # Seg Neutrophils # Man Lymphocytes # (Manual) D-Dimer ABG pH POC ABG pO2 ABG pO2 ABG O2 Saturation ABG Base Excess ABG Oxyhemoglobin ABG Chloride ABG Glucose Oxyhemoglobin Carboxyhemoglobin Sodium Potassium Chloride Carbon Dioxide BUN Creatinine Glucose POC Glucose 268 H 263 H 280 H Hemoglobin A1c Calcium Magnesium Ferritin Lactate Dehydrogenase Troponin T C-Reactive Protein Total Protein Albumin Triglycerides HDL Cholesterol Arterial Blood Glucose Coronavirus (PCR) 06/10/21 06/10/21 06/10/21 12:07 15:38 21:04 WBC RBC Hgb Hct RDW Lymph % (Auto) Lymph # (Auto) Seg Neutrophils % Seg Neuts % (Manual) Lymphocytes % (Manual) Nucleated RBC % Seg Neutrophils # Seg Neutrophils # Man Lymphocytes # (Manual) D-Dimer ABG pH POC ABG pO2 ABG pO2 ABG O2 Saturation ABG Base Excess ABG Oxyhemoglobin ABG Chloride ABG Glucose Oxyhemoglobin Carboxyhemoglobin Sodium Potassium Chloride Carbon Dioxide BUN Creatinine Glucose POC Glucose 247 H 269 H 195 H Hemoglobin A1c Calcium Magnesium Ferritin Lactate Dehydrogenase Troponin T C-Reactive Protein Total Protein Albumin Triglycerides HDL Cholesterol Arterial Blood Glucose Coronavirus (PCR) 06/10/21 06/10/21 06/10/21 23:14 23:14 23:14 WBC RBC Hgb Hct RDW 15.3 H Lymph % (Auto) Lymph # (Auto) Seg Neutrophils % Seg Neuts % (Manual) 93.0 H Lymphocytes % (Manual) 2.0 L Nucleated RBC % 3.0 H Seg Neutrophils # Seg Neutrophils # Man 10.2 H Lymphocytes # (Manual) 0.2 L D-Dimer ABG pH POC ABG pO2 ABG pO2 ABG O2 Saturation ABG Base Excess ABG Oxyhemoglobin ABG Chloride ABG Glucose Oxyhemoglobin Carboxyhemoglobin Sodium 148 H D Potassium Chloride 111.7 H Carbon Dioxide 20 L BUN 70 H Creatinine 3.2 H Glucose 186 H POC Glucose Hemoglobin A1c Calcium Magnesium 2.50 H Ferritin Lactate Dehydrogenase 606 H Troponin T C-Reactive Protein Total Protein Albumin Triglycerides HDL Cholesterol Arterial Blood Glucose Coronavirus (PCR) 06/10/21 06/10/21 06/11/21 23:14 23:14 07:34 WBC RBC Hgb Hct RDW Lymph % (Auto) Lymph # (Auto) Seg Neutrophils % Seg Neuts % (Manual) Lymphocytes % (Manual) Nucleated RBC % Seg Neutrophils # Seg Neutrophils # Man Lymphocytes # (Manual) D-Dimer > 25958 H ABG pH POC ABG pO2 ABG pO2 ABG O2 Saturation ABG Base Excess ABG Oxyhemoglobin ABG Chloride ABG Glucose Oxyhemoglobin Carboxyhemoglobin Sodium Potassium Chloride Carbon Dioxide BUN Creatinine Glucose POC Glucose 169 H Hemoglobin A1c Calcium Magnesium Ferritin 1319.0 H Lactate Dehydrogenase Troponin T C-Reactive Protein Total Protein Albumin Triglycerides HDL Cholesterol Arterial Blood Glucose Coronavirus (PCR) 06/11/21 06/11/21 06/11/21 10:57 10:57 10:58 WBC 11.3 H RBC Hgb Hct RDW 15.3 H Lymph % (Auto) Lymph # (Auto) Seg Neutrophils % Seg Neuts % (Manual) 88.0 H Lymphocytes % (Manual) 6.0 L Nucleated RBC % Seg Neutrophils # Seg Neutrophils # Man 9.9 H Lymphocytes # (Manual) 0.7 L D-Dimer > 30706 H ABG pH POC ABG pO2 ABG pO2 ABG O2 Saturation ABG Base Excess ABG Oxyhemoglobin ABG Chloride ABG Glucose Oxyhemoglobin Carboxyhemoglobin Sodium Potassium Chloride Carbon Dioxide BUN Creatinine Glucose POC Glucose Hemoglobin A1c Calcium Magnesium Ferritin 1300.0 H Lactate Dehydrogenase Troponin T C-Reactive Protein Total Protein Albumin Triglycerides HDL Cholesterol Arterial Blood Glucose Coronavirus (PCR) 06/11/21 06/11/21 06/11/21 10:58 11:49 15:49 WBC RBC Hgb Hct RDW Lymph % (Auto) Lymph # (Auto) Seg Neutrophils % Seg Neuts % (Manual) Lymphocytes % (Manual) Nucleated RBC % Seg Neutrophils # Seg Neutrophils # Man Lymphocytes # (Manual) D-Dimer ABG pH POC ABG pO2 ABG pO2 ABG O2 Saturation ABG Base Excess ABG Oxyhemoglobin ABG Chloride ABG Glucose Oxyhemoglobin Carboxyhemoglobin Sodium 150 H Potassium 3.4 L Chloride 114.8 H Carbon Dioxide 21 L BUN 65 H Creatinine 2.9 H Glucose 180 H POC Glucose 191 H 185 H Hemoglobin A1c Calcium Magnesium 2.50 H Ferritin Lactate Dehydrogenase Troponin T C-Reactive Protein 1.90 H Total Protein Albumin Triglycerides HDL Cholesterol Arterial Blood Glucose Coronavirus (PCR) 06/11/21 06/12/21 06/12/21 21:16 04:22 07:41 WBC RBC Hgb Hct RDW Lymph % (Auto) Lymph # (Auto) Seg Neutrophils % Seg Neuts % (Manual) Lymphocytes % (Manual) Nucleated RBC % Seg Neutrophils # Seg Neutrophils # Man Lymphocytes # (Manual) D-Dimer ABG pH 7.318 L POC ABG pO2 ABG pO2 51.5 L ABG O2 Saturation 86.9 L ABG Base Excess -5.6 L ABG Oxyhemoglobin ABG Chloride ABG Glucose Oxyhemoglobin 85.5 L Carboxyhemoglobin Sodium Potassium Chloride Carbon Dioxide BUN Creatinine Glucose POC Glucose 200 H 165 H Hemoglobin A1c Calcium Magnesium Ferritin Lactate Dehydrogenase Troponin T C-Reactive Protein Total Protein Albumin Triglycerides HDL Cholesterol Arterial Blood Glucose Coronavirus (PCR) 06/12/21 06/12/21 06/12/21 08:31 08:31 08:31 WBC 12.4 H RBC Hgb Hct RDW 15.3 H Lymph % (Auto) 8.5 L Lymph # (Auto) 1.1 L Seg Neutrophils % 88.1 H Seg Neuts % (Manual) Lymphocytes % (Manual) Nucleated RBC % Seg Neutrophils # 10.9 H Seg Neutrophils # Man Lymphocytes # (Manual) D-Dimer ABG pH POC ABG pO2 ABG pO2 ABG O2 Saturation ABG Base Excess ABG Oxyhemoglobin ABG Chloride ABG Glucose Oxyhemoglobin Carboxyhemoglobin Sodium 151 H Potassium Chloride 117.3 H Carbon Dioxide 21 L BUN 61 H Creatinine 2.5 H Glucose 165 H POC Glucose Hemoglobin A1c Calcium 8.3 L Magnesium 2.50 H Ferritin Lactate Dehydrogenase Troponin T C-Reactive Protein Total Protein Albumin Triglycerides HDL Cholesterol Arterial Blood Glucose Coronavirus (PCR) 06/12/21 06/12/21 10:32 15:47 WBC RBC Hgb Hct RDW Lymph % (Auto) Lymph # (Auto) Seg Neutrophils % Seg Neuts % (Manual) Lymphocytes % (Manual) Nucleated RBC % Seg Neutrophils # Seg Neutrophils # Man Lymphocytes # (Manual) D-Dimer ABG pH POC ABG pO2 ABG pO2 ABG O2 Saturation ABG Base Excess ABG Oxyhemoglobin ABG Chloride ABG Glucose Oxyhemoglobin Carboxyhemoglobin Sodium Potassium Chloride Carbon Dioxide BUN Creatinine Glucose POC Glucose 156 H 176 H Hemoglobin A1c Calcium Magnesium Ferritin Lactate Dehydrogenase Troponin T C-Reactive Protein Total Protein Albumin Triglycerides HDL Cholesterol Arterial Blood Glucose Coronavirus (PCR)
[2021-06-12] MEDS ORDERED: LORazepam 2 MG/ML VIAL IV ONE (21:20)
[2021-06-13] MEDS: ONDANSETRON 4 MG ODT TAB PO SCH ×3 (06:37→22:47)
[2021-06-13] MEDS: hydrALAZINE 25 MG TAB PO SCH ×3 (06:37→22:43)
[2021-06-13] MEDS: LEVOTHYROXINE 100 MCG TAB PO SCH (06:37)
[2021-06-13] MEDS: LEVOTHYROXINE 75 MCG TAB PO SCH (06:37)
[2021-06-13] MEDS ORDERED: LIP THERAPY VASELINE TP PRN (07:30)
[2021-06-13 08:10] LABS: Hemoglobin 13.1 gm/dl (10.1-14.3); Mean Corpuscular HGB Conc 33 % (30-34); Mean Corpuscular Volume 87 fl (79-97); Platelet Count 165 K/mm3 (140-440); Red Blood Count 4.62 M/mm3 (3.65-5.03); Red Cell Distribution Width 15.3 % (13.2-15.2)
[2021-06-13 08:29] LABS: Calcium 8.7 mg/dL (8.4-10.2)
[2021-06-13] MEDS: SODIUM BICARBONATE 650 MG TAB PO SCH ×3 (08:32→20:22)
[2021-06-13] MEDS: INSULIN REGULAR, HUMAN 100 UNITS/1 ML SUB-Q SCH ×3 (09:05→22:47)
[2021-06-13] MEDS: INSULIN NPH/REGULAR 70/30 INJ SUB-Q SCH (09:08)
--- NOTE | 2021-06-13 10:29 | Progress Note ---
Assessment and Plan Assessment COVID-19 breakthrough infection COVID-19 pneumonia Acute renal failure versus acute on chronic renal failure Acute hypoxic respiratory failure Insulin-dependent type 2 diabetes- uncontrolled Elevated troponin Hypertension-controlled Hypothyroidism Protein calorie malnutrition Hypernatremia Plan Renal labs reviewed. Serum creatinine 3.5 today, yesterday's was 2.5, non- oliguric Renal US was negative for hydronephrosis Hypernatremia-Sodium level remains at 151 today- was on 1/2NS, now on D5W@ 125 ml/hr (this was held partially last night due to IV infiltration requiring new IV placement per nurse) Check BMP twice daily Replete potassium as needed Renally dose medications Avoid nephrotoxic agents Strict I&O's daily Obtain daily weights Plan of care reviewed by Dr. Schultz Subjective Date of service: 06/13/21 Principal diagnosis: TREMAINE Interval history: Patient on isolation for CVOID-19 infection. Objective - Vital Signs Vital signs: Vital Signs - 12hr 06/12/21 06/12/21 06/13/21 22:43 22:52 03:00 Temperature 97.7 F Pulse Rate 111 H 111 H Respiratory 20 Rate Blood Pressure 157/78 157/78 O2 Sat by Pulse 92 92 Oximetry 06/13/21 06/13/21 05:45 06:37 Temperature 98.4 F Pulse Rate 108 H 108 H Respiratory 20 Rate Blood Pressure 142/92 142/92 O2 Sat by Pulse 76 L Oximetry - Lab 06/13/21 07:42 06/13/21 07:42 Most recent lab results ABG pH 7.318 pH Units (7.350-7.450) L 06/12/21 04:22 ABG pCO2 40.1 mm Hg 06/12/21 04:22 ABG pO2 51.5 mm Hg (80.0-90.0) L 06/12/21 04:22 ABG HCO3 20.1 mmol/L (20.0-26.0) 06/12/21 04:22 ABG O2 Saturation 86.9 % (95.0-99.0) L 06/12/21 04:22 Calcium 8.7 mg/dL (8.4-10.2) 06/13/21 07:42 Phosphorus 2.80 mg/dL (2.5-4.5) 06/13/21 07:42 Magnesium 2.50 mg/dL (1.7-2.3) H 06/13/21 07:42 Medications & Allergies - Medications Allergies/Adverse Reactions: Allergies latex Allergy (Verified 03/19/19 17:03) Unknown shellfish derived Allergy (Verified 03/19/19 17:03) Anaphylaxis strawberry Allergy (Verified 03/19/19 17:03) Anaphylaxis tomato Allergy (Verified 03/19/19 17:03) Anaphylaxis nuts Allergy (Uncoded 03/19/19 17:03) Anaphylaxis Home Medications: Home Medications Medication Instructions Recorded Confirmed Last Taken Type Albuterol Sulfate [Ventolin HFA] 2 puff IH Q4H PRN 01/29/14 06/11/21 02/01/15 History Levothyroxine (Nf) [Synthroid (Nf)] 275 mcg PO QAM 01/29/14 06/11/21 02/01/15 History Fluticasone/Salmeterol [Advair 1 each IH PRN PRN 01/26/15 06/11/21 02/02/15 10:00 History Diskus 250-50 mcg] Apixaban [Eliquis starter pack] 5 mg PO BID 09/13/19 06/11/21 Unknown History Insulin Aspart Prot/Insuln Asp 45 unit SUB-Q QAM 09/13/19 06/11/21 Unknown History [Novolog Mix 70-30 Flexpen] Insulin Glargine,Hum.rec.anlog 25 unit SQ HS 09/13/19 06/11/21 Unknown History [Basaglar Kwikpen U-100] Lovastatin [Altoprev] 20 mg PO DAILY 09/13/19 06/11/21 Unknown History Docusate Sodium [Colace CAP] 100 mg PO BID PRN #30 capsule 09/17/19 06/11/21 Unknown Rx Loratadine/Pseudoephedrine 1 each PO Q24HR #10 tablet 09/17/19 06/11/21 Unknown Rx [Claritin-D 24HR] Ondansetron [Zofran Odt] 4 mg PO Q8HR #20 tab.rapdis 09/17/19 06/11/21 Unknown Rx carvediloL [Coreg] 3.125 mg PO BID #60 tablet 09/17/19 06/11/21 Unknown Rx hydrALAZINE [Apresoline TAB] 25 mg PO Q8HR #90 tablet 09/17/19 06/11/21 Unknown Rx Active Medications: Generic Name Dose Route Start Last Admin Trade Name Freq PRN Reason Stop Dose Admin Acetaminophen 650 mg 06/07/21 21:41 Acetaminophen 325 Mg Tab PO Q4H PRN Pain MILD(1-3)/Fever >100.5/MARTÍNEZ Albuterol 2 puff 06/07/21 23:00 Albuterol 8.5 Gm Mdi Inhalation IH Q4HRT PRN Shortness Of Breath Alprazolam 0.125 mg 06/07/21 22:33 Alprazolam 0.25 Mg Tab PO Q8H PRN Anxiety Apixaban 5 mg 06/08/21 10:00 06/12/21 22:53 Apixaban 5 Mg Tab PO 5 mg BID LEONOR Administration Atorvastatin Calcium 10 mg 06/08/21 10:00 06/12/21 09:51 Atorvastatin 10 Mg Tab PO 10 mg DAILY LEONOR Administration Carvedilol 3.125 mg 06/07/21 22:00 06/12/21 22:52 Carvedilol 3.125 Mg Tab PO 3.125 mg BID LEONOR Administration Dexamethasone 8 mg 06/08/21 10:00 06/12/21 09:51 Dexamethasone 4 Mg/Ml Vial IV 06/16/21 10:01 8 mg Q24HR LEONOR Administration Dextrose 50 ml 06/08/21 12:04 Dextrose 50% In Water (25gm) 50 Ml Syringe IV Q30MIN PRN Hypoglycemia Protocol Docusate Sodium 100 mg 06/07/21 21:33 Docusate Sodium 100 Mg Cap PO BID PRN Constipation Famotidine 10 mg 06/08/21 10:00 06/12/21 22:52 Famotidine 20 Mg/2 Ml Inj IV 10 mg BID LEONOR Administration Guaifenesin 10 ml 06/09/21 00:15 06/11/21 06:12 Guaifenesin Dm 200/20 Mg Oral Liqd 10 Ml PO 10 ml Q4H PRN Administration Cough Hydralazine HCl 25 mg 06/07/21 22:00 06/13/21 06:37 Hydralazine 25 Mg Tab PO 25 mg Q8HR LEONOR Administration Hydromorphone HCl 0.5 mg 06/07/21 21:41 Hydromorphone 1 Mg/1 Ml Inj IV Q3H PRN Pain , Severe (7-10) Hydromorphone HCl 0.25 mg 06/07/21 22:33 Hydromorphone 1 Mg/1 Ml Inj IV Q4H PRN Pain, Moderate (4-6) Hydrophilic Ointment 1 applic 06/13/21 07:30 Lip Therapy Vaseline TP DIRECT PRN Dry Lips Dextrose 1,000 mls @ 125 mls/hr 06/11/21 14:00 D5w IV DIRECT LEONOR Sodium Chloride 1,000 mls @ 100 mls/hr 06/11/21 14:00 06/12/21 13:50 Nacl 0.45% 1000 Ml IV 100 mls/hr DIRECT LEONOR Administration Insulin Human Isoph/Insulin Regular 30 unit 06/11/21 08:00 06/13/21 09:08 Insulin Nph/Regular 70/30 Inj SUB-Q Not Given BIDDIAB [facility] Insulin Human Regular 0 units 06/08/21 12:15 06/13/21 09:05 Insulin Regular, Human 100 Units/1 Ml SUB-Q Not Given ACHS [facility] Protocol Levothyroxine Sodium 75 mcg 06/08/21 06:00 06/13/21 06:37 Levothyroxine 75 Mcg Tab PO 75 mcg QAM@0600 [facility] Administration Levothyroxine Sodium 200 mcg 06/08/21 06:00 06/13/21 06:37 Levothyroxine 100 Mcg Tab PO 200 mcg DAILY@0600 [facility] Administration Loratadine/Pseudoephedrine Sulfate 1 each 06/08/21 10:00 06/12/21 09:52 Loratadine/Pseudoephedrine 10-240 Mg Tab 24hr PO Not Given Q24HR [facility] Ondansetron HCl 4 mg 06/07/21 22:00 06/13/21 06:37 Ondansetron 4 Mg Odt Tab PO 4 mg Q8HR LEONOR Administration Ondansetron HCl 4 mg 06/07/21 21:41 06/10/21 06:24 Ondansetron 4 Mg/2 Ml Inj IV 4 mg Q8H PRN Administration Nausea And Vomiting Oxycodone/Acetaminophen 1 tab 06/07/21 21:41 06/09/21 17:05 Oxycodone /Acetaminophen 5-325mg Tab PO 1 tab Q6H PRN Administration Pain, Moderate (4-6) Sodium Bicarbonate 650 mg 06/10/21 14:00 06/12/21 20:53 Sodium Bicarbonate 650 Mg Tab PO 650 mg TID LEONOR Administration Sodium Chloride 10 ml 06/07/21 22:00 06/12/21 22:53 Sodium Chloride 0.9% 10 Ml Flush Syringe IV 10 ml BID LEONOR Administration Sodium Chloride 10 ml 06/07/21 21:41 Sodium Chloride 0.9% 10 Ml Flush Syringe IV PRN PRN LINE FLUSH
[2021-06-13] MEDS: dexAMETHasone 4 MG/ML VIAL IV SCH (11:33)
[2021-06-13] MEDS: LORATADINE/PSEUDOEPHEDRINE 10-240 MG TAB 24HR PO SCH (11:33)
[2021-06-13] MEDS: APIXABAN 5 MG TAB PO SCH ×2 (11:33→22:44)
[2021-06-13] MEDS: FAMOTIDINE 20 MG/2 ML INJ IV SCH ×2 (11:33→22:44)
[2021-06-13] MEDS: carvediloL 3.125 MG TAB PO SCH ×2 (11:35→22:43)
--- NOTE | 2021-06-13 12:01 | Progress Note ---
Assessment and Plan Cultures: SARS CoV2 PCR positive Assessment: 61-year-old female with history of diabetes mellitus, hypertension, hyperlipidemia, hypothyroidism, vaccinated for COVID-19 with [employer] 2020, admitted on 06/07/2021 secondary to a week history of malaise, chills, fever cough, shortness of breath: #Severe sepsis : likely due to bilateral pneumonia. #Severe breakthrough COVID pneumonia: CXR with bilateral multifocal pneumonia. Infllammatory markers elevated. No indication for remdesivir due to renal failure. Received Actemra on 06/09/2021, on steroids. #Acute hypoxemic respiratory failure: Requiring BiPAP/HFNC. #TREMAINE: from sepsis/COVID #Diabetes mellitus: Uncontrolled. Glucose 244. A1c 9.5. #Morbid obesity Recommendations: -Status post Actemra 06/09/2021 -Continue dexamethasone IV/PO daily for 10 days -Monitor inflammatory markers ferritin, D-dimer, CRP -Continue anticoagulation per System Protocol -completed abx -guarded prognosis Hollie Oviedo MD, FACP [facility] ([facility]) O: [phone] F: [phone] Subjective Date of service: 06/13/21 Principal diagnosis: TREMAINE Interval history: No fever. Remains hypoxic requiring high flow nasal cannula. Objective - Exam Narrative Exam: Physical Exam (reviewed in chart to minimize risk of transmission) Constitutional: deferred Head, Ears, Nose: deferred Eyes: deferred Neck: deferred Oral: deferred Cardiovascular: deferred Respiratory: deferred GI: deferred Musculoskeletal: deferred Skin: deferred Hem/Lymphatic: deferred Psych: deferred Neurological: deferred - Constitutional Vitals: Vital Signs Temp Pulse Resp BP Pulse Ox 98.4 F 108 H 20 142/92 97 06/13/21 05:45 06/13/21 06:37 06/13/21 05:45 06/13/21 06:37 06/13/21 09:00 Temperature -Last 24 Hours Temperature 98.4 F Temperature 97.7 F Temperature 97.5 F - Labs CBC & Chem 7: 06/13/21 07:42 06/13/21 07:42 Labs: Abnormal lab results 06/12/21 06/12/21 06/13/21 Range/Units 15:47 21:50 07:42 WBC 14.1 H (4.5-11.0) K/mm3 RDW 15.3 H (13.2-15.2) % Sodium (137-145) mmol/L Potassium (3.6-5.0) mmol/L Chloride (98-107) mmol/L BUN (7-17) mg/dL Creatinine (0.6-1.2) mg/dL Glucose (65-100) mg/dL POC Glucose 176 H 165 H (70-105) mg/dL Magnesium (1.7-2.3) mg/dL 06/13/21 06/13/21 06/13/21 Range/Units 07:42 08:10 11:10 WBC (4.5-11.0) K/mm3 RDW (13.2-15.2) % Sodium 151 H (137-145) mmol/L Potassium 3.5 L (3.6-5.0) mmol/L Chloride 116.0 H (98-107) mmol/L BUN 61 H (7-17) mg/dL Creatinine 2.3 H (0.6-1.2) mg/dL Glucose 135 H (65-100) mg/dL POC Glucose 118 H 139 H (70-105) mg/dL Magnesium 2.50 H (1.7-2.3) mg/dL
--- NOTE | 2021-06-13 12:16 | Progress Note ---
Assessment and Plan Assessment and plan: #Severe COVID-19 breakthrough infection #Severe COVID-19 pneumonia #Severe ARDS -Patient admits to being vaccinated with the [employer] vaccine earlier this year; however, several family members have been diagnosed with Covid recently -continue airborne and contact isolation per COVID-19 protocol -Inflammatory markers elevated; continue to monitor every 2 to 3 days -Infectious disease consulted; appreciate recs. Acetemra given on 06/09/2021 -Currently on high flow/Vapotherm requiring 40 L / 100% FiO2 -AB.3/40/50 (06/12/2021)--> PF ratio of 50 (indicative of severe ARDS); will reach out to pulmonology for further recs -We will initiate steroid (prednisone 40 mg daily) treatment. Patient is not a candidate for remdesivir due to renal failure -Continue ascorbic acid, zinc sulfate, and vitamin D supplementation per COVID- 19 protocol #Acute hypoxic respiratory failure -Currently on Vapotherm/high flow 40 L / 100% -Pulmonology consulted on admission; appreciate recs -Chest x-ray revealing bilateral pneumonia concerning for COVID-19 breakthrough infection #Hypernatremia -Na 151 -Likely secondary to patient's decreased p.o. intake; encouraged to increase l iquid intake. Patient expressed understanding -Continue D5W 125 cc/hour. Nephrology recommending D5W 500 cc bolus x1 -We will continue to monitor #Acute renal failure versus acute on chronic renal failure-improving -Creatinine 2.3 (baseline unknown) -Nephrology consulted on admission; appreciate recs -Continue to monitor renal function and encouraging increased p.o. intake -Avoiding nephrotoxic medications #Insulin-dependent type 2 diabetes- uncontrolled -Pending hemoglobin A1c -Continue scheduled NPH with medium sliding scale insulin -We will continue to monitor. Blood sugar goal 140-180 #Elevated troponin-resolved -Elevated troponins likely secondary to type II etiology -Cardiology consulted on admission; appreciate recs -TTE unchanged from previous imaging #Hypertension-controlled -Continue home antihypertensives -We will continue to follow #Hypothyroidism -Continue home medications -We will defer on testing TSH due to current medical condition #Protein calorie malnutrition -Nutrition consulted upon admission -Patient admitted to having decreased p.o. intake for approximately 1 to 2 weeks prior to admission; encouraging p.o. intake #History of DVT -Continue home Eliquis; like Eliquis will also cover for DVT prophylaxis #Discharge planning -Consulted physical therapy to evaluate. Disposition Plan: Continue medical management Total Time Spent with Patient (Minutes): 30 History Interval history: No acute events over night Hospitalist Physical - Constitutional Vitals: Temp Pulse Resp BP Pulse Ox 98.4 F 108 H 20 142/92 97 06/13/21 05:45 06/13/21 06:37 06/13/21 05:45 06/13/21 06:37 06/13/21 09:00 General appearance: Present: no acute distress - EENT Eyes: Present: PERRL, EOM intact ENT: hearing intact, clear oral mucosa, dentition normal - Neck Neck: Present: supple, normal ROM - Respiratory Respiratory effort: labored Respiratory: bilateral: diminished, rhonchi (Diffuse) - Cardiovascular Rhythm: regular Heart Sounds: Present: S1 & S2 - Extremities Extremities: no ischemia, pulses intact, pulses symmetrical, No edema, normal temperature, normal color Peripheral Pulses: within normal limits - Abdominal General gastrointestinal: soft, non-tender, non-distended, other (Difficult to auscultate bowel sounds given body habitus) - Integumentary Integumentary: Present: clear, warm, dry - Psychiatric Psychiatric: appropriate mood/affect, intact judgment & insight, memory intact, cooperative - Neurologic Neurologic: CNII-XII intact, moves all extremities - Allied Health Allied health notes reviewed: nursing HEART Score - HEART Score EKG: Non-specific Age: 45-65 Risk factors: 1-2 risk factors Troponin: Troponin T 0.021 ng/mL (0.00-0.029) 06/08/21 13:49 - Critical Actions Critical Actions: 0-3 pts:0.9-1.7%risk of adverse cardiac event.Candidate for discharge Results - Labs CBC & Chem 7: 06/13/21 07:42 06/13/21 07:42 Labs: Laboratory Last Values WBC 14.1 K/mm3 (4.5-11.0) H 06/13/21 07:42 RBC 4.62 M/mm3 (3.65-5.03) 06/13/21 07:42 Hgb 13.1 gm/dl (10.1-14.3) 06/13/21 07:42 Hct 40.0 % (30.3-42.9) 06/13/21 07:42 MCV 87 fl (79-97) 06/13/21 07:42 MCH 29 pg (28-32) 06/13/21 07:42 MCHC 33 % (30-34) 06/13/21 07:42 RDW 15.3 % (13.2-15.2) H 06/13/21 07:42 Plt Count 165 K/mm3 (140-440) 06/13/21 07:42 Lymph % (Auto) 8.5 % (13.4-35.0) L 06/12/21 08:31 Garden % (Auto) 2.5 % (0.0-7.3) 06/12/21 08:31 Eos % (Auto) 0.8 % (0.0-4.3) 06/12/21 08:31 Baso % (Auto) 0.1 % (0.0-1.8) 06/12/21 08:31 Lymph # (Auto) 1.1 K/mm3 (1.2-5.4) L 06/12/21 08:31 Garden # (Auto) 0.3 K/mm3 (0.0-0.8) 06/12/21 08:31 Eos # (Auto) 0.1 K/mm3 (0.0-0.4) 06/12/21 08:31 Baso # (Auto) 0.0 K/mm3 (0.0-0.1) 06/12/21 08:31 Add Manual Diff Complete 06/11/21 10:58 Total Counted 100 06/11/21 10:58 Seg Neutrophils % 88.1 % (40.0-70.0) H 06/12/21 08:31 Seg Neuts % (Manual) 88.0 % (40.0-70.0) H 06/11/21 10:58 Band Neutrophils % 4.0 % 06/11/21 10:58 Lymphocytes % (Manual) 6.0 % (13.4-35.0) L 06/11/21 10:58 Monocytes % (Manual) 2.0 % (0.0-7.3) 06/11/21 10:58 Metamyelocytes % 2.0 % 06/10/21 23:14 Nucleated RBC % Not Reportable 06/11/21 10:58 Seg Neutrophils # 10.9 K/mm3 (1.8-7.7) H 06/12/21 08:31 Seg Neutrophils # Man 9.9 K/mm3 (1.8-7.7) H 06/11/21 10:58 Band Neutrophils # 0.5 K/mm3 06/11/21 10:58 Lymphocytes # (Manual) 0.7 K/mm3 (1.2-5.4) L 06/11/21 10:58 Abs React Lymphs (Man) 0.0 K/mm3 06/11/21 10:58 Monocytes # (Manual) 0.2 K/mm3 (0.0-0.8) 06/11/21 10:58 Eosinophils # (Manual) 0.0 K/mm3 (0.0-0.4) 06/11/21 10:58 Basophils # (Manual) 0.0 K/mm3 (0.0-0.1) 06/11/21 10:58 Metamyelocytes # 0.0 K/mm3 06/11/21 10:58 Myelocytes # 0.0 K/mm3 06/11/21 10:58 Promyelocytes # 0.0 K/mm3 06/11/21 10:58 Blast Cells # 0.0 K/mm3 06/11/21 10:58 WBC Morphology Not Reportable 06/11/21 10:58 WBC Morphology TNR 06/11/21 10:58 Hypersegmented Neuts Not Reportable 06/11/21 10:58 Hyposegmented Neuts Not Reportable 06/11/21 10:58 Hypogranular Neuts Not Reportable 06/11/21 10:58 Smudge Cells Not Reportable 06/11/21 10:58 Toxic Granulation Not Reportable 06/11/21 10:58 Toxic Vacuolation Not Reportable 06/11/21 10:58 Dohle Bodies Not Reportable 06/11/21 10:58 Pelger-Huet Anomaly Not Reportable 06/11/21 10:58 Nba Rods Not Reportable 06/11/21 10:58 Platelet Estimate Not Reportable 06/11/21 10:58 Clumped Platelets Not Reportable 06/11/21 10:58 Plt Clumps, EDTA Not Reportable 06/11/21 10:58 Large Platelets Not Reportable 06/11/21 10:58 Giant Platelets Not Reportable 06/11/21 10:58 Platelet Satelliting Not Reportable 06/11/21 10:58 Plt Morphology Comment Not Reportable 06/11/21 10:58 RBC Morphology Not Reportable 06/11/21 10:58 Dimorphic RBCs Not Reportable 06/11/21 10:58 Polychromasia Not Reportable 06/11/21 10:58 Hypochromasia Not Reportable 06/11/21 10:58 Poikilocytosis 1+ 06/11/21 10:58 Anisocytosis 1+ 06/11/21 10:58 Microcytosis Not Reportable 06/11/21 10:58 Macrocytosis Not Reportable 06/11/21 10:58 Spherocytes Not Reportable 06/11/21 10:58 Pappenheimer Bodies Not Reportable 06/11/21 10:58 Sickle Cells Not Reportable 06/11/21 10:58 Target Cells Not Reportable 06/11/21 10:58 Tear Drop Cells Not Reportable 06/11/21 10:58 Ovalocytes Not Reportable 06/11/21 10:58 Helmet Cells Not Reportable 06/11/21 10:58 Terry-Ehrenfeld Bodies Not Reportable 06/11/21 10:58 Liz[place]ores Rings Not Reportable 06/11/21 10:58 Dougherty Cells Not Reportable 06/11/21 10:58 Bite Cells Not Reportable 06/11/21 10:58 Crenated Cell Not Reportable 06/11/21 10:58 Elliptocytes Not Reportable 06/11/21 10:58 Acanthocytes (Spur) Not Reportable 06/11/21 10:58 Rouleaux Not Reportable 06/11/21 10:58 Hemoglobin C Crystals Not Reportable 06/11/21 10:58 Schistocytes Not Reportable 06/11/21 10:58 Malaria parasites Not Reportable 06/11/21 10:58 Luis Bodies Not Reportable 06/11/21 10:58 Hem Pathologist Commnt No 06/11/21 10:58 D-Dimer > 27986 ng/mlDDU (0-234) H 06/11/21 10:57 ABG pH 7.318 pH Units (7.350-7.450) L 06/12/21 04:22 POC ABG pCO2 34.2 mmHg (32.0-48.0) 06/09/21 12:19 ABG pCO2 40.1 mm Hg 06/12/21 04:22 POC ABG pO2 71.4 mmHg (83-108) L 06/09/21 12:19 ABG pO2 51.5 mm Hg (80.0-90.0) L 06/12/21 04:22 POC ABG HCO3 20.5 06/09/21 12:19 ABG HCO3 20.1 mmol/L (20.0-26.0) 06/12/21 04:22 ABG O2 Saturation 86.9 % (95.0-99.0) L 06/12/21 04:22 ABG O2 Content 16.2 (0.0-44) 06/12/21 04:22 POC ABG Base Excess -3.6 06/09/21 12:19 ABG Base Excess -5.6 mmol/L (-2.0-3.0) L 06/12/21 04:22 ABG Hemoglobin 13.5 gm/dl (12.0-16.0) 06/12/21 04:22 ABG Oxyhemoglobin 92.9 (94-98) L 06/09/21 12:19 ABG Carboxyhemoglobin 1.1 % (0.0-5.0) 06/12/21 04:22 ABG Methemoglobin 0.5 % (0.0-1.5) 06/12/21 04:22 ABG Sodium 143.5 mmol/L (136.0-145.0) 06/09/21 12:19 ABG Potassium 3.6 mmol/L (3.40-4.50) 06/09/21 12:19 ABG Chloride 109.0 mmol/L (98-107) H 06/09/21 12:19 ABG Glucose 287 mg/dL (65-95) H 06/09/21 12:19 Oxyhemoglobin 85.5 % (95.0-99.0) L 06/12/21 04:22 Carboxyhemoglobin 0.4 (0.5-1.5) L 06/09/21 12:19 FiO2 100 % 06/12/21 04:22 FiO2 % 75.0 06/09/21 12:19 Sodium 151 mmol/L (137-145) H 06/13/21 07:42 Potassium 3.5 mmol/L (3.6-5.0) L 06/13/21 07:42 Chloride 116.0 mmol/L (98-107) H 06/13/21 07:42 Carbon Dioxide 24 mmol/L (22-30) 06/13/21 07:42 Anion Gap 15 mmol/L 06/13/21 07:42 BUN 61 mg/dL (7-17) H 06/13/21 07:42 Creatinine 2.3 mg/dL (0.6-1.2) H 06/13/21 07:42 Estimated GFR 26 ml/min 06/13/21 07:42 BUN/Creatinine Ratio 27 % 06/13/21 07:42 Glucose 135 mg/dL (65-100) H 06/13/21 07:42 POC Glucose 139 mg/dL (70-105) H 06/13/21 11:10 Hemoglobin A1c 9.5 % (4-6) H 06/07/21 19:11 Calcium 8.7 mg/dL (8.4-10.2) 06/13/21 07:42 Phosphorus 2.80 mg/dL (2.5-4.5) 06/13/21 07:42 Magnesium 2.50 mg/dL (1.7-2.3) H 06/13/21 07:42 Ferritin 1300.0 ng/mL (10.0-200.0) H 06/11/21 10:57 Total Bilirubin 0.30 mg/dL (0.1-1.2) 06/08/21 03:44 AST 29 units/L (5-40) 06/08/21 03:44 ALT 19 units/L (7-56) 06/08/21 03:44 Alkaline Phosphatase 58 units/L (35-129) 06/08/21 03:44 Lactate Dehydrogenase 606 units/L (91-180) H 06/10/21 23:14 Troponin T 0.021 ng/mL (0.00-0.029) 06/08/21 13:49 C-Reactive Protein 1.90 mg/dL (0.00-1.30) H 06/11/21 10:58 Total Protein 7.9 g/dL (6.3-8.2) 06/08/21 03:44 Albumin 3.4 g/dL (3.9-5) L 06/08/21 03:44 Albumin/Globulin Ratio 0.8 % 06/08/21 03:44 Triglycerides 209 mg/dL (2-149) H 06/07/21 19:11 Cholesterol 165 mg/dL (50-199) 06/07/21 19:11 LDL Cholesterol Direct 79 mg/dL (50-130) 06/07/21 19:11 HDL Cholesterol 35 mg/dL (40-59) L 06/07/21 19:11 Cholesterol/HDL Ratio 4.71 % 06/07/21 19:11 Procalcitonin 0.91 ng/mL (<0.15) 06/07/21 19:11 Arterial Blood Glucose 287 mg/dL (65-95) H 06/09/21 12:19 Coronavirus (PCR) Positive (Negative) A 06/08/21 08:30 Blood Type B POSITIVE 06/07/21 22:34 Antibody Screen Negative 06/07/21 22:34 Roland/IV: Voiding Method External Female Catheter Active Medications - Current Medications Current Medications: Generic Name Dose Route Start Last Admin Trade Name Freq PRN Reason Stop Dose Admin Acetaminophen 650 mg 06/07/21 21:41 Acetaminophen 325 Mg Tab PO Q4H PRN Pain MILD(1-3)/Fever >100.5/MARTÍNEZ Albuterol 2 puff 06/07/21 23:00 Albuterol 8.5 Gm Mdi Inhalation IH Q4HRT PRN Shortness Of Breath Alprazolam 0.125 mg 06/07/21 22:33 Alprazolam 0.25 Mg Tab PO Q8H PRN Anxiety Apixaban 5 mg 06/08/21 10:00 06/13/21 11:33 Apixaban 5 Mg Tab PO Not Given BID LEONOR Atorvastatin Calcium 10 mg 06/08/21 10:00 06/13/21 11:33 Atorvastatin 10 Mg Tab PO Not Given DAILY LEONOR Carvedilol 3.125 mg 06/07/21 22:00 06/13/21 11:35 Carvedilol 3.125 Mg Tab PO Not Given BID LEONOR Dexamethasone 8 mg 06/08/21 10:00 06/13/21 11:33 Dexamethasone 4 Mg/Ml Vial IV 06/16/21 10:01 Not Given Q24HR LEONOR Dextrose 50 ml 06/08/21 12:04 Dextrose 50% In Water (25gm) 50 Ml Syringe IV Q30MIN PRN Hypoglycemia Protocol Docusate Sodium 100 mg 06/07/21 21:33 Docusate Sodium 100 Mg Cap PO BID PRN Constipation Famotidine 10 mg 06/08/21 10:00 06/13/21 11:33 Famotidine 20 Mg/2 Ml Inj IV Not Given BID LEONOR Guaifenesin 10 ml 06/09/21 00:15 06/11/21 06:12 Guaifenesin Dm 200/20 Mg Oral Liqd 10 Ml PO 10 ml Q4H PRN Administration Cough Hydralazine HCl 25 mg 06/07/21 22:00 06/13/21 06:37 Hydralazine 25 Mg Tab PO 25 mg Q8HR LEONOR Administration Hydromorphone HCl 0.5 mg 06/07/21 21:41 Hydromorphone 1 Mg/1 Ml Inj IV Q3H PRN Pain , Severe (7-10) Hydromorphone HCl 0.25 mg 06/07/21 22:33 Hydromorphone 1 Mg/1 Ml Inj IV Q4H PRN Pain, Moderate (4-6) Hydrophilic Ointment 1 applic 06/13/21 07:30 Lip Therapy Vaseline TP DIRECT PRN Dry Lips Dextrose 1,000 mls @ 125 mls/hr 06/11/21 14:00 D5w IV DIRECT LEONOR Sodium Chloride 1,000 mls @ 100 mls/hr 06/11/21 14:00 06/12/21 13:50 Nacl 0.45% 1000 Ml IV 100 mls/hr DIRECT LEONOR Administration Insulin Human Isoph/Insulin Regular 30 unit 06/11/21 08:00 06/13/21 09:08 Insulin Nph/Regular 70/30 Inj SUB-Q Not Given BIDDIAB LEONOR Insulin Human Regular 0 units 06/08/21 12:15 06/13/21 09:05 Insulin Regular, Human 100 Units/1 Ml SUB-Q Not Given ACHS [facility] Protocol Levothyroxine Sodium 75 mcg 06/08/21 06:00 06/13/21 06:37 Levothyroxine 75 Mcg Tab PO 75 mcg QAM@0600 LEONOR Administration Levothyroxine Sodium 200 mcg 06/08/21 06:00 06/13/21 06:37 Levothyroxine 100 Mcg Tab PO 200 mcg DAILY@0600 LEONOR Administration Loratadine/Pseudoephedrine Sulfate 1 each 06/08/21 10:00 06/13/21 11:33 Loratadine/Pseudoephedrine 10-240 Mg Tab 24hr PO Not Given Q24HR LEONOR Ondansetron HCl 4 mg 06/07/21 22:00 06/13/21 06:37 Ondansetron 4 Mg Odt Tab PO 4 mg Q8HR LEONOR Administration Ondansetron HCl 4 mg 06/07/21 21:41 06/10/21 06:24 Ondansetron 4 Mg/2 Ml Inj IV 4 mg Q8H PRN Administration Nausea And Vomiting Oxycodone/Acetaminophen 1 tab 06/07/21 21:41 06/09/21 17:05 Oxycodone /Acetaminophen 5-325mg Tab PO 1 tab Q6H PRN Administration Pain, Moderate (4-6) Sodium Bicarbonate 650 mg 06/10/21 14:00 06/13/21 08:32 Sodium Bicarbonate 650 Mg Tab PO Not Given TID LEONOR Sodium Chloride 10 ml 06/07/21 22:00 06/13/21 11:34 Sodium Chloride 0.9% 10 Ml Flush Syringe IV 10 ml BID LEONOR Administration Sodium Chloride 10 ml 06/07/21 21:41 Sodium Chloride 0.9% 10 Ml Flush Syringe IV PRN PRN LINE FLUSH Nutrition/Malnutrition Assess - Dietary Evaluation Nutrition/Malnutrition Findings: Nutrition Notes Start: 06/08/21 10:56 Freq: Status: Active Protocol: Document 06/09/21 11:28 GB (Rec: 06/09/21 11:34 GB [id number]) Nutrition Notes Initial or Follow up Reassessment Current Diagnosis Acute Kidney Injury,Diabetes, Sepsis,Hypertension, Respiratory Failure Other Pertinent Diagnosis COVID-19 PUI, hypothyroid Current Diet consistent CHO/cardiac, pureed texture Labs/Tests BUN 68 Cr 4.7 BG 218 06/07: A1c 9.5 Pertinent Medications Zofran NS at 10 ml/hr Height 5 ft 11 in Weight 164.654 kg [place] Body Weight (kg) 70.45 BMI 50.6 Weight change and time frame Wt stable from previous adm on 09/17/2020 Weight Status Morbidly Obese Subjective/Other Information MD consult for malnutrition. RN screen for chewing difficutly. Per previous visit , pt does not want mech soft diet and has hx of not liking Ensure. Pt on bipap. Unable to speak with pt. Burn Absent Trauma Absent Minimum of two criteria No #1 Nutrition Diagnosis Predicted suboptimal energy intake Comments: PO intake of meals recorded currently for one day at 25%, independent with meals. Etiology ARF As Evidenced by Signs and Symptoms pt on bipap Diagnosis Progress(for reassessment Continues documentation) Is patient on ventilator? No Is Patient Ambulatory and/or Out of Bed No REE-([place]-confined to bed) 2778.984 Kcal/Kg value to use for calculation 12 Approximate Energy Requirements Using 1976 kcal/Kg Calculation Used for Recommendations Kcal/kg Additional Notes Protein: (0.8-1g/kg AdjBW) 94- 117g/day Fluid: 1 ml/kcal Nutrition Intervention Change Diet Order: Continue Add Supplement/Snack (indicate name/kcal n/a - history of pt not liking /protein ) nutrition supplement beverages Goal #1 PO intake of meals to improve to 50% or greater TID daily during LOS Goal #2 Weight to maintain within +/-3 % current weight during LOS Follow-Up By: 06/14/21 Additional Comments Check for PO intake improvement for sign off. Nursing to record meal intake daily. - Attestation Statement I have reviewed and agreed w/ Malnutrition eval & tx plan: Yes
--- NOTE | 2021-06-13 14:13 | Progress Note ---
Assessment and Plan This is 61-year-old female, Morbidly Obese admitted with shortness of breath that has been ongoing for several days. She had been around family that had been sick with coronavirus symptoms. Patient said she has been vaccinated for COVID-19. She denies vomiting and diarrhea. Reported generalized weakness and difficulty breathing. She has had subjective fevers and chills associate with a cough. Cough has been producing yellowish phlegm. Patient has history of diabetes, Hypertension,Hyperlipidemia and hypothyroidism and CKD. Denies smoking, alcohol or drug abuse. 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 Patient and has no children. Patient sleeping and still on vapotherm, FIO2 100% and O2 saturation running 93%. BIPAP stand by in the room. Patient awake and still on vapotherm, FIO2 100% and O2 saturation running 89%. BIPAP stand by in the room. Patients ABGs 06/12/21 reported PH 7.31, [id number], PO2 52, HCO3 20, O2 saturation 87% on 100% FIO2 Patient afebrile and has leukocytosis. Patients blood pressure 130/96. Pulse 118. Chest xray that was done 06/07/21 reported Multifocal pneumonia. Patients Repeat Holden virus PCR reported Positive. Patient is on Apixaban, Dexamethasone and Famotidine and albuterol inhaler. I spent critical care time of 35 minutes, reviewing the chart, Examine the patient, review labs and chest xray, talking to respiratory therapy and nursing staff and work out plan of treatment inthis critically ill acute hypoxic respiratory failure patient. - Patient Problems (1) Acute respiratory failure with hypoxia Current Visit: Yes Status: Acute Plan to address problem: Patient is on Vapotherm, FIO2 100% Patient is on Dexamethasone. Patient is on Apixaban. Continue famotidine. (2) Coronavirus infection Current Visit: Yes Status: Acute Plan to address problem: Patient is on dexamethasone Apixaban Management as per infectious diseases. (3) Pneumonia due to COVID-19 virus Current Visit: Yes Status: Acute Plan to address problem: Patient was on Ceftriaxone. (4) Acute kidney injury superimposed on CKD Current Visit: No Status: Acute Plan to address problem: Management as per nephrology. (5) Hypertension Current Visit: No Status: Acute Plan to address problem: Management as per primary care. (6) Diabetes mellitus type 2, insulin dependent Current Visit: No Status: Chronic Plan to address problem: Management as per primary care. (7) Hypothyroidism Current Visit: No Status: Chronic Plan to address problem: Patient is on Levothyroxine. Management as per primary care. (8) Morbid obesity Current Visit: No Status: Chronic Plan to address problem: Recommend to loose weight. Diet and exercise. Recommend sleep study as out patient once she recovered from present problem. Subjective Date of service: 06/13/21 Principal diagnosis: TREMAINE Interval history: This is 61-year-old female, Morbidly Obese admitted with shortness of breath that has been ongoing for several days. She had been around family that had been sick with coronavirus symptoms. Patient said she has been vaccinated for COVID- 19. She denies vomiting and diarrhea. Reported generalized weakness and difficulty breathing. She has had subjective fevers and chills associate with a cough. Cough has been producing yellowish phlegm. Patient has history of diabetes, Hypertension,Hyperlipidemia and hypothyroidism and CKD. Denies smoking, alcohol or drug abuse. 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 Patient and has no children. Patient awake and still on vapotherm, FIO2 100% and O2 saturation running 89%. BIPAP stand by in the room. Patients ABGs 06/12/21 reported PH 7.31, [id number], PO2 52, HCO3 20, O2 saturation 87% on 100% FIO2 Patient afebrile and has leukocytosis. Patients blood pressure 130/96. Pulse 118. Chest xray that was done 06/07/21 reported Multifocal pneumonia. Patients Repeat Holden virus PCR reported Positive. Patient is on Apixaban, Dexamethasone and Famotidine and albuterol inhaler. Objective Vital Signs - 12hr 06/13/21 06/13/21 06/13/21 03:00 05:45 06:37 Temperature 98.4 F Pulse Rate 108 H 108 H Respiratory 20 Rate Blood Pressure 142/92 142/92 O2 Sat by Pulse 92 76 L Oximetry 06/13/21 09:00 Temperature Pulse Rate Respiratory Rate Blood Pressure O2 Sat by Pulse 97 Oximetry Constitutional: no acute distress, alert, other (Morbidly Obese, Mild shortness of breath at rest. Weak. On Vapotherm 100%.) Eyes: non-icteric ENT: oropharynx moist Neck: supple, no lymphadenopathy Effort: mildly labored Ascultation: Bilateral: diminished breath sounds, rhonchi Cardiovascular: regular rate and rhythm Gastrointestinal: normoactive bowel sounds, soft, non-tender Integumentary: normal Extremities: no cyanosis, no edema Neurologic: normal mental status, non-focal exam, pupils equal and round, CN II- XII normal Psychiatric: mood appropriate, affect normal CBC and BMP: 06/13/21 07:42 06/13/21 07:42 ABG, PT/INR, D-dimer: ABG ABG pH 7.318 pH Units (7.350-7.450) L 06/12/21 04:22 POC ABG pCO2 34.2 mmHg (32.0-48.0) 06/09/21 12:19 ABG pCO2 40.1 mm Hg 06/12/21 04:22 POC ABG pO2 71.4 mmHg (83-108) L 06/09/21 12:19 ABG pO2 51.5 mm Hg (80.0-90.0) L 06/12/21 04:22 POC ABG HCO3 20.5 06/09/21 12:19 ABG O2 Saturation 86.9 % (95.0-99.0) L 06/12/21 04:22 PT/INR, D-dimer D-Dimer > 70065 ng/mlDDU (0-234) H 06/11/21 10:57 Abnormal lab findings: Abnormal Labs 06/07/21 06/07/21 06/07/21 19:11 19:11 19:11 WBC 11.5 H RBC Hgb Hct RDW Lymph % (Auto) 6.5 L Lymph # (Auto) 0.8 L Seg Neutrophils % 89.9 H Seg Neuts % (Manual) Lymphocytes % (Manual) Nucleated RBC % Seg Neutrophils # 10.4 H Seg Neutrophils # Man Lymphocytes # (Manual) D-Dimer 5334.05 H ABG pH POC ABG pO2 ABG pO2 ABG O2 Saturation ABG Base Excess ABG Oxyhemoglobin ABG Chloride ABG Glucose Oxyhemoglobin Carboxyhemoglobin Sodium Potassium Chloride Carbon Dioxide BUN 67 H Creatinine 4.8 H Glucose 244 H POC Glucose Hemoglobin A1c Calcium Magnesium Ferritin Lactate Dehydrogenase 796 H Troponin T 0.043 H C-Reactive Protein 19.60 H Total Protein 8.4 H Albumin 3.1 L Triglycerides 209 H HDL Cholesterol 35 L Arterial Blood Glucose Coronavirus (PCR) 06/07/21 06/07/21 06/08/21 19:11 19:11 03:04 WBC RBC Hgb Hct RDW Lymph % (Auto) Lymph # (Auto) Seg Neutrophils % Seg Neuts % (Manual) Lymphocytes % (Manual) Nucleated RBC % Seg Neutrophils # Seg Neutrophils # Man Lymphocytes # (Manual) D-Dimer ABG pH POC ABG pO2 ABG pO2 ABG O2 Saturation ABG Base Excess ABG Oxyhemoglobin ABG Chloride ABG Glucose Oxyhemoglobin Carboxyhemoglobin Sodium Potassium Chloride Carbon Dioxide BUN Creatinine Glucose POC Glucose Hemoglobin A1c 9.5 H Calcium Magnesium Ferritin 1230.0 H Lactate Dehydrogenase Troponin T 0.031 H D C-Reactive Protein Total Protein Albumin Triglycerides HDL Cholesterol Arterial Blood Glucose Coronavirus (PCR) 06/08/21 06/08/21 06/08/21 03:44 03:44 08:21 WBC 12.9 H RBC Hgb Hct RDW Lymph % (Auto) Lymph # (Auto) Seg Neutrophils % Seg Neuts % (Manual) 95.0 H Lymphocytes % (Manual) 3.0 L Nucleated RBC % Seg Neutrophils # Seg Neutrophils # Man 12.3 H Lymphocytes # (Manual) 0.4 L D-Dimer ABG pH POC ABG pO2 ABG pO2 ABG O2 Saturation ABG Base Excess ABG Oxyhemoglobin ABG Chloride ABG Glucose Oxyhemoglobin Carboxyhemoglobin Sodium Potassium Chloride Carbon Dioxide 20 L D BUN 68 H Creatinine 4.7 H Glucose 218 H POC Glucose 273 H Hemoglobin A1c Calcium Magnesium Ferritin Lactate Dehydrogenase Troponin T C-Reactive Protein Total Protein Albumin 3.4 L Triglycerides HDL Cholesterol Arterial Blood Glucose Coronavirus (PCR) 06/08/21 06/08/21 06/08/21 08:30 11:00 17:29 WBC RBC Hgb Hct RDW Lymph % (Auto) Lymph # (Auto) Seg Neutrophils % Seg Neuts % (Manual) Lymphocytes % (Manual) Nucleated RBC % Seg Neutrophils # Seg Neutrophils # Man Lymphocytes # (Manual) D-Dimer ABG pH POC ABG pO2 ABG pO2 ABG O2 Saturation ABG Base Excess ABG Oxyhemoglobin ABG Chloride ABG Glucose Oxyhemoglobin Carboxyhemoglobin Sodium Potassium Chloride Carbon Dioxide BUN Creatinine Glucose POC Glucose 239 H 220 H Hemoglobin A1c Calcium Magnesium Ferritin Lactate Dehydrogenase Troponin T C-Reactive Protein Total Protein Albumin Triglycerides HDL Cholesterol Arterial Blood Glucose Coronavirus (PCR) Positive A 06/08/21 06/09/21 06/09/21 21:09 08:07 08:42 WBC 14.7 H RBC 5.28 H Hgb 14.9 H Hct 45.0 H D RDW Lymph % (Auto) 4.9 L Lymph # (Auto) 0.7 L Seg Neutrophils % 90.0 H Seg Neuts % (Manual) Lymphocytes % (Manual) Nucleated RBC % Seg Neutrophils # 13.2 H Seg Neutrophils # Man Lymphocytes # (Manual) D-Dimer ABG pH POC ABG pO2 ABG pO2 ABG O2 Saturation ABG Base Excess ABG Oxyhemoglobin ABG Chloride ABG Glucose Oxyhemoglobin Carboxyhemoglobin Sodium Potassium Chloride Carbon Dioxide BUN Creatinine Glucose POC Glucose 242 H 230 H Hemoglobin A1c Calcium Magnesium Ferritin Lactate Dehydrogenase Troponin T C-Reactive Protein Total Protein Albumin Triglycerides HDL Cholesterol Arterial Blood Glucose Coronavirus (PCR) 06/09/21 06/09/21 06/09/21 08:42 12:05 12:19 WBC RBC Hgb Hct RDW Lymph % (Auto) Lymph # (Auto) Seg Neutrophils % Seg Neuts % (Manual) Lymphocytes % (Manual) Nucleated RBC % Seg Neutrophils # Seg Neutrophils # Man Lymphocytes # (Manual) D-Dimer ABG pH POC ABG pO2 71.4 L ABG pO2 ABG O2 Saturation ABG Base Excess ABG Oxyhemoglobin 92.9 L ABG Chloride 109.0 H ABG Glucose 287 H Oxyhemoglobin Carboxyhemoglobin 0.4 L Sodium Potassium Chloride Carbon Dioxide 17 L BUN 74 H Creatinine 3.7 H Glucose 259 H POC Glucose 274 H Hemoglobin A1c Calcium 8.3 L Magnesium Ferritin Lactate Dehydrogenase Troponin T C-Reactive Protein Total Protein Albumin Triglycerides HDL Cholesterol Arterial Blood Glucose 287 H Coronavirus (PCR) 06/09/21 06/09/21 06/10/21 16:59 21:06 08:25 WBC RBC Hgb Hct RDW Lymph % (Auto) Lymph # (Auto) Seg Neutrophils % Seg Neuts % (Manual) Lymphocytes % (Manual) Nucleated RBC % Seg Neutrophils # Seg Neutrophils # Man Lymphocytes # (Manual) D-Dimer ABG pH POC ABG pO2 ABG pO2 ABG O2 Saturation ABG Base Excess ABG Oxyhemoglobin ABG Chloride ABG Glucose Oxyhemoglobin Carboxyhemoglobin Sodium Potassium Chloride Carbon Dioxide BUN Creatinine Glucose POC Glucose 268 H 263 H 280 H Hemoglobin A1c Calcium Magnesium Ferritin Lactate Dehydrogenase Troponin T C-Reactive Protein Total Protein Albumin Triglycerides HDL Cholesterol Arterial Blood Glucose Coronavirus (PCR) 06/10/21 06/10/21 06/10/21 12:07 15:38 21:04 WBC RBC Hgb Hct RDW Lymph % (Auto) Lymph # (Auto) Seg Neutrophils % Seg Neuts % (Manual) Lymphocytes % (Manual) Nucleated RBC % Seg Neutrophils # Seg Neutrophils # Man Lymphocytes # (Manual) D-Dimer ABG pH POC ABG pO2 ABG pO2 ABG O2 Saturation ABG Base Excess ABG Oxyhemoglobin ABG Chloride ABG Glucose Oxyhemoglobin Carboxyhemoglobin Sodium Potassium Chloride Carbon Dioxide BUN Creatinine Glucose POC Glucose 247 H 269 H 195 H Hemoglobin A1c Calcium Magnesium Ferritin Lactate Dehydrogenase Troponin T C-Reactive Protein Total Protein Albumin Triglycerides HDL Cholesterol Arterial Blood Glucose Coronavirus (PCR) 06/10/21 06/10/21 06/10/21 23:14 23:14 23:14 WBC RBC Hgb Hct RDW 15.3 H Lymph % (Auto) Lymph # (Auto) Seg Neutrophils % Seg Neuts % (Manual) 93.0 H Lymphocytes % (Manual) 2.0 L Nucleated RBC % 3.0 H Seg Neutrophils # Seg Neutrophils # Man 10.2 H Lymphocytes # (Manual) 0.2 L D-Dimer ABG pH POC ABG pO2 ABG pO2 ABG O2 Saturation ABG Base Excess ABG Oxyhemoglobin ABG Chloride ABG Glucose Oxyhemoglobin Carboxyhemoglobin Sodium 148 H D Potassium Chloride 111.7 H Carbon Dioxide 20 L BUN 70 H Creatinine 3.2 H Glucose 186 H POC Glucose Hemoglobin A1c Calcium Magnesium 2.50 H Ferritin Lactate Dehydrogenase 606 H Troponin T C-Reactive Protein Total Protein Albumin Triglycerides HDL Cholesterol Arterial Blood Glucose Coronavirus (PCR) 06/10/21 06/10/21 06/11/21 23:14 23:14 07:34 WBC RBC Hgb Hct RDW Lymph % (Auto) Lymph # (Auto) Seg Neutrophils % Seg Neuts % (Manual) Lymphocytes % (Manual) Nucleated RBC % Seg Neutrophils # Seg Neutrophils # Man Lymphocytes # (Manual) D-Dimer > 43742 H ABG pH POC ABG pO2 ABG pO2 ABG O2 Saturation ABG Base Excess ABG Oxyhemoglobin ABG Chloride ABG Glucose Oxyhemoglobin Carboxyhemoglobin Sodium Potassium Chloride Carbon Dioxide BUN Creatinine Glucose POC Glucose 169 H Hemoglobin A1c Calcium Magnesium Ferritin 1319.0 H Lactate Dehydrogenase Troponin T C-Reactive Protein Total Protein Albumin Triglycerides HDL Cholesterol Arterial Blood Glucose Coronavirus (PCR) 06/11/21 06/11/21 06/11/21 10:57 10:57 10:58 WBC 11.3 H RBC Hgb Hct RDW 15.3 H Lymph % (Auto) Lymph # (Auto) Seg Neutrophils % Seg Neuts % (Manual) 88.0 H Lymphocytes % (Manual) 6.0 L Nucleated RBC % Seg Neutrophils # Seg Neutrophils # Man 9.9 H Lymphocytes # (Manual) 0.7 L D-Dimer > 95054 H ABG pH POC ABG pO2 ABG pO2 ABG O2 Saturation ABG Base Excess ABG Oxyhemoglobin ABG Chloride ABG Glucose Oxyhemoglobin Carboxyhemoglobin Sodium Potassium Chloride Carbon Dioxide BUN Creatinine Glucose POC Glucose Hemoglobin A1c Calcium Magnesium Ferritin 1300.0 H Lactate Dehydrogenase Troponin T C-Reactive Protein Total Protein Albumin Triglycerides HDL Cholesterol Arterial Blood Glucose Coronavirus (PCR) 06/11/21 06/11/21 06/11/21 10:58 11:49 15:49 WBC RBC Hgb Hct RDW Lymph % (Auto) Lymph # (Auto) Seg Neutrophils % Seg Neuts % (Manual) Lymphocytes % (Manual) Nucleated RBC % Seg Neutrophils # Seg Neutrophils # Man Lymphocytes # (Manual) D-Dimer ABG pH POC ABG pO2 ABG pO2 ABG O2 Saturation ABG Base Excess ABG Oxyhemoglobin ABG Chloride ABG Glucose Oxyhemoglobin Carboxyhemoglobin Sodium 150 H Potassium 3.4 L Chloride 114.8 H Carbon Dioxide 21 L BUN 65 H Creatinine 2.9 H Glucose 180 H POC Glucose 191 H 185 H Hemoglobin A1c Calcium Magnesium 2.50 H Ferritin Lactate Dehydrogenase Troponin T C-Reactive Protein 1.90 H Total Protein Albumin Triglycerides HDL Cholesterol Arterial Blood Glucose Coronavirus (PCR) 06/11/21 06/12/21 06/12/21 21:16 04:22 07:41 WBC RBC Hgb Hct RDW Lymph % (Auto) Lymph # (Auto) Seg Neutrophils % Seg Neuts % (Manual) Lymphocytes % (Manual) Nucleated RBC % Seg Neutrophils # Seg Neutrophils # Man Lymphocytes # (Manual) D-Dimer ABG pH 7.318 L POC ABG pO2 ABG pO2 51.5 L ABG O2 Saturation 86.9 L ABG Base Excess -5.6 L ABG Oxyhemoglobin ABG Chloride ABG Glucose Oxyhemoglobin 85.5 L Carboxyhemoglobin Sodium Potassium Chloride Carbon Dioxide BUN Creatinine Glucose POC Glucose 200 H 165 H Hemoglobin A1c Calcium Magnesium Ferritin Lactate Dehydrogenase Troponin T C-Reactive Protein Total Protein Albumin Triglycerides HDL Cholesterol Arterial Blood Glucose Coronavirus (PCR) 06/12/21 06/12/21 06/12/21 08:31 08:31 08:31 WBC 12.4 H RBC Hgb Hct RDW 15.3 H Lymph % (Auto) 8.5 L Lymph # (Auto) 1.1 L Seg Neutrophils % 88.1 H Seg Neuts % (Manual) Lymphocytes % (Manual) Nucleated RBC % Seg Neutrophils # 10.9 H Seg Neutrophils # Man Lymphocytes # (Manual) D-Dimer ABG pH POC ABG pO2 ABG pO2 ABG O2 Saturation ABG Base Excess ABG Oxyhemoglobin ABG Chloride ABG Glucose Oxyhemoglobin Carboxyhemoglobin Sodium 151 H Potassium Chloride 117.3 H Carbon Dioxide 21 L BUN 61 H Creatinine 2.5 H Glucose 165 H POC Glucose Hemoglobin A1c Calcium 8.3 L Magnesium 2.50 H Ferritin Lactate Dehydrogenase Troponin T C-Reactive Protein Total Protein Albumin Triglycerides HDL Cholesterol Arterial Blood Glucose Coronavirus (PCR) 06/12/21 06/12/21 06/12/21 10:32 15:47 21:50 WBC RBC Hgb Hct RDW Lymph % (Auto) Lymph # (Auto) Seg Neutrophils % Seg Neuts % (Manual) Lymphocytes % (Manual) Nucleated RBC % Seg Neutrophils # Seg Neutrophils # Man Lymphocytes # (Manual) D-Dimer ABG pH POC ABG pO2 ABG pO2 ABG O2 Saturation ABG Base Excess ABG Oxyhemoglobin ABG Chloride ABG Glucose Oxyhemoglobin Carboxyhemoglobin Sodium Potassium Chloride Carbon Dioxide BUN Creatinine Glucose POC Glucose 156 H 176 H 165 H Hemoglobin A1c Calcium Magnesium Ferritin Lactate Dehydrogenase Troponin T C-Reactive Protein Total Protein Albumin Triglycerides HDL Cholesterol Arterial Blood Glucose Coronavirus (PCR) 06/13/21 06/13/21 06/13/21 07:42 07:42 08:10 WBC 14.1 H RBC Hgb Hct RDW 15.3 H Lymph % (Auto) Lymph # (Auto) Seg Neutrophils % Seg Neuts % (Manual) Lymphocytes % (Manual) Nucleated RBC % Seg Neutrophils # Seg Neutrophils # Man Lymphocytes # (Manual) D-Dimer ABG pH POC ABG pO2 ABG pO2 ABG O2 Saturation ABG Base Excess ABG Oxyhemoglobin ABG Chloride ABG Glucose Oxyhemoglobin Carboxyhemoglobin Sodium 151 H Potassium 3.5 L Chloride 116.0 H Carbon Dioxide BUN 61 H Creatinine 2.3 H Glucose 135 H POC Glucose 118 H Hemoglobin A1c Calcium Magnesium 2.50 H Ferritin Lactate Dehydrogenase Troponin T C-Reactive Protein Total Protein Albumin Triglycerides HDL Cholesterol Arterial Blood Glucose Coronavirus (PCR) 06/13/21 11:10 WBC RBC Hgb Hct RDW Lymph % (Auto) Lymph # (Auto) Seg Neutrophils % Seg Neuts % (Manual) Lymphocytes % (Manual) Nucleated RBC % Seg Neutrophils # Seg Neutrophils # Man Lymphocytes # (Manual) D-Dimer ABG pH POC ABG pO2 ABG pO2 ABG O2 Saturation ABG Base Excess ABG Oxyhemoglobin ABG Chloride ABG Glucose Oxyhemoglobin Carboxyhemoglobin Sodium Potassium Chloride Carbon Dioxide BUN Creatinine Glucose POC Glucose 139 H Hemoglobin A1c Calcium Magnesium Ferritin Lactate Dehydrogenase Troponin T C-Reactive Protein Total Protein Albumin Triglycerides HDL Cholesterol Arterial Blood Glucose Coronavirus (PCR)
[2021-06-13 16:30] LABS: Band Neutrophils # (Manual) 0.4 K/mm3; Platelet Estimate Consistent w Auto; RBC Morphology Normal; Total Cells Counted 100
[2021-06-13] MEDS: ALPRAZolam 0.25 MG TAB PO PRN (22:41)
[2021-06-14 00:02] LABS: Calcium 8.8 mg/dL (8.4-10.2)
[2021-06-14] MEDS ORDERED: LORazepam 2 MG/ML VIAL IV ONE ×2 (02:21→13:30)
[2021-06-14 05:27] LABS: Hematocrit 40.3 % (30.3-42.9); Mean Corpuscular HGB Conc 32 % (30-34); Mean Corpuscular Volume 88 fl (79-97); Platelet Count 153 K/mm3 (140-440); Red Cell Distribution Width 15.3 % (13.2-15.2)
[2021-06-14 05:34] LABS: Calcium 8.9 mg/dL (8.4-10.2)
[2021-06-14] MEDS: LEVOTHYROXINE 100 MCG TAB PO SCH (06:24)
[2021-06-14] MEDS: ONDANSETRON 4 MG ODT TAB PO SCH ×3 (06:25→22:22)
[2021-06-14] MEDS: hydrALAZINE 25 MG TAB PO SCH ×3 (06:25→22:13)
[2021-06-14] MEDS: LEVOTHYROXINE 75 MCG TAB PO SCH (06:25)
--- NOTE | 2021-06-14 07:14 | Progress Note ---
Assessment and Plan Assessment and plan: #Severe COVID-19 breakthrough infection #COVID-19 pneumonia #Severe ARDS -patient vaccinated -continue isolation precautions -inflammatory markers q3d -currently on high flow 40 L / 20% FiO2 -continue steroids, vitamin C, zinc and vitamin D #Acute hypoxic respiratory failure Continue high flow -Pulmonary following, recs appreciated #Hypernatremia -sodium 152 -likely secondary to poor p.o. intake -continue D5W -we will consider free water flushes if patient unable to intake on her own #Acute versus chronic renal failure -unknown baseline, SCR 2.5 today -avoid nephrotoxins -Nephrology managing #Insulin-dependent type 2 diabetes -A1c pending -continue Humulin 30 twice daily plus sliding scale -goal glucose 140-180 #Elevated troponin -resolved, likely type II #Hypertension -controlled, continue antihypertensives #Hypothyroidism -continue home levothyroxine #Protein calorie malnutrition -Nutrition consult #History of DVT -continue Eliquis #Discharge planning -pending improved respiratory status -Physical therapy consult to evaluate and treat Disposition Plan: Patient improvement Total Time Spent with Patient (Minutes): 30 minutes History Interval history: Per nursing patient reported to be agitated overnight. Was placed in restraints. This morning patient able to state where she is, but repeatedly says "I do not know" Hospitalist Physical - Physical exam Narrative exam: GENERAL: Obese. Lying in bed. HEENT: High flow at 40 L/min. CHEST/LUNGS: Coarse breath sounds bilaterally. HEART/CARDIOVASCULAR: Tachycardic. No murmur, rubs or gallops appreciated. ABDOMEN: +BS. NT/ND. SKIN: No rash EXTREMITIES: No cyanosis, clubbing or edema. PSYCH: Agitated. Alert to person and place. - Constitutional Vitals: Temp Pulse Resp BP Pulse Ox 97.6 F 107 H 32 H 165/98 94 06/14/21 05:08 06/14/21 05:08 06/14/21 05:08 06/14/21 05:08 06/14/21 05:08 General appearance: Present: no acute distress HEART Score - HEART Score EKG: Non-specific Age: 45-65 Risk factors: 1-2 risk factors Troponin: Troponin T 0.021 ng/mL (0.00-0.029) 06/08/21 13:49 - Critical Actions Critical Actions: 0-3 pts:0.9-1.7%risk of adverse cardiac event.Candidate for discharge Results - Labs CBC & Chem 7: 06/14/21 04:42 06/14/21 04:42 Labs: Laboratory Last Values WBC 12.8 K/mm3 (4.5-11.0) H 06/14/21 04:42 RBC 4.60 M/mm3 (3.65-5.03) 06/14/21 04:42 Hgb 13.0 gm/dl (10.1-14.3) 06/14/21 04:42 Hct 40.3 % (30.3-42.9) 06/14/21 04:42 MCV 88 fl (79-97) 06/14/21 04:42 MCH 28 pg (28-32) 06/14/21 04:42 MCHC 32 % (30-34) 06/14/21 04:42 RDW 15.3 % (13.2-15.2) H 06/14/21 04:42 Plt Count 153 K/mm3 (140-440) 06/14/21 04:42 Lymph % (Auto) 8.5 % (13.4-35.0) L 06/12/21 08:31 [place] % (Auto) 2.5 % (0.0-7.3) 06/12/21 08:31 Eos % (Auto) 0.8 % (0.0-4.3) 06/12/21 08:31 Baso % (Auto) 0.1 % (0.0-1.8) 06/12/21 08:31 Lymph # (Auto) 1.1 K/mm3 (1.2-5.4) L 06/12/21 08:31 [place] # (Auto) 0.3 K/mm3 (0.0-0.8) 06/12/21 08:31 Eos # (Auto) 0.1 K/mm3 (0.0-0.4) 06/12/21 08:31 Baso # (Auto) 0.0 K/mm3 (0.0-0.1) 06/12/21 08:31 Add Manual Diff Complete 06/13/21 07:42 Total Counted 100 06/13/21 07:42 Seg Neutrophils % 88.1 % (40.0-70.0) H 06/12/21 08:31 Seg Neuts % (Manual) 87.0 % (40.0-70.0) H 06/13/21 07:42 Band Neutrophils % 3.0 % 06/13/21 07:42 Lymphocytes % (Manual) 7.0 % (13.4-35.0) L 06/13/21 07:42 Monocytes % (Manual) 2.0 % (0.0-7.3) 06/13/21 07:42 Eosinophils % (Manual) 1.0 % (0.0-4.3) 06/13/21 07:42 Metamyelocytes % 2.0 % 06/10/21 23:14 Nucleated RBC % 3.0 % (0.0-0.9) H 06/13/21 07:42 Seg Neutrophils # 10.9 K/mm3 (1.8-7.7) H 06/12/21 08:31 Seg Neutrophils # Man 12.3 K/mm3 (1.8-7.7) H 06/13/21 07:42 Band Neutrophils # 0.4 K/mm3 06/13/21 07:42 Lymphocytes # (Manual) 1.0 K/mm3 (1.2-5.4) L 06/13/21 07:42 Abs React Lymphs (Man) 0.0 K/mm3 06/13/21 07:42 Monocytes # (Manual) 0.3 K/mm3 (0.0-0.8) 06/13/21 07:42 Eosinophils # (Manual) 0.1 K/mm3 (0.0-0.4) 06/13/21 07:42 Basophils # (Manual) 0.0 K/mm3 (0.0-0.1) 06/13/21 07:42 Metamyelocytes # 0.0 K/mm3 06/13/21 07:42 Myelocytes # 0.0 K/mm3 06/13/21 07:42 Promyelocytes # 0.0 K/mm3 06/13/21 07:42 Blast Cells # 0.0 K/mm3 06/13/21 07:42 WBC Morphology Not Reportable 06/13/21 07:42 Hypersegmented Neuts Not Reportable 06/13/21 07:42 Hyposegmented Neuts Not Reportable 06/13/21 07:42 Hypogranular Neuts Not Reportable 06/13/21 07:42 Smudge Cells Not Reportable 06/13/21 07:42 Toxic Granulation Not Reportable 06/13/21 07:42 Toxic Vacuolation Not Reportable 06/13/21 07:42 Dohle Bodies Not Reportable 06/13/21 07:42 Pelger-Huet Anomaly Not Reportable 06/13/21 07:42 Nba Rods Not Reportable 06/13/21 07:42 Platelet Estimate Consistent w auto 06/13/21 07:42 Clumped Platelets Not Reportable 06/13/21 07:42 Plt Clumps, EDTA Not Reportable 06/13/21 07:42 Large Platelets Not Reportable 06/13/21 07:42 Giant Platelets Not Reportable 06/13/21 07:42 Platelet Satelliting Not Reportable 06/13/21 07:42 Plt Morphology Comment Not Reportable 06/13/21 07:42 RBC Morphology Normal 06/13/21 07:42 Dimorphic RBCs Not Reportable 06/13/21 07:42 Polychromasia Not Reportable 06/13/21 07:42 Hypochromasia Not Reportable 06/13/21 07:42 Poikilocytosis Not Reportable 06/13/21 07:42 Anisocytosis Not Reportable 06/13/21 07:42 Microcytosis Not Reportable 06/13/21 07:42 Macrocytosis Not Reportable 06/13/21 07:42 Spherocytes Not Reportable 06/13/21 07:42 Pappenheimer Bodies Not Reportable 06/13/21 07:42 Sickle Cells Not Reportable 06/13/21 07:42 Target Cells Not Reportable 06/13/21 07:42 Tear Drop Cells Not Reportable 06/13/21 07:42 Ovalocytes Not Reportable 06/13/21 07:42 Helmet Cells Not Reportable 06/13/21 07:42 [place] Bodies Not Reportable 06/13/21 07:42 [place] Rings Not Reportable 06/13/21 07:42 [place] Cells Not Reportable 06/13/21 07:42 Bite Cells Not Reportable 06/13/21 07:42 Crenated Cell Not Reportable 06/13/21 07:42 Elliptocytes Not Reportable 06/13/21 07:42 Acanthocytes (Spur) Not Reportable 06/13/21 07:42 Rouleaux Not Reportable 06/13/21 07:42 Hemoglobin C Crystals Not Reportable 06/13/21 07:42 Schistocytes Not Reportable 06/13/21 07:42 Malaria parasites Not Reportable 06/13/21 07:42 Luis Bodies Not Reportable 06/13/21 07:42 Hem Pathologist Commnt No 06/13/21 07:42 D-Dimer > 61113 ng/mlDDU (0-234) H 06/11/21 10:57 ABG pH 7.318 pH Units (7.350-7.450) L 06/12/21 04:22 POC ABG pCO2 34.2 mmHg (32.0-48.0) 06/09/21 12:19 ABG pCO2 40.1 mm Hg 06/12/21 04:22 POC ABG pO2 71.4 mmHg (83-108) L 06/09/21 12:19 ABG pO2 51.5 mm Hg (80.0-90.0) L 06/12/21 04:22 POC ABG HCO3 20.5 06/09/21 12:19 ABG HCO3 20.1 mmol/L (20.0-26.0) 06/12/21 04:22 ABG O2 Saturation 86.9 % (95.0-99.0) L 06/12/21 04:22 ABG O2 Content 16.2 (0.0-44) 06/12/21 04:22 POC ABG Base Excess -3.6 06/09/21 12:19 ABG Base Excess -5.6 mmol/L (-2.0-3.0) L 06/12/21 04:22 ABG Hemoglobin 13.5 gm/dl (12.0-16.0) 06/12/21 04:22 ABG Oxyhemoglobin 92.9 (94-98) L 06/09/21 12:19 ABG Carboxyhemoglobin 1.1 % (0.0-5.0) 06/12/21 04:22 ABG Methemoglobin 0.5 % (0.0-1.5) 06/12/21 04:22 ABG Sodium 143.5 mmol/L (136.0-145.0) 06/09/21 12:19 ABG Potassium 3.6 mmol/L (3.40-4.50) 06/09/21 12:19 ABG Chloride 109.0 mmol/L (98-107) H 06/09/21 12:19 ABG Glucose 287 mg/dL (65-95) H 06/09/21 12:19 Oxyhemoglobin 85.5 % (95.0-99.0) L 06/12/21 04:22 Carboxyhemoglobin 0.4 (0.5-1.5) L 06/09/21 12:19 FiO2 100 % 06/12/21 04:22 FiO2 % 75.0 06/09/21 12:19 Sodium 152 mmol/L (137-145) H 06/14/21 04:42 Potassium 4.0 mmol/L (3.6-5.0) 06/14/21 04:42 Chloride 115.3 mmol/L (98-107) H 06/14/21 04:42 Carbon Dioxide 23 mmol/L (22-30) 06/14/21 04:42 Anion Gap 18 mmol/L 06/14/21 04:42 BUN 68 mg/dL (7-17) H 06/14/21 04:42 Creatinine 2.5 mg/dL (0.6-1.2) H 06/14/21 04:42 Estimated GFR 24 ml/min 06/14/21 04:42 BUN/Creatinine Ratio 27 % 06/14/21 04:42 Glucose 188 mg/dL (65-100) H 06/14/21 04:42 POC Glucose 193 mg/dL (70-105) H 06/13/21 21:54 Hemoglobin A1c 9.5 % (4-6) H 06/07/21 19:11 Calcium 8.9 mg/dL (8.4-10.2) 06/14/21 04:42 Calcium 9.0 mg/dL (8.4-10.2) 06/14/21 04:42 Phosphorus 3.30 mg/dL (2.5-4.5) 06/14/21 04:42 Magnesium 2.40 mg/dL (1.7-2.3) H 06/14/21 04:42 Ferritin 1300.0 ng/mL (10.0-200.0) H 06/11/21 10:57 Total Bilirubin 0.30 mg/dL (0.1-1.2) 06/08/21 03:44 AST 29 units/L (5-40) 06/08/21 03:44 ALT 19 units/L (7-56) 06/08/21 03:44 Alkaline Phosphatase 58 units/L (35-129) 06/08/21 03:44 Lactate Dehydrogenase 606 units/L (91-180) H 06/10/21 23:14 Troponin T 0.021 ng/mL (0.00-0.029) 06/08/21 13:49 C-Reactive Protein 1.90 mg/dL (0.00-1.30) H 06/11/21 10:58 Total Protein 7.9 g/dL (6.3-8.2) 06/08/21 03:44 Albumin 3.4 g/dL (3.9-5) L 06/08/21 03:44 Albumin/Globulin Ratio 0.8 % 06/08/21 03:44 Triglycerides 209 mg/dL (2-149) H 06/07/21 19:11 Cholesterol 165 mg/dL (50-199) 06/07/21 19:11 LDL Cholesterol Direct 79 mg/dL (50-130) 06/07/21 19:11 HDL Cholesterol 35 mg/dL (40-59) L 06/07/21 19:11 Cholesterol/HDL Ratio 4.71 % 06/07/21 19:11 Procalcitonin 0.91 ng/mL (<0.15) 06/07/21 19:11 Arterial Blood Glucose 287 mg/dL (65-95) H 06/09/21 12:19 Coronavirus (PCR) Positive (Negative) A 06/08/21 08:30 Blood Type B POSITIVE 06/07/21 22:34 Antibody Screen Negative 06/07/21 22:34 Roland/IV: Voiding Method Incontinent Active Medications - Current Medications Current Medications: Generic Name Dose Route Start Last Admin Trade Name Freq PRN Reason Stop Dose Admin Acetaminophen 650 mg 06/07/21 21:41 Acetaminophen 325 Mg Tab PO Q4H PRN Pain MILD(1-3)/Fever >100.5/MARTÍNEZ Albuterol 2 puff 06/07/21 23:00 Albuterol 8.5 Gm Mdi Inhalation IH Q4HRT PRN Shortness Of Breath Alprazolam 0.125 mg 06/07/21 22:33 06/13/21 22:41 Alprazolam 0.25 Mg Tab PO 0.125 mg Q8H PRN Administration Anxiety Apixaban 5 mg 06/08/21 10:00 06/13/21 22:44 Apixaban 5 Mg Tab PO 5 mg BID LEONOR Administration Atorvastatin Calcium 10 mg 06/08/21 10:00 06/13/21 11:33 Atorvastatin 10 Mg Tab PO Not Given DAILY LEONOR Carvedilol 3.125 mg 06/07/21 22:00 06/13/21 22:43 Carvedilol 3.125 Mg Tab PO 3.125 mg BID LEONOR Administration Dexamethasone 8 mg 06/08/21 10:00 06/13/21 11:33 Dexamethasone 4 Mg/Ml Vial IV 06/16/21 10:01 Not Given Q24HR LEONOR Dextrose 50 ml 06/08/21 12:04 Dextrose 50% In Water (25gm) 50 Ml Syringe IV Q30MIN PRN Hypoglycemia Protocol Docusate Sodium 100 mg 06/07/21 21:33 Docusate Sodium 100 Mg Cap PO BID PRN Constipation Famotidine 10 mg 06/08/21 10:00 06/13/21 22:44 Famotidine 20 Mg/2 Ml Inj IV 10 mg BID LEONOR Administration Guaifenesin 10 ml 06/09/21 00:15 06/11/21 06:12 Guaifenesin Dm 200/20 Mg Oral Liqd 10 Ml PO 10 ml Q4H PRN Administration Cough Hydralazine HCl 25 mg 06/07/21 22:00 06/14/21 06:25 Hydralazine 25 Mg Tab PO 25 mg Q8HR LEONOR Administration Hydromorphone HCl 0.5 mg 06/07/21 21:41 Hydromorphone 1 Mg/1 Ml Inj IV Q3H PRN Pain , Severe (7-10) Hydromorphone HCl 0.25 mg 06/07/21 22:33 Hydromorphone 1 Mg/1 Ml Inj IV Q4H PRN Pain, Moderate (4-6) Hydrophilic Ointment 1 applic 06/13/21 07:30 Lip Therapy Vaseline TP DIRECT PRN Dry Lips Dextrose 1,000 mls @ 125 mls/hr 06/11/21 14:00 D5w IV DIRECT LEONOR Sodium Chloride 1,000 mls @ 100 mls/hr 06/11/21 14:00 06/12/21 13:50 Nacl 0.45% 1000 Ml IV 100 mls/hr DIRECT LEONOR Administration Insulin Human Isoph/Insulin Regular 30 unit 06/11/21 08:00 06/13/21 09:08 Insulin Nph/Regular 70/30 Inj SUB-Q Not Given BIDDIAB LEONOR Insulin Human Regular 0 units 06/08/21 12:15 06/13/21 22:47 Insulin Regular, Human 100 Units/1 Ml SUB-Q 3 units ACHS LEONOR Administration Protocol Levothyroxine Sodium 75 mcg 06/08/21 06:00 06/14/21 06:25 Levothyroxine 75 Mcg Tab PO 75 mcg QAM@0600 [facility] Administration Levothyroxine Sodium 200 mcg 06/08/21 06:00 06/14/21 06:24 Levothyroxine 100 Mcg Tab PO 200 mcg DAILY@0600 [facility] Administration Loratadine/Pseudoephedrine Sulfate 1 each 06/08/21 10:00 06/13/21 11:33 Loratadine/Pseudoephedrine 10-240 Mg Tab 24hr PO Not Given Q24HR [facility] Ondansetron HCl 4 mg 06/07/21 22:00 06/14/21 06:25 Ondansetron 4 Mg Odt Tab PO 4 mg Q8HR [facility] Administration Ondansetron HCl 4 mg 06/07/21 21:41 06/10/21 06:24 Ondansetron 4 Mg/2 Ml Inj IV 4 mg Q8H PRN Administration Nausea And Vomiting Oxycodone/Acetaminophen 1 tab 06/07/21 21:41 06/09/21 17:05 Oxycodone /Acetaminophen 5-325mg Tab PO 1 tab Q6H PRN Administration Pain, Moderate (4-6) Sodium Bicarbonate 650 mg 06/10/21 14:00 06/13/21 20:22 Sodium Bicarbonate 650 Mg Tab PO 650 mg TID LEONOR Administration Sodium Chloride 10 ml 06/07/21 22:00 06/13/21 22:46 Sodium Chloride 0.9% 10 Ml Flush Syringe IV 10 ml BID LEONOR Administration Sodium Chloride 10 ml 06/07/21 21:41 Sodium Chloride 0.9% 10 Ml Flush Syringe IV PRN PRN LINE FLUSH Nutrition/Malnutrition Assess - Dietary Evaluation Nutrition/Malnutrition Findings: Nutrition Notes Start: 06/08/21 10:56 Freq: Status: Active Protocol: Document 06/09/21 11:28 GB (Rec: 06/09/21 11:34 GB [email or web address]) Nutrition Notes Initial or Follow up Reassessment Current Diagnosis Acute Kidney Injury,Diabetes, Sepsis,Hypertension, Respiratory Failure Other Pertinent Diagnosis COVID-19 PUI, hypothyroid Current Diet consistent CHO/cardiac, pureed texture Labs/Tests BUN 68 Cr 4.7 BG 218 06/07: A1c 9.5 Pertinent Medications Zofran NS at 10 ml/hr Height 5 ft 11 in Weight 164.654 kg [place] Body Weight (kg) 70.45 BMI 50.6 Weight change and time frame Wt stable from previous adm on 09/17/2020 Weight Status Morbidly Obese Subjective/Other Information MD consult for malnutrition. RN screen for chewing difficutly. Per previous visit , pt does not want mech soft diet and has hx of not liking Ensure. Pt on bipap. Unable to speak with pt. Burn Absent Trauma Absent Minimum of two criteria No #1 Nutrition Diagnosis Predicted suboptimal energy intake Comments: PO intake of meals recorded currently for one day at 25%, independent with meals. Etiology ARF As Evidenced by Signs and Symptoms pt on bipap Diagnosis Progress(for reassessment Continues documentation) Is patient on ventilator? No Is Patient Ambulatory and/or Out of Bed No REE-([facility]-confined to bed) 2778.984 Kcal/Kg value to use for calculation 12 Approximate Energy Requirements Using 1976 kcal/Kg Calculation Used for Recommendations Kcal/kg Additional Notes Protein: (0.8-1g/kg AdjBW) 94- 117g/day Fluid: 1 ml/kcal Nutrition Intervention Change Diet Order: Continue Add Supplement/Snack (indicate name/kcal n/a - history of pt not liking /protein ) nutrition supplement beverages Goal #1 PO intake of meals to improve to 50% or greater TID daily during LOS Goal #2 Weight to maintain within +/-3 % current weight during LOS Follow-Up By: 06/14/21 Additional Comments Check for PO intake improvement for sign off. Nursing to record meal intake daily.
[2021-06-14] MEDS: INSULIN NPH/REGULAR 70/30 INJ SUB-Q SCH ×2 (09:07→17:58)
[2021-06-14] MEDS: FAMOTIDINE 20 MG/2 ML INJ IV SCH (09:10)
[2021-06-14] MEDS: SODIUM BICARBONATE 650 MG TAB PO SCH ×3 (09:10→22:12)
[2021-06-14] MEDS: dexAMETHasone 4 MG/ML VIAL IV SCH (09:10)
[2021-06-14] MEDS: INSULIN REGULAR, HUMAN 100 UNITS/1 ML SUB-Q SCH ×4 (09:15→23:45)
[2021-06-14] MEDS: APIXABAN 5 MG TAB PO SCH ×2 (09:15→22:12)
[2021-06-14] MEDS: carvediloL 3.125 MG TAB PO SCH ×2 (09:17→22:14)
[2021-06-14 10:39] LABS: Total Cells Counted 100
[2021-06-14 10:40] LABS: Band Neutrophils # (Manual) 0.3 K/mm3; Large Platelets Rare; Myelocytes # (Manual) 0.3 K/mm3; Platelet Clumps Few; Platelet Estimate Consistent w Auto; RBC Morphology Normal
--- NOTE | 2021-06-14 11:00 | Progress Note ---
Assessment and Plan COVID-19 breakthrough infection COVID-19 pneumonia Acute renal failure versus acute on chronic renal failure Acute hypoxic respiratory failure Insulin-dependent type 2 diabetes- uncontrolled Elevated troponin Hypertension-controlled Hypothyroidism Protein calorie malnutrition Hypernatremia Plan stable kidneyu function, non-oliguric Renal US was negative for hydronephrosis Hypernatremia-cont D5W, increase water flushes with TF as tolerated Replete potassium as needed Renally dose medications Avoid nephrotoxic agents Strict I&O's daily Obtain daily weights Subjective Date of service: 06/14/21 Principal diagnosis: TREMAINE Interval history: no overnight events reported Objective - Vital Signs Vital signs: Vital Signs - 12hr 06/13/21 06/14/21 06/14/21 23:15 02:17 05:08 Temperature 97.7 F 97.6 F Pulse Rate 107 H 107 H Respiratory 56 H 32 H Rate Blood Pressure 165/97 165/98 O2 Sat by Pulse 89 89 94 Oximetry - Lab 06/14/21 04:42 06/14/21 04:42 Most recent lab results ABG pH 7.318 pH Units (7.350-7.450) L 06/12/21 04:22 ABG pCO2 40.1 mm Hg 06/12/21 04:22 ABG pO2 51.5 mm Hg (80.0-90.0) L 06/12/21 04:22 ABG HCO3 20.1 mmol/L (20.0-26.0) 06/12/21 04:22 ABG O2 Saturation 86.9 % (95.0-99.0) L 06/12/21 04:22 Calcium 8.9 mg/dL (8.4-10.2) 06/14/21 04:42 Calcium 9.0 mg/dL (8.4-10.2) 06/14/21 04:42 Phosphorus 3.30 mg/dL (2.5-4.5) 06/14/21 04:42 Magnesium 2.40 mg/dL (1.7-2.3) H 06/14/21 04:42 Medications & Allergies - Medications Allergies/Adverse Reactions: Allergies latex Allergy (Verified 03/19/19 17:03) Unknown shellfish derived Allergy (Verified 03/19/19 17:03) Anaphylaxis strawberry Allergy (Verified 03/19/19 17:03) Anaphylaxis tomato Allergy (Verified 03/19/19 17:03) Anaphylaxis nuts Allergy (Uncoded 03/19/19 17:03) Anaphylaxis Home Medications: Home Medications Medication Instructions Recorded Confirmed Last Taken Type Albuterol Sulfate [Ventolin HFA] 2 puff IH Q4H PRN 01/29/14 06/11/21 02/01/15 History Levothyroxine (Nf) [Synthroid (Nf)] 275 mcg PO QAM 01/29/14 06/11/21 02/01/15 History Fluticasone/Salmeterol [Advair 1 each IH PRN PRN 01/26/15 06/11/21 02/02/15 10:00 History Diskus 250-50 mcg] Apixaban [Eliquis starter pack] 5 mg PO BID 09/13/19 06/11/21 Unknown History Insulin Aspart Prot/Insuln Asp 45 unit SUB-Q QAM 09/13/19 06/11/21 Unknown History [Novolog Mix 70-30 Flexpen] Insulin Glargine,Hum.rec.anlog 25 unit SQ HS 09/13/19 06/11/21 Unknown History [Basaglar Kwikpen U-100] Lovastatin [Altoprev] 20 mg PO DAILY 09/13/19 06/11/21 Unknown History Docusate Sodium [Colace CAP] 100 mg PO BID PRN #30 capsule 09/17/19 06/11/21 Unknown Rx Loratadine/Pseudoephedrine 1 each PO Q24HR #10 tablet 09/17/19 06/11/21 Unknown Rx [Claritin-D 24HR] Ondansetron [Zofran Odt] 4 mg PO Q8HR #20 tab.rapdis 09/17/19 06/11/21 Unknown Rx carvediloL [Coreg] 3.125 mg PO BID #60 tablet 09/17/19 06/11/21 Unknown Rx hydrALAZINE [Apresoline TAB] 25 mg PO Q8HR #90 tablet 09/17/19 06/11/21 Unknown Rx Active Medications: Generic Name Dose Route Start Last Admin Trade Name Freq PRN Reason Stop Dose Admin Acetaminophen 650 mg 06/07/21 21:41 Acetaminophen 325 Mg Tab PO Q4H PRN Pain MILD(1-3)/Fever >100.5/MARTÍNEZ Albuterol 2 puff 06/07/21 23:00 Albuterol 8.5 Gm Mdi Inhalation IH Q4HRT PRN Shortness Of Breath Alprazolam 0.125 mg 06/07/21 22:33 06/13/21 22:41 Alprazolam 0.25 Mg Tab PO 0.125 mg Q8H PRN Administration Anxiety Apixaban 5 mg 06/08/21 10:00 06/14/21 09:15 Apixaban 5 Mg Tab PO 5 mg BID LEONOR Administration Atorvastatin Calcium 10 mg 06/08/21 10:00 06/14/21 09:15 Atorvastatin 10 Mg Tab PO 10 mg DAILY LEONOR Administration Carvedilol 3.125 mg 06/07/21 22:00 06/14/21 09:17 Carvedilol 3.125 Mg Tab PO 3.125 mg BID LEONOR Administration Dexamethasone 8 mg 06/08/21 10:00 06/14/21 09:10 Dexamethasone 4 Mg/Ml Vial IV 06/16/21 10:01 8 mg Q24HR LEONOR Administration Dextrose 50 ml 06/08/21 12:04 Dextrose 50% In Water (25gm) 50 Ml Syringe IV Q30MIN PRN Hypoglycemia Protocol Docusate Sodium 100 mg 06/07/21 21:33 Docusate Sodium 100 Mg Cap PO BID PRN Constipation Famotidine 10 mg 06/14/21 22:00 Famotidine 10 Mg Tab PO BID LEONOR Guaifenesin 10 ml 06/09/21 00:15 06/11/21 06:12 Guaifenesin Dm 200/20 Mg Oral Liqd 10 Ml PO 10 ml Q4H PRN Administration Cough Hydralazine HCl 25 mg 06/07/21 22:00 06/14/21 06:25 Hydralazine 25 Mg Tab PO 25 mg Q8HR LEONOR Administration Hydromorphone HCl 0.5 mg 06/07/21 21:41 Hydromorphone 1 Mg/1 Ml Inj IV Q3H PRN Pain , Severe (7-10) Hydromorphone HCl 0.25 mg 06/07/21 22:33 Hydromorphone 1 Mg/1 Ml Inj IV Q4H PRN Pain, Moderate (4-6) Hydrophilic Ointment 1 applic 06/13/21 07:30 Lip Therapy Vaseline TP DIRECT PRN Dry Lips Dextrose 1,000 mls @ 125 mls/hr 06/14/21 10:00 D5w IV DIRECT LEONOR Insulin Human Isoph/Insulin Regular 30 unit 06/11/21 08:00 06/14/21 09:07 Insulin Nph/Regular 70/30 Inj SUB-Q 30 unit BIDDIAB LEONOR Administration Insulin Human Regular 0 units 06/08/21 12:15 06/14/21 09:15 Insulin Regular, Human 100 Units/1 Ml SUB-Q 3 units ACHS LEONOR Administration Protocol Levothyroxine Sodium 75 mcg 06/08/21 06:00 06/14/21 06:25 Levothyroxine 75 Mcg Tab PO 75 mcg QAM@0600 LEONOR Administration Levothyroxine Sodium 200 mcg 06/08/21 06:00 06/14/21 06:24 Levothyroxine 100 Mcg Tab PO 200 mcg DAILY@0600 [facility] Administration Loratadine/Pseudoephedrine Sulfate 1 each 06/08/21 10:00 06/13/21 11:33 Loratadine/Pseudoephedrine 10-240 Mg Tab 24hr PO Not Given Q24HR [facility] Ondansetron HCl 4 mg 06/07/21 22:00 06/14/21 06:25 Ondansetron 4 Mg Odt Tab PO 4 mg Q8HR [facility] Administration Ondansetron HCl 4 mg 06/07/21 21:41 06/10/21 06:24 Ondansetron 4 Mg/2 Ml Inj IV 4 mg Q8H PRN Administration Nausea And Vomiting Oxycodone/Acetaminophen 1 tab 06/07/21 21:41 06/09/21 17:05 Oxycodone /Acetaminophen 5-325mg Tab PO 1 tab Q6H PRN Administration Pain, Moderate (4-6) Sodium Bicarbonate 650 mg 06/10/21 14:00 06/14/21 09:10 Sodium Bicarbonate 650 Mg Tab PO 650 mg TID LEONOR Administration Sodium Chloride 10 ml 06/07/21 22:00 06/14/21 09:21 Sodium Chloride 0.9% 10 Ml Flush Syringe IV 10 ml BID LEONOR Administration Sodium Chloride 10 ml 06/07/21 21:41 Sodium Chloride 0.9% 10 Ml Flush Syringe IV PRN PRN LINE FLUSH
--- NOTE | 2021-06-14 11:59 | Progress Note ---
Assessment and Plan This is 61-year-old female, Morbidly Obese admitted with shortness of breath that has been ongoing for several days. She had been around family that had been sick with coronavirus symptoms. Patient said she has been vaccinated for COVID-19. She denies vomiting and diarrhea. Reported generalized weakness and difficulty breathing. She has had subjective fevers and chills associate with a cough. Cough has been producing yellowish phlegm. Patient has history of diabetes, Hypertension,Hyperlipidemia and hypothyroidism and CKD. Denies smoking, alcohol or drug abuse. 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 Patient and has no children. Patient sleeping and still on vapotherm, FIO2 100% and O2 saturation running 93%. BIPAP stand by in the room. Patient awake and anxious. Patient still on vapotherm,and O2 requirments came down to 60% and O2 saturation running 95%. BIPAP stand by in the room. Patients ABGs 06/12/21 reported PH 7.31, [id number], PO2 52, HCO3 20, O2 saturation 87% on 100% FIO2 Patient afebrile and has leukocytosis. Patients blood pressure 157/84. Pulse 93. Chest xray that was done 06/07/21 reported Multifocal pneumonia. Patients Repeat Holden virus PCR reported Positive. Patient is on Apixaban, Dexamethasone and Famotidine and albuterol inhaler. I spent critical care time of 35 minutes, reviewing the chart, Examine the patient, review labs and chest xray, talking to respiratory therapy and nursing staff and work out plan of treatment inthis critically ill acute hypoxic respiratory failure patient. - Patient Problems (1) Acute respiratory failure with hypoxia Current Visit: Yes Status: Acute Plan to address problem: Patient is on Vapotherm, FIO2 60% Patient is on Dexamethasone. Patient is on Apixaban. Continue famotidine. (2) Coronavirus infection Current Visit: Yes Status: Acute Plan to address problem: Patient is on dexamethasone Apixaban Management as per infectious diseases. (3) Pneumonia due to COVID-19 virus Current Visit: Yes Status: Acute Plan to address problem: Patient was on Ceftriaxone. (4) Acute kidney injury superimposed on CKD Current Visit: No Status: Acute Plan to address problem: Management as per nephrology. (5) Hypertension Current Visit: No Status: Acute Plan to address problem: Management as per primary care. (6) Diabetes mellitus type 2, insulin dependent Current Visit: No Status: Chronic Plan to address problem: Management as per primary care. (7) Hypothyroidism Current Visit: No Status: Chronic Plan to address problem: Patient is on Levothyroxine. Management as per primary care. (8) Morbid obesity Current Visit: No Status: Chronic Plan to address problem: Recommend to loose weight. Diet and exercise. Recommend sleep study as out patient once she recovered from present problem. Subjective Date of service: 06/14/21 Principal diagnosis: TREMAINE Interval history: This is 61-year-old female, Morbidly Obese admitted with shortness of breath th at has been ongoing for several days. She had been around family that had been sick with coronavirus symptoms. Patient said she has been vaccinated for COVID- 19. She denies vomiting and diarrhea. Reported generalized weakness and difficulty breathing. She has had subjective fevers and chills associate with a cough. Cough has been producing yellowish phlegm. Patient has history of diabetes, Hypertension,Hyperlipidemia and hypothyroidism and CKD. Denies smoking, alcohol or drug abuse. 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 Patient awake and anxious. Patient still on vapotherm,and O2 requirments came down to 60% and O2 saturation running 95%. BIPAP stand by in the room. Patients ABGs 06/12/21 reported PH 7.31, [id number], PO2 52, HCO3 20, O2 saturation 87% on 100% FIO2 Patient afebrile and has leukocytosis. Patients blood pressure 157/84. Pulse 93. Chest xray that was done 06/07/21 reported Multifocal pneumonia. Patients Repeat Holden virus PCR reported Positive. Patient is on Apixaban, Dexamethasone and Famotidine and albuterol inhaler. Objective Vital Signs - 12hr 06/14/21 06/14/21 02:17 05:08 Temperature 97.6 F Pulse Rate 107 H Respiratory 32 H Rate Blood Pressure 165/98 O2 Sat by Pulse 89 94 Oximetry Constitutional: alert, appears uncomfortable, other (Morbidly Obese, Mild shortness of breath at rest. Weak. On Vapotherm 60%.) Eyes: non-icteric ENT: oropharynx moist Neck: supple, no lymphadenopathy Effort: mildly labored Ascultation: Bilateral: diminished breath sounds, rhonchi Cardiovascular: regular rate and rhythm Gastrointestinal: normoactive bowel sounds, soft, non-tender Integumentary: normal Extremities: no cyanosis, no edema Neurologic: normal mental status, non-focal exam, pupils equal and round, CN II- XII normal Psychiatric: mood appropriate, affect normal CBC and BMP: 06/14/21 04:42 06/14/21 04:42 ABG, PT/INR, D-dimer: ABG ABG pH 7.318 pH Units (7.350-7.450) L 06/12/21 04:22 POC ABG pCO2 34.2 mmHg (32.0-48.0) 06/09/21 12:19 ABG pCO2 40.1 mm Hg 06/12/21 04:22 POC ABG pO2 71.4 mmHg (83-108) L 06/09/21 12:19 ABG pO2 51.5 mm Hg (80.0-90.0) L 06/12/21 04:22 POC ABG HCO3 20.5 06/09/21 12:19 ABG O2 Saturation 86.9 % (95.0-99.0) L 06/12/21 04:22 PT/INR, D-dimer D-Dimer > 53074 ng/mlDDU (0-234) H 06/11/21 10:57 Abnormal lab findings: Abnormal Labs 06/07/21 06/07/21 06/07/21 19:11 19:11 19:11 WBC 11.5 H RBC Hgb Hct RDW Lymph % (Auto) 6.5 L Lymph # (Auto) 0.8 L Seg Neutrophils % 89.9 H Seg Neuts % (Manual) Lymphocytes % (Manual) Nucleated RBC % Seg Neutrophils # 10.4 H Seg Neutrophils # Man Lymphocytes # (Manual) D-Dimer 5334.05 H ABG pH POC ABG pO2 ABG pO2 ABG O2 Saturation ABG Base Excess ABG Oxyhemoglobin ABG Chloride ABG Glucose Oxyhemoglobin Carboxyhemoglobin Sodium Potassium Chloride Carbon Dioxide BUN 67 H Creatinine 4.8 H Glucose 244 H POC Glucose Hemoglobin A1c Calcium Magnesium Ferritin Lactate Dehydrogenase 796 H Troponin T 0.043 H C-Reactive Protein 19.60 H Total Protein 8.4 H Albumin 3.1 L Triglycerides 209 H HDL Cholesterol 35 L Arterial Blood Glucose Coronavirus (PCR) 06/07/21 06/07/21 06/08/21 19:11 19:11 03:04 WBC RBC Hgb Hct RDW Lymph % (Auto) Lymph # (Auto) Seg Neutrophils % Seg Neuts % (Manual) Lymphocytes % (Manual) Nucleated RBC % Seg Neutrophils # Seg Neutrophils # Man Lymphocytes # (Manual) D-Dimer ABG pH POC ABG pO2 ABG pO2 ABG O2 Saturation ABG Base Excess ABG Oxyhemoglobin ABG Chloride ABG Glucose Oxyhemoglobin Carboxyhemoglobin Sodium Potassium Chloride Carbon Dioxide BUN Creatinine Glucose POC Glucose Hemoglobin A1c 9.5 H Calcium Magnesium Ferritin 1230.0 H Lactate Dehydrogenase Troponin T 0.031 H D C-Reactive Protein Total Protein Albumin Triglycerides HDL Cholesterol Arterial Blood Glucose Coronavirus (PCR) 06/08/21 06/08/21 06/08/21 03:44 03:44 08:21 WBC 12.9 H RBC Hgb Hct RDW Lymph % (Auto) Lymph # (Auto) Seg Neutrophils % Seg Neuts % (Manual) 95.0 H Lymphocytes % (Manual) 3.0 L Nucleated RBC % Seg Neutrophils # Seg Neutrophils # Man 12.3 H Lymphocytes # (Manual) 0.4 L D-Dimer ABG pH POC ABG pO2 ABG pO2 ABG O2 Saturation ABG Base Excess ABG Oxyhemoglobin ABG Chloride ABG Glucose Oxyhemoglobin Carboxyhemoglobin Sodium Potassium Chloride Carbon Dioxide 20 L D BUN 68 H Creatinine 4.7 H Glucose 218 H POC Glucose 273 H Hemoglobin A1c Calcium Magnesium Ferritin Lactate Dehydrogenase Troponin T C-Reactive Protein Total Protein Albumin 3.4 L Triglycerides HDL Cholesterol Arterial Blood Glucose Coronavirus (PCR) 06/08/21 06/08/21 06/08/21 08:30 11:00 17:29 WBC RBC Hgb Hct RDW Lymph % (Auto) Lymph # (Auto) Seg Neutrophils % Seg Neuts % (Manual) Lymphocytes % (Manual) Nucleated RBC % Seg Neutrophils # Seg Neutrophils # Man Lymphocytes # (Manual) D-Dimer ABG pH POC ABG pO2 ABG pO2 ABG O2 Saturation ABG Base Excess ABG Oxyhemoglobin ABG Chloride ABG Glucose Oxyhemoglobin Carboxyhemoglobin Sodium Potassium Chloride Carbon Dioxide BUN Creatinine Glucose POC Glucose 239 H 220 H Hemoglobin A1c Calcium Magnesium Ferritin Lactate Dehydrogenase Troponin T C-Reactive Protein Total Protein Albumin Triglycerides HDL Cholesterol Arterial Blood Glucose Coronavirus (PCR) Positive A 06/08/21 06/09/21 06/09/21 21:09 08:07 08:42 WBC 14.7 H RBC 5.28 H Hgb 14.9 H Hct 45.0 H D RDW Lymph % (Auto) 4.9 L Lymph # (Auto) 0.7 L Seg Neutrophils % 90.0 H Seg Neuts % (Manual) Lymphocytes % (Manual) Nucleated RBC % Seg Neutrophils # 13.2 H Seg Neutrophils # Man Lymphocytes # (Manual) D-Dimer ABG pH POC ABG pO2 ABG pO2 ABG O2 Saturation ABG Base Excess ABG Oxyhemoglobin ABG Chloride ABG Glucose Oxyhemoglobin Carboxyhemoglobin Sodium Potassium Chloride Carbon Dioxide BUN Creatinine Glucose POC Glucose 242 H 230 H Hemoglobin A1c Calcium Magnesium Ferritin Lactate Dehydrogenase Troponin T C-Reactive Protein Total Protein Albumin Triglycerides HDL Cholesterol Arterial Blood Glucose Coronavirus (PCR) 06/09/21 06/09/21 06/09/21 08:42 12:05 12:19 WBC RBC Hgb Hct RDW Lymph % (Auto) Lymph # (Auto) Seg Neutrophils % Seg Neuts % (Manual) Lymphocytes % (Manual) Nucleated RBC % Seg Neutrophils # Seg Neutrophils # Man Lymphocytes # (Manual) D-Dimer ABG pH POC ABG pO2 71.4 L ABG pO2 ABG O2 Saturation ABG Base Excess ABG Oxyhemoglobin 92.9 L ABG Chloride 109.0 H ABG Glucose 287 H Oxyhemoglobin Carboxyhemoglobin 0.4 L Sodium Potassium Chloride Carbon Dioxide 17 L BUN 74 H Creatinine 3.7 H Glucose 259 H POC Glucose 274 H Hemoglobin A1c Calcium 8.3 L Magnesium Ferritin Lactate Dehydrogenase Troponin T C-Reactive Protein Total Protein Albumin Triglycerides HDL Cholesterol Arterial Blood Glucose 287 H Coronavirus (PCR) 06/09/21 06/09/21 06/10/21 16:59 21:06 08:25 WBC RBC Hgb Hct RDW Lymph % (Auto) Lymph # (Auto) Seg Neutrophils % Seg Neuts % (Manual) Lymphocytes % (Manual) Nucleated RBC % Seg Neutrophils # Seg Neutrophils # Man Lymphocytes # (Manual) D-Dimer ABG pH POC ABG pO2 ABG pO2 ABG O2 Saturation ABG Base Excess ABG Oxyhemoglobin ABG Chloride ABG Glucose Oxyhemoglobin Carboxyhemoglobin Sodium Potassium Chloride Carbon Dioxide BUN Creatinine Glucose POC Glucose 268 H 263 H 280 H Hemoglobin A1c Calcium Magnesium Ferritin Lactate Dehydrogenase Troponin T C-Reactive Protein Total Protein Albumin Triglycerides HDL Cholesterol Arterial Blood Glucose Coronavirus (PCR) 06/10/21 06/10/21 06/10/21 12:07 15:38 21:04 WBC RBC Hgb Hct RDW Lymph % (Auto) Lymph # (Auto) Seg Neutrophils % Seg Neuts % (Manual) Lymphocytes % (Manual) Nucleated RBC % Seg Neutrophils # Seg Neutrophils # Man Lymphocytes # (Manual) D-Dimer ABG pH POC ABG pO2 ABG pO2 ABG O2 Saturation ABG Base Excess ABG Oxyhemoglobin ABG Chloride ABG Glucose Oxyhemoglobin Carboxyhemoglobin Sodium Potassium Chloride Carbon Dioxide BUN Creatinine Glucose POC Glucose 247 H 269 H 195 H Hemoglobin A1c Calcium Magnesium Ferritin Lactate Dehydrogenase Troponin T C-Reactive Protein Total Protein Albumin Triglycerides HDL Cholesterol Arterial Blood Glucose Coronavirus (PCR) 06/10/21 06/10/21 06/10/21 23:14 23:14 23:14 WBC RBC Hgb Hct RDW 15.3 H Lymph % (Auto) Lymph # (Auto) Seg Neutrophils % Seg Neuts % (Manual) 93.0 H Lymphocytes % (Manual) 2.0 L Nucleated RBC % 3.0 H Seg Neutrophils # Seg Neutrophils # Man 10.2 H Lymphocytes # (Manual) 0.2 L D-Dimer ABG pH POC ABG pO2 ABG pO2 ABG O2 Saturation ABG Base Excess ABG Oxyhemoglobin ABG Chloride ABG Glucose Oxyhemoglobin Carboxyhemoglobin Sodium 148 H D Potassium Chloride 111.7 H Carbon Dioxide 20 L BUN 70 H Creatinine 3.2 H Glucose 186 H POC Glucose Hemoglobin A1c Calcium Magnesium 2.50 H Ferritin Lactate Dehydrogenase 606 H Troponin T C-Reactive Protein Total Protein Albumin Triglycerides HDL Cholesterol Arterial Blood Glucose Coronavirus (PCR) 06/10/21 06/10/21 06/11/21 23:14 23:14 07:34 WBC RBC Hgb Hct RDW Lymph % (Auto) Lymph # (Auto) Seg Neutrophils % Seg Neuts % (Manual) Lymphocytes % (Manual) Nucleated RBC % Seg Neutrophils # Seg Neutrophils # Man Lymphocytes # (Manual) D-Dimer > 37545 H ABG pH POC ABG pO2 ABG pO2 ABG O2 Saturation ABG Base Excess ABG Oxyhemoglobin ABG Chloride ABG Glucose Oxyhemoglobin Carboxyhemoglobin Sodium Potassium Chloride Carbon Dioxide BUN Creatinine Glucose POC Glucose 169 H Hemoglobin A1c Calcium Magnesium Ferritin 1319.0 H Lactate Dehydrogenase Troponin T C-Reactive Protein Total Protein Albumin Triglycerides HDL Cholesterol Arterial Blood Glucose Coronavirus (PCR) 06/11/21 06/11/21 06/11/21 10:57 10:57 10:58 WBC 11.3 H RBC Hgb Hct RDW 15.3 H Lymph % (Auto) Lymph # (Auto) Seg Neutrophils % Seg Neuts % (Manual) 88.0 H Lymphocytes % (Manual) 6.0 L Nucleated RBC % Seg Neutrophils # Seg Neutrophils # Man 9.9 H Lymphocytes # (Manual) 0.7 L D-Dimer > 12735 H ABG pH POC ABG pO2 ABG pO2 ABG O2 Saturation ABG Base Excess ABG Oxyhemoglobin ABG Chloride ABG Glucose Oxyhemoglobin Carboxyhemoglobin Sodium Potassium Chloride Carbon Dioxide BUN Creatinine Glucose POC Glucose Hemoglobin A1c Calcium Magnesium Ferritin 1300.0 H Lactate Dehydrogenase Troponin T C-Reactive Protein Total Protein Albumin Triglycerides HDL Cholesterol Arterial Blood Glucose Coronavirus (PCR) 06/11/21 06/11/21 06/11/21 10:58 11:49 15:49 WBC RBC Hgb Hct RDW Lymph % (Auto) Lymph # (Auto) Seg Neutrophils % Seg Neuts % (Manual) Lymphocytes % (Manual) Nucleated RBC % Seg Neutrophils # Seg Neutrophils # Man Lymphocytes # (Manual) D-Dimer ABG pH POC ABG pO2 ABG pO2 ABG O2 Saturation ABG Base Excess ABG Oxyhemoglobin ABG Chloride ABG Glucose Oxyhemoglobin Carboxyhemoglobin Sodium 150 H Potassium 3.4 L Chloride 114.8 H Carbon Dioxide 21 L BUN 65 H Creatinine 2.9 H Glucose 180 H POC Glucose 191 H 185 H Hemoglobin A1c Calcium Magnesium 2.50 H Ferritin Lactate Dehydrogenase Troponin T C-Reactive Protein 1.90 H Total Protein Albumin Triglycerides HDL Cholesterol Arterial Blood Glucose Coronavirus (PCR) 06/11/21 06/12/21 06/12/21 21:16 04:22 07:41 WBC RBC Hgb Hct RDW Lymph % (Auto) Lymph # (Auto) Seg Neutrophils % Seg Neuts % (Manual) Lymphocytes % (Manual) Nucleated RBC % Seg Neutrophils # Seg Neutrophils # Man Lymphocytes # (Manual) D-Dimer ABG pH 7.318 L POC ABG pO2 ABG pO2 51.5 L ABG O2 Saturation 86.9 L ABG Base Excess -5.6 L ABG Oxyhemoglobin ABG Chloride ABG Glucose Oxyhemoglobin 85.5 L Carboxyhemoglobin Sodium Potassium Chloride Carbon Dioxide BUN Creatinine Glucose POC Glucose 200 H 165 H Hemoglobin A1c Calcium Magnesium Ferritin Lactate Dehydrogenase Troponin T C-Reactive Protein Total Protein Albumin Triglycerides HDL Cholesterol Arterial Blood Glucose Coronavirus (PCR) 06/12/21 06/12/21 06/12/21 08:31 08:31 08:31 WBC 12.4 H RBC Hgb Hct RDW 15.3 H Lymph % (Auto) 8.5 L Lymph # (Auto) 1.1 L Seg Neutrophils % 88.1 H Seg Neuts % (Manual) Lymphocytes % (Manual) Nucleated RBC % Seg Neutrophils # 10.9 H Seg Neutrophils # Man Lymphocytes # (Manual) D-Dimer ABG pH POC ABG pO2 ABG pO2 ABG O2 Saturation ABG Base Excess ABG Oxyhemoglobin ABG Chloride ABG Glucose Oxyhemoglobin Carboxyhemoglobin Sodium 151 H Potassium Chloride 117.3 H Carbon Dioxide 21 L BUN 61 H Creatinine 2.5 H Glucose 165 H POC Glucose Hemoglobin A1c Calcium 8.3 L Magnesium 2.50 H Ferritin Lactate Dehydrogenase Troponin T C-Reactive Protein Total Protein Albumin Triglycerides HDL Cholesterol Arterial Blood Glucose Coronavirus (PCR) 06/12/21 06/12/21 06/12/21 10:32 15:47 21:50 WBC RBC Hgb Hct RDW Lymph % (Auto) Lymph # (Auto) Seg Neutrophils % Seg Neuts % (Manual) Lymphocytes % (Manual) Nucleated RBC % Seg Neutrophils # Seg Neutrophils # Man Lymphocytes # (Manual) D-Dimer ABG pH POC ABG pO2 ABG pO2 ABG O2 Saturation ABG Base Excess ABG Oxyhemoglobin ABG Chloride ABG Glucose Oxyhemoglobin Carboxyhemoglobin Sodium Potassium Chloride Carbon Dioxide BUN Creatinine Glucose POC Glucose 156 H 176 H 165 H Hemoglobin A1c Calcium Magnesium Ferritin Lactate Dehydrogenase Troponin T C-Reactive Protein Total Protein Albumin Triglycerides HDL Cholesterol Arterial Blood Glucose Coronavirus (PCR) 06/13/21 06/13/21 06/13/21 07:42 07:42 08:10 WBC 14.1 H RBC Hgb Hct RDW 15.3 H Lymph % (Auto) Lymph # (Auto) Seg Neutrophils % Seg Neuts % (Manual) 87.0 H Lymphocytes % (Manual) 7.0 L Nucleated RBC % 3.0 H Seg Neutrophils # Seg Neutrophils # Man 12.3 H Lymphocytes # (Manual) 1.0 L D-Dimer ABG pH POC ABG pO2 ABG pO2 ABG O2 Saturation ABG Base Excess ABG Oxyhemoglobin ABG Chloride ABG Glucose Oxyhemoglobin Carboxyhemoglobin Sodium 151 H Potassium 3.5 L Chloride 116.0 H Carbon Dioxide BUN 61 H Creatinine 2.3 H Glucose 135 H POC Glucose 118 H Hemoglobin A1c Calcium Magnesium 2.50 H Ferritin Lactate Dehydrogenase Troponin T C-Reactive Protein Total Protein Albumin Triglycerides HDL Cholesterol Arterial Blood Glucose Coronavirus (PCR) 06/13/21 06/13/21 06/13/21 11:10 18:15 21:54 WBC RBC Hgb Hct RDW Lymph % (Auto) Lymph # (Auto) Seg Neutrophils % Seg Neuts % (Manual) Lymphocytes % (Manual) Nucleated RBC % Seg Neutrophils # Seg Neutrophils # Man Lymphocytes # (Manual) D-Dimer ABG pH POC ABG pO2 ABG pO2 ABG O2 Saturation ABG Base Excess ABG Oxyhemoglobin ABG Chloride ABG Glucose Oxyhemoglobin Carboxyhemoglobin Sodium Potassium Chloride Carbon Dioxide BUN Creatinine Glucose POC Glucose 139 H 179 H 193 H Hemoglobin A1c Calcium Magnesium Ferritin Lactate Dehydrogenase Troponin T C-Reactive Protein Total Protein Albumin Triglycerides HDL Cholesterol Arterial Blood Glucose Coronavirus (PCR) 06/13/21 06/14/21 06/14/21 23:27 04:42 04:42 WBC 12.8 H RBC Hgb Hct RDW 15.3 H Lymph % (Auto) Lymph # (Auto) Seg Neutrophils % Seg Neuts % (Manual) 92.0 H Lymphocytes % (Manual) 1.0 L Nucleated RBC % 2.0 H Seg Neutrophils # Seg Neutrophils # Man 11.8 H Lymphocytes # (Manual) 0.1 L D-Dimer ABG pH POC ABG pO2 ABG pO2 ABG O2 Saturation ABG Base Excess ABG Oxyhemoglobin ABG Chloride ABG Glucose Oxyhemoglobin Carboxyhemoglobin Sodium 152 H 152 H Potassium Chloride 116.3 H 115.3 H Carbon Dioxide 21 L BUN 67 H 68 H Creatinine 2.5 H 2.5 H Glucose 212 H 188 H POC Glucose Hemoglobin A1c Calcium Magnesium Ferritin Lactate Dehydrogenase Troponin T C-Reactive Protein Total Protein Albumin Triglycerides HDL Cholesterol Arterial Blood Glucose Coronavirus (PCR) 06/14/21 06/14/21 06/14/21 04:42 07:33 10:57 WBC RBC Hgb Hct RDW Lymph % (Auto) Lymph # (Auto) Seg Neutrophils % Seg Neuts % (Manual) Lymphocytes % (Manual) Nucleated RBC % Seg Neutrophils # Seg Neutrophils # Man Lymphocytes # (Manual) D-Dimer ABG pH POC ABG pO2 ABG pO2 ABG O2 Saturation ABG Base Excess ABG Oxyhemoglobin ABG Chloride ABG Glucose Oxyhemoglobin Carboxyhemoglobin Sodium Potassium Chloride Carbon Dioxide BUN Creatinine Glucose POC Glucose 173 H 195 H Hemoglobin A1c Calcium Magnesium 2.40 H Ferritin Lactate Dehydrogenase Troponin T C-Reactive Protein Total Protein Albumin Triglycerides HDL Cholesterol Arterial Blood Glucose Coronavirus (PCR)
[2021-06-14] MEDS: LORATADINE/PSEUDOEPHEDRINE 10-240 MG TAB 24HR PO SCH (12:57)
[2021-06-14] MEDS: DEXTROSE 5% IN WATER 1,000 ML IV SCH ×2 (13:39→22:22)
--- NOTE | 2021-06-14 14:09 | Progress Note ---
Assessment and Plan Cultures: SARS CoV2 PCR positive Assessment: 61-year-old female with history of diabetes mellitus, hypertension, hyperlipidemia, hypothyroidism, vaccinated for COVID-19 with Shot[employer] 2020, admitted on 06/07/2021 secondary to a week history of malaise, chills, fever cough, shortness of breath: #Severe sepsis : likely due to bilateral pneumonia. #Severe breakthrough COVID pneumonia: CXR with bilateral multifocal pneumonia. Inflammatory markers elevated. No indication for remdesivir due to renal failure. Received Actemra on 06/09/2021, on steroids. #Acute hypoxemic respiratory failure: Requiring BiPAP/HFNC. #TREMAINE: from sepsis/COVID #Diabetes mellitus: Uncontrolled. Glucose 244. A1c 9.5. #Morbid obesity Recommendations: -Status post Actemra 06/09/2021 -Continue dexamethasone IV/PO daily for 10 days -Continue anticoagulation per System Protocol, very high d-dimer, on apixaban -completed abx -poor prognosis Hollie Oviedo MD, FACP [facility] O: [phone] F: [phone] Subjective Date of service: 06/14/21 Principal diagnosis: TREMAINE Interval history: Afebrile. Agitated at times. Hypoxic requiring high flow nasal cannula. Objective - Exam Narrative Exam: Physical Exam (reviewed in chart to minimize risk of transmission) Constitutional: deferred Head, Ears, Nose: deferred Eyes: deferred Neck: deferred Oral: deferred Cardiovascular: deferred Respiratory: deferred GI: deferred Musculoskeletal: deferred Skin: deferred Hem/Lymphatic: deferred Psych: deferred Neurological: deferred - Constitutional Vitals: Vital Signs Temp Pulse Resp BP Pulse Ox 97.4 F L 93 H 21 157/84 88 06/14/21 11:00 06/14/21 11:00 06/14/21 11:00 06/14/21 11:00 06/14/21 11:00 Temperature -Last 24 Hours Temperature 97.4 F Temperature 97.6 F Temperature 97.7 F Temperature 97.5 F - Labs CBC & Chem 7: 06/14/21 04:42 06/14/21 04:42 Labs: Abnormal lab results 06/13/21 06/13/21 06/13/21 Range/Units 07:42 18:15 21:54 WBC (4.5-11.0) K/mm3 RDW (13.2-15.2) % Seg Neuts % (Manual) 87.0 H (40.0-70.0) % Lymphocytes % (Manual) 7.0 L (13.4-35.0) % Nucleated RBC % 3.0 H (0.0-0.9) % Seg Neutrophils # Man 12.3 H (1.8-7.7) K/mm3 Lymphocytes # (Manual) 1.0 L (1.2-5.4) K/mm3 Sodium (137-145) mmol/L Chloride (98-107) mmol/L Carbon Dioxide (22-30) mmol/L BUN (7-17) mg/dL Creatinine (0.6-1.2) mg/dL Glucose (65-100) mg/dL POC Glucose 179 H 193 H (70-105) mg/dL Magnesium (1.7-2.3) mg/dL 06/13/21 06/14/21 06/14/21 Range/Units 23:27 04:42 04:42 WBC 12.8 H (4.5-11.0) K/mm3 RDW 15.3 H (13.2-15.2) % Seg Neuts % (Manual) 92.0 H (40.0-70.0) % Lymphocytes % (Manual) 1.0 L (13.4-35.0) % Nucleated RBC % 2.0 H (0.0-0.9) % Seg Neutrophils # Man 11.8 H (1.8-7.7) K/mm3 Lymphocytes # (Manual) 0.1 L (1.2-5.4) K/mm3 Sodium 152 H 152 H (137-145) mmol/L Chloride 116.3 H 115.3 H (98-107) mmol/L Carbon Dioxide 21 L (22-30) mmol/L BUN 67 H 68 H (7-17) mg/dL Creatinine 2.5 H 2.5 H (0.6-1.2) mg/dL Glucose 212 H 188 H (65-100) mg/dL POC Glucose (70-105) mg/dL Magnesium (1.7-2.3) mg/dL 09/28/21 09/28/21 09/28/21 Range/Units 04:42 07:33 10:57 WBC (4.5-11.0) K/mm3 RDW (13.2-15.2) % Seg Neuts % (Manual) (40.0-70.0) % Lymphocytes % (Manual) (13.4-35.0) % Nucleated RBC % (0.0-0.9) % Seg Neutrophils # Man (1.8-7.7) K/mm3 Lymphocytes # (Manual) (1.2-5.4) K/mm3 Sodium (137-145) mmol/L Chloride (98-107) mmol/L Carbon Dioxide (22-30) mmol/L BUN (7-17) mg/dL Creatinine (0.6-1.2) mg/dL Glucose (65-100) mg/dL POC Glucose 173 H 195 H (70-105) mg/dL Magnesium 2.40 H (1.7-2.3) mg/dL
[2021-06-14] MEDS: FAMOTIDINE 10 MG TAB PO SCH (22:12)
[2021-06-14] MEDS: ALPRAZolam 0.25 MG TAB PO PRN (22:15)
[2021-06-15] MEDS: LEVOTHYROXINE 100 MCG TAB PO SCH (05:29)
[2021-06-15] MEDS: LEVOTHYROXINE 75 MCG TAB PO SCH (05:29)
[2021-06-15] MEDS: ONDANSETRON 4 MG ODT TAB PO SCH ×2 (05:29→13:16)
[2021-06-15] MEDS: hydrALAZINE 25 MG TAB PO SCH ×2 (05:30→13:16)
[2021-06-15] MEDS: ALPRAZolam 0.5 MG TAB PO PRN (05:33)
--- NOTE | 2021-06-15 07:33 | Progress Note ---
Assessment and Plan Assessment and plan: #Severe COVID-19 breakthrough infection #COVID-19 pneumonia #Severe ARDS -patient vaccinated -continue isolation precautions -inflammatory markers q3d (D-dimer greater than 10,000 today) -currently on high flow 40 L / 60% FiO2 -continue steroids, vitamin C, zinc and vitamin D #Acute hypoxic respiratory failure -continue high flow, wean as tolerated -Pulmonary following, recs appreciated #Acute encephalopathy -Patient with increasing agitation over the last few days -Waxing and waning alertness -Delirium precautions -will start seroquel nightly -will consider CTA versus neurology consult if progresses #Hypernatremia -sodium 153 -likely secondary to poor p.o. intake -D5W not given due to lack of IV access -continue 400 cc every 4 hour free water flushes by mouth #Acute versus chronic renal failure -unknown baseline, SCr 2.1 today -avoid nephrotoxins -Nephrology managing #Insulin-dependent type 2 diabetes -Humulin increased to 32 units twice daily plus sliding scale -goal glucose 140-180 #Elevated troponin -resolved, likely type II #Hypertension -Not at goal -Beta-angel increased, continue hydralazine at current dose #Hypothyroidism -continue home levothyroxine #Protein calorie malnutrition -Nutrition consult #History of DVT -continue Eliquis #Discharge planning -pending improved respiratory status -Physical therapy consult to evaluate and treat Disposition Plan: Medical management Total Time Spent with Patient (Minutes): 30 minutes History Interval history: No acute events overnight. Patient denies any pain or difficulty breathing. Is asking to get out of bed and for food. Hospitalist Physical - Physical exam Narrative exam: GENERAL: Obese. Lying in bed. HEENT: High flow at 40 L/min. CHEST/LUNGS: Coarse breath sounds bilaterally. HEART/CARDIOVASCULAR: Tachycardic. No murmur, rubs or gallops appreciated. ABDOMEN: +BS. NT/ND. EXTREMITIES: No cyanosis, clubbing or edema. - Constitutional Vitals: Temp Pulse Resp BP Pulse Ox 97.7 F 112 H 18 156/87 90 06/15/21 05:00 06/15/21 05:00 06/15/21 05:00 06/15/21 05:00 06/15/21 05:00 General appearance: Present: no acute distress HEART Score - HEART Score EKG: Non-specific Age: 45-65 Risk factors: 1-2 risk factors Troponin: Troponin T 0.021 ng/mL (0.00-0.029) 06/08/21 13:49 - Critical Actions Critical Actions: 0-3 pts:0.9-1.7%risk of adverse cardiac event.Candidate for discharge Results - Labs CBC & Chem 7: 06/15/21 07:38 06/15/21 07:38 Labs: Laboratory Last Values WBC 12.8 K/mm3 (4.5-11.0) H 06/14/21 04:42 RBC 4.60 M/mm3 (3.65-5.03) 06/14/21 04:42 Hgb 13.0 gm/dl (10.1-14.3) 06/14/21 04:42 Hct 40.3 % (30.3-42.9) 06/14/21 04:42 MCV 88 fl (79-97) 06/14/21 04:42 MCH 28 pg (28-32) 06/14/21 04:42 MCHC 32 % (30-34) 06/14/21 04:42 RDW 15.3 % (13.2-15.2) H 06/14/21 04:42 Plt Count 153 K/mm3 (140-440) 06/14/21 04:42 Lymph % (Auto) 8.5 % (13.4-35.0) L 06/12/21 08:31 [place] % (Auto) 2.5 % (0.0-7.3) 06/12/21 08:31 Eos % (Auto) 0.8 % (0.0-4.3) 06/12/21 08:31 Baso % (Auto) 0.1 % (0.0-1.8) 06/12/21 08:31 Lymph # (Auto) 1.1 K/mm3 (1.2-5.4) L 06/12/21 08:31 [place] # (Auto) 0.3 K/mm3 (0.0-0.8) 06/12/21 08:31 Eos # (Auto) 0.1 K/mm3 (0.0-0.4) 06/12/21 08:31 Baso # (Auto) 0.0 K/mm3 (0.0-0.1) 06/12/21 08:31 Add Manual Diff Complete 06/14/21 04:42 Total Counted 100 06/14/21 04:42 Seg Neutrophils % 88.1 % (40.0-70.0) H 06/12/21 08:31 Seg Neuts % (Manual) 92.0 % (40.0-70.0) H 06/14/21 04:42 Band Neutrophils % 2.0 % 06/14/21 04:42 Lymphocytes % (Manual) 1.0 % (13.4-35.0) L 06/14/21 04:42 Monocytes % (Manual) 3.0 % (0.0-7.3) 06/14/21 04:42 Eosinophils % (Manual) 1.0 % (0.0-4.3) 06/13/21 07:42 Metamyelocytes % 2.0 % 06/10/21 23:14 Myelocytes % 2.0 % 06/14/21 04:42 Nucleated RBC % 2.0 % (0.0-0.9) H 06/14/21 04:42 Seg Neutrophils # 10.9 K/mm3 (1.8-7.7) H 06/12/21 08:31 Seg Neutrophils # Man 11.8 K/mm3 (1.8-7.7) H 06/14/21 04:42 Band Neutrophils # 0.3 K/mm3 06/14/21 04:42 Lymphocytes # (Manual) 0.1 K/mm3 (1.2-5.4) L 06/14/21 04:42 Abs React Lymphs (Man) 0.0 K/mm3 06/14/21 04:42 Monocytes # (Manual) 0.4 K/mm3 (0.0-0.8) 06/14/21 04:42 Eosinophils # (Manual) 0.0 K/mm3 (0.0-0.4) 06/14/21 04:42 Basophils # (Manual) 0.0 K/mm3 (0.0-0.1) 06/14/21 04:42 Metamyelocytes # 0.0 K/mm3 06/14/21 04:42 Myelocytes # 0.3 K/mm3 06/14/21 04:42 Promyelocytes # 0.0 K/mm3 06/14/21 04:42 Blast Cells # 0.0 K/mm3 06/14/21 04:42 WBC Morphology Not Reportable 06/14/21 04:42 Hypersegmented Neuts Not Reportable 06/14/21 04:42 Hyposegmented Neuts Not Reportable 06/14/21 04:42 Hypogranular Neuts Not Reportable 06/14/21 04:42 Smudge Cells Not Reportable 06/14/21 04:42 Toxic Granulation Not Reportable 06/14/21 04:42 Toxic Vacuolation Not Reportable 06/14/21 04:42 Dohle Bodies Not Reportable 06/14/21 04:42 Pelger-Huet Anomaly Not Reportable 06/14/21 04:42 Nba Rods Not Reportable 06/14/21 04:42 Platelet Estimate Consistent w auto 06/14/21 04:42 Clumped Platelets Few 06/14/21 04:42 Plt Clumps, EDTA Not Reportable 06/14/21 04:42 Large Platelets Rare 06/14/21 04:42 Giant Platelets Not Reportable 06/14/21 04:42 Platelet Satelliting Not Reportable 06/14/21 04:42 Plt Morphology Comment Not Reportable 06/14/21 04:42 RBC Morphology Normal 06/14/21 04:42 Dimorphic RBCs Not Reportable 06/14/21 04:42 Polychromasia Not Reportable 06/14/21 04:42 Hypochromasia Not Reportable 06/14/21 04:42 Poikilocytosis Not Reportable 06/14/21 04:42 Anisocytosis Not Reportable 06/14/21 04:42 Microcytosis Not Reportable 06/14/21 04:42 Macrocytosis Not Reportable 06/14/21 04:42 Spherocytes Not Reportable 06/14/21 04:42 Pappenheimer Bodies Not Reportable 06/14/21 04:42 Sickle Cells Not Reportable 06/14/21 04:42 Target Cells Not Reportable 06/14/21 04:42 Tear Drop Cells Not Reportable 06/14/21 04:42 Ovalocytes Not Reportable 06/14/21 04:42 Helmet Cells Not Reportable 06/14/21 04:42 [place] Bodies Not Reportable 06/14/21 04:42 [place] Rings Not Reportable 06/14/21 04:42 Barbie Cells Not Reportable 06/14/21 04:42 Bite Cells Not Reportable 06/14/21 04:42 Crenated Cell Not Reportable 06/14/21 04:42 Elliptocytes Not Reportable 06/14/21 04:42 Acanthocytes (Spur) Not Reportable 06/14/21 04:42 Rouleaux Not Reportable 06/14/21 04:42 Hemoglobin C Crystals Not Reportable 06/14/21 04:42 Schistocytes Not Reportable 06/14/21 04:42 Malaria parasites Not Reportable 06/14/21 04:42 Luis Bodies Not Reportable 06/14/21 04:42 Hem Pathologist Commnt No 06/14/21 04:42 D-Dimer > 72506 ng/mlDDU (0-234) H 06/11/21 10:57 ABG pH 7.318 pH Units (7.350-7.450) L 06/12/21 04:22 POC ABG pCO2 34.2 mmHg (32.0-48.0) 06/09/21 12:19 ABG pCO2 40.1 mm Hg 06/12/21 04:22 POC ABG pO2 71.4 mmHg (83-108) L 06/09/21 12:19 ABG pO2 51.5 mm Hg (80.0-90.0) L 06/12/21 04:22 POC ABG HCO3 20.5 06/09/21 12:19 ABG HCO3 20.1 mmol/L (20.0-26.0) 06/12/21 04:22 ABG O2 Saturation 86.9 % (95.0-99.0) L 06/12/21 04:22 ABG O2 Content 16.2 (0.0-44) 06/12/21 04:22 POC ABG Base Excess -3.6 06/09/21 12:19 ABG Base Excess -5.6 mmol/L (-2.0-3.0) L 06/12/21 04:22 ABG Hemoglobin 13.5 gm/dl (12.0-16.0) 06/12/21 04:22 ABG Oxyhemoglobin 92.9 (94-98) L 06/09/21 12:19 ABG Carboxyhemoglobin 1.1 % (0.0-5.0) 06/12/21 04:22 ABG Methemoglobin 0.5 % (0.0-1.5) 06/12/21 04:22 ABG Sodium 143.5 mmol/L (136.0-145.0) 06/09/21 12:19 ABG Potassium 3.6 mmol/L (3.40-4.50) 06/09/21 12:19 ABG Chloride 109.0 mmol/L (98-107) H 06/09/21 12:19 ABG Glucose 287 mg/dL (65-95) H 06/09/21 12:19 Oxyhemoglobin 85.5 % (95.0-99.0) L 06/12/21 04:22 Carboxyhemoglobin 0.4 (0.5-1.5) L 06/09/21 12:19 FiO2 100 % 06/12/21 04:22 FiO2 % 75.0 06/09/21 12:19 Sodium 152 mmol/L (137-145) H 06/14/21 04:42 Potassium 4.0 mmol/L (3.6-5.0) 06/14/21 04:42 Chloride 115.3 mmol/L (98-107) H 06/14/21 04:42 Carbon Dioxide 23 mmol/L (22-30) 06/14/21 04:42 Anion Gap 18 mmol/L 06/14/21 04:42 BUN 68 mg/dL (7-17) H 06/14/21 04:42 Creatinine 2.5 mg/dL (0.6-1.2) H 06/14/21 04:42 Estimated GFR 24 ml/min 06/14/21 04:42 BUN/Creatinine Ratio 27 % 06/14/21 04:42 Glucose 188 mg/dL (65-100) H 06/14/21 04:42 POC Glucose 235 mg/dL (70-105) H 06/14/21 23:40 Hemoglobin A1c 9.5 % (4-6) H 06/07/21 19:11 Calcium 8.9 mg/dL (8.4-10.2) 06/14/21 04:42 Calcium 9.0 mg/dL (8.4-10.2) 06/14/21 04:42 Phosphorus 3.30 mg/dL (2.5-4.5) 06/14/21 04:42 Magnesium 2.40 mg/dL (1.7-2.3) H 06/14/21 04:42 Ferritin 1300.0 ng/mL (10.0-200.0) H 06/11/21 10:57 Total Bilirubin 0.30 mg/dL (0.1-1.2) 06/08/21 03:44 AST 29 units/L (5-40) 06/08/21 03:44 ALT 19 units/L (7-56) 06/08/21 03:44 Alkaline Phosphatase 58 units/L (35-129) 06/08/21 03:44 Lactate Dehydrogenase 606 units/L (91-180) H 06/10/21 23:14 Troponin T 0.021 ng/mL (0.00-0.029) 06/08/21 13:49 C-Reactive Protein 1.90 mg/dL (0.00-1.30) H 06/11/21 10:58 Total Protein 7.9 g/dL (6.3-8.2) 06/08/21 03:44 Albumin 3.4 g/dL (3.9-5) L 06/08/21 03:44 Albumin/Globulin Ratio 0.8 % 06/08/21 03:44 Triglycerides 209 mg/dL (2-149) H 06/07/21 19:11 Cholesterol 165 mg/dL (50-199) 06/07/21 19:11 LDL Cholesterol Direct 79 mg/dL (50-130) 06/07/21 19:11 HDL Cholesterol 35 mg/dL (40-59) L 06/07/21 19:11 Cholesterol/HDL Ratio 4.71 % 06/07/21 19:11 Procalcitonin 0.91 ng/mL (<0.15) 06/07/21 19:11 Arterial Blood Glucose 287 mg/dL (65-95) H 06/09/21 12:19 Coronavirus (PCR) Positive (Negative) A 06/08/21 08:30 Blood Type B POSITIVE 06/07/21 22:34 Antibody Screen Negative 06/07/21 22:34 Roland/IV: Voiding Method External Female Catheter Active Medications - Current Medications Current Medications: Generic Name Dose Route Start Last Admin Trade Name Freq PRN Reason Stop Dose Admin Acetaminophen 650 mg 06/07/21 21:41 Acetaminophen 325 Mg Tab PO Q4H PRN Pain MILD(1-3)/Fever >100.5/MARTÍNEZ Albuterol 2 puff 06/07/21 23:00 Albuterol 8.5 Gm Mdi Inhalation IH Q4HRT PRN Shortness Of Breath Alprazolam 0.5 mg 06/15/21 04:58 06/15/21 05:33 Alprazolam 0.5 Mg Tab PO 0.5 mg Q8H PRN Administration Anxiety Apixaban 5 mg 06/08/21 10:00 06/14/21 22:12 Apixaban 5 Mg Tab PO 5 mg BID LEONOR Administration Atorvastatin Calcium 10 mg 06/08/21 10:00 06/14/21 09:15 Atorvastatin 10 Mg Tab PO 10 mg DAILY LEONOR Administration Carvedilol 3.125 mg 06/07/21 22:00 06/14/21 22:14 Carvedilol 3.125 Mg Tab PO 3.125 mg BID LEONOR Administration Dexamethasone 8 mg 06/08/21 10:00 06/14/21 09:10 Dexamethasone 4 Mg/Ml Vial IV 06/16/21 10:01 8 mg Q24HR LEONOR Administration Dextrose 50 ml 06/08/21 12:04 Dextrose 50% In Water (25gm) 50 Ml Syringe IV Q30MIN PRN Hypoglycemia Protocol Docusate Sodium 100 mg 06/07/21 21:33 Docusate Sodium 100 Mg Cap PO BID PRN Constipation Famotidine 10 mg 06/14/21 22:00 06/14/21 22:12 Famotidine 10 Mg Tab PO 10 mg BID LEONOR Administration Guaifenesin 10 ml 06/09/21 00:15 06/11/21 06:12 Guaifenesin Dm 200/20 Mg Oral Liqd 10 Ml PO 10 ml Q4H PRN Administration Cough Hydralazine HCl 25 mg 06/07/21 22:00 06/15/21 05:30 Hydralazine 25 Mg Tab PO 25 mg Q8HR LEONOR Administration Hydromorphone HCl 0.5 mg 06/07/21 21:41 Hydromorphone 1 Mg/1 Ml Inj IV Q3H PRN Pain , Severe (7-10) Hydromorphone HCl 0.25 mg 06/07/21 22:33 Hydromorphone 1 Mg/1 Ml Inj IV Q4H PRN Pain, Moderate (4-6) Hydrophilic Ointment 1 applic 06/13/21 07:30 Lip Therapy Vaseline TP DIRECT PRN Dry Lips Dextrose 1,000 mls @ 125 mls/hr 06/14/21 10:00 06/14/21 22:22 D5w IV 125 mls/hr DIRECT LEONOR Administration Insulin Human Isoph/Insulin Regular 30 unit 06/11/21 08:00 06/14/21 17:58 Insulin Nph/Regular 70/30 Inj SUB-Q 30 unit BIDDIAB LEONOR Administration Insulin Human Regular 0 units 06/08/21 12:15 06/14/21 23:45 Insulin Regular, Human 100 Units/1 Ml SUB-Q 6 units ACHS LEONOR Administration Protocol Levothyroxine Sodium 75 mcg 06/08/21 06:00 06/15/21 05:29 Levothyroxine 75 Mcg Tab PO 75 mcg QAM@0600 LEONOR Administration Levothyroxine Sodium 200 mcg 06/08/21 06:00 06/15/21 05:29 Levothyroxine 100 Mcg Tab PO 200 mcg DAILY@0600 LEONOR Administration Loratadine/Pseudoephedrine Sulfate 1 each 06/08/21 10:00 06/14/21 12:57 Loratadine/Pseudoephedrine 10-240 Mg Tab 24hr PO 1 each Q24HR LEONOR Administration Ondansetron HCl 4 mg 06/07/21 22:00 06/15/21 05:29 Ondansetron 4 Mg Odt Tab PO 4 mg Q8HR LEONOR Administration Ondansetron HCl 4 mg 06/07/21 21:41 06/10/21 06:24 Ondansetron 4 Mg/2 Ml Inj IV 4 mg Q8H PRN Administration Nausea And Vomiting Oxycodone/Acetaminophen 1 tab 06/07/21 21:41 06/09/21 17:05 Oxycodone /Acetaminophen 5-325mg Tab PO 1 tab Q6H PRN Administration Pain, Moderate (4-6) Sodium Bicarbonate 650 mg 06/10/21 14:00 06/14/21 22:12 Sodium Bicarbonate 650 Mg Tab PO 650 mg TID LEONOR Administration Sodium Chloride 10 ml 06/07/21 22:00 06/14/21 22:15 Sodium Chloride 0.9% 10 Ml Flush Syringe IV 10 ml BID LEONOR Administration Sodium Chloride 10 ml 06/07/21 21:41 Sodium Chloride 0.9% 10 Ml Flush Syringe IV PRN PRN LINE FLUSH Nutrition/Malnutrition Assess - Dietary Evaluation Nutrition/Malnutrition Findings: Nutrition Notes Start: 06/08/21 10:56 Freq: Status: Active Protocol: Document 06/14/21 14:24 GB (Rec: 06/14/21 14:30 GB [id number]) Nutrition Notes Initial or Follow up Reassessment Current Diagnosis Acute Kidney Injury,Diabetes, Sepsis,Hypertension, Respiratory Failure Other Pertinent Diagnosis COVID-19 PUI, hypothyroid Current Diet consistent CHO/cardiac, pureed texture Labs/Tests 06/14: Na 152, BUN 68, Creatinine 2.5, glucose 188, Mg 2.4 Pertinent Medications Zofran NS at 10 ml/hr Height 5 ft 11 in Weight 164 kg [place] Body Weight (kg) 70.45 BMI 50.4 Weight change and time frame No significant changes reported. Stable. Weight Status Morbidly Obese Subjective/Other Information Per chart nursing staff recorded PO intake of meals as 100%. Supplement beverages glucerna have been d/c'd. Percent of energy/protein needs met: PO intake of meals 100% TID meets 75% or greater of estimated energy needs. Burn Absent Trauma Absent GI Symptoms None Difficulty In Swallowing,Chewing Food Allergy Yes Current % PO Good (75-100%) Minimum of two criteria No #1 Nutrition Diagnosis Predicted suboptimal energy intake Comments: PO intake of meals recorded currently for one day at 25%, independent with meals. 06/14: PO intake of meals recorded as 100% x2days. Etiology ARF As Evidenced by Signs and Symptoms pt on bipap Diagnosis Progress(for reassessment Improved documentation) Is patient on ventilator? No Is Patient Ambulatory and/or Out of Bed No REE-([facility]-confined to bed) 2771.148 Kcal/Kg value to use for calculation 12 Approximate Energy Requirements Using 1968 kcal/Kg Calculation Used for Recommendations Kcal/kg Additional Notes Protein: (0.8-1g/kg AdjBW) 94- 117g/day Fluid: 1 ml/kcal Nutrition Intervention Change Diet Order: Continue Add Supplement/Snack (indicate name/kcal n/a - history of pt not liking /protein ) nutrition supplement beverages Goal #1 PO intake of meals to improve to 50% or greater TID daily during LOS 06/14: met, PO intake recorded as 100%, continues Goal #2 Weight to maintain within =/-3 % current weight during LOS 06/14: met, continues Follow-Up By: 06/21/21 Additional Comments Nursing continue to record Meal intake.
[2021-06-15 07:56] LABS: Hematocrit 39.8 % (30.3-42.9); Mean Corpuscular HGB Conc 33 % (30-34); Mean Corpuscular Volume 86 fl (79-97); Platelet Count 140 K/mm3 (140-440); Red Blood Count 4.64 M/mm3 (3.65-5.03); Red Cell Distribution Width 15.1 % (13.2-15.2)
[2021-06-15 08:23] LABS: Calcium 9.1 mg/dL (8.4-10.2)
[2021-06-15 08:42] LABS: Band Neutrophils # (Manual) 0.6 K/mm3; Ovalocytes 1+; Platelet Estimate Consistent w Auto; Tear Drop Cells 1+; Total Cells Counted 100
[2021-06-15] MEDS: dexAMETHasone 4 MG/ML VIAL IV SCH (09:16)
[2021-06-15] MEDS: FAMOTIDINE 10 MG TAB PO SCH (09:18)
[2021-06-15] MEDS: SODIUM BICARBONATE 650 MG TAB PO SCH ×2 (09:18→13:16)
[2021-06-15] MEDS: INSULIN NPH/REGULAR 70/30 INJ SUB-Q SCH ×2 (09:19→18:17)
[2021-06-15] MEDS: carvediloL 3.125 MG TAB PO SCH (09:19)
[2021-06-15] MEDS: APIXABAN 5 MG TAB PO SCH (09:19)
[2021-06-15] MEDS: LORATADINE/PSEUDOEPHEDRINE 10-240 MG TAB 24HR PO SCH (09:24)
[2021-06-15] MEDS: INSULIN REGULAR, HUMAN 100 UNITS/1 ML SUB-Q SCH ×4 (09:30→18:16)
--- NOTE | 2021-06-15 12:00 | Progress Note ---
Assessment and Plan Cultures: SARS CoV2 PCR positive Assessment: 61-year-old female with history of diabetes mellitus, hypertension, hyperlipidemia, hypothyroidism, vaccinated for COVID-19 with [employer] 2020, admitted on 06/07/2021 secondary to a week history of malaise, chills, fever cough, shortness of breath: #Severe sepsis : likely due to bilateral pneumonia. #Severe breakthrough COVID pneumonia: CXR with bilateral multifocal pneumonia. Inflammatory markers elevated. No indication for remdesivir due to renal failure. Received Actemra on 06/09/2021, on steroids. #Acute hypoxemic respiratory failure: Requiring BiPAP/HFNC. #TREMAINE: from sepsis/COVID #Diabetes mellitus: Uncontrolled. Glucose 244. A1c 9.5. #Morbid obesity Recommendations: -Status post Actemra 06/09/2021 -Continue dexamethasone IV/PO daily for 10 days, benefit beyond that is unclear and may increase risk of nosocomial infections especially given Actemra use -Continue anticoagulation per System Protocol, very high d-dimer, on apixaban -completed abx -poor prognosis Hollie Oviedo MD, FACP [facility] ([facility] O: [phone] F: [phone] Subjective Date of service: 06/15/21 Principal diagnosis: TREMAINE Interval history: Afebrile. Remains agitated at times. Hypoxic Objective - Exam Narrative Exam: Physical Exam (reviewed in chart to minimize risk of transmission) Constitutional: deferred Head, Ears, Nose: deferred Eyes: deferred Neck: deferred Oral: deferred Cardiovascular: deferred Respiratory: deferred GI: deferred Musculoskeletal: deferred Skin: deferred Hem/Lymphatic: deferred Psych: deferred Neurological: deferred - Constitutional Vitals: Vital Signs Temp Pulse Resp BP Pulse Ox 97.7 F 112 H 18 156/87 94 06/15/21 05:00 06/15/21 05:00 06/15/21 05:00 06/15/21 05:00 06/15/21 09:05 Temperature -Last 24 Hours Temperature 97.7 F Temperature 97.5 F Temperature 98.4 F - Labs CBC & Chem 7: 06/15/21 07:38 06/15/21 07:38 Labs: Abnormal lab results 06/14/21 06/14/21 06/15/21 Range/Units 15:53 23:40 07:38 WBC 14.3 H (4.5-11.0) K/mm3 Seg Neuts % (Manual) 95.0 H (40.0-70.0) % Lymphocytes % (Manual) 1.0 L (13.4-35.0) % Seg Neutrophils # Man 13.6 H (1.8-7.7) K/mm3 Lymphocytes # (Manual) 0.1 L (1.2-5.4) K/mm3 D-Dimer (0-234) ng/mlDDU Sodium (137-145) mmol/L Potassium (3.6-5.0) mmol/L Chloride (98-107) mmol/L BUN (7-17) mg/dL Creatinine (0.6-1.2) mg/dL Glucose (65-100) mg/dL POC Glucose 226 H 235 H (70-105) mg/dL Ferritin (10.0-200.0) ng/mL 06/15/21 06/15/21 06/15/21 Range/Units 07:38 07:38 07:38 WBC (4.5-11.0) K/mm3 Seg Neuts % (Manual) (40.0-70.0) % Lymphocytes % (Manual) (13.4-35.0) % Seg Neutrophils # Man (1.8-7.7) K/mm3 Lymphocytes # (Manual) (1.2-5.4) K/mm3 D-Dimer > 52095 H (0-234) ng/mlDDU Sodium 153 H (137-145) mmol/L Potassium 3.5 L (3.6-5.0) mmol/L Chloride 115.9 H (98-107) mmol/L BUN 55 H (7-17) mg/dL Creatinine 2.1 H (0.6-1.2) mg/dL Glucose 213 H (65-100) mg/dL POC Glucose (70-105) mg/dL Ferritin 1246.0 H (10.0-200.0) ng/mL 06/15/21 06/15/21 Range/Units 09: 11:46 WBC (4.5-11.0) K/mm3 Seg Neuts % (Manual) (40.0-70.0) % Lymphocytes % (Manual) (13.4-35.0) % Seg Neutrophils # Man (1.8-7.7) K/mm3 Lymphocytes # (Manual) (1.2-5.4) K/mm3 D-Dimer (0-234) ng/mlDDU Sodium (137-145) mmol/L Potassium (3.6-5.0) mmol/L Chloride (98-107) mmol/L BUN (7-17) mg/dL Creatinine (0.6-1.2) mg/dL Glucose (65-100) mg/dL POC Glucose 202 H 233 H (70-105) mg/dL Ferritin (10.0-200.0) ng/mL
--- NOTE | 2021-06-15 12:08 | Progress Note ---
Assessment and Plan Assessment COVID-19 breakthrough infection COVID-19 pneumonia Acute renal failure versus acute on chronic renal failure Acute hypoxic respiratory failure Insulin-dependent type 2 diabetes- uncontrolled Elevated troponin Hypertension-controlled Hypothyroidism Protein calorie malnutrition Hypernatremia Plan Renal labs reviewed. Serum creatinine 2.1 today, yesterday's was 2.5, non- oliguric Renal US was negative for hydronephrosis Hypernatremia- recent sodium level 153- Patient has not been receiving D5W@ 125 ml/hr continuously since yesterday due to pulling IV out yesterday and again this morning, nurse states patient is currently without IV for few hours now and is awaiting new IV line to be placed by IV team again. Nurse states patient barely eats but can drink, discussed with nurse to give patient 400 ml of water by mouth every 4 hours Replete potassium as needed Renally dose medications Avoid nephrotoxic agents Strict I&O's daily Obtain daily weights Plan of care reviewed by Dr. Schultz Subjective Date of service: 06/15/21 Principal diagnosis: TREMAINE Interval history: Patient on isolation for CVOID-19 infection. Objective - Vital Signs Vital signs: Vital Signs - 12hr 06/15/21 06/15/21 06/15/21 02:12 05:00 09:05 Temperature 97.7 F Pulse Rate 112 H Respiratory 18 Rate Blood Pressure 156/87 [Left] O2 Sat by Pulse 98 90 94 Oximetry - Lab 06/15/21 07:38 06/15/21 07:38 Most recent lab results ABG pH 7.318 pH Units (7.350-7.450) L 06/12/21 04:22 ABG pCO2 40.1 mm Hg 06/12/21 04:22 ABG pO2 51.5 mm Hg (80.0-90.0) L 06/12/21 04:22 ABG HCO3 20.1 mmol/L (20.0-26.0) 06/12/21 04:22 ABG O2 Saturation 86.9 % (95.0-99.0) L 06/12/21 04:22 Calcium 9.1 mg/dL (8.4-10.2) 06/15/21 07:38 Phosphorus 3.30 mg/dL (2.5-4.5) 06/14/21 04:42 Magnesium 2.40 mg/dL (1.7-2.3) H 06/14/21 04:42 Medications & Allergies - Medications Allergies/Adverse Reactions: Allergies latex Allergy (Verified 03/19/19 17:03) Unknown shellfish derived Allergy (Verified 03/19/19 17:03) Anaphylaxis strawberry Allergy (Verified 03/19/19 17:03) Anaphylaxis tomato Allergy (Verified 03/19/19 17:03) Anaphylaxis nuts Allergy (Uncoded 03/19/19 17:03) Anaphylaxis Home Medications: Home Medications Medication Instructions Recorded Confirmed Last Taken Type Albuterol Sulfate [Ventolin HFA] 2 puff IH Q4H PRN 01/29/14 06/11/21 02/01/15 History Levothyroxine (Nf) [Synthroid (Nf)] 275 mcg PO QAM 01/29/14 06/11/21 02/01/15 History Fluticasone/Salmeterol [Advair 1 each IH PRN PRN 01/26/15 06/11/21 02/02/15 10:00 History Diskus 250-50 mcg] Apixaban [Eliquis starter pack] 5 mg PO BID 09/13/19 06/11/21 Unknown History Insulin Aspart Prot/Insuln Asp 45 unit SUB-Q QAM 09/13/19 06/11/21 Unknown History [Novolog Mix 70-30 Flexpen] Insulin Glargine,Hum.rec.anlog 25 unit SQ HS 09/13/19 06/11/21 Unknown History [Basaglar Kwikpen U-100] Lovastatin [Altoprev] 20 mg PO DAILY 09/13/19 06/11/21 Unknown History Docusate Sodium [Colace CAP] 100 mg PO BID PRN #30 capsule 09/17/19 06/11/21 Unknown Rx Loratadine/Pseudoephedrine 1 each PO Q24HR #10 tablet 09/17/19 06/11/21 Unknown Rx [Claritin-D 24HR] Ondansetron [Zofran Odt] 4 mg PO Q8HR #20 tab.rapdis 09/17/19 06/11/21 Unknown Rx carvediloL [Coreg] 3.125 mg PO BID #60 tablet 09/17/19 06/11/21 Unknown Rx hydrALAZINE [Apresoline TAB] 25 mg PO Q8HR #90 tablet 09/17/19 06/11/21 Unknown Rx Active Medications: Generic Name Dose Route Start Last Admin Trade Name Freq PRN Reason Stop Dose Admin Acetaminophen 650 mg 06/07/21 21:41 Acetaminophen 325 Mg Tab PO Q4H PRN Pain MILD(1-3)/Fever >100.5/MARTÍNEZ Albuterol 2 puff 06/07/21 23:00 Albuterol 8.5 Gm Mdi Inhalation IH Q4HRT PRN Shortness Of Breath Alprazolam 0.5 mg 06/15/21 04:58 06/15/21 05:33 Alprazolam 0.5 Mg Tab PO 0.5 mg Q8H PRN Administration Anxiety Apixaban 5 mg 06/08/21 10:00 06/15/21 09:19 Apixaban 5 Mg Tab PO 5 mg BID LEONOR Administration Atorvastatin Calcium 10 mg 06/08/21 10:00 06/15/21 09:23 Atorvastatin 10 Mg Tab PO 10 mg DAILY LEONOR Administration Carvedilol 3.125 mg 06/07/21 22:00 06/15/21 09:19 Carvedilol 3.125 Mg Tab PO 3.125 mg BID LEONOR Administration Dexamethasone 8 mg 06/08/21 10:00 06/15/21 09:16 Dexamethasone 4 Mg/Ml Vial IV 06/16/21 10:01 8 mg Q24HR LEONOR Administration Dextrose 50 ml 06/08/21 12:04 Dextrose 50% In Water (25gm) 50 Ml Syringe IV Q30MIN PRN Hypoglycemia Protocol Docusate Sodium 100 mg 06/07/21 21:33 Docusate Sodium 100 Mg Cap PO BID PRN Constipation Famotidine 10 mg 06/14/21 22:00 06/15/21 09:18 Famotidine 10 Mg Tab PO 10 mg BID LEONOR Administration Guaifenesin 10 ml 06/09/21 00:15 06/11/21 06:12 Guaifenesin Dm 200/20 Mg Oral Liqd 10 Ml PO 10 ml Q4H PRN Administration Cough Hydralazine HCl 25 mg 06/07/21 22:00 06/15/21 05:30 Hydralazine 25 Mg Tab PO 25 mg Q8HR LEONOR Administration Hydromorphone HCl 0.5 mg 06/07/21 21:41 Hydromorphone 1 Mg/1 Ml Inj IV Q3H PRN Pain , Severe (7-10) Hydromorphone HCl 0.25 mg 06/07/21 22:33 Hydromorphone 1 Mg/1 Ml Inj IV Q4H PRN Pain, Moderate (4-6) Hydrophilic Ointment 1 applic 06/13/21 07:30 Lip Therapy Vaseline TP DIRECT PRN Dry Lips Dextrose 1,000 mls @ 125 mls/hr 06/14/21 10:00 06/14/21 22:22 D5w IV 125 mls/hr DIRECT LEONOR Administration Insulin Human Isoph/Insulin Regular 30 unit 06/11/21 08:00 06/15/21 09:19 Insulin Nph/Regular 70/30 Inj SUB-Q 30 unit BIDDIAB LEONOR Administration Insulin Human Regular 0 units 06/08/21 12:15 06/15/21 09:30 Insulin Regular, Human 100 Units/1 Ml SUB-Q 4 units ACHS LEONOR Administration Protocol Levothyroxine Sodium 75 mcg 06/08/21 06:00 06/15/21 05:29 Levothyroxine 75 Mcg Tab PO 75 mcg QAM@0600 LEONOR Administration Levothyroxine Sodium 200 mcg 06/08/21 06:00 06/15/21 05:29 Levothyroxine 100 Mcg Tab PO 200 mcg DAILY@0600 LEONOR Administration Loratadine/Pseudoephedrine Sulfate 1 each 06/08/21 10:00 06/15/21 09:24 Loratadine/Pseudoephedrine 10-240 Mg Tab 24hr PO Not Given Q24HR LEONOR Ondansetron HCl 4 mg 06/07/21 22:00 06/15/21 05:29 Ondansetron 4 Mg Odt Tab PO 4 mg Q8HR LEONOR Administration Ondansetron HCl 4 mg 06/07/21 21:41 06/10/21 06:24 Ondansetron 4 Mg/2 Ml Inj IV 4 mg Q8H PRN Administration Nausea And Vomiting Oxycodone/Acetaminophen 1 tab 06/07/21 21:41 06/09/21 17:05 Oxycodone /Acetaminophen 5-325mg Tab PO 1 tab Q6H PRN Administration Pain, Moderate (4-6) Sodium Bicarbonate 650 mg 06/10/21 14:00 06/15/21 09:18 Sodium Bicarbonate 650 Mg Tab PO 650 mg TID LEONOR Administration Sodium Chloride 10 ml 06/07/21 22:00 06/15/21 09:20 Sodium Chloride 0.9% 10 Ml Flush Syringe IV 10 ml BID LEONOR Administration Sodium Chloride 10 ml 06/07/21 21:41 Sodium Chloride 0.9% 10 Ml Flush Syringe IV PRN PRN LINE FLUSH
--- NOTE | 2021-06-15 20:23 | Progress Note ---
Assessment and Plan This is 61-year-old female, Morbidly Obese admitted with shortness of breath that has been ongoing for several days. She had been around family that had been sick with coronavirus symptoms. Patient said she has been vaccinated for COVID-19. She denies vomiting and diarrhea. Reported generalized weakness and difficulty breathing. She has had subjective fevers and chills associate with a cough. Cough has been producing yellowish phlegm. Patient has history of diabetes, Hypertension,Hyperlipidemia and hypothyroidism and CKD. Denies smoking, alcohol or drug abuse. 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 Patient and has no children. Patient sleeping and still on vapotherm, FIO2 100% and O2 saturation running 93%. BIPAP stand by in the room. Patient awake and anxious. Patient still on vapotherm,and O2 requirments came down to 60% and O2 saturation running 92%. BIPAP stand by in the room. Patients ABGs 06/12/21 reported PH 7.31, [id number], PO2 52, HCO3 20, O2 saturation 87% on 100% FIO2 Patient afebrile and has leukocytosis. Patients blood pressure 154/88. Pulse 101 Chest xray that was done 06/07/21 reported Multifocal pneumonia. Patients Repeat Holden virus PCR reported Positive. Patient is on Apixaban, Dexamethasone and Famotidine and albuterol inhaler. I spent critical care time of 35 minutes, reviewing the chart, Examine the patient, review labs and chest xray, talking to respiratory therapy and nursing staff and work out plan of treatment inthis critically ill acute hypoxic respiratory failure patient. - Patient Problems (1) Acute respiratory failure with hypoxia Current Visit: Yes Status: Acute Plan to address problem: Patient is on Vapotherm, FIO2 60% Patient is on Dexamethasone. Patient is on Apixaban. Continue famotidine. (2) Coronavirus infection Current Visit: Yes Status: Acute Plan to address problem: Patient is on dexamethasone Apixaban Management as per infectious diseases. (3) Pneumonia due to COVID-19 virus Current Visit: Yes Status: Acute Plan to address problem: Patient was on Ceftriaxone. (4) Acute kidney injury superimposed on CKD Current Visit: No Status: Acute Plan to address problem: Management as per nephrology. (5) Hypertension Current Visit: No Status: Acute Plan to address problem: Management as per primary care. (6) Diabetes mellitus type 2, insulin dependent Current Visit: No Status: Chronic Plan to address problem: Management as per primary care. (7) Hypothyroidism Current Visit: No Status: Chronic Plan to address problem: Patient is on Levothyroxine. Management as per primary care. (8) Morbid obesity Current Visit: No Status: Chronic Plan to address problem: Recommend to loose weight. Diet and exercise. Recommend sleep study as out patient once she recovered from present problem. Subjective Date of service: 06/15/21 Principal diagnosis: TREMAINE Interval history: This is 61-year-old female, Morbidly Obese admitted with shortness of breath th at has been ongoing for several days. She had been around family that had been sick with coronavirus symptoms. Patient said she has been vaccinated for COVID- 19. She denies vomiting and diarrhea. Reported generalized weakness and difficulty breathing. She has had subjective fevers and chills associate with a cough. Cough has been producing yellowish phlegm. Patient has history of diabetes, Hypertension,Hyperlipidemia and hypothyroidism and CKD. Denies smoking, alcohol or drug abuse. 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 Patient awake and anxious. Patient still on vapotherm,and O2 requirments came down to 60% and O2 saturation running 92%. BIPAP stand by in the room. Patients ABGs 06/12/21 reported PH 7.31, [id number], PO2 52, HCO3 20, O2 saturation 87% on 100% FIO2 Patient afebrile and has leukocytosis. Patients blood pressure 154/88. Pulse 101 Chest xray that was done 06/07/21 reported Multifocal pneumonia. Patients Repeat Holden virus PCR reported Positive. Patient is on Apixaban, Dexamethasone and Famotidine and albuterol inhaler. Objective Vital Signs - 12hr 06/15/21 06/15/21 06/15/21 09:05 10:00 11:52 Temperature 98.8 F Pulse Rate 101 H Respiratory 24 Rate Blood Pressure 140/74 O2 Sat by Pulse 94 88 92 Oximetry 06/15/21 17:36 Temperature 98.4 F Pulse Rate 101 H Respiratory 24 Rate Blood Pressure 154/88 O2 Sat by Pulse 85 Oximetry Constitutional: alert, appears uncomfortable, other (Morbidly Obese, Mild shortness of breath at rest. Weak. On Vapotherm 60%.) Eyes: non-icteric ENT: oropharynx moist Neck: supple, no lymphadenopathy Effort: mildly labored Ascultation: Bilateral: diminished breath sounds, rhonchi Cardiovascular: regular rate and rhythm Gastrointestinal: normoactive bowel sounds, soft, non-tender Integumentary: normal Extremities: no cyanosis, no edema Neurologic: normal mental status, non-focal exam, pupils equal and round, CN II- XII normal Psychiatric: mood appropriate, affect normal CBC and BMP: 06/15/21 07:38 06/16/21 05:44 ABG, PT/INR, D-dimer: ABG ABG pH 7.318 pH Units (7.350-7.450) L 06/12/21 04:22 POC ABG pCO2 34.2 mmHg (32.0-48.0) 06/09/21 12:19 ABG pCO2 40.1 mm Hg 06/12/21 04:22 POC ABG pO2 71.4 mmHg (83-108) L 06/09/21 12:19 ABG pO2 51.5 mm Hg (80.0-90.0) L 06/12/21 04:22 POC ABG HCO3 20.5 06/09/21 12:19 ABG O2 Saturation 86.9 % (95.0-99.0) L 06/12/21 04:22 PT/INR, D-dimer D-Dimer > 27153 ng/mlDDU (0-234) H 06/15/21 07:38 Abnormal lab findings: Abnormal Labs 06/07/21 06/07/21 06/07/21 19:11 19:11 19:11 WBC 11.5 H RBC Hgb Hct RDW Lymph % (Auto) 6.5 L Lymph # (Auto) 0.8 L Seg Neutrophils % 89.9 H Seg Neuts % (Manual) Lymphocytes % (Manual) Nucleated RBC % Seg Neutrophils # 10.4 H Seg Neutrophils # Man Lymphocytes # (Manual) D-Dimer 5334.05 H ABG pH POC ABG pO2 ABG pO2 ABG O2 Saturation ABG Base Excess ABG Oxyhemoglobin ABG Chloride ABG Glucose Oxyhemoglobin Carboxyhemoglobin Sodium Potassium Chloride Carbon Dioxide BUN 67 H Creatinine 4.8 H Glucose 244 H POC Glucose Hemoglobin A1c Calcium Magnesium Ferritin Lactate Dehydrogenase 796 H Troponin T 0.043 H C-Reactive Protein 19.60 H Total Protein 8.4 H Albumin 3.1 L Triglycerides 209 H HDL Cholesterol 35 L Arterial Blood Glucose Coronavirus (PCR) 06/07/21 06/07/21 06/08/21 19:11 19:11 03:04 WBC RBC Hgb Hct RDW Lymph % (Auto) Lymph # (Auto) Seg Neutrophils % Seg Neuts % (Manual) Lymphocytes % (Manual) Nucleated RBC % Seg Neutrophils # Seg Neutrophils # Man Lymphocytes # (Manual) D-Dimer ABG pH POC ABG pO2 ABG pO2 ABG O2 Saturation ABG Base Excess ABG Oxyhemoglobin ABG Chloride ABG Glucose Oxyhemoglobin Carboxyhemoglobin Sodium Potassium Chloride Carbon Dioxide BUN Creatinine Glucose POC Glucose Hemoglobin A1c 9.5 H Calcium Magnesium Ferritin 1230.0 H Lactate Dehydrogenase Troponin T 0.031 H D C-Reactive Protein Total Protein Albumin Triglycerides HDL Cholesterol Arterial Blood Glucose Coronavirus (PCR) 06/08/21 06/08/21 06/08/21 03:44 03:44 08:21 WBC 12.9 H RBC Hgb Hct RDW Lymph % (Auto) Lymph # (Auto) Seg Neutrophils % Seg Neuts % (Manual) 95.0 H Lymphocytes % (Manual) 3.0 L Nucleated RBC % Seg Neutrophils # Seg Neutrophils # Man 12.3 H Lymphocytes # (Manual) 0.4 L D-Dimer ABG pH POC ABG pO2 ABG pO2 ABG O2 Saturation ABG Base Excess ABG Oxyhemoglobin ABG Chloride ABG Glucose Oxyhemoglobin Carboxyhemoglobin Sodium Potassium Chloride Carbon Dioxide 20 L D BUN 68 H Creatinine 4.7 H Glucose 218 H POC Glucose 273 H Hemoglobin A1c Calcium Magnesium Ferritin Lactate Dehydrogenase Troponin T C-Reactive Protein Total Protein Albumin 3.4 L Triglycerides HDL Cholesterol Arterial Blood Glucose Coronavirus (PCR) 06/08/21 06/08/21 06/08/21 08:30 11:00 17:29 WBC RBC Hgb Hct RDW Lymph % (Auto) Lymph # (Auto) Seg Neutrophils % Seg Neuts % (Manual) Lymphocytes % (Manual) Nucleated RBC % Seg Neutrophils # Seg Neutrophils # Man Lymphocytes # (Manual) D-Dimer ABG pH POC ABG pO2 ABG pO2 ABG O2 Saturation ABG Base Excess ABG Oxyhemoglobin ABG Chloride ABG Glucose Oxyhemoglobin Carboxyhemoglobin Sodium Potassium Chloride Carbon Dioxide BUN Creatinine Glucose POC Glucose 239 H 220 H Hemoglobin A1c Calcium Magnesium Ferritin Lactate Dehydrogenase Troponin T C-Reactive Protein Total Protein Albumin Triglycerides HDL Cholesterol Arterial Blood Glucose Coronavirus (PCR) Positive A 06/08/21 06/09/21 06/09/21 21:09 08:07 08:42 WBC 14.7 H RBC 5.28 H Hgb 14.9 H Hct 45.0 H D RDW Lymph % (Auto) 4.9 L Lymph # (Auto) 0.7 L Seg Neutrophils % 90.0 H Seg Neuts % (Manual) Lymphocytes % (Manual) Nucleated RBC % Seg Neutrophils # 13.2 H Seg Neutrophils # Man Lymphocytes # (Manual) D-Dimer ABG pH POC ABG pO2 ABG pO2 ABG O2 Saturation ABG Base Excess ABG Oxyhemoglobin ABG Chloride ABG Glucose Oxyhemoglobin Carboxyhemoglobin Sodium Potassium Chloride Carbon Dioxide BUN Creatinine Glucose POC Glucose 242 H 230 H Hemoglobin A1c Calcium Magnesium Ferritin Lactate Dehydrogenase Troponin T C-Reactive Protein Total Protein Albumin Triglycerides HDL Cholesterol Arterial Blood Glucose Coronavirus (PCR) 06/09/21 06/09/21 06/09/21 08:42 12:05 12:19 WBC RBC Hgb Hct RDW Lymph % (Auto) Lymph # (Auto) Seg Neutrophils % Seg Neuts % (Manual) Lymphocytes % (Manual) Nucleated RBC % Seg Neutrophils # Seg Neutrophils # Man Lymphocytes # (Manual) D-Dimer ABG pH POC ABG pO2 71.4 L ABG pO2 ABG O2 Saturation ABG Base Excess ABG Oxyhemoglobin 92.9 L ABG Chloride 109.0 H ABG Glucose 287 H Oxyhemoglobin Carboxyhemoglobin 0.4 L Sodium Potassium Chloride Carbon Dioxide 17 L BUN 74 H Creatinine 3.7 H Glucose 259 H POC Glucose 274 H Hemoglobin A1c Calcium 8.3 L Magnesium Ferritin Lactate Dehydrogenase Troponin T C-Reactive Protein Total Protein Albumin Triglycerides HDL Cholesterol Arterial Blood Glucose 287 H Coronavirus (PCR) 06/09/21 06/09/21 06/10/21 16:59 21:06 08:25 WBC RBC Hgb Hct RDW Lymph % (Auto) Lymph # (Auto) Seg Neutrophils % Seg Neuts % (Manual) Lymphocytes % (Manual) Nucleated RBC % Seg Neutrophils # Seg Neutrophils # Man Lymphocytes # (Manual) D-Dimer ABG pH POC ABG pO2 ABG pO2 ABG O2 Saturation ABG Base Excess ABG Oxyhemoglobin ABG Chloride ABG Glucose Oxyhemoglobin Carboxyhemoglobin Sodium Potassium Chloride Carbon Dioxide BUN Creatinine Glucose POC Glucose 268 H 263 H 280 H Hemoglobin A1c Calcium Magnesium Ferritin Lactate Dehydrogenase Troponin T C-Reactive Protein Total Protein Albumin Triglycerides HDL Cholesterol Arterial Blood Glucose Coronavirus (PCR) 06/10/21 06/10/21 06/10/21 12:07 15:38 21:04 WBC RBC Hgb Hct RDW Lymph % (Auto) Lymph # (Auto) Seg Neutrophils % Seg Neuts % (Manual) Lymphocytes % (Manual) Nucleated RBC % Seg Neutrophils # Seg Neutrophils # Man Lymphocytes # (Manual) D-Dimer ABG pH POC ABG pO2 ABG pO2 ABG O2 Saturation ABG Base Excess ABG Oxyhemoglobin ABG Chloride ABG Glucose Oxyhemoglobin Carboxyhemoglobin Sodium Potassium Chloride Carbon Dioxide BUN Creatinine Glucose POC Glucose 247 H 269 H 195 H Hemoglobin A1c Calcium Magnesium Ferritin Lactate Dehydrogenase Troponin T C-Reactive Protein Total Protein Albumin Triglycerides HDL Cholesterol Arterial Blood Glucose Coronavirus (PCR) 06/10/21 06/10/21 06/10/21 23:14 23:14 23:14 WBC RBC Hgb Hct RDW 15.3 H Lymph % (Auto) Lymph # (Auto) Seg Neutrophils % Seg Neuts % (Manual) 93.0 H Lymphocytes % (Manual) 2.0 L Nucleated RBC % 3.0 H Seg Neutrophils # Seg Neutrophils # Man 10.2 H Lymphocytes # (Manual) 0.2 L D-Dimer ABG pH POC ABG pO2 ABG pO2 ABG O2 Saturation ABG Base Excess ABG Oxyhemoglobin ABG Chloride ABG Glucose Oxyhemoglobin Carboxyhemoglobin Sodium 148 H D Potassium Chloride 111.7 H Carbon Dioxide 20 L BUN 70 H Creatinine 3.2 H Glucose 186 H POC Glucose Hemoglobin A1c Calcium Magnesium 2.50 H Ferritin Lactate Dehydrogenase 606 H Troponin T C-Reactive Protein Total Protein Albumin Triglycerides HDL Cholesterol Arterial Blood Glucose Coronavirus (PCR) 06/10/21 06/10/21 06/11/21 23:14 23:14 07:34 WBC RBC Hgb Hct RDW Lymph % (Auto) Lymph # (Auto) Seg Neutrophils % Seg Neuts % (Manual) Lymphocytes % (Manual) Nucleated RBC % Seg Neutrophils # Seg Neutrophils # Man Lymphocytes # (Manual) D-Dimer > 41801 H ABG pH POC ABG pO2 ABG pO2 ABG O2 Saturation ABG Base Excess ABG Oxyhemoglobin ABG Chloride ABG Glucose Oxyhemoglobin Carboxyhemoglobin Sodium Potassium Chloride Carbon Dioxide BUN Creatinine Glucose POC Glucose 169 H Hemoglobin A1c Calcium Magnesium Ferritin 1319.0 H Lactate Dehydrogenase Troponin T C-Reactive Protein Total Protein Albumin Triglycerides HDL Cholesterol Arterial Blood Glucose Coronavirus (PCR) 06/11/21 06/11/21 06/11/21 10:57 10:57 10:58 WBC 11.3 H RBC Hgb Hct RDW 15.3 H Lymph % (Auto) Lymph # (Auto) Seg Neutrophils % Seg Neuts % (Manual) 88.0 H Lymphocytes % (Manual) 6.0 L Nucleated RBC % Seg Neutrophils # Seg Neutrophils # Man 9.9 H Lymphocytes # (Manual) 0.7 L D-Dimer > 50717 H ABG pH POC ABG pO2 ABG pO2 ABG O2 Saturation ABG Base Excess ABG Oxyhemoglobin ABG Chloride ABG Glucose Oxyhemoglobin Carboxyhemoglobin Sodium Potassium Chloride Carbon Dioxide BUN Creatinine Glucose POC Glucose Hemoglobin A1c Calcium Magnesium Ferritin 1300.0 H Lactate Dehydrogenase Troponin T C-Reactive Protein Total Protein Albumin Triglycerides HDL Cholesterol Arterial Blood Glucose Coronavirus (PCR) 06/11/21 06/11/21 06/11/21 10:58 11:49 15:49 WBC RBC Hgb Hct RDW Lymph % (Auto) Lymph # (Auto) Seg Neutrophils % Seg Neuts % (Manual) Lymphocytes % (Manual) Nucleated RBC % Seg Neutrophils # Seg Neutrophils # Man Lymphocytes # (Manual) D-Dimer ABG pH POC ABG pO2 ABG pO2 ABG O2 Saturation ABG Base Excess ABG Oxyhemoglobin ABG Chloride ABG Glucose Oxyhemoglobin Carboxyhemoglobin Sodium 150 H Potassium 3.4 L Chloride 114.8 H Carbon Dioxide 21 L BUN 65 H Creatinine 2.9 H Glucose 180 H POC Glucose 191 H 185 H Hemoglobin A1c Calcium Magnesium 2.50 H Ferritin Lactate Dehydrogenase Troponin T C-Reactive Protein 1.90 H Total Protein Albumin Triglycerides HDL Cholesterol Arterial Blood Glucose Coronavirus (PCR) 06/11/21 06/12/21 06/12/21 21:16 04:22 07:41 WBC RBC Hgb Hct RDW Lymph % (Auto) Lymph # (Auto) Seg Neutrophils % Seg Neuts % (Manual) Lymphocytes % (Manual) Nucleated RBC % Seg Neutrophils # Seg Neutrophils # Man Lymphocytes # (Manual) D-Dimer ABG pH 7.318 L POC ABG pO2 ABG pO2 51.5 L ABG O2 Saturation 86.9 L ABG Base Excess -5.6 L ABG Oxyhemoglobin ABG Chloride ABG Glucose Oxyhemoglobin 85.5 L Carboxyhemoglobin Sodium Potassium Chloride Carbon Dioxide BUN Creatinine Glucose POC Glucose 200 H 165 H Hemoglobin A1c Calcium Magnesium Ferritin Lactate Dehydrogenase Troponin T C-Reactive Protein Total Protein Albumin Triglycerides HDL Cholesterol Arterial Blood Glucose Coronavirus (PCR) 06/12/21 06/12/21 06/12/21 08:31 08:31 08:31 WBC 12.4 H RBC Hgb Hct RDW 15.3 H Lymph % (Auto) 8.5 L Lymph # (Auto) 1.1 L Seg Neutrophils % 88.1 H Seg Neuts % (Manual) Lymphocytes % (Manual) Nucleated RBC % Seg Neutrophils # 10.9 H Seg Neutrophils # Man Lymphocytes # (Manual) D-Dimer ABG pH POC ABG pO2 ABG pO2 ABG O2 Saturation ABG Base Excess ABG Oxyhemoglobin ABG Chloride ABG Glucose Oxyhemoglobin Carboxyhemoglobin Sodium 151 H Potassium Chloride 117.3 H Carbon Dioxide 21 L BUN 61 H Creatinine 2.5 H Glucose 165 H POC Glucose Hemoglobin A1c Calcium 8.3 L Magnesium 2.50 H Ferritin Lactate Dehydrogenase Troponin T C-Reactive Protein Total Protein Albumin Triglycerides HDL Cholesterol Arterial Blood Glucose Coronavirus (PCR) 06/12/21 06/12/21 06/12/21 10:32 15:47 21:50 WBC RBC Hgb Hct RDW Lymph % (Auto) Lymph # (Auto) Seg Neutrophils % Seg Neuts % (Manual) Lymphocytes % (Manual) Nucleated RBC % Seg Neutrophils # Seg Neutrophils # Man Lymphocytes # (Manual) D-Dimer ABG pH POC ABG pO2 ABG pO2 ABG O2 Saturation ABG Base Excess ABG Oxyhemoglobin ABG Chloride ABG Glucose Oxyhemoglobin Carboxyhemoglobin Sodium Potassium Chloride Carbon Dioxide BUN Creatinine Glucose POC Glucose 156 H 176 H 165 H Hemoglobin A1c Calcium Magnesium Ferritin Lactate Dehydrogenase Troponin T C-Reactive Protein Total Protein Albumin Triglycerides HDL Cholesterol Arterial Blood Glucose Coronavirus (PCR) 06/13/21 06/13/21 06/13/21 07:42 07:42 08:10 WBC 14.1 H RBC Hgb Hct RDW 15.3 H Lymph % (Auto) Lymph # (Auto) Seg Neutrophils % Seg Neuts % (Manual) 87.0 H Lymphocytes % (Manual) 7.0 L Nucleated RBC % 3.0 H Seg Neutrophils # Seg Neutrophils # Man 12.3 H Lymphocytes # (Manual) 1.0 L D-Dimer ABG pH POC ABG pO2 ABG pO2 ABG O2 Saturation ABG Base Excess ABG Oxyhemoglobin ABG Chloride ABG Glucose Oxyhemoglobin Carboxyhemoglobin Sodium 151 H Potassium 3.5 L Chloride 116.0 H Carbon Dioxide BUN 61 H Creatinine 2.3 H Glucose 135 H POC Glucose 118 H Hemoglobin A1c Calcium Magnesium 2.50 H Ferritin Lactate Dehydrogenase Troponin T C-Reactive Protein Total Protein Albumin Triglycerides HDL Cholesterol Arterial Blood Glucose Coronavirus (PCR) 06/13/21 06/13/21 06/13/21 11:10 18:15 21:54 WBC RBC Hgb Hct RDW Lymph % (Auto) Lymph # (Auto) Seg Neutrophils % Seg Neuts % (Manual) Lymphocytes % (Manual) Nucleated RBC % Seg Neutrophils # Seg Neutrophils # Man Lymphocytes # (Manual) D-Dimer ABG pH POC ABG pO2 ABG pO2 ABG O2 Saturation ABG Base Excess ABG Oxyhemoglobin ABG Chloride ABG Glucose Oxyhemoglobin Carboxyhemoglobin Sodium Potassium Chloride Carbon Dioxide BUN Creatinine Glucose POC Glucose 139 H 179 H 193 H Hemoglobin A1c Calcium Magnesium Ferritin Lactate Dehydrogenase Troponin T C-Reactive Protein Total Protein Albumin Triglycerides HDL Cholesterol Arterial Blood Glucose Coronavirus (PCR) 06/13/21 06/14/21 06/14/21 23:27 04:42 04:42 WBC 12.8 H RBC Hgb Hct RDW 15.3 H Lymph % (Auto) Lymph # (Auto) Seg Neutrophils % Seg Neuts % (Manual) 92.0 H Lymphocytes % (Manual) 1.0 L Nucleated RBC % 2.0 H Seg Neutrophils # Seg Neutrophils # Man 11.8 H Lymphocytes # (Manual) 0.1 L D-Dimer ABG pH POC ABG pO2 ABG pO2 ABG O2 Saturation ABG Base Excess ABG Oxyhemoglobin ABG Chloride ABG Glucose Oxyhemoglobin Carboxyhemoglobin Sodium 152 H 152 H Potassium Chloride 116.3 H 115.3 H Carbon Dioxide 21 L BUN 67 H 68 H Creatinine 2.5 H 2.5 H Glucose 212 H 188 H POC Glucose Hemoglobin A1c Calcium Magnesium Ferritin Lactate Dehydrogenase Troponin T C-Reactive Protein Total Protein Albumin Triglycerides HDL Cholesterol Arterial Blood Glucose Coronavirus (PCR) 06/14/21 06/14/21 06/14/21 04:42 07:33 10:57 WBC RBC Hgb Hct RDW Lymph % (Auto) Lymph # (Auto) Seg Neutrophils % Seg Neuts % (Manual) Lymphocytes % (Manual) Nucleated RBC % Seg Neutrophils # Seg Neutrophils # Man Lymphocytes # (Manual) D-Dimer ABG pH POC ABG pO2 ABG pO2 ABG O2 Saturation ABG Base Excess ABG Oxyhemoglobin ABG Chloride ABG Glucose Oxyhemoglobin Carboxyhemoglobin Sodium Potassium Chloride Carbon Dioxide BUN Creatinine Glucose POC Glucose 173 H 195 H Hemoglobin A1c Calcium Magnesium 2.40 H Ferritin Lactate Dehydrogenase Troponin T C-Reactive Protein Total Protein Albumin Triglycerides HDL Cholesterol Arterial Blood Glucose Coronavirus (PCR) 06/14/21 06/14/21 06/15/21 15:53 23:40 07:38 WBC 14.3 H RBC Hgb Hct RDW Lymph % (Auto) Lymph # (Auto) Seg Neutrophils % Seg Neuts % (Manual) 95.0 H Lymphocytes % (Manual) 1.0 L Nucleated RBC % Seg Neutrophils # Seg Neutrophils # Man 13.6 H Lymphocytes # (Manual) 0.1 L D-Dimer ABG pH POC ABG pO2 ABG pO2 ABG O2 Saturation ABG Base Excess ABG Oxyhemoglobin ABG Chloride ABG Glucose Oxyhemoglobin Carboxyhemoglobin Sodium Potassium Chloride Carbon Dioxide BUN Creatinine Glucose POC Glucose 226 H 235 H Hemoglobin A1c Calcium Magnesium Ferritin Lactate Dehydrogenase Troponin T C-Reactive Protein Total Protein Albumin Triglycerides HDL Cholesterol Arterial Blood Glucose Coronavirus (PCR) 06/15/21 06/15/21 06/15/21 07:38 07:38 07:38 WBC RBC Hgb Hct RDW Lymph % (Auto) Lymph # (Auto) Seg Neutrophils % Seg Neuts % (Manual) Lymphocytes % (Manual) Nucleated RBC % Seg Neutrophils # Seg Neutrophils # Man Lymphocytes # (Manual) D-Dimer > 49399 H ABG pH POC ABG pO2 ABG pO2 ABG O2 Saturation ABG Base Excess ABG Oxyhemoglobin ABG Chloride ABG Glucose Oxyhemoglobin Carboxyhemoglobin Sodium 153 H Potassium 3.5 L Chloride 115.9 H Carbon Dioxide BUN 55 H Creatinine 2.1 H Glucose 213 H POC Glucose Hemoglobin A1c Calcium Magnesium Ferritin 1246.0 H Lactate Dehydrogenase Troponin T C-Reactive Protein Total Protein Albumin Triglycerides HDL Cholesterol Arterial Blood Glucose Coronavirus (PCR) 06/15/21 06/15/21 06/15/21 09:21 11:46 17:32 WBC RBC Hgb Hct RDW Lymph % (Auto) Lymph # (Auto) Seg Neutrophils % Seg Neuts % (Manual) Lymphocytes % (Manual) Nucleated RBC % Seg Neutrophils # Seg Neutrophils # Man Lymphocytes # (Manual) D-Dimer ABG pH POC ABG pO2 ABG pO2 ABG O2 Saturation ABG Base Excess ABG Oxyhemoglobin ABG Chloride ABG Glucose Oxyhemoglobin Carboxyhemoglobin Sodium Potassium Chloride Carbon Dioxide BUN Creatinine Glucose POC Glucose 202 H 233 H 179 H Hemoglobin A1c Calcium Magnesium Ferritin Lactate Dehydrogenase Troponin T C-Reactive Protein Total Protein Albumin Triglycerides HDL Cholesterol Arterial Blood Glucose Coronavirus (PCR)
[2021-06-16] MEDS: hydrALAZINE 25 MG TAB PO SCH ×4 (06:00→22:49)
[2021-06-16] MEDS: LEVOTHYROXINE 75 MCG TAB PO SCH (06:00)
[2021-06-16] MEDS: LEVOTHYROXINE 100 MCG TAB PO SCH (06:00)
[2021-06-16] MEDS: ONDANSETRON 4 MG ODT TAB PO SCH ×4 (06:00→22:51)
[2021-06-16 06:37] LABS: Calcium 9.2 mg/dL (8.4-10.2)
[2021-06-16] MEDS: INSULIN REGULAR, HUMAN 100 UNITS/1 ML SUB-Q SCH ×5 (07:30→22:51)
[2021-06-16 07:38] LABS: Albumin 2.6 g/dL (3.8-4.8); Gamma Globulin 1.3 g/dL (0.8-1.7)
--- NOTE | 2021-06-16 07:53 | Progress Note ---
Assessment and Plan Assessment and plan: #Severe COVID-19 breakthrough infection #COVID-19 pneumonia #Severe ARDS -patient vaccinated -continue isolation precautions -inflammatory markers q3d -currently on high flow 40 L / 60% FiO2 -continue steroids, vitamin C, zinc and vitamin D #Acute hypoxic respiratory failure -continue high flow, wean as tolerated -Pulmonary following, recs appreciated #Acute encephalopathy -stable -Waxing and waning alertness -Delirium precautions -continue seroquel nightly -will consider CTH versus neurology consult if progresses #Hypernatremia -sodium 154 -likely secondary to poor p.o. intake -D5W increased to 150cc/hr -continue 400 cc every 4 hour free water flushes by mouth #Acute versus chronic renal failure -unknown baseline, SCr 2.0 today -avoid nephrotoxins -Nephrology managing #Insulin-dependent type 2 diabetes -Humulin increased to 32 units twice daily plus sliding scale -goal glucose 140-180 #Elevated troponin -resolved, likely type II #Hypertension -Not at goal -continue BB and hydralazine at current doses #Hypothyroidism -continue home levothyroxine #Protein calorie malnutrition -Nutrition consult #History of DVT -continue Eliquis #Discharge planning -pending improved respiratory status -Physical therapy consult to evaluate and treat once patient improves Disposition Plan: Continue medical management Total Time Spent with Patient (Minutes): 20 minutes History Interval history: No acute events overnight. Patient more alert and oriented this morning. Denies chest pain, shortness of breath or discomfort. Hospitalist Physical - Physical exam Narrative exam: GENERAL: Obese. Lying in bed. HEENT: High flow at 40 L/min. CHEST/LUNGS: Coarse breath sounds bilaterally. HEART/CARDIOVASCULAR: Regular rate rhythm. No murmur, rubs or gallops appreciated. ABDOMEN: +BS. NT/ND. EXTREMITIES: No cyanosis, clubbing or edema. - Constitutional Vitals: Temp Pulse Resp BP Pulse Ox 97.9 F 102 H 20 139/83 82 L 06/16/21 06:32 06/16/21 06:32 06/16/21 06:32 06/16/21 06:32 06/16/21 06:32 General appearance: Present: no acute distress HEART Score - HEART Score EKG: Non-specific Age: 45-65 Risk factors: 1-2 risk factors Troponin: Troponin T 0.021 ng/mL (0.00-0.029) 06/08/21 13:49 - Critical Actions Critical Actions: 0-3 pts:0.9-1.7%risk of adverse cardiac event.Candidate for discharge Results - Labs CBC & Chem 7: 06/15/21 07:38 06/16/21 05:44 Labs: Laboratory Last Values WBC 14.3 K/mm3 (4.5-11.0) H 06/15/21 07:38 RBC 4.64 M/mm3 (3.65-5.03) 06/15/21 07:38 Hgb 13.0 gm/dl (10.1-14.3) 06/15/21 07:38 Hct 39.8 % (30.3-42.9) 06/15/21 07:38 MCV 86 fl (79-97) 06/15/21 07:38 MCH 28 pg (28-32) 06/15/21 07:38 MCHC 33 % (30-34) 06/15/21 07:38 RDW 15.1 % (13.2-15.2) 06/15/21 07:38 Plt Count 140 K/mm3 (140-440) 06/15/21 07:38 Lymph % (Auto) 8.5 % (13.4-35.0) L 06/12/21 08:31 [place] % (Auto) 2.5 % (0.0-7.3) 06/12/21 08:31 Eos % (Auto) 0.8 % (0.0-4.3) 06/12/21 08:31 Baso % (Auto) 0.1 % (0.0-1.8) 06/12/21 08:31 Lymph # (Auto) 1.1 K/mm3 (1.2-5.4) L 06/12/21 08:31 [place] # (Auto) 0.3 K/mm3 (0.0-0.8) 06/12/21 08:31 Eos # (Auto) 0.1 K/mm3 (0.0-0.4) 06/12/21 08:31 Baso # (Auto) 0.0 K/mm3 (0.0-0.1) 06/12/21 08:31 Add Manual Diff Complete 06/15/21 07:38 Total Counted 100 06/15/21 07:38 Seg Neutrophils % [employer] 06/15/21 07:38 Seg Neuts % (Manual) 95.0 % (40.0-70.0) H 06/15/21 07:38 Band Neutrophils % 4.0 % 06/15/21 07:38 Lymphocytes % (Manual) 1.0 % (13.4-35.0) L 06/15/21 07:38 Monocytes % (Manual) 3.0 % (0.0-7.3) 06/14/21 04:42 Eosinophils % (Manual) 1.0 % (0.0-4.3) 06/13/21 07:42 Metamyelocytes % 2.0 % 06/10/21 23:14 Myelocytes % 2.0 % 06/14/21 04:42 Nucleated RBC % Not Reportable 06/15/21 07:38 Seg Neutrophils # 10.9 K/mm3 (1.8-7.7) H 06/12/21 08:31 Seg Neutrophils # Man 13.6 K/mm3 (1.8-7.7) H 06/15/21 07:38 Band Neutrophils # 0.6 K/mm3 06/15/21 07:38 Lymphocytes # (Manual) 0.1 K/mm3 (1.2-5.4) L 06/15/21 07:38 Abs React Lymphs (Man) 0.0 K/mm3 06/15/21 07:38 Monocytes # (Manual) 0.0 K/mm3 (0.0-0.8) 06/15/21 07:38 Eosinophils # (Manual) 0.0 K/mm3 (0.0-0.4) 06/15/21 07:38 Basophils # (Manual) 0.0 K/mm3 (0.0-0.1) 06/15/21 07:38 Metamyelocytes # 0.0 K/mm3 06/15/21 07:38 Myelocytes # 0.0 K/mm3 06/15/21 07:38 Promyelocytes # 0.0 K/mm3 06/15/21 07:38 Blast Cells # 0.0 K/mm3 06/15/21 07:38 WBC Morphology Not Reportable 06/15/21 07:38 Hypersegmented Neuts Not Reportable 06/15/21 07:38 Hyposegmented Neuts Not Reportable 06/15/21 07:38 Hypogranular Neuts Not Reportable 06/15/21 07:38 Smudge Cells Not Reportable 06/15/21 07:38 Toxic Granulation Not Reportable 06/15/21 07:38 Toxic Vacuolation Not Reportable 06/15/21 07:38 Dohle Bodies Not Reportable 06/15/21 07:38 Pelger-Huet Anomaly Not Reportable 06/15/21 07:38 Nba Rods Not Reportable 06/15/21 07:38 Platelet Estimate Consistent w auto 06/15/21 07:38 Clumped Platelets Not Reportable 06/15/21 07:38 Plt Clumps, EDTA Not Reportable 06/15/21 07:38 Large Platelets Not Reportable 06/15/21 07:38 Giant Platelets Not Reportable 06/15/21 07:38 Platelet Satelliting Not Reportable 06/15/21 07:38 Plt Morphology Comment Not Reportable 06/15/21 07:38 RBC Morphology Not Reportable 06/15/21 07:38 Dimorphic RBCs Not Reportable 06/15/21 07:38 Polychromasia Not Reportable 06/15/21 07:38 Hypochromasia Not Reportable 06/15/21 07:38 Poikilocytosis Not Reportable 06/15/21 07:38 Anisocytosis Not Reportable 06/15/21 07:38 Microcytosis Not Reportable 06/15/21 07:38 Macrocytosis Not Reportable 06/15/21 07:38 Spherocytes Not Reportable 06/15/21 07:38 Pappenheimer Bodies Not Reportable 06/15/21 07:38 Sickle Cells Not Reportable 06/15/21 07:38 Target Cells Not Reportable 06/15/21 07:38 Tear Drop Cells 1+ 06/15/21 07:38 Ovalocytes 1+ 06/15/21 07:38 Helmet Cells Not Reportable 06/15/21 07:38 [place] Bodies Not Reportable 06/15/21 07:38 [place] Rings Not Reportable 06/15/21 07:38 [place] Cells Not Reportable 06/15/21 07:38 Bite Cells Not Reportable 06/15/21 07:38 Crenated Cell Not Reportable 06/15/21 07:38 Elliptocytes Not Reportable 06/15/21 07:38 Acanthocytes (Spur) Not Reportable 06/15/21 07:38 Rouleaux Not Reportable 06/15/21 07:38 Hemoglobin C Crystals Not Reportable 06/15/21 07:38 Schistocytes Not Reportable 06/15/21 07:38 Malaria parasites Not Reportable 06/15/21 07:38 Luis Bodies Not Reportable 06/15/21 07:38 Hem Pathologist Commnt No 06/15/21 07:38 D-Dimer > 03487 ng/mlDDU (0-234) H 06/15/21 07:38 ABG pH 7.318 pH Units (7.350-7.450) L 06/12/21 04:22 POC ABG pCO2 34.2 mmHg (32.0-48.0) 06/09/21 12:19 ABG pCO2 40.1 mm Hg 06/12/21 04:22 POC ABG pO2 71.4 mmHg (83-108) L 06/09/21 12:19 ABG pO2 51.5 mm Hg (80.0-90.0) L 06/12/21 04:22 POC ABG HCO3 20.5 06/09/21 12:19 ABG HCO3 20.1 mmol/L (20.0-26.0) 06/12/21 04:22 ABG O2 Saturation 86.9 % (95.0-99.0) L 06/12/21 04:22 ABG O2 Content 16.2 (0.0-44) 06/12/21 04:22 POC ABG Base Excess -3.6 06/09/21 12:19 ABG Base Excess -5.6 mmol/L (-2.0-3.0) L 06/12/21 04:22 ABG Hemoglobin 13.5 gm/dl (12.0-16.0) 06/12/21 04:22 ABG Oxyhemoglobin 92.9 (94-98) L 06/09/21 12:19 ABG Carboxyhemoglobin 1.1 % (0.0-5.0) 06/12/21 04:22 ABG Methemoglobin 0.5 % (0.0-1.5) 06/12/21 04:22 ABG Sodium 143.5 mmol/L (136.0-145.0) 06/09/21 12:19 ABG Potassium 3.6 mmol/L (3.40-4.50) 06/09/21 12:19 ABG Chloride 109.0 mmol/L (98-107) H 06/09/21 12:19 ABG Glucose 287 mg/dL (65-95) H 06/09/21 12:19 Oxyhemoglobin 85.5 % (95.0-99.0) L 06/12/21 04:22 Carboxyhemoglobin 0.4 (0.5-1.5) L 06/09/21 12:19 FiO2 100 % 06/12/21 04:22 FiO2 % 75.0 06/09/21 12:19 Sodium 154 mmol/L (137-145) H 06/16/21 05:44 Potassium 3.7 mmol/L (3.6-5.0) 06/16/21 05:44 Chloride 117.2 mmol/L (98-107) H 06/16/21 05:44 Carbon Dioxide 27 mmol/L (22-30) 06/16/21 05:44 Anion Gap 14 mmol/L 06/16/21 05:44 BUN 54 mg/dL (7-17) H 06/16/21 05:44 Creatinine 2.0 mg/dL (0.6-1.2) H 06/16/21 05:44 Estimated GFR 31 ml/min 06/16/21 05:44 BUN/Creatinine Ratio 27 % 06/16/21 05:44 Glucose 120 mg/dL (65-100) H 06/16/21 05:44 POC Glucose 109 mg/dL (70-105) H 06/16/21 07:48 Hemoglobin A1c 9.5 % (4-6) H 06/07/21 19:11 Calcium 9.2 mg/dL (8.4-10.2) 06/16/21 05:44 Phosphorus 3.30 mg/dL (2.5-4.5) 06/14/21 04:42 Magnesium 2.40 mg/dL (1.7-2.3) H 06/14/21 04:42 Ferritin 1246.0 ng/mL (10.0-200.0) H 06/15/21 07:38 Total Bilirubin 0.30 mg/dL (0.1-1.2) 06/08/21 03:44 AST 29 units/L (5-40) 06/08/21 03:44 ALT 19 units/L (7-56) 06/08/21 03:44 Alkaline Phosphatase 58 units/L (35-129) 06/08/21 03:44 Lactate Dehydrogenase 606 units/L (91-180) H 06/10/21 23:14 Troponin T 0.021 ng/mL (0.00-0.029) 06/08/21 13:49 C-Reactive Protein 1.90 mg/dL (0.00-1.30) H 06/11/21 10:58 Serum Total Protein 7.0 g/dL (6.1-8.1) 06/10/21 23:14 Total Protein 7.9 g/dL (6.3-8.2) 06/08/21 03:44 Albumin 2.6 g/dL (3.8-4.8) L 06/10/21 23:14 Albumin/Globulin Ratio 0.8 % 06/08/21 03:44 Dbqpf-5-Agokbuvgo 0.5 g/dL (0.2-0.3) H 06/10/21 23:14 Vtjzu-9-Cseanqwku 1.7 g/dL (0.5-0.9) H 06/10/21 23:14 Beta Globulins 0.6 g/dL (0.2-0.5) H 06/10/21 23:14 Gamma Globulins 1.3 g/dL (0.8-1.7) 06/10/21 23:14 Abnorm Protein Band 1 see below 06/10/21 23:14 PEP Interpretation see below H 06/10/21 23:14 Triglycerides 209 mg/dL (2-149) H 06/07/21 19:11 Cholesterol 165 mg/dL (50-199) 06/07/21 19:11 LDL Cholesterol Direct 79 mg/dL (50-130) 06/07/21 19:11 HDL Cholesterol 35 mg/dL (40-59) L 06/07/21 19:11 Cholesterol/HDL Ratio 4.71 % 06/07/21 19:11 Procalcitonin 0.91 ng/mL (<0.15) 06/07/21 19:11 Arterial Blood Glucose 287 mg/dL (65-95) H 06/09/21 12:19 Coronavirus (PCR) Positive (Negative) A 06/08/21 08:30 Blood Type B POSITIVE 06/07/21 22:34 Antibody Screen Negative 06/07/21 22:34 Roland/IV: Voiding Method External Female Catheter Active Medications - Current Medications Current Medications: Generic Name Dose Route Start Last Admin Trade Name Freq PRN Reason Stop Dose Admin Acetaminophen 650 mg 06/07/21 21:41 Acetaminophen 325 Mg Tab PO Q4H PRN Pain MILD(1-3)/Fever >100.5/MARTÍNEZ Albuterol 2 puff 06/07/21 23:00 Albuterol 8.5 Gm Mdi Inhalation IH Q4HRT PRN Shortness Of Breath Alprazolam 0.5 mg 06/15/21 04:58 06/15/21 05:33 Alprazolam 0.5 Mg Tab PO 0.5 mg Q8H PRN Administration Anxiety Apixaban 5 mg 06/08/21 10:00 06/15/21 09:19 Apixaban 5 Mg Tab PO 5 mg BID LEONOR Administration Atorvastatin Calcium 10 mg 06/08/21 10:00 06/15/21 09:23 Atorvastatin 10 Mg Tab PO 10 mg DAILY LEONOR Administration Carvedilol 6.25 mg 06/15/21 22:00 Carvedilol 6.25 Mg Tab PO BID LEONOR Dexamethasone 8 mg 06/08/21 10:00 06/15/21 09:16 Dexamethasone 4 Mg/Ml Vial IV 06/16/21 10:01 8 mg Q24HR LEONOR Administration Dextrose 50 ml 06/08/21 12:04 Dextrose 50% In Water (25gm) 50 Ml Syringe IV Q30MIN PRN Hypoglycemia Protocol Docusate Sodium 100 mg 06/07/21 21:33 Docusate Sodium 100 Mg Cap PO BID PRN Constipation Famotidine 10 mg 06/14/21 22:00 06/15/21 09:18 Famotidine 10 Mg Tab PO 10 mg BID LEONOR Administration Guaifenesin 10 ml 06/09/21 00:15 06/11/21 06:12 Guaifenesin Dm 200/20 Mg Oral Liqd 10 Ml PO 10 ml Q4H PRN Administration Cough Hydralazine HCl 25 mg 06/07/21 22:00 06/15/21 13:16 Hydralazine 25 Mg Tab PO 25 mg Q8HR LEONOR Administration Hydromorphone HCl 0.5 mg 06/07/21 21:41 Hydromorphone 1 Mg/1 Ml Inj IV Q3H PRN Pain , Severe (7-10) Hydromorphone HCl 0.25 mg 06/07/21 22:33 Hydromorphone 1 Mg/1 Ml Inj IV Q4H PRN Pain, Moderate (4-6) Hydrophilic Ointment 1 applic 06/13/21 07:30 Lip Therapy Vaseline TP DIRECT PRN Dry Lips Dextrose 1,000 mls @ 125 mls/hr 06/14/21 10:00 06/14/21 22:22 D5w IV 125 mls/hr DIRECT LEONOR Administration Insulin Human Isoph/Insulin Regular 32 unit 06/15/21 17:00 06/15/21 18:17 Insulin Nph/Regular 70/30 Inj SUB-Q 32 unit BIDDIAB LEONOR Administration Insulin Human Regular 0 units 06/08/21 12:15 06/15/21 18:16 Insulin Regular, Human 100 Units/1 Ml SUB-Q 4 units ACHS LEONOR Administration Protocol Levothyroxine Sodium 75 mcg 06/08/21 06:00 06/15/21 05:29 Levothyroxine 75 Mcg Tab PO 75 mcg QAM@0600 LEONOR Administration Levothyroxine Sodium 200 mcg 06/08/21 06:00 06/15/21 05:29 Levothyroxine 100 Mcg Tab PO 200 mcg DAILY@0600 LEONOR Administration Loratadine/Pseudoephedrine Sulfate 1 each 06/08/21 10:00 06/15/21 09:24 Loratadine/Pseudoephedrine 10-240 Mg Tab 24hr PO Not Given Q24HR LEONOR Ondansetron HCl 4 mg 06/07/21 22:00 06/15/21 13:16 Ondansetron 4 Mg Odt Tab PO 4 mg Q8HR LEONOR Administration Ondansetron HCl 4 mg 06/07/21 21:41 06/10/21 06:24 Ondansetron 4 Mg/2 Ml Inj IV 4 mg Q8H PRN Administration Nausea And Vomiting Oxycodone/Acetaminophen 1 tab 06/07/21 21:41 06/09/21 17:05 Oxycodone /Acetaminophen 5-325mg Tab PO 1 tab Q6H PRN Administration Pain, Moderate (4-6) Quetiapine Fumarate 50 mg 06/15/21 22:00 Quetiapine 25 Mg Tab PO QHS LEONOR Sodium Bicarbonate 650 mg 06/10/21 14:00 06/15/21 13:16 Sodium Bicarbonate 650 Mg Tab PO 650 mg TID LEONOR Administration Sodium Chloride 10 ml 06/07/21 22:00 06/15/21 09:20 Sodium Chloride 0.9% 10 Ml Flush Syringe IV 10 ml BID LEONOR Administration Sodium Chloride 10 ml 06/07/21 21:41 Sodium Chloride 0.9% 10 Ml Flush Syringe IV PRN PRN LINE FLUSH Nutrition/Malnutrition Assess - Dietary Evaluation Nutrition/Malnutrition Findings: Nutrition Notes Start: 06/08/21 10:56 Freq: Status: Active Protocol: Document 06/14/21 14:24 GB (Rec: 06/14/21 14:30 GB [id number]) Nutrition Notes Initial or Follow up Reassessment Current Diagnosis Acute Kidney Injury,Diabetes, Sepsis,Hypertension, Respiratory Failure Other Pertinent Diagnosis COVID-19 PUI, hypothyroid Current Diet consistent CHO/cardiac, pureed texture Labs/Tests 06/14: Na 152, BUN 68, Creatinine 2.5, glucose 188, Mg 2.4 Pertinent Medications Zofran NS at 10 ml/hr Height 5 ft 11 in Weight 164 kg [place] Body Weight (kg) 70.45 BMI 50.4 Weight change and time frame No significant changes reported. Stable. Weight Status Morbidly Obese Subjective/Other Information Per chart nursing staff recorded PO intake of meals as 100%. Supplement beverages glucerna have been d/c'd. Percent of energy/protein needs met: PO intake of meals 100% TID meets 75% or greater of estimated energy needs. Burn Absent Trauma Absent GI Symptoms None Difficulty In Swallowing,Chewing Food Allergy Yes Current % PO Good (75-100%) Minimum of two criteria No #1 Nutrition Diagnosis Predicted suboptimal energy intake Comments: PO intake of meals recorded currently for one day at 25%, independent with meals. 06/14: PO intake of meals recorded as 100% x2days. Etiology ARF As Evidenced by Signs and Symptoms pt on bipap Diagnosis Progress(for reassessment Improved documentation) Is patient on ventilator? No Is Patient Ambulatory and/or Out of Bed No REE-([facility]-confined to bed) 2771.148 Kcal/Kg value to use for calculation 12 Approximate Energy Requirements Using 1968 kcal/Kg Calculation Used for Recommendations Kcal/kg Additional Notes Protein: (0.8-1g/kg AdjBW) 94- 117g/day Fluid: 1 ml/kcal Nutrition Intervention Change Diet Order: Continue Add Supplement/Snack (indicate name/kcal n/a - history of pt not liking /protein ) nutrition supplement beverages Goal #1 PO intake of meals to improve to 50% or greater TID daily during LOS 06/14: met, PO intake recorded as 100%, continues Goal #2 Weight to maintain within =/-3 % current weight during LOS 06/14: met, continues Follow-Up By: 06/21/21 Additional Comments Nursing continue to record Meal intake.
[2021-06-16] MEDS: QUEtiapine 25 MG TAB PO SCH ×2 (08:00→22:51)
[2021-06-16] MEDS: SODIUM BICARBONATE 650 MG TAB PO SCH ×4 (08:00→22:49)
[2021-06-16] MEDS: INSULIN NPH/REGULAR 70/30 INJ SUB-Q SCH ×2 (08:00→16:47)
[2021-06-16] MEDS: FAMOTIDINE 10 MG TAB PO SCH ×3 (08:01→22:50)
[2021-06-16] MEDS: carvediloL 6.25 MG TAB PO SCH ×3 (08:04→22:50)
[2021-06-16] MEDS: APIXABAN 5 MG TAB PO SCH ×3 (08:05→22:50)
[2021-06-16] MEDS: LORATADINE/PSEUDOEPHEDRINE 10-240 MG TAB 24HR PO SCH (09:11)
[2021-06-16] MEDS: dexAMETHasone 4 MG/ML VIAL IV SCH (09:13)
--- NOTE | 2021-06-16 11:20 | Progress Note ---
Assessment and Plan COVID-19 breakthrough infection COVID-19 pneumonia Acute renal failure versus acute on chronic renal failure Acute hypoxic respiratory failure Insulin-dependent type 2 diabetes- uncontrolled Elevated troponin Hypertension-controlled Hypothyroidism Protein calorie malnutrition Hypernatremia Plan stable kidney function, non-oliguric Renal US was negative for hydronephrosis Hypernatremia-will increase D5W to 150 Replete potassium as needed Renally dose medications Avoid nephrotoxic agents Strict I&O's daily Obtain daily weights Subjective Date of service: 06/16/21 Principal diagnosis: TREMAINE Interval history: no overnight events reported Objective - Vital Signs Vital signs: Vital Signs - 12hr 06/15/21 06/16/21 06/16/21 23:44 04:10 06:32 Temperature 97.9 F Pulse Rate 102 H Pulse Rate [ Radial] Respiratory 20 Rate Blood Pressure 139/83 O2 Sat by Pulse 89 91 82 L Oximetry 06/16/21 06/16/21 08:09 08:16 Temperature Pulse Rate Pulse Rate [ 91 H Radial] Respiratory 22 Rate Blood Pressure O2 Sat by Pulse 91 90 Oximetry - Lab 06/15/21 07:38 06/16/21 05:44 Most recent lab results ABG pH 7.318 pH Units (7.350-7.450) L 06/12/21 04:22 ABG pCO2 40.1 mm Hg 06/12/21 04:22 ABG pO2 51.5 mm Hg (80.0-90.0) L 06/12/21 04:22 ABG HCO3 20.1 mmol/L (20.0-26.0) 06/12/21 04:22 ABG O2 Saturation 86.9 % (95.0-99.0) L 06/12/21 04:22 Calcium 9.2 mg/dL (8.4-10.2) 06/16/21 05:44 Phosphorus 3.30 mg/dL (2.5-4.5) 06/14/21 04:42 Magnesium 2.40 mg/dL (1.7-2.3) H 06/14/21 04:42 Medications & Allergies - Medications Allergies/Adverse Reactions: Allergies latex Allergy (Verified 03/19/19 17:03) Unknown shellfish derived Allergy (Verified 03/19/19 17:03) Anaphylaxis strawberry Allergy (Verified 03/19/19 17:03) Anaphylaxis tomato Allergy (Verified 03/19/19 17:03) Anaphylaxis nuts Allergy (Uncoded 03/19/19 17:03) Anaphylaxis Home Medications: Home Medications Medication Instructions Recorded Confirmed Last Taken Type Albuterol Sulfate [Ventolin HFA] 2 puff IH Q4H PRN 01/29/14 06/11/21 02/01/15 History Levothyroxine (Nf) [Synthroid (Nf)] 275 mcg PO QAM 01/29/14 06/11/21 02/01/15 History Fluticasone/Salmeterol [Advair 1 each IH PRN PRN 01/26/15 06/11/21 02/02/15 10:00 History Diskus 250-50 mcg] Apixaban [Eliquis starter pack] 5 mg PO BID 09/13/19 06/11/21 Unknown History Insulin Aspart Prot/Insuln Asp 45 unit SUB-Q QAM 09/13/19 06/11/21 Unknown History [Novolog Mix 70-30 Flexpen] Insulin Glargine,Hum.rec.anlog 25 unit SQ HS 09/13/19 06/11/21 Unknown History [Basaglar Kwikpen U-100] Lovastatin [Altoprev] 20 mg PO DAILY 09/13/19 06/11/21 Unknown History Docusate Sodium [Colace CAP] 100 mg PO BID PRN #30 capsule 09/17/19 06/11/21 Unknown Rx Loratadine/Pseudoephedrine 1 each PO Q24HR #10 tablet 09/17/19 06/11/21 Unknown Rx [Claritin-D 24HR] Ondansetron [Zofran Odt] 4 mg PO Q8HR #20 tab.rapdis 09/17/19 06/11/21 Unknown Rx carvediloL [Coreg] 3.125 mg PO BID #60 tablet 09/17/19 06/11/21 Unknown Rx hydrALAZINE [Apresoline TAB] 25 mg PO Q8HR #90 tablet 09/17/19 06/11/21 Unknown Rx Active Medications: Generic Name Dose Route Start Last Admin Trade Name Freq PRN Reason Stop Dose Admin Acetaminophen 650 mg 06/07/21 21:41 Acetaminophen 325 Mg Tab PO Q4H PRN Pain MILD(1-3)/Fever >100.5/MARTÍNEZ Albuterol 2 puff 06/07/21 23:00 Albuterol 8.5 Gm Mdi Inhalation IH Q4HRT PRN Shortness Of Breath Alprazolam 0.5 mg 06/15/21 04:58 06/15/21 05:33 Alprazolam 0.5 Mg Tab PO 0.5 mg Q8H PRN Administration Anxiety Apixaban 5 mg 06/08/21 10:00 06/16/21 09:11 Apixaban 5 Mg Tab PO 5 mg BID LEONOR Administration Atorvastatin Calcium 10 mg 06/08/21 10:00 06/16/21 09:11 Atorvastatin 10 Mg Tab PO 10 mg DAILY LEONOR Administration Carvedilol 6.25 mg 06/15/21 22:00 06/16/21 09:11 Carvedilol 6.25 Mg Tab PO 6.25 mg BID LEONOR Administration Dextrose 50 ml 06/08/21 12:04 Dextrose 50% In Water (25gm) 50 Ml Syringe IV Q30MIN PRN Hypoglycemia Protocol Docusate Sodium 100 mg 06/07/21 21:33 Docusate Sodium 100 Mg Cap PO BID PRN Constipation Famotidine 10 mg 06/14/21 22:00 06/16/21 09:11 Famotidine 10 Mg Tab PO 10 mg BID LEONOR Administration Guaifenesin 10 ml 06/09/21 00:15 06/11/21 06:12 Guaifenesin Dm 200/20 Mg Oral Liqd 10 Ml PO 10 ml Q4H PRN Administration Cough Hydralazine HCl 25 mg 06/07/21 22:00 06/16/21 08:00 Hydralazine 25 Mg Tab PO Not Given Q8HR LEONOR Hydromorphone HCl 0.5 mg 06/07/21 21:41 Hydromorphone 1 Mg/1 Ml Inj IV Q3H PRN Pain , Severe (7-10) Hydromorphone HCl 0.25 mg 06/07/21 22:33 Hydromorphone 1 Mg/1 Ml Inj IV Q4H PRN Pain, Moderate (4-6) Hydrophilic Ointment 1 applic 06/13/21 07:30 Lip Therapy Vaseline TP DIRECT PRN Dry Lips Dextrose 1,000 mls @ 125 mls/hr 06/14/21 10:00 06/14/21 22:22 D5w IV 125 mls/hr DIRECT LEONOR Administration Insulin Human Isoph/Insulin Regular 32 unit 06/15/21 17:00 06/16/21 08:00 Insulin Nph/Regular 70/30 Inj SUB-Q 32 unit BIDDIAB LEONOR Administration Insulin Human Regular 0 units 06/08/21 12:15 06/16/21 08:04 Insulin Regular, Human 100 Units/1 Ml SUB-Q Not Given ACHS [facility] Protocol Levothyroxine Sodium 75 mcg 06/08/21 06:00 06/16/21 06:00 Levothyroxine 75 Mcg Tab PO Not Given QAM@0600 [facility] Levothyroxine Sodium 200 mcg 06/08/21 06:00 06/16/21 06:00 Levothyroxine 100 Mcg Tab PO Not Given DAILY@0600 [facility] Loratadine/Pseudoephedrine Sulfate 1 each 06/08/21 10:00 06/16/21 09:11 Loratadine/Pseudoephedrine 10-240 Mg Tab 24hr PO 1 each Q24HR [facility] Administration Ondansetron HCl 4 mg 06/07/21 22:00 06/16/21 08:01 Ondansetron 4 Mg Odt Tab PO Not Given Q8HR [facility] Ondansetron HCl 4 mg 06/07/21 21:41 06/10/21 06:24 Ondansetron 4 Mg/2 Ml Inj IV 4 mg Q8H PRN Administration Nausea And Vomiting Oxycodone/Acetaminophen 1 tab 06/07/21 21:41 06/09/21 17:05 Oxycodone /Acetaminophen 5-325mg Tab PO 1 tab Q6H PRN Administration Pain, Moderate (4-6) Quetiapine Fumarate 50 mg 06/15/21 22:00 06/16/21 08:00 Quetiapine 25 Mg Tab PO Not Given QHS [facility] Sodium Bicarbonate 650 mg 06/10/21 14:00 06/16/21 08:00 Sodium Bicarbonate 650 Mg Tab PO 650 mg TID LEONOR Administration Sodium Chloride 10 ml 06/07/21 22:00 06/16/21 09:10 Sodium Chloride 0.9% 10 Ml Flush Syringe IV 10 ml BID LEONOR Administration Sodium Chloride 10 ml 06/07/21 21:41 Sodium Chloride 0.9% 10 Ml Flush Syringe IV PRN PRN LINE FLUSH
--- NOTE | 2021-06-16 14:20 | Progress Note ---
Assessment and Plan Cultures: SARS CoV2 PCR positive Assessment: 61-year-old female with history of diabetes mellitus, hypertension, hyperlipidemia, hypothyroidism, vaccinated for COVID-19 with [employer] 2020, admitted on 06/07/2021 secondary to a week history of malaise, chills, fever cough, shortness of breath: #Severe sepsis : likely due to bilateral pneumonia. #Severe breakthrough COVID pneumonia: CXR with bilateral multifocal pneumonia. Inflammatory markers elevated. No indication for remdesivir due to renal failure. Received Actemra on 06/09/2021, on steroids. #Acute hypoxemic respiratory failure: Requiring BiPAP/HFNC. #TREMAINE: from sepsis/COVID #Diabetes mellitus: Uncontrolled. Glucose 244. A1c 9.5. #Morbid obesity Recommendations: -Status post Actemra 06/09/2021 -Continue dexamethasone IV/PO daily for 10 days, benefit beyond that is unclear and may increase risk of nosocomial infections especially given Actemra use -Continue anticoagulation per System Protocol, very high d-dimer, on apixaban -completed abx -poor prognosis ID will sign off. Please reconsult as needed. Hollie Oviedo MD, FACP [facility] ([facility]) O: [phone] F: [phone] Subjective Date of service: 06/16/21 Principal diagnosis: TREMAINE Interval history: No fever. Remains on NRB plus high flow nasal cannula Objective - Exam Narrative Exam: Physical Exam (reviewed in chart to minimize risk of transmission) Constitutional: deferred Head, Ears, Nose: deferred Eyes: deferred Neck: deferred Oral: deferred Cardiovascular: deferred Respiratory: deferred GI: deferred Musculoskeletal: deferred Skin: deferred Hem/Lymphatic: deferred Psych: deferred Neurological: deferred - Constitutional Vitals: Vital Signs Temp Pulse Resp BP Pulse Ox 94.1 F L 87 17 152/84 89 06/16/21 11:12 06/16/21 11:13 06/16/21 11:12 06/16/21 11:12 06/16/21 14:07 Temperature -Last 24 Hours Temperature 94.1 F Temperature 97.9 F Temperature 97.9 F Temperature 98.4 F - Labs CBC & Chem 7: 06/15/21 07:38 06/16/21 05:44 Labs: Abnormal lab results 06/10/21 06/15/21 06/16/21 Range/Units 23:14 17:32 05:44 Sodium 154 H (137-145) mmol/L Chloride 117.2 H (98-107) mmol/L BUN 54 H (7-17) mg/dL Creatinine 2.0 H (0.6-1.2) mg/dL Glucose 120 H (65-100) mg/dL POC Glucose 179 H (70-105) mg/dL Albumin 2.6 L (3.8-4.8) g/dL Ftill-9-Rracfllas 0.5 H (0.2-0.3) g/dL Lavum-5-Uwwopcrrk 1.7 H (0.5-0.9) g/dL Beta Globulins 0.6 H (0.2-0.5) g/dL PEP Interpretation see below H 06/16/21 06/16/21 Range/Units 07:48 11:13 Sodium (137-145) mmol/L Chloride (98-107) mmol/L BUN (7-17) mg/dL Creatinine (0.6-1.2) mg/dL Glucose (65-100) mg/dL POC Glucose 109 H 222 H (70-105) mg/dL Albumin (3.8-4.8) g/dL Fzzzi-0-Pvkwjmrlu (0.2-0.3) g/dL Zaiao-3-Fpqdkausp (0.5-0.9) g/dL Beta Globulins (0.2-0.5) g/dL PEP Interpretation
[2021-06-16] MEDS: DEXTROSE 5% IN WATER 1,000 ML IV SCH (16:58)
[2021-06-17] MEDS: DEXTROSE 5% IN WATER 1,000 ML IV SCH (04:57)
[2021-06-17] MEDS: ONDANSETRON 4 MG ODT TAB PO SCH ×3 (06:14→22:33)
[2021-06-17] MEDS: LEVOTHYROXINE 100 MCG TAB PO SCH (06:14)
[2021-06-17] MEDS: hydrALAZINE 25 MG TAB PO SCH ×3 (06:15→22:33)
[2021-06-17] MEDS: LEVOTHYROXINE 75 MCG TAB PO SCH (06:15)
[2021-06-17] MEDS: INSULIN REGULAR, HUMAN 100 UNITS/1 ML SUB-Q SCH ×4 (07:30→22:33)
--- NOTE | 2021-06-17 07:41 | Progress Note ---
Assessment and Plan Assessment and plan: #Severe COVID-19 breakthrough infection #COVID-19 pneumonia #Severe ARDS -patient vaccinated -continue isolation precautions -inflammatory markers q3d -currently on high flow -completed 10 days of steroids -continue vitamin C, zinc and vitamin D #Acute hypoxic respiratory failure -continue high flow, wean as tolerated -continue nebulized treatments -Pulmonary following, recs appreciated #Acute encephalopathy -stable -Waxing and waning alertness -Delirium precautions -continue seroquel nightly -will consider CTH versus neurology consult if progresses #Hypernatremia -sodium improved to 148 -likely secondary to poor p.o. intake -continue D5W @ 150cc/hr -continue 400 cc every 4 hour free water flushes by mouth #Acute versus chronic renal failure -unknown baseline, SCr 1.8 today -avoid nephrotoxins -Nephrology managing #Insulin-dependent type 2 diabetes -Humulin increased to 34 units twice daily plus sliding scale -goal glucose 140-180 #Elevated troponin -resolved, likely type II #Hypertension -Not at goal -continue BB and hydralazine at current doses #Hypothyroidism -continue home levothyroxine #Protein calorie malnutrition -Nutrition consult #History of DVT -continue Eliquis #Discharge planning -pending improved respiratory status -Physical therapy consult to evaluate and treat once patient improves Disposition Plan: Continue medical management Total Time Spent with Patient (Minutes): 20 minutes History Interval history: No acute events overnight. Patient alert to person and place. Ate breakfast. Denies chest pain, shortness of breath or discomfort. Hospitalist Physical - Physical exam Narrative exam: GENERAL: Obese. Lying in bed. HEENT: High flow at 15 L/min. CHEST/LUNGS: Coarse breath sounds bilaterally. HEART/CARDIOVASCULAR: Regular rate rhythm. No murmur, rubs or gallops appreciated. ABDOMEN: +BS. NT/ND. EXTREMITIES: No cyanosis, clubbing or edema. - Constitutional Vitals: Temp Pulse Resp BP Pulse Ox 98.2 F 78 18 149/75 90 06/17/21 05:19 06/17/21 06:15 06/17/21 05:19 06/17/21 06:15 06/17/21 05:30 General appearance: Present: no acute distress - Allied Health Allied health notes reviewed: nursing HEART Score - HEART Score EKG: Non-specific Age: 45-65 Risk factors: 1-2 risk factors Troponin: Troponin T 0.021 ng/mL (0.00-0.029) 06/08/21 13:49 - Critical Actions Critical Actions: 0-3 pts:0.9-1.7%risk of adverse cardiac event.Candidate for discharge Results - Labs CBC & Chem 7: 06/17/21 09:35 06/17/21 09:35 Labs: Laboratory Last Values WBC 14.3 K/mm3 (4.5-11.0) H 06/15/21 07:38 RBC 4.64 M/mm3 (3.65-5.03) 06/15/21 07:38 Hgb 13.0 gm/dl (10.1-14.3) 06/15/21 07:38 Hct 39.8 % (30.3-42.9) 06/15/21 07:38 MCV 86 fl (79-97) 06/15/21 07:38 MCH 28 pg (28-32) 06/15/21 07:38 MCHC 33 % (30-34) 06/15/21 07:38 RDW 15.1 % (13.2-15.2) 06/15/21 07:38 Plt Count 140 K/mm3 (140-440) 06/15/21 07:38 Lymph % (Auto) 8.5 % (13.4-35.0) L 06/12/21 08:31 [place] % (Auto) 2.5 % (0.0-7.3) 06/12/21 08:31 Eos % (Auto) 0.8 % (0.0-4.3) 06/12/21 08:31 Baso % (Auto) 0.1 % (0.0-1.8) 06/12/21 08:31 Lymph # (Auto) 1.1 K/mm3 (1.2-5.4) L 06/12/21 08:31 [place] # (Auto) 0.3 K/mm3 (0.0-0.8) 06/12/21 08:31 Eos # (Auto) 0.1 K/mm3 (0.0-0.4) 06/12/21 08:31 Baso # (Auto) 0.0 K/mm3 (0.0-0.1) 06/12/21 08:31 Add Manual Diff Complete 06/15/21 07:38 Total Counted 100 06/15/21 07:38 Seg Neutrophils % Kiln Stacker 06/15/21 07:38 Seg Neuts % (Manual) 95.0 % (40.0-70.0) H 06/15/21 07:38 Band Neutrophils % 4.0 % 06/15/21 07:38 Lymphocytes % (Manual) 1.0 % (13.4-35.0) L 06/15/21 07:38 Monocytes % (Manual) 3.0 % (0.0-7.3) 06/14/21 04:42 Eosinophils % (Manual) 1.0 % (0.0-4.3) 06/13/21 07:42 Metamyelocytes % 2.0 % 06/10/21 23:14 Myelocytes % 2.0 % 06/14/21 04:42 Nucleated RBC % Not Reportable 06/15/21 07:38 Seg Neutrophils # 10.9 K/mm3 (1.8-7.7) H 06/12/21 08:31 Seg Neutrophils # Man 13.6 K/mm3 (1.8-7.7) H 06/15/21 07:38 Band Neutrophils # 0.6 K/mm3 06/15/21 07:38 Lymphocytes # (Manual) 0.1 K/mm3 (1.2-5.4) L 06/15/21 07:38 Abs React Lymphs (Man) 0.0 K/mm3 06/15/21 07:38 Monocytes # (Manual) 0.0 K/mm3 (0.0-0.8) 06/15/21 07:38 Eosinophils # (Manual) 0.0 K/mm3 (0.0-0.4) 06/15/21 07:38 Basophils # (Manual) 0.0 K/mm3 (0.0-0.1) 06/15/21 07:38 Metamyelocytes # 0.0 K/mm3 06/15/21 07:38 Myelocytes # 0.0 K/mm3 06/15/21 07:38 Promyelocytes # 0.0 K/mm3 06/15/21 07:38 Blast Cells # 0.0 K/mm3 06/15/21 07:38 WBC Morphology Not Reportable 06/15/21 07:38 Hypersegmented Neuts Not Reportable 06/15/21 07:38 Hyposegmented Neuts Not Reportable 06/15/21 07:38 Hypogranular Neuts Not Reportable 06/15/21 07:38 Smudge Cells Not Reportable 06/15/21 07:38 Toxic Granulation Not Reportable 06/15/21 07:38 Toxic Vacuolation Not Reportable 06/15/21 07:38 Dohle Bodies Not Reportable 06/15/21 07:38 Pelger-Huet Anomaly Not Reportable 06/15/21 07:38 Nba Rods Not Reportable 06/15/21 07:38 Platelet Estimate Consistent w auto 06/15/21 07:38 Clumped Platelets Not Reportable 06/15/21 07:38 Plt Clumps, EDTA Not Reportable 06/15/21 07:38 Large Platelets Not Reportable 06/15/21 07:38 Giant Platelets Not Reportable 06/15/21 07:38 Platelet Satelliting Not Reportable 06/15/21 07:38 Plt Morphology Comment Not Reportable 06/15/21 07:38 RBC Morphology Not Reportable 06/15/21 07:38 Dimorphic RBCs Not Reportable 06/15/21 07:38 Polychromasia Not Reportable 06/15/21 07:38 Hypochromasia Not Reportable 06/15/21 07:38 Poikilocytosis Not Reportable 06/15/21 07:38 Anisocytosis Not Reportable 06/15/21 07:38 Microcytosis Not Reportable 06/15/21 07:38 Macrocytosis Not Reportable 06/15/21 07:38 Spherocytes Not Reportable 06/15/21 07:38 Pappenheimer Bodies Not Reportable 06/15/21 07:38 Sickle Cells Not Reportable 06/15/21 07:38 Target Cells Not Reportable 06/15/21 07:38 Tear Drop Cells 1+ 06/15/21 07:38 Ovalocytes 1+ 06/15/21 07:38 Helmet Cells Not Reportable 06/15/21 07:38 Terry-Lowell Bodies Not Reportable 06/15/21 07:38 May Rings Not Reportable 06/15/21 07:38 [place] Cells Not Reportable 06/15/21 07:38 Bite Cells Not Reportable 06/15/21 07:38 Crenated Cell Not Reportable 06/15/21 07:38 Elliptocytes Not Reportable 06/15/21 07:38 Acanthocytes (Spur) Not Reportable 06/15/21 07:38 Rouleaux Not Reportable 06/15/21 07:38 Hemoglobin C Crystals Not Reportable 06/15/21 07:38 Schistocytes Not Reportable 06/15/21 07:38 Malaria parasites Not Reportable 06/15/21 07:38 Luis Bodies Not Reportable 06/15/21 07:38 Hem Pathologist Commnt No 06/15/21 07:38 D-Dimer > 19315 ng/mlDDU (0-234) H 06/15/21 07:38 ABG pH 7.318 pH Units (7.350-7.450) L 06/12/21 04:22 POC ABG pCO2 34.2 mmHg (32.0-48.0) 06/09/21 12:19 ABG pCO2 40.1 mm Hg 06/12/21 04:22 POC ABG pO2 71.4 mmHg (83-108) L 06/09/21 12:19 ABG pO2 51.5 mm Hg (80.0-90.0) L 06/12/21 04:22 POC ABG HCO3 20.5 06/09/21 12:19 ABG HCO3 20.1 mmol/L (20.0-26.0) 06/12/21 04:22 ABG O2 Saturation 86.9 % (95.0-99.0) L 06/12/21 04:22 ABG O2 Content 16.2 (0.0-44) 06/12/21 04:22 POC ABG Base Excess -3.6 06/09/21 12:19 ABG Base Excess -5.6 mmol/L (-2.0-3.0) L 06/12/21 04:22 ABG Hemoglobin 13.5 gm/dl (12.0-16.0) 06/12/21 04:22 ABG Oxyhemoglobin 92.9 (94-98) L 06/09/21 12:19 ABG Carboxyhemoglobin 1.1 % (0.0-5.0) 06/12/21 04:22 ABG Methemoglobin 0.5 % (0.0-1.5) 06/12/21 04:22 ABG Sodium 143.5 mmol/L (136.0-145.0) 06/09/21 12:19 ABG Potassium 3.6 mmol/L (3.40-4.50) 06/09/21 12:19 ABG Chloride 109.0 mmol/L (98-107) H 06/09/21 12:19 ABG Glucose 287 mg/dL (65-95) H 06/09/21 12:19 Oxyhemoglobin 85.5 % (95.0-99.0) L 06/12/21 04:22 Carboxyhemoglobin 0.4 (0.5-1.5) L 06/09/21 12:19 FiO2 100 % 06/12/21 04:22 FiO2 % 75.0 06/09/21 12:19 Sodium 154 mmol/L (137-145) H 06/16/21 05:44 Potassium 3.7 mmol/L (3.6-5.0) 06/16/21 05:44 Chloride 117.2 mmol/L (98-107) H 06/16/21 05:44 Carbon Dioxide 27 mmol/L (22-30) 06/16/21 05:44 Anion Gap 14 mmol/L 06/16/21 05:44 BUN 54 mg/dL (7-17) H 06/16/21 05:44 Creatinine 2.0 mg/dL (0.6-1.2) H 06/16/21 05:44 Estimated GFR 31 ml/min 06/16/21 05:44 BUN/Creatinine Ratio 27 % 06/16/21 05:44 Glucose 120 mg/dL (65-100) H 06/16/21 05:44 POC Glucose 250 mg/dL (70-105) H 06/16/21 21:15 Hemoglobin A1c 9.5 % (4-6) H 06/07/21 19:11 Calcium 9.2 mg/dL (8.4-10.2) 06/16/21 05:44 Phosphorus 3.30 mg/dL (2.5-4.5) 06/14/21 04:42 Magnesium 2.40 mg/dL (1.7-2.3) H 06/14/21 04:42 Ferritin 1246.0 ng/mL (10.0-200.0) H 06/15/21 07:38 Total Bilirubin 0.30 mg/dL (0.1-1.2) 06/08/21 03:44 AST 29 units/L (5-40) 06/08/21 03:44 ALT 19 units/L (7-56) 06/08/21 03:44 Alkaline Phosphatase 58 units/L (35-129) 06/08/21 03:44 Lactate Dehydrogenase 606 units/L (91-180) H 06/10/21 23:14 Troponin T 0.021 ng/mL (0.00-0.029) 06/08/21 13:49 C-Reactive Protein 1.90 mg/dL (0.00-1.30) H 06/11/21 10:58 Serum Total Protein 7.0 g/dL (6.1-8.1) 06/10/21 23:14 Total Protein 7.9 g/dL (6.3-8.2) 06/08/21 03:44 Albumin 2.6 g/dL (3.8-4.8) L 06/10/21 23:14 Albumin/Globulin Ratio 0.8 % 06/08/21 03:44 Yenzk-2-Umandcszx 0.5 g/dL (0.2-0.3) H 06/10/21 23:14 Kohkd-6-Uihstjkaz 1.7 g/dL (0.5-0.9) H 06/10/21 23:14 Beta Globulins 0.6 g/dL (0.2-0.5) H 06/10/21 23:14 Gamma Globulins 1.3 g/dL (0.8-1.7) 06/10/21 23:14 Abnorm Protein Band 1 see below 06/10/21 23:14 PEP Interpretation see below H 06/10/21 23:14 Triglycerides 209 mg/dL (2-149) H 06/07/21 19:11 Cholesterol 165 mg/dL (50-199) 06/07/21 19:11 LDL Cholesterol Direct 79 mg/dL (50-130) 06/07/21 19:11 HDL Cholesterol 35 mg/dL (40-59) L 06/07/21 19:11 Cholesterol/HDL Ratio 4.71 % 06/07/21 19:11 Procalcitonin 0.91 ng/mL (<0.15) 06/07/21 19:11 Arterial Blood Glucose 287 mg/dL (65-95) H 06/09/21 12:19 Coronavirus (PCR) Positive (Negative) A 06/08/21 08:30 Blood Type B POSITIVE 06/07/21 22:34 Antibody Screen Negative 06/07/21 22:34 Roland/IV: Voiding Method Bedpan Active Medications - Current Medications Current Medications: Generic Name Dose Route Start Last Admin Trade Name Freq PRN Reason Stop Dose Admin Acetaminophen 650 mg 06/07/21 21:41 Acetaminophen 325 Mg Tab PO Q4H PRN Pain MILD(1-3)/Fever >100.5/MARTÍNEZ Albuterol 2 puff 06/07/21 23:00 Albuterol 8.5 Gm Mdi Inhalation IH Q4HRT PRN Shortness Of Breath Alprazolam 0.5 mg 06/15/21 04:58 06/15/21 05:33 Alprazolam 0.5 Mg Tab PO 0.5 mg Q8H PRN Administration Anxiety Apixaban 5 mg 06/08/21 10:00 06/16/21 22:50 Apixaban 5 Mg Tab PO 5 mg BID LEONOR Administration Atorvastatin Calcium 10 mg 06/08/21 10:00 06/16/21 09:11 Atorvastatin 10 Mg Tab PO 10 mg DAILY LEONOR Administration Carvedilol 6.25 mg 06/15/21 22:00 06/16/21 22:50 Carvedilol 6.25 Mg Tab PO 6.25 mg BID LEONOR Administration Dextrose 50 ml 06/08/21 12:04 Dextrose 50% In Water (25gm) 50 Ml Syringe IV Q30MIN PRN Hypoglycemia Protocol Docusate Sodium 100 mg 06/07/21 21:33 Docusate Sodium 100 Mg Cap PO BID PRN Constipation Famotidine 10 mg 06/14/21 22:00 06/16/21 22:50 Famotidine 10 Mg Tab PO 10 mg BID LEONOR Administration Guaifenesin 10 ml 06/09/21 00:15 06/11/21 06:12 Guaifenesin Dm 200/20 Mg Oral Liqd 10 Ml PO 10 ml Q4H PRN Administration Cough Hydralazine HCl 25 mg 06/07/21 22:00 06/17/21 06:15 Hydralazine 25 Mg Tab PO 25 mg Q8HR LEONOR Administration Hydromorphone HCl 0.5 mg 06/07/21 21:41 Hydromorphone 1 Mg/1 Ml Inj IV Q3H PRN Pain , Severe (7-10) Hydromorphone HCl 0.25 mg 06/07/21 22:33 Hydromorphone 1 Mg/1 Ml Inj IV Q4H PRN Pain, Moderate (4-6) Hydrophilic Ointment 1 applic 06/13/21 07:30 Lip Therapy Vaseline TP DIRECT PRN Dry Lips Dextrose 1,000 mls @ 150 mls/hr 06/14/21 10:00 06/17/21 04:57 D5w IV 125 mls/hr DIRECT LEONOR Administration Insulin Human Isoph/Insulin Regular 32 unit 06/15/21 17:00 06/16/21 16:47 Insulin Nph/Regular 70/30 Inj SUB-Q 32 unit BIDDIAB LEONOR Administration Insulin Human Regular 0 units 06/08/21 12:15 06/16/21 22:51 Insulin Regular, Human 100 Units/1 Ml SUB-Q 6 units ACHS LEONOR Administration Protocol Levothyroxine Sodium 75 mcg 06/08/21 06:00 06/17/21 06:15 Levothyroxine 75 Mcg Tab PO 75 mcg QAM@0600 LEONOR Administration Levothyroxine Sodium 200 mcg 06/08/21 06:00 06/17/21 06:14 Levothyroxine 100 Mcg Tab PO 200 mcg DAILY@0600 LEONOR Administration Loratadine/Pseudoephedrine Sulfate 1 each 06/08/21 10:00 06/16/21 09:11 Loratadine/Pseudoephedrine 10-240 Mg Tab 24hr PO 1 each Q24HR LEONOR Administration Ondansetron HCl 4 mg 06/07/21 22:00 06/17/21 06:14 Ondansetron 4 Mg Odt Tab PO 4 mg Q8HR LEONOR Administration Ondansetron HCl 4 mg 06/07/21 21:41 06/10/21 06:24 Ondansetron 4 Mg/2 Ml Inj IV 4 mg Q8H PRN Administration Nausea And Vomiting Oxycodone/Acetaminophen 1 tab 06/07/21 21:41 06/09/21 17:05 Oxycodone /Acetaminophen 5-325mg Tab PO 1 tab Q6H PRN Administration Pain, Moderate (4-6) Quetiapine Fumarate 50 mg 06/15/21 22:00 06/16/21 22:51 Quetiapine 25 Mg Tab PO 50 mg QHS LEONOR Administration Sodium Bicarbonate 650 mg 06/10/21 14:00 06/16/21 22:49 Sodium Bicarbonate 650 Mg Tab PO 650 mg TID LEONOR Administration Sodium Chloride 10 ml 06/07/21 22:00 06/16/21 22:53 Sodium Chloride 0.9% 10 Ml Flush Syringe IV 10 ml BID LEONOR Administration Sodium Chloride 10 ml 06/07/21 21:41 Sodium Chloride 0.9% 10 Ml Flush Syringe IV PRN PRN LINE FLUSH Nutrition/Malnutrition Assess - Dietary Evaluation Nutrition/Malnutrition Findings: Nutrition Notes Start: 06/08/21 10:56 Freq: Status: Active Protocol: Document 06/14/21 14:24 GB (Rec: 06/14/21 14:30 GB [email or web address]) Nutrition Notes Initial or Follow up Reassessment Current Diagnosis Acute Kidney Injury,Diabetes, Sepsis,Hypertension, Respiratory Failure Other Pertinent Diagnosis COVID-19 PUI, hypothyroid Current Diet consistent CHO/cardiac, pureed texture Labs/Tests 06/14: Na 152, BUN 68, Creatinine 2.5, glucose 188, Mg 2.4 Pertinent Medications Zofran NS at 10 ml/hr Height 5 ft 11 in Weight 164 kg [place] Body Weight (kg) 70.45 BMI 50.4 Weight change and time frame No significant changes reported. Stable. Weight Status Morbidly Obese Subjective/Other Information Per chart nursing staff recorded PO intake of meals as 100%. Supplement beverages glucerna have been d/c'd. Percent of energy/protein needs met: PO intake of meals 100% TID meets 75% or greater of estimated energy needs. Burn Absent Trauma Absent GI Symptoms None Difficulty In Swallowing,Chewing Food Allergy Yes Current % PO Good (75-100%) Minimum of two criteria No #1 Nutrition Diagnosis Predicted suboptimal energy intake Comments: PO intake of meals recorded currently for one day at 25%, independent with meals. 06/14: PO intake of meals recorded as 100% x2days. Etiology ARF As Evidenced by Signs and Symptoms pt on bipap Diagnosis Progress(for reassessment Improved documentation) Is patient on ventilator? No Is Patient Ambulatory and/or Out of Bed No REE-([facility]-confined to bed) 2771.148 Kcal/Kg value to use for calculation 12 Approximate Energy Requirements Using 1968 kcal/Kg Calculation Used for Recommendations Kcal/kg Additional Notes Protein: (0.8-1g/kg AdjBW) 94- 117g/day Fluid: 1 ml/kcal Nutrition Intervention Change Diet Order: Continue Add Supplement/Snack (indicate name/kcal n/a - history of pt not liking /protein ) nutrition supplement beverages Goal #1 PO intake of meals to improve to 50% or greater TID daily during LOS 06/14: met, PO intake recorded as 100%, continues Goal #2 Weight to maintain within =/-3 % current weight during LOS 06/14: met, continues Follow-Up By: 06/21/21 Additional Comments Nursing continue to record Meal intake.
[2021-06-17] MEDS: SODIUM BICARBONATE 650 MG TAB PO SCH ×3 (08:00→22:33)
[2021-06-17] MEDS: INSULIN NPH/REGULAR 70/30 INJ SUB-Q SCH ×2 (08:00→17:22)
[2021-06-17] MEDS: carvediloL 6.25 MG TAB PO SCH ×2 (09:17→22:33)
[2021-06-17] MEDS: FAMOTIDINE 10 MG TAB PO SCH (09:17)
[2021-06-17] MEDS: APIXABAN 5 MG TAB PO SCH ×2 (09:17→22:33)
[2021-06-17] MEDS: LORATADINE/PSEUDOEPHEDRINE 10-240 MG TAB 24HR PO SCH (09:21)
[2021-06-17 10:03] LABS: Hematocrit 39.1 % (30.3-42.9); Hemoglobin 12.7 gm/dl (10.1-14.3); Mean Corpuscular HGB Conc 33 % (30-34); Mean Corpuscular Volume 87 fl (79-97); Red Blood Count 4.51 M/mm3 (3.65-5.03); Red Cell Distribution Width 15.7 % (13.2-15.2)
[2021-06-17 10:12] LABS: Platelet Count 99 K/mm3 (140-440)
--- NOTE | 2021-06-17 10:26 | Progress Note ---
Assessment and Plan COVID-19 breakthrough infection COVID-19 pneumonia Acute renal failure versus acute on chronic renal failure Acute hypoxic respiratory failure Insulin-dependent type 2 diabetes- uncontrolled Elevated troponin Hypertension-controlled Hypothyroidism Protein calorie malnutrition Hypernatremia Plan bmp IS PENDING TODAY Renal US was negative for hydronephrosis Hypernatremia- D5W 2 150 Replete potassium as needed Renally dose medications Avoid nephrotoxic agents Strict I&O's daily Obtain daily weights Subjective Date of service: 06/17/21 Principal diagnosis: TREMAINE Interval history: remains confused, cont to require O2 Objective - Vital Signs Vital signs: Vital Signs - 12hr 06/16/21 06/16/21 06/16/21 22:41 22:49 22:50 Temperature 97.8 F Pulse Rate 88 88 88 Respiratory 18 Rate Blood Pressure 164/100 164/100 Blood Pressure 164/100 [Left] O2 Sat by Pulse 93 Oximetry 06/17/21 06/17/21 06/17/21 00:06 05:19 05:30 Temperature 97.6 F 98.2 F Pulse Rate 100 H 78 Respiratory 24 18 Rate Blood Pressure 154/79 149/75 Blood Pressure [Left] O2 Sat by Pulse 89 94 90 Oximetry 06/17/21 06:15 Temperature Pulse Rate 78 Respiratory Rate Blood Pressure 149/75 Blood Pressure [Left] O2 Sat by Pulse Oximetry - Lab 06/17/21 09:35 06/16/21 05:44 Most recent lab results ABG pH 7.318 pH Units (7.350-7.450) L 06/12/21 04:22 ABG pCO2 40.1 mm Hg 06/12/21 04:22 ABG pO2 51.5 mm Hg (80.0-90.0) L 06/12/21 04:22 ABG HCO3 20.1 mmol/L (20.0-26.0) 06/12/21 04:22 ABG O2 Saturation 86.9 % (95.0-99.0) L 06/12/21 04:22 Calcium 9.2 mg/dL (8.4-10.2) 06/16/21 05:44 Phosphorus 3.30 mg/dL (2.5-4.5) 06/14/21 04:42 Magnesium 2.40 mg/dL (1.7-2.3) H 06/14/21 04:42 Medications & Allergies - Medications Allergies/Adverse Reactions: Allergies latex Allergy (Verified 03/19/19 17:03) Unknown shellfish derived Allergy (Verified 03/19/19 17:03) Anaphylaxis strawberry Allergy (Verified 03/19/19 17:03) Anaphylaxis tomato Allergy (Verified 03/19/19 17:03) Anaphylaxis nuts Allergy (Uncoded 03/19/19 17:03) Anaphylaxis Home Medications: Home Medications Medication Instructions Recorded Confirmed Last Taken Type Albuterol Sulfate [Ventolin HFA] 2 puff IH Q4H PRN 01/29/14 06/11/21 02/01/15 History Levothyroxine (Nf) [Synthroid (Nf)] 275 mcg PO QAM 01/29/14 06/11/21 02/01/15 History Fluticasone/Salmeterol [Advair 1 each IH PRN PRN 01/26/15 06/11/21 02/02/15 10:00 History Diskus 250-50 mcg] Apixaban [Eliquis starter pack] 5 mg PO BID 09/13/19 06/11/21 Unknown History Insulin Aspart Prot/Insuln Asp 45 unit SUB-Q QAM 09/13/19 06/11/21 Unknown History [Novolog Mix 70-30 Flexpen] Insulin Glargine,Hum.rec.anlog 25 unit SQ HS 09/13/19 06/11/21 Unknown History [Basaglar Kwikpen U-100] Lovastatin [Altoprev] 20 mg PO DAILY 09/13/19 06/11/21 Unknown History Docusate Sodium [Colace CAP] 100 mg PO BID PRN #30 capsule 09/17/19 06/11/21 Unknown Rx Loratadine/Pseudoephedrine 1 each PO Q24HR #10 tablet 09/17/19 06/11/21 Unknown Rx [Claritin-D 24HR] Ondansetron [Zofran Odt] 4 mg PO Q8HR #20 tab.rapdis 09/17/19 06/11/21 Unknown Rx carvediloL [Coreg] 3.125 mg PO BID #60 tablet 09/17/19 06/11/21 Unknown Rx hydrALAZINE [Apresoline TAB] 25 mg PO Q8HR #90 tablet 09/17/19 06/11/21 Unknown Rx Active Medications: Generic Name Dose Route Start Last Admin Trade Name Freq PRN Reason Stop Dose Admin Acetaminophen 650 mg 06/07/21 21:41 Acetaminophen 325 Mg Tab PO Q4H PRN Pain MILD(1-3)/Fever >100.5/MARTÍNEZ Albuterol 2 puff 06/07/21 23:00 Albuterol 8.5 Gm Mdi Inhalation IH Q4HRT PRN Shortness Of Breath Alprazolam 0.5 mg 06/15/21 04:58 06/15/21 05:33 Alprazolam 0.5 Mg Tab PO 0.5 mg Q8H PRN Administration Anxiety Apixaban 5 mg 06/08/21 10:00 06/17/21 09:17 Apixaban 5 Mg Tab PO 5 mg BID LEONOR Administration Atorvastatin Calcium 10 mg 06/08/21 10:00 06/17/21 09:17 Atorvastatin 10 Mg Tab PO 10 mg DAILY LEONOR Administration Carvedilol 6.25 mg 06/15/21 22:00 06/17/21 09:17 Carvedilol 6.25 Mg Tab PO 6.25 mg BID LEONOR Administration Dextrose 50 ml 06/08/21 12:04 Dextrose 50% In Water (25gm) 50 Ml Syringe IV Q30MIN PRN Hypoglycemia Protocol Docusate Sodium 100 mg 06/07/21 21:33 Docusate Sodium 100 Mg Cap PO BID PRN Constipation Famotidine 10 mg 06/14/21 22:00 06/17/21 09:17 Famotidine 10 Mg Tab PO 10 mg BID LEONOR Administration Guaifenesin 10 ml 06/09/21 00:15 06/11/21 06:12 Guaifenesin Dm 200/20 Mg Oral Liqd 10 Ml PO 10 ml Q4H PRN Administration Cough Hydralazine HCl 25 mg 06/07/21 22:00 06/17/21 06:15 Hydralazine 25 Mg Tab PO 25 mg Q8HR LEONOR Administration Hydromorphone HCl 0.5 mg 06/07/21 21:41 Hydromorphone 1 Mg/1 Ml Inj IV Q3H PRN Pain , Severe (7-10) Hydromorphone HCl 0.25 mg 06/07/21 22:33 Hydromorphone 1 Mg/1 Ml Inj IV Q4H PRN Pain, Moderate (4-6) Hydrophilic Ointment 1 applic 06/13/21 07:30 Lip Therapy Vaseline TP DIRECT PRN Dry Lips Dextrose 1,000 mls @ 150 mls/hr 06/14/21 10:00 06/17/21 04:57 D5w IV 125 mls/hr DIRECT LEONOR Administration Insulin Human Isoph/Insulin Regular 32 unit 06/15/21 17:00 06/16/21 16:47 Insulin Nph/Regular 70/30 Inj SUB-Q 32 unit BIDDIAB LEONOR Administration Insulin Human Regular 0 units 06/08/21 12:15 06/17/21 07:30 Insulin Regular, Human 100 Units/1 Ml SUB-Q 4 units ACHS LEONOR Administration Protocol Levothyroxine Sodium 75 mcg 06/08/21 06:00 06/17/21 06:15 Levothyroxine 75 Mcg Tab PO 75 mcg QAM@0600 LEONOR Administration Levothyroxine Sodium 200 mcg 06/08/21 06:00 06/17/21 06:14 Levothyroxine 100 Mcg Tab PO 200 mcg DAILY@0600 LEONOR Administration Loratadine/Pseudoephedrine Sulfate 1 each 06/08/21 10:00 06/17/21 09:21 Loratadine/Pseudoephedrine 10-240 Mg Tab 24hr PO 1 each Q24HR LEONOR Administration Ondansetron HCl 4 mg 06/07/21 22:00 06/17/21 06:14 Ondansetron 4 Mg Odt Tab PO 4 mg Q8HR LEONOR Administration Ondansetron HCl 4 mg 06/07/21 21:41 06/10/21 06:24 Ondansetron 4 Mg/2 Ml Inj IV 4 mg Q8H PRN Administration Nausea And Vomiting Oxycodone/Acetaminophen 1 tab 06/07/21 21:41 06/09/21 17:05 Oxycodone /Acetaminophen 5-325mg Tab PO 1 tab Q6H PRN Administration Pain, Moderate (4-6) Quetiapine Fumarate 50 mg 06/15/21 22:00 06/16/21 22:51 Quetiapine 25 Mg Tab PO 50 mg QHS LEONOR Administration Sodium Bicarbonate 650 mg 06/10/21 14:00 06/17/21 08:00 Sodium Bicarbonate 650 Mg Tab PO 650 mg TID LEONOR Administration Sodium Chloride 10 ml 06/07/21 22:00 06/17/21 09:18 Sodium Chloride 0.9% 10 Ml Flush Syringe IV 10 ml BID LEONOR Administration Sodium Chloride 10 ml 06/07/21 21:41 Sodium Chloride 0.9% 10 Ml Flush Syringe IV PRN PRN LINE FLUSH
[2021-06-17 10:31] LABS: Albumin 2.8 g/dL (3.9-5); Calcium 8.5 mg/dL (8.4-10.2)
[2021-06-17] MEDS: QUEtiapine 25 MG TAB PO SCH (22:33)
[2021-06-18] MEDS: FAMOTIDINE 10 MG TAB PO SCH ×3 (01:00→23:50)
[2021-06-18] MEDS: DEXTROSE 5% IN WATER 1,000 ML IV SCH ×2 (01:02→11:54)
[2021-06-18] MEDS: LEVOTHYROXINE 75 MCG TAB PO SCH (06:47)
[2021-06-18] MEDS: ONDANSETRON 4 MG ODT TAB PO SCH ×3 (06:47→23:50)
[2021-06-18] MEDS: LEVOTHYROXINE 100 MCG TAB PO SCH (06:48)
[2021-06-18] MEDS: INSULIN REGULAR, HUMAN 100 UNITS/1 ML SUB-Q SCH ×4 (07:30→23:58)
[2021-06-18] MEDS: hydrALAZINE 25 MG TAB PO SCH ×3 (07:38→23:50)
--- NOTE | 2021-06-18 07:58 | Progress Note ---
Assessment and Plan Assessment and plan: #Severe COVID-19 breakthrough infection #COVID-19 pneumonia #Severe ARDS -patient vaccinated -continue isolation precautions -inflammatory markers q3d -currently on high flow -completed 10 days of steroids -continue vitamin C, zinc and vitamin D #Acute hypoxic respiratory failure -continue high flow, wean as tolerated -continue nebulized treatments -Pulmonary following, recs appreciated #Acute encephalopathy -stable -Waxing and waning alertness -Delirium precautions -continue seroquel nightly -will consider CTH versus neurology consult if progresses #Hypernatremia -sodium improved to 145 -likely secondary to poor p.o. intake -continue D5W @ 150cc/hr -continue 400 cc every 4 hour free water flushes by mouth #Acute versus chronic renal failure -unknown baseline, SCr 1.8 today -avoid nephrotoxins -Nephrology managing #Insulin-dependent type 2 diabetes -continue Humulin 34 units twice daily plus sliding scale -goal glucose 140-180 #Elevated troponin -resolved, likely type II #Hypertension -Not at goal -continue BB and hydralazine at current doses #Hypothyroidism -continue home levothyroxine #Protein calorie malnutrition -Nutrition consult #History of DVT -continue Eliquis #Discharge planning -pending improved respiratory status -Physical therapy consult to evaluate and treat once patient improves Disposition Plan: continue medical management Total Time Spent with Patient (Minutes): 20 minutes History Interval history: No acute events overnight. Patient alert to person and place. Ate breakfast. Denies chest pain, shortness of breath or discomfort. Hospitalist Physical - Physical exam Narrative exam: GENERAL: Obese. Lying in bed. HEENT: High flow at 15 L/min. CHEST/LUNGS: Coarse breath sounds bilaterally. HEART/CARDIOVASCULAR: Regular rate rhythm. No murmur, rubs or gallops appreciated. ABDOMEN: +BS. NT/ND. EXTREMITIES: No cyanosis, clubbing or edema. - Constitutional Vitals: Temp Pulse Resp BP Pulse Ox 97.4 F L 85 20 138/79 95 06/17/21 22:05 06/18/21 06:16 06/17/21 22:05 06/18/21 06:16 06/18/21 06:16 General appearance: Present: no acute distress HEART Score - HEART Score EKG: Non-specific Age: 45-65 Risk factors: 1-2 risk factors Troponin: Troponin T 0.021 ng/mL (0.00-0.029) 06/08/21 13:49 - Critical Actions Critical Actions: 0-3 pts:0.9-1.7%risk of adverse cardiac event.Candidate for discharge Results - Labs CBC & Chem 7: 06/17/21 09:35 06/18/21 10:10 Labs: Laboratory Last Values WBC 9.7 K/mm3 (4.5-11.0) 06/17/21 09:35 RBC 4.51 M/mm3 (3.65-5.03) 06/17/21 09:35 Hgb 12.7 gm/dl (10.1-14.3) 06/17/21 09:35 Hct 39.1 % (30.3-42.9) 06/17/21 09:35 MCV 87 fl (79-97) 06/17/21 09:35 MCH 28 pg (28-32) 06/17/21 09:35 MCHC 33 % (30-34) 06/17/21 09:35 RDW 15.7 % (13.2-15.2) H 06/17/21 09:35 Plt Count 99 K/mm3 (140-440) L 06/17/21 09:35 Lymph % (Auto) 8.5 % (13.4-35.0) L 06/12/21 08:31 [place] % (Auto) 2.5 % (0.0-7.3) 06/12/21 08:31 Eos % (Auto) 0.8 % (0.0-4.3) 06/12/21 08:31 Baso % (Auto) 0.1 % (0.0-1.8) 06/12/21 08:31 Lymph # (Auto) 1.1 K/mm3 (1.2-5.4) L 06/12/21 08:31 [place] # (Auto) 0.3 K/mm3 (0.0-0.8) 06/12/21 08:31 Eos # (Auto) 0.1 K/mm3 (0.0-0.4) 06/12/21 08:31 Baso # (Auto) 0.0 K/mm3 (0.0-0.1) 06/12/21 08:31 Add Manual Diff Complete 06/15/21 07:38 Total Counted 100 06/15/21 07:38 Seg Neutrophils % Manager Contact 06/15/21 07:38 Seg Neuts % (Manual) 95.0 % (40.0-70.0) H 06/15/21 07:38 Band Neutrophils % 4.0 % 06/15/21 07:38 Lymphocytes % (Manual) 1.0 % (13.4-35.0) L 06/15/21 07:38 Monocytes % (Manual) 3.0 % (0.0-7.3) 06/14/21 04:42 Eosinophils % (Manual) 1.0 % (0.0-4.3) 06/13/21 07:42 Metamyelocytes % 2.0 % 06/10/21 23:14 Myelocytes % 2.0 % 06/14/21 04:42 Nucleated RBC % Not Reportable 06/15/21 07:38 Seg Neutrophils # 10.9 K/mm3 (1.8-7.7) H 06/12/21 08:31 Seg Neutrophils # Man 13.6 K/mm3 (1.8-7.7) H 06/15/21 07:38 Band Neutrophils # 0.6 K/mm3 06/15/21 07:38 Lymphocytes # (Manual) 0.1 K/mm3 (1.2-5.4) L 06/15/21 07:38 Abs React Lymphs (Man) 0.0 K/mm3 06/15/21 07:38 Monocytes # (Manual) 0.0 K/mm3 (0.0-0.8) 06/15/21 07:38 Eosinophils # (Manual) 0.0 K/mm3 (0.0-0.4) 06/15/21 07:38 Basophils # (Manual) 0.0 K/mm3 (0.0-0.1) 06/15/21 07:38 Metamyelocytes # 0.0 K/mm3 06/15/21 07:38 Myelocytes # 0.0 K/mm3 06/15/21 07:38 Promyelocytes # 0.0 K/mm3 06/15/21 07:38 Blast Cells # 0.0 K/mm3 06/15/21 07:38 WBC Morphology Not Reportable 06/15/21 07:38 Hypersegmented Neuts Not Reportable 06/15/21 07:38 Hyposegmented Neuts Not Reportable 06/15/21 07:38 Hypogranular Neuts Not Reportable 06/15/21 07:38 Smudge Cells Not Reportable 06/15/21 07:38 Toxic Granulation Not Reportable 06/15/21 07:38 Toxic Vacuolation Not Reportable 06/15/21 07:38 Dohle Bodies Not Reportable 06/15/21 07:38 Pelger-Huet Anomaly Not Reportable 06/15/21 07:38 Nba Rods Not Reportable 06/15/21 07:38 Platelet Estimate Consistent w auto 06/15/21 07:38 Clumped Platelets Not Reportable 06/15/21 07:38 Plt Clumps, EDTA Not Reportable 06/15/21 07:38 Large Platelets Not Reportable 06/15/21 07:38 Giant Platelets Not Reportable 06/15/21 07:38 Platelet Satelliting Not Reportable 06/15/21 07:38 Plt Morphology Comment Not Reportable 06/15/21 07:38 RBC Morphology Not Reportable 06/15/21 07:38 Dimorphic RBCs Not Reportable 06/15/21 07:38 Polychromasia Not Reportable 06/15/21 07:38 Hypochromasia Not Reportable 06/15/21 07:38 Poikilocytosis Not Reportable 06/15/21 07:38 Anisocytosis Not Reportable 06/15/21 07:38 Microcytosis Not Reportable 06/15/21 07:38 Macrocytosis Not Reportable 06/15/21 07:38 Spherocytes Not Reportable 06/15/21 07:38 Pappenheimer Bodies Not Reportable 06/15/21 07:38 Sickle Cells Not Reportable 06/15/21 07:38 Target Cells Not Reportable 06/15/21 07:38 Tear Drop Cells 1+ 06/15/21 07:38 Ovalocytes 1+ 06/15/21 07:38 Helmet Cells Not Reportable 06/15/21 07:38 [place] Bodies Not Reportable 06/15/21 07:38 [place] Rings Not Reportable 06/15/21 07:38 [place] Cells Not Reportable 06/15/21 07:38 Bite Cells Not Reportable 06/15/21 07:38 Crenated Cell Not Reportable 06/15/21 07:38 Elliptocytes Not Reportable 06/15/21 07:38 Acanthocytes (Spur) Not Reportable 06/15/21 07:38 Rouleaux Not Reportable 06/15/21 07:38 Hemoglobin C Crystals Not Reportable 06/15/21 07:38 Schistocytes Not Reportable 06/15/21 07:38 Malaria parasites Not Reportable 06/15/21 07:38 Luis Bodies Not Reportable 06/15/21 07:38 Hem Pathologist Commnt No 06/15/21 07:38 D-Dimer 9804.08 ng/mlDDU (0-234) H 06/18/21 06:00 ABG pH 7.318 pH Units (7.350-7.450) L 06/12/21 04:22 POC ABG pCO2 34.2 mmHg (32.0-48.0) 06/09/21 12:19 ABG pCO2 40.1 mm Hg 06/12/21 04:22 POC ABG pO2 71.4 mmHg (83-108) L 06/09/21 12:19 ABG pO2 51.5 mm Hg (80.0-90.0) L 06/12/21 04:22 POC ABG HCO3 20.5 06/09/21 12:19 ABG HCO3 20.1 mmol/L (20.0-26.0) 06/12/21 04:22 ABG O2 Saturation 86.9 % (95.0-99.0) L 06/12/21 04:22 ABG O2 Content 16.2 (0.0-44) 06/12/21 04:22 POC ABG Base Excess -3.6 06/09/21 12:19 ABG Base Excess -5.6 mmol/L (-2.0-3.0) L 06/12/21 04:22 ABG Hemoglobin 13.5 gm/dl (12.0-16.0) 06/12/21 04:22 ABG Oxyhemoglobin 92.9 (94-98) L 06/09/21 12:19 ABG Carboxyhemoglobin 1.1 % (0.0-5.0) 06/12/21 04:22 ABG Methemoglobin 0.5 % (0.0-1.5) 06/12/21 04:22 ABG Sodium 143.5 mmol/L (136.0-145.0) 06/09/21 12:19 ABG Potassium 3.6 mmol/L (3.40-4.50) 06/09/21 12:19 ABG Chloride 109.0 mmol/L (98-107) H 06/09/21 12:19 ABG Glucose 287 mg/dL (65-95) H 06/09/21 12:19 Oxyhemoglobin 85.5 % (95.0-99.0) L 06/12/21 04:22 Carboxyhemoglobin 0.4 (0.5-1.5) L 06/09/21 12:19 FiO2 100 % 06/12/21 04:22 FiO2 % 75.0 06/09/21 12:19 Sodium 148 mmol/L (137-145) H 06/17/21 09:35 Potassium 4.2 mmol/L (3.6-5.0) 06/17/21 09:35 Chloride 113.3 mmol/L (98-107) H 06/17/21 09:35 Carbon Dioxide 26 mmol/L (22-30) 06/17/21 09:35 Anion Gap 13 mmol/L 06/17/21 09:35 BUN 45 mg/dL (7-17) H 06/17/21 09:35 Creatinine 1.8 mg/dL (0.6-1.2) H 06/17/21 09:35 Estimated GFR 35 ml/min 06/17/21 09:35 BUN/Creatinine Ratio 25 % 06/17/21 09:35 Glucose 202 mg/dL (65-100) H 06/17/21 09:35 POC Glucose 90 mg/dL (70-105) 06/17/21 22:03 Hemoglobin A1c 9.5 % (4-6) H 06/07/21 19:11 Calcium 8.5 mg/dL (8.4-10.2) 06/17/21 09:35 Phosphorus 3.30 mg/dL (2.5-4.5) 06/14/21 04:42 Magnesium 2.40 mg/dL (1.7-2.3) H 06/14/21 04:42 Ferritin 904.2 ng/mL (10.0-200.0) H 06/18/21 06:00 Total Bilirubin 0.40 mg/dL (0.1-1.2) 06/17/21 09:35 AST 21 units/L (5-40) 06/17/21 09:35 ALT 33 units/L (7-56) 06/17/21 09:35 Alkaline Phosphatase 113 units/L (35-129) 06/17/21 09:35 Lactate Dehydrogenase 606 units/L (91-180) H 06/10/21 23:14 Troponin T 0.021 ng/mL (0.00-0.029) 06/08/21 13:49 C-Reactive Protein 1.90 mg/dL (0.00-1.30) H 06/11/21 10:58 Serum Total Protein 7.0 g/dL (6.1-8.1) 06/10/21 23:14 Total Protein 6.0 g/dL (6.3-8.2) L 06/17/21 09:35 Albumin 2.8 g/dL (3.9-5) L 06/17/21 09:35 Albumin/Globulin Ratio 0.9 % 06/17/21 09:35 Gwotu-1-Rspkrsyto 0.5 g/dL (0.2-0.3) H 06/10/21 23:14 Yxhrd-4-Eqmhhevmr 1.7 g/dL (0.5-0.9) H 06/10/21 23:14 Beta Globulins 0.6 g/dL (0.2-0.5) H 06/10/21 23:14 Gamma Globulins 1.3 g/dL (0.8-1.7) 06/10/21 23:14 Abnorm Protein Band 1 see below 06/10/21 23:14 PEP Interpretation see below H 06/10/21 23:14 Triglycerides 209 mg/dL (2-149) H 06/07/21 19:11 Cholesterol 165 mg/dL (50-199) 06/07/21 19:11 LDL Cholesterol Direct 79 mg/dL (50-130) 06/07/21 19:11 HDL Cholesterol 35 mg/dL (40-59) L 06/07/21 19:11 Cholesterol/HDL Ratio 4.71 % 06/07/21 19:11 Procalcitonin 0.91 ng/mL (<0.15) 06/07/21 19:11 Arterial Blood Glucose 287 mg/dL (65-95) H 06/09/21 12:19 Coronavirus (PCR) Positive (Negative) A 06/08/21 08:30 Blood Type B POSITIVE 06/07/21 22:34 Antibody Screen Negative 06/07/21 22:34 Roland/IV: Voiding Method Bedpan Active Medications - Current Medications Current Medications: Generic Name Dose Route Start Last Admin Trade Name Freq PRN Reason Stop Dose Admin Acetaminophen 650 mg 06/07/21 21:41 Acetaminophen 325 Mg Tab PO Q4H PRN Pain MILD(1-3)/Fever >100.5/MARTÍNEZ Albuterol 2 puff 06/07/21 23:00 Albuterol 8.5 Gm Mdi Inhalation IH Q4HRT PRN Shortness Of Breath Alprazolam 0.5 mg 06/15/21 04:58 06/15/21 05:33 Alprazolam 0.5 Mg Tab PO 0.5 mg Q8H PRN Administration Anxiety Apixaban 5 mg 06/08/21 10:00 06/17/21 22:33 Apixaban 5 Mg Tab PO 5 mg BID LEONOR Administration Atorvastatin Calcium 10 mg 06/08/21 10:00 06/17/21 09:17 Atorvastatin 10 Mg Tab PO 10 mg DAILY LEONOR Administration Carvedilol 6.25 mg 06/15/21 22:00 06/17/21 22:33 Carvedilol 6.25 Mg Tab PO 6.25 mg BID LEONOR Administration Dextrose 50 ml 06/08/21 12:04 Dextrose 50% In Water (25gm) 50 Ml Syringe IV Q30MIN PRN Hypoglycemia Protocol Docusate Sodium 100 mg 06/07/21 21:33 Docusate Sodium 100 Mg Cap PO BID PRN Constipation Famotidine 10 mg 06/14/21 22:00 06/18/21 01:00 Famotidine 10 Mg Tab PO 10 mg BID LEONOR Administration Guaifenesin 10 ml 06/09/21 00:15 06/11/21 06:12 Guaifenesin Dm 200/20 Mg Oral Liqd 10 Ml PO 10 ml Q4H PRN Administration Cough Hydralazine HCl 25 mg 06/07/21 22:00 06/18/21 07:38 Hydralazine 25 Mg Tab PO 25 mg Q8HR LEONOR Administration Hydromorphone HCl 0.5 mg 06/07/21 21:41 Hydromorphone 1 Mg/1 Ml Inj IV Q3H PRN Pain , Severe (7-10) Hydromorphone HCl 0.25 mg 06/07/21 22:33 Hydromorphone 1 Mg/1 Ml Inj IV Q4H PRN Pain, Moderate (4-6) Hydrophilic Ointment 1 applic 06/13/21 07:30 Lip Therapy Vaseline TP DIRECT PRN Dry Lips Dextrose 1,000 mls @ 150 mls/hr 06/14/21 10:00 06/18/21 01:02 D5w IV 125 mls/hr DIRECT LEONOR Administration Insulin Human Isoph/Insulin Regular 34 unit 06/17/21 17:00 06/17/21 17:22 Insulin Nph/Regular 70/30 Inj SUB-Q 34 unit BIDDIAB LEONOR Administration Insulin Human Regular 0 units 06/08/21 12:15 06/17/21 22:33 Insulin Regular, Human 100 Units/1 Ml SUB-Q Not Given ACHS [facility] Protocol Levothyroxine Sodium 75 mcg 06/08/21 06:00 06/18/21 06:47 Levothyroxine 75 Mcg Tab PO 75 mcg QAM@0600 LEONOR Administration Levothyroxine Sodium 200 mcg 06/08/21 06:00 06/18/21 06:48 Levothyroxine 100 Mcg Tab PO 200 mcg DAILY@0600 LEONOR Administration Loratadine/Pseudoephedrine Sulfate 1 each 06/08/21 10:00 06/17/21 09:21 Loratadine/Pseudoephedrine 10-240 Mg Tab 24hr PO 1 each Q24HR LEONOR Administration Ondansetron HCl 4 mg 06/07/21 22:00 06/18/21 06:47 Ondansetron 4 Mg Odt Tab PO 4 mg Q8HR LEONOR Administration Ondansetron HCl 4 mg 06/07/21 21:41 06/10/21 06:24 Ondansetron 4 Mg/2 Ml Inj IV 4 mg Q8H PRN Administration Nausea And Vomiting Oxycodone/Acetaminophen 1 tab 06/07/21 21:41 06/09/21 17:05 Oxycodone /Acetaminophen 5-325mg Tab PO 1 tab Q6H PRN Administration Pain, Moderate (4-6) Quetiapine Fumarate 50 mg 06/15/21 22:00 06/17/21 22:33 Quetiapine 25 Mg Tab PO 50 mg QHS LEONOR Administration Sodium Bicarbonate 650 mg 06/10/21 14:00 06/17/21 22:33 Sodium Bicarbonate 650 Mg Tab PO 650 mg TID LEONOR Administration Sodium Chloride 10 ml 06/07/21 22:00 06/17/21 22:34 Sodium Chloride 0.9% 10 Ml Flush Syringe IV 10 ml BID LEONOR Administration Sodium Chloride 10 ml 06/07/21 21:41 Sodium Chloride 0.9% 10 Ml Flush Syringe IV PRN PRN LINE FLUSH Nutrition/Malnutrition Assess - Dietary Evaluation Nutrition/Malnutrition Findings: Nutrition Notes Start: 06/08/21 10:56 Freq: Status: Active Protocol: Document 06/14/21 14:24 GB (Rec: 06/14/21 14:30 GB [id number]) Nutrition Notes Initial or Follow up Reassessment Current Diagnosis Acute Kidney Injury,Diabetes, Sepsis,Hypertension, Respiratory Failure Other Pertinent Diagnosis COVID-19 PUI, hypothyroid Current Diet consistent CHO/cardiac, pureed texture Labs/Tests 06/14: Na 152, BUN 68, Creatinine 2.5, glucose 188, Mg 2.4 Pertinent Medications Zofran NS at 10 ml/hr Height 5 ft 11 in Weight 164 kg [place] Body Weight (kg) 70.45 BMI 50.4 Weight change and time frame No significant changes reported. Stable. Weight Status Morbidly Obese Subjective/Other Information Per chart nursing staff recorded PO intake of meals as 100%. Supplement beverages glucerna have been d/c'd. Percent of energy/protein needs met: PO intake of meals 100% TID meets 75% or greater of estimated energy needs. Burn Absent Trauma Absent GI Symptoms None Difficulty In Swallowing,Chewing Food Allergy Yes Current % PO Good (75-100%) Minimum of two criteria No #1 Nutrition Diagnosis Predicted suboptimal energy intake Comments: PO intake of meals recorded currently for one day at 25%, independent with meals. 06/14: PO intake of meals recorded as 100% x2days. Etiology ARF As Evidenced by Signs and Symptoms pt on bipap Diagnosis Progress(for reassessment Improved documentation) Is patient on ventilator? No Is Patient Ambulatory and/or Out of Bed No REE-([facility]-confined to bed) 2771.148 Kcal/Kg value to use for calculation 12 Approximate Energy Requirements Using 1968 kcal/Kg Calculation Used for Recommendations Kcal/kg Additional Notes Protein: (0.8-1g/kg AdjBW) 94- 117g/day Fluid: 1 ml/kcal Nutrition Intervention Change Diet Order: Continue Add Supplement/Snack (indicate name/kcal n/a - history of pt not liking /protein ) nutrition supplement beverages Goal #1 PO intake of meals to improve to 50% or greater TID daily during LOS 06/14: met, PO intake recorded as 100%, continues Goal #2 Weight to maintain within =/-3 % current weight during LOS 06/14: met, continues Follow-Up By: 06/21/21 Additional Comments Nursing continue to record Meal intake.
[2021-06-18 11:09] LABS: Calcium 8.6 mg/dL (8.4-10.2)
[2021-06-18] MEDS: carvediloL 6.25 MG TAB PO SCH ×2 (11:28→23:50)
[2021-06-18] MEDS: APIXABAN 5 MG TAB PO SCH ×2 (11:28→23:49)
[2021-06-18] MEDS: SODIUM BICARBONATE 650 MG TAB PO SCH ×3 (11:29→23:49)
--- NOTE | 2021-06-18 11:49 | Progress Note ---
Assessment and Plan Assessment and Plan COVID-19 breakthrough infection COVID-19 pneumonia Acute renal failure versus acute on chronic renal failure Acute hypoxic respiratory failure Insulin-dependent type 2 diabetes- uncontrolled Elevated troponin Hypertension-controlled Hypothyroidism Protein calorie malnutrition Hypernatremia Plan Renal function reviewed, SCR level was 1.8 today, yesterday's SCr level was 1.8 Renal US was negative for hydronephrosis Serum Na level was 145 today, yesterday's serum Na level was 148 On D5W infusion at 150 ml/hr Renally dose medications Strict I&O's daily Renal plan reviewed by Dr Schultz Subjective Date of service: 06/18/21 Principal diagnosis: TREMAINE Interval history: Pt on isolation for covid-19, reviewed medical chart, labs, and notes Objective - Vital Signs Vital signs: Vital Signs - 12hr 06/18/21 06/18/21 06:16 11:27 Pulse Rate 85 Blood Pressure 138/79 O2 Sat by Pulse 95 100 Oximetry - Lab 06/17/21 09:35 06/18/21 10:10 Most recent lab results ABG pH 7.318 pH Units (7.350-7.450) L 06/12/21 04:22 ABG pCO2 40.1 mm Hg 06/12/21 04:22 ABG pO2 51.5 mm Hg (80.0-90.0) L 06/12/21 04:22 ABG HCO3 20.1 mmol/L (20.0-26.0) 06/12/21 04:22 ABG O2 Saturation 86.9 % (95.0-99.0) L 06/12/21 04:22 Calcium 8.6 mg/dL (8.4-10.2) 06/18/21 10:10 Phosphorus 3.30 mg/dL (2.5-4.5) 06/14/21 04:42 Magnesium 2.40 mg/dL (1.7-2.3) H 06/14/21 04:42 Medications & Allergies - Medications Allergies/Adverse Reactions: Allergies latex Allergy (Verified 03/19/19 17:03) Unknown shellfish derived Allergy (Verified 03/19/19 17:03) Anaphylaxis strawberry Allergy (Verified 03/19/19 17:03) Anaphylaxis tomato Allergy (Verified 03/19/19 17:03) Anaphylaxis nuts Allergy (Uncoded 03/19/19 17:03) Anaphylaxis Home Medications: Home Medications Medication Instructions Recorded Confirmed Last Taken Type Albuterol Sulfate [Ventolin HFA] 2 puff IH Q4H PRN 01/29/14 06/11/21 02/01/15 History Levothyroxine (Nf) [Synthroid (Nf)] 275 mcg PO QAM 01/29/14 06/11/21 02/01/15 Hi story Fluticasone/Salmeterol [Advair 1 each IH PRN PRN 01/26/15 06/11/21 02/02/15 10:00 History Diskus 250-50 mcg] Apixaban [Eliquis starter pack] 5 mg PO BID 09/13/19 06/11/21 Unknown History Insulin Aspart Prot/Insuln Asp 45 unit SUB-Q QAM 09/13/19 06/11/21 Unknown History [Novolog Mix 70-30 Flexpen] Insulin Glargine,Hum.rec.anlog 25 unit SQ HS 09/13/19 06/11/21 Unknown History [Basaglar Kwikpen U-100] Lovastatin [Altoprev] 20 mg PO DAILY 09/13/19 06/11/21 Unknown History Docusate Sodium [Colace CAP] 100 mg PO BID PRN #30 capsule 09/17/19 06/11/21 Unknown Rx Loratadine/Pseudoephedrine 1 each PO Q24HR #10 tablet 09/17/19 06/11/21 Unknown Rx [Claritin-D 24HR] Ondansetron [Zofran Odt] 4 mg PO Q8HR #20 tab.rapdis 09/17/19 06/11/21 Unknown Rx carvediloL [Coreg] 3.125 mg PO BID #60 tablet 09/17/19 06/11/21 Unknown Rx hydrALAZINE [Apresoline TAB] 25 mg PO Q8HR #90 tablet 09/17/19 06/11/21 Unknown Rx Active Medications: Generic Name Dose Route Start Last Admin Trade Name Freq PRN Reason Stop Dose Admin Acetaminophen 650 mg 06/07/21 21:41 Acetaminophen 325 Mg Tab PO Q4H PRN Pain MILD(1-3)/Fever >100.5/MARTÍNEZ Albuterol 2 puff 06/07/21 23:00 Albuterol 8.5 Gm Mdi Inhalation IH Q4HRT PRN Shortness Of Breath Alprazolam 0.5 mg 06/15/21 04:58 06/15/21 05:33 Alprazolam 0.5 Mg Tab PO 0.5 mg Q8H PRN Administration Anxiety Apixaban 5 mg 06/08/21 10:00 06/18/21 11:28 Apixaban 5 Mg Tab PO 5 mg BID LEONOR Administration Atorvastatin Calcium 10 mg 06/08/21 10:00 06/18/21 11:29 Atorvastatin 10 Mg Tab PO 10 mg DAILY LEONOR Administration Carvedilol 6.25 mg 06/15/21 22:00 06/18/21 11:28 Carvedilol 6.25 Mg Tab PO 6.25 mg BID LEONOR Administration Dextrose 50 ml 06/08/21 12:04 Dextrose 50% In Water (25gm) 50 Ml Syringe IV Q30MIN PRN Hypoglycemia Protocol Docusate Sodium 100 mg 06/07/21 21:33 Docusate Sodium 100 Mg Cap PO BID PRN Constipation Famotidine 10 mg 06/14/21 22:00 06/18/21 01:00 Famotidine 10 Mg Tab PO 10 mg BID LEONOR Administration Guaifenesin 10 ml 06/09/21 00:15 06/11/21 06:12 Guaifenesin Dm 200/20 Mg Oral Liqd 10 Ml PO 10 ml Q4H PRN Administration Cough Hydralazine HCl 25 mg 06/07/21 22:00 06/18/21 07:38 Hydralazine 25 Mg Tab PO 25 mg Q8HR LEONOR Administration Hydromorphone HCl 0.5 mg 06/07/21 21:41 Hydromorphone 1 Mg/1 Ml Inj IV Q3H PRN Pain , Severe (7-10) Hydromorphone HCl 0.25 mg 06/07/21 22:33 Hydromorphone 1 Mg/1 Ml Inj IV Q4H PRN Pain, Moderate (4-6) Hydrophilic Ointment 1 applic 06/13/21 07:30 Lip Therapy Vaseline TP DIRECT PRN Dry Lips Dextrose 1,000 mls @ 150 mls/hr 06/14/21 10:00 06/18/21 01:02 D5w IV 125 mls/hr DIRECT LEONOR Administration Insulin Human Isoph/Insulin Regular 34 unit 06/17/21 17:00 06/17/21 17:22 Insulin Nph/Regular 70/30 Inj SUB-Q 34 unit BIDDIAB LEONOR Administration Insulin Human Regular 0 units 06/08/21 12:15 06/17/21 22:33 Insulin Regular, Human 100 Units/1 Ml SUB-Q Not Given ACHS [facility] Protocol Levothyroxine Sodium 75 mcg 06/08/21 06:00 06/18/21 06:47 Levothyroxine 75 Mcg Tab PO 75 mcg QAM@0600 LEONOR Administration Levothyroxine Sodium 200 mcg 06/08/21 06:00 06/18/21 06:48 Levothyroxine 100 Mcg Tab PO 200 mcg DAILY@0600 LEONOR Administration Loratadine/Pseudoephedrine Sulfate 1 each 06/08/21 10:00 06/17/21 09:21 Loratadine/Pseudoephedrine 10-240 Mg Tab 24hr PO 1 each Q24HR LEONOR Administration Ondansetron HCl 4 mg 06/07/21 22:00 06/18/21 06:47 Ondansetron 4 Mg Odt Tab PO 4 mg Q8HR LEONOR Administration Ondansetron HCl 4 mg 06/07/21 21:41 06/10/21 06:24 Ondansetron 4 Mg/2 Ml Inj IV 4 mg Q8H PRN Administration Nausea And Vomiting Oxycodone/Acetaminophen 1 tab 06/07/21 21:41 06/09/21 17:05 Oxycodone /Acetaminophen 5-325mg Tab PO 1 tab Q6H PRN Administration Pain, Moderate (4-6) Quetiapine Fumarate 50 mg 06/15/21 22:00 06/17/21 22:33 Quetiapine 25 Mg Tab PO 50 mg QHS LEONOR Administration Sodium Bicarbonate 650 mg 06/10/21 14:00 06/18/21 11:29 Sodium Bicarbonate 650 Mg Tab PO 650 mg TID LEONOR Administration Sodium Chloride 10 ml 06/07/21 22:00 06/18/21 11:29 Sodium Chloride 0.9% 10 Ml Flush Syringe IV 10 ml BID LEONOR Administration Sodium Chloride 10 ml 06/07/21 21:41 Sodium Chloride 0.9% 10 Ml Flush Syringe IV PRN PRN LINE FLUSH
--- NOTE | 2021-06-18 12:39 | Progress Note ---
Assessment and Plan This is 61-year-old female, Morbidly Obese admitted with shortness of breath that has been ongoing for several days. She had been around family that had been sick with coronavirus symptoms. Patient said she has been vaccinated for COVID-19. She denies vomiting and diarrhea. Reported generalized weakness and difficulty breathing. She has had subjective fevers and chills associate with a cough. Cough has been producing yellowish phlegm. Patient has history of diabetes, Hypertension,Hyperlipidemia and hypothyroidism and CKD. Denies smoking, alcohol or drug abuse. 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 Patient and has no children. Patient sleeping and still on vapotherm, FIO2 100% and O2 saturation running 93%. BIPAP stand by in the room. Patient Sleeping. Patient still on vapotherm,and O2 requirments came down to 50% and O2 saturation reported 100%. BIPAP stand by in the room. Patients ABGs 06/12/21 reported PH 7.31, UWS970, PO2 52, HCO3 20, O2 saturation 87% on 100% FIO2 Patient afebrile and has no leukocytosis. Patients blood pressure 138/79. Pulse 85 Chest xray that was done 06/07/21 reported Multifocal pneumonia. Patients Repeat Holden virus PCR reported Positive. Patient is on Apixaban, and Famotidine and albuterol inhaler. - Patient Problems (1) Acute respiratory failure with hypoxia Current Visit: Yes Status: Acute Plan to address problem: Patient is on Vapotherm, FIO2 50% Patient Finished course of Dexamethasone. Patient is on Apixaban. Continue famotidine. (2) Coronavirus infection Current Visit: Yes Status: Acute Plan to address problem: Patientfinished course of dexamethasone Apixaban Management as per infectious diseases. (3) Pneumonia due to COVID-19 virus Current Visit: Yes Status: Acute Plan to address problem: Patient was on Ceftriaxone. (4) Acute kidney injury superimposed on CKD Current Visit: No Status: Acute Plan to address problem: Management as per nephrology. (5) Hypertension Current Visit: No Status: Acute Plan to address problem: Management as per primary care. (6) Diabetes mellitus type 2, insulin dependent Current Visit: No Status: Chronic Plan to address problem: Management as per primary care. (7) Hypothyroidism Current Visit: No Status: Chronic Plan to address problem: Patient is on Levothyroxine. Management as per primary care. (8) Morbid obesity Current Visit: No Status: Chronic Plan to address problem: Recommend to loose weight. Diet and exercise. Recommend sleep study as out patient once she recovered from present problem. Subjective Date of service: 06/18/21 Principal diagnosis: TREMAINE Interval history: This is 61-year-old female, Morbidly Obese admitted with shortness of breath that has been ongoing for several days. She had been around family that had been sick with coronavirus symptoms. Patient said she has been vaccinated for COVID- 19. She denies vomiting and diarrhea. Reported generalized weakness and difficulty breathing. She has had subjective fevers and chills associate with a cough. Cough has been producing yellowish phlegm. Patient has history of diabetes, Hypertension,Hyperlipidemia and hypothyroidism and CKD. Denies smoking, alcohol or drug abuse. 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 Patient Sleeping. Patient still on vapotherm,and O2 requirments came down to 50% and O2 saturation reported 100%. BIPAP stand by in the room. Patients ABGs 06/12/21 reported PH 7.31, [id number], PO2 52, HCO3 20, O2 saturation 87% on 100% FIO2 Patient afebrile and has no leukocytosis. Patients blood pressure 138/79. Pulse 85 Chest xray that was done 06/07/21 reported Multifocal pneumonia. Patients Repeat Holden virus PCR reported Positive. Patient is on Apixaban, and Famotidine and albuterol inhaler. Objective Vital Signs - 12hr 06/18/21 06/18/21 06:16 11:27 Pulse Rate 85 Blood Pressure 138/79 O2 Sat by Pulse 95 100 Oximetry Constitutional: no acute distress, asleep, other (Morbidly Obese, On Vapotherm 50%.) Eyes: non-icteric ENT: oropharynx moist Neck: supple, no lymphadenopathy Effort: mildly labored Ascultation: Bilateral: diminished breath sounds, rhonchi Cardiovascular: regular rate and rhythm Gastrointestinal: normoactive bowel sounds, soft, non-tender Integumentary: normal Extremities: no cyanosis, no edema Neurologic: normal mental status, non-focal exam, pupils equal and round, CN II- XII normal Psychiatric: mood appropriate, affect normal CBC and BMP: 06/17/21 09:35 06/18/21 10:10 ABG, PT/INR, D-dimer: ABG ABG pH 7.318 pH Units (7.350-7.450) L 06/12/21 04:22 POC ABG pCO2 34.2 mmHg (32.0-48.0) 06/09/21 12:19 ABG pCO2 40.1 mm Hg 06/12/21 04:22 POC ABG pO2 71.4 mmHg (83-108) L 06/09/21 12:19 ABG pO2 51.5 mm Hg (80.0-90.0) L 06/12/21 04:22 POC ABG HCO3 20.5 06/09/21 12:19 ABG O2 Saturation 86.9 % (95.0-99.0) L 06/12/21 04:22 PT/INR, D-dimer D-Dimer 9804.08 ng/mlDDU (0-234) H 06/18/21 06:00 Abnormal lab findings: Abnormal Labs 06/07/21 06/07/21 06/07/21 19:11 19:11 19:11 WBC 11.5 H RBC Hgb Hct RDW Plt Count Lymph % (Auto) 6.5 L Lymph # (Auto) 0.8 L Seg Neutrophils % 89.9 H Seg Neuts % (Manual) Lymphocytes % (Manual) Nucleated RBC % Seg Neutrophils # 10.4 H Seg Neutrophils # Man Lymphocytes # (Manual) D-Dimer 5334.05 H ABG pH POC ABG pO2 ABG pO2 ABG O2 Saturation ABG Base Excess ABG Oxyhemoglobin ABG Chloride ABG Glucose Oxyhemoglobin Carboxyhemoglobin Sodium Potassium Chloride Carbon Dioxide BUN 67 H Creatinine 4.8 H Glucose 244 H POC Glucose Hemoglobin A1c Calcium Magnesium Ferritin Lactate Dehydrogenase 796 H Troponin T 0.043 H C-Reactive Protein 19.60 H Total Protein 8.4 H Albumin 3.1 L Bikby-8-Yfuldywgv Kvlxt-3-Byslpiist Beta Globulins PEP Interpretation Triglycerides 209 H HDL Cholesterol 35 L Arterial Blood Glucose Coronavirus (PCR) 06/07/21 06/07/21 06/08/21 19:11 19:11 03:04 WBC RBC Hgb Hct RDW Plt Count Lymph % (Auto) Lymph # (Auto) Seg Neutrophils % Seg Neuts % (Manual) Lymphocytes % (Manual) Nucleated RBC % Seg Neutrophils # Seg Neutrophils # Man Lymphocytes # (Manual) D-Dimer ABG pH POC ABG pO2 ABG pO2 ABG O2 Saturation ABG Base Excess ABG Oxyhemoglobin ABG Chloride ABG Glucose Oxyhemoglobin Carboxyhemoglobin Sodium Potassium Chloride Carbon Dioxide BUN Creatinine Glucose POC Glucose Hemoglobin A1c 9.5 H Calcium Magnesium Ferritin 1230.0 H Lactate Dehydrogenase Troponin T 0.031 H D C-Reactive Protein Total Protein Albumin Vfvyd-7-Nujbgwply Kpoyp-9-Vnfdfqqkn Beta Globulins PEP Interpretation Triglycerides HDL Cholesterol Arterial Blood Glucose Coronavirus (PCR) 06/08/21 06/08/21 06/08/21 03:44 03:44 08:21 WBC 12.9 H RBC Hgb Hct RDW Plt Count Lymph % (Auto) Lymph # (Auto) Seg Neutrophils % Seg Neuts % (Manual) 95.0 H Lymphocytes % (Manual) 3.0 L Nucleated RBC % Seg Neutrophils # Seg Neutrophils # Man 12.3 H Lymphocytes # (Manual) 0.4 L D-Dimer ABG pH POC ABG pO2 ABG pO2 ABG O2 Saturation ABG Base Excess ABG Oxyhemoglobin ABG Chloride ABG Glucose Oxyhemoglobin Carboxyhemoglobin Sodium Potassium Chloride Carbon Dioxide 20 L D BUN 68 H Creatinine 4.7 H Glucose 218 H POC Glucose 273 H Hemoglobin A1c Calcium Magnesium Ferritin Lactate Dehydrogenase Troponin T C-Reactive Protein Total Protein Albumin 3.4 L Jyqit-7-Tvvoggdfr Ambhf-1-Ylfapnlju Beta Globulins PEP Interpretation Triglycerides HDL Cholesterol Arterial Blood Glucose Coronavirus (PCR) 06/08/21 06/08/21 06/08/21 08:30 11:00 17:29 WBC RBC Hgb Hct RDW Plt Count Lymph % (Auto) Lymph # (Auto) Seg Neutrophils % Seg Neuts % (Manual) Lymphocytes % (Manual) Nucleated RBC % Seg Neutrophils # Seg Neutrophils # Man Lymphocytes # (Manual) D-Dimer ABG pH POC ABG pO2 ABG pO2 ABG O2 Saturation ABG Base Excess ABG Oxyhemoglobin ABG Chloride ABG Glucose Oxyhemoglobin Carboxyhemoglobin Sodium Potassium Chloride Carbon Dioxide BUN Creatinine Glucose POC Glucose 239 H 220 H Hemoglobin A1c Calcium Magnesium Ferritin Lactate Dehydrogenase Troponin T C-Reactive Protein Total Protein Albumin Ttnrh-4-Nspkvgwtg Oshcm-8-Aubevvlvb Beta Globulins PEP Interpretation Triglycerides HDL Cholesterol Arterial Blood Glucose Coronavirus (PCR) Positive A 06/08/21 06/09/21 06/09/21 21:09 08:07 08:42 WBC 14.7 H RBC 5.28 H Hgb 14.9 H Hct 45.0 H D RDW Plt Count Lymph % (Auto) 4.9 L Lymph # (Auto) 0.7 L Seg Neutrophils % 90.0 H Seg Neuts % (Manual) Lymphocytes % (Manual) Nucleated RBC % Seg Neutrophils # 13.2 H Seg Neutrophils # Man Lymphocytes # (Manual) D-Dimer ABG pH POC ABG pO2 ABG pO2 ABG O2 Saturation ABG Base Excess ABG Oxyhemoglobin ABG Chloride ABG Glucose Oxyhemoglobin Carboxyhemoglobin Sodium Potassium Chloride Carbon Dioxide BUN Creatinine Glucose POC Glucose 242 H 230 H Hemoglobin A1c Calcium Magnesium Ferritin Lactate Dehydrogenase Troponin T C-Reactive Protein Total Protein Albumin Mbfzr-3-Lxqqrvadv Guetv-1-Emisnches Beta Globulins PEP Interpretation Triglycerides HDL Cholesterol Arterial Blood Glucose Coronavirus (PCR) 06/09/21 06/09/21 06/09/21 08:42 12:05 12:19 WBC RBC Hgb Hct RDW Plt Count Lymph % (Auto) Lymph # (Auto) Seg Neutrophils % Seg Neuts % (Manual) Lymphocytes % (Manual) Nucleated RBC % Seg Neutrophils # Seg Neutrophils # Man Lymphocytes # (Manual) D-Dimer ABG pH POC ABG pO2 71.4 L ABG pO2 ABG O2 Saturation ABG Base Excess ABG Oxyhemoglobin 92.9 L ABG Chloride 109.0 H ABG Glucose 287 H Oxyhemoglobin Carboxyhemoglobin 0.4 L Sodium Potassium Chloride Carbon Dioxide 17 L BUN 74 H Creatinine 3.7 H Glucose 259 H POC Glucose 274 H Hemoglobin A1c Calcium 8.3 L Magnesium Ferritin Lactate Dehydrogenase Troponin T C-Reactive Protein Total Protein Albumin Mictw-7-Kdrjbacpe Bvemm-3-Gkryghhaw Beta Globulins PEP Interpretation Triglycerides HDL Cholesterol Arterial Blood Glucose 287 H Coronavirus (PCR) 06/09/21 06/09/21 06/10/21 16:59 21:06 08:25 WBC RBC Hgb Hct RDW Plt Count Lymph % (Auto) Lymph # (Auto) Seg Neutrophils % Seg Neuts % (Manual) Lymphocytes % (Manual) Nucleated RBC % Seg Neutrophils # Seg Neutrophils # Man Lymphocytes # (Manual) D-Dimer ABG pH POC ABG pO2 ABG pO2 ABG O2 Saturation ABG Base Excess ABG Oxyhemoglobin ABG Chloride ABG Glucose Oxyhemoglobin Carboxyhemoglobin Sodium Potassium Chloride Carbon Dioxide BUN Creatinine Glucose POC Glucose 268 H 263 H 280 H Hemoglobin A1c Calcium Magnesium Ferritin Lactate Dehydrogenase Troponin T C-Reactive Protein Total Protein Albumin Jkxlx-4-Mglqumlwc Jaiur-9-Jtccsdoeo Beta Globulins PEP Interpretation Triglycerides HDL Cholesterol Arterial Blood Glucose Coronavirus (PCR) 06/10/21 06/10/21 06/10/21 12:07 15:38 21:04 WBC RBC Hgb Hct RDW Plt Count Lymph % (Auto) Lymph # (Auto) Seg Neutrophils % Seg Neuts % (Manual) Lymphocytes % (Manual) Nucleated RBC % Seg Neutrophils # Seg Neutrophils # Man Lymphocytes # (Manual) D-Dimer ABG pH POC ABG pO2 ABG pO2 ABG O2 Saturation ABG Base Excess ABG Oxyhemoglobin ABG Chloride ABG Glucose Oxyhemoglobin Carboxyhemoglobin Sodium Potassium Chloride Carbon Dioxide BUN Creatinine Glucose POC Glucose 247 H 269 H 195 H Hemoglobin A1c Calcium Magnesium Ferritin Lactate Dehydrogenase Troponin T C-Reactive Protein Total Protein Albumin Ruxdc-6-Tqzjkfrjl Egcqe-5-Rbuiyceaf Beta Globulins PEP Interpretation Triglycerides HDL Cholesterol Arterial Blood Glucose Coronavirus (PCR) 06/10/21 06/10/21 06/10/21 23:14 23:14 23:14 WBC RBC Hgb Hct RDW 15.3 H Plt Count Lymph % (Auto) Lymph # (Auto) Seg Neutrophils % Seg Neuts % (Manual) 93.0 H Lymphocytes % (Manual) 2.0 L Nucleated RBC % 3.0 H Seg Neutrophils # Seg Neutrophils # Man 10.2 H Lymphocytes # (Manual) 0.2 L D-Dimer ABG pH POC ABG pO2 ABG pO2 ABG O2 Saturation ABG Base Excess ABG Oxyhemoglobin ABG Chloride ABG Glucose Oxyhemoglobin Carboxyhemoglobin Sodium 148 H D Potassium Chloride 111.7 H Carbon Dioxide 20 L BUN 70 H Creatinine 3.2 H Glucose 186 H POC Glucose Hemoglobin A1c Calcium Magnesium Ferritin Lactate Dehydrogenase Troponin T C-Reactive Protein Total Protein Albumin 2.6 L Ufjsc-7-Fsqrgzivn 0.5 H Gnmov-1-Dldaeoicl 1.7 H Beta Globulins 0.6 H PEP Interpretation see below H Triglycerides HDL Cholesterol Arterial Blood Glucose Coronavirus (PCR) 06/10/21 06/10/21 06/10/21 23:14 23:14 23:14 WBC RBC Hgb Hct RDW Plt Count Lymph % (Auto) Lymph # (Auto) Seg Neutrophils % Seg Neuts % (Manual) Lymphocytes % (Manual) Nucleated RBC % Seg Neutrophils # Seg Neutrophils # Man Lymphocytes # (Manual) D-Dimer > 70111 H ABG pH POC ABG pO2 ABG pO2 ABG O2 Saturation ABG Base Excess ABG Oxyhemoglobin ABG Chloride ABG Glucose Oxyhemoglobin Carboxyhemoglobin Sodium Potassium Chloride Carbon Dioxide BUN Creatinine Glucose POC Glucose Hemoglobin A1c Calcium Magnesium 2.50 H Ferritin 1319.0 H Lactate Dehydrogenase 606 H Troponin T C-Reactive Protein Total Protein Albumin Yozpb-6-Kgxqwhlin Amlrx-7-Uozmdrabf Beta Globulins PEP Interpretation Triglycerides HDL Cholesterol Arterial Blood Glucose Coronavirus (PCR) 06/11/21 06/11/21 06/11/21 07:34 10:57 10:57 WBC RBC Hgb Hct RDW Plt Count Lymph % (Auto) Lymph # (Auto) Seg Neutrophils % Seg Neuts % (Manual) Lymphocytes % (Manual) Nucleated RBC % Seg Neutrophils # Seg Neutrophils # Man Lymphocytes # (Manual) D-Dimer > 32785 H ABG pH POC ABG pO2 ABG pO2 ABG O2 Saturation ABG Base Excess ABG Oxyhemoglobin ABG Chloride ABG Glucose Oxyhemoglobin Carboxyhemoglobin Sodium Potassium Chloride Carbon Dioxide BUN Creatinine Glucose POC Glucose 169 H Hemoglobin A1c Calcium Magnesium Ferritin 1300.0 H Lactate Dehydrogenase Troponin T C-Reactive Protein Total Protein Albumin Kbvfj-0-Wnnulxomt Boatc-9-Kmigihskz Beta Globulins PEP Interpretation Triglycerides HDL Cholesterol Arterial Blood Glucose Coronavirus (PCR) 06/11/21 06/11/21 06/11/21 10:58 10:58 11:49 WBC 11.3 H RBC Hgb Hct RDW 15.3 H Plt Count Lymph % (Auto) Lymph # (Auto) Seg Neutrophils % Seg Neuts % (Manual) 88.0 H Lymphocytes % (Manual) 6.0 L Nucleated RBC % Seg Neutrophils # Seg Neutrophils # Man 9.9 H Lymphocytes # (Manual) 0.7 L D-Dimer ABG pH POC ABG pO2 ABG pO2 ABG O2 Saturation ABG Base Excess ABG Oxyhemoglobin ABG Chloride ABG Glucose Oxyhemoglobin Carboxyhemoglobin Sodium 150 H Potassium 3.4 L Chloride 114.8 H Carbon Dioxide 21 L BUN 65 H Creatinine 2.9 H Glucose 180 H POC Glucose 191 H Hemoglobin A1c Calcium Magnesium 2.50 H Ferritin Lactate Dehydrogenase Troponin T C-Reactive Protein 1.90 H Total Protein Albumin Dhexz-8-Pydxxndfj Mnlpn-1-Dpnhafrfa Beta Globulins PEP Interpretation Triglycerides HDL Cholesterol Arterial Blood Glucose Coronavirus (PCR) 06/11/21 06/11/21 06/12/21 15:49 21:16 04:22 WBC RBC Hgb Hct RDW Plt Count Lymph % (Auto) Lymph # (Auto) Seg Neutrophils % Seg Neuts % (Manual) Lymphocytes % (Manual) Nucleated RBC % Seg Neutrophils # Seg Neutrophils # Man Lymphocytes # (Manual) D-Dimer ABG pH 7.318 L POC ABG pO2 ABG pO2 51.5 L ABG O2 Saturation 86.9 L ABG Base Excess -5.6 L ABG Oxyhemoglobin ABG Chloride ABG Glucose Oxyhemoglobin 85.5 L Carboxyhemoglobin Sodium Potassium Chloride Carbon Dioxide BUN Creatinine Glucose POC Glucose 185 H 200 H Hemoglobin A1c Calcium Magnesium Ferritin Lactate Dehydrogenase Troponin T C-Reactive Protein Total Protein Albumin Wajpr-4-Vbwlmnnij Gktca-9-Krgqtlsvq Beta Globulins PEP Interpretation Triglycerides HDL Cholesterol Arterial Blood Glucose Coronavirus (PCR) 06/12/21 06/12/21 06/12/21 07:41 08:31 08:31 WBC 12.4 H RBC Hgb Hct RDW 15.3 H Plt Count Lymph % (Auto) 8.5 L Lymph # (Auto) 1.1 L Seg Neutrophils % 88.1 H Seg Neuts % (Manual) Lymphocytes % (Manual) Nucleated RBC % Seg Neutrophils # 10.9 H Seg Neutrophils # Man Lymphocytes # (Manual) D-Dimer ABG pH POC ABG pO2 ABG pO2 ABG O2 Saturation ABG Base Excess ABG Oxyhemoglobin ABG Chloride ABG Glucose Oxyhemoglobin Carboxyhemoglobin Sodium 151 H Potassium Chloride 117.3 H Carbon Dioxide 21 L BUN 61 H Creatinine 2.5 H Glucose 165 H POC Glucose 165 H Hemoglobin A1c Calcium 8.3 L Magnesium Ferritin Lactate Dehydrogenase Troponin T C-Reactive Protein Total Protein Albumin Cizdg-5-Pyfdjzojq Ptrhw-5-Atueyjjdq Beta Globulins PEP Interpretation Triglycerides HDL Cholesterol Arterial Blood Glucose Coronavirus (PCR) 06/12/21 06/12/21 06/12/21 08:31 10:32 15:47 WBC RBC Hgb Hct RDW Plt Count Lymph % (Auto) Lymph # (Auto) Seg Neutrophils % Seg Neuts % (Manual) Lymphocytes % (Manual) Nucleated RBC % Seg Neutrophils # Seg Neutrophils # Man Lymphocytes # (Manual) D-Dimer ABG pH POC ABG pO2 ABG pO2 ABG O2 Saturation ABG Base Excess ABG Oxyhemoglobin ABG Chloride ABG Glucose Oxyhemoglobin Carboxyhemoglobin Sodium Potassium Chloride Carbon Dioxide BUN Creatinine Glucose POC Glucose 156 H 176 H Hemoglobin A1c Calcium Magnesium 2.50 H Ferritin Lactate Dehydrogenase Troponin T C-Reactive Protein Total Protein Albumin Ugafj-6-Vfpjxjrtg Exzni-8-Exhydlgkw Beta Globulins PEP Interpretation Triglycerides HDL Cholesterol Arterial Blood Glucose Coronavirus (PCR) 06/12/21 06/13/21 06/13/21 21:50 07:42 07:42 WBC 14.1 H RBC Hgb Hct RDW 15.3 H Plt Count Lymph % (Auto) Lymph # (Auto) Seg Neutrophils % Seg Neuts % (Manual) 87.0 H Lymphocytes % (Manual) 7.0 L Nucleated RBC % 3.0 H Seg Neutrophils # Seg Neutrophils # Man 12.3 H Lymphocytes # (Manual) 1.0 L D-Dimer ABG pH POC ABG pO2 ABG pO2 ABG O2 Saturation ABG Base Excess ABG Oxyhemoglobin ABG Chloride ABG Glucose Oxyhemoglobin Carboxyhemoglobin Sodium 151 H Potassium 3.5 L Chloride 116.0 H Carbon Dioxide BUN 61 H Creatinine 2.3 H Glucose 135 H POC Glucose 165 H Hemoglobin A1c Calcium Magnesium 2.50 H Ferritin Lactate Dehydrogenase Troponin T C-Reactive Protein Total Protein Albumin Ozwhv-3-Pjuzqvefe Pibaj-5-Bdsmxcvzn Beta Globulins PEP Interpretation Triglycerides HDL Cholesterol Arterial Blood Glucose Coronavirus (PCR) 06/13/21 06/13/21 06/13/21 08:10 11:10 18:15 WBC RBC Hgb Hct RDW Plt Count Lymph % (Auto) Lymph # (Auto) Seg Neutrophils % Seg Neuts % (Manual) Lymphocytes % (Manual) Nucleated RBC % Seg Neutrophils # Seg Neutrophils # Man Lymphocytes # (Manual) D-Dimer ABG pH POC ABG pO2 ABG pO2 ABG O2 Saturation ABG Base Excess ABG Oxyhemoglobin ABG Chloride ABG Glucose Oxyhemoglobin Carboxyhemoglobin Sodium Potassium Chloride Carbon Dioxide BUN Creatinine Glucose POC Glucose 118 H 139 H 179 H Hemoglobin A1c Calcium Magnesium Ferritin Lactate Dehydrogenase Troponin T C-Reactive Protein Total Protein Albumin Frzza-6-Xeacpkgin Ftxss-1-Qhtolyzvp Beta Globulins PEP Interpretation Triglycerides HDL Cholesterol Arterial Blood Glucose Coronavirus (PCR) 06/13/21 06/13/21 06/14/21 21:54 23:27 04:42 WBC 12.8 H RBC Hgb Hct RDW 15.3 H Plt Count Lymph % (Auto) Lymph # (Auto) Seg Neutrophils % Seg Neuts % (Manual) 92.0 H Lymphocytes % (Manual) 1.0 L Nucleated RBC % 2.0 H Seg Neutrophils # Seg Neutrophils # Man 11.8 H Lymphocytes # (Manual) 0.1 L D-Dimer ABG pH POC ABG pO2 ABG pO2 ABG O2 Saturation ABG Base Excess ABG Oxyhemoglobin ABG Chloride ABG Glucose Oxyhemoglobin Carboxyhemoglobin Sodium 152 H Potassium Chloride 116.3 H Carbon Dioxide 21 L BUN 67 H Creatinine 2.5 H Glucose 212 H POC Glucose 193 H Hemoglobin A1c Calcium Magnesium Ferritin Lactate Dehydrogenase Troponin T C-Reactive Protein Total Protein Albumin Mjswb-8-Ehkpftbrf Unptn-5-Ovqufiwke Beta Globulins PEP Interpretation Triglycerides HDL Cholesterol Arterial Blood Glucose Coronavirus (PCR) 06/14/21 06/14/21 06/14/21 04:42 04:42 07:33 WBC RBC Hgb Hct RDW Plt Count Lymph % (Auto) Lymph # (Auto) Seg Neutrophils % Seg Neuts % (Manual) Lymphocytes % (Manual) Nucleated RBC % Seg Neutrophils # Seg Neutrophils # Man Lymphocytes # (Manual) D-Dimer ABG pH POC ABG pO2 ABG pO2 ABG O2 Saturation ABG Base Excess ABG Oxyhemoglobin ABG Chloride ABG Glucose Oxyhemoglobin Carboxyhemoglobin Sodium 152 H Potassium Chloride 115.3 H Carbon Dioxide BUN 68 H Creatinine 2.5 H Glucose 188 H POC Glucose 173 H Hemoglobin A1c Calcium Magnesium 2.40 H Ferritin Lactate Dehydrogenase Troponin T C-Reactive Protein Total Protein Albumin Hgkzm-6-Hjcopatne Ndufi-3-Zyjoboqlg Beta Globulins PEP Interpretation Triglycerides HDL Cholesterol Arterial Blood Glucose Coronavirus (PCR) 06/14/21 06/14/21 06/14/21 10:57 15:53 23:40 WBC RBC Hgb Hct RDW Plt Count Lymph % (Auto) Lymph # (Auto) Seg Neutrophils % Seg Neuts % (Manual) Lymphocytes % (Manual) Nucleated RBC % Seg Neutrophils # Seg Neutrophils # Man Lymphocytes # (Manual) D-Dimer ABG pH POC ABG pO2 ABG pO2 ABG O2 Saturation ABG Base Excess ABG Oxyhemoglobin ABG Chloride ABG Glucose Oxyhemoglobin Carboxyhemoglobin Sodium Potassium Chloride Carbon Dioxide BUN Creatinine Glucose POC Glucose 195 H 226 H 235 H Hemoglobin A1c Calcium Magnesium Ferritin Lactate Dehydrogenase Troponin T C-Reactive Protein Total Protein Albumin Ydyjq-7-Xxxigrvtr Mbcce-7-Ecjvgingq Beta Globulins PEP Interpretation Triglycerides HDL Cholesterol Arterial Blood Glucose Coronavirus (PCR) 06/15/21 06/15/21 06/15/21 07:38 07:38 07:38 WBC 14.3 H RBC Hgb Hct RDW Plt Count Lymph % (Auto) Lymph # (Auto) Seg Neutrophils % Seg Neuts % (Manual) 95.0 H Lymphocytes % (Manual) 1.0 L Nucleated RBC % Seg Neutrophils # Seg Neutrophils # Man 13.6 H Lymphocytes # (Manual) 0.1 L D-Dimer > 20882 H ABG pH POC ABG pO2 ABG pO2 ABG O2 Saturation ABG Base Excess ABG Oxyhemoglobin ABG Chloride ABG Glucose Oxyhemoglobin Carboxyhemoglobin Sodium 153 H Potassium 3.5 L Chloride 115.9 H Carbon Dioxide BUN 55 H Creatinine 2.1 H Glucose 213 H POC Glucose Hemoglobin A1c Calcium Magnesium Ferritin Lactate Dehydrogenase Troponin T C-Reactive Protein Total Protein Albumin Qslfo-2-Ilupfnlzp Pibfl-4-Zhqiemjim Beta Globulins PEP Interpretation Triglycerides HDL Cholesterol Arterial Blood Glucose Coronavirus (PCR) 06/15/21 06/15/21 06/15/21 07:38 09:21 11:46 WBC RBC Hgb Hct RDW Plt Count Lymph % (Auto) Lymph # (Auto) Seg Neutrophils % Seg Neuts % (Manual) Lymphocytes % (Manual) Nucleated RBC % Seg Neutrophils # Seg Neutrophils # Man Lymphocytes # (Manual) D-Dimer ABG pH POC ABG pO2 ABG pO2 ABG O2 Saturation ABG Base Excess ABG Oxyhemoglobin ABG Chloride ABG Glucose Oxyhemoglobin Carboxyhemoglobin Sodium Potassium Chloride Carbon Dioxide BUN Creatinine Glucose POC Glucose 202 H 233 H Hemoglobin A1c Calcium Magnesium Ferritin 1246.0 H Lactate Dehydrogenase Troponin T C-Reactive Protein Total Protein Albumin Qdhft-0-Vukloelve Dqnmh-6-Yyijyptvb Beta Globulins PEP Interpretation Triglycerides HDL Cholesterol Arterial Blood Glucose Coronavirus (PCR) 06/15/21 06/16/21 06/16/21 17:32 05:44 07:48 WBC RBC Hgb Hct RDW Plt Count Lymph % (Auto) Lymph # (Auto) Seg Neutrophils % Seg Neuts % (Manual) Lymphocytes % (Manual) Nucleated RBC % Seg Neutrophils # Seg Neutrophils # Man Lymphocytes # (Manual) D-Dimer ABG pH POC ABG pO2 ABG pO2 ABG O2 Saturation ABG Base Excess ABG Oxyhemoglobin ABG Chloride ABG Glucose Oxyhemoglobin Carboxyhemoglobin Sodium 154 H Potassium Chloride 117.2 H Carbon Dioxide BUN 54 H Creatinine 2.0 H Glucose 120 H POC Glucose 179 H 109 H Hemoglobin A1c Calcium Magnesium Ferritin Lactate Dehydrogenase Troponin T C-Reactive Protein Total Protein Albumin Xuwys-5-Svqimkgii Fkweh-1-Lgsqpyhqg Beta Globulins PEP Interpretation Triglycerides HDL Cholesterol Arterial Blood Glucose Coronavirus (PCR) 06/16/21 06/16/21 06/16/21 11:13 15:22 21:15 WBC RBC Hgb Hct RDW Plt Count Lymph % (Auto) Lymph # (Auto) Seg Neutrophils % Seg Neuts % (Manual) Lymphocytes % (Manual) Nucleated RBC % Seg Neutrophils # Seg Neutrophils # Man Lymphocytes # (Manual) D-Dimer ABG pH POC ABG pO2 ABG pO2 ABG O2 Saturation ABG Base Excess ABG Oxyhemoglobin ABG Chloride ABG Glucose Oxyhemoglobin Carboxyhemoglobin Sodium Potassium Chloride Carbon Dioxide BUN Creatinine Glucose POC Glucose 222 H 218 H 250 H Hemoglobin A1c Calcium Magnesium Ferritin Lactate Dehydrogenase Troponin T C-Reactive Protein Total Protein Albumin Dwmay-5-Seiuximof Yrxtr-9-Gifwsoiic Beta Globulins PEP Interpretation Triglycerides HDL Cholesterol Arterial Blood Glucose Coronavirus (PCR) 06/17/21 06/17/21 06/17/21 07:55 09:35 09:35 WBC RBC Hgb Hct RDW 15.7 H Plt Count 99 L Lymph % (Auto) Lymph # (Auto) Seg Neutrophils % Seg Neuts % (Manual) Lymphocytes % (Manual) Nucleated RBC % Seg Neutrophils # Seg Neutrophils # Man Lymphocytes # (Manual) D-Dimer ABG pH POC ABG pO2 ABG pO2 ABG O2 Saturation ABG Base Excess ABG Oxyhemoglobin ABG Chloride ABG Glucose Oxyhemoglobin Carboxyhemoglobin Sodium 148 H Potassium Chloride 113.3 H Carbon Dioxide BUN 45 H Creatinine 1.8 H Glucose 202 H POC Glucose 158 H Hemoglobin A1c Calcium Magnesium Ferritin Lactate Dehydrogenase Troponin T C-Reactive Protein Total Protein 6.0 L Albumin 2.8 L Tvrsg-8-Jxvdfktki Whanv-3-Dxmjsyeql Beta Globulins PEP Interpretation Triglycerides HDL Cholesterol Arterial Blood Glucose Coronavirus (PCR) 06/17/21 06/17/21 06/18/21 12:32 16:46 06:00 WBC RBC Hgb Hct RDW Plt Count Lymph % (Auto) Lymph # (Auto) Seg Neutrophils % Seg Neuts % (Manual) Lymphocytes % (Manual) Nucleated RBC % Seg Neutrophils # Seg Neutrophils # Man Lymphocytes # (Manual) D-Dimer 9804.08 H ABG pH POC ABG pO2 ABG pO2 ABG O2 Saturation ABG Base Excess ABG Oxyhemoglobin ABG Chloride ABG Glucose Oxyhemoglobin Carboxyhemoglobin Sodium Potassium Chloride Carbon Dioxide BUN Creatinine Glucose POC Glucose 227 H 203 H Hemoglobin A1c Calcium Magnesium Ferritin Lactate Dehydrogenase Troponin T C-Reactive Protein Total Protein Albumin Ioqrh-8-Ofbrywsxv Xlram-2-Frhacwice Beta Globulins PEP Interpretation Triglycerides HDL Cholesterol Arterial Blood Glucose Coronavirus (PCR) 06/18/21 06/18/21 06/18/21 06:00 08:00 10:10 WBC RBC Hgb Hct RDW Plt Count Lymph % (Auto) Lymph # (Auto) Seg Neutrophils % Seg Neuts % (Manual) Lymphocytes % (Manual) Nucleated RBC % Seg Neutrophils # Seg Neutrophils # Man Lymphocytes # (Manual) D-Dimer ABG pH POC ABG pO2 ABG pO2 ABG O2 Saturation ABG Base Excess ABG Oxyhemoglobin ABG Chloride ABG Glucose Oxyhemoglobin Carboxyhemoglobin Sodium Potassium Chloride 110.1 H Carbon Dioxide BUN 39 H Creatinine 1.8 H Glucose 135 H POC Glucose 107 H Hemoglobin A1c Calcium Magnesium Ferritin 904.2 H Lactate Dehydrogenase Troponin T C-Reactive Protein Total Protein Albumin Xkuwc-2-Nxrvwevqq Ncegz-8-Tdvoqojzw Beta Globulins PEP Interpretation Triglycerides HDL Cholesterol Arterial Blood Glucose Coronavirus (PCR) 06/18/21 12:06 WBC RBC Hgb Hct RDW Plt Count Lymph % (Auto) Lymph # (Auto) Seg Neutrophils % Seg Neuts % (Manual) Lymphocytes % (Manual) Nucleated RBC % Seg Neutrophils # Seg Neutrophils # Man Lymphocytes # (Manual) D-Dimer ABG pH POC ABG pO2 ABG pO2 ABG O2 Saturation ABG Base Excess ABG Oxyhemoglobin ABG Chloride ABG Glucose Oxyhemoglobin Carboxyhemoglobin Sodium Potassium Chloride Carbon Dioxide BUN Creatinine Glucose POC Glucose 160 H Hemoglobin A1c Calcium Magnesium Ferritin Lactate Dehydrogenase Troponin T C-Reactive Protein Total Protein Albumin Vamjp-8-Zmmzgfcte Jfnoj-3-Mpkwkttsh Beta Globulins PEP Interpretation Triglycerides HDL Cholesterol Arterial Blood Glucose Coronavirus (PCR)
[2021-06-18] MEDS: INSULIN NPH/REGULAR 70/30 INJ SUB-Q SCH ×2 (16:31→17:08)
[2021-06-18] MEDS: LORATADINE/PSEUDOEPHEDRINE 10-240 MG TAB 24HR PO SCH (17:04)
[2021-06-18] MEDS: QUEtiapine 25 MG TAB PO SCH (23:49)
[2021-06-19] MEDS: LEVOTHYROXINE 100 MCG TAB PO SCH (05:47)
[2021-06-19] MEDS: LEVOTHYROXINE 75 MCG TAB PO SCH (05:47)
[2021-06-19] MEDS: ONDANSETRON 4 MG ODT TAB PO SCH ×3 (05:47→23:43)
[2021-06-19] MEDS: hydrALAZINE 25 MG TAB PO SCH ×3 (05:47→23:44)
--- NOTE | 2021-06-19 08:05 | XRay Report ---
CHEST 1 VIEW 06/19/2021 7:26 AM INDICATION / CLINICAL INFORMATION: Follow up on Pneumonia. COMPARISON: 06/07/2021 FINDINGS: SUPPORT DEVICES: None. HEART / MEDIASTINUM: No significant abnormality. LUNGS / PLEURA: Increased bilateral airspace opacities. No pneumothorax. ADDITIONAL FINDINGS: No significant additional findings. IMPRESSION: 1. Interval worsening. Signer Name: Tuan Wagner DO Signed: 06/19/2021 8:00 AM Workstation Name: [id number]
[2021-06-19] MEDS: INSULIN REGULAR, HUMAN 100 UNITS/1 ML SUB-Q SCH ×4 (08:40→23:44)
[2021-06-19] MEDS: SODIUM BICARBONATE 650 MG TAB PO SCH ×3 (08:50→23:44)
--- NOTE | 2021-06-19 09:00 | Progress Note ---
Assessment and Plan Assessment and plan: #Severe COVID-19 breakthrough infection #COVID-19 pneumonia #Severe ARDS -patient vaccinated -continue isolation precautions -inflammatory markers q3d -currently on high flow -completed 10 days of steroids -continue vitamin C, zinc and vitamin D #Acute hypoxic respiratory failure -continue high flow, wean as tolerated -continue nebulized treatments -CXR ordered for today -Pulmonary following, recs appreciated #Acute encephalopathy -stable -Waxing and waning alertness -Delirium precautions -continue seroquel nightly -will consider CTH versus neurology consult if progresses #Hypernatremia -likely secondary to poor p.o. intake -continue D5W @ 150cc/hr -continue 400 cc every 4 hour free water flushes by mouth #Acute versus chronic renal failure -unknown baseline -avoid nephrotoxins -Nephrology managing #Insulin-dependent type 2 diabetes -continue Humulin 34 units twice daily plus sliding scale -goal glucose 140-180 #Elevated troponin -resolved, likely type II #Hypertension -Not at goal -continue BB and hydralazine at current doses #Hypothyroidism -continue home levothyroxine #Protein calorie malnutrition -Nutrition consult #History of DVT -continue Eliquis #Discharge planning -pending improved respiratory status -Physical therapy consult to evaluate and treat once patient improves Disposition Plan: Continue medical management Total Time Spent with Patient (Minutes): 20 minutes History Interval history: No acute events overnight. Patient alert to person and place. Ate breakfast. Denies chest pain, shortness of breath or discomfort. Hospitalist Physical - Physical exam Narrative exam: GENERAL: Obese. Lying in bed. HEENT: High flow at 40 L/min. CHEST/LUNGS: Coarse breath sounds bilaterally. HEART/CARDIOVASCULAR: Regular rate rhythm. No murmur, rubs or gallops appreciated. ABDOMEN: +BS. NT/ND. EXTREMITIES: No cyanosis, clubbing or edema. - Constitutional Vitals: Temp Pulse Resp BP Pulse Ox 98.8 F 85 18 131/84 92 06/19/21 05:24 06/19/21 05:24 06/19/21 05:24 06/19/21 05:24 06/19/21 05:24 General appearance: Present: no acute distress HEART Score - HEART Score EKG: Non-specific Age: 45-65 Risk factors: 1-2 risk factors Troponin: Troponin T 0.021 ng/mL (0.00-0.029) 06/08/21 13:49 - Critical Actions Critical Actions: 0-3 pts:0.9-1.7%risk of adverse cardiac event.Candidate for discharge Results - Labs CBC & Chem 7: 06/17/21 09:35 06/18/21 10:10 Labs: Laboratory Last Values WBC 9.7 K/mm3 (4.5-11.0) 06/17/21 09:35 RBC 4.51 M/mm3 (3.65-5.03) 06/17/21 09:35 Hgb 12.7 gm/dl (10.1-14.3) 06/17/21 09:35 Hct 39.1 % (30.3-42.9) 06/17/21 09:35 MCV 87 fl (79-97) 06/17/21 09:35 MCH 28 pg (28-32) 06/17/21 09:35 MCHC 33 % (30-34) 06/17/21 09:35 RDW 15.7 % (13.2-15.2) H 06/17/21 09:35 Plt Count 99 K/mm3 (140-440) L 06/17/21 09:35 Lymph % (Auto) 8.5 % (13.4-35.0) L 06/12/21 08:31 Lynn % (Auto) 2.5 % (0.0-7.3) 06/12/21 08:31 Eos % (Auto) 0.8 % (0.0-4.3) 06/12/21 08:31 Baso % (Auto) 0.1 % (0.0-1.8) 06/12/21 08:31 Lymph # (Auto) 1.1 K/mm3 (1.2-5.4) L 06/12/21 08:31 Lynn # (Auto) 0.3 K/mm3 (0.0-0.8) 06/12/21 08:31 Eos # (Auto) 0.1 K/mm3 (0.0-0.4) 06/12/21 08:31 Baso # (Auto) 0.0 K/mm3 (0.0-0.1) 06/12/21 08:31 Add Manual Diff Complete 06/15/21 07:38 Total Counted 100 06/15/21 07:38 Seg Neutrophils % [employer] 06/15/21 07:38 Seg Neuts % (Manual) 95.0 % (40.0-70.0) H 06/15/21 07:38 Band Neutrophils % 4.0 % 06/15/21 07:38 Lymphocytes % (Manual) 1.0 % (13.4-35.0) L 06/15/21 07:38 Monocytes % (Manual) 3.0 % (0.0-7.3) 06/14/21 04:42 Eosinophils % (Manual) 1.0 % (0.0-4.3) 06/13/21 07:42 Metamyelocytes % 2.0 % 06/10/21 23:14 Myelocytes % 2.0 % 06/14/21 04:42 Nucleated RBC % Not Reportable 06/15/21 07:38 Seg Neutrophils # 10.9 K/mm3 (1.8-7.7) H 06/12/21 08:31 Seg Neutrophils # Man 13.6 K/mm3 (1.8-7.7) H 06/15/21 07:38 Band Neutrophils # 0.6 K/mm3 06/15/21 07:38 Lymphocytes # (Manual) 0.1 K/mm3 (1.2-5.4) L 06/15/21 07:38 Abs React Lymphs (Man) 0.0 K/mm3 06/15/21 07:38 Monocytes # (Manual) 0.0 K/mm3 (0.0-0.8) 06/15/21 07:38 Eosinophils # (Manual) 0.0 K/mm3 (0.0-0.4) 06/15/21 07:38 Basophils # (Manual) 0.0 K/mm3 (0.0-0.1) 06/15/21 07:38 Metamyelocytes # 0.0 K/mm3 06/15/21 07:38 Myelocytes # 0.0 K/mm3 06/15/21 07:38 Promyelocytes # 0.0 K/mm3 06/15/21 07:38 Blast Cells # 0.0 K/mm3 06/15/21 07:38 WBC Morphology Not Reportable 06/15/21 07:38 Hypersegmented Neuts Not Reportable 06/15/21 07:38 Hyposegmented Neuts Not Reportable 06/15/21 07:38 Hypogranular Neuts Not Reportable 06/15/21 07:38 Smudge Cells Not Reportable 06/15/21 07:38 Toxic Granulation Not Reportable 06/15/21 07:38 Toxic Vacuolation Not Reportable 06/15/21 07:38 Dohle Bodies Not Reportable 06/15/21 07:38 Pelger-Huet Anomaly Not Reportable 06/15/21 07:38 Nba Rods Not Reportable 06/15/21 07:38 Platelet Estimate Consistent w auto 06/15/21 07:38 Clumped Platelets Not Reportable 06/15/21 07:38 Plt Clumps, EDTA Not Reportable 06/15/21 07:38 Large Platelets Not Reportable 06/15/21 07:38 Giant Platelets Not Reportable 06/15/21 07:38 Platelet Satelliting Not Reportable 06/15/21 07:38 Plt Morphology Comment Not Reportable 06/15/21 07:38 RBC Morphology Not Reportable 06/15/21 07:38 Dimorphic RBCs Not Reportable 06/15/21 07:38 Polychromasia Not Reportable 06/15/21 07:38 Hypochromasia Not Reportable 06/15/21 07:38 Poikilocytosis Not Reportable 06/15/21 07:38 Anisocytosis Not Reportable 06/15/21 07:38 Microcytosis Not Reportable 06/15/21 07:38 Macrocytosis Not Reportable 06/15/21 07:38 Spherocytes Not Reportable 06/15/21 07:38 Pappenheimer Bodies Not Reportable 06/15/21 07:38 Sickle Cells Not Reportable 06/15/21 07:38 Target Cells Not Reportable 06/15/21 07:38 Tear Drop Cells 1+ 06/15/21 07:38 Ovalocytes 1+ 06/15/21 07:38 Helmet Cells Not Reportable 06/15/21 07:38 Terry-Denhoff Bodies Not Reportable 06/15/21 07:38 [place] Rings Not Reportable 06/15/21 07:38 [place] Cells Not Reportable 06/15/21 07:38 Bite Cells Not Reportable 06/15/21 07:38 Crenated Cell Not Reportable 06/15/21 07:38 Elliptocytes Not Reportable 06/15/21 07:38 Acanthocytes (Spur) Not Reportable 06/15/21 07:38 Rouleaux Not Reportable 06/15/21 07:38 Hemoglobin C Crystals Not Reportable 06/15/21 07:38 Schistocytes Not Reportable 06/15/21 07:38 Malaria parasites Not Reportable 06/15/21 07:38 Luis Bodies Not Reportable 06/15/21 07:38 Hem Pathologist Commnt No 06/15/21 07:38 D-Dimer 9804.08 ng/mlDDU (0-234) H 06/18/21 06:00 ABG pH 7.318 pH Units (7.350-7.450) L 06/12/21 04:22 POC ABG pCO2 34.2 mmHg (32.0-48.0) 06/09/21 12:19 ABG pCO2 40.1 mm Hg 06/12/21 04:22 POC ABG pO2 71.4 mmHg (83-108) L 06/09/21 12:19 ABG pO2 51.5 mm Hg (80.0-90.0) L 06/12/21 04:22 POC ABG HCO3 20.5 06/09/21 12:19 ABG HCO3 20.1 mmol/L (20.0-26.0) 06/12/21 04:22 ABG O2 Saturation 86.9 % (95.0-99.0) L 06/12/21 04:22 ABG O2 Content 16.2 (0.0-44) 06/12/21 04:22 POC ABG Base Excess -3.6 06/09/21 12:19 ABG Base Excess -5.6 mmol/L (-2.0-3.0) L 06/12/21 04:22 ABG Hemoglobin 13.5 gm/dl (12.0-16.0) 06/12/21 04:22 ABG Oxyhemoglobin 92.9 (94-98) L 06/09/21 12:19 ABG Carboxyhemoglobin 1.1 % (0.0-5.0) 06/12/21 04:22 ABG Methemoglobin 0.5 % (0.0-1.5) 06/12/21 04:22 ABG Sodium 143.5 mmol/L (136.0-145.0) 06/09/21 12:19 ABG Potassium 3.6 mmol/L (3.40-4.50) 06/09/21 12:19 ABG Chloride 109.0 mmol/L (98-107) H 06/09/21 12:19 ABG Glucose 287 mg/dL (65-95) H 06/09/21 12:19 Oxyhemoglobin 85.5 % (95.0-99.0) L 06/12/21 04:22 Carboxyhemoglobin 0.4 (0.5-1.5) L 06/09/21 12:19 FiO2 100 % 06/12/21 04:22 FiO2 % 75.0 06/09/21 12:19 Sodium 145 mmol/L (137-145) 06/18/21 10:10 Potassium 4.2 mmol/L (3.6-5.0) 06/18/21 10:10 Chloride 110.1 mmol/L (98-107) H 06/18/21 10:10 Carbon Dioxide 22 mmol/L (22-30) 06/18/21 10:10 Anion Gap 17 mmol/L 06/18/21 10:10 BUN 39 mg/dL (7-17) H 06/18/21 10:10 Creatinine 1.8 mg/dL (0.6-1.2) H 06/18/21 10:10 Estimated GFR 35 ml/min 06/18/21 10:10 BUN/Creatinine Ratio 22 % 06/18/21 10:10 Glucose 135 mg/dL (65-100) H 06/18/21 10:10 POC Glucose 82 mg/dL (70-105) 06/19/21 07:56 Hemoglobin A1c 9.5 % (4-6) H 06/07/21 19:11 Calcium 8.6 mg/dL (8.4-10.2) 06/18/21 10:10 Phosphorus 3.30 mg/dL (2.5-4.5) 06/14/21 04:42 Magnesium 2.40 mg/dL (1.7-2.3) H 06/14/21 04:42 Ferritin 904.2 ng/mL (10.0-200.0) H 06/18/21 06:00 Total Bilirubin 0.40 mg/dL (0.1-1.2) 06/17/21 09:35 AST 21 units/L (5-40) 06/17/21 09:35 ALT 33 units/L (7-56) 06/17/21 09:35 Alkaline Phosphatase 113 units/L (35-129) 06/17/21 09:35 Lactate Dehydrogenase 606 units/L (91-180) H 06/10/21 23:14 Troponin T 0.021 ng/mL (0.00-0.029) 06/08/21 13:49 C-Reactive Protein 1.90 mg/dL (0.00-1.30) H 06/11/21 10:58 Serum Total Protein 7.0 g/dL (6.1-8.1) 06/10/21 23:14 Total Protein 6.0 g/dL (6.3-8.2) L 06/17/21 09:35 Albumin 2.8 g/dL (3.9-5) L 06/17/21 09:35 Albumin/Globulin Ratio 0.9 % 06/17/21 09:35 Vznae-8-Rhlvawabb 0.5 g/dL (0.2-0.3) H 06/10/21 23:14 Dqkec-3-Hgpjnnffw 1.7 g/dL (0.5-0.9) H 06/10/21 23:14 Beta Globulins 0.6 g/dL (0.2-0.5) H 06/10/21 23:14 Gamma Globulins 1.3 g/dL (0.8-1.7) 06/10/21 23:14 Abnorm Protein Band 1 see below 06/10/21 23:14 PEP Interpretation see below H 06/10/21 23:14 Triglycerides 209 mg/dL (2-149) H 06/07/21 19:11 Cholesterol 165 mg/dL (50-199) 06/07/21 19:11 LDL Cholesterol Direct 79 mg/dL (50-130) 06/07/21 19:11 HDL Cholesterol 35 mg/dL (40-59) L 06/07/21 19:11 Cholesterol/HDL Ratio 4.71 % 06/07/21 19:11 Procalcitonin 0.91 ng/mL (<0.15) 06/07/21 19:11 Arterial Blood Glucose 287 mg/dL (65-95) H 06/09/21 12:19 Coronavirus (PCR) Positive (Negative) A 06/08/21 08:30 Blood Type B POSITIVE 06/07/21 22:34 Antibody Screen Negative 06/07/21 22:34 Roland/IV: Voiding Method External Female Catheter Active Medications - Current Medications Current Medications: Generic Name Dose Route Start Last Admin Trade Name Freq PRN Reason Stop Dose Admin Acetaminophen 650 mg 06/07/21 21:41 Acetaminophen 325 Mg Tab PO Q4H PRN Pain MILD(1-3)/Fever >100.5/MARTÍNEZ Albuterol 2 puff 06/07/21 23:00 Albuterol 8.5 Gm Mdi Inhalation IH Q4HRT PRN Shortness Of Breath Alprazolam 0.5 mg 06/15/21 04:58 06/15/21 05:33 Alprazolam 0.5 Mg Tab PO 0.5 mg Q8H PRN Administration Anxiety Apixaban 5 mg 06/08/21 10:00 06/18/21 23:49 Apixaban 5 Mg Tab PO 5 mg BID LEONOR Administration Atorvastatin Calcium 10 mg 06/08/21 10:00 06/18/21 11:29 Atorvastatin 10 Mg Tab PO 10 mg DAILY LEONOR Administration Carvedilol 6.25 mg 06/15/21 22:00 06/18/21 23:50 Carvedilol 6.25 Mg Tab PO 6.25 mg BID LEONOR Administration Dextrose 50 ml 06/08/21 12:04 Dextrose 50% In Water (25gm) 50 Ml Syringe IV Q30MIN PRN Hypoglycemia Protocol Docusate Sodium 100 mg 06/07/21 21:33 Docusate Sodium 100 Mg Cap PO BID PRN Constipation Famotidine 10 mg 06/14/21 22:00 06/18/21 23:50 Famotidine 10 Mg Tab PO 10 mg BID LEONOR Administration Guaifenesin 10 ml 06/09/21 00:15 06/11/21 06:12 Guaifenesin Dm 200/20 Mg Oral Liqd 10 Ml PO 10 ml Q4H PRN Administration Cough Hydralazine HCl 25 mg 06/07/21 22:00 06/19/21 05:47 Hydralazine 25 Mg Tab PO 25 mg Q8HR LEONOR Administration Hydromorphone HCl 0.5 mg 06/07/21 21:41 Hydromorphone 1 Mg/1 Ml Inj IV Q3H PRN Pain , Severe (7-10) Hydromorphone HCl 0.25 mg 06/07/21 22:33 Hydromorphone 1 Mg/1 Ml Inj IV Q4H PRN Pain, Moderate (4-6) Hydrophilic Ointment 1 applic 06/13/21 07:30 Lip Therapy Vaseline TP DIRECT PRN Dry Lips Dextrose 1,000 mls @ 150 mls/hr 06/14/21 10:00 06/19/21 05:45 D5w IV Infused DIRECT LEONOR Infusion Insulin Human Isoph/Insulin Regular 34 unit 06/17/21 17:00 06/18/21 17:08 Insulin Nph/Regular 70/30 Inj SUB-Q 34 unit BIDDIAB LEONOR Administration Insulin Human Regular 0 units 06/08/21 12:15 06/18/21 23:58 Insulin Regular, Human 100 Units/1 Ml SUB-Q 3 units ACHS LEONOR Administration Protocol Levothyroxine Sodium 75 mcg 06/08/21 06:00 06/19/21 05:47 Levothyroxine 75 Mcg Tab PO 75 mcg QAM@0600 LEONOR Administration Levothyroxine Sodium 200 mcg 06/08/21 06:00 06/19/21 05:47 Levothyroxine 100 Mcg Tab PO 200 mcg DAILY@0600 LEONOR Administration Loratadine/Pseudoephedrine Sulfate 1 each 06/08/21 10:00 06/18/21 17:04 Loratadine/Pseudoephedrine 10-240 Mg Tab 24hr PO 1 each Q24HR LEONOR Administration Ondansetron HCl 4 mg 06/07/21 22:00 06/19/21 05:47 Ondansetron 4 Mg Odt Tab PO 4 mg Q8HR LEONOR Administration Ondansetron HCl 4 mg 06/07/21 21:41 06/10/21 06:24 Ondansetron 4 Mg/2 Ml Inj IV 4 mg Q8H PRN Administration Nausea And Vomiting Oxycodone/Acetaminophen 1 tab 06/07/21 21:41 06/09/21 17:05 Oxycodone /Acetaminophen 5-325mg Tab PO 1 tab Q6H PRN Administration Pain, Moderate (4-6) Quetiapine Fumarate 50 mg 06/15/21 22:00 06/18/21 23:49 Quetiapine 25 Mg Tab PO 50 mg QHS LEONOR Administration Sodium Bicarbonate 650 mg 06/10/21 14:00 06/18/21 23:49 Sodium Bicarbonate 650 Mg Tab PO 650 mg TID LEONOR Administration Sodium Chloride 10 ml 06/07/21 22:00 06/18/21 23:51 Sodium Chloride 0.9% 10 Ml Flush Syringe IV 10 ml BID LEONOR Administration Sodium Chloride 10 ml 06/07/21 21:41 Sodium Chloride 0.9% 10 Ml Flush Syringe IV PRN PRN LINE FLUSH Nutrition/Malnutrition Assess - Dietary Evaluation Nutrition/Malnutrition Findings: Nutrition Notes Start: 06/08/21 10:56 Freq: Status: Active Protocol: Document 06/14/21 14:24 GB (Rec: 06/14/21 14:30 GB [id number]) Nutrition Notes Initial or Follow up Reassessment Current Diagnosis Acute Kidney Injury,Diabetes, Sepsis,Hypertension, Respiratory Failure Other Pertinent Diagnosis COVID-19 PUI, hypothyroid Current Diet consistent CHO/cardiac, pureed texture Labs/Tests 06/14: Na 152, BUN 68, Creatinine 2.5, glucose 188, Mg 2.4 Pertinent Medications Zofran NS at 10 ml/hr Height 5 ft 11 in Weight 164 kg [place] Body Weight (kg) 70.45 BMI 50.4 Weight change and time frame No significant changes reported. Stable. Weight Status Morbidly Obese Subjective/Other Information Per chart nursing staff recorded PO intake of meals as 100%. Supplement beverages glucerna have been d/c'd. Percent of energy/protein needs met: PO intake of meals 100% TID meets 75% or greater of estimated energy needs. Burn Absent Trauma Absent GI Symptoms None Difficulty In Swallowing,Chewing Food Allergy Yes Current % PO Good (75-100%) Minimum of two criteria No #1 Nutrition Diagnosis Predicted suboptimal energy intake Comments: PO intake of meals recorded currently for one day at 25%, independent with meals. 06/14: PO intake of meals recorded as 100% x2days. Etiology ARF As Evidenced by Signs and Symptoms pt on bipap Diagnosis Progress(for reassessment Improved documentation) Is patient on ventilator? No Is Patient Ambulatory and/or Out of Bed No REE-([facility]-confined to bed) 2771.148 Kcal/Kg value to use for calculation 12 Approximate Energy Requirements Using 1968 kcal/Kg Calculation Used for Recommendations Kcal/kg Additional Notes Protein: (0.8-1g/kg AdjBW) 94- 117g/day Fluid: 1 ml/kcal Nutrition Intervention Change Diet Order: Continue Add Supplement/Snack (indicate name/kcal n/a - history of pt not liking /protein ) nutrition supplement beverages Goal #1 PO intake of meals to improve to 50% or greater TID daily during LOS 06/14: met, PO intake recorded as 100%, continues Goal #2 Weight to maintain within =/-3 % current weight during LOS 06/14: met, continues Follow-Up By: 06/21/21 Additional Comments Nursing continue to record Meal intake.
[2021-06-19] MEDS: APIXABAN 5 MG TAB PO SCH ×2 (11:00→23:43)
[2021-06-19] MEDS: INSULIN NPH/REGULAR 70/30 INJ SUB-Q SCH ×2 (11:10→18:20)
[2021-06-19] MEDS: FAMOTIDINE 10 MG TAB PO SCH ×2 (11:10→23:44)
[2021-06-19] MEDS: carvediloL 6.25 MG TAB PO SCH ×2 (11:11→23:43)
--- NOTE | 2021-06-19 15:13 | Progress Note ---
Assessment and Plan Assessment and Plan COVID-19 breakthrough infection COVID-19 pneumonia Acute renal failure versus acute on chronic renal failure Acute hypoxic respiratory failure Insulin-dependent type 2 diabetes- uncontrolled Elevated troponin Hypertension-controlled Hypothyroidism Protein calorie malnutrition Hypernatremia Plan Labs pending today Renal US was negative for hydronephrosis On D5W infusion at 150 ml/hr Renally dose medications Strict I&O's daily Renal plan reviewed by Dr Schultz Subjective Date of service: 06/19/21 Principal diagnosis: TREMAINE Interval history: Pt on isolation for covid-19, reviewed medical chart, labs, and notes Objective - Vital Signs Vital signs: Vital Signs - 12hr 06/19/21 06/19/21 06/19/21 05:24 09:03 11:30 Temperature 98.8 F 97.6 F Pulse Rate 85 70 Respiratory 18 24 Rate Blood Pressure 131/84 120/69 O2 Sat by Pulse 92 93 88 Oximetry 06/19/21 14:47 Temperature Pulse Rate 74 Respiratory Rate Blood Pressure 120/72 O2 Sat by Pulse Oximetry - Lab 06/17/21 09:35 06/18/21 10:10 Most recent lab results ABG pH 7.318 pH Units (7.350-7.450) L 06/12/21 04:22 ABG pCO2 40.1 mm Hg 06/12/21 04:22 ABG pO2 51.5 mm Hg (80.0-90.0) L 06/12/21 04:22 ABG HCO3 20.1 mmol/L (20.0-26.0) 06/12/21 04:22 ABG O2 Saturation 86.9 % (95.0-99.0) L 06/12/21 04:22 Calcium 8.6 mg/dL (8.4-10.2) 06/18/21 10:10 Phosphorus 3.30 mg/dL (2.5-4.5) 06/14/21 04:42 Magnesium 2.40 mg/dL (1.7-2.3) H 06/14/21 04:42 Medications & Allergies - Medications Allergies/Adverse Reactions: Allergies latex Allergy (Verified 03/19/19 17:03) Unknown shellfish derived Allergy (Verified 03/19/19 17:03) Anaphylaxis strawberry Allergy (Verified 03/19/19 17:03) Anaphylaxis tomato Allergy (Verified 03/19/19 17:03) Anaphylaxis nuts Allergy (Uncoded 03/19/19 17:03) Anaphylaxis Home Medications: Home Medications Medication Instructions Recorded Confirmed Last Taken Type Albuterol Sulfate [Ventolin HFA] 2 puff IH Q4H PRN 01/29/14 06/11/21 02/01/15 History Levothyroxine (Nf) [Synthroid (Nf)] 275 mcg PO QAM 01/29/14 06/11/21 02/01/15 History Fluticasone/Salmeterol [Advair 1 each IH PRN PRN 01/26/15 06/11/21 02/02/15 10:00 History Diskus 250-50 mcg] Apixaban [Eliquis starter pack] 5 mg PO BID 09/13/19 06/11/21 Unknown History Insulin Aspart Prot/Insuln Asp 45 unit SUB-Q QAM 09/13/19 06/11/21 Unknown History [Novolog Mix 70-30 Flexpen] Insulin Glargine,Hum.rec.anlog 25 unit SQ HS 09/13/19 06/11/21 Unknown History [Basaglar Kwikpen U-100] Lovastatin [Altoprev] 20 mg PO DAILY 09/13/19 06/11/21 Unknown History Docusate Sodium [Colace CAP] 100 mg PO BID PRN #30 capsule 09/17/19 06/11/21 Unknown Rx Loratadine/Pseudoephedrine 1 each PO Q24HR #10 tablet 09/17/19 06/11/21 Unknown Rx [Claritin-D 24HR] Ondansetron [Zofran Odt] 4 mg PO Q8HR #20 tab.rapdis 09/17/19 06/11/21 Unknown Rx carvediloL [Coreg] 3.125 mg PO BID #60 tablet 09/17/19 06/11/21 Unknown Rx hydrALAZINE [Apresoline TAB] 25 mg PO Q8HR #90 tablet 09/17/19 06/11/21 Unknown Rx Active Medications: Generic Name Dose Route Start Last Admin Trade Name Freq PRN Reason Stop Dose Admin Acetaminophen 650 mg 06/07/21 21:41 Acetaminophen 325 Mg Tab PO Q4H PRN Pain MILD(1-3)/Fever >100.5/MARTÍNEZ Albuterol 2 puff 06/07/21 23:00 Albuterol 8.5 Gm Mdi Inhalation IH Q4HRT PRN Shortness Of Breath Alprazolam 0.5 mg 06/15/21 04:58 06/15/21 05:33 Alprazolam 0.5 Mg Tab PO 0.5 mg Q8H PRN Administration Anxiety Apixaban 5 mg 06/08/21 10:00 06/19/21 11:00 Apixaban 5 Mg Tab PO 5 mg BID LEONOR Administration Atorvastatin Calcium 10 mg 06/08/21 10:00 06/19/21 11:11 Atorvastatin 10 Mg Tab PO 10 mg DAILY LEONOR Administration Carvedilol 6.25 mg 06/15/21 22:00 06/19/21 11:11 Carvedilol 6.25 Mg Tab PO 6.25 mg BID LEONOR Administration Dextrose 50 ml 06/08/21 12:04 Dextrose 50% In Water (25gm) 50 Ml Syringe IV Q30MIN PRN Hypoglycemia Protocol Docusate Sodium 100 mg 06/07/21 21:33 Docusate Sodium 100 Mg Cap PO BID PRN Constipation Famotidine 10 mg 06/14/21 22:00 06/19/21 11:10 Famotidine 10 Mg Tab PO 10 mg BID LEONOR Administration Guaifenesin 10 ml 06/09/21 00:15 06/11/21 06:12 Guaifenesin Dm 200/20 Mg Oral Liqd 10 Ml PO 10 ml Q4H PRN Administration Cough Hydralazine HCl 25 mg 06/07/21 22:00 06/19/21 14:47 Hydralazine 25 Mg Tab PO 25 mg Q8HR LEONOR Administration Hydromorphone HCl 0.5 mg 06/07/21 21:41 Hydromorphone 1 Mg/1 Ml Inj IV Q3H PRN Pain , Severe (7-10) Hydromorphone HCl 0.25 mg 06/07/21 22:33 Hydromorphone 1 Mg/1 Ml Inj IV Q4H PRN Pain, Moderate (4-6) Hydrophilic Ointment 1 applic 06/13/21 07:30 Lip Therapy Vaseline TP DIRECT PRN Dry Lips Dextrose 1,000 mls @ 150 mls/hr 06/14/21 10:00 06/19/21 05:45 D5w IV Infused DIRECT LEONOR Infusion Insulin Human Isoph/Insulin Regular 34 unit 06/17/21 17:00 06/19/21 11:10 Insulin Nph/Regular 70/30 Inj SUB-Q 34 unit BIDDIAB LEONOR Administration Insulin Human Regular 0 units 06/08/21 12:15 06/19/21 13:17 Insulin Regular, Human 100 Units/1 Ml SUB-Q Not Given ACHS [facility] Protocol Levothyroxine Sodium 75 mcg 06/08/21 06:00 06/19/21 05:47 Levothyroxine 75 Mcg Tab PO 75 mcg QAM@0600 LEONOR Administration Levothyroxine Sodium 200 mcg 06/08/21 06:00 06/19/21 05:47 Levothyroxine 100 Mcg Tab PO 200 mcg DAILY@0600 LEONOR Administration Loratadine/Pseudoephedrine Sulfate 1 each 06/08/21 10:00 06/18/21 17:04 Loratadine/Pseudoephedrine 10-240 Mg Tab 24hr PO 1 each Q24HR LEONOR Administration Ondansetron HCl 4 mg 06/07/21 22:00 06/19/21 14:47 Ondansetron 4 Mg Odt Tab PO 4 mg Q8HR LEONOR Administration Ondansetron HCl 4 mg 06/07/21 21:41 06/10/21 06:24 Ondansetron 4 Mg/2 Ml Inj IV 4 mg Q8H PRN Administration Nausea And Vomiting Oxycodone/Acetaminophen 1 tab 06/07/21 21:41 06/09/21 17:05 Oxycodone /Acetaminophen 5-325mg Tab PO 1 tab Q6H PRN Administration Pain, Moderate (4-6) Quetiapine Fumarate 50 mg 06/15/21 22:00 06/18/21 23:49 Quetiapine 25 Mg Tab PO 50 mg QHS LEONOR Administration Sodium Bicarbonate 650 mg 06/10/21 14:00 06/19/21 14:48 Sodium Bicarbonate 650 Mg Tab PO 650 mg TID LEONOR Administration Sodium Chloride 10 ml 06/07/21 22:00 06/19/21 14:49 Sodium Chloride 0.9% 10 Ml Flush Syringe IV 10 ml BID LEONOR Administration Sodium Chloride 10 ml 06/07/21 21:41 Sodium Chloride 0.9% 10 Ml Flush Syringe IV PRN PRN LINE FLUSH
[2021-06-19] MEDS: LORATADINE/PSEUDOEPHEDRINE 10-240 MG TAB 24HR PO SCH (17:48)
[2021-06-19 18:27] LABS: Hematocrit 39.9 % (30.3-42.9); Hemoglobin 13.3 gm/dl (10.1-14.3); Mean Corpuscular HGB Conc 33 % (30-34); Mean Corpuscular Volume 85 fl (79-97); Platelet Count 73 K/mm3 (140-440); Red Blood Count 4.68 M/mm3 (3.65-5.03); Red Cell Distribution Width 15.5 % (13.2-15.2)
[2021-06-19 18:49] LABS: Calcium 8.7 mg/dL (8.4-10.2)
[2021-06-19] MEDS: QUEtiapine 25 MG TAB PO SCH (23:44)
[2021-06-20] MEDS: hydrALAZINE 25 MG TAB PO SCH ×2 (05:29→17:00)
[2021-06-20] MEDS: LEVOTHYROXINE 75 MCG TAB PO SCH (05:30)
[2021-06-20] MEDS: LEVOTHYROXINE 100 MCG TAB PO SCH (05:30)
[2021-06-20] MEDS: ONDANSETRON 4 MG ODT TAB PO SCH ×2 (05:30→18:01)
--- NOTE | 2021-06-20 08:23 | Progress Note ---
Assessment and Plan Assessment and plan: #Severe COVID-19 breakthrough infection #COVID-19 pneumonia #Severe ARDS -patient vaccinated -continue isolation precautions -inflammatory markers q3d -currently on high flow -completed 10 days of steroids -continue vitamin C, zinc and vitamin D #Acute hypoxic respiratory failure -continue high flow, wean as tolerated -continue nebulized treatments -Pulmonary following, recs appreciated #Acute encephalopathy -Improving -Delirium precautions -continue seroquel nightly #Hypernatremia -likely secondary to poor p.o. intake -D5W @75 cc/hr -continue 400 cc every 4 hour free water flushes by mouth #Acute versus chronic renal failure -unknown baseline -avoid nephrotoxins -Nephrology managing #Insulin-dependent type 2 diabetes #Hypoglycemia -Glucose low as 58 -Given D5, will restart D5 infusion at 75 cc an hour -Humulin decreased to 30 units twice daily -continue sliding scale insulin -goal glucose 140-180 #Elevated troponin -resolved, likely type II #Hypertension -Controlled -continue BB and hydralazine at current doses #Hypothyroidism -continue home levothyroxine #Protein calorie malnutrition -Nutrition consult #History of DVT -continue Eliquis #Discharge planning -pending improved respiratory status -Physical therapy consult to evaluate and treat once patient improves Disposition Plan: Continue medical management Total Time Spent with Patient (Minutes): 20 minutes History Interval history: No acute events overnight. Patient alert to person and place. Patient endorses lack of appetite. Denies chest pain, shortness of breath or discomfort. Hospitalist Physical - Physical exam Narrative exam: GENERAL: Obese. Lying in bed. HEENT: High flow at 40 L/min; FIO2 100%. CHEST/LUNGS: Coarse breath sounds bilaterally. HEART/CARDIOVASCULAR: Regular rate rhythm. No murmur, rubs or gallops appreciated. ABDOMEN: +BS. NT/ND. EXTREMITIES: No cyanosis, clubbing or edema. - Constitutional Vitals: Temp Pulse Resp BP Pulse Ox 98.0 F 74 20 109/63 91 06/19/21 17:48 06/19/21 21:36 06/19/21 21:36 06/19/21 21:36 06/20/21 04:50 General appearance: Present: no acute distress - Allied Health Allied health notes reviewed: nursing HEART Score - HEART Score EKG: Non-specific Age: 45-65 Risk factors: 1-2 risk factors Troponin: Troponin T 0.021 ng/mL (0.00-0.029) 06/08/21 13:49 - Critical Actions Critical Actions: 0-3 pts:0.9-1.7%risk of adverse cardiac event.Candidate for discharge Results - Labs CBC & Chem 7: 06/19/21 15:46 06/19/21 15:46 Labs: Laboratory Last Values WBC 4.5 K/mm3 (4.5-11.0) 06/19/21 15:46 RBC 4.68 M/mm3 (3.65-5.03) 06/19/21 15:46 Hgb 13.3 gm/dl (10.1-14.3) 06/19/21 15:46 Hct 39.9 % (30.3-42.9) 06/19/21 15:46 MCV 85 fl (79-97) 06/19/21 15:46 MCH 28 pg (28-32) 06/19/21 15:46 MCHC 33 % (30-34) 06/19/21 15:46 RDW 15.5 % (13.2-15.2) H 06/19/21 15:46 Plt Count 73 K/mm3 (140-440) L 06/19/21 15:46 Lymph % (Auto) 8.5 % (13.4-35.0) L 06/12/21 08:31 [place] % (Auto) 2.5 % (0.0-7.3) 06/12/21 08:31 Eos % (Auto) 0.8 % (0.0-4.3) 06/12/21 08:31 Baso % (Auto) 0.1 % (0.0-1.8) 06/12/21 08:31 Lymph # (Auto) 1.1 K/mm3 (1.2-5.4) L 06/12/21 08:31 [place] # (Auto) 0.3 K/mm3 (0.0-0.8) 06/12/21 08:31 Eos # (Auto) 0.1 K/mm3 (0.0-0.4) 06/12/21 08:31 Baso # (Auto) 0.0 K/mm3 (0.0-0.1) 06/12/21 08:31 Add Manual Diff Complete 06/15/21 07:38 Total Counted 100 06/15/21 07:38 Seg Neutrophils % Box Stapler 06/15/21 07:38 Seg Neuts % (Manual) 95.0 % (40.0-70.0) H 06/15/21 07:38 Band Neutrophils % 4.0 % 06/15/21 07:38 Lymphocytes % (Manual) 1.0 % (13.4-35.0) L 06/15/21 07:38 Monocytes % (Manual) 3.0 % (0.0-7.3) 06/14/21 04:42 Eosinophils % (Manual) 1.0 % (0.0-4.3) 06/13/21 07:42 Metamyelocytes % 2.0 % 06/10/21 23:14 Myelocytes % 2.0 % 06/14/21 04:42 Nucleated RBC % Not Reportable 06/15/21 07:38 Seg Neutrophils # 10.9 K/mm3 (1.8-7.7) H 06/12/21 08:31 Seg Neutrophils # Man 13.6 K/mm3 (1.8-7.7) H 06/15/21 07:38 Band Neutrophils # 0.6 K/mm3 06/15/21 07:38 Lymphocytes # (Manual) 0.1 K/mm3 (1.2-5.4) L 06/15/21 07:38 Abs React Lymphs (Man) 0.0 K/mm3 06/15/21 07:38 Monocytes # (Manual) 0.0 K/mm3 (0.0-0.8) 06/15/21 07:38 Eosinophils # (Manual) 0.0 K/mm3 (0.0-0.4) 06/15/21 07:38 Basophils # (Manual) 0.0 K/mm3 (0.0-0.1) 06/15/21 07:38 Metamyelocytes # 0.0 K/mm3 06/15/21 07:38 Myelocytes # 0.0 K/mm3 06/15/21 07:38 Promyelocytes # 0.0 K/mm3 06/15/21 07:38 Blast Cells # 0.0 K/mm3 06/15/21 07:38 WBC Morphology Not Reportable 06/15/21 07:38 Hypersegmented Neuts Not Reportable 06/15/21 07:38 Hyposegmented Neuts Not Reportable 06/15/21 07:38 Hypogranular Neuts Not Reportable 06/15/21 07:38 Smudge Cells Not Reportable 06/15/21 07:38 Toxic Granulation Not Reportable 06/15/21 07:38 Toxic Vacuolation Not Reportable 06/15/21 07:38 Dohle Bodies Not Reportable 06/15/21 07:38 Pelger-Huet Anomaly Not Reportable 06/15/21 07:38 Nba Rods Not Reportable 06/15/21 07:38 Platelet Estimate Consistent w auto 06/15/21 07:38 Clumped Platelets Not Reportable 06/15/21 07:38 Plt Clumps, EDTA Not Reportable 06/15/21 07:38 Large Platelets Not Reportable 06/15/21 07:38 Giant Platelets Not Reportable 06/15/21 07:38 Platelet Satelliting Not Reportable 06/15/21 07:38 Plt Morphology Comment Not Reportable 06/15/21 07:38 RBC Morphology Not Reportable 06/15/21 07:38 Dimorphic RBCs Not Reportable 06/15/21 07:38 Polychromasia Not Reportable 06/15/21 07:38 Hypochromasia Not Reportable 06/15/21 07:38 Poikilocytosis Not Reportable 06/15/21 07:38 Anisocytosis Not Reportable 06/15/21 07:38 Microcytosis Not Reportable 06/15/21 07:38 Macrocytosis Not Reportable 06/15/21 07:38 Spherocytes Not Reportable 06/15/21 07:38 Pappenheimer Bodies Not Reportable 06/15/21 07:38 Sickle Cells Not Reportable 06/15/21 07:38 Target Cells Not Reportable 06/15/21 07:38 Tear Drop Cells 1+ 06/15/21 07:38 Ovalocytes 1+ 06/15/21 07:38 Helmet Cells Not Reportable 06/15/21 07:38 [place] Bodies Not Reportable 06/15/21 07:38 [place] Rings Not Reportable 06/15/21 07:38 [place] Cells Not Reportable 06/15/21 07:38 Bite Cells Not Reportable 06/15/21 07:38 Crenated Cell Not Reportable 06/15/21 07:38 Elliptocytes Not Reportable 06/15/21 07:38 Acanthocytes (Spur) Not Reportable 06/15/21 07:38 Rouleaux Not Reportable 06/15/21 07:38 Hemoglobin C Crystals Not Reportable 06/15/21 07:38 Schistocytes Not Reportable 06/15/21 07:38 Malaria parasites Not Reportable 06/15/21 07:38 Luis Bodies Not Reportable 06/15/21 07:38 Hem Pathologist Commnt No 06/15/21 07:38 D-Dimer 9804.08 ng/mlDDU (0-234) H 06/18/21 06:00 ABG pH 7.318 pH Units (7.350-7.450) L 06/12/21 04:22 POC ABG pCO2 34.2 mmHg (32.0-48.0) 06/09/21 12:19 ABG pCO2 40.1 mm Hg 06/12/21 04:22 POC ABG pO2 71.4 mmHg (83-108) L 06/09/21 12:19 ABG pO2 51.5 mm Hg (80.0-90.0) L 06/12/21 04:22 POC ABG HCO3 20.5 06/09/21 12:19 ABG HCO3 20.1 mmol/L (20.0-26.0) 06/12/21 04:22 ABG O2 Saturation 86.9 % (95.0-99.0) L 06/12/21 04:22 ABG O2 Content 16.2 (0.0-44) 06/12/21 04:22 POC ABG Base Excess -3.6 06/09/21 12:19 ABG Base Excess -5.6 mmol/L (-2.0-3.0) L 06/12/21 04:22 ABG Hemoglobin 13.5 gm/dl (12.0-16.0) 06/12/21 04:22 ABG Oxyhemoglobin 92.9 (94-98) L 06/09/21 12:19 ABG Carboxyhemoglobin 1.1 % (0.0-5.0) 06/12/21 04:22 ABG Methemoglobin 0.5 % (0.0-1.5) 06/12/21 04:22 ABG Sodium 143.5 mmol/L (136.0-145.0) 06/09/21 12:19 ABG Potassium 3.6 mmol/L (3.40-4.50) 06/09/21 12:19 ABG Chloride 109.0 mmol/L (98-107) H 06/09/21 12:19 ABG Glucose 287 mg/dL (65-95) H 06/09/21 12:19 Oxyhemoglobin 85.5 % (95.0-99.0) L 06/12/21 04:22 Carboxyhemoglobin 0.4 (0.5-1.5) L 06/09/21 12:19 FiO2 100 % 06/12/21 04:22 FiO2 % 75.0 06/09/21 12:19 Sodium 146 mmol/L (137-145) H 06/19/21 15:46 Potassium 4.1 mmol/L (3.6-5.0) 06/19/21 15:46 Chloride 108.9 mmol/L (98-107) H 06/19/21 15:46 Carbon Dioxide 24 mmol/L (22-30) 06/19/21 15:46 Anion Gap 17 mmol/L 06/19/21 15:46 BUN 38 mg/dL (7-17) H 06/19/21 15:46 Creatinine 1.7 mg/dL (0.6-1.2) H 06/19/21 15:46 Estimated GFR 37 ml/min 06/19/21 15:46 BUN/Creatinine Ratio 22 % 06/19/21 15:46 Glucose 93 mg/dL (65-100) 06/19/21 15:46 POC Glucose 52 mg/dL (70-105) L 06/20/21 08:04 Hemoglobin A1c 9.5 % (4-6) H 06/07/21 19:11 Calcium 8.7 mg/dL (8.4-10.2) 06/19/21 15:46 Phosphorus 3.30 mg/dL (2.5-4.5) 06/14/21 04:42 Magnesium 2.40 mg/dL (1.7-2.3) H 06/14/21 04:42 Ferritin 904.2 ng/mL (10.0-200.0) H 06/18/21 06:00 Total Bilirubin 0.40 mg/dL (0.1-1.2) 06/17/21 09:35 AST 21 units/L (5-40) 06/17/21 09:35 ALT 33 units/L (7-56) 06/17/21 09:35 Alkaline Phosphatase 113 units/L (35-129) 06/17/21 09:35 Lactate Dehydrogenase 606 units/L (91-180) H 06/10/21 23:14 Troponin T 0.021 ng/mL (0.00-0.029) 06/08/21 13:49 C-Reactive Protein 1.90 mg/dL (0.00-1.30) H 06/11/21 10:58 Serum Total Protein 7.0 g/dL (6.1-8.1) 06/10/21 23:14 Total Protein 6.0 g/dL (6.3-8.2) L 06/17/21 09:35 Albumin 2.8 g/dL (3.9-5) L 06/17/21 09:35 Albumin/Globulin Ratio 0.9 % 06/17/21 09:35 Lwgxb-4-Oktgtyxoh 0.5 g/dL (0.2-0.3) H 06/10/21 23:14 Phciz-4-Dgklomnyb 1.7 g/dL (0.5-0.9) H 06/10/21 23:14 Beta Globulins 0.6 g/dL (0.2-0.5) H 06/10/21 23:14 Gamma Globulins 1.3 g/dL (0.8-1.7) 06/10/21 23:14 Abnorm Protein Band 1 see below 06/10/21 23:14 PEP Interpretation see below H 06/10/21 23:14 Triglycerides 209 mg/dL (2-149) H 06/07/21 19:11 Cholesterol 165 mg/dL (50-199) 06/07/21 19:11 LDL Cholesterol Direct 79 mg/dL (50-130) 06/07/21 19:11 HDL Cholesterol 35 mg/dL (40-59) L 06/07/21 19:11 Cholesterol/HDL Ratio 4.71 % 06/07/21 19:11 Procalcitonin 0.91 ng/mL (<0.15) 06/07/21 19:11 Arterial Blood Glucose 287 mg/dL (65-95) H 06/09/21 12:19 Coronavirus (PCR) Positive (Negative) A 06/08/21 08:30 Blood Type B POSITIVE 06/07/21 22:34 Antibody Screen Negative 06/07/21 22:34 Roland/IV: Voiding Method External Female Catheter Active Medications - Current Medications Current Medications: Generic Name Dose Route Start Last Admin Trade Name Freq PRN Reason Stop Dose Admin Acetaminophen 650 mg 06/07/21 21:41 Acetaminophen 325 Mg Tab PO Q4H PRN Pain MILD(1-3)/Fever >100.5/MARTÍNEZ Albuterol 2 puff 06/07/21 23:00 Albuterol 8.5 Gm Mdi Inhalation IH Q4HRT PRN Shortness Of Breath Alprazolam 0.5 mg 06/15/21 04:58 06/15/21 05:33 Alprazolam 0.5 Mg Tab PO 0.5 mg Q8H PRN Administration Anxiety Apixaban 5 mg 06/08/21 10:00 06/19/21 23:43 Apixaban 5 Mg Tab PO 5 mg BID LEONOR Administration Atorvastatin Calcium 10 mg 06/08/21 10:00 06/19/21 11:11 Atorvastatin 10 Mg Tab PO 10 mg DAILY LEONOR Administration Carvedilol 6.25 mg 06/15/21 22:00 06/19/21 23:43 Carvedilol 6.25 Mg Tab PO 6.25 mg BID LEONOR Administration Dextrose 50 ml 06/08/21 12:04 Dextrose 50% In Water (25gm) 50 Ml Syringe IV Q30MIN PRN Hypoglycemia Protocol Docusate Sodium 100 mg 06/07/21 21:33 Docusate Sodium 100 Mg Cap PO BID PRN Constipation Famotidine 10 mg 06/14/21 22:00 06/19/21 23:44 Famotidine 10 Mg Tab PO 10 mg BID LEONOR Administration Guaifenesin 10 ml 06/09/21 00:15 06/11/21 06:12 Guaifenesin Dm 200/20 Mg Oral Liqd 10 Ml PO 10 ml Q4H PRN Administration Cough Hydralazine HCl 25 mg 06/07/21 22:00 06/20/21 05:29 Hydralazine 25 Mg Tab PO 25 mg Q8HR LEONOR Administration Hydromorphone HCl 0.5 mg 06/07/21 21:41 Hydromorphone 1 Mg/1 Ml Inj IV Q3H PRN Pain , Severe (7-10) Hydromorphone HCl 0.25 mg 06/07/21 22:33 Hydromorphone 1 Mg/1 Ml Inj IV Q4H PRN Pain, Moderate (4-6) Hydrophilic Ointment 1 applic 06/13/21 07:30 Lip Therapy Vaseline TP DIRECT PRN Dry Lips Dextrose 1,000 mls @ 150 mls/hr 06/14/21 10:00 06/19/21 05:45 D5w IV Infused DIRECT LEONOR Infusion Insulin Human Isoph/Insulin Regular 30 unit 06/20/21 08:20 Insulin Nph/Regular 70/30 Inj SUB-Q BIDDIAB LEONOR Insulin Human Regular 0 units 06/08/21 12:15 06/19/21 23:44 Insulin Regular, Human 100 Units/1 Ml SUB-Q Not Given ACHS [facility] Protocol Levothyroxine Sodium 75 mcg 06/08/21 06:00 06/20/21 05:30 Levothyroxine 75 Mcg Tab PO 75 mcg QAM@0600 LEONOR Administration Levothyroxine Sodium 200 mcg 06/08/21 06:00 06/20/21 05:30 Levothyroxine 100 Mcg Tab PO 200 mcg DAILY@0600 [facility] Administration Loratadine/Pseudoephedrine Sulfate 1 each 06/08/21 10:00 06/19/21 17:48 Loratadine/Pseudoephedrine 10-240 Mg Tab 24hr PO 1 each Q24HR LEONOR Administration Ondansetron HCl 4 mg 06/07/21 22:00 06/20/21 05:30 Ondansetron 4 Mg Odt Tab PO 4 mg Q8HR LEONOR Administration Ondansetron HCl 4 mg 06/07/21 21:41 06/10/21 06:24 Ondansetron 4 Mg/2 Ml Inj IV 4 mg Q8H PRN Administration Nausea And Vomiting Oxycodone/Acetaminophen 1 tab 06/07/21 21:41 06/09/21 17:05 Oxycodone /Acetaminophen 5-325mg Tab PO 1 tab Q6H PRN Administration Pain, Moderate (4-6) Quetiapine Fumarate 50 mg 06/15/21 22:00 06/19/21 23:44 Quetiapine 25 Mg Tab PO 50 mg QHS LEONOR Administration Sodium Bicarbonate 650 mg 06/10/21 14:00 06/19/21 23:44 Sodium Bicarbonate 650 Mg Tab PO 650 mg TID LEONOR Administration Sodium Chloride 10 ml 06/07/21 22:00 06/19/21 23:46 Sodium Chloride 0.9% 10 Ml Flush Syringe IV 10 ml BID LEONOR Administration Sodium Chloride 10 ml 06/07/21 21:41 Sodium Chloride 0.9% 10 Ml Flush Syringe IV PRN PRN LINE FLUSH Nutrition/Malnutrition Assess - Dietary Evaluation Nutrition/Malnutrition Findings: Nutrition Notes Start: 06/08/21 10:56 Freq: Status: Active Protocol: Document 06/14/21 14:24 GB (Rec: 06/14/21 14:30 GB [email or web address]) Nutrition Notes Initial or Follow up Reassessment Current Diagnosis Acute Kidney Injury,Diabetes, Sepsis,Hypertension, Respiratory Failure Other Pertinent Diagnosis COVID-19 PUI, hypothyroid Current Diet consistent CHO/cardiac, pureed texture Labs/Tests 06/14: Na 152, BUN 68, Creatinine 2.5, glucose 188, Mg 2.4 Pertinent Medications Zofran NS at 10 ml/hr Height 5 ft 11 in Weight 164 kg [place] Body Weight (kg) 70.45 BMI 50.4 Weight change and time frame No significant changes reported. Stable. Weight Status Morbidly Obese Subjective/Other Information Per chart nursing staff recorded PO intake of meals as 100%. Supplement beverages glucerna have been d/c'd. Percent of energy/protein needs met: PO intake of meals 100% TID meets 75% or greater of estimated energy needs. Burn Absent Trauma Absent GI Symptoms None Difficulty In Swallowing,Chewing Food Allergy Yes Current % PO Good (75-100%) Minimum of two criteria No #1 Nutrition Diagnosis Predicted suboptimal energy intake Comments: PO intake of meals recorded currently for one day at 25%, independent with meals. 06/14: PO intake of meals recorded as 100% x2days. Etiology ARF As Evidenced by Signs and Symptoms pt on bipap Diagnosis Progress(for reassessment Improved documentation) Is patient on ventilator? No Is Patient Ambulatory and/or Out of Bed No REE-([facility]-confined to bed) 2771.148 Kcal/Kg value to use for calculation 12 Approximate Energy Requirements Using 1968 kcal/Kg Calculation Used for Recommendations Kcal/kg Additional Notes Protein: (0.8-1g/kg AdjBW) 94- 117g/day Fluid: 1 ml/kcal Nutrition Intervention Change Diet Order: Continue Add Supplement/Snack (indicate name/kcal n/a - history of pt not liking /protein ) nutrition supplement beverages Goal #1 PO intake of meals to improve to 50% or greater TID daily during LOS 06/14: met, PO intake recorded as 100%, continues Goal #2 Weight to maintain within =/-3 % current weight during LOS 06/14: met, continues Follow-Up By: 06/21/21 Additional Comments Nursing continue to record Meal intake.
[2021-06-20] MEDS: INSULIN NPH/REGULAR 70/30 INJ SUB-Q SCH ×3 (09:00→18:52)
[2021-06-20] MEDS: INSULIN REGULAR, HUMAN 100 UNITS/1 ML SUB-Q SCH ×3 (09:00→18:52)
[2021-06-20] MEDS: SODIUM BICARBONATE 650 MG TAB PO SCH ×3 (10:47→22:13)
[2021-06-20] MEDS: FAMOTIDINE 10 MG TAB PO SCH ×2 (10:47→22:13)
[2021-06-20] MEDS: APIXABAN 5 MG TAB PO SCH ×2 (10:48→22:12)
[2021-06-20] MEDS: carvediloL 6.25 MG TAB PO SCH (10:59)
[2021-06-20] MEDS: LORATADINE/PSEUDOEPHEDRINE 10-240 MG TAB 24HR PO SCH (12:13)
[2021-06-20] MEDS: DEXTROSE 50% IN WATER (25GM) 50 ML SYRINGE IV PRN (12:16)
[2021-06-20] MEDS: DEXTROSE 5% IN WATER 1,000 ML IV SCH (12:55)
--- NOTE | 2021-06-20 13:06 | Progress Note ---
Assessment and Plan This is 61-year-old female, Morbidly Obese admitted with shortness of breath that has been ongoing for several days. She had been around family that had been sick with coronavirus symptoms. Patient said she has been vaccinated for COVID-19. She denies vomiting and diarrhea. Reported generalized weakness and difficulty breathing. She has had subjective fevers and chills associate with a cough. Cough has been producing yellowish phlegm. Patient has history of diabetes, Hypertension,Hyperlipidemia and hypothyroidism and CKD. Denies smoking, alcohol or drug abuse. 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 Patient awake. Patient still on vapotherm,and O2 requirements now at 100% and O2 saturation reported 92%. BIPAP stand by in the room. Patients ABGs 06/12/21 reported PH 7.31, [id number], PO2 52, HCO3 20, O2 saturation 87% on 100% FIO2 Patient afebrile and has no leukocytosis. Patients blood pressure 132/83. Pulse 65 Chest xray that was done 06/19/21 showed interval worsening. Patients Repeat Holden virus PCR reported Positive. Patient is on Apixaban, and albuterol inhaler. - Patient Problems (1) Acute respiratory failure with hypoxia Current Visit: Yes Status: Acute Plan to address problem: Patient is on Vapotherm, FIO2 100% Patient Finished course of Dexamethasone. Patient is on Apixaban Continue Famotidine. . (2) Coronavirus infection Current Visit: Yes Status: Acute Plan to address problem: Patientfinished course of dexamethasone Apixaban Management as per infectious diseases. (3) Pneumonia due to COVID-19 virus Current Visit: Yes Status: Acute Plan to address problem: Patient was on Ceftriaxone. (4) Acute kidney injury superimposed on CKD Current Visit: No Status: Acute Plan to address problem: Management as per nephrology. (5) Hypertension Current Visit: No Status: Acute Plan to address problem: Management as per primary care. (6) Diabetes mellitus type 2, insulin dependent Current Visit: No Status: Chronic Plan to address problem: Management as per primary care. (7) Hypothyroidism Current Visit: No Status: Chronic Plan to address problem: Patient is on Levothyroxine. Management as per primary care. (8) Morbid obesity Current Visit: No Status: Chronic Plan to address problem: Recommend to lose weight. Diet and exercise. Recommend sleep study as out patient once she recovered from present problem. Subjective Date of service: 06/20/21 Principal diagnosis: TREMAINE Interval history: This is 61-year-old female, Morbidly Obese admitted with shortness of breath that has been ongoing for several days. She had been around family that had been sick with coronavirus symptoms. Patient said she has been vaccinated for COVID- 19. She denies vomiting and diarrhea. Reported generalized weakness and difficulty breathing. She has had subjective fevers and chills associate with a cough. Cough has been producing yellowish phlegm. Patient has history of linden betes, Hypertension,Hyperlipidemia and hypothyroidism and CKD. Denies smoking, alcohol or drug abuse. 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 Patient awake. Patient still on vapotherm,and O2 requirements now at 100% and O2 saturation reported 92%. BIPAP stand by in the room. Patients ABGs 06/12/21 reported PH 7.31, GLA300, PO2 52, HCO3 20, O2 saturation 87% on 100% FIO2 Patient afebrile and has no leukocytosis. Patients blood pressure 132/83. Pulse 65 Chest xray that was done 06/19/21 showed interval worsening. Patients Repeat Holden virus PCR reported Positive. Patient is on Apixaban, and albuterol inhaler. Objective Vital Signs - 12hr 06/20/21 06/20/21 06/20/21 04:50 10:38 10:59 Pulse Rate 65 Blood Pressure 132/83 O2 Sat by Pulse 91 92 Oximetry Constitutional: no acute distress, alert, other (Morbidly Obese, On Vapotherm 100%.) Eyes: non-icteric ENT: oropharynx moist Neck: supple, no lymphadenopathy Effort: mildly labored Ascultation: Bilateral: diminished breath sounds, rhonchi Cardiovascular: regular rate and rhythm Gastrointestinal: normoactive bowel sounds, soft, non-tender Integumentary: normal Extremities: no cyanosis, no edema Neurologic: normal mental status, non-focal exam, pupils equal and round, CN II- XII normal Psychiatric: mood appropriate, affect normal CBC and BMP: 06/19/21 15:46 06/19/21 15:46 ABG, PT/INR, D-dimer: ABG ABG pH 7.318 pH Units (7.350-7.450) L 06/12/21 04:22 POC ABG pCO2 34.2 mmHg (32.0-48.0) 06/09/21 12:19 ABG pCO2 40.1 mm Hg 06/12/21 04:22 POC ABG pO2 71.4 mmHg (83-108) L 06/09/21 12:19 ABG pO2 51.5 mm Hg (80.0-90.0) L 06/12/21 04:22 POC ABG HCO3 20.5 06/09/21 12:19 ABG O2 Saturation 86.9 % (95.0-99.0) L 06/12/21 04:22 PT/INR, D-dimer D-Dimer 9804.08 ng/mlDDU (0-234) H 06/18/21 06:00 Abnormal lab findings: Abnormal Labs 06/07/21 06/07/21 06/07/21 19:11 19:11 19:11 WBC 11.5 H RBC Hgb Hct RDW Plt Count Lymph % (Auto) 6.5 L Lymph # (Auto) 0.8 L Seg Neutrophils % 89.9 H Seg Neuts % (Manual) Lymphocytes % (Manual) Nucleated RBC % Seg Neutrophils # 10.4 H Seg Neutrophils # Man Lymphocytes # (Manual) D-Dimer 5334.05 H ABG pH POC ABG pO2 ABG pO2 ABG O2 Saturation ABG Base Excess ABG Oxyhemoglobin ABG Chloride ABG Glucose Oxyhemoglobin Carboxyhemoglobin Sodium Potassium Chloride Carbon Dioxide BUN 67 H Creatinine 4.8 H Glucose 244 H POC Glucose Hemoglobin A1c Calcium Magnesium Ferritin Lactate Dehydrogenase 796 H Troponin T 0.043 H C-Reactive Protein 19.60 H Total Protein 8.4 H Albumin 3.1 L Jlaas-9-Wrdaszscd Rnysf-7-Evjfnghxl Beta Globulins PEP Interpretation Triglycerides 209 H HDL Cholesterol 35 L Arterial Blood Glucose Coronavirus (PCR) 06/07/21 06/07/21 06/08/21 19:11 19:11 03:04 WBC RBC Hgb Hct RDW Plt Count Lymph % (Auto) Lymph # (Auto) Seg Neutrophils % Seg Neuts % (Manual) Lymphocytes % (Manual) Nucleated RBC % Seg Neutrophils # Seg Neutrophils # Man Lymphocytes # (Manual) D-Dimer ABG pH POC ABG pO2 ABG pO2 ABG O2 Saturation ABG Base Excess ABG Oxyhemoglobin ABG Chloride ABG Glucose Oxyhemoglobin Carboxyhemoglobin Sodium Potassium Chloride Carbon Dioxide BUN Creatinine Glucose POC Glucose Hemoglobin A1c 9.5 H Calcium Magnesium Ferritin 1230.0 H Lactate Dehydrogenase Troponin T 0.031 H D C-Reactive Protein Total Protein Albumin Jplwz-5-Kcsmkycus Xyggn-0-Xvyvfdquk Beta Globulins PEP Interpretation Triglycerides HDL Cholesterol Arterial Blood Glucose Coronavirus (PCR) 06/08/21 06/08/21 06/08/21 03:44 03:44 08:21 WBC 12.9 H RBC Hgb Hct RDW Plt Count Lymph % (Auto) Lymph # (Auto) Seg Neutrophils % Seg Neuts % (Manual) 95.0 H Lymphocytes % (Manual) 3.0 L Nucleated RBC % Seg Neutrophils # Seg Neutrophils # Man 12.3 H Lymphocytes # (Manual) 0.4 L D-Dimer ABG pH POC ABG pO2 ABG pO2 ABG O2 Saturation ABG Base Excess ABG Oxyhemoglobin ABG Chloride ABG Glucose Oxyhemoglobin Carboxyhemoglobin Sodium Potassium Chloride Carbon Dioxide 20 L D BUN 68 H Creatinine 4.7 H Glucose 218 H POC Glucose 273 H Hemoglobin A1c Calcium Magnesium Ferritin Lactate Dehydrogenase Troponin T C-Reactive Protein Total Protein Albumin 3.4 L Efjwi-9-Jyyrmjpys Qpltw-0-Bhiymauan Beta Globulins PEP Interpretation Triglycerides HDL Cholesterol Arterial Blood Glucose Coronavirus (PCR) 06/08/21 06/08/21 06/08/21 08:30 11:00 17:29 WBC RBC Hgb Hct RDW Plt Count Lymph % (Auto) Lymph # (Auto) Seg Neutrophils % Seg Neuts % (Manual) Lymphocytes % (Manual) Nucleated RBC % Seg Neutrophils # Seg Neutrophils # Man Lymphocytes # (Manual) D-Dimer ABG pH POC ABG pO2 ABG pO2 ABG O2 Saturation ABG Base Excess ABG Oxyhemoglobin ABG Chloride ABG Glucose Oxyhemoglobin Carboxyhemoglobin Sodium Potassium Chloride Carbon Dioxide BUN Creatinine Glucose POC Glucose 239 H 220 H Hemoglobin A1c Calcium Magnesium Ferritin Lactate Dehydrogenase Troponin T C-Reactive Protein Total Protein Albumin Oweoz-3-Rtpsnxnoq Qrdju-5-Yzwdfcllb Beta Globulins PEP Interpretation Triglycerides HDL Cholesterol Arterial Blood Glucose Coronavirus (PCR) Positive A 06/08/21 06/09/21 06/09/21 21:09 08:07 08:42 WBC 14.7 H RBC 5.28 H Hgb 14.9 H Hct 45.0 H D RDW Plt Count Lymph % (Auto) 4.9 L Lymph # (Auto) 0.7 L Seg Neutrophils % 90.0 H Seg Neuts % (Manual) Lymphocytes % (Manual) Nucleated RBC % Seg Neutrophils # 13.2 H Seg Neutrophils # Man Lymphocytes # (Manual) D-Dimer ABG pH POC ABG pO2 ABG pO2 ABG O2 Saturation ABG Base Excess ABG Oxyhemoglobin ABG Chloride ABG Glucose Oxyhemoglobin Carboxyhemoglobin Sodium Potassium Chloride Carbon Dioxide BUN Creatinine Glucose POC Glucose 242 H 230 H Hemoglobin A1c Calcium Magnesium Ferritin Lactate Dehydrogenase Troponin T C-Reactive Protein Total Protein Albumin Gtsgk-5-Ifpifsqls Jcvnp-5-Vqljoaupa Beta Globulins PEP Interpretation Triglycerides HDL Cholesterol Arterial Blood Glucose Coronavirus (PCR) 06/09/21 06/09/21 06/09/21 08:42 12:05 12:19 WBC RBC Hgb Hct RDW Plt Count Lymph % (Auto) Lymph # (Auto) Seg Neutrophils % Seg Neuts % (Manual) Lymphocytes % (Manual) Nucleated RBC % Seg Neutrophils # Seg Neutrophils # Man Lymphocytes # (Manual) D-Dimer ABG pH POC ABG pO2 71.4 L ABG pO2 ABG O2 Saturation ABG Base Excess ABG Oxyhemoglobin 92.9 L ABG Chloride 109.0 H ABG Glucose 287 H Oxyhemoglobin Carboxyhemoglobin 0.4 L Sodium Potassium Chloride Carbon Dioxide 17 L BUN 74 H Creatinine 3.7 H Glucose 259 H POC Glucose 274 H Hemoglobin A1c Calcium 8.3 L Magnesium Ferritin Lactate Dehydrogenase Troponin T C-Reactive Protein Total Protein Albumin Bwzcd-7-Ahptnmlsi Qxwem-3-Utchylhpu Beta Globulins PEP Interpretation Triglycerides HDL Cholesterol Arterial Blood Glucose 287 H Coronavirus (PCR) 06/09/21 06/09/21 06/10/21 16:59 21:06 08:25 WBC RBC Hgb Hct RDW Plt Count Lymph % (Auto) Lymph # (Auto) Seg Neutrophils % Seg Neuts % (Manual) Lymphocytes % (Manual) Nucleated RBC % Seg Neutrophils # Seg Neutrophils # Man Lymphocytes # (Manual) D-Dimer ABG pH POC ABG pO2 ABG pO2 ABG O2 Saturation ABG Base Excess ABG Oxyhemoglobin ABG Chloride ABG Glucose Oxyhemoglobin Carboxyhemoglobin Sodium Potassium Chloride Carbon Dioxide BUN Creatinine Glucose POC Glucose 268 H 263 H 280 H Hemoglobin A1c Calcium Magnesium Ferritin Lactate Dehydrogenase Troponin T C-Reactive Protein Total Protein Albumin Oazpd-0-Nregbyirj Xghzc-0-Dfvflhdzd Beta Globulins PEP Interpretation Triglycerides HDL Cholesterol Arterial Blood Glucose Coronavirus (PCR) 06/10/21 06/10/21 06/10/21 12:07 15:38 21:04 WBC RBC Hgb Hct RDW Plt Count Lymph % (Auto) Lymph # (Auto) Seg Neutrophils % Seg Neuts % (Manual) Lymphocytes % (Manual) Nucleated RBC % Seg Neutrophils # Seg Neutrophils # Man Lymphocytes # (Manual) D-Dimer ABG pH POC ABG pO2 ABG pO2 ABG O2 Saturation ABG Base Excess ABG Oxyhemoglobin ABG Chloride ABG Glucose Oxyhemoglobin Carboxyhemoglobin Sodium Potassium Chloride Carbon Dioxide BUN Creatinine Glucose POC Glucose 247 H 269 H 195 H Hemoglobin A1c Calcium Magnesium Ferritin Lactate Dehydrogenase Troponin T C-Reactive Protein Total Protein Albumin Xidss-8-Ngmfsyyhx Lnsyk-9-Fghfywvam Beta Globulins PEP Interpretation Triglycerides HDL Cholesterol Arterial Blood Glucose Coronavirus (PCR) 06/10/21 06/10/21 06/10/21 23:14 23:14 23:14 WBC RBC Hgb Hct RDW 15.3 H Plt Count Lymph % (Auto) Lymph # (Auto) Seg Neutrophils % Seg Neuts % (Manual) 93.0 H Lymphocytes % (Manual) 2.0 L Nucleated RBC % 3.0 H Seg Neutrophils # Seg Neutrophils # Man 10.2 H Lymphocytes # (Manual) 0.2 L D-Dimer ABG pH POC ABG pO2 ABG pO2 ABG O2 Saturation ABG Base Excess ABG Oxyhemoglobin ABG Chloride ABG Glucose Oxyhemoglobin Carboxyhemoglobin Sodium 148 H D Potassium Chloride 111.7 H Carbon Dioxide 20 L BUN 70 H Creatinine 3.2 H Glucose 186 H POC Glucose Hemoglobin A1c Calcium Magnesium Ferritin Lactate Dehydrogenase Troponin T C-Reactive Protein Total Protein Albumin 2.6 L Ukgsn-2-Bdnwjzdhy 0.5 H Cqogd-9-Sdhhotkku 1.7 H Beta Globulins 0.6 H PEP Interpretation see below H Triglycerides HDL Cholesterol Arterial Blood Glucose Coronavirus (PCR) 06/10/21 06/10/21 06/10/21 23:14 23:14 23:14 WBC RBC Hgb Hct RDW Plt Count Lymph % (Auto) Lymph # (Auto) Seg Neutrophils % Seg Neuts % (Manual) Lymphocytes % (Manual) Nucleated RBC % Seg Neutrophils # Seg Neutrophils # Man Lymphocytes # (Manual) D-Dimer > 06582 H ABG pH POC ABG pO2 ABG pO2 ABG O2 Saturation ABG Base Excess ABG Oxyhemoglobin ABG Chloride ABG Glucose Oxyhemoglobin Carboxyhemoglobin Sodium Potassium Chloride Carbon Dioxide BUN Creatinine Glucose POC Glucose Hemoglobin A1c Calcium Magnesium 2.50 H Ferritin 1319.0 H Lactate Dehydrogenase 606 H Troponin T C-Reactive Protein Total Protein Albumin Jeuzm-1-Avwudkphr Soyas-1-Cxzxxxdoi Beta Globulins PEP Interpretation Triglycerides HDL Cholesterol Arterial Blood Glucose Coronavirus (PCR) 06/11/21 06/11/21 06/11/21 07:34 10:57 10:57 WBC RBC Hgb Hct RDW Plt Count Lymph % (Auto) Lymph # (Auto) Seg Neutrophils % Seg Neuts % (Manual) Lymphocytes % (Manual) Nucleated RBC % Seg Neutrophils # Seg Neutrophils # Man Lymphocytes # (Manual) D-Dimer > 33200 H ABG pH POC ABG pO2 ABG pO2 ABG O2 Saturation ABG Base Excess ABG Oxyhemoglobin ABG Chloride ABG Glucose Oxyhemoglobin Carboxyhemoglobin Sodium Potassium Chloride Carbon Dioxide BUN Creatinine Glucose POC Glucose 169 H Hemoglobin A1c Calcium Magnesium Ferritin 1300.0 H Lactate Dehydrogenase Troponin T C-Reactive Protein Total Protein Albumin Xnjkg-9-Nvdhaqksx Wjlaz-8-Ymcevocbu Beta Globulins PEP Interpretation Triglycerides HDL Cholesterol Arterial Blood Glucose Coronavirus (PCR) 06/11/21 06/11/21 06/11/21 10:58 10:58 11:49 WBC 11.3 H RBC Hgb Hct RDW 15.3 H Plt Count Lymph % (Auto) Lymph # (Auto) Seg Neutrophils % Seg Neuts % (Manual) 88.0 H Lymphocytes % (Manual) 6.0 L Nucleated RBC % Seg Neutrophils # Seg Neutrophils # Man 9.9 H Lymphocytes # (Manual) 0.7 L D-Dimer ABG pH POC ABG pO2 ABG pO2 ABG O2 Saturation ABG Base Excess ABG Oxyhemoglobin ABG Chloride ABG Glucose Oxyhemoglobin Carboxyhemoglobin Sodium 150 H Potassium 3.4 L Chloride 114.8 H Carbon Dioxide 21 L BUN 65 H Creatinine 2.9 H Glucose 180 H POC Glucose 191 H Hemoglobin A1c Calcium Magnesium 2.50 H Ferritin Lactate Dehydrogenase Troponin T C-Reactive Protein 1.90 H Total Protein Albumin Mvdkm-2-Wkudhlhuo Ghylv-9-Rbksxtosc Beta Globulins PEP Interpretation Triglycerides HDL Cholesterol Arterial Blood Glucose Coronavirus (PCR) 06/11/21 06/11/21 06/12/21 15:49 21:16 04:22 WBC RBC Hgb Hct RDW Plt Count Lymph % (Auto) Lymph # (Auto) Seg Neutrophils % Seg Neuts % (Manual) Lymphocytes % (Manual) Nucleated RBC % Seg Neutrophils # Seg Neutrophils # Man Lymphocytes # (Manual) D-Dimer ABG pH 7.318 L POC ABG pO2 ABG pO2 51.5 L ABG O2 Saturation 86.9 L ABG Base Excess -5.6 L ABG Oxyhemoglobin ABG Chloride ABG Glucose Oxyhemoglobin 85.5 L Carboxyhemoglobin Sodium Potassium Chloride Carbon Dioxide BUN Creatinine Glucose POC Glucose 185 H 200 H Hemoglobin A1c Calcium Magnesium Ferritin Lactate Dehydrogenase Troponin T C-Reactive Protein Total Protein Albumin Fnyck-0-Tiywfjsoj Cdkmo-5-Ujuiwygwe Beta Globulins PEP Interpretation Triglycerides HDL Cholesterol Arterial Blood Glucose Coronavirus (PCR) 06/12/21 06/12/21 06/12/21 07:41 08:31 08:31 WBC 12.4 H RBC Hgb Hct RDW 15.3 H Plt Count Lymph % (Auto) 8.5 L Lymph # (Auto) 1.1 L Seg Neutrophils % 88.1 H Seg Neuts % (Manual) Lymphocytes % (Manual) Nucleated RBC % Seg Neutrophils # 10.9 H Seg Neutrophils # Man Lymphocytes # (Manual) D-Dimer ABG pH POC ABG pO2 ABG pO2 ABG O2 Saturation ABG Base Excess ABG Oxyhemoglobin ABG Chloride ABG Glucose Oxyhemoglobin Carboxyhemoglobin Sodium 151 H Potassium Chloride 117.3 H Carbon Dioxide 21 L BUN 61 H Creatinine 2.5 H Glucose 165 H POC Glucose 165 H Hemoglobin A1c Calcium 8.3 L Magnesium Ferritin Lactate Dehydrogenase Troponin T C-Reactive Protein Total Protein Albumin Wvrnx-4-Fhxygqhxi Tmahc-3-Sswnuimbj Beta Globulins PEP Interpretation Triglycerides HDL Cholesterol Arterial Blood Glucose Coronavirus (PCR) 06/12/21 06/12/21 06/12/21 08:31 10:32 15:47 WBC RBC Hgb Hct RDW Plt Count Lymph % (Auto) Lymph # (Auto) Seg Neutrophils % Seg Neuts % (Manual) Lymphocytes % (Manual) Nucleated RBC % Seg Neutrophils # Seg Neutrophils # Man Lymphocytes # (Manual) D-Dimer ABG pH POC ABG pO2 ABG pO2 ABG O2 Saturation ABG Base Excess ABG Oxyhemoglobin ABG Chloride ABG Glucose Oxyhemoglobin Carboxyhemoglobin Sodium Potassium Chloride Carbon Dioxide BUN Creatinine Glucose POC Glucose 156 H 176 H Hemoglobin A1c Calcium Magnesium 2.50 H Ferritin Lactate Dehydrogenase Troponin T C-Reactive Protein Total Protein Albumin Qzuce-2-Rrwumedbt Klqve-0-Ngnwmrnzq Beta Globulins PEP Interpretation Triglycerides HDL Cholesterol Arterial Blood Glucose Coronavirus (PCR) 06/12/21 06/13/21 06/13/21 21:50 07:42 07:42 WBC 14.1 H RBC Hgb Hct RDW 15.3 H Plt Count Lymph % (Auto) Lymph # (Auto) Seg Neutrophils % Seg Neuts % (Manual) 87.0 H Lymphocytes % (Manual) 7.0 L Nucleated RBC % 3.0 H Seg Neutrophils # Seg Neutrophils # Man 12.3 H Lymphocytes # (Manual) 1.0 L D-Dimer ABG pH POC ABG pO2 ABG pO2 ABG O2 Saturation ABG Base Excess ABG Oxyhemoglobin ABG Chloride ABG Glucose Oxyhemoglobin Carboxyhemoglobin Sodium 151 H Potassium 3.5 L Chloride 116.0 H Carbon Dioxide BUN 61 H Creatinine 2.3 H Glucose 135 H POC Glucose 165 H Hemoglobin A1c Calcium Magnesium 2.50 H Ferritin Lactate Dehydrogenase Troponin T C-Reactive Protein Total Protein Albumin Gauqg-1-Ybktfbmoq Yugpp-5-Wnpikimkw Beta Globulins PEP Interpretation Triglycerides HDL Cholesterol Arterial Blood Glucose Coronavirus (PCR) 06/13/21 06/13/21 06/13/21 08:10 11:10 18:15 WBC RBC Hgb Hct RDW Plt Count Lymph % (Auto) Lymph # (Auto) Seg Neutrophils % Seg Neuts % (Manual) Lymphocytes % (Manual) Nucleated RBC % Seg Neutrophils # Seg Neutrophils # Man Lymphocytes # (Manual) D-Dimer ABG pH POC ABG pO2 ABG pO2 ABG O2 Saturation ABG Base Excess ABG Oxyhemoglobin ABG Chloride ABG Glucose Oxyhemoglobin Carboxyhemoglobin Sodium Potassium Chloride Carbon Dioxide BUN Creatinine Glucose POC Glucose 118 H 139 H 179 H Hemoglobin A1c Calcium Magnesium Ferritin Lactate Dehydrogenase Troponin T C-Reactive Protein Total Protein Albumin Ehmrv-1-Izwgfiqwn Auskg-3-Bhoakxdbz Beta Globulins PEP Interpretation Triglycerides HDL Cholesterol Arterial Blood Glucose Coronavirus (PCR) 06/13/21 06/13/21 06/14/21 21:54 23:27 04:42 WBC 12.8 H RBC Hgb Hct RDW 15.3 H Plt Count Lymph % (Auto) Lymph # (Auto) Seg Neutrophils % Seg Neuts % (Manual) 92.0 H Lymphocytes % (Manual) 1.0 L Nucleated RBC % 2.0 H Seg Neutrophils # Seg Neutrophils # Man 11.8 H Lymphocytes # (Manual) 0.1 L D-Dimer ABG pH POC ABG pO2 ABG pO2 ABG O2 Saturation ABG Base Excess ABG Oxyhemoglobin ABG Chloride ABG Glucose Oxyhemoglobin Carboxyhemoglobin Sodium 152 H Potassium Chloride 116.3 H Carbon Dioxide 21 L BUN 67 H Creatinine 2.5 H Glucose 212 H POC Glucose 193 H Hemoglobin A1c Calcium Magnesium Ferritin Lactate Dehydrogenase Troponin T C-Reactive Protein Total Protein Albumin Uxrtg-6-Qhltpnkui Fecgc-4-Mhrsuronh Beta Globulins PEP Interpretation Triglycerides HDL Cholesterol Arterial Blood Glucose Coronavirus (PCR) 06/14/21 06/14/21 06/14/21 04:42 04:42 07:33 WBC RBC Hgb Hct RDW Plt Count Lymph % (Auto) Lymph # (Auto) Seg Neutrophils % Seg Neuts % (Manual) Lymphocytes % (Manual) Nucleated RBC % Seg Neutrophils # Seg Neutrophils # Man Lymphocytes # (Manual) D-Dimer ABG pH POC ABG pO2 ABG pO2 ABG O2 Saturation ABG Base Excess ABG Oxyhemoglobin ABG Chloride ABG Glucose Oxyhemoglobin Carboxyhemoglobin Sodium 152 H Potassium Chloride 115.3 H Carbon Dioxide BUN 68 H Creatinine 2.5 H Glucose 188 H POC Glucose 173 H Hemoglobin A1c Calcium Magnesium 2.40 H Ferritin Lactate Dehydrogenase Troponin T C-Reactive Protein Total Protein Albumin Lyirc-8-Lsjcpeind Uhfjd-5-Fwuluevvy Beta Globulins PEP Interpretation Triglycerides HDL Cholesterol Arterial Blood Glucose Coronavirus (PCR) 06/14/21 06/14/21 06/14/21 10:57 15:53 23:40 WBC RBC Hgb Hct RDW Plt Count Lymph % (Auto) Lymph # (Auto) Seg Neutrophils % Seg Neuts % (Manual) Lymphocytes % (Manual) Nucleated RBC % Seg Neutrophils # Seg Neutrophils # Man Lymphocytes # (Manual) D-Dimer ABG pH POC ABG pO2 ABG pO2 ABG O2 Saturation ABG Base Excess ABG Oxyhemoglobin ABG Chloride ABG Glucose Oxyhemoglobin Carboxyhemoglobin Sodium Potassium Chloride Carbon Dioxide BUN Creatinine Glucose POC Glucose 195 H 226 H 235 H Hemoglobin A1c Calcium Magnesium Ferritin Lactate Dehydrogenase Troponin T C-Reactive Protein Total Protein Albumin Ntrap-5-Stbusxsss Qysrt-7-Qotinfkxj Beta Globulins PEP Interpretation Triglycerides HDL Cholesterol Arterial Blood Glucose Coronavirus (PCR) 06/15/21 06/15/21 06/15/21 07:38 07:38 07:38 WBC 14.3 H RBC Hgb Hct RDW Plt Count Lymph % (Auto) Lymph # (Auto) Seg Neutrophils % Seg Neuts % (Manual) 95.0 H Lymphocytes % (Manual) 1.0 L Nucleated RBC % Seg Neutrophils # Seg Neutrophils # Man 13.6 H Lymphocytes # (Manual) 0.1 L D-Dimer > 42073 H ABG pH POC ABG pO2 ABG pO2 ABG O2 Saturation ABG Base Excess ABG Oxyhemoglobin ABG Chloride ABG Glucose Oxyhemoglobin Carboxyhemoglobin Sodium 153 H Potassium 3.5 L Chloride 115.9 H Carbon Dioxide BUN 55 H Creatinine 2.1 H Glucose 213 H POC Glucose Hemoglobin A1c Calcium Magnesium Ferritin Lactate Dehydrogenase Troponin T C-Reactive Protein Total Protein Albumin Nelzx-7-Fwksweqmu Nuhzs-4-Dpwhxgpqx Beta Globulins PEP Interpretation Triglycerides HDL Cholesterol Arterial Blood Glucose Coronavirus (PCR) 06/15/21 06/15/21 06/15/21 07:38 09:21 11:46 WBC RBC Hgb Hct RDW Plt Count Lymph % (Auto) Lymph # (Auto) Seg Neutrophils % Seg Neuts % (Manual) Lymphocytes % (Manual) Nucleated RBC % Seg Neutrophils # Seg Neutrophils # Man Lymphocytes # (Manual) D-Dimer ABG pH POC ABG pO2 ABG pO2 ABG O2 Saturation ABG Base Excess ABG Oxyhemoglobin ABG Chloride ABG Glucose Oxyhemoglobin Carboxyhemoglobin Sodium Potassium Chloride Carbon Dioxide BUN Creatinine Glucose POC Glucose 202 H 233 H Hemoglobin A1c Calcium Magnesium Ferritin 1246.0 H Lactate Dehydrogenase Troponin T C-Reactive Protein Total Protein Albumin Lghxb-6-Rvveswicx Pzjmt-8-Qrgllyyku Beta Globulins PEP Interpretation Triglycerides HDL Cholesterol Arterial Blood Glucose Coronavirus (PCR) 06/15/21 06/16/21 06/16/21 17:32 05:44 07:48 WBC RBC Hgb Hct RDW Plt Count Lymph % (Auto) Lymph # (Auto) Seg Neutrophils % Seg Neuts % (Manual) Lymphocytes % (Manual) Nucleated RBC % Seg Neutrophils # Seg Neutrophils # Man Lymphocytes # (Manual) D-Dimer ABG pH POC ABG pO2 ABG pO2 ABG O2 Saturation ABG Base Excess ABG Oxyhemoglobin ABG Chloride ABG Glucose Oxyhemoglobin Carboxyhemoglobin Sodium 154 H Potassium Chloride 117.2 H Carbon Dioxide BUN 54 H Creatinine 2.0 H Glucose 120 H POC Glucose 179 H 109 H Hemoglobin A1c Calcium Magnesium Ferritin Lactate Dehydrogenase Troponin T C-Reactive Protein Total Protein Albumin Bstme-4-Phzjsyvlm Lztam-3-Imjsbgzrn Beta Globulins PEP Interpretation Triglycerides HDL Cholesterol Arterial Blood Glucose Coronavirus (PCR) 06/16/21 06/16/21 06/16/21 11:13 15:22 21:15 WBC RBC Hgb Hct RDW Plt Count Lymph % (Auto) Lymph # (Auto) Seg Neutrophils % Seg Neuts % (Manual) Lymphocytes % (Manual) Nucleated RBC % Seg Neutrophils # Seg Neutrophils # Man Lymphocytes # (Manual) D-Dimer ABG pH POC ABG pO2 ABG pO2 ABG O2 Saturation ABG Base Excess ABG Oxyhemoglobin ABG Chloride ABG Glucose Oxyhemoglobin Carboxyhemoglobin Sodium Potassium Chloride Carbon Dioxide BUN Creatinine Glucose POC Glucose 222 H 218 H 250 H Hemoglobin A1c Calcium Magnesium Ferritin Lactate Dehydrogenase Troponin T C-Reactive Protein Total Protein Albumin Paobp-8-Laiifutco Zkelp-1-Qguefwdyx Beta Globulins PEP Interpretation Triglycerides HDL Cholesterol Arterial Blood Glucose Coronavirus (PCR) 06/17/21 06/17/21 06/17/21 07:55 09:35 09:35 WBC RBC Hgb Hct RDW 15.7 H Plt Count 99 L Lymph % (Auto) Lymph # (Auto) Seg Neutrophils % Seg Neuts % (Manual) Lymphocytes % (Manual) Nucleated RBC % Seg Neutrophils # Seg Neutrophils # Man Lymphocytes # (Manual) D-Dimer ABG pH POC ABG pO2 ABG pO2 ABG O2 Saturation ABG Base Excess ABG Oxyhemoglobin ABG Chloride ABG Glucose Oxyhemoglobin Carboxyhemoglobin Sodium 148 H Potassium Chloride 113.3 H Carbon Dioxide BUN 45 H Creatinine 1.8 H Glucose 202 H POC Glucose 158 H Hemoglobin A1c Calcium Magnesium Ferritin Lactate Dehydrogenase Troponin T C-Reactive Protein Total Protein 6.0 L Albumin 2.8 L Akdiv-8-Pyorrieks Fzglj-6-Vatvgukov Beta Globulins PEP Interpretation Triglycerides HDL Cholesterol Arterial Blood Glucose Coronavirus (PCR) 06/17/21 06/17/21 06/18/21 12:32 16:46 06:00 WBC RBC Hgb Hct RDW Plt Count Lymph % (Auto) Lymph # (Auto) Seg Neutrophils % Seg Neuts % (Manual) Lymphocytes % (Manual) Nucleated RBC % Seg Neutrophils # Seg Neutrophils # Man Lymphocytes # (Manual) D-Dimer 9804.08 H ABG pH POC ABG pO2 ABG pO2 ABG O2 Saturation ABG Base Excess ABG Oxyhemoglobin ABG Chloride ABG Glucose Oxyhemoglobin Carboxyhemoglobin Sodium Potassium Chloride Carbon Dioxide BUN Creatinine Glucose POC Glucose 227 H 203 H Hemoglobin A1c Calcium Magnesium Ferritin Lactate Dehydrogenase Troponin T C-Reactive Protein Total Protein Albumin Yfguf-6-Iwkntthpc Yyipx-7-Fjkxcqopv Beta Globulins PEP Interpretation Triglycerides HDL Cholesterol Arterial Blood Glucose Coronavirus (PCR) 06/18/21 06/18/21 06/18/21 06:00 08:00 10:10 WBC RBC Hgb Hct RDW Plt Count Lymph % (Auto) Lymph # (Auto) Seg Neutrophils % Seg Neuts % (Manual) Lymphocytes % (Manual) Nucleated RBC % Seg Neutrophils # Seg Neutrophils # Man Lymphocytes # (Manual) D-Dimer ABG pH POC ABG pO2 ABG pO2 ABG O2 Saturation ABG Base Excess ABG Oxyhemoglobin ABG Chloride ABG Glucose Oxyhemoglobin Carboxyhemoglobin Sodium Potassium Chloride 110.1 H Carbon Dioxide BUN 39 H Creatinine 1.8 H Glucose 135 H POC Glucose 107 H Hemoglobin A1c Calcium Magnesium Ferritin 904.2 H Lactate Dehydrogenase Troponin T C-Reactive Protein Total Protein Albumin Dxyzo-4-Fxychafic Cwbts-3-Rsdkeylxe Beta Globulins PEP Interpretation Triglycerides HDL Cholesterol Arterial Blood Glucose Coronavirus (PCR) 06/18/21 06/18/21 06/18/21 12:06 16:47 21:14 WBC RBC Hgb Hct RDW Plt Count Lymph % (Auto) Lymph # (Auto) Seg Neutrophils % Seg Neuts % (Manual) Lymphocytes % (Manual) Nucleated RBC % Seg Neutrophils # Seg Neutrophils # Man Lymphocytes # (Manual) D-Dimer ABG pH POC ABG pO2 ABG pO2 ABG O2 Saturation ABG Base Excess ABG Oxyhemoglobin ABG Chloride ABG Glucose Oxyhemoglobin Carboxyhemoglobin Sodium Potassium Chloride Carbon Dioxide BUN Creatinine Glucose POC Glucose 160 H 236 H 186 H Hemoglobin A1c Calcium Magnesium Ferritin Lactate Dehydrogenase Troponin T C-Reactive Protein Total Protein Albumin Hvqvt-3-Xripfqwit Oetjv-0-Yjipwvxqs Beta Globulins PEP Interpretation Triglycerides HDL Cholesterol Arterial Blood Glucose Coronavirus (PCR) 06/19/21 06/19/21 06/20/21 15:46 15:46 08:04 WBC RBC Hgb Hct RDW 15.5 H Plt Count 73 L Lymph % (Auto) Lymph # (Auto) Seg Neutrophils % Seg Neuts % (Manual) Lymphocytes % (Manual) Nucleated RBC % Seg Neutrophils # Seg Neutrophils # Man Lymphocytes # (Manual) D-Dimer ABG pH POC ABG pO2 ABG pO2 ABG O2 Saturation ABG Base Excess ABG Oxyhemoglobin ABG Chloride ABG Glucose Oxyhemoglobin Carboxyhemoglobin Sodium 146 H Potassium Chloride 108.9 H Carbon Dioxide BUN 38 H Creatinine 1.7 H Glucose POC Glucose 52 L Hemoglobin A1c Calcium Magnesium Ferritin Lactate Dehydrogenase Troponin T C-Reactive Protein Total Protein Albumin Yomzw-8-Inywaoies Jpedl-8-Lflnmwtbr Beta Globulins PEP Interpretation Triglycerides HDL Cholesterol Arterial Blood Glucose Coronavirus (PCR) 06/20/21 11:58 WBC RBC Hgb Hct RDW Plt Count Lymph % (Auto) Lymph # (Auto) Seg Neutrophils % Seg Neuts % (Manual) Lymphocytes % (Manual) Nucleated RBC % Seg Neutrophils # Seg Neutrophils # Man Lymphocytes # (Manual) D-Dimer ABG pH POC ABG pO2 ABG pO2 ABG O2 Saturation ABG Base Excess ABG Oxyhemoglobin ABG Chloride ABG Glucose Oxyhemoglobin Carboxyhemoglobin Sodium Potassium Chloride Carbon Dioxide BUN Creatinine Glucose POC Glucose 58 L Hemoglobin A1c Calcium Magnesium Ferritin Lactate Dehydrogenase Troponin T C-Reactive Protein Total Protein Albumin Pkifs-2-Dzlwmupql Eukpj-5-Wgivmjadk Beta Globulins PEP Interpretation Triglycerides HDL Cholesterol Arterial Blood Glucose Coronavirus (PCR) Chest x-ray: report reviewed, image reviewed Additional Studies: CHEST 1 VIEW 06/19/2021 7:26 AM INDICATION / CLINICAL INFORMATION: Follow up on Pneumonia. COMPARISON: 06/07/2021 FINDINGS: SUPPORT DEVICES: None. HEART / MEDIASTINUM: No significant abnormality. LUNGS / PLEURA: Increased bilateral airspace opacities. No pneumothorax. ADDITIONAL FINDINGS: No significant additional findings. IMPRESSION: 1. Interval worsening.
--- NOTE | 2021-06-20 14:16 | Electrocardiograph Report ---
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
--- NOTE | 2021-06-20 14:28 | Progress Note ---
Assessment and Plan Assessment and Plan COVID-19 breakthrough infection COVID-19 pneumonia Acute renal failure versus acute on chronic renal failure Acute hypoxic respiratory failure Insulin-dependent type 2 diabetes- uncontrolled Elevated troponin Hypertension-controlled Hypothyroidism Protein calorie malnutrition Hypernatremia Plan Labs pending today, reviewed labs from yesterday which showed SCr level was trending down Renal US was negative for hydronephrosis Yesterday pt had serum Na level of 146, labs pending today On D5W infusion at 150 ml/hr Renally dose medications Strict I&O's daily Intake= 1440 ml Output= 800 ml (Net= 640 ml) Renal plan reviewed by Dr Schultz Subjective Date of service: 06/20/21 Principal diagnosis: TREMAINE Interval history: Pt on isolation for covid-19, reviewed medical chart, labs, and notes Objective - Vital Signs Vital signs: Vital Signs - 12hr 06/20/21 06/20/21 06/20/21 04:50 10:38 10:59 Pulse Rate 65 Blood Pressure 132/83 O2 Sat by Pulse 91 92 Oximetry - Lab 06/19/21 15:46 06/19/21 15:46 Most recent lab results ABG pH 7.318 pH Units (7.350-7.450) L 06/12/21 04:22 ABG pCO2 40.1 mm Hg 06/12/21 04:22 ABG pO2 51.5 mm Hg (80.0-90.0) L 06/12/21 04:22 ABG HCO3 20.1 mmol/L (20.0-26.0) 06/12/21 04:22 ABG O2 Saturation 86.9 % (95.0-99.0) L 06/12/21 04:22 Calcium 8.7 mg/dL (8.4-10.2) 06/19/21 15:46 Phosphorus 3.30 mg/dL (2.5-4.5) 06/14/21 04:42 Magnesium 2.40 mg/dL (1.7-2.3) H 06/14/21 04:42 Medications & Allergies - Medications Allergies/Adverse Reactions: Allergies latex Allergy (Verified 03/19/19 17:03) Unknown shellfish derived Allergy (Verified 03/19/19 17:03) Anaphylaxis strawberry Allergy (Verified 03/19/19 17:03) Anaphylaxis tomato Allergy (Verified 03/19/19 17:03) Anaphylaxis nuts Allergy (Uncoded 03/19/19 17:03) Anaphylaxis Home Medications: Home Medications Medication Instructions Recorded Confirmed Last Taken Type Albuterol Sulfate [Ventolin HFA] 2 puff IH Q4H PRN 01/29/14 06/11/21 02/01/15 History Levothyroxine (Nf) [Synthroid (Nf)] 275 mcg PO QAM 01/29/14 06/11/21 02/01/15 History Fluticasone/Salmeterol [Advair 1 each IH PRN PRN 01/26/15 06/11/21 02/02/15 10:00 History Diskus 250-50 mcg] Apixaban [Eliquis starter pack] 5 mg PO BID 09/13/19 06/11/21 Unknown History Insulin Aspart Prot/Insuln Asp 45 unit SUB-Q QAM 09/13/19 06/11/21 Unknown History [Novolog Mix 70-30 Flexpen] Insulin Glargine,Hum.rec.anlog 25 unit SQ HS 09/13/19 06/11/21 Unknown History [Basaglar Kwikpen U-100] Lovastatin [Altoprev] 20 mg PO DAILY 09/13/19 06/11/21 Unknown History Docusate Sodium [Colace CAP] 100 mg PO BID PRN #30 capsule 09/17/19 06/11/21 Unknown Rx Loratadine/Pseudoephedrine 1 each PO Q24HR #10 tablet 09/17/19 06/11/21 Unknown Rx [Claritin-D 24HR] Ondansetron [Zofran Odt] 4 mg PO Q8HR #20 tab.rapdis 09/17/19 06/11/21 Unknown Rx carvediloL [Coreg] 3.125 mg PO BID #60 tablet 09/17/19 06/11/21 Unknown Rx hydrALAZINE [Apresoline TAB] 25 mg PO Q8HR #90 tablet 09/17/19 06/11/21 Unknown Rx Active Medications: Generic Name Dose Route Start Last Admin Trade Name Freq PRN Reason Stop Dose Admin Acetaminophen 650 mg 06/07/21 21:41 Acetaminophen 325 Mg Tab PO Q4H PRN Pain MILD(1-3)/Fever >100.5/MARTÍNEZ Albuterol 2 puff 06/07/21 23:00 Albuterol 8.5 Gm Mdi Inhalation IH Q4HRT PRN Shortness Of Breath Alprazolam 0.5 mg 06/15/21 04:58 06/15/21 05:33 Alprazolam 0.5 Mg Tab PO 0.5 mg Q8H PRN Administration Anxiety Apixaban 5 mg 06/08/21 10:00 06/20/21 10:48 Apixaban 5 Mg Tab PO 5 mg BID LEONOR Administration Atorvastatin Calcium 10 mg 06/08/21 10:00 06/20/21 10:47 Atorvastatin 10 Mg Tab PO 10 mg DAILY LEONOR Administration Carvedilol 6.25 mg 06/15/21 22:00 06/20/21 10:59 Carvedilol 6.25 Mg Tab PO 6.25 mg BID LEONOR Administration Dextrose 50 ml 06/08/21 12:04 06/20/21 12:16 Dextrose 50% In Water (25gm) 50 Ml Syringe IV 50 ml Q30MIN PRN Administration Hypoglycemia Protocol Docusate Sodium 100 mg 06/07/21 21:33 Docusate Sodium 100 Mg Cap PO BID PRN Constipation Famotidine 10 mg 06/14/21 22:00 06/20/21 10:47 Famotidine 10 Mg Tab PO 10 mg BID LEONOR Administration Guaifenesin 10 ml 06/09/21 00:15 06/11/21 06:12 Guaifenesin Dm 200/20 Mg Oral Liqd 10 Ml PO 10 ml Q4H PRN Administration Cough Hydralazine HCl 25 mg 06/07/21 22:00 06/20/21 05:29 Hydralazine 25 Mg Tab PO 25 mg Q8HR LEONOR Administration Hydromorphone HCl 0.5 mg 06/07/21 21:41 Hydromorphone 1 Mg/1 Ml Inj IV Q3H PRN Pain , Severe (7-10) Hydromorphone HCl 0.25 mg 06/07/21 22:33 Hydromorphone 1 Mg/1 Ml Inj IV Q4H PRN Pain, Moderate (4-6) Hydrophilic Ointment 1 applic 06/13/21 07:30 Lip Therapy Vaseline TP DIRECT PRN Dry Lips Dextrose 1,000 mls @ 75 mls/hr 06/14/21 10:00 06/20/21 12:55 D5w IV 125 mls/hr DIRECT LEONOR Administration Insulin Human Isoph/Insulin Regular 30 unit 06/20/21 08:45 06/20/21 09:00 Insulin Nph/Regular 70/30 Inj SUB-Q Not Given BIDDIAB LEONOR Insulin Human Regular 0 units 06/08/21 12:15 06/20/21 12:13 Insulin Regular, Human 100 Units/1 Ml SUB-Q Not Given ACHS [facility] Protocol Levothyroxine Sodium 75 mcg 06/08/21 06:00 06/20/21 05:30 Levothyroxine 75 Mcg Tab PO 75 mcg QAM@0600 LEONOR Administration Levothyroxine Sodium 200 mcg 06/08/21 06:00 06/20/21 05:30 Levothyroxine 100 Mcg Tab PO 200 mcg DAILY@0600 LEONOR Administration Loratadine/Pseudoephedrine Sulfate 1 each 06/08/21 10:00 06/20/21 12:13 Loratadine/Pseudoephedrine 10-240 Mg Tab 24hr PO 1 each Q24HR LEONOR Administration Ondansetron HCl 4 mg 06/07/21 22:00 06/20/21 05:30 Ondansetron 4 Mg Odt Tab PO 4 mg Q8HR LEONOR Administration Ondansetron HCl 4 mg 06/07/21 21:41 06/10/21 06:24 Ondansetron 4 Mg/2 Ml Inj IV 4 mg Q8H PRN Administration Nausea And Vomiting Oxycodone/Acetaminophen 1 tab 06/07/21 21:41 06/09/21 17:05 Oxycodone /Acetaminophen 5-325mg Tab PO 1 tab Q6H PRN Administration Pain, Moderate (4-6) Quetiapine Fumarate 50 mg 06/15/21 22:00 06/19/21 23:44 Quetiapine 25 Mg Tab PO 50 mg QHS LEONOR Administration Sodium Bicarbonate 650 mg 06/10/21 14:00 06/20/21 10:47 Sodium Bicarbonate 650 Mg Tab PO 650 mg TID LEONOR Administration Sodium Chloride 10 ml 06/07/21 22:00 06/20/21 10:48 Sodium Chloride 0.9% 10 Ml Flush Syringe IV 10 ml BID LEONOR Administration Sodium Chloride 10 ml 06/07/21 21:41 Sodium Chloride 0.9% 10 Ml Flush Syringe IV PRN PRN LINE FLUSH
[2021-06-20 17:10] LABS: Calcium 8.7 mg/dL (8.4-10.2)
[2021-06-20] MEDS: QUEtiapine 25 MG TAB PO SCH (22:13)
[2021-06-20] MEDS: ALPRAZolam 0.5 MG TAB PO PRN (22:13)
[2021-06-20] MEDS: ONDANSETRON 4 MG/2 ML INJ IV PRN (22:15)
[2021-06-21] MEDS: hydrALAZINE 25 MG TAB PO SCH ×4 (00:55→22:13)
[2021-06-21] MEDS: INSULIN REGULAR, HUMAN 100 UNITS/1 ML SUB-Q SCH ×5 (00:56→22:13)
[2021-06-21] MEDS: ONDANSETRON 4 MG ODT TAB PO SCH ×4 (00:57→22:14)
[2021-06-21] MEDS: carvediloL 6.25 MG TAB PO SCH ×3 (00:57→22:13)
[2021-06-21] MEDS: DEXTROSE 5% IN WATER 1,000 ML IV SCH (02:32)
[2021-06-21] MEDS: LEVOTHYROXINE 75 MCG TAB PO SCH (05:33)
[2021-06-21] MEDS: LEVOTHYROXINE 100 MCG TAB PO SCH (05:34)
[2021-06-21] MEDS: SODIUM BICARBONATE 650 MG TAB PO SCH ×3 (08:00→22:12)
[2021-06-21 08:19] LABS: Calcium 8.6 mg/dL (8.4-10.2)
[2021-06-21] MEDS: INSULIN NPH/REGULAR 70/30 INJ SUB-Q SCH ×2 (09:18→18:42)
--- NOTE | 2021-06-21 09:43 | Progress Note ---
Assessment and Plan Assessment COVID-19 breakthrough infection COVID-19 pneumonia Acute renal failure versus acute on chronic renal failure Acute hypoxic respiratory failure Insulin-dependent type 2 diabetes- uncontrolled Elevated troponin Hypertension-controlled Hypothyroidism Protein calorie malnutrition Hypernatremia Plan Renal labs reviewed. Serum creatinine 2.0 today, yesterday's was 1.7, non- oliguric BP Low- may need to hold Coreg Renal US was negative for hydronephrosis Hypernatremia- recent sodium level 143- On D5W@ 75 ml/hr Replete potassium as needed Renally dose medications Avoid nephrotoxic agents Strict I&O's daily Obtain daily weights Plan of care reviewed by Dr. Schultz Subjective Date of service: 06/21/21 Principal diagnosis: TREMAINE Interval history: Patient on isolation for CVOID-19 infection. Objective - Vital Signs Vital signs: Vital Signs - 12hr 06/20/21 06/20/21 06/20/21 22:09 22:30 23:53 Temperature 98.2 F Pulse Rate 40 L Respiratory 18 Rate Blood Pressure 113/77 O2 Sat by Pulse 90 90 86 Oximetry 06/21/21 06/21/21 06/21/21 00:55 04:57 05:20 Temperature Pulse Rate 54 L 67 Respiratory 18 Rate Blood Pressure 94/48 O2 Sat by Pulse 90 100 Oximetry - Lab 06/19/21 15:46 06/21/21 06:00 Most recent lab results ABG pH 7.318 pH Units (7.350-7.450) L 06/12/21 04:22 ABG pCO2 40.1 mm Hg 06/12/21 04:22 ABG pO2 51.5 mm Hg (80.0-90.0) L 06/12/21 04:22 ABG HCO3 20.1 mmol/L (20.0-26.0) 06/12/21 04:22 ABG O2 Saturation 86.9 % (95.0-99.0) L 06/12/21 04:22 Calcium 8.6 mg/dL (8.4-10.2) 06/21/21 06:00 Phosphorus 3.30 mg/dL (2.5-4.5) 06/14/21 04:42 Magnesium 2.40 mg/dL (1.7-2.3) H 06/14/21 04:42 Medications & Allergies - Medications Allergies/Adverse Reactions: Allergies latex Allergy (Verified 03/19/19 17:03) Unknown shellfish derived Allergy (Verified 03/19/19 17:03) Anaphylaxis strawberry Allergy (Verified 03/19/19 17:03) Anaphylaxis tomato Allergy (Verified 03/19/19 17:03) Anaphylaxis nuts Allergy (Uncoded 03/19/19 17:03) Anaphylaxis Home Medications: Home Medications Medication Instructions Recorded Confirmed Last Taken Type Albuterol Sulfate [Ventolin HFA] 2 puff IH Q4H PRN 01/29/14 06/11/21 02/01/15 History Levothyroxine (Nf) [Synthroid (Nf)] 275 mcg PO QAM 01/29/14 06/11/21 02/01/15 History Fluticasone/Salmeterol [Advair 1 each IH PRN PRN 01/26/15 06/11/21 02/02/15 10:00 History Diskus 250-50 mcg] Apixaban [Eliquis starter pack] 5 mg PO BID 09/13/19 06/11/21 Unknown History Insulin Aspart Prot/Insuln Asp 45 unit SUB-Q QAM 09/13/19 06/11/21 Unknown History [Novolog Mix 70-30 Flexpen] Insulin Glargine,Hum.rec.anlog 25 unit SQ HS 09/13/19 06/11/21 Unknown History [Basaglar Kwikpen U-100] Lovastatin [Altoprev] 20 mg PO DAILY 09/13/19 06/11/21 Unknown History Docusate Sodium [Colace CAP] 100 mg PO BID PRN #30 capsule 09/17/19 06/11/21 Unknown Rx Loratadine/Pseudoephedrine 1 each PO Q24HR #10 tablet 09/17/19 06/11/21 Unknown Rx [Claritin-D 24HR] Ondansetron [Zofran Odt] 4 mg PO Q8HR #20 tab.rapdis 09/17/19 06/11/21 Unknown Rx carvediloL [Coreg] 3.125 mg PO BID #60 tablet 09/17/19 06/11/21 Unknown Rx hydrALAZINE [Apresoline TAB] 25 mg PO Q8HR #90 tablet 09/17/19 06/11/21 Unknown Rx Active Medications: Generic Name Dose Route Start Last Admin Trade Name Freq PRN Reason Stop Dose Admin Acetaminophen 650 mg 06/07/21 21:41 Acetaminophen 325 Mg Tab PO Q4H PRN Pain MILD(1-3)/Fever >100.5/MARTÍNEZ Albuterol 2 puff 06/07/21 23:00 Albuterol 8.5 Gm Mdi Inhalation IH Q4HRT PRN Shortness Of Breath Alprazolam 0.5 mg 06/15/21 04:58 06/20/21 22:13 Alprazolam 0.5 Mg Tab PO 0.5 mg Q8H PRN Administration Anxiety Apixaban 5 mg 06/08/21 10:00 06/20/21 22:12 Apixaban 5 Mg Tab PO 5 mg BID LEONOR Administration Atorvastatin Calcium 10 mg 06/08/21 10:00 06/20/21 10:47 Atorvastatin 10 Mg Tab PO 10 mg DAILY LEONOR Administration Carvedilol 6.25 mg 06/15/21 22:00 06/21/21 00:57 Carvedilol 6.25 Mg Tab PO Not Given BID LEONOR Dextrose 50 ml 06/08/21 12:04 06/20/21 12:16 Dextrose 50% In Water (25gm) 50 Ml Syringe IV 50 ml Q30MIN PRN Administration Hypoglycemia Protocol Docusate Sodium 100 mg 06/07/21 21:33 Docusate Sodium 100 Mg Cap PO BID PRN Constipation Famotidine 10 mg 06/14/21 22:00 06/20/21 22:13 Famotidine 10 Mg Tab PO 10 mg BID LEONOR Administration Guaifenesin 10 ml 06/09/21 00:15 06/11/21 06:12 Guaifenesin Dm 200/20 Mg Oral Liqd 10 Ml PO 10 ml Q4H PRN Administration Cough Hydralazine HCl 25 mg 06/07/21 22:00 06/21/21 07:44 Hydralazine 25 Mg Tab PO Not Given Q8HR LEONOR Hydromorphone HCl 0.5 mg 06/07/21 21:41 Hydromorphone 1 Mg/1 Ml Inj IV Q3H PRN Pain , Severe (7-10) Hydromorphone HCl 0.25 mg 06/07/21 22:33 Hydromorphone 1 Mg/1 Ml Inj IV Q4H PRN Pain, Moderate (4-6) Hydrophilic Ointment 1 applic 06/13/21 07:30 Lip Therapy Vaseline TP DIRECT PRN Dry Lips Dextrose 1,000 mls @ 75 mls/hr 06/14/21 10:00 06/21/21 02:32 D5w IV 125 mls/hr DIRECT LEONOR Administration Insulin Human Isoph/Insulin Regular 30 unit 06/20/21 08:45 06/21/21 09:18 Insulin Nph/Regular 70/30 Inj SUB-Q Not Given BIDDIAB LEONOR Insulin Human Regular 0 units 06/08/21 12:15 06/21/21 09:17 Insulin Regular, Human 100 Units/1 Ml SUB-Q Not Given ACHS [facility] Protocol Levothyroxine Sodium 75 mcg 06/08/21 06:00 06/21/21 05:33 Levothyroxine 75 Mcg Tab PO 75 mcg QAM@0600 LEONOR Administration Levothyroxine Sodium 200 mcg 06/08/21 06:00 06/21/21 05:34 Levothyroxine 100 Mcg Tab PO 200 mcg DAILY@0600 LEONOR Administration Loratadine/Pseudoephedrine Sulfate 1 each 06/08/21 10:00 06/20/21 12:13 Loratadine/Pseudoephedrine 10-240 Mg Tab 24hr PO 1 each Q24HR LEONOR Administration Ondansetron HCl 4 mg 06/07/21 22:00 06/21/21 05:33 Ondansetron 4 Mg Odt Tab PO 4 mg Q8HR LEONOR Administration Ondansetron HCl 4 mg 06/07/21 21:41 06/20/21 22:15 Ondansetron 4 Mg/2 Ml Inj IV 4 mg Q8H PRN Administration Nausea And Vomiting Oxycodone/Acetaminophen 1 tab 06/07/21 21:41 06/09/21 17:05 Oxycodone /Acetaminophen 5-325mg Tab PO 1 tab Q6H PRN Administration Pain, Moderate (4-6) Quetiapine Fumarate 50 mg 06/15/21 22:00 06/20/21 22:13 Quetiapine 25 Mg Tab PO 50 mg QHS LEONOR Administration Sodium Bicarbonate 650 mg 06/10/21 14:00 06/20/21 22:13 Sodium Bicarbonate 650 Mg Tab PO 650 mg TID LEONOR Administration Sodium Chloride 10 ml 06/07/21 22:00 06/21/21 00:59 Sodium Chloride 0.9% 10 Ml Flush Syringe IV 10 ml BID LEONOR Administration Sodium Chloride 10 ml 06/07/21 21:41 Sodium Chloride 0.9% 10 Ml Flush Syringe IV PRN PRN LINE FLUSH
[2021-06-21] MEDS: APIXABAN 5 MG TAB PO SCH ×2 (11:56→22:13)
[2021-06-21] MEDS: FAMOTIDINE 10 MG TAB PO SCH ×2 (11:57→22:13)
[2021-06-21] MEDS: LORATADINE/PSEUDOEPHEDRINE 10-240 MG TAB 24HR PO SCH (11:58)
--- NOTE | 2021-06-21 12:12 | Progress Note ---
Assessment and Plan This is 61-year-old female, Morbidly Obese admitted with shortness of breath that has been ongoing for several days. She had been around family that had been sick with coronavirus symptoms. Patient said she has been vaccinated for COVID-19. She denies vomiting and diarrhea. Reported generalized weakness and difficulty breathing. She has had subjective fevers and chills associate with a cough. Cough has been producing yellowish phlegm. Patient has history of diabetes, Hypertension,Hyperlipidemia and hypothyroidism and CKD. Denies smoking, alcohol or drug abuse. 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 Patient and has no children. Patient o2 requirements very high. ABG On 100% FIO2. ABG pH 7.345 (7.320-7.450) 06/21/21 11:20 POC ABG pCO2 45.8 mmHg (32.0-48.0) 06/21/21 11:20 ABG pCO2 40.1 mm Hg 06/12/21 04:22 POC ABG pO2 58.9 mmHg (83-108) L 06/21/21 11:20 ABG pO2 51.5 mm Hg (80.0-90.0) L 06/12/21 04:22 POC ABG HCO3 24.4 06/21/21 11:20 ABG O2 Saturation 88.4 (0-100) 06/21/21 11:20 Patient transfered to [facility]. Patient Sleeping on BIPAP but arousable.. Patient is placed on BIPAP 25/10, rate 25, and FIO2 100% and O2 saturation running 95%. Patient tolerating present BIPAP settings except slight increase in work of breathing. Patient afebrile and has no leukocytosis. Patients blood pressure 166/115. Pulse 115 Chest xray that was done 06/19/21 showed interval worsening. Patients Repeat Holden virus PCR reported Positive. Patient is on Apixaban, Famotidine and albuterol inhaler and I/V solumedrol. I spent critical care time of 40 minutes, reviewing the chart, examine the patie nt, review labs, chest xray, talking to the nursing staff, respiratory therapy and attending physian and work up plan of treatment in this critically Ill ,Morbidly Obese, CoVID 19 patient with acute respiratory failure - Patient Problems (1) Acute respiratory failure with hypoxia Current Visit: Yes Status: Acute Plan to address problem: Patient is on BIPAP 25/10, Rate 25, FIO2 100%. Patient Started on I/V solumedrol. Patient is on Apixaban Continue Famotidine. . (2) Coronavirus infection Current Visit: Yes Status: Acute Plan to address problem: Patient is on I/V solumedrol Apixaban Management as per infectious diseases. (3) Pneumonia due to COVID-19 virus Current Visit: Yes Status: Acute Plan to address problem: Patient was on Ceftriaxone. (4) Acute kidney injury superimposed on CKD Current Visit: No Status: Acute Plan to address problem: Management as per nephrology. (5) Hypertension Current Visit: No Status: Acute Plan to address problem: Management as per primary care. (6) Diabetes mellitus type 2, insulin dependent Current Visit: No Status: Chronic Plan to address problem: Management as per primary care. (7) Hypothyroidism Current Visit: No Status: Chronic Plan to address problem: Patient is on Levothyroxine. Management as per primary care. (8) Morbid obesity Current Visit: No Status: Chronic Plan to address problem: Recommend to lose weight. Diet and exercise once she recovered from this condition. Recommend sleep study as out patient once she recovered from present problem. Subjective Date of service: 06/21/21 Principal diagnosis: TREMAINE Interval history: This is 61-year-old female, Morbidly Obese admitted with shortness of breath that has been ongoing for several days. She had been around family that had been sick with coronavirus symptoms. Patient said she has been vaccinated for COVID- 19. She denies vomiting and diarrhea. Reported generalized weakness and difficulty breathing. She has had subjective fevers and chills associate with a cough. Cough has been producing yellowish phlegm. Patient has history of diabetes, Hypertension,Hyperlipidemia and hypothyroidism and CKD. Denies smoking, alcohol or drug abuse. 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 Patient o2 requirements very high. ABG On 100% FIO2. ABG pH 7.345 (7.320-7.450) 06/21/21 11:20 POC ABG pCO2 45.8 mmHg (32.0-48.0) 06/21/21 11:20 ABG pCO2 40.1 mm Hg 06/12/21 04:22 POC ABG pO2 58.9 mmHg (83-108) L 06/21/21 11:20 ABG pO2 51.5 mm Hg (80.0-90.0) L 06/12/21 04:22 POC ABG HCO3 24.4 06/21/21 11:20 ABG O2 Saturation 88.4 (0-100) 06/21/21 11:20 Patient transfered to [facility]. Patient Sleeping on BIPAP but arousable.. Patient is placed on BIPAP 25/10, rate 25, and FIO2 100% and O2 saturation running 95%. Patient tolerating present BIPAP settings except slight increase in work of breathing. Patient afebrile and has no leukocytosis. Patients blood pressure 166/115. Pulse 115 Chest xray that was done 06/19/21 showed interval worsening. Patients Repeat Holden virus PCR reported Positive. Patient is on Apixaban, Famotidine and albuterol inhaler and I/V solumedrol. Objective Vital Signs - 12hr 06/21/21 06/21/21 06/21/21 00:55 04:57 05:20 Pulse Rate 54 L 67 Respiratory 18 Rate Blood Pressure 94/48 O2 Sat by Pulse 90 100 Oximetry 06/21/21 06/21/21 06/21/21 10:38 11:05 11:06 Pulse Rate 67 106 H 53 L Respiratory 41 H 24 Rate Blood Pressure 103/60 O2 Sat by Pulse 88 87 87 Oximetry Constitutional: no acute distress, asleep, other (Morbidly Obese, Mild increase work of breathing on BIPAP.) Eyes: non-icteric ENT: oropharynx moist Neck: supple, no lymphadenopathy Effort: mildly labored Ascultation: Bilateral: diminished breath sounds, rhonchi Cardiovascular: regular rate and rhythm Gastrointestinal: normoactive bowel sounds, soft, non-tender Integumentary: normal Extremities: no cyanosis, no edema Neurologic: normal mental status, non-focal exam, pupils equal and round, CN II- XII normal Psychiatric: other (Patient sleepy and resting on BIPAP.) CBC and BMP: 06/19/21 15:46 06/21/21 06:00 ABG, PT/INR, D-dimer: ABG ABG pH 7.345 (7.320-7.450) 06/21/21 11:20 POC ABG pCO2 45.8 mmHg (32.0-48.0) 06/21/21 11:20 ABG pCO2 40.1 mm Hg 06/12/21 04:22 POC ABG pO2 58.9 mmHg (83-108) L 06/21/21 11:20 ABG pO2 51.5 mm Hg (80.0-90.0) L 06/12/21 04:22 POC ABG HCO3 24.4 06/21/21 11:20 ABG O2 Saturation 88.4 (0-100) 06/21/21 11:20 PT/INR, D-dimer D-Dimer 9804.08 ng/mlDDU (0-234) H 06/18/21 06:00 Abnormal lab findings: Abnormal Labs 06/07/21 06/07/21 06/07/21 19:11 19:11 19:11 WBC 11.5 H RBC Hgb Hct RDW Plt Count Lymph % (Auto) 6.5 L Lymph # (Auto) 0.8 L Seg Neutrophils % 89.9 H Seg Neuts % (Manual) Lymphocytes % (Manual) Nucleated RBC % Seg Neutrophils # 10.4 H Seg Neutrophils # Man Lymphocytes # (Manual) D-Dimer 5334.05 H ABG pH POC ABG pO2 ABG pO2 ABG O2 Saturation ABG Base Excess ABG Oxyhemoglobin ABG Chloride ABG Glucose Oxyhemoglobin Carboxyhemoglobin Sodium Potassium Chloride Carbon Dioxide BUN 67 H Creatinine 4.8 H Glucose 244 H POC Glucose Hemoglobin A1c Calcium Magnesium Ferritin Lactate Dehydrogenase 796 H Troponin T 0.043 H C-Reactive Protein 19.60 H Total Protein 8.4 H Albumin 3.1 L [place]-8-[place] Enknl-0-Yxypwegrj Beta Globulins PEP Interpretation Triglycerides 209 H HDL Cholesterol 35 L Arterial Blood Glucose Arterial Blood Ionized Calcium Coronavirus (PCR) 06/07/21 06/07/21 06/08/21 19:11 19:11 03:04 WBC RBC Hgb Hct RDW Plt Count Lymph % (Auto) Lymph # (Auto) Seg Neutrophils % Seg Neuts % (Manual) Lymphocytes % (Manual) Nucleated RBC % Seg Neutrophils # Seg Neutrophils # Man Lymphocytes # (Manual) D-Dimer ABG pH POC ABG pO2 ABG pO2 ABG O2 Saturation ABG Base Excess ABG Oxyhemoglobin ABG Chloride ABG Glucose Oxyhemoglobin Carboxyhemoglobin Sodium Potassium Chloride Carbon Dioxide BUN Creatinine Glucose POC Glucose Hemoglobin A1c 9.5 H Calcium Magnesium Ferritin 1230.0 H Lactate Dehydrogenase Troponin T 0.031 H D C-Reactive Protein Total Protein Albumin Azary-9-Qjjqckjbb Hcxtc-5-Lrwnimwmc Beta Globulins PEP Interpretation Triglycerides HDL Cholesterol Arterial Blood Glucose Arterial Blood Ionized Calcium Coronavirus (PCR) 06/08/21 06/08/21 06/08/21 03:44 03:44 08:21 WBC 12.9 H RBC Hgb Hct RDW Plt Count Lymph % (Auto) Lymph # (Auto) Seg Neutrophils % Seg Neuts % (Manual) 95.0 H Lymphocytes % (Manual) 3.0 L Nucleated RBC % Seg Neutrophils # Seg Neutrophils # Man 12.3 H Lymphocytes # (Manual) 0.4 L D-Dimer ABG pH POC ABG pO2 ABG pO2 ABG O2 Saturation ABG Base Excess ABG Oxyhemoglobin ABG Chloride ABG Glucose Oxyhemoglobin Carboxyhemoglobin Sodium Potassium Chloride Carbon Dioxide 20 L D BUN 68 H Creatinine 4.7 H Glucose 218 H POC Glucose 273 H Hemoglobin A1c Calcium Magnesium Ferritin Lactate Dehydrogenase Troponin T C-Reactive Protein Total Protein Albumin 3.4 L Afeom-6-Iqypjfnmc Iosns-6-Tuklhgkvn Beta Globulins PEP Interpretation Triglycerides HDL Cholesterol Arterial Blood Glucose Arterial Blood Ionized Calcium Coronavirus (PCR) 06/08/21 06/08/21 06/08/21 08:30 11:00 17:29 WBC RBC Hgb Hct RDW Plt Count Lymph % (Auto) Lymph # (Auto) Seg Neutrophils % Seg Neuts % (Manual) Lymphocytes % (Manual) Nucleated RBC % Seg Neutrophils # Seg Neutrophils # Man Lymphocytes # (Manual) D-Dimer ABG pH POC ABG pO2 ABG pO2 ABG O2 Saturation ABG Base Excess ABG Oxyhemoglobin ABG Chloride ABG Glucose Oxyhemoglobin Carboxyhemoglobin Sodium Potassium Chloride Carbon Dioxide BUN Creatinine Glucose POC Glucose 239 H 220 H Hemoglobin A1c Calcium Magnesium Ferritin Lactate Dehydrogenase Troponin T C-Reactive Protein Total Protein Albumin Llmrg-5-Fgbzzcfcv Grkof-3-Hrogoesiy Beta Globulins PEP Interpretation Triglycerides HDL Cholesterol Arterial Blood Glucose Arterial Blood Ionized Calcium Coronavirus (PCR) Positive A 06/08/21 06/09/21 06/09/21 21:09 08:07 08:42 WBC 14.7 H RBC 5.28 H Hgb 14.9 H Hct 45.0 H D RDW Plt Count Lymph % (Auto) 4.9 L Lymph # (Auto) 0.7 L Seg Neutrophils % 90.0 H Seg Neuts % (Manual) Lymphocytes % (Manual) Nucleated RBC % Seg Neutrophils # 13.2 H Seg Neutrophils # Man Lymphocytes # (Manual) D-Dimer ABG pH POC ABG pO2 ABG pO2 ABG O2 Saturation ABG Base Excess ABG Oxyhemoglobin ABG Chloride ABG Glucose Oxyhemoglobin Carboxyhemoglobin Sodium Potassium Chloride Carbon Dioxide BUN Creatinine Glucose POC Glucose 242 H 230 H Hemoglobin A1c Calcium Magnesium Ferritin Lactate Dehydrogenase Troponin T C-Reactive Protein Total Protein Albumin Ypuqi-6-Yeynqntfy Jzlsn-4-Sdoxpzdbz Beta Globulins PEP Interpretation Triglycerides HDL Cholesterol Arterial Blood Glucose Arterial Blood Ionized Calcium Coronavirus (PCR) 06/09/21 06/09/21 06/09/21 08:42 12:05 12:19 WBC RBC Hgb Hct RDW Plt Count Lymph % (Auto) Lymph # (Auto) Seg Neutrophils % Seg Neuts % (Manual) Lymphocytes % (Manual) Nucleated RBC % Seg Neutrophils # Seg Neutrophils # Man Lymphocytes # (Manual) D-Dimer ABG pH POC ABG pO2 71.4 L ABG pO2 ABG O2 Saturation ABG Base Excess ABG Oxyhemoglobin 92.9 L ABG Chloride 109.0 H ABG Glucose 287 H Oxyhemoglobin Carboxyhemoglobin 0.4 L Sodium Potassium Chloride Carbon Dioxide 17 L BUN 74 H Creatinine 3.7 H Glucose 259 H POC Glucose 274 H Hemoglobin A1c Calcium 8.3 L Magnesium Ferritin Lactate Dehydrogenase Troponin T C-Reactive Protein Total Protein Albumin [place]uxi-3-Nbkriddbn Eriqn-7-Nmnaleznr Beta Globulins PEP Interpretation Triglycerides HDL Cholesterol Arterial Blood Glucose 287 H Arterial Blood Ionized Calcium Coronavirus (PCR) 06/09/21 06/09/21 06/10/21 16:59 21:06 08:25 WBC RBC Hgb Hct RDW Plt Count Lymph % (Auto) Lymph # (Auto) Seg Neutrophils % Seg Neuts % (Manual) Lymphocytes % (Manual) Nucleated RBC % Seg Neutrophils # Seg Neutrophils # Man Lymphocytes # (Manual) D-Dimer ABG pH POC ABG pO2 ABG pO2 ABG O2 Saturation ABG Base Excess ABG Oxyhemoglobin ABG Chloride ABG Glucose Oxyhemoglobin Carboxyhemoglobin Sodium Potassium Chloride Carbon Dioxide BUN Creatinine Glucose POC Glucose 268 H 263 H 280 H Hemoglobin A1c Calcium Magnesium Ferritin Lactate Dehydrogenase Troponin T C-Reactive Protein Total Protein Albumin Gcalw-0-Wzaobrdny Svugn-7-Fhsobqaki Beta Globulins PEP Interpretation Triglycerides HDL Cholesterol Arterial Blood Glucose Arterial Blood Ionized Calcium Coronavirus (PCR) 06/10/21 06/10/21 06/10/21 12:07 15:38 21:04 WBC RBC Hgb Hct RDW Plt Count Lymph % (Auto) Lymph # (Auto) Seg Neutrophils % Seg Neuts % (Manual) Lymphocytes % (Manual) Nucleated RBC % Seg Neutrophils # Seg Neutrophils # Man Lymphocytes # (Manual) D-Dimer ABG pH POC ABG pO2 ABG pO2 ABG O2 Saturation ABG Base Excess ABG Oxyhemoglobin ABG Chloride ABG Glucose Oxyhemoglobin Carboxyhemoglobin Sodium Potassium Chloride Carbon Dioxide BUN Creatinine Glucose POC Glucose 247 H 269 H 195 H Hemoglobin A1c Calcium Magnesium Ferritin Lactate Dehydrogenase Troponin T C-Reactive Protein Total Protein Albumin Flzvb-8-Wzofwjbfk Kczzs-0-Vykodzvlx Beta Globulins PEP Interpretation Triglycerides HDL Cholesterol Arterial Blood Glucose Arterial Blood Ionized Calcium Coronavirus (PCR) 06/10/21 06/10/21 06/10/21 23:14 23:14 23:14 WBC RBC Hgb Hct RDW 15.3 H Plt Count Lymph % (Auto) Lymph # (Auto) Seg Neutrophils % Seg Neuts % (Manual) 93.0 H Lymphocytes % (Manual) 2.0 L Nucleated RBC % 3.0 H Seg Neutrophils # Seg Neutrophils # Man 10.2 H Lymphocytes # (Manual) 0.2 L D-Dimer ABG pH POC ABG pO2 ABG pO2 ABG O2 Saturation ABG Base Excess ABG Oxyhemoglobin ABG Chloride ABG Glucose Oxyhemoglobin Carboxyhemoglobin Sodium 148 H D Potassium Chloride 111.7 H Carbon Dioxide 20 L BUN 70 H Creatinine 3.2 H Glucose 186 H POC Glucose Hemoglobin A1c Calcium Magnesium Ferritin Lactate Dehydrogenase Troponin T C-Reactive Protein Total Protein Albumin 2.6 L Ugmrl-1-Pakmuucsn 0.5 H Stgia-7-Qouznpolc 1.7 H Beta Globulins 0.6 H PEP Interpretation see below H Triglycerides HDL Cholesterol Arterial Blood Glucose Arterial Blood Ionized Calcium Coronavirus (PCR) 06/10/21 06/10/21 06/10/21 23:14 23:14 23:14 WBC RBC Hgb Hct RDW Plt Count Lymph % (Auto) Lymph # (Auto) Seg Neutrophils % Seg Neuts % (Manual) Lymphocytes % (Manual) Nucleated RBC % Seg Neutrophils # Seg Neutrophils # Man Lymphocytes # (Manual) D-Dimer > 24622 H ABG pH POC ABG pO2 ABG pO2 ABG O2 Saturation ABG Base Excess ABG Oxyhemoglobin ABG Chloride ABG Glucose Oxyhemoglobin Carboxyhemoglobin Sodium Potassium Chloride Carbon Dioxide BUN Creatinine Glucose POC Glucose Hemoglobin A1c Calcium Magnesium 2.50 H Ferritin 1319.0 H Lactate Dehydrogenase 606 H Troponin T C-Reactive Protein Total Protein Albumin Ryzmc-8-Ceyeizpzw Rpexi-2-Aflexhsuq Beta Globulins PEP Interpretation Triglycerides HDL Cholesterol Arterial Blood Glucose Arterial Blood Ionized Calcium Coronavirus (PCR) 06/11/21 06/11/21 06/11/21 07:34 10:57 10:57 WBC RBC Hgb Hct RDW Plt Count Lymph % (Auto) Lymph # (Auto) Seg Neutrophils % Seg Neuts % (Manual) Lymphocytes % (Manual) Nucleated RBC % Seg Neutrophils # Seg Neutrophils # Man Lymphocytes # (Manual) D-Dimer > 59668 H ABG pH POC ABG pO2 ABG pO2 ABG O2 Saturation ABG Base Excess ABG Oxyhemoglobin ABG Chloride ABG Glucose Oxyhemoglobin Carboxyhemoglobin Sodium Potassium Chloride Carbon Dioxide BUN Creatinine Glucose POC Glucose 169 H Hemoglobin A1c Calcium Magnesium Ferritin 1300.0 H Lactate Dehydrogenase Troponin T C-Reactive Protein Total Protein Albumin Vjnzd-0-Eodoyuifl Fzamv-6-Pwvxgmncu Beta Globulins PEP Interpretation Triglycerides HDL Cholesterol Arterial Blood Glucose Arterial Blood Ionized Calcium Coronavirus (PCR) 06/11/21 06/11/21 06/11/21 10:58 10:58 11:49 WBC 11.3 H RBC Hgb Hct RDW 15.3 H Plt Count Lymph % (Auto) Lymph # (Auto) Seg Neutrophils % Seg Neuts % (Manual) 88.0 H Lymphocytes % (Manual) 6.0 L Nucleated RBC % Seg Neutrophils # Seg Neutrophils # Man 9.9 H Lymphocytes # (Manual) 0.7 L D-Dimer ABG pH POC ABG pO2 ABG pO2 ABG O2 Saturation ABG Base Excess ABG Oxyhemoglobin ABG Chloride ABG Glucose Oxyhemoglobin Carboxyhemoglobin Sodium 150 H Potassium 3.4 L Chloride 114.8 H Carbon Dioxide 21 L BUN 65 H Creatinine 2.9 H Glucose 180 H POC Glucose 191 H Hemoglobin A1c Calcium Magnesium 2.50 H Ferritin Lactate Dehydrogenase Troponin T C-Reactive Protein 1.90 H Total Protein Albumin Zubmu-0-Yygkuzltt Ccfkm-7-Smpvokuka Beta Globulins PEP Interpretation Triglycerides HDL Cholesterol Arterial Blood Glucose Arterial Blood Ionized Calcium Coronavirus (PCR) 06/11/21 06/11/21 06/12/21 15:49 21:16 04:22 WBC RBC Hgb Hct RDW Plt Count Lymph % (Auto) Lymph # (Auto) Seg Neutrophils % Seg Neuts % (Manual) Lymphocytes % (Manual) Nucleated RBC % Seg Neutrophils # Seg Neutrophils # Man Lymphocytes # (Manual) D-Dimer ABG pH 7.318 L POC ABG pO2 ABG pO2 51.5 L ABG O2 Saturation 86.9 L ABG Base Excess -5.6 L ABG Oxyhemoglobin ABG Chloride ABG Glucose Oxyhemoglobin 85.5 L Carboxyhemoglobin Sodium Potassium Chloride Carbon Dioxide BUN Creatinine Glucose POC Glucose 185 H 200 H Hemoglobin A1c Calcium Magnesium Ferritin Lactate Dehydrogenase Troponin T C-Reactive Protein Total Protein Albumin Rzqiy-3-Avptemdzd Lwmea-1-Wpnbwdxdx Beta Globulins PEP Interpretation Triglycerides HDL Cholesterol Arterial Blood Glucose Arterial Blood Ionized Calcium Coronavirus (PCR) 06/12/21 06/12/21 06/12/21 07:41 08:31 08:31 WBC 12.4 H RBC Hgb Hct RDW 15.3 H Plt Count Lymph % (Auto) 8.5 L Lymph # (Auto) 1.1 L Seg Neutrophils % 88.1 H Seg Neuts % (Manual) Lymphocytes % (Manual) Nucleated RBC % Seg Neutrophils # 10.9 H Seg Neutrophils # Man Lymphocytes # (Manual) D-Dimer ABG pH POC ABG pO2 ABG pO2 ABG O2 Saturation ABG Base Excess ABG Oxyhemoglobin ABG Chloride ABG Glucose Oxyhemoglobin Carboxyhemoglobin Sodium 151 H Potassium Chloride 117.3 H Carbon Dioxide 21 L BUN 61 H Creatinine 2.5 H Glucose 165 H POC Glucose 165 H Hemoglobin A1c Calcium 8.3 L Magnesium Ferritin Lactate Dehydrogenase Troponin T C-Reactive Protein Total Protein Albumin Gmxmg-1-Moxqudfgi Mjurt-9-Pbpsqbhzy Beta Globulins PEP Interpretation Triglycerides HDL Cholesterol Arterial Blood Glucose Arterial Blood Ionized Calcium Coronavirus (PCR) 06/12/21 06/12/21 06/12/21 08:31 10:32 15:47 WBC RBC Hgb Hct RDW Plt Count Lymph % (Auto) Lymph # (Auto) Seg Neutrophils % Seg Neuts % (Manual) Lymphocytes % (Manual) Nucleated RBC % Seg Neutrophils # Seg Neutrophils # Man Lymphocytes # (Manual) D-Dimer ABG pH POC ABG pO2 ABG pO2 ABG O2 Saturation ABG Base Excess ABG Oxyhemoglobin ABG Chloride ABG Glucose Oxyhemoglobin Carboxyhemoglobin Sodium Potassium Chloride Carbon Dioxide BUN Creatinine Glucose POC Glucose 156 H 176 H Hemoglobin A1c Calcium Magnesium 2.50 H Ferritin Lactate Dehydrogenase Troponin T C-Reactive Protein Total Protein Albumin Gdxxy-9-Jbhyxbqlw Vgkic-1-Uehavbgku Beta Globulins PEP Interpretation Triglycerides HDL Cholesterol Arterial Blood Glucose Arterial Blood Ionized Calcium Coronavirus (PCR) 06/12/21 06/13/21 06/13/21 21:50 07:42 07:42 WBC 14.1 H RBC Hgb Hct RDW 15.3 H Plt Count Lymph % (Auto) Lymph # (Auto) Seg Neutrophils % Seg Neuts % (Manual) 87.0 H Lymphocytes % (Manual) 7.0 L Nucleated RBC % 3.0 H Seg Neutrophils # Seg Neutrophils # Man 12.3 H Lymphocytes # (Manual) 1.0 L D-Dimer ABG pH POC ABG pO2 ABG pO2 ABG O2 Saturation ABG Base Excess ABG Oxyhemoglobin ABG Chloride ABG Glucose Oxyhemoglobin Carboxyhemoglobin Sodium 151 H Potassium 3.5 L Chloride 116.0 H Carbon Dioxide BUN 61 H Creatinine 2.3 H Glucose 135 H POC Glucose 165 H Hemoglobin A1c Calcium Magnesium 2.50 H Ferritin Lactate Dehydrogenase Troponin T C-Reactive Protein Total Protein Albumin Cwjiq-8-Itmzjdndt Ytntt-3-Bskjzuhnt Beta Globulins PEP Interpretation Triglycerides HDL Cholesterol Arterial Blood Glucose Arterial Blood Ionized Calcium Coronavirus (PCR) 06/13/21 06/13/21 06/13/21 08:10 11:10 18:15 WBC RBC Hgb Hct RDW Plt Count Lymph % (Auto) Lymph # (Auto) Seg Neutrophils % Seg Neuts % (Manual) Lymphocytes % (Manual) Nucleated RBC % Seg Neutrophils # Seg Neutrophils # Man Lymphocytes # (Manual) D-Dimer ABG pH POC ABG pO2 ABG pO2 ABG O2 Saturation ABG Base Excess ABG Oxyhemoglobin ABG Chloride ABG Glucose Oxyhemoglobin Carboxyhemoglobin Sodium Potassium Chloride Carbon Dioxide BUN Creatinine Glucose POC Glucose 118 H 139 H 179 H Hemoglobin A1c Calcium Magnesium Ferritin Lactate Dehydrogenase Troponin T C-Reactive Protein Total Protein Albumin Ftoym-3-Tpawxfyhc Jqxzs-9-Ivtwzjeoo Beta Globulins PEP Interpretation Triglycerides HDL Cholesterol Arterial Blood Glucose Arterial Blood Ionized Calcium Coronavirus (PCR) 06/13/21 06/13/21 06/14/21 21:54 23:27 04:42 WBC 12.8 H RBC Hgb Hct RDW 15.3 H Plt Count Lymph % (Auto) Lymph # (Auto) Seg Neutrophils % Seg Neuts % (Manual) 92.0 H Lymphocytes % (Manual) 1.0 L Nucleated RBC % 2.0 H Seg Neutrophils # Seg Neutrophils # Man 11.8 H Lymphocytes # (Manual) 0.1 L D-Dimer ABG pH POC ABG pO2 ABG pO2 ABG O2 Saturation ABG Base Excess ABG Oxyhemoglobin ABG Chloride ABG Glucose Oxyhemoglobin Carboxyhemoglobin Sodium 152 H Potassium Chloride 116.3 H Carbon Dioxide 21 L BUN 67 H Creatinine 2.5 H Glucose 212 H POC Glucose 193 H Hemoglobin A1c Calcium Magnesium Ferritin Lactate Dehydrogenase Troponin T C-Reactive Protein Total Protein Albumin Uczkz-9-Swqfpbrlh Vkyxu-9-Sapwxgebm Beta Globulins PEP Interpretation Triglycerides HDL Cholesterol Arterial Blood Glucose Arterial Blood Ionized Calcium Coronavirus (PCR) 06/14/21 06/14/21 06/14/21 04:42 04:42 07:33 WBC RBC Hgb Hct RDW Plt Count Lymph % (Auto) Lymph # (Auto) Seg Neutrophils % Seg Neuts % (Manual) Lymphocytes % (Manual) Nucleated RBC % Seg Neutrophils # Seg Neutrophils # Man Lymphocytes # (Manual) D-Dimer ABG pH POC ABG pO2 ABG pO2 ABG O2 Saturation ABG Base Excess ABG Oxyhemoglobin ABG Chloride ABG Glucose Oxyhemoglobin Carboxyhemoglobin Sodium 152 H Potassium Chloride 115.3 H Carbon Dioxide BUN 68 H Creatinine 2.5 H Glucose 188 H POC Glucose 173 H Hemoglobin A1c Calcium Magnesium 2.40 H Ferritin Lactate Dehydrogenase Troponin T C-Reactive Protein Total Protein Albumin Juaed-5-Akttqshzd Asacq-5-Ydqluabgd Beta Globulins PEP Interpretation Triglycerides HDL Cholesterol Arterial Blood Glucose Arterial Blood Ionized Calcium Coronavirus (PCR) 06/14/21 06/14/21 06/14/21 10:57 15:53 23:40 WBC RBC Hgb Hct RDW Plt Count Lymph % (Auto) Lymph # (Auto) Seg Neutrophils % Seg Neuts % (Manual) Lymphocytes % (Manual) Nucleated RBC % Seg Neutrophils # Seg Neutrophils # Man Lymphocytes # (Manual) D-Dimer ABG pH POC ABG pO2 ABG pO2 ABG O2 Saturation ABG Base Excess ABG Oxyhemoglobin ABG Chloride ABG Glucose Oxyhemoglobin Carboxyhemoglobin Sodium Potassium Chloride Carbon Dioxide BUN Creatinine Glucose POC Glucose 195 H 226 H 235 H Hemoglobin A1c Calcium Magnesium Ferritin Lactate Dehydrogenase Troponin T C-Reactive Protein Total Protein Albumin Qcahz-0-Eimzkwlbz Jvjav-1-Efkapzqjn Beta Globulins PEP Interpretation Triglycerides HDL Cholesterol Arterial Blood Glucose Arterial Blood Ionized Calcium Coronavirus (PCR) 06/15/21 06/15/21 06/15/21 07:38 07:38 07:38 WBC 14.3 H RBC Hgb Hct RDW Plt Count Lymph % (Auto) Lymph # (Auto) Seg Neutrophils % Seg Neuts % (Manual) 95.0 H Lymphocytes % (Manual) 1.0 L Nucleated RBC % Seg Neutrophils # Seg Neutrophils # Man 13.6 H Lymphocytes # (Manual) 0.1 L D-Dimer > 18580 H ABG pH POC ABG pO2 ABG pO2 ABG O2 Saturation ABG Base Excess ABG Oxyhemoglobin ABG Chloride ABG Glucose Oxyhemoglobin Carboxyhemoglobin Sodium 153 H Potassium 3.5 L Chloride 115.9 H Carbon Dioxide BUN 55 H Creatinine 2.1 H Glucose 213 H POC Glucose Hemoglobin A1c Calcium Magnesium Ferritin Lactate Dehydrogenase Troponin T C-Reactive Protein Total Protein Albumin Kmwvd-6-Cbhgtnruk Xdlci-6-Pwamqnkjo Beta Globulins PEP Interpretation Triglycerides HDL Cholesterol Arterial Blood Glucose Arterial Blood Ionized Calcium Coronavirus (PCR) 06/15/21 06/15/21 06/15/21 07:38 09:21 11:46 WBC RBC Hgb Hct RDW Plt Count Lymph % (Auto) Lymph # (Auto) Seg Neutrophils % Seg Neuts % (Manual) Lymphocytes % (Manual) Nucleated RBC % Seg Neutrophils # Seg Neutrophils # Man Lymphocytes # (Manual) D-Dimer ABG pH POC ABG pO2 ABG pO2 ABG O2 Saturation ABG Base Excess ABG Oxyhemoglobin ABG Chloride ABG Glucose Oxyhemoglobin Carboxyhemoglobin Sodium Potassium Chloride Carbon Dioxide BUN Creatinine Glucose POC Glucose 202 H 233 H Hemoglobin A1c Calcium Magnesium Ferritin 1246.0 H Lactate Dehydrogenase Troponin T C-Reactive Protein Total Protein Albumin Pvkvz-3-Rejfgalal Gdnps-9-Jkwztwdda Beta Globulins PEP Interpretation Triglycerides HDL Cholesterol Arterial Blood Glucose Arterial Blood Ionized Calcium Coronavirus (PCR) 06/15/21 06/16/21 06/16/21 17:32 05:44 07:48 WBC RBC Hgb Hct RDW Plt Count Lymph % (Auto) Lymph # (Auto) Seg Neutrophils % Seg Neuts % (Manual) Lymphocytes % (Manual) Nucleated RBC % Seg Neutrophils # Seg Neutrophils # Man Lymphocytes # (Manual) D-Dimer ABG pH POC ABG pO2 ABG pO2 ABG O2 Saturation ABG Base Excess ABG Oxyhemoglobin ABG Chloride ABG Glucose Oxyhemoglobin Carboxyhemoglobin Sodium 154 H Potassium Chloride 117.2 H Carbon Dioxide BUN 54 H Creatinine 2.0 H Glucose 120 H POC Glucose 179 H 109 H Hemoglobin A1c Calcium Magnesium Ferritin Lactate Dehydrogenase Troponin T C-Reactive Protein Total Protein Albumin Zhedt-2-Pmqwcitfk Ffdhx-3-Ctahsjqki Beta Globulins PEP Interpretation Triglycerides HDL Cholesterol Arterial Blood Glucose Arterial Blood Ionized Calcium Coronavirus (PCR) 06/16/21 06/16/21 06/16/21 11:13 15:22 21:15 WBC RBC Hgb Hct RDW Plt Count Lymph % (Auto) Lymph # (Auto) Seg Neutrophils % Seg Neuts % (Manual) Lymphocytes % (Manual) Nucleated RBC % Seg Neutrophils # Seg Neutrophils # Man Lymphocytes # (Manual) D-Dimer ABG pH POC ABG pO2 ABG pO2 ABG O2 Saturation ABG Base Excess ABG Oxyhemoglobin ABG Chloride ABG Glucose Oxyhemoglobin Carboxyhemoglobin Sodium Potassium Chloride Carbon Dioxide BUN Creatinine Glucose POC Glucose 222 H 218 H 250 H Hemoglobin A1c Calcium Magnesium Ferritin Lactate Dehydrogenase Troponin T C-Reactive Protein Total Protein Albumin Eubms-5-Ivuyrccby Bjaut-0-Jadwyeiot Beta Globulins PEP Interpretation Triglycerides HDL Cholesterol Arterial Blood Glucose Arterial Blood Ionized Calcium Coronavirus (PCR) 06/17/21 06/17/21 06/17/21 07:55 09:35 09:35 WBC RBC Hgb Hct RDW 15.7 H Plt Count 99 L Lymph % (Auto) Lymph # (Auto) Seg Neutrophils % Seg Neuts % (Manual) Lymphocytes % (Manual) Nucleated RBC % Seg Neutrophils # Seg Neutrophils # Man Lymphocytes # (Manual) D-Dimer ABG pH POC ABG pO2 ABG pO2 ABG O2 Saturation ABG Base Excess ABG Oxyhemoglobin ABG Chloride ABG Glucose Oxyhemoglobin Carboxyhemoglobin Sodium 148 H Potassium Chloride 113.3 H Carbon Dioxide BUN 45 H Creatinine 1.8 H Glucose 202 H POC Glucose 158 H Hemoglobin A1c Calcium Magnesium Ferritin Lactate Dehydrogenase Troponin T C-Reactive Protein Total Protein 6.0 L Albumin 2.8 L Djazy-3-Ygsotoswr Zocde-1-Pfugomqtg Beta Globulins PEP Interpretation Triglycerides HDL Cholesterol Arterial Blood Glucose Arterial Blood Ionized Calcium Coronavirus (PCR) 06/17/21 06/17/21 06/18/21 12:32 16:46 06:00 WBC RBC Hgb Hct RDW Plt Count Lymph % (Auto) Lymph # (Auto) Seg Neutrophils % Seg Neuts % (Manual) Lymphocytes % (Manual) Nucleated RBC % Seg Neutrophils # Seg Neutrophils # Man Lymphocytes # (Manual) D-Dimer 9804.08 H ABG pH POC ABG pO2 ABG pO2 ABG O2 Saturation ABG Base Excess ABG Oxyhemoglobin ABG Chloride ABG Glucose Oxyhemoglobin Carboxyhemoglobin Sodium Potassium Chloride Carbon Dioxide BUN Creatinine Glucose POC Glucose 227 H 203 H Hemoglobin A1c Calcium Magnesium Ferritin Lactate Dehydrogenase Troponin T C-Reactive Protein Total Protein Albumin Wqgqd-6-Otxkakksn Otjcp-4-Imrahlljr Beta Globulins PEP Interpretation Triglycerides HDL Cholesterol Arterial Blood Glucose Arterial Blood Ionized Calcium Coronavirus (PCR) 06/18/21 06/18/21 06/18/21 06:00 08:00 10:10 WBC RBC Hgb Hct RDW Plt Count Lymph % (Auto) Lymph # (Auto) Seg Neutrophils % Seg Neuts % (Manual) Lymphocytes % (Manual) Nucleated RBC % Seg Neutrophils # Seg Neutrophils # Man Lymphocytes # (Manual) D-Dimer ABG pH POC ABG pO2 ABG pO2 ABG O2 Saturation ABG Base Excess ABG Oxyhemoglobin ABG Chloride ABG Glucose Oxyhemoglobin Carboxyhemoglobin Sodium Potassium Chloride 110.1 H Carbon Dioxide BUN 39 H Creatinine 1.8 H Glucose 135 H POC Glucose 107 H Hemoglobin A1c Calcium Magnesium Ferritin 904.2 H Lactate Dehydrogenase Troponin T C-Reactive Protein Total Protein Albumin Apnut-8-Pktytxwlo Xdknw-7-Vbjqeabfq Beta Globulins PEP Interpretation Triglycerides HDL Cholesterol Arterial Blood Glucose Arterial Blood Ionized Calcium Coronavirus (PCR) 06/18/21 06/18/21 06/18/21 12:06 16:47 21:14 WBC RBC Hgb Hct RDW Plt Count Lymph % (Auto) Lymph # (Auto) Seg Neutrophils % Seg Neuts % (Manual) Lymphocytes % (Manual) Nucleated RBC % Seg Neutrophils # Seg Neutrophils # Man Lymphocytes # (Manual) D-Dimer ABG pH POC ABG pO2 ABG pO2 ABG O2 Saturation ABG Base Excess ABG Oxyhemoglobin ABG Chloride ABG Glucose Oxyhemoglobin Carboxyhemoglobin Sodium Potassium Chloride Carbon Dioxide BUN Creatinine Glucose POC Glucose 160 H 236 H 186 H Hemoglobin A1c Calcium Magnesium Ferritin Lactate Dehydrogenase Troponin T C-Reactive Protein Total Protein Albumin Asqlh-1-Ezgdhbvpd Bjsye-1-Hlcuceyzb Beta Globulins PEP Interpretation Triglycerides HDL Cholesterol Arterial Blood Glucose Arterial Blood Ionized Calcium Coronavirus (PCR) 06/19/21 06/19/21 06/20/21 15:46 15:46 08:04 WBC RBC Hgb Hct RDW 15.5 H Plt Count 73 L Lymph % (Auto) Lymph # (Auto) Seg Neutrophils % Seg Neuts % (Manual) Lymphocytes % (Manual) Nucleated RBC % Seg Neutrophils # Seg Neutrophils # Man Lymphocytes # (Manual) D-Dimer ABG pH POC ABG pO2 ABG pO2 ABG O2 Saturation ABG Base Excess ABG Oxyhemoglobin ABG Chloride ABG Glucose Oxyhemoglobin Carboxyhemoglobin Sodium 146 H Potassium Chloride 108.9 H Carbon Dioxide BUN 38 H Creatinine 1.7 H Glucose POC Glucose 52 L Hemoglobin A1c Calcium Magnesium Ferritin Lactate Dehydrogenase Troponin T C-Reactive Protein Total Protein Albumin Kykqs-0-Lxwkcdexo Rodje-1-Bxhkpusqq Beta Globulins PEP Interpretation Triglycerides HDL Cholesterol Arterial Blood Glucose Arterial Blood Ionized Calcium Coronavirus (PCR) 06/20/21 06/20/21 06/20/21 11:58 15:16 17:54 WBC RBC Hgb Hct RDW Plt Count Lymph % (Auto) Lymph # (Auto) Seg Neutrophils % Seg Neuts % (Manual) Lymphocytes % (Manual) Nucleated RBC % Seg Neutrophils # Seg Neutrophils # Man Lymphocytes # (Manual) D-Dimer ABG pH POC ABG pO2 ABG pO2 ABG O2 Saturation ABG Base Excess ABG Oxyhemoglobin ABG Chloride ABG Glucose Oxyhemoglobin Carboxyhemoglobin Sodium 146 H Potassium Chloride 108.2 H Carbon Dioxide BUN 37 H Creatinine 1.7 H Glucose 131 H POC Glucose 58 L 219 H Hemoglobin A1c Calcium Magnesium Ferritin Lactate Dehydrogenase Troponin T C-Reactive Protein Total Protein Albumin Yfkbc-9-Vmbdmscrh Dcfth-8-Vanvlivrk Beta Globulins PEP Interpretation Triglycerides HDL Cholesterol Arterial Blood Glucose Arterial Blood Ionized Calcium Coronavirus (PCR) 06/20/21 06/21/21 06/21/21 21:58 06:00 07:41 WBC RBC Hgb Hct RDW Plt Count Lymph % (Auto) Lymph # (Auto) Seg Neutrophils % Seg Neuts % (Manual) Lymphocytes % (Manual) Nucleated RBC % Seg Neutrophils # Seg Neutrophils # Man Lymphocytes # (Manual) D-Dimer ABG pH POC ABG pO2 ABG pO2 ABG O2 Saturation ABG Base Excess ABG Oxyhemoglobin ABG Chloride ABG Glucose Oxyhemoglobin Carboxyhemoglobin Sodium Potassium Chloride Carbon Dioxide BUN 42 H Creatinine 2.0 H Glucose 225 H POC Glucose 180 H 204 H Hemoglobin A1c Calcium Magnesium Ferritin Lactate Dehydrogenase Troponin T C-Reactive Protein Total Protein Albumin Peduf-1-Rvxmlrbju Dpcaz-2-Igvojhvva Beta Globulins PEP Interpretation Triglycerides HDL Cholesterol Arterial Blood Glucose Arterial Blood Ionized Calcium Coronavirus (PCR) 06/21/21 06/21/21 11:01 11:20 WBC RBC Hgb Hct RDW Plt Count Lymph % (Auto) Lymph # (Auto) Seg Neutrophils % Seg Neuts % (Manual) Lymphocytes % (Manual) Nucleated RBC % Seg Neutrophils # Seg Neutrophils # Man Lymphocytes # (Manual) D-Dimer ABG pH POC ABG pO2 58.9 L ABG pO2 ABG O2 Saturation ABG Base Excess ABG Oxyhemoglobin 87.4 L ABG Chloride ABG Glucose 212 H Oxyhemoglobin Carboxyhemoglobin Sodium Potassium Chloride Carbon Dioxide BUN Creatinine Glucose POC Glucose 194 H Hemoglobin A1c Calcium Magnesium Ferritin Lactate Dehydrogenase Troponin T C-Reactive Protein Total Protein Albumin Gbftk-9-Viuxbihns Zvqfb-1-Xllbvqoyj Beta Globulins PEP Interpretation Triglycerides HDL Cholesterol Arterial Blood Glucose 212 H Arterial Blood Ionized Calcium 4.5 L Coronavirus (PCR)
--- NOTE | 2021-06-21 15:56 | Progress Note ---
Assessment and Plan Assessment and plan: #Severe COVID-19 breakthrough infection #COVID-19 pneumonia #Severe ARDS -patient vaccinated -continue isolation precautions -inflammatory markers q3d -Transitioned from high flow to BiPAP given worsening respiratory status (saturating 88%) -completed 10 days of steroids; restarting IV Solu-Medrol 100 mg every 8 hours given worsening respiratory status -continue vitamin C, zinc and vitamin D #Acute hypoxic respiratory failure-worsening Transitioned from high flow to BiPAP (settings IPAP 25, EPAP 10, rate 25) -Pending repeat ABG in the evening; low threshold for intubation -continue nebulized treatments -Pulmonary following, recs appreciated #Acute encephalopathy -Delirium precautions -continue seroquel nightly #Hypernatremia -likely secondary to poor p.o. intake -D5W @75 cc/hr -continue 400 cc every 4 hour free water flushes by mouth #Acute versus chronic renal failure -unknown baseline -avoid nephrotoxins -Nephrology managing #Insulin-dependent type 2 diabetes #Hypoglycemia -Glucose low as 58 -Given D5, will restart D5 infusion at 75 cc an hour -Humulin decreased to 30 units twice daily -continue sliding scale insulin -goal glucose 140-180 #Elevated troponin -resolved, likely type II #Hypertension -Controlled -continue BB and hydralazine at current doses #Hypothyroidism -continue home levothyroxine #Protein calorie malnutrition -Nutrition consult #History of DVT -continue Eliquis #Discharge planning -pending improved respiratory status -Physical therapy consult to evaluate and treat once patient improves Disposition Plan: Continue medical management Total Time Spent with Patient (Minutes): 45 History Interval history: No acute events overnight. Hospitalist Physical - Constitutional Vitals: Temp Pulse Resp BP Pulse Ox 98.2 F 54 L 24 103/60 89 06/20/21 22:09 06/21/21 11:06 06/21/21 11:05 06/21/21 11:05 06/21/21 11:06 General appearance: Present: no acute distress - EENT Eyes: Present: PERRL, EOM intact ENT: hearing intact, clear oral mucosa, dentition normal - Neck Neck: Present: supple, normal ROM - Respiratory Respiratory effort: labored Details: Currently on BiPAP - Cardiovascular Rhythm: regular Heart Sounds: Present: S1 & S2 - Extremities Extremities: no ischemia, pulses intact, pulses symmetrical, No edema, normal temperature, normal color Peripheral Pulses: within normal limits - Abdominal General gastrointestinal: soft, non-tender, non-distended, other (Difficult to auscultate bowel sounds given body had) - Integumentary Integumentary: Present: clear, warm, dry - Psychiatric Psychiatric: cooperative, other (Altered mentation likely capacity) - Neurologic Neurologic: moves all extremities - Allied Health Allied health notes reviewed: nursing HEART Score - HEART Score EKG: Non-specific Age: 45-65 Risk factors: 1-2 risk factors Troponin: Troponin T 0.021 ng/mL (0.00-0.029) 06/08/21 13:49 - Critical Actions Critical Actions: 0-3 pts:0.9-1.7%risk of adverse cardiac event.Candidate for discharge Results - Labs CBC & Chem 7: 06/19/21 15:46 06/21/21 06:00 Labs: Laboratory Last Values WBC 4.5 K/mm3 (4.5-11.0) 06/19/21 15:46 RBC 4.68 M/mm3 (3.65-5.03) 06/19/21 15:46 Hgb 13.3 gm/dl (10.1-14.3) 06/19/21 15:46 Hct 39.9 % (30.3-42.9) 06/19/21 15:46 MCV 85 fl (79-97) 06/19/21 15:46 MCH 28 pg (28-32) 06/19/21 15:46 MCHC 33 % (30-34) 06/19/21 15:46 RDW 15.5 % (13.2-15.2) H 06/19/21 15:46 Plt Count 73 K/mm3 (140-440) L 06/19/21 15:46 Lymph % (Auto) 8.5 % (13.4-35.0) L 06/12/21 08:31 [place] % (Auto) 2.5 % (0.0-7.3) 06/12/21 08:31 Eos % (Auto) 0.8 % (0.0-4.3) 06/12/21 08:31 Baso % (Auto) 0.1 % (0.0-1.8) 06/12/21 08:31 Lymph # (Auto) 1.1 K/mm3 (1.2-5.4) L 06/12/21 08:31 [place] # (Auto) 0.3 K/mm3 (0.0-0.8) 06/12/21 08:31 Eos # (Auto) 0.1 K/mm3 (0.0-0.4) 06/12/21 08:31 Baso # (Auto) 0.0 K/mm3 (0.0-0.1) 06/12/21 08:31 Add Manual Diff Complete 06/15/21 07:38 Total Counted 100 06/15/21 07:38 Seg Neutrophils % Flask Pusher 06/15/21 07:38 Seg Neuts % (Manual) 95.0 % (40.0-70.0) H 06/15/21 07:38 Band Neutrophils % 4.0 % 06/15/21 07:38 Lymphocytes % (Manual) 1.0 % (13.4-35.0) L 06/15/21 07:38 Monocytes % (Manual) 3.0 % (0.0-7.3) 06/14/21 04:42 Eosinophils % (Manual) 1.0 % (0.0-4.3) 06/13/21 07:42 Metamyelocytes % 2.0 % 06/10/21 23:14 Myelocytes % 2.0 % 06/14/21 04:42 Nucleated RBC % Not Reportable 06/15/21 07:38 Seg Neutrophils # 10.9 K/mm3 (1.8-7.7) H 06/12/21 08:31 Seg Neutrophils # Man 13.6 K/mm3 (1.8-7.7) H 06/15/21 07:38 Band Neutrophils # 0.6 K/mm3 06/15/21 07:38 Lymphocytes # (Manual) 0.1 K/mm3 (1.2-5.4) L 06/15/21 07:38 Abs React Lymphs (Man) 0.0 K/mm3 06/15/21 07:38 Monocytes # (Manual) 0.0 K/mm3 (0.0-0.8) 06/15/21 07:38 Eosinophils # (Manual) 0.0 K/mm3 (0.0-0.4) 06/15/21 07:38 Basophils # (Manual) 0.0 K/mm3 (0.0-0.1) 06/15/21 07:38 Metamyelocytes # 0.0 K/mm3 06/15/21 07:38 Myelocytes # 0.0 K/mm3 06/15/21 07:38 Promyelocytes # 0.0 K/mm3 06/15/21 07:38 Blast Cells # 0.0 K/mm3 06/15/21 07:38 WBC Morphology Not Reportable 06/15/21 07:38 Hypersegmented Neuts Not Reportable 06/15/21 07:38 Hyposegmented Neuts Not Reportable 06/15/21 07:38 Hypogranular Neuts Not Reportable 06/15/21 07:38 Smudge Cells Not Reportable 06/15/21 07:38 Toxic Granulation Not Reportable 06/15/21 07:38 Toxic Vacuolation Not Reportable 06/15/21 07:38 Dohle Bodies Not Reportable 06/15/21 07:38 Pelger-Huet Anomaly Not Reportable 06/15/21 07:38 Nba Rods Not Reportable 06/15/21 07:38 Platelet Estimate Consistent w auto 06/15/21 07:38 Clumped Platelets Not Reportable 06/15/21 07:38 Plt Clumps, EDTA Not Reportable 06/15/21 07:38 Large Platelets Not Reportable 06/15/21 07:38 Giant Platelets Not Reportable 06/15/21 07:38 Platelet Satelliting Not Reportable 06/15/21 07:38 Plt Morphology Comment Not Reportable 06/15/21 07:38 RBC Morphology Not Reportable 06/15/21 07:38 Dimorphic RBCs Not Reportable 06/15/21 07:38 Polychromasia Not Reportable 06/15/21 07:38 Hypochromasia Not Reportable 06/15/21 07:38 Poikilocytosis Not Reportable 06/15/21 07:38 Anisocytosis Not Reportable 06/15/21 07:38 Microcytosis Not Reportable 06/15/21 07:38 Macrocytosis Not Reportable 06/15/21 07:38 Spherocytes Not Reportable 06/15/21 07:38 Pappenheimer Bodies Not Reportable 06/15/21 07:38 Sickle Cells Not Reportable 06/15/21 07:38 Target Cells Not Reportable 06/15/21 07:38 Tear Drop Cells 1+ 06/15/21 07:38 Ovalocytes 1+ 06/15/21 07:38 Helmet Cells Not Reportable 06/15/21 07:38 [place] Bodies Not Reportable 06/15/21 07:38 [place] Rings Not Reportable 06/15/21 07:38 [place] Cells Not Reportable 06/15/21 07:38 Bite Cells Not Reportable 06/15/21 07:38 Crenated Cell Not Reportable 06/15/21 07:38 Elliptocytes Not Reportable 06/15/21 07:38 Acanthocytes (Spur) Not Reportable 06/15/21 07:38 Rouleaux Not Reportable 06/15/21 07:38 Hemoglobin C Crystals Not Reportable 06/15/21 07:38 Schistocytes Not Reportable 06/15/21 07:38 Malaria parasites Not Reportable 06/15/21 07:38 Luis Bodies Not Reportable 06/15/21 07:38 Hem Pathologist Commnt No 06/15/21 07:38 D-Dimer 9804.08 ng/mlDDU (0-234) H 06/18/21 06:00 ABG pH 7.345 (7.320-7.450) 06/21/21 11:20 POC ABG pCO2 45.8 mmHg (32.0-48.0) 06/21/21 11:20 ABG pCO2 40.1 mm Hg 06/12/21 04:22 POC ABG pO2 58.9 mmHg (83-108) L 06/21/21 11:20 ABG pO2 51.5 mm Hg (80.0-90.0) L 06/12/21 04:22 POC ABG HCO3 24.4 06/21/21 11:20 ABG HCO3 20.1 mmol/L (20.0-26.0) 06/12/21 04:22 ABG O2 Saturation 88.4 (0-100) 06/21/21 11:20 ABG O2 Content 16.2 (0.0-44) 06/12/21 04:22 POC ABG Base Excess -1.6 06/21/21 11:20 ABG Base Excess -5.6 mmol/L (-2.0-3.0) L 06/12/21 04:22 ABG Hemoglobin 14.9 (12.0-17.5) 06/21/21 11:20 ABG Oxyhemoglobin 87.4 (94-98) L 06/21/21 11:20 ABG Carboxyhemoglobin 1.1 % (0.0-5.0) 06/12/21 04:22 ABG Methemoglobin 0.3 (0.0-1.5) 06/21/21 11:20 ABG Sodium 137.9 mmol/L (136.0-145.0) 06/21/21 11:20 ABG Potassium 4.0 mmol/L (3.40-4.50) 06/21/21 11:20 ABG Chloride 104.0 mmol/L (98-107) 06/21/21 11:20 ABG Glucose 212 mg/dL (65-95) H 06/21/21 11:20 Oxyhemoglobin 85.5 % (95.0-99.0) L 06/12/21 04:22 Carboxyhemoglobin 0.8 (0.5-1.5) 06/21/21 11:20 FiO2 100 % 06/12/21 04:22 FiO2 % 100 06/21/21 11:20 Sodium 143 mmol/L (137-145) 06/21/21 06:00 Potassium 3.9 mmol/L (3.6-5.0) 06/21/21 06:00 Chloride 104.9 mmol/L (98-107) 06/21/21 06:00 Carbon Dioxide 22 mmol/L (22-30) 06/21/21 06:00 Anion Gap 20 mmol/L 06/21/21 06:00 BUN 42 mg/dL (7-17) H 06/21/21 06:00 Creatinine 2.0 mg/dL (0.6-1.2) H 06/21/21 06:00 Estimated GFR 31 ml/min 06/21/21 06:00 BUN/Creatinine Ratio 21 % 06/21/21 06:00 Glucose 225 mg/dL (65-100) H 06/21/21 06:00 POC Glucose 194 mg/dL (70-105) H 06/21/21 11:01 Hemoglobin A1c 9.5 % (4-6) H 06/07/21 19:11 Calcium 8.6 mg/dL (8.4-10.2) 06/21/21 06:00 Phosphorus 3.30 mg/dL (2.5-4.5) 06/14/21 04:42 Magnesium 2.40 mg/dL (1.7-2.3) H 06/14/21 04:42 Ferritin 904.2 ng/mL (10.0-200.0) H 06/18/21 06:00 Total Bilirubin 0.40 mg/dL (0.1-1.2) 06/17/21 09:35 AST 21 units/L (5-40) 06/17/21 09:35 ALT 33 units/L (7-56) 06/17/21 09:35 Alkaline Phosphatase 113 units/L (35-129) 06/17/21 09:35 Lactate Dehydrogenase 606 units/L (91-180) H 06/10/21 23:14 Troponin T 0.021 ng/mL (0.00-0.029) 06/08/21 13:49 C-Reactive Protein 1.90 mg/dL (0.00-1.30) H 06/11/21 10:58 Serum Total Protein 7.0 g/dL (6.1-8.1) 06/10/21 23:14 Total Protein 6.0 g/dL (6.3-8.2) L 06/17/21 09:35 Albumin 2.8 g/dL (3.9-5) L 06/17/21 09:35 Albumin/Globulin Ratio 0.9 % 06/17/21 09:35 Gjere-9-Pljywjqad 0.5 g/dL (0.2-0.3) H 06/10/21 23:14 [place]rh[place]-8-Lmwdwegot 1.7 g/dL (0.5-0.9) H 06/10/21 23:14 Beta Globulins 0.6 g/dL (0.2-0.5) H 06/10/21 23:14 Gamma Globulins 1.3 g/dL (0.8-1.7) 06/10/21 23:14 Abnorm Protein Band 1 see below 06/10/21 23:14 PEP Interpretation see below H 06/10/21 23:14 Triglycerides 209 mg/dL (2-149) H 06/07/21 19:11 Cholesterol 165 mg/dL (50-199) 06/07/21 19:11 LDL Cholesterol Direct 79 mg/dL (50-130) 06/07/21 19:11 HDL Cholesterol 35 mg/dL (40-59) L 06/07/21 19:11 Cholesterol/HDL Ratio 4.71 % 06/07/21 19:11 Procalcitonin 0.91 ng/mL (<0.15) 06/07/21 19:11 Arterial Blood Glucose 212 mg/dL (65-95) H 06/21/21 11:20 Arterial Blood Ionized Calcium 4.5 mg/dL (4.6-5.3) L 06/21/21 11:20 Coronavirus (PCR) Positive (Negative) A 06/08/21 08:30 Blood Type B POSITIVE 06/07/21 22:34 Antibody Screen Negative 06/07/21 22:34 Roland/IV: Voiding Method External Female Catheter Active Medications - Current Medications Current Medications: Generic Name Dose Route Start Last Admin Trade Name Freq PRN Reason Stop Dose Admin Acetaminophen 650 mg 06/07/21 21:41 Acetaminophen 325 Mg Tab PO Q4H PRN Pain MILD(1-3)/Fever >100.5/MARTÍNEZ Albuterol 2 puff 06/07/21 23:00 Albuterol 8.5 Gm Mdi Inhalation IH Q4HRT PRN Shortness Of Breath Alprazolam 0.5 mg 06/15/21 04:58 06/20/21 22:13 Alprazolam 0.5 Mg Tab PO 0.5 mg Q8H PRN Administration Anxiety Apixaban 5 mg 06/08/21 10:00 06/21/21 11:56 Apixaban 5 Mg Tab PO 5 mg BID LEONOR Administration Atorvastatin Calcium 10 mg 06/08/21 10:00 06/21/21 11:57 Atorvastatin 10 Mg Tab PO 10 mg DAILY LEONOR Administration Carvedilol 6.25 mg 06/15/21 22:00 06/21/21 11:35 Carvedilol 6.25 Mg Tab PO Not Given BID LEONOR Dextrose 50 ml 06/08/21 12:04 06/20/21 12:16 Dextrose 50% In Water (25gm) 50 Ml Syringe IV 50 ml Q30MIN PRN Administration Hypoglycemia Protocol Docusate Sodium 100 mg 06/07/21 21:33 Docusate Sodium 100 Mg Cap PO BID PRN Constipation Famotidine 10 mg 06/14/21 22:00 06/21/21 11:57 Famotidine 10 Mg Tab PO 10 mg BID LEONOR Administration Guaifenesin 10 ml 06/09/21 00:15 06/11/21 06:12 Guaifenesin Dm 200/20 Mg Oral Liqd 10 Ml PO 10 ml Q4H PRN Administration Cough Hydralazine HCl 25 mg 06/07/21 22:00 06/21/21 13:20 Hydralazine 25 Mg Tab PO Not Given Q8HR LEONOR Hydromorphone HCl 0.5 mg 06/07/21 21:41 Hydromorphone 1 Mg/1 Ml Inj IV Q3H PRN Pain , Severe (7-10) Hydromorphone HCl 0.25 mg 06/07/21 22:33 Hydromorphone 1 Mg/1 Ml Inj IV Q4H PRN Pain, Moderate (4-6) Hydrophilic Ointment 1 applic 06/13/21 07:30 Lip Therapy Vaseline TP DIRECT PRN Dry Lips Dextrose 1,000 mls @ 75 mls/hr 06/14/21 10:00 06/21/21 02:32 D5w IV 125 mls/hr DIRECT LEONOR Administration Insulin Human Isoph/Insulin Regular 30 unit 06/20/21 08:45 06/21/21 09:18 Insulin Nph/Regular 70/30 Inj SUB-Q Not Given BIDDIAB [facility] Insulin Human Regular 0 units 06/08/21 12:15 06/21/21 11:57 Insulin Regular, Human 100 Units/1 Ml SUB-Q 3 units ACHS LEONOR Administration Protocol Levothyroxine Sodium 75 mcg 06/08/21 06:00 06/21/21 05:33 Levothyroxine 75 Mcg Tab PO 75 mcg QAM@0600 LEONOR Administration Levothyroxine Sodium 200 mcg 06/08/21 06:00 06/21/21 05:34 Levothyroxine 100 Mcg Tab PO 200 mcg DAILY@0600 [facility] Administration Loratadine/Pseudoephedrine Sulfate 1 each 06/08/21 10:00 06/21/21 11:58 Loratadine/Pseudoephedrine 10-240 Mg Tab 24hr PO Not Given Q24HR [facility] Methylprednisolone Sodium Succinate 100 mg 06/21/21 16:00 Methylprednisolone Sod Succinate 125 Mg/2 Ml Inj IV Q8HR [facility] Ondansetron HCl 4 mg 06/07/21 22:00 06/21/21 13:21 Ondansetron 4 Mg Odt Tab PO Not Given Q8HR LEONOR Ondansetron HCl 4 mg 06/07/21 21:41 06/20/21 22:15 Ondansetron 4 Mg/2 Ml Inj IV 4 mg Q8H PRN Administration Nausea And Vomiting Oxycodone/Acetaminophen 1 tab 06/07/21 21:41 06/09/21 17:05 Oxycodone /Acetaminophen 5-325mg Tab PO 1 tab Q6H PRN Administration Pain, Moderate (4-6) Quetiapine Fumarate 50 mg 06/15/21 22:00 06/20/21 22:13 Quetiapine 25 Mg Tab PO 50 mg QHS LEONOR Administration Sodium Bicarbonate 650 mg 06/10/21 14:00 06/21/21 13:21 Sodium Bicarbonate 650 Mg Tab PO Not Given TID LEONOR Sodium Chloride 10 ml 06/07/21 22:00 06/21/21 11:58 Sodium Chloride 0.9% 10 Ml Flush Syringe IV 10 ml BID LEONOR Administration Sodium Chloride 10 ml 06/07/21 21:41 Sodium Chloride 0.9% 10 Ml Flush Syringe IV PRN PRN LINE FLUSH Nutrition/Malnutrition Assess - Dietary Evaluation Nutrition/Malnutrition Findings: Nutrition Notes Start: 06/08/21 10:56 Freq: Status: Active Protocol: Document 06/21/21 11:24 RIKY (Rec: 06/21/21 12:09 RIKY [id number]) Nutrition Notes Need for Assessment generated from: MD Order Initial or Follow up Reassessment Current Diagnosis Acute Kidney Injury,Diabetes Other Pertinent Diagnosis Pneumonia/COVID-19, hypothyroidism. Current Diet consistent CHO, pureed texture , since 06/08. Labs/Tests 06/21: BUN 42, Cr 2.0, Glu 225 . Pertinent Medications 06/21: Reviewed. Height 5 ft 11 in Weight 164 kg [place] Body Weight (kg) 70.45 BMI 50.4 Intake Prior to Admission Excellent Weight Status Morbidly Obese Subjective/Other Information Pt intake fluctuates between 0 -25%, acceptance of food is fair. Pt needs maximum assistance for ADL. Percent of energy/protein needs met: Prescribed Consistent Carbohydrate Diet potentially would provide for energy/ protein needs. (2061 Kcal/ 91 g). Burn Absent Trauma Absent GI Symptoms None Difficulty In Swallowing,Chewing Food Allergy Yes Skin Integrity/Comment N/A Current % PO Negligible Minimum of two criteria No physical signs of malnutrition #1 Nutrition Diagnosis Inadequate energy intake Comments: Transient poor acceptance of food and neglible PO intake as reported in Nurse notes Etiology COVID=19/pneumonia As Evidenced by Signs and Symptoms Fair tolerance to food, intake of meals between 0-25%. Is patient on ventilator? No Is Patient Ambulatory and/or Out of Bed No REE-([facility]-confined to bed) 2771.148 Kcal/Kg value to use for calculation 13 Approximate Energy Requirements Using 2132 kcal/Kg Calculation Used for Recommendations Kcal/kg Additional Notes Protein: 1.0-1.2 g/Kg/day; 70- 84 g/day; 280-336 Kcal/day ( from IBW). Fluids: 1.0 ml/Kcal, or as per MD. Nutrition Intervention Change Diet Order: Continue prescribed Consistent Carbohydrate Diet -pureed consistency. Add 2- 8.0 fl oz Glucerna supplement. ONLY Vanilla or Chocolate due to allergies. Add Supplement/Snack (indicate name/kcal 2- 8.0 fl oz Glucerna /protein ) supplement. ONLY Vanilla or Chocolate due to allergies. Provides kCal: 440 Provides Protein (gm) 20 Barriers to Learning No Barriers Goal #1 PO intake of meals to improve to 50% or greater TID daily during LOS. Goal #2 Support energy/protein needs with addition of PO supplements, while PO intake of meals improves during LOS. Goal #3 Maintain body weight within +/ -3% of current BWt during LOS. Goal #4 Reach and maintain acceptable chemistry lab values during LOS. Follow-Up By: 06/28/21 Additional Comments Continue monitoring acceptance of food, % intake of meals, and BM. - Attestation Statement I have reviewed and agreed w/ Malnutrition eval & tx plan: Yes
[2021-06-21] MEDS: methylPREDNISolone Sod Succinate 125 MG/2 ML INJ IV SCH (18:43)
[2021-06-21] MEDS: QUEtiapine 25 MG TAB PO SCH (22:14)
[2021-06-22] MEDS: methylPREDNISolone Sod Succinate 125 MG/2 ML INJ IV SCH ×4 (00:40→23:53)
[2021-06-22] MEDS: hydrALAZINE 25 MG TAB PO SCH ×3 (06:03→21:16)
[2021-06-22] MEDS: ONDANSETRON 4 MG ODT TAB PO SCH (06:03)
[2021-06-22] MEDS: LEVOTHYROXINE 75 MCG TAB PO SCH (06:31)
[2021-06-22] MEDS: LEVOTHYROXINE 100 MCG TAB PO SCH (06:32)
[2021-06-22 08:20] LABS: Calcium 8.7 mg/dL (8.4-10.2)
--- NOTE | 2021-06-22 09:15 | XRay Report ---
CHEST 1 VIEW INDICATION: change from 2 view order-pt unable to tolerate. COMPARISON: 06/19/2021 FINDINGS: Support devices: None. Heart: Stable borderline to mild cardiomegaly Lungs/Pleura: Diffuse bilateral pulmonary opacities have decreased by 25-50%. No large pleural effusi on or pneumothorax. Additional findings: None. IMPRESSION: Improvement in the bilateral lung opacities. Signer Name: Zay Heller Jr, MD Signed: 06/22/2021 9:10 AM Workstation Name: [id number]
[2021-06-22] MEDS: INSULIN REGULAR, HUMAN 100 UNITS/1 ML SUB-Q SCH ×3 (10:35→17:38)
[2021-06-22] MEDS: INSULIN NPH/REGULAR 70/30 INJ SUB-Q SCH ×2 (10:36→17:39)
[2021-06-22] MEDS ORDERED: LORazepam 2 MG/ML VIAL IV ONE (10:56)
[2021-06-22] MEDS ORDERED: ENOXAPARIN 100 MG/1 ML INJ SUB-Q SCH (11:00)
[2021-06-22] MEDS ORDERED: ENOXAPARIN 80 MG/0.8 ML INJ SUB-Q SCH ×2 (13:00)
[2021-06-22] MEDS ORDERED: ETOMIDATE 20 MG/10 ML INJ IV ONE ×2 (13:00→13:14)
[2021-06-22] MEDS ORDERED: SODIUM CHLORIDE 0.9% 1000 ML 1,000 ML IV ONE (13:00)
[2021-06-22] MEDS ORDERED: SUCCINYLCHOLINE CHLORIDE 200 MG/10 ML INJ MDV IV ONE (13:00)
--- NOTE | 2021-06-22 13:00 | Event Note ---
Date: 06/22/21 called to assess patient with increased work of breathing on BIPAP and impending acute decompensation rate in 50's to 60's hypoxemic inadequate respiratory compensation on ABG despite increased work of breathing A&P: - intubate
[2021-06-22] MEDS ORDERED: LIP THERAPY VASELINE TP PRN (13:07)
[2021-06-22] MEDS ORDERED: MINERAL OIL/PETROLATUM, WHITE OPHTH OINT 3.5 GM OU PRN (13:07)
--- NOTE | 2021-06-22 13:13 | Progress Note ---
Assessment and Plan Acute hypoxemic respiratory failure (ARDS) Coronavirus infection Pneumonia due to COVID-19 virus Acute kidney injury superimposed on CKD Hypertension Diabetes mellitus type 2, insulin dependent Hypothyroidism Morbid obesity - intubate - bolus 1 Liter IVNS re: rosa-intubation hypotension - ? bacterial superinfection; will follow trach aspirate cultures - repeat Procalcitonin to aid clinical decision making - AC/450/30/10 empirically - ABG after 30 minutes - get bilateral lower extremity dopplers re: DVT evaluation / VTE work-up - Daily SAT and SBT assessment as tolerated - accuchecks with glycemic control per SSI (While critically ill target blood glucose of 140-180 mg/dL; avoid hypoglycemia) - sedation prn for target RASS 0 to -3 acutely - continue to wean supplemental oxygen for target O2 sat's > 90% acutely - VAP bundle addressed - continue lung protective strategies - continue bronchodilators with pulmonary hygiene per RT - wean per pulmonary driven protocols otherwise - avoid nephrotoxins, renally dose all medications - continue to avoid benzodiazepine's, reduce the possibility of delirium - AB's per ID rec's (S/P Rocephin and Zithromax) - prn analgesia per CPOT score - Maintenance of sleep-wake cycle, avoid delirium - enteral nutritional support at goal rate as tolerated - G.I. & VTE prophylaxis - PT/OT/ROM exercises - mobility protocols for pressure ulcer prophylaxis - Monitor hemodynamics closely - continue other care per attending / other consultants - discharge planning ongoing concurrently COVID SPECIFIC INTERVENTIONS - Remdesivir as per ID/Pulmonary developed protocols (not a candidate) - continue systemic steroids for severe COVID-19 infection empirically (will taper to 60 mg IV q8h) - follow repeat COVID tests results - zinc and vitamin C supplementation - Monitor inflammatory markers per facility protocol - ferritin, Ddimer, CRP - therapeutic anticoagulation per system Protocol based on d-dimer and clinical considerations - Continue contact and airborne isolation .... Re-evaluate in am & prn CONDITION: CRITICAL PROGNOSIS: GUARDED CODE STATUS: FULL CODE The high probability of a clinically significant, sudden or life-threatening deterioration of the [respiratory, cardiovascular, renal & neurologic] system(s) required my full and direct attention, intervention and personal management. The aggregate critical care time was [38] minutes without overlap. Time includes spent on; [x] Data Review and interpretation [x] Patient assessment and monitoring of vital signs [x] Documentation [x] Medication orders and management Subjective Date of service: 06/22/21 Principal diagnosis: ARDS; Pneumonia; COVID-19 virus infection; TREMAINE; DM II; Morbid obesity Interval history: Patient is seen today for: Acute hypoxemic respiratory failure (ARDS); Pneu monia; COVID-19 virus infection; TREMAINE on CKD; DM II; Morbid obesity Seen and examined at bedside; 24hour events reviewed; nursing and respiratory care staff consulted; no adverse overnight events reported to me; resting in bed; on BIPAP with markedly increased work of breathing; encephalopathic / altered; no emesis or overt aspiration; no hi9gh grade fevers; ABG sub-optimal Objective Vital Signs - 12hr 06/22/21 06/22/21 06/22/21 01:11 01:21 01:31 Temperature Pulse Rate 105 H 105 H 112 H Pulse Rate [ From Monitor] Respiratory 40 H 32 H 39 H Rate Blood Pressure 107/73 107/73 107/73 O2 Sat by Pulse 93 94 94 Oximetry 06/22/21 06/22/21 06/22/21 01:41 01:51 02:01 Temperature Pulse Rate 103 H 106 H 109 H Pulse Rate [ From Monitor] Respiratory 29 H 44 H 42 H Rate Blood Pressure 107/73 107/73 107/73 O2 Sat by Pulse 94 94 94 Oximetry 06/22/21 06/22/21 06/22/21 02:11 02:21 02:31 Temperature Pulse Rate 104 H 102 H 99 H Pulse Rate [ From Monitor] Respiratory 44 H 35 H 28 H Rate Blood Pressure 107/73 107/73 107/73 O2 Sat by Pulse 94 95 96 Oximetry 06/22/21 06/22/21 06/22/21 02:41 02:51 03:01 Temperature Pulse Rate 98 H 101 H 101 H Pulse Rate [ From Monitor] Respiratory 43 H 37 H 32 H Rate Blood Pressure 107/73 107/73 107/73 O2 Sat by Pulse 95 95 95 Oximetry 06/22/21 06/22/21 06/22/21 03:11 03:21 03:31 Temperature Pulse Rate 106 H 105 H 102 H Pulse Rate [ From Monitor] Respiratory 30 H 32 H 38 H Rate Blood Pressure 107/73 107/73 107/73 O2 Sat by Pulse 94 94 95 Oximetry 06/22/21 06/22/21 06/22/21 03:41 03:51 04:00 Temperature Pulse Rate 107 H 101 H 107 H Pulse Rate [ From Monitor] Respiratory 42 H 31 H 33 H Rate Blood Pressure 107/73 107/73 118/70 O2 Sat by Pulse 95 94 94 Oximetry 06/22/21 06/22/21 06/22/21 04:11 04:19 04:21 Temperature 96.6 F L Pulse Rate 110 H 103 H Pulse Rate [ From Monitor] Respiratory 43 H 28 H Rate Blood Pressure 118/70 118/70 O2 Sat by Pulse 95 92 Oximetry 06/22/21 06/22/21 06/22/21 04:31 04:41 04:51 Temperature Pulse Rate 109 H 115 H 105 H Pulse Rate [ From Monitor] Respiratory 37 H 21 41 H Rate Blood Pressure 118/70 118/70 118/70 O2 Sat by Pulse 93 93 93 Oximetry 06/22/21 06/22/21 06/22/21 05:01 05:11 05:21 Temperature Pulse Rate 76 79 77 Pulse Rate [ From Monitor] Respiratory 28 H 48 H 36 H Rate Blood Pressure 118/70 118/70 118/70 O2 Sat by Pulse 95 94 94 Oximetry 06/22/21 06/22/21 06/22/21 05:31 05:41 05:51 Temperature Pulse Rate 76 80 76 Pulse Rate [ From Monitor] Respiratory 27 H 38 H 22 Rate Blood Pressure 118/70 118/70 118/70 O2 Sat by Pulse 93 95 94 Oximetry 06/22/21 06/22/21 06/22/21 06:01 06:11 06:21 Temperature Pulse Rate 75 75 82 Pulse Rate [ From Monitor] Respiratory 26 H 31 H 15 Rate Blood Pressure 118/70 118/70 118/70 O2 Sat by Pulse 95 94 95 Oximetry 06/22/21 06/22/21 06/22/21 06:31 06:41 06:51 Temperature Pulse Rate 83 76 76 Pulse Rate [ From Monitor] Respiratory 37 H 39 H 32 H Rate Blood Pressure 118/70 118/70 118/70 O2 Sat by Pulse 94 95 94 Oximetry 06/22/21 06/22/21 06/22/21 07:01 07:11 07:21 Temperature Pulse Rate 77 75 78 Pulse Rate [ From Monitor] Respiratory 37 H 35 H 33 H Rate Blood Pressure 118/70 118/70 118/70 O2 Sat by Pulse 95 94 93 Oximetry 06/22/21 06/22/21 06/22/21 07:31 07:41 07:51 Temperature Pulse Rate 80 79 86 Pulse Rate [ From Monitor] Respiratory 45 H 35 H 34 H Rate Blood Pressure 118/70 118/70 118/70 O2 Sat by Pulse 95 93 91 Oximetry 06/22/21 06/22/21 06/22/21 08:00 08:01 08:11 Temperature Pulse Rate 78 85 Pulse Rate [ 89 From Monitor] Respiratory 37 H 42 H 34 H Rate Blood Pressure 130/83 130/83 O2 Sat by Pulse 91 91 91 Oximetry 06/22/21 06/22/21 06/22/21 08:21 08:31 08:33 Temperature Pulse Rate 86 85 88 Pulse Rate [ From Monitor] Respiratory 30 H 41 H 38 H Rate Blood Pressure 130/83 130/83 130/83 O2 Sat by Pulse 92 92 92 Oximetry 06/22/21 06/22/21 06/22/21 08:41 08:51 09:01 Temperature Pulse Rate 85 93 H 95 H Pulse Rate [ From Monitor] Respiratory 42 H 25 H 54 H Rate Blood Pressure 130/83 130/83 130/83 O2 Sat by Pulse 92 93 93 Oximetry 06/22/21 06/22/21 06/22/21 09:11 09:12 09:21 Temperature Pulse Rate 93 H 89 88 Pulse Rate [ From Monitor] Respiratory 45 H 52 H Rate Blood Pressure 130/83 130/83 O2 Sat by Pulse 92 92 Oximetry 06/22/21 06/22/21 06/22/21 09:31 09:41 09:51 Temperature Pulse Rate 89 89 96 H Pulse Rate [ From Monitor] Respiratory 54 H 45 H 51 H Rate Blood Pressure 130/83 130/83 130/83 O2 Sat by Pulse 92 91 91 Oximetry 06/22/21 06/22/21 06/22/21 10:01 10:11 10:21 Temperature Pulse Rate 91 H 100 H 93 H Pulse Rate [ From Monitor] Respiratory 50 H 55 H 53 H Rate Blood Pressure 130/83 130/83 130/83 O2 Sat by Pulse 91 91 91 Oximetry 06/22/21 06/22/21 06/22/21 10:31 10:41 10:51 Temperature Pulse Rate 103 H 95 H 109 H Pulse Rate [ From Monitor] Respiratory 61 H 54 H 53 H Rate Blood Pressure 130/83 130/83 130/83 O2 Sat by Pulse 91 91 91 Oximetry 06/22/21 06/22/21 06/22/21 11:01 11:11 11:21 Temperature Pulse Rate 97 H 99 H 100 H Pulse Rate [ From Monitor] Respiratory 58 H 55 H 52 H Rate Blood Pressure 130/83 130/83 130/83 O2 Sat by Pulse 91 91 91 Oximetry 06/22/21 06/22/21 06/22/21 11:31 11:41 11:51 Temperature Pulse Rate 94 H 100 H 102 H Pulse Rate [ From Monitor] Respiratory 55 H 48 H 58 H Rate Blood Pressure 130/83 130/83 130/83 O2 Sat by Pulse 90 90 91 Oximetry 06/22/21 06/22/21 06/22/21 12:00 12:01 12:11 Temperature 97.7 F Pulse Rate 101 H 102 H Pulse Rate [ From Monitor] Respiratory 57 H 55 H Rate Blood Pressure 130/83 101/53 O2 Sat by Pulse 92 91 Oximetry 06/22/21 06/22/21 06/22/21 12:15 12:21 12:31 Temperature Pulse Rate 105 H 104 H 106 H Pulse Rate [ From Monitor] Respiratory 58 H 56 H 58 H Rate Blood Pressure 101/53 101/53 101/53 O2 Sat by Pulse 91 91 90 Oximetry 06/22/21 12:41 Temperature Pulse Rate 107 H Pulse Rate [ From Monitor] Respiratory 59 H Rate Blood Pressure 101/53 O2 Sat by Pulse 90 Oximetry Constitutional: asleep, appears uncomfortable, other (Morbidly Obese female with moderately increased work of breathing on BIPAP.) Eyes: non-icteric ENT: oropharynx moist Neck: supple, no lymphadenopathy Effort: very labored Ascultation: Bilateral: diminished breath sounds, rhonchi Percussion: Bilateral: not dull Cardiovascular: regular rate and rhythm Gastrointestinal: normoactive bowel sounds, soft, non-tender, non-distended (protuberant) Integumentary: normal Extremities: no cyanosis, no edema, pulses normal, no ischemia or petechiae Neurologic: non-focal exam (grossly), pupils equal and round, unable to assess Psychiatric: other (unable to assess re: AMS) CBC and BMP: 06/19/21 15:46 06/22/21 07:43 ABG, PT/INR, D-dimer: ABG ABG pH 7.340 (7.320-7.450) 06/22/21 11:50 POC ABG pCO2 41.8 mmHg (32.0-48.0) 06/22/21 11:50 ABG pCO2 40.1 mm Hg 06/12/21 04:22 POC ABG pO2 56.8 mmHg (83-108) L 06/22/21 11:50 ABG pO2 51.5 mm Hg (80.0-90.0) L 06/12/21 04:22 POC ABG HCO3 22.1 06/22/21 11:50 ABG O2 Saturation 88.3 (0-100) 06/22/21 11:50 PT/INR, D-dimer D-Dimer 9804.08 ng/mlDDU (0-234) H 06/18/21 06:00 Abnormal lab findings: Abnormal Labs 06/07/21 06/07/21 06/07/21 19:11 19:11 19:11 WBC 11.5 H RBC Hgb Hct RDW Plt Count Lymph % (Auto) 6.5 L Lymph # (Auto) 0.8 L Seg Neutrophils % 89.9 H Seg Neuts % (Manual) Lymphocytes % (Manual) Nucleated RBC % Seg Neutrophils # 10.4 H Seg Neutrophils # Man Lymphocytes # (Manual) D-Dimer 5334.05 H ABG pH POC ABG pCO2 POC ABG pO2 ABG pO2 ABG O2 Saturation ABG Base Excess ABG Oxyhemoglobin ABG Chloride ABG Glucose Oxyhemoglobin Carboxyhemoglobin Sodium Potassium Chloride Carbon Dioxide BUN 67 H Creatinine 4.8 H Glucose 244 H POC Glucose Hemoglobin A1c Calcium Magnesium Ferritin Lactate Dehydrogenase 796 H Troponin T 0.043 H C-Reactive Protein 19.60 H Total Protein 8.4 H Albumin 3.1 L Fvxny-2-Kxpztjopu Loefp-2-Ggoouzdmk Beta Globulins PEP Interpretation Triglycerides 209 H HDL Cholesterol 35 L Arterial Blood Glucose Arterial Blood Ionized Calcium Coronavirus (PCR) 06/07/21 06/07/21 06/08/21 19:11 19:11 03:04 WBC RBC Hgb Hct RDW Plt Count Lymph % (Auto) Lymph # (Auto) Seg Neutrophils % Seg Neuts % (Manual) Lymphocytes % (Manual) Nucleated RBC % Seg Neutrophils # Seg Neutrophils # Man Lymphocytes # (Manual) D-Dimer ABG pH POC ABG pCO2 POC ABG pO2 ABG pO2 ABG O2 Saturation ABG Base Excess ABG Oxyhemoglobin ABG Chloride ABG Glucose Oxyhemoglobin Carboxyhemoglobin Sodium Potassium Chloride Carbon Dioxide BUN Creatinine Glucose POC Glucose Hemoglobin A1c 9.5 H Calcium Magnesium Ferritin 1230.0 H Lactate Dehydrogenase Troponin T 0.031 H D C-Reactive Protein Total Protein Albumin Veawm-9-Aqoaaodzh Mfnom-2-Kdjjvuflj Beta Globulins PEP Interpretation Triglycerides HDL Cholesterol Arterial Blood Glucose Arterial Blood Ionized Calcium Coronavirus (PCR) 06/08/21 06/08/21 06/08/21 03:44 03:44 08:21 WBC 12.9 H RBC Hgb Hct RDW Plt Count Lymph % (Auto) Lymph # (Auto) Seg Neutrophils % Seg Neuts % (Manual) 95.0 H Lymphocytes % (Manual) 3.0 L Nucleated RBC % Seg Neutrophils # Seg Neutrophils # Man 12.3 H Lymphocytes # (Manual) 0.4 L D-Dimer ABG pH POC ABG pCO2 POC ABG pO2 ABG pO2 ABG O2 Saturation ABG Base Excess ABG Oxyhemoglobin ABG Chloride ABG Glucose Oxyhemoglobin Carboxyhemoglobin Sodium Potassium Chloride Carbon Dioxide 20 L D BUN 68 H Creatinine 4.7 H Glucose 218 H POC Glucose 273 H Hemoglobin A1c Calcium Magnesium Ferritin Lactate Dehydrogenase Troponin T C-Reactive Protein Total Protein Albumin 3.4 L Xctsk-3-Lrgjqlhra Ixcba-6-Gzaaldvpr Beta Globulins PEP Interpretation Triglycerides HDL Cholesterol Arterial Blood Glucose Arterial Blood Ionized Calcium Coronavirus (PCR) 06/08/21 06/08/21 06/08/21 08:30 11:00 17:29 WBC RBC Hgb Hct RDW Plt Count Lymph % (Auto) Lymph # (Auto) Seg Neutrophils % Seg Neuts % (Manual) Lymphocytes % (Manual) Nucleated RBC % Seg Neutrophils # Seg Neutrophils # Man Lymphocytes # (Manual) D-Dimer ABG pH POC ABG pCO2 POC ABG pO2 ABG pO2 ABG O2 Saturation ABG Base Excess ABG Oxyhemoglobin ABG Chloride ABG Glucose Oxyhemoglobin Carboxyhemoglobin Sodium Potassium Chloride Carbon Dioxide BUN Creatinine Glucose POC Glucose 239 H 220 H Hemoglobin A1c Calcium Magnesium Ferritin Lactate Dehydrogenase Troponin T C-Reactive Protein Total Protein Albumin Ducjr-7-Ewextcpsu Mourn-2-Vngfjdzvr Beta Globulins PEP Interpretation Triglycerides HDL Cholesterol Arterial Blood Glucose Arterial Blood Ionized Calcium Coronavirus (PCR) Positive A 06/08/21 06/09/2121 21:09 08:07 08:42 WBC 14.7 H RBC 5.28 H Hgb 14.9 H Hct 45.0 H D RDW Plt Count Lymph % (Auto) 4.9 L Lymph # (Auto) 0.7 L Seg Neutrophils % 90.0 H Seg Neuts % (Manual) Lymphocytes % (Manual) Nucleated RBC % Seg Neutrophils # 13.2 H Seg Neutrophils # Man Lymphocytes # (Manual) D-Dimer ABG pH POC ABG pCO2 POC ABG pO2 ABG pO2 ABG O2 Saturation ABG Base Excess ABG Oxyhemoglobin ABG Chloride ABG Glucose Oxyhemoglobin Carboxyhemoglobin Sodium Potassium Chloride Carbon Dioxide BUN Creatinine Glucose POC Glucose 242 H 230 H Hemoglobin A1c Calcium Magnesium Ferritin Lactate Dehydrogenase Troponin T C-Reactive Protein Total Protein Albumin Suaqd-0-Wrltzezpl Luowy-2-Vsaeliwge Beta Globulins PEP Interpretation Triglycerides HDL Cholesterol Arterial Blood Glucose Arterial Blood Ionized Calcium Coronavirus (PCR) 06/09/21 06/09/21 06/09/21 08:42 12:05 12:19 WBC RBC Hgb Hct RDW Plt Count Lymph % (Auto) Lymph # (Auto) Seg Neutrophils % Seg Neuts % (Manual) Lymphocytes % (Manual) Nucleated RBC % Seg Neutrophils # Seg Neutrophils # Man Lymphocytes # (Manual) D-Dimer ABG pH POC ABG pCO2 POC ABG pO2 71.4 L ABG pO2 ABG O2 Saturation ABG Base Excess ABG Oxyhemoglobin 92.9 L ABG Chloride 109.0 H ABG Glucose 287 H Oxyhemoglobin Carboxyhemoglobin 0.4 L Sodium Potassium Chloride Carbon Dioxide 17 L BUN 74 H Creatinine 3.7 H Glucose 259 H POC Glucose 274 H Hemoglobin A1c Calcium 8.3 L Magnesium Ferritin Lactate Dehydrogenase Troponin T C-Reactive Protein Total Protein Albumin Jsves-0-Iebisukzt Grdqr-5-Shbikegtz Beta Globulins PEP Interpretation Triglycerides HDL Cholesterol Arterial Blood Glucose 287 H Arterial Blood Ionized Calcium Coronavirus (PCR) 06/09/21 06/09/21 06/10/21 16:59 21:06 08:25 WBC RBC Hgb Hct RDW Plt Count Lymph % (Auto) Lymph # (Auto) Seg Neutrophils % Seg Neuts % (Manual) Lymphocytes % (Manual) Nucleated RBC % Seg Neutrophils # Seg Neutrophils # Man Lymphocytes # (Manual) D-Dimer ABG pH POC ABG pCO2 POC ABG pO2 ABG pO2 ABG O2 Saturation ABG Base Excess ABG Oxyhemoglobin ABG Chloride ABG Glucose Oxyhemoglobin Carboxyhemoglobin Sodium Potassium Chloride Carbon Dioxide BUN Creatinine Glucose POC Glucose 268 H 263 H 280 H Hemoglobin A1c Calcium Magnesium Ferritin Lactate Dehydrogenase Troponin T C-Reactive Protein Total Protein Albumin Vsjhi-8-Kdkrnvfeu Pkeho-9-Uaphxtcfj Beta Globulins PEP Interpretation Triglycerides HDL Cholesterol Arterial Blood Glucose Arterial Blood Ionized Calcium Coronavirus (PCR) 06/10/21 06/10/21 06/10/21 12:07 15:38 21:04 WBC RBC Hgb Hct RDW Plt Count Lymph % (Auto) Lymph # (Auto) Seg Neutrophils % Seg Neuts % (Manual) Lymphocytes % (Manual) Nucleated RBC % Seg Neutrophils # Seg Neutrophils # Man Lymphocytes # (Manual) D-Dimer ABG pH POC ABG pCO2 POC ABG pO2 ABG pO2 ABG O2 Saturation ABG Base Excess ABG Oxyhemoglobin ABG Chloride ABG Glucose Oxyhemoglobin Carboxyhemoglobin Sodium Potassium Chloride Carbon Dioxide BUN Creatinine Glucose POC Glucose 247 H 269 H 195 H Hemoglobin A1c Calcium Magnesium Ferritin Lactate Dehydrogenase Troponin T C-Reactive Protein Total Protein Albumin Qchxm-6-Ytdoouzmj Ujswh-0-Rxyhhwnmr Beta Globulins PEP Interpretation Triglycerides HDL Cholesterol Arterial Blood Glucose Arterial Blood Ionized Calcium Coronavirus (PCR) 06/10/21 06/10/21 06/10/21 23:14 23:14 23:14 WBC RBC Hgb Hct RDW 15.3 H Plt Count Lymph % (Auto) Lymph # (Auto) Seg Neutrophils % Seg Neuts % (Manual) 93.0 H Lymphocytes % (Manual) 2.0 L Nucleated RBC % 3.0 H Seg Neutrophils # Seg Neutrophils # Man 10.2 H Lymphocytes # (Manual) 0.2 L D-Dimer ABG pH POC ABG pCO2 POC ABG pO2 ABG pO2 ABG O2 Saturation ABG Base Excess ABG Oxyhemoglobin ABG Chloride ABG Glucose Oxyhemoglobin Carboxyhemoglobin Sodium 148 H D Potassium Chloride 111.7 H Carbon Dioxide 20 L BUN 70 H Creatinine 3.2 H Glucose 186 H POC Glucose Hemoglobin A1c Calcium Magnesium Ferritin Lactate Dehydrogenase Troponin T C-Reactive Protein Total Protein Albumin 2.6 L Qiuko-6-Yjgcgpdnb 0.5 H Aafgo-9-Tqkzjbliy 1.7 H Beta Globulins 0.6 H PEP Interpretation see below H Triglycerides HDL Cholesterol Arterial Blood Glucose Arterial Blood Ionized Calcium Coronavirus (PCR) 06/10/21 06/10/21 06/10/21 23:14 23:14 23:14 WBC RBC Hgb Hct RDW Plt Count Lymph % (Auto) Lymph # (Auto) Seg Neutrophils % Seg Neuts % (Manual) Lymphocytes % (Manual) Nucleated RBC % Seg Neutrophils # Seg Neutrophils # Man Lymphocytes # (Manual) D-Dimer > 49545 H ABG pH POC ABG pCO2 POC ABG pO2 ABG pO2 ABG O2 Saturation ABG Base Excess ABG Oxyhemoglobin ABG Chloride ABG Glucose Oxyhemoglobin Carboxyhemoglobin Sodium Potassium Chloride Carbon Dioxide BUN Creatinine Glucose POC Glucose Hemoglobin A1c Calcium Magnesium 2.50 H Ferritin 1319.0 H Lactate Dehydrogenase 606 H Troponin T C-Reactive Protein Total Protein Albumin Uogaa-7-Cprbvnjvt Wwapj-0-Pjnvknswu Beta Globulins PEP Interpretation Triglycerides HDL Cholesterol Arterial Blood Glucose Arterial Blood Ionized Calcium Coronavirus (PCR) 06/11/21 06/11/21 06/11/21 07:34 10:57 10:57 WBC RBC Hgb Hct RDW Plt Count Lymph % (Auto) Lymph # (Auto) Seg Neutrophils % Seg Neuts % (Manual) Lymphocytes % (Manual) Nucleated RBC % Seg Neutrophils # Seg Neutrophils # Man Lymphocytes # (Manual) D-Dimer > 80087 H ABG pH POC ABG pCO2 POC ABG pO2 ABG pO2 ABG O2 Saturation ABG Base Excess ABG Oxyhemoglobin ABG Chloride ABG Glucose Oxyhemoglobin Carboxyhemoglobin Sodium Potassium Chloride Carbon Dioxide BUN Creatinine Glucose POC Glucose 169 H Hemoglobin A1c Calcium Magnesium Ferritin 1300.0 H Lactate Dehydrogenase Troponin T C-Reactive Protein Total Protein Albumin Bcdty-7-Lignfvmkg Htwmo-2-Imzxjlzai Beta Globulins PEP Interpretation Triglycerides HDL Cholesterol Arterial Blood Glucose Arterial Blood Ionized Calcium Coronavirus (PCR) 06/11/21 06/11/21 06/11/21 10:58 10:58 11:49 WBC 11.3 H RBC Hgb Hct RDW 15.3 H Plt Count Lymph % (Auto) Lymph # (Auto) Seg Neutrophils % Seg Neuts % (Manual) 88.0 H Lymphocytes % (Manual) 6.0 L Nucleated RBC % Seg Neutrophils # Seg Neutrophils # Man 9.9 H Lymphocytes # (Manual) 0.7 L D-Dimer ABG pH POC ABG pCO2 POC ABG pO2 ABG pO2 ABG O2 Saturation ABG Base Excess ABG Oxyhemoglobin ABG Chloride ABG Glucose Oxyhemoglobin Carboxyhemoglobin Sodium 150 H Potassium 3.4 L Chloride 114.8 H Carbon Dioxide 21 L BUN 65 H Creatinine 2.9 H Glucose 180 H POC Glucose 191 H Hemoglobin A1c Calcium Magnesium 2.50 H Ferritin Lactate Dehydrogenase Troponin T C-Reactive Protein 1.90 H Total Protein Albumin Skfhq-9-Jcfrowsrv Rjbij-6-Tdicfwzwq Beta Globulins PEP Interpretation Triglycerides HDL Cholesterol Arterial Blood Glucose Arterial Blood Ionized Calcium Coronavirus (PCR) 06/11/21 06/11/21 06/12/21 15:49 21:16 04:22 WBC RBC Hgb Hct RDW Plt Count Lymph % (Auto) Lymph # (Auto) Seg Neutrophils % Seg Neuts % (Manual) Lymphocytes % (Manual) Nucleated RBC % Seg Neutrophils # Seg Neutrophils # Man Lymphocytes # (Manual) D-Dimer ABG pH 7.318 L POC ABG pCO2 POC ABG pO2 ABG pO2 51.5 L ABG O2 Saturation 86.9 L ABG Base Excess -5.6 L ABG Oxyhemoglobin ABG Chloride ABG Glucose Oxyhemoglobin 85.5 L Carboxyhemoglobin Sodium Potassium Chloride Carbon Dioxide BUN Creatinine Glucose POC Glucose 185 H 200 H Hemoglobin A1c Calcium Magnesium Ferritin Lactate Dehydrogenase Troponin T C-Reactive Protein Total Protein Albumin Rrpmk-2-Kchlmjyiz Zziqk-7-Syrpjpaxj Beta Globulins PEP Interpretation Triglycerides HDL Cholesterol Arterial Blood Glucose Arterial Blood Ionized Calcium Coronavirus (PCR) 06/12/21 06/12/21 06/12/21 07:41 08:31 08:31 WBC 12.4 H RBC Hgb Hct RDW 15.3 H Plt Count Lymph % (Auto) 8.5 L Lymph # (Auto) 1.1 L Seg Neutrophils % 88.1 H Seg Neuts % (Manual) Lymphocytes % (Manual) Nucleated RBC % Seg Neutrophils # 10.9 H Seg Neutrophils # Man Lymphocytes # (Manual) D-Dimer ABG pH POC ABG pCO2 POC ABG pO2 ABG pO2 ABG O2 Saturation ABG Base Excess ABG Oxyhemoglobin ABG Chloride ABG Glucose Oxyhemoglobin Carboxyhemoglobin Sodium 151 H Potassium Chloride 117.3 H Carbon Dioxide 21 L BUN 61 H Creatinine 2.5 H Glucose 165 H POC Glucose 165 H Hemoglobin A1c Calcium 8.3 L Magnesium Ferritin Lactate Dehydrogenase Troponin T C-Reactive Protein Total Protein Albumin Zfwvq-1-Aauwyhisn Vobyl-7-Hfgnbswbj Beta Globulins PEP Interpretation Triglycerides HDL Cholesterol Arterial Blood Glucose Arterial Blood Ionized Calcium Coronavirus (PCR) 06/12/21 06/12/21 06/12/21 08:31 10:32 15:47 WBC RBC Hgb Hct RDW Plt Count Lymph % (Auto) Lymph # (Auto) Seg Neutrophils % Seg Neuts % (Manual) Lymphocytes % (Manual) Nucleated RBC % Seg Neutrophils # Seg Neutrophils # Man Lymphocytes # (Manual) D-Dimer ABG pH POC ABG pCO2 POC ABG pO2 ABG pO2 ABG O2 Saturation ABG Base Excess ABG Oxyhemoglobin ABG Chloride ABG Glucose Oxyhemoglobin Carboxyhemoglobin Sodium Potassium Chloride Carbon Dioxide BUN Creatinine Glucose POC Glucose 156 H 176 H Hemoglobin A1c Calcium Magnesium 2.50 H Ferritin Lactate Dehydrogenase Troponin T C-Reactive Protein Total Protein Albumin Kxndf-5-Hzepfaobs Gplfp-1-Phkkoyvzs Beta Globulins PEP Interpretation Triglycerides HDL Cholesterol Arterial Blood Glucose Arterial Blood Ionized Calcium Coronavirus (PCR) 06/12/21 06/13/21 06/13/21 21:50 07:42 07:42 WBC 14.1 H RBC Hgb Hct RDW 15.3 H Plt Count Lymph % (Auto) Lymph # (Auto) Seg Neutrophils % Seg Neuts % (Manual) 87.0 H Lymphocytes % (Manual) 7.0 L Nucleated RBC % 3.0 H Seg Neutrophils # Seg Neutrophils # Man 12.3 H Lymphocytes # (Manual) 1.0 L D-Dimer ABG pH POC ABG pCO2 POC ABG pO2 ABG pO2 ABG O2 Saturation ABG Base Excess ABG Oxyhemoglobin ABG Chloride ABG Glucose Oxyhemoglobin Carboxyhemoglobin Sodium 151 H Potassium 3.5 L Chloride 116.0 H Carbon Dioxide BUN 61 H Creatinine 2.3 H Glucose 135 H POC Glucose 165 H Hemoglobin A1c Calcium Magnesium 2.50 H Ferritin Lactate Dehydrogenase Troponin T C-Reactive Protein Total Protein Albumin Nmcdt-5-Mncjlxyls Qqhfp-3-Zsirmncfl Beta Globulins PEP Interpretation Triglycerides HDL Cholesterol Arterial Blood Glucose Arterial Blood Ionized Calcium Coronavirus (PCR) 06/13/21 06/13/21 06/13/21 08:10 11:10 18:15 WBC RBC Hgb Hct RDW Plt Count Lymph % (Auto) Lymph # (Auto) Seg Neutrophils % Seg Neuts % (Manual) Lymphocytes % (Manual) Nucleated RBC % Seg Neutrophils # Seg Neutrophils # Man Lymphocytes # (Manual) D-Dimer ABG pH POC ABG pCO2 POC ABG pO2 ABG pO2 ABG O2 Saturation ABG Base Excess ABG Oxyhemoglobin ABG Chloride ABG Glucose Oxyhemoglobin Carboxyhemoglobin Sodium Potassium Chloride Carbon Dioxide BUN Creatinine Glucose POC Glucose 118 H 139 H 179 H Hemoglobin A1c Calcium Magnesium Ferritin Lactate Dehydrogenase Troponin T C-Reactive Protein Total Protein Albumin Qltqq-8-Ejyofcpmx Pcuyy-9-Mgyxrjjgb Beta Globulins PEP Interpretation Triglycerides HDL Cholesterol Arterial Blood Glucose Arterial Blood Ionized Calcium Coronavirus (PCR) 06/13/21 06/13/21 06/14/21 21:54 23:27 04:42 WBC 12.8 H RBC Hgb Hct RDW 15.3 H Plt Count Lymph % (Auto) Lymph # (Auto) Seg Neutrophils % Seg Neuts % (Manual) 92.0 H Lymphocytes % (Manual) 1.0 L Nucleated RBC % 2.0 H Seg Neutrophils # Seg Neutrophils # Man 11.8 H Lymphocytes # (Manual) 0.1 L D-Dimer ABG pH POC ABG pCO2 POC ABG pO2 ABG pO2 ABG O2 Saturation ABG Base Excess ABG Oxyhemoglobin ABG Chloride ABG Glucose Oxyhemoglobin Carboxyhemoglobin Sodium 152 H Potassium Chloride 116.3 H Carbon Dioxide 21 L BUN 67 H Creatinine 2.5 H Glucose 212 H POC Glucose 193 H Hemoglobin A1c Calcium Magnesium Ferritin Lactate Dehydrogenase Troponin T C-Reactive Protein Total Protein Albumin Oatzc-9-Oywlczjou Kinvt-3-Gtwkzkebu Beta Globulins PEP Interpretation Triglycerides HDL Cholesterol Arterial Blood Glucose Arterial Blood Ionized Calcium Coronavirus (PCR) 06/14/21 06/14/21 06/14/21 04:42 04:42 07:33 WBC RBC Hgb Hct RDW Plt Count Lymph % (Auto) Lymph # (Auto) Seg Neutrophils % Seg Neuts % (Manual) Lymphocytes % (Manual) Nucleated RBC % Seg Neutrophils # Seg Neutrophils # Man Lymphocytes # (Manual) D-Dimer ABG pH POC ABG pCO2 POC ABG pO2 ABG pO2 ABG O2 Saturation ABG Base Excess ABG Oxyhemoglobin ABG Chloride ABG Glucose Oxyhemoglobin Carboxyhemoglobin Sodium 152 H Potassium Chloride 115.3 H Carbon Dioxide BUN 68 H Creatinine 2.5 H Glucose 188 H POC Glucose 173 H Hemoglobin A1c Calcium Magnesium 2.40 H Ferritin Lactate Dehydrogenase Troponin T C-Reactive Protein Total Protein Albumin Tceew-1-Vhokusjvu Cqscg-0-Qrmozpwba Beta Globulins PEP Interpretation Triglycerides HDL Cholesterol Arterial Blood Glucose Arterial Blood Ionized Calcium Coronavirus (PCR) 06/14/21 06/14/21 06/14/21 10:57 15:53 23:40 WBC RBC Hgb Hct RDW Plt Count Lymph % (Auto) Lymph # (Auto) Seg Neutrophils % Seg Neuts % (Manual) Lymphocytes % (Manual) Nucleated RBC % Seg Neutrophils # Seg Neutrophils # Man Lymphocytes # (Manual) D-Dimer ABG pH POC ABG pCO2 POC ABG pO2 ABG pO2 ABG O2 Saturation ABG Base Excess ABG Oxyhemoglobin ABG Chloride ABG Glucose Oxyhemoglobin Carboxyhemoglobin Sodium Potassium Chloride Carbon Dioxide BUN Creatinine Glucose POC Glucose 195 H 226 H 235 H Hemoglobin A1c Calcium Magnesium Ferritin Lactate Dehydrogenase Troponin T C-Reactive Protein Total Protein Albumin Ymuig-6-Bfcbfslhe Qbhbn-8-Etjxanakg Beta Globulins PEP Interpretation Triglycerides HDL Cholesterol Arterial Blood Glucose Arterial Blood Ionized Calcium Coronavirus (PCR) 06/15/21 06/15/21 06/15/21 07:38 07:38 07:38 WBC 14.3 H RBC Hgb Hct RDW Plt Count Lymph % (Auto) Lymph # (Auto) Seg Neutrophils % Seg Neuts % (Manual) 95.0 H Lymphocytes % (Manual) 1.0 L Nucleated RBC % Seg Neutrophils # Seg Neutrophils # Man 13.6 H Lymphocytes # (Manual) 0.1 L D-Dimer > 95445 H ABG pH POC ABG pCO2 POC ABG pO2 ABG pO2 ABG O2 Saturation ABG Base Excess ABG Oxyhemoglobin ABG Chloride ABG Glucose Oxyhemoglobin Carboxyhemoglobin Sodium 153 H Potassium 3.5 L Chloride 115.9 H Carbon Dioxide BUN 55 H Creatinine 2.1 H Glucose 213 H POC Glucose Hemoglobin A1c Calcium Magnesium Ferritin Lactate Dehydrogenase Troponin T C-Reactive Protein Total Protein Albumin Zuijx-6-Xndzsqmsp Aiwya-2-Cydrfgflc Beta Globulins PEP Interpretation Triglycerides HDL Cholesterol Arterial Blood Glucose Arterial Blood Ionized Calcium Coronavirus (PCR) 06/15/21 06/15/21 06/15/21 07:38 09:21 11:46 WBC RBC Hgb Hct RDW Plt Count Lymph % (Auto) Lymph # (Auto) Seg Neutrophils % Seg Neuts % (Manual) Lymphocytes % (Manual) Nucleated RBC % Seg Neutrophils # Seg Neutrophils # Man Lymphocytes # (Manual) D-Dimer ABG pH POC ABG pCO2 POC ABG pO2 ABG pO2 ABG O2 Saturation ABG Base Excess ABG Oxyhemoglobin ABG Chloride ABG Glucose Oxyhemoglobin Carboxyhemoglobin Sodium Potassium Chloride Carbon Dioxide BUN Creatinine Glucose POC Glucose 202 H 233 H Hemoglobin A1c Calcium Magnesium Ferritin 1246.0 H Lactate Dehydrogenase Troponin T C-Reactive Protein Total Protein Albumin Gtush-9-Oxbkgvrdc Tnrqi-5-Ybgmmlvgt Beta Globulins PEP Interpretation Triglycerides HDL Cholesterol Arterial Blood Glucose Arterial Blood Ionized Calcium Coronavirus (PCR) 06/15/21 06/16/21 06/16/21 17:32 05:44 07:48 WBC RBC Hgb Hct RDW Plt Count Lymph % (Auto) Lymph # (Auto) Seg Neutrophils % Seg Neuts % (Manual) Lymphocytes % (Manual) Nucleated RBC % Seg Neutrophils # Seg Neutrophils # Man Lymphocytes # (Manual) D-Dimer ABG pH POC ABG pCO2 POC ABG pO2 ABG pO2 ABG O2 Saturation ABG Base Excess ABG Oxyhemoglobin ABG Chloride ABG Glucose Oxyhemoglobin Carboxyhemoglobin Sodium 154 H Potassium Chloride 117.2 H Carbon Dioxide BUN 54 H Creatinine 2.0 H Glucose 120 H POC Glucose 179 H 109 H Hemoglobin A1c Calcium Magnesium Ferritin Lactate Dehydrogenase Troponin T C-Reactive Protein Total Protein Albumin Ohmom-3-Xrqnxgtdq Uvcoa-0-Cdtktyvbx Beta Globulins PEP Interpretation Triglycerides HDL Cholesterol Arterial Blood Glucose Arterial Blood Ionized Calcium Coronavirus (PCR) 06/16/21 06/16/21 06/16/21 11:13 15:22 21:15 WBC RBC Hgb Hct RDW Plt Count Lymph % (Auto) Lymph # (Auto) Seg Neutrophils % Seg Neuts % (Manual) Lymphocytes % (Manual) Nucleated RBC % Seg Neutrophils # Seg Neutrophils # Man Lymphocytes # (Manual) D-Dimer ABG pH POC ABG pCO2 POC ABG pO2 ABG pO2 ABG O2 Saturation ABG Base Excess ABG Oxyhemoglobin ABG Chloride ABG Glucose Oxyhemoglobin Carboxyhemoglobin Sodium Potassium Chloride Carbon Dioxide BUN Creatinine Glucose POC Glucose 222 H 218 H 250 H Hemoglobin A1c Calcium Magnesium Ferritin Lactate Dehydrogenase Troponin T C-Reactive Protein Total Protein Albumin Kxubk-9-Rrkpvwgdf Bopke-0-Sktkwhmqw Beta Globulins PEP Interpretation Triglycerides HDL Cholesterol Arterial Blood Glucose Arterial Blood Ionized Calcium Coronavirus (PCR) 06/17/21 06/17/21 06/17/21 07:55 09:35 09:35 WBC RBC Hgb Hct RDW 15.7 H Plt Count 99 L Lymph % (Auto) Lymph # (Auto) Seg Neutrophils % Seg Neuts % (Manual) Lymphocytes % (Manual) Nucleated RBC % Seg Neutrophils # Seg Neutrophils # Man Lymphocytes # (Manual) D-Dimer ABG pH POC ABG pCO2 POC ABG pO2 ABG pO2 ABG O2 Saturation ABG Base Excess ABG Oxyhemoglobin ABG Chloride ABG Glucose Oxyhemoglobin Carboxyhemoglobin Sodium 148 H Potassium Chloride 113.3 H Carbon Dioxide BUN 45 H Creatinine 1.8 H Glucose 202 H POC Glucose 158 H Hemoglobin A1c Calcium Magnesium Ferritin Lactate Dehydrogenase Troponin T C-Reactive Protein Total Protein 6.0 L Albumin 2.8 L Dqaqd-4-Rhaggqptu Veadt-0-Xufogqfta Beta Globulins PEP Interpretation Triglycerides HDL Cholesterol Arterial Blood Glucose Arterial Blood Ionized Calcium Coronavirus (PCR) 06/17/21 06/17/21 06/18/21 12:32 16:46 06:00 WBC RBC Hgb Hct RDW Plt Count Lymph % (Auto) Lymph # (Auto) Seg Neutrophils % Seg Neuts % (Manual) Lymphocytes % (Manual) Nucleated RBC % Seg Neutrophils # Seg Neutrophils # Man Lymphocytes # (Manual) D-Dimer 9804.08 H ABG pH POC ABG pCO2 POC ABG pO2 ABG pO2 ABG O2 Saturation ABG Base Excess ABG Oxyhemoglobin ABG Chloride ABG Glucose Oxyhemoglobin Carboxyhemoglobin Sodium Potassium Chloride Carbon Dioxide BUN Creatinine Glucose POC Glucose 227 H 203 H Hemoglobin A1c Calcium Magnesium Ferritin Lactate Dehydrogenase Troponin T C-Reactive Protein Total Protein Albumin Rqigk-7-Rmwzfcvqz Lcmjf-4-Oopmrhgys Beta Globulins PEP Interpretation Triglycerides HDL Cholesterol Arterial Blood Glucose Arterial Blood Ionized Calcium Coronavirus (PCR) 06/18/21 06/18/21 06/18/21 06:00 08:00 10:10 WBC RBC Hgb Hct RDW Plt Count Lymph % (Auto) Lymph # (Auto) Seg Neutrophils % Seg Neuts % (Manual) Lymphocytes % (Manual) Nucleated RBC % Seg Neutrophils # Seg Neutrophils # Man Lymphocytes # (Manual) D-Dimer ABG pH POC ABG pCO2 POC ABG pO2 ABG pO2 ABG O2 Saturation ABG Base Excess ABG Oxyhemoglobin ABG Chloride ABG Glucose Oxyhemoglobin Carboxyhemoglobin Sodium Potassium Chloride 110.1 H Carbon Dioxide BUN 39 H Creatinine 1.8 H Glucose 135 H POC Glucose 107 H Hemoglobin A1c Calcium Magnesium Ferritin 904.2 H Lactate Dehydrogenase Troponin T C-Reactive Protein Total Protein Albumin Upfyp-5-Qdlwvcper Mrfnm-1-Mkzlzkdsk Beta Globulins PEP Interpretation Triglycerides HDL Cholesterol Arterial Blood Glucose Arterial Blood Ionized Calcium Coronavirus (PCR) 06/18/21 06/18/21 06/18/21 12:06 16:47 21:14 WBC RBC Hgb Hct RDW Plt Count Lymph % (Auto) Lymph # (Auto) Seg Neutrophils % Seg Neuts % (Manual) Lymphocytes % (Manual) Nucleated RBC % Seg Neutrophils # Seg Neutrophils # Man Lymphocytes # (Manual) D-Dimer ABG pH POC ABG pCO2 POC ABG pO2 ABG pO2 ABG O2 Saturation ABG Base Excess ABG Oxyhemoglobin ABG Chloride ABG Glucose Oxyhemoglobin Carboxyhemoglobin Sodium Potassium Chloride Carbon Dioxide BUN Creatinine Glucose POC Glucose 160 H 236 H 186 H Hemoglobin A1c Calcium Magnesium Ferritin Lactate Dehydrogenase Troponin T C-Reactive Protein Total Protein Albumin Vsknb-3-Ligwpcbzh Bovqt-0-Kmzfaavaw Beta Globulins PEP Interpretation Triglycerides HDL Cholesterol Arterial Blood Glucose Arterial Blood Ionized Calcium Coronavirus (PCR) 06/19/21 06/19/21 06/20/21 15:46 15:46 08:04 WBC RBC Hgb Hct RDW 15.5 H Plt Count 73 L Lymph % (Auto) Lymph # (Auto) Seg Neutrophils % Seg Neuts % (Manual) Lymphocytes % (Manual) Nucleated RBC % Seg Neutrophils # Seg Neutrophils # Man Lymphocytes # (Manual) D-Dimer ABG pH POC ABG pCO2 POC ABG pO2 ABG pO2 ABG O2 Saturation ABG Base Excess ABG Oxyhemoglobin ABG Chloride ABG Glucose Oxyhemoglobin Carboxyhemoglobin Sodium 146 H Potassium Chloride 108.9 H Carbon Dioxide BUN 38 H Creatinine 1.7 H Glucose POC Glucose 52 L Hemoglobin A1c Calcium Magnesium Ferritin Lactate Dehydrogenase Troponin T C-Reactive Protein Total Protein Albumin Stzvr-3-Bjswsuxel Djnqt-4-Nywpnepyk Beta Globulins PEP Interpretation Triglycerides HDL Cholesterol Arterial Blood Glucose Arterial Blood Ionized Calcium Coronavirus (PCR) 06/20/21 06/20/21 06/20/21 11:58 15:16 17:54 WBC RBC Hgb Hct RDW Plt Count Lymph % (Auto) Lymph # (Auto) Seg Neutrophils % Seg Neuts % (Manual) Lymphocytes % (Manual) Nucleated RBC % Seg Neutrophils # Seg Neutrophils # Man Lymphocytes # (Manual) D-Dimer ABG pH POC ABG pCO2 POC ABG pO2 ABG pO2 ABG O2 Saturation ABG Base Excess ABG Oxyhemoglobin ABG Chloride ABG Glucose Oxyhemoglobin Carboxyhemoglobin Sodium 146 H Potassium Chloride 108.2 H Carbon Dioxide BUN 37 H Creatinine 1.7 H Glucose 131 H POC Glucose 58 L 219 H Hemoglobin A1c Calcium Magnesium Ferritin Lactate Dehydrogenase Troponin T C-Reactive Protein Total Protein Albumin Zyfer-6-Ydfsmtwev Mkiid-8-Dqeirepsf Beta Globulins PEP Interpretation Triglycerides HDL Cholesterol Arterial Blood Glucose Arterial Blood Ionized Calcium Coronavirus (PCR) 06/20/21 06/21/21 06/21/21 21:58 06:00 07:41 WBC RBC Hgb Hct RDW Plt Count Lymph % (Auto) Lymph # (Auto) Seg Neutrophils % Seg Neuts % (Manual) Lymphocytes % (Manual) Nucleated RBC % Seg Neutrophils # Seg Neutrophils # Man Lymphocytes # (Manual) D-Dimer ABG pH POC ABG pCO2 POC ABG pO2 ABG pO2 ABG O2 Saturation ABG Base Excess ABG Oxyhemoglobin ABG Chloride ABG Glucose Oxyhemoglobin Carboxyhemoglobin Sodium Potassium Chloride Carbon Dioxide BUN 42 H Creatinine 2.0 H Glucose 225 H POC Glucose 180 H 204 H Hemoglobin A1c Calcium Magnesium Ferritin Lactate Dehydrogenase Troponin T C-Reactive Protein Total Protein Albumin Aiund-2-Kepdmnvgv Bugkh-2-Lshjdtbsa Beta Globulins PEP Interpretation Triglycerides HDL Cholesterol Arterial Blood Glucose Arterial Blood Ionized Calcium Coronavirus (PCR) 06/21/21 06/21/21 06/21/21 11:01 11:20 15:57 WBC RBC Hgb Hct RDW Plt Count Lymph % (Auto) Lymph # (Auto) Seg Neutrophils % Seg Neuts % (Manual) Lymphocytes % (Manual) Nucleated RBC % Seg Neutrophils # Seg Neutrophils # Man Lymphocytes # (Manual) D-Dimer ABG pH POC ABG pCO2 POC ABG pO2 58.9 L ABG pO2 ABG O2 Saturation ABG Base Excess ABG Oxyhemoglobin 87.4 L ABG Chloride ABG Glucose 212 H Oxyhemoglobin Carboxyhemoglobin Sodium Potassium Chloride Carbon Dioxide BUN Creatinine Glucose POC Glucose 194 H 171 H Hemoglobin A1c Calcium Magnesium Ferritin Lactate Dehydrogenase Troponin T C-Reactive Protein Total Protein Albumin Prctf-7-Fyoinkpem Okdsg-5-Wyrxunizt Beta Globulins PEP Interpretation Triglycerides HDL Cholesterol Arterial Blood Glucose 212 H Arterial Blood Ionized Calcium 4.5 L Coronavirus (PCR) 06/21/21 06/21/21 06/21/21 17:52 17:55 22:09 WBC RBC Hgb Hct RDW Plt Count Lymph % (Auto) Lymph # (Auto) Seg Neutrophils % Seg Neuts % (Manual) Lymphocytes % (Manual) Nucleated RBC % Seg Neutrophils # Seg Neutrophils # Man Lymphocytes # (Manual) D-Dimer ABG pH 7.316 L POC ABG pCO2 51.7 H POC ABG pO2 62.3 L ABG pO2 ABG O2 Saturation ABG Base Excess ABG Oxyhemoglobin 88.7 L ABG Chloride ABG Glucose 197 H Oxyhemoglobin Carboxyhemoglobin Sodium Potassium Chloride Carbon Dioxide BUN Creatinine Glucose POC Glucose 153 H 178 H Hemoglobin A1c Calcium Magnesium Ferritin Lactate Dehydrogenase Troponin T C-Reactive Protein Total Protein Albumin Jjpwx-1-Brjldwqgt Lggfo-8-Mtdhzxnma Beta Globulins PEP Interpretation Triglycerides HDL Cholesterol Arterial Blood Glucose 197 H Arterial Blood Ionized Calcium Coronavirus (PCR) 06/22/21 06/22/21 06/22/21 07:30 07:43 11:47 WBC RBC Hgb Hct RDW Plt Count Lymph % (Auto) Lymph # (Auto) Seg Neutrophils % Seg Neuts % (Manual) Lymphocytes % (Manual) Nucleated RBC % Seg Neutrophils # Seg Neutrophils # Man Lymphocytes # (Manual) D-Dimer ABG pH POC ABG pCO2 POC ABG pO2 ABG pO2 ABG O2 Saturation ABG Base Excess ABG Oxyhemoglobin ABG Chloride ABG Glucose Oxyhemoglobin Carboxyhemoglobin Sodium Potassium Chloride Carbon Dioxide 21 L BUN 55 H Creatinine 2.8 H Glucose 219 H POC Glucose 235 H 222 H Hemoglobin A1c Calcium Magnesium Ferritin Lactate Dehydrogenase Troponin T C-Reactive Protein Total Protein Albumin Ddalf-0-Wzxleuulh Ohacz-0-Ypxqkzbcb Beta Globulins PEP Interpretation Triglycerides HDL Cholesterol Arterial Blood Glucose Arterial Blood Ionized Calcium Coronavirus (PCR) 06/22/21 11:50 WBC RBC Hgb Hct RDW Plt Count Lymph % (Auto) Lymph # (Auto) Seg Neutrophils % Seg Neuts % (Manual) Lymphocytes % (Manual) Nucleated RBC % Seg Neutrophils # Seg Neutrophils # Man Lymphocytes # (Manual) D-Dimer ABG pH POC ABG pCO2 POC ABG pO2 56.8 L ABG pO2 ABG O2 Saturation ABG Base Excess ABG Oxyhemoglobin 86.7 L ABG Chloride ABG Glucose Oxyhemoglobin Carboxyhemoglobin Sodium Potassium Chloride Carbon Dioxide BUN Creatinine Glucose POC Glucose Hemoglobin A1c Calcium Magnesium Ferritin Lactate Dehydrogenase Troponin T C-Reactive Protein Total Protein Albumin Grpvp-5-Wlsjlonxw Whqig-0-Sncesqrlf Beta Globulins PEP Interpretation Triglycerides HDL Cholesterol Arterial Blood Glucose Arterial Blood Ionized Calcium Coronavirus (PCR) Chest x-ray: image reviewed (persistent bilateral pulmonary infiltrates) Allied health notes reviewed: nursing
[2021-06-22] MEDS ORDERED: SUCCINYLCHOLINE CHLORIDE 200 MG/10 ML INJ MDV ONE (13:14)
[2021-06-22] MEDS ORDERED: SODIUM CHLORIDE 0.9% 1000 ML 1,000 ML ONE (13:23)
[2021-06-22] MEDS: fentaNYL 100 MCG/2 ML INJ IV PRN ×2 (13:55→21:09)
--- NOTE | 2021-06-22 13:55 | Event Note ---
Date: 06/22/21 (ICU Intubation) Called to ICU for intubation of patient with impending respiratory failure 2/2 COVID PNA. Donned PPE per protocol prior to patient contact. On arrival, patient obtunded with increased WOB. VS BP [109]/[63], P [111/regular], SpO2 [89]% on FiO2 100% NIPPV. RT and RN at bedside. Preoxygenated with NIPPV already in place . Induction with etomidate 20mg IV and succinylcholine 160mg IV. Mask ventilation not attempted. Easy, atraumatic intubation x 1 attempt with GS 3, grade 1 view. 8.0 oETT secured at 22cm @ the lip. Placement confirmed with direct visualization and +CO2 color change. Placed on vent per RT. Post intubated VS BP [108]/[54], P [100], SpO2 [86]%. Patient bagged via AMBU by myself for several minutes without significant desaturation. AMBU respirations taken over by RN with plans for immediate transfer to ICU room and placement on ventilator. Sedation and CXR orders per ICU team. Approx time: [1316] - [1340] Prerna Dominguez MD Anesthesiologist
[2021-06-22] MEDS: fentaNYL DRIP Premix 2,000 MCG/100 ML BAG IV SCH ×3 (13:56→23:54)
--- NOTE | 2021-06-22 14:18 | XRay Report ---
ABDOMEN 1 VIEW(S) INDICATION / CLINICAL INFORMATION: ogt placement. COMPARISON: None available. FINDINGS: TUBES / LINES: The sidehole and distal tip of the nasogastric tube terminates in the mid stomach. BOWEL GAS PATTERN: No significant abnormality. FREE AIR / EXTRALUMINAL GAS: None seen. ADDITIONAL FINDINGS: No significant additional findings. IMPRESSION: No significant abnormality. The nasogastric tube terminates in the mid stomach. Signer Name: Zay Heller Jr, MD Signed: 06/22/2021 2:14 PM Workstation Name: [id number]
--- NOTE | 2021-06-22 14:20 | XRay Report ---
CHEST 1 VIEW INDICATION: ETT placement. COMPARISON: Earlier today at 0846 hours FINDINGS: Support devices: The endotracheal tube terminates 4.9 cm superior to the jennifer. Nasogastric tube tra nsverses the esophagus. Heart: Stable borderline to mild cardiomegaly Lungs/Pleura: Stable diffuse bilateral lung opacities or congestive changes. No consolidation, pleura l effusion or pneumothorax. Additional findings: None. IMPRESSION: Adequate placement of the endotracheal tube. Otherwise no change since earlier today. Signer Name: Zay Heller Jr, MD Signed: 06/22/2021 2:15 PM Workstation Name: [id number]
[2021-06-22] MEDS ORDERED: SIMPLE SYRUP 15 ML FEEDTUBE PRN ×2 (14:36)
[2021-06-22] MEDS ORDERED: LIPASE 10,500/PROTEASE 25,000/AMYLASE 43,750 (UNITS) DR CAP FEEDTUBE PRN (14:36)
[2021-06-22] MEDS ORDERED: SODIUM BICARBONATE 325 MG TAB FEEDTUBE PRN (14:36)
[2021-06-22] MEDS: NORepinephrine/NS 8 MG-250 ML 8 MG/250 ML INFUS..BTL IV SCH ×2 (15:16→20:46)
[2021-06-22 15:23] LABS: ABG Base Excess -4.9 mmol/L (-2.0-3.0); ABG HCO3 22.2 mmol/L (20.0-26.0); ABG Methemoglobin 0.7 % (0.0-1.5); ABG Oxygen Saturation 85.7 % (95.0-99.0); ABG PCO2 49.1 mm Hg; ABG PH 7.273 pH Units (7.350-7.450)
[2021-06-22] MEDS: SODIUM BICARBONATE 650 MG TAB PO SCH ×3 (15:25→21:14)
--- NOTE | 2021-06-22 16:11 | Progress Note ---
Assessment and Plan Assessment COVID-19 breakthrough infection COVID-19 pneumonia Acute renal failure versus acute on chronic renal failure Acute hypoxic respiratory failure Insulin-dependent type 2 diabetes- uncontrolled Elevated troponin Hypertension-controlled Hypothyroidism Protein calorie malnutrition Hypernatremia Plan Renal labs reviewed. Serum creatinine 2.8 today, yesterday's was 2.0, non- oliguric Hypotension- on pressors now Acure Respiratory Failure- now intubated Renal US was negative for hydronephrosis Sodium level better at 142 today Replete potassium as needed Renally dose medications Avoid nephrotoxic agents Strict I&O's daily Obtain daily weights Plan of care reviewed by Dr. Schultz Subjective Date of service: 06/22/21 Principal diagnosis: ARDS; Pneumonia; COVID-19 virus infection; TREMAINE; DM II; Morbid obesity Interval history: Patient on isolation for CVOID-19 infection. Now intubated Objective - Vital Signs Vital signs: Vital Signs - 12hr 06/22/21 06/22/21 06/22/21 04:11 04:19 04:21 Temperature 96.6 F L Pulse Rate 110 H 103 H Pulse Rate [ From Monitor] Respiratory 43 H 28 H Rate Blood Pressure 118/70 118/70 O2 Sat by Pulse 95 92 Oximetry 06/22/21 06/22/21 06/22/21 04:31 04:41 04:51 Temperature Pulse Rate 109 H 115 H 105 H Pulse Rate [ From Monitor] Respiratory 37 H 21 41 H Rate Blood Pressure 118/70 118/70 118/70 O2 Sat by Pulse 93 93 93 Oximetry 06/22/21 06/22/21 06/22/21 05:01 05:11 05:21 Temperature Pulse Rate 76 79 77 Pulse Rate [ From Monitor] Respiratory 28 H 48 H 36 H Rate Blood Pressure 118/70 118/70 118/70 O2 Sat by Pulse 95 94 94 Oximetry 06/22/21 06/22/21 06/22/21 05:31 05:41 05:51 Temperature Pulse Rate 76 80 76 Pulse Rate [ From Monitor] Respiratory 27 H 38 H 22 Rate Blood Pressure 118/70 118/70 118/70 O2 Sat by Pulse 93 95 94 Oximetry 06/22/21 06/22/21 06/22/21 06:01 06:11 06:21 Temperature Pulse Rate 75 75 82 Pulse Rate [ From Monitor] Respiratory 26 H 31 H 15 Rate Blood Pressure 118/70 118/70 118/70 O2 Sat by Pulse 95 94 95 Oximetry 06/22/21 06/22/21 06/22/21 06:31 06:41 06:51 Temperature Pulse Rate 83 76 76 Pulse Rate [ From Monitor] Respiratory 37 H 39 H 32 H Rate Blood Pressure 118/70 118/70 118/70 O2 Sat by Pulse 94 95 94 Oximetry 06/22/21 06/22/21 06/22/21 07:01 07:11 07:21 Temperature Pulse Rate 77 75 78 Pulse Rate [ From Monitor] Respiratory 37 H 35 H 33 H Rate Blood Pressure 118/70 118/70 118/70 O2 Sat by Pulse 95 94 93 Oximetry 06/22/21 06/22/21 06/22/21 07:31 07:41 07:51 Temperature Pulse Rate 80 79 86 Pulse Rate [ From Monitor] Respiratory 45 H 35 H 34 H Rate Blood Pressure 118/70 118/70 118/70 O2 Sat by Pulse 95 93 91 Oximetry 06/22/21 06/22/21 06/22/21 08:00 08:01 08:11 Temperature Pulse Rate 78 85 Pulse Rate [ 89 From Monitor] Respiratory 37 H 42 H 34 H Rate Blood Pressure 130/83 130/83 O2 Sat by Pulse 91 91 91 Oximetry 06/22/21 06/22/21 06/22/21 08:21 08:31 08:33 Temperature Pulse Rate 86 85 88 Pulse Rate [ From Monitor] Respiratory 30 H 41 H 38 H Rate Blood Pressure 130/83 130/83 130/83 O2 Sat by Pulse 92 92 92 Oximetry 06/22/21 06/22/21 06/22/21 08:41 08:51 09:01 Temperature Pulse Rate 85 93 H 95 H Pulse Rate [ From Monitor] Respiratory 42 H 25 H 54 H Rate Blood Pressure 130/83 130/83 130/83 O2 Sat by Pulse 92 93 93 Oximetry 06/22/21 06/22/21 06/22/21 09:11 09:12 09:21 Temperature Pulse Rate 93 H 89 88 Pulse Rate [ From Monitor] Respiratory 45 H 52 H Rate Blood Pressure 130/83 130/83 O2 Sat by Pulse 92 92 Oximetry 06/22/21 06/22/21 06/22/21 09:31 09:41 09:51 Temperature Pulse Rate 89 89 96 H Pulse Rate [ From Monitor] Respiratory 54 H 45 H 51 H Rate Blood Pressure 130/83 130/83 130/83 O2 Sat by Pulse 92 91 91 Oximetry 06/22/21 06/22/21 06/22/21 10:01 10:11 10:21 Temperature Pulse Rate 91 H 100 H 93 H Pulse Rate [ From Monitor] Respiratory 50 H 55 H 53 H Rate Blood Pressure 130/83 130/83 130/83 O2 Sat by Pulse 91 91 91 Oximetry 06/22/21 06/22/21 06/22/21 10:31 10:41 10:51 Temperature Pulse Rate 103 H 95 H 109 H Pulse Rate [ From Monitor] Respiratory 61 H 54 H 53 H Rate Blood Pressure 130/83 130/83 130/83 O2 Sat by Pulse 91 91 91 Oximetry 06/22/21 06/22/21 06/22/21 11:01 11:11 11:21 Temperature Pulse Rate 97 H 99 H 100 H Pulse Rate [ From Monitor] Respiratory 58 H 55 H 52 H Rate Blood Pressure 130/83 130/83 130/83 O2 Sat by Pulse 91 91 91 Oximetry 06/22/21 06/22/21 06/22/21 11:31 11:41 11:51 Temperature Pulse Rate 94 H 100 H 102 H Pulse Rate [ From Monitor] Respiratory 55 H 48 H 58 H Rate Blood Pressure 130/83 130/83 130/83 O2 Sat by Pulse 90 90 91 Oximetry 06/22/21 06/22/21 06/22/21 12:00 12:01 12:11 Temperature 97.7 F Pulse Rate 101 H 102 H Pulse Rate [ From Monitor] Respiratory 57 H 55 H Rate Blood Pressure 130/83 101/53 O2 Sat by Pulse 92 91 Oximetry 06/22/21 06/22/21 06/22/21 12:15 12:21 12:31 Temperature Pulse Rate 105 H 104 H 106 H Pulse Rate [ From Monitor] Respiratory 58 H 56 H 58 H Rate Blood Pressure 101/53 101/53 101/53 O2 Sat by Pulse 91 91 90 Oximetry 06/22/21 06/22/21 06/22/21 12:41 14:18 15:48 Temperature Pulse Rate 107 H 114 H 116 H Pulse Rate [ From Monitor] Respiratory 59 H Rate Blood Pressure 101/53 104/47 83/48 O2 Sat by Pulse 90 91 86 Oximetry 06/22/21 15:58 Temperature Pulse Rate Pulse Rate [ From Monitor] Respiratory Rate Blood Pressure O2 Sat by Pulse 89 Oximetry - Lab 06/19/21 15:46 06/22/21 07:43 Most recent lab results ABG pH 7.273 pH Units (7.350-7.450) L 06/22/21 15:15 ABG pCO2 49.1 mm Hg 06/22/21 15:15 ABG pO2 58.0 mm Hg (80.0-90.0) L 06/22/21 15:15 ABG HCO3 22.2 mmol/L (20.0-26.0) 06/22/21 15:15 ABG O2 Saturation 85.7 % (95.0-99.0) L 06/22/21 15:15 Calcium 8.7 mg/dL (8.4-10.2) 06/22/21 07:43 Phosphorus 3.30 mg/dL (2.5-4.5) 06/14/21 04:42 Magnesium 2.40 mg/dL (1.7-2.3) H 06/14/21 04:42 Medications & Allergies - Medications Allergies/Adverse Reactions: Allergies latex Allergy (Verified 03/19/19 17:03) Unknown shellfish derived Allergy (Verified 03/19/19 17:03) Anaphylaxis strawberry Allergy (Verified 03/19/19 17:03) Anaphylaxis tomato Allergy (Verified 03/19/19 17:03) Anaphylaxis nuts Allergy (Uncoded 03/19/19 17:03) Anaphylaxis Home Medications: Home Medications Medication Instructions Recorded Confirmed Last Taken Type Albuterol Sulfate [Ventolin HFA] 2 puff IH Q4H PRN 01/29/14 06/11/21 02/01/15 History Levothyroxine (Nf) [Synthroid (Nf)] 275 mcg PO QAM 01/29/14 06/11/21 02/01/15 History Fluticasone/Salmeterol [Advair 1 each IH PRN PRN 01/26/15 06/11/21 02/02/15 10:00 History Diskus 250-50 mcg] Apixaban [Eliquis starter pack] 5 mg PO BID 09/13/19 06/11/21 Unknown History Insulin Aspart Prot/Insuln Asp 45 unit SUB-Q QAM 09/13/19 06/11/21 Unknown History [Novolog Mix 70-30 Flexpen] Insulin Glargine,Hum.rec.anlog 25 unit SQ HS 09/13/19 06/11/21 Unknown History [Basaglar Kwikpen U-100] Lovastatin [Altoprev] 20 mg PO DAILY 09/13/19 06/11/21 Unknown History Docusate Sodium [Colace CAP] 100 mg PO BID PRN #30 capsule 09/17/19 06/11/21 Unknown Rx Loratadine/Pseudoephedrine 1 each PO Q24HR #10 tablet 09/17/19 06/11/21 Unknown Rx [Claritin-D 24HR] Ondansetron [Zofran Odt] 4 mg PO Q8HR #20 tab.rapdis 09/17/19 06/11/21 Unknown Rx carvediloL [Coreg] 3.125 mg PO BID #60 tablet 09/17/19 06/11/21 Unknown Rx hydrALAZINE [Apresoline TAB] 25 mg PO Q8HR #90 tablet 09/17/19 06/11/21 Unknown Rx Active Medications: Generic Name Dose Route Start Last Admin Trade Name Freq PRN Reason Stop Dose Admin Acetaminophen 650 mg 06/07/21 21:41 Acetaminophen 325 Mg Tab PO Q4H PRN Pain MILD(1-3)/Fever >100.5/MARTÍNEZ Albuterol 2 puff 06/07/21 23:00 Albuterol 8.5 Gm Mdi Inhalation IH Q4HRT PRN Shortness Of Breath Lipase/Protease/Amylase 1 each 06/22/21 14:36 Lipase 10,500/Protease 25,000/Amylase 43,750 (Units) Dr Barahona FEEDTUBE PRN PRN For Clogged Feeding Tube Ascorbic Acid 500 mg 06/22/21 22:00 Ascorbic Acid 500 Mg Tab PO BID [facility] Atorvastatin Calcium 10 mg 06/08/21 10:00 06/22/21 15:25 Atorvastatin 10 Mg Tab PO Not Given DAILY [facility] Dextrose 50 ml 06/08/21 12:04 06/20/21 12:16 Dextrose 50% In Water (25gm) 50 Ml Syringe IV 50 ml Q30MIN PRN Administration Hypoglycemia Protocol Docusate Sodium 100 mg 06/07/21 21:33 Docusate Sodium 100 Mg Cap PO BID PRN Constipation Enoxaparin Sodium 160 mg 06/22/21 13:00 Enoxaparin 80 Mg/0.8 Ml Inj SUB-Q Q24HR [facility] Famotidine 10 mg 06/22/21 22:00 Famotidine 20 Mg/2 Ml Inj IV BID [facility] Fentanyl 50 mcg 06/22/21 13:07 06/22/21 13:55 Fentanyl 100 Mcg/2 Ml Inj IV 50 mcg Q10MIN PRN Administration ANALGESIA Hydralazine HCl 25 mg 06/07/21 22:00 06/22/21 15:26 Hydralazine 25 Mg Tab PO Not Given Q8HR [facility] Hydromorphone HCl 0.5 mg 06/07/21 21:41 Hydromorphone 1 Mg/1 Ml Inj IV Q3H PRN Pain , Severe (7-10) Hydromorphone HCl 0.25 mg 06/07/21 22:33 Hydromorphone 1 Mg/1 Ml Inj IV Q4H PRN Pain, Moderate (4-6) Hydrophilic Ointment 1 applic 06/22/21 13:07 Lip Therapy Vaseline TP Q2HR PRN Dry Lips Fentanyl Citrate 2,000 mcg in 100 mls @ 8.2 mls/hr 06/22/21 14:00 06/22/21 13:56 Fentanyl Drip Premix IV 1 mcg/kg/hr TITR [facility] 8.2 mls/hr Administration Protocol 1 MCG/KG/HR NORepinephrine/NS 8 MG-250 ML 8 mg in 250 mls @ 3.75 mls/hr 06/22/21 15:00 06/22/21 15:56 Norepinephrine/Ns 8 Mg-250 Ml (Double Conc) IV 16 mcg/min TITRATE [facility] 30 mls/hr Titration Protocol 2 MCG/MIN Insulin Human Isoph/Insulin Regular 15 unit 06/22/21 10:53 Insulin Nph/Regular 70/30 Inj SUB-Q BIDDIAB [facility] Insulin Human Regular 0 units 06/22/21 18:00 Insulin Regular, Human 100 Units/1 Ml SUB-Q Q6HR [facility] Protocol Levothyroxine Sodium 137.5 mcg 06/23/21 06:00 Levothyroxine 100 Mcg Inj IV DAILY@0600 [facility] Methylprednisolone Sodium Succinate 100 mg 06/21/21 16:00 06/22/21 10:35 Methylprednisolone Sod Succinate 125 Mg/2 Ml Inj IV 100 mg Q8H [facility] Administration Midodrine 10 mg 06/22/21 15:00 Midodrine 5 Mg Tab PO Q8H [facility] Multi-Ingred Cream/Lotion/Oil/Oint 1 applic 06/22/21 13:07 Mineral Oil/Petrolatum, White Ophth Oint 3.5 Gm OU Q4HR PRN Dry Eye(s) Ondansetron HCl 4 mg 06/07/21 21:41 06/20/21 22:15 Ondansetron 4 Mg/2 Ml Inj IV 4 mg Q8H PRN Administration Nausea And Vomiting Oxycodone/Acetaminophen 1 tab 06/07/21 21:41 06/09/21 17:05 Oxycodone /Acetaminophen 5-325mg Tab PO 1 tab Q6H PRN Administration Pain, Moderate (4-6) Senna/Docusate Sodium 1 tab 06/22/21 22:00 Sennosides/Docusate Sodium 8.6/50 Mg Tab FEEDTUBE BID [facility] Simple Syrup 15 ml 06/22/21 14:36 Simple Syrup 15 Ml FEEDTUBE PRN PRN Hypoglycemia Simple Syrup 30 ml 06/22/21 14:36 Simple Syrup 15 Ml FEEDTUBE PRN PRN Hypoglycemia Sodium Bicarbonate 650 mg 06/10/21 14:00 06/22/21 15:25 Sodium Bicarbonate 650 Mg Tab PO Not Given TID [facility] Sodium Bicarbonate 325 mg 06/22/21 14:36 Sodium Bicarbonate 325 Mg Tab FEEDTUBE PRN PRN For Clogged Feeding Tube Sodium Chloride 10 ml 06/07/21 22:00 06/22/21 10:36 Sodium Chloride 0.9% 10 Ml Flush Syringe IV 10 ml BID [facility] Administration Sodium Chloride 10 ml 06/07/21 21:41 Sodium Chloride 0.9% 10 Ml Flush Syringe IV PRN PRN LINE FLUSH Zinc Sulfate 220 mg 06/22/21 22:00 Zinc Sulfate 220 Mg Cap PO BID [facility]
[2021-06-22] MEDS: MIDODRINE 5 MG TAB PO SCH ×2 (16:16→21:59)
--- NOTE | 2021-06-22 16:51 | Progress Note ---
Assessment and Plan Assessment and plan: #Severe COVID-19 breakthrough infection #COVID-19 pneumonia #Severe ARDS -patient vaccinated -continue isolation precautions -inflammatory markers q3d -Transition from BiPAP to mechanical ventilation due to worsening respiratory status. -completed 10 days of steroids; continue IV Solu-Medrol 100 mg every 8 hours given worsening respiratory status (started on 06/21/2021) -continue vitamin C, zinc and vitamin D #Acute hypoxic respiratory failure-worsening Transitioned from BiPAP to mechanical ventilation -Pending repeat ABG in the evening; low threshold for intubation -continue nebulized treatments -Pulmonary following, recs appreciated #Acute encephalopathy -Delirium precautions -Discontinued nightly Seroquel and Xanax given altered mentation #Hypernatremia -likely secondary to poor p.o. intake -D5W @75 cc/hr -continue 400 cc every 4 hour free water flushes by mouth #Acute versus chronic renal failure -unknown baseline -avoid nephrotoxins -Nephrology managing #Insulin-dependent type 2 diabetes #Hypoglycemia -Glucose low as 58 -Discontinue D5W infusion. -Decreased Humulin to 15 units every 12 in the setting of patient being n.p.o. yet receiving high-dose IV steroids -continue sliding scale insulin -goal glucose 140-180 #Elevated troponin -resolved, likely type II #Hypertension -Controlled -continue BB and hydralazine at current doses #Hypothyroidism -Transitioned p.o. levothyroxine to IV levothyroxine 200 mcg #Protein calorie malnutrition -Nutrition consult #History of DVT -Discontinued Eliquis. Started Lovenox 1 mg/KG twice daily for therapeutic anticoagulation The high probability of a clinically significant, sudden or life threatening deterioration of the [neuro,resp, ID, renal] system(s) required my full and direct attention, intervention and personal management. The aggregate critical care time was [60] minutes. This time is in addition to time spent performing reported procedures but includes the following: [x] Data Review and interpretation [x] Patient assessment and monitoring of vital signs [x] Documentation [x] Medication orders and management Disposition Plan: Intubation and transfer to ICU Total Time Spent with Patient (Minutes): 60 History Interval history: Worsening respiratory status of patient with acute (likely) encephalopathy. Patient was transferred to ICU after being intubated. Hospitalist Physical - Constitutional Vitals: Temp Pulse Resp BP Pulse Ox 97.7 F 116 H 59 H 83/48 89 06/22/21 12:00 06/22/21 15:48 06/22/21 12:41 06/22/21 15:48 06/22/21 15:58 General appearance: Present: no acute distress, well-nourished, obese - EENT Eyes: Present: PERRL, EOM intact ENT: dentition normal, other (Unable to assess given mentation and intubation) - Neck Neck: Present: supple, normal ROM - Respiratory Respiratory effort: labored Respiratory: bilateral: diminished, rhonchi - Cardiovascular Heart rate: 110 Rhythm: regular Heart Sounds: Present: S1 & S2 - Extremities Extremities: no ischemia, pulses intact, pulses symmetrical, No edema, normal temperature, normal color Peripheral Pulses: within normal limits - Abdominal General gastrointestinal: soft, non-tender, non-distended, normal bowel sounds - Integumentary Integumentary: Present: clear, warm, dry - Psychiatric Psychiatric: other (Unable to assess given altered mentation) - Neurologic Neurologic: other (Unable to assess given altered mentation. Unresponsive) - Allied Health Allied health notes reviewed: nursing HEART Score - HEART Score EKG: Non-specific Age: 45-65 Risk factors: 1-2 risk factors Troponin: Troponin T 0.021 ng/mL (0.00-0.029) 06/08/21 13:49 - Critical Actions Critical Actions: 0-3 pts:0.9-1.7%risk of adverse cardiac event.Candidate for discharge Results - Labs CBC & Chem 7: 06/19/21 15:46 06/22/21 07:43 Labs: Laboratory Last Values WBC 4.5 K/mm3 (4.5-11.0) 06/19/21 15:46 RBC 4.68 M/mm3 (3.65-5.03) 06/19/21 15:46 Hgb 13.3 gm/dl (10.1-14.3) 06/19/21 15:46 Hct 39.9 % (30.3-42.9) 06/19/21 15:46 MCV 85 fl (79-97) 06/19/21 15:46 MCH 28 pg (28-32) 06/19/21 15:46 MCHC 33 % (30-34) 06/19/21 15:46 RDW 15.5 % (13.2-15.2) H 06/19/21 15:46 Plt Count 73 K/mm3 (140-440) L 06/19/21 15:46 Lymph % (Auto) 8.5 % (13.4-35.0) L 06/12/21 08:31 [place] % (Auto) 2.5 % (0.0-7.3) 06/12/21 08:31 Eos % (Auto) 0.8 % (0.0-4.3) 06/12/21 08:31 Baso % (Auto) 0.1 % (0.0-1.8) 06/12/21 08:31 Lymph # (Auto) 1.1 K/mm3 (1.2-5.4) L 06/12/21 08:31 [place] # (Auto) 0.3 K/mm3 (0.0-0.8) 06/12/21 08:31 Eos # (Auto) 0.1 K/mm3 (0.0-0.4) 06/12/21 08:31 Baso # (Auto) 0.0 K/mm3 (0.0-0.1) 06/12/21 08:31 Add Manual Diff Complete 06/15/21 07:38 Total Counted 100 06/15/21 07:38 Seg Neutrophils % Survey Project Manager 06/15/21 07:38 Seg Neuts % (Manual) 95.0 % (40.0-70.0) H 06/15/21 07:38 Band Neutrophils % 4.0 % 06/15/21 07:38 Lymphocytes % (Manual) 1.0 % (13.4-35.0) L 06/15/21 07:38 Monocytes % (Manual) 3.0 % (0.0-7.3) 06/14/21 04:42 Eosinophils % (Manual) 1.0 % (0.0-4.3) 06/13/21 07:42 Metamyelocytes % 2.0 % 06/10/21 23:14 Myelocytes % 2.0 % 06/14/21 04:42 Nucleated RBC % Not Reportable 06/15/21 07:38 Seg Neutrophils # 10.9 K/mm3 (1.8-7.7) H 06/12/21 08:31 Seg Neutrophils # Man 13.6 K/mm3 (1.8-7.7) H 06/15/21 07:38 Band Neutrophils # 0.6 K/mm3 06/15/21 07:38 Lymphocytes # (Manual) 0.1 K/mm3 (1.2-5.4) L 06/15/21 07:38 Abs React Lymphs (Man) 0.0 K/mm3 06/15/21 07:38 Monocytes # (Manual) 0.0 K/mm3 (0.0-0.8) 06/15/21 07:38 Eosinophils # (Manual) 0.0 K/mm3 (0.0-0.4) 06/15/21 07:38 Basophils # (Manual) 0.0 K/mm3 (0.0-0.1) 06/15/21 07:38 Metamyelocytes # 0.0 K/mm3 06/15/21 07:38 Myelocytes # 0.0 K/mm3 06/15/21 07:38 Promyelocytes # 0.0 K/mm3 06/15/21 07:38 Blast Cells # 0.0 K/mm3 06/15/21 07:38 WBC Morphology Not Reportable 06/15/21 07:38 Hypersegmented Neuts Not Reportable 06/15/21 07:38 Hyposegmented Neuts Not Reportable 06/15/21 07:38 Hypogranular Neuts Not Reportable 06/15/21 07:38 Smudge Cells Not Reportable 06/15/21 07:38 Toxic Granulation Not Reportable 06/15/21 07:38 Toxic Vacuolation Not Reportable 06/15/21 07:38 Dohle Bodies Not Reportable 06/15/21 07:38 Pelger-Huet Anomaly Not Reportable 06/15/21 07:38 Nba Rods Not Reportable 06/15/21 07:38 Platelet Estimate Consistent w auto 06/15/21 07:38 Clumped Platelets Not Reportable 06/15/21 07:38 Plt Clumps, EDTA Not Reportable 06/15/21 07:38 Large Platelets Not Reportable 06/15/21 07:38 Giant Platelets Not Reportable 06/15/21 07:38 Platelet Satelliting Not Reportable 06/15/21 07:38 Plt Morphology Comment Not Reportable 06/15/21 07:38 RBC Morphology Not Reportable 06/15/21 07:38 Dimorphic RBCs Not Reportable 06/15/21 07:38 Polychromasia Not Reportable 06/15/21 07:38 Hypochromasia Not Reportable 06/15/21 07:38 Poikilocytosis Not Reportable 06/15/21 07:38 Anisocytosis Not Reportable 06/15/21 07:38 Microcytosis Not Reportable 06/15/21 07:38 Macrocytosis Not Reportable 06/15/21 07:38 Spherocytes Not Reportable 06/15/21 07:38 Pappenheimer Bodies Not Reportable 06/15/21 07:38 Sickle Cells Not Reportable 06/15/21 07:38 Target Cells Not Reportable 06/15/21 07:38 Tear Drop Cells 1+ 06/15/21 07:38 Ovalocytes 1+ 06/15/21 07:38 Helmet Cells Not Reportable 06/15/21 07:38 [place] Bodies Not Reportable 06/15/21 07:38 Alvin Rings Not Reportable 06/15/21 07:38 [place] Cells Not Reportable 06/15/21 07:38 Bite Cells Not Reportable 06/15/21 07:38 Crenated Cell Not Reportable 06/15/21 07:38 Elliptocytes Not Reportable 06/15/21 07:38 Acanthocytes (Spur) Not Reportable 06/15/21 07:38 Rouleaux Not Reportable 06/15/21 07:38 Hemoglobin C Crystals Not Reportable 06/15/21 07:38 Schistocytes Not Reportable 06/15/21 07:38 Malaria parasites Not Reportable 06/15/21 07:38 Luis Bodies Not Reportable 06/15/21 07:38 Hem Pathologist Commnt No 06/15/21 07:38 D-Dimer 9804.08 ng/mlDDU (0-234) H 06/18/21 06:00 ABG pH 7.273 pH Units (7.350-7.450) L 06/22/21 15:15 POC ABG pCO2 41.8 mmHg (32.0-48.0) 06/22/21 12:10 ABG pCO2 49.1 mm Hg 06/22/21 15:15 POC ABG pO2 56.8 mmHg (83-108) L 06/22/21 12:10 ABG pO2 58.0 mm Hg (80.0-90.0) L 06/22/21 15:15 POC ABG HCO3 22.1 06/22/21 12:10 ABG HCO3 22.2 mmol/L (20.0-26.0) 06/22/21 15:15 ABG O2 Saturation 85.7 % (95.0-99.0) L 06/22/21 15:15 ABG O2 Content 15.9 (0.0-44) 06/22/21 15:15 POC ABG Base Excess -3.5 06/22/21 12:10 ABG Base Excess -4.9 mmol/L (-2.0-3.0) L 06/22/21 15:15 ABG Hemoglobin 13.5 gm/dl (12.0-16.0) 06/22/21 15:15 ABG Oxyhemoglobin 86.7 (94-98) L 06/22/21 12:10 ABG Carboxyhemoglobin 1.3 % (0.0-5.0) 06/22/21 15:15 ABG Methemoglobin 0.7 % (0.0-1.5) 06/22/21 15:15 ABG Sodium 140.1 mmol/L (136.0-145.0) 06/21/21 17:55 ABG Potassium 4.2 mmol/L (3.40-4.50) 06/21/21 17:55 ABG Chloride 105.0 mmol/L (98-107) 06/21/21 17:55 ABG Glucose 197 mg/dL (65-95) H 06/21/21 17:55 Oxyhemoglobin 84.1 % (95.0-99.0) L 06/22/21 15:15 Carboxyhemoglobin 1.2 (0.5-1.5) 06/22/21 12:10 FiO2 100 % 06/22/21 15:15 FiO2 % 21 06/22/21 12:10 Sodium 142 mmol/L (137-145) 06/22/21 07:43 Potassium 4.9 mmol/L (3.6-5.0) D 06/22/21 07:43 Chloride 104.1 mmol/L (98-107) 06/22/21 07:43 Carbon Dioxide 21 mmol/L (22-30) L 06/22/21 07:43 Anion Gap 22 mmol/L 06/22/21 07:43 BUN 55 mg/dL (7-17) H 06/22/21 07:43 Creatinine 2.8 mg/dL (0.6-1.2) H 06/22/21 07:43 Estimated GFR 21 ml/min 06/22/21 07:43 BUN/Creatinine Ratio 20 % 06/22/21 07:43 Glucose 219 mg/dL (65-100) H 06/22/21 07:43 POC Glucose 222 mg/dL (70-105) H 06/22/21 11:47 Hemoglobin A1c 9.5 % (4-6) H 06/07/21 19:11 Calcium 8.7 mg/dL (8.4-10.2) 06/22/21 07:43 Phosphorus 3.30 mg/dL (2.5-4.5) 06/14/21 04:42 Magnesium 2.40 mg/dL (1.7-2.3) H 06/14/21 04:42 Ferritin 904.2 ng/mL (10.0-200.0) H 06/18/21 06:00 Total Bilirubin 0.40 mg/dL (0.1-1.2) 06/17/21 09:35 AST 21 units/L (5-40) 06/17/21 09:35 ALT 33 units/L (7-56) 06/17/21 09:35 Alkaline Phosphatase 113 units/L (35-129) 06/17/21 09:35 Lactate Dehydrogenase 606 units/L (91-180) H 06/10/21 23:14 Troponin T 0.021 ng/mL (0.00-0.029) 06/08/21 13:49 C-Reactive Protein 1.90 mg/dL (0.00-1.30) H 06/11/21 10:58 Serum Total Protein 7.0 g/dL (6.1-8.1) 06/10/21 23:14 Total Protein 6.0 g/dL (6.3-8.2) L 06/17/21 09:35 Albumin 2.8 g/dL (3.9-5) L 06/17/21 09:35 Albumin/Globulin Ratio 0.9 % 06/17/21 09:35 Yuedi-8-Vhyyredag 0.5 g/dL (0.2-0.3) H 06/10/21 23:14 Zcmon-5-Raawgvxts 1.7 g/dL (0.5-0.9) H 06/10/21 23:14 Beta Globulins 0.6 g/dL (0.2-0.5) H 06/10/21 23:14 Gamma Globulins 1.3 g/dL (0.8-1.7) 06/10/21 23:14 Abnorm Protein Band 1 see below 06/10/21 23:14 PEP Interpretation see below H 06/10/21 23:14 Triglycerides 209 mg/dL (2-149) H 06/07/21 19:11 Cholesterol 165 mg/dL (50-199) 06/07/21 19:11 LDL Cholesterol Direct 79 mg/dL (50-130) 06/07/21 19:11 HDL Cholesterol 35 mg/dL (40-59) L 06/07/21 19:11 Cholesterol/HDL Ratio 4.71 % 06/07/21 19:11 Procalcitonin 0.91 ng/mL (<0.15) 06/07/21 19:11 Arterial Blood Glucose 197 mg/dL (65-95) H 06/21/21 17:55 Arterial Blood Ionized Calcium 4.6 mg/dL (4.6-5.3) 06/21/21 17:55 Coronavirus (PCR) Positive (Negative) A 06/08/21 08:30 Blood Type B POSITIVE 06/07/21 22:34 Antibody Screen Negative 06/07/21 22:34 Roland/IV: Voiding Method External Female Catheter Active Medications - Current Medications Current Medications: Generic Name Dose Route Start Last Admin Trade Name Freq PRN Reason Stop Dose Admin Acetaminophen 650 mg 06/07/21 21:41 Acetaminophen 325 Mg Tab PO Q4H PRN Pain MILD(1-3)/Fever >100.5/MARTÍNEZ Albuterol 2 puff 06/07/21 23:00 Albuterol 8.5 Gm Mdi Inhalation IH Q4HRT PRN Shortness Of Breath Lipase/Protease/Amylase 1 each 06/22/21 14:36 Lipase 10,500/Protease 25,000/Amylase 43,750 (Units) Dr Barahona FEEDTUBE PRN PRN For Clogged Feeding Tube Ascorbic Acid 500 mg 06/22/21 22:00 Ascorbic Acid 500 Mg Tab PO BID [facility] Atorvastatin Calcium 10 mg 06/08/21 10:00 06/22/21 15:25 Atorvastatin 10 Mg Tab PO Not Given DAILY [facility] Dextrose 50 ml 06/08/21 12:04 06/20/21 12:16 Dextrose 50% In Water (25gm) 50 Ml Syringe IV 50 ml Q30MIN PRN Administration Hypoglycemia Protocol Docusate Sodium 100 mg 06/07/21 21:33 Docusate Sodium 100 Mg Cap PO BID PRN Constipation Enoxaparin Sodium 160 mg 06/22/21 13:00 06/22/21 16:15 Enoxaparin 80 Mg/0.8 Ml Inj SUB-Q 160 mg Q24HR LEONOR Administration Famotidine 10 mg 06/22/21 22:00 Famotidine 20 Mg/2 Ml Inj IV BID [facility] Fentanyl 50 mcg 06/22/21 13:07 06/22/21 13:55 Fentanyl 100 Mcg/2 Ml Inj IV 50 mcg Q10MIN PRN Administration ANALGESIA Hydralazine HCl 25 mg 06/07/21 22:00 06/22/21 15:26 Hydralazine 25 Mg Tab PO Not Given Q8HR [facility] Hydromorphone HCl 0.5 mg 06/07/21 21:41 Hydromorphone 1 Mg/1 Ml Inj IV Q3H PRN Pain , Severe (7-10) Hydromorphone HCl 0.25 mg 06/07/21 22:33 Hydromorphone 1 Mg/1 Ml Inj IV Q4H PRN Pain, Moderate (4-6) Hydrophilic Ointment 1 applic 06/22/21 13:07 Lip Therapy Vaseline TP Q2HR PRN Dry Lips Fentanyl Citrate 2,000 mcg in 100 mls @ 8.2 mls/hr 06/22/21 14:00 06/22/21 16:34 Fentanyl Drip Premix IV 4 mcg/kg/hr TITR LEONOR 32.8 mls/hr Administration Protocol 1 MCG/KG/HR NORepinephrine/NS 8 MG-250 ML 8 mg in 250 mls @ 3.75 mls/hr 06/22/21 15:00 06/22/21 15:56 Norepinephrine/Ns 8 Mg-250 Ml (Double Conc) IV 16 mcg/min TITRATE LEONOR 30 mls/hr Titration Protocol 2 MCG/MIN Insulin Human Isoph/Insulin Regular 15 unit 06/22/21 10:53 Insulin Nph/Regular 70/30 Inj SUB-Q BIDDIAB [facility] Insulin Human Regular 0 units 06/22/21 18:00 Insulin Regular, Human 100 Units/1 Ml SUB-Q Q6HR [facility] Protocol Levothyroxine Sodium 137.5 mcg 06/23/21 06:00 Levothyroxine 100 Mcg Inj IV DAILY@0600 [facility] Methylprednisolone Sodium Succinate 100 mg 06/21/21 16:00 06/22/21 16:26 Methylprednisolone Sod Succinate 125 Mg/2 Ml Inj IV 100 mg Q8H LEONOR Administration Midodrine 10 mg 06/22/21 15:00 06/22/21 16:16 Midodrine 5 Mg Tab PO 10 mg Q8H LEONOR Administration Multi-Ingred Cream/Lotion/Oil/Oint 1 applic 06/22/21 13:07 Mineral Oil/Petrolatum, White Ophth Oint 3.5 Gm OU Q4HR PRN Dry Eye(s) Ondansetron HCl 4 mg 06/07/21 21:41 06/20/21 22:15 Ondansetron 4 Mg/2 Ml Inj IV 4 mg Q8H PRN Administration Nausea And Vomiting Oxycodone/Acetaminophen 1 tab 06/07/21 21:41 06/09/21 17:05 Oxycodone /Acetaminophen 5-325mg Tab PO 1 tab Q6H PRN Administration Pain, Moderate (4-6) Senna/Docusate Sodium 1 tab 06/22/21 22:00 Sennosides/Docusate Sodium 8.6/50 Mg Tab FEEDTUBE BID LEONOR Simple Syrup 15 ml 06/22/21 14:36 Simple Syrup 15 Ml FEEDTUBE PRN PRN Hypoglycemia Simple Syrup 30 ml 06/22/21 14:36 Simple Syrup 15 Ml FEEDTUBE PRN PRN Hypoglycemia Sodium Bicarbonate 650 mg 06/10/21 14:00 06/22/21 16:16 Sodium Bicarbonate 650 Mg Tab PO 650 mg TID LEONOR Administration Sodium Bicarbonate 325 mg 06/22/21 14:36 Sodium Bicarbonate 325 Mg Tab FEEDTUBE PRN PRN For Clogged Feeding Tube Sodium Chloride 10 ml 06/07/21 22:00 06/22/21 10:36 Sodium Chloride 0.9% 10 Ml Flush Syringe IV 10 ml BID LEONOR Administration Sodium Chloride 10 ml 06/07/21 21:41 Sodium Chloride 0.9% 10 Ml Flush Syringe IV PRN PRN LINE FLUSH Zinc Sulfate 220 mg 06/22/21 22:00 Zinc Sulfate 220 Mg Cap PO BID LEONOR Nutrition/Malnutrition Assess - Dietary Evaluation Nutrition/Malnutrition Findings: Nutrition Notes Start: 06/08/21 10:56 Freq: Status: Active Protocol: Document 06/22/21 13:56 RIKY (Rec: 06/22/21 14:35 RIKY [id number]) Nutrition Notes Need for Assessment generated from: MD Order Initial or Follow up Reassessment Current Diagnosis Acute Kidney Injury,Diabetes Other Pertinent Diagnosis Pneumonia/COVID-19, hypothyroidism. Current Diet Tube feeding (since D 06/22) Labs/Tests 06/22: CO2 21, BUN 55, Cr 2.8, Glu 219. Pertinent Medications 06/21: Reviewed. Height 5 ft 11 in Weight 164 kg [place] Body Weight (kg) 70.45 BMI 50.4 Intake Prior to Admission Excellent Weight change and time frame No significant changes reported. Stable. Weight Status Morbidly Obese Subjective/Other Information Pt Has been intubated. Percent of energy/protein needs met: Prescribed Tube feeding diet will provide 75-100% for energy/protein needs. (1,680 Kcal/ 84 g). Burn Absent Trauma Absent GI Symptoms None Difficulty In Swallowing,Chewing Food Allergy Yes Skin Integrity/Comment N/A Current % PO Negligible Minimum of two criteria No physical signs of malnutrition #1 Nutrition Diagnosis Inadequate energy intake Comments: Transient poor acceptance of food and neglible PO intake as reported in Nurse notes Etiology COVID=19/pneumonia As Evidenced by Signs and Symptoms Fair tolerance to food, intake of meals between 0-25%. Diagnosis Progress(for reassessment Worsened documentation) Is patient on ventilator? No Is Patient Ambulatory and/or Out of Bed No REE-([facility]-confined to bed) 2771.148 Kcal/Kg value to use for calculation 13 Approximate Energy Requirements Using 2132 kcal/Kg Calculation Used for Recommendations Kcal/kg Additional Notes Protein: 1.0-1.2 g/Kg/day; 70- 84 g/day; 280-336 Kcal/day ( from IBW). Fluids: 1.0 ml/Kcal, or as per MD. Nutrition Intervention Change Diet Order: Initiate Tube Feeding: Glucerna 1.2 (unflavored) Nutrition Support: Glucerna 1.2: 1,680 ml/24 hrs. Flush; 165ml every 4 hrs. ( 990ml/day) or as per MD. Kcal 1,680 Protein (gm) 84 Carbohydrates (gm) 160 Fat (gm) 84 Fluid (mL) 1,127 Fiber (gm) 23 % RDI: 79 Goal #1 Maintain body weight within +/ -3% of actual BWt during LOS. Goal #2 Support energy/protein needs ( 2,132 Kcal/ 70-84 g) during LOS. Goal #3 Reach and maintain acceptable chemistry lab values during LOS. Follow-Up By: 06/28/21 Additional Comments Continue monitoring tolerance to tube feeding, and BM. - Attestation Statement I have reviewed and agreed w/ Malnutrition eval & tx plan: Yes
[2021-06-22] MEDS: FAMOTIDINE 20 MG/2 ML INJ IV SCH (21:09)
[2021-06-22] MEDS: SENNOSIDES/DOCUSATE SODIUM 8.6/50 MG TAB FEEDTUBE SCH (21:09)
[2021-06-22] MEDS: ZINC SULFATE 220 MG CAP PO SCH (21:11)
[2021-06-22] MEDS: ASCORBIC ACID 500 MG TAB PO SCH (21:11)
[2021-06-22 21:25] LABS: ABG HCO3 22.5 mmol/L (20.0-26.0); ABG Methemoglobin 0.7 % (0.0-1.5); ABG Oxygen Saturation 87.3 % (95.0-99.0); ABG PCO2 56.5 mm Hg; ABG PH 7.217 pH Units (7.350-7.450); ABG PO2 61.7 mm Hg (80.0-90.0)
--- NOTE | 2021-06-22 22:20 | XRay Report ---
XR chest 1V ap INDICATION / CLINICAL INFORMATION: desat O2. COMPARISON: Radiograph from earlier same day. FINDINGS: SUPPORT DEVICES: Unchanged. HEART /PULMONARY VASCULATURE: Unchanged. LUNGS / PLEURA: Worsening severe pulmonary airspace disease. No sizable pleural effusion. No pneumoth orax. IMPRESSION: 1. Worsening airspace disease. Signer Name: Joon Ortiz MD Signed: 06/22/2021 10:15 PM Workstation Name: [id number]
[2021-06-23] MEDS: INSULIN REGULAR, HUMAN 100 UNITS/1 ML SUB-Q SCH ×4 (00:43→18:15)
[2021-06-23] MEDS: fentaNYL DRIP Premix 2,000 MCG/100 ML BAG IV SCH ×8 (02:41→22:32)
[2021-06-23] MEDS: NORepinephrine/NS 8 MG-250 ML 8 MG/250 ML INFUS..BTL IV SCH ×5 (02:46→22:07)
[2021-06-23] MEDS ORDERED: METOPROLOL TARTRATE 5 MG/5 ML INJ IV PRN (05:30)
[2021-06-23] MEDS: hydrALAZINE 25 MG TAB PO SCH ×2 (05:31→14:18)
[2021-06-23] MEDS: LEVOTHYROXINE 100 MCG INJ IV SCH (05:34)
[2021-06-23 05:41] LABS: Hematocrit 44.5 % (30.3-42.9); Mean Corpuscular HGB Conc 32 % (30-34); Mean Corpuscular Volume 88 fl (79-97); Red Blood Count 5.04 M/mm3 (3.65-5.03); Red Cell Distribution Width 16.6 % (13.2-15.2)
[2021-06-23 05:48] LABS: Platelet Count 61 K/mm3 (140-440)
[2021-06-23 05:51] LABS: C-Reactive Protein 4.4 mg/dL (0.00-1.30); Calcium 7.9 mg/dL (8.4-10.2)
[2021-06-23] MEDS: MIDODRINE 5 MG TAB PO SCH ×3 (06:00→22:40)
[2021-06-23] MEDS ORDERED: INSULIN REGULAR, HUMAN 100 UNITS/1 ML IV ONE (07:26)
[2021-06-23] MEDS ORDERED: CALCIUM GLUCONATE 2,000 MG in SODIUM CHLORIDE 0.9% 100 ML IV ONE (07:26)
[2021-06-23] MEDS ORDERED: SODIUM POLYSTYRENE 15 GM/60 ML ORAL LIQD PO ONE (07:26)
[2021-06-23] MEDS ORDERED: DEXTROSE 50% IN WATER (25GM) 50 ML SYRINGE IV ONE (07:27)
[2021-06-23] MEDS: CEFEPIME/NS 2 GM/100 ML 2 GM/100 ML BAG IV SCH (08:54)
[2021-06-23] MEDS: INSULIN NPH/REGULAR 70/30 INJ SUB-Q SCH ×2 (08:54→21:51)
[2021-06-23] MEDS: SODIUM BICARBONATE 650 MG TAB PO SCH ×2 (08:55→14:17)
[2021-06-23] MEDS: methylPREDNISolone Sod Succinate 125 MG/2 ML INJ IV SCH ×2 (08:55→17:18)
--- NOTE | 2021-06-23 08:57 | Progress Note ---
Assessment and Plan Assessment and Plan COVID-19 breakthrough infection COVID-19 pneumonia Acute kidney injury possibly 2/2 prerenal/ATN, hypotension on underlying CKD Acute hypoxic respiratory failure Insulin-dependent type 2 diabetes- uncontrolled Elevated troponin Hypertension-controlled Hypothyroidism Protein calorie malnutrition Hypernatremia Plan Renal function reviewed, SCr level was 4.6 today, yesterday's SCr level was 2.8 S/p medical management IV insulin/D50, calcium gluconate, and kayexalate for hyperkalemia Repeat BMP at 1300 If renal function continues to worsen, pt may require initiation of HD this hospitalization On levophed drip Renal US was negative for hydronephrosis Serum Na level stable today Renally dose medications Strict I&O's daily Intake= 771 ml Output= 440 ml (Net= 331 ml) Renal plan reviewed by Dr Schultz Subjective Date of service: 06/23/21 Principal diagnosis: ARDS; Pneumonia; COVID-19 virus infection; TREMAINE; DM II; Morbid obesity Interval history: Pt on isolation for covid-19, reviewed medical chart, labs, and notes. Hospita list [facility] states pt may have had a seizure today Objective - Vital Signs Vital signs: Vital Signs - 12hr 06/22/21 06/22/21 06/22/21 21:01 21:15 21:30 Temperature Pulse Rate 140 H 142 H 130 H Respiratory 19 24 28 H Rate Blood Pressure 118/55 118/55 98/49 O2 Sat by Pulse 85 84 85 Oximetry 06/22/21 06/22/21 06/22/21 21:45 22:00 22:15 Temperature Pulse Rate 138 H 132 H 136 H Respiratory 32 H 16 15 Rate Blood Pressure 98/49 98/51 98/51 O2 Sat by Pulse 82 L 83 L Oximetry 06/22/21 06/22/21 06/22/21 22:30 22:45 23:00 Temperature Pulse Rate 129 H 139 H 132 H Respiratory 15 18 20 Rate Blood Pressure 101/57 101/57 109/57 O2 Sat by Pulse 85 83 L Oximetry 06/22/21 06/22/21 06/22/21 23:07 23:15 23:31 Temperature Pulse Rate 132 H 142 H 135 H Respiratory 30 H 26 H 16 Rate Blood Pressure 109/57 109/57 88/63 O2 Sat by Pulse 83 L 83 L 83 L Oximetry 06/22/21 06/23/2106/23/21 23:45 00:00 00:01 Temperature 100.4 F H Pulse Rate 125 H 143 H Respiratory 14 13 Rate Blood Pressure 88/63 88/64 O2 Sat by Pulse 84 86 100 Oximetry 06/23/21 06/23/21 06/23/21 00:15 00:16 00:31 Temperature Pulse Rate 146 H 142 H 131 H Respiratory 13 30 H Rate Blood Pressure 88/64 104/41 O2 Sat by Pulse 87 88 88 Oximetry 06/23/21 06/23/21 06/23/21 00:45 01:01 01:15 Temperature Pulse Rate 133 H 142 H 144 H Respiratory 30 H 30 H 30 H Rate Blood Pressure 104/41 118/50 118/50 O2 Sat by Pulse 87 87 86 Oximetry 06/23/21 06/23/21 06/23/21 01:31 01:45 02:01 Temperature Pulse Rate 142 H 127 H 136 H Respiratory 30 H 30 H 30 H Rate Blood Pressure 131/41 131/41 112/26 O2 Sat by Pulse 86 86 Oximetry 06/23/21 06/23/21 06/23/21 02:15 02:31 02:45 Temperature Pulse Rate 136 H 143 H 142 H Respiratory 30 H 30 H 29 H Rate Blood Pressure 112/26 114/28 114/28 O2 Sat by Pulse 87 89 86 Oximetry 06/23/21 06/23/21 06/23/21 03:01 03:15 03:30 Temperature Pulse Rate 140 H 141 H 124 H Respiratory 29 H 29 H 30 H Rate Blood Pressure 116/53 114/28 106/59 O2 Sat by Pulse 87 86 93 Oximetry 06/23/21 06/23/21 06/23/21 03:45 04:00 04:15 Temperature 100.8 F H Pulse Rate 124 H 134 H 123 H Respiratory 30 H 30 H 29 H Rate Blood Pressure 116/53 118/49 118/49 O2 Sat by Pulse 87 87 88 Oximetry 06/23/21 06/23/21 06/23/21 04:31 04:45 04:56 Temperature Pulse Rate 142 H 138 H 134 H Respiratory 30 H 30 H Rate Blood Pressure 104/53 104/53 O2 Sat by Pulse 88 89 89 Oximetry 06/23/21 06/23/21 06/23/21 05:01 05:15 05:30 Temperature Pulse Rate 137 H 135 H 138 H Respiratory 31 H 30 H 30 H Rate Blood Pressure 108/48 108/48 103/55 O2 Sat by Pulse 91 89 88 Oximetry 06/23/21 06/23/21 06/23/21 05:37 05:45 06:00 Temperature Pulse Rate 145 H 134 H 120 H Respiratory 30 H 30 H Rate Blood Pressure 103/55 103/55 114/45 O2 Sat by Pulse 89 89 Oximetry 06/23/21 06/23/21 06/23/21 06:15 06:30 06:45 Temperature Pulse Rate 123 H 130 H 131 H Respiratory 30 H 30 H 30 H Rate Blood Pressure 96/38 97/61 112/61 O2 Sat by Pulse 90 88 89 Oximetry 06/23/21 07:55 Temperature 101.4 F H Pulse Rate Respiratory Rate Blood Pressure O2 Sat by Pulse Oximetry - Lab 06/23/21 04:42 06/23/21 04:42 Most recent lab results ABG pH 7.217 pH Units (7.350-7.450) L 06/22/21 21:22 ABG pCO2 56.5 mm Hg 06/22/21 21:22 ABG pO2 61.7 mm Hg (80.0-90.0) L 06/22/21 21:22 ABG HCO3 22.5 mmol/L (20.0-26.0) 06/22/21 21:22 ABG O2 Saturation 87.3 % (95.0-99.0) L 06/22/21 21:22 Calcium 7.9 mg/dL (8.4-10.2) L 06/23/21 04:42 Calcium 8.0 mg/dL (8.4-10.2) L 06/23/21 04:42 Phosphorus 8.30 mg/dL (2.5-4.5) H 06/23/21 04:42 Magnesium 2.30 mg/dL (1.7-2.3) 06/23/21 04:42 Medications & Allergies - Medications Allergies/Adverse Reactions: Allergies latex Allergy (Verified 03/19/19 17:03) Unknown shellfish derived Allergy (Verified 03/19/19 17:03) Anaphylaxis strawberry Allergy (Verified 03/19/19 17:03) Anaphylaxis tomato Allergy (Verified 03/19/19 17:03) Anaphylaxis nuts Allergy (Uncoded 03/19/19 17:03) Anaphylaxis Home Medications: Home Medications Medication Instructions Recorded Confirmed Last Taken Type Albuterol Sulfate [Ventolin HFA] 2 puff IH Q4H PRN 01/29/14 06/11/21 02/01/15 History Levothyroxine (Nf) [Synthroid (Nf)] 275 mcg PO QAM 01/29/14 06/11/21 02/01/15 History Fluticasone/Salmeterol [Advair 1 each IH PRN PRN 01/26/15 06/11/21 02/02/15 10:00 History Diskus 250-50 mcg] Apixaban [Eliquis starter pack] 5 mg PO BID 09/13/19 06/11/21 Unknown History Insulin Aspart Prot/Insuln Asp 45 unit SUB-Q QAM 09/13/19 06/11/21 Unknown History [Novolog Mix 70-30 Flexpen] Insulin Glargine,Hum.rec.anlog 25 unit SQ HS 09/13/19 06/11/21 Unknown History [Basaglar Kwikpen U-100] Lovastatin [Altoprev] 20 mg PO DAILY 09/13/19 06/11/21 Unknown History Docusate Sodium [Colace CAP] 100 mg PO BID PRN #30 capsule 09/17/19 06/11/21 Unknown Rx Loratadine/Pseudoephedrine 1 each PO Q24HR #10 tablet 09/17/19 06/11/21 Unknown Rx [Claritin-D 24HR] Ondansetron [Zofran Odt] 4 mg PO Q8HR #20 tab.rapdis 09/17/19 06/11/21 Unknown Rx carvediloL [Coreg] 3.125 mg PO BID #60 tablet 09/17/19 06/11/21 Unknown Rx hydrALAZINE [Apresoline TAB] 25 mg PO Q8HR #90 tablet 09/17/19 06/11/21 Unknown Rx Active Medications: Generic Name Dose Route Start Last Admin Trade Name Freq PRN Reason Stop Dose Admin Acetaminophen 650 mg 06/07/21 21:41 Acetaminophen 325 Mg Tab PO Q4H PRN Pain MILD(1-3)/Fever >100.5/MARTÍNEZ Albuterol 2 mg 06/23/21 09:00 Albuterol 2.5 Mg/3 Ml Nebu IH Q4HRT PRN Shortness Of Breath Lipase/Protease/Amylase 1 each 06/22/21 14:36 Lipase 10,500/Protease 25,000/Amylase 43,750 (Units) Dr Jun FEEDTUBE PRN PRN For Clogged Feeding Tube Ascorbic Acid 500 mg 06/22/21 22:00 06/22/21 21:11 Ascorbic Acid 500 Mg Tab PO 500 mg BID LEONOR Administration Atorvastatin Calcium 10 mg 06/08/21 10:00 06/22/21 15:25 Atorvastatin 10 Mg Tab PO Not Given DAILY LEONOR Dextrose 50 ml 06/08/21 12:04 06/20/21 12:16 Dextrose 50% In Water (25gm) 50 Ml Syringe IV 50 ml Q30MIN PRN Administration Hypoglycemia Protocol Docusate Sodium 100 mg 06/23/21 09:00 Docusate Sodium 100 Mg/10 Ml Oral Liqd PO BID PRN Constipation Enoxaparin Sodium 160 mg 06/22/21 13:00 06/22/21 16:15 Enoxaparin 80 Mg/0.8 Ml Inj SUB-Q 160 mg Q24HR LEONRO Administration Famotidine 10 mg 06/22/21 22:00 06/22/21 21:09 Famotidine 20 Mg/2 Ml Inj IV 10 mg BID ELONOR Administration Fentanyl 50 mcg 06/22/21 13:07 06/22/21 21:09 Fentanyl 100 Mcg/2 Ml Inj IV 50 mcg Q10MIN PRN Administration ANALGESIA Hydralazine HCl 25 mg 06/07/21 22:00 06/23/21 05:31 Hydralazine 25 Mg Tab PO Not Given Q8HR LEONOR Hydrophilic Ointment 1 applic 06/22/21 13:07 Lip Therapy Vaseline TP Q2HR PRN Dry Lips Fentanyl Citrate 2,000 mcg in 100 mls @ 8.2 mls/hr 06/22/21 14:00 06/23/21 05:45 Fentanyl Drip Premix IV 4 mcg/kg/hr TITR LEONOR 32.8 mls/hr Administration Protocol 1 MCG/KG/HR NORepinephrine/NS 8 MG-250 ML 8 mg in 250 mls @ 3.75 mls/hr 06/22/21 15:00 06/23/21 02:46 Norepinephrine/Ns 8 Mg-250 Ml (Double Conc) IV 20 mcg/min TITRATE LEONOR 37.5 mls/hr Administration Protocol 2 MCG/MIN Vancomycin HCl 1,500 mg/ 530 mls @ 333 mls/hr 06/23/21 09:00 Sodium Chloride IV 06/23/21 13:00 ONCE@0900 [facility] Protocol Cefepime HCl 2 gm in 100 mls @ 200 mls/hr 06/23/21 08:00 Cefepime/Ns 2 Gm/100 Ml IV Q24H [facility] Protocol Vasopressin 20 unit/ Sodium 101 mls @ 9.09 mls/hr 06/23/21 09:00 Chloride IV TITR [facility] Protocol 0.03 UNITS/MIN Insulin Human Isoph/Insulin Regular 15 unit 06/22/21 10:53 06/22/21 17:39 Insulin Nph/Regular 70/30 Inj SUB-Q 15 unit BIDDIAB [facility] Administration Insulin Human Regular 0 units 06/22/21 18:00 06/23/21 05:44 Insulin Regular, Human 100 Units/1 Ml SUB-Q 4 units Q6HR [facility] Administration Protocol Levothyroxine Sodium 137.5 mcg 06/23/21 06:00 06/23/21 05:34 Levothyroxine 100 Mcg Inj IV 137.5 mcg DAILY@0600 [facility] Administration Methylprednisolone Sodium Succinate 100 mg 06/21/21 16:00 06/22/21 23:53 Methylprednisolone Sod Succinate 125 Mg/2 Ml Inj IV 100 mg Q8H [facility] Administration Metoprolol Tartrate 5 mg 06/23/21 05:30 06/23/21 05:37 Metoprolol Tartrate 5 Mg/5 Ml Inj IV 5 mg Q6H PRN Administration HR > 100 Midodrine 10 mg 06/22/21 15:00 06/23/21 06:00 Midodrine 5 Mg Tab PO 10 mg Q8H [facility] Administration Multi-Ingred Cream/Lotion/Oil/Oint 1 applic 06/22/21 13:07 Mineral Oil/Petrolatum, White Ophth Oint 3.5 Gm OU Q4HR PRN Dry Eye(s) Ondansetron HCl 4 mg 06/07/21 21:41 06/20/21 22:15 Ondansetron 4 Mg/2 Ml Inj IV 4 mg Q8H PRN Administration Nausea And Vomiting Senna/Docusate Sodium 1 tab 06/22/21 22:00 06/22/21 21:09 Sennosides/Docusate Sodium 8.6/50 Mg Tab FEEDTUBE 1 tab BID LEONOR Administration Simple Syrup 15 ml 06/22/21 14:36 Simple Syrup 15 Ml FEEDTUBE PRN PRN Hypoglycemia Simple Syrup 30 ml 06/22/21 14:36 Simple Syrup 15 Ml FEEDTUBE PRN PRN Hypoglycemia Sodium Bicarbonate 650 mg 06/10/21 14:00 06/22/21 21:14 Sodium Bicarbonate 650 Mg Tab PO 650 mg TID LEONOR Administration Sodium Bicarbonate 325 mg 06/22/21 14:36 Sodium Bicarbonate 325 Mg Tab FEEDTUBE PRN PRN For Clogged Feeding Tube Sodium Chloride 10 ml 06/07/21 22:00 06/22/21 21:11 Sodium Chloride 0.9% 10 Ml Flush Syringe IV 10 ml BID LEONOR Administration Sodium Chloride 10 ml 06/07/21 21:41 Sodium Chloride 0.9% 10 Ml Flush Syringe IV PRN PRN LINE FLUSH Zinc Sulfate 220 mg 06/22/21 22:00 06/22/21 21:11 Zinc Sulfate 220 Mg Cap PO 220 mg BID LEONOR Administration
[2021-06-23] MEDS ORDERED: VANCOMYCIN 1,500 MG in SODIUM CHLORIDE 0.9% 500 ML 500 ML IV SCH (09:00)
[2021-06-23] MEDS ORDERED: ALBUTEROL 2.5 MG/3 ML NEBU IH PRN (09:00)
[2021-06-23] MEDS ORDERED: DOCUSATE SODIUM 100 MG/10 ML ORAL LIQD PO PRN (09:00)
[2021-06-23] MEDS ORDERED: LORazepam 2 MG/ML VIAL ONE (09:17)
[2021-06-23] MEDS ORDERED: LORazepam 2 MG/ML VIAL IV ONE (09:30)
[2021-06-23] MEDS ORDERED: SODIUM CHLORIDE 0.9% 1000 ML 1,000 ML ONE (09:47)
[2021-06-23] MEDS ORDERED: SODIUM CHLORIDE 0.9% 1000 ML 1,000 ML IV ONE (09:48)
--- NOTE | 2021-06-23 10:16 | Progress Note ---
Assessment and Plan Acute hypoxemic respiratory failure (ARDS) Coronavirus infection Pneumonia due to COVID-19 virus Acute kidney injury superimposed on CKD Hypertension Diabetes mellitus type 2, insulin dependent Hypothyroidism Morbid obesity - prn Ativan for Seizure activity - stop empiric anticoagulation re: ? [employer] bleed - get lower extremity dopplers +/- IVC Filter - Keppra 500 mg IV q12h - EEG - neurology evaluation - wean vaspressors for target MAP > 65 mmHg - hyperkalemia treated - tentatively will need dialysis and Vascath placement - continue care as below otherwise; - continue daily SAT and SBT assessment as tolerated - continue to wean supplemental oxygen for target O2 sat's > 90% acutely - VAP bundle addressed - continue lung protective strategies - continue bronchodilators with pulmonary hygiene per RT - wean per pulmonary driven protocols otherwise - azotemia per nephrology recommendations - avoid nephrotoxins, renally dose all medications - continue to avoid benzodiazepine's, reduce the possibility of delirium - anti-infective's per ID rec's - prn analgesia per CPOT score - Maintenance of sleep-wake cycle, avoid delirium - enteral nutritional support at goal rate as tolerated - G.I. & VTE prophylaxis - PT/OT/ROM exercises - mobility protocols for pressure ulcer prophylaxis - Monitor hemodynamics closely - continue other care per attending / other consultants - discharge planning ongoing concurrently COVID SPECIFIC INTERVENTIONS - Remdesivir as per ID/Pulmonary developed protocols (not a candidate) - continue systemic steroids for severe COVID-19 infection empirically (will taper to 60 mg IV q8h) - follow repeat COVID tests results - zinc and vitamin C supplementation - Monitor inflammatory markers per facility protocol - ferritin, Ddimer, CRP - therapeutic anticoagulation per system Protocol based on d-dimer and clinical considerations - Continue contact and airborne isolation .... Re-evaluate in am & prn CONDITION: CRITICAL PROGNOSIS: GUARDED CODE STATUS: FULL CODE The high probability of a clinically significant, sudden or life-threatening deterioration of the [respiratory, cardiovascular, renal & neurologic] system(s) required my full and direct attention, intervention and personal management. The aggregate critical care time was [35] minutes without overlap. Time includes spent on; [x] Data Review and interpretation [x] Patient assessment and monitoring of vital signs [x] Documentation [x] Medication orders and management Subjective Date of service: 06/23/21 Principal diagnosis: ARDS; Pneumonia; COVID-19 virus infection; TREMAINE; DM II; Mor bid obesity Interval history: Patient is seen today for: Acute hypoxemic respiratory failure (ARDS); Pneumonia; COVID-19 virus infection; TREMAINE on CKD; DM II; Morbid obesity Seen and examined at bedside; 24hour events reviewed; nursing and respiratory care staff consulted; no adverse overnight events reported to me; resting in bed; s/p witnessed seizure; remains hypotensive / septic; remains on 100% FiO2; no gross bleeding; no emesis or overt aspiration; azotemia is woresening also Objective Vital Signs - 12hr 06/22/21 06/22/21 06/22/21 22:15 22:30 22:45 Temperature Pulse Rate 136 H 129 H 139 H Respiratory 15 15 18 Rate Blood Pressure 98/51 101/57 101/57 O2 Sat by Pulse 83 L 85 83 L Oximetry 06/22/21 06/22/21 06/22/21 23:00 23:07 23:15 Temperature Pulse Rate 132 H 132 H 142 H Respiratory 20 30 H 26 H Rate Blood Pressure 109/57 109/57 109/57 O2 Sat by Pulse 83 L 83 L Oximetry 06/22/21 06/22/21 06/23/21 23:31 23:45 00:00 Temperature 100.4 F H Pulse Rate 135 H 125 H Respiratory 16 14 Rate Blood Pressure 88/63 88/63 O2 Sat by Pulse 83 L 84 86 Oximetry 06/23/21 06/23/21 06/23/21 00:01 00:15 00:16 Temperature Pulse Rate 143 H 146 H 142 H Respiratory 13 13 Rate Blood Pressure 88/64 88/64 O2 Sat by Pulse 100 87 88 Oximetry 06/23/21 06/23/21 06/23/21 00:31 00:45 01:01 Temperature Pulse Rate 131 H 133 H 142 H Respiratory 30 H 30 H 30 H Rate Blood Pressure 104/41 104/41 118/50 O2 Sat by Pulse 88 87 87 Oximetry 06/23/21 06/23/21 06/23/21 01:15 01:31 01:45 Temperature Pulse Rate 144 H 142 H 127 H Respiratory 30 H 30 H 30 H Rate Blood Pressure 118/50 131/41 131/41 O2 Sat by Pulse 86 86 Oximetry 06/23/21 06/23/21 06/23/21 02:01 02:15 02:31 Temperature Pulse Rate 136 H 136 H 143 H Respiratory 30 H 30 H 30 H Rate Blood Pressure 112/26 112/26 114/28 O2 Sat by Pulse 86 87 89 Oximetry 06/23/21 06/23/21 06/23/21 02:45 03:01 03:15 Temperature Pulse Rate 142 H 140 H 141 H Respiratory 29 H 29 H 29 H Rate Blood Pressure 114/28 116/53 114/28 O2 Sat by Pulse 86 87 86 Oximetry 06/23/21 06/23/21 06/23/21 03:30 03:45 04:00 Temperature 100.8 F H Pulse Rate 124 H 124 H 134 H Respiratory 30 H 30 H 30 H Rate Blood Pressure 106/59 116/53 118/49 O2 Sat by Pulse 93 87 87 Oximetry 06/23/21 06/23/21 06/23/21 04:15 04:31 04:45 Temperature Pulse Rate 123 H 142 H 138 H Respiratory 29 H 30 H 30 H Rate Blood Pressure 118/49 104/53 104/53 O2 Sat by Pulse 88 88 89 Oximetry 06/23/21 06/23/21 06/23/21 04:56 05:01 05:15 Temperature Pulse Rate 134 H 137 H 135 H Respiratory 31 H 30 H Rate Blood Pressure 108/48 108/48 O2 Sat by Pulse 89 91 89 Oximetry 06/23/21 06/23/21 06/23/21 05:30 05:37 05:45 Temperature Pulse Rate 138 H 145 H 134 H Respiratory 30 H 30 H Rate Blood Pressure 103/55 103/55 103/55 O2 Sat by Pulse 88 89 Oximetry 06/23/21 06/23/21 06/23/21 06:00 06:15 06:30 Temperature Pulse Rate 120 H 123 H 130 H Respiratory 30 H 30 H 30 H Rate Blood Pressure 114/45 96/38 97/61 O2 Sat by Pulse 89 90 88 Oximetry 06/23/21 06/23/21 06/23/21 06:45 07:55 09:02 Temperature 101.4 F H Pulse Rate 131 H 132 H Respiratory 30 H Rate Blood Pressure 112/61 108/56 O2 Sat by Pulse 89 94 Oximetry Constitutional: appears uncomfortable, other (Morbidly Obese female with mildly increased work of breathing on MVS) Eyes: non-icteric ENT: oropharynx moist Neck: supple, no lymphadenopathy Effort: very labored Ascultation: Bilateral: diminished breath sounds, rhonchi Percussion: Bilateral: not dull Cardiovascular: regular rate and rhythm Gastrointestinal: normoactive bowel sounds, soft, non-tender, non-distended (protuberant) Integumentary: normal Extremities: no cyanosis, no edema, pulses normal, no ischemia or petechiae Neurologic: non-focal exam (grossly), pupils equal and round, unable to assess Psychiatric: other (unable to assess re: AMS) CBC and BMP: 06/24/21 04:55 06/24/21 04:55 ABG, PT/INR, D-dimer: ABG ABG pH 7.217 pH Units (7.350-7.450) L 06/22/21 21: POC ABG pCO2 41.8 mmHg (32.0-48.0) 06/22/21 12:10 ABG pCO2 56.5 mm Hg 06/22/21 21:22 POC ABG pO2 56.8 mmHg (83-108) L 06/22/21 12:10 ABG pO2 61.7 mm Hg (80.0-90.0) L 06/22/21:22 POC ABG HCO3 22.1 06/22/21 12:10 ABG O2 Saturation 87.3 % (95.0-99.0) L 06/22/21 21:22 PT/INR, D-dimer D-Dimer 6308.27 ng/mlDDU (0-234) H 06/23/21 04:42 Abnormal lab findings: Abnormal Labs 06/07/21 06/07/21 06/07/21 19:11 19:11 19:11 WBC 11.5 H RBC Hgb Hct RDW Plt Count Lymph % (Auto) 6.5 L Lymph # (Auto) 0.8 L Seg Neutrophils % 89.9 H Seg Neuts % (Manual) Lymphocytes % (Manual) Nucleated RBC % Seg Neutrophils # 10.4 H Seg Neutrophils # Man Lymphocytes # (Manual) D-Dimer 5334.05 H ABG pH POC ABG pCO2 POC ABG pO2 ABG pO2 ABG O2 Saturation ABG Base Excess ABG Oxyhemoglobin ABG Chloride ABG Glucose Oxyhemoglobin Carboxyhemoglobin Sodium Potassium Chloride Carbon Dioxide BUN 67 H Creatinine 4.8 H Glucose 244 H POC Glucose Hemoglobin A1c Calcium Phosphorus Magnesium Ferritin Lactate Dehydrogenase 796 H Troponin T 0.043 H C-Reactive Protein 19.60 H Total Protein 8.4 H Albumin 3.1 L Cmzvw-7-Yrjksatvp Zwzsz-4-Zpssajolu Beta Globulins PEP Interpretation Triglycerides 209 H HDL Cholesterol 35 L Arterial Blood Glucose Arterial Blood Ionized Calcium Coronavirus (PCR) 06/07/21 06/07/21 06/08/21 19:11 19:11 03:04 WBC RBC Hgb Hct RDW Plt Count Lymph % (Auto) Lymph # (Auto) Seg Neutrophils % Seg Neuts % (Manual) Lymphocytes % (Manual) Nucleated RBC % Seg Neutrophils # Seg Neutrophils # Man Lymphocytes # (Manual) D-Dimer ABG pH POC ABG pCO2 POC ABG pO2 ABG pO2 ABG O2 Saturation ABG Base Excess ABG Oxyhemoglobin ABG Chloride ABG Glucose Oxyhemoglobin Carboxyhemoglobin Sodium Potassium Chloride Carbon Dioxide BUN Creatinine Glucose POC Glucose Hemoglobin A1c 9.5 H Calcium Phosphorus Magnesium Ferritin 1230.0 H Lactate Dehydrogenase Troponin T 0.031 H D C-Reactive Protein Total Protein Albumin Bcagg-5-Xiqzuvsuh Nzymz-3-Ruvhrnwdo Beta Globulins PEP Interpretation Triglycerides HDL Cholesterol Arterial Blood Glucose Arterial Blood Ionized Calcium Coronavirus (PCR) 06/08/21 06/08/21 06/08/21 03:44 03:44 08:21 WBC 12.9 H RBC Hgb Hct RDW Plt Count Lymph % (Auto) Lymph # (Auto) Seg Neutrophils % Seg Neuts % (Manual) 95.0 H Lymphocytes % (Manual) 3.0 L Nucleated RBC % Seg Neutrophils # Seg Neutrophils # Man 12.3 H Lymphocytes # (Manual) 0.4 L D-Dimer ABG pH POC ABG pCO2 POC ABG pO2 ABG pO2 ABG O2 Saturation ABG Base Excess ABG Oxyhemoglobin ABG Chloride ABG Glucose Oxyhemoglobin Carboxyhemoglobin Sodium Potassium Chloride Carbon Dioxide 20 L D BUN 68 H Creatinine 4.7 H Glucose 218 H POC Glucose 273 H Hemoglobin A1c Calcium Phosphorus Magnesium Ferritin Lactate Dehydrogenase Troponin T C-Reactive Protein Total Protein Albumin 3.4 L Cnrkz-9-Gpnowitnx Yivbg-5-Csewuzima Beta Globulins PEP Interpretation Triglycerides HDL Cholesterol Arterial Blood Glucose Arterial Blood Ionized Calcium Coronavirus (PCR) 06/08/21 06/08/21 06/08/21 08:30 11:00 17:29 WBC RBC Hgb Hct RDW Plt Count Lymph % (Auto) Lymph # (Auto) Seg Neutrophils % Seg Neuts % (Manual) Lymphocytes % (Manual) Nucleated RBC % Seg Neutrophils # Seg Neutrophils # Man Lymphocytes # (Manual) D-Dimer ABG pH POC ABG pCO2 POC ABG pO2 ABG pO2 ABG O2 Saturation ABG Base Excess ABG Oxyhemoglobin ABG Chloride ABG Glucose Oxyhemoglobin Carboxyhemoglobin Sodium Potassium Chloride Carbon Dioxide BUN Creatinine Glucose POC Glucose 239 H 220 H Hemoglobin A1c Calcium Phosphorus Magnesium Ferritin Lactate Dehydrogenase Troponin T C-Reactive Protein Total Protein Albumin Fdkmr-7-Ruhymfapq Fybzb-2-Opzrslhqx Beta Globulins PEP Interpretation Triglycerides HDL Cholesterol Arterial Blood Glucose Arterial Blood Ionized Calcium Coronavirus (PCR) Positive A 06/08/21 06/09/21 06/09/21 21:09 08:07 08:42 WBC 14.7 H RBC 5.28 H Hgb 14.9 H Hct 45.0 H D RDW Plt Count Lymph % (Auto) 4.9 L Lymph # (Auto) 0.7 L Seg Neutrophils % 90.0 H Seg Neuts % (Manual) Lymphocytes % (Manual) Nucleated RBC % Seg Neutrophils # 13.2 H Seg Neutrophils # Man Lymphocytes # (Manual) D-Dimer ABG pH POC ABG pCO2 POC ABG pO2 ABG pO2 ABG O2 Saturation ABG Base Excess ABG Oxyhemoglobin ABG Chloride ABG Glucose Oxyhemoglobin Carboxyhemoglobin Sodium Potassium Chloride Carbon Dioxide BUN Creatinine Glucose POC Glucose 242 H 230 H Hemoglobin A1c Calcium Phosphorus Magnesium Ferritin Lactate Dehydrogenase Troponin T C-Reactive Protein Total Protein Albumin Figxj-9-Xocjgbkga Irnfp-0-Goojnctbe Beta Globulins PEP Interpretation Triglycerides HDL Cholesterol Arterial Blood Glucose Arterial Blood Ionized Calcium Coronavirus (PCR) 06/09/21 06/09/21 06/09/21 08:42 12:05 12:19 WBC RBC Hgb Hct RDW Plt Count Lymph % (Auto) Lymph # (Auto) Seg Neutrophils % Seg Neuts % (Manual) Lymphocytes % (Manual) Nucleated RBC % Seg Neutrophils # Seg Neutrophils # Man Lymphocytes # (Manual) D-Dimer ABG pH POC ABG pCO2 POC ABG pO2 71.4 L ABG pO2 ABG O2 Saturation ABG Base Excess ABG Oxyhemoglobin 92.9 L ABG Chloride 109.0 H ABG Glucose 287 H Oxyhemoglobin Carboxyhemoglobin 0.4 L Sodium Potassium Chloride Carbon Dioxide 17 L BUN 74 H Creatinine 3.7 H Glucose 259 H POC Glucose 274 H Hemoglobin A1c Calcium 8.3 L Phosphorus Magnesium Ferritin Lactate Dehydrogenase Troponin T C-Reactive Protein Total Protein Albumin Scfsh-8-Kpnkpwcrg Hfykt-5-Wnmgsnsud Beta Globulins PEP Interpretation Triglycerides HDL Cholesterol Arterial Blood Glucose 287 H Arterial Blood Ionized Calcium Coronavirus (PCR) 06/09/21 06/09/21 06/10/21 16:59 21:06 08:25 WBC RBC Hgb Hct RDW Plt Count Lymph % (Auto) Lymph # (Auto) Seg Neutrophils % Seg Neuts % (Manual) Lymphocytes % (Manual) Nucleated RBC % Seg Neutrophils # Seg Neutrophils # Man Lymphocytes # (Manual) D-Dimer ABG pH POC ABG pCO2 POC ABG pO2 ABG pO2 ABG O2 Saturation ABG Base Excess ABG Oxyhemoglobin ABG Chloride ABG Glucose Oxyhemoglobin Carboxyhemoglobin Sodium Potassium Chloride Carbon Dioxide BUN Creatinine Glucose POC Glucose 268 H 263 H 280 H Hemoglobin A1c Calcium Phosphorus Magnesium Ferritin Lactate Dehydrogenase Troponin T C-Reactive Protein Total Protein Albumin Zoqci-1-Ocyecuaxa Uiqig-4-Yewhrsqnr Beta Globulins PEP Interpretation Triglycerides HDL Cholesterol Arterial Blood Glucose Arterial Blood Ionized Calcium Coronavirus (PCR) 06/10/21 06/10/21 06/10/21 12:07 15:38 21:04 WBC RBC Hgb Hct RDW Plt Count Lymph % (Auto) Lymph # (Auto) Seg Neutrophils % Seg Neuts % (Manual) Lymphocytes % (Manual) Nucleated RBC % Seg Neutrophils # Seg Neutrophils # Man Lymphocytes # (Manual) D-Dimer ABG pH POC ABG pCO2 POC ABG pO2 ABG pO2 ABG O2 Saturation ABG Base Excess ABG Oxyhemoglobin ABG Chloride ABG Glucose Oxyhemoglobin Carboxyhemoglobin Sodium Potassium Chloride Carbon Dioxide BUN Creatinine Glucose POC Glucose 247 H 269 H 195 H Hemoglobin A1c Calcium Phosphorus Magnesium Ferritin Lactate Dehydrogenase Troponin T C-Reactive Protein Total Protein Albumin Eawzb-4-Gfemczgpl Vohsh-7-Wlqskzizo Beta Globulins PEP Interpretation Triglycerides HDL Cholesterol Arterial Blood Glucose Arterial Blood Ionized Calcium Coronavirus (PCR) 06/10/21 06/10/21 06/10/21 23:14 23:14 23:14 WBC RBC Hgb Hct RDW 15.3 H Plt Count Lymph % (Auto) Lymph # (Auto) Seg Neutrophils % Seg Neuts % (Manual) 93.0 H Lymphocytes % (Manual) 2.0 L Nucleated RBC % 3.0 H Seg Neutrophils # Seg Neutrophils # Man 10.2 H Lymphocytes # (Manual) 0.2 L D-Dimer ABG pH POC ABG pCO2 POC ABG pO2 ABG pO2 ABG O2 Saturation ABG Base Excess ABG Oxyhemoglobin ABG Chloride ABG Glucose Oxyhemoglobin Carboxyhemoglobin Sodium 148 H D Potassium Chloride 111.7 H Carbon Dioxide 20 L BUN 70 H Creatinine 3.2 H Glucose 186 H POC Glucose Hemoglobin A1c Calcium Phosphorus Magnesium Ferritin Lactate Dehydrogenase Troponin T C-Reactive Protein Total Protein Albumin 2.6 L Fqgeb-5-Pgnxcxkbo 0.5 H Erqkc-3-Hpmamtheb 1.7 H Beta Globulins 0.6 H PEP Interpretation see below H Triglycerides HDL Cholesterol Arterial Blood Glucose Arterial Blood Ionized Calcium Coronavirus (PCR) 06/10/21 06/10/21 06/10/21 23:14 23:14 23:14 WBC RBC Hgb Hct RDW Plt Count Lymph % (Auto) Lymph # (Auto) Seg Neutrophils % Seg Neuts % (Manual) Lymphocytes % (Manual) Nucleated RBC % Seg Neutrophils # Seg Neutrophils # Man Lymphocytes # (Manual) D-Dimer > 41975 H ABG pH POC ABG pCO2 POC ABG pO2 ABG pO2 ABG O2 Saturation ABG Base Excess ABG Oxyhemoglobin ABG Chloride ABG Glucose Oxyhemoglobin Carboxyhemoglobin Sodium Potassium Chloride Carbon Dioxide BUN Creatinine Glucose POC Glucose Hemoglobin A1c Calcium Phosphorus Magnesium 2.50 H Ferritin 1319.0 H Lactate Dehydrogenase 606 H Troponin T C-Reactive Protein Total Protein Albumin Jyhyk-2-Wmasxhabd Xfcsc-4-Yiunhzpsb Beta Globulins PEP Interpretation Triglycerides HDL Cholesterol Arterial Blood Glucose Arterial Blood Ionized Calcium Coronavirus (PCR) 06/11/21 06/11/21 06/11/21 07:34 10:57 10:57 WBC RBC Hgb Hct RDW Plt Count Lymph % (Auto) Lymph # (Auto) Seg Neutrophils % Seg Neuts % (Manual) Lymphocytes % (Manual) Nucleated RBC % Seg Neutrophils # Seg Neutrophils # Man Lymphocytes # (Manual) D-Dimer > 61752 H ABG pH POC ABG pCO2 POC ABG pO2 ABG pO2 ABG O2 Saturation ABG Base Excess ABG Oxyhemoglobin ABG Chloride ABG Glucose Oxyhemoglobin Carboxyhemoglobin Sodium Potassium Chloride Carbon Dioxide BUN Creatinine Glucose POC Glucose 169 H Hemoglobin A1c Calcium Phosphorus Magnesium Ferritin 1300.0 H Lactate Dehydrogenase Troponin T C-Reactive Protein Total Protein Albumin Ujrnq-3-Rafljhtnq Qaybq-6-Ltikoimny Beta Globulins PEP Interpretation Triglycerides HDL Cholesterol Arterial Blood Glucose Arterial Blood Ionized Calcium Coronavirus (PCR) 06/11/21 06/11/21 06/11/21 10:58 10:58 11:49 WBC 11.3 H RBC Hgb Hct RDW 15.3 H Plt Count Lymph % (Auto) Lymph # (Auto) Seg Neutrophils % Seg Neuts % (Manual) 88.0 H Lymphocytes % (Manual) 6.0 L Nucleated RBC % Seg Neutrophils # Seg Neutrophils # Man 9.9 H Lymphocytes # (Manual) 0.7 L D-Dimer ABG pH POC ABG pCO2 POC ABG pO2 ABG pO2 ABG O2 Saturation ABG Base Excess ABG Oxyhemoglobin ABG Chloride ABG Glucose Oxyhemoglobin Carboxyhemoglobin Sodium 150 H Potassium 3.4 L Chloride 114.8 H Carbon Dioxide 21 L BUN 65 H Creatinine 2.9 H Glucose 180 H POC Glucose 191 H Hemoglobin A1c Calcium Phosphorus Magnesium 2.50 H Ferritin Lactate Dehydrogenase Troponin T C-Reactive Protein 1.90 H Total Protein Albumin Qkehm-2-Jsxtrkbdt Nwiuz-4-Mwcvdkime Beta Globulins PEP Interpretation Triglycerides HDL Cholesterol Arterial Blood Glucose Arterial Blood Ionized Calcium Coronavirus (PCR) 06/11/21 06/11/21 06/12/21 15:49 21:16 04:22 WBC RBC Hgb Hct RDW Plt Count Lymph % (Auto) Lymph # (Auto) Seg Neutrophils % Seg Neuts % (Manual) Lymphocytes % (Manual) Nucleated RBC % Seg Neutrophils # Seg Neutrophils # Man Lymphocytes # (Manual) D-Dimer ABG pH 7.318 L POC ABG pCO2 POC ABG pO2 ABG pO2 51.5 L ABG O2 Saturation 86.9 L ABG Base Excess -5.6 L ABG Oxyhemoglobin ABG Chloride ABG Glucose Oxyhemoglobin 85.5 L Carboxyhemoglobin Sodium Potassium Chloride Carbon Dioxide BUN Creatinine Glucose POC Glucose 185 H 200 H Hemoglobin A1c Calcium Phosphorus Magnesium Ferritin Lactate Dehydrogenase Troponin T C-Reactive Protein Total Protein Albumin Jzpwo-4-Wcsptgqlp Wlkwc-9-Wcajamnru Beta Globulins PEP Interpretation Triglycerides HDL Cholesterol Arterial Blood Glucose Arterial Blood Ionized Calcium Coronavirus (PCR) 06/12/21 06/12/21 06/12/21 07:41 08:31 08:31 WBC 12.4 H RBC Hgb Hct RDW 15.3 H Plt Count Lymph % (Auto) 8.5 L Lymph # (Auto) 1.1 L Seg Neutrophils % 88.1 H Seg Neuts % (Manual) Lymphocytes % (Manual) Nucleated RBC % Seg Neutrophils # 10.9 H Seg Neutrophils # Man Lymphocytes # (Manual) D-Dimer ABG pH POC ABG pCO2 POC ABG pO2 ABG pO2 ABG O2 Saturation ABG Base Excess ABG Oxyhemoglobin ABG Chloride ABG Glucose Oxyhemoglobin Carboxyhemoglobin Sodium 151 H Potassium Chloride 117.3 H Carbon Dioxide 21 L BUN 61 H Creatinine 2.5 H Glucose 165 H POC Glucose 165 H Hemoglobin A1c Calcium 8.3 L Phosphorus Magnesium Ferritin Lactate Dehydrogenase Troponin T C-Reactive Protein Total Protein Albumin Vhdwj-7-Ijvcaaoqm Esndb-5-Jwsyjswww Beta Globulins PEP Interpretation Triglycerides HDL Cholesterol Arterial Blood Glucose Arterial Blood Ionized Calcium Coronavirus (PCR) 06/12/21 06/12/21 06/12/21 08:31 10:32 15:47 WBC RBC Hgb Hct RDW Plt Count Lymph % (Auto) Lymph # (Auto) Seg Neutrophils % Seg Neuts % (Manual) Lymphocytes % (Manual) Nucleated RBC % Seg Neutrophils # Seg Neutrophils # Man Lymphocytes # (Manual) D-Dimer ABG pH POC ABG pCO2 POC ABG pO2 ABG pO2 ABG O2 Saturation ABG Base Excess ABG Oxyhemoglobin ABG Chloride ABG Glucose Oxyhemoglobin Carboxyhemoglobin Sodium Potassium Chloride Carbon Dioxide BUN Creatinine Glucose POC Glucose 156 H 176 H Hemoglobin A1c Calcium Phosphorus Magnesium 2.50 H Ferritin Lactate Dehydrogenase Troponin T C-Reactive Protein Total Protein Albumin Drawx-5-Frevtmheu Tyyln-7-Rrbzbhive Beta Globulins PEP Interpretation Triglycerides HDL Cholesterol Arterial Blood Glucose Arterial Blood Ionized Calcium Coronavirus (PCR) 06/12/21 06/13/21 06/13/21 21:50 07:42 07:42 WBC 14.1 H RBC Hgb Hct RDW 15.3 H Plt Count Lymph % (Auto) Lymph # (Auto) Seg Neutrophils % Seg Neuts % (Manual) 87.0 H Lymphocytes % (Manual) 7.0 L Nucleated RBC % 3.0 H Seg Neutrophils # Seg Neutrophils # Man 12.3 H Lymphocytes # (Manual) 1.0 L D-Dimer ABG pH POC ABG pCO2 POC ABG pO2 ABG pO2 ABG O2 Saturation ABG Base Excess ABG Oxyhemoglobin ABG Chloride ABG Glucose Oxyhemoglobin Carboxyhemoglobin Sodium 151 H Potassium 3.5 L Chloride 116.0 H Carbon Dioxide BUN 61 H Creatinine 2.3 H Glucose 135 H POC Glucose 165 H Hemoglobin A1c Calcium Phosphorus Magnesium 2.50 H Ferritin Lactate Dehydrogenase Troponin T C-Reactive Protein Total Protein Albumin Bsbzl-7-Fvzkxnbne Itpka-1-Enakkagfz Beta Globulins PEP Interpretation Triglycerides HDL Cholesterol Arterial Blood Glucose Arterial Blood Ionized Calcium Coronavirus (PCR) 06/13/21 06/13/21 06/13/21 08:10 11:10 18:15 WBC RBC Hgb Hct RDW Plt Count Lymph % (Auto) Lymph # (Auto) Seg Neutrophils % Seg Neuts % (Manual) Lymphocytes % (Manual) Nucleated RBC % Seg Neutrophils # Seg Neutrophils # Man Lymphocytes # (Manual) D-Dimer ABG pH POC ABG pCO2 POC ABG pO2 ABG pO2 ABG O2 Saturation ABG Base Excess ABG Oxyhemoglobin ABG Chloride ABG Glucose Oxyhemoglobin Carboxyhemoglobin Sodium Potassium Chloride Carbon Dioxide BUN Creatinine Glucose POC Glucose 118 H 139 H 179 H Hemoglobin A1c Calcium Phosphorus Magnesium Ferritin Lactate Dehydrogenase Troponin T C-Reactive Protein Total Protein Albumin Nyxot-8-Uyuyniwol Wmjzl-7-Pbxljnvxr Beta Globulins PEP Interpretation Triglycerides HDL Cholesterol Arterial Blood Glucose Arterial Blood Ionized Calcium Coronavirus (PCR) 06/13/21 06/13/21 06/14/21 21:54 23:27 04:42 WBC 12.8 H RBC Hgb Hct RDW 15.3 H Plt Count Lymph % (Auto) Lymph # (Auto) Seg Neutrophils % Seg Neuts % (Manual) 92.0 H Lymphocytes % (Manual) 1.0 L Nucleated RBC % 2.0 H Seg Neutrophils # Seg Neutrophils # Man 11.8 H Lymphocytes # (Manual) 0.1 L D-Dimer ABG pH POC ABG pCO2 POC ABG pO2 ABG pO2 ABG O2 Saturation ABG Base Excess ABG Oxyhemoglobin ABG Chloride ABG Glucose Oxyhemoglobin Carboxyhemoglobin Sodium 152 H Potassium Chloride 116.3 H Carbon Dioxide 21 L BUN 67 H Creatinine 2.5 H Glucose 212 H POC Glucose 193 H Hemoglobin A1c Calcium Phosphorus Magnesium Ferritin Lactate Dehydrogenase Troponin T C-Reactive Protein Total Protein Albumin Wdabz-8-Bbbwvreko Pjizr-9-Bwymytkty Beta Globulins PEP Interpretation Triglycerides HDL Cholesterol Arterial Blood Glucose Arterial Blood Ionized Calcium Coronavirus (PCR) 06/14/21 06/14/21 06/14/21 04:42 04:42 07:33 WBC RBC Hgb Hct RDW Plt Count Lymph % (Auto) Lymph # (Auto) Seg Neutrophils % Seg Neuts % (Manual) Lymphocytes % (Manual) Nucleated RBC % Seg Neutrophils # Seg Neutrophils # Man Lymphocytes # (Manual) D-Dimer ABG pH POC ABG pCO2 POC ABG pO2 ABG pO2 ABG O2 Saturation ABG Base Excess ABG Oxyhemoglobin ABG Chloride ABG Glucose Oxyhemoglobin Carboxyhemoglobin Sodium 152 H Potassium Chloride 115.3 H Carbon Dioxide BUN 68 H Creatinine 2.5 H Glucose 188 H POC Glucose 173 H Hemoglobin A1c Calcium Phosphorus Magnesium 2.40 H Ferritin Lactate Dehydrogenase Troponin T C-Reactive Protein Total Protein Albumin Bqpph-7-Cfitmvyhx Tlgwv-6-Tcqgmrwpn Beta Globulins PEP Interpretation Triglycerides HDL Cholesterol Arterial Blood Glucose Arterial Blood Ionized Calcium Coronavirus (PCR) 06/14/21 06/14/21 06/14/21 10:57 15:53 23:40 WBC RBC Hgb Hct RDW Plt Count Lymph % (Auto) Lymph # (Auto) Seg Neutrophils % Seg Neuts % (Manual) Lymphocytes % (Manual) Nucleated RBC % Seg Neutrophils # Seg Neutrophils # Man Lymphocytes # (Manual) D-Dimer ABG pH POC ABG pCO2 POC ABG pO2 ABG pO2 ABG O2 Saturation ABG Base Excess ABG Oxyhemoglobin ABG Chloride ABG Glucose Oxyhemoglobin Carboxyhemoglobin Sodium Potassium Chloride Carbon Dioxide BUN Creatinine Glucose POC Glucose 195 H 226 H 235 H Hemoglobin A1c Calcium Phosphorus Magnesium Ferritin Lactate Dehydrogenase Troponin T C-Reactive Protein Total Protein Albumin Ucyyp-1-Uugdnjsjr Ilipg-5-Uisfznzix Beta Globulins PEP Interpretation Triglycerides HDL Cholesterol Arterial Blood Glucose Arterial Blood Ionized Calcium Coronavirus (PCR) 06/15/21 06/15/21 06/15/21 07:38 07:38 07:38 WBC 14.3 H RBC Hgb Hct RDW Plt Count Lymph % (Auto) Lymph # (Auto) Seg Neutrophils % Seg Neuts % (Manual) 95.0 H Lymphocytes % (Manual) 1.0 L Nucleated RBC % Seg Neutrophils # Seg Neutrophils # Man 13.6 H Lymphocytes # (Manual) 0.1 L D-Dimer > 16039 H ABG pH POC ABG pCO2 POC ABG pO2 ABG pO2 ABG O2 Saturation ABG Base Excess ABG Oxyhemoglobin ABG Chloride ABG Glucose Oxyhemoglobin Carboxyhemoglobin Sodium 153 H Potassium 3.5 L Chloride 115.9 H Carbon Dioxide BUN 55 H Creatinine 2.1 H Glucose 213 H POC Glucose Hemoglobin A1c Calcium Phosphorus Magnesium Ferritin Lactate Dehydrogenase Troponin T C-Reactive Protein Total Protein Albumin Xxxys-7-Tznbhwcjm Dolps-3-Xtvstxgmf Beta Globulins PEP Interpretation Triglycerides HDL Cholesterol Arterial Blood Glucose Arterial Blood Ionized Calcium Coronavirus (PCR) 06/15/21 06/15/21 06/15/21 07:38 09:21 11:46 WBC RBC Hgb Hct RDW Plt Count Lymph % (Auto) Lymph # (Auto) Seg Neutrophils % Seg Neuts % (Manual) Lymphocytes % (Manual) Nucleated RBC % Seg Neutrophils # Seg Neutrophils # Man Lymphocytes # (Manual) D-Dimer ABG pH POC ABG pCO2 POC ABG pO2 ABG pO2 ABG O2 Saturation ABG Base Excess ABG Oxyhemoglobin ABG Chloride ABG Glucose Oxyhemoglobin Carboxyhemoglobin Sodium Potassium Chloride Carbon Dioxide BUN Creatinine Glucose POC Glucose 202 H 233 H Hemoglobin A1c Calcium Phosphorus Magnesium Ferritin 1246.0 H Lactate Dehydrogenase Troponin T C-Reactive Protein Total Protein Albumin Jqdul-7-Lcyuhqplg Wmzvf-5-Uhfgjogqn Beta Globulins PEP Interpretation Triglycerides HDL Cholesterol Arterial Blood Glucose Arterial Blood Ionized Calcium Coronavirus (PCR) 06/15/21 06/16/21 06/16/21 17:32 05:44 07:48 WBC RBC Hgb Hct RDW Plt Count Lymph % (Auto) Lymph # (Auto) Seg Neutrophils % Seg Neuts % (Manual) Lymphocytes % (Manual) Nucleated RBC % Seg Neutrophils # Seg Neutrophils # Man Lymphocytes # (Manual) D-Dimer ABG pH POC ABG pCO2 POC ABG pO2 ABG pO2 ABG O2 Saturation ABG Base Excess ABG Oxyhemoglobin ABG Chloride ABG Glucose Oxyhemoglobin Carboxyhemoglobin Sodium 154 H Potassium Chloride 117.2 H Carbon Dioxide BUN 54 H Creatinine 2.0 H Glucose 120 H POC Glucose 179 H 109 H Hemoglobin A1c Calcium Phosphorus Magnesium Ferritin Lactate Dehydrogenase Troponin T C-Reactive Protein Total Protein Albumin Bmdlv-9-Lqrilznmm Jsdtf-5-Atemagaqg Beta Globulins PEP Interpretation Triglycerides HDL Cholesterol Arterial Blood Glucose Arterial Blood Ionized Calcium Coronavirus (PCR) 06/16/21 06/16/21 06/16/21 11:13 15:22 21:15 WBC RBC Hgb Hct RDW Plt Count Lymph % (Auto) Lymph # (Auto) Seg Neutrophils % Seg Neuts % (Manual) Lymphocytes % (Manual) Nucleated RBC % Seg Neutrophils # Seg Neutrophils # Man Lymphocytes # (Manual) D-Dimer ABG pH POC ABG pCO2 POC ABG pO2 ABG pO2 ABG O2 Saturation ABG Base Excess ABG Oxyhemoglobin ABG Chloride ABG Glucose Oxyhemoglobin Carboxyhemoglobin Sodium Potassium Chloride Carbon Dioxide BUN Creatinine Glucose POC Glucose 222 H 218 H 250 H Hemoglobin A1c Calcium Phosphorus Magnesium Ferritin Lactate Dehydrogenase Troponin T C-Reactive Protein Total Protein Albumin Fxngt-6-Avhpbljkc Ogryq-2-Hepqcmmwf Beta Globulins PEP Interpretation Triglycerides HDL Cholesterol Arterial Blood Glucose Arterial Blood Ionized Calcium Coronavirus (PCR) 06/17/21 06/17/21 06/17/21 07:55 09:35 09:35 WBC RBC Hgb Hct RDW 15.7 H Plt Count 99 L Lymph % (Auto) Lymph # (Auto) Seg Neutrophils % Seg Neuts % (Manual) Lymphocytes % (Manual) Nucleated RBC % Seg Neutrophils # Seg Neutrophils # Man Lymphocytes # (Manual) D-Dimer ABG pH POC ABG pCO2 POC ABG pO2 ABG pO2 ABG O2 Saturation ABG Base Excess ABG Oxyhemoglobin ABG Chloride ABG Glucose Oxyhemoglobin Carboxyhemoglobin Sodium 148 H Potassium Chloride 113.3 H Carbon Dioxide BUN 45 H Creatinine 1.8 H Glucose 202 H POC Glucose 158 H Hemoglobin A1c Calcium Phosphorus Magnesium Ferritin Lactate Dehydrogenase Troponin T C-Reactive Protein Total Protein 6.0 L Albumin 2.8 L Wvtpc-7-Kicxdzqtr Btljw-3-Vjkuqtgnc Beta Globulins PEP Interpretation Triglycerides HDL Cholesterol Arterial Blood Glucose Arterial Blood Ionized Calcium Coronavirus (PCR) 06/17/21 06/17/21 06/18/21 12:32 16:46 06:00 WBC RBC Hgb Hct RDW Plt Count Lymph % (Auto) Lymph # (Auto) Seg Neutrophils % Seg Neuts % (Manual) Lymphocytes % (Manual) Nucleated RBC % Seg Neutrophils # Seg Neutrophils # Man Lymphocytes # (Manual) D-Dimer 9804.08 H ABG pH POC ABG pCO2 POC ABG pO2 ABG pO2 ABG O2 Saturation ABG Base Excess ABG Oxyhemoglobin ABG Chloride ABG Glucose Oxyhemoglobin Carboxyhemoglobin Sodium Potassium Chloride Carbon Dioxide BUN Creatinine Glucose POC Glucose 227 H 203 H Hemoglobin A1c Calcium Phosphorus Magnesium Ferritin Lactate Dehydrogenase Troponin T C-Reactive Protein Total Protein Albumin Rniiz-4-Tybezhhjl Bkses-3-Davovzspo Beta Globulins PEP Interpretation Triglycerides HDL Cholesterol Arterial Blood Glucose Arterial Blood Ionized Calcium Coronavirus (PCR) 06/18/21 06/18/21 06/18/21 06:00 08:00 10:10 WBC RBC Hgb Hct RDW Plt Count Lymph % (Auto) Lymph # (Auto) Seg Neutrophils % Seg Neuts % (Manual) Lymphocytes % (Manual) Nucleated RBC % Seg Neutrophils # Seg Neutrophils # Man Lymphocytes # (Manual) D-Dimer ABG pH POC ABG pCO2 POC ABG pO2 ABG pO2 ABG O2 Saturation ABG Base Excess ABG Oxyhemoglobin ABG Chloride ABG Glucose Oxyhemoglobin Carboxyhemoglobin Sodium Potassium Chloride 110.1 H Carbon Dioxide BUN 39 H Creatinine 1.8 H Glucose 135 H POC Glucose 107 H Hemoglobin A1c Calcium Phosphorus Magnesium Ferritin 904.2 H Lactate Dehydrogenase Troponin T C-Reactive Protein Total Protein Albumin Uaxnc-2-Blssflyrg Niktu-2-Tpmxzukgv Beta Globulins PEP Interpretation Triglycerides HDL Cholesterol Arterial Blood Glucose Arterial Blood Ionized Calcium Coronavirus (PCR) 06/18/21 06/18/21 06/18/21 12:06 16:47 21:14 WBC RBC Hgb Hct RDW Plt Count Lymph % (Auto) Lymph # (Auto) Seg Neutrophils % Seg Neuts % (Manual) Lymphocytes % (Manual) Nucleated RBC % Seg Neutrophils # Seg Neutrophils # Man Lymphocytes # (Manual) D-Dimer ABG pH POC ABG pCO2 POC ABG pO2 ABG pO2 ABG O2 Saturation ABG Base Excess ABG Oxyhemoglobin ABG Chloride ABG Glucose Oxyhemoglobin Carboxyhemoglobin Sodium Potassium Chloride Carbon Dioxide BUN Creatinine Glucose POC Glucose 160 H 236 H 186 H Hemoglobin A1c Calcium Phosphorus Magnesium Ferritin Lactate Dehydrogenase Troponin T C-Reactive Protein Total Protein Albumin Myzdv-6-Jtqgxpdxu Esjzp-8-Pfrrzxbuw Beta Globulins PEP Interpretation Triglycerides HDL Cholesterol Arterial Blood Glucose Arterial Blood Ionized Calcium Coronavirus (PCR) 06/19/21 06/19/21 06/20/21 15:46 15:46 08:04 WBC RBC Hgb Hct RDW 15.5 H Plt Count 73 L Lymph % (Auto) Lymph # (Auto) Seg Neutrophils % Seg Neuts % (Manual) Lymphocytes % (Manual) Nucleated RBC % Seg Neutrophils # Seg Neutrophils # Man Lymphocytes # (Manual) D-Dimer ABG pH POC ABG pCO2 POC ABG pO2 ABG pO2 ABG O2 Saturation ABG Base Excess ABG Oxyhemoglobin ABG Chloride ABG Glucose Oxyhemoglobin Carboxyhemoglobin Sodium 146 H Potassium Chloride 108.9 H Carbon Dioxide BUN 38 H Creatinine 1.7 H Glucose POC Glucose 52 L Hemoglobin A1c Calcium Phosphorus Magnesium Ferritin Lactate Dehydrogenase Troponin T C-Reactive Protein Total Protein Albumin Ixwgt-5-Ifhgeamjo Vdjjt-5-Udmsqxstz Beta Globulins PEP Interpretation Triglycerides HDL Cholesterol Arterial Blood Glucose Arterial Blood Ionized Calcium Coronavirus (PCR) 06/20/21 06/20/21 06/20/21 11:58 15:16 17:54 WBC RBC Hgb Hct RDW Plt Count Lymph % (Auto) Lymph # (Auto) Seg Neutrophils % Seg Neuts % (Manual) Lymphocytes % (Manual) Nucleated RBC % Seg Neutrophils # Seg Neutrophils # Man Lymphocytes # (Manual) D-Dimer ABG pH POC ABG pCO2 POC ABG pO2 ABG pO2 ABG O2 Saturation ABG Base Excess ABG Oxyhemoglobin ABG Chloride ABG Glucose Oxyhemoglobin Carboxyhemoglobin Sodium 146 H Potassium Chloride 108.2 H Carbon Dioxide BUN 37 H Creatinine 1.7 H Glucose 131 H POC Glucose 58 L 219 H Hemoglobin A1c Calcium Phosphorus Magnesium Ferritin Lactate Dehydrogenase Troponin T C-Reactive Protein Total Protein Albumin Xftxp-1-Evrycjpzc Nbgvb-0-Rsqjoqbig Beta Globulins PEP Interpretation Triglycerides HDL Cholesterol Arterial Blood Glucose Arterial Blood Ionized Calcium Coronavirus (PCR) 06/20/21 06/21/21 06/21/21 21:58 06:00 07:41 WBC RBC Hgb Hct RDW Plt Count Lymph % (Auto) Lymph # (Auto) Seg Neutrophils % Seg Neuts % (Manual) Lymphocytes % (Manual) Nucleated RBC % Seg Neutrophils # Seg Neutrophils # Man Lymphocytes # (Manual) D-Dimer ABG pH POC ABG pCO2 POC ABG pO2 ABG pO2 ABG O2 Saturation ABG Base Excess ABG Oxyhemoglobin ABG Chloride ABG Glucose Oxyhemoglobin Carboxyhemoglobin Sodium Potassium Chloride Carbon Dioxide BUN 42 H Creatinine 2.0 H Glucose 225 H POC Glucose 180 H 204 H Hemoglobin A1c Calcium Phosphorus Magnesium Ferritin Lactate Dehydrogenase Troponin T C-Reactive Protein Total Protein Albumin Amyvn-1-Gkfuwkgni Btrjp-3-Jhjsojlzy Beta Globulins PEP Interpretation Triglycerides HDL Cholesterol Arterial Blood Glucose Arterial Blood Ionized Calcium Coronavirus (PCR) 06/21/21 06/21/21 06/21/21 11:01 11:20 15:57 WBC RBC Hgb Hct RDW Plt Count Lymph % (Auto) Lymph # (Auto) Seg Neutrophils % Seg Neuts % (Manual) Lymphocytes % (Manual) Nucleated RBC % Seg Neutrophils # Seg Neutrophils # Man Lymphocytes # (Manual) D-Dimer ABG pH POC ABG pCO2 POC ABG pO2 58.9 L ABG pO2 ABG O2 Saturation ABG Base Excess ABG Oxyhemoglobin 87.4 L ABG Chloride ABG Glucose 212 H Oxyhemoglobin Carboxyhemoglobin Sodium Potassium Chloride Carbon Dioxide BUN Creatinine Glucose POC Glucose 194 H 171 H Hemoglobin A1c Calcium Phosphorus Magnesium Ferritin Lactate Dehydrogenase Troponin T C-Reactive Protein Total Protein Albumin Fkhll-1-Sqfwjuzof Jalyu-1-Xhbgccmbl Beta Globulins PEP Interpretation Triglycerides HDL Cholesterol Arterial Blood Glucose 212 H Arterial Blood Ionized Calcium 4.5 L Coronavirus (PCR) 06/21/21 06/21/21 06/21/21 17:52 17:55 22:09 WBC RBC Hgb Hct RDW Plt Count Lymph % (Auto) Lymph # (Auto) Seg Neutrophils % Seg Neuts % (Manual) Lymphocytes % (Manual) Nucleated RBC % Seg Neutrophils # Seg Neutrophils # Man Lymphocytes # (Manual) D-Dimer ABG pH 7.316 L POC ABG pCO2 51.7 H POC ABG pO2 62.3 L ABG pO2 ABG O2 Saturation ABG Base Excess ABG Oxyhemoglobin 88.7 L ABG Chloride ABG Glucose 197 H Oxyhemoglobin Carboxyhemoglobin Sodium Potassium Chloride Carbon Dioxide BUN Creatinine Glucose POC Glucose 153 H 178 H Hemoglobin A1c Calcium Phosphorus Magnesium Ferritin Lactate Dehydrogenase Troponin T C-Reactive Protein Total Protein Albumin Qkfte-2-Uguskdfcd Hrguy-8-Evzpjtjtq Beta Globulins PEP Interpretation Triglycerides HDL Cholesterol Arterial Blood Glucose 197 H Arterial Blood Ionized Calcium Coronavirus (PCR) 06/22/21 06/22/21 06/22/21 07:30 07:43 11:47 WBC RBC Hgb Hct RDW Plt Count Lymph % (Auto) Lymph # (Auto) Seg Neutrophils % Seg Neuts % (Manual) Lymphocytes % (Manual) Nucleated RBC % Seg Neutrophils # Seg Neutrophils # Man Lymphocytes # (Manual) D-Dimer ABG pH POC ABG pCO2 POC ABG pO2 ABG pO2 ABG O2 Saturation ABG Base Excess ABG Oxyhemoglobin ABG Chloride ABG Glucose Oxyhemoglobin Carboxyhemoglobin Sodium Potassium Chloride Carbon Dioxide 21 L BUN 55 H Creatinine 2.8 H Glucose 219 H POC Glucose 235 H 222 H Hemoglobin A1c Calcium Phosphorus Magnesium Ferritin Lactate Dehydrogenase Troponin T C-Reactive Protein Total Protein Albumin Zbegf-8-Bavlamesq Ggbco-8-Aoljalgky Beta Globulins PEP Interpretation Triglycerides HDL Cholesterol Arterial Blood Glucose Arterial Blood Ionized Calcium Coronavirus (PCR) 06/22/21 06/22/21 06/22/21 11:50 12:10 15:15 WBC RBC Hgb Hct RDW Plt Count Lymph % (Auto) Lymph # (Auto) Seg Neutrophils % Seg Neuts % (Manual) Lymphocytes % (Manual) Nucleated RBC % Seg Neutrophils # Seg Neutrophils # Man Lymphocytes # (Manual) D-Dimer ABG pH 7.273 L POC ABG pCO2 POC ABG pO2 56.8 L 56.8 L ABG pO2 58.0 L ABG O2 Saturation 85.7 L ABG Base Excess -4.9 L ABG Oxyhemoglobin 86.7 L 86.7 L ABG Chloride ABG Glucose Oxyhemoglobin 84.1 L Carboxyhemoglobin Sodium Potassium Chloride Carbon Dioxide BUN Creatinine Glucose POC Glucose Hemoglobin A1c Calcium Phosphorus Magnesium Ferritin Lactate Dehydrogenase Troponin T C-Reactive Protein Total Protein Albumin Rhhkq-5-Hfysmcbop Aplxv-1-Thakyhpzk Beta Globulins PEP Interpretation Triglycerides HDL Cholesterol Arterial Blood Glucose Arterial Blood Ionized Calcium Coronavirus (PCR) 06/22/21 06/22/21 06/22/21 17:28 21:22 23:35 WBC RBC Hgb Hct RDW Plt Count Lymph % (Auto) Lymph # (Auto) Seg Neutrophils % Seg Neuts % (Manual) Lymphocytes % (Manual) Nucleated RBC % Seg Neutrophils # Seg Neutrophils # Man Lymphocytes # (Manual) D-Dimer ABG pH 7.217 L POC ABG pCO2 POC ABG pO2 ABG pO2 61.7 L ABG O2 Saturation 87.3 L ABG Base Excess -6.0 L ABG Oxyhemoglobin ABG Chloride ABG Glucose Oxyhemoglobin 85.4 L Carboxyhemoglobin Sodium Potassium Chloride Carbon Dioxide BUN Creatinine Glucose POC Glucose 221 H 204 H Hemoglobin A1c Calcium Phosphorus Magnesium Ferritin Lactate Dehydrogenase Troponin T C-Reactive Protein Total Protein Albumin Zjzti-6-Juepjpjrq Ydzld-2-Lxsdiodse Beta Globulins PEP Interpretation Triglycerides HDL Cholesterol Arterial Blood Glucose Arterial Blood Ionized Calcium Coronavirus (PCR) 06/23/21 06/23/21 06/23/21 04:42 04:42 04:42 WBC 19.0 H RBC 5.04 H Hgb Hct 44.5 H RDW 16.6 H Plt Count 61 L Lymph % (Auto) Lymph # (Auto) Seg Neutrophils % Seg Neuts % (Manual) Lymphocytes % (Manual) Nucleated RBC % Seg Neutrophils # Seg Neutrophils # Man Lymphocytes # (Manual) D-Dimer 6308.27 H ABG pH POC ABG pCO2 POC ABG pO2 ABG pO2 ABG O2 Saturation ABG Base Excess ABG Oxyhemoglobin ABG Chloride ABG Glucose Oxyhemoglobin Carboxyhemoglobin Sodium Potassium 6.3 H* D Chloride Carbon Dioxide 21 L BUN 72 H Creatinine 4.6 H D Glucose 225 H POC Glucose Hemoglobin A1c Calcium 8.0 L Phosphorus Magnesium Ferritin Lactate Dehydrogenase Troponin T C-Reactive Protein Total Protein Albumin Zvquh-9-Oyecqlbkf Bajca-7-Xllqkbdcs Beta Globulins PEP Interpretation Triglycerides HDL Cholesterol Arterial Blood Glucose Arterial Blood Ionized Calcium Coronavirus (PCR) 06/23/21 06/23/21 06/23/21 04:42 04:42 05:33 WBC RBC Hgb Hct RDW Plt Count Lymph % (Auto) Lymph # (Auto) Seg Neutrophils % Seg Neuts % (Manual) Lymphocytes % (Manual) Nucleated RBC % Seg Neutrophils # Seg Neutrophils # Man Lymphocytes # (Manual) D-Dimer ABG pH POC ABG pCO2 POC ABG pO2 ABG pO2 ABG O2 Saturation ABG Base Excess ABG Oxyhemoglobin ABG Chloride ABG Glucose Oxyhemoglobin Carboxyhemoglobin Sodium Potassium Chloride Carbon Dioxide BUN Creatinine Glucose POC Glucose 227 H Hemoglobin A1c Calcium 7.9 L Phosphorus 8.30 H Magnesium Ferritin 1496.0 H Lactate Dehydrogenase Troponin T C-Reactive Protein 4.40 H Total Protein Albumin Rddiq-3-Ukhlthdqh Uyaiy-6-Rbbiuyqmn Beta Globulins PEP Interpretation Triglycerides HDL Cholesterol Arterial Blood Glucose Arterial Blood Ionized Calcium Coronavirus (PCR) Chest x-ray: image reviewed Allied health notes reviewed: nursing
[2021-06-23] MEDS ORDERED: ENOXAPARIN 40 MG/0.4 ML INJ SUB-Q ONE (10:25)
[2021-06-23] MEDS: FAMOTIDINE 20 MG/2 ML INJ IV SCH ×2 (10:35→21:40)
[2021-06-23] MEDS: SENNOSIDES/DOCUSATE SODIUM 8.6/50 MG TAB FEEDTUBE SCH ×2 (10:35→21:40)
[2021-06-23] MEDS: ZINC SULFATE 220 MG CAP PO SCH ×2 (10:35→21:41)
[2021-06-23] MEDS: VASOPRESSIN 20 UNIT in SODIUM CHLORIDE 0.9% 100 ML IV SCH ×2 (10:35→20:08)
[2021-06-23] MEDS: ENOXAPARIN 40 MG/0.4 ML INJ SUB-Q SCH (10:36)
[2021-06-23] MEDS ORDERED: levETIRAcetam 500 MG in DEXTROSE 5% IN WATER 100 ML IV SCH ×2 (11:00)
[2021-06-23] MEDS ORDERED: SODIUM CHLORIDE 0.9% 500 ML 500 ML IV PRN (11:19)
[2021-06-23] MEDS ORDERED: SODIUM BICARB 8.4% 50 MEQ/50 ML SYRINGE IV ONE (11:30)
--- NOTE | 2021-06-23 12:09 | Vascular Lab Report ---
DUPLEX DOPPLER LOWER EXTREMITY VEINS, BILATERAL INDICATION / CLINICAL INFORMATION: r/o dvt. TECHNIQUE: Duplex doppler imaging was performed through the veins of both lower extremities using venkatesh ous compression and other maneuvers. COMPARISON: Right lower extremity venous Doppler 06/26/2019. FINDINGS: RIGHT COMMON FEMORAL VEIN: Negative. RIGHT FEMORAL VEIN: Negative. RIGHT POPLITEAL VEIN: Negative. RIGHT CALF VEINS: Negative. Previously visualized occlusive thrombus within the posterior tibial and peroneal veins has resolved. LEFT COMMON FEMORAL VEIN: Negative. LEFT FEMORAL VEIN: Negative. LEFT POPLITEAL VEIN: Negative. LEFT CALF VEINS: Negative. ADDITIONAL FINDINGS: None. IMPRESSION: 1. No sonographic evidence for DVT in either lower extremity. Scribed by: Ayanna Bailey RDMS, RVT Scribed: 06/23/2021 10:50 AM I have reviewed the images, agree with this report, and edited this report as needed. Signer Name: Joon Ortiz MD Signed: 06/23/2021 12:04 PM Workstation Name: [id number]
[2021-06-23 12:55] LABS: Partial Thromboplastin Time 43.8 Sec. (24.2-36.6)
[2021-06-23 13:08] LABS: INR 2.18 (0.87-1.13)
--- NOTE | 2021-06-23 13:36 | Consultation ---
History of Present Illness Consult date: 06/23/21 Reason for Consult: Possible seizure History of present illness: History of Present Illness Consult date: 06/08/21 Requesting physician: SAYDA VALLE Consult reason: elevated troponin History of present illness: Patient is a 61 y/o female, who is previously unknown to our practice, with a PMHx of HTN, hypothyroidism, CKD III, H/o DVT, and DM who presents with a complaint of malaise, chills, fever, cough and SOB x 1 week. The patient reports that on 05/28/2021 she went to a with her family and that shortly after her and her family members became sick. She reports that her family members have tested positive for COVID-19. She states that she received the [employer] vaccine in December 2020. She also reports some sharp chest pain that occurs when she coughs, is reproducible with palpation and was relieved with Tylenol. Hospital work up showed WBC 11.5, creatinine 4.8, D-dimer 5334, troponin0.043, and CXR with bilateral multifocal airspace disease. she is COVID-19 positive with high inflammatory markers she is on Eliquis until this morning stopped due to witnessed seizure by the nurse lasted close to 3 minutes started on Keppra and SQ heparine CT brain is pending Past History Past Medical History: diabetes, DVT, hypertension, hyperlipidemia, hypothyroidism,DVT on Eliquis Past Surgical History: No surgical history Social history: lives with family Family history: diabetes, hypertension Medications and Allergies Past History Past Medical History: diabetes, hypertension, hyperlipidemia, hypothyroidism Past Surgical History: No surgical history Social history: lives with family Family history: diabetes, hypertension Medications and Allergies Allergies Allergy/AdvReac Type Severity Reaction Status Date / Time latex Allergy Unknown Verified 03/19/19 17:03 shellfish derived Allergy Anaphylaxis Verified 03/19/19 17:03 strawberry Allergy Anaphylaxis Verified 03/19/19 17:03 tomato Allergy Anaphylaxis Verified 03/19/19 17:03 nuts Allergy Anaphylaxis Uncoded 03/19/19 17:03 Home Medications Medication Instructions Recorded Confirmed Last Taken Type Albuterol Sulfate [Ventolin HFA] 2 puff IH Q4H PRN 01/29/14 06/11/21 02/01/15 History Levothyroxine (Nf) [Synthroid (Nf)] 275 mcg PO QAM 01/29/14 06/11/21 02/01/15 H istory Fluticasone/Salmeterol [Advair 1 each IH PRN PRN 01/26/15 06/11/21 02/02/15 10:00 History Diskus 250-50 mcg] Apixaban [Eliquis starter pack] 5 mg PO BID 09/13/19 06/11/21 Unknown History Insulin Aspart Prot/Insuln Asp 45 unit SUB-Q QAM 09/13/19 06/11/21 Unknown History [Novolog Mix 70-30 Flexpen] Insulin Glargine,Hum.rec.anlog 25 unit SQ HS 09/13/19 06/11/21 Unknown History [Basaglar Kwikpen U-100] Lovastatin [Altoprev] 20 mg PO DAILY 09/13/19 06/11/21 Unknown History Docusate Sodium [Colace CAP] 100 mg PO BID PRN #30 capsule 09/17/19 06/11/21 Unknown Rx Loratadine/Pseudoephedrine 1 each PO Q24HR #10 tablet 09/17/19 06/11/21 Unknown Rx [Claritin-D 24HR] Ondansetron [Zofran Odt] 4 mg PO Q8HR #20 tab.rapdis 09/17/19 06/11/21 Unknown Rx carvediloL [Coreg] 3.125 mg PO BID #60 tablet 09/17/19 06/11/21 Unknown Rx hydrALAZINE [Apresoline TAB] 25 mg PO Q8HR #90 tablet 09/17/19 06/11/21 Unknown Rx Active Meds: Active Medications Acetaminophen (Acetaminophen 325 Mg Tab) 650 mg PO Q4H PRN PRN Reason: Pain MILD(1-3)/Fever >100.5/MARTÍNEZ Albuterol (Albuterol 2.5 Mg/3 Ml Nebu) 2 mg IH Q4HRT PRN PRN Reason: Shortness Of Breath Lipase/Protease/Amylase (Lipase 10,500/Protease 25,000/Amylase 43,750 (Units) Dr Barahona) 1 each FEEDTUBE PRN PRN PRN Reason: For Clogged Feeding Tube Ascorbic Acid (Ascorbic Acid 500 Mg Tab) 500 mg PO BID [facility] Last Admin: 06/22/21 21:11 Dose: 500 mg Documented by: Atorvastatin Calcium (Atorvastatin 10 Mg Tab) 10 mg PO DAILY [facility] Last Admin: 06/23/21 10:35 Dose: 10 mg Documented by: Dextrose (Dextrose 50% In Water (25gm) 50 Ml Syringe) 50 ml IV Q30MIN PRN; Protocol PRN Reason: Hypoglycemia Last Admin: 06/20/21 12:16 Dose: 50 ml Documented by: Docusate Sodium (Docusate Sodium 100 Mg/10 Ml Oral Liqd) 100 mg PO BID PRN PRN Reason: Constipation Enoxaparin Sodium (Enoxaparin 40 Mg/0.4 Ml Inj) 40 mg SUB-Q DAILY [facility]ON[facility]; Protocol Last Admin: 06/23/21 10:36 Dose: 40 mg Documented by: Famotidine (Famotidine 20 Mg/2 Ml Inj) 10 mg IV BID [facility]ON[facility] Last Admin: 06/23/21 10:35 Dose: 10 mg Documented by: Fentanyl (Fentanyl 100 Mcg/2 Ml Inj) 50 mcg IV Q10MIN PRN PRN Reason: ANALGESIA Last Admin: 06/22/21 21:09 Dose: 50 mcg Documented by: Hydralazine HCl (Hydralazine 25 Mg Tab) 25 mg PO Q8HR [facility] Last Admin: 06/23/21 05:31 Dose: Not Given Documented by: Hydrophilic Ointment (Lip Therapy Vaseline) 1 applic TP Q2HR PRN PRN Reason: Dry Lips Fentanyl Citrate (Fentanyl Drip Premix) 2,000 mcg in 100 mls @ 8.2 mls/hr IV TITR [facility]ON[facility]; Protocol Last Admin: 06/23/21 11:24 Dose: 4 mcg/kg/hr, 32.8 mls/hr Documented by: NORepinephrine/NS 8 MG-250 ML (Norepinephrine/Ns 8 Mg-250 Ml (Double Conc)) 8 mg in 250 mls @ 3.75 mls/hr IV TITRATE [facility]; Protocol Last Admin: 06/23/21 12:46 Dose: 25 mcg/min, 46.875 mls/hr Documented by: Cefepime HCl (Cefepime/Ns 2 Gm/100 Ml) 2 gm in 100 mls @ 200 mls/hr IV Q24H [facility]; Protocol Last Admin: 06/23/21 08:54 Dose: 200 mls/hr Documented by: Vasopressin 20 unit/ Sodium (Chloride) 101 mls @ 9.09 mls/hr IV TITR [facility]; Protocol Last Admin: 06/23/21 10:35 Dose: 0.03 units/min, 9.09 mls/hr Documented by: Levetiracetam 500 mg/ Dextrose 105 mls @ 400 mls/hr IV Q12HR [facility] Last Admin: 06/23/21 11:25 Dose: 400 mls/hr Documented by: Sodium Chloride (Nacl 0.9% 500 Ml) 500 mls @ 1 mls/hr IV DIRECT PRN PRN Reason: ARTERIAL LINE FLUSH Sodium Bicarbonate 150 meq/ (Sterile Water) 1,150 mls @ 75 mls/hr IV DIRECT [facility] Stop: 06/25/21 04:19 Insulin Human Isoph/Insulin Regular (Insulin Nph/Regular 70/30 Inj) 20 unit SUB-Q BID [facility]ON[facility] Insulin Human Regular (Insulin Regular, Human 100 Units/1 Ml) 0 units SUB-Q Q6HR [facility]; Protocol Last Admin: 06/23/21 11:35 Dose: 4 units Documented by: Levothyroxine Sodium (Levothyroxine 100 Mcg Inj) 137.5 mcg IV DAILY@0600 [facility] Last Admin: 06/23/21 05:34 Dose: 137.5 mcg Documented by: Methylprednisolone Sodium Succinate (Methylprednisolone Sod Succinate 125 Mg/2 Ml Inj) 100 mg IV Q8H [facility] Last Admin: 06/23/21 08:55 Dose: 100 mg Documented by: Metoprolol Tartrate (Metoprolol Tartrate 5 Mg/5 Ml Inj) 5 mg IV Q6H PRN PRN Reason: HR > 100 Last Admin: 06/23/21 05:37 Dose: 5 mg Documented by: Midodrine (Midodrine 5 Mg Tab) 10 mg PO Q8H [facility] Last Admin: 06/23/21 06:00 Dose: 10 mg Documented by: Multi-Ingred Cream/Lotion/Oil/Oint (Mineral Oil/Petrolatum, White Ophth Oint 3.5 Gm) 1 applic OU Q4HR PRN PRN Reason: Dry Eye(s) Ondansetron HCl (Ondansetron 4 Mg/2 Ml Inj) 4 mg IV Q8H PRN PRN Reason: Nausea And Vomiting Last Admin: 06/20/21 22:15 Dose: 4 mg Documented by: Senna/Docusate Sodium (Sennosides/Docusate Sodium 8.6/50 Mg Tab) 1 tab FEEDTUBE BID [facility] Last Admin: 06/23/21 10:35 Dose: 1 tab Documented by: Simple Syrup (Simple Syrup 15 Ml) 15 ml FEEDTUBE PRN PRN PRN Reason: Hypoglycemia Simple Syrup (Simple Syrup 15 Ml) 30 ml FEEDTUBE PRN PRN PRN Reason: Hypoglycemia Sodium Bicarbonate (Sodium Bicarbonate 650 Mg Tab) 650 mg PO TID [facility] Last Admin: 06/23/21 08:55 Dose: 650 mg Documented by: Sodium Bicarbonate (Sodium Bicarbonate 325 Mg Tab) 325 mg FEEDTUBE PRN PRN PRN Reason: For Clogged Feeding Tube Sodium Chloride (Sodium Chloride 0.9% 10 Ml Flush Syringe) 10 ml IV BID [facility] Last Admin: 06/23/21 11:25 Dose: 10 ml Documented by: Sodium Chloride (Sodium Chloride 0.9% 10 Ml Flush Syringe) 10 ml IV PRN PRN PRN Reason: LINE FLUSH Zinc Sulfate (Zinc Sulfate 220 Mg Cap) 220 mg PO BID [facility] Last Admin: 06/23/21 10:35 Dose: 220 mg Documented by: Physical Examination - Vital Signs Vital Signs: Vital Signs Temp Pulse Resp BP Pulse Ox 98 F 82 16 144/82 97 06/07/21 19:12 06/07/21 19:12 06/07/21 19:12 06/07/21 19:12 06/07/21 19:12 - Constitutional General appearance: comfortable - EENT EENT: Present: PERRL, mucous membranes moist - Respiratory Respiratory: Present: lungs clear, rhonchi, stridor, other (intubated ) - Cardiovascular Cardiovascular: Present: regular rate, normal S1, normal S2 Extremities: Present: chronic venous stasis change, non-pitting edema - Gastrointestinal Gastrointestinal: Present: normoactive bowel sounds - Integumentary Integumentary: Present: normal - Neurologic Cranial nerve examination: PERRL, EOMI, intact, other (pupils reactive , EOMI , corneal intact ) Detailed motor examination: other (no movment to stimuli,planter is down going ) Results - Laboratory Findings CBC and BMP: 06/23/21 04:42 06/23/21 04:42 Abnormal Lab Findings: Abnormal Labs 06/07/21 06/07/21 06/07/21 19:11 19:11 19:11 WBC 11.5 H RBC Hgb Hct RDW Plt Count Lymph % (Auto) 6.5 L Lymph # (Auto) 0.8 L Seg Neutrophils % 89.9 H Seg Neuts % (Manual) Lymphocytes % (Manual) Nucleated RBC % Seg Neutrophils # 10.4 H Seg Neutrophils # Man Lymphocytes # (Manual) PT INR APTT D-Dimer 5334.05 H ABG pH POC ABG pCO2 POC ABG pO2 ABG pO2 ABG O2 Saturation ABG Base Excess ABG Oxyhemoglobin ABG Methemoglobin ABG Chloride ABG Glucose Oxyhemoglobin Carboxyhemoglobin Sodium Potassium Chloride Carbon Dioxide BUN 67 H Creatinine 4.8 H Glucose 244 H POC Glucose Hemoglobin A1c Calcium Phosphorus Magnesium Ferritin Lactate Dehydrogenase 796 H Troponin T 0.043 H C-Reactive Protein 19.60 H Total Protein 8.4 H Albumin 3.1 L Tmuxh-4-Lwiyjbdpv Rgbmb-6-Vqdpquprw Beta Globulins PEP Interpretation Triglycerides 209 H HDL Cholesterol 35 L Arterial Blood Glucose Arterial Blood Ionized Calcium Coronavirus (PCR) 06/07/21 06/07/21 06/08/21 19:11 19:11 03:04 WBC RBC Hgb Hct RDW Plt Count Lymph % (Auto) Lymph # (Auto) Seg Neutrophils % Seg Neuts % (Manual) Lymphocytes % (Manual) Nucleated RBC % Seg Neutrophils # Seg Neutrophils # Man Lymphocytes # (Manual) PT INR APTT D-Dimer ABG pH POC ABG pCO2 POC ABG pO2 ABG pO2 ABG O2 Saturation ABG Base Excess ABG Oxyhemoglobin ABG Methemoglobin ABG Chloride ABG Glucose Oxyhemoglobin Carboxyhemoglobin Sodium Potassium Chloride Carbon Dioxide BUN Creatinine Glucose POC Glucose Hemoglobin A1c 9.5 H Calcium Phosphorus Magnesium Ferritin 1230.0 H Lactate Dehydrogenase Troponin T 0.031 H D C-Reactive Protein Total Protein Albumin Ncign-3-Mklszqbuj Isvkj-3-Lpmqzzsat Beta Globulins PEP Interpretation Triglycerides HDL Cholesterol Arterial Blood Glucose Arterial Blood Ionized Calcium Coronavirus (PCR) 06/08/21 06/08/21 06/08/21 03:44 03:44 08:21 WBC 12.9 H RBC Hgb Hct RDW Plt Count Lymph % (Auto) Lymph # (Auto) Seg Neutrophils % Seg Neuts % (Manual) 95.0 H Lymphocytes % (Manual) 3.0 L Nucleated RBC % Seg Neutrophils # Seg Neutrophils # Man 12.3 H Lymphocytes # (Manual) 0.4 L PT INR APTT D-Dimer ABG pH POC ABG pCO2 POC ABG pO2 ABG pO2 ABG O2 Saturation ABG Base Excess ABG Oxyhemoglobin ABG Methemoglobin ABG Chloride ABG Glucose Oxyhemoglobin Carboxyhemoglobin Sodium Potassium Chloride Carbon Dioxide 20 L D BUN 68 H Creatinine 4.7 H Glucose 218 H POC Glucose 273 H Hemoglobin A1c Calcium Phosphorus Magnesium Ferritin Lactate Dehydrogenase Troponin T C-Reactive Protein Total Protein Albumin 3.4 L Gqrsd-0-Nnxdjcqdt Zknwn-9-Vahphaqxq Beta Globulins PEP Interpretation Triglycerides HDL Cholesterol Arterial Blood Glucose Arterial Blood Ionized Calcium Coronavirus (PCR) 06/08/21 06/08/21 06/08/21 08:30 11:00 17:29 WBC RBC Hgb Hct RDW Plt Count Lymph % (Auto) Lymph # (Auto) Seg Neutrophils % Seg Neuts % (Manual) Lymphocytes % (Manual) Nucleated RBC % Seg Neutrophils # Seg Neutrophils # Man Lymphocytes # (Manual) PT INR APTT D-Dimer ABG pH POC ABG pCO2 POC ABG pO2 ABG pO2 ABG O2 Saturation ABG Base Excess ABG Oxyhemoglobin ABG Methemoglobin ABG Chloride ABG Glucose Oxyhemoglobin Carboxyhemoglobin Sodium Potassium Chloride Carbon Dioxide BUN Creatinine Glucose POC Glucose 239 H 220 H Hemoglobin A1c Calcium Phosphorus Magnesium Ferritin Lactate Dehydrogenase Troponin T C-Reactive Protein Total Protein Albumin Pieze-7-[place]-8-Zipxtismm Beta Globulins PEP Interpretation Triglycerides HDL Cholesterol Arterial Blood Glucose Arterial Blood Ionized Calcium Coronavirus (PCR) Positive A 06/08/21 06/09/21 06/09/21 21:09 08:07 08:42 WBC 14.7 H RBC 5.28 H Hgb 14.9 H Hct 45.0 H D RDW Plt Count Lymph % (Auto) 4.9 L Lymph # (Auto) 0.7 L Seg Neutrophils % 90.0 H Seg Neuts % (Manual) Lymphocytes % (Manual) Nucleated RBC % Seg Neutrophils # 13.2 H Seg Neutrophils # Man Lymphocytes # (Manual) PT INR APTT D-Dimer ABG pH POC ABG pCO2 POC ABG pO2 ABG pO2 ABG O2 Saturation ABG Base Excess ABG Oxyhemoglobin ABG Methemoglobin ABG Chloride ABG Glucose Oxyhemoglobin Carboxyhemoglobin Sodium Potassium Chloride Carbon Dioxide BUN Creatinine Glucose POC Glucose 242 H 230 H Hemoglobin A1c Calcium Phosphorus Magnesium Ferritin Lactate Dehydrogenase Troponin T C-Reactive Protein Total Protein Albumin Ubgfj-8-Iusafaddu Xdpce-8-Qxkonwjdp Beta Globulins PEP Interpretation Triglycerides HDL Cholesterol Arterial Blood Glucose Arterial Blood Ionized Calcium Coronavirus (PCR) 06/09/21 06/09/21 06/09/21 08:42 12:05 12:19 WBC RBC Hgb Hct RDW Plt Count Lymph % (Auto) Lymph # (Auto) Seg Neutrophils % Seg Neuts % (Manual) Lymphocytes % (Manual) Nucleated RBC % Seg Neutrophils # Seg Neutrophils # Man Lymphocytes # (Manual) PT INR APTT D-Dimer ABG pH POC ABG pCO2 POC ABG pO2 71.4 L ABG pO2 ABG O2 Saturation ABG Base Excess ABG Oxyhemoglobin 92.9 L ABG Methemoglobin ABG Chloride 109.0 H ABG Glucose 287 H Oxyhemoglobin Carboxyhemoglobin 0.4 L Sodium Potassium Chloride Carbon Dioxide 17 L BUN 74 H Creatinine 3.7 H Glucose 259 H POC Glucose 274 H Hemoglobin A1c Calcium 8.3 L Phosphorus Magnesium Ferritin Lactate Dehydrogenase Troponin T C-Reactive Protein Total Protein Albumin Yxgoi-2-Qbeztjrti Bxzsy-7-Jcnqqmuee Beta Globulins PEP Interpretation Triglycerides HDL Cholesterol Arterial Blood Glucose 287 H Arterial Blood Ionized Calcium Coronavirus (PCR) 06/09/21 06/09/21 06/10/21 16:59 21:06 08:25 WBC RBC Hgb Hct RDW Plt Count Lymph % (Auto) Lymph # (Auto) Seg Neutrophils % Seg Neuts % (Manual) Lymphocytes % (Manual) Nucleated RBC % Seg Neutrophils # Seg Neutrophils # Man Lymphocytes # (Manual) PT INR APTT D-Dimer ABG pH POC ABG pCO2 POC ABG pO2 ABG pO2 ABG O2 Saturation ABG Base Excess ABG Oxyhemoglobin ABG Methemoglobin ABG Chloride ABG Glucose Oxyhemoglobin Carboxyhemoglobin Sodium Potassium Chloride Carbon Dioxide BUN Creatinine Glucose POC Glucose 268 H 263 H 280 H Hemoglobin A1c Calcium Phosphorus Magnesium Ferritin Lactate Dehydrogenase Troponin T C-Reactive Protein Total Protein Albumin [place]-0-[place] Dgpfe-3-Xslctodog Beta Globulins PEP Interpretation Triglycerides HDL Cholesterol Arterial Blood Glucose Arterial Blood Ionized Calcium Coronavirus (PCR) 06/10/21 06/10/21 06/10/21 12:07 15:38 21:04 WBC RBC Hgb Hct RDW Plt Count Lymph % (Auto) Lymph # (Auto) Seg Neutrophils % Seg Neuts % (Manual) Lymphocytes % (Manual) Nucleated RBC % Seg Neutrophils # Seg Neutrophils # Man Lymphocytes # (Manual) PT INR APTT D-Dimer ABG pH POC ABG pCO2 POC ABG pO2 ABG pO2 ABG O2 Saturation ABG Base Excess ABG Oxyhemoglobin ABG Methemoglobin ABG Chloride ABG Glucose Oxyhemoglobin Carboxyhemoglobin Sodium Potassium Chloride Carbon Dioxide BUN Creatinine Glucose POC Glucose 247 H 269 H 195 H Hemoglobin A1c Calcium Phosphorus Magnesium Ferritin Lactate Dehydrogenase Troponin T C-Reactive Protein Total Protein Albumin Hggxq-8-Jorfpzqvt Euhix-4-Cutcrsqjg Beta Globulins PEP Interpretation Triglycerides HDL Cholesterol Arterial Blood Glucose Arterial Blood Ionized Calcium Coronavirus (PCR) 06/10/21 06/10/21 06/10/21 23:14 23:14 23:14 WBC RBC Hgb Hct RDW 15.3 H Plt Count Lymph % (Auto) Lymph # (Auto) Seg Neutrophils % Seg Neuts % (Manual) 93.0 H Lymphocytes % (Manual) 2.0 L Nucleated RBC % 3.0 H Seg Neutrophils # Seg Neutrophils # Man 10.2 H Lymphocytes # (Manual) 0.2 L PT INR APTT D-Dimer ABG pH POC ABG pCO2 POC ABG pO2 ABG pO2 ABG O2 Saturation ABG Base Excess ABG Oxyhemoglobin ABG Methemoglobin ABG Chloride ABG Glucose Oxyhemoglobin Carboxyhemoglobin Sodium 148 H D Potassium Chloride 111.7 H Carbon Dioxide 20 L BUN 70 H Creatinine 3.2 H Glucose 186 H POC Glucose Hemoglobin A1c Calcium Phosphorus Magnesium Ferritin Lactate Dehydrogenase Troponin T C-Reactive Protein Total Protein Albumin 2.6 L Qhrak-9-Tixbcliyv 0.5 H Doitb-4-Lwtikjzkw 1.7 H Beta Globulins 0.6 H PEP Interpretation see below H Triglycerides HDL Cholesterol Arterial Blood Glucose Arterial Blood Ionized Calcium Coronavirus (PCR) 06/10/21 06/10/21 06/10/21 23:14 23:14 23:14 WBC RBC Hgb Hct RDW Plt Count Lymph % (Auto) Lymph # (Auto) Seg Neutrophils % Seg Neuts % (Manual) Lymphocytes % (Manual) Nucleated RBC % Seg Neutrophils # Seg Neutrophils # Man Lymphocytes # (Manual) PT INR APTT D-Dimer > 60575 H ABG pH POC ABG pCO2 POC ABG pO2 ABG pO2 ABG O2 Saturation ABG Base Excess ABG Oxyhemoglobin ABG Methemoglobin ABG Chloride ABG Glucose Oxyhemoglobin Carboxyhemoglobin Sodium Potassium Chloride Carbon Dioxide BUN Creatinine Glucose POC Glucose Hemoglobin A1c Calcium Phosphorus Magnesium 2.50 H Ferritin 1319.0 H Lactate Dehydrogenase 606 H Troponin T C-Reactive Protein Total Protein Albumin Ipnem-2-Tprltfrzo Uccjq-7-Xokfnlzol Beta Globulins PEP Interpretation Triglycerides HDL Cholesterol Arterial Blood Glucose Arterial Blood Ionized Calcium Coronavirus (PCR) 06/11/21 06/11/21 06/11/21 07:34 10:57 10:57 WBC RBC Hgb Hct RDW Plt Count Lymph % (Auto) Lymph # (Auto) Seg Neutrophils % Seg Neuts % (Manual) Lymphocytes % (Manual) Nucleated RBC % Seg Neutrophils # Seg Neutrophils # Man Lymphocytes # (Manual) PT INR APTT D-Dimer > 95430 H ABG pH POC ABG pCO2 POC ABG pO2 ABG pO2 ABG O2 Saturation ABG Base Excess ABG Oxyhemoglobin ABG Methemoglobin ABG Chloride ABG Glucose Oxyhemoglobin Carboxyhemoglobin Sodium Potassium Chloride Carbon Dioxide BUN Creatinine Glucose POC Glucose 169 H Hemoglobin A1c Calcium Phosphorus Magnesium Ferritin 1300.0 H Lactate Dehydrogenase Troponin T C-Reactive Protein Total Protein Albumin Qehjh-5-Vorsvzalc Rebbe-8-Uawghdysl Beta Globulins PEP Interpretation Triglycerides HDL Cholesterol Arterial Blood Glucose Arterial Blood Ionized Calcium Coronavirus (PCR) 06/11/21 06/11/21 06/11/21 10:58 10:58 11:49 WBC 11.3 H RBC Hgb Hct RDW 15.3 H Plt Count Lymph % (Auto) Lymph # (Auto) Seg Neutrophils % Seg Neuts % (Manual) 88.0 H Lymphocytes % (Manual) 6.0 L Nucleated RBC % Seg Neutrophils # Seg Neutrophils # Man 9.9 H Lymphocytes # (Manual) 0.7 L PT INR APTT D-Dimer ABG pH POC ABG pCO2 POC ABG pO2 ABG pO2 ABG O2 Saturation ABG Base Excess ABG Oxyhemoglobin ABG Methemoglobin ABG Chloride ABG Glucose Oxyhemoglobin Carboxyhemoglobin Sodium 150 H Potassium 3.4 L Chloride 114.8 H Carbon Dioxide 21 L BUN 65 H Creatinine 2.9 H Glucose 180 H POC Glucose 191 H Hemoglobin A1c Calcium Phosphorus Magnesium 2.50 H Ferritin Lactate Dehydrogenase Troponin T C-Reactive Protein 1.90 H Total Protein Albumin Iyxtc-2-Qutrgjjbb Vqnzj-1-Skbuqzume Beta Globulins PEP Interpretation Triglycerides HDL Cholesterol Arterial Blood Glucose Arterial Blood Ionized Calcium Coronavirus (PCR) 06/11/21 06/11/21 06/12/21 15:49 21:16 04:22 WBC RBC Hgb Hct RDW Plt Count Lymph % (Auto) Lymph # (Auto) Seg Neutrophils % Seg Neuts % (Manual) Lymphocytes % (Manual) Nucleated RBC % Seg Neutrophils # Seg Neutrophils # Man Lymphocytes # (Manual) PT INR APTT D-Dimer ABG pH 7.318 L POC ABG pCO2 POC ABG pO2 ABG pO2 51.5 L ABG O2 Saturation 86.9 L ABG Base Excess -5.6 L ABG Oxyhemoglobin ABG Methemoglobin ABG Chloride ABG Glucose Oxyhemoglobin 85.5 L Carboxyhemoglobin Sodium Potassium Chloride Carbon Dioxide BUN Creatinine Glucose POC Glucose 185 H 200 H Hemoglobin A1c Calcium Phosphorus Magnesium Ferritin Lactate Dehydrogenase Troponin T C-Reactive Protein Total Protein Albumin Itedl-8-Dyduochye Atppv-7-Kdegngdiw Beta Globulins PEP Interpretation Triglycerides HDL Cholesterol Arterial Blood Glucose Arterial Blood Ionized Calcium Coronavirus (PCR) 06/12/21 06/12/21 06/12/21 07:41 08:31 08:31 WBC 12.4 H RBC Hgb Hct RDW 15.3 H Plt Count Lymph % (Auto) 8.5 L Lymph # (Auto) 1.1 L Seg Neutrophils % 88.1 H Seg Neuts % (Manual) Lymphocytes % (Manual) Nucleated RBC % Seg Neutrophils # 10.9 H Seg Neutrophils # Man Lymphocytes # (Manual) PT INR APTT D-Dimer ABG pH POC ABG pCO2 POC ABG pO2 ABG pO2 ABG O2 Saturation ABG Base Excess ABG Oxyhemoglobin ABG Methemoglobin ABG Chloride ABG Glucose Oxyhemoglobin Carboxyhemoglobin Sodium 151 H Potassium Chloride 117.3 H Carbon Dioxide 21 L BUN 61 H Creatinine 2.5 H Glucose 165 H POC Glucose 165 H Hemoglobin A1c Calcium 8.3 L Phosphorus Magnesium Ferritin Lactate Dehydrogenase Troponin T C-Reactive Protein Total Protein Albumin Mgukb-6-Btiuyryef Pmouo-5-Hemvwpwnj Beta Globulins PEP Interpretation Triglycerides HDL Cholesterol Arterial Blood Glucose Arterial Blood Ionized Calcium Coronavirus (PCR) 06/12/21 06/12/21 06/12/21 08:31 10:32 15:47 WBC RBC Hgb Hct RDW Plt Count Lymph % (Auto) Lymph # (Auto) Seg Neutrophils % Seg Neuts % (Manual) Lymphocytes % (Manual) Nucleated RBC % Seg Neutrophils # Seg Neutrophils # Man Lymphocytes # (Manual) PT INR APTT D-Dimer ABG pH POC ABG pCO2 POC ABG pO2 ABG pO2 ABG O2 Saturation ABG Base Excess ABG Oxyhemoglobin ABG Methemoglobin ABG Chloride ABG Glucose Oxyhemoglobin Carboxyhemoglobin Sodium Potassium Chloride Carbon Dioxide BUN Creatinine Glucose POC Glucose 156 H 176 H Hemoglobin A1c Calcium Phosphorus Magnesium 2.50 H Ferritin Lactate Dehydrogenase Troponin T C-Reactive Protein Total Protein Albumin Prdqd-9-Jruxfcppa Yjljw-9-Ccxlehqkc Beta Globulins PEP Interpretation Triglycerides HDL Cholesterol Arterial Blood Glucose Arterial Blood Ionized Calcium Coronavirus (PCR) 06/12/21 06/13/21 06/13/21 21:50 07:42 07:42 WBC 14.1 H RBC Hgb Hct RDW 15.3 H Plt Count Lymph % (Auto) Lymph # (Auto) Seg Neutrophils % Seg Neuts % (Manual) 87.0 H Lymphocytes % (Manual) 7.0 L Nucleated RBC % 3.0 H Seg Neutrophils # Seg Neutrophils # Man 12.3 H Lymphocytes # (Manual) 1.0 L PT INR APTT D-Dimer ABG pH POC ABG pCO2 POC ABG pO2 ABG pO2 ABG O2 Saturation ABG Base Excess ABG Oxyhemoglobin ABG Methemoglobin ABG Chloride ABG Glucose Oxyhemoglobin Carboxyhemoglobin Sodium 151 H Potassium 3.5 L Chloride 116.0 H Carbon Dioxide BUN 61 H Creatinine 2.3 H Glucose 135 H POC Glucose 165 H Hemoglobin A1c Calcium Phosphorus Magnesium 2.50 H Ferritin Lactate Dehydrogenase Troponin T C-Reactive Protein Total Protein Albumin Qgxey-0-Ofsyptozl Mmnnf-5-Zaodorldc Beta Globulins PEP Interpretation Triglycerides HDL Cholesterol Arterial Blood Glucose Arterial Blood Ionized Calcium Coronavirus (PCR) 06/13/21 06/13/21 06/13/21 08:10 11:10 18:15 WBC RBC Hgb Hct RDW Plt Count Lymph % (Auto) Lymph # (Auto) Seg Neutrophils % Seg Neuts % (Manual) Lymphocytes % (Manual) Nucleated RBC % Seg Neutrophils # Seg Neutrophils # Man Lymphocytes # (Manual) PT INR APTT D-Dimer ABG pH POC ABG pCO2 POC ABG pO2 ABG pO2 ABG O2 Saturation ABG Base Excess ABG Oxyhemoglobin ABG Methemoglobin ABG Chloride ABG Glucose Oxyhemoglobin Carboxyhemoglobin Sodium Potassium Chloride Carbon Dioxide BUN Creatinine Glucose POC Glucose 118 H 139 H 179 H Hemoglobin A1c Calcium Phosphorus Magnesium Ferritin Lactate Dehydrogenase Troponin T C-Reactive Protein Total Protein Albumin Sqlkw-9-Vgciwuzyx Orsfq-1-Qvvrtkxlf Beta Globulins PEP Interpretation Triglycerides HDL Cholesterol Arterial Blood Glucose Arterial Blood Ionized Calcium Coronavirus (PCR) 06/13/21 06/13/21 06/14/21 21:54 23:27 04:42 WBC 12.8 H RBC Hgb Hct RDW 15.3 H Plt Count Lymph % (Auto) Lymph # (Auto) Seg Neutrophils % Seg Neuts % (Manual) 92.0 H Lymphocytes % (Manual) 1.0 L Nucleated RBC % 2.0 H Seg Neutrophils # Seg Neutrophils # Man 11.8 H Lymphocytes # (Manual) 0.1 L PT INR APTT D-Dimer ABG pH POC ABG pCO2 POC ABG pO2 ABG pO2 ABG O2 Saturation ABG Base Excess ABG Oxyhemoglobin ABG Methemoglobin ABG Chloride ABG Glucose Oxyhemoglobin Carboxyhemoglobin Sodium 152 H Potassium Chloride 116.3 H Carbon Dioxide 21 L BUN 67 H Creatinine 2.5 H Glucose 212 H POC Glucose 193 H Hemoglobin A1c Calcium Phosphorus Magnesium Ferritin Lactate Dehydrogenase Troponin T C-Reactive Protein Total Protein Albumin Oczlz-3-Oinnqylyh Yjyjr-5-Mzjomlxhs Beta Globulins PEP Interpretation Triglycerides HDL Cholesterol Arterial Blood Glucose Arterial Blood Ionized Calcium Coronavirus (PCR) 06/14/21 06/14/21 06/14/21 04:42 04:42 07:33 WBC RBC Hgb Hct RDW Plt Count Lymph % (Auto) Lymph # (Auto) Seg Neutrophils % Seg Neuts % (Manual) Lymphocytes % (Manual) Nucleated RBC % Seg Neutrophils # Seg Neutrophils # Man Lymphocytes # (Manual) PT INR APTT D-Dimer ABG pH POC ABG pCO2 POC ABG pO2 ABG pO2 ABG O2 Saturation ABG Base Excess ABG Oxyhemoglobin ABG Methemoglobin ABG Chloride ABG Glucose Oxyhemoglobin Carboxyhemoglobin Sodium 152 H Potassium Chloride 115.3 H Carbon Dioxide BUN 68 H Creatinine 2.5 H Glucose 188 H POC Glucose 173 H Hemoglobin A1c Calcium Phosphorus Magnesium 2.40 H Ferritin Lactate Dehydrogenase Troponin T C-Reactive Protein Total Protein Albumin Kvmed-2-Vustcrqfb Qoutn-4-Nvjlkrhlm Beta Globulins PEP Interpretation Triglycerides HDL Cholesterol Arterial Blood Glucose Arterial Blood Ionized Calcium Coronavirus (PCR) 0906/14/21 06/14/21 10:57 15:53 23:40 WBC RBC Hgb Hct RDW Plt Count Lymph % (Auto) Lymph # (Auto) Seg Neutrophils % Seg Neuts % (Manual) Lymphocytes % (Manual) Nucleated RBC % Seg Neutrophils # Seg Neutrophils # Man Lymphocytes # (Manual) PT INR APTT D-Dimer ABG pH POC ABG pCO2 POC ABG pO2 ABG pO2 ABG O2 Saturation ABG Base Excess ABG Oxyhemoglobin ABG Methemoglobin ABG Chloride ABG Glucose Oxyhemoglobin Carboxyhemoglobin Sodium Potassium Chloride Carbon Dioxide BUN Creatinine Glucose POC Glucose 195 H 226 H 235 H Hemoglobin A1c Calcium Phosphorus Magnesium Ferritin Lactate Dehydrogenase Troponin T C-Reactive Protein Total Protein Albumin Ukjhc-7-Mtdnqjwqj Ljbvh-7-Dwevxronu Beta Globulins PEP Interpretation Triglycerides HDL Cholesterol Arterial Blood Glucose Arterial Blood Ionized Calcium Coronavirus (PCR) 06/15/21 06/15/21 06/15/21 07:38 07:38 07:38 WBC 14.3 H RBC Hgb Hct RDW Plt Count Lymph % (Auto) Lymph # (Auto) Seg Neutrophils % Seg Neuts % (Manual) 95.0 H Lymphocytes % (Manual) 1.0 L Nucleated RBC % Seg Neutrophils # Seg Neutrophils # Man 13.6 H Lymphocytes # (Manual) 0.1 L PT INR APTT D-Dimer > 10907 H ABG pH POC ABG pCO2 POC ABG pO2 ABG pO2 ABG O2 Saturation ABG Base Excess ABG Oxyhemoglobin ABG Methemoglobin ABG Chloride ABG Glucose Oxyhemoglobin Carboxyhemoglobin Sodium 153 H Potassium 3.5 L Chloride 115.9 H Carbon Dioxide BUN 55 H Creatinine 2.1 H Glucose 213 H POC Glucose Hemoglobin A1c Calcium Phosphorus Magnesium Ferritin Lactate Dehydrogenase Troponin T C-Reactive Protein Total Protein Albumin Dylel-4-Tlbozhweq Axvww-5-Fvuiqagrh Beta Globulins PEP Interpretation Triglycerides HDL Cholesterol Arterial Blood Glucose Arterial Blood Ionized Calcium Coronavirus (PCR) 06/15/21 06/15/21 06/15/21 07:38 09:21 11:46 WBC RBC Hgb Hct RDW Plt Count Lymph % (Auto) Lymph # (Auto) Seg Neutrophils % Seg Neuts % (Manual) Lymphocytes % (Manual) Nucleated RBC % Seg Neutrophils # Seg Neutrophils # Man Lymphocytes # (Manual) PT INR APTT D-Dimer ABG pH POC ABG pCO2 POC ABG pO2 ABG pO2 ABG O2 Saturation ABG Base Excess ABG Oxyhemoglobin ABG Methemoglobin ABG Chloride ABG Glucose Oxyhemoglobin Carboxyhemoglobin Sodium Potassium Chloride Carbon Dioxide BUN Creatinine Glucose POC Glucose 202 H 233 H Hemoglobin A1c Calcium Phosphorus Magnesium Ferritin 1246.0 H Lactate Dehydrogenase Troponin T C-Reactive Protein Total Protein Albumin Aijhm-5-Qvzaorqev Ljwdm-9-Iebkjvphv Beta Globulins PEP Interpretation Triglycerides HDL Cholesterol Arterial Blood Glucose Arterial Blood Ionized Calcium Coronavirus (PCR) 06/15/21 06/16/21 06/16/21 17:32 05:44 07:48 WBC RBC Hgb Hct RDW Plt Count Lymph % (Auto) Lymph # (Auto) Seg Neutrophils % Seg Neuts % (Manual) Lymphocytes % (Manual) Nucleated RBC % Seg Neutrophils # Seg Neutrophils # Man Lymphocytes # (Manual) PT INR APTT D-Dimer ABG pH POC ABG pCO2 POC ABG pO2 ABG pO2 ABG O2 Saturation ABG Base Excess ABG Oxyhemoglobin ABG Methemoglobin ABG Chloride ABG Glucose Oxyhemoglobin Carboxyhemoglobin Sodium 154 H Potassium Chloride 117.2 H Carbon Dioxide BUN 54 H Creatinine 2.0 H Glucose 120 H POC Glucose 179 H 109 H Hemoglobin A1c Calcium Phosphorus Magnesium Ferritin Lactate Dehydrogenase Troponin T C-Reactive Protein Total Protein Albumin Zybid-6-Ifiqgapbd Swsqq-2-Wphlxxeln Beta Globulins PEP Interpretation Triglycerides HDL Cholesterol Arterial Blood Glucose Arterial Blood Ionized Calcium Coronavirus (PCR) 06/16/21 06/16/21 06/16/21 11:13 15:22 21:15 WBC RBC Hgb Hct RDW Plt Count Lymph % (Auto) Lymph # (Auto) Seg Neutrophils % Seg Neuts % (Manual) Lymphocytes % (Manual) Nucleated RBC % Seg Neutrophils # Seg Neutrophils # Man Lymphocytes # (Manual) PT INR APTT D-Dimer ABG pH POC ABG pCO2 POC ABG pO2 ABG pO2 ABG O2 Saturation ABG Base Excess ABG Oxyhemoglobin ABG Methemoglobin ABG Chloride ABG Glucose Oxyhemoglobin Carboxyhemoglobin Sodium Potassium Chloride Carbon Dioxide BUN Creatinine Glucose POC Glucose 222 H 218 H 250 H Hemoglobin A1c Calcium Phosphorus Magnesium Ferritin Lactate Dehydrogenase Troponin T C-Reactive Protein Total Protein Albumin Tchad-1-Obyrqswqm Rtkht-2-Dmdezrhrn Beta Globulins PEP Interpretation Triglycerides HDL Cholesterol Arterial Blood Glucose Arterial Blood Ionized Calcium Coronavirus (PCR) 06/17/21 06/17/21 06/17/21 07:55 09:35 09:35 WBC RBC Hgb Hct RDW 15.7 H Plt Count 99 L Lymph % (Auto) Lymph # (Auto) Seg Neutrophils % Seg Neuts % (Manual) Lymphocytes % (Manual) Nucleated RBC % Seg Neutrophils # Seg Neutrophils # Man Lymphocytes # (Manual) PT INR APTT D-Dimer ABG pH POC ABG pCO2 POC ABG pO2 ABG pO2 ABG O2 Saturation ABG Base Excess ABG Oxyhemoglobin ABG Methemoglobin ABG Chloride ABG Glucose Oxyhemoglobin Carboxyhemoglobin Sodium 148 H Potassium Chloride 113.3 H Carbon Dioxide BUN 45 H Creatinine 1.8 H Glucose 202 H POC Glucose 158 H Hemoglobin A1c Calcium Phosphorus Magnesium Ferritin Lactate Dehydrogenase Troponin T C-Reactive Protein Total Protein 6.0 L Albumin 2.8 L Qgiwo-0-Gugqfhrhx Ymdyx-9-Zdoabqvry Beta Globulins PEP Interpretation Triglycerides HDL Cholesterol Arterial Blood Glucose Arterial Blood Ionized Calcium Coronavirus (PCR) 06/17/21 06/17/21 06/18/21 12:32 16:46 06:00 WBC RBC Hgb Hct RDW Plt Count Lymph % (Auto) Lymph # (Auto) Seg Neutrophils % Seg Neuts % (Manual) Lymphocytes % (Manual) Nucleated RBC % Seg Neutrophils # Seg Neutrophils # Man Lymphocytes # (Manual) PT INR APTT D-Dimer 9804.08 H ABG pH POC ABG pCO2 POC ABG pO2 ABG pO2 ABG O2 Saturation ABG Base Excess ABG Oxyhemoglobin ABG Methemoglobin ABG Chloride ABG Glucose Oxyhemoglobin Carboxyhemoglobin Sodium Potassium Chloride Carbon Dioxide BUN Creatinine Glucose POC Glucose 227 H 203 H Hemoglobin A1c Calcium Phosphorus Magnesium Ferritin Lactate Dehydrogenase Troponin T C-Reactive Protein Total Protein Albumin Xjbxg-9-Idreoogsb Shiig-5-Muoiadpno Beta Globulins PEP Interpretation Triglycerides HDL Cholesterol Arterial Blood Glucose Arterial Blood Ionized Calcium Coronavirus (PCR) 06/18/21 06/18/21 06/18/21 06:00 08:00 10:10 WBC RBC Hgb Hct RDW Plt Count Lymph % (Auto) Lymph # (Auto) Seg Neutrophils % Seg Neuts % (Manual) Lymphocytes % (Manual) Nucleated RBC % Seg Neutrophils # Seg Neutrophils # Man Lymphocytes # (Manual) PT INR APTT D-Dimer ABG pH POC ABG pCO2 POC ABG pO2 ABG pO2 ABG O2 Saturation ABG Base Excess ABG Oxyhemoglobin ABG Methemoglobin ABG Chloride ABG Glucose Oxyhemoglobin Carboxyhemoglobin Sodium Potassium Chloride 110.1 H Carbon Dioxide BUN 39 H Creatinine 1.8 H Glucose 135 H POC Glucose 107 H Hemoglobin A1c Calcium Phosphorus Magnesium Ferritin 904.2 H Lactate Dehydrogenase Troponin T C-Reactive Protein Total Protein Albumin Qenxn-5-Taogengwl Zycbz-2-Wfpjbscep Beta Globulins PEP Interpretation Triglycerides HDL Cholesterol Arterial Blood Glucose Arterial Blood Ionized Calcium Coronavirus (PCR) 06/18/21 06/18/21 06/18/21 12:06 16:47 21:14 WBC RBC Hgb Hct RDW Plt Count Lymph % (Auto) Lymph # (Auto) Seg Neutrophils % Seg Neuts % (Manual) Lymphocytes % (Manual) Nucleated RBC % Seg Neutrophils # Seg Neutrophils # Man Lymphocytes # (Manual) PT INR APTT D-Dimer ABG pH POC ABG pCO2 POC ABG pO2 ABG pO2 ABG O2 Saturation ABG Base Excess ABG Oxyhemoglobin ABG Methemoglobin ABG Chloride ABG Glucose Oxyhemoglobin Carboxyhemoglobin Sodium Potassium Chloride Carbon Dioxide BUN Creatinine Glucose POC Glucose 160 H 236 H 186 H Hemoglobin A1c Calcium Phosphorus Magnesium Ferritin Lactate Dehydrogenase Troponin T C-Reactive Protein Total Protein Albumin Zysea-0-Okmgnbyrd Voxaw-3-Yikdsygnb Beta Globulins PEP Interpretation Triglycerides HDL Cholesterol Arterial Blood Glucose Arterial Blood Ionized Calcium Coronavirus (PCR) 06/19/21 06/19/21 06/20/21 15:46 15:46 08:04 WBC RBC Hgb Hct RDW 15.5 H Plt Count 73 L Lymph % (Auto) Lymph # (Auto) Seg Neutrophils % Seg Neuts % (Manual) Lymphocytes % (Manual) Nucleated RBC % Seg Neutrophils # Seg Neutrophils # Man Lymphocytes # (Manual) PT INR APTT D-Dimer ABG pH POC ABG pCO2 POC ABG pO2 ABG pO2 ABG O2 Saturation ABG Base Excess ABG Oxyhemoglobin ABG Methemoglobin ABG Chloride ABG Glucose Oxyhemoglobin Carboxyhemoglobin Sodium 146 H Potassium Chloride 108.9 H Carbon Dioxide BUN 38 H Creatinine 1.7 H Glucose POC Glucose 52 L Hemoglobin A1c Calcium Phosphorus Magnesium Ferritin Lactate Dehydrogenase Troponin T C-Reactive Protein Total Protein Albumin Xhdxk-2-Pxsauzqzo Wilhq-5-Pycefogei Beta Globulins PEP Interpretation Triglycerides HDL Cholesterol Arterial Blood Glucose Arterial Blood Ionized Calcium Coronavirus (PCR) 06/20/21 06/20/21 06/20/21 11:58 15:16 17:54 WBC RBC Hgb Hct RDW Plt Count Lymph % (Auto) Lymph # (Auto) Seg Neutrophils % Seg Neuts % (Manual) Lymphocytes % (Manual) Nucleated RBC % Seg Neutrophils # Seg Neutrophils # Man Lymphocytes # (Manual) PT INR APTT D-Dimer ABG pH POC ABG pCO2 POC ABG pO2 ABG pO2 ABG O2 Saturation ABG Base Excess ABG Oxyhemoglobin ABG Methemoglobin ABG Chloride ABG Glucose Oxyhemoglobin Carboxyhemoglobin Sodium 146 H Potassium Chloride 108.2 H Carbon Dioxide BUN 37 H Creatinine 1.7 H Glucose 131 H POC Glucose 58 L 219 H Hemoglobin A1c Calcium Phosphorus Magnesium Ferritin Lactate Dehydrogenase Troponin T C-Reactive Protein Total Protein Albumin Sacvi-7-Uvfydjujl Gadou-0-Cpysenrxg Beta Globulins PEP Interpretation Triglycerides HDL Cholesterol Arterial Blood Glucose Arterial Blood Ionized Calcium Coronavirus (PCR) 06/20/21 06/21/21 06/21/21 21:58 06:00 07:41 WBC RBC Hgb Hct RDW Plt Count Lymph % (Auto) Lymph # (Auto) Seg Neutrophils % Seg Neuts % (Manual) Lymphocytes % (Manual) Nucleated RBC % Seg Neutrophils # Seg Neutrophils # Man Lymphocytes # (Manual) PT INR APTT D-Dimer ABG pH POC ABG pCO2 POC ABG pO2 ABG pO2 ABG O2 Saturation ABG Base Excess ABG Oxyhemoglobin ABG Methemoglobin ABG Chloride ABG Glucose Oxyhemoglobin Carboxyhemoglobin Sodium Potassium Chloride Carbon Dioxide BUN 42 H Creatinine 2.0 H Glucose 225 H POC Glucose 180 H 204 H Hemoglobin A1c Calcium Phosphorus Magnesium Ferritin Lactate Dehydrogenase Troponin T C-Reactive Protein Total Protein Albumin Ldmzk-5-Edpzomerq Akcoy-4-Sspswpuvy Beta Globulins PEP Interpretation Triglycerides HDL Cholesterol Arterial Blood Glucose Arterial Blood Ionized Calcium Coronavirus (PCR) 06/21/21 06/21/21 06/21/21 11:01 11:20 15:57 WBC RBC Hgb Hct RDW Plt Count Lymph % (Auto) Lymph # (Auto) Seg Neutrophils % Seg Neuts % (Manual) Lymphocytes % (Manual) Nucleated RBC % Seg Neutrophils # Seg Neutrophils # Man Lymphocytes # (Manual) PT INR APTT D-Dimer ABG pH POC ABG pCO2 POC ABG pO2 58.9 L ABG pO2 ABG O2 Saturation ABG Base Excess ABG Oxyhemoglobin 87.4 L ABG Methemoglobin ABG Chloride ABG Glucose 212 H Oxyhemoglobin Carboxyhemoglobin Sodium Potassium Chloride Carbon Dioxide BUN Creatinine Glucose POC Glucose 194 H 171 H Hemoglobin A1c Calcium Phosphorus Magnesium Ferritin Lactate Dehydrogenase Troponin T C-Reactive Protein Total Protein Albumin Ifcng-1-Anysmwtih Dupug-6-Hhdrbukqa Beta Globulins PEP Interpretation Triglycerides HDL Cholesterol Arterial Blood Glucose 212 H Arterial Blood Ionized Calcium 4.5 L Coronavirus (PCR) 06/21/21 06/21/21 06/21/21 17:52 17:55 22:09 WBC RBC Hgb Hct RDW Plt Count Lymph % (Auto) Lymph # (Auto) Seg Neutrophils % Seg Neuts % (Manual) Lymphocytes % (Manual) Nucleated RBC % Seg Neutrophils # Seg Neutrophils # Man Lymphocytes # (Manual) PT INR APTT D-Dimer ABG pH 7.316 L POC ABG pCO2 51.7 H POC ABG pO2 62.3 L ABG pO2 ABG O2 Saturation ABG Base Excess ABG Oxyhemoglobin 88.7 L ABG Methemoglobin ABG Chloride ABG Glucose 197 H Oxyhemoglobin Carboxyhemoglobin Sodium Potassium Chloride Carbon Dioxide BUN Creatinine Glucose POC Glucose 153 H 178 H Hemoglobin A1c Calcium Phosphorus Magnesium Ferritin Lactate Dehydrogenase Troponin T C-Reactive Protein Total Protein Albumin Qhbqv-0-Jkozqxglx Yivja-8-Vthqertic Beta Globulins PEP Interpretation Triglycerides HDL Cholesterol Arterial Blood Glucose 197 H Arterial Blood Ionized Calcium Coronavirus (PCR) 06/22/21 06/22/21 06/22/21 07:30 07:43 11:47 WBC RBC Hgb Hct RDW Plt Count Lymph % (Auto) Lymph # (Auto) Seg Neutrophils % Seg Neuts % (Manual) Lymphocytes % (Manual) Nucleated RBC % Seg Neutrophils # Seg Neutrophils # Man Lymphocytes # (Manual) PT INR APTT D-Dimer ABG pH POC ABG pCO2 POC ABG pO2 ABG pO2 ABG O2 Saturation ABG Base Excess ABG Oxyhemoglobin ABG Methemoglobin ABG Chloride ABG Glucose Oxyhemoglobin Carboxyhemoglobin Sodium Potassium Chloride Carbon Dioxide 21 L BUN 55 H Creatinine 2.8 H Glucose 219 H POC Glucose 235 H 222 H Hemoglobin A1c Calcium Phosphorus Magnesium Ferritin Lactate Dehydrogenase Troponin T C-Reactive Protein Total Protein Albumin Pcoar-4-Zmvqebjsz Umxxz-4-Ftpxjcphk Beta Globulins PEP Interpretation Triglycerides HDL Cholesterol Arterial Blood Glucose Arterial Blood Ionized Calcium Coronavirus (PCR) 06/22/21 06/22/2121 11:50 12:10 15:15 WBC RBC Hgb Hct RDW Plt Count Lymph % (Auto) Lymph # (Auto) Seg Neutrophils % Seg Neuts % (Manual) Lymphocytes % (Manual) Nucleated RBC % Seg Neutrophils # Seg Neutrophils # Man Lymphocytes # (Manual) PT INR APTT D-Dimer ABG pH 7.273 L POC ABG pCO2 POC ABG pO2 56.8 L 56.8 L ABG pO2 58.0 L ABG O2 Saturation 85.7 L ABG Base Excess -4.9 L ABG Oxyhemoglobin 86.7 L 86.7 L ABG Methemoglobin ABG Chloride ABG Glucose Oxyhemoglobin 84.1 L Carboxyhemoglobin Sodium Potassium Chloride Carbon Dioxide BUN Creatinine Glucose POC Glucose Hemoglobin A1c Calcium Phosphorus Magnesium Ferritin Lactate Dehydrogenase Troponin T C-Reactive Protein Total Protein Albumin Ichya-0-Yyfwzgwjr Mbnps-5-Yeumktxei Beta Globulins PEP Interpretation Triglycerides HDL Cholesterol Arterial Blood Glucose Arterial Blood Ionized Calcium Coronavirus (PCR) 06/22/21 06/22/21 06/22/21 17:28 21:22 23:35 WBC RBC Hgb Hct RDW Plt Count Lymph % (Auto) Lymph # (Auto) Seg Neutrophils % Seg Neuts % (Manual) Lymphocytes % (Manual) Nucleated RBC % Seg Neutrophils # Seg Neutrophils # Man Lymphocytes # (Manual) PT INR APTT D-Dimer ABG pH 7.217 L POC ABG pCO2 POC ABG pO2 ABG pO2 61.7 L ABG O2 Saturation 87.3 L ABG Base Excess -6.0 L ABG Oxyhemoglobin ABG Methemoglobin ABG Chloride ABG Glucose Oxyhemoglobin 85.4 L Carboxyhemoglobin Sodium Potassium Chloride Carbon Dioxide BUN Creatinine Glucose POC Glucose 221 H 204 H Hemoglobin A1c Calcium Phosphorus Magnesium Ferritin Lactate Dehydrogenase Troponin T C-Reactive Protein Total Protein Albumin Xfdse-8-Oiqhrghdo Gxvcs-5-Cclddhvzi Beta Globulins PEP Interpretation Triglycerides HDL Cholesterol Arterial Blood Glucose Arterial Blood Ionized Calcium Coronavirus (PCR) 06/23/21 06/23/21 06/23/21 04:42 04:42 04:42 WBC 19.0 H RBC 5.04 H Hgb Hct 44.5 H RDW 16.6 H Plt Count 61 L Lymph % (Auto) Lymph # (Auto) Seg Neutrophils % Seg Neuts % (Manual) Lymphocytes % (Manual) Nucleated RBC % Seg Neutrophils # Seg Neutrophils # Man Lymphocytes # (Manual) PT INR APTT D-Dimer 6308.27 H ABG pH POC ABG pCO2 POC ABG pO2 ABG pO2 ABG O2 Saturation ABG Base Excess ABG Oxyhemoglobin ABG Methemoglobin ABG Chloride ABG Glucose Oxyhemoglobin Carboxyhemoglobin Sodium Potassium 6.3 H* D Chloride Carbon Dioxide 21 L BUN 72 H Creatinine 4.6 H D Glucose 225 H POC Glucose Hemoglobin A1c Calcium 8.0 L Phosphorus Magnesium Ferritin Lactate Dehydrogenase Troponin T C-Reactive Protein Total Protein Albumin Trams-1-Mdidcjayh Ljnsa-1-Igveessjy Beta Globulins PEP Interpretation Triglycerides HDL Cholesterol Arterial Blood Glucose Arterial Blood Ionized Calcium Coronavirus (PCR) 06/23/21 06/23/21 06/23/21 04:42 04:42 05:33 WBC RBC Hgb Hct RDW Plt Count Lymph % (Auto) Lymph # (Auto) Seg Neutrophils % Seg Neuts % (Manual) Lymphocytes % (Manual) Nucleated RBC % Seg Neutrophils # Seg Neutrophils # Man Lymphocytes # (Manual) PT INR APTT D-Dimer ABG pH POC ABG pCO2 POC ABG pO2 ABG pO2 ABG O2 Saturation ABG Base Excess ABG Oxyhemoglobin ABG Methemoglobin ABG Chloride ABG Glucose Oxyhemoglobin Carboxyhemoglobin Sodium Potassium Chloride Carbon Dioxide BUN Creatinine Glucose POC Glucose 227 H Hemoglobin A1c Calcium 7.9 L Phosphorus 8.30 H Magnesium Ferritin 1496.0 H Lactate Dehydrogenase Troponin T C-Reactive Protein 4.40 H Total Protein Albumin Bzlnd-3-Ekdypcvyt Xnsdq-5-Nmzjhltzu Beta Globulins PEP Interpretation Triglycerides HDL Cholesterol Arterial Blood Glucose Arterial Blood Ionized Calcium Coronavirus (PCR) 06/23/21 06/23/21 06/23/21 11:00 11:31 Unknown WBC RBC Hgb Hct RDW Plt Count Lymph % (Auto) Lymph # (Auto) Seg Neutrophils % Seg Neuts % (Manual) Lymphocytes % (Manual) Nucleated RBC % Seg Neutrophils # Seg Neutrophils # Man Lymphocytes # (Manual) PT 24.6 H INR 2.18 H APTT 43.8 H D-Dimer ABG pH 7.177 L POC ABG pCO2 58.9 H POC ABG pO2 60.2 L ABG pO2 ABG O2 Saturation ABG Base Excess ABG Oxyhemoglobin 83.5 L ABG Methemoglobin 1.8 H ABG Chloride ABG Glucose Oxyhemoglobin Carboxyhemoglobin Sodium Potassium Chloride Carbon Dioxide BUN Creatinine Glucose POC Glucose 207 H Hemoglobin A1c Calcium Phosphorus Magnesium Ferritin Lactate Dehydrogenase Troponin T C-Reactive Protein Total Protein Albumin Plknl-5-Ejpznvbgt Vrupx-8-Nezcxnjll Beta Globulins PEP Interpretation Triglycerides HDL Cholesterol Arterial Blood Glucose Arterial Blood Ionized Calcium Coronavirus (PCR) Assessment and Plan Assessment and Plan Assessment and plan: # Witnessed seizure today --started on Keppra 500 mg Iv bid she is with renal failure Cr#4.6 - on fentanyl [facility] [place] - Intubated -CT brain is pending -EEG showed slowing full report to follow #Severe COVID-19 breakthrough infection #COVID-19 pneumonia #Severe ARDS -patient vaccinated -continue isolation precautions -inflammatory markers q3d -Transition from BiPAP to mechanical ventilation due to worsening respiratory status. -completed 10 days of steroids; continue IV Solu-Medrol 100 mg every 8 hours given worsening respiratory status (started on 06/21/2021) -continue vitamin C, zinc and vitamin D #Acute hypoxic respiratory failure-worsening Transitioned from BiPAP to mechanical ventilation -Pending repeat ABG in the evening; low threshold for intubation -continue nebulized treatments -Pulmonary following, recs appreciated #Acute encephalopathy -Delirium precautions -Discontinued nightly Seroquel and Xanax given altered mentation #Hypernatremia -likely secondary to poor p.o. intake -D5W @75 cc/hr -continue 400 cc every 4 hour free water flushes by mouth #Acute versus chronic renal failure -unknown baseline -avoid nephrotoxins -Nephrology managing #Insulin-dependent type 2 diabetes #Hypoglycemia -Glucose low as 58 -Discontinue D5W infusion. -Decreased Humulin to 15 units every 12 in the setting of patient being n.p.o. yet receiving high-dose IV steroids -continue sliding scale insulin -goal glucose 140-180 #Elevated troponin -resolved, likely type II #Hypertension -Controlled -continue BB and hydralazine at current doses #Hypothyroidism -Transitioned p.o. levothyroxine to IV levothyroxine 200 mcg #Protein calorie malnutrition -Nutrition consult #History of DVT -Discontinued Eliquis. Started Lovenox 1 mg/KG twice daily for therapeutic anticoagulation The high probability of a clinically significant, sudden or life threatening deterioration of the [neuro,resp, ID, renal] system(s) required my full and direct attention, intervention and personal management. The aggregate critical care time was [60] minutes. This time is in addition to time spent performing reported procedures but includes the following: [x] Data Review and interpretation [x] Patient assessment and monitoring of vital signs [x] Documentation [x] Medication orders and management Plan 1- Agree on stop Eliquis 2- CT brain when possible 3- Start Vimpat 100 mg Ib BID 4- Stop Keppra due to renal failure 5- ZEE is in process no sign of status will follow
[2021-06-23] MEDS: ASCORBIC ACID 500 MG TAB PO SCH ×2 (14:17→21:41)
[2021-06-23] MEDS: SODIUM BICARBONATE 150 MEQ in WATER FOR INJECTION (PF) 1,000 ML IV SCH (14:17)
--- NOTE | 2021-06-23 14:27 | Progress Note ---
Assessment and Plan Cultures: SARS CoV2 PCR: positive 06/08/2021 blood culture: No growth Urine culture: skin ade. A/P: 76-year-old female with diabetes, hypertension, history of liver abscess, Klebsiella bacteremia admitted with fever, chills, shortness of breath: #Bilateral pneumonia: secondary to COVID-19. Unvaccinated. Chest x-ray revealed bilateral patchy multifocal pneumonia, CT chest, abdomen pelvis revealed no pulmonary embolism, showed bilateral pneumonia, no acute abnormality in the abdomen or pelvis. 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 Recs: Currently on high-dose methylprednisone Completed Remdesivir prophylactic anticoagulation based on d-dimer per hospital protocol Agree with empiric cefepime, started vancomycin pending blood culture results Follow-up blood cultures Ordered urine and tracheal aspirate cultures trend ferritin, d-dimer, CRP every 2-3 days Radha Butler MD [facility] ([facility] O: [phone] F: [phone] Subjective Date of service: 06/23/21 Principal diagnosis: ARDS; Pneumonia; COVID-19 virus infection; TREMAINE; DM II; Morbid obesity Interval history: Febrile to 101.4 with a heart rate of 130. White count 19, which is worsened from the previous couple days. Blood cultures currently pending, obtained this morning. We are reconsulted today. Remains on the vent. Imaging personally reviewed: Chest x-ray: Worsening bilateral airspace disease Dopplers: No evidence of DVT bilaterally. Objective - Exam Narrative Exam: Physical exam deferred to reduce risk of transmission of COVID-19. Please refer to primary team's note. - Constitutional Vitals: Vital Signs Temp Pulse Resp BP Pulse Ox 97.2 F L 130 H 30 H 94/53 88 06/23/21 13:34 06/23/21 13:04 06/23/21 06:45 06/23/21 14:18 06/23/21 13:04 Temperature -Last 24 Hours Temperature 97.2 F Temperature 101.4 F Temperature 100.8 F Temperature 100.4 F Temperature 100.5 F - Labs CBC & Chem 7: 06/23/21 04:42 06/23/21 04:42 Labs: Abnormal lab results 06/22/21 06/22/2121 Range/Units 15:15 17:28 21:22 WBC (4.5-11.0) K/mm3 RBC (3.65-5.03) M/mm3 Hct (30.3-42.9) % RDW (13.2-15.2) % Plt Count (140-440) K/mm3 PT (12.2-14.9) Sec. INR (0.87-1.13) APTT (24.2-36.6) Sec. D-Dimer (0-234) ng/mlDDU ABG pH 7.273 L 7.217 L (7.350-7.450) pH Units POC ABG pCO2 (32.0-48.0) mmHg POC ABG pO2 (83-108) mmHg ABG pO2 58.0 L 61.7 L (80.0-90.0) mm Hg ABG O2 Saturation 85.7 L 87.3 L (95.0-99.0) % ABG Base Excess -4.9 L -6.0 L (-2.0-3.0) mmol/L ABG Oxyhemoglobin (94-98) ABG Methemoglobin (0.0-1.5) Oxyhemoglobin 84.1 L 85.4 L (95.0-99.0) % Potassium (3.6-5.0) mmol/L Carbon Dioxide (22-30) mmol/L BUN (7-17) mg/dL Creatinine (0.6-1.2) mg/dL Glucose (65-100) mg/dL POC Glucose 221 H (70-105) mg/dL Calcium (8.4-10.2) mg/dL Phosphorus (2.5-4.5) mg/dL Ferritin (10.0-200.0) ng/mL C-Reactive Protein (0.00-1.30) mg/dL 06/22/21 06/23/21 06/23/21 Range/Units 23:35 04:42 04:42 WBC 19.0 H (4.5-11.0) K/mm3 RBC 5.04 H (3.65-5.03) M/mm3 Hct 44.5 H (30.3-42.9) % RDW 16.6 H (13.2-15.2) % Plt Count 61 L (140-440) K/mm3 PT (12.2-14.9) Sec. INR (0.87-1.13) APTT (24.2-36.6) Sec. D-Dimer (0-234) ng/mlDDU ABG pH (7.350-7.450) pH Units POC ABG pCO2 (32.0-48.0) mmHg POC ABG pO2 (83-108) mmHg ABG pO2 (80.0-90.0) mm Hg ABG O2 Saturation (95.0-99.0) % ABG Base Excess (-2.0-3.0) mmol/L ABG Oxyhemoglobin (94-98) ABG Methemoglobin (0.0-1.5) Oxyhemoglobin (95.0-99.0) % Potassium 6.3 H* D (3.6-5.0) mmol/L Carbon Dioxide 21 L (22-30) mmol/L BUN 72 H (7-17) mg/dL Creatinine 4.6 H D (0.6-1.2) mg/dL Glucose 225 H (65-100) mg/dL POC Glucose 204 H (70-105) mg/dL Calcium 8.0 L (8.4-10.2) mg/dL Phosphorus (2.5-4.5) mg/dL Ferritin (10.0-200.0) ng/mL C-Reactive Protein (0.00-1.30) mg/dL 06/23/21 06/23/21 06/23/21 Range/Units 04:42 04:42 04:42 WBC (4.5-11.0) K/mm3 RBC (3.65-5.03) M/mm3 Hct (30.3-42.9) % RDW (13.2-15.2) % Plt Count (140-440) K/mm3 PT (12.2-14.9) Sec. INR (0.87-1.13) APTT (24.2-36.6) Sec. D-Dimer 6308.27 H (0-234) ng/mlDDU ABG pH (7.350-7.450) pH Units POC ABG pCO2 (32.0-48.0) mmHg POC ABG pO2 (83-108) mmHg ABG pO2 (80.0-90.0) mm Hg ABG O2 Saturation (95.0-99.0) % ABG Base Excess (-2.0-3.0) mmol/L ABG Oxyhemoglobin (94-98) ABG Methemoglobin (0.0-1.5) Oxyhemoglobin (95.0-99.0) % Potassium (3.6-5.0) mmol/L Carbon Dioxide (22-30) mmol/L BUN (7-17) mg/dL Creatinine (0.6-1.2) mg/dL Glucose (65-100) mg/dL POC Glucose (70-105) mg/dL Calcium 7.9 L (8.4-10.2) mg/dL Phosphorus 8.30 H (2.5-4.5) mg/dL Ferritin 1496.0 H (10.0-200.0) ng/mL C-Reactive Protein 4.40 H (0.00-1.30) mg/dL 06/23/21 06/23/21 06/23/21 Range/Units 05:33 11:00 11:31 WBC (4.5-11.0) K/mm3 RBC (3.65-5.03) M/mm3 Hct (30.3-42.9) % RDW (13.2-15.2) % Plt Count (140-440) K/mm3 PT (12.2-14.9) Sec. INR (0.87-1.13) APTT (24.2-36.6) Sec. D-Dimer (0-234) ng/mlDDU ABG pH 7.177 L (7.350-7.450) pH Units POC ABG pCO2 58.9 H (32.0-48.0) mmHg POC ABG pO2 60.2 L (83-108) mmHg ABG pO2 (80.0-90.0) mm Hg ABG O2 Saturation (95.0-99.0) % ABG Base Excess (-2.0-3.0) mmol/L ABG Oxyhemoglobin 83.5 L (94-98) ABG Methemoglobin 1.8 H (0.0-1.5) Oxyhemoglobin (95.0-99.0) % Potassium (3.6-5.0) mmol/L Carbon Dioxide (22-30) mmol/L BUN (7-17) mg/dL Creatinine (0.6-1.2) mg/dL Glucose (65-100) mg/dL POC Glucose 227 H 207 H (70-105) mg/dL Calcium (8.4-10.2) mg/dL Phosphorus (2.5-4.5) mg/dL Ferritin (10.0-200.0) ng/mL C-Reactive Protein (0.00-1.30) mg/dL 06/23/21 Range/Units Unknown WBC (4.5-11.0) K/mm3 RBC (3.65-5.03) M/mm3 Hct (30.3-42.9) % RDW (13.2-15.2) % Plt Count (140-440) K/mm3 PT 24.6 H (12.2-14.9) Sec. INR 2.18 H (0.87-1.13) APTT 43.8 H (24.2-36.6) Sec. D-Dimer (0-234) ng/mlDDU ABG pH (7.350-7.450) pH Units POC ABG pCO2 (32.0-48.0) mmHg POC ABG pO2 (83-108) mmHg ABG pO2 (80.0-90.0) mm Hg ABG O2 Saturation (95.0-99.0) % ABG Base Excess (-2.0-3.0) mmol/L ABG Oxyhemoglobin (94-98) ABG Methemoglobin (0.0-1.5) Oxyhemoglobin (95.0-99.0) % Potassium (3.6-5.0) mmol/L Carbon Dioxide (22-30) mmol/L BUN (7-17) mg/dL Creatinine (0.6-1.2) mg/dL Glucose (65-100) mg/dL POC Glucose (70-105) mg/dL Calcium (8.4-10.2) mg/dL Phosphorus (2.5-4.5) mg/dL Ferritin (10.0-200.0) ng/mL C-Reactive Protein (0.00-1.30) mg/dL
[2021-06-23] MEDS ORDERED: VANCOMYCIN PHARMACY TO DOSE IV SCH (15:00)
[2021-06-23 15:26] LABS: Calcium 6.3 mg/dL (8.4-10.2)
--- NOTE | 2021-06-23 15:30 | Progress Note ---
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 Neuro: Seizure, acute metabolic encephalopathy -Neurology consulted, appreciate recommendations -CT head pending -Witnessed seizure this morning which was aborted with Ativan -Patient started on Vimpat given renal function -Aspiration/seizure precautions -Sedated with fentanyl -RASS goal negative 0 to -3 -Bilateral soft wrist restraints in place for safety -Avoid delirium -Maintenance of sleep-wake cycle Cardio: ST, hypotension, CAD -Vasopressor support with Levophed and vasopressin -MAP goal greater than 65 -Blood pressure monitoring via A-line placed today -Hold antihypertensive at this time -Continue home statin -Continue midodrine Respiratory: Acute hypoxic respiratory failure, ARDS 2/2 COVID 19 PNA -CCM consulted, appreciate recommendations -S/p BiPAP and OptiFlow -06/22 intubated with 7.50 ETT at 23 at the lips -A.m. vent settings: AC rate 30, TV 450, PEEP 14, 100% FiO2 -See RT notes for titration -PEEP increased to 16 for persistent hypoxia -VAP bundle -Continue SPO2 monitoring -Serial ABGs and CXR -06/23 CXR and ABG reviewed GI: MO, protein calorie malnutrition -Ntr consult for TF -NGT placed -24 hour -366.4 -BR: Senokot -PPI -Free water flush 400 ml every 4 : CKD stage III, hyperkalemia, metabolic acidosis, hyperphosphatemia -Nephrology consulted, appreciate recommendations -Hyperkalemia treated with medical management -Patient placed on a bicarb drip -Hemodialysis per nephrology Endo: h/o insulin-dependent diabetes, hypothyroidism -Home levothyroxine transition to IV -Accu-Cheks every 6 -SSI -Goal glucose 1 40-1 80 while critically ill -Long-acting insulin, titrate as needed -Avoid hypoglycemia Heme: h/o DVT, coagulopathy of COVID, thrombocytopenia -Patient was on Eliquis which was discontinued and converted to therapeutic Lovenox -Therapeutic Lovenox converted to prophylaxis Lovenox renally dosed -Bilateral lower extremity Doppler ultrasound completed-> no acute DVT -SCDs to bilateral directions while in bed -Trend CBC -Transfuse for hemoglobin less than 7 ID: Sepsis, COVID-19 pneumonia -Infectious disease consulted, appreciate recommendations -S/p steroids for 10 days -Started on stress dose steroids Solu-Medrol 80 mg every 8 on 06/21 -Vitamin C/zinc/vitamin D -contact/droplet isolation precautions -Trend COVID-19 inflammatory markers -S/p remdesivir -Currently on cefepime and vancomycin The high probability of a clinically significant, sudden or life threatening deterioration of the [multi] system(s) required my full and direct attention, intervention and personal management. The aggregate critical care time was [60] minutes. 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 Of note patient was vaccinated with Memo and Memo vaccine in December 2020. Upon presentation to the emergency room patient was in respiratory distress and hypoxic. She was placed on BiPAP therapy with improvement. CXR showed bilateral multifocal airspace disease. Patient was admitted to the hospitalist service with severe sepsis, COVID-19 PUI, acute hypoxic respiratory failure, acute kidney injury, uncontrolled diabetes. 06/08: The patient continues to endorse shortness of breath; however, the use of BiPAP has slightly improved breathing. Patient also continues to endorse diffuse myalgias and overall fatigue. 06/09: No acute events over night. The patient denies fevers, chills, nausea, vomiting, abdominal pain, chest pain/pressure, shortness of breath, urinary symptoms, weakness, or confusion. 06/10: No acute events overnight 06/11: No acute events overnight 06/12: Patient on high flow nasal cannula, no acute events overnight 06/13: No acute events overnight 06/14: Per nursing patient reported to be agitated overnight. Was placed in restraints. This morning patient able to state where she is, but repeatedly says "I do not know" 06/15: No acute events overnight. Patient denies any pain or difficulty breathing. Is asking to get out of bed and for food. 06/16: No acute events overnight. Patient more alert and oriented this morning. Denies chest pain, shortness of breath or discomfort. 06/17: No acute events overnight. Patient alert to person and place. Ate breakfast. Denies chest pain, shortness of breath or discomfort. 102: No acute events overnight. Patient alert to person and place. Ate breakfast. Denies chest pain, shortness of breath or discomfort. 06/19: No acute events overnight. Patient alert to person and place. Ate breakfast. Denies chest pain, shortness of breath or discomfort. 06/20: No acute events overnight. Patient alert to person and place. Patient endorses lack of appetite. Denies chest pain, shortness of breath or discomfort. 06/21: No acute events overnight. 06/22: Intubated and transferred to ICU, PICC line placed and started on vasopressors. 06/23: Overnight patient was reported to be hypoxic and tachycardic and received metoprolol with minimal improvement. Patient sedated on fentanyl and nearly maxed on Levophed. Vasopressin added. A-line placed. Lower extremity ultr asound with no DVT. Blood culture, urinalysis and CXR ordered. Patient placed on a bicarb drip. Hyperkalemia medically treated. Nephrology will continue to follow before initiation of HD. Patient is to have a seizure which was aborted with 2 mg of Ativan (hospitalist/CCM/nephrology aware) and neurology was consulted. Patient started on Keppra by [facility] however changed to Vimpat per neurology. CT head and EEG ordered. Patient had bleeding around PICC line however this stopped when PICC was redressed. Hospitalist Physical - Constitutional Vitals: Temp Pulse Resp BP Pulse Ox 97.2 F L 130 H 30 H 94/53 88 06/23/21 13:34 06/23/21 13:04 06/23/21 06:45 06/23/21 14:18 06/23/21 13:04 General appearance: Present: no acute distress, well-nourished, obese - EENT Eyes: Present: PERRL, EOM intact ENT: poor dentition - Neck Neck: Present: normal ROM - Respiratory Respiratory effort: normal Respiratory: bilateral: diminished - Cardiovascular Rhythm: regular Heart Sounds: Present: S1 & S2. Absent: systolic murmur, diastolic murmur - Extremities Extremities: no ischemia, pulses intact, pulses symmetrical, normal temperature, normal color Extremity abnormal: edema Peripheral Pulses: within normal limits - Abdominal General gastrointestinal: soft, non-tender, non-distended, normal bowel sounds - Integumentary Integumentary: Present: warm, dry - Psychiatric Psychiatric: other (sedated) - Neurologic Neurologic: other (sedated) - Allied Health Allied health notes reviewed: nursing, RT, social work HEART Score - HEART Score EKG: Non-specific Age: 45-65 Risk factors: 1-2 risk factors Troponin: Troponin T 0.021 ng/mL (0.00-0.029) 06/08/21 13:49 - Critical Actions Critical Actions: 0-3 pts:0.9-1.7%risk of adverse cardiac event.Candidate for discharge Results - Labs CBC & Chem 7: 06/23/21 04:42 06/23/21 Unknown Labs: Laboratory Last Values WBC 19.0 K/mm3 (4.5-11.0) H 06/23/21 04:42 RBC 5.04 M/mm3 (3.65-5.03) H 06/23/21 04:42 Hgb 14.0 gm/dl (10.1-14.3) 06/23/21 04:42 Hct 44.5 % (30.3-42.9) H 06/23/21 04:42 MCV 88 fl (79-97) 06/23/21 04:42 MCH 28 pg (28-32) 06/23/21 04:42 MCHC 32 % (30-34) 06/23/21 04:42 RDW 16.6 % (13.2-15.2) H 06/23/21 04:42 Plt Count 61 K/mm3 (140-440) L 06/23/21 04:42 Lymph % (Auto) 8.5 % (13.4-35.0) L 06/12/21 08:31 Sequoyah % (Auto) 2.5 % (0.0-7.3) 06/12/21 08:31 Eos % (Auto) 0.8 % (0.0-4.3) 06/12/21 08:31 Baso % (Auto) 0.1 % (0.0-1.8) 06/12/21 08:31 Lymph # (Auto) 1.1 K/mm3 (1.2-5.4) L 06/12/21 08:31 [place]ah # (Auto) 0.3 K/mm3 (0.0-0.8) 06/12/21 08:31 Eos # (Auto) 0.1 K/mm3 (0.0-0.4) 06/12/21 08:31 Baso # (Auto) 0.0 K/mm3 (0.0-0.1) 06/12/21 08:31 Add Manual Diff Complete 06/15/21 07:38 Total Counted 100 06/15/21 07:38 Seg Neutrophils % Branch Maker 06/23/21 04:42 Seg Neuts % (Manual) 95.0 % (40.0-70.0) H 06/15/21 07:38 Band Neutrophils % 4.0 % 06/15/21 07:38 Lymphocytes % (Manual) 1.0 % (13.4-35.0) L 06/15/21 07:38 Monocytes % (Manual) 3.0 % (0.0-7.3) 06/14/21 04:42 Eosinophils % (Manual) 1.0 % (0.0-4.3) 06/13/21 07:42 Metamyelocytes % 2.0 % 06/10/21 23:14 Myelocytes % 2.0 % 06/14/21 04:42 Nucleated RBC % Not Reportable 06/15/21 07:38 Seg Neutrophils # 10.9 K/mm3 (1.8-7.7) H 06/12/21 08:31 Seg Neutrophils # Man 13.6 K/mm3 (1.8-7.7) H 06/15/21 07:38 Band Neutrophils # 0.6 K/mm3 06/15/21 07:38 Lymphocytes # (Manual) 0.1 K/mm3 (1.2-5.4) L 06/15/21 07:38 Abs React Lymphs (Man) 0.0 K/mm3 06/15/21 07:38 Monocytes # (Manual) 0.0 K/mm3 (0.0-0.8) 06/15/21 07:38 Eosinophils # (Manual) 0.0 K/mm3 (0.0-0.4) 06/15/21 07:38 Basophils # (Manual) 0.0 K/mm3 (0.0-0.1) 06/15/21 07:38 Metamyelocytes # 0.0 K/mm3 06/15/21 07:38 Myelocytes # 0.0 K/mm3 06/15/21 07:38 Promyelocytes # 0.0 K/mm3 06/15/21 07:38 Blast Cells # 0.0 K/mm3 06/15/21 07:38 WBC Morphology Not Reportable 06/15/21 07:38 Hypersegmented Neuts Not Reportable 06/15/21 07:38 Hyposegmented Neuts Not Reportable 06/15/21 07:38 Hypogranular Neuts Not Reportable 06/15/21 07:38 Smudge Cells Not Reportable 06/15/21 07:38 Toxic Granulation Not Reportable 06/15/21 07:38 Toxic Vacuolation Not Reportable 06/15/21 07:38 Dohle Bodies Not Reportable 06/15/21 07:38 Pelger-Huet Anomaly Not Reportable 06/15/21 07:38 Nba Rods Not Reportable 06/15/21 07:38 Platelet Estimate Consistent w auto 06/15/21 07:38 Clumped Platelets Not Reportable 06/15/21 07:38 Plt Clumps, EDTA Not Reportable 06/15/21 07:38 Large Platelets Not Reportable 06/15/21 07:38 Giant Platelets Not Reportable 06/15/21 07:38 Platelet Satelliting Not Reportable 06/15/21 07:38 Plt Morphology Comment Not Reportable 06/15/21 07:38 RBC Morphology Not Reportable 06/15/21 07:38 Dimorphic RBCs Not Reportable 06/15/21 07:38 Polychromasia Not Reportable 06/15/21 07:38 Hypochromasia Not Reportable 06/15/21 07:38 Poikilocytosis Not Reportable 06/15/21 07:38 Anisocytosis Not Reportable 06/15/21 07:38 Microcytosis Not Reportable 06/15/21 07:38 Macrocytosis Not Reportable 06/15/21 07:38 Spherocytes Not Reportable 06/15/21 07:38 Pappenheimer Bodies Not Reportable 06/15/21 07:38 Sickle Cells Not Reportable 06/15/21 07:38 Target Cells Not Reportable 06/15/21 07:38 Tear Drop Cells 1+ 06/15/21 07:38 Ovalocytes 1+ 06/15/21 07:38 Helmet Cells Not Reportable 06/15/21 07:38 Terry-Hester Bodies Not Reportable 06/15/21 07:38 [place] Rings Not Reportable 06/15/21 07:38 [place] Cells Not Reportable 06/15/21 07:38 Bite Cells Not Reportable 06/15/21 07:38 Crenated Cell Not Reportable 06/15/21 07:38 Elliptocytes Not Reportable 06/15/21 07:38 Acanthocytes (Spur) Not Reportable 06/15/21 07:38 Rouleaux Not Reportable 06/15/21 07:38 Hemoglobin C Crystals Not Reportable 06/15/21 07:38 Schistocytes Not Reportable 06/15/21 07:38 Malaria parasites Not Reportable 06/15/21 07:38 Luis Bodies Not Reportable 06/15/21 07:38 Hem Pathologist Commnt No 06/15/21 07:38 PT 24.6 Sec. (12.2-14.9) H 06/23/21 Unknown INR 2.18 (0.87-1.13) H 06/23/21 Unknown APTT 43.8 Sec. (24.2-36.6) H 06/23/21 Unknown Fibrinogen 340 mg/dl (211-480) 06/23/21 Unknown D-Dimer 6308.27 ng/mlDDU (0-234) H 06/23/21 04:42 ABG pH 7.177 (7.320-7.450) L 06/23/21 11:00 POC ABG pCO2 58.9 mmHg (32.0-48.0) H 06/23/21 11:00 ABG pCO2 56.5 mm Hg 06/22/21 21:22 POC ABG pO2 60.2 mmHg (83-108) L 06/23/21 11:00 ABG pO2 61.7 mm Hg (80.0-90.0) L 06/22/21 21:22 POC ABG HCO3 21.3 06/23/21 11:00 ABG HCO3 22.5 mmol/L (20.0-26.0) 06/22/21 21:22 ABG O2 Saturation 85.3 (0-100) 06/23/21 11:00 ABG O2 Content 17.2 (0.0-44) 06/22/21 21:22 POC ABG Base Excess -7.7 06/23/21 11:00 ABG Base Excess -6.0 mmol/L (-2.0-3.0) L 06/22/21 21:22 ABG Hemoglobin 13.83 (12.0-17.5) 06/23/21 11:00 ABG Oxyhemoglobin 83.5 (94-98) L 06/23/21 11:00 ABG Carboxyhemoglobin 1.5 % (0.0-5.0) 06/22/21 21:22 ABG Methemoglobin 1.8 (0.0-1.5) H 06/23/21 11:00 ABG Sodium 140.1 mmol/L (136.0-145.0) 06/21/21 17:55 ABG Potassium 4.2 mmol/L (3.40-4.50) 06/21/21 17:55 ABG Chloride 105.0 mmol/L (98-107) 06/21/21 17:55 ABG Glucose 197 mg/dL (65-95) H 06/21/21 17:55 Oxyhemoglobin 85.4 % (95.0-99.0) L 06/22/21 21:22 Carboxyhemoglobin 1.3 (0.5-1.5) 06/23/21 11:00 FiO2 100 % 06/22/21 21:22 FiO2 % 100 06/23/21 11:00 Sodium 146 mmol/L (137-145) H 06/23/21 Unknown Potassium 5.3 mmol/L (3.6-5.0) H 06/23/21 Unknown Chloride 113.2 mmol/L (98-107) H 06/23/21 Unknown Carbon Dioxide 20 mmol/L (22-30) L 06/23/21 Unknown Anion Gap 18 mmol/L 06/23/21 Unknown BUN 73 mg/dL (7-17) H 06/23/21 Unknown Creatinine 4.6 mg/dL (0.6-1.2) H D 06/23/21 04:42 Estimated GFR 12 ml/min 06/23/21 04:42 BUN/Creatinine Ratio 16 % 06/23/21 04:42 Glucose 234 mg/dL (65-100) H 06/23/21 Unknown POC Glucose 207 mg/dL (70-105) H 06/23/21 11:31 Hemoglobin A1c 9.5 % (4-6) H 06/07/21 19:11 Calcium 7.9 mg/dL (8.4-10.2) L 06/23/21 04:42 Calcium 8.0 mg/dL (8.4-10.2) L 06/23/21 04:42 Phosphorus 8.30 mg/dL (2.5-4.5) H 06/23/21 04:42 Magnesium 2.30 mg/dL (1.7-2.3) 06/23/21 04:42 Ferritin 1496.0 ng/mL (10.0-200.0) H 06/23/21 04:42 Total Bilirubin 0.30 mg/dL (0.1-1.2) 06/23/21 Unknown AST 29 units/L (5-40) 06/23/21 Unknown ALT 27 units/L (7-56) 06/23/21 Unknown Alkaline Phosphatase 99 units/L (35-129) 06/23/21 Unknown Lactate Dehydrogenase 606 units/L (91-180) H 06/10/21 23:14 Troponin T 0.021 ng/mL (0.00-0.029) 06/08/21 13:49 C-Reactive Protein 4.40 mg/dL (0.00-1.30) H 06/23/21 04:42 Serum Total Protein 7.0 g/dL (6.1-8.1) 06/10/21 23:14 Total Protein 4.3 g/dL (6.3-8.2) L 06/23/21 Unknown Albumin 2.0 g/dL (3.9-5) L 06/23/21 Unknown Albumin/Globulin Ratio 0.9 % 06/23/21 Unknown Yuzna-0-Uhavvtjjj 0.5 g/dL (0.2-0.3) H 06/10/21 23:14 Wvrmk-7-Paxtzueff 1.7 g/dL (0.5-0.9) H 06/10/21 23:14 Beta Globulins 0.6 g/dL (0.2-0.5) H 06/10/21 23:14 Gamma Globulins 1.3 g/dL (0.8-1.7) 06/10/21 23:14 Abnorm Protein Band 1 see below 06/10/21 23:14 PEP Interpretation see below H 06/10/21 23:14 Triglycerides 209 mg/dL (2-149) H 06/07/21 19:11 Cholesterol 165 mg/dL (50-199) 06/07/21 19:11 LDL Cholesterol Direct 79 mg/dL (50-130) 06/07/21 19:11 HDL Cholesterol 35 mg/dL (40-59) L 06/07/21 19:11 Cholesterol/HDL Ratio 4.71 % 06/07/21 19:11 Procalcitonin 0.91 ng/mL (<0.15) 06/07/21 19:11 Arterial Blood Glucose 197 mg/dL (65-95) H 06/21/21 17:55 Arterial Blood Ionized Calcium 4.6 mg/dL (4.6-5.3) 06/21/21 17:55 Coronavirus (PCR) Positive (Negative) A 06/08/21 08:30 Blood Type B POSITIVE 06/07/21 22:34 Antibody Screen Negative 06/07/21 22:34 Microbiology: Microbiology 06/23/21 08:27 Peripheral/Venous Blood Culture - Preliminary Culture in Progress 06/23/21 08:27 Peripheral/Venous Blood Culture - Preliminary Culture in Progress Roland/IV: Voiding Method Indwelling Catheter Active Medications - Current Medications Current Medications: Generic Name Dose Route Start Last Admin Trade Name Freq PRN Reason Stop Dose Admin Acetaminophen 650 mg 06/07/21 21:41 Acetaminophen 325 Mg Tab PO Q4H PRN Pain MILD(1-3)/Fever >100.5/MARTÍNEZ Albuterol 2 mg 06/23/21 09:00 Albuterol 2.5 Mg/3 Ml Nebu IH Q4HRT PRN Shortness Of Breath Lipase/Protease/Amylase 1 each 06/22/21 14:36 Lipase 10,500/Protease 25,000/Amylase 43,750 (Units) Dr Cap FEEDTUBE PRN PRN For Clogged Feeding Tube Ascorbic Acid 500 mg 06/22/21 22:00 06/23/21 14:17 Ascorbic Acid 500 Mg Tab PO 500 mg BID LEONOR Administration Atorvastatin Calcium 10 mg 06/08/21 10:00 06/23/21 10:35 Atorvastatin 10 Mg Tab PO 10 mg DAILY LEONOR Administration Dextrose 50 ml 06/08/21 12:04 06/20/21 12:16 Dextrose 50% In Water (25gm) 50 Ml Syringe IV 50 ml Q30MIN PRN Administration Hypoglycemia Protocol Docusate Sodium 100 mg 06/23/21 09:00 Docusate Sodium 100 Mg/10 Ml Oral Liqd PO BID PRN Constipation Enoxaparin Sodium 40 mg 06/23/21 11:00 06/23/21 10:36 Enoxaparin 40 Mg/0.4 Ml Inj SUB-Q 40 mg DAILY LEONOR Administration Protocol Famotidine 10 mg 06/22/21 22:00 06/23/21 10:35 Famotidine 20 Mg/2 Ml Inj IV 10 mg BID LEONOR Administration Fentanyl 50 mcg 06/22/21 13:07 06/22/21 21:09 Fentanyl 100 Mcg/2 Ml Inj IV 50 mcg Q10MIN PRN Administration ANALGESIA Hydralazine HCl 25 mg 06/07/21 22:00 06/23/21 14:18 Hydralazine 25 Mg Tab PO Not Given Q8HR LEONOR Hydrophilic Ointment 1 applic 06/22/21 13:07 Lip Therapy Vaseline TP Q2HR PRN Dry Lips Fentanyl Citrate 2,000 mcg in 100 mls @ 8.2 mls/hr 06/22/21 14:00 06/23/21 14:17 Fentanyl Drip Premix IV 4 mcg/kg/hr TITR LEONOR 32.8 mls/hr Administration Protocol 1 MCG/KG/HR NORepinephrine/NS 8 MG-250 ML 8 mg in 250 mls @ 3.75 mls/hr 06/22/21 15:00 06/23/21 12:46 Norepinephrine/Ns 8 Mg-250 Ml (Double Conc) IV 25 mcg/min TITRATE LEONOR 46.875 mls/hr Administration Protocol 2 MCG/MIN Cefepime HCl 2 gm in 100 mls @ 200 mls/hr 06/23/21 08:00 06/23/21 08:54 Cefepime/Ns 2 Gm/100 Ml IV 200 mls/hr Q24H LEONOR Administration Protocol Vasopressin 20 unit/ Sodium 101 mls @ 9.09 mls/hr 06/23/21 09:00 06/23/21 10:35 Chloride IV 0.03 units/min TITR LEONOR 9.09 mls/hr Administration Protocol 0.03 UNITS/MIN Sodium Chloride 500 mls @ 1 mls/hr 06/23/21 11:19 Nacl 0.9% 500 Ml IV DIRECT PRN ARTERIAL LINE FLUSH Sodium Bicarbonate 150 meq/ 1,150 mls @ 75 mls/hr 06/23/21 13:00 06/23/21 14:17 Sterile Water IV 06/25/21 04:19 75 mls/hr DIRECT LEONOR Administration Lacosamide 100 mg/ Sodium 110 mls @ 100 mls/hr 06/23/21 15:00 Chloride IV Q12H LEONOR Insulin Human Isoph/Insulin Regular 20 unit 06/23/21 22:00 Insulin Nph/Regular 70/30 Inj SUB-Q BID LEONOR Insulin Human Regular 0 units 06/22/21 18:00 06/23/21 11:35 Insulin Regular, Human 100 Units/1 Ml SUB-Q 4 units Q6HR [facility] Administration Protocol Levothyroxine Sodium 137.5 mcg 06/23/21 06:00 06/23/21 05:34 Levothyroxine 100 Mcg Inj IV 137.5 mcg DAILY@0600 [facility] Administration Methylprednisolone Sodium Succinate 100 mg 06/21/21 16:00 06/23/21 08:55 Methylprednisolone Sod Succinate 125 Mg/2 Ml Inj IV 100 mg Q8H [facility] Administration Metoprolol Tartrate 5 mg 06/23/21 05:30 06/23/21 05:37 Metoprolol Tartrate 5 Mg/5 Ml Inj IV 5 mg Q6H PRN Administration HR > 100 Midodrine 10 mg 06/22/21 15:00 06/23/21 06:00 Midodrine 5 Mg Tab PO 10 mg Q8H [facility] Administration Multi-Ingred Cream/Lotion/Oil/Oint 1 applic 06/22/21 13:07 Mineral Oil/Petrolatum, White Ophth Oint 3.5 Gm OU Q4HR PRN Dry Eye(s) Ondansetron HCl 4 mg 06/07/21 21:41 06/20/21 22:15 Ondansetron 4 Mg/2 Ml Inj IV 4 mg Q8H PRN Administration Nausea And Vomiting Senna/Docusate Sodium 1 tab 06/22/21 22:00 06/23/21 10:35 Sennosides/Docusate Sodium 8.6/50 Mg Tab FEEDTUBE 1 tab BID LEONOR Administration Simple Syrup 15 ml 06/22/21 14:36 Simple Syrup 15 Ml FEEDTUBE PRN PRN Hypoglycemia Simple Syrup 30 ml 06/22/21 14:36 Simple Syrup 15 Ml FEEDTUBE PRN PRN Hypoglycemia Sodium Bicarbonate 325 mg 06/22/21 14:36 Sodium Bicarbonate 325 Mg Tab FEEDTUBE PRN PRN For Clogged Feeding Tube Sodium Chloride 10 ml 06/07/21 22:00 06/23/21 11:25 Sodium Chloride 0.9% 10 Ml Flush Syringe IV 10 ml BID LEONOR Administration Sodium Chloride 10 ml 06/07/21 21:41 Sodium Chloride 0.9% 10 Ml Flush Syringe IV PRN PRN LINE FLUSH Zinc Sulfate 220 mg 06/22/21 22:00 06/23/21 10:35 Zinc Sulfate 220 Mg Cap PO 220 mg BID LEONOR Administration Nutrition/Malnutrition Assess - Dietary Evaluation Nutrition/Malnutrition Findings: Nutrition Notes Start: 06/08/21 10:56 Freq: Status: Active Protocol: Document 06/22/21 13:56 RIKY (Rec: 06/22/21 14:35 [email or web address] [id number]) Nutrition Notes Need for Assessment generated from: MD Order Initial or Follow up Reassessment Current Diagnosis Acute Kidney Injury,Diabetes Other Pertinent Diagnosis Pneumonia/COVID-19, hypothyroidism. Current Diet Tube feeding (since D 06/22) Labs/Tests 06/22: CO2 21, BUN 55, Cr 2.8, Glu 219. Pertinent Medications 06/21: Reviewed. Height 5 ft 11 in Weight 164 kg [place] Body Weight (kg) 70.45 BMI 50.4 Intake Prior to Admission Excellent Weight change and time frame No significant changes reported. Stable. Weight Status Morbidly Obese Subjective/Other Information Pt Has been intubated. Percent of energy/protein needs met: Prescribed Tube feeding diet will provide 75-100% for energy/protein needs. (1,680 Kcal/ 84 g). Burn Absent Trauma Absent GI Symptoms None Difficulty In Swallowing,Chewing Food Allergy Yes Skin Integrity/Comment N/A Current % PO Negligible Minimum of two criteria No physical signs of malnutrition #1 Nutrition Diagnosis Inadequate energy intake Comments: Transient poor acceptance of food and neglible PO intake as reported in Nurse notes Etiology COVID=19/pneumonia As Evidenced by Signs and Symptoms Fair tolerance to food, intake of meals between 0-25%. Diagnosis Progress(for reassessment Worsened documentation) Is patient on ventilator? No Is Patient Ambulatory and/or Out of Bed No REE-([facility]-confined to bed) 2771.148 Kcal/Kg value to use for calculation 13 Approximate Energy Requirements Using 2132 kcal/Kg Calculation Used for Recommendations Kcal/kg Additional Notes Protein: 1.0-1.2 g/Kg/day; 70- 84 g/day; 280-336 Kcal/day ( from IBW). Fluids: 1.0 ml/Kcal, or as per MD. Nutrition Intervention Change Diet Order: Initiate Tube Feeding: Glucerna 1.2 (unflavored) Nutrition Support: Glucerna 1.2: 1,680 ml/24 hrs. Flush; 165ml every 4 hrs. ( 990ml/day) or as per MD. Kcal 1,680 Protein (gm) 84 Carbohydrates (gm) 160 Fat (gm) 84 Fluid (mL) 1,127 Fiber (gm) 23 % RDI: 79 Goal #1 Maintain body weight within +/ -3% of actual BWt during LOS. Goal #2 Support energy/protein needs ( 2,132 Kcal/ 70-84 g) during LOS. Goal #3 Reach and maintain acceptable chemistry lab values during LOS. Follow-Up By: 06/28/21 Additional Comments Continue monitoring tolerance to tube feeding, and BM. <MARINA GARVEY - Last Filed: 06/24/21 06:55> Assessment and Plan Assessment and plan: I agree with the aforementioned note listed above. Hospitalist Physical - Constitutional Vitals: Temp Pulse Resp BP Pulse Ox 101.5 F H 111 H 30 H 127/43 95 06/24/21 01:00 06/24/21 06:21 06/24/21 06:21 06/24/21 06:21 06/24/21 06:21 HEART Score - HEART Score Troponin: Troponin T 0.021 ng/mL (0.00-0.029) 06/08/21 13:49 Results - Labs CBC & Chem 7: 06/24/21 04:55 06/24/21 04:55 Labs: Laboratory Last Values WBC 18.7 K/mm3 (4.5-11.0) H 06/24/21 04:55 RBC 4.23 M/mm3 (3.65-5.03) 06/24/21 04:55 Hgb 12.0 gm/dl (10.1-14.3) 06/24/21 04:55 Hct 37.8 % (30.3-42.9) D 06/24/21 04:55 MCV 89 fl (79-97) 06/24/21 04:55 MCH 28 pg (28-32) 06/24/21 04:55 MCHC 32 % (30-34) 06/24/21 04:55 RDW 16.8 % (13.2-15.2) H 06/24/21 04:55 Plt Count 42 K/mm3 (140-440) L 06/24/21 04:55 Lymph % (Auto) 8.5 % (13.4-35.0) L 06/12/21 08:31 [place]ah % (Auto) 2.5 % (0.0-7.3) 06/12/21 08:31 Eos % (Auto) 0.8 % (0.0-4.3) 06/12/21 08:31 Baso % (Auto) 0.1 % (0.0-1.8) 06/12/21 08:31 Lymph # (Auto) 1.1 K/mm3 (1.2-5.4) L 06/12/21 08:31 [place] # (Auto) 0.3 K/mm3 (0.0-0.8) 06/12/21 08:31 Eos # (Auto) 0.1 K/mm3 (0.0-0.4) 06/12/21 08:31 Baso # (Auto) 0.0 K/mm3 (0.0-0.1) 06/12/21 08:31 Add Manual Diff Complete 06/23/21 04:42 Total Counted 100 06/23/21 04:42 Seg Neutrophils % Branch Maker 06/24/21 04:55 Seg Neuts % (Manual) 69.0 % (40.0-70.0) 06/23/21 04:42 Band Neutrophils % 21.0 % 06/23/21 04:42 Lymphocytes % (Manual) 2.0 % (13.4-35.0) L 06/23/21 04:42 Monocytes % (Manual) 6.0 % (0.0-7.3) 06/23/21 04:42 Eosinophils % (Manual) 2.0 % (0.0-4.3) 06/23/21 04:42 Metamyelocytes % 2.0 % 06/10/21 23:14 Myelocytes % 2.0 % 06/14/21 04:42 Nucleated RBC % 46.0 % (0.0-0.9) H 06/23/21 04:42 Seg Neutrophils # 10.9 K/mm3 (1.8-7.7) H 06/12/21 08:31 Seg Neutrophils # Man 13.1 K/mm3 (1.8-7.7) H 06/23/21 04:42 Band Neutrophils # 4.0 K/mm3 06/23/21 04:42 Lymphocytes # (Manual) 0.4 K/mm3 (1.2-5.4) L 06/23/21 04:42 Abs React Lymphs (Man) 0.0 K/mm3 06/23/21 04:42 Monocytes # (Manual) 1.1 K/mm3 (0.0-0.8) H 06/23/21 04:42 Eosinophils # (Manual) 0.4 K/mm3 (0.0-0.4) 06/23/21 04:42 Basophils # (Manual) 0.0 K/mm3 (0.0-0.1) 06/23/21 04:42 Metamyelocytes # 0.0 K/mm3 06/23/21 04:42 Myelocytes # 0.0 K/mm3 06/23/21 04:42 Promyelocytes # 0.0 K/mm3 06/23/21 04:42 Blast Cells # 0.0 K/mm3 06/23/21 04:42 WBC Morphology Not Reportable 06/23/21 04:42 Hypersegmented Neuts Not Reportable 06/23/21 04:42 Hyposegmented Neuts Not Reportable 06/23/21 04:42 Hypogranular Neuts Not Reportable 06/23/21 04:42 Smudge Cells Not Reportable 06/23/21 04:42 Toxic Granulation Not Reportable 06/23/21 04:42 Toxic Vacuolation Not Reportable 06/23/21 04:42 Dohle Bodies Not Reportable 06/23/21 04:42 Pelger-Huet Anomaly Not Reportable 06/23/21 04:42 Nba Rods Not Reportable 06/23/21 04:42 Platelet Estimate Appears normal 06/23/21 04:42 Clumped Platelets Not Reportable 06/23/21 04:42 Plt Clumps, EDTA Not Reportable 06/23/21 04:42 Large Platelets Not Reportable 06/23/21 04:42 Giant Platelets Not Reportable 06/23/21 04:42 Platelet Satelliting Not Reportable 06/23/21 04:42 Plt Morphology Comment Not Reportable 06/23/21 04:42 RBC Morphology Not Reportable 06/23/21 04:42 Dimorphic RBCs Not Reportable 06/23/21 04:42 Polychromasia Not Reportable 06/23/21 04:42 Hypochromasia Not Reportable 06/23/21 04:42 Poikilocytosis Not Reportable 06/23/21 04:42 Anisocytosis Not Reportable 06/23/21 04:42 Microcytosis Not Reportable 06/23/21 04:42 Macrocytosis Not Reportable 06/23/21 04:42 Spherocytes Not Reportable 06/23/21 04:42 Pappenheimer Bodies Not Reportable 06/23/21 04:42 Sickle Cells Not Reportable 06/23/21 04:42 Target Cells Not Reportable 06/23/21 04:42 Tear Drop Cells Not Reportable 06/23/21 04:42 Ovalocytes Not Reportable 06/23/21 04:42 Helmet Cells Not Reportable 06/23/21 04:42 Terry-Hester Bodies Not Reportable 06/23/21 04:42 [place] Rings Not Reportable 06/23/21 04:42 Barbie Cells Not Reportable 06/23/21 04:42 Bite Cells Not Reportable 06/23/21 04:42 Crenated Cell Not Reportable 06/23/21 04:42 Elliptocytes Not Reportable 06/23/21 04:42 Acanthocytes (Spur) Not Reportable 06/23/21 04:42 Rouleaux Not Reportable 06/23/21 04:42 Hemoglobin C Crystals Not Reportable 06/23/21 04:42 Schistocytes Not Reportable 06/23/21 04:42 Malaria parasites Not Reportable 06/23/21 04:42 Luis Bodies Not Reportable 06/23/21 04:42 Hem Pathologist Commnt No 06/23/21 04:42 PT 22.2 Sec. (12.2-14.9) H 06/24/21 04:55 INR 1.90 (0.87-1.13) H 06/24/21 04:55 APTT 43.8 Sec. (24.2-36.6) H 06/23/21 Unknown Fibrinogen 340 mg/dl (211-480) 06/23/21 Unknown D-Dimer 6308 ng/mlDDU (0-234) H 06/23/21 Unknown ABG pH 7.214 (7.320-7.450) L 06/23/21 21:12 POC ABG pCO2 60.2 mmHg (32.0-48.0) H 06/23/21 21:12 ABG pCO2 56.5 mm Hg 06/22/21 21:22 POC ABG pO2 78.9 mmHg (83-108) L 06/23/21 21:12 ABG pO2 61.7 mm Hg (80.0-90.0) L 06/22/21 21:22 POC ABG HCO3 23.8 06/23/21 21:12 ABG HCO3 22.5 mmol/L (20.0-26.0) 06/22/21 21:22 ABG O2 Saturation 94.2 (0-100) 06/23/21 21:12 ABG O2 Content 17.2 (0.0-44) 06/22/21 21:22 POC ABG Base Excess -5.0 06/23/21 21:12 ABG Base Excess -6.0 mmol/L (-2.0-3.0) L 06/22/21 21:22 ABG Hemoglobin 14.0 (12.0-17.5) 06/23/21 21:12 ABG Oxyhemoglobin 93.4 (94-98) L 06/23/21 21:12 ABG Carboxyhemoglobin 1.5 % (0.0-5.0) 06/22/21 21:22 ABG Methemoglobin 0.2 (0.0-1.5) 06/23/21 21:12 ABG Sodium 138.4 mmol/L (136.0-145.0) 06/23/21 21:12 ABG Potassium 6.3 mmol/L (3.40-4.50) H 06/23/21 21:12 ABG Chloride 105.0 mmol/L (98-107) 06/23/21 21:12 ABG Glucose 338 mg/dL (65-95) H 06/23/21 21:12 Oxyhemoglobin 85.4 % (95.0-99.0) L 06/22/21 21:22 Carboxyhemoglobin 0.7 (0.5-1.5) 06/23/21 21:12 FiO2 100 % 06/22/21 21:22 FiO2 % 100.0 06/23/21 21:12 Sodium 142 mmol/L (137-145) 06/24/21 04:55 Potassium 6.0 mmol/L (3.6-5.0) H 06/24/21 04:55 Chloride 106.4 mmol/L (98-107) 06/24/21 04:55 Carbon Dioxide 20 mmol/L (22-30) L 06/24/21 04:55 Anion Gap 22 mmol/L 06/24/21 04:55 BUN 86 mg/dL (7-17) H 06/24/21 04:55 Creatinine 5.4 mg/dL (0.6-1.2) H 06/24/21 04:55 Estimated GFR 10 ml/min 06/24/21 04:55 BUN/Creatinine Ratio 16 % 06/24/21 04:55 Glucose 309 mg/dL (65-100) H 06/24/21 04:55 POC Glucose 257 mg/dL (70-105) H 06/24/21 06:01 Hemoglobin A1c 9.5 % (4-6) H 06/07/21 19:11 Calcium 6.5 mg/dL (8.4-10.2) L 06/24/21 04:55 Phosphorus 7.60 mg/dL (2.5-4.5) H 06/24/21 04:55 Magnesium 2.00 mg/dL (1.7-2.3) 06/24/21 04:55 Ferritin 1094.0 ng/mL (10.0-200.0) H 06/23/21 Unknown Total Bilirubin 0.40 mg/dL (0.1-1.2) 06/24/21 04:55 AST 28 units/L (5-40) 06/24/21 04:55 ALT 28 units/L (7-56) 06/24/21 04:55 Alkaline Phosphatase 89 units/L (35-129) 06/24/21 04:55 Lactate Dehydrogenase 606 units/L (91-180) H 06/10/21 23:14 Troponin T 0.021 ng/mL (0.00-0.029) 06/08/21 13:49 C-Reactive Protein 4.40 mg/dL (0.00-1.30) H 06/23/21 04:42 Serum Total Protein 7.0 g/dL (6.1-8.1) 06/10/21 23:14 Total Protein 4.6 g/dL (6.3-8.2) L 06/24/21 04:55 Albumin 2.1 g/dL (3.9-5) L 06/24/21 04:55 Albumin/Globulin Ratio 0.8 % 06/24/21 04:55 Mwwct-8-Ynaqidwug 0.5 g/dL (0.2-0.3) H 06/10/21 23:14 Gnnse-6-Wphdgstft 1.7 g/dL (0.5-0.9) H 06/10/21 23:14 Beta Globulins 0.6 g/dL (0.2-0.5) H 06/10/21 23:14 Gamma Globulins 1.3 g/dL (0.8-1.7) 06/10/21 23:14 Abnorm Protein Band 1 see below 06/10/21 23:14 PEP Interpretation see below H 06/10/21 23:14 Triglycerides 209 mg/dL (2-149) H 06/07/21 19:11 Cholesterol 165 mg/dL (50-199) 06/07/21 19:11 LDL Cholesterol Direct 79 mg/dL (50-130) 06/07/21 19:11 HDL Cholesterol 35 mg/dL (40-59) L 06/07/21 19:11 Cholesterol/HDL Ratio 4.71 % 06/07/21 19:11 Procalcitonin 0.91 ng/mL (<0.15) 06/07/21 19:11 Arterial Blood Glucose 338 mg/dL (65-95) H 06/23/21 21:12 Arterial Blood Ionized Calcium 4.1 mg/dL (4.6-5.3) L 06/23/21 21:12 Urine Color Sole (Yellow) 06/23/21 17:40 Urine Turbidity Cloudy (Clear) 06/23/21 17:40 Urine pH 6.0 (5.0-7.0) 06/23/21 17:40 Ur Specific [place] 1.017 (1.003-1.030) 06/23/21 17:40 Urine Protein >500 mg/dL (Negative) 06/23/21 17:40 Urine Glucose (UA) 50 mg/dL (Negative) 06/23/21 17:40 Urine Ketones Neg mg/dL (Negative) 06/23/21 17:40 Urine Blood Lg (Negative) 06/23/21 17:40 Urine Nitrite Neg (Negative) 06/23/21 17:40 Urine Bilirubin Neg (Negative) 06/23/21 17:40 Urine Urobilinogen < 2.0 mg/dL (<2.0) 06/23/21 17:40 Ur Leukocyte Esterase Mod (Negative) 06/23/21 17:40 Urine WBC (Auto) > 182.0 /HPF (0.0-6.0) H 06/23/21 17:40 Urine RBC (Auto) > 182.0 /HPF (0.0-6.0) 06/23/21 17:40 Urine WBC Clumps 3+ /HPF 06/23/21 17:40 Uric Acid Crystals 1+ 06/23/21 17:40 Urine Mucus Few /HPF 06/23/21 17:40 Random Vancomycin 10.7 ug/mL (0-40.0) 06/24/21 04:55 Coronavirus (PCR) Positive (Negative) A 06/08/21 08:30 Blood Type B POSITIVE 06/07/21 22:34 Antibody Screen Negative 06/07/21 22:34 Microbiology: Microbiology 06/23/21 08:27 Peripheral/Venous Blood Culture - Preliminary Culture in Progress 06/23/21 08:27 Peripheral/Venous Blood Culture - Preliminary Culture in Progress Roland/IV: Voiding Method Indwelling Catheter Active Medications - Current Medications Current Medications: Generic Name Dose Route Start Last Admin Trade Name Freq PRN Reason Stop Dose Admin Acetaminophen 650 mg 06/07/21 21:41 06/23/21 22:30 Acetaminophen 325 Mg Tab PO 650 mg Q4H PRN Administration Pain MILD(1-3)/Fever >100.5/MARTÍNEZ Albuterol 2 mg 06/23/21 09:00 Albuterol 2.5 Mg/3 Ml Nebu IH Q4HRT PRN Shortness Of Breath Lipase/Protease/Amylase 1 each 06/22/21 14:36 Lipase 10,500/Protease 25,000/Amylase 43,750 (Units) Dr Cap FEEDTUBE PRN PRN For Clogged Feeding Tube Ascorbic Acid 500 mg 06/22/21 22:00 06/23/21 21:41 Ascorbic Acid 500 Mg Tab PO 500 mg BID LEONOR Administration Atorvastatin Calcium 10 mg 06/08/21 10:00 06/23/21 10:35 Atorvastatin 10 Mg Tab PO 10 mg DAILY LEONOR Administration Dextrose 50 ml 06/08/21 12:04 06/20/21 12:16 Dextrose 50% In Water (25gm) 50 Ml Syringe IV 50 ml Q30MIN PRN Administration Hypoglycemia Protocol Docusate Sodium 100 mg 06/23/21 09:00 Docusate Sodium 100 Mg/10 Ml Oral Liqd PO BID PRN Constipation Enoxaparin Sodium 40 mg 06/23/21 11:00 06/23/21 10:36 Enoxaparin 40 Mg/0.4 Ml Inj SUB-Q 40 mg DAILY LEONOR Administration Protocol Famotidine 10 mg 06/22/21 22:00 06/23/21 21:40 Famotidine 20 Mg/2 Ml Inj IV 10 mg BID LEONOR Administration Fentanyl 50 mcg 06/22/21 13:07 06/22/21 21:09 Fentanyl 100 Mcg/2 Ml Inj IV 50 mcg Q10MIN PRN Administration ANALGESIA Hydrophilic Ointment 1 applic 06/22/21 13:07 Lip Therapy Vaseline TP Q2HR PRN Dry Lips Fentanyl Citrate 2,000 mcg in 100 mls @ 8.2 mls/hr 06/22/21 14:00 06/24/21 04:36 Fentanyl Drip Premix IV 4 mcg/kg/hr TITR LEONOR 32.8 mls/hr Administration Protocol 1 MCG/KG/HR NORepinephrine/NS 8 MG-250 ML 8 mg in 250 mls @ 3.75 mls/hr 10/06/21 15:00 06/24/21 03:08 Norepinephrine/Ns 8 Mg-250 Ml (Double Conc) IV 18 mcg/min TITRATE LEONOR 33.75 mls/hr Administration Protocol 2 MCG/MIN Cefepime HCl 2 gm in 100 mls @ 200 mls/hr 06/23/21 08:00 06/23/21 08:54 Cefepime/Ns 2 Gm/100 Ml IV 200 mls/hr Q24H LEONOR Administration Protocol Vasopressin 20 unit/ Sodium 101 mls @ 9.09 mls/hr 06/23/21 09:00 06/23/21 20:08 Chloride IV 0.03 units/min TITR LEONOR 9.09 mls/hr Administration Protocol 0.03 UNITS/MIN Sodium Chloride 500 mls @ 1 mls/hr 06/23/21 11:19 Nacl 0.9% 500 Ml IV DIRECT PRN ARTERIAL LINE FLUSH Sodium Bicarbonate 150 meq/ 1,150 mls @ 75 mls/hr 06/23/21 13:00 06/24/21 06:46 Sterile Water IV 06/25/21 04:19 75 mls/hr DIRECT LEONOR Administration Lacosamide 100 mg/ Sodium 110 mls @ 100 mls/hr 06/23/21 15:00 06/24/21 03:50 Chloride IV 100 mls/hr Q12H LEONOR Administration Insulin Human Isoph/Insulin Regular 20 unit 06/23/21 22:00 06/23/21 21:51 Insulin Nph/Regular 70/30 Inj SUB-Q 20 unit BID LEONOR Administration Insulin Human Regular 0 units 06/22/21 18:00 06/24/21 06:06 Insulin Regular, Human 100 Units/1 Ml SUB-Q 6 units Q6HR LEONOR Administration Protocol Levothyroxine Sodium 137.5 mcg 06/23/21 06:00 06/24/21 06:08 Levothyroxine 100 Mcg Inj IV 137.5 mcg DAILY@0600 LEONOR Administration Methylprednisolone Sodium Succinate 100 mg 06/21/21 16:00 06/24/21 00:15 Methylprednisolone Sod Succinate 125 Mg/2 Ml Inj IV 100 mg Q8H LEONOR Administration Midodrine 10 mg 06/22/21 15:00 06/24/21 06:08 Midodrine 5 Mg Tab PO 10 mg Q8H LEONOR Administration Multi-Ingred Cream/Lotion/Oil/Oint 1 applic 06/22/21 13:07 Mineral Oil/Petrolatum, White Ophth Oint 3.5 Gm OU Q4HR PRN Dry Eye(s) Ondansetron HCl 4 mg 06/07/21 21:41 06/20/21 22:15 Ondansetron 4 Mg/2 Ml Inj IV 4 mg Q8H PRN Administration Nausea And Vomiting Senna/Docusate Sodium 1 tab 06/22/21 22:00 06/23/21 21:40 Sennosides/Docusate Sodium 8.6/50 Mg Tab FEEDTUBE 1 tab BID LEONOR Administration Simple Syrup 15 ml 06/22/21 14:36 Simple Syrup 15 Ml FEEDTUBE PRN PRN Hypoglycemia Simple Syrup 30 ml 06/22/21 14:36 Simple Syrup 15 Ml FEEDTUBE PRN PRN Hypoglycemia Sodium Bicarbonate 325 mg 06/22/21 14:36 Sodium Bicarbonate 325 Mg Tab FEEDTUBE PRN PRN For Clogged Feeding Tube Sodium Chloride 10 ml 06/07/21 22:00 06/23/21 21:41 Sodium Chloride 0.9% 10 Ml Flush Syringe IV 10 ml BID LEONOR Administration Sodium Chloride 10 ml 06/07/21 21:41 Sodium Chloride 0.9% 10 Ml Flush Syringe IV PRN PRN LINE FLUSH Zinc Sulfate 220 mg 06/22/21 22:00 06/23/21 21:41 Zinc Sulfate 220 Mg Cap PO 220 mg BID LEONOR Administration Nutrition/Malnutrition Assess - Dietary Evaluation Nutrition/Malnutrition Findings: Nutrition Notes Start: 06/08/21 10:56 Freq: Status: Active Protocol: Document 06/22/21 13:56 RIKY (Rec: 06/22/21 14:35 RIKY [id number]) Nutrition Notes Need for Assessment generated from: MD Order Initial or Follow up Reassessment Current Diagnosis Acute Kidney Injury,Diabetes Other Pertinent Diagnosis Pneumonia/COVID-19, hypothyroidism. Current Diet Tube feeding (since D 06/22) Labs/Tests 06/22: CO2 21, BUN 55, Cr 2.8, Glu 219. Pertinent Medications 06/21: Reviewed. Height 5 ft 11 in Weight 164 kg [place] Body Weight (kg) 70.45 BMI 50.4 Intake Prior to Admission Excellent Weight change and time frame No significant changes reported. Stable. Weight Status Morbidly Obese Subjective/Other Information Pt Has been intubated. Percent of energy/protein needs met: Prescribed Tube feeding diet will provide 75-100% for energy/protein needs. (1,680 Kcal/ 84 g). Burn Absent Trauma Absent GI Symptoms None Difficulty In Swallowing,Chewing Food Allergy Yes Skin Integrity/Comment N/A Current % PO Negligible Minimum of two criteria No physical signs of malnutrition #1 Nutrition Diagnosis Inadequate energy intake Comments: Transient poor acceptance of food and neglible PO intake as reported in Nurse notes Etiology COVID=19/pneumonia As Evidenced by Signs and Symptoms Fair tolerance to food, intake of meals between 0-25%. Diagnosis Progress(for reassessment Worsened documentation) Is patient on ventilator? No Is Patient Ambulatory and/or Out of Bed No REE-([facility]-confined to bed) 2771.148 Kcal/Kg value to use for calculation 13 Approximate Energy Requirements Using 2132 kcal/Kg Calculation Used for Recommendations Kcal/kg Additional Notes Protein: 1.0-1.2 g/Kg/day; 70- 84 g/day; 280-336 Kcal/day ( from IBW). Fluids: 1.0 ml/Kcal, or as per MD. Nutrition Intervention Change Diet Order: Initiate Tube Feeding: Glucerna 1.2 (unflavored) Nutrition Support: Glucerna 1.2: 1,680 ml/24 hrs. Flush; 165ml every 4 hrs. ( 990ml/day) or as per MD. Kcal 1,680 Protein (gm) 84 Carbohydrates (gm) 160 Fat (gm) 84 Fluid (mL) 1,127 Fiber (gm) 23 % RDI: 79 Goal #1 Maintain body weight within +/ -3% of actual BWt during LOS. Goal #2 Support energy/protein needs ( 2,132 Kcal/ 70-84 g) during LOS. Goal #3 Reach and maintain acceptable chemistry lab values during LOS. Follow-Up By: 06/28/21 Additional Comments Continue monitoring tolerance to tube feeding, and BM.
--- NOTE | 2021-06-23 15:35 | Procedure Note ---
Date of procedure: 06/23/21 Pre-op diagnosis: Sepsis, COVID-19 PNA, acute hypoxic respiratory failure, acute on ckd Post-op diagnosis: same Procedure: Right asia Anatoly test completed. Ulnar pulse intact. Right radial asia inserted using sterile technique. Area prepped with chlorhexidine and the site was infiltrated with 1ml 1% lidocaine. Arterial line was placed using ultrasound; catheter advanced without difficulty. Line was sutured, biopatch placed and tegaderm dressing applied. Arterial waveform observed on bedside monitor. Line flushed and zeroed. RN at bedside. Pt tolerated procedure well. VS remained stable throughout procedure. (time spent placing line not included in daily critical care time) CCT: 60 mins Anesthesia: local Surgeon: MOODY MERCHANT Estimated blood loss: minimal Pathology: none Condition: critical Disposition: ICU
[2021-06-23] MEDS: LACOSAMIDE 100 MG in SODIUM CHLORIDE 0.9% 100 ML IV SCH (17:18)
[2021-06-23] MEDS: ACETAMINOPHEN 325 MG TAB PO PRN ×2 (18:15→22:30)
[2021-06-23 18:25] LABS: Bilirubin,Urine NEG (Negative); Blood,Urine LG (Negative); Color,Urine Amber (Yellow); Mucus,Urine FEW /HPF; Urobilinogen,Urine < 2.0 mg/dL (<2.0)
[2021-06-23 18:27] LABS: Protein,Urine >500 mg/dL (Negative)
[2021-06-23 18:28] LABS: RBC,Urine > 182.0 /HPF (0.0-6.0); WBC,Urine > 182.0 /HPF (0.0-6.0)
[2021-06-23 18:39] LABS: Total Cells Counted 100
[2021-06-24] MEDS: INSULIN REGULAR, HUMAN 100 UNITS/1 ML SUB-Q SCH ×4 (00:09→18:05)
[2021-06-24] MEDS: methylPREDNISolone Sod Succinate 125 MG/2 ML INJ IV SCH ×3 (00:15→17:23)
[2021-06-24] MEDS: fentaNYL DRIP Premix 2,000 MCG/100 ML BAG IV SCH ×6 (01:28→23:13)
--- NOTE | 2021-06-24 02:45 | XRay Report ---
CHEST 1 VIEW INDICATION / CLINICAL INFORMATION: follow up respiratory failure. FINDINGS: SUPPORT DEVICES: No significant change in position. HEART / MEDIASTINUM: The cardiomediastinal silhouette has not significantly changed in the interim. LUNGS / PLEURA: Severe bilateral airspace disease not significantly changed from 06/22/2021 Signer Name: New Jenkins MD Signed: 06/24/2021 2:40 AM Workstation Name: [id number]
[2021-06-24] MEDS: NORepinephrine/NS 8 MG-250 ML 8 MG/250 ML INFUS..BTL IV SCH ×3 (03:08→23:08)
[2021-06-24] MEDS: LACOSAMIDE 100 MG in SODIUM CHLORIDE 0.9% 100 ML IV SCH ×2 (03:50→14:38)
[2021-06-24 05:10] LABS: Hematocrit 37.8 % (30.3-42.9); Mean Corpuscular HGB Conc 32 % (30-34); Mean Corpuscular Volume 89 fl (79-97); Red Blood Count 4.23 M/mm3 (3.65-5.03); Red Cell Distribution Width 16.8 % (13.2-15.2)
[2021-06-24 05:26] LABS: INR 1.9 (0.87-1.13)
[2021-06-24 05:33] LABS: Albumin 2.1 g/dL (3.9-5); Calcium 6.5 mg/dL (8.4-10.2)
[2021-06-24 05:34] LABS: Platelet Count 42 K/mm3 (140-440)
[2021-06-24] MEDS: LEVOTHYROXINE 100 MCG INJ IV SCH (06:08)
[2021-06-24] MEDS: MIDODRINE 5 MG TAB PO SCH ×2 (06:08→14:20)
[2021-06-24] MEDS: SODIUM BICARBONATE 150 MEQ in WATER FOR INJECTION (PF) 1,000 ML IV SCH ×2 (06:46→20:42)
[2021-06-24] MEDS: VASOPRESSIN 20 UNIT in SODIUM CHLORIDE 0.9% 100 ML IV SCH ×2 (07:21→18:04)
--- NOTE | 2021-06-24 08:33 | Electrocardiograph Report ---
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 Integrity Consultant: JUSTUS : 1960 Requested By: MOODY MERCHANT Order Number: [id number] Reading MD: Magan Benson Measurements Intervals [place] Rate: 125 P: 32 OH: 140 QRS: -49 QRSD: 93 T: 150 QT: 314 QTc: 453 Interpretive Statements Sinus tachycardia Left anterior fascicular block LVH with secondary repolarization abnormality Anterior infarct, old Compared to ECG 06/15/2021 07:54:25 Myocardial infarct finding now present Sinus rhythm no longer present Ventricular premature complex(es) no longer present Q waves no longer present Prolonged QT interval no longer present Electronically Signed On 06-24-2021 8:33:29 EDT by Magan Benson
[2021-06-24] MEDS: CEFEPIME/NS 2 GM/100 ML 2 GM/100 ML BAG IV SCH (08:38)
[2021-06-24 08:52] LABS: Band Neutrophils # (Manual) 4.3 K/mm3; Myelocytes # (Manual) 1.5 K/mm3; Ovalocytes 1+; Platelet Estimate Consistent w Auto; Total Cells Counted 100
[2021-06-24] MEDS: ZINC SULFATE 220 MG CAP PO SCH ×2 (09:32→21:05)
[2021-06-24] MEDS: FAMOTIDINE 20 MG/2 ML INJ IV SCH ×2 (09:33→21:05)
[2021-06-24] MEDS: ASCORBIC ACID 500 MG TAB PO SCH ×2 (09:33→21:05)
[2021-06-24] MEDS: SENNOSIDES/DOCUSATE SODIUM 8.6/50 MG TAB FEEDTUBE SCH ×2 (09:33→21:05)
[2021-06-24] MEDS: ENOXAPARIN 40 MG/0.4 ML INJ SUB-Q SCH (09:34)
[2021-06-24] MEDS: INSULIN NPH/REGULAR 70/30 INJ SUB-Q SCH (09:35)
[2021-06-24] MEDS: ACETAMINOPHEN 325 MG TAB PO PRN (11:45)
--- NOTE | 2021-06-24 11:46 | Progress Note ---
Assessment and Plan Cultures: SARS CoV2 PCR: positive 06/08/2021 blood culture: No growth Urine culture: skin ade. A/P: 76-year-old female with diabetes, hypertension, history of liver abscess, Klebsiella bacteremia admitted with fever, chills, shortness of breath: #Bilateral pneumonia: secondary to COVID-19. Unvaccinated. Chest x-ray revealed bilateral patchy multifocal pneumonia, CT chest, abdomen pelvis revealed no pulmonary embolism, showed bilateral pneumonia, no acute abnormality in the abdomen or pelvis. 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 Recs: Currently on high-dose methylprednisone Completed Remdesivir prophylactic anticoagulation based on d-dimer per hospital protocol Agree with empiric cefepime, started vancomycin pending blood culture results Follow-up blood cultures Ordered urine and tracheal aspirate cultures trend ferritin, d-dimer, CRP every 2-[address] [place] covering this weekend. Radha Butler MD [facility] O: [phone] F: [phone] Subjective Date of service: 06/24/21 Principal diagnosis: ARDS; Pneumonia; COVID-19 virus infection; TREMAINE; DM II; Morbid obesity Interval history: Fevers to 1-1.7 with a white count of 18.7. Blood cultures remain no growth so far. Imaging personally reviewed: Chest x-ray: Severe bilateral airspace unchanged. Objective - Exam Narrative Exam: Physical exam deferred to reduce risk of transmission of COVID-19. Please refer to primary team's note. - Constitutional Vitals: Vital Signs Temp Pulse Resp BP Pulse Ox 100.4 F H 113 H 30 H 107/41 90 06/24/21 07:57 06/24/21 11:37 06/24/21 11:00 06/24/21 11:00 06/24/21 11:37 Temperature -Last 24 Hours Temperature 100.4 F Temperature 101.5 F Temperature 101.7 F Temperature 98.0 F Temperature 97.2 F - Labs CBC & Chem 7: 06/24/21 04:55 06/24/21 04:55 Labs: Abnormal lab results 06/23/21 06/23/21 06/23/21 Range/Units 04:42 17:40 17:52 WBC (4.5-11.0) K/mm3 RDW (13.2-15.2) % Plt Count (140-440) K/mm3 Lymphocytes % (Manual) 2.0 L (13.4-35.0) % Nucleated RBC % 46.0 H (0.0-0.9) % Seg Neutrophils # Man 13.1 H (1.8-7.7) K/mm3 Lymphocytes # (Manual) 0.4 L (1.2-5.4) K/mm3 Monocytes # (Manual) 1.1 H (0.0-0.8) K/mm3 PT (12.2-14.9) Sec. INR (0.87-1.13) APTT (24.2-36.6) Sec. D-Dimer (0-234) ng/mlDDU ABG pH (7.320-7.450) POC ABG pCO2 (32.0-48.0) mmHg POC ABG pO2 (83-108) mmHg ABG Oxyhemoglobin (94-98) ABG Potassium (3.40-4.50) mmol/L ABG Glucose (65-95) mg/dL Sodium (137-145) mmol/L Potassium (3.6-5.0) mmol/L Chloride (98-107) mmol/L Carbon Dioxide (22-30) mmol/L BUN (7-17) mg/dL Creatinine (0.6-1.2) mg/dL Glucose (65-100) mg/dL POC Glucose 232 H (70-105) mg/dL Calcium (8.4-10.2) mg/dL Phosphorus (2.5-4.5) mg/dL Ferritin (10.0-200.0) ng/mL Total Protein (6.3-8.2) g/dL Albumin (3.9-5) g/dL Arterial Blood Glucose (65-95) mg/dL Arterial Blood Ionized Calcium (4.6-5.3) mg/dL Urine WBC (Auto) > 182.0 H (0.0-6.0) /HPF 06/23/21 06/23/21 06/23/21 Range/Units 21:12 Unknown Unknown WBC (4.5-11.0) K/mm3 RDW (13.2-15.2) % Plt Count (140-440) K/mm3 Lymphocytes % (Manual) (13.4-35.0) % Nucleated RBC % (0.0-0.9) % Seg Neutrophils # Man (1.8-7.7) K/mm3 Lymphocytes # (Manual) (1.2-5.4) K/mm3 Monocytes # (Manual) (0.0-0.8) K/mm3 PT (12.2-14.9) Sec. INR (0.87-1.13) APTT (24.2-36.6) Sec. D-Dimer 6308 H (0-234) ng/mlDDU ABG pH 7.214 L (7.320-7.450) POC ABG pCO2 60.2 H (32.0-48.0) mmHg POC ABG pO2 78.9 L (83-108) mmHg ABG Oxyhemoglobin 93.4 L (94-98) ABG Potassium 6.3 H (3.40-4.50) mmol/L ABG Glucose 338 H (65-95) mg/dL Sodium (137-145) mmol/L Potassium (3.6-5.0) mmol/L Chloride (98-107) mmol/L Carbon Dioxide (22-30) mmol/L BUN (7-17) mg/dL Creatinine (0.6-1.2) mg/dL Glucose (65-100) mg/dL POC Glucose (70-105) mg/dL Calcium (8.4-10.2) mg/dL Phosphorus (2.5-4.5) mg/dL Ferritin 1094.0 H (10.0-200.0) ng/mL Total Protein (6.3-8.2) g/dL Albumin (3.9-5) g/dL Arterial Blood Glucose 338 H (65-95) mg/dL Arterial Blood Ionized Calcium 4.1 L (4.6-5.3) mg/dL Urine WBC (Auto) (0.0-6.0) /HPF 06/23/21 06/23/21 06/24/21 Range/Units Unknown Unknown 00:03 WBC (4.5-11.0) K/mm3 RDW (13.2-15.2) % Plt Count (140-440) K/mm3 Lymphocytes % (Manual) (13.4-35.0) % Nucleated RBC % (0.0-0.9) % Seg Neutrophils # Man (1.8-7.7) K/mm3 Lymphocytes # (Manual) (1.2-5.4) K/mm3 Monocytes # (Manual) (0.0-0.8) K/mm3 PT 24.6 H (12.2-14.9) Sec. INR 2.18 H (0.87-1.13) APTT 43.8 H (24.2-36.6) Sec. D-Dimer (0-234) ng/mlDDU ABG pH (7.320-7.450) POC ABG pCO2 (32.0-48.0) mmHg POC ABG pO2 (83-108) mmHg ABG Oxyhemoglobin (94-98) ABG Potassium (3.40-4.50) mmol/L ABG Glucose (65-95) mg/dL Sodium 146 H (137-145) mmol/L Potassium 5.3 H (3.6-5.0) mmol/L Chloride 113.2 H (98-107) mmol/L Carbon Dioxide 20 L (22-30) mmol/L BUN 73 H (7-17) mg/dL Creatinine 4.2 H (0.6-1.2) mg/dL Glucose 234 H (65-100) mg/dL POC Glucose 265 H (70-105) mg/dL Calcium 6.3 L D (8.4-10.2) mg/dL Phosphorus (2.5-4.5) mg/dL Ferritin (10.0-200.0) ng/mL Total Protein 4.3 L (6.3-8.2) g/dL Albumin 2.0 L (3.9-5) g/dL Arterial Blood Glucose (65-95) mg/dL Arterial Blood Ionized Calcium (4.6-5.3) mg/dL Urine WBC (Auto) (0.0-6.0) /HPF 06/24/21 06/24/21 06/24/21 Range/Units 04:55 04:55 04:55 WBC 18.7 H (4.5-11.0) K/mm3 RDW 16.8 H (13.2-15.2) % Plt Count 42 L (140-440) K/mm3 Lymphocytes % (Manual) 1.0 L (13.4-35.0) % Nucleated RBC % 1.0 H (0.0-0.9) % Seg Neutrophils # Man 12.7 H (1.8-7.7) K/mm3 Lymphocytes # (Manual) 0.2 L (1.2-5.4) K/mm3 Monocytes # (Manual) (0.0-0.8) K/mm3 PT 22.2 H (12.2-14.9) Sec. INR 1.90 H (0.87-1.13) APTT (24.2-36.6) Sec. D-Dimer (0-234) ng/mlDDU ABG pH (7.320-7.450) POC ABG pCO2 (32.0-48.0) mmHg POC ABG pO2 (83-108) mmHg ABG Oxyhemoglobin (94-98) ABG Potassium (3.40-4.50) mmol/L ABG Glucose (65-95) mg/dL Sodium (137-145) mmol/L Potassium 6.0 H (3.6-5.0) mmol/L Chloride (98-107) mmol/L Carbon Dioxide 20 L (22-30) mmol/L BUN 86 H (7-17) mg/dL Creatinine 5.4 H (0.6-1.2) mg/dL Glucose 309 H (65-100) mg/dL POC Glucose (70-105) mg/dL Calcium 6.5 L (8.4-10.2) mg/dL Phosphorus 7.60 H (2.5-4.5) mg/dL Ferritin (10.0-200.0) ng/mL Total Protein 4.6 L (6.3-8.2) g/dL Albumin 2.1 L (3.9-5) g/dL Arterial Blood Glucose (65-95) mg/dL Arterial Blood Ionized Calcium (4.6-5.3) mg/dL Urine WBC (Auto) (0.0-6.0) /HPF 06/24/21 06/24/21 Range/Units 06:01 11:38 WBC (4.5-11.0) K/mm3 RDW (13.2-15.2) % Plt Count (140-440) K/mm3 Lymphocytes % (Manual) (13.4-35.0) % Nucleated RBC % (0.0-0.9) % Seg Neutrophils # Man (1.8-7.7) K/mm3 Lymphocytes # (Manual) (1.2-5.4) K/mm3 Monocytes # (Manual) (0.0-0.8) K/mm3 PT (12.2-14.9) Sec. INR (0.87-1.13) APTT (24.2-36.6) Sec. D-Dimer (0-234) ng/mlDDU ABG pH (7.320-7.450) POC ABG pCO2 (32.0-48.0) mmHg POC ABG pO2 (83-108) mmHg ABG Oxyhemoglobin (94-98) ABG Potassium (3.40-4.50) mmol/L ABG Glucose (65-95) mg/dL Sodium (137-145) mmol/L Potassium (3.6-5.0) mmol/L Chloride (98-107) mmol/L Carbon Dioxide (22-30) mmol/L BUN (7-17) mg/dL Creatinine (0.6-1.2) mg/dL Glucose (65-100) mg/dL POC Glucose 257 H 288 H (70-105) mg/dL Calcium (8.4-10.2) mg/dL Phosphorus (2.5-4.5) mg/dL Ferritin (10.0-200.0) ng/mL Total Protein (6.3-8.2) g/dL Albumin (3.9-5) g/dL Arterial Blood Glucose (65-95) mg/dL Arterial Blood Ionized Calcium (4.6-5.3) mg/dL Urine WBC (Auto) (0.0-6.0) /HPF
--- NOTE | 2021-06-24 13:04 | Progress Note ---
Assessment and Plan Assessment and Plan Assessment and plan: # Witnessed seizure today she is seizure free --started on Keppra 500 mg Iv bid she is with renal failure Cr#4.6 - on fentanyl 2-4 - Intubated -CT brain is pending -EEG showed slowing full report to follow -on Vimpat 100 mg bid --Keppra DC. #Severe COVID-19 breakthrough infection #COVID-19 pneumonia #Severe ARDS -patient vaccinated -continue isolation precautions -inflammatory markers q3d -Transition from BiPAP to mechanical ventilation due to worsening respiratory status. -completed 10 days of steroids; continue IV Solu-Medrol 100 mg every 8 hours given worsening respiratory status (started on 06/21/2021) -continue vitamin C, zinc and vitamin D #Acute hypoxic respiratory failure-worsening Transitioned from BiPAP to mechanical ventilation -Pending repeat ABG in the evening; low threshold for intubation -continue nebulized treatments -Pulmonary following, recs appreciated # Worsening kidney function -BUN/Cr#86/5.4 -Possible dialysis ? --Acute versus chronic renal failure -unknown baseline -avoid nephrotoxins -Nephrology managing #Acute encephalopathy -Delirium precautions -Discontinued nightly Seroquel and Xanax given altered mentation - on fentanyl 2-4 Mc #Hypernatremia -likely secondary to poor p.o. intake -D5W @75 cc/hr -continue 400 cc every 4 hour free water flushes by mouth #Insulin-dependent type 2 diabetes #Hypoglycemia -Glucose low as 58 -Discontinue D5W infusion. -Decreased Humulin to 15 units every 12 in the setting of patient being n.p.o. yet receiving high-dose IV steroids -continue sliding scale insulin -goal glucose 140-180 #Elevated troponin -resolved, likely type II #Hypertension -Controlled -continue BB and hydralazine at current doses #Hypothyroidism -Transitioned p.o. levothyroxine to IV levothyroxine 200 mcg #Protein calorie malnutrition -Nutrition consult #History of DVT -Discontinued Eliquis. Started Lovenox 1 mg/KG twice daily for therapeutic anticoagulation The high probability of a clinically significant, sudden or life threatening deterioration of the [neuro,resp, ID, renal] system(s) required my full and direct attention, intervention and personal management. The aggregate critical care time was [60] minutes. This time is in addition to time spent performing reported procedures but includes the following: [x] Data Review and interpretation [x] Patient assessment and monitoring of vital signs [x] Documentation [x] Medication orders and management Plan 1- Agree on stop Eliquis 2- CT brain when possible 3- Start Vimpat 100 mg Ib BID 4- Stop Keppra due to renal failure 5- EEG no sign of status will follow Subjective Date of service: 06/24/21 Principal diagnosis: ARDS; Pneumonia; COVID-19 virus infection; TREMAINE; DM II; Morbid obesity Interval history: Status is unchanged no recurrent seizure CT brain still pending due to hypoxemia and being on vent . Objective - Vital Sign Vital Signs - 12hr 06/24/21 06/24/21 06/24/21 01:00 01:11 01:21 Temperature 101.5 F H Pulse Rate 124 H 120 H 126 H Pulse Rate [ From Monitor] Respiratory 30 H 30 H 30 H Rate Blood Pressure 128/44 128/44 116/57 O2 Sat by Pulse 94 94 95 Oximetry 06/24/21 06/24/21 06/24/21 01:30 01:41 01:51 Temperature Pulse Rate 119 H 127 H 133 H Pulse Rate [ From Monitor] Respiratory 30 H 30 H 30 H Rate Blood Pressure 126/55 126/55 127/62 O2 Sat by Pulse 94 95 94 Oximetry 06/24/21 06/24/21 06/24/21 02:00 02:11 02:21 Temperature Pulse Rate 130 H 136 H 124 H Pulse Rate [ From Monitor] Respiratory 30 H 28 H 30 H Rate Blood Pressure 104/63 104/63 111/72 O2 Sat by Pulse 93 93 Oximetry 06/24/21 06/24/21 06/24/21 02:31 02:41 02:51 Temperature Pulse Rate 124 H 120 H 123 H Pulse Rate [ From Monitor] Respiratory 30 H 30 H 30 H Rate Blood Pressure 122/52 122/52 111/72 O2 Sat by Pulse 92 93 92 Oximetry 06/24/21 06/24/21 06/24/21 03:00 03:11 03:21 Temperature Pulse Rate 132 H 122 H 125 H Pulse Rate [ From Monitor] Respiratory 30 H 30 H 30 H Rate Blood Pressure 108/61 108/61 104/59 O2 Sat by Pulse 94 93 95 Oximetry 06/24/21 06/24/21 06/24/21 03:30 03:41 03:51 Temperature Pulse Rate 118 H 120 H 119 H Pulse Rate [ From Monitor] Respiratory 30 H 30 H 30 H Rate Blood Pressure 117/53 117/53 118/67 O2 Sat by Pulse 94 93 94 Oximetry 06/24/21 06/24/21 06/24/21 04:00 04:01 04:09 Temperature Pulse Rate 117 H 117 H Pulse Rate [ From Monitor] Respiratory 28 H Rate Blood Pressure 118/67 O2 Sat by Pulse 90 94 93 Oximetry 06/24/21 06/24/21 06/24/21 04:11 04:21 04:30 Temperature Pulse Rate 115 H 123 H 116 H Pulse Rate [ From Monitor] Respiratory 30 H 30 H 30 H Rate Blood Pressure 115/65 126/60 126/64 O2 Sat by Pulse 94 94 95 Oximetry 06/24/21 06/24/21 06/24/21 04:41 04:51 05:00 Temperature Pulse Rate 123 H 123 H 121 H Pulse Rate [ From Monitor] Respiratory 30 H 30 H 30 H Rate Blood Pressure 126/64 126/64 123/56 O2 Sat by Pulse 94 93 92 Oximetry 06/24/21 06/24/21 06/24/21 05:11 05:21 05:31 Temperature Pulse Rate 120 H 117 H 120 H Pulse Rate [ From Monitor] Respiratory 28 H 12 29 H Rate Blood Pressure 123/56 123/56 123/56 O2 Sat by Pulse 94 81 L 93 Oximetry 06/24/21 06/24/21 06/24/21 05:41 05:51 06:00 Temperature Pulse Rate 116 H 118 H 116 H Pulse Rate [ From Monitor] Respiratory 30 H 30 H 30 H Rate Blood Pressure 123/56 123/56 126/48 O2 Sat by Pulse 94 95 93 Oximetry 06/24/21 06/24/21 06/24/21 06:11 06:21 06:30 Temperature Pulse Rate 112 H 111 H 113 H Pulse Rate [ From Monitor] Respiratory 30 H 30 H 30 H Rate Blood Pressure 126/48 127/43 126/58 O2 Sat by Pulse 95 95 94 Oximetry 06/24/21 06/24/21 06/24/21 06:41 06:51 07:00 Temperature Pulse Rate 107 H 111 H 111 H Pulse Rate [ From Monitor] Respiratory 30 H 30 H 30 H Rate Blood Pressure 126/58 130/68 136/58 O2 Sat by Pulse 95 95 95 Oximetry 06/24/21 06/24/21 06/24/21 07:11 07:21 07:30 Temperature Pulse Rate 105 H 111 H 111 H Pulse Rate [ From Monitor] Respiratory 29 H 30 H 30 H Rate Blood Pressure 136/58 148/55 125/58 O2 Sat by Pulse 95 95 Oximetry 06/24/21 06/24/21 06/24/21 07:31 07:41 07:50 Temperature Pulse Rate 111 H 107 H 106 H Pulse Rate [ From Monitor] Respiratory 30 H 30 H Rate Blood Pressure 125/58 126/57 O2 Sat by Pulse 95 Oximetry 06/24/21 06/24/21 06/24/21 07:57 08:00 08:10 Temperature 100.4 F H Pulse Rate 111 H 109 H Pulse Rate [ 111 H From Monitor] Respiratory 30 H 30 H Rate Blood Pressure 117/57 117/57 O2 Sat by Pulse 96 Oximetry 06/24/21 06/24/21 06/24/21 08:21 08:30 08:41 Temperature Pulse Rate 109 H 111 H 105 H Pulse Rate [ From Monitor] Respiratory 30 H 30 H 30 H Rate Blood Pressure 118/52 116/58 116/58 O2 Sat by Pulse Oximetry 06/24/21 06/24/21 06/24/21 08:51 09:00 09:11 Temperature Pulse Rate 106 H 107 H 109 H Pulse Rate [ From Monitor] Respiratory 30 H 30 H 30 H Rate Blood Pressure 120/52 125/50 125/50 O2 Sat by Pulse Oximetry 06/24/21 06/24/21 06/24/21 09:21 09:30 09:41 Temperature Pulse Rate 108 H 99 H 114 H Pulse Rate [ From Monitor] Respiratory 30 H 30 H 30 H Rate Blood Pressure 115/39 108/56 108/56 O2 Sat by Pulse Oximetry 06/24/21 06/24/21 06/24/21 09:51 10:01 10:11 Temperature Pulse Rate 103 H 110 H 109 H Pulse Rate [ From Monitor] Respiratory 30 H 30 H 30 H Rate Blood Pressure 117/48 109/38 109/38 O2 Sat by Pulse Oximetry 06/24/21 06/24/21 06/24/21 10:21 10:30 10:41 Temperature Pulse Rate 107 H 108 H 107 H Pulse Rate [ From Monitor] Respiratory 30 H 30 H 30 H Rate Blood Pressure 105/34 100/51 100/51 O2 Sat by Pulse Oximetry 06/24/21 06/24/21 06/24/21 10:51 11:00 11:07 Temperature Pulse Rate 108 H 108 H 107 H Pulse Rate [ From Monitor] Respiratory 30 H 30 H Rate Blood Pressure 100/44 107/41 O2 Sat by Pulse 96 Oximetry 06/24/21 06/24/21 06/24/21 11:35 11:37 12:00 Temperature 101.7 F H Pulse Rate 113 H Pulse Rate [ 113 H From Monitor] Respiratory Rate Blood Pressure O2 Sat by Pulse 90 Oximetry - General Apperance Constitutional: comfortable - EENT EENT: PERRL, mucous membranes moist - Respiratory Respiratory: chest non-tender, decreased breath sounds, rhonchi - Cardiovascular Cardiovascular: other (AF) Extremities: non-pitting edema - Gastrointestinal Gastrointestinal: normoactive bowel sounds - Integumentary Integumentary: normal - Neurologic Cranial nerve examination: other (EOMI ,corneal intact , pupils reactive, no facial asymmetry , intubated and sedated) Detailed motor examination: other (no movment to sternal rub absent reflexes bilateral) - Laboratory Findings CBC and BMP: 06/24/21 04:55 06/24/21 04:55 Abnormal Lab Findings: Abnormal Labs 06/07/21 06/07/21 06/07/21 19:11 19:11 19:11 WBC 11.5 H RBC Hgb Hct RDW Plt Count Lymph % (Auto) 6.5 L Lymph # (Auto) 0.8 L Seg Neutrophils % 89.9 H Seg Neuts % (Manual) Lymphocytes % (Manual) Nucleated RBC % Seg Neutrophils # 10.4 H Seg Neutrophils # Man Lymphocytes # (Manual) Monocytes # (Manual) PT INR APTT D-Dimer 5334.05 H ABG pH POC ABG pCO2 POC ABG pO2 ABG pO2 ABG O2 Saturation ABG Base Excess ABG Oxyhemoglobin ABG Methemoglobin ABG Potassium ABG Chloride ABG Glucose Oxyhemoglobin Carboxyhemoglobin Sodium Potassium Chloride Carbon Dioxide BUN 67 H Creatinine 4.8 H Glucose 244 H POC Glucose Hemoglobin A1c Calcium Phosphorus Magnesium Ferritin Lactate Dehydrogenase 796 H Troponin T 0.043 H C-Reactive Protein 19.60 H Total Protein 8.4 H Albumin 3.1 L Xpkuk-9-Mqavyvyxl Upzyw-9-Vmdshlnth Beta Globulins PEP Interpretation Triglycerides 209 H HDL Cholesterol 35 L Arterial Blood Glucose Arterial Blood Ionized Calcium Urine WBC (Auto) Coronavirus (PCR) 06/07/21 06/07/21 06/08/21 19:11 19:11 03:04 WBC RBC Hgb Hct RDW Plt Count Lymph % (Auto) Lymph # (Auto) Seg Neutrophils % Seg Neuts % (Manual) Lymphocytes % (Manual) Nucleated RBC % Seg Neutrophils # Seg Neutrophils # Man Lymphocytes # (Manual) Monocytes # (Manual) PT INR APTT D-Dimer ABG pH POC ABG pCO2 POC ABG pO2 ABG pO2 ABG O2 Saturation ABG Base Excess ABG Oxyhemoglobin ABG Methemoglobin ABG Potassium ABG Chloride ABG Glucose Oxyhemoglobin Carboxyhemoglobin Sodium Potassium Chloride Carbon Dioxide BUN Creatinine Glucose POC Glucose Hemoglobin A1c 9.5 H Calcium Phosphorus Magnesium Ferritin 1230.0 H Lactate Dehydrogenase Troponin T 0.031 H D C-Reactive Protein Total Protein Albumin Xkbuu-1-Whonvikpa Stmsi-2-Yqytekmqt Beta Globulins PEP Interpretation Triglycerides HDL Cholesterol Arterial Blood Glucose Arterial Blood Ionized Calcium Urine WBC (Auto) Coronavirus (PCR) 06/08/21 06/08/21 06/08/21 03:44 03:44 08:21 WBC 12.9 H RBC Hgb Hct RDW Plt Count Lymph % (Auto) Lymph # (Auto) Seg Neutrophils % Seg Neuts % (Manual) 95.0 H Lymphocytes % (Manual) 3.0 L Nucleated RBC % Seg Neutrophils # Seg Neutrophils # Man 12.3 H Lymphocytes # (Manual) 0.4 L Monocytes # (Manual) PT INR APTT D-Dimer ABG pH POC ABG pCO2 POC ABG pO2 ABG pO2 ABG O2 Saturation ABG Base Excess ABG Oxyhemoglobin ABG Methemoglobin ABG Potassium ABG Chloride ABG Glucose Oxyhemoglobin Carboxyhemoglobin Sodium Potassium Chloride Carbon Dioxide 20 L D BUN 68 H Creatinine 4.7 H Glucose 218 H POC Glucose 273 H Hemoglobin A1c Calcium Phosphorus Magnesium Ferritin Lactate Dehydrogenase Troponin T C-Reactive Protein Total Protein Albumin 3.4 L Bidqg-6-Dezipfvrn Vboiw-3-Pnzvniutm Beta Globulins PEP Interpretation Triglycerides HDL Cholesterol Arterial Blood Glucose Arterial Blood Ionized Calcium Urine WBC (Auto) Coronavirus (PCR) 06/08/21 06/08/21 06/08/21 08:30 11:00 17:29 WBC RBC Hgb Hct RDW Plt Count Lymph % (Auto) Lymph # (Auto) Seg Neutrophils % Seg Neuts % (Manual) Lymphocytes % (Manual) Nucleated RBC % Seg Neutrophils # Seg Neutrophils # Man Lymphocytes # (Manual) Monocytes # (Manual) PT INR APTT D-Dimer ABG pH POC ABG pCO2 POC ABG pO2 ABG pO2 ABG O2 Saturation ABG Base Excess ABG Oxyhemoglobin ABG Methemoglobin ABG Potassium ABG Chloride ABG Glucose Oxyhemoglobin Carboxyhemoglobin Sodium Potassium Chloride Carbon Dioxide BUN Creatinine Glucose POC Glucose 239 H 220 H Hemoglobin A1c Calcium Phosphorus Magnesium Ferritin Lactate Dehydrogenase Troponin T C-Reactive Protein Total Protein Albumin Eacgf-4-Qcvsqmjhi Byocm-2-Ifqnqxejf Beta Globulins PEP Interpretation Triglycerides HDL Cholesterol Arterial Blood Glucose Arterial Blood Ionized Calcium Urine WBC (Auto) Coronavirus (PCR) Positive A 06/08/21 06/09/21 06/09/21 21:09 08:07 08:42 WBC 14.7 H RBC 5.28 H Hgb 14.9 H Hct 45.0 H D RDW Plt Count Lymph % (Auto) 4.9 L Lymph # (Auto) 0.7 L Seg Neutrophils % 90.0 H Seg Neuts % (Manual) Lymphocytes % (Manual) Nucleated RBC % Seg Neutrophils # 13.2 H Seg Neutrophils # Man Lymphocytes # (Manual) Monocytes # (Manual) PT INR APTT D-Dimer ABG pH POC ABG pCO2 POC ABG pO2 ABG pO2 ABG O2 Saturation ABG Base Excess ABG Oxyhemoglobin ABG Methemoglobin ABG Potassium ABG Chloride ABG Glucose Oxyhemoglobin Carboxyhemoglobin Sodium Potassium Chloride Carbon Dioxide BUN Creatinine Glucose POC Glucose 242 H 230 H Hemoglobin A1c Calcium Phosphorus Magnesium Ferritin Lactate Dehydrogenase Troponin T C-Reactive Protein Total Protein Albumin Tenax-2-Heqhyimgj Vyevv-4-Xivwsauew Beta Globulins PEP Interpretation Triglycerides HDL Cholesterol Arterial Blood Glucose Arterial Blood Ionized Calcium Urine WBC (Auto) Coronavirus (PCR) 06/09/21 06/09/21 06/09/21 08:42 12:05 12:19 WBC RBC Hgb Hct RDW Plt Count Lymph % (Auto) Lymph # (Auto) Seg Neutrophils % Seg Neuts % (Manual) Lymphocytes % (Manual) Nucleated RBC % Seg Neutrophils # Seg Neutrophils # Man Lymphocytes # (Manual) Monocytes # (Manual) PT INR APTT D-Dimer ABG pH POC ABG pCO2 POC ABG pO2 71.4 L ABG pO2 ABG O2 Saturation ABG Base Excess ABG Oxyhemoglobin 92.9 L ABG Methemoglobin ABG Potassium ABG Chloride 109.0 H ABG Glucose 287 H Oxyhemoglobin Carboxyhemoglobin 0.4 L Sodium Potassium Chloride Carbon Dioxide 17 L BUN 74 H Creatinine 3.7 H Glucose 259 H POC Glucose 274 H Hemoglobin A1c Calcium 8.3 L Phosphorus Magnesium Ferritin Lactate Dehydrogenase Troponin T C-Reactive Protein Total Protein Albumin Gyfty-9-Ldcjmrhgk Akgpm-3-Ffxkpuhek Beta Globulins PEP Interpretation Triglycerides HDL Cholesterol Arterial Blood Glucose 287 H Arterial Blood Ionized Calcium Urine WBC (Auto) Coronavirus (PCR) 06/09/21 06/09/21 06/10/21 16:59 21:06 08:25 WBC RBC Hgb Hct RDW Plt Count Lymph % (Auto) Lymph # (Auto) Seg Neutrophils % Seg Neuts % (Manual) Lymphocytes % (Manual) Nucleated RBC % Seg Neutrophils # Seg Neutrophils # Man Lymphocytes # (Manual) Monocytes # (Manual) PT INR APTT D-Dimer ABG pH POC ABG pCO2 POC ABG pO2 ABG pO2 ABG O2 Saturation ABG Base Excess ABG Oxyhemoglobin ABG Methemoglobin ABG Potassium ABG Chloride ABG Glucose Oxyhemoglobin Carboxyhemoglobin Sodium Potassium Chloride Carbon Dioxide BUN Creatinine Glucose POC Glucose 268 H 263 H 280 H Hemoglobin A1c Calcium Phosphorus Magnesium Ferritin Lactate Dehydrogenase Troponin T C-Reactive Protein Total Protein Albumin Rvwpr-5-Xinoutwwn Anxwd-0-Idkpzvdpr Beta Globulins PEP Interpretation Triglycerides HDL Cholesterol Arterial Blood Glucose Arterial Blood Ionized Calcium Urine WBC (Auto) Coronavirus (PCR) 06/10/21 06/10/21 06/10/21 12:07 15:38 21:04 WBC RBC Hgb Hct RDW Plt Count Lymph % (Auto) Lymph # (Auto) Seg Neutrophils % Seg Neuts % (Manual) Lymphocytes % (Manual) Nucleated RBC % Seg Neutrophils # Seg Neutrophils # Man Lymphocytes # (Manual) Monocytes # (Manual) PT INR APTT D-Dimer ABG pH POC ABG pCO2 POC ABG pO2 ABG pO2 ABG O2 Saturation ABG Base Excess ABG Oxyhemoglobin ABG Methemoglobin ABG Potassium ABG Chloride ABG Glucose Oxyhemoglobin Carboxyhemoglobin Sodium Potassium Chloride Carbon Dioxide BUN Creatinine Glucose POC Glucose 247 H 269 H 195 H Hemoglobin A1c Calcium Phosphorus Magnesium Ferritin Lactate Dehydrogenase Troponin T C-Reactive Protein Total Protein Albumin Oiaid-3-Vloucielq Jgtmo-1-Hfegpakhw Beta Globulins PEP Interpretation Triglycerides HDL Cholesterol Arterial Blood Glucose Arterial Blood Ionized Calcium Urine WBC (Auto) Coronavirus (PCR) 06/10/21 06/10/21 06/10/21 23:14 23:14 23:14 WBC RBC Hgb Hct RDW 15.3 H Plt Count Lymph % (Auto) Lymph # (Auto) Seg Neutrophils % Seg Neuts % (Manual) 93.0 H Lymphocytes % (Manual) 2.0 L Nucleated RBC % 3.0 H Seg Neutrophils # Seg Neutrophils # Man 10.2 H Lymphocytes # (Manual) 0.2 L Monocytes # (Manual) PT INR APTT D-Dimer ABG pH POC ABG pCO2 POC ABG pO2 ABG pO2 ABG O2 Saturation ABG Base Excess ABG Oxyhemoglobin ABG Methemoglobin ABG Potassium ABG Chloride ABG Glucose Oxyhemoglobin Carboxyhemoglobin Sodium 148 H D Potassium Chloride 111.7 H Carbon Dioxide 20 L BUN 70 H Creatinine 3.2 H Glucose 186 H POC Glucose Hemoglobin A1c Calcium Phosphorus Magnesium Ferritin Lactate Dehydrogenase Troponin T C-Reactive Protein Total Protein Albumin 2.6 L Dehif-7-Xpofmdmir 0.5 H Fswgg-7-Mnfejyqws 1.7 H Beta Globulins 0.6 H PEP Interpretation see below H Triglycerides HDL Cholesterol Arterial Blood Glucose Arterial Blood Ionized Calcium Urine WBC (Auto) Coronavirus (PCR) 06/10/21 06/10/21 06/10/21 23:14 23:14 23:14 WBC RBC Hgb Hct RDW Plt Count Lymph % (Auto) Lymph # (Auto) Seg Neutrophils % Seg Neuts % (Manual) Lymphocytes % (Manual) Nucleated RBC % Seg Neutrophils # Seg Neutrophils # Man Lymphocytes # (Manual) Monocytes # (Manual) PT INR APTT D-Dimer > 45472 H ABG pH POC ABG pCO2 POC ABG pO2 ABG pO2 ABG O2 Saturation ABG Base Excess ABG Oxyhemoglobin ABG Methemoglobin ABG Potassium ABG Chloride ABG Glucose Oxyhemoglobin Carboxyhemoglobin Sodium Potassium Chloride Carbon Dioxide BUN Creatinine Glucose POC Glucose Hemoglobin A1c Calcium Phosphorus Magnesium 2.50 H Ferritin 1319.0 H Lactate Dehydrogenase 606 H Troponin T C-Reactive Protein Total Protein Albumin Olrkm-6-Arqbtocvc Xcscq-1-Lubbnmtbq Beta Globulins PEP Interpretation Triglycerides HDL Cholesterol Arterial Blood Glucose Arterial Blood Ionized Calcium Urine WBC (Auto) Coronavirus (PCR) 06/11/21 06/11/21 06/11/21 07:34 10:57 10:57 WBC RBC Hgb Hct RDW Plt Count Lymph % (Auto) Lymph # (Auto) Seg Neutrophils % Seg Neuts % (Manual) Lymphocytes % (Manual) Nucleated RBC % Seg Neutrophils # Seg Neutrophils # Man Lymphocytes # (Manual) Monocytes # (Manual) PT INR APTT D-Dimer > 71234 H ABG pH POC ABG pCO2 POC ABG pO2 ABG pO2 ABG O2 Saturation ABG Base Excess ABG Oxyhemoglobin ABG Methemoglobin ABG Potassium ABG Chloride ABG Glucose Oxyhemoglobin Carboxyhemoglobin Sodium Potassium Chloride Carbon Dioxide BUN Creatinine Glucose POC Glucose 169 H Hemoglobin A1c Calcium Phosphorus Magnesium Ferritin 1300.0 H Lactate Dehydrogenase Troponin T C-Reactive Protein Total Protein Albumin Wgubk-9-Qnwgoykny Upotl-8-Jfbtrvfxe Beta Globulins PEP Interpretation Triglycerides HDL Cholesterol Arterial Blood Glucose Arterial Blood Ionized Calcium Urine WBC (Auto) Coronavirus (PCR) 06/11/21 06/11/21 06/11/21 10:58 10:58 11:49 WBC 11.3 H RBC Hgb Hct RDW 15.3 H Plt Count Lymph % (Auto) Lymph # (Auto) Seg Neutrophils % Seg Neuts % (Manual) 88.0 H Lymphocytes % (Manual) 6.0 L Nucleated RBC % Seg Neutrophils # Seg Neutrophils # Man 9.9 H Lymphocytes # (Manual) 0.7 L Monocytes # (Manual) PT INR APTT D-Dimer ABG pH POC ABG pCO2 POC ABG pO2 ABG pO2 ABG O2 Saturation ABG Base Excess ABG Oxyhemoglobin ABG Methemoglobin ABG Potassium ABG Chloride ABG Glucose Oxyhemoglobin Carboxyhemoglobin Sodium 150 H Potassium 3.4 L Chloride 114.8 H Carbon Dioxide 21 L BUN 65 H Creatinine 2.9 H Glucose 180 H POC Glucose 191 H Hemoglobin A1c Calcium Phosphorus Magnesium 2.50 H Ferritin Lactate Dehydrogenase Troponin T C-Reactive Protein 1.90 H Total Protein Albumin Vremu-1-Cpybgrbwy Dltel-4-Rvfarkqea Beta Globulins PEP Interpretation Triglycerides HDL Cholesterol Arterial Blood Glucose Arterial Blood Ionized Calcium Urine WBC (Auto) Coronavirus (PCR) 06/11/21 06/11/21 06/12/21 15:49 21:16 04:22 WBC RBC Hgb Hct RDW Plt Count Lymph % (Auto) Lymph # (Auto) Seg Neutrophils % Seg Neuts % (Manual) Lymphocytes % (Manual) Nucleated RBC % Seg Neutrophils # Seg Neutrophils # Man Lymphocytes # (Manual) Monocytes # (Manual) PT INR APTT D-Dimer ABG pH 7.318 L POC ABG pCO2 POC ABG pO2 ABG pO2 51.5 L ABG O2 Saturation 86.9 L ABG Base Excess -5.6 L ABG Oxyhemoglobin ABG Methemoglobin ABG Potassium ABG Chloride ABG Glucose Oxyhemoglobin 85.5 L Carboxyhemoglobin Sodium Potassium Chloride Carbon Dioxide BUN Creatinine Glucose POC Glucose 185 H 200 H Hemoglobin A1c Calcium Phosphorus Magnesium Ferritin Lactate Dehydrogenase Troponin T C-Reactive Protein Total Protein Albumin Voxgi-9-Vrvpcubcw Chefw-0-Uyslzwgtd Beta Globulins PEP Interpretation Triglycerides HDL Cholesterol Arterial Blood Glucose Arterial Blood Ionized Calcium Urine WBC (Auto) Coronavirus (PCR) 06/12/21 06/12/21 06/12/21 07:41 08:31 08:31 WBC 12.4 H RBC Hgb Hct RDW 15.3 H Plt Count Lymph % (Auto) 8.5 L Lymph # (Auto) 1.1 L Seg Neutrophils % 88.1 H Seg Neuts % (Manual) Lymphocytes % (Manual) Nucleated RBC % Seg Neutrophils # 10.9 H Seg Neutrophils # Man Lymphocytes # (Manual) Monocytes # (Manual) PT INR APTT D-Dimer ABG pH POC ABG pCO2 POC ABG pO2 ABG pO2 ABG O2 Saturation ABG Base Excess ABG Oxyhemoglobin ABG Methemoglobin ABG Potassium ABG Chloride ABG Glucose Oxyhemoglobin Carboxyhemoglobin Sodium 151 H Potassium Chloride 117.3 H Carbon Dioxide 21 L BUN 61 H Creatinine 2.5 H Glucose 165 H POC Glucose 165 H Hemoglobin A1c Calcium 8.3 L Phosphorus Magnesium Ferritin Lactate Dehydrogenase Troponin T C-Reactive Protein Total Protein Albumin Bjqjf-9-Wetdoretm Axzsw-7-Xqerrmoxd Beta Globulins PEP Interpretation Triglycerides HDL Cholesterol Arterial Blood Glucose Arterial Blood Ionized Calcium Urine WBC (Auto) Coronavirus (PCR) 06/12/21 06/12/21 06/12/21 08:31 10:32 15:47 WBC RBC Hgb Hct RDW Plt Count Lymph % (Auto) Lymph # (Auto) Seg Neutrophils % Seg Neuts % (Manual) Lymphocytes % (Manual) Nucleated RBC % Seg Neutrophils # Seg Neutrophils # Man Lymphocytes # (Manual) Monocytes # (Manual) PT INR APTT D-Dimer ABG pH POC ABG pCO2 POC ABG pO2 ABG pO2 ABG O2 Saturation ABG Base Excess ABG Oxyhemoglobin ABG Methemoglobin ABG Potassium ABG Chloride ABG Glucose Oxyhemoglobin Carboxyhemoglobin Sodium Potassium Chloride Carbon Dioxide BUN Creatinine Glucose POC Glucose 156 H 176 H Hemoglobin A1c Calcium Phosphorus Magnesium 2.50 H Ferritin Lactate Dehydrogenase Troponin T C-Reactive Protein Total Protein Albumin Xtshe-9-Dijipzibx Rbbpx-2-Bcijkepge Beta Globulins PEP Interpretation Triglycerides HDL Cholesterol Arterial Blood Glucose Arterial Blood Ionized Calcium Urine WBC (Auto) Coronavirus (PCR) 06/12/21 06/13/21 06/13/21 21:50 07:42 07:42 WBC 14.1 H RBC Hgb Hct RDW 15.3 H Plt Count Lymph % (Auto) Lymph # (Auto) Seg Neutrophils % Seg Neuts % (Manual) 87.0 H Lymphocytes % (Manual) 7.0 L Nucleated RBC % 3.0 H Seg Neutrophils # Seg Neutrophils # Man 12.3 H Lymphocytes # (Manual) 1.0 L Monocytes # (Manual) PT INR APTT D-Dimer ABG pH POC ABG pCO2 POC ABG pO2 ABG pO2 ABG O2 Saturation ABG Base Excess ABG Oxyhemoglobin ABG Methemoglobin ABG Potassium ABG Chloride ABG Glucose Oxyhemoglobin Carboxyhemoglobin Sodium 151 H Potassium 3.5 L Chloride 116.0 H Carbon Dioxide BUN 61 H Creatinine 2.3 H Glucose 135 H POC Glucose 165 H Hemoglobin A1c Calcium Phosphorus Magnesium 2.50 H Ferritin Lactate Dehydrogenase Troponin T C-Reactive Protein Total Protein Albumin Rniab-8-Ejjxyhxyg Bierb-0-Abgevkzpo Beta Globulins PEP Interpretation Triglycerides HDL Cholesterol Arterial Blood Glucose Arterial Blood Ionized Calcium Urine WBC (Auto) Coronavirus (PCR) 06/13/21 06/13/21 06/13/21 08:10 11:10 18:15 WBC RBC Hgb Hct RDW Plt Count Lymph % (Auto) Lymph # (Auto) Seg Neutrophils % Seg Neuts % (Manual) Lymphocytes % (Manual) Nucleated RBC % Seg Neutrophils # Seg Neutrophils # Man Lymphocytes # (Manual) Monocytes # (Manual) PT INR APTT D-Dimer ABG pH POC ABG pCO2 POC ABG pO2 ABG pO2 ABG O2 Saturation ABG Base Excess ABG Oxyhemoglobin ABG Methemoglobin ABG Potassium ABG Chloride ABG Glucose Oxyhemoglobin Carboxyhemoglobin Sodium Potassium Chloride Carbon Dioxide BUN Creatinine Glucose POC Glucose 118 H 139 H 179 H Hemoglobin A1c Calcium Phosphorus Magnesium Ferritin Lactate Dehydrogenase Troponin T C-Reactive Protein Total Protein Albumin Odesv-5-Bkvegjvku Fnfyd-8-Walhvdvak Beta Globulins PEP Interpretation Triglycerides HDL Cholesterol Arterial Blood Glucose Arterial Blood Ionized Calcium Urine WBC (Auto) Coronavirus (PCR) 06/13/21 06/13/21 06/14/21 21:54 23:27 04:42 WBC 12.8 H RBC Hgb Hct RDW 15.3 H Plt Count Lymph % (Auto) Lymph # (Auto) Seg Neutrophils % Seg Neuts % (Manual) 92.0 H Lymphocytes % (Manual) 1.0 L Nucleated RBC % 2.0 H Seg Neutrophils # Seg Neutrophils # Man 11.8 H Lymphocytes # (Manual) 0.1 L Monocytes # (Manual) PT INR APTT D-Dimer ABG pH POC ABG pCO2 POC ABG pO2 ABG pO2 ABG O2 Saturation ABG Base Excess ABG Oxyhemoglobin ABG Methemoglobin ABG Potassium ABG Chloride ABG Glucose Oxyhemoglobin Carboxyhemoglobin Sodium 152 H Potassium Chloride 116.3 H Carbon Dioxide 21 L BUN 67 H Creatinine 2.5 H Glucose 212 H POC Glucose 193 H Hemoglobin A1c Calcium Phosphorus Magnesium Ferritin Lactate Dehydrogenase Troponin T C-Reactive Protein Total Protein Albumin Wjmrt-2-Vrugmmvvd Auurw-3-Mzftsckvp Beta Globulins PEP Interpretation Triglycerides HDL Cholesterol Arterial Blood Glucose Arterial Blood Ionized Calcium Urine WBC (Auto) Coronavirus (PCR) 06/14/21 06/14/21 06/14/21 04:42 04:42 07:33 WBC RBC Hgb Hct RDW Plt Count Lymph % (Auto) Lymph # (Auto) Seg Neutrophils % Seg Neuts % (Manual) Lymphocytes % (Manual) Nucleated RBC % Seg Neutrophils # Seg Neutrophils # Man Lymphocytes # (Manual) Monocytes # (Manual) PT INR APTT D-Dimer ABG pH POC ABG pCO2 POC ABG pO2 ABG pO2 ABG O2 Saturation ABG Base Excess ABG Oxyhemoglobin ABG Methemoglobin ABG Potassium ABG Chloride ABG Glucose Oxyhemoglobin Carboxyhemoglobin Sodium 152 H Potassium Chloride 115.3 H Carbon Dioxide BUN 68 H Creatinine 2.5 H Glucose 188 H POC Glucose 173 H Hemoglobin A1c Calcium Phosphorus Magnesium 2.40 H Ferritin Lactate Dehydrogenase Troponin T C-Reactive Protein Total Protein Albumin Vqnhd-5-Rlpunwtxj Bvyky-6-Lkwfxbngt Beta Globulins PEP Interpretation Triglycerides HDL Cholesterol Arterial Blood Glucose Arterial Blood Ionized Calcium Urine WBC (Auto) Coronavirus (PCR) 06/14/21 06/14/21 06/14/21 10:57 15:53 23:40 WBC RBC Hgb Hct RDW Plt Count Lymph % (Auto) Lymph # (Auto) Seg Neutrophils % Seg Neuts % (Manual) Lymphocytes % (Manual) Nucleated RBC % Seg Neutrophils # Seg Neutrophils # Man Lymphocytes # (Manual) Monocytes # (Manual) PT INR APTT D-Dimer ABG pH POC ABG pCO2 POC ABG pO2 ABG pO2 ABG O2 Saturation ABG Base Excess ABG Oxyhemoglobin ABG Methemoglobin ABG Potassium ABG Chloride ABG Glucose Oxyhemoglobin Carboxyhemoglobin Sodium Potassium Chloride Carbon Dioxide BUN Creatinine Glucose POC Glucose 195 H 226 H 235 H Hemoglobin A1c Calcium Phosphorus Magnesium Ferritin Lactate Dehydrogenase Troponin T C-Reactive Protein Total Protein Albumin Wizap-3-Ojbdsguxf Wzafl-4-Rorkzolgo Beta Globulins PEP Interpretation Triglycerides HDL Cholesterol Arterial Blood Glucose Arterial Blood Ionized Calcium Urine WBC (Auto) Coronavirus (PCR) 06/15/21 06/15/21 06/15/21 07:38 07:38 07:38 WBC 14.3 H RBC Hgb Hct RDW Plt Count Lymph % (Auto) Lymph # (Auto) Seg Neutrophils % Seg Neuts % (Manual) 95.0 H Lymphocytes % (Manual) 1.0 L Nucleated RBC % Seg Neutrophils # Seg Neutrophils # Man 13.6 H Lymphocytes # (Manual) 0.1 L Monocytes # (Manual) PT INR APTT D-Dimer > 22940 H ABG pH POC ABG pCO2 POC ABG pO2 ABG pO2 ABG O2 Saturation ABG Base Excess ABG Oxyhemoglobin ABG Methemoglobin ABG Potassium ABG Chloride ABG Glucose Oxyhemoglobin Carboxyhemoglobin Sodium 153 H Potassium 3.5 L Chloride 115.9 H Carbon Dioxide BUN 55 H Creatinine 2.1 H Glucose 213 H POC Glucose Hemoglobin A1c Calcium Phosphorus Magnesium Ferritin Lactate Dehydrogenase Troponin T C-Reactive Protein Total Protein Albumin Yagbo-0-Normhtyad Ntxvx-6-Vldvyrfsw Beta Globulins PEP Interpretation Triglycerides HDL Cholesterol Arterial Blood Glucose Arterial Blood Ionized Calcium Urine WBC (Auto) Coronavirus (PCR) 06/15/21 06/15/21 06/15/21 07:38 09:21 11:46 WBC RBC Hgb Hct RDW Plt Count Lymph % (Auto) Lymph # (Auto) Seg Neutrophils % Seg Neuts % (Manual) Lymphocytes % (Manual) Nucleated RBC % Seg Neutrophils # Seg Neutrophils # Man Lymphocytes # (Manual) Monocytes # (Manual) PT INR APTT D-Dimer ABG pH POC ABG pCO2 POC ABG pO2 ABG pO2 ABG O2 Saturation ABG Base Excess ABG Oxyhemoglobin ABG Methemoglobin ABG Potassium ABG Chloride ABG Glucose Oxyhemoglobin Carboxyhemoglobin Sodium Potassium Chloride Carbon Dioxide BUN Creatinine Glucose POC Glucose 202 H 233 H Hemoglobin A1c Calcium Phosphorus Magnesium Ferritin 1246.0 H Lactate Dehydrogenase Troponin T C-Reactive Protein Total Protein Albumin Nvucq-2-Vldilyslu Wgjwv-7-Gfizfdgsk Beta Globulins PEP Interpretation Triglycerides HDL Cholesterol Arterial Blood Glucose Arterial Blood Ionized Calcium Urine WBC (Auto) Coronavirus (PCR) 06/15/21 06/16/21 06/16/21 17:32 05:44 07:48 WBC RBC Hgb Hct RDW Plt Count Lymph % (Auto) Lymph # (Auto) Seg Neutrophils % Seg Neuts % (Manual) Lymphocytes % (Manual) Nucleated RBC % Seg Neutrophils # Seg Neutrophils # Man Lymphocytes # (Manual) Monocytes # (Manual) PT INR APTT D-Dimer ABG pH POC ABG pCO2 POC ABG pO2 ABG pO2 ABG O2 Saturation ABG Base Excess ABG Oxyhemoglobin ABG Methemoglobin ABG Potassium ABG Chloride ABG Glucose Oxyhemoglobin Carboxyhemoglobin Sodium 154 H Potassium Chloride 117.2 H Carbon Dioxide BUN 54 H Creatinine 2.0 H Glucose 120 H POC Glucose 179 H 109 H Hemoglobin A1c Calcium Phosphorus Magnesium Ferritin Lactate Dehydrogenase Troponin T C-Reactive Protein Total Protein Albumin Mymzz-3-Bpqpkwvrf Cybjz-9-Jnnxcftax Beta Globulins PEP Interpretation Triglycerides HDL Cholesterol Arterial Blood Glucose Arterial Blood Ionized Calcium Urine WBC (Auto) Coronavirus (PCR) 06/16/21 06/16/21 06/16/21 11:13 15:22 21:15 WBC RBC Hgb Hct RDW Plt Count Lymph % (Auto) Lymph # (Auto) Seg Neutrophils % Seg Neuts % (Manual) Lymphocytes % (Manual) Nucleated RBC % Seg Neutrophils # Seg Neutrophils # Man Lymphocytes # (Manual) Monocytes # (Manual) PT INR APTT D-Dimer ABG pH POC ABG pCO2 POC ABG pO2 ABG pO2 ABG O2 Saturation ABG Base Excess ABG Oxyhemoglobin ABG Methemoglobin ABG Potassium ABG Chloride ABG Glucose Oxyhemoglobin Carboxyhemoglobin Sodium Potassium Chloride Carbon Dioxide BUN Creatinine Glucose POC Glucose 222 H 218 H 250 H Hemoglobin A1c Calcium Phosphorus Magnesium Ferritin Lactate Dehydrogenase Troponin T C-Reactive Protein Total Protein Albumin Sbzqm-3-Rcqxcnltq Euyze-7-Efcnqdumr Beta Globulins PEP Interpretation Triglycerides HDL Cholesterol Arterial Blood Glucose Arterial Blood Ionized Calcium Urine WBC (Auto) Coronavirus (PCR) 06/17/21 06/17/21 06/17/21 07:55 09:35 09:35 WBC RBC Hgb Hct RDW 15.7 H Plt Count 99 L Lymph % (Auto) Lymph # (Auto) Seg Neutrophils % Seg Neuts % (Manual) Lymphocytes % (Manual) Nucleated RBC % Seg Neutrophils # Seg Neutrophils # Man Lymphocytes # (Manual) Monocytes # (Manual) PT INR APTT D-Dimer ABG pH POC ABG pCO2 POC ABG pO2 ABG pO2 ABG O2 Saturation ABG Base Excess ABG Oxyhemoglobin ABG Methemoglobin ABG Potassium ABG Chloride ABG Glucose Oxyhemoglobin Carboxyhemoglobin Sodium 148 H Potassium Chloride 113.3 H Carbon Dioxide BUN 45 H Creatinine 1.8 H Glucose 202 H POC Glucose 158 H Hemoglobin A1c Calcium Phosphorus Magnesium Ferritin Lactate Dehydrogenase Troponin T C-Reactive Protein Total Protein 6.0 L Albumin 2.8 L Myung-3-Ftecgmzpj Czrto-5-Bheqqbkdr Beta Globulins PEP Interpretation Triglycerides HDL Cholesterol Arterial Blood Glucose Arterial Blood Ionized Calcium Urine WBC (Auto) Coronavirus (PCR) 06/17/21 06/17/21 06/18/21 12:32 16:46 06:00 WBC RBC Hgb Hct RDW Plt Count Lymph % (Auto) Lymph # (Auto) Seg Neutrophils % Seg Neuts % (Manual) Lymphocytes % (Manual) Nucleated RBC % Seg Neutrophils # Seg Neutrophils # Man Lymphocytes # (Manual) Monocytes # (Manual) PT INR APTT D-Dimer 9804.08 H ABG pH POC ABG pCO2 POC ABG pO2 ABG pO2 ABG O2 Saturation ABG Base Excess ABG Oxyhemoglobin ABG Methemoglobin ABG Potassium ABG Chloride ABG Glucose Oxyhemoglobin Carboxyhemoglobin Sodium Potassium Chloride Carbon Dioxide BUN Creatinine Glucose POC Glucose 227 H 203 H Hemoglobin A1c Calcium Phosphorus Magnesium Ferritin Lactate Dehydrogenase Troponin T C-Reactive Protein Total Protein Albumin Vptmx-1-Kjrijzpip Lgkln-5-Sfqowfdsg Beta Globulins PEP Interpretation Triglycerides HDL Cholesterol Arterial Blood Glucose Arterial Blood Ionized Calcium Urine WBC (Auto) Coronavirus (PCR) 06/18/21 06/18/21 06/18/21 06:00 08:00 10:10 WBC RBC Hgb Hct RDW Plt Count Lymph % (Auto) Lymph # (Auto) Seg Neutrophils % Seg Neuts % (Manual) Lymphocytes % (Manual) Nucleated RBC % Seg Neutrophils # Seg Neutrophils # Man Lymphocytes # (Manual) Monocytes # (Manual) PT INR APTT D-Dimer ABG pH POC ABG pCO2 POC ABG pO2 ABG pO2 ABG O2 Saturation ABG Base Excess ABG Oxyhemoglobin ABG Methemoglobin ABG Potassium ABG Chloride ABG Glucose Oxyhemoglobin Carboxyhemoglobin Sodium Potassium Chloride 110.1 H Carbon Dioxide BUN 39 H Creatinine 1.8 H Glucose 135 H POC Glucose 107 H Hemoglobin A1c Calcium Phosphorus Magnesium Ferritin 904.2 H Lactate Dehydrogenase Troponin T C-Reactive Protein Total Protein Albumin Lusve-2-Wlveynqyb Uhnqs-7-Uvvvdmsyo Beta Globulins PEP Interpretation Triglycerides HDL Cholesterol Arterial Blood Glucose Arterial Blood Ionized Calcium Urine WBC (Auto) Coronavirus (PCR) 06/18/21 06/18/21 06/18/21 12:06 16:47 21:14 WBC RBC Hgb Hct RDW Plt Count Lymph % (Auto) Lymph # (Auto) Seg Neutrophils % Seg Neuts % (Manual) Lymphocytes % (Manual) Nucleated RBC % Seg Neutrophils # Seg Neutrophils # Man Lymphocytes # (Manual) Monocytes # (Manual) PT INR APTT D-Dimer ABG pH POC ABG pCO2 POC ABG pO2 ABG pO2 ABG O2 Saturation ABG Base Excess ABG Oxyhemoglobin ABG Methemoglobin ABG Potassium ABG Chloride ABG Glucose Oxyhemoglobin Carboxyhemoglobin Sodium Potassium Chloride Carbon Dioxide BUN Creatinine Glucose POC Glucose 160 H 236 H 186 H Hemoglobin A1c Calcium Phosphorus Magnesium Ferritin Lactate Dehydrogenase Troponin T C-Reactive Protein Total Protein Albumin Edeaz-0-Fxkflaswg Tlmjj-5-Phznwgbdu Beta Globulins PEP Interpretation Triglycerides HDL Cholesterol Arterial Blood Glucose Arterial Blood Ionized Calcium Urine WBC (Auto) Coronavirus (PCR) 06/19/21 06/19/21 06/20/21 15:46 15:46 08:04 WBC RBC Hgb Hct RDW 15.5 H Plt Count 73 L Lymph % (Auto) Lymph # (Auto) Seg Neutrophils % Seg Neuts % (Manual) Lymphocytes % (Manual) Nucleated RBC % Seg Neutrophils # Seg Neutrophils # Man Lymphocytes # (Manual) Monocytes # (Manual) PT INR APTT D-Dimer ABG pH POC ABG pCO2 POC ABG pO2 ABG pO2 ABG O2 Saturation ABG Base Excess ABG Oxyhemoglobin ABG Methemoglobin ABG Potassium ABG Chloride ABG Glucose Oxyhemoglobin Carboxyhemoglobin Sodium 146 H Potassium Chloride 108.9 H Carbon Dioxide BUN 38 H Creatinine 1.7 H Glucose POC Glucose 52 L Hemoglobin A1c Calcium Phosphorus Magnesium Ferritin Lactate Dehydrogenase Troponin T C-Reactive Protein Total Protein Albumin Zvcrj-7-Mppqimffi Zjthd-0-Fdbsaaacy Beta Globulins PEP Interpretation Triglycerides HDL Cholesterol Arterial Blood Glucose Arterial Blood Ionized Calcium Urine WBC (Auto) Coronavirus (PCR) 06/20/21 06/20/21 06/20/21 11:58 15:16 17:54 WBC RBC Hgb Hct RDW Plt Count Lymph % (Auto) Lymph # (Auto) Seg Neutrophils % Seg Neuts % (Manual) Lymphocytes % (Manual) Nucleated RBC % Seg Neutrophils # Seg Neutrophils # Man Lymphocytes # (Manual) Monocytes # (Manual) PT INR APTT D-Dimer ABG pH POC ABG pCO2 POC ABG pO2 ABG pO2 ABG O2 Saturation ABG Base Excess ABG Oxyhemoglobin ABG Methemoglobin ABG Potassium ABG Chloride ABG Glucose Oxyhemoglobin Carboxyhemoglobin Sodium 146 H Potassium Chloride 108.2 H Carbon Dioxide BUN 37 H Creatinine 1.7 H Glucose 131 H POC Glucose 58 L 219 H Hemoglobin A1c Calcium Phosphorus Magnesium Ferritin Lactate Dehydrogenase Troponin T C-Reactive Protein Total Protein Albumin Drqet-3-Nzbtfcpgo Wxwuz-3-Cqixptwox Beta Globulins PEP Interpretation Triglycerides HDL Cholesterol Arterial Blood Glucose Arterial Blood Ionized Calcium Urine WBC (Auto) Coronavirus (PCR) 06/20/21 06/21/21 06/21/21 21:58 06:00 07:41 WBC RBC Hgb Hct RDW Plt Count Lymph % (Auto) Lymph # (Auto) Seg Neutrophils % Seg Neuts % (Manual) Lymphocytes % (Manual) Nucleated RBC % Seg Neutrophils # Seg Neutrophils # Man Lymphocytes # (Manual) Monocytes # (Manual) PT INR APTT D-Dimer ABG pH POC ABG pCO2 POC ABG pO2 ABG pO2 ABG O2 Saturation ABG Base Excess ABG Oxyhemoglobin ABG Methemoglobin ABG Potassium ABG Chloride ABG Glucose Oxyhemoglobin Carboxyhemoglobin Sodium Potassium Chloride Carbon Dioxide BUN 42 H Creatinine 2.0 H Glucose 225 H POC Glucose 180 H 204 H Hemoglobin A1c Calcium Phosphorus Magnesium Ferritin Lactate Dehydrogenase Troponin T C-Reactive Protein Total Protein Albumin Cbeuo-5-Ytosvhzto Aldok-1-Gebingwln Beta Globulins PEP Interpretation Triglycerides HDL Cholesterol Arterial Blood Glucose Arterial Blood Ionized Calcium Urine WBC (Auto) Coronavirus (PCR) 06/21/21 06/21/21 06/21/21 11:01 11:20 15:57 WBC RBC Hgb Hct RDW Plt Count Lymph % (Auto) Lymph # (Auto) Seg Neutrophils % Seg Neuts % (Manual) Lymphocytes % (Manual) Nucleated RBC % Seg Neutrophils # Seg Neutrophils # Man Lymphocytes # (Manual) Monocytes # (Manual) PT INR APTT D-Dimer ABG pH POC ABG pCO2 POC ABG pO2 58.9 L ABG pO2 ABG O2 Saturation ABG Base Excess ABG Oxyhemoglobin 87.4 L ABG Methemoglobin ABG Potassium ABG Chloride ABG Glucose 212 H Oxyhemoglobin Carboxyhemoglobin Sodium Potassium Chloride Carbon Dioxide BUN Creatinine Glucose POC Glucose 194 H 171 H Hemoglobin A1c Calcium Phosphorus Magnesium Ferritin Lactate Dehydrogenase Troponin T C-Reactive Protein Total Protein Albumin Ncxie-2-Vedazyral Jlylo-2-Qkhbssomw Beta Globulins PEP Interpretation Triglycerides HDL Cholesterol Arterial Blood Glucose 212 H Arterial Blood Ionized Calcium 4.5 L Urine WBC (Auto) Coronavirus (PCR) 06/21/21 06/21/21 06/21/21 17:52 17:55 22:09 WBC RBC Hgb Hct RDW Plt Count Lymph % (Auto) Lymph # (Auto) Seg Neutrophils % Seg Neuts % (Manual) Lymphocytes % (Manual) Nucleated RBC % Seg Neutrophils # Seg Neutrophils # Man Lymphocytes # (Manual) Monocytes # (Manual) PT INR APTT D-Dimer ABG pH 7.316 L POC ABG pCO2 51.7 H POC ABG pO2 62.3 L ABG pO2 ABG O2 Saturation ABG Base Excess ABG Oxyhemoglobin 88.7 L ABG Methemoglobin ABG Potassium ABG Chloride ABG Glucose 197 H Oxyhemoglobin Carboxyhemoglobin Sodium Potassium Chloride Carbon Dioxide BUN Creatinine Glucose POC Glucose 153 H 178 H Hemoglobin A1c Calcium Phosphorus Magnesium Ferritin Lactate Dehydrogenase Troponin T C-Reactive Protein Total Protein Albumin Qkenm-6-Ynlwlxscj Rkjro-5-Hxcctfuwt Beta Globulins PEP Interpretation Triglycerides HDL Cholesterol Arterial Blood Glucose 197 H Arterial Blood Ionized Calcium Urine WBC (Auto) Coronavirus (PCR) 06/22/21 06/22/21 06/22/21 07:30 07:43 11:47 WBC RBC Hgb Hct RDW Plt Count Lymph % (Auto) Lymph # (Auto) Seg Neutrophils % Seg Neuts % (Manual) Lymphocytes % (Manual) Nucleated RBC % Seg Neutrophils # Seg Neutrophils # Man Lymphocytes # (Manual) Monocytes # (Manual) PT INR APTT D-Dimer ABG pH POC ABG pCO2 POC ABG pO2 ABG pO2 ABG O2 Saturation ABG Base Excess ABG Oxyhemoglobin ABG Methemoglobin ABG Potassium ABG Chloride ABG Glucose Oxyhemoglobin Carboxyhemoglobin Sodium Potassium Chloride Carbon Dioxide 21 L BUN 55 H Creatinine 2.8 H Glucose 219 H POC Glucose 235 H 222 H Hemoglobin A1c Calcium Phosphorus Magnesium Ferritin Lactate Dehydrogenase Troponin T C-Reactive Protein Total Protein Albumin Orblg-6-Ypabrayub Ugfxw-1-Yignuwgfv Beta Globulins PEP Interpretation Triglycerides HDL Cholesterol Arterial Blood Glucose Arterial Blood Ionized Calcium Urine WBC (Auto) Coronavirus (PCR) 06/22/21 06/22/21 06/22/21 11:50 12:10 15:15 WBC RBC Hgb Hct RDW Plt Count Lymph % (Auto) Lymph # (Auto) Seg Neutrophils % Seg Neuts % (Manual) Lymphocytes % (Manual) Nucleated RBC % Seg Neutrophils # Seg Neutrophils # Man Lymphocytes # (Manual) Monocytes # (Manual) PT INR APTT D-Dimer ABG pH 7.273 L POC ABG pCO2 POC ABG pO2 56.8 L 56.8 L ABG pO2 58.0 L ABG O2 Saturation 85.7 L ABG Base Excess -4.9 L ABG Oxyhemoglobin 86.7 L 86.7 L ABG Methemoglobin ABG Potassium ABG Chloride ABG Glucose Oxyhemoglobin 84.1 L Carboxyhemoglobin Sodium Potassium Chloride Carbon Dioxide BUN Creatinine Glucose POC Glucose Hemoglobin A1c Calcium Phosphorus Magnesium Ferritin Lactate Dehydrogenase Troponin T C-Reactive Protein Total Protein Albumin Jauht-6-Tpmfrceek Wqkxo-9-Vvcrkfqwp Beta Globulins PEP Interpretation Triglycerides HDL Cholesterol Arterial Blood Glucose Arterial Blood Ionized Calcium Urine WBC (Auto) Coronavirus (PCR) 06/22/21 06/22/21 06/22/21 17:28 21:22 23:35 WBC RBC Hgb Hct RDW Plt Count Lymph % (Auto) Lymph # (Auto) Seg Neutrophils % Seg Neuts % (Manual) Lymphocytes % (Manual) Nucleated RBC % Seg Neutrophils # Seg Neutrophils # Man Lymphocytes # (Manual) Monocytes # (Manual) PT INR APTT D-Dimer ABG pH 7.217 L POC ABG pCO2 POC ABG pO2 ABG pO2 61.7 L ABG O2 Saturation 87.3 L ABG Base Excess -6.0 L ABG Oxyhemoglobin ABG Methemoglobin ABG Potassium ABG Chloride ABG Glucose Oxyhemoglobin 85.4 L Carboxyhemoglobin Sodium Potassium Chloride Carbon Dioxide BUN Creatinine Glucose POC Glucose 221 H 204 H Hemoglobin A1c Calcium Phosphorus Magnesium Ferritin Lactate Dehydrogenase Troponin T C-Reactive Protein Total Protein Albumin Zaalq-9-Noutpgzpg Lnqcm-3-Opdiazitb Beta Globulins PEP Interpretation Triglycerides HDL Cholesterol Arterial Blood Glucose Arterial Blood Ionized Calcium Urine WBC (Auto) Coronavirus (PCR) 06/23/21 06/23/21 06/23/21 04:42 04:42 04:42 WBC 19.0 H RBC 5.04 H Hgb Hct 44.5 H RDW 16.6 H Plt Count 61 L Lymph % (Auto) Lymph # (Auto) Seg Neutrophils % Seg Neuts % (Manual) Lymphocytes % (Manual) 2.0 L Nucleated RBC % 46.0 H Seg Neutrophils # Seg Neutrophils # Man 13.1 H Lymphocytes # (Manual) 0.4 L Monocytes # (Manual) 1.1 H PT INR APTT D-Dimer 6308.27 H ABG pH POC ABG pCO2 POC ABG pO2 ABG pO2 ABG O2 Saturation ABG Base Excess ABG Oxyhemoglobin ABG Methemoglobin ABG Potassium ABG Chloride ABG Glucose Oxyhemoglobin Carboxyhemoglobin Sodium Potassium 6.3 H* D Chloride Carbon Dioxide 21 L BUN 72 H Creatinine 4.6 H D Glucose 225 H POC Glucose Hemoglobin A1c Calcium 8.0 L Phosphorus Magnesium Ferritin Lactate Dehydrogenase Troponin T C-Reactive Protein Total Protein Albumin Zxigo-8-Spdpyeguu Wnvzm-2-Bxwfhtqdi Beta Globulins PEP Interpretation Triglycerides HDL Cholesterol Arterial Blood Glucose Arterial Blood Ionized Calcium Urine WBC (Auto) Coronavirus (PCR) 06/23/21 06/23/21 06/23/21 04:42 04:42 05:33 WBC RBC Hgb Hct RDW Plt Count Lymph % (Auto) Lymph # (Auto) Seg Neutrophils % Seg Neuts % (Manual) Lymphocytes % (Manual) Nucleated RBC % Seg Neutrophils # Seg Neutrophils # Man Lymphocytes # (Manual) Monocytes # (Manual) PT INR APTT D-Dimer ABG pH POC ABG pCO2 POC ABG pO2 ABG pO2 ABG O2 Saturation ABG Base Excess ABG Oxyhemoglobin ABG Methemoglobin ABG Potassium ABG Chloride ABG Glucose Oxyhemoglobin Carboxyhemoglobin Sodium Potassium Chloride Carbon Dioxide BUN Creatinine Glucose POC Glucose 227 H Hemoglobin A1c Calcium 7.9 L Phosphorus 8.30 H Magnesium Ferritin 1496.0 H Lactate Dehydrogenase Troponin T C-Reactive Protein 4.40 H Total Protein Albumin Ulxsy-7-Mjbzenhtj Prxdw-5-Nedigaxsj Beta Globulins PEP Interpretation Triglycerides HDL Cholesterol Arterial Blood Glucose Arterial Blood Ionized Calcium Urine WBC (Auto) Coronavirus (PCR) 06/23/21 06/23/21 06/23/21 11:00 11:31 17:40 WBC RBC Hgb Hct RDW Plt Count Lymph % (Auto) Lymph # (Auto) Seg Neutrophils % Seg Neuts % (Manual) Lymphocytes % (Manual) Nucleated RBC % Seg Neutrophils # Seg Neutrophils # Man Lymphocytes # (Manual) Monocytes # (Manual) PT INR APTT D-Dimer ABG pH 7.177 L POC ABG pCO2 58.9 H POC ABG pO2 60.2 L ABG pO2 ABG O2 Saturation ABG Base Excess ABG Oxyhemoglobin 83.5 L ABG Methemoglobin 1.8 H ABG Potassium ABG Chloride ABG Glucose Oxyhemoglobin Carboxyhemoglobin Sodium Potassium Chloride Carbon Dioxide BUN Creatinine Glucose POC Glucose 207 H Hemoglobin A1c Calcium Phosphorus Magnesium Ferritin Lactate Dehydrogenase Troponin T C-Reactive Protein Total Protein Albumin Bhjfs-6-Yqvurtjel Ieggx-1-Qwdlqtozq Beta Globulins PEP Interpretation Triglycerides HDL Cholesterol Arterial Blood Glucose Arterial Blood Ionized Calcium Urine WBC (Auto) > 182.0 H Coronavirus (PCR) 06/23/21 06/23/21 06/23/21 17:52 21:12 Unknown WBC RBC Hgb Hct RDW Plt Count Lymph % (Auto) Lymph # (Auto) Seg Neutrophils % Seg Neuts % (Manual) Lymphocytes % (Manual) Nucleated RBC % Seg Neutrophils # Seg Neutrophils # Man Lymphocytes # (Manual) Monocytes # (Manual) PT INR APTT D-Dimer 6308 H ABG pH 7.214 L POC ABG pCO2 60.2 H POC ABG pO2 78.9 L ABG pO2 ABG O2 Saturation ABG Base Excess ABG Oxyhemoglobin 93.4 L ABG Methemoglobin ABG Potassium 6.3 H ABG Chloride ABG Glucose 338 H Oxyhemoglobin Carboxyhemoglobin Sodium Potassium Chloride Carbon Dioxide BUN Creatinine Glucose POC Glucose 232 H Hemoglobin A1c Calcium Phosphorus Magnesium Ferritin Lactate Dehydrogenase Troponin T C-Reactive Protein Total Protein Albumin Eubsm-1-Pkmamdzkg Pamxl-9-Wadwdvief Beta Globulins PEP Interpretation Triglycerides HDL Cholesterol Arterial Blood Glucose 338 H Arterial Blood Ionized Calcium 4.1 L Urine WBC (Auto) Coronavirus (PCR) 06/23/21 06/23/21 06/23/21 Unknown Unknown Unknown WBC RBC Hgb Hct RDW Plt Count Lymph % (Auto) Lymph # (Auto) Seg Neutrophils % Seg Neuts % (Manual) Lymphocytes % (Manual) Nucleated RBC % Seg Neutrophils # Seg Neutrophils # Man Lymphocytes # (Manual) Monocytes # (Manual) PT 24.6 H INR 2.18 H APTT 43.8 H D-Dimer ABG pH POC ABG pCO2 POC ABG pO2 ABG pO2 ABG O2 Saturation ABG Base Excess ABG Oxyhemoglobin ABG Methemoglobin ABG Potassium ABG Chloride ABG Glucose Oxyhemoglobin Carboxyhemoglobin Sodium 146 H Potassium 5.3 H Chloride 113.2 H Carbon Dioxide 20 L BUN 73 H Creatinine 4.2 H Glucose 234 H POC Glucose Hemoglobin A1c Calcium 6.3 L D Phosphorus Magnesium Ferritin 1094.0 H Lactate Dehydrogenase Troponin T C-Reactive Protein Total Protein 4.3 L Albumin 2.0 L Iqgkd-9-Rqmccafue Wlvhz-7-Nnasdxssb Beta Globulins PEP Interpretation Triglycerides HDL Cholesterol Arterial Blood Glucose Arterial Blood Ionized Calcium Urine WBC (Auto) Coronavirus (PCR) 06/24/21 06/24/21 06/24/21 00:03 04:55 04:55 WBC 18.7 H RBC Hgb Hct RDW 16.8 H Plt Count 42 L Lymph % (Auto) Lymph # (Auto) Seg Neutrophils % Seg Neuts % (Manual) Lymphocytes % (Manual) 1.0 L Nucleated RBC % 1.0 H Seg Neutrophils # Seg Neutrophils # Man 12.7 H Lymphocytes # (Manual) 0.2 L Monocytes # (Manual) PT INR APTT D-Dimer ABG pH POC ABG pCO2 POC ABG pO2 ABG pO2 ABG O2 Saturation ABG Base Excess ABG Oxyhemoglobin ABG Methemoglobin ABG Potassium ABG Chloride ABG Glucose Oxyhemoglobin Carboxyhemoglobin Sodium Potassium 6.0 H Chloride Carbon Dioxide 20 L BUN 86 H Creatinine 5.4 H Glucose 309 H POC Glucose 265 H Hemoglobin A1c Calcium 6.5 L Phosphorus 7.60 H Magnesium Ferritin Lactate Dehydrogenase Troponin T C-Reactive Protein Total Protein 4.6 L Albumin 2.1 L Pkyqd-5-Emteabkpl Qtqtu-0-Exdcqeykd Beta Globulins PEP Interpretation Triglycerides HDL Cholesterol Arterial Blood Glucose Arterial Blood Ionized Calcium Urine WBC (Auto) Coronavirus (PCR) 06/24/21 06/24/21 06/24/21 04:55 06:01 11:38 WBC RBC Hgb Hct RDW Plt Count Lymph % (Auto) Lymph # (Auto) Seg Neutrophils % Seg Neuts % (Manual) Lymphocytes % (Manual) Nucleated RBC % Seg Neutrophils # Seg Neutrophils # Man Lymphocytes # (Manual) Monocytes # (Manual) PT 22.2 H INR 1.90 H APTT D-Dimer ABG pH POC ABG pCO2 POC ABG pO2 ABG pO2 ABG O2 Saturation ABG Base Excess ABG Oxyhemoglobin ABG Methemoglobin ABG Potassium ABG Chloride ABG Glucose Oxyhemoglobin Carboxyhemoglobin Sodium Potassium Chloride Carbon Dioxide BUN Creatinine Glucose POC Glucose 257 H 288 H Hemoglobin A1c Calcium Phosphorus Magnesium Ferritin Lactate Dehydrogenase Troponin T C-Reactive Protein Total Protein Albumin Ouxkw-8-Jfvjhspiw Ceihc-7-Pduiyyghm Beta Globulins PEP Interpretation Triglycerides HDL Cholesterol Arterial Blood Glucose Arterial Blood Ionized Calcium Urine WBC (Auto) Coronavirus (PCR)
--- NOTE | 2021-06-24 13:43 | Progress Note ---
Assessment and Plan Acute hypoxemic respiratory failure (ARDS) Coronavirus infection Pneumonia due to COVID-19 virus Acute kidney injury superimposed on CKD Hypertension Diabetes mellitus type 2, insulin dependent Hypothyroidism Morbid obesity - CT brain once more stable - DVT prophylaxis dosing on Lovenox for now - continue prn Ativan for Seizure activity - s/p RIJ Vascath - lower extremity dopplers negative for VTE - continue Keppra 500 mg IV q12h - follow EEG - neurology evaluation ongoing - continue to wean vaspressors for target MAP > 65 mmHg - HD/UF per nephrology prescription for toxin and volume clearance - continue care as below otherwise; - continue daily SAT and SBT assessment as tolerated - continue to wean supplemental oxygen for target O2 sat's > 90% acutely - VAP bundle addressed - continue lung protective strategies - continue bronchodilators with pulmonary hygiene per RT - wean per pulmonary driven protocols otherwise - azotemia per nephrology recommendations - avoid nephrotoxins, renally dose all medications - continue to avoid benzodiazepine's, reduce the possibility of delirium - anti-infective's per ID rec's - prn analgesia per CPOT score - Maintenance of sleep-wake cycle, avoid delirium - enteral nutritional support at goal rate as tolerated - G.I. & VTE prophylaxis - PT/OT/ROM exercises - mobility protocols for pressure ulcer prophylaxis - Monitor hemodynamics closely - continue other care per attending / other consultants - discharge planning ongoing concurrently COVID SPECIFIC INTERVENTIONS - Remdesivir as per ID/Pulmonary developed protocols (not a candidate) - continue systemic steroids for severe COVID-19 infection empirically (will taper to 60 mg IV q8h) - follow repeat COVID tests results - zinc and vitamin C supplementation - Monitor inflammatory markers per facility protocol - ferritin, Ddimer, CRP - therapeutic anticoagulation per system Protocol based on d-dimer and clinical considerations - Continue contact and airborne isolation .... Re-evaluate in am & prn CONDITION: CRITICAL PROGNOSIS: GUARDED CODE STATUS: FULL CODE The high probability of a clinically significant, sudden or life-threatening deterioration of the [respiratory, cardiovascular, renal & neurologic] system(s) required my full and direct attention, intervention and personal management. The aggregate critical care time was [40] minutes without overlap. Time includes spent on; [x] Data Review and interpretation [x] Patient assessment and monitoring of vital signs [x] Documentation [x] Medication orders and management Subjective Date of service: 06/24/21 Principal diagnosis: ARDS; Pneumonia; COVID-19 virus infection; TREMAINE; DM II; Morbid obesity Interval history: Patient is seen today for: Acute hypoxemic respiratory failure (ARDS); Pneumonia; COVID-19 virus infection; TREMAINE on CKD; DM II; Morbid obesity Seen and examined at bedside; 24hour events reviewed; nursing and respiratory care staff consulted; no adverse overnight events reported to me; resting in bed; azotemia worse and to begin on dialysis; vascath consent obtained from her ; remains on Levophed; Oliguric now Objective Vital Signs - 12hr 06/24/21 06/24/21 06/24/21 01:41 01:51 02:00 Temperature Pulse Rate 127 H 133 H 130 H Pulse Rate [ From Monitor] Respiratory 30 H 30 H 30 H Rate Blood Pressure 126/55 127/62 104/63 O2 Sat by Pulse 95 94 Oximetry 06/24/21 06/24/21 06/24/21 02:11 02:21 02:31 Temperature Pulse Rate 136 H 124 H 124 H Pulse Rate [ From Monitor] Respiratory 28 H 30 H 30 H Rate Blood Pressure 104/63 111/72 122/52 O2 Sat by Pulse 93 93 92 Oximetry 06/24/21 06/24/21 06/24/21 02:41 02:51 03:00 Temperature Pulse Rate 120 H 123 H 132 H Pulse Rate [ From Monitor] Respiratory 30 H 30 H 30 H Rate Blood Pressure 122/52 111/72 108/61 O2 Sat by Pulse 93 92 94 Oximetry 06/24/21 06/24/21 06/24/21 03:11 03:21 03:30 Temperature Pulse Rate 122 H 125 H 118 H Pulse Rate [ From Monitor] Respiratory 30 H 30 H 30 H Rate Blood Pressure 108/61 104/59 117/53 O2 Sat by Pulse 93 95 94 Oximetry 06/24/21 06/24/21 06/24/21 03:41 03:51 04:00 Temperature Pulse Rate 120 H 119 H Pulse Rate [ From Monitor] Respiratory 30 H 30 H Rate Blood Pressure 117/53 118/67 O2 Sat by Pulse 93 94 90 Oximetry 06/24/21 06/24/21 06/24/21 04:01 04:09 04:11 Temperature Pulse Rate 117 H 117 H 115 H Pulse Rate [ From Monitor] Respiratory 28 H 30 H Rate Blood Pressure 118/67 115/65 O2 Sat by Pulse 94 93 94 Oximetry 06/24/21 06/24/21 06/24/21 04:21 04:30 04:41 Temperature Pulse Rate 123 H 116 H 123 H Pulse Rate [ From Monitor] Respiratory 30 H 30 H 30 H Rate Blood Pressure 126/60 126/64 126/64 O2 Sat by Pulse 94 95 94 Oximetry 06/24/21 06/24/21 06/24/21 04:51 05:00 05:11 Temperature Pulse Rate 123 H 121 H 120 H Pulse Rate [ From Monitor] Respiratory 30 H 30 H 28 H Rate Blood Pressure 126/64 123/56 123/56 O2 Sat by Pulse 93 92 94 Oximetry 06/24/21 06/24/21 06/24/21 05:21 05:31 05:41 Temperature Pulse Rate 117 H 120 H 116 H Pulse Rate [ From Monitor] Respiratory 12 29 H 30 H Rate Blood Pressure 123/56 123/56 123/56 O2 Sat by Pulse 81 L 93 94 Oximetry 06/24/21 06/24/21 06/24/21 05:51 06:00 06:11 Temperature Pulse Rate 118 H 116 H 112 H Pulse Rate [ From Monitor] Respiratory 30 H 30 H 30 H Rate Blood Pressure 123/56 126/48 126/48 O2 Sat by Pulse 95 93 95 Oximetry 06/24/21 06/24/21 06/24/21 06:21 06:30 06:41 Temperature Pulse Rate 111 H 113 H 107 H Pulse Rate [ From Monitor] Respiratory 30 H 30 H 30 H Rate Blood Pressure 127/43 126/58 126/58 O2 Sat by Pulse 95 94 95 Oximetry 06/24/21 06/24/21 06/24/21 06:51 07:00 07:11 Temperature Pulse Rate 111 H 111 H 105 H Pulse Rate [ From Monitor] Respiratory 30 H 30 H 29 H Rate Blood Pressure 130/68 136/58 136/58 O2 Sat by Pulse 95 95 95 Oximetry 06/24/21 06/24/21 06/24/21 07:21 07:30 07:31 Temperature Pulse Rate 111 H 111 H 111 H Pulse Rate [ From Monitor] Respiratory 30 H 30 H Rate Blood Pressure 148/55 125/58 O2 Sat by Pulse 95 95 Oximetry 06/24/21 06/24/21 06/24/21 07:41 07:50 07:57 Temperature 100.4 F H Pulse Rate 107 H 106 H Pulse Rate [ From Monitor] Respiratory 30 H 30 H Rate Blood Pressure 125/58 126/57 O2 Sat by Pulse Oximetry 06/24/21 06/24/21 06/24/21 08:00 08:10 08:21 Temperature Pulse Rate 111 H 109 H 109 H Pulse Rate [ 111 H From Monitor] Respiratory 30 H 30 H 30 H Rate Blood Pressure 117/57 117/57 118/52 O2 Sat by Pulse 96 Oximetry 06/24/21 06/24/21 06/24/21 08:30 08:41 08:51 Temperature Pulse Rate 111 H 105 H 106 H Pulse Rate [ From Monitor] Respiratory 30 H 30 H 30 H Rate Blood Pressure 116/58 116/58 120/52 O2 Sat by Pulse Oximetry 06/24/21 06/24/21 06/24/21 09:00 09:11 09:21 Temperature Pulse Rate 107 H 109 H 108 H Pulse Rate [ From Monitor] Respiratory 30 H 30 H 30 H Rate Blood Pressure 125/50 125/50 115/39 O2 Sat by Pulse Oximetry 06/24/21 06/24/21 06/24/21 09:30 09:41 09:51 Temperature Pulse Rate 99 H 114 H 103 H Pulse Rate [ From Monitor] Respiratory 30 H 30 H 30 H Rate Blood Pressure 108/56 108/56 117/48 O2 Sat by Pulse Oximetry 06/24/21 06/24/21 06/24/21 10:01 10:11 10:21 Temperature Pulse Rate 110 H 109 H 107 H Pulse Rate [ From Monitor] Respiratory 30 H 30 H 30 H Rate Blood Pressure 109/38 109/38 105/34 O2 Sat by Pulse Oximetry 06/24/21 06/24/21 06/24/21 10:30 10:41 10:51 Temperature Pulse Rate 108 H 107 H 108 H Pulse Rate [ From Monitor] Respiratory 30 H 30 H 30 H Rate Blood Pressure 100/51 100/51 100/44 O2 Sat by Pulse Oximetry 06/24/21 06/24/21 06/24/21 11:00 11:07 11:35 Temperature Pulse Rate 108 H 107 H 113 H Pulse Rate [ From Monitor] Respiratory 30 H Rate Blood Pressure 107/41 O2 Sat by Pulse 96 Oximetry 06/24/21 06/24/21 11:37 12:00 Temperature 101.7 F H Pulse Rate Pulse Rate [ 113 H From Monitor] Respiratory Rate Blood Pressure O2 Sat by Pulse 90 Oximetry Constitutional: appears uncomfortable, other (Morbidly Obese female with mildly increased work of breathing on MVS) Eyes: non-icteric ENT: oropharynx moist Neck: supple, no lymphadenopathy Effort: very labored Ascultation: Bilateral: diminished breath sounds, rhonchi Percussion: Bilateral: not dull Cardiovascular: regular rate and rhythm Gastrointestinal: normoactive bowel sounds, soft, non-tender, non-distended (protuberant) Integumentary: normal Extremities: no cyanosis, no edema, pulses normal, no ischemia or petechiae Neurologic: non-focal exam (grossly), pupils equal and round, unable to assess Psychiatric: other (unable to assess re: AMS) CBC and BMP: 06/24/21 04:55 06/24/21 04:55 ABG, PT/INR, D-dimer: ABG ABG pH 7.214 (7.320-7.450) L 06/23/21 21:12 POC ABG pCO2 60.2 mmHg (32.0-48.0) H 06/23/21 21:12 ABG pCO2 56.5 mm Hg 06/22/21 21:22 POC ABG pO2 78.9 mmHg (83-108) L 06/23/21 21:12 ABG pO2 61.7 mm Hg (80.0-90.0) L 06/22/21 21:22 POC ABG HCO3 23.8 06/23/21 21:12 ABG O2 Saturation 94.2 (0-100) 06/23/21 21:12 PT/INR, D-dimer PT 22.2 Sec. (12.2-14.9) H 06/24/21 04:55 INR 1.90 (0.87-1.13) H 06/24/21 04:55 D-Dimer 6308 ng/mlDDU (0-234) H 06/23/21 Unknown Abnormal lab findings: Abnormal Labs 06/07/21 06/07/21 06/07/21 19:11 19:11 19:11 WBC 11.5 H RBC Hgb Hct RDW Plt Count Lymph % (Auto) 6.5 L Lymph # (Auto) 0.8 L Seg Neutrophils % 89.9 H Seg Neuts % (Manual) Lymphocytes % (Manual) Nucleated RBC % Seg Neutrophils # 10.4 H Seg Neutrophils # Man Lymphocytes # (Manual) Monocytes # (Manual) PT INR APTT D-Dimer 5334.05 H ABG pH POC ABG pCO2 POC ABG pO2 ABG pO2 ABG O2 Saturation ABG Base Excess ABG Oxyhemoglobin ABG Methemoglobin ABG Potassium ABG Chloride ABG Glucose Oxyhemoglobin Carboxyhemoglobin Sodium Potassium Chloride Carbon Dioxide BUN 67 H Creatinine 4.8 H Glucose 244 H POC Glucose Hemoglobin A1c Calcium Phosphorus Magnesium Ferritin Lactate Dehydrogenase 796 H Troponin T 0.043 H C-Reactive Protein 19.60 H Total Protein 8.4 H Albumin 3.1 L Idihp-2-Llftwgtey Ifofl-9-Osclixzcd Beta Globulins PEP Interpretation Triglycerides 209 H HDL Cholesterol 35 L Arterial Blood Glucose Arterial Blood Ionized Calcium Urine WBC (Auto) Coronavirus (PCR) 06/07/21 06/07/21 06/08/21 19:11 19:11 03:04 WBC RBC Hgb Hct RDW Plt Count Lymph % (Auto) Lymph # (Auto) Seg Neutrophils % Seg Neuts % (Manual) Lymphocytes % (Manual) Nucleated RBC % Seg Neutrophils # Seg Neutrophils # Man Lymphocytes # (Manual) Monocytes # (Manual) PT INR APTT D-Dimer ABG pH POC ABG pCO2 POC ABG pO2 ABG pO2 ABG O2 Saturation ABG Base Excess ABG Oxyhemoglobin ABG Methemoglobin ABG Potassium ABG Chloride ABG Glucose Oxyhemoglobin Carboxyhemoglobin Sodium Potassium Chloride Carbon Dioxide BUN Creatinine Glucose POC Glucose Hemoglobin A1c 9.5 H Calcium Phosphorus Magnesium Ferritin 1230.0 H Lactate Dehydrogenase Troponin T 0.031 H D C-Reactive Protein Total Protein Albumin Stnad-0-Scldiaboq Aljss-7-Djclwwjos Beta Globulins PEP Interpretation Triglycerides HDL Cholesterol Arterial Blood Glucose Arterial Blood Ionized Calcium Urine WBC (Auto) Coronavirus (PCR) 06/08/21 06/08/21 06/08/21 03:44 03:44 08:21 WBC 12.9 H RBC Hgb Hct RDW Plt Count Lymph % (Auto) Lymph # (Auto) Seg Neutrophils % Seg Neuts % (Manual) 95.0 H Lymphocytes % (Manual) 3.0 L Nucleated RBC % Seg Neutrophils # Seg Neutrophils # Man 12.3 H Lymphocytes # (Manual) 0.4 L Monocytes # (Manual) PT INR APTT D-Dimer ABG pH POC ABG pCO2 POC ABG pO2 ABG pO2 ABG O2 Saturation ABG Base Excess ABG Oxyhemoglobin ABG Methemoglobin ABG Potassium ABG Chloride ABG Glucose Oxyhemoglobin Carboxyhemoglobin Sodium Potassium Chloride Carbon Dioxide 20 L D BUN 68 H Creatinine 4.7 H Glucose 218 H POC Glucose 273 H Hemoglobin A1c Calcium Phosphorus Magnesium Ferritin Lactate Dehydrogenase Troponin T C-Reactive Protein Total Protein Albumin 3.4 L Usoxv-2-Oauppztep Xssay-2-Pdfmtkkmn Beta Globulins PEP Interpretation Triglycerides HDL Cholesterol Arterial Blood Glucose Arterial Blood Ionized Calcium Urine WBC (Auto) Coronavirus (PCR) 06/08/21 06/08/21 06/08/21 08:30 11:00 17:29 WBC RBC Hgb Hct RDW Plt Count Lymph % (Auto) Lymph # (Auto) Seg Neutrophils % Seg Neuts % (Manual) Lymphocytes % (Manual) Nucleated RBC % Seg Neutrophils # Seg Neutrophils # Man Lymphocytes # (Manual) Monocytes # (Manual) PT INR APTT D-Dimer ABG pH POC ABG pCO2 POC ABG pO2 ABG pO2 ABG O2 Saturation ABG Base Excess ABG Oxyhemoglobin ABG Methemoglobin ABG Potassium ABG Chloride ABG Glucose Oxyhemoglobin Carboxyhemoglobin Sodium Potassium Chloride Carbon Dioxide BUN Creatinine Glucose POC Glucose 239 H 220 H Hemoglobin A1c Calcium Phosphorus Magnesium Ferritin Lactate Dehydrogenase Troponin T C-Reactive Protein Total Protein Albumin Ywqug-5-Kyjljadmu Czfgx-1-Yqwdbpqbq Beta Globulins PEP Interpretation Triglycerides HDL Cholesterol Arterial Blood Glucose Arterial Blood Ionized Calcium Urine WBC (Auto) Coronavirus (PCR) Positive A 06/08/21 06/09/21 06/09/21 21:09 08:07 08:42 WBC 14.7 H RBC 5.28 H Hgb 14.9 H Hct 45.0 H D RDW Plt Count Lymph % (Auto) 4.9 L Lymph # (Auto) 0.7 L Seg Neutrophils % 90.0 H Seg Neuts % (Manual) Lymphocytes % (Manual) Nucleated RBC % Seg Neutrophils # 13.2 H Seg Neutrophils # Man Lymphocytes # (Manual) Monocytes # (Manual) PT INR APTT D-Dimer ABG pH POC ABG pCO2 POC ABG pO2 ABG pO2 ABG O2 Saturation ABG Base Excess ABG Oxyhemoglobin ABG Methemoglobin ABG Potassium ABG Chloride ABG Glucose Oxyhemoglobin Carboxyhemoglobin Sodium Potassium Chloride Carbon Dioxide BUN Creatinine Glucose POC Glucose 242 H 230 H Hemoglobin A1c Calcium Phosphorus Magnesium Ferritin Lactate Dehydrogenase Troponin T C-Reactive Protein Total Protein Albumin Bkatm-8-Tiitfdsqn Lmtll-0-Teqjoidmn Beta Globulins PEP Interpretation Triglycerides HDL Cholesterol Arterial Blood Glucose Arterial Blood Ionized Calcium Urine WBC (Auto) Coronavirus (PCR) 06/09/21 06/09/21 06/09/21 08:42 12:05 12:19 WBC RBC Hgb Hct RDW Plt Count Lymph % (Auto) Lymph # (Auto) Seg Neutrophils % Seg Neuts % (Manual) Lymphocytes % (Manual) Nucleated RBC % Seg Neutrophils # Seg Neutrophils # Man Lymphocytes # (Manual) Monocytes # (Manual) PT INR APTT D-Dimer ABG pH POC ABG pCO2 POC ABG pO2 71.4 L ABG pO2 ABG O2 Saturation ABG Base Excess ABG Oxyhemoglobin 92.9 L ABG Methemoglobin ABG Potassium ABG Chloride 109.0 H ABG Glucose 287 H Oxyhemoglobin Carboxyhemoglobin 0.4 L Sodium Potassium Chloride Carbon Dioxide 17 L BUN 74 H Creatinine 3.7 H Glucose 259 H POC Glucose 274 H Hemoglobin A1c Calcium 8.3 L Phosphorus Magnesium Ferritin Lactate Dehydrogenase Troponin T C-Reactive Protein Total Protein Albumin Jmzhi-5-Uuikmgmpn Fxxxz-3-Whbxmkgpl Beta Globulins PEP Interpretation Triglycerides HDL Cholesterol Arterial Blood Glucose 287 H Arterial Blood Ionized Calcium Urine WBC (Auto) Coronavirus (PCR) 06/09/21 06/09/21 06/10/21 16:59 21:06 08:25 WBC RBC Hgb Hct RDW Plt Count Lymph % (Auto) Lymph # (Auto) Seg Neutrophils % Seg Neuts % (Manual) Lymphocytes % (Manual) Nucleated RBC % Seg Neutrophils # Seg Neutrophils # Man Lymphocytes # (Manual) Monocytes # (Manual) PT INR APTT D-Dimer ABG pH POC ABG pCO2 POC ABG pO2 ABG pO2 ABG O2 Saturation ABG Base Excess ABG Oxyhemoglobin ABG Methemoglobin ABG Potassium ABG Chloride ABG Glucose Oxyhemoglobin Carboxyhemoglobin Sodium Potassium Chloride Carbon Dioxide BUN Creatinine Glucose POC Glucose 268 H 263 H 280 H Hemoglobin A1c Calcium Phosphorus Magnesium Ferritin Lactate Dehydrogenase Troponin T C-Reactive Protein Total Protein Albumin Ivcvw-8-Xlmogkusu Ghfrb-1-Bavogvzgx Beta Globulins PEP Interpretation Triglycerides HDL Cholesterol Arterial Blood Glucose Arterial Blood Ionized Calcium Urine WBC (Auto) Coronavirus (PCR) 06/10/21 06/10/21 06/10/21 12:07 15:38 21:04 WBC RBC Hgb Hct RDW Plt Count Lymph % (Auto) Lymph # (Auto) Seg Neutrophils % Seg Neuts % (Manual) Lymphocytes % (Manual) Nucleated RBC % Seg Neutrophils # Seg Neutrophils # Man Lymphocytes # (Manual) Monocytes # (Manual) PT INR APTT D-Dimer ABG pH POC ABG pCO2 POC ABG pO2 ABG pO2 ABG O2 Saturation ABG Base Excess ABG Oxyhemoglobin ABG Methemoglobin ABG Potassium ABG Chloride ABG Glucose Oxyhemoglobin Carboxyhemoglobin Sodium Potassium Chloride Carbon Dioxide BUN Creatinine Glucose POC Glucose 247 H 269 H 195 H Hemoglobin A1c Calcium Phosphorus Magnesium Ferritin Lactate Dehydrogenase Troponin T C-Reactive Protein Total Protein Albumin Oofnt-2-Zshrroiay Tnzww-9-Oxnvtppjx Beta Globulins PEP Interpretation Triglycerides HDL Cholesterol Arterial Blood Glucose Arterial Blood Ionized Calcium Urine WBC (Auto) Coronavirus (PCR) 06/10/21 06/10/21 06/10/21 23:14 23:14 23:14 WBC RBC Hgb Hct RDW 15.3 H Plt Count Lymph % (Auto) Lymph # (Auto) Seg Neutrophils % Seg Neuts % (Manual) 93.0 H Lymphocytes % (Manual) 2.0 L Nucleated RBC % 3.0 H Seg Neutrophils # Seg Neutrophils # Man 10.2 H Lymphocytes # (Manual) 0.2 L Monocytes # (Manual) PT INR APTT D-Dimer ABG pH POC ABG pCO2 POC ABG pO2 ABG pO2 ABG O2 Saturation ABG Base Excess ABG Oxyhemoglobin ABG Methemoglobin ABG Potassium ABG Chloride ABG Glucose Oxyhemoglobin Carboxyhemoglobin Sodium 148 H D Potassium Chloride 111.7 H Carbon Dioxide 20 L BUN 70 H Creatinine 3.2 H Glucose 186 H POC Glucose Hemoglobin A1c Calcium Phosphorus Magnesium Ferritin Lactate Dehydrogenase Troponin T C-Reactive Protein Total Protein Albumin 2.6 L Mbyxe-0-Xbpvwwloz 0.5 H Kcabh-9-Adgjlftyv 1.7 H Beta Globulins 0.6 H PEP Interpretation see below H Triglycerides HDL Cholesterol Arterial Blood Glucose Arterial Blood Ionized Calcium Urine WBC (Auto) Coronavirus (PCR) 06/10/21 06/10/21 06/10/21 23:14 23:14 23:14 WBC RBC Hgb Hct RDW Plt Count Lymph % (Auto) Lymph # (Auto) Seg Neutrophils % Seg Neuts % (Manual) Lymphocytes % (Manual) Nucleated RBC % Seg Neutrophils # Seg Neutrophils # Man Lymphocytes # (Manual) Monocytes # (Manual) PT INR APTT D-Dimer > 44202 H ABG pH POC ABG pCO2 POC ABG pO2 ABG pO2 ABG O2 Saturation ABG Base Excess ABG Oxyhemoglobin ABG Methemoglobin ABG Potassium ABG Chloride ABG Glucose Oxyhemoglobin Carboxyhemoglobin Sodium Potassium Chloride Carbon Dioxide BUN Creatinine Glucose POC Glucose Hemoglobin A1c Calcium Phosphorus Magnesium 2.50 H Ferritin 1319.0 H Lactate Dehydrogenase 606 H Troponin T C-Reactive Protein Total Protein Albumin Wwecl-9-Kktoskvfe Ecjrf-9-Kdbnpgsxy Beta Globulins PEP Interpretation Triglycerides HDL Cholesterol Arterial Blood Glucose Arterial Blood Ionized Calcium Urine WBC (Auto) Coronavirus (PCR) 06/11/21 06/11/21 06/11/21 07:34 10:57 10:57 WBC RBC Hgb Hct RDW Plt Count Lymph % (Auto) Lymph # (Auto) Seg Neutrophils % Seg Neuts % (Manual) Lymphocytes % (Manual) Nucleated RBC % Seg Neutrophils # Seg Neutrophils # Man Lymphocytes # (Manual) Monocytes # (Manual) PT INR APTT D-Dimer > 53179 H ABG pH POC ABG pCO2 POC ABG pO2 ABG pO2 ABG O2 Saturation ABG Base Excess ABG Oxyhemoglobin ABG Methemoglobin ABG Potassium ABG Chloride ABG Glucose Oxyhemoglobin Carboxyhemoglobin Sodium Potassium Chloride Carbon Dioxide BUN Creatinine Glucose POC Glucose 169 H Hemoglobin A1c Calcium Phosphorus Magnesium Ferritin 1300.0 H Lactate Dehydrogenase Troponin T C-Reactive Protein Total Protein Albumin Fpoer-6-Gdtrwjywk Jzkpj-8-Tttbrngjd Beta Globulins PEP Interpretation Triglycerides HDL Cholesterol Arterial Blood Glucose Arterial Blood Ionized Calcium Urine WBC (Auto) Coronavirus (PCR) 06/11/21 06/11/21 06/11/21 10:58 10:58 11:49 WBC 11.3 H RBC Hgb Hct RDW 15.3 H Plt Count Lymph % (Auto) Lymph # (Auto) Seg Neutrophils % Seg Neuts % (Manual) 88.0 H Lymphocytes % (Manual) 6.0 L Nucleated RBC % Seg Neutrophils # Seg Neutrophils # Man 9.9 H Lymphocytes # (Manual) 0.7 L Monocytes # (Manual) PT INR APTT D-Dimer ABG pH POC ABG pCO2 POC ABG pO2 ABG pO2 ABG O2 Saturation ABG Base Excess ABG Oxyhemoglobin ABG Methemoglobin ABG Potassium ABG Chloride ABG Glucose Oxyhemoglobin Carboxyhemoglobin Sodium 150 H Potassium 3.4 L Chloride 114.8 H Carbon Dioxide 21 L BUN 65 H Creatinine 2.9 H Glucose 180 H POC Glucose 191 H Hemoglobin A1c Calcium Phosphorus Magnesium 2.50 H Ferritin Lactate Dehydrogenase Troponin T C-Reactive Protein 1.90 H Total Protein Albumin Bphgr-4-Nznbddjpk Srpwn-3-Fjqfedksx Beta Globulins PEP Interpretation Triglycerides HDL Cholesterol Arterial Blood Glucose Arterial Blood Ionized Calcium Urine WBC (Auto) Coronavirus (PCR) 06/11/21 06/11/21 06/12/21 15:49 21:16 04:22 WBC RBC Hgb Hct RDW Plt Count Lymph % (Auto) Lymph # (Auto) Seg Neutrophils % Seg Neuts % (Manual) Lymphocytes % (Manual) Nucleated RBC % Seg Neutrophils # Seg Neutrophils # Man Lymphocytes # (Manual) Monocytes # (Manual) PT INR APTT D-Dimer ABG pH 7.318 L POC ABG pCO2 POC ABG pO2 ABG pO2 51.5 L ABG O2 Saturation 86.9 L ABG Base Excess -5.6 L ABG Oxyhemoglobin ABG Methemoglobin ABG Potassium ABG Chloride ABG Glucose Oxyhemoglobin 85.5 L Carboxyhemoglobin Sodium Potassium Chloride Carbon Dioxide BUN Creatinine Glucose POC Glucose 185 H 200 H Hemoglobin A1c Calcium Phosphorus Magnesium Ferritin Lactate Dehydrogenase Troponin T C-Reactive Protein Total Protein Albumin Satmc-7-Caeinpinj Iadbe-0-Oxlldfszj Beta Globulins PEP Interpretation Triglycerides HDL Cholesterol Arterial Blood Glucose Arterial Blood Ionized Calcium Urine WBC (Auto) Coronavirus (PCR) 06/12/21 06/12/21 06/12/21 07:41 08:31 08:31 WBC 12.4 H RBC Hgb Hct RDW 15.3 H Plt Count Lymph % (Auto) 8.5 L Lymph # (Auto) 1.1 L Seg Neutrophils % 88.1 H Seg Neuts % (Manual) Lymphocytes % (Manual) Nucleated RBC % Seg Neutrophils # 10.9 H Seg Neutrophils # Man Lymphocytes # (Manual) Monocytes # (Manual) PT INR APTT D-Dimer ABG pH POC ABG pCO2 POC ABG pO2 ABG pO2 ABG O2 Saturation ABG Base Excess ABG Oxyhemoglobin ABG Methemoglobin ABG Potassium ABG Chloride ABG Glucose Oxyhemoglobin Carboxyhemoglobin Sodium 151 H Potassium Chloride 117.3 H Carbon Dioxide 21 L BUN 61 H Creatinine 2.5 H Glucose 165 H POC Glucose 165 H Hemoglobin A1c Calcium 8.3 L Phosphorus Magnesium Ferritin Lactate Dehydrogenase Troponin T C-Reactive Protein Total Protein Albumin Zdrof-0-Khaxljlzs Qevdm-1-Ammbyctsy Beta Globulins PEP Interpretation Triglycerides HDL Cholesterol Arterial Blood Glucose Arterial Blood Ionized Calcium Urine WBC (Auto) Coronavirus (PCR) 06/12/21 06/12/21 06/12/21 08:31 10:32 15:47 WBC RBC Hgb Hct RDW Plt Count Lymph % (Auto) Lymph # (Auto) Seg Neutrophils % Seg Neuts % (Manual) Lymphocytes % (Manual) Nucleated RBC % Seg Neutrophils # Seg Neutrophils # Man Lymphocytes # (Manual) Monocytes # (Manual) PT INR APTT D-Dimer ABG pH POC ABG pCO2 POC ABG pO2 ABG pO2 ABG O2 Saturation ABG Base Excess ABG Oxyhemoglobin ABG Methemoglobin ABG Potassium ABG Chloride ABG Glucose Oxyhemoglobin Carboxyhemoglobin Sodium Potassium Chloride Carbon Dioxide BUN Creatinine Glucose POC Glucose 156 H 176 H Hemoglobin A1c Calcium Phosphorus Magnesium 2.50 H Ferritin Lactate Dehydrogenase Troponin T C-Reactive Protein Total Protein Albumin Dmbub-5-Njoemmtmu Ruayj-1-Eapfhbdwz Beta Globulins PEP Interpretation Triglycerides HDL Cholesterol Arterial Blood Glucose Arterial Blood Ionized Calcium Urine WBC (Auto) Coronavirus (PCR) 06/12/21 06/13/21 06/13/21 21:50 07:42 07:42 WBC 14.1 H RBC Hgb Hct RDW 15.3 H Plt Count Lymph % (Auto) Lymph # (Auto) Seg Neutrophils % Seg Neuts % (Manual) 87.0 H Lymphocytes % (Manual) 7.0 L Nucleated RBC % 3.0 H Seg Neutrophils # Seg Neutrophils # Man 12.3 H Lymphocytes # (Manual) 1.0 L Monocytes # (Manual) PT INR APTT D-Dimer ABG pH POC ABG pCO2 POC ABG pO2 ABG pO2 ABG O2 Saturation ABG Base Excess ABG Oxyhemoglobin ABG Methemoglobin ABG Potassium ABG Chloride ABG Glucose Oxyhemoglobin Carboxyhemoglobin Sodium 151 H Potassium 3.5 L Chloride 116.0 H Carbon Dioxide BUN 61 H Creatinine 2.3 H Glucose 135 H POC Glucose 165 H Hemoglobin A1c Calcium Phosphorus Magnesium 2.50 H Ferritin Lactate Dehydrogenase Troponin T C-Reactive Protein Total Protein Albumin Tddmf-9-Qxuwxmgdm Lfvso-3-Cfuvlutjw Beta Globulins PEP Interpretation Triglycerides HDL Cholesterol Arterial Blood Glucose Arterial Blood Ionized Calcium Urine WBC (Auto) Coronavirus (PCR) 06/13/21 06/13/21 06/13/21 08:10 11:10 18:15 WBC RBC Hgb Hct RDW Plt Count Lymph % (Auto) Lymph # (Auto) Seg Neutrophils % Seg Neuts % (Manual) Lymphocytes % (Manual) Nucleated RBC % Seg Neutrophils # Seg Neutrophils # Man Lymphocytes # (Manual) Monocytes # (Manual) PT INR APTT D-Dimer ABG pH POC ABG pCO2 POC ABG pO2 ABG pO2 ABG O2 Saturation ABG Base Excess ABG Oxyhemoglobin ABG Methemoglobin ABG Potassium ABG Chloride ABG Glucose Oxyhemoglobin Carboxyhemoglobin Sodium Potassium Chloride Carbon Dioxide BUN Creatinine Glucose POC Glucose 118 H 139 H 179 H Hemoglobin A1c Calcium Phosphorus Magnesium Ferritin Lactate Dehydrogenase Troponin T C-Reactive Protein Total Protein Albumin Lovnc-5-Pxypbesgx Sjxnd-6-Ezdudejyc Beta Globulins PEP Interpretation Triglycerides HDL Cholesterol Arterial Blood Glucose Arterial Blood Ionized Calcium Urine WBC (Auto) Coronavirus (PCR) 06/13/21 06/13/21 06/14/21 21:54 23:27 04:42 WBC 12.8 H RBC Hgb Hct RDW 15.3 H Plt Count Lymph % (Auto) Lymph # (Auto) Seg Neutrophils % Seg Neuts % (Manual) 92.0 H Lymphocytes % (Manual) 1.0 L Nucleated RBC % 2.0 H Seg Neutrophils # Seg Neutrophils # Man 11.8 H Lymphocytes # (Manual) 0.1 L Monocytes # (Manual) PT INR APTT D-Dimer ABG pH POC ABG pCO2 POC ABG pO2 ABG pO2 ABG O2 Saturation ABG Base Excess ABG Oxyhemoglobin ABG Methemoglobin ABG Potassium ABG Chloride ABG Glucose Oxyhemoglobin Carboxyhemoglobin Sodium 152 H Potassium Chloride 116.3 H Carbon Dioxide 21 L BUN 67 H Creatinine 2.5 H Glucose 212 H POC Glucose 193 H Hemoglobin A1c Calcium Phosphorus Magnesium Ferritin Lactate Dehydrogenase Troponin T C-Reactive Protein Total Protein Albumin Cnrxy-6-Izkvyxgqf Fxutx-6-Zgwrhwijj Beta Globulins PEP Interpretation Triglycerides HDL Cholesterol Arterial Blood Glucose Arterial Blood Ionized Calcium Urine WBC (Auto) Coronavirus (PCR) 06/14/21 06/14/21 06/14/21 04:42 04:42 07:33 WBC RBC Hgb Hct RDW Plt Count Lymph % (Auto) Lymph # (Auto) Seg Neutrophils % Seg Neuts % (Manual) Lymphocytes % (Manual) Nucleated RBC % Seg Neutrophils # Seg Neutrophils # Man Lymphocytes # (Manual) Monocytes # (Manual) PT INR APTT D-Dimer ABG pH POC ABG pCO2 POC ABG pO2 ABG pO2 ABG O2 Saturation ABG Base Excess ABG Oxyhemoglobin ABG Methemoglobin ABG Potassium ABG Chloride ABG Glucose Oxyhemoglobin Carboxyhemoglobin Sodium 152 H Potassium Chloride 115.3 H Carbon Dioxide BUN 68 H Creatinine 2.5 H Glucose 188 H POC Glucose 173 H Hemoglobin A1c Calcium Phosphorus Magnesium 2.40 H Ferritin Lactate Dehydrogenase Troponin T C-Reactive Protein Total Protein Albumin Sayqf-9-Kvwnncwba Omkpj-9-Bezdyqxco Beta Globulins PEP Interpretation Triglycerides HDL Cholesterol Arterial Blood Glucose Arterial Blood Ionized Calcium Urine WBC (Auto) Coronavirus (PCR) 06/14/21 06/14/21 06/14/21 10:57 15:53 23:40 WBC RBC Hgb Hct RDW Plt Count Lymph % (Auto) Lymph # (Auto) Seg Neutrophils % Seg Neuts % (Manual) Lymphocytes % (Manual) Nucleated RBC % Seg Neutrophils # Seg Neutrophils # Man Lymphocytes # (Manual) Monocytes # (Manual) PT INR APTT D-Dimer ABG pH POC ABG pCO2 POC ABG pO2 ABG pO2 ABG O2 Saturation ABG Base Excess ABG Oxyhemoglobin ABG Methemoglobin ABG Potassium ABG Chloride ABG Glucose Oxyhemoglobin Carboxyhemoglobin Sodium Potassium Chloride Carbon Dioxide BUN Creatinine Glucose POC Glucose 195 H 226 H 235 H Hemoglobin A1c Calcium Phosphorus Magnesium Ferritin Lactate Dehydrogenase Troponin T C-Reactive Protein Total Protein Albumin Cfeil-7-Utrixopjy Rirhq-4-Mdtrglmss Beta Globulins PEP Interpretation Triglycerides HDL Cholesterol Arterial Blood Glucose Arterial Blood Ionized Calcium Urine WBC (Auto) Coronavirus (PCR) 06/15/21 06/15/21 06/15/21 07:38 07:38 07:38 WBC 14.3 H RBC Hgb Hct RDW Plt Count Lymph % (Auto) Lymph # (Auto) Seg Neutrophils % Seg Neuts % (Manual) 95.0 H Lymphocytes % (Manual) 1.0 L Nucleated RBC % Seg Neutrophils # Seg Neutrophils # Man 13.6 H Lymphocytes # (Manual) 0.1 L Monocytes # (Manual) PT INR APTT D-Dimer > 70794 H ABG pH POC ABG pCO2 POC ABG pO2 ABG pO2 ABG O2 Saturation ABG Base Excess ABG Oxyhemoglobin ABG Methemoglobin ABG Potassium ABG Chloride ABG Glucose Oxyhemoglobin Carboxyhemoglobin Sodium 153 H Potassium 3.5 L Chloride 115.9 H Carbon Dioxide BUN 55 H Creatinine 2.1 H Glucose 213 H POC Glucose Hemoglobin A1c Calcium Phosphorus Magnesium Ferritin Lactate Dehydrogenase Troponin T C-Reactive Protein Total Protein Albumin Pjjab-1-Xasyvjarw Tvwxw-4-Stlbhlspv Beta Globulins PEP Interpretation Triglycerides HDL Cholesterol Arterial Blood Glucose Arterial Blood Ionized Calcium Urine WBC (Auto) Coronavirus (PCR) 06/15/21 06/15/21 06/15/21 07:38 09:21 11:46 WBC RBC Hgb Hct RDW Plt Count Lymph % (Auto) Lymph # (Auto) Seg Neutrophils % Seg Neuts % (Manual) Lymphocytes % (Manual) Nucleated RBC % Seg Neutrophils # Seg Neutrophils # Man Lymphocytes # (Manual) Monocytes # (Manual) PT INR APTT D-Dimer ABG pH POC ABG pCO2 POC ABG pO2 ABG pO2 ABG O2 Saturation ABG Base Excess ABG Oxyhemoglobin ABG Methemoglobin ABG Potassium ABG Chloride ABG Glucose Oxyhemoglobin Carboxyhemoglobin Sodium Potassium Chloride Carbon Dioxide BUN Creatinine Glucose POC Glucose 202 H 233 H Hemoglobin A1c Calcium Phosphorus Magnesium Ferritin 1246.0 H Lactate Dehydrogenase Troponin T C-Reactive Protein Total Protein Albumin Bkyhq-6-Nlrlhcdpt Esjho-0-Mwlipcphp Beta Globulins PEP Interpretation Triglycerides HDL Cholesterol Arterial Blood Glucose Arterial Blood Ionized Calcium Urine WBC (Auto) Coronavirus (PCR) 06/15/21 06/16/21 06/16/21 17:32 05:44 07:48 WBC RBC Hgb Hct RDW Plt Count Lymph % (Auto) Lymph # (Auto) Seg Neutrophils % Seg Neuts % (Manual) Lymphocytes % (Manual) Nucleated RBC % Seg Neutrophils # Seg Neutrophils # Man Lymphocytes # (Manual) Monocytes # (Manual) PT INR APTT D-Dimer ABG pH POC ABG pCO2 POC ABG pO2 ABG pO2 ABG O2 Saturation ABG Base Excess ABG Oxyhemoglobin ABG Methemoglobin ABG Potassium ABG Chloride ABG Glucose Oxyhemoglobin Carboxyhemoglobin Sodium 154 H Potassium Chloride 117.2 H Carbon Dioxide BUN 54 H Creatinine 2.0 H Glucose 120 H POC Glucose 179 H 109 H Hemoglobin A1c Calcium Phosphorus Magnesium Ferritin Lactate Dehydrogenase Troponin T C-Reactive Protein Total Protein Albumin Gzapm-6-Hohgitqmp Melxi-4-Recqrtjiw Beta Globulins PEP Interpretation Triglycerides HDL Cholesterol Arterial Blood Glucose Arterial Blood Ionized Calcium Urine WBC (Auto) Coronavirus (PCR) 06/16/21 06/16/21 06/16/21 11:13 15:22 21:15 WBC RBC Hgb Hct RDW Plt Count Lymph % (Auto) Lymph # (Auto) Seg Neutrophils % Seg Neuts % (Manual) Lymphocytes % (Manual) Nucleated RBC % Seg Neutrophils # Seg Neutrophils # Man Lymphocytes # (Manual) Monocytes # (Manual) PT INR APTT D-Dimer ABG pH POC ABG pCO2 POC ABG pO2 ABG pO2 ABG O2 Saturation ABG Base Excess ABG Oxyhemoglobin ABG Methemoglobin ABG Potassium ABG Chloride ABG Glucose Oxyhemoglobin Carboxyhemoglobin Sodium Potassium Chloride Carbon Dioxide BUN Creatinine Glucose POC Glucose 222 H 218 H 250 H Hemoglobin A1c Calcium Phosphorus Magnesium Ferritin Lactate Dehydrogenase Troponin T C-Reactive Protein Total Protein Albumin Bkpuy-4-Cqzhdqpvt Glafs-5-Tqjbqymzv Beta Globulins PEP Interpretation Triglycerides HDL Cholesterol Arterial Blood Glucose Arterial Blood Ionized Calcium Urine WBC (Auto) Coronavirus (PCR) 06/17/21 06/17/21 06/17/21 07:55 09:35 09:35 WBC RBC Hgb Hct RDW 15.7 H Plt Count 99 L Lymph % (Auto) Lymph # (Auto) Seg Neutrophils % Seg Neuts % (Manual) Lymphocytes % (Manual) Nucleated RBC % Seg Neutrophils # Seg Neutrophils # Man Lymphocytes # (Manual) Monocytes # (Manual) PT INR APTT D-Dimer ABG pH POC ABG pCO2 POC ABG pO2 ABG pO2 ABG O2 Saturation ABG Base Excess ABG Oxyhemoglobin ABG Methemoglobin ABG Potassium ABG Chloride ABG Glucose Oxyhemoglobin Carboxyhemoglobin Sodium 148 H Potassium Chloride 113.3 H Carbon Dioxide BUN 45 H Creatinine 1.8 H Glucose 202 H POC Glucose 158 H Hemoglobin A1c Calcium Phosphorus Magnesium Ferritin Lactate Dehydrogenase Troponin T C-Reactive Protein Total Protein 6.0 L Albumin 2.8 L Ezdxf-6-Uxwoprxqk Kwzuq-8-Cvtvaeihi Beta Globulins PEP Interpretation Triglycerides HDL Cholesterol Arterial Blood Glucose Arterial Blood Ionized Calcium Urine WBC (Auto) Coronavirus (PCR) 06/17/21 06/17/21 06/18/21 12:32 16:46 06:00 WBC RBC Hgb Hct RDW Plt Count Lymph % (Auto) Lymph # (Auto) Seg Neutrophils % Seg Neuts % (Manual) Lymphocytes % (Manual) Nucleated RBC % Seg Neutrophils # Seg Neutrophils # Man Lymphocytes # (Manual) Monocytes # (Manual) PT INR APTT D-Dimer 9804.08 H ABG pH POC ABG pCO2 POC ABG pO2 ABG pO2 ABG O2 Saturation ABG Base Excess ABG Oxyhemoglobin ABG Methemoglobin ABG Potassium ABG Chloride ABG Glucose Oxyhemoglobin Carboxyhemoglobin Sodium Potassium Chloride Carbon Dioxide BUN Creatinine Glucose POC Glucose 227 H 203 H Hemoglobin A1c Calcium Phosphorus Magnesium Ferritin Lactate Dehydrogenase Troponin T C-Reactive Protein Total Protein Albumin Lceli-0-Fuiszyfpc Lpnlv-6-Wxaxvszjw Beta Globulins PEP Interpretation Triglycerides HDL Cholesterol Arterial Blood Glucose Arterial Blood Ionized Calcium Urine WBC (Auto) Coronavirus (PCR) 06/18/21 06/18/21 06/18/21 06:00 08:00 10:10 WBC RBC Hgb Hct RDW Plt Count Lymph % (Auto) Lymph # (Auto) Seg Neutrophils % Seg Neuts % (Manual) Lymphocytes % (Manual) Nucleated RBC % Seg Neutrophils # Seg Neutrophils # Man Lymphocytes # (Manual) Monocytes # (Manual) PT INR APTT D-Dimer ABG pH POC ABG pCO2 POC ABG pO2 ABG pO2 ABG O2 Saturation ABG Base Excess ABG Oxyhemoglobin ABG Methemoglobin ABG Potassium ABG Chloride ABG Glucose Oxyhemoglobin Carboxyhemoglobin Sodium Potassium Chloride 110.1 H Carbon Dioxide BUN 39 H Creatinine 1.8 H Glucose 135 H POC Glucose 107 H Hemoglobin A1c Calcium Phosphorus Magnesium Ferritin 904.2 H Lactate Dehydrogenase Troponin T C-Reactive Protein Total Protein Albumin Pdrfw-0-Knicylzpd Agvus-9-Kbcdpsemu Beta Globulins PEP Interpretation Triglycerides HDL Cholesterol Arterial Blood Glucose Arterial Blood Ionized Calcium Urine WBC (Auto) Coronavirus (PCR) 06/18/21 06/18/21 06/18/21 12:06 16:47 21:14 WBC RBC Hgb Hct RDW Plt Count Lymph % (Auto) Lymph # (Auto) Seg Neutrophils % Seg Neuts % (Manual) Lymphocytes % (Manual) Nucleated RBC % Seg Neutrophils # Seg Neutrophils # Man Lymphocytes # (Manual) Monocytes # (Manual) PT INR APTT D-Dimer ABG pH POC ABG pCO2 POC ABG pO2 ABG pO2 ABG O2 Saturation ABG Base Excess ABG Oxyhemoglobin ABG Methemoglobin ABG Potassium ABG Chloride ABG Glucose Oxyhemoglobin Carboxyhemoglobin Sodium Potassium Chloride Carbon Dioxide BUN Creatinine Glucose POC Glucose 160 H 236 H 186 H Hemoglobin A1c Calcium Phosphorus Magnesium Ferritin Lactate Dehydrogenase Troponin T C-Reactive Protein Total Protein Albumin Igkiu-2-Tktvopipb Hhksi-6-Tncrfjweb Beta Globulins PEP Interpretation Triglycerides HDL Cholesterol Arterial Blood Glucose Arterial Blood Ionized Calcium Urine WBC (Auto) Coronavirus (PCR) 06/19/21 06/19/21 06/20/21 15:46 15:46 08:04 WBC RBC Hgb Hct RDW 15.5 H Plt Count 73 L Lymph % (Auto) Lymph # (Auto) Seg Neutrophils % Seg Neuts % (Manual) Lymphocytes % (Manual) Nucleated RBC % Seg Neutrophils # Seg Neutrophils # Man Lymphocytes # (Manual) Monocytes # (Manual) PT INR APTT D-Dimer ABG pH POC ABG pCO2 POC ABG pO2 ABG pO2 ABG O2 Saturation ABG Base Excess ABG Oxyhemoglobin ABG Methemoglobin ABG Potassium ABG Chloride ABG Glucose Oxyhemoglobin Carboxyhemoglobin Sodium 146 H Potassium Chloride 108.9 H Carbon Dioxide BUN 38 H Creatinine 1.7 H Glucose POC Glucose 52 L Hemoglobin A1c Calcium Phosphorus Magnesium Ferritin Lactate Dehydrogenase Troponin T C-Reactive Protein Total Protein Albumin Caxeg-7-Xhufiwqxq Aduut-5-Rubukhtsj Beta Globulins PEP Interpretation Triglycerides HDL Cholesterol Arterial Blood Glucose Arterial Blood Ionized Calcium Urine WBC (Auto) Coronavirus (PCR) 06/20/21 06/20/21 06/20/21 11:58 15:16 17:54 WBC RBC Hgb Hct RDW Plt Count Lymph % (Auto) Lymph # (Auto) Seg Neutrophils % Seg Neuts % (Manual) Lymphocytes % (Manual) Nucleated RBC % Seg Neutrophils # Seg Neutrophils # Man Lymphocytes # (Manual) Monocytes # (Manual) PT INR APTT D-Dimer ABG pH POC ABG pCO2 POC ABG pO2 ABG pO2 ABG O2 Saturation ABG Base Excess ABG Oxyhemoglobin ABG Methemoglobin ABG Potassium ABG Chloride ABG Glucose Oxyhemoglobin Carboxyhemoglobin Sodium 146 H Potassium Chloride 108.2 H Carbon Dioxide BUN 37 H Creatinine 1.7 H Glucose 131 H POC Glucose 58 L 219 H Hemoglobin A1c Calcium Phosphorus Magnesium Ferritin Lactate Dehydrogenase Troponin T C-Reactive Protein Total Protein Albumin Odtdb-1-Hpgvbaupg Mwsqe-7-Pjpswuziv Beta Globulins PEP Interpretation Triglycerides HDL Cholesterol Arterial Blood Glucose Arterial Blood Ionized Calcium Urine WBC (Auto) Coronavirus (PCR) 06/20/21 06/21/21 06/21/21 21:58 06:00 07:41 WBC RBC Hgb Hct RDW Plt Count Lymph % (Auto) Lymph # (Auto) Seg Neutrophils % Seg Neuts % (Manual) Lymphocytes % (Manual) Nucleated RBC % Seg Neutrophils # Seg Neutrophils # Man Lymphocytes # (Manual) Monocytes # (Manual) PT INR APTT D-Dimer ABG pH POC ABG pCO2 POC ABG pO2 ABG pO2 ABG O2 Saturation ABG Base Excess ABG Oxyhemoglobin ABG Methemoglobin ABG Potassium ABG Chloride ABG Glucose Oxyhemoglobin Carboxyhemoglobin Sodium Potassium Chloride Carbon Dioxide BUN 42 H Creatinine 2.0 H Glucose 225 H POC Glucose 180 H 204 H Hemoglobin A1c Calcium Phosphorus Magnesium Ferritin Lactate Dehydrogenase Troponin T C-Reactive Protein Total Protein Albumin Soihj-1-Alsxkpowb Tdvdf-3-Crjxonhiy Beta Globulins PEP Interpretation Triglycerides HDL Cholesterol Arterial Blood Glucose Arterial Blood Ionized Calcium Urine WBC (Auto) Coronavirus (PCR) 06/21/21 06/21/21 06/21/21 11:01 11:20 15:57 WBC RBC Hgb Hct RDW Plt Count Lymph % (Auto) Lymph # (Auto) Seg Neutrophils % Seg Neuts % (Manual) Lymphocytes % (Manual) Nucleated RBC % Seg Neutrophils # Seg Neutrophils # Man Lymphocytes # (Manual) Monocytes # (Manual) PT INR APTT D-Dimer ABG pH POC ABG pCO2 POC ABG pO2 58.9 L ABG pO2 ABG O2 Saturation ABG Base Excess ABG Oxyhemoglobin 87.4 L ABG Methemoglobin ABG Potassium ABG Chloride ABG Glucose 212 H Oxyhemoglobin Carboxyhemoglobin Sodium Potassium Chloride Carbon Dioxide BUN Creatinine Glucose POC Glucose 194 H 171 H Hemoglobin A1c Calcium Phosphorus Magnesium Ferritin Lactate Dehydrogenase Troponin T C-Reactive Protein Total Protein Albumin Cguch-7-Opzbdxcmq Ofxnt-1-Mnyitgwnc Beta Globulins PEP Interpretation Triglycerides HDL Cholesterol Arterial Blood Glucose 212 H Arterial Blood Ionized Calcium 4.5 L Urine WBC (Auto) Coronavirus (PCR) 06/21/21 06/21/21 06/21/21 17:52 17:55 22:09 WBC RBC Hgb Hct RDW Plt Count Lymph % (Auto) Lymph # (Auto) Seg Neutrophils % Seg Neuts % (Manual) Lymphocytes % (Manual) Nucleated RBC % Seg Neutrophils # Seg Neutrophils # Man Lymphocytes # (Manual) Monocytes # (Manual) PT INR APTT D-Dimer ABG pH 7.316 L POC ABG pCO2 51.7 H POC ABG pO2 62.3 L ABG pO2 ABG O2 Saturation ABG Base Excess ABG Oxyhemoglobin 88.7 L ABG Methemoglobin ABG Potassium ABG Chloride ABG Glucose 197 H Oxyhemoglobin Carboxyhemoglobin Sodium Potassium Chloride Carbon Dioxide BUN Creatinine Glucose POC Glucose 153 H 178 H Hemoglobin A1c Calcium Phosphorus Magnesium Ferritin Lactate Dehydrogenase Troponin T C-Reactive Protein Total Protein Albumin Noobz-2-Rcyxkgrsk Fumns-8-Uttpazerj Beta Globulins PEP Interpretation Triglycerides HDL Cholesterol Arterial Blood Glucose 197 H Arterial Blood Ionized Calcium Urine WBC (Auto) Coronavirus (PCR) 06/22/21 06/22/21 06/22/21 07:30 07:43 11:47 WBC RBC Hgb Hct RDW Plt Count Lymph % (Auto) Lymph # (Auto) Seg Neutrophils % Seg Neuts % (Manual) Lymphocytes % (Manual) Nucleated RBC % Seg Neutrophils # Seg Neutrophils # Man Lymphocytes # (Manual) Monocytes # (Manual) PT INR APTT D-Dimer ABG pH POC ABG pCO2 POC ABG pO2 ABG pO2 ABG O2 Saturation ABG Base Excess ABG Oxyhemoglobin ABG Methemoglobin ABG Potassium ABG Chloride ABG Glucose Oxyhemoglobin Carboxyhemoglobin Sodium Potassium Chloride Carbon Dioxide 21 L BUN 55 H Creatinine 2.8 H Glucose 219 H POC Glucose 235 H 222 H Hemoglobin A1c Calcium Phosphorus Magnesium Ferritin Lactate Dehydrogenase Troponin T C-Reactive Protein Total Protein Albumin Kgwrw-2-Rxovhddmf Airgv-9-Rmtuehxur Beta Globulins PEP Interpretation Triglycerides HDL Cholesterol Arterial Blood Glucose Arterial Blood Ionized Calcium Urine WBC (Auto) Coronavirus (PCR) 06/22/21 06/22/21 06/22/21 11:50 12:10 15:15 WBC RBC Hgb Hct RDW Plt Count Lymph % (Auto) Lymph # (Auto) Seg Neutrophils % Seg Neuts % (Manual) Lymphocytes % (Manual) Nucleated RBC % Seg Neutrophils # Seg Neutrophils # Man Lymphocytes # (Manual) Monocytes # (Manual) PT INR APTT D-Dimer ABG pH 7.273 L POC ABG pCO2 POC ABG pO2 56.8 L 56.8 L ABG pO2 58.0 L ABG O2 Saturation 85.7 L ABG Base Excess -4.9 L ABG Oxyhemoglobin 86.7 L 86.7 L ABG Methemoglobin ABG Potassium ABG Chloride ABG Glucose Oxyhemoglobin 84.1 L Carboxyhemoglobin Sodium Potassium Chloride Carbon Dioxide BUN Creatinine Glucose POC Glucose Hemoglobin A1c Calcium Phosphorus Magnesium Ferritin Lactate Dehydrogenase Troponin T C-Reactive Protein Total Protein Albumin Glqij-2-Idbkrgumj Lydlc-1-Snklsyqcl Beta Globulins PEP Interpretation Triglycerides HDL Cholesterol Arterial Blood Glucose Arterial Blood Ionized Calcium Urine WBC (Auto) Coronavirus (PCR) 06/22/21 06/22/21 06/22/21 17:28 21:22 23:35 WBC RBC Hgb Hct RDW Plt Count Lymph % (Auto) Lymph # (Auto) Seg Neutrophils % Seg Neuts % (Manual) Lymphocytes % (Manual) Nucleated RBC % Seg Neutrophils # Seg Neutrophils # Man Lymphocytes # (Manual) Monocytes # (Manual) PT INR APTT D-Dimer ABG pH 7.217 L POC ABG pCO2 POC ABG pO2 ABG pO2 61.7 L ABG O2 Saturation 87.3 L ABG Base Excess -6.0 L ABG Oxyhemoglobin ABG Methemoglobin ABG Potassium ABG Chloride ABG Glucose Oxyhemoglobin 85.4 L Carboxyhemoglobin Sodium Potassium Chloride Carbon Dioxide BUN Creatinine Glucose POC Glucose 221 H 204 H Hemoglobin A1c Calcium Phosphorus Magnesium Ferritin Lactate Dehydrogenase Troponin T C-Reactive Protein Total Protein Albumin Uhwrz-2-Bftkhxftv Uroca-8-Euibrdjxu Beta Globulins PEP Interpretation Triglycerides HDL Cholesterol Arterial Blood Glucose Arterial Blood Ionized Calcium Urine WBC (Auto) Coronavirus (PCR) 06/23/21 06/23/21 06/23/21 04:42 04:42 04:42 WBC 19.0 H RBC 5.04 H Hgb Hct 44.5 H RDW 16.6 H Plt Count 61 L Lymph % (Auto) Lymph # (Auto) Seg Neutrophils % Seg Neuts % (Manual) Lymphocytes % (Manual) 2.0 L Nucleated RBC % 46.0 H Seg Neutrophils # Seg Neutrophils # Man 13.1 H Lymphocytes # (Manual) 0.4 L Monocytes # (Manual) 1.1 H PT INR APTT D-Dimer 6308.27 H ABG pH POC ABG pCO2 POC ABG pO2 ABG pO2 ABG O2 Saturation ABG Base Excess ABG Oxyhemoglobin ABG Methemoglobin ABG Potassium ABG Chloride ABG Glucose Oxyhemoglobin Carboxyhemoglobin Sodium Potassium 6.3 H* D Chloride Carbon Dioxide 21 L BUN 72 H Creatinine 4.6 H D Glucose 225 H POC Glucose Hemoglobin A1c Calcium 8.0 L Phosphorus Magnesium Ferritin Lactate Dehydrogenase Troponin T C-Reactive Protein Total Protein Albumin Bpspq-6-Nenubmjsh Dxasw-8-Clpzjsujf Beta Globulins PEP Interpretation Triglycerides HDL Cholesterol Arterial Blood Glucose Arterial Blood Ionized Calcium Urine WBC (Auto) Coronavirus (PCR) 06/23/21 06/23/21 06/23/21 04:42 04:42 05:33 WBC RBC Hgb Hct RDW Plt Count Lymph % (Auto) Lymph # (Auto) Seg Neutrophils % Seg Neuts % (Manual) Lymphocytes % (Manual) Nucleated RBC % Seg Neutrophils # Seg Neutrophils # Man Lymphocytes # (Manual) Monocytes # (Manual) PT INR APTT D-Dimer ABG pH POC ABG pCO2 POC ABG pO2 ABG pO2 ABG O2 Saturation ABG Base Excess ABG Oxyhemoglobin ABG Methemoglobin ABG Potassium ABG Chloride ABG Glucose Oxyhemoglobin Carboxyhemoglobin Sodium Potassium Chloride Carbon Dioxide BUN Creatinine Glucose POC Glucose 227 H Hemoglobin A1c Calcium 7.9 L Phosphorus 8.30 H Magnesium Ferritin 1496.0 H Lactate Dehydrogenase Troponin T C-Reactive Protein 4.40 H Total Protein Albumin Fbieh-5-Kbfkemxkr Grrkz-4-Vtibxdimf Beta Globulins PEP Interpretation Triglycerides HDL Cholesterol Arterial Blood Glucose Arterial Blood Ionized Calcium Urine WBC (Auto) Coronavirus (PCR) 06/23/21 06/23/21 06/23/21 11:00 11:31 17:40 WBC RBC Hgb Hct RDW Plt Count Lymph % (Auto) Lymph # (Auto) Seg Neutrophils % Seg Neuts % (Manual) Lymphocytes % (Manual) Nucleated RBC % Seg Neutrophils # Seg Neutrophils # Man Lymphocytes # (Manual) Monocytes # (Manual) PT INR APTT D-Dimer ABG pH 7.177 L POC ABG pCO2 58.9 H POC ABG pO2 60.2 L ABG pO2 ABG O2 Saturation ABG Base Excess ABG Oxyhemoglobin 83.5 L ABG Methemoglobin 1.8 H ABG Potassium ABG Chloride ABG Glucose Oxyhemoglobin Carboxyhemoglobin Sodium Potassium Chloride Carbon Dioxide BUN Creatinine Glucose POC Glucose 207 H Hemoglobin A1c Calcium Phosphorus Magnesium Ferritin Lactate Dehydrogenase Troponin T C-Reactive Protein Total Protein Albumin Zkmxr-5-Fijhghued Iloer-8-Bnkpiuply Beta Globulins PEP Interpretation Triglycerides HDL Cholesterol Arterial Blood Glucose Arterial Blood Ionized Calcium Urine WBC (Auto) > 182.0 H Coronavirus (PCR) 06/23/21 06/23/21 06/23/21 17:52 21:12 Unknown WBC RBC Hgb Hct RDW Plt Count Lymph % (Auto) Lymph # (Auto) Seg Neutrophils % Seg Neuts % (Manual) Lymphocytes % (Manual) Nucleated RBC % Seg Neutrophils # Seg Neutrophils # Man Lymphocytes # (Manual) Monocytes # (Manual) PT INR APTT D-Dimer 6308 H ABG pH 7.214 L POC ABG pCO2 60.2 H POC ABG pO2 78.9 L ABG pO2 ABG O2 Saturation ABG Base Excess ABG Oxyhemoglobin 93.4 L ABG Methemoglobin ABG Potassium 6.3 H ABG Chloride ABG Glucose 338 H Oxyhemoglobin Carboxyhemoglobin Sodium Potassium Chloride Carbon Dioxide BUN Creatinine Glucose POC Glucose 232 H Hemoglobin A1c Calcium Phosphorus Magnesium Ferritin Lactate Dehydrogenase Troponin T C-Reactive Protein Total Protein Albumin Tvbdp-8-Pdhscqwdg Vbjew-3-Cmtcbxisu Beta Globulins PEP Interpretation Triglycerides HDL Cholesterol Arterial Blood Glucose 338 H Arterial Blood Ionized Calcium 4.1 L Urine WBC (Auto) Coronavirus (PCR) 06/23/21 06/23/21 06/23/21 Unknown Unknown Unknown WBC RBC Hgb Hct RDW Plt Count Lymph % (Auto) Lymph # (Auto) Seg Neutrophils % Seg Neuts % (Manual) Lymphocytes % (Manual) Nucleated RBC % Seg Neutrophils # Seg Neutrophils # Man Lymphocytes # (Manual) Monocytes # (Manual) PT 24.6 H INR 2.18 H APTT 43.8 H D-Dimer ABG pH POC ABG pCO2 POC ABG pO2 ABG pO2 ABG O2 Saturation ABG Base Excess ABG Oxyhemoglobin ABG Methemoglobin ABG Potassium ABG Chloride ABG Glucose Oxyhemoglobin Carboxyhemoglobin Sodium 146 H Potassium 5.3 H Chloride 113.2 H Carbon Dioxide 20 L BUN 73 H Creatinine 4.2 H Glucose 234 H POC Glucose Hemoglobin A1c Calcium 6.3 L D Phosphorus Magnesium Ferritin 1094.0 H Lactate Dehydrogenase Troponin T C-Reactive Protein Total Protein 4.3 L Albumin 2.0 L Yghaq-3-Cijcaazel Afytq-3-Bvlaltqem Beta Globulins PEP Interpretation Triglycerides HDL Cholesterol Arterial Blood Glucose Arterial Blood Ionized Calcium Urine WBC (Auto) Coronavirus (PCR) 06/24/21 06/24/21 06/24/21 00:03 04:55 04:55 WBC 18.7 H RBC Hgb Hct RDW 16.8 H Plt Count 42 L Lymph % (Auto) Lymph # (Auto) Seg Neutrophils % Seg Neuts % (Manual) Lymphocytes % (Manual) 1.0 L Nucleated RBC % 1.0 H Seg Neutrophils # Seg Neutrophils # Man 12.7 H Lymphocytes # (Manual) 0.2 L Monocytes # (Manual) PT INR APTT D-Dimer ABG pH POC ABG pCO2 POC ABG pO2 ABG pO2 ABG O2 Saturation ABG Base Excess ABG Oxyhemoglobin ABG Methemoglobin ABG Potassium ABG Chloride ABG Glucose Oxyhemoglobin Carboxyhemoglobin Sodium Potassium 6.0 H Chloride Carbon Dioxide 20 L BUN 86 H Creatinine 5.4 H Glucose 309 H POC Glucose 265 H Hemoglobin A1c Calcium 6.5 L Phosphorus 7.60 H Magnesium Ferritin Lactate Dehydrogenase Troponin T C-Reactive Protein Total Protein 4.6 L Albumin 2.1 L Yympo-9-Utnvadepb Ewykc-1-Soizdjiqx Beta Globulins PEP Interpretation Triglycerides HDL Cholesterol Arterial Blood Glucose Arterial Blood Ionized Calcium Urine WBC (Auto) Coronavirus (PCR) 06/24/21 06/24/21 06/24/21 04:55 06:01 11:38 WBC RBC Hgb Hct RDW Plt Count Lymph % (Auto) Lymph # (Auto) Seg Neutrophils % Seg Neuts % (Manual) Lymphocytes % (Manual) Nucleated RBC % Seg Neutrophils # Seg Neutrophils # Man Lymphocytes # (Manual) Monocytes # (Manual) PT 22.2 H INR 1.90 H APTT D-Dimer ABG pH POC ABG pCO2 POC ABG pO2 ABG pO2 ABG O2 Saturation ABG Base Excess ABG Oxyhemoglobin ABG Methemoglobin ABG Potassium ABG Chloride ABG Glucose Oxyhemoglobin Carboxyhemoglobin Sodium Potassium Chloride Carbon Dioxide BUN Creatinine Glucose POC Glucose 257 H 288 H Hemoglobin A1c Calcium Phosphorus Magnesium Ferritin Lactate Dehydrogenase Troponin T C-Reactive Protein Total Protein Albumin [id number] Beta Globulins PEP Interpretation Triglycerides HDL Cholesterol Arterial Blood Glucose Arterial Blood Ionized Calcium Urine WBC (Auto) Coronavirus (PCR) Allied health notes reviewed: nursing
--- NOTE | 2021-06-24 13:45 | Procedure Note ---
Date of procedure: 06/24/21 Pre-op diagnosis: TREMAINE Post-op diagnosis: same Procedure: RIJ VASCATH PLACEMENT (Full dictation # [id number]) Please see dictated notes for full details
[2021-06-24] MEDS ORDERED: VANCOMYCIN 1,500 MG in SODIUM CHLORIDE 0.9% 500 ML 500 ML IV ONE ×2 (14:00→20:00)
--- NOTE | 2021-06-24 14:09 | XRay Report ---
CHEST 1 VIEW 06/24/2021 12:57 PM INDICATION / CLINICAL INFORMATION: vascath placement. COMPARISON: Earlier the same day. FINDINGS: SUPPORT DEVICES: New right IJ vas catheter has its tip at the right atrial/SVC junction. No pneumotho rax. NG tube in satisfactory position. HEART / MEDIASTINUM: No significant abnormality. LUNGS / PLEURA: Bilateral opacity remains. No significant pleural fluid. ADDITIONAL FINDINGS: No significant additional findings. IMPRESSION: 1. Satisfactory Vas-Cath placement. 2. Diffuse bilateral opacity remains. Signer Name: Tony Biswas MD Signed: 06/24/2021 2:05 PM Workstation Name: [id number]
--- NOTE | 2021-06-24 14:11 | Progress Note ---
Assessment and Plan Assessment and Plan COVID-19 breakthrough infection COVID-19 pneumonia Acute kidney injury possibly 2/2 prerenal/ATN, hypotension on underlying CKD Acute hypoxic respiratory failure Insulin-dependent type 2 diabetes- uncontrolled Elevated troponin Hypertension-controlled Hypothyroidism Protein calorie malnutrition Hypernatremia Plan Renal function reviewed, SCr level increased to 5.4 today, yesterday's SCr level was 4.6 Worsening renal function with hyperkalemia. We recommend initiation of HD. I spoke with pt's on the phone who mentioned he was aware of HD as pt had dialysis catheter placement today. agreeable to HD. Monitor for signs of renal recovery S/p Right IJ Vas catheter placement on 06/24/21 First HD treatment today mainly for clearance HD prescription adjusted to decreased dialysate temp, higher calcium bath, sodium modeling, and PRN albumin to assist with hemodynamic stability during HD HD again tomorrow for UF and clearance Assess need for HD on daily basis On levophed and vasopressin drips Renal US was negative for hydronephrosis On sodium bicarbonate drip Serum Na level stable today Renally dose medications Strict I&O's daily Intake= 3431 ml Output= 1190 ml (Net= 2241 ml) Renal plan d/w Dr Schultz Subjective Date of service: 06/24/21 Principal diagnosis: ARDS; Pneumonia; COVID-19 virus infection; TREMAINE; DM II; Morbid obesity Interval history: Pt on isolation for covid-19, reviewed medical chart, labs, and notes. Pt s/p Right IJ Vas catheter placement today. ICU nurse states pt is currently on levo phed and vasopressin drips. Objective - Vital Signs Vital signs: Vital Signs - 12hr 06/24/21 06/24/21 06/24/21 02:11 02:21 02:31 Temperature Pulse Rate 136 H 124 H 124 H Pulse Rate [ From Monitor] Respiratory 28 H 30 H 30 H Rate Blood Pressure 104/63 111/72 122/52 O2 Sat by Pulse 93 93 92 Oximetry 06/24/21 06/24/21 06/24/21 02:41 02:51 03:00 Temperature Pulse Rate 120 H 123 H 132 H Pulse Rate [ From Monitor] Respiratory 30 H 30 H 30 H Rate Blood Pressure 122/52 111/72 108/61 O2 Sat by Pulse 93 92 94 Oximetry 06/24/21 06/24/21 06/24/21 03:11 03:21 03:30 Temperature Pulse Rate 122 H 125 H 118 H Pulse Rate [ From Monitor] Respiratory 30 H 30 H 30 H Rate Blood Pressure 108/61 104/59 117/53 O2 Sat by Pulse 93 95 94 Oximetry 06/24/21 06/24/21 06/24/21 03:41 03:51 04:00 Temperature Pulse Rate 120 H 119 H Pulse Rate [ From Monitor] Respiratory 30 H 30 H Rate Blood Pressure 117/53 118/67 O2 Sat by Pulse 93 94 90 Oximetry 06/24/21 06/24/21 06/24/21 04:01 04:09 04:11 Temperature Pulse Rate 117 H 117 H 115 H Pulse Rate [ From Monitor] Respiratory 28 H 30 H Rate Blood Pressure 118/67 115/65 O2 Sat by Pulse 94 93 94 Oximetry 06/24/21 06/24/21 06/24/21 04:21 04:30 04:41 Temperature Pulse Rate 123 H 116 H 123 H Pulse Rate [ From Monitor] Respiratory 30 H 30 H 30 H Rate Blood Pressure 126/60 126/64 126/64 O2 Sat by Pulse 94 95 94 Oximetry 06/24/21 06/24/21 06/24/21 04:51 05:00 05:11 Temperature Pulse Rate 123 H 121 H 120 H Pulse Rate [ From Monitor] Respiratory 30 H 30 H 28 H Rate Blood Pressure 126/64 123/56 123/56 O2 Sat by Pulse 93 92 94 Oximetry 06/24/21 06/24/21 06/24/21 05:21 05:31 05:41 Temperature Pulse Rate 117 H 120 H 116 H Pulse Rate [ From Monitor] Respiratory 12 29 H 30 H Rate Blood Pressure 123/56 123/56 123/56 O2 Sat by Pulse 81 L 93 94 Oximetry 06/24/21 06/24/21 06/24/21 05:51 06:00 06:11 Temperature Pulse Rate 118 H 116 H 112 H Pulse Rate [ From Monitor] Respiratory 30 H 30 H 30 H Rate Blood Pressure 123/56 126/48 126/48 O2 Sat by Pulse 95 93 95 Oximetry 06/24/21 06/24/21 06/24/21 06:21 06:30 06:41 Temperature Pulse Rate 111 H 113 H 107 H Pulse Rate [ From Monitor] Respiratory 30 H 30 H 30 H Rate Blood Pressure 127/43 126/58 126/58 O2 Sat by Pulse 95 94 95 Oximetry 06/24/21 06/24/21 06/24/21 06:51 07:00 07:11 Temperature Pulse Rate 111 H 111 H 105 H Pulse Rate [ From Monitor] Respiratory 30 H 30 H 29 H Rate Blood Pressure 130/68 136/58 136/58 O2 Sat by Pulse 95 95 95 Oximetry 06/24/21 06/24/21 06/24/21 07:21 07:30 07:31 Temperature Pulse Rate 111 H 111 H 111 H Pulse Rate [ From Monitor] Respiratory 30 H 30 H Rate Blood Pressure 148/55 125/58 O2 Sat by Pulse 95 95 Oximetry 06/24/21 06/24/21 06/24/21 07:41 07:50 07:57 Temperature 100.4 F H Pulse Rate 107 H 106 H Pulse Rate [ From Monitor] Respiratory 30 H 30 H Rate Blood Pressure 125/58 126/57 O2 Sat by Pulse Oximetry 06/24/21 06/24/21 06/24/21 08:00 08:10 08:21 Temperature Pulse Rate 111 H 109 H 109 H Pulse Rate [ 111 H From Monitor] Respiratory 30 H 30 H 30 H Rate Blood Pressure 117/57 117/57 118/52 O2 Sat by Pulse 96 Oximetry 06/24/21 06/24/21 06/24/21 08:30 08:41 08:51 Temperature Pulse Rate 111 H 105 H 106 H Pulse Rate [ From Monitor] Respiratory 30 H 30 H 30 H Rate Blood Pressure 116/58 116/58 120/52 O2 Sat by Pulse Oximetry 06/24/21 06/24/21 06/24/21 09:00 09:11 09:21 Temperature Pulse Rate 107 H 109 H 108 H Pulse Rate [ From Monitor] Respiratory 30 H 30 H 30 H Rate Blood Pressure 125/50 125/50 115/39 O2 Sat by Pulse Oximetry 06/24/21 06/24/21 06/24/21 09:30 09:41 09:51 Temperature Pulse Rate 99 H 114 H 103 H Pulse Rate [ From Monitor] Respiratory 30 H 30 H 30 H Rate Blood Pressure 108/56 108/56 117/48 O2 Sat by Pulse Oximetry 06/24/21 06/24/21 06/24/21 10:01 10:11 10:21 Temperature Pulse Rate 110 H 109 H 107 H Pulse Rate [ From Monitor] Respiratory 30 H 30 H 30 H Rate Blood Pressure 109/38 109/38 105/34 O2 Sat by Pulse Oximetry 06/24/21 06/24/21 06/24/21 10:30 10:41 10:51 Temperature Pulse Rate 108 H 107 H 108 H Pulse Rate [ From Monitor] Respiratory 30 H 30 H 30 H Rate Blood Pressure 100/51 100/51 100/44 O2 Sat by Pulse Oximetry 06/24/21 06/24/21 06/24/21 11:00 11:07 11:35 Temperature Pulse Rate 108 H 107 H 113 H Pulse Rate [ From Monitor] Respiratory 30 H Rate Blood Pressure 107/41 O2 Sat by Pulse 96 Oximetry 06/24/21 06/24/21 11:37 12:00 Temperature 101.7 F H Pulse Rate Pulse Rate [ 113 H From Monitor] Respiratory Rate Blood Pressure O2 Sat by Pulse 90 Oximetry - Lab 06/24/21 04:55 06/24/21 04:55 Most recent lab results ABG pH 7.214 (7.320-7.450) L 06/23/21 21:12 ABG pCO2 56.5 mm Hg 06/22/21 21:22 ABG pO2 61.7 mm Hg (80.0-90.0) L 06/22/21 21:22 ABG HCO3 22.5 mmol/L (20.0-26.0) 06/22/21 21:22 ABG O2 Saturation 94.2 (0-100) 06/23/21 21:12 Calcium 6.5 mg/dL (8.4-10.2) L 06/24/21 04:55 Phosphorus 7.60 mg/dL (2.5-4.5) H 06/24/21 04:55 Magnesium 2.00 mg/dL (1.7-2.3) 06/24/21 04:55 Medications & Allergies - Medications Allergies/Adverse Reactions: Allergies latex Allergy (Verified 03/19/19 17:03) Unknown shellfish derived Allergy (Verified 03/19/19 17:03) Anaphylaxis strawberry Allergy (Verified 03/19/19 17:03) Anaphylaxis tomato Allergy (Verified 03/19/19 17:03) Anaphylaxis nuts Allergy (Uncoded 03/19/19 17:03) Anaphylaxis Home Medications: Home Medications Medication Instructions Recorded Confirmed Last Taken Type Albuterol Sulfate [Ventolin HFA] 2 puff IH Q4H PRN 01/29/14 06/11/21 02/01/15 History Levothyroxine (Nf) [Synthroid (Nf)] 275 mcg PO QAM 01/29/14 06/11/21 02/01/15 History Fluticasone/Salmeterol [Advair 1 each IH PRN PRN 01/26/15 06/11/21 02/02/15 10:00 History Diskus 250-50 mcg] Apixaban [Eliquis starter pack] 5 mg PO BID 09/13/19 06/11/21 Unknown History Insulin Aspart Prot/Insuln Asp 45 unit SUB-Q QAM 09/13/19 06/11/21 Unknown History [Novolog Mix 70-30 Flexpen] Insulin Glargine,Hum.rec.anlog 25 unit SQ HS 09/13/19 06/11/21 Unknown History [Basaglar Kwikpen U-100] Lovastatin [Altoprev] 20 mg PO DAILY 09/13/19 06/11/21 Unknown History Docusate Sodium [Colace CAP] 100 mg PO BID PRN #30 capsule 09/17/19 06/11/21 Unknown Rx Loratadine/Pseudoephedrine 1 each PO Q24HR #10 tablet 09/17/19 06/11/21 Unknown Rx [Claritin-D 24HR] Ondansetron [Zofran Odt] 4 mg PO Q8HR #20 tab.rapdis 09/17/19 06/11/21 Unknown Rx carvediloL [Coreg] 3.125 mg PO BID #60 tablet 09/17/19 06/11/21 Unknown Rx hydrALAZINE [Apresoline TAB] 25 mg PO Q8HR #90 tablet 09/17/19 06/11/21 Unknown Rx Active Medications: Generic Name Dose Route Start Last Admin Trade Name Freq PRN Reason Stop Dose Admin Acetaminophen 650 mg 06/07/21 21:41 06/24/21 11:45 Acetaminophen 325 Mg Tab PO 650 mg Q4H PRN Administration Pain MILD(1-3)/Fever >100.5/MARTÍNEZ Albuterol 2 mg 06/23/21 09:00 Albuterol 2.5 Mg/3 Ml Nebu IH Q4HRT PRN Shortness Of Breath Lipase/Protease/Amylase 1 each 06/22/21 14:36 Lipase 10,500/Protease 25,000/Amylase 43,750 (Units) Dr Cap FEEDTUBE PRN PRN For Clogged Feeding Tube Ascorbic Acid 500 mg 06/22/21 22:00 06/24/21 09:33 Ascorbic Acid 500 Mg Tab PO 500 mg BID LEONOR Administration Atorvastatin Calcium 10 mg 06/08/21 10:00 06/24/21 09:33 Atorvastatin 10 Mg Tab PO 10 mg DAILY LEONOR Administration Dextrose 50 ml 06/08/21 12:04 06/20/21 12:16 Dextrose 50% In Water (25gm) 50 Ml Syringe IV 50 ml Q30MIN PRN Administration Hypoglycemia Protocol Docusate Sodium 100 mg 06/23/21 09:00 Docusate Sodium 100 Mg/10 Ml Oral Liqd PO BID PRN Constipation Enoxaparin Sodium 40 mg 06/23/21 11:00 06/24/21 09:34 Enoxaparin 40 Mg/0.4 Ml Inj SUB-Q 40 mg DAILY LEONOR Administration Protocol Famotidine 10 mg 06/22/21 22:00 06/24/21 09:33 Famotidine 20 Mg/2 Ml Inj IV 10 mg BID LEONOR Administration Fentanyl 50 mcg 06/22/21 13:07 06/22/21 21:09 Fentanyl 100 Mcg/2 Ml Inj IV 50 mcg Q10MIN PRN Administration ANALGESIA Hydrophilic Ointment 1 applic 06/22/21 13:07 Lip Therapy Vaseline TP Q2HR PRN Dry Lips Fentanyl Citrate 2,000 mcg in 100 mls @ 8.2 mls/hr 06/22/21 14:00 06/24/21 10:18 Fentanyl Drip Premix IV 2 mcg/kg/hr TITR LEONOR 16.4 mls/hr Titration Protocol 1 MCG/KG/HR NORepinephrine/NS 8 MG-250 ML 8 mg in 250 mls @ 3.75 mls/hr 06/22/21 15:00 06/24/21 10:19 Norepinephrine/Ns 8 Mg-250 Ml (Double Conc) IV 10 mcg/min TITRATE LEONOR 18.75 mls/hr Titration Protocol 2 MCG/MIN Cefepime HCl 2 gm in 100 mls @ 200 mls/hr 06/23/21 08:00 06/24/21 09:35 Cefepime/Ns 2 Gm/100 Ml IV Infused Q24H LEONOR Infusion Protocol Vasopressin 20 unit/ Sodium 101 mls @ 9.09 mls/hr 06/23/21 09:00 06/24/21 07:21 Chloride IV 0.03 units/min TITR LEONOR 9.09 mls/hr Administration Protocol 0.03 UNITS/MIN Sodium Chloride 500 mls @ 1 mls/hr 06/23/21 11:19 Nacl 0.9% 500 Ml IV DIRECT PRN ARTERIAL LINE FLUSH Sodium Bicarbonate 150 meq/ 1,150 mls @ 75 mls/hr 06/23/21 13:00 06/24/21 06:46 Sterile Water IV 06/25/21 04:19 75 mls/hr DIRECT LEONOR Administration Lacosamide 100 mg/ Sodium 110 mls @ 100 mls/hr 06/23/21 15:00 06/24/21 03:50 Chloride IV 100 mls/hr Q12H LEONOR Administration Vancomycin HCl 1,500 mg/ 530 mls @ 333.333 mls/hr 06/24/21 20:00 Sodium Chloride IV 06/24/21 21:35 ONCE ONE Sodium Chloride 100 mls @ 999 mls/hr 06/24/21 14:02 Nacl 0.9% IV KORINA PRN Hypotension Insulin Human Isoph/Insulin Regular 20 unit 06/23/21 22:00 06/24/21 09:35 Insulin Nph/Regular 70/30 Inj SUB-Q 20 unit BID LEONOR Administration Insulin Human Regular 0 units 06/22/21 18:00 06/24/21 11:45 Insulin Regular, Human 100 Units/1 Ml SUB-Q 6 units Q6HR LEONOR Administration Protocol Levothyroxine Sodium 137.5 mcg 06/23/21 06:00 06/24/21 06:08 Levothyroxine 100 Mcg Inj IV 137.5 mcg DAILY@0600 LEONOR Administration Methylprednisolone Sodium Succinate 100 mg 06/21/21 16:00 06/24/21 08:38 Methylprednisolone Sod Succinate 125 Mg/2 Ml Inj IV 100 mg Q8H LEONOR Administration Midodrine 10 mg 06/22/21 15:00 06/24/21 06:08 Midodrine 5 Mg Tab PO 10 mg Q8H LEONOR Administration Multi-Ingred Cream/Lotion/Oil/Oint 1 applic 06/22/21 13:07 Mineral Oil/Petrolatum, White Ophth Oint 3.5 Gm OU Q4HR PRN Dry Eye(s) Ondansetron HCl 4 mg 06/07/21 21:41 06/20/21 22:15 Ondansetron 4 Mg/2 Ml Inj IV 4 mg Q8H PRN Administration Nausea And Vomiting Senna/Docusate Sodium 1 tab 06/22/21 22:00 06/24/21 09:33 Sennosides/Docusate Sodium 8.6/50 Mg Tab FEEDTUBE 1 tab BID LEONOR Administration Simple Syrup 15 ml 06/22/21 14:36 Simple Syrup 15 Ml FEEDTUBE PRN PRN Hypoglycemia Simple Syrup 30 ml 06/22/21 14:36 Simple Syrup 15 Ml FEEDTUBE PRN PRN Hypoglycemia Sodium Bicarbonate 325 mg 06/22/21 14:36 Sodium Bicarbonate 325 Mg Tab FEEDTUBE PRN PRN For Clogged Feeding Tube Sodium Chloride 10 ml 06/07/21 22:00 06/24/21 09:33 Sodium Chloride 0.9% 10 Ml Flush Syringe IV 10 ml BID LEONOR Administration Sodium Chloride 10 ml 06/07/21 21:41 Sodium Chloride 0.9% 10 Ml Flush Syringe IV PRN PRN LINE FLUSH Zinc Sulfate 220 mg 06/22/21 22:00 06/24/21 09:32 Zinc Sulfate 220 Mg Cap PO 220 mg BID LEONOR Administration
[2021-06-24] MEDS ORDERED: SIMPLE SYRUP 15 ML FEEDTUBE PRN ×2 (14:18)
[2021-06-24] MEDS ORDERED: LIPASE 10,500/PROTEASE 25,000/AMYLASE 43,750 (UNITS) DR CAP FEEDTUBE PRN (14:18)
[2021-06-24] MEDS ORDERED: SODIUM BICARBONATE 325 MG TAB FEEDTUBE PRN (14:18)
[2021-06-24] MEDS ORDERED: ALBUMIN HUMAN 25% (25 GM/100 ML) INJ IV PRN (14:55)
[2021-06-24] MEDS ORDERED: SODIUM CHLORIDE 0.9% 100 ML IV PRN (15:00)
--- NOTE | 2021-06-24 16:16 | Progress Note ---
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 Neuro: Seizure, acute metabolic encephalopathy -Neurology consulted, appreciate recommendations -We will obtain CT head when patient is more hemodynamically stable -Witnessed seizure (06/23/2021). Keppra was a initially used but transitioned to Vimpat 100 mg twice daily in the setting of worsening renal function -Aspiration/seizure precautions -Sedated with fentanyl -RASS goal -2 -Bilateral soft wrist restraints in place for safety -Avoid delirium -Maintenance of sleep-wake cycle Cardio: ST, hypotension, CAD -Vasopressor support with Levophed and vasopressin -MAP goal greater than 65 -Blood pressure monitoring via A-line placed today -Hold antihypertensive at this time -Continue home statin -Continue midodrine Respiratory: Acute hypoxic respiratory failure, ARDS 2/2 COVID 19 PNA -CCM consulted, appreciate recommendations -S/p BiPAP and OptiFlow -06/22 intubated with 7.50 ETT at 23 at the lips -A.m. vent settings: AC rate 30, TV 450, PEEP 14, 100% FiO2 -See RT notes for titration -PEEP increased to 16 for persistent hypoxia -VAP bundle -Continue SPO2 monitoring -Serial ABGs and CXR -06/23 CXR and ABG reviewed GI: MO, protein calorie malnutrition -Nutrition consult for tube feeds -NGT placed -24 hour -366.4 -BR: Senokot -PPI -Free water flush 400 ml every 4 : CKD stage III, hyperkalemia, metabolic acidosis, hyperphosphatemia -Nephrology consulted, appreciate recommendations -Hyperkalemia treated with medical management -Continue sodium bicarb drip -Hemodialysis initiated status post placement of access; likely to have HD tomorrow -Renally dosed cefepime Endo: h/o insulin-dependent diabetes, hypothyroidism -Home levothyroxine transition to IV -Accu-Cheks every 6 -SSI -Goal glucose 140-180 while critically ill -Long-acting insulin, titrate as needed -Avoid hypoglycemia Heme: h/o DVT, coagulopathy of COVID, thrombocytopenia -Patient was on Eliquis which was discontinued and converted to therapeutic Lovenox -Therapeutic Lovenox converted to prophylaxis Lovenox renally dosed -Bilateral lower extremity Doppler ultrasound completed-> no acute DVT -SCDs to bilateral directions while in bed -Trend CBC -Transfuse for hemoglobin less than 7 ID: Sepsis, COVID-19 pneumonia -Infectious disease consulted, appreciate recommendations -S/p steroids for 10 days -Started on stress dose steroids Solu-Medrol 80 mg every 8 on 06/21 -Vitamin C/zinc/vitamin D -contact/droplet isolation precautions -Trend COVID-19 inflammatory markers every 2-3 days -S/p remdesivir -Currently on cefepime and vancomycin The high probability of a clinically significant, sudden or life threatening deterioration of the [neuro, cardio, respiratory, renal, ID] system(s) required my full and direct attention, intervention and personal management. The aggregate critical care time was [60] minutes. This time is in addition to time spent performing reported procedures but includes the following: [x] Data Review and interpretation [x] Patient assessment and monitoring of vital signs [x] Documentation [x] Medication orders and management Disposition Plan: Continue medical management Total Time Spent with Patient (Minutes): 60 History Interval history: No acute events overnight. Patient experiences a seizure for approximately 3 minutes yesterday and was initiated on Keppra. Hospitalist Physical - Constitutional Vitals: Temp Pulse Resp BP Pulse Ox 101.7 F H 105 H 30 H 100/46 96 06/24/21 12:00 06/24/21 15:23 06/24/21 14:10 06/24/21 14:10 06/24/21 15:23 General appearance: Present: no acute distress, well-nourished, obese - EENT Eyes: Present: PERRL, EOM intact ENT: clear oral mucosa - Neck Neck: Present: supple, normal ROM, other (Right IJ catheter) - Respiratory Respiratory effort: normal (On mechanical ventilation) - Cardiovascular Rhythm: regular Heart Sounds: Present: S1 & S2 - Extremities Extremities: no ischemia, pulses intact, pulses symmetrical, normal temperature, normal color Extremity abnormal: edema Peripheral Pulses: within normal limits - Abdominal General gastrointestinal: soft, non-tender, non-distended - Integumentary Integumentary: Present: clear, warm, dry - Psychiatric Psychiatric: other (Unable to assess given medical condition) - Neurologic Neurologic: other (Unable to assess given medical condition) - Allied Health Allied health notes reviewed: nursing HEART Score - HEART Score EKG: Non-specific Age: 45-65 Risk factors: 1-2 risk factors Troponin: Troponin T 0.021 ng/mL (0.00-0.029) 06/08/21 13:49 - Critical Actions Critical Actions: 0-3 pts:0.9-1.7%risk of adverse cardiac event.Candidate for discharge Results - Labs CBC & Chem 7: 06/24/21 04:55 06/24/21 04:55 Labs: Laboratory Last Values WBC 18.7 K/mm3 (4.5-11.0) H 06/24/21 04:55 RBC 4.23 M/mm3 (3.65-5.03) 06/24/21 04:55 Hgb 12.0 gm/dl (10.1-14.3) 06/24/21 04:55 Hct 37.8 % (30.3-42.9) D 06/24/21 04:55 MCV 89 fl (79-97) 06/24/21 04:55 MCH 28 pg (28-32) 06/24/21 04:55 MCHC 32 % (30-34) 06/24/21 04:55 RDW 16.8 % (13.2-15.2) H 06/24/21 04:55 Plt Count 42 K/mm3 (140-440) L 06/24/21 04:55 Lymph % (Auto) 8.5 % (13.4-35.0) L 06/12/21 08:31 [place] % (Auto) 2.5 % (0.0-7.3) 06/12/21 08:31 Eos % (Auto) 0.8 % (0.0-4.3) 06/12/21 08:31 Baso % (Auto) 0.1 % (0.0-1.8) 06/12/21 08:31 Lymph # (Auto) 1.1 K/mm3 (1.2-5.4) L 06/12/21 08:31 [place] # (Auto) 0.3 K/mm3 (0.0-0.8) 06/12/21 08:31 Eos # (Auto) 0.1 K/mm3 (0.0-0.4) 06/12/21 08:31 Baso # (Auto) 0.0 K/mm3 (0.0-0.1) 06/12/21 08:31 Add Manual Diff Complete 06/24/21 04:55 Total Counted 100 06/24/21 04:55 Seg Neutrophils % Admissions Director 06/24/21 04:55 Seg Neuts % (Manual) 68.0 % (40.0-70.0) 06/24/21 04:55 Band Neutrophils % 23.0 % 06/24/21 04:55 Lymphocytes % (Manual) 1.0 % (13.4-35.0) L 06/24/21 04:55 Monocytes % (Manual) 6.0 % (0.0-7.3) 06/23/21 04:42 Eosinophils % (Manual) 2.0 % (0.0-4.3) 06/23/21 04:42 Metamyelocytes % 2.0 % 06/10/21 23:14 Myelocytes % 8.0 % 06/24/21 04:55 Nucleated RBC % 1.0 % (0.0-0.9) H 06/24/21 04:55 Seg Neutrophils # 10.9 K/mm3 (1.8-7.7) H 06/12/21 08:31 Seg Neutrophils # Man 12.7 K/mm3 (1.8-7.7) H 06/24/21 04:55 Band Neutrophils # 4.3 K/mm3 06/24/21 04:55 Lymphocytes # (Manual) 0.2 K/mm3 (1.2-5.4) L 06/24/21 04:55 Abs React Lymphs (Man) 0.0 K/mm3 06/24/21 04:55 Monocytes # (Manual) 0.0 K/mm3 (0.0-0.8) 06/24/21 04:55 Eosinophils # (Manual) 0.0 K/mm3 (0.0-0.4) 06/24/21 04:55 Basophils # (Manual) 0.0 K/mm3 (0.0-0.1) 06/24/21 04:55 Metamyelocytes # 0.0 K/mm3 06/24/21 04:55 Myelocytes # 1.5 K/mm3 06/24/21 04:55 Promyelocytes # 0.0 K/mm3 06/24/21 04:55 Blast Cells # 0.0 K/mm3 06/24/21 04:55 WBC Morphology Not Reportable 06/24/21 04:55 Hypersegmented Neuts Not Reportable 06/24/21 04:55 Hyposegmented Neuts Not Reportable 06/24/21 04:55 Hypogranular Neuts Not Reportable 06/24/21 04:55 Smudge Cells Not Reportable 06/24/21 04:55 Toxic Granulation Not Reportable 06/24/21 04:55 Toxic Vacuolation Not Reportable 06/24/21 04:55 Dohle Bodies Not Reportable 06/24/21 04:55 Pelger-Huet Anomaly Not Reportable 06/24/21 04:55 Nba Rods Not Reportable 06/24/21 04:55 Platelet Estimate Consistent w auto 06/24/21 04:55 Clumped Platelets Not Reportable 06/24/21 04:55 Plt Clumps, EDTA Not Reportable 06/24/21 04:55 Large Platelets Not Reportable 06/24/21 04:55 Giant Platelets Not Reportable 06/24/21 04:55 Platelet Satelliting Not Reportable 06/24/21 04:55 Plt Morphology Comment Not Reportable 06/24/21 04:55 RBC Morphology Not Reportable 06/24/21 04:55 Dimorphic RBCs Not Reportable 06/24/21 04:55 Polychromasia Not Reportable 06/24/21 04:55 Hypochromasia Not Reportable 06/24/21 04:55 Poikilocytosis Not Reportable 06/24/21 04:55 Anisocytosis Not Reportable 06/24/21 04:55 Microcytosis Not Reportable 06/24/21 04:55 Macrocytosis Not Reportable 06/24/21 04:55 Spherocytes Not Reportable 06/24/21 04:55 Pappenheimer Bodies Not Reportable 06/24/21 04:55 Sickle Cells Not Reportable 06/24/21 04:55 Target Cells Not Reportable 06/24/21 04:55 Tear Drop Cells Not Reportable 06/24/21 04:55 Ovalocytes 1+ 06/24/21 04:55 Helmet Cells Not Reportable 06/24/21 04:55 [place] Bodies Not Reportable 06/24/21 04:55 Roff Rings Not Reportable 06/24/21 04:55 Barbie Cells Not Reportable 06/24/21 04:55 Bite Cells Not Reportable 06/24/21 04:55 Crenated Cell Not Reportable 06/24/21 04:55 Elliptocytes Not Reportable 06/24/21 04:55 Acanthocytes (Spur) Not Reportable 06/24/21 04:55 Rouleaux Not Reportable 06/24/21 04:55 Hemoglobin C Crystals Not Reportable 06/24/21 04:55 Schistocytes Not Reportable 06/24/21 04:55 Malaria parasites Not Reportable 06/24/21 04:55 Luis Bodies Not Reportable 06/24/21 04:55 Hem Pathologist Commnt No 06/24/21 04:55 PT 22.2 Sec. (12.2-14.9) H 06/24/21 04:55 INR 1.90 (0.87-1.13) H 06/24/21 04:55 APTT 43.8 Sec. (24.2-36.6) H 06/23/21 Unknown Fibrinogen 340 mg/dl (211-480) 06/23/21 Unknown D-Dimer 6308 ng/mlDDU (0-234) H 06/23/21 Unknown ABG pH 7.214 (7.320-7.450) L 06/23/21 21:12 POC ABG pCO2 60.2 mmHg (32.0-48.0) H 06/23/21 21:12 ABG pCO2 56.5 mm Hg 06/22/21 21:22 POC ABG pO2 78.9 mmHg (83-108) L 06/23/21 21:12 ABG pO2 61.7 mm Hg (80.0-90.0) L 06/22/21 21:22 POC ABG HCO3 23.8 06/23/21 21:12 ABG HCO3 22.5 mmol/L (20.0-26.0) 06/22/21 21:22 ABG O2 Saturation 94.2 (0-100) 06/23/21 21:12 ABG O2 Content 17.2 (0.0-44) 06/22/21 21:22 POC ABG Base Excess -5.0 06/23/21 21:12 ABG Base Excess -6.0 mmol/L (-2.0-3.0) L 10/06/21 21:22 ABG Hemoglobin 14.0 (12.0-17.5) 06/23/21 21:12 ABG Oxyhemoglobin 93.4 (94-98) L 06/23/21 21:12 ABG Carboxyhemoglobin 1.5 % (0.0-5.0) 06/22/21 21:22 ABG Methemoglobin 0.2 (0.0-1.5) 06/23/21 21:12 ABG Sodium 138.4 mmol/L (136.0-145.0) 06/23/21 21:12 ABG Potassium 6.3 mmol/L (3.40-4.50) H 06/23/21 21:12 ABG Chloride 105.0 mmol/L (98-107) 06/23/21 21:12 ABG Glucose 338 mg/dL (65-95) H 06/23/21 21:12 Oxyhemoglobin 85.4 % (95.0-99.0) L 06/22/21 21:22 Carboxyhemoglobin 0.7 (0.5-1.5) 06/23/21 21:12 FiO2 100 % 06/22/21 21:22 FiO2 % 100.0 06/23/21 21:12 Sodium 142 mmol/L (137-145) 06/24/21 04:55 Potassium 6.0 mmol/L (3.6-5.0) H 06/24/21 04:55 Chloride 106.4 mmol/L (98-107) 06/24/21 04:55 Carbon Dioxide 20 mmol/L (22-30) L 06/24/21 04:55 Anion Gap 22 mmol/L 06/24/21 04:55 BUN 86 mg/dL (7-17) H 06/24/21 04:55 Creatinine 5.4 mg/dL (0.6-1.2) H 06/24/21 04:55 Estimated GFR 10 ml/min 06/24/21 04:55 BUN/Creatinine Ratio 16 % 06/24/21 04:55 Glucose 309 mg/dL (65-100) H 06/24/21 04:55 POC Glucose 288 mg/dL (70-105) H 06/24/21 11:38 Hemoglobin A1c 9.5 % (4-6) H 06/07/21 19:11 Calcium 6.5 mg/dL (8.4-10.2) L 06/24/21 04:55 Phosphorus 7.60 mg/dL (2.5-4.5) H 06/24/21 04:55 Magnesium 2.00 mg/dL (1.7-2.3) 06/24/21 04:55 Ferritin 1094.0 ng/mL (10.0-200.0) H 06/23/21 Unknown Total Bilirubin 0.40 mg/dL (0.1-1.2) 06/24/21 04:55 AST 28 units/L (5-40) 06/24/21 04:55 ALT 28 units/L (7-56) 06/24/21 04:55 Alkaline Phosphatase 89 units/L (35-129) 06/24/21 04:55 Lactate Dehydrogenase 606 units/L (91-180) H 06/10/21 23:14 Troponin T 0.021 ng/mL (0.00-0.029) 06/08/21 13:49 C-Reactive Protein 4.40 mg/dL (0.00-1.30) H 06/23/21 04:42 Serum Total Protein 7.0 g/dL (6.1-8.1) 06/10/21 23:14 Total Protein 4.6 g/dL (6.3-8.2) L 06/24/21 04:55 Albumin 2.1 g/dL (3.9-5) L 06/24/21 04:55 Albumin/Globulin Ratio 0.8 % 06/24/21 04:55 Xnmpo-7-Wfnrstshs 0.5 g/dL (0.2-0.3) H 06/10/21 23:14 Efnig-4-Oanwxihtn 1.7 g/dL (0.5-0.9) H 06/10/21 23:14 Beta Globulins 0.6 g/dL (0.2-0.5) H 06/10/21 23:14 Gamma Globulins 1.3 g/dL (0.8-1.7) 06/10/21 23:14 Abnorm Protein Band 1 see below 06/10/21 23:14 PEP Interpretation see below H 06/10/21 23:14 Triglycerides 209 mg/dL (2-149) H 06/07/21 19:11 Cholesterol 165 mg/dL (50-199) 06/07/21 19:11 LDL Cholesterol Direct 79 mg/dL (50-130) 06/07/21 19:11 HDL Cholesterol 35 mg/dL (40-59) L 06/07/21 19:11 Cholesterol/HDL Ratio 4.71 % 06/07/21 19:11 Procalcitonin 0.91 ng/mL (<0.15) 06/07/21 19:11 Arterial Blood Glucose 338 mg/dL (65-95) H 06/23/21 21:12 Arterial Blood Ionized Calcium 4.1 mg/dL (4.6-5.3) L 06/23/21 21:12 Urine Color Sole (Yellow) 06/23/21 17:40 Urine Turbidity Cloudy (Clear) 06/23/21 17:40 Urine pH 6.0 (5.0-7.0) 06/23/21 17:40 Ur Specific [place] 1.017 (1.003-1.030) 06/23/21 17:40 Urine Protein >500 mg/dL (Negative) 06/23/21 17:40 Urine Glucose (UA) 50 mg/dL (Negative) 06/23/21 17:40 Urine Ketones Neg mg/dL (Negative) 06/23/21 17:40 Urine Blood Lg (Negative) 06/23/21 17:40 Urine Nitrite Neg (Negative) 06/23/21 17:40 Urine Bilirubin Neg (Negative) 06/23/21 17:40 Urine Urobilinogen < 2.0 mg/dL (<2.0) 06/23/21 17:40 Ur Leukocyte Esterase Mod (Negative) 06/23/21 17:40 Urine WBC (Auto) > 182.0 /HPF (0.0-6.0) H 06/23/21 17:40 Urine RBC (Auto) > 182.0 /HPF (0.0-6.0) 06/23/21 17:40 Urine WBC Clumps 3+ /HPF 06/23/21 17:40 Uric Acid Crystals 1+ 06/23/21 17:40 Urine Mucus Few /HPF 06/23/21 17:40 Random Vancomycin 10.7 ug/mL (0-40.0) 06/24/21 04:55 Coronavirus (PCR) Positive (Negative) A 06/08/21 08:30 Blood Type B POSITIVE 06/07/21 22:34 Antibody Screen Negative 06/07/21 22:34 Microbiology: Microbiology 06/23/21 14:28 Urine,[place] Urine Culture - Preliminary 06/23/21 08:27 Peripheral/Venous Blood Culture - Preliminary NO GROWTH AFTER 24 HOURS 06/23/21 08:27 Peripheral/Venous Blood Culture - Preliminary NO GROWTH AFTER 24 HOURS Roland/IV: Voiding Method Indwelling Catheter Active Medications - Current Medications Current Medications: Generic Name Dose Route Start Last Admin Trade Name Freq PRN Reason Stop Dose Admin Acetaminophen 650 mg 06/07/21 21:41 06/24/21 11:45 Acetaminophen 325 Mg Tab PO 650 mg Q4H PRN Administration Pain MILD(1-3)/Fever >100.5/MARTÍNEZ Albumin Human 25 gm 06/24/21 14:55 Albumin Human 25% (25 Gm/100 Ml) Inj IV KORINA PRN Hypotension Albuterol 2 mg 06/23/21 09:00 Albuterol 2.5 Mg/3 Ml Nebu IH Q4HRT PRN Shortness Of Breath Lipase/Protease/Amylase 1 each 06/24/21 14:18 Lipase 10,500/Protease 25,000/Amylase 43,750 (Units) Dr Barahona FEEDTUBE PRN PRN For Clogged Feeding Tube Ascorbic Acid 500 mg 06/22/21 22:00 06/24/21 09:33 Ascorbic Acid 500 Mg Tab PO 500 mg BID LEONOR Administration Atorvastatin Calcium 10 mg 06/08/21 10:00 06/24/21 09:33 Atorvastatin 10 Mg Tab PO 10 mg DAILY LEONOR Administration Dextrose 50 ml 06/08/21 12:04 06/20/21 12:16 Dextrose 50% In Water (25gm) 50 Ml Syringe IV 50 ml Q30MIN PRN Administration Hypoglycemia Protocol Docusate Sodium 100 mg 06/23/21 09:00 Docusate Sodium 100 Mg/10 Ml Oral Liqd PO BID PRN Constipation Enoxaparin Sodium 40 mg 06/23/21 11:00 06/24/21 09:34 Enoxaparin 40 Mg/0.4 Ml Inj SUB-Q 40 mg DAILY LEONOR Administration Protocol Famotidine 10 mg 06/22/21 22:00 06/24/21 09:33 Famotidine 20 Mg/2 Ml Inj IV 10 mg BID LEONOR Administration Fentanyl 50 mcg 06/22/21 13:07 06/22/21 21:09 Fentanyl 100 Mcg/2 Ml Inj IV 50 mcg Q10MIN PRN Administration ANALGESIA Hydrophilic Ointment 1 applic 06/22/21 13:07 Lip Therapy Vaseline TP Q2HR PRN Dry Lips Fentanyl Citrate 2,000 mcg in 100 mls @ 8.2 mls/hr 06/22/21 14:00 06/24/21 10:18 Fentanyl Drip Premix IV 2 mcg/kg/hr TITR LEONOR 16.4 mls/hr Titration Protocol 1 MCG/KG/HR NORepinephrine/NS 8 MG-250 ML 8 mg in 250 mls @ 3.75 mls/hr 06/22/21 15:00 06/24/21 10:19 Norepinephrine/Ns 8 Mg-250 Ml (Double Conc) IV 10 mcg/min TITRATE LEONOR 18.75 mls/hr Titration Protocol 2 MCG/MIN Cefepime HCl 2 gm in 100 mls @ 200 mls/hr 06/23/21 08:00 06/24/21 09:35 Cefepime/Ns 2 Gm/100 Ml IV Infused Q24H LEONOR Infusion Protocol Vasopressin 20 unit/ Sodium 101 mls @ 9.09 mls/hr 06/23/21 09:00 06/24/21 07:21 Chloride IV 0.03 units/min TITR LEONOR 9.09 mls/hr Administration Protocol 0.03 UNITS/MIN Sodium Chloride 500 mls @ 1 mls/hr 06/23/21 11:19 Nacl 0.9% 500 Ml IV DIRECT PRN ARTERIAL LINE FLUSH Sodium Bicarbonate 150 meq/ 1,150 mls @ 75 mls/hr 06/23/21 13:00 06/24/21 06:46 Sterile Water IV 06/25/21 04:19 75 mls/hr DIRECT LEONOR Administration Lacosamide 100 mg/ Sodium 110 mls @ 100 mls/hr 06/23/21 15:00 06/24/21 14:38 Chloride IV 100 mls/hr Q12H LEONOR Administration Vancomycin HCl 1,500 mg/ 530 mls @ 333.333 mls/hr 06/24/21 20:00 Sodium Chloride IV 06/24/21 21:35 ONCE ONE Sodium Chloride 100 mls @ 999 mls/hr 06/24/21 15:00 Nacl 0.9% IV KORINA PRN Hypotension Sodium Chloride 100 mls @ 999 mls/hr 06/25/21 06:00 Nacl 0.9% IV KORINA PRN Hypotension Insulin Human Isoph/Insulin Regular 20 unit 06/23/21 22:00 06/24/21 09:35 Insulin Nph/Regular 70/30 Inj SUB-Q 20 unit BID LEONOR Administration Insulin Human Regular 0 units 06/22/21 18:00 06/24/21 11:45 Insulin Regular, Human 100 Units/1 Ml SUB-Q 6 units Q6HR LEONOR Administration Protocol Levothyroxine Sodium 137.5 mcg 06/23/21 06:00 06/24/21 06:08 Levothyroxine 100 Mcg Inj IV 137.5 mcg DAILY@0600 LEONOR Administration Methylprednisolone Sodium Succinate 100 mg 06/21/21 16:00 06/24/21 08:38 Methylprednisolone Sod Succinate 125 Mg/2 Ml Inj IV 100 mg Q8H LEONOR Administration Midodrine 10 mg 06/22/21 15:00 06/24/21 14:20 Midodrine 5 Mg Tab PO 10 mg Q8H LEONOR Administration Multi-Ingred Cream/Lotion/Oil/Oint 1 applic 06/22/21 13:07 Mineral Oil/Petrolatum, White Ophth Oint 3.5 Gm OU Q4HR PRN Dry Eye(s) Ondansetron HCl 4 mg 06/07/21 21:41 06/20/21 22:15 Ondansetron 4 Mg/2 Ml Inj IV 4 mg Q8H PRN Administration Nausea And Vomiting Senna/Docusate Sodium 1 tab 06/22/21 22:00 06/24/21 09:33 Sennosides/Docusate Sodium 8.6/50 Mg Tab FEEDTUBE 1 tab BID LEONOR Administration Simple Syrup 15 ml 06/24/21 14:18 Simple Syrup 15 Ml FEEDTUBE PRN PRN Hypoglycemia Simple Syrup 30 ml 06/24/21 14:18 Simple Syrup 15 Ml FEEDTUBE PRN PRN Hypoglycemia Sodium Bicarbonate 325 mg 06/24/21 14:18 Sodium Bicarbonate 325 Mg Tab FEEDTUBE PRN PRN For Clogged Feeding Tube Sodium Chloride 10 ml 06/07/21 22:00 06/24/21 09:33 Sodium Chloride 0.9% 10 Ml Flush Syringe IV 10 ml BID LEONOR Administration Sodium Chloride 10 ml 06/07/21 21:41 Sodium Chloride 0.9% 10 Ml Flush Syringe IV PRN PRN LINE FLUSH Zinc Sulfate 220 mg 06/22/21 22:00 06/24/21 09:32 Zinc Sulfate 220 Mg Cap PO 220 mg BID LEONOR Administration Nutrition/Malnutrition Assess - Dietary Evaluation Nutrition/Malnutrition Findings: Nutrition Notes Start: 06/08/21 10:56 Freq: Status: Active Protocol: Document 06/24/21 14:03 GB (Rec: 06/24/21 14:18 GB [id number]) Nutrition Notes Initial or Follow up Reassessment Current Diagnosis Acute Kidney Injury,Diabetes Other Pertinent Diagnosis Pneumonia/COVID-19, hypothyroidism. Current Diet Tube feeding - Nepro Labs/Tests 06/24: K 6, BUN 86 decline, creatinine 5.4 decline, glucose 309 decline (poc showing improvement), Ca 6.5, P 7.6. Pertinent Medications Vit C, D5 PRN, fentanyl citrate, Height 5 ft 11 in Weight 164 kg [place] Body Weight (kg) 70.45 BMI 50.4 Weight change and time frame Weight is stable x2 weeks Weight Status Morbidly Obese Subjective/Other Information MD would like TF to be Nepro. Okay to change. RD updating orders. Percent of energy/protein needs met: Prescribed Tube feeding diet will provide 75-100% for energy/protein needs. Burn Absent Trauma Absent GI Symptoms None Difficulty In Swallowing,Chewing Food Allergy Yes Current % PO Other Minimum of two criteria No physical signs of malnutrition #1 Nutrition Diagnosis Inadequate energy intake Comments: Transient poor acceptance of food and neglible PO intake as reported in Nurse notes Etiology COVID=19/pneumonia As Evidenced by Signs and Symptoms Fair tolerance to food, intake of meals between 0-25%. Diagnosis Progress(for reassessment Continues documentation) Is patient on ventilator? Yes Is Patient Ambulatory and/or Out of Bed No REE-([facility]-confined to bed) 2771.148 Kcal/Kg value to use for calculation 13 Approximate Energy Requirements Using 2132 kcal/Kg Calculation Used for Recommendations Kcal/kg Additional Notes Protein: up to 0.7 g/Kg/day @ 164kg; 114 g/day Fluids: 1.0 ml/Kcal, or as per MD. Nutrition Intervention Change Diet Order: NPO continue Nutrition Support: Nepro @ 50ml/hr Flush; 150ml every 4 hrs. or as per MD. Kcal 2,160 Protein (gm) 97 Fat (gm) 115 Fluid (mL) 872 Goal #1 Maintain body weight within +/ -3% of actual BWt during LOS. Goal #2 Tolerate TF at goal rate of 50ml/hr during LOS Goal #3 Nutritional related labs to improve toward acceptable ranges during LOS. Follow-Up By: 06/28/21 Additional Comments Nepro at goal 50ml/hr. Flush 150/4hr. Total fluids daily 1772ml. - Attestation Statement I have reviewed and agreed w/ Malnutrition eval & tx plan: Yes
[2021-06-24 17:09] LABS: Hepatitis C Virus Antibody Non-Reactive (NonReactive)
[2021-06-24 17:12] LABS: Hepatitis B Surface Antigen Nonreactive (Negative)
[2021-06-25] MEDS: INSULIN NPH/REGULAR 70/30 INJ SUB-Q SCH ×3 (00:35→17:47)
[2021-06-25] MEDS: MIDODRINE 5 MG TAB PO SCH ×3 (00:44→17:47)
[2021-06-25] MEDS: methylPREDNISolone Sod Succinate 125 MG/2 ML INJ IV SCH ×3 (00:44→17:31)
[2021-06-25] MEDS: INSULIN REGULAR, HUMAN 100 UNITS/1 ML SUB-Q SCH ×4 (00:45→17:47)
--- NOTE | 2021-06-25 03:16 | XRay Report ---
CHEST 1 VIEW 06/25/2021 2:42 AM INDICATION / CLINICAL INFORMATION: follow up respiratory failure. COMPARISON: 06/24/2021 FINDINGS: SUPPORT DEVICES: Lines and tubes again project in expected position HEART / MEDIASTINUM: No significant abnormality. LUNGS / PLEURA: Moderate bilateral airspace disease characteristic for pneumonia No pneumothorax. ADDITIONAL FINDINGS: No significant additional findings. IMPRESSION: 1. Stable bilateral pneumonia Signer Name: Yuval Rubin MD Signed: 06/25/2021 3:12 AM Workstation Name: [id number]
[2021-06-25] MEDS: LACOSAMIDE 100 MG in SODIUM CHLORIDE 0.9% 100 ML IV SCH ×2 (04:34→17:32)
[2021-06-25] MEDS: fentaNYL DRIP Premix 2,000 MCG/100 ML BAG IV SCH ×4 (04:49→22:58)
[2021-06-25] MEDS: VASOPRESSIN 20 UNIT in SODIUM CHLORIDE 0.9% 100 ML IV SCH (05:22)
[2021-06-25] MEDS ORDERED: SODIUM CHLORIDE 0.9% 100 ML IV PRN ×2 (06:00→14:13)
[2021-06-25] MEDS: LEVOTHYROXINE 100 MCG INJ IV SCH (06:51)
[2021-06-25] MEDS: CEFEPIME/NS 2 GM/100 ML 2 GM/100 ML BAG IV SCH (08:41)
[2021-06-25] MEDS ORDERED: INSULIN NPH, HUMAN 100 UNIT/1 ML SUB-Q ONE (09:00)
[2021-06-25 09:25] LABS: Hematocrit 34.3 % (30.3-42.9); Hemoglobin 11.1 gm/dl (10.1-14.3); Mean Corpuscular HGB Conc 33 % (30-34); Mean Corpuscular Volume 88 fl (79-97); Red Blood Count 3.91 M/mm3 (3.65-5.03); Red Cell Distribution Width 16.4 % (13.2-15.2)
[2021-06-25 09:31] LABS: Platelet Count 41 K/mm3 (140-440)
[2021-06-25 09:35] LABS: INR 1.68 (0.87-1.13)
[2021-06-25 09:48] LABS: Albumin 2.5 g/dL (3.9-5); Calcium 7.4 mg/dL (8.4-10.2)
--- NOTE | 2021-06-25 10:41 | Progress Note ---
Assessment and Plan COVID-19 breakthrough infection COVID-19 pneumonia Acute kidney injury possibly 2/2 prerenal/ATN, hypotension on underlying CKD Acute hypoxic respiratory failure Insulin-dependent type 2 diabetes- uncontrolled Elevated troponin Hypertension-controlled Hypothyroidism Protein calorie malnutrition Hypernatremia Plan Initiated on HD yesterday, HD#2 today S/p Right IJ Vas catheter placement on 06/24/21 First HD treatment today mainly for clearance HD prescription adjusted to decreased dialysate temp, higher calcium bath, sodium modeling, and PRN albumin to assist with hemodynamic stability during HD Assess need for HD on daily basis On levophed and vasopressin drips Renal US was negative for hydronephrosis On sodium bicarbonate drip Renally dose medications Strict I&O's daily Subjective Date of service: 06/25/21 Principal diagnosis: ARDS; Pneumonia; COVID-19 virus infection; TREMAINE; DM II; Morbid obesity Interval history: HD today, NAD. Objective - Exam Narrative Exam: GE: Intubated HEENT: Normocephalic Neck: Supple Chest:Coarse BS BL CVS: RRR Abd: BS+ Ext: No cce Neuro:Sedated - Vital Signs Vital signs: Vital Signs - 12hr 06/24/21 06/24/21 06/24/21 22:50 23:00 23:10 Temperature Pulse Rate 116 H 112 H 93 H Pulse Rate [ From Monitor] Respiratory 30 H 29 H 30 H Rate Blood Pressure 138/77 138/77 137/72 O2 Sat by Pulse 95 96 98 Oximetry 06/24/21 06/24/21 06/24/21 23:16 23:20 23:30 Temperature Pulse Rate 95 H 93 H 92 H Pulse Rate [ From Monitor] Respiratory 30 H 30 H 30 H Rate Blood Pressure 137/72 137/72 137/72 O2 Sat by Pulse 98 98 98 Oximetry 06/24/21 06/24/21 06/24/21 23:40 23:50 23:54 Temperature 98.4 F Pulse Rate 95 H 93 H Pulse Rate [ From Monitor] Respiratory 30 H 30 H Rate Blood Pressure 137/72 137/72 O2 Sat by Pulse 98 98 Oximetry 06/25/21 06/25/21 06/25/21 00:00 00:10 00:13 Temperature Pulse Rate 95 H 96 H 95 H Pulse Rate [ 112 H From Monitor] Respiratory 30 H 30 H Rate Blood Pressure 137/72 137/72 145/62 O2 Sat by Pulse 96 98 98 Oximetry 06/25/21 06/25/21 06/25/21 00:20 00:30 00:40 Temperature Pulse Rate 93 H 91 H 92 H Pulse Rate [ From Monitor] Respiratory 30 H 30 H 30 H Rate Blood Pressure 137/72 137/72 137/72 O2 Sat by Pulse 98 98 98 Oximetry 06/25/21 06/25/21 06/25/21 00:50 01:00 01:10 Temperature Pulse Rate 111 H 113 H 112 H Pulse Rate [ From Monitor] Respiratory 30 H 30 H 30 H Rate Blood Pressure 137/72 137/72 137/72 O2 Sat by Pulse 98 98 98 Oximetry 06/25/21 06/25/21 06/25/21 01:20 01:30 01:40 Temperature Pulse Rate 94 H 111 H 113 H Pulse Rate [ From Monitor] Respiratory 30 H 30 H 30 H Rate Blood Pressure 137/72 137/72 137/72 O2 Sat by Pulse 98 98 99 Oximetry 06/25/21 06/25/21 06/25/21 01:50 02:00 02:10 Temperature Pulse Rate 90 99 H 111 H Pulse Rate [ From Monitor] Respiratory 30 H 30 H 30 H Rate Blood Pressure 137/72 137/72 137/72 O2 Sat by Pulse 98 98 98 Oximetry 06/25/21 06/25/21 06/25/21 02:20 02:30 02:40 Temperature Pulse Rate 111 H 110 H 107 H Pulse Rate [ From Monitor] Respiratory 30 H 30 H 20 Rate Blood Pressure 137/72 137/72 137/72 O2 Sat by Pulse 98 98 99 Oximetry 06/25/21 06/25/21 06/25/21 02:50 03:00 03:10 Temperature 97.9 F Pulse Rate 98 H 91 H 93 H Pulse Rate [ From Monitor] Respiratory 30 H 30 H 30 H Rate Blood Pressure 137/72 137/72 137/72 O2 Sat by Pulse 98 98 98 Oximetry 06/25/21 06/25/21 06/25/21 03:20 03:30 03:40 Temperature Pulse Rate 91 H 111 H 92 H Pulse Rate [ From Monitor] Respiratory 30 H 30 H 30 H Rate Blood Pressure 137/72 137/72 137/72 O2 Sat by Pulse 98 98 98 Oximetry 06/25/21 06/25/21 06/25/21 03:50 04:00 04:10 Temperature Pulse Rate 111 H 109 H 92 H Pulse Rate [ 112 H From Monitor] Respiratory 30 H 30 H 30 H Rate Blood Pressure 137/72 137/72 137/72 O2 Sat by Pulse 99 98 98 Oximetry 06/25/21 06/25/21 06/25/21 04:17 04:20 04:30 Temperature Pulse Rate 88 99 H 90 Pulse Rate [ From Monitor] Respiratory 30 H 30 H Rate Blood Pressure 157/64 137/72 137/72 O2 Sat by Pulse 98 98 99 Oximetry 06/25/21 06/25/21 06/25/21 04:40 04:50 05:00 Temperature Pulse Rate 93 H 97 H 94 H Pulse Rate [ From Monitor] Respiratory 30 H 30 H 30 H Rate Blood Pressure 137/72 137/72 137/72 O2 Sat by Pulse 98 99 99 Oximetry 06/25/21 06/25/21 06/25/21 05:10 05:20 05:30 Temperature Pulse Rate 91 H 112 H 91 H Pulse Rate [ From Monitor] Respiratory 30 H 30 H 30 H Rate Blood Pressure 137/72 137/72 137/72 O2 Sat by Pulse 99 99 98 Oximetry 06/25/21 06/25/21 06/25/21 05:40 05:50 06:00 Temperature Pulse Rate 91 H 90 90 Pulse Rate [ From Monitor] Respiratory 30 H 30 H 30 H Rate Blood Pressure 137/72 137/72 137/72 O2 Sat by Pulse 98 98 99 Oximetry 06/25/21 06/25/21 07:56 09:00 Temperature 98.2 F Pulse Rate 98 H Pulse Rate [ From Monitor] Respiratory Rate Blood Pressure 138/75 O2 Sat by Pulse 97 Oximetry - Lab 06/25/21 09:05 06/25/21 09:05 Most recent lab results ABG pH 7.214 (7.320-7.450) L 06/23/21 21:12 ABG pCO2 56.5 mm Hg 06/22/21 21:22 ABG pO2 61.7 mm Hg (80.0-90.0) L 06/22/21 21:22 ABG HCO3 22.5 mmol/L (20.0-26.0) 06/22/21 21:22 ABG O2 Saturation 94.2 (0-100) 06/23/21 21:12 Calcium 7.4 mg/dL (8.4-10.2) L 06/25/21 09:05 Phosphorus 8.00 mg/dL (2.5-4.5) H 06/25/21 09:05 Magnesium 2.10 mg/dL (1.7-2.3) 06/25/21 09:05 Medications & Allergies - Medications Allergies/Adverse Reactions: Allergies latex Allergy (Verified 03/19/19 17:03) Unknown shellfish derived Allergy (Verified 03/19/19 17:03) Anaphylaxis strawberry Allergy (Verified 03/19/19 17:03) Anaphylaxis tomato Allergy (Verified 03/19/19 17:03) Anaphylaxis nuts Allergy (Uncoded 03/19/19 17:03) Anaphylaxis Home Medications: Home Medications Medication Instructions Recorded Confirmed Last Taken Type Albuterol Sulfate [Ventolin HFA] 2 puff IH Q4H PRN 01/29/14 06/11/21 02/01/15 History Levothyroxine (Nf) [Synthroid (Nf)] 275 mcg PO QAM 01/29/14 06/11/21 02/01/15 History Fluticasone/Salmeterol [Advair 1 each IH PRN PRN 01/26/15 06/11/21 02/02/15 10:00 History Diskus 250-50 mcg] Apixaban [Eliquis starter pack] 5 mg PO BID 09/13/19 06/11/21 Unknown History Insulin Aspart Prot/Insuln Asp 45 unit SUB-Q QAM 09/13/19 06/11/21 Unknown History [Novolog Mix 70-30 Flexpen] Insulin Glargine,Hum.rec.anlog 25 unit SQ HS 09/13/19 06/11/21 Unknown History [Basaglar Kwikpen U-100] Lovastatin [Altoprev] 20 mg PO DAILY 09/13/19 06/11/21 Unknown History Docusate Sodium [Colace CAP] 100 mg PO BID PRN #30 capsule 09/17/19 06/11/21 Unknown Rx Loratadine/Pseudoephedrine 1 each PO Q24HR #10 tablet 09/17/19 06/11/21 Unknown Rx [Claritin-D 24HR] Ondansetron [Zofran Odt] 4 mg PO Q8HR #20 tab.rapdis 09/17/19 06/11/21 Unknown Rx carvediloL [Coreg] 3.125 mg PO BID #60 tablet 09/17/19 06/11/21 Unknown Rx hydrALAZINE [Apresoline TAB] 25 mg PO Q8HR #90 tablet 09/17/19 06/11/21 Unknown Rx Active Medications: Generic Name Dose Route Start Last Admin Trade Name Freq PRN Reason Stop Dose Admin Acetaminophen 650 mg 06/07/21 21:41 06/24/21 11:45 Acetaminophen 325 Mg Tab PO 650 mg Q4H PRN Administration Pain MILD(1-3)/Fever >100.5/MARTÍNEZ Albumin Human 25 gm 06/24/21 14:55 Albumin Human 25% (25 Gm/100 Ml) Inj IV KORINA PRN Hypotension Albuterol 2 mg 06/23/21 09:00 Albuterol 2.5 Mg/3 Ml Nebu IH Q4HRT PRN Shortness Of Breath Lipase/Protease/Amylase 1 each 06/24/21 14:18 Lipase 10,500/Protease 25,000/Amylase 43,750 (Units) Dr Barahona FEEDTUBE PRN PRN For Clogged Feeding Tube Ascorbic Acid 500 mg 06/22/21 22:00 06/24/21 21:05 Ascorbic Acid 500 Mg Tab PO 500 mg BID LEONOR Administration Atorvastatin Calcium 10 mg 06/08/21 10:00 06/24/21 09:33 Atorvastatin 10 Mg Tab PO 10 mg DAILY LEONOR Administration Dextrose 50 ml 06/08/21 12:04 06/20/21 12:16 Dextrose 50% In Water (25gm) 50 Ml Syringe IV 50 ml Q30MIN PRN Administration Hypoglycemia Protocol Docusate Sodium 100 mg 06/23/21 09:00 Docusate Sodium 100 Mg/10 Ml Oral Liqd PO BID PRN Constipation Enoxaparin Sodium 40 mg 06/23/21 11:00 06/24/21 09:34 Enoxaparin 40 Mg/0.4 Ml Inj SUB-Q 40 mg DAILY LEONOR Administration Protocol Famotidine 10 mg 06/22/21 22:00 06/24/21 21:05 Famotidine 20 Mg/2 Ml Inj IV 10 mg BID LEONOR Administration Fentanyl 50 mcg 06/22/21 13:07 06/22/21 21:09 Fentanyl 100 Mcg/2 Ml Inj IV 50 mcg Q10MIN PRN Administration ANALGESIA Hydrophilic Ointment 1 applic 06/22/21 13:07 Lip Therapy Vaseline TP Q2HR PRN Dry Lips Fentanyl Citrate 2,000 mcg in 100 mls @ 8.2 mls/hr 06/22/21 14:00 06/25/21 04:49 Fentanyl Drip Premix IV 2 mcg/kg/hr TITR LEONOR 16.4 mls/hr Administration Protocol 1 MCG/KG/HR NORepinephrine/NS 8 MG-250 ML 8 mg in 250 mls @ 3.75 mls/hr 06/22/21 15:00 06/25/21 09:11 Norepinephrine/Ns 8 Mg-250 Ml (Double Conc) IV 3 mcg/min TITRATE LEONOR 5.625 mls/hr Titration Protocol 2 MCG/MIN Cefepime HCl 2 gm in 100 mls @ 200 mls/hr 06/23/21 08:00 06/25/21 08:41 Cefepime/Ns 2 Gm/100 Ml IV 200 mls/hr Q24H LEONOR Administration Protocol Vasopressin 20 unit/ Sodium 101 mls @ 9.09 mls/hr 06/23/21 09:00 06/25/21 05:22 Chloride IV 0.03 units/min TITR LEONOR 9.09 mls/hr Administration Protocol 0.03 UNITS/MIN Sodium Chloride 500 mls @ 1 mls/hr 06/23/21 11:19 Nacl 0.9% 500 Ml IV DIRECT PRN ARTERIAL LINE FLUSH Lacosamide 100 mg/ Sodium 110 mls @ 100 mls/hr 06/23/21 15:00 06/25/21 04:34 Chloride IV 100 mls/hr Q12H LEONOR Administration Sodium Chloride 100 mls @ 999 mls/hr 06/25/21 06:00 Nacl 0.9% IV KORINA PRN Hypotension Insulin Human Isoph/Insulin Regular 35 unit 06/25/21 17:00 Insulin Nph/Regular 70/30 Inj SUB-Q BIDDIAB LEONOR Insulin Human Regular 0 units 06/22/21 18:00 06/25/21 06:48 Insulin Regular, Human 100 Units/1 Ml SUB-Q 6 units Q6HR LEONOR Administration Protocol Levothyroxine Sodium 137.5 mcg 06/23/21 06:00 06/25/21 06:51 Levothyroxine 100 Mcg Inj IV 137.5 mcg DAILY@0600 [facility] Administration Methylprednisolone Sodium Succinate 100 mg 06/21/21 16:00 06/25/21 08:41 Methylprednisolone Sod Succinate 125 Mg/2 Ml Inj IV 100 mg Q8H LEONOR Administration Midodrine 10 mg 06/22/21 15:00 06/25/21 08:40 Midodrine 5 Mg Tab PO 10 mg Q8H LEONOR Administration Multi-Ingred Cream/Lotion/Oil/Oint 1 applic 06/22/21 13:07 Mineral Oil/Petrolatum, White Ophth Oint 3.5 Gm OU Q4HR PRN Dry Eye(s) Ondansetron HCl 4 mg 06/07/21 21:41 06/20/21 22:15 Ondansetron 4 Mg/2 Ml Inj IV 4 mg Q8H PRN Administration Nausea And Vomiting Senna/Docusate Sodium 1 tab 06/22/21 22:00 06/24/21 21:05 Sennosides/Docusate Sodium 8.6/50 Mg Tab FEEDTUBE 1 tab BID LEONOR Administration Simple Syrup 15 ml 06/24/21 14:18 Simple Syrup 15 Ml FEEDTUBE PRN PRN Hypoglycemia Simple Syrup 30 ml 06/24/21 14:18 Simple Syrup 15 Ml FEEDTUBE PRN PRN Hypoglycemia Sodium Bicarbonate 325 mg 06/24/21 14:18 Sodium Bicarbonate 325 Mg Tab FEEDTUBE PRN PRN For Clogged Feeding Tube Sodium Chloride 10 ml 06/07/21 22:00 06/24/21 21:06 Sodium Chloride 0.9% 10 Ml Flush Syringe IV 10 ml BID LEONOR Administration Sodium Chloride 10 ml 06/07/21 21:41 Sodium Chloride 0.9% 10 Ml Flush Syringe IV PRN PRN LINE FLUSH Zinc Sulfate 220 mg 06/22/21 22:00 06/24/21 21:05 Zinc Sulfate 220 Mg Cap PO 220 mg BID LEONOR Administration
[2021-06-25] MEDS: SENNOSIDES/DOCUSATE SODIUM 8.6/50 MG TAB FEEDTUBE SCH ×2 (10:55→22:56)
[2021-06-25] MEDS: ZINC SULFATE 220 MG CAP PO SCH ×2 (10:55→22:57)
[2021-06-25] MEDS: ASCORBIC ACID 500 MG TAB PO SCH ×2 (10:55→22:57)
[2021-06-25] MEDS: ENOXAPARIN 40 MG/0.4 ML INJ SUB-Q SCH (10:55)
[2021-06-25] MEDS: FAMOTIDINE 20 MG/2 ML INJ IV SCH ×2 (10:55→22:56)
[2021-06-25] MEDS ORDERED: CALCIUM GLUCONATE 2,000 MG in SODIUM CHLORIDE 0.9% 100 ML IV ONE (11:37)
--- NOTE | 2021-06-25 11:45 | Progress Note ---
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 Neuro: Seizure, acute metabolic encephalopathy -Neurology consulted, appreciate recommendations -We will obtain CT head when patient is more hemodynamically stable -Witnessed seizure (06/23/2021). Continue Vimpat 100 mg twice daily in the setting of worsening renal function -Aspiration/seizure precautions -Sedated with fentanyl with RASS goal of -2 Cardio: ST, hypotension, CAD -Vasopressor support with Levophed and vasopressin; MAP goal >65 -Hold antihypertensive at this time in the setting of pressors -Continue home statin -Continue midodrine Respiratory: Acute hypoxic respiratory failure, ARDS 2/2 COVID 19 PNA -CCM consulted, appreciate recommendations -06/22 intubated with 7.50 ETT at 23 at the lips -Serial ABGs and CXR GI: MO, protein calorie malnutrition -Nutrition consult for tube feeds with free water flushes of 400 mL every 4 hours -BR: Senokot -Continue PPI prophylaxis : CKD stage III, hyperkalemia, metabolic acidosis, hyperphosphatemia -Nephrology consulted, appreciate recommendations -Hemodialysis initiated status post placement of access; last received on 06/23/2021 -Continue sodium bicarb drip -Renally dosed medications and avoid nephrotoxic medications Endo: h/o insulin-dependent diabetes, hypothyroidism -Continue IV levothyroxine 200 mcg -Accu-Cheks every 6 hours; continue moderate SSI -Increased NPH to 35 units twice daily for better glucose control -Goal glucose 140-180 while critically ill Heme: h/o DVT, coagulopathy of COVID, thrombocytopenia -Patient was on Eliquis which was discontinued and converted to therapeutic Lovenox -Therapeutic Lovenox converted to prophylaxis Lovenox renally dosed -Bilateral lower extremity Doppler ultrasound completed-> no acute DVT -SCDs to bilateral directions while in bed -Trend CBC daily -Transfuse for hemoglobin less than 7 or if patient becomes symptomatic ID: Sepsis, COVID-19 pneumonia -Infectious disease consulted, appreciate recommendations -S/p steroids for 10 days; S/p remdesivir -Started on stress dose steroids Solu-Medrol 80 mg every 8 on 06/21 -Vitamin C/zinc/vitamin D -contact/droplet isolation precautions -Trend COVID-19 inflammatory markers every 2-3 days -Currently on cefepime and vancomycin The high probability of a clinically significant, sudden or life threatening deterioration of the [neuro, cardio, respiratory, renal, ID] system(s) required my full and direct attention, intervention and personal management. The aggregate critical care time was [60] minutes. This time is in addition to time spent performing reported procedures but includes the following: [x] Data Review and interpretation [x] Patient assessment and monitoring of vital signs [x] Documentation [x] Medication orders and management Disposition Plan: Continue medical management Total Time Spent with Patient (Minutes): 60 History Interval history: No acute events overnight. Hospitalist Physical - Constitutional Vitals: Temp Pulse Resp BP Pulse Ox 98.2 F 98 H 30 H 138/75 97 06/25/21 07:56 06/25/21 09:00 06/25/21 06:00 06/25/21 09:00 06/25/21 09:00 General appearance: Present: no acute distress, well-nourished, obese - EENT Eyes: Present: PERRL, EOM intact ENT: other (Unable to assess given patient's medical condition) - Neck Neck: Present: supple, normal ROM Details: Central line in right IJ - Respiratory Respiratory effort: normal (Currently intubated) - Cardiovascular Rhythm: regular Heart Sounds: Present: S1 & S2 - Extremities Extremities: no ischemia, pulses intact, pulses symmetrical, No edema, normal temperature, normal color Peripheral Pulses: within normal limits - Abdominal General gastrointestinal: soft, non-distended, normal bowel sounds - Integumentary Integumentary: Present: clear, warm, dry - Psychiatric Psychiatric: other (Unable to assess given medical condition) - Neurologic Neurologic: other (Unable to assess given medical condition) - Allied Health Allied health notes reviewed: nursing HEART Score - HEART Score EKG: Non-specific Age: 45-65 Risk factors: 1-2 risk factors Troponin: Troponin T 0.021 ng/mL (0.00-0.029) 06/08/21 13:49 - Critical Actions Critical Actions: 0-3 pts:0.9-1.7%risk of adverse cardiac event.Candidate for discharge Results - Labs CBC & Chem 7: 06/25/21 09:05 06/25/21 09:05 Labs: Laboratory Last Values WBC 14.5 K/mm3 (4.5-11.0) H 06/25/21 09:05 RBC 3.91 M/mm3 (3.65-5.03) 06/25/21 09:05 Hgb 11.1 gm/dl (10.1-14.3) 06/25/21 09:05 Hct 34.3 % (30.3-42.9) 06/25/21 09:05 MCV 88 fl (79-97) 06/25/21 09:05 MCH 29 pg (28-32) 06/25/21 09:05 MCHC 33 % (30-34) 06/25/21 09:05 RDW 16.4 % (13.2-15.2) H 06/25/21 09:05 Plt Count 41 K/mm3 (140-440) L 06/25/21 09:05 Lymph % (Auto) 8.5 % (13.4-35.0) L 06/12/21 08:31 [place]anan % (Auto) 2.5 % (0.0-7.3) 06/12/21 08:31 Eos % (Auto) 0.8 % (0.0-4.3) 06/12/21 08:31 Baso % (Auto) 0.1 % (0.0-1.8) 06/12/21 08:31 Lymph # (Auto) 1.1 K/mm3 (1.2-5.4) L 06/12/21 08:31 [place] # (Auto) 0.3 K/mm3 (0.0-0.8) 06/12/21 08:31 Eos # (Auto) 0.1 K/mm3 (0.0-0.4) 06/12/21 08:31 Baso # (Auto) 0.0 K/mm3 (0.0-0.1) 06/12/21 08:31 Add Manual Diff Complete 06/24/21 04:55 Total Counted 100 06/24/21 04:55 Seg Neutrophils % Employment Services Director 06/24/21 04:55 Seg Neuts % (Manual) 68.0 % (40.0-70.0) 06/24/21 04:55 Band Neutrophils % 23.0 % 06/24/21 04:55 Lymphocytes % (Manual) 1.0 % (13.4-35.0) L 06/24/21 04:55 Monocytes % (Manual) 6.0 % (0.0-7.3) 06/23/21 04:42 Eosinophils % (Manual) 2.0 % (0.0-4.3) 06/23/21 04:42 Metamyelocytes % 2.0 % 06/10/21 23:14 Myelocytes % 8.0 % 06/24/21 04:55 Nucleated RBC % 1.0 % (0.0-0.9) H 06/24/21 04:55 Seg Neutrophils # 10.9 K/mm3 (1.8-7.7) H 06/12/21 08:31 Seg Neutrophils # Man 12.7 K/mm3 (1.8-7.7) H 06/24/21 04:55 Band Neutrophils # 4.3 K/mm3 06/24/21 04:55 Lymphocytes # (Manual) 0.2 K/mm3 (1.2-5.4) L 06/24/21 04:55 Abs React Lymphs (Man) 0.0 K/mm3 06/24/21 04:55 Monocytes # (Manual) 0.0 K/mm3 (0.0-0.8) 06/24/21 04:55 Eosinophils # (Manual) 0.0 K/mm3 (0.0-0.4) 06/24/21 04:55 Basophils # (Manual) 0.0 K/mm3 (0.0-0.1) 06/24/21 04:55 Metamyelocytes # 0.0 K/mm3 06/24/21 04:55 Myelocytes # 1.5 K/mm3 06/24/21 04:55 Promyelocytes # 0.0 K/mm3 06/24/21 04:55 Blast Cells # 0.0 K/mm3 06/24/21 04:55 WBC Morphology Not Reportable 06/24/21 04:55 Hypersegmented Neuts Not Reportable 06/24/21 04:55 Hyposegmented Neuts Not Reportable 06/24/21 04:55 Hypogranular Neuts Not Reportable 06/24/21 04:55 Smudge Cells Not Reportable 06/24/21 04:55 Toxic Granulation Not Reportable 06/24/21 04:55 Toxic Vacuolation Not Reportable 06/24/21 04:55 Dohle Bodies Not Reportable 06/24/21 04:55 Pelger-Huet Anomaly Not Reportable 06/24/21 04:55 Nba Rods Not Reportable 06/24/21 04:55 Platelet Estimate Consistent w auto 06/24/21 04:55 Clumped Platelets Not Reportable 06/24/21 04:55 Plt Clumps, EDTA Not Reportable 06/24/21 04:55 Large Platelets Not Reportable 06/24/21 04:55 Giant Platelets Not Reportable 06/24/21 04:55 Platelet Satelliting Not Reportable 06/24/21 04:55 Plt Morphology Comment Not Reportable 06/24/21 04:55 RBC Morphology Not Reportable 06/24/21 04:55 Dimorphic RBCs Not Reportable 06/24/21 04:55 Polychromasia Not Reportable 06/24/21 04:55 Hypochromasia Not Reportable 06/24/21 04:55 Poikilocytosis Not Reportable 06/24/21 04:55 Anisocytosis Not Reportable 06/24/21 04:55 Microcytosis Not Reportable 06/24/21 04:55 Macrocytosis Not Reportable 06/24/21 04:55 Spherocytes Not Reportable 06/24/21 04:55 Pappenheimer Bodies Not Reportable 06/24/21 04:55 Sickle Cells Not Reportable 06/24/21 04:55 Target Cells Not Reportable 06/24/21 04:55 Tear Drop Cells Not Reportable 06/24/21 04:55 Ovalocytes 1+ 06/24/21 04:55 Helmet Cells Not Reportable 06/24/21 04:55 [place] Bodies Not Reportable 06/24/21 04:55 [place] Rings Not Reportable 06/24/21 04:55 Barbie Cells Not Reportable 06/24/21 04:55 Bite Cells Not Reportable 06/24/21 04:55 Crenated Cell Not Reportable 06/24/21 04:55 Elliptocytes Not Reportable 06/24/21 04:55 Acanthocytes (Spur) Not Reportable 06/24/21 04:55 Rouleaux Not Reportable 06/24/21 04:55 Hemoglobin C Crystals Not Reportable 06/24/21 04:55 Schistocytes Not Reportable 06/24/21 04:55 Malaria parasites Not Reportable 06/24/21 04:55 Luis Bodies Not Reportable 06/24/21 04:55 Hem Pathologist Commnt No 06/24/21 04:55 PT 20.2 Sec. (12.2-14.9) H 06/25/21 09:05 INR 1.68 (0.87-1.13) H 06/25/21 09:05 APTT 43.8 Sec. (24.2-36.6) H 06/23/21 Unknown Fibrinogen 340 mg/dl (211-480) 06/23/21 Unknown D-Dimer 6308 ng/mlDDU (0-234) H 06/23/21 Unknown ABG pH 7.304 (7.320-7.450) L 06/24/21 09:00 POC ABG pCO2 53.2 mmHg (32.0-48.0) H 06/24/21 09:00 ABG pCO2 56.5 mm Hg 06/22/21 21:22 POC ABG pO2 98.6 mmHg (83-108) 06/24/21 09:00 ABG pO2 61.7 mm Hg (80.0-90.0) L 06/22/21 21:22 POC ABG HCO3 25.8 06/24/21 09:00 ABG HCO3 22.5 mmol/L (20.0-26.0) 06/22/21 21:22 ABG O2 Saturation 97.0 (0-100) 06/24/21 09:00 ABG O2 Content 17.2 (0.0-44) 06/22/21 21:22 POC ABG Base Excess -1.0 06/24/21 09:00 ABG Base Excess -6.0 mmol/L (-2.0-3.0) L 06/22/21 21:22 ABG Hemoglobin 10.9 (12.0-17.5) L 06/24/21 09:00 ABG Oxyhemoglobin 96.3 (94-98) 06/24/21 09:00 ABG Carboxyhemoglobin 1.5 % (0.0-5.0) 06/22/21 21:22 ABG Methemoglobin 0.3 (0.0-1.5) 06/24/21 09:00 ABG Sodium 133.9 mmol/L (136.0-145.0) L 06/24/21 09:00 ABG Potassium 5.8 mmol/L (3.40-4.50) H 06/24/21 09:00 ABG Chloride 99.0 mmol/L (98-107) 06/24/21 09:00 ABG Glucose 380 mg/dL (65-95) H 06/24/21 09:00 Oxyhemoglobin 85.4 % (95.0-99.0) L 06/22/21:22 Carboxyhemoglobin 0.4 (0.5-1.5) L 06/24/21 09:00 FiO2 100 % 06/22/21: FiO2 % 100.0 06/24/21 09:00 Sodium 139 mmol/L (137-145) 06/25/21 09:05 Potassium 5.5 mmol/L (3.6-5.0) H 06/25/21 09:05 Chloride 97.2 mmol/L (98-107) L 06/25/21 09:05 Carbon Dioxide 25 mmol/L (22-30) 06/25/21 09:05 Anion Gap 22 mmol/L 06/25/21 09:05 BUN 88 mg/dL (7-17) H 06/25/21 09:05 Creatinine 5.6 mg/dL (0.6-1.2) H 06/25/21 09:05 Estimated GFR 9 ml/min 06/25/21 09:05 BUN/Creatinine Ratio 16 % 06/25/21 09:05 Glucose 370 mg/dL (65-100) H 06/25/21 09:05 POC Glucose 283 mg/dL (70-105) H 06/25/21 05:12 Hemoglobin A1c 9.5 % (4-6) H 06/07/21 19:11 Calcium 7.4 mg/dL (8.4-10.2) L 06/25/21 09:05 Phosphorus 8.00 mg/dL (2.5-4.5) H 06/25/21 09:05 Magnesium 2.10 mg/dL (1.7-2.3) 06/25/21 09:05 Ferritin 1094.0 ng/mL (10.0-200.0) H 06/23/21 Unknown Total Bilirubin 0.40 mg/dL (0.1-1.2) 06/25/21 09:05 AST 17 units/L (5-40) 06/25/21 09:05 ALT 25 units/L (7-56) 06/25/21 09:05 Alkaline Phosphatase 84 units/L (35-129) 06/25/21 09:05 Lactate Dehydrogenase 606 units/L (91-180) H 06/10/21 23:14 Troponin T 0.021 ng/mL (0.00-0.029) 06/08/21 13:49 C-Reactive Protein 4.40 mg/dL (0.00-1.30) H 06/23/21 04:42 Serum Total Protein 7.0 g/dL (6.1-8.1) 06/10/21 23:14 Total Protein 5.1 g/dL (6.3-8.2) L 06/25/21 09:05 Albumin 2.5 g/dL (3.9-5) L 06/25/21 09:05 Albumin/Globulin Ratio 1.0 % 06/25/21 09:05 Fvjfy-0-Qkreivqdd 0.5 g/dL (0.2-0.3) H 06/10/21 23:14 Crnkv-7-Dxekshbdr 1.7 g/dL (0.5-0.9) H 06/10/21 23:14 Beta Globulins 0.6 g/dL (0.2-0.5) H 06/10/21 23:14 Gamma Globulins 1.3 g/dL (0.8-1.7) 06/10/21 23:14 Abnorm Protein Band 1 see below 06/10/21 23:14 PEP Interpretation see below H 06/10/21 23:14 Triglycerides 209 mg/dL (2-149) H 06/07/21 19:11 Cholesterol 165 mg/dL (50-199) 06/07/21 19:11 LDL Cholesterol Direct 79 mg/dL (50-130) 06/07/21 19:11 HDL Cholesterol 35 mg/dL (40-59) L 06/07/21 19:11 Cholesterol/HDL Ratio 4.71 % 06/07/21 19:11 Procalcitonin 0.91 ng/mL (<0.15) 06/07/21 19:11 Arterial Blood Glucose 380 mg/dL (65-95) H 06/24/21 09:00 Arterial Blood Ionized Calcium 4.1 mg/dL (4.6-5.3) L 06/23/21 21:12 Urine Color Sole (Yellow) 06/23/21 17:40 Urine Turbidity Cloudy (Clear) 06/23/21 17:40 Urine pH 6.0 (5.0-7.0) 06/23/21 17:40 Ur Specific [place] 1.017 (1.003-1.030) 06/23/21 17:40 Urine Protein >500 mg/dL (Negative) 06/23/21 17:40 Urine Glucose (UA) 50 mg/dL (Negative) 06/23/21 17:40 Urine Ketones Neg mg/dL (Negative) 06/23/21 17:40 Urine Blood Lg (Negative) 06/23/21 17:40 Urine Nitrite Neg (Negative) 06/23/21 17:40 Urine Bilirubin Neg (Negative) 06/23/21 17:40 Urine Urobilinogen < 2.0 mg/dL (<2.0) 06/23/21 17:40 Ur Leukocyte Esterase Mod (Negative) 06/23/21 17:40 Urine WBC (Auto) > 182.0 /HPF (0.0-6.0) H 06/23/21 17:40 Urine RBC (Auto) > 182.0 /HPF (0.0-6.0) 06/23/21 17:40 Urine WBC Clumps 3+ /HPF 06/23/21 17:40 Uric Acid Crystals 1+ 06/23/21 17:40 Urine Mucus Few /HPF 06/23/21 17:40 Random Vancomycin 10.7 ug/mL (0-40.0) 06/24/21 04:55 Coronavirus (PCR) Positive (Negative) A 06/08/21 08:30 Hepatitis A IgM Ab Non-reactive (NonReactive) 06/24/21 15:57 Hep Bs Antigen Nonreactive (Negative) 06/24/21 15:57 Hep B Core IgM Ab Non-reactive (NonReactive) 06/24/21 15:57 Hepatitis C Antibody Non-reactive (NonReactive) 06/24/21 15:57 Blood Type B POSITIVE 06/07/21 22:34 Antibody Screen Negative 06/07/21 22:34 Microbiology: Microbiology 06/23/21 14:28 Urine,[place] Urine Culture - Final 06/23/21 08:27 Peripheral/Venous Blood Culture - Preliminary NO GROWTH AFTER 48 HOURS 06/23/21 08:27 Peripheral/Venous Blood Culture - Preliminary NO GROWTH AFTER 48 HOURS 06/22/21 13:07 Tracheal Aspirate Sputum Culture - Preliminary Roland/IV: Voiding Method Indwelling Catheter Active Medications - Current Medications Current Medications: Generic Name Dose Route Start Last Admin Trade Name Freq PRN Reason Stop Dose Admin Acetaminophen 650 mg 06/07/21 21:41 06/24/21 11:45 Acetaminophen 325 Mg Tab PO 650 mg Q4H PRN Administration Pain MILD(1-3)/Fever >100.5/MARTÍNEZ Albumin Human 25 gm 06/24/21 14:55 Albumin Human 25% (25 Gm/100 Ml) Inj IV KORINA PRN Hypotension Albuterol 2 mg 06/23/21 09:00 Albuterol 2.5 Mg/3 Ml Nebu IH Q4HRT PRN Shortness Of Breath Lipase/Protease/Amylase 1 each 06/24/21 14:18 Lipase 10,500/Protease 25,000/Amylase 43,750 (Units) Dr Jun FEEDTUBE PRN PRN For Clogged Feeding Tube Ascorbic Acid 500 mg 06/22/21 22:00 06/25/21 10:55 Ascorbic Acid 500 Mg Tab PO 500 mg BID LEONOR Administration Atorvastatin Calcium 10 mg 06/08/21 10:00 06/25/21 10:55 Atorvastatin 10 Mg Tab PO 10 mg DAILY LEONOR Administration Dextrose 50 ml 06/08/21 12:04 06/20/21 12:16 Dextrose 50% In Water (25gm) 50 Ml Syringe IV 50 ml Q30MIN PRN Administration Hypoglycemia Protocol Docusate Sodium 100 mg 06/23/21 09:00 Docusate Sodium 100 Mg/10 Ml Oral Liqd PO BID PRN Constipation Enoxaparin Sodium 40 mg 06/23/21 11:00 06/25/21 10:55 Enoxaparin 40 Mg/0.4 Ml Inj SUB-Q 40 mg DAILY LEONOR Administration Protocol Famotidine 10 mg 06/22/21 22:00 06/25/21 10:55 Famotidine 20 Mg/2 Ml Inj IV 10 mg BID LEONOR Administration Fentanyl 50 mcg 06/22/21 13:07 06/22/21 21:09 Fentanyl 100 Mcg/2 Ml Inj IV 50 mcg Q10MIN PRN Administration ANALGESIA Hydrophilic Ointment 1 applic 06/22/21 13:07 Lip Therapy Vaseline TP Q2HR PRN Dry Lips Fentanyl Citrate 2,000 mcg in 100 mls @ 8.2 mls/hr 06/22/21 14:00 06/25/21 11:24 Fentanyl Drip Premix IV 2 mcg/kg/hr TITR LEONOR 16.4 mls/hr Administration Protocol 1 MCG/KG/HR NORepinephrine/NS 8 MG-250 ML 8 mg in 250 mls @ 3.75 mls/hr 06/22/21 15:00 06/25/21 09:11 Norepinephrine/Ns 8 Mg-250 Ml (Double Conc) IV 3 mcg/min TITRATE LEONOR 5.625 mls/hr Titration Protocol 2 MCG/MIN Cefepime HCl 2 gm in 100 mls @ 200 mls/hr 06/23/21 08:00 06/25/21 08:41 Cefepime/Ns 2 Gm/100 Ml IV 200 mls/hr Q24H LEONOR Administration Protocol Vasopressin 20 unit/ Sodium 101 mls @ 9.09 mls/hr 06/23/21 09:00 06/25/21 05:22 Chloride IV 0.03 units/min TITR LEONOR 9.09 mls/hr Administration Protocol 0.03 UNITS/MIN Sodium Chloride 500 mls @ 1 mls/hr 06/23/21 11:19 Nacl 0.9% 500 Ml IV DIRECT PRN ARTERIAL LINE FLUSH Lacosamide 100 mg/ Sodium 110 mls @ 100 mls/hr 06/23/21 15:00 06/25/21 04:34 Chloride IV 100 mls/hr Q12H LEONOR Administration Sodium Chloride 100 mls @ 999 mls/hr 06/25/21 06:00 Nacl 0.9% IV KORINA PRN Hypotension Calcium Gluconate 2,000 mg/ 120 mls @ 660 mls/hr 06/25/21 11:37 Sodium Chloride IV 06/25/21 11:47 ONCE ONE Insulin Human Isoph/Insulin Regular 35 unit 06/25/21 17:00 Insulin Nph/Regular 70/30 Inj SUB-Q BIDDIAB [facility] Insulin Human Regular 0 units 06/22/21 18:00 06/25/21 06:48 Insulin Regular, Human 100 Units/1 Ml SUB-Q 6 units Q6HR [facility] Administration Protocol Levothyroxine Sodium 137.5 mcg 06/23/21 06:00 06/25/21 06:51 Levothyroxine 100 Mcg Inj IV 137.5 mcg DAILY@0600 LEONOR Administration Methylprednisolone Sodium Succinate 100 mg 06/21/21 16:00 06/25/21 08:41 Methylprednisolone Sod Succinate 125 Mg/2 Ml Inj IV 100 mg Q8H LEONOR Administration Midodrine 10 mg 06/22/21 15:00 06/25/21 08:40 Midodrine 5 Mg Tab PO 10 mg Q8H LEONOR Administration Multi-Ingred Cream/Lotion/Oil/Oint 1 applic 06/22/21 13:07 Mineral Oil/Petrolatum, White Ophth Oint 3.5 Gm OU Q4HR PRN Dry Eye(s) Ondansetron HCl 4 mg 06/07/21 21:41 06/20/21 22:15 Ondansetron 4 Mg/2 Ml Inj IV 4 mg Q8H PRN Administration Nausea And Vomiting Senna/Docusate Sodium 1 tab 06/22/21 22:00 06/25/21 10:55 Sennosides/Docusate Sodium 8.6/50 Mg Tab FEEDTUBE 1 tab BID LEONOR Administration Simple Syrup 15 ml 06/24/21 14:18 Simple Syrup 15 Ml FEEDTUBE PRN PRN Hypoglycemia Simple Syrup 30 ml 06/24/21 14:18 Simple Syrup 15 Ml FEEDTUBE PRN PRN Hypoglycemia Sodium Bicarbonate 325 mg 06/24/21 14:18 Sodium Bicarbonate 325 Mg Tab FEEDTUBE PRN PRN For Clogged Feeding Tube Sodium Chloride 10 ml 06/07/21 22:00 06/25/21 10:56 Sodium Chloride 0.9% 10 Ml Flush Syringe IV 10 ml BID LEONOR Administration Sodium Chloride 10 ml 06/07/21 21:41 Sodium Chloride 0.9% 10 Ml Flush Syringe IV PRN PRN LINE FLUSH Zinc Sulfate 220 mg 06/22/21 22:00 06/25/21 10:55 Zinc Sulfate 220 Mg Cap PO 220 mg BID LEONOR Administration Nutrition/Malnutrition Assess - Dietary Evaluation Nutrition/Malnutrition Findings: Nutrition Notes Start: 06/08/21 10:56 Freq: Status: Active Protocol: Document 06/24/21 14:03 GB (Rec: 06/24/21 14:18 GB [id number]) Nutrition Notes Initial or Follow up Reassessment Current Diagnosis Acute Kidney Injury,Diabetes Other Pertinent Diagnosis Pneumonia/COVID-19, hypothyroidism. Current Diet Tube feeding - Nepro Labs/Tests 06/24: K 6, BUN 86 decline, creatinine 5.4 decline, glucose 309 decline (poc showing improvement), Ca 6.5, P 7.6. Pertinent Medications Vit C, D5 PRN, fentanyl citrate, Height 5 ft 11 in Weight 164 kg [place] Body Weight (kg) 70.45 BMI 50.4 Weight change and time frame Weight is stable x2 weeks Weight Status Morbidly Obese Subjective/Other Information MD would like TF to be Nepro. Okay to change. RD updating orders. Percent of energy/protein needs met: Prescribed Tube feeding diet will provide 75-100% for energy/protein needs. Burn Absent Trauma Absent GI Symptoms None Difficulty In Swallowing,Chewing Food Allergy Yes Current % PO Other Minimum of two criteria No physical signs of malnutrition #1 Nutrition Diagnosis Inadequate energy intake Comments: Transient poor acceptance of food and neglible PO intake as reported in Nurse notes Etiology COVID=19/pneumonia As Evidenced by Signs and Symptoms Fair tolerance to food, intake of meals between 0-25%. Diagnosis Progress(for reassessment Continues documentation) Is patient on ventilator? Yes Is Patient Ambulatory and/or Out of Bed No REE-([facility]-confined to bed) 2771.148 Kcal/Kg value to use for calculation 13 Approximate Energy Requirements Using 2132 kcal/Kg Calculation Used for Recommendations Kcal/kg Additional Notes Protein: up to 0.7 g/Kg/day @ 164kg; 114 g/day Fluids: 1.0 ml/Kcal, or as per MD. Nutrition Intervention Change Diet Order: NPO continue Nutrition Support: Nepro @ 50ml/hr Flush; 150ml every 4 hrs. or as per MD. Kcal 2,160 Protein (gm) 97 Fat (gm) 115 Fluid (mL) 872 Goal #1 Maintain body weight within +/ -3% of actual BWt during LOS. Goal #2 Tolerate TF at goal rate of 50ml/hr during LOS Goal #3 Nutritional related labs to improve toward acceptable ranges during LOS. Follow-Up By: 06/28/21 Additional Comments Nepro at goal 50ml/hr. Flush 150/4hr. Total fluids daily 1772ml.
--- NOTE | 2021-06-25 14:52 | Progress Note ---
Assessment and Plan Acute hypoxemic respiratory failure (ARDS) Coronavirus infection Pneumonia due to COVID-19 virus Acute kidney injury superimposed on CKD Hypertension Diabetes mellitus type 2, insulin dependent Hypothyroidism Morbid obesity - stopped Lovenox re: thrombocytopenia - HIT assay sent - begin Arixtra 2.5 mg SQ caily (adjust per pharmacy) - continue HD/UF per nephrology prescription for toxin and volume clearance - continue care as below otherwise; - CT brain once more stable - continue Keppra 500 mg IV q12h - follow EEG - neurology evaluation ongoing - continue to wean vaspressors for target MAP > 65 mmHg - continue daily SAT and SBT assessment as tolerated - continue to wean supplemental oxygen for target O2 sat's > 90% acutely - VAP bundle addressed - continue lung protective strategies - continue bronchodilators with pulmonary hygiene per RT - wean per pulmonary driven protocols otherwise - azotemia per nephrology recommendations - avoid nephrotoxins, renally dose all medications - continue to avoid benzodiazepine's, reduce the possibility of delirium - anti-infective's per ID rec's - prn analgesia per CPOT score - Maintenance of sleep-wake cycle, avoid delirium - enteral nutritional support at goal rate as tolerated - G.I. & VTE prophylaxis - PT/OT/ROM exercises - mobility protocols for pressure ulcer prophylaxis - Monitor hemodynamics closely - continue other care per attending / other consultants - discharge planning ongoing concurrently COVID SPECIFIC INTERVENTIONS - Remdesivir as per ID/Pulmonary developed protocols (not a candidate) - continue systemic steroids for severe COVID-19 infection empirically (will taper to 60 mg IV q8h) - follow repeat COVID tests results - zinc and vitamin C supplementation - Monitor inflammatory markers per facility protocol - ferritin, Ddimer, CRP - therapeutic anticoagulation per system Protocol based on d-dimer and clinical considerations - Continue contact and airborne isolation .... Re-evaluate in am & prn CONDITION: CRITICAL PROGNOSIS: GUARDED CODE STATUS: FULL CODE The high probability of a clinically significant, sudden or life-threatening deterioration of the [respiratory, cardiovascular, renal & neurologic] system(s) required my full and direct attention, intervention and personal management. The aggregate critical care time was [35] minutes without overlap. Time includes spent on; [x] Data Review and interpretation [x] Patient assessment and monitoring of vital signs [x] Documentation [x] Medication orders and management Subjective Date of service: 06/25/21 Principal diagnosis: ARDS; Pneumonia; COVID-19 virus infection; TREMAINE; DM II; Morbid obesity Interval history: Patient is seen today for: Acute hypoxemic respiratory failure (ARDS); Pneumonia; COVID-19 virus infection; TREMAINE on CKD; DM II; Morbid obesity Seen and examined at bedside; 24hour events reviewed; nursing and respiratory care staff consulted; no adverse overnight events reported to me; resting in bed; tolerated dialysis yesterday; on HD now; target 500 ml's UF; remains on Levophed and vasopressin but weaning down; no gross bleeding; no emesis or overt aspiration; thrombocytopenia is worse Objective Vital Signs - 12hr 06/25/21 06/25/21 06/25/21 03:00 03:10 03:20 Temperature Pulse Rate 91 H 93 H 91 H Pulse Rate [ From Monitor] Respiratory 30 H 30 H 30 H Rate Blood Pressure 137/72 137/72 137/72 O2 Sat by Pulse 98 98 98 Oximetry O2 Sat by Pulse Oximetry [ Anterior Bilateral Throughout] 06/25/21 06/25/21 06/25/21 03:30 03:40 03:50 Temperature Pulse Rate 111 H 92 H 111 H Pulse Rate [ From Monitor] Respiratory 30 H 30 H 30 H Rate Blood Pressure 137/72 137/72 137/72 O2 Sat by Pulse 98 98 99 Oximetry O2 Sat by Pulse Oximetry [ Anterior Bilateral Throughout] 06/25/21 06/25/21 06/25/21 04:00 04:10 04:17 Temperature Pulse Rate 109 H 92 H 88 Pulse Rate [ 112 H From Monitor] Respiratory 30 H 30 H Rate Blood Pressure 137/72 137/72 157/64 O2 Sat by Pulse 98 98 98 Oximetry O2 Sat by Pulse Oximetry [ Anterior Bilateral Throughout] 06/25/21 06/25/21 06/25/21 04:20 04:30 04:40 Temperature Pulse Rate 99 H 90 93 H Pulse Rate [ From Monitor] Respiratory 30 H 30 H 30 H Rate Blood Pressure 137/72 137/72 137/72 O2 Sat by Pulse 98 99 98 Oximetry O2 Sat by Pulse Oximetry [ Anterior Bilateral Throughout] 06/25/21 06/25/21 06/25/21 04:50 05:00 05:10 Temperature Pulse Rate 97 H 94 H 91 H Pulse Rate [ From Monitor] Respiratory 30 H 30 H 30 H Rate Blood Pressure 137/72 137/72 137/72 O2 Sat by Pulse 99 99 99 Oximetry O2 Sat by Pulse Oximetry [ Anterior Bilateral Throughout] 06/25/21 06/25/21 06/25/21 05:20 05:30 05:40 Temperature Pulse Rate 112 H 91 H 91 H Pulse Rate [ From Monitor] Respiratory 30 H 30 H 30 H Rate Blood Pressure 137/72 137/72 137/72 O2 Sat by Pulse 99 98 98 Oximetry O2 Sat by Pulse Oximetry [ Anterior Bilateral Throughout] 06/25/21 06/25/21 06/25/21 05:50 06:00 06:10 Temperature Pulse Rate 90 90 89 Pulse Rate [ From Monitor] Respiratory 30 H 30 H 30 H Rate Blood Pressure 137/72 137/72 137/72 O2 Sat by Pulse 98 99 99 Oximetry O2 Sat by Pulse Oximetry [ Anterior Bilateral Throughout] 06/25/21 06/25/21 06/25/21 06:20 06:30 06:40 Temperature Pulse Rate 87 93 H 87 Pulse Rate [ From Monitor] Respiratory 30 H 30 H 30 H Rate Blood Pressure 137/72 137/72 137/72 O2 Sat by Pulse 98 99 99 Oximetry O2 Sat by Pulse Oximetry [ Anterior Bilateral Throughout] 06/25/21 06/25/21 06/25/21 06:50 07:00 07:10 Temperature 97.0 F L Pulse Rate 87 93 H 94 H Pulse Rate [ From Monitor] Respiratory 30 H 30 H 30 H Rate Blood Pressure 137/72 136/72 137/72 O2 Sat by Pulse 98 99 99 Oximetry O2 Sat by Pulse 100 Oximetry [ Anterior Bilateral Throughout] 06/25/21 06/25/21 06/25/21 07:20 07:30 07:40 Temperature Pulse Rate 85 90 90 Pulse Rate [ From Monitor] Respiratory 30 H 30 H 30 H Rate Blood Pressure 137/72 137/72 137/72 O2 Sat by Pulse 98 99 98 Oximetry O2 Sat by Pulse Oximetry [ Anterior Bilateral Throughout] 06/25/21 06/25/21 06/25/21 07:50 07:56 08:00 Temperature 98.2 F Pulse Rate 93 H 90 Pulse Rate [ From Monitor] Respiratory 30 H 30 H Rate Blood Pressure 137/72 137/72 O2 Sat by Pulse 99 99 Oximetry O2 Sat by Pulse Oximetry [ Anterior Bilateral Throughout] 06/25/21 06/25/21 06/25/21 08:10 08:20 08:30 Temperature Pulse Rate 90 89 88 Pulse Rate [ From Monitor] Respiratory 30 H 30 H 30 H Rate Blood Pressure 137/72 137/72 137/72 O2 Sat by Pulse 99 99 99 Oximetry O2 Sat by Pulse Oximetry [ Anterior Bilateral Throughout] 06/25/21 06/25/21 06/25/21 08:40 08:50 09:00 Temperature Pulse Rate 96 H 94 H 93 H Pulse Rate [ From Monitor] Respiratory 30 H 30 H 30 H Rate Blood Pressure 167/77 167/77 167/77 O2 Sat by Pulse 99 99 99 Oximetry O2 Sat by Pulse Oximetry [ Anterior Bilateral Throughout] 06/25/21 06/25/21 06/25/21 09:10 09:20 09:30 Temperature Pulse Rate 95 H 96 H 128 H Pulse Rate [ From Monitor] Respiratory 30 H 30 H 29 H Rate Blood Pressure 138/75 167/77 167/77 O2 Sat by Pulse 99 98 97 Oximetry O2 Sat by Pulse Oximetry [ Anterior Bilateral Throughout] 06/25/21 06/25/21 06/25/21 09:40 09:50 10:00 Temperature Pulse Rate 97 H 98 H 132 H Pulse Rate [ From Monitor] Respiratory 30 H 30 H 30 H Rate Blood Pressure 167/77 138/75 138/75 O2 Sat by Pulse 97 97 96 Oximetry O2 Sat by Pulse Oximetry [ Anterior Bilateral Throughout] 06/25/21 06/25/21 06/25/21 10:10 10:20 10:30 Temperature Pulse Rate 92 H 90 89 Pulse Rate [ From Monitor] Respiratory 30 H 30 H 30 H Rate Blood Pressure 138/75 138/75 138/75 O2 Sat by Pulse 97 96 96 Oximetry O2 Sat by Pulse Oximetry [ Anterior Bilateral Throughout] 06/25/21 06/25/21 06/25/21 10:40 10:50 11:00 Temperature Pulse Rate 89 92 H 93 H Pulse Rate [ From Monitor] Respiratory 30 H 30 H 30 H Rate Blood Pressure 138/75 138/75 138/75 O2 Sat by Pulse 97 97 97 Oximetry O2 Sat by Pulse Oximetry [ Anterior Bilateral Throughout] 06/25/21 06/25/21 06/25/21 11:10 11:20 11:30 Temperature Pulse Rate 86 95 H 94 H Pulse Rate [ From Monitor] Respiratory 30 H 30 H 30 H Rate Blood Pressure 138/75 138/75 138/75 O2 Sat by Pulse 95 95 95 Oximetry O2 Sat by Pulse Oximetry [ Anterior Bilateral Throughout] 06/25/21 06/25/21 06/25/21 11:40 11:50 12:00 Temperature 99.2 F Pulse Rate 88 87 Pulse Rate [ From Monitor] Respiratory 30 H 30 H Rate Blood Pressure 138/75 138/75 O2 Sat by Pulse 95 95 Oximetry O2 Sat by Pulse Oximetry [ Anterior Bilateral Throughout] 06/25/21 06/25/21 06/25/21 13:10 13:15 13:45 Temperature Pulse Rate 100 H 98 H 101 H Pulse Rate [ From Monitor] Respiratory Rate Blood Pressure 138/67 115/64 115/73 O2 Sat by Pulse 94 Oximetry O2 Sat by Pulse Oximetry [ Anterior Bilateral Throughout] 06/25/21 06/25/21 06/25/21 13:50 14:00 14:15 Temperature Pulse Rate 98 H 100 H 106 H Pulse Rate [ From Monitor] Respiratory Rate Blood Pressure 115/56 99/69 115/77 O2 Sat by Pulse Oximetry O2 Sat by Pulse Oximetry [ Anterior Bilateral Throughout] 06/25/21 06/25/21 14:30 14:45 Temperature Pulse Rate 108 H 107 H Pulse Rate [ From Monitor] Respiratory Rate Blood Pressure 107/71 107/73 O2 Sat by Pulse Oximetry O2 Sat by Pulse Oximetry [ Anterior Bilateral Throughout] Constitutional: no acute distress (sedated), other (Morbidly Obese female with mildly increased work of breathing on MVS) Eyes: non-icteric ENT: oropharynx moist Neck: supple, no lymphadenopathy Effort: mildly labored Ascultation: Bilateral: diminished breath sounds, rhonchi Percussion: Bilateral: not dull Cardiovascular: regular rate and rhythm Gastrointestinal: normoactive bowel sounds, soft, non-tender, non-distended (p rotuberant) Integumentary: normal Extremities: no cyanosis, no edema, pulses normal, no ischemia or petechiae Neurologic: non-focal exam (grossly), pupils equal and round, unable to assess Psychiatric: other (unable to assess re: AMS) CBC and BMP: 06/25/21 09:05 06/25/21 09:05 ABG, PT/INR, D-dimer: ABG ABG pH 7.304 (7.320-7.450) L 06/24/21 09:00 POC ABG pCO2 53.2 mmHg (32.0-48.0) H 06/24/21 09:00 ABG pCO2 56.5 mm Hg 06/22/21 21:22 POC ABG pO2 98.6 mmHg (83-108) 06/24/21 09:00 ABG pO2 61.7 mm Hg (80.0-90.0) L 06/22/21 21:22 POC ABG HCO3 25.8 06/24/21 09:00 ABG O2 Saturation 97.0 (0-100) 06/24/21 09:00 PT/INR, D-dimer PT 20.2 Sec. (12.2-14.9) H 06/25/21 09:05 INR 1.68 (0.87-1.13) H 06/25/21 09:05 D-Dimer 6308 ng/mlDDU (0-234) H 06/23/21 Unknown Abnormal lab findings: Abnormal Labs 06/07/21 06/07/21 06/07/21 19:11 19:11 19:11 WBC 11.5 H RBC Hgb Hct RDW Plt Count Lymph % (Auto) 6.5 L Lymph # (Auto) 0.8 L Seg Neutrophils % 89.9 H Seg Neuts % (Manual) Lymphocytes % (Manual) Nucleated RBC % Seg Neutrophils # 10.4 H Seg Neutrophils # Man Lymphocytes # (Manual) Monocytes # (Manual) PT INR APTT D-Dimer 5334.05 H ABG pH POC ABG pCO2 POC ABG pO2 ABG pO2 ABG O2 Saturation ABG Base Excess ABG Hemoglobin ABG Oxyhemoglobin ABG Methemoglobin ABG Sodium ABG Potassium ABG Chloride ABG Glucose Oxyhemoglobin Carboxyhemoglobin Sodium Potassium Chloride Carbon Dioxide BUN 67 H Creatinine 4.8 H Glucose 244 H POC Glucose Hemoglobin A1c Calcium Phosphorus Magnesium Ferritin Lactate Dehydrogenase 796 H Troponin T 0.043 H C-Reactive Protein 19.60 H Total Protein 8.4 H Albumin 3.1 L Gybeb-0-Vrngtvjzd Yiuhf-5-Afvjvture Beta Globulins PEP Interpretation Triglycerides 209 H HDL Cholesterol 35 L Arterial Blood Glucose Arterial Blood Ionized Calcium Urine WBC (Auto) Coronavirus (PCR) 06/07/21 06/07/21 06/08/21 19:11 19:11 03:04 WBC RBC Hgb Hct RDW Plt Count Lymph % (Auto) Lymph # (Auto) Seg Neutrophils % Seg Neuts % (Manual) Lymphocytes % (Manual) Nucleated RBC % Seg Neutrophils # Seg Neutrophils # Man Lymphocytes # (Manual) Monocytes # (Manual) PT INR APTT D-Dimer ABG pH POC ABG pCO2 POC ABG pO2 ABG pO2 ABG O2 Saturation ABG Base Excess ABG Hemoglobin ABG Oxyhemoglobin ABG Methemoglobin ABG Sodium ABG Potassium ABG Chloride ABG Glucose Oxyhemoglobin Carboxyhemoglobin Sodium Potassium Chloride Carbon Dioxide BUN Creatinine Glucose POC Glucose Hemoglobin A1c 9.5 H Calcium Phosphorus Magnesium Ferritin 1230.0 H Lactate Dehydrogenase Troponin T 0.031 H D C-Reactive Protein Total Protein Albumin Modfm-9-Tdufyjinl Vucew-3-Kfaieawrw Beta Globulins PEP Interpretation Triglycerides HDL Cholesterol Arterial Blood Glucose Arterial Blood Ionized Calcium Urine WBC (Auto) Coronavirus (PCR) 06/08/21 06/08/21 06/08/21 03:44 03:44 08:21 WBC 12.9 H RBC Hgb Hct RDW Plt Count Lymph % (Auto) Lymph # (Auto) Seg Neutrophils % Seg Neuts % (Manual) 95.0 H Lymphocytes % (Manual) 3.0 L Nucleated RBC % Seg Neutrophils # Seg Neutrophils # Man 12.3 H Lymphocytes # (Manual) 0.4 L Monocytes # (Manual) PT INR APTT D-Dimer ABG pH POC ABG pCO2 POC ABG pO2 ABG pO2 ABG O2 Saturation ABG Base Excess ABG Hemoglobin ABG Oxyhemoglobin ABG Methemoglobin ABG Sodium ABG Potassium ABG Chloride ABG Glucose Oxyhemoglobin Carboxyhemoglobin Sodium Potassium Chloride Carbon Dioxide 20 L D BUN 68 H Creatinine 4.7 H Glucose 218 H POC Glucose 273 H Hemoglobin A1c Calcium Phosphorus Magnesium Ferritin Lactate Dehydrogenase Troponin T C-Reactive Protein Total Protein Albumin 3.4 L Yqtry-5-Kugjghcyb Zbgcw-2-Vwzoygtoj Beta Globulins PEP Interpretation Triglycerides HDL Cholesterol Arterial Blood Glucose Arterial Blood Ionized Calcium Urine WBC (Auto) Coronavirus (PCR) 06/08/21 06/08/21 06/08/21 08:30 11:00 17:29 WBC RBC Hgb Hct RDW Plt Count Lymph % (Auto) Lymph # (Auto) Seg Neutrophils % Seg Neuts % (Manual) Lymphocytes % (Manual) Nucleated RBC % Seg Neutrophils # Seg Neutrophils # Man Lymphocytes # (Manual) Monocytes # (Manual) PT INR APTT D-Dimer ABG pH POC ABG pCO2 POC ABG pO2 ABG pO2 ABG O2 Saturation ABG Base Excess ABG Hemoglobin ABG Oxyhemoglobin ABG Methemoglobin ABG Sodium ABG Potassium ABG Chloride ABG Glucose Oxyhemoglobin Carboxyhemoglobin Sodium Potassium Chloride Carbon Dioxide BUN Creatinine Glucose POC Glucose 239 H 220 H Hemoglobin A1c Calcium Phosphorus Magnesium Ferritin Lactate Dehydrogenase Troponin T C-Reactive Protein Total Protein Albumin Bwwvo-5-Kndzbornd Fpuxy-3-Pbunznnjs Beta Globulins PEP Interpretation Triglycerides HDL Cholesterol Arterial Blood Glucose Arterial Blood Ionized Calcium Urine WBC (Auto) Coronavirus (PCR) Positive A 06/08/21 06/09/21 06/09/21 21:09 08:07 08:42 WBC 14.7 H RBC 5.28 H Hgb 14.9 H Hct 45.0 H D RDW Plt Count Lymph % (Auto) 4.9 L Lymph # (Auto) 0.7 L Seg Neutrophils % 90.0 H Seg Neuts % (Manual) Lymphocytes % (Manual) Nucleated RBC % Seg Neutrophils # 13.2 H Seg Neutrophils # Man Lymphocytes # (Manual) Monocytes # (Manual) PT INR APTT D-Dimer ABG pH POC ABG pCO2 POC ABG pO2 ABG pO2 ABG O2 Saturation ABG Base Excess ABG Hemoglobin ABG Oxyhemoglobin ABG Methemoglobin ABG Sodium ABG Potassium ABG Chloride ABG Glucose Oxyhemoglobin Carboxyhemoglobin Sodium Potassium Chloride Carbon Dioxide BUN Creatinine Glucose POC Glucose 242 H 230 H Hemoglobin A1c Calcium Phosphorus Magnesium Ferritin Lactate Dehydrogenase Troponin T C-Reactive Protein Total Protein Albumin Foerx-4-Grefrbyie Wffcl-5-Guyfooedi Beta Globulins PEP Interpretation Triglycerides HDL Cholesterol Arterial Blood Glucose Arterial Blood Ionized Calcium Urine WBC (Auto) Coronavirus (PCR) 06/09/21 06/09/21 06/09/21 08:42 12:05 12:19 WBC RBC Hgb Hct RDW Plt Count Lymph % (Auto) Lymph # (Auto) Seg Neutrophils % Seg Neuts % (Manual) Lymphocytes % (Manual) Nucleated RBC % Seg Neutrophils # Seg Neutrophils # Man Lymphocytes # (Manual) Monocytes # (Manual) PT INR APTT D-Dimer ABG pH POC ABG pCO2 POC ABG pO2 71.4 L ABG pO2 ABG O2 Saturation ABG Base Excess ABG Hemoglobin ABG Oxyhemoglobin 92.9 L ABG Methemoglobin ABG Sodium ABG Potassium ABG Chloride 109.0 H ABG Glucose 287 H Oxyhemoglobin Carboxyhemoglobin 0.4 L Sodium Potassium Chloride Carbon Dioxide 17 L BUN 74 H Creatinine 3.7 H Glucose 259 H POC Glucose 274 H Hemoglobin A1c Calcium 8.3 L Phosphorus Magnesium Ferritin Lactate Dehydrogenase Troponin T C-Reactive Protein Total Protein Albumin Mjnpx-2-Sekooddyh Psqux-4-Pqlfugaht Beta Globulins PEP Interpretation Triglycerides HDL Cholesterol Arterial Blood Glucose 287 H Arterial Blood Ionized Calcium Urine WBC (Auto) Coronavirus (PCR) 06/09/21 06/09/21 06/10/21 16:59 21:06 08:25 WBC RBC Hgb Hct RDW Plt Count Lymph % (Auto) Lymph # (Auto) Seg Neutrophils % Seg Neuts % (Manual) Lymphocytes % (Manual) Nucleated RBC % Seg Neutrophils # Seg Neutrophils # Man Lymphocytes # (Manual) Monocytes # (Manual) PT INR APTT D-Dimer ABG pH POC ABG pCO2 POC ABG pO2 ABG pO2 ABG O2 Saturation ABG Base Excess ABG Hemoglobin ABG Oxyhemoglobin ABG Methemoglobin ABG Sodium ABG Potassium ABG Chloride ABG Glucose Oxyhemoglobin Carboxyhemoglobin Sodium Potassium Chloride Carbon Dioxide BUN Creatinine Glucose POC Glucose 268 H 263 H 280 H Hemoglobin A1c Calcium Phosphorus Magnesium Ferritin Lactate Dehydrogenase Troponin T C-Reactive Protein Total Protein Albumin Gbzpv-2-Sqctdcmru Gymxq-5-Oiwwaqjxt Beta Globulins PEP Interpretation Triglycerides HDL Cholesterol Arterial Blood Glucose Arterial Blood Ionized Calcium Urine WBC (Auto) Coronavirus (PCR) 06/10/21 06/10/21 06/10/21 12:07 15:38 21:04 WBC RBC Hgb Hct RDW Plt Count Lymph % (Auto) Lymph # (Auto) Seg Neutrophils % Seg Neuts % (Manual) Lymphocytes % (Manual) Nucleated RBC % Seg Neutrophils # Seg Neutrophils # Man Lymphocytes # (Manual) Monocytes # (Manual) PT INR APTT D-Dimer ABG pH POC ABG pCO2 POC ABG pO2 ABG pO2 ABG O2 Saturation ABG Base Excess ABG Hemoglobin ABG Oxyhemoglobin ABG Methemoglobin ABG Sodium ABG Potassium ABG Chloride ABG Glucose Oxyhemoglobin Carboxyhemoglobin Sodium Potassium Chloride Carbon Dioxide BUN Creatinine Glucose POC Glucose 247 H 269 H 195 H Hemoglobin A1c Calcium Phosphorus Magnesium Ferritin Lactate Dehydrogenase Troponin T C-Reactive Protein Total Protein Albumin Wuypl-4-Uchxwmlmy Mpruf-6-Dbhadmxqj Beta Globulins PEP Interpretation Triglycerides HDL Cholesterol Arterial Blood Glucose Arterial Blood Ionized Calcium Urine WBC (Auto) Coronavirus (PCR) 06/10/21 06/10/21 06/10/21 23:14 23:14 23:14 WBC RBC Hgb Hct RDW 15.3 H Plt Count Lymph % (Auto) Lymph # (Auto) Seg Neutrophils % Seg Neuts % (Manual) 93.0 H Lymphocytes % (Manual) 2.0 L Nucleated RBC % 3.0 H Seg Neutrophils # Seg Neutrophils # Man 10.2 H Lymphocytes # (Manual) 0.2 L Monocytes # (Manual) PT INR APTT D-Dimer ABG pH POC ABG pCO2 POC ABG pO2 ABG pO2 ABG O2 Saturation ABG Base Excess ABG Hemoglobin ABG Oxyhemoglobin ABG Methemoglobin ABG Sodium ABG Potassium ABG Chloride ABG Glucose Oxyhemoglobin Carboxyhemoglobin Sodium 148 H D Potassium Chloride 111.7 H Carbon Dioxide 20 L BUN 70 H Creatinine 3.2 H Glucose 186 H POC Glucose Hemoglobin A1c Calcium Phosphorus Magnesium Ferritin Lactate Dehydrogenase Troponin T C-Reactive Protein Total Protein Albumin 2.6 L Bkmvh-6-Bjctetrvp 0.5 H Jbzok-9-Rrdxsodyp 1.7 H Beta Globulins 0.6 H PEP Interpretation see below H Triglycerides HDL Cholesterol Arterial Blood Glucose Arterial Blood Ionized Calcium Urine WBC (Auto) Coronavirus (PCR) 06/10/21 06/10/21 06/10/21 23:14 23:14 23:14 WBC RBC Hgb Hct RDW Plt Count Lymph % (Auto) Lymph # (Auto) Seg Neutrophils % Seg Neuts % (Manual) Lymphocytes % (Manual) Nucleated RBC % Seg Neutrophils # Seg Neutrophils # Man Lymphocytes # (Manual) Monocytes # (Manual) PT INR APTT D-Dimer > 97620 H ABG pH POC ABG pCO2 POC ABG pO2 ABG pO2 ABG O2 Saturation ABG Base Excess ABG Hemoglobin ABG Oxyhemoglobin ABG Methemoglobin ABG Sodium ABG Potassium ABG Chloride ABG Glucose Oxyhemoglobin Carboxyhemoglobin Sodium Potassium Chloride Carbon Dioxide BUN Creatinine Glucose POC Glucose Hemoglobin A1c Calcium Phosphorus Magnesium 2.50 H Ferritin 1319.0 H Lactate Dehydrogenase 606 H Troponin T C-Reactive Protein Total Protein Albumin Tvlws-3-Azlapyfpa Anjju-8-Fltsrfmwu Beta Globulins PEP Interpretation Triglycerides HDL Cholesterol Arterial Blood Glucose Arterial Blood Ionized Calcium Urine WBC (Auto) Coronavirus (PCR) 06/11/21 06/11/21 06/11/21 07:34 10:57 10:57 WBC RBC Hgb Hct RDW Plt Count Lymph % (Auto) Lymph # (Auto) Seg Neutrophils % Seg Neuts % (Manual) Lymphocytes % (Manual) Nucleated RBC % Seg Neutrophils # Seg Neutrophils # Man Lymphocytes # (Manual) Monocytes # (Manual) PT INR APTT D-Dimer > 08544 H ABG pH POC ABG pCO2 POC ABG pO2 ABG pO2 ABG O2 Saturation ABG Base Excess ABG Hemoglobin ABG Oxyhemoglobin ABG Methemoglobin ABG Sodium ABG Potassium ABG Chloride ABG Glucose Oxyhemoglobin Carboxyhemoglobin Sodium Potassium Chloride Carbon Dioxide BUN Creatinine Glucose POC Glucose 169 H Hemoglobin A1c Calcium Phosphorus Magnesium Ferritin 1300.0 H Lactate Dehydrogenase Troponin T C-Reactive Protein Total Protein Albumin Rwnwe-6-Hkoxbpbhe Cmvrn-9-Wydnkprmo Beta Globulins PEP Interpretation Triglycerides HDL Cholesterol Arterial Blood Glucose Arterial Blood Ionized Calcium Urine WBC (Auto) Coronavirus (PCR) 06/11/21 06/11/21 06/11/21 10:58 10:58 11:49 WBC 11.3 H RBC Hgb Hct RDW 15.3 H Plt Count Lymph % (Auto) Lymph # (Auto) Seg Neutrophils % Seg Neuts % (Manual) 88.0 H Lymphocytes % (Manual) 6.0 L Nucleated RBC % Seg Neutrophils # Seg Neutrophils # Man 9.9 H Lymphocytes # (Manual) 0.7 L Monocytes # (Manual) PT INR APTT D-Dimer ABG pH POC ABG pCO2 POC ABG pO2 ABG pO2 ABG O2 Saturation ABG Base Excess ABG Hemoglobin ABG Oxyhemoglobin ABG Methemoglobin ABG Sodium ABG Potassium ABG Chloride ABG Glucose Oxyhemoglobin Carboxyhemoglobin Sodium 150 H Potassium 3.4 L Chloride 114.8 H Carbon Dioxide 21 L BUN 65 H Creatinine 2.9 H Glucose 180 H POC Glucose 191 H Hemoglobin A1c Calcium Phosphorus Magnesium 2.50 H Ferritin Lactate Dehydrogenase Troponin T C-Reactive Protein 1.90 H Total Protein Albumin Ythyu-8-Kelmsrakx Gvupp-7-Zkganhrck Beta Globulins PEP Interpretation Triglycerides HDL Cholesterol Arterial Blood Glucose Arterial Blood Ionized Calcium Urine WBC (Auto) Coronavirus (PCR) 06/11/21 06/11/21 06/12/21 15:49 21:16 04:22 WBC RBC Hgb Hct RDW Plt Count Lymph % (Auto) Lymph # (Auto) Seg Neutrophils % Seg Neuts % (Manual) Lymphocytes % (Manual) Nucleated RBC % Seg Neutrophils # Seg Neutrophils # Man Lymphocytes # (Manual) Monocytes # (Manual) PT INR APTT D-Dimer ABG pH 7.318 L POC ABG pCO2 POC ABG pO2 ABG pO2 51.5 L ABG O2 Saturation 86.9 L ABG Base Excess -5.6 L ABG Hemoglobin ABG Oxyhemoglobin ABG Methemoglobin ABG Sodium ABG Potassium ABG Chloride ABG Glucose Oxyhemoglobin 85.5 L Carboxyhemoglobin Sodium Potassium Chloride Carbon Dioxide BUN Creatinine Glucose POC Glucose 185 H 200 H Hemoglobin A1c Calcium Phosphorus Magnesium Ferritin Lactate Dehydrogenase Troponin T C-Reactive Protein Total Protein Albumin Upvxr-7-Rqodcahoe Ejmdo-4-Dfhuspkmz Beta Globulins PEP Interpretation Triglycerides HDL Cholesterol Arterial Blood Glucose Arterial Blood Ionized Calcium Urine WBC (Auto) Coronavirus (PCR) 06/12/21 06/12/21 06/12/21 07:41 08:31 08:31 WBC 12.4 H RBC Hgb Hct RDW 15.3 H Plt Count Lymph % (Auto) 8.5 L Lymph # (Auto) 1.1 L Seg Neutrophils % 88.1 H Seg Neuts % (Manual) Lymphocytes % (Manual) Nucleated RBC % Seg Neutrophils # 10.9 H Seg Neutrophils # Man Lymphocytes # (Manual) Monocytes # (Manual) PT INR APTT D-Dimer ABG pH POC ABG pCO2 POC ABG pO2 ABG pO2 ABG O2 Saturation ABG Base Excess ABG Hemoglobin ABG Oxyhemoglobin ABG Methemoglobin ABG Sodium ABG Potassium ABG Chloride ABG Glucose Oxyhemoglobin Carboxyhemoglobin Sodium 151 H Potassium Chloride 117.3 H Carbon Dioxide 21 L BUN 61 H Creatinine 2.5 H Glucose 165 H POC Glucose 165 H Hemoglobin A1c Calcium 8.3 L Phosphorus Magnesium Ferritin Lactate Dehydrogenase Troponin T C-Reactive Protein Total Protein Albumin Gaagt-7-Fjsqtweku Vcbnj-7-Hgmxfxvol Beta Globulins PEP Interpretation Triglycerides HDL Cholesterol Arterial Blood Glucose Arterial Blood Ionized Calcium Urine WBC (Auto) Coronavirus (PCR) 06/12/21 06/12/21 06/12/21 08:31 10:32 15:47 WBC RBC Hgb Hct RDW Plt Count Lymph % (Auto) Lymph # (Auto) Seg Neutrophils % Seg Neuts % (Manual) Lymphocytes % (Manual) Nucleated RBC % Seg Neutrophils # Seg Neutrophils # Man Lymphocytes # (Manual) Monocytes # (Manual) PT INR APTT D-Dimer ABG pH POC ABG pCO2 POC ABG pO2 ABG pO2 ABG O2 Saturation ABG Base Excess ABG Hemoglobin ABG Oxyhemoglobin ABG Methemoglobin ABG Sodium ABG Potassium ABG Chloride ABG Glucose Oxyhemoglobin Carboxyhemoglobin Sodium Potassium Chloride Carbon Dioxide BUN Creatinine Glucose POC Glucose 156 H 176 H Hemoglobin A1c Calcium Phosphorus Magnesium 2.50 H Ferritin Lactate Dehydrogenase Troponin T C-Reactive Protein Total Protein Albumin Prfpi-6-Sjytbnyhu Ckyxf-3-Sjdzxyjjc Beta Globulins PEP Interpretation Triglycerides HDL Cholesterol Arterial Blood Glucose Arterial Blood Ionized Calcium Urine WBC (Auto) Coronavirus (PCR) 06/12/21 06/13/21 06/13/21 21:50 07:42 07:42 WBC 14.1 H RBC Hgb Hct RDW 15.3 H Plt Count Lymph % (Auto) Lymph # (Auto) Seg Neutrophils % Seg Neuts % (Manual) 87.0 H Lymphocytes % (Manual) 7.0 L Nucleated RBC % 3.0 H Seg Neutrophils # Seg Neutrophils # Man 12.3 H Lymphocytes # (Manual) 1.0 L Monocytes # (Manual) PT INR APTT D-Dimer ABG pH POC ABG pCO2 POC ABG pO2 ABG pO2 ABG O2 Saturation ABG Base Excess ABG Hemoglobin ABG Oxyhemoglobin ABG Methemoglobin ABG Sodium ABG Potassium ABG Chloride ABG Glucose Oxyhemoglobin Carboxyhemoglobin Sodium 151 H Potassium 3.5 L Chloride 116.0 H Carbon Dioxide BUN 61 H Creatinine 2.3 H Glucose 135 H POC Glucose 165 H Hemoglobin A1c Calcium Phosphorus Magnesium 2.50 H Ferritin Lactate Dehydrogenase Troponin T C-Reactive Protein Total Protein Albumin Mrpci-1-Iukwmgoub Vapfc-6-Oztkwhzwm Beta Globulins PEP Interpretation Triglycerides HDL Cholesterol Arterial Blood Glucose Arterial Blood Ionized Calcium Urine WBC (Auto) Coronavirus (PCR) 06/13/21 06/13/21 06/13/21 08:10 11:10 18:15 WBC RBC Hgb Hct RDW Plt Count Lymph % (Auto) Lymph # (Auto) Seg Neutrophils % Seg Neuts % (Manual) Lymphocytes % (Manual) Nucleated RBC % Seg Neutrophils # Seg Neutrophils # Man Lymphocytes # (Manual) Monocytes # (Manual) PT INR APTT D-Dimer ABG pH POC ABG pCO2 POC ABG pO2 ABG pO2 ABG O2 Saturation ABG Base Excess ABG Hemoglobin ABG Oxyhemoglobin ABG Methemoglobin ABG Sodium ABG Potassium ABG Chloride ABG Glucose Oxyhemoglobin Carboxyhemoglobin Sodium Potassium Chloride Carbon Dioxide BUN Creatinine Glucose POC Glucose 118 H 139 H 179 H Hemoglobin A1c Calcium Phosphorus Magnesium Ferritin Lactate Dehydrogenase Troponin T C-Reactive Protein Total Protein Albumin Egecg-8-Nbweewmxs Hmjpp-8-Sbqnwtpzj Beta Globulins PEP Interpretation Triglycerides HDL Cholesterol Arterial Blood Glucose Arterial Blood Ionized Calcium Urine WBC (Auto) Coronavirus (PCR) 06/13/21 06/13/21 06/14/21 21:54 23:27 04:42 WBC 12.8 H RBC Hgb Hct RDW 15.3 H Plt Count Lymph % (Auto) Lymph # (Auto) Seg Neutrophils % Seg Neuts % (Manual) 92.0 H Lymphocytes % (Manual) 1.0 L Nucleated RBC % 2.0 H Seg Neutrophils # Seg Neutrophils # Man 11.8 H Lymphocytes # (Manual) 0.1 L Monocytes # (Manual) PT INR APTT D-Dimer ABG pH POC ABG pCO2 POC ABG pO2 ABG pO2 ABG O2 Saturation ABG Base Excess ABG Hemoglobin ABG Oxyhemoglobin ABG Methemoglobin ABG Sodium ABG Potassium ABG Chloride ABG Glucose Oxyhemoglobin Carboxyhemoglobin Sodium 152 H Potassium Chloride 116.3 H Carbon Dioxide 21 L BUN 67 H Creatinine 2.5 H Glucose 212 H POC Glucose 193 H Hemoglobin A1c Calcium Phosphorus Magnesium Ferritin Lactate Dehydrogenase Troponin T C-Reactive Protein Total Protein Albumin Iypwj-9-Zfwsrvcqp Aigdi-8-Xtidkyvfc Beta Globulins PEP Interpretation Triglycerides HDL Cholesterol Arterial Blood Glucose Arterial Blood Ionized Calcium Urine WBC (Auto) Coronavirus (PCR) 06/14/21 06/14/21 06/14/21 04:42 04:42 07:33 WBC RBC Hgb Hct RDW Plt Count Lymph % (Auto) Lymph # (Auto) Seg Neutrophils % Seg Neuts % (Manual) Lymphocytes % (Manual) Nucleated RBC % Seg Neutrophils # Seg Neutrophils # Man Lymphocytes # (Manual) Monocytes # (Manual) PT INR APTT D-Dimer ABG pH POC ABG pCO2 POC ABG pO2 ABG pO2 ABG O2 Saturation ABG Base Excess ABG Hemoglobin ABG Oxyhemoglobin ABG Methemoglobin ABG Sodium ABG Potassium ABG Chloride ABG Glucose Oxyhemoglobin Carboxyhemoglobin Sodium 152 H Potassium Chloride 115.3 H Carbon Dioxide BUN 68 H Creatinine 2.5 H Glucose 188 H POC Glucose 173 H Hemoglobin A1c Calcium Phosphorus Magnesium 2.40 H Ferritin Lactate Dehydrogenase Troponin T C-Reactive Protein Total Protein Albumin Rinzj-7-Eozfgvxfm Jwbkx-1-Vbrviyncw Beta Globulins PEP Interpretation Triglycerides HDL Cholesterol Arterial Blood Glucose Arterial Blood Ionized Calcium Urine WBC (Auto) Coronavirus (PCR) 06/14/21 06/14/21 06/14/21 10:57 15:53 23:40 WBC RBC Hgb Hct RDW Plt Count Lymph % (Auto) Lymph # (Auto) Seg Neutrophils % Seg Neuts % (Manual) Lymphocytes % (Manual) Nucleated RBC % Seg Neutrophils # Seg Neutrophils # Man Lymphocytes # (Manual) Monocytes # (Manual) PT INR APTT D-Dimer ABG pH POC ABG pCO2 POC ABG pO2 ABG pO2 ABG O2 Saturation ABG Base Excess ABG Hemoglobin ABG Oxyhemoglobin ABG Methemoglobin ABG Sodium ABG Potassium ABG Chloride ABG Glucose Oxyhemoglobin Carboxyhemoglobin Sodium Potassium Chloride Carbon Dioxide BUN Creatinine Glucose POC Glucose 195 H 226 H 235 H Hemoglobin A1c Calcium Phosphorus Magnesium Ferritin Lactate Dehydrogenase Troponin T C-Reactive Protein Total Protein Albumin Mrpbs-0-Wumismxga Xuqyz-2-Hbubhqfub Beta Globulins PEP Interpretation Triglycerides HDL Cholesterol Arterial Blood Glucose Arterial Blood Ionized Calcium Urine WBC (Auto) Coronavirus (PCR) 06/15/21 06/15/21 06/15/21 07:38 07:38 07:38 WBC 14.3 H RBC Hgb Hct RDW Plt Count Lymph % (Auto) Lymph # (Auto) Seg Neutrophils % Seg Neuts % (Manual) 95.0 H Lymphocytes % (Manual) 1.0 L Nucleated RBC % Seg Neutrophils # Seg Neutrophils # Man 13.6 H Lymphocytes # (Manual) 0.1 L Monocytes # (Manual) PT INR APTT D-Dimer > 18974 H ABG pH POC ABG pCO2 POC ABG pO2 ABG pO2 ABG O2 Saturation ABG Base Excess ABG Hemoglobin ABG Oxyhemoglobin ABG Methemoglobin ABG Sodium ABG Potassium ABG Chloride ABG Glucose Oxyhemoglobin Carboxyhemoglobin Sodium 153 H Potassium 3.5 L Chloride 115.9 H Carbon Dioxide BUN 55 H Creatinine 2.1 H Glucose 213 H POC Glucose Hemoglobin A1c Calcium Phosphorus Magnesium Ferritin Lactate Dehydrogenase Troponin T C-Reactive Protein Total Protein Albumin Tcemg-5-Afdxxkubn Pavcb-1-Rmovasxrn Beta Globulins PEP Interpretation Triglycerides HDL Cholesterol Arterial Blood Glucose Arterial Blood Ionized Calcium Urine WBC (Auto) Coronavirus (PCR) 06/15/21 06/15/21 06/15/21 07:38 09:21 11:46 WBC RBC Hgb Hct RDW Plt Count Lymph % (Auto) Lymph # (Auto) Seg Neutrophils % Seg Neuts % (Manual) Lymphocytes % (Manual) Nucleated RBC % Seg Neutrophils # Seg Neutrophils # Man Lymphocytes # (Manual) Monocytes # (Manual) PT INR APTT D-Dimer ABG pH POC ABG pCO2 POC ABG pO2 ABG pO2 ABG O2 Saturation ABG Base Excess ABG Hemoglobin ABG Oxyhemoglobin ABG Methemoglobin ABG Sodium ABG Potassium ABG Chloride ABG Glucose Oxyhemoglobin Carboxyhemoglobin Sodium Potassium Chloride Carbon Dioxide BUN Creatinine Glucose POC Glucose 202 H 233 H Hemoglobin A1c Calcium Phosphorus Magnesium Ferritin 1246.0 H Lactate Dehydrogenase Troponin T C-Reactive Protein Total Protein Albumin Mtpls-0-Wsaqxodpx Gqrxr-6-Iobprrtnq Beta Globulins PEP Interpretation Triglycerides HDL Cholesterol Arterial Blood Glucose Arterial Blood Ionized Calcium Urine WBC (Auto) Coronavirus (PCR) 06/15/21 06/16/21 06/16/21 17:32 05:44 07:48 WBC RBC Hgb Hct RDW Plt Count Lymph % (Auto) Lymph # (Auto) Seg Neutrophils % Seg Neuts % (Manual) Lymphocytes % (Manual) Nucleated RBC % Seg Neutrophils # Seg Neutrophils # Man Lymphocytes # (Manual) Monocytes # (Manual) PT INR APTT D-Dimer ABG pH POC ABG pCO2 POC ABG pO2 ABG pO2 ABG O2 Saturation ABG Base Excess ABG Hemoglobin ABG Oxyhemoglobin ABG Methemoglobin ABG Sodium ABG Potassium ABG Chloride ABG Glucose Oxyhemoglobin Carboxyhemoglobin Sodium 154 H Potassium Chloride 117.2 H Carbon Dioxide BUN 54 H Creatinine 2.0 H Glucose 120 H POC Glucose 179 H 109 H Hemoglobin A1c Calcium Phosphorus Magnesium Ferritin Lactate Dehydrogenase Troponin T C-Reactive Protein Total Protein Albumin Lzpzw-7-Isjvsnkcp Kslgz-2-Hxptieaxe Beta Globulins PEP Interpretation Triglycerides HDL Cholesterol Arterial Blood Glucose Arterial Blood Ionized Calcium Urine WBC (Auto) Coronavirus (PCR) 06/16/21 06/16/21 06/16/21 11:13 15:22 21:15 WBC RBC Hgb Hct RDW Plt Count Lymph % (Auto) Lymph # (Auto) Seg Neutrophils % Seg Neuts % (Manual) Lymphocytes % (Manual) Nucleated RBC % Seg Neutrophils # Seg Neutrophils # Man Lymphocytes # (Manual) Monocytes # (Manual) PT INR APTT D-Dimer ABG pH POC ABG pCO2 POC ABG pO2 ABG pO2 ABG O2 Saturation ABG Base Excess ABG Hemoglobin ABG Oxyhemoglobin ABG Methemoglobin ABG Sodium ABG Potassium ABG Chloride ABG Glucose Oxyhemoglobin Carboxyhemoglobin Sodium Potassium Chloride Carbon Dioxide BUN Creatinine Glucose POC Glucose 222 H 218 H 250 H Hemoglobin A1c Calcium Phosphorus Magnesium Ferritin Lactate Dehydrogenase Troponin T C-Reactive Protein Total Protein Albumin Qrlvk-9-Nlpagwhzv Bojue-9-Znigksfdv Beta Globulins PEP Interpretation Triglycerides HDL Cholesterol Arterial Blood Glucose Arterial Blood Ionized Calcium Urine WBC (Auto) Coronavirus (PCR) 06/17/21 06/17/21 06/17/21 07:55 09:35 09:35 WBC RBC Hgb Hct RDW 15.7 H Plt Count 99 L Lymph % (Auto) Lymph # (Auto) Seg Neutrophils % Seg Neuts % (Manual) Lymphocytes % (Manual) Nucleated RBC % Seg Neutrophils # Seg Neutrophils # Man Lymphocytes # (Manual) Monocytes # (Manual) PT INR APTT D-Dimer ABG pH POC ABG pCO2 POC ABG pO2 ABG pO2 ABG O2 Saturation ABG Base Excess ABG Hemoglobin ABG Oxyhemoglobin ABG Methemoglobin ABG Sodium ABG Potassium ABG Chloride ABG Glucose Oxyhemoglobin Carboxyhemoglobin Sodium 148 H Potassium Chloride 113.3 H Carbon Dioxide BUN 45 H Creatinine 1.8 H Glucose 202 H POC Glucose 158 H Hemoglobin A1c Calcium Phosphorus Magnesium Ferritin Lactate Dehydrogenase Troponin T C-Reactive Protein Total Protein 6.0 L Albumin 2.8 L Fuyep-2-Uqxcvdulx Oyaxa-4-Sqavocqgd Beta Globulins PEP Interpretation Triglycerides HDL Cholesterol Arterial Blood Glucose Arterial Blood Ionized Calcium Urine WBC (Auto) Coronavirus (PCR) 06/17/21 06/17/21 06/18/21 12:32 16:46 06:00 WBC RBC Hgb Hct RDW Plt Count Lymph % (Auto) Lymph # (Auto) Seg Neutrophils % Seg Neuts % (Manual) Lymphocytes % (Manual) Nucleated RBC % Seg Neutrophils # Seg Neutrophils # Man Lymphocytes # (Manual) Monocytes # (Manual) PT INR APTT D-Dimer 9804.08 H ABG pH POC ABG pCO2 POC ABG pO2 ABG pO2 ABG O2 Saturation ABG Base Excess ABG Hemoglobin ABG Oxyhemoglobin ABG Methemoglobin ABG Sodium ABG Potassium ABG Chloride ABG Glucose Oxyhemoglobin Carboxyhemoglobin Sodium Potassium Chloride Carbon Dioxide BUN Creatinine Glucose POC Glucose 227 H 203 H Hemoglobin A1c Calcium Phosphorus Magnesium Ferritin Lactate Dehydrogenase Troponin T C-Reactive Protein Total Protein Albumin Xymfk-2-Fomqnqegg Ezrxy-0-Htrmuajpi Beta Globulins PEP Interpretation Triglycerides HDL Cholesterol Arterial Blood Glucose Arterial Blood Ionized Calcium Urine WBC (Auto) Coronavirus (PCR) 06/18/21 06/18/21 06/18/21 06:00 08:00 10:10 WBC RBC Hgb Hct RDW Plt Count Lymph % (Auto) Lymph # (Auto) Seg Neutrophils % Seg Neuts % (Manual) Lymphocytes % (Manual) Nucleated RBC % Seg Neutrophils # Seg Neutrophils # Man Lymphocytes # (Manual) Monocytes # (Manual) PT INR APTT D-Dimer ABG pH POC ABG pCO2 POC ABG pO2 ABG pO2 ABG O2 Saturation ABG Base Excess ABG Hemoglobin ABG Oxyhemoglobin ABG Methemoglobin ABG Sodium ABG Potassium ABG Chloride ABG Glucose Oxyhemoglobin Carboxyhemoglobin Sodium Potassium Chloride 110.1 H Carbon Dioxide BUN 39 H Creatinine 1.8 H Glucose 135 H POC Glucose 107 H Hemoglobin A1c Calcium Phosphorus Magnesium Ferritin 904.2 H Lactate Dehydrogenase Troponin T C-Reactive Protein Total Protein Albumin Evggq-3-Sbgtrfmkt Otcge-1-Xtfsejdrd Beta Globulins PEP Interpretation Triglycerides HDL Cholesterol Arterial Blood Glucose Arterial Blood Ionized Calcium Urine WBC (Auto) Coronavirus (PCR) 06/18/21 06/18/21 06/18/21 12:06 16:47 21:14 WBC RBC Hgb Hct RDW Plt Count Lymph % (Auto) Lymph # (Auto) Seg Neutrophils % Seg Neuts % (Manual) Lymphocytes % (Manual) Nucleated RBC % Seg Neutrophils # Seg Neutrophils # Man Lymphocytes # (Manual) Monocytes # (Manual) PT INR APTT D-Dimer ABG pH POC ABG pCO2 POC ABG pO2 ABG pO2 ABG O2 Saturation ABG Base Excess ABG Hemoglobin ABG Oxyhemoglobin ABG Methemoglobin ABG Sodium ABG Potassium ABG Chloride ABG Glucose Oxyhemoglobin Carboxyhemoglobin Sodium Potassium Chloride Carbon Dioxide BUN Creatinine Glucose POC Glucose 160 H 236 H 186 H Hemoglobin A1c Calcium Phosphorus Magnesium Ferritin Lactate Dehydrogenase Troponin T C-Reactive Protein Total Protein Albumin Zqhqu-6-Homgmybxs Lzkqs-3-Kttnhriai Beta Globulins PEP Interpretation Triglycerides HDL Cholesterol Arterial Blood Glucose Arterial Blood Ionized Calcium Urine WBC (Auto) Coronavirus (PCR) 06/19/21 06/19/21 06/20/21 15:46 15:46 08:04 WBC RBC Hgb Hct RDW 15.5 H Plt Count 73 L Lymph % (Auto) Lymph # (Auto) Seg Neutrophils % Seg Neuts % (Manual) Lymphocytes % (Manual) Nucleated RBC % Seg Neutrophils # Seg Neutrophils # Man Lymphocytes # (Manual) Monocytes # (Manual) PT INR APTT D-Dimer ABG pH POC ABG pCO2 POC ABG pO2 ABG pO2 ABG O2 Saturation ABG Base Excess ABG Hemoglobin ABG Oxyhemoglobin ABG Methemoglobin ABG Sodium ABG Potassium ABG Chloride ABG Glucose Oxyhemoglobin Carboxyhemoglobin Sodium 146 H Potassium Chloride 108.9 H Carbon Dioxide BUN 38 H Creatinine 1.7 H Glucose POC Glucose 52 L Hemoglobin A1c Calcium Phosphorus Magnesium Ferritin Lactate Dehydrogenase Troponin T C-Reactive Protein Total Protein Albumin Gtuva-0-Iedxzzldr Mxinf-5-Ckjiqtenn Beta Globulins PEP Interpretation Triglycerides HDL Cholesterol Arterial Blood Glucose Arterial Blood Ionized Calcium Urine WBC (Auto) Coronavirus (PCR) 06/20/21 06/20/21 06/20/21 11:58 15:16 17:54 WBC RBC Hgb Hct RDW Plt Count Lymph % (Auto) Lymph # (Auto) Seg Neutrophils % Seg Neuts % (Manual) Lymphocytes % (Manual) Nucleated RBC % Seg Neutrophils # Seg Neutrophils # Man Lymphocytes # (Manual) Monocytes # (Manual) PT INR APTT D-Dimer ABG pH POC ABG pCO2 POC ABG pO2 ABG pO2 ABG O2 Saturation ABG Base Excess ABG Hemoglobin ABG Oxyhemoglobin ABG Methemoglobin ABG Sodium ABG Potassium ABG Chloride ABG Glucose Oxyhemoglobin Carboxyhemoglobin Sodium 146 H Potassium Chloride 108.2 H Carbon Dioxide BUN 37 H Creatinine 1.7 H Glucose 131 H POC Glucose 58 L 219 H Hemoglobin A1c Calcium Phosphorus Magnesium Ferritin Lactate Dehydrogenase Troponin T C-Reactive Protein Total Protein Albumin Lpjao-6-Iargkwvrr Frfyb-9-Xuadtszex Beta Globulins PEP Interpretation Triglycerides HDL Cholesterol Arterial Blood Glucose Arterial Blood Ionized Calcium Urine WBC (Auto) Coronavirus (PCR) 06/20/21 06/21/21 06/21/21 21:58 06:00 07:41 WBC RBC Hgb Hct RDW Plt Count Lymph % (Auto) Lymph # (Auto) Seg Neutrophils % Seg Neuts % (Manual) Lymphocytes % (Manual) Nucleated RBC % Seg Neutrophils # Seg Neutrophils # Man Lymphocytes # (Manual) Monocytes # (Manual) PT INR APTT D-Dimer ABG pH POC ABG pCO2 POC ABG pO2 ABG pO2 ABG O2 Saturation ABG Base Excess ABG Hemoglobin ABG Oxyhemoglobin ABG Methemoglobin ABG Sodium ABG Potassium ABG Chloride ABG Glucose Oxyhemoglobin Carboxyhemoglobin Sodium Potassium Chloride Carbon Dioxide BUN 42 H Creatinine 2.0 H Glucose 225 H POC Glucose 180 H 204 H Hemoglobin A1c Calcium Phosphorus Magnesium Ferritin Lactate Dehydrogenase Troponin T C-Reactive Protein Total Protein Albumin Azkuq-4-Tjhutommo Ylsdw-6-Xtinsbmsf Beta Globulins PEP Interpretation Triglycerides HDL Cholesterol Arterial Blood Glucose Arterial Blood Ionized Calcium Urine WBC (Auto) Coronavirus (PCR) 06/21/21 06/21/21 06/21/21 11:01 11:20 15:57 WBC RBC Hgb Hct RDW Plt Count Lymph % (Auto) Lymph # (Auto) Seg Neutrophils % Seg Neuts % (Manual) Lymphocytes % (Manual) Nucleated RBC % Seg Neutrophils # Seg Neutrophils # Man Lymphocytes # (Manual) Monocytes # (Manual) PT INR APTT D-Dimer ABG pH POC ABG pCO2 POC ABG pO2 58.9 L ABG pO2 ABG O2 Saturation ABG Base Excess ABG Hemoglobin ABG Oxyhemoglobin 87.4 L ABG Methemoglobin ABG Sodium ABG Potassium ABG Chloride ABG Glucose 212 H Oxyhemoglobin Carboxyhemoglobin Sodium Potassium Chloride Carbon Dioxide BUN Creatinine Glucose POC Glucose 194 H 171 H Hemoglobin A1c Calcium Phosphorus Magnesium Ferritin Lactate Dehydrogenase Troponin T C-Reactive Protein Total Protein Albumin Mlzpp-1-Kmyrabdfb Gloim-9-Pwfnmhxyb Beta Globulins PEP Interpretation Triglycerides HDL Cholesterol Arterial Blood Glucose 212 H Arterial Blood Ionized Calcium 4.5 L Urine WBC (Auto) Coronavirus (PCR) 06/21/21 06/21/21 06/21/21 17:52 17:55 22:09 WBC RBC Hgb Hct RDW Plt Count Lymph % (Auto) Lymph # (Auto) Seg Neutrophils % Seg Neuts % (Manual) Lymphocytes % (Manual) Nucleated RBC % Seg Neutrophils # Seg Neutrophils # Man Lymphocytes # (Manual) Monocytes # (Manual) PT INR APTT D-Dimer ABG pH 7.316 L POC ABG pCO2 51.7 H POC ABG pO2 62.3 L ABG pO2 ABG O2 Saturation ABG Base Excess ABG Hemoglobin ABG Oxyhemoglobin 88.7 L ABG Methemoglobin ABG Sodium ABG Potassium ABG Chloride ABG Glucose 197 H Oxyhemoglobin Carboxyhemoglobin Sodium Potassium Chloride Carbon Dioxide BUN Creatinine Glucose POC Glucose 153 H 178 H Hemoglobin A1c Calcium Phosphorus Magnesium Ferritin Lactate Dehydrogenase Troponin T C-Reactive Protein Total Protein Albumin Uerdp-7-Ongpopcga Kyrkv-0-Jnfugcymz Beta Globulins PEP Interpretation Triglycerides HDL Cholesterol Arterial Blood Glucose 197 H Arterial Blood Ionized Calcium Urine WBC (Auto) Coronavirus (PCR) 06/22/21 06/22/21 06/22/21 07:30 07:43 11:47 WBC RBC Hgb Hct RDW Plt Count Lymph % (Auto) Lymph # (Auto) Seg Neutrophils % Seg Neuts % (Manual) Lymphocytes % (Manual) Nucleated RBC % Seg Neutrophils # Seg Neutrophils # Man Lymphocytes # (Manual) Monocytes # (Manual) PT INR APTT D-Dimer ABG pH POC ABG pCO2 POC ABG pO2 ABG pO2 ABG O2 Saturation ABG Base Excess ABG Hemoglobin ABG Oxyhemoglobin ABG Methemoglobin ABG Sodium ABG Potassium ABG Chloride ABG Glucose Oxyhemoglobin Carboxyhemoglobin Sodium Potassium Chloride Carbon Dioxide 21 L BUN 55 H Creatinine 2.8 H Glucose 219 H POC Glucose 235 H 222 H Hemoglobin A1c Calcium Phosphorus Magnesium Ferritin Lactate Dehydrogenase Troponin T C-Reactive Protein Total Protein Albumin Vixul-7-Ftqzxqxjk Ivqdo-5-Zepeqqljn Beta Globulins PEP Interpretation Triglycerides HDL Cholesterol Arterial Blood Glucose Arterial Blood Ionized Calcium Urine WBC (Auto) Coronavirus (PCR) 06/22/21 06/22/21 06/22/21 11:50 12:10 15:15 WBC RBC Hgb Hct RDW Plt Count Lymph % (Auto) Lymph # (Auto) Seg Neutrophils % Seg Neuts % (Manual) Lymphocytes % (Manual) Nucleated RBC % Seg Neutrophils # Seg Neutrophils # Man Lymphocytes # (Manual) Monocytes # (Manual) PT INR APTT D-Dimer ABG pH 7.273 L POC ABG pCO2 POC ABG pO2 56.8 L 56.8 L ABG pO2 58.0 L ABG O2 Saturation 85.7 L ABG Base Excess -4.9 L ABG Hemoglobin ABG Oxyhemoglobin 86.7 L 86.7 L ABG Methemoglobin ABG Sodium ABG Potassium ABG Chloride ABG Glucose Oxyhemoglobin 84.1 L Carboxyhemoglobin Sodium Potassium Chloride Carbon Dioxide BUN Creatinine Glucose POC Glucose Hemoglobin A1c Calcium Phosphorus Magnesium Ferritin Lactate Dehydrogenase Troponin T C-Reactive Protein Total Protein Albumin Nluri-8-Wrpxjawyy Ctiph-1-Dicuecuuq Beta Globulins PEP Interpretation Triglycerides HDL Cholesterol Arterial Blood Glucose Arterial Blood Ionized Calcium Urine WBC (Auto) Coronavirus (PCR) 06/22/21 06/22/21 06/22/21 17:28 21:22 23:35 WBC RBC Hgb Hct RDW Plt Count Lymph % (Auto) Lymph # (Auto) Seg Neutrophils % Seg Neuts % (Manual) Lymphocytes % (Manual) Nucleated RBC % Seg Neutrophils # Seg Neutrophils # Man Lymphocytes # (Manual) Monocytes # (Manual) PT INR APTT D-Dimer ABG pH 7.217 L POC ABG pCO2 POC ABG pO2 ABG pO2 61.7 L ABG O2 Saturation 87.3 L ABG Base Excess -6.0 L ABG Hemoglobin ABG Oxyhemoglobin ABG Methemoglobin ABG Sodium ABG Potassium ABG Chloride ABG Glucose Oxyhemoglobin 85.4 L Carboxyhemoglobin Sodium Potassium Chloride Carbon Dioxide BUN Creatinine Glucose POC Glucose 221 H 204 H Hemoglobin A1c Calcium Phosphorus Magnesium Ferritin Lactate Dehydrogenase Troponin T C-Reactive Protein Total Protein Albumin Nabkb-2-[place] Ggkyg-4-Zcblolpij Beta Globulins PEP Interpretation Triglycerides HDL Cholesterol Arterial Blood Glucose Arterial Blood Ionized Calcium Urine WBC (Auto) Coronavirus (PCR) 06/23/21 06/23/21 06/23/21 04:42 04:42 04:42 WBC 19.0 H RBC 5.04 H Hgb Hct 44.5 H RDW 16.6 H Plt Count 61 L Lymph % (Auto) Lymph # (Auto) Seg Neutrophils % Seg Neuts % (Manual) Lymphocytes % (Manual) 2.0 L Nucleated RBC % 46.0 H Seg Neutrophils # Seg Neutrophils # Man 13.1 H Lymphocytes # (Manual) 0.4 L Monocytes # (Manual) 1.1 H PT INR APTT D-Dimer 6308.27 H ABG pH POC ABG pCO2 POC ABG pO2 ABG pO2 ABG O2 Saturation ABG Base Excess ABG Hemoglobin ABG Oxyhemoglobin ABG Methemoglobin ABG Sodium ABG Potassium ABG Chloride ABG Glucose Oxyhemoglobin Carboxyhemoglobin Sodium Potassium 6.3 H* D Chloride Carbon Dioxide 21 L BUN 72 H Creatinine 4.6 H D Glucose 225 H POC Glucose Hemoglobin A1c Calcium 8.0 L Phosphorus Magnesium Ferritin Lactate Dehydrogenase Troponin T C-Reactive Protein Total Protein Albumin Xhath-7-Afxqmddzw Sjejh-7-Fhvmkneir Beta Globulins PEP Interpretation Triglycerides HDL Cholesterol Arterial Blood Glucose Arterial Blood Ionized Calcium Urine WBC (Auto) Coronavirus (PCR) 06/23/21 06/23/21 06/23/21 04:42 04:42 05:33 WBC RBC Hgb Hct RDW Plt Count Lymph % (Auto) Lymph # (Auto) Seg Neutrophils % Seg Neuts % (Manual) Lymphocytes % (Manual) Nucleated RBC % Seg Neutrophils # Seg Neutrophils # Man Lymphocytes # (Manual) Monocytes # (Manual) PT INR APTT D-Dimer ABG pH POC ABG pCO2 POC ABG pO2 ABG pO2 ABG O2 Saturation ABG Base Excess ABG Hemoglobin ABG Oxyhemoglobin ABG Methemoglobin ABG Sodium ABG Potassium ABG Chloride ABG Glucose Oxyhemoglobin Carboxyhemoglobin Sodium Potassium Chloride Carbon Dioxide BUN Creatinine Glucose POC Glucose 227 H Hemoglobin A1c Calcium 7.9 L Phosphorus 8.30 H Magnesium Ferritin 1496.0 H Lactate Dehydrogenase Troponin T C-Reactive Protein 4.40 H Total Protein Albumin Ttsob-6-Lekkuwjks Sywbx-1-Voyrerkzx Beta Globulins PEP Interpretation Triglycerides HDL Cholesterol Arterial Blood Glucose Arterial Blood Ionized Calcium Urine WBC (Auto) Coronavirus (PCR) 06/23/21 06/23/21 06/23/21 11:00 11:31 17:40 WBC RBC Hgb Hct RDW Plt Count Lymph % (Auto) Lymph # (Auto) Seg Neutrophils % Seg Neuts % (Manual) Lymphocytes % (Manual) Nucleated RBC % Seg Neutrophils # Seg Neutrophils # Man Lymphocytes # (Manual) Monocytes # (Manual) PT INR APTT D-Dimer ABG pH 7.177 L POC ABG pCO2 58.9 H POC ABG pO2 60.2 L ABG pO2 ABG O2 Saturation ABG Base Excess ABG Hemoglobin ABG Oxyhemoglobin 83.5 L ABG Methemoglobin 1.8 H ABG Sodium ABG Potassium ABG Chloride ABG Glucose Oxyhemoglobin Carboxyhemoglobin Sodium Potassium Chloride Carbon Dioxide BUN Creatinine Glucose POC Glucose 207 H Hemoglobin A1c Calcium Phosphorus Magnesium Ferritin Lactate Dehydrogenase Troponin T C-Reactive Protein Total Protein Albumin Fmfcf-7-Afbaoprte Utvxu-8-Gyrzhkive Beta Globulins PEP Interpretation Triglycerides HDL Cholesterol Arterial Blood Glucose Arterial Blood Ionized Calcium Urine WBC (Auto) > 182.0 H Coronavirus (PCR) 06/23/21 06/23/21 06/23/21 17:52 21:12 Unknown WBC RBC Hgb Hct RDW Plt Count Lymph % (Auto) Lymph # (Auto) Seg Neutrophils % Seg Neuts % (Manual) Lymphocytes % (Manual) Nucleated RBC % Seg Neutrophils # Seg Neutrophils # Man Lymphocytes # (Manual) Monocytes # (Manual) PT INR APTT D-Dimer 6308 H ABG pH 7.214 L POC ABG pCO2 60.2 H POC ABG pO2 78.9 L ABG pO2 ABG O2 Saturation ABG Base Excess ABG Hemoglobin ABG Oxyhemoglobin 93.4 L ABG Methemoglobin ABG Sodium ABG Potassium 6.3 H ABG Chloride ABG Glucose 338 H Oxyhemoglobin Carboxyhemoglobin Sodium Potassium Chloride Carbon Dioxide BUN Creatinine Glucose POC Glucose 232 H Hemoglobin A1c Calcium Phosphorus Magnesium Ferritin Lactate Dehydrogenase Troponin T C-Reactive Protein Total Protein Albumin Hgzep-2-Lwrolyrne Erect-8-Kyzdgdwgb Beta Globulins PEP Interpretation Triglycerides HDL Cholesterol Arterial Blood Glucose 338 H Arterial Blood Ionized Calcium 4.1 L Urine WBC (Auto) Coronavirus (PCR) 06/23/21 06/23/21 06/23/21 Unknown Unknown Unknown WBC RBC Hgb Hct RDW Plt Count Lymph % (Auto) Lymph # (Auto) Seg Neutrophils % Seg Neuts % (Manual) Lymphocytes % (Manual) Nucleated RBC % Seg Neutrophils # Seg Neutrophils # Man Lymphocytes # (Manual) Monocytes # (Manual) PT 24.6 H INR 2.18 H APTT 43.8 H D-Dimer ABG pH POC ABG pCO2 POC ABG pO2 ABG pO2 ABG O2 Saturation ABG Base Excess ABG Hemoglobin ABG Oxyhemoglobin ABG Methemoglobin ABG Sodium ABG Potassium ABG Chloride ABG Glucose Oxyhemoglobin Carboxyhemoglobin Sodium 146 H Potassium 5.3 H Chloride 113.2 H Carbon Dioxide 20 L BUN 73 H Creatinine 4.2 H Glucose 234 H POC Glucose Hemoglobin A1c Calcium 6.3 L D Phosphorus Magnesium Ferritin 1094.0 H Lactate Dehydrogenase Troponin T C-Reactive Protein Total Protein 4.3 L Albumin 2.0 L Ntcsu-8-Zgnmrceud Hnizc-0-Ensvlioiw Beta Globulins PEP Interpretation Triglycerides HDL Cholesterol Arterial Blood Glucose Arterial Blood Ionized Calcium Urine WBC (Auto) Coronavirus (PCR) 06/24/21 06/24/21 06/24/21 00:03 04:55 04:55 WBC 18.7 H RBC Hgb Hct RDW 16.8 H Plt Count 42 L Lymph % (Auto) Lymph # (Auto) Seg Neutrophils % Seg Neuts % (Manual) Lymphocytes % (Manual) 1.0 L Nucleated RBC % 1.0 H Seg Neutrophils # Seg Neutrophils # Man 12.7 H Lymphocytes # (Manual) 0.2 L Monocytes # (Manual) PT INR APTT D-Dimer ABG pH POC ABG pCO2 POC ABG pO2 ABG pO2 ABG O2 Saturation ABG Base Excess ABG Hemoglobin ABG Oxyhemoglobin ABG Methemoglobin ABG Sodium ABG Potassium ABG Chloride ABG Glucose Oxyhemoglobin Carboxyhemoglobin Sodium Potassium 6.0 H Chloride Carbon Dioxide 20 L BUN 86 H Creatinine 5.4 H Glucose 309 H POC Glucose 265 H Hemoglobin A1c Calcium 6.5 L Phosphorus 7.60 H Magnesium Ferritin Lactate Dehydrogenase Troponin T C-Reactive Protein Total Protein 4.6 L Albumin 2.1 L Xidyz-1-Pcjqavzps Udlyl-0-Ueoeuhehi Beta Globulins PEP Interpretation Triglycerides HDL Cholesterol Arterial Blood Glucose Arterial Blood Ionized Calcium Urine WBC (Auto) Coronavirus (PCR) 06/24/21 06/24/21 06/24/21 04:55 06:01 09:00 WBC RBC Hgb Hct RDW Plt Count Lymph % (Auto) Lymph # (Auto) Seg Neutrophils % Seg Neuts % (Manual) Lymphocytes % (Manual) Nucleated RBC % Seg Neutrophils # Seg Neutrophils # Man Lymphocytes # (Manual) Monocytes # (Manual) PT 22.2 H INR 1.90 H APTT D-Dimer ABG pH 7.304 L POC ABG pCO2 53.2 H POC ABG pO2 ABG pO2 ABG O2 Saturation ABG Base Excess ABG Hemoglobin 10.9 L ABG Oxyhemoglobin ABG Methemoglobin ABG Sodium 133.9 L ABG Potassium 5.8 H ABG Chloride ABG Glucose 380 H Oxyhemoglobin Carboxyhemoglobin 0.4 L Sodium Potassium Chloride Carbon Dioxide BUN Creatinine Glucose POC Glucose 257 H Hemoglobin A1c Calcium Phosphorus Magnesium Ferritin Lactate Dehydrogenase Troponin T C-Reactive Protein Total Protein Albumin Sjfci-0-Wtogxiliw Cmewr-6-Jjepzoqac Beta Globulins PEP Interpretation Triglycerides HDL Cholesterol Arterial Blood Glucose 380 H Arterial Blood Ionized Calcium Urine WBC (Auto) Coronavirus (PCR) 06/24/21 06/24/21 06/24/21 11:38 18:02 23:29 WBC RBC Hgb Hct RDW Plt Count Lymph % (Auto) Lymph # (Auto) Seg Neutrophils % Seg Neuts % (Manual) Lymphocytes % (Manual) Nucleated RBC % Seg Neutrophils # Seg Neutrophils # Man Lymphocytes # (Manual) Monocytes # (Manual) PT INR APTT D-Dimer ABG pH POC ABG pCO2 POC ABG pO2 ABG pO2 ABG O2 Saturation ABG Base Excess ABG Hemoglobin ABG Oxyhemoglobin ABG Methemoglobin ABG Sodium ABG Potassium ABG Chloride ABG Glucose Oxyhemoglobin Carboxyhemoglobin Sodium Potassium Chloride Carbon Dioxide BUN Creatinine Glucose POC Glucose 288 H 299 H 269 H Hemoglobin A1c Calcium Phosphorus Magnesium Ferritin Lactate Dehydrogenase Troponin T C-Reactive Protein Total Protein Albumin Ctjjp-9-Mepoiakyz Dnsom-3-Oiqfjptgg Beta Globulins PEP Interpretation Triglycerides HDL Cholesterol Arterial Blood Glucose Arterial Blood Ionized Calcium Urine WBC (Auto) Coronavirus (PCR) 06/25/21 06/25/21 06/25/21 05:12 09:05 09:05 WBC 14.5 H RBC Hgb Hct RDW 16.4 H Plt Count 41 L Lymph % (Auto) Lymph # (Auto) Seg Neutrophils % Seg Neuts % (Manual) Lymphocytes % (Manual) Nucleated RBC % Seg Neutrophils # Seg Neutrophils # Man Lymphocytes # (Manual) Monocytes # (Manual) PT 20.2 H INR 1.68 H APTT D-Dimer ABG pH POC ABG pCO2 POC ABG pO2 ABG pO2 ABG O2 Saturation ABG Base Excess ABG Hemoglobin ABG Oxyhemoglobin ABG Methemoglobin ABG Sodium ABG Potassium ABG Chloride ABG Glucose Oxyhemoglobin Carboxyhemoglobin Sodium Potassium Chloride Carbon Dioxide BUN Creatinine Glucose POC Glucose 283 H Hemoglobin A1c Calcium Phosphorus Magnesium Ferritin Lactate Dehydrogenase Troponin T C-Reactive Protein Total Protein Albumin Nbrwv-7-Nneenpdad Bajvv-7-Hxjwysdrw Beta Globulins PEP Interpretation Triglycerides HDL Cholesterol Arterial Blood Glucose Arterial Blood Ionized Calcium Urine WBC (Auto) Coronavirus (PCR) 06/25/21 06/25/21 09:05 12:05 WBC RBC Hgb Hct RDW Plt Count Lymph % (Auto) Lymph # (Auto) Seg Neutrophils % Seg Neuts % (Manual) Lymphocytes % (Manual) Nucleated RBC % Seg Neutrophils # Seg Neutrophils # Man Lymphocytes # (Manual) Monocytes # (Manual) PT INR APTT D-Dimer ABG pH POC ABG pCO2 POC ABG pO2 ABG pO2 ABG O2 Saturation ABG Base Excess ABG Hemoglobin ABG Oxyhemoglobin ABG Methemoglobin ABG Sodium ABG Potassium ABG Chloride ABG Glucose Oxyhemoglobin Carboxyhemoglobin Sodium Potassium 5.5 H Chloride 97.2 L Carbon Dioxide BUN 88 H Creatinine 5.6 H Glucose 370 H POC Glucose 359 H Hemoglobin A1c Calcium 7.4 L Phosphorus 8.00 H Magnesium Ferritin Lactate Dehydrogenase Troponin T C-Reactive Protein Total Protein 5.1 L Albumin 2.5 L Bfaij-3-Rdiqguqng Oszof-8-Jdnptucga Beta Globulins PEP Interpretation Triglycerides HDL Cholesterol Arterial Blood Glucose Arterial Blood Ionized Calcium Urine WBC (Auto) Coronavirus (PCR) Chest x-ray: image reviewed (stable infiltrates) Allied health notes reviewed: nursing
--- NOTE | 2021-06-25 15:23 | Operative Report ---
DATE OF SURGERY: 06/24/2021 PULMONARY PROCEDURE NOTE PROCEDURE: Right internal jugular vascular catheter placement. INDICATIONS: Need for dialysis access. Consent was informed and witness obtained from the patient's , Dane. COMPLICATIONS: No immediate procedural complications. PROCEDURE DETAILS: As follows: After informed and witnessed consent, as well as premedication, the patient being on the ventilator and on sedation, the area of the right upper anterior triangle of the neck was sterilely prepped and draped using chlorhexidine. Strict sterile technique was maintained including hats, gowns, gloves, mask and full barrier protection, all sterile. Blood loss was minimal. The right IJ was located with ultrasound guidance, it was large, it was compressible and the patient was placed in Trendelenburg. The generous local anesthetic agent was infiltrated initially with a 25-gauge needle and then a 22-gauge needle to infiltrate a little bit deeper. They provided central venous catheterization. A needle was then introduced on the first stick and under direct visualization, I was able to get into the vein. The internal jugular and a good looking venous blood return was obtained. Wire was threaded through the needle. Catheter was advanced over the wire after dilatation with both dilators provided. The catheter was then sutured in place, again good looking venous blood return was obtained. The lumens were flushed. After the lumens were capped and the sutures had been placed, the patient was taken out of Trendelenburg position. A post-procedure chest x-ray has been done. There is no pneumothorax. It is in good position and the line has been cleared to use. TID: [id number] RECEIPT: [id number] TASHA/KAROLINA
[2021-06-25] MEDS: fentaNYL 100 MCG/2 ML INJ IV PRN (18:28)
[2021-06-25] MEDS: NORepinephrine/NS 8 MG-250 ML 8 MG/250 ML INFUS..BTL IV SCH (18:50)
[2021-06-26] MEDS: INSULIN REGULAR, HUMAN 100 UNITS/1 ML SUB-Q SCH ×4 (00:46→19:04)
[2021-06-26] MEDS: MIDODRINE 5 MG TAB PO SCH ×4 (00:47→22:19)
[2021-06-26] MEDS: methylPREDNISolone Sod Succinate 125 MG/2 ML INJ IV SCH ×3 (00:52→19:09)
[2021-06-26] MEDS: LACOSAMIDE 100 MG in SODIUM CHLORIDE 0.9% 100 ML IV SCH ×2 (03:43→14:43)
[2021-06-26] MEDS: fentaNYL DRIP Premix 2,000 MCG/100 ML BAG IV SCH ×3 (03:52→22:19)
--- NOTE | 2021-06-26 03:52 | XRay Report ---
CHEST 1 VIEW 06/26/2021 1:57 AM INDICATION / CLINICAL INFORMATION: follow up respiratory failure. COMPARISON: Chest x-ray 06/25/2021 FINDINGS: SUPPORT DEVICES: Lines and tubes again project in expected position HEART / MEDIASTINUM: No significant abnormality. LUNGS / PLEURA: Extensive bilateral airspace disease, has progressed No pneumothorax. ADDITIONAL FINDINGS: No significant additional findings. IMPRESSION: 1. Severe bilateral pneumonia has worsened Signer Name: Yuval Rubin MD Signed: 06/26/2021 3:47 AM Workstation Name: [id number]
[2021-06-26] MEDS ORDERED: WATER FOR INJ Sterile (PF) 10 ML ONE (06:42)
[2021-06-26] MEDS: LEVOTHYROXINE 100 MCG INJ IV SCH (06:50)
[2021-06-26 07:23] LABS: Basophils % (Auto) 0.1 % (0.0-1.8); Lymphocytes # (Auto) 0.7 K/mm3 (1.2-5.4); Monocytes # (Auto) 0.7 K/mm3 (0.0-0.8); Monocytes % (Auto) 6.3 % (0.0-7.3); Red Blood Count 3.63 M/mm3 (3.65-5.03)
[2021-06-26 07:28] LABS: Hemoglobin 10.3 gm/dl (10.1-14.3); Lymphocytes % (Auto) 6.4 % (13.4-35.0); Mean Corpuscular HGB Conc 32 % (30-34); Mean Corpuscular Volume 88 fl (79-97); Red Cell Distribution Width 15.6 % (13.2-15.2)
[2021-06-26 07:33] LABS: Platelet Count 29 K/mm3 (140-440)
[2021-06-26 07:38] LABS: Calcium 8.7 mg/dL (8.4-10.2)
[2021-06-26] MEDS: CEFEPIME/NS 2 GM/100 ML 2 GM/100 ML BAG IV SCH (08:22)
[2021-06-26] MEDS: INSULIN NPH/REGULAR 70/30 INJ SUB-Q SCH ×2 (08:23→19:09)
[2021-06-26] MEDS: ASCORBIC ACID 500 MG TAB PO SCH ×2 (09:55→21:01)
[2021-06-26] MEDS: FAMOTIDINE 20 MG/2 ML INJ IV SCH ×2 (09:55→21:02)
[2021-06-26] MEDS: ZINC SULFATE 220 MG CAP PO SCH ×2 (09:55→21:01)
[2021-06-26] MEDS ORDERED: FONDAPARINUX 2.5 MG/0.5 ML INJ SUB-Q SCH (10:00)
[2021-06-26] MEDS: SENNOSIDES/DOCUSATE SODIUM 8.6/50 MG TAB FEEDTUBE SCH ×2 (10:00→21:01)
[2021-06-26 10:39] LABS: Partial Thromboplastin Time 26.7 Sec. (24.2-36.6)
--- NOTE | 2021-06-26 10:45 | Progress Note ---
Assessment and Plan COVID-19 breakthrough infection COVID-19 pneumonia Acute kidney injury possibly 2/2 prerenal/ATN, hypotension on underlying CKD Acute hypoxic respiratory failure Insulin-dependent type 2 diabetes- uncontrolled Elevated troponin Hypertension-controlled Hypothyroidism Protein calorie malnutrition Hypernatremia Plan Initiated on HD Sunday, HD#2 yesterday, no HD today, HD tomorrow. S/p Right IJ Vas catheter placement on 06/24/21 Assess need for HD on daily basis On levophed and vasopressin drips Renal US was negative for hydronephrosis On sodium bicarbonate drip Renally dose medications Strict I&O's daily Subjective Date of service: 06/26/21 Principal diagnosis: ARDS; Pneumonia; COVID-19 virus infection; TREMAINE; DM II; Morbid obesity Interval history: Intubated. Tolerated HD yesterday. Objective - Exam Narrative Exam: GE: Intubated HEENT: Normocephalic Neck: Supple Chest:Coarse BS BL CVS: RRR Abd: BS+ Ext: No cce Neuro:Sedated - Vital Signs Vital signs: Vital Signs - 12hr 06/25/21 06/25/21 06/25/21 22:50 23:00 23:10 Temperature Pulse Rate 93 H 96 H 98 H Respiratory 25 H 22 24 Rate Blood Pressure 121/64 121/64 121/64 O2 Sat by Pulse 99 99 98 Oximetry 06/25/21 06/25/21 06/25/21 23:20 23:30 23:40 Temperature Pulse Rate 99 H 98 H 101 H Respiratory 25 H 25 H 23 Rate Blood Pressure 111/58 112/55 149/73 O2 Sat by Pulse 99 98 99 Oximetry 06/25/21 06/26/21 06/26/21 23:50 00:00 00:10 Temperature 97.8 F Pulse Rate 99 H 98 H 95 H Respiratory 25 H 24 25 H Rate Blood Pressure 105/57 101/57 101/57 O2 Sat by Pulse 99 98 99 Oximetry 06/26/21 06/26/21 06/26/21 00:20 00:30 00:40 Temperature Pulse Rate 101 H 94 H 93 H Respiratory 25 H 23 25 H Rate Blood Pressure 110/55 107/56 107/56 O2 Sat by Pulse 100 99 99 Oximetry 06/26/21 06/26/21 06/26/21 00:41 00:50 01:00 Temperature Pulse Rate 92 H 94 H 90 Respiratory 25 H 25 H Rate Blood Pressure 107/56 112/55 115/54 O2 Sat by Pulse 99 99 99 Oximetry 06/26/21 06/26/21 06/26/21 01:10 01:20 01:30 Temperature Pulse Rate 91 H 91 H 88 Respiratory 25 H 25 H 25 H Rate Blood Pressure 115/54 113/54 112/54 O2 Sat by Pulse 99 99 100 Oximetry 06/26/21 06/26/21 06/26/21 01:40 01:50 02:00 Temperature Pulse Rate 89 89 89 Respiratory 25 H 25 H 25 H Rate Blood Pressure 112/54 122/58 115/56 O2 Sat by Pulse 100 100 100 Oximetry 06/26/21 06/26/21 06/26/21 02:10 02:20 02:30 Temperature Pulse Rate 98 H 87 88 Respiratory 25 H 25 H 25 H Rate Blood Pressure 112/54 111/57 111/59 O2 Sat by Pulse 100 100 100 Oximetry 06/26/21 06/26/21 06/26/21 02:40 02:51 03:00 Temperature Pulse Rate 94 H 94 H 89 Respiratory 25 H 26 H 26 H Rate Blood Pressure 111/59 107/59 O2 Sat by Pulse 100 98 99 Oximetry 06/26/21 06/26/21 06/26/21 03:11 03:21 03:30 Temperature Pulse Rate 86 92 H 92 H Respiratory 25 H 25 H 25 H Rate Blood Pressure 107/59 105/56 100/54 O2 Sat by Pulse 99 99 98 Oximetry 06/26/21 06/26/21 06/26/21 03:41 03:51 04:00 Temperature 96.9 F L Pulse Rate 88 92 H 89 Respiratory 25 H 25 H 25 H Rate Blood Pressure 100/54 103/55 101/54 O2 Sat by Pulse 99 99 99 Oximetry 06/26/21 06/26/21 06/26/21 04:11 04:21 04:30 Temperature Pulse Rate 89 88 85 Respiratory 25 H 25 H 25 H Rate Blood Pressure 101/54 109/56 104/56 O2 Sat by Pulse 99 99 100 Oximetry 06/26/21 06/26/21 06/26/21 04:41 04:51 05:00 Temperature Pulse Rate 85 88 88 Respiratory 25 H 25 H 25 H Rate Blood Pressure 104/56 94/58 84/57 O2 Sat by Pulse 100 100 100 Oximetry 06/26/21 06/26/21 06/26/21 05:11 05:21 05:30 Temperature Pulse Rate 88 87 87 Respiratory 25 H 25 H 25 H Rate Blood Pressure 84/57 107/61 111/59 O2 Sat by Pulse 100 100 100 Oximetry 06/26/21 06/26/21 06/26/21 05:41 05:51 06:00 Temperature Pulse Rate 78 79 80 Respiratory 25 H 25 H 25 H Rate Blood Pressure 111/59 111/53 115/55 O2 Sat by Pulse 99 99 99 Oximetry 06/26/21 06/26/21 06/26/21 06:11 06:21 06:30 Temperature Pulse Rate 80 86 85 Respiratory 25 H 25 H 25 H Rate Blood Pressure 115/55 123/60 119/57 O2 Sat by Pulse 99 99 99 Oximetry 06/26/21 06/26/21 06/26/21 06:41 06:51 07:00 Temperature Pulse Rate 84 85 84 Respiratory 25 H 25 H 25 H Rate Blood Pressure 123/60 125/63 123/58 O2 Sat by Pulse 99 97 98 Oximetry 06/26/21 06/26/21 07:11 08:00 Temperature Pulse Rate 82 88 Respiratory 25 H Rate Blood Pressure 119/57 97/47 O2 Sat by Pulse 98 96 Oximetry - Lab 06/26/21 07:00 06/26/21 10:00 Most recent lab results ABG pH 7.280 (7.320-7.450) L 06/25/21 21:00 ABG pCO2 56.5 mm Hg 06/22/21 21:22 ABG pO2 61.7 mm Hg (80.0-90.0) L 06/22/21 21:22 ABG HCO3 22.5 mmol/L (20.0-26.0) 06/22/21 21:22 ABG O2 Saturation 96.7 (0-100) 06/25/21 21:00 Calcium 8.7 mg/dL (8.4-10.2) D 06/26/21 07:00 Phosphorus 7.40 mg/dL (2.5-4.5) H 06/26/21 07:00 Magnesium 2.10 mg/dL (1.7-2.3) 06/26/21 07:00 Medications & Allergies - Medications Allergies/Adverse Reactions: Allergies latex Allergy (Verified 03/19/19 17:03) Unknown shellfish derived Allergy (Verified 03/19/19 17:03) Anaphylaxis strawberry Allergy (Verified 03/19/19 17:03) Anaphylaxis tomato Allergy (Verified 03/19/19 17:03) Anaphylaxis nuts Allergy (Uncoded 03/19/19 17:03) Anaphylaxis Home Medications: Home Medications Medication Instructions Recorded Confirmed Last Taken Type Albuterol Sulfate [Ventolin HFA] 2 puff IH Q4H PRN 01/29/14 06/11/21 02/01/15 History Levothyroxine (Nf) [Synthroid (Nf)] 275 mcg PO QAM 01/29/14 06/11/21 02/01/15 History Fluticasone/Salmeterol [Advair 1 each IH PRN PRN 01/26/15 06/11/21 02/02/15 10:00 History Diskus 250-50 mcg] Apixaban [Eliquis starter pack] 5 mg PO BID 09/13/19 06/11/21 Unknown History Insulin Aspart Prot/Insuln Asp 45 unit SUB-Q QAM 09/13/19 06/11/21 Unknown History [Novolog Mix 70-30 Flexpen] Insulin Glargine,Hum.rec.anlog 25 unit SQ HS 09/13/19 06/11/21 Unknown History [Basaglar Kwikpen U-100] Lovastatin [Altoprev] 20 mg PO DAILY 09/13/19 06/11/21 Unknown History Docusate Sodium [Colace CAP] 100 mg PO BID PRN #30 capsule 09/17/19 06/11/21 Unknown Rx Loratadine/Pseudoephedrine 1 each PO Q24HR #10 tablet 09/17/19 06/11/21 Unknown Rx [Claritin-D 24HR] Ondansetron [Zofran Odt] 4 mg PO Q8HR #20 tab.rapdis 09/17/19 06/11/21 Unknown Rx carvediloL [Coreg] 3.125 mg PO BID #60 tablet 09/17/19 06/11/21 Unknown Rx hydrALAZINE [Apresoline TAB] 25 mg PO Q8HR #90 tablet 09/17/19 06/11/21 Unknown Rx Active Medications: Generic Name Dose Route Start Last Admin Trade Name Freq PRN Reason Stop Dose Admin Acetaminophen 650 mg 06/07/21 21:41 06/24/21 11:45 Acetaminophen 325 Mg Tab PO 650 mg Q4H PRN Administration Pain MILD(1-3)/Fever >100.5/MARTÍNEZ Albumin Human 25 gm 06/24/21 14:55 Albumin Human 25% (25 Gm/100 Ml) Inj IV KORINA PRN Hypotension Albuterol 2 mg 06/23/21 09:00 Albuterol 2.5 Mg/3 Ml Nebu IH Q4HRT PRN Shortness Of Breath Lipase/Protease/Amylase 1 each 06/24/21 14:18 Lipase 10,500/Protease 25,000/Amylase 43,750 (Units) Dr Cap FEEDTUBE PRN PRN For Clogged Feeding Tube Ascorbic Acid 500 mg 06/22/21 22:00 06/26/21 09:55 Ascorbic Acid 500 Mg Tab PO 500 mg BID LEONOR Administration Atorvastatin Calcium 10 mg 06/08/21 10:00 06/26/21 09:55 Atorvastatin 10 Mg Tab PO 10 mg DAILY LEONOR Administration Dextrose 50 ml 06/08/21 12:04 06/20/21 12:16 Dextrose 50% In Water (25gm) 50 Ml Syringe IV 50 ml Q30MIN PRN Administration Hypoglycemia Protocol Docusate Sodium 100 mg 06/23/21 09:00 Docusate Sodium 100 Mg/10 Ml Oral Liqd PO BID PRN Constipation Famotidine 10 mg 06/22/21 22:00 06/26/21 09:55 Famotidine 20 Mg/2 Ml Inj IV 10 mg BID LEONOR Administration Fentanyl 50 mcg 06/22/21 13:07 06/22/21 21:09 Fentanyl 100 Mcg/2 Ml Inj IV 50 mcg Q10MIN PRN Administration ANALGESIA Fondaparinux 2.5 mg 06/26/21 10:00 06/26/21 09:56 Fondaparinux 2.5 Mg/0.5 Ml Inj SUB-Q 2.5 mg QDAY LEONOR Administration Hydrophilic Ointment 1 applic 06/22/21 13:07 Lip Therapy Vaseline TP Q2HR PRN Dry Lips Fentanyl Citrate 2,000 mcg in 100 mls @ 8.2 mls/hr 06/22/21 14:00 06/26/21 03:52 Fentanyl Drip Premix IV 2 mcg/kg/hr TITR LEONOR 16.4 mls/hr Administration Protocol 1 MCG/KG/HR NORepinephrine/NS 8 MG-250 ML 8 mg in 250 mls @ 3.75 mls/hr 06/22/21 15:00 06/25/21 21:05 Norepinephrine/Ns 8 Mg-250 Ml (Double Conc) IV 0 mcg/min TITRATE LEONOR 0 mls/hr Titration Protocol 2 MCG/MIN Cefepime HCl 2 gm in 100 mls @ 200 mls/hr 06/23/21 08:00 06/26/21 08:22 Cefepime/Ns 2 Gm/100 Ml IV 200 mls/hr Q24H LEONOR Administration Protocol Vasopressin 20 unit/ Sodium 101 mls @ 9.09 mls/hr 06/23/21 09:00 06/25/21 16:25 Chloride IV 0 units/min TITR LEONOR 0 mls/hr Titration Protocol 0.03 UNITS/MIN Sodium Chloride 500 mls @ 1 mls/hr 06/23/21 11:19 Nacl 0.9% 500 Ml IV DIRECT PRN ARTERIAL LINE FLUSH Lacosamide 100 mg/ Sodium 110 mls @ 100 mls/hr 06/23/21 15:00 06/26/21 03:43 Chloride IV 100 mls/hr Q12H LEONOR Administration Sodium Chloride 100 mls @ 999 mls/hr 06/25/21 06:00 Nacl 0.9% IV KORINA PRN Hypotension Sodium Chloride 100 mls @ 999 mls/hr 06/25/21 14:13 Nacl 0.9% IV KORINA PRN Hypotension Insulin Human Isoph/Insulin Regular 35 unit 06/25/21 17:00 06/26/21 08:23 Insulin Nph/Regular 70/30 Inj SUB-Q 35 unit BIDDIAB LEONOR Administration Insulin Human Regular 0 units 06/22/21 18:00 06/26/21 06:50 Insulin Regular, Human 100 Units/1 Ml SUB-Q 8 units Q6HR LEONOR Administration Protocol Levothyroxine Sodium 137.5 mcg 06/23/21 06:00 06/26/21 06:50 Levothyroxine 100 Mcg Inj IV 137.5 mcg DAILY@0600 LEONOR Administration Methylprednisolone Sodium Succinate 100 mg 06/21/21 16:00 06/26/21 08:22 Methylprednisolone Sod Succinate 125 Mg/2 Ml Inj IV 100 mg Q8H LEONOR Administration Midodrine 10 mg 06/22/21 15:00 06/26/21 08:22 Midodrine 5 Mg Tab PO 10 mg Q8H LEONOR Administration Multi-Ingred Cream/Lotion/Oil/Oint 1 applic 06/22/21 13:07 Mineral Oil/Petrolatum, White Ophth Oint 3.5 Gm OU Q4HR PRN Dry Eye(s) Ondansetron HCl 4 mg 06/07/21 21:41 06/20/21 22:15 Ondansetron 4 Mg/2 Ml Inj IV 4 mg Q8H PRN Administration Nausea And Vomiting Senna/Docusate Sodium 1 tab 06/22/21 22:00 06/25/21 22:56 Sennosides/Docusate Sodium 8.6/50 Mg Tab FEEDTUBE 1 tab BID LEONOR Administration Simple Syrup 15 ml 06/24/21 14:18 Simple Syrup 15 Ml FEEDTUBE PRN PRN Hypoglycemia Simple Syrup 30 ml 06/24/21 14:18 Simple Syrup 15 Ml FEEDTUBE PRN PRN Hypoglycemia Sodium Bicarbonate 325 mg 06/24/21 14:18 Sodium Bicarbonate 325 Mg Tab FEEDTUBE PRN PRN For Clogged Feeding Tube Sodium Chloride 10 ml 06/07/21 22:00 06/26/21 09:57 Sodium Chloride 0.9% 10 Ml Flush Syringe IV 10 ml BID LEONOR Administration Sodium Chloride 10 ml 06/07/21 21:41 Sodium Chloride 0.9% 10 Ml Flush Syringe IV PRN PRN LINE FLUSH Zinc Sulfate 220 mg 06/22/21 22:00 06/26/21 09:55 Zinc Sulfate 220 Mg Cap PO 220 mg BID LEONOR Administration
[2021-06-26 11:00] LABS: Calcium 8.3 mg/dL (8.4-10.2)
[2021-06-26] MEDS ORDERED: SODIUM CHLORIDE 0.9% 100 ML IV PRN (13:43)
--- NOTE | 2021-06-26 15:18 | Progress Note ---
Assessment and Plan Acute hypoxemic respiratory failure (ARDS) Coronavirus infection Pneumonia due to COVID-19 virus Acute kidney injury superimposed on CKD Hypertension Diabetes mellitus type 2, insulin dependent Hypothyroidism Morbid obesity - get CT brain non-contrast re: AMS +/- seizure (? ICH) - follow HIT assay - changed Arixtra to Eliquis re: TREMAINE (Holding now re: worsening thrombocytopenia) - continue HD/UF per nephrology prescription for toxin and volume clearance - hematology consultation is appropriate - continue care as below otherwise; - continue Keppra 500 mg IV q12h - follow EEG - neurology evaluation ongoing - continue to wean vaspressors for target MAP > 65 mmHg - continue daily SAT and SBT assessment as tolerated - continue to wean supplemental oxygen for target O2 sat's > 90% acutely - VAP bundle addressed - continue lung protective strategies - continue bronchodilators with pulmonary hygiene per RT - wean per pulmonary driven protocols otherwise - azotemia per nephrology recommendations - avoid nephrotoxins, renally dose all medications - continue to avoid benzodiazepine's, reduce the possibility of delirium - anti-infective's per ID rec's - prn analgesia per CPOT score - Maintenance of sleep-wake cycle, avoid delirium - enteral nutritional support at goal rate as tolerated - G.I. & VTE prophylaxis - PT/OT/ROM exercises - mobility protocols for pressure ulcer prophylaxis - Monitor hemodynamics closely - continue other care per attending / other consultants - discharge planning ongoing concurrently COVID SPECIFIC INTERVENTIONS - Remdesivir as per ID/Pulmonary developed protocols (not a candidate) - continue systemic steroids for severe COVID-19 infection empirically (will taper to 60 mg IV q8h) - follow repeat COVID tests results - zinc and vitamin C supplementation - Monitor inflammatory markers per facility protocol - ferritin, Ddimer, CRP - therapeutic anticoagulation per system Protocol based on d-dimer and clinical considerations - Continue contact and airborne isolation .... Re-evaluate in am & prn CONDITION: CRITICAL PROGNOSIS: GUARDED CODE STATUS: FULL CODE The high probability of a clinically significant, sudden or life-threatening deterioration of the [respiratory, cardiovascular, renal & neurologic] system(s) required my full and direct attention, intervention and personal management. The aggregate critical care time was [35] minutes without overlap. Time includes spent on; [x] Data Review and interpretation [x] Patient assessment and monitoring of vital signs [x] Documentation [x] Medication orders and management Subjective Date of service: 06/26/21 Principal diagnosis: ARDS; Pneumonia; COVID-19 virus infection; TREMAINE; DM II; Morbid obesity Interval history: Patient is seen today for: Acute hypoxemic respiratory failure (ARDS); Pneumonia; COVID-19 virus infection; TREMAINE on CKD; DM II; Morbid obesity Seen and examined at bedside; 24hour events reviewed; nursing and respiratory care staff consulted; no adverse overnight events reported to me; resting in bed; AMS is persistent; remains on 75% FiO2 but overall is more stable and currently off vasopressors; no gross bleeding; no emesis or overt aspiration and no high grade fevers Objective Vital Signs - 12hr 06/26/21 06/26/21 06/26/21 03:21 03:30 03:41 Temperature Pulse Rate 92 H 92 H 88 Pulse Rate [ From Monitor] Respiratory 25 H 25 H 25 H Rate Blood Pressure 105/56 100/54 100/54 O2 Sat by Pulse 99 98 99 Oximetry 06/26/21 06/26/21 06/26/21 03:51 04:00 04:11 Temperature 96.9 F L Pulse Rate 92 H 89 89 Pulse Rate [ From Monitor] Respiratory 25 H 25 H 25 H Rate Blood Pressure 103/55 101/54 101/54 O2 Sat by Pulse 99 99 99 Oximetry 06/26/21 06/26/21 06/26/21 04:21 04:30 04:41 Temperature Pulse Rate 88 85 85 Pulse Rate [ From Monitor] Respiratory 25 H 25 H 25 H Rate Blood Pressure 109/56 104/56 104/56 O2 Sat by Pulse 99 100 100 Oximetry 06/26/21 06/26/21 06/26/21 04:51 05:00 05:11 Temperature Pulse Rate 88 88 88 Pulse Rate [ From Monitor] Respiratory 25 H 25 H 25 H Rate Blood Pressure 94/58 84/57 84/57 O2 Sat by Pulse 100 100 100 Oximetry 06/26/21 06/26/21 06/26/21 05:21 05:30 05:41 Temperature Pulse Rate 87 87 78 Pulse Rate [ From Monitor] Respiratory 25 H 25 H 25 H Rate Blood Pressure 107/61 111/59 111/59 O2 Sat by Pulse 100 100 99 Oximetry 06/26/21 06/26/21 06/26/21 05:51 06:00 06:11 Temperature Pulse Rate 79 80 80 Pulse Rate [ From Monitor] Respiratory 25 H 25 H 25 H Rate Blood Pressure 111/53 115/55 115/55 O2 Sat by Pulse 99 99 99 Oximetry 06/26/21 06/26/21 06/26/21 06:21 06:30 06:41 Temperature Pulse Rate 86 85 84 Pulse Rate [ From Monitor] Respiratory 25 H 25 H 25 H Rate Blood Pressure 123/60 119/57 123/60 O2 Sat by Pulse 99 99 99 Oximetry 06/26/21 06/26/21 06/26/21 06:51 07:00 07:11 Temperature Pulse Rate 85 84 82 Pulse Rate [ From Monitor] Respiratory 25 H 25 H 25 H Rate Blood Pressure 125/63 123/58 119/57 O2 Sat by Pulse 97 98 98 Oximetry 06/26/21 06/26/21 06/26/21 07:21 07:30 07:41 Temperature Pulse Rate 84 83 82 Pulse Rate [ From Monitor] Respiratory 25 H 25 H 25 H Rate Blood Pressure 114/54 113/56 113/56 O2 Sat by Pulse 99 99 99 Oximetry 06/26/21 06/26/21 06/26/21 07:51 08:00 08:11 Temperature Pulse Rate 82 81 81 Pulse Rate [ 86 From Monitor] Respiratory 25 H 25 H 25 H Rate Blood Pressure 112/56 109/55 109/55 O2 Sat by Pulse 99 99 99 Oximetry 06/26/21 06/26/21 06/26/21 08:21 08:30 08:41 Temperature Pulse Rate 81 82 81 Pulse Rate [ From Monitor] Respiratory 25 H 25 H 25 H Rate Blood Pressure 114/56 114/56 114/56 O2 Sat by Pulse 99 99 99 Oximetry 06/26/21 06/26/21 06/26/21 08:51 09:01 09:11 Temperature Pulse Rate 82 100 H 86 Pulse Rate [ From Monitor] Respiratory 25 H 19 25 H Rate Blood Pressure 121/62 163/93 114/56 O2 Sat by Pulse 98 95 96 Oximetry 06/26/21 06/26/21 06/26/21 09:21 09:30 09:41 Temperature Pulse Rate 88 89 86 Pulse Rate [ From Monitor] Respiratory 25 H 25 H 25 H Rate Blood Pressure 121/65 116/60 116/60 O2 Sat by Pulse 96 96 96 Oximetry 06/26/21 06/26/21 06/26/21 09:51 10:00 10:11 Temperature Pulse Rate 90 88 88 Pulse Rate [ From Monitor] Respiratory 25 H 24 25 H Rate Blood Pressure 105/55 110/57 110/57 O2 Sat by Pulse 96 96 96 Oximetry 06/26/21 06/26/21 06/26/21 10: 10:30 10:41 Temperature Pulse Rate 88 87 87 Pulse Rate [ From Monitor] Respiratory 25 H 25 H 25 H Rate Blood Pressure 100/51 102/51 102/51 O2 Sat by Pulse 96 97 97 Oximetry 06/26/21 06/26/21 06/26/21 10:51 11:00 11:11 Temperature Pulse Rate 86 85 86 Pulse Rate [ From Monitor] Respiratory 25 H 25 H 25 H Rate Blood Pressure 120/60 117/57 102/51 O2 Sat by Pulse 96 97 97 Oximetry 06/26/21 12:00 Temperature Pulse Rate 99 H Pulse Rate [ From Monitor] Respiratory Rate Blood Pressure 107/53 O2 Sat by Pulse 96 Oximetry Constitutional: appears uncomfortable, other (Morbidly Obese female with mildly increased work of breathing on MVS) Eyes: non-icteric ENT: oropharynx moist, other (ETT 24 cm SHEREEN) Neck: supple, no lymphadenopathy, other (large neck circumference) Effort: mildly labored Ascultation: Bilateral: diminished breath sounds, rhonchi Percussion: Bilateral: not dull Cardiovascular: regular rate and rhythm Gastrointestinal: normoactive bowel sounds, soft, non-tender, non-distended (protuberant) Integumentary: rash (stasis dermatitis- type) Extremities: no cyanosis, no edema, pulses normal, no ischemia or petechiae Neurologic: non-focal exam (grossly), pupils equal and round, unable to assess Psychiatric: other (unable to assess re: AMS) CBC and BMP: 06/27/21 06:40 06/27/21 06:40 ABG, PT/INR, D-dimer: ABG ABG pH 7.268 (7.320-7.450) L 06/26/21 05:14 POC ABG pCO2 60.2 mmHg (32.0-48.0) H 06/26/21 05:14 ABG pCO2 56.5 mm Hg 06/22/21 21:22 POC ABG pO2 113.7 mmHg (83-108) H 06/26/21 05:14 ABG pO2 61.7 mm Hg (80.0-90.0) L 06/22/21 21:22 POC ABG HCO3 26.9 06/26/21 05:14 ABG O2 Saturation 98.0 (0-100) 06/26/21 05:14 PT/INR, D-dimer PT 20.2 Sec. (12.2-14.9) H 06/25/21 09:05 INR 1.68 (0.87-1.13) H 06/25/21 09:05 D-Dimer 1363.54 ng/mlDDU (0-234) H 06/26/21 10:00 Abnormal lab findings: Abnormal Labs 06/07/21 06/07/21 06/07/21 19:11 19:11 19:11 WBC 11.5 H RBC Hgb Hct RDW Plt Count Lymph % (Auto) 6.5 L Lymph # (Auto) 0.8 L Seg Neutrophils % 89.9 H Seg Neuts % (Manual) Lymphocytes % (Manual) Nucleated RBC % Seg Neutrophils # 10.4 H Seg Neutrophils # Man Lymphocytes # (Manual) Monocytes # (Manual) PT INR APTT D-Dimer 5334.05 H ABG pH POC ABG pCO2 POC ABG pO2 ABG pO2 ABG O2 Saturation ABG Base Excess ABG Hemoglobin ABG Oxyhemoglobin ABG Methemoglobin ABG Sodium ABG Potassium ABG Chloride ABG Glucose Oxyhemoglobin Carboxyhemoglobin Sodium Potassium Chloride Carbon Dioxide BUN 67 H Creatinine 4.8 H Glucose 244 H POC Glucose Hemoglobin A1c Calcium Phosphorus Magnesium Ferritin Lactate Dehydrogenase 796 H Troponin T 0.043 H C-Reactive Protein 19.60 H Total Protein 8.4 H Albumin 3.1 L Hctau-3-Oycctpmit Ymjqn-2-Nofbuboyy Beta Globulins PEP Interpretation Triglycerides 209 H HDL Cholesterol 35 L Arterial Blood Glucose Arterial Blood Ionized Calcium Urine WBC (Auto) Coronavirus (PCR) 06/07/21 06/07/21 06/08/21 19:11 19:11 03:04 WBC RBC Hgb Hct RDW Plt Count Lymph % (Auto) Lymph # (Auto) Seg Neutrophils % Seg Neuts % (Manual) Lymphocytes % (Manual) Nucleated RBC % Seg Neutrophils # Seg Neutrophils # Man Lymphocytes # (Manual) Monocytes # (Manual) PT INR APTT D-Dimer ABG pH POC ABG pCO2 POC ABG pO2 ABG pO2 ABG O2 Saturation ABG Base Excess ABG Hemoglobin ABG Oxyhemoglobin ABG Methemoglobin ABG Sodium ABG Potassium ABG Chloride ABG Glucose Oxyhemoglobin Carboxyhemoglobin Sodium Potassium Chloride Carbon Dioxide BUN Creatinine Glucose POC Glucose Hemoglobin A1c 9.5 H Calcium Phosphorus Magnesium Ferritin 1230.0 H Lactate Dehydrogenase Troponin T 0.031 H D C-Reactive Protein Total Protein Albumin Pspoy-9-Njfshbreo Vhkpw-3-Eydnrtfdr Beta Globulins PEP Interpretation Triglycerides HDL Cholesterol Arterial Blood Glucose Arterial Blood Ionized Calcium Urine WBC (Auto) Coronavirus (PCR) 06/08/21 06/08/21 06/08/21 03:44 03:44 08:21 WBC 12.9 H RBC Hgb Hct RDW Plt Count Lymph % (Auto) Lymph # (Auto) Seg Neutrophils % Seg Neuts % (Manual) 95.0 H Lymphocytes % (Manual) 3.0 L Nucleated RBC % Seg Neutrophils # Seg Neutrophils # Man 12.3 H Lymphocytes # (Manual) 0.4 L Monocytes # (Manual) PT INR APTT D-Dimer ABG pH POC ABG pCO2 POC ABG pO2 ABG pO2 ABG O2 Saturation ABG Base Excess ABG Hemoglobin ABG Oxyhemoglobin ABG Methemoglobin ABG Sodium ABG Potassium ABG Chloride ABG Glucose Oxyhemoglobin Carboxyhemoglobin Sodium Potassium Chloride Carbon Dioxide 20 L D BUN 68 H Creatinine 4.7 H Glucose 218 H POC Glucose 273 H Hemoglobin A1c Calcium Phosphorus Magnesium Ferritin Lactate Dehydrogenase Troponin T C-Reactive Protein Total Protein Albumin 3.4 L Qrddx-3-Rysicmhnq Otsts-4-Udfwtddjp Beta Globulins PEP Interpretation Triglycerides HDL Cholesterol Arterial Blood Glucose Arterial Blood Ionized Calcium Urine WBC (Auto) Coronavirus (PCR) 06/08/21 06/08/21 06/08/21 08:30 11:00 17:29 WBC RBC Hgb Hct RDW Plt Count Lymph % (Auto) Lymph # (Auto) Seg Neutrophils % Seg Neuts % (Manual) Lymphocytes % (Manual) Nucleated RBC % Seg Neutrophils # Seg Neutrophils # Man Lymphocytes # (Manual) Monocytes # (Manual) PT INR APTT D-Dimer ABG pH POC ABG pCO2 POC ABG pO2 ABG pO2 ABG O2 Saturation ABG Base Excess ABG Hemoglobin ABG Oxyhemoglobin ABG Methemoglobin ABG Sodium ABG Potassium ABG Chloride ABG Glucose Oxyhemoglobin Carboxyhemoglobin Sodium Potassium Chloride Carbon Dioxide BUN Creatinine Glucose POC Glucose 239 H 220 H Hemoglobin A1c Calcium Phosphorus Magnesium Ferritin Lactate Dehydrogenase Troponin T C-Reactive Protein Total Protein Albumin Wewlx-6-Zzmffdcuj Oaikx-1-Glgiojhms Beta Globulins PEP Interpretation Triglycerides HDL Cholesterol Arterial Blood Glucose Arterial Blood Ionized Calcium Urine WBC (Auto) Coronavirus (PCR) Positive A 06/08/21 06/09/21 06/09/21 21:09 08:07 08:42 WBC 14.7 H RBC 5.28 H Hgb 14.9 H Hct 45.0 H D RDW Plt Count Lymph % (Auto) 4.9 L Lymph # (Auto) 0.7 L Seg Neutrophils % 90.0 H Seg Neuts % (Manual) Lymphocytes % (Manual) Nucleated RBC % Seg Neutrophils # 13.2 H Seg Neutrophils # Man Lymphocytes # (Manual) Monocytes # (Manual) PT INR APTT D-Dimer ABG pH POC ABG pCO2 POC ABG pO2 ABG pO2 ABG O2 Saturation ABG Base Excess ABG Hemoglobin ABG Oxyhemoglobin ABG Methemoglobin ABG Sodium ABG Potassium ABG Chloride ABG Glucose Oxyhemoglobin Carboxyhemoglobin Sodium Potassium Chloride Carbon Dioxide BUN Creatinine Glucose POC Glucose 242 H 230 H Hemoglobin A1c Calcium Phosphorus Magnesium Ferritin Lactate Dehydrogenase Troponin T C-Reactive Protein Total Protein Albumin Jrdeq-9-Nbllqmmkv Vllah-2-Jnpieknnx Beta Globulins PEP Interpretation Triglycerides HDL Cholesterol Arterial Blood Glucose Arterial Blood Ionized Calcium Urine WBC (Auto) Coronavirus (PCR) 06/09/21 06/09/21 06/09/21 08:42 12:05 12:19 WBC RBC Hgb Hct RDW Plt Count Lymph % (Auto) Lymph # (Auto) Seg Neutrophils % Seg Neuts % (Manual) Lymphocytes % (Manual) Nucleated RBC % Seg Neutrophils # Seg Neutrophils # Man Lymphocytes # (Manual) Monocytes # (Manual) PT INR APTT D-Dimer ABG pH POC ABG pCO2 POC ABG pO2 71.4 L ABG pO2 ABG O2 Saturation ABG Base Excess ABG Hemoglobin ABG Oxyhemoglobin 92.9 L ABG Methemoglobin ABG Sodium ABG Potassium ABG Chloride 109.0 H ABG Glucose 287 H Oxyhemoglobin Carboxyhemoglobin 0.4 L Sodium Potassium Chloride Carbon Dioxide 17 L BUN 74 H Creatinine 3.7 H Glucose 259 H POC Glucose 274 H Hemoglobin A1c Calcium 8.3 L Phosphorus Magnesium Ferritin Lactate Dehydrogenase Troponin T C-Reactive Protein Total Protein Albumin Jmvoo-7-Vehkaulls Amdqm-8-Dffdnkbcu Beta Globulins PEP Interpretation Triglycerides HDL Cholesterol Arterial Blood Glucose 287 H Arterial Blood Ionized Calcium Urine WBC (Auto) Coronavirus (PCR) 06/09/21 06/09/21 06/10/21 16:59 21:06 08:25 WBC RBC Hgb Hct RDW Plt Count Lymph % (Auto) Lymph # (Auto) Seg Neutrophils % Seg Neuts % (Manual) Lymphocytes % (Manual) Nucleated RBC % Seg Neutrophils # Seg Neutrophils # Man Lymphocytes # (Manual) Monocytes # (Manual) PT INR APTT D-Dimer ABG pH POC ABG pCO2 POC ABG pO2 ABG pO2 ABG O2 Saturation ABG Base Excess ABG Hemoglobin ABG Oxyhemoglobin ABG Methemoglobin ABG Sodium ABG Potassium ABG Chloride ABG Glucose Oxyhemoglobin Carboxyhemoglobin Sodium Potassium Chloride Carbon Dioxide BUN Creatinine Glucose POC Glucose 268 H 263 H 280 H Hemoglobin A1c Calcium Phosphorus Magnesium Ferritin Lactate Dehydrogenase Troponin T C-Reactive Protein Total Protein Albumin Cwrce-4-Tfgudhbka Tmnrm-6-Sxhjsctps Beta Globulins PEP Interpretation Triglycerides HDL Cholesterol Arterial Blood Glucose Arterial Blood Ionized Calcium Urine WBC (Auto) Coronavirus (PCR) 06/10/21 06/10/21 06/10/21 12:07 15:38 21:04 WBC RBC Hgb Hct RDW Plt Count Lymph % (Auto) Lymph # (Auto) Seg Neutrophils % Seg Neuts % (Manual) Lymphocytes % (Manual) Nucleated RBC % Seg Neutrophils # Seg Neutrophils # Man Lymphocytes # (Manual) Monocytes # (Manual) PT INR APTT D-Dimer ABG pH POC ABG pCO2 POC ABG pO2 ABG pO2 ABG O2 Saturation ABG Base Excess ABG Hemoglobin ABG Oxyhemoglobin ABG Methemoglobin ABG Sodium ABG Potassium ABG Chloride ABG Glucose Oxyhemoglobin Carboxyhemoglobin Sodium Potassium Chloride Carbon Dioxide BUN Creatinine Glucose POC Glucose 247 H 269 H 195 H Hemoglobin A1c Calcium Phosphorus Magnesium Ferritin Lactate Dehydrogenase Troponin T C-Reactive Protein Total Protein Albumin Xntye-7-Xyclvnqev Klsor-7-Xtynrhkas Beta Globulins PEP Interpretation Triglycerides HDL Cholesterol Arterial Blood Glucose Arterial Blood Ionized Calcium Urine WBC (Auto) Coronavirus (PCR) 06/10/21 06/10/21 06/10/21 23:14 23:14 23:14 WBC RBC Hgb Hct RDW 15.3 H Plt Count Lymph % (Auto) Lymph # (Auto) Seg Neutrophils % Seg Neuts % (Manual) 93.0 H Lymphocytes % (Manual) 2.0 L Nucleated RBC % 3.0 H Seg Neutrophils # Seg Neutrophils # Man 10.2 H Lymphocytes # (Manual) 0.2 L Monocytes # (Manual) PT INR APTT D-Dimer ABG pH POC ABG pCO2 POC ABG pO2 ABG pO2 ABG O2 Saturation ABG Base Excess ABG Hemoglobin ABG Oxyhemoglobin ABG Methemoglobin ABG Sodium ABG Potassium ABG Chloride ABG Glucose Oxyhemoglobin Carboxyhemoglobin Sodium 148 H D Potassium Chloride 111.7 H Carbon Dioxide 20 L BUN 70 H Creatinine 3.2 H Glucose 186 H POC Glucose Hemoglobin A1c Calcium Phosphorus Magnesium Ferritin Lactate Dehydrogenase Troponin T C-Reactive Protein Total Protein Albumin 2.6 L Qjzck-6-Qwwemtrty 0.5 H Uxjkk-4-Omopdltie 1.7 H Beta Globulins 0.6 H PEP Interpretation see below H Triglycerides HDL Cholesterol Arterial Blood Glucose Arterial Blood Ionized Calcium Urine WBC (Auto) Coronavirus (PCR) 06/10/21 06/10/21 06/10/21 23:14 23:14 23:14 WBC RBC Hgb Hct RDW Plt Count Lymph % (Auto) Lymph # (Auto) Seg Neutrophils % Seg Neuts % (Manual) Lymphocytes % (Manual) Nucleated RBC % Seg Neutrophils # Seg Neutrophils # Man Lymphocytes # (Manual) Monocytes # (Manual) PT INR APTT D-Dimer > 79491 H ABG pH POC ABG pCO2 POC ABG pO2 ABG pO2 ABG O2 Saturation ABG Base Excess ABG Hemoglobin ABG Oxyhemoglobin ABG Methemoglobin ABG Sodium ABG Potassium ABG Chloride ABG Glucose Oxyhemoglobin Carboxyhemoglobin Sodium Potassium Chloride Carbon Dioxide BUN Creatinine Glucose POC Glucose Hemoglobin A1c Calcium Phosphorus Magnesium 2.50 H Ferritin 1319.0 H Lactate Dehydrogenase 606 H Troponin T C-Reactive Protein Total Protein Albumin Etgjx-7-Wlscquxtb Cljbu-3-Ilijwxylz Beta Globulins PEP Interpretation Triglycerides HDL Cholesterol Arterial Blood Glucose Arterial Blood Ionized Calcium Urine WBC (Auto) Coronavirus (PCR) 06/11/21 06/11/21 06/11/21 07:34 10:57 10:57 WBC RBC Hgb Hct RDW Plt Count Lymph % (Auto) Lymph # (Auto) Seg Neutrophils % Seg Neuts % (Manual) Lymphocytes % (Manual) Nucleated RBC % Seg Neutrophils # Seg Neutrophils # Man Lymphocytes # (Manual) Monocytes # (Manual) PT INR APTT D-Dimer > 67775 H ABG pH POC ABG pCO2 POC ABG pO2 ABG pO2 ABG O2 Saturation ABG Base Excess ABG Hemoglobin ABG Oxyhemoglobin ABG Methemoglobin ABG Sodium ABG Potassium ABG Chloride ABG Glucose Oxyhemoglobin Carboxyhemoglobin Sodium Potassium Chloride Carbon Dioxide BUN Creatinine Glucose POC Glucose 169 H Hemoglobin A1c Calcium Phosphorus Magnesium Ferritin 1300.0 H Lactate Dehydrogenase Troponin T C-Reactive Protein Total Protein Albumin Okayb-6-Lnhffuzym Ceaqx-0-Dgdkepwvs Beta Globulins PEP Interpretation Triglycerides HDL Cholesterol Arterial Blood Glucose Arterial Blood Ionized Calcium Urine WBC (Auto) Coronavirus (PCR) 06/11/21 06/11/21 06/11/21 10:58 10:58 11:49 WBC 11.3 H RBC Hgb Hct RDW 15.3 H Plt Count Lymph % (Auto) Lymph # (Auto) Seg Neutrophils % Seg Neuts % (Manual) 88.0 H Lymphocytes % (Manual) 6.0 L Nucleated RBC % Seg Neutrophils # Seg Neutrophils # Man 9.9 H Lymphocytes # (Manual) 0.7 L Monocytes # (Manual) PT INR APTT D-Dimer ABG pH POC ABG pCO2 POC ABG pO2 ABG pO2 ABG O2 Saturation ABG Base Excess ABG Hemoglobin ABG Oxyhemoglobin ABG Methemoglobin ABG Sodium ABG Potassium ABG Chloride ABG Glucose Oxyhemoglobin Carboxyhemoglobin Sodium 150 H Potassium 3.4 L Chloride 114.8 H Carbon Dioxide 21 L BUN 65 H Creatinine 2.9 H Glucose 180 H POC Glucose 191 H Hemoglobin A1c Calcium Phosphorus Magnesium 2.50 H Ferritin Lactate Dehydrogenase Troponin T C-Reactive Protein 1.90 H Total Protein Albumin Llbpx-4-Bnkhuxrxw Haoyp-1-Uhlvhxeng Beta Globulins PEP Interpretation Triglycerides HDL Cholesterol Arterial Blood Glucose Arterial Blood Ionized Calcium Urine WBC (Auto) Coronavirus (PCR) 06/11/21 06/11/21 06/12/21 15:49 21:16 04:22 WBC RBC Hgb Hct RDW Plt Count Lymph % (Auto) Lymph # (Auto) Seg Neutrophils % Seg Neuts % (Manual) Lymphocytes % (Manual) Nucleated RBC % Seg Neutrophils # Seg Neutrophils # Man Lymphocytes # (Manual) Monocytes # (Manual) PT INR APTT D-Dimer ABG pH 7.318 L POC ABG pCO2 POC ABG pO2 ABG pO2 51.5 L ABG O2 Saturation 86.9 L ABG Base Excess -5.6 L ABG Hemoglobin ABG Oxyhemoglobin ABG Methemoglobin ABG Sodium ABG Potassium ABG Chloride ABG Glucose Oxyhemoglobin 85.5 L Carboxyhemoglobin Sodium Potassium Chloride Carbon Dioxide BUN Creatinine Glucose POC Glucose 185 H 200 H Hemoglobin A1c Calcium Phosphorus Magnesium Ferritin Lactate Dehydrogenase Troponin T C-Reactive Protein Total Protein Albumin Laacq-5-Ctlkutaqe Xvikj-2-Ukddzixgy Beta Globulins PEP Interpretation Triglycerides HDL Cholesterol Arterial Blood Glucose Arterial Blood Ionized Calcium Urine WBC (Auto) Coronavirus (PCR) 06/12/21 06/12/21 06/12/21 07:41 08:31 08:31 WBC 12.4 H RBC Hgb Hct RDW 15.3 H Plt Count Lymph % (Auto) 8.5 L Lymph # (Auto) 1.1 L Seg Neutrophils % 88.1 H Seg Neuts % (Manual) Lymphocytes % (Manual) Nucleated RBC % Seg Neutrophils # 10.9 H Seg Neutrophils # Man Lymphocytes # (Manual) Monocytes # (Manual) PT INR APTT D-Dimer ABG pH POC ABG pCO2 POC ABG pO2 ABG pO2 ABG O2 Saturation ABG Base Excess ABG Hemoglobin ABG Oxyhemoglobin ABG Methemoglobin ABG Sodium ABG Potassium ABG Chloride ABG Glucose Oxyhemoglobin Carboxyhemoglobin Sodium 151 H Potassium Chloride 117.3 H Carbon Dioxide 21 L BUN 61 H Creatinine 2.5 H Glucose 165 H POC Glucose 165 H Hemoglobin A1c Calcium 8.3 L Phosphorus Magnesium Ferritin Lactate Dehydrogenase Troponin T C-Reactive Protein Total Protein Albumin Fkpwm-9-Pdmzmdshw Yyzhv-8-Akbepuend Beta Globulins PEP Interpretation Triglycerides HDL Cholesterol Arterial Blood Glucose Arterial Blood Ionized Calcium Urine WBC (Auto) Coronavirus (PCR) 06/12/21 06/12/21 06/12/21 08:31 10:32 15:47 WBC RBC Hgb Hct RDW Plt Count Lymph % (Auto) Lymph # (Auto) Seg Neutrophils % Seg Neuts % (Manual) Lymphocytes % (Manual) Nucleated RBC % Seg Neutrophils # Seg Neutrophils # Man Lymphocytes # (Manual) Monocytes # (Manual) PT INR APTT D-Dimer ABG pH POC ABG pCO2 POC ABG pO2 ABG pO2 ABG O2 Saturation ABG Base Excess ABG Hemoglobin ABG Oxyhemoglobin ABG Methemoglobin ABG Sodium ABG Potassium ABG Chloride ABG Glucose Oxyhemoglobin Carboxyhemoglobin Sodium Potassium Chloride Carbon Dioxide BUN Creatinine Glucose POC Glucose 156 H 176 H Hemoglobin A1c Calcium Phosphorus Magnesium 2.50 H Ferritin Lactate Dehydrogenase Troponin T C-Reactive Protein Total Protein Albumin Qhgmn-8-Sykwttphl Lqdgc-9-Rsydcuekf Beta Globulins PEP Interpretation Triglycerides HDL Cholesterol Arterial Blood Glucose Arterial Blood Ionized Calcium Urine WBC (Auto) Coronavirus (PCR) 06/12/21 06/13/21 06/13/21 21:50 07:42 07:42 WBC 14.1 H RBC Hgb Hct RDW 15.3 H Plt Count Lymph % (Auto) Lymph # (Auto) Seg Neutrophils % Seg Neuts % (Manual) 87.0 H Lymphocytes % (Manual) 7.0 L Nucleated RBC % 3.0 H Seg Neutrophils # Seg Neutrophils # Man 12.3 H Lymphocytes # (Manual) 1.0 L Monocytes # (Manual) PT INR APTT D-Dimer ABG pH POC ABG pCO2 POC ABG pO2 ABG pO2 ABG O2 Saturation ABG Base Excess ABG Hemoglobin ABG Oxyhemoglobin ABG Methemoglobin ABG Sodium ABG Potassium ABG Chloride ABG Glucose Oxyhemoglobin Carboxyhemoglobin Sodium 151 H Potassium 3.5 L Chloride 116.0 H Carbon Dioxide BUN 61 H Creatinine 2.3 H Glucose 135 H POC Glucose 165 H Hemoglobin A1c Calcium Phosphorus Magnesium 2.50 H Ferritin Lactate Dehydrogenase Troponin T C-Reactive Protein Total Protein Albumin Muxyc-4-Prvuevnjk Cftnk-5-Hgdeaeasa Beta Globulins PEP Interpretation Triglycerides HDL Cholesterol Arterial Blood Glucose Arterial Blood Ionized Calcium Urine WBC (Auto) Coronavirus (PCR) 06/13/21 06/13/21 06/13/21 08:10 11:10 18:15 WBC RBC Hgb Hct RDW Plt Count Lymph % (Auto) Lymph # (Auto) Seg Neutrophils % Seg Neuts % (Manual) Lymphocytes % (Manual) Nucleated RBC % Seg Neutrophils # Seg Neutrophils # Man Lymphocytes # (Manual) Monocytes # (Manual) PT INR APTT D-Dimer ABG pH POC ABG pCO2 POC ABG pO2 ABG pO2 ABG O2 Saturation ABG Base Excess ABG Hemoglobin ABG Oxyhemoglobin ABG Methemoglobin ABG Sodium ABG Potassium ABG Chloride ABG Glucose Oxyhemoglobin Carboxyhemoglobin Sodium Potassium Chloride Carbon Dioxide BUN Creatinine Glucose POC Glucose 118 H 139 H 179 H Hemoglobin A1c Calcium Phosphorus Magnesium Ferritin Lactate Dehydrogenase Troponin T C-Reactive Protein Total Protein Albumin Jmknq-4-Ghsvxxedu Aiycv-0-Yeqzoratt Beta Globulins PEP Interpretation Triglycerides HDL Cholesterol Arterial Blood Glucose Arterial Blood Ionized Calcium Urine WBC (Auto) Coronavirus (PCR) 06/13/21 06/13/21 06/14/21 21:54 23:27 04:42 WBC 12.8 H RBC Hgb Hct RDW 15.3 H Plt Count Lymph % (Auto) Lymph # (Auto) Seg Neutrophils % Seg Neuts % (Manual) 92.0 H Lymphocytes % (Manual) 1.0 L Nucleated RBC % 2.0 H Seg Neutrophils # Seg Neutrophils # Man 11.8 H Lymphocytes # (Manual) 0.1 L Monocytes # (Manual) PT INR APTT D-Dimer ABG pH POC ABG pCO2 POC ABG pO2 ABG pO2 ABG O2 Saturation ABG Base Excess ABG Hemoglobin ABG Oxyhemoglobin ABG Methemoglobin ABG Sodium ABG Potassium ABG Chloride ABG Glucose Oxyhemoglobin Carboxyhemoglobin Sodium 152 H Potassium Chloride 116.3 H Carbon Dioxide 21 L BUN 67 H Creatinine 2.5 H Glucose 212 H POC Glucose 193 H Hemoglobin A1c Calcium Phosphorus Magnesium Ferritin Lactate Dehydrogenase Troponin T C-Reactive Protein Total Protein Albumin Nyhwv-8-Jfurakqak Qwwao-3-Obtrzjkwc Beta Globulins PEP Interpretation Triglycerides HDL Cholesterol Arterial Blood Glucose Arterial Blood Ionized Calcium Urine WBC (Auto) Coronavirus (PCR) 06/14/21 06/14/21 06/14/21 04:42 04:42 07:33 WBC RBC Hgb Hct RDW Plt Count Lymph % (Auto) Lymph # (Auto) Seg Neutrophils % Seg Neuts % (Manual) Lymphocytes % (Manual) Nucleated RBC % Seg Neutrophils # Seg Neutrophils # Man Lymphocytes # (Manual) Monocytes # (Manual) PT INR APTT D-Dimer ABG pH POC ABG pCO2 POC ABG pO2 ABG pO2 ABG O2 Saturation ABG Base Excess ABG Hemoglobin ABG Oxyhemoglobin ABG Methemoglobin ABG Sodium ABG Potassium ABG Chloride ABG Glucose Oxyhemoglobin Carboxyhemoglobin Sodium 152 H Potassium Chloride 115.3 H Carbon Dioxide BUN 68 H Creatinine 2.5 H Glucose 188 H POC Glucose 173 H Hemoglobin A1c Calcium Phosphorus Magnesium 2.40 H Ferritin Lactate Dehydrogenase Troponin T C-Reactive Protein Total Protein Albumin Uelmy-2-Hohpmwtqw Xkjxn-7-Qncxmqmbi Beta Globulins PEP Interpretation Triglycerides HDL Cholesterol Arterial Blood Glucose Arterial Blood Ionized Calcium Urine WBC (Auto) Coronavirus (PCR) 06/14/21 06/14/21 06/14/21 10:57 15:53 23:40 WBC RBC Hgb Hct RDW Plt Count Lymph % (Auto) Lymph # (Auto) Seg Neutrophils % Seg Neuts % (Manual) Lymphocytes % (Manual) Nucleated RBC % Seg Neutrophils # Seg Neutrophils # Man Lymphocytes # (Manual) Monocytes # (Manual) PT INR APTT D-Dimer ABG pH POC ABG pCO2 POC ABG pO2 ABG pO2 ABG O2 Saturation ABG Base Excess ABG Hemoglobin ABG Oxyhemoglobin ABG Methemoglobin ABG Sodium ABG Potassium ABG Chloride ABG Glucose Oxyhemoglobin Carboxyhemoglobin Sodium Potassium Chloride Carbon Dioxide BUN Creatinine Glucose POC Glucose 195 H 226 H 235 H Hemoglobin A1c Calcium Phosphorus Magnesium Ferritin Lactate Dehydrogenase Troponin T C-Reactive Protein Total Protein Albumin Mszkx-7-Brbvkfkqu Awiji-2-Aoxfhxiri Beta Globulins PEP Interpretation Triglycerides HDL Cholesterol Arterial Blood Glucose Arterial Blood Ionized Calcium Urine WBC (Auto) Coronavirus (PCR) 06/15/21 06/15/21 06/15/21 07:38 07:38 07:38 WBC 14.3 H RBC Hgb Hct RDW Plt Count Lymph % (Auto) Lymph # (Auto) Seg Neutrophils % Seg Neuts % (Manual) 95.0 H Lymphocytes % (Manual) 1.0 L Nucleated RBC % Seg Neutrophils # Seg Neutrophils # Man 13.6 H Lymphocytes # (Manual) 0.1 L Monocytes # (Manual) PT INR APTT D-Dimer > 91618 H ABG pH POC ABG pCO2 POC ABG pO2 ABG pO2 ABG O2 Saturation ABG Base Excess ABG Hemoglobin ABG Oxyhemoglobin ABG Methemoglobin ABG Sodium ABG Potassium ABG Chloride ABG Glucose Oxyhemoglobin Carboxyhemoglobin Sodium 153 H Potassium 3.5 L Chloride 115.9 H Carbon Dioxide BUN 55 H Creatinine 2.1 H Glucose 213 H POC Glucose Hemoglobin A1c Calcium Phosphorus Magnesium Ferritin Lactate Dehydrogenase Troponin T C-Reactive Protein Total Protein Albumin Pdopg-0-Jdbqwlqlf Gcyvw-1-Ixtehbrfd Beta Globulins PEP Interpretation Triglycerides HDL Cholesterol Arterial Blood Glucose Arterial Blood Ionized Calcium Urine WBC (Auto) Coronavirus (PCR) 06/15/21 06/15/21 06/15/21 07:38 09:21 11:46 WBC RBC Hgb Hct RDW Plt Count Lymph % (Auto) Lymph # (Auto) Seg Neutrophils % Seg Neuts % (Manual) Lymphocytes % (Manual) Nucleated RBC % Seg Neutrophils # Seg Neutrophils # Man Lymphocytes # (Manual) Monocytes # (Manual) PT INR APTT D-Dimer ABG pH POC ABG pCO2 POC ABG pO2 ABG pO2 ABG O2 Saturation ABG Base Excess ABG Hemoglobin ABG Oxyhemoglobin ABG Methemoglobin ABG Sodium ABG Potassium ABG Chloride ABG Glucose Oxyhemoglobin Carboxyhemoglobin Sodium Potassium Chloride Carbon Dioxide BUN Creatinine Glucose POC Glucose 202 H 233 H Hemoglobin A1c Calcium Phosphorus Magnesium Ferritin 1246.0 H Lactate Dehydrogenase Troponin T C-Reactive Protein Total Protein Albumin Tfiat-2-Xinldpowh Arsxl-6-Ebsmygukt Beta Globulins PEP Interpretation Triglycerides HDL Cholesterol Arterial Blood Glucose Arterial Blood Ionized Calcium Urine WBC (Auto) Coronavirus (PCR) 06/15/21 06/16/21 06/16/21 17:32 05:44 07:48 WBC RBC Hgb Hct RDW Plt Count Lymph % (Auto) Lymph # (Auto) Seg Neutrophils % Seg Neuts % (Manual) Lymphocytes % (Manual) Nucleated RBC % Seg Neutrophils # Seg Neutrophils # Man Lymphocytes # (Manual) Monocytes # (Manual) PT INR APTT D-Dimer ABG pH POC ABG pCO2 POC ABG pO2 ABG pO2 ABG O2 Saturation ABG Base Excess ABG Hemoglobin ABG Oxyhemoglobin ABG Methemoglobin ABG Sodium ABG Potassium ABG Chloride ABG Glucose Oxyhemoglobin Carboxyhemoglobin Sodium 154 H Potassium Chloride 117.2 H Carbon Dioxide BUN 54 H Creatinine 2.0 H Glucose 120 H POC Glucose 179 H 109 H Hemoglobin A1c Calcium Phosphorus Magnesium Ferritin Lactate Dehydrogenase Troponin T C-Reactive Protein Total Protein Albumin Mjtwc-0-Dgtqwjvxo Efncu-5-Sysnewzcd Beta Globulins PEP Interpretation Triglycerides HDL Cholesterol Arterial Blood Glucose Arterial Blood Ionized Calcium Urine WBC (Auto) Coronavirus (PCR) 06/16/21 06/16/21 06/16/21 11:13 15:22 21:15 WBC RBC Hgb Hct RDW Plt Count Lymph % (Auto) Lymph # (Auto) Seg Neutrophils % Seg Neuts % (Manual) Lymphocytes % (Manual) Nucleated RBC % Seg Neutrophils # Seg Neutrophils # Man Lymphocytes # (Manual) Monocytes # (Manual) PT INR APTT D-Dimer ABG pH POC ABG pCO2 POC ABG pO2 ABG pO2 ABG O2 Saturation ABG Base Excess ABG Hemoglobin ABG Oxyhemoglobin ABG Methemoglobin ABG Sodium ABG Potassium ABG Chloride ABG Glucose Oxyhemoglobin Carboxyhemoglobin Sodium Potassium Chloride Carbon Dioxide BUN Creatinine Glucose POC Glucose 222 H 218 H 250 H Hemoglobin A1c Calcium Phosphorus Magnesium Ferritin Lactate Dehydrogenase Troponin T C-Reactive Protein Total Protein Albumin Jwmcp-5-Zdcebgixy Lugrj-5-Dnhuecewo Beta Globulins PEP Interpretation Triglycerides HDL Cholesterol Arterial Blood Glucose Arterial Blood Ionized Calcium Urine WBC (Auto) Coronavirus (PCR) 06/17/21 06/17/21 06/17/21 07:55 09:35 09:35 WBC RBC Hgb Hct RDW 15.7 H Plt Count 99 L Lymph % (Auto) Lymph # (Auto) Seg Neutrophils % Seg Neuts % (Manual) Lymphocytes % (Manual) Nucleated RBC % Seg Neutrophils # Seg Neutrophils # Man Lymphocytes # (Manual) Monocytes # (Manual) PT INR APTT D-Dimer ABG pH POC ABG pCO2 POC ABG pO2 ABG pO2 ABG O2 Saturation ABG Base Excess ABG Hemoglobin ABG Oxyhemoglobin ABG Methemoglobin ABG Sodium ABG Potassium ABG Chloride ABG Glucose Oxyhemoglobin Carboxyhemoglobin Sodium 148 H Potassium Chloride 113.3 H Carbon Dioxide BUN 45 H Creatinine 1.8 H Glucose 202 H POC Glucose 158 H Hemoglobin A1c Calcium Phosphorus Magnesium Ferritin Lactate Dehydrogenase Troponin T C-Reactive Protein Total Protein 6.0 L Albumin 2.8 L Jdeiv-4-Iirlptqqw Wzjhh-0-Wygsmcfwp Beta Globulins PEP Interpretation Triglycerides HDL Cholesterol Arterial Blood Glucose Arterial Blood Ionized Calcium Urine WBC (Auto) Coronavirus (PCR) 06/17/21 06/17/21 06/18/21 12:32 16:46 06:00 WBC RBC Hgb Hct RDW Plt Count Lymph % (Auto) Lymph # (Auto) Seg Neutrophils % Seg Neuts % (Manual) Lymphocytes % (Manual) Nucleated RBC % Seg Neutrophils # Seg Neutrophils # Man Lymphocytes # (Manual) Monocytes # (Manual) PT INR APTT D-Dimer 9804.08 H ABG pH POC ABG pCO2 POC ABG pO2 ABG pO2 ABG O2 Saturation ABG Base Excess ABG Hemoglobin ABG Oxyhemoglobin ABG Methemoglobin ABG Sodium ABG Potassium ABG Chloride ABG Glucose Oxyhemoglobin Carboxyhemoglobin Sodium Potassium Chloride Carbon Dioxide BUN Creatinine Glucose POC Glucose 227 H 203 H Hemoglobin A1c Calcium Phosphorus Magnesium Ferritin Lactate Dehydrogenase Troponin T C-Reactive Protein Total Protein Albumin Ygbnd-3-Utraanmtd Mujzj-5-Zyxpolxnu Beta Globulins PEP Interpretation Triglycerides HDL Cholesterol Arterial Blood Glucose Arterial Blood Ionized Calcium Urine WBC (Auto) Coronavirus (PCR) 06/18/21 06/18/21 06/18/21 06:00 08:00 10:10 WBC RBC Hgb Hct RDW Plt Count Lymph % (Auto) Lymph # (Auto) Seg Neutrophils % Seg Neuts % (Manual) Lymphocytes % (Manual) Nucleated RBC % Seg Neutrophils # Seg Neutrophils # Man Lymphocytes # (Manual) Monocytes # (Manual) PT INR APTT D-Dimer ABG pH POC ABG pCO2 POC ABG pO2 ABG pO2 ABG O2 Saturation ABG Base Excess ABG Hemoglobin ABG Oxyhemoglobin ABG Methemoglobin ABG Sodium ABG Potassium ABG Chloride ABG Glucose Oxyhemoglobin Carboxyhemoglobin Sodium Potassium Chloride 110.1 H Carbon Dioxide BUN 39 H Creatinine 1.8 H Glucose 135 H POC Glucose 107 H Hemoglobin A1c Calcium Phosphorus Magnesium Ferritin 904.2 H Lactate Dehydrogenase Troponin T C-Reactive Protein Total Protein Albumin Xnpct-6-Phmmhzanv Yicmm-5-Jzpjlunix Beta Globulins PEP Interpretation Triglycerides HDL Cholesterol Arterial Blood Glucose Arterial Blood Ionized Calcium Urine WBC (Auto) Coronavirus (PCR) 06/18/21 06/18/21 06/18/21 12:06 16:47 21:14 WBC RBC Hgb Hct RDW Plt Count Lymph % (Auto) Lymph # (Auto) Seg Neutrophils % Seg Neuts % (Manual) Lymphocytes % (Manual) Nucleated RBC % Seg Neutrophils # Seg Neutrophils # Man Lymphocytes # (Manual) Monocytes # (Manual) PT INR APTT D-Dimer ABG pH POC ABG pCO2 POC ABG pO2 ABG pO2 ABG O2 Saturation ABG Base Excess ABG Hemoglobin ABG Oxyhemoglobin ABG Methemoglobin ABG Sodium ABG Potassium ABG Chloride ABG Glucose Oxyhemoglobin Carboxyhemoglobin Sodium Potassium Chloride Carbon Dioxide BUN Creatinine Glucose POC Glucose 160 H 236 H 186 H Hemoglobin A1c Calcium Phosphorus Magnesium Ferritin Lactate Dehydrogenase Troponin T C-Reactive Protein Total Protein Albumin Etiwn-9-Yrflymlqz Siywc-1-Cbbhzxhpl Beta Globulins PEP Interpretation Triglycerides HDL Cholesterol Arterial Blood Glucose Arterial Blood Ionized Calcium Urine WBC (Auto) Coronavirus (PCR) 06/19/21 06/19/21 06/20/21 15:46 15:46 08:04 WBC RBC Hgb Hct RDW 15.5 H Plt Count 73 L Lymph % (Auto) Lymph # (Auto) Seg Neutrophils % Seg Neuts % (Manual) Lymphocytes % (Manual) Nucleated RBC % Seg Neutrophils # Seg Neutrophils # Man Lymphocytes # (Manual) Monocytes # (Manual) PT INR APTT D-Dimer ABG pH POC ABG pCO2 POC ABG pO2 ABG pO2 ABG O2 Saturation ABG Base Excess ABG Hemoglobin ABG Oxyhemoglobin ABG Methemoglobin ABG Sodium ABG Potassium ABG Chloride ABG Glucose Oxyhemoglobin Carboxyhemoglobin Sodium 146 H Potassium Chloride 108.9 H Carbon Dioxide BUN 38 H Creatinine 1.7 H Glucose POC Glucose 52 L Hemoglobin A1c Calcium Phosphorus Magnesium Ferritin Lactate Dehydrogenase Troponin T C-Reactive Protein Total Protein Albumin Truby-9-Jonctlvuv Sewuo-0-Dcncdsgxs Beta Globulins PEP Interpretation Triglycerides HDL Cholesterol Arterial Blood Glucose Arterial Blood Ionized Calcium Urine WBC (Auto) Coronavirus (PCR) 06/20/21 06/20/21 06/20/21 11:58 15:16 17:54 WBC RBC Hgb Hct RDW Plt Count Lymph % (Auto) Lymph # (Auto) Seg Neutrophils % Seg Neuts % (Manual) Lymphocytes % (Manual) Nucleated RBC % Seg Neutrophils # Seg Neutrophils # Man Lymphocytes # (Manual) Monocytes # (Manual) PT INR APTT D-Dimer ABG pH POC ABG pCO2 POC ABG pO2 ABG pO2 ABG O2 Saturation ABG Base Excess ABG Hemoglobin ABG Oxyhemoglobin ABG Methemoglobin ABG Sodium ABG Potassium ABG Chloride ABG Glucose Oxyhemoglobin Carboxyhemoglobin Sodium 146 H Potassium Chloride 108.2 H Carbon Dioxide BUN 37 H Creatinine 1.7 H Glucose 131 H POC Glucose 58 L 219 H Hemoglobin A1c Calcium Phosphorus Magnesium Ferritin Lactate Dehydrogenase Troponin T C-Reactive Protein Total Protein Albumin Rgtyc-2-Mpqovgpmo Hhclw-2-Istoqousp Beta Globulins PEP Interpretation Triglycerides HDL Cholesterol Arterial Blood Glucose Arterial Blood Ionized Calcium Urine WBC (Auto) Coronavirus (PCR) 06/20/21 06/21/21 06/21/21 21:58 06:00 07:41 WBC RBC Hgb Hct RDW Plt Count Lymph % (Auto) Lymph # (Auto) Seg Neutrophils % Seg Neuts % (Manual) Lymphocytes % (Manual) Nucleated RBC % Seg Neutrophils # Seg Neutrophils # Man Lymphocytes # (Manual) Monocytes # (Manual) PT INR APTT D-Dimer ABG pH POC ABG pCO2 POC ABG pO2 ABG pO2 ABG O2 Saturation ABG Base Excess ABG Hemoglobin ABG Oxyhemoglobin ABG Methemoglobin ABG Sodium ABG Potassium ABG Chloride ABG Glucose Oxyhemoglobin Carboxyhemoglobin Sodium Potassium Chloride Carbon Dioxide BUN 42 H Creatinine 2.0 H Glucose 225 H POC Glucose 180 H 204 H Hemoglobin A1c Calcium Phosphorus Magnesium Ferritin Lactate Dehydrogenase Troponin T C-Reactive Protein Total Protein Albumin Zonho-1-Oveusmnno Odiwj-6-Vgodqpwhl Beta Globulins PEP Interpretation Triglycerides HDL Cholesterol Arterial Blood Glucose Arterial Blood Ionized Calcium Urine WBC (Auto) Coronavirus (PCR) 06/21/21 06/21/21 06/21/21 11:01 11:20 15:57 WBC RBC Hgb Hct RDW Plt Count Lymph % (Auto) Lymph # (Auto) Seg Neutrophils % Seg Neuts % (Manual) Lymphocytes % (Manual) Nucleated RBC % Seg Neutrophils # Seg Neutrophils # Man Lymphocytes # (Manual) Monocytes # (Manual) PT INR APTT D-Dimer ABG pH POC ABG pCO2 POC ABG pO2 58.9 L ABG pO2 ABG O2 Saturation ABG Base Excess ABG Hemoglobin ABG Oxyhemoglobin 87.4 L ABG Methemoglobin ABG Sodium ABG Potassium ABG Chloride ABG Glucose 212 H Oxyhemoglobin Carboxyhemoglobin Sodium Potassium Chloride Carbon Dioxide BUN Creatinine Glucose POC Glucose 194 H 171 H Hemoglobin A1c Calcium Phosphorus Magnesium Ferritin Lactate Dehydrogenase Troponin T C-Reactive Protein Total Protein Albumin Hcioy-3-Cvngwaztb Szprb-4-Ljijkxbrc Beta Globulins PEP Interpretation Triglycerides HDL Cholesterol Arterial Blood Glucose 212 H Arterial Blood Ionized Calcium 4.5 L Urine WBC (Auto) Coronavirus (PCR) 06/21/21 06/21/21 06/21/21 17:52 17:55 22:09 WBC RBC Hgb Hct RDW Plt Count Lymph % (Auto) Lymph # (Auto) Seg Neutrophils % Seg Neuts % (Manual) Lymphocytes % (Manual) Nucleated RBC % Seg Neutrophils # Seg Neutrophils # Man Lymphocytes # (Manual) Monocytes # (Manual) PT INR APTT D-Dimer ABG pH 7.316 L POC ABG pCO2 51.7 H POC ABG pO2 62.3 L ABG pO2 ABG O2 Saturation ABG Base Excess ABG Hemoglobin ABG Oxyhemoglobin 88.7 L ABG Methemoglobin ABG Sodium ABG Potassium ABG Chloride ABG Glucose 197 H Oxyhemoglobin Carboxyhemoglobin Sodium Potassium Chloride Carbon Dioxide BUN Creatinine Glucose POC Glucose 153 H 178 H Hemoglobin A1c Calcium Phosphorus Magnesium Ferritin Lactate Dehydrogenase Troponin T C-Reactive Protein Total Protein Albumin Hgfii-9-Fpbpfhrcf Vxlzi-5-Hoeqngtgg Beta Globulins PEP Interpretation Triglycerides HDL Cholesterol Arterial Blood Glucose 197 H Arterial Blood Ionized Calcium Urine WBC (Auto) Coronavirus (PCR) 06/22/21 06/22/21 06/22/21 07:30 07:43 11:47 WBC RBC Hgb Hct RDW Plt Count Lymph % (Auto) Lymph # (Auto) Seg Neutrophils % Seg Neuts % (Manual) Lymphocytes % (Manual) Nucleated RBC % Seg Neutrophils # Seg Neutrophils # Man Lymphocytes # (Manual) Monocytes # (Manual) PT INR APTT D-Dimer ABG pH POC ABG pCO2 POC ABG pO2 ABG pO2 ABG O2 Saturation ABG Base Excess ABG Hemoglobin ABG Oxyhemoglobin ABG Methemoglobin ABG Sodium ABG Potassium ABG Chloride ABG Glucose Oxyhemoglobin Carboxyhemoglobin Sodium Potassium Chloride Carbon Dioxide 21 L BUN 55 H Creatinine 2.8 H Glucose 219 H POC Glucose 235 H 222 H Hemoglobin A1c Calcium Phosphorus Magnesium Ferritin Lactate Dehydrogenase Troponin T C-Reactive Protein Total Protein Albumin Wpylt-6-Agdotabvw Gerzs-0-Bbcjlvmdx Beta Globulins PEP Interpretation Triglycerides HDL Cholesterol Arterial Blood Glucose Arterial Blood Ionized Calcium Urine WBC (Auto) Coronavirus (PCR) 06/22/21 06/22/21 06/22/21 11:50 12:10 15:15 WBC RBC Hgb Hct RDW Plt Count Lymph % (Auto) Lymph # (Auto) Seg Neutrophils % Seg Neuts % (Manual) Lymphocytes % (Manual) Nucleated RBC % Seg Neutrophils # Seg Neutrophils # Man Lymphocytes # (Manual) Monocytes # (Manual) PT INR APTT D-Dimer ABG pH 7.273 L POC ABG pCO2 POC ABG pO2 56.8 L 56.8 L ABG pO2 58.0 L ABG O2 Saturation 85.7 L ABG Base Excess -4.9 L ABG Hemoglobin ABG Oxyhemoglobin 86.7 L 86.7 L ABG Methemoglobin ABG Sodium ABG Potassium ABG Chloride ABG Glucose Oxyhemoglobin 84.1 L Carboxyhemoglobin Sodium Potassium Chloride Carbon Dioxide BUN Creatinine Glucose POC Glucose Hemoglobin A1c Calcium Phosphorus Magnesium Ferritin Lactate Dehydrogenase Troponin T C-Reactive Protein Total Protein Albumin Fonzc-8-Llchornvi Ekgdj-4-Dxrdjrhhw Beta Globulins PEP Interpretation Triglycerides HDL Cholesterol Arterial Blood Glucose Arterial Blood Ionized Calcium Urine WBC (Auto) Coronavirus (PCR) 06/22/21 06/22/21 06/22/21 17:28 21:22 23:35 WBC RBC Hgb Hct RDW Plt Count Lymph % (Auto) Lymph # (Auto) Seg Neutrophils % Seg Neuts % (Manual) Lymphocytes % (Manual) Nucleated RBC % Seg Neutrophils # Seg Neutrophils # Man Lymphocytes # (Manual) Monocytes # (Manual) PT INR APTT D-Dimer ABG pH 7.217 L POC ABG pCO2 POC ABG pO2 ABG pO2 61.7 L ABG O2 Saturation 87.3 L ABG Base Excess -6.0 L ABG Hemoglobin ABG Oxyhemoglobin ABG Methemoglobin ABG Sodium ABG Potassium ABG Chloride ABG Glucose Oxyhemoglobin 85.4 L Carboxyhemoglobin Sodium Potassium Chloride Carbon Dioxide BUN Creatinine Glucose POC Glucose 221 H 204 H Hemoglobin A1c Calcium Phosphorus Magnesium Ferritin Lactate Dehydrogenase Troponin T C-Reactive Protein Total Protein Albumin Orqhn-1-Ttoftdanp Zfaeg-9-Dbcuvlpso Beta Globulins PEP Interpretation Triglycerides HDL Cholesterol Arterial Blood Glucose Arterial Blood Ionized Calcium Urine WBC (Auto) Coronavirus (PCR) 06/23/21 06/23/21 06/23/21 04:42 04:42 04:42 WBC 19.0 H RBC 5.04 H Hgb Hct 44.5 H RDW 16.6 H Plt Count 61 L Lymph % (Auto) Lymph # (Auto) Seg Neutrophils % Seg Neuts % (Manual) Lymphocytes % (Manual) 2.0 L Nucleated RBC % 46.0 H Seg Neutrophils # Seg Neutrophils # Man 13.1 H Lymphocytes # (Manual) 0.4 L Monocytes # (Manual) 1.1 H PT INR APTT D-Dimer 6308.27 H ABG pH POC ABG pCO2 POC ABG pO2 ABG pO2 ABG O2 Saturation ABG Base Excess ABG Hemoglobin ABG Oxyhemoglobin ABG Methemoglobin ABG Sodium ABG Potassium ABG Chloride ABG Glucose Oxyhemoglobin Carboxyhemoglobin Sodium Potassium 6.3 H* D Chloride Carbon Dioxide 21 L BUN 72 H Creatinine 4.6 H D Glucose 225 H POC Glucose Hemoglobin A1c Calcium 8.0 L Phosphorus Magnesium Ferritin Lactate Dehydrogenase Troponin T C-Reactive Protein Total Protein Albumin Kyqyq-9-Cjmgftqmq Gfjfx-6-Rtytxhzmf Beta Globulins PEP Interpretation Triglycerides HDL Cholesterol Arterial Blood Glucose Arterial Blood Ionized Calcium Urine WBC (Auto) Coronavirus (PCR) 06/23/21 06/23/21 06/23/21 04:42 04:42 05:33 WBC RBC Hgb Hct RDW Plt Count Lymph % (Auto) Lymph # (Auto) Seg Neutrophils % Seg Neuts % (Manual) Lymphocytes % (Manual) Nucleated RBC % Seg Neutrophils # Seg Neutrophils # Man Lymphocytes # (Manual) Monocytes # (Manual) PT INR APTT D-Dimer ABG pH POC ABG pCO2 POC ABG pO2 ABG pO2 ABG O2 Saturation ABG Base Excess ABG Hemoglobin ABG Oxyhemoglobin ABG Methemoglobin ABG Sodium ABG Potassium ABG Chloride ABG Glucose Oxyhemoglobin Carboxyhemoglobin Sodium Potassium Chloride Carbon Dioxide BUN Creatinine Glucose POC Glucose 227 H Hemoglobin A1c Calcium 7.9 L Phosphorus 8.30 H Magnesium Ferritin 1496.0 H Lactate Dehydrogenase Troponin T C-Reactive Protein 4.40 H Total Protein Albumin Huhix-8-Jhbgcnodb Ozkkm-7-Cwitwigkm Beta Globulins PEP Interpretation Triglycerides HDL Cholesterol Arterial Blood Glucose Arterial Blood Ionized Calcium Urine WBC (Auto) Coronavirus (PCR) 06/23/21 06/23/21 06/23/21 11:00 11:31 17:40 WBC RBC Hgb Hct RDW Plt Count Lymph % (Auto) Lymph # (Auto) Seg Neutrophils % Seg Neuts % (Manual) Lymphocytes % (Manual) Nucleated RBC % Seg Neutrophils # Seg Neutrophils # Man Lymphocytes # (Manual) Monocytes # (Manual) PT INR APTT D-Dimer ABG pH 7.177 L POC ABG pCO2 58.9 H POC ABG pO2 60.2 L ABG pO2 ABG O2 Saturation ABG Base Excess ABG Hemoglobin ABG Oxyhemoglobin 83.5 L ABG Methemoglobin 1.8 H ABG Sodium ABG Potassium ABG Chloride ABG Glucose Oxyhemoglobin Carboxyhemoglobin Sodium Potassium Chloride Carbon Dioxide BUN Creatinine Glucose POC Glucose 207 H Hemoglobin A1c Calcium Phosphorus Magnesium Ferritin Lactate Dehydrogenase Troponin T C-Reactive Protein Total Protein Albumin Airhw-2-Wndsznomj Ltuwy-1-Tyrevayxe Beta Globulins PEP Interpretation Triglycerides HDL Cholesterol Arterial Blood Glucose Arterial Blood Ionized Calcium Urine WBC (Auto) > 182.0 H Coronavirus (PCR) 06/23/21 06/23/21 06/23/21 17:52 21:12 Unknown WBC RBC Hgb Hct RDW Plt Count Lymph % (Auto) Lymph # (Auto) Seg Neutrophils % Seg Neuts % (Manual) Lymphocytes % (Manual) Nucleated RBC % Seg Neutrophils # Seg Neutrophils # Man Lymphocytes # (Manual) Monocytes # (Manual) PT INR APTT D-Dimer 6308 H ABG pH 7.214 L POC ABG pCO2 60.2 H POC ABG pO2 78.9 L ABG pO2 ABG O2 Saturation ABG Base Excess ABG Hemoglobin ABG Oxyhemoglobin 93.4 L ABG Methemoglobin ABG Sodium ABG Potassium 6.3 H ABG Chloride ABG Glucose 338 H Oxyhemoglobin Carboxyhemoglobin Sodium Potassium Chloride Carbon Dioxide BUN Creatinine Glucose POC Glucose 232 H Hemoglobin A1c Calcium Phosphorus Magnesium Ferritin Lactate Dehydrogenase Troponin T C-Reactive Protein Total Protein Albumin Kxvug-0-Bwuspdfkn Ucrdz-4-Ksstvhwnp Beta Globulins PEP Interpretation Triglycerides HDL Cholesterol Arterial Blood Glucose 338 H Arterial Blood Ionized Calcium 4.1 L Urine WBC (Auto) Coronavirus (PCR) 06/23/21 06/23/21 06/23/21 Unknown Unknown Unknown WBC RBC Hgb Hct RDW Plt Count Lymph % (Auto) Lymph # (Auto) Seg Neutrophils % Seg Neuts % (Manual) Lymphocytes % (Manual) Nucleated RBC % Seg Neutrophils # Seg Neutrophils # Man Lymphocytes # (Manual) Monocytes # (Manual) PT 24.6 H INR 2.18 H APTT 43.8 H D-Dimer ABG pH POC ABG pCO2 POC ABG pO2 ABG pO2 ABG O2 Saturation ABG Base Excess ABG Hemoglobin ABG Oxyhemoglobin ABG Methemoglobin ABG Sodium ABG Potassium ABG Chloride ABG Glucose Oxyhemoglobin Carboxyhemoglobin Sodium 146 H Potassium 5.3 H Chloride 113.2 H Carbon Dioxide 20 L BUN 73 H Creatinine 4.2 H Glucose 234 H POC Glucose Hemoglobin A1c Calcium 6.3 L D Phosphorus Magnesium Ferritin 1094.0 H Lactate Dehydrogenase Troponin T C-Reactive Protein Total Protein 4.3 L Albumin 2.0 L Skqlp-0-Pgybjgodi Oasoe-7-Srxxxjnxv Beta Globulins PEP Interpretation Triglycerides HDL Cholesterol Arterial Blood Glucose Arterial Blood Ionized Calcium Urine WBC (Auto) Coronavirus (PCR) 06/24/21 06/24/21 06/24/21 00:03 04:55 04:55 WBC 18.7 H RBC Hgb Hct RDW 16.8 H Plt Count 42 L Lymph % (Auto) Lymph # (Auto) Seg Neutrophils % Seg Neuts % (Manual) Lymphocytes % (Manual) 1.0 L Nucleated RBC % 1.0 H Seg Neutrophils # Seg Neutrophils # Man 12.7 H Lymphocytes # (Manual) 0.2 L Monocytes # (Manual) PT INR APTT D-Dimer ABG pH POC ABG pCO2 POC ABG pO2 ABG pO2 ABG O2 Saturation ABG Base Excess ABG Hemoglobin ABG Oxyhemoglobin ABG Methemoglobin ABG Sodium ABG Potassium ABG Chloride ABG Glucose Oxyhemoglobin Carboxyhemoglobin Sodium Potassium 6.0 H Chloride Carbon Dioxide 20 L BUN 86 H Creatinine 5.4 H Glucose 309 H POC Glucose 265 H Hemoglobin A1c Calcium 6.5 L Phosphorus 7.60 H Magnesium Ferritin Lactate Dehydrogenase Troponin T C-Reactive Protein Total Protein 4.6 L Albumin 2.1 L Huotl-3-Xoougdrhq Wbyfv-5-Lxryrfxoh Beta Globulins PEP Interpretation Triglycerides HDL Cholesterol Arterial Blood Glucose Arterial Blood Ionized Calcium Urine WBC (Auto) Coronavirus (PCR) 06/24/21 06/24/21 06/24/21 04:55 06:01 11:38 WBC RBC Hgb Hct RDW Plt Count Lymph % (Auto) Lymph # (Auto) Seg Neutrophils % Seg Neuts % (Manual) Lymphocytes % (Manual) Nucleated RBC % Seg Neutrophils # Seg Neutrophils # Man Lymphocytes # (Manual) Monocytes # (Manual) PT 22.2 H INR 1.90 H APTT D-Dimer ABG pH POC ABG pCO2 POC ABG pO2 ABG pO2 ABG O2 Saturation ABG Base Excess ABG Hemoglobin ABG Oxyhemoglobin ABG Methemoglobin ABG Sodium ABG Potassium ABG Chloride ABG Glucose Oxyhemoglobin Carboxyhemoglobin Sodium Potassium Chloride Carbon Dioxide BUN Creatinine Glucose POC Glucose 257 H 288 H Hemoglobin A1c Calcium Phosphorus Magnesium Ferritin Lactate Dehydrogenase Troponin T C-Reactive Protein Total Protein Albumin Oficd-2-Lschoojwl Nkwdx-7-Kxzpuecqv Beta Globulins PEP Interpretation Triglycerides HDL Cholesterol Arterial Blood Glucose Arterial Blood Ionized Calcium Urine WBC (Auto) Coronavirus (PCR) 06/24/21 06/24/21 06/25/21 18:02 23:29 05:12 WBC RBC Hgb Hct RDW Plt Count Lymph % (Auto) Lymph # (Auto) Seg Neutrophils % Seg Neuts % (Manual) Lymphocytes % (Manual) Nucleated RBC % Seg Neutrophils # Seg Neutrophils # Man Lymphocytes # (Manual) Monocytes # (Manual) PT INR APTT D-Dimer ABG pH POC ABG pCO2 POC ABG pO2 ABG pO2 ABG O2 Saturation ABG Base Excess ABG Hemoglobin ABG Oxyhemoglobin ABG Methemoglobin ABG Sodium ABG Potassium ABG Chloride ABG Glucose Oxyhemoglobin Carboxyhemoglobin Sodium Potassium Chloride Carbon Dioxide BUN Creatinine Glucose POC Glucose 299 H 269 H 283 H Hemoglobin A1c Calcium Phosphorus Magnesium Ferritin Lactate Dehydrogenase Troponin T C-Reactive Protein Total Protein Albumin Chdsr-6-Enawragcm Trruy-1-Kkycfwybi Beta Globulins PEP Interpretation Triglycerides HDL Cholesterol Arterial Blood Glucose Arterial Blood Ionized Calcium Urine WBC (Auto) Coronavirus (PCR) 06/25/21 06/25/21 06/25/21 09:05 09:05 09:05 WBC 14.5 H RBC Hgb Hct RDW 16.4 H Plt Count 41 L Lymph % (Auto) Lymph # (Auto) Seg Neutrophils % Seg Neuts % (Manual) Lymphocytes % (Manual) Nucleated RBC % Seg Neutrophils # Seg Neutrophils # Man Lymphocytes # (Manual) Monocytes # (Manual) PT 20.2 H INR 1.68 H APTT D-Dimer ABG pH POC ABG pCO2 POC ABG pO2 ABG pO2 ABG O2 Saturation ABG Base Excess ABG Hemoglobin ABG Oxyhemoglobin ABG Methemoglobin ABG Sodium ABG Potassium ABG Chloride ABG Glucose Oxyhemoglobin Carboxyhemoglobin Sodium Potassium 5.5 H Chloride 97.2 L Carbon Dioxide BUN 88 H Creatinine 5.6 H Glucose 370 H POC Glucose Hemoglobin A1c Calcium 7.4 L Phosphorus 8.00 H Magnesium Ferritin Lactate Dehydrogenase Troponin T C-Reactive Protein Total Protein 5.1 L Albumin 2.5 L Rhzwj-6-Jeaefhxop Znvwt-3-Cvlwtboss Beta Globulins PEP Interpretation Triglycerides HDL Cholesterol Arterial Blood Glucose Arterial Blood Ionized Calcium Urine WBC (Auto) Coronavirus (PCR) 06/25/21 06/25/21 06/25/21 09:29 12:05 17:28 WBC RBC Hgb Hct RDW Plt Count Lymph % (Auto) Lymph # (Auto) Seg Neutrophils % Seg Neuts % (Manual) Lymphocytes % (Manual) Nucleated RBC % Seg Neutrophils # Seg Neutrophils # Man Lymphocytes # (Manual) Monocytes # (Manual) PT INR APTT D-Dimer ABG pH 7.304 L POC ABG pCO2 53.2 H POC ABG pO2 ABG pO2 ABG O2 Saturation ABG Base Excess ABG Hemoglobin 10.9 L ABG Oxyhemoglobin ABG Methemoglobin ABG Sodium 133.9 L ABG Potassium 5.8 H ABG Chloride ABG Glucose 380 H Oxyhemoglobin Carboxyhemoglobin 0.4 L Sodium Potassium Chloride Carbon Dioxide BUN Creatinine Glucose POC Glucose 359 H 288 H Hemoglobin A1c Calcium Phosphorus Magnesium Ferritin Lactate Dehydrogenase Troponin T C-Reactive Protein Total Protein Albumin Wsiwk-2-Eajbbtvns Kctxu-4-Chgmtshnb Beta Globulins PEP Interpretation Triglycerides HDL Cholesterol Arterial Blood Glucose 380 H Arterial Blood Ionized Calcium Urine WBC (Auto) Coronavirus (PCR) 06/25/21 06/25/21 06/26/21 21:00 23:46 05:14 WBC RBC Hgb Hct RDW Plt Count Lymph % (Auto) Lymph # (Auto) Seg Neutrophils % Seg Neuts % (Manual) Lymphocytes % (Manual) Nucleated RBC % Seg Neutrophils # Seg Neutrophils # Man Lymphocytes # (Manual) Monocytes # (Manual) PT INR APTT D-Dimer ABG pH 7.280 L 7.268 L POC ABG pCO2 59.7 H 60.2 H POC ABG pO2 113.7 H ABG pO2 ABG O2 Saturation ABG Base Excess ABG Hemoglobin 11.4 L 10.9 L ABG Oxyhemoglobin ABG Methemoglobin ABG Sodium 134.4 L 133.3 L ABG Potassium 4.7 H ABG Chloride ABG Glucose 313 H 353 H Oxyhemoglobin Carboxyhemoglobin 0.4 L Sodium Potassium Chloride Carbon Dioxide BUN Creatinine Glucose POC Glucose 325 H Hemoglobin A1c Calcium Phosphorus Magnesium Ferritin Lactate Dehydrogenase Troponin T C-Reactive Protein Total Protein Albumin Fltsi-0-Ykkjnmutr Stuoh-8-Lvizwiiky Beta Globulins PEP Interpretation Triglycerides HDL Cholesterol Arterial Blood Glucose 313 H 353 H Arterial Blood Ionized Calcium Urine WBC (Auto) Coronavirus (PCR) 06/26/21 06/26/21 06/26/21 05:27 07:00 07:00 WBC 11.4 H RBC 3.63 L Hgb Hct RDW 15.6 H Plt Count 29 L Lymph % (Auto) 6.4 L Lymph # (Auto) 0.7 L Seg Neutrophils % 87.9 H Seg Neuts % (Manual) Lymphocytes % (Manual) Nucleated RBC % Seg Neutrophils # 10.4 H Seg Neutrophils # Man Lymphocytes # (Manual) Monocytes # (Manual) PT INR APTT D-Dimer ABG pH POC ABG pCO2 POC ABG pO2 ABG pO2 ABG O2 Saturation ABG Base Excess ABG Hemoglobin ABG Oxyhemoglobin ABG Methemoglobin ABG Sodium ABG Potassium ABG Chloride ABG Glucose Oxyhemoglobin Carboxyhemoglobin Sodium Potassium Chloride Carbon Dioxide BUN Creatinine Glucose POC Glucose 345 H Hemoglobin A1c Calcium Phosphorus 7.40 H Magnesium Ferritin Lactate Dehydrogenase Troponin T C-Reactive Protein Total Protein Albumin Gndzq-6-Wkecswxkr Myinz-8-Miowyzzyv Beta Globulins PEP Interpretation Triglycerides HDL Cholesterol Arterial Blood Glucose Arterial Blood Ionized Calcium Urine WBC (Auto) Coronavirus (PCR) 06/26/21 06/26/21 06/26/21 10:00 10:00 13:01 WBC RBC Hgb Hct RDW Plt Count Lymph % (Auto) Lymph # (Auto) Seg Neutrophils % Seg Neuts % (Manual) Lymphocytes % (Manual) Nucleated RBC % Seg Neutrophils # Seg Neutrophils # Man Lymphocytes # (Manual) Monocytes # (Manual) PT INR APTT D-Dimer 1363.54 H ABG pH POC ABG pCO2 POC ABG pO2 ABG pO2 ABG O2 Saturation ABG Base Excess ABG Hemoglobin ABG Oxyhemoglobin ABG Methemoglobin ABG Sodium ABG Potassium ABG Chloride ABG Glucose Oxyhemoglobin Carboxyhemoglobin Sodium 136 L Potassium Chloride 96.1 L Carbon Dioxide BUN 78 H Creatinine 4.6 H Glucose 378 H POC Glucose 363 H Hemoglobin A1c Calcium 8.3 L Phosphorus Magnesium Ferritin Lactate Dehydrogenase Troponin T C-Reactive Protein Total Protein Albumin Ckavd-9-Eqeygyqab Lvbxz-1-Mzlquikcx Beta Globulins PEP Interpretation Triglycerides HDL Cholesterol Arterial Blood Glucose Arterial Blood Ionized Calcium Urine WBC (Auto) Coronavirus (PCR) Chest x-ray: image reviewed (bilateral infiltrates appear worse) Allied health notes reviewed: nursing
--- NOTE | 2021-06-26 15:25 | Progress Note ---
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 Neuro: Seizure, acute metabolic encephalopathy -Neurology consulted, appreciate recommendations -We will obtain CT head when patient is more hemodynamically stable -Witnessed seizure (06/23/2021). Continue Vimpat 100 mg twice daily in the setting of worsening renal function -Aspiration/seizure precautions -Sedated with fentanyl with RASS goal of -2 Cardio: ST, hypotension, CAD -Vasopressor support with Levophed and vasopressin; MAP goal >65 -Hold antihypertensive at this time in the setting of pressors -Continue home statin -Continue midodrine Respiratory: Acute hypoxic respiratory failure, ARDS 2/2 COVID 19 PNA -CCM consulted, appreciate recommendations -06/22 intubated with 7.50 ETT at 23 at the lips -Serial ABGs and CXR GI: MO, protein calorie malnutrition -Nutrition consult for tube feeds with free water flushes of 400 mL every 4 hours -BR: Senokot -Continue PPI prophylaxis : CKD stage III, hyperkalemia, metabolic acidosis, hyperphosphatemia -Nephrology consulted, appreciate recommendations -Hemodialysis initiated status post placement of access; last received on 06/23/2021 -Continue sodium bicarb drip -Renally dosed medications and avoid nephrotoxic medications Endo: h/o insulin-dependent diabetes, hypothyroidism -Continue IV levothyroxine 200 mcg -Accu-Cheks every 6 hours; continue moderate SSI -Increased NPH to 35 units twice daily for better glucose control -Goal glucose 140-180 while critically ill Heme: h/o DVT, coagulopathy of COVID, thrombocytopenia -Patient was on Eliquis which was discontinued and converted to therapeutic Lovenox -Therapeutic Lovenox converted to prophylaxis Lovenox renally dosed -Bilateral lower extremity Doppler ultrasound completed-> no acute DVT -Transitioned to Eliquis for anticoagulation in the setting of worsening thrombocytopenia. Pending HIT assay results -SCDs to bilateral directions while in bed -Trend CBC daily -Transfuse for hemoglobin less than 7 or if patient becomes symptomatic ID: Sepsis, COVID-19 pneumonia -Infectious disease consulted, appreciate recommendations -S/p steroids for 10 days; S/p remdesivir -Started on stress dose steroids Solu-Medrol 80 mg every 8 hours on 06/21 -Vitamin C/zinc/vitamin D -contact/droplet isolation precautions -Trend COVID-19 inflammatory markers every 2-3 days -Currently on cefepime and vancomycin The high probability of a clinically significant, sudden or life threatening deterioration of the [neuro, cardio, respiratory, renal, ID] system(s) required my full and direct attention, intervention and personal management. The aggregate critical care time was [60] minutes. This time is in addition to time spent performing reported procedures but includes the following: [x] Data Review and interpretation [x] Patient assessment and monitoring of vital signs [x] Documentation [x] Medication orders and management Disposition Plan: Continue medical management Total Time Spent with Patient (Minutes): 60 History Interval history: No acute changes overnight. Hospitalist Physical - Constitutional Vitals: Temp Pulse Resp BP Pulse Ox 96.9 F L 99 H 25 H 107/53 96 06/26/21 04:00 06/26/21 12:00 06/26/21 11:11 06/26/21 12:00 06/26/21 12:00 General appearance: Present: no acute distress, well-nourished, obese - EENT Eyes: Present: PERRL, EOM intact ENT: clear oral mucosa, dentition normal - Neck Neck: Present: supple, normal ROM Details: Central line in right IJ - Respiratory Respiratory effort: normal (Currently on mechanical ventilation) Respiratory: bilateral: diminished, rhonchi, negative: wheezing - Cardiovascular Heart rate: 104 Rhythm: regular Heart Sounds: Present: S1 & S2 - Extremities Extremities: no ischemia, pulses intact, pulses symmetrical, No edema, normal temperature, normal color Peripheral Pulses: within normal limits - Abdominal General gastrointestinal: soft, non-tender, non-distended, normal bowel sounds - Integumentary Integumentary: Present: clear, warm, dry - Psychiatric Psychiatric: other (Unable to assess given medical condition) - Neurologic Neurologic: other (Unable to assess given medical condition) - Allied Health Allied health notes reviewed: nursing HEART Score - HEART Score EKG: Non-specific Age: 45-65 Risk factors: 1-2 risk factors Troponin: Troponin T 0.021 ng/mL (0.00-0.029) 06/08/21 13:49 - Critical Actions Critical Actions: 0-3 pts:0.9-1.7%risk of adverse cardiac event.Candidate for discharge Results - Labs CBC & Chem 7: 06/26/21 07:00 06/26/21 10:00 Labs: Laboratory Last Values WBC 11.4 K/mm3 (4.5-11.0) H 06/26/21 07:00 RBC 3.63 M/mm3 (3.65-5.03) L 06/26/21 07:00 Hgb 10.3 gm/dl (10.1-14.3) 06/26/21 07:00 Hct 32.0 % (30.3-42.9) 06/26/21 07:00 MCV 88 fl (79-97) 06/26/21 07:00 MCH 28 pg (28-32) 06/26/21 07:00 MCHC 32 % (30-34) 06/26/21 07:00 RDW 15.6 % (13.2-15.2) H 06/26/21 07:00 Plt Count 29 K/mm3 (140-440) L 06/26/21 07:00 Lymph % (Auto) 6.4 % (13.4-35.0) L 06/26/21 07:00 [place] % (Auto) 6.3 % (0.0-7.3) 06/26/21 07:00 Eos % (Auto) 0.0 % (0.0-4.3) 06/26/21 07:00 Baso % (Auto) 0.1 % (0.0-1.8) 06/26/21 07:00 Lymph # (Auto) 0.7 K/mm3 (1.2-5.4) L 06/26/21 07:00 [place] # (Auto) 0.7 K/mm3 (0.0-0.8) 06/26/21 07:00 Eos # (Auto) 0.0 K/mm3 (0.0-0.4) 06/26/21 07:00 Baso # (Auto) 0.0 K/mm3 (0.0-0.1) 06/26/21 07:00 Add Manual Diff Complete 06/24/21 04:55 Total Counted 100 06/24/21 04:55 Seg Neutrophils % 87.9 % (40.0-70.0) H 06/26/21 07:00 Seg Neuts % (Manual) 68.0 % (40.0-70.0) 06/24/21 04:55 Band Neutrophils % 23.0 % 06/24/21 04:55 Lymphocytes % (Manual) 1.0 % (13.4-35.0) L 06/24/21 04:55 Monocytes % (Manual) 6.0 % (0.0-7.3) 06/23/21 04:42 Eosinophils % (Manual) 2.0 % (0.0-4.3) 06/23/21 04:42 Metamyelocytes % 2.0 % 06/10/21 23:14 Myelocytes % 8.0 % 06/24/21 04:55 Nucleated RBC % 1.0 % (0.0-0.9) H 06/24/21 04:55 Seg Neutrophils # 10.4 K/mm3 (1.8-7.7) H 06/26/21 07:00 Seg Neutrophils # Man 12.7 K/mm3 (1.8-7.7) H 06/24/21 04:55 Band Neutrophils # 4.3 K/mm3 06/24/21 04:55 Lymphocytes # (Manual) 0.2 K/mm3 (1.2-5.4) L 06/24/21 04:55 Abs React Lymphs (Man) 0.0 K/mm3 06/24/21 04:55 Monocytes # (Manual) 0.0 K/mm3 (0.0-0.8) 06/24/21 04:55 Eosinophils # (Manual) 0.0 K/mm3 (0.0-0.4) 06/24/21 04:55 Basophils # (Manual) 0.0 K/mm3 (0.0-0.1) 06/24/21 04:55 Metamyelocytes # 0.0 K/mm3 06/24/21 04:55 Myelocytes # 1.5 K/mm3 06/24/21 04:55 Promyelocytes # 0.0 K/mm3 06/24/21 04:55 Blast Cells # 0.0 K/mm3 06/24/21 04:55 WBC Morphology Not Reportable 06/24/21 04:55 Hypersegmented Neuts Not Reportable 06/24/21 04:55 Hyposegmented Neuts Not Reportable 06/24/21 04:55 Hypogranular Neuts Not Reportable 06/24/21 04:55 Smudge Cells Not Reportable 06/24/21 04:55 Toxic Granulation Not Reportable 06/24/21 04:55 Toxic Vacuolation Not Reportable 06/24/21 04:55 Dohle Bodies Not Reportable 06/24/21 04:55 Pelger-Huet Anomaly Not Reportable 06/24/21 04:55 Nba Rods Not Reportable 06/24/21 04:55 Platelet Estimate Consistent w auto 06/24/21 04:55 Clumped Platelets Not Reportable 06/24/21 04:55 Plt Clumps, EDTA Not Reportable 06/24/21 04:55 Large Platelets Not Reportable 06/24/21 04:55 Giant Platelets Not Reportable 06/24/21 04:55 Platelet Satelliting Not Reportable 06/24/21 04:55 Plt Morphology Comment Not Reportable 06/24/21 04:55 RBC Morphology Not Reportable 06/24/21 04:55 Dimorphic RBCs Not Reportable 06/24/21 04:55 Polychromasia Not Reportable 06/24/21 04:55 Hypochromasia Not Reportable 06/24/21 04:55 Poikilocytosis Not Reportable 06/24/21 04:55 Anisocytosis Not Reportable 06/24/21 04:55 Microcytosis Not Reportable 06/24/21 04:55 Macrocytosis Not Reportable 06/24/21 04:55 Spherocytes Not Reportable 06/24/21 04:55 Pappenheimer Bodies Not Reportable 06/24/21 04:55 Sickle Cells Not Reportable 06/24/21 04:55 Target Cells Not Reportable 06/24/21 04:55 Tear Drop Cells Not Reportable 06/24/21 04:55 Ovalocytes 1+ 06/24/21 04:55 Helmet Cells Not Reportable 06/24/21 04:55 [place] Bodies Not Reportable 06/24/21 04:55 Vera Rings Not Reportable 06/24/21 04:55 S[place]ter Cells Not Reportable 06/24/21 04:55 Bite Cells Not Reportable 06/24/21 04:55 Crenated Cell Not Reportable 06/24/21 04:55 Elliptocytes Not Reportable 06/24/21 04:55 Acanthocytes (Spur) Not Reportable 06/24/21 04:55 Rouleaux Not Reportable 06/24/21 04:55 Hemoglobin C Crystals Not Reportable 06/24/21 04:55 Schistocytes Not Reportable 06/24/21 04:55 Malaria parasites Not Reportable 06/24/21 04:55 Luis Bodies Not Reportable 06/24/21 04:55 Hem Pathologist Commnt No 06/24/21 04:55 PT 20.2 Sec. (12.2-14.9) H 06/25/21 09:05 INR 1.68 (0.87-1.13) H 06/25/21 09:05 APTT 26.7 Sec. (24.2-36.6) 06/26/21 10:00 Fibrinogen 328 mg/dl (211-480) 06/26/21 10:00 D-Dimer 1363.54 ng/mlDDU (0-234) H 06/26/21 10:00 ABG pH 7.268 (7.320-7.450) L 06/26/21 05:14 POC ABG pCO2 60.2 mmHg (32.0-48.0) H 06/26/21 05:14 ABG pCO2 56.5 mm Hg 06/22/21 21:22 POC ABG pO2 113.7 mmHg (83-108) H 06/26/21 05:14 ABG pO2 61.7 mm Hg (80.0-90.0) L 06/22/21 21:22 POC ABG HCO3 26.9 06/26/21 05:14 ABG HCO3 22.5 mmol/L (20.0-26.0) 06/22/21 21:22 ABG O2 Saturation 98.0 (0-100) 06/26/21 05:14 ABG O2 Content 17.2 (0.0-44) 06/22/21 21:22 POC ABG Base Excess -0.8 06/26/21 05:14 ABG Base Excess -6.0 mmol/L (-2.0-3.0) L 06/22/21 21:22 ABG Hemoglobin 10.9 (12.0-17.5) L 06/26/21 05:14 ABG Oxyhemoglobin 97.3 (94-98) 06/26/21 05:14 ABG Carboxyhemoglobin 1.5 % (0.0-5.0) 06/22/21 21:22 ABG Methemoglobin 0.3 (0.0-1.5) 06/26/21 05:14 ABG Sodium 133.3 mmol/L (136.0-145.0) L 06/26/21 05:14 ABG Potassium 4.7 mmol/L (3.40-4.50) H 06/26/21 05:14 ABG Chloride 98.0 mmol/L (98-107) 06/26/21 05:14 ABG Glucose 353 mg/dL (65-95) H 06/26/21 05:14 Oxyhemoglobin 85.4 % (95.0-99.0) L 06/22/21 21:22 Carboxyhemoglobin 0.4 (0.5-1.5) L 06/26/21 05:14 FiO2 100 % 06/22/21 21:22 FiO2 % 85.0 06/26/21 05:14 Sodium 136 mmol/L (137-145) L 06/26/21 10:00 Potassium 4.8 mmol/L (3.6-5.0) 06/26/21 10:00 Chloride 96.1 mmol/L (98-107) L 06/26/21 10:00 Carbon Dioxide 25 mmol/L (22-30) 06/26/21 10:00 Anion Gap 20 mmol/L 06/26/21 10:00 BUN 78 mg/dL (7-17) H 06/26/21 10:00 Creatinine 4.6 mg/dL (0.6-1.2) H 06/26/21 10:00 Estimated GFR 12 ml/min 06/26/21 10:00 BUN/Creatinine Ratio 17 % 06/26/21 10:00 Glucose 378 mg/dL (65-100) H 06/26/21 10:00 POC Glucose 363 mg/dL (70-105) H 06/26/21 13:01 Hemoglobin A1c 9.5 % (4-6) H 06/07/21 19:11 Calcium 8.3 mg/dL (8.4-10.2) L 06/26/21 10:00 Phosphorus 7.40 mg/dL (2.5-4.5) H 06/26/21 07:00 Magnesium 2.10 mg/dL (1.7-2.3) 06/26/21 07:00 Ferritin 1094.0 ng/mL (10.0-200.0) H 06/23/21 Unknown Total Bilirubin 0.40 mg/dL (0.1-1.2) 06/25/21 09:05 AST 17 units/L (5-40) 06/25/21 09:05 ALT 25 units/L (7-56) 06/25/21 09:05 Alkaline Phosphatase 84 units/L (35-129) 06/25/21 09:05 Lactate Dehydrogenase 606 units/L (91-180) H 06/10/21 23:14 Troponin T 0.021 ng/mL (0.00-0.029) 06/08/21 13:49 C-Reactive Protein 4.40 mg/dL (0.00-1.30) H 06/23/21 04:42 Serum Total Protein 7.0 g/dL (6.1-8.1) 06/10/21 23:14 Total Protein 5.1 g/dL (6.3-8.2) L 06/25/21 09:05 Albumin 2.5 g/dL (3.9-5) L 06/25/21 09:05 Albumin/Globulin Ratio 1.0 % 06/25/21 09:05 Gjnfv-7-Yfqomzfel 0.5 g/dL (0.2-0.3) H 06/10/21 23:14 Tkbwk-7-Hqvstddfz 1.7 g/dL (0.5-0.9) H 06/10/21 23:14 Beta Globulins 0.6 g/dL (0.2-0.5) H 06/10/21 23:14 Gamma Globulins 1.3 g/dL (0.8-1.7) 06/10/21 23:14 Abnorm Protein Band 1 see below 06/10/21 23:14 PEP Interpretation see below H 06/10/21 23:14 Triglycerides 209 mg/dL (2-149) H 06/07/21 19:11 Cholesterol 165 mg/dL (50-199) 06/07/21 19:11 LDL Cholesterol Direct 79 mg/dL (50-130) 06/07/21 19:11 HDL Cholesterol 35 mg/dL (40-59) L 06/07/21 19:11 Cholesterol/HDL Ratio 4.71 % 06/07/21 19:11 Procalcitonin 0.91 ng/mL (<0.15) 06/07/21 19:11 Arterial Blood Glucose 353 mg/dL (65-95) H 06/26/21 05:14 Arterial Blood Ionized Calcium 4.1 mg/dL (4.6-5.3) L 06/23/21 21:12 Urine Color Sole (Yellow) 06/23/21 17:40 Urine Turbidity Cloudy (Clear) 06/23/21 17:40 Urine pH 6.0 (5.0-7.0) 06/23/21 17:40 Ur Specific [place] 1.017 (1.003-1.030) 06/23/21 17:40 Urine Protein >500 mg/dL (Negative) 06/23/21 17:40 Urine Glucose (UA) 50 mg/dL (Negative) 06/23/21 17:40 Urine Ketones Neg mg/dL (Negative) 06/23/21 17:40 Urine Blood Lg (Negative) 06/23/21 17:40 Urine Nitrite Neg (Negative) 06/23/21 17:40 Urine Bilirubin Neg (Negative) 06/23/21 17:40 Urine Urobilinogen < 2.0 mg/dL (<2.0) 06/23/21 17:40 Ur Leukocyte Esterase Mod (Negative) 06/23/21 17:40 Urine WBC (Auto) > 182.0 /HPF (0.0-6.0) H 06/23/21 17:40 Urine RBC (Auto) > 182.0 /HPF (0.0-6.0) 06/23/21 17:40 Urine WBC Clumps 3+ /HPF 06/23/21 17:40 Uric Acid Crystals 1+ 06/23/21 17:40 Urine Mucus Few /HPF 06/23/21 17:40 Random Vancomycin 13.8 ug/mL (0-40.0) 06/26/21 07:00 Coronavirus (PCR) Positive (Negative) A 06/08/21 08:30 Hepatitis A IgM Ab Non-reactive (NonReactive) 06/24/21 15:57 Hep Bs Antigen Nonreactive (Negative) 06/24/21 15:57 Hep B Core IgM Ab Non-reactive (NonReactive) 06/24/21 15:57 Hepatitis C Antibody Non-reactive (NonReactive) 06/24/21 15:57 Blood Type B POSITIVE 06/07/21 22:34 Antibody Screen Negative 06/07/21 22:34 Microbiology: Microbiology 06/23/21 08:27 Peripheral/Venous Blood Culture - Preliminary NO GROWTH AFTER 72 HOURS 06/23/21 08:27 Peripheral/Venous Blood Culture - Preliminary NO GROWTH AFTER 72 HOURS 06/22/21 13:07 Tracheal Aspirate Sputum Culture - Preliminary Roland/IV: Voiding Method Indwelling Catheter Active Medications - Current Medications Current Medications: Generic Name Dose Route Start Last Admin Trade Name Freq PRN Reason Stop Dose Admin Acetaminophen 650 mg 06/07/21 21:41 06/24/21 11:45 Acetaminophen 325 Mg Tab PO 650 mg Q4H PRN Administration Pain MILD(1-3)/Fever >100.5/MARTÍNEZ Albumin Human 25 gm 06/24/21 14:55 Albumin Human 25% (25 Gm/100 Ml) Inj IV KORINA PRN Hypotension Albuterol 2 mg 06/23/21 09:00 Albuterol 2.5 Mg/3 Ml Nebu IH Q4HRT PRN Shortness Of Breath Lipase/Protease/Amylase 1 each 06/24/21 14:18 Lipase 10,500/Protease 25,000/Amylase 43,750 (Units) Dr Barahona FEEDTUBE PRN PRN For Clogged Feeding Tube Ascorbic Acid 500 mg 06/22/21 22:00 06/26/21 09:55 Ascorbic Acid 500 Mg Tab PO 500 mg BID LEONOR Administration Atorvastatin Calcium 10 mg 06/08/21 10:00 06/26/21 09:55 Atorvastatin 10 Mg Tab PO 10 mg DAILY LEONOR Administration Dextrose 50 ml 06/08/21 12:04 06/20/21 12:16 Dextrose 50% In Water (25gm) 50 Ml Syringe IV 50 ml Q30MIN PRN Administration Hypoglycemia Protocol Docusate Sodium 100 mg 06/23/21 09:00 Docusate Sodium 100 Mg/10 Ml Oral Liqd PO BID PRN Constipation Famotidine 10 mg 06/22/21 22:00 06/26/21 09:55 Famotidine 20 Mg/2 Ml Inj IV 10 mg BID LEONOR Administration Fentanyl 50 mcg 06/22/21 13:07 06/22/21 21:09 Fentanyl 100 Mcg/2 Ml Inj IV 50 mcg Q10MIN PRN Administration ANALGESIA Hydrophilic Ointment 1 applic 06/22/21 13:07 Lip Therapy Vaseline TP Q2HR PRN Dry Lips Fentanyl Citrate 2,000 mcg in 100 mls @ 8.2 mls/hr 06/22/21 14:00 06/26/21 12:47 Fentanyl Drip Premix IV 2 mcg/kg/hr TITR LEONOR 16.4 mls/hr Administration Protocol 1 MCG/KG/HR NORepinephrine/NS 8 MG-250 ML 8 mg in 250 mls @ 3.75 mls/hr 06/22/21 15:00 06/25/21 21:05 Norepinephrine/Ns 8 Mg-250 Ml (Double Conc) IV 0 mcg/min TITRATE LEONOR 0 mls/hr Titration Protocol 2 MCG/MIN Cefepime HCl 2 gm in 100 mls @ 200 mls/hr 06/23/21 08:00 06/26/21 08:22 Cefepime/Ns 2 Gm/100 Ml IV 200 mls/hr Q24H LEONOR Administration Protocol Vasopressin 20 unit/ Sodium 101 mls @ 9.09 mls/hr 06/23/21 09:00 06/25/21 16:25 Chloride IV 0 units/min TITR LEONOR 0 mls/hr Titration Protocol 0.03 UNITS/MIN Sodium Chloride 500 mls @ 1 mls/hr 06/23/21 11:19 Nacl 0.9% 500 Ml IV DIRECT PRN ARTERIAL LINE FLUSH Lacosamide 100 mg/ Sodium 110 mls @ 100 mls/hr 06/23/21 15:00 06/26/21 14:43 Chloride IV 100 mls/hr Q12H LEONOR Administration Sodium Chloride 100 mls @ 999 mls/hr 06/25/21 06:00 Nacl 0.9% IV KORINA PRN Hypotension Sodium Chloride 100 mls @ 999 mls/hr 06/25/21 14:13 Nacl 0.9% IV KORINA PRN Hypotension Insulin Human Isoph/Insulin Regular 35 unit 06/25/21 17:00 06/26/21 08:23 Insulin Nph/Regular 70/30 Inj SUB-Q 35 unit BIDDIAB LEONOR Administration Insulin Human Regular 0 units 06/22/21 18:00 06/26/21 13:24 Insulin Regular, Human 100 Units/1 Ml SUB-Q 8 units Q6HR LEONOR Administration Protocol Levothyroxine Sodium 137.5 mcg 06/23/21 06:00 06/26/21 06:50 Levothyroxine 100 Mcg Inj IV 137.5 mcg DAILY@0600 LEONOR Administration Methylprednisolone Sodium Succinate 100 mg 06/21/21 16:00 06/26/21 08:22 Methylprednisolone Sod Succinate 125 Mg/2 Ml Inj IV 100 mg Q8H LEONOR Administration Midodrine 10 mg 06/22/21 15:00 06/26/21 08:22 Midodrine 5 Mg Tab PO 10 mg Q8H LEONOR Administration Multi-Ingred Cream/Lotion/Oil/Oint 1 applic 06/22/21 13:07 Mineral Oil/Petrolatum, White Ophth Oint 3.5 Gm OU Q4HR PRN Dry Eye(s) Ondansetron HCl 4 mg 06/07/21 21:41 06/20/21 22:15 Ondansetron 4 Mg/2 Ml Inj IV 4 mg Q8H PRN Administration Nausea And Vomiting Senna/Docusate Sodium 1 tab 06/22/21 22:00 06/25/21 22:56 Sennosides/Docusate Sodium 8.6/50 Mg Tab FEEDTUBE 1 tab BID LEONOR Administration Simple Syrup 15 ml 06/24/21 14:18 Simple Syrup 15 Ml FEEDTUBE PRN PRN Hypoglycemia Simple Syrup 30 ml 06/24/21 14:18 Simple Syrup 15 Ml FEEDTUBE PRN PRN Hypoglycemia Sodium Bicarbonate 325 mg 06/24/21 14:18 Sodium Bicarbonate 325 Mg Tab FEEDTUBE PRN PRN For Clogged Feeding Tube Sodium Chloride 10 ml 06/07/21 22:00 06/26/21 09:57 Sodium Chloride 0.9% 10 Ml Flush Syringe IV 10 ml BID LEONOR Administration Sodium Chloride 10 ml 06/07/21 21:41 Sodium Chloride 0.9% 10 Ml Flush Syringe IV PRN PRN LINE FLUSH Zinc Sulfate 220 mg 06/22/21 22:00 06/26/21 09:55 Zinc Sulfate 220 Mg Cap PO 220 mg BID LEONOR Administration Nutrition/Malnutrition Assess - Dietary Evaluation Nutrition/Malnutrition Findings: Nutrition Notes Start: 06/08/21 10:56 Freq: Status: Active Protocol: Document 06/24/21 14:03 GB (Rec: 06/24/21 14:18 GB [email or web address]) Nutrition Notes Initial or Follow up Reassessment Current Diagnosis Acute Kidney Injury,Diabetes Other Pertinent Diagnosis Pneumonia/COVID-19, hypothyroidism. Current Diet Tube feeding - Nepro Labs/Tests 06/24: K 6, BUN 86 decline, creatinine 5.4 decline, glucose 309 decline (poc showing improvement), Ca 6.5, P 7.6. Pertinent Medications Vit C, D5 PRN, fentanyl citrate, Height 5 ft 11 in Weight 164 kg [place] Body Weight (kg) 70.45 BMI 50.4 Weight change and time frame Weight is stable x2 weeks Weight Status Morbidly Obese Subjective/Other Information MD would like TF to be Nepro. Okay to change. RD updating orders. Percent of energy/protein needs met: Prescribed Tube feeding diet will provide 75-100% for energy/protein needs. Burn Absent Trauma Absent GI Symptoms None Difficulty In Swallowing,Chewing Food Allergy Yes Current % PO Other Minimum of two criteria No physical signs of malnutrition #1 Nutrition Diagnosis Inadequate energy intake Comments: Transient poor acceptance of food and neglible PO intake as reported in Nurse notes Etiology COVID=19/pneumonia As Evidenced by Signs and Symptoms Fair tolerance to food, intake of meals between 0-25%. Diagnosis Progress(for reassessment Continues documentation) Is patient on ventilator? Yes Is Patient Ambulatory and/or Out of Bed No REE-([facility]-confined to bed) 2771.148 Kcal/Kg value to use for calculation 13 Approximate Energy Requirements Using 2132 kcal/Kg Calculation Used for Recommendations Kcal/kg Additional Notes Protein: up to 0.7 g/Kg/day @ 164kg; 114 g/day Fluids: 1.0 ml/Kcal, or as per MD. Nutrition Intervention Change Diet Order: NPO continue Nutrition Support: Nepro @ 50ml/hr Flush; 150ml every 4 hrs. or as per MD. Kcal 2,160 Protein (gm) 97 Fat (gm) 115 Fluid (mL) 872 Goal #1 Maintain body weight within +/ -3% of actual BWt during LOS. Goal #2 Tolerate TF at goal rate of 50ml/hr during LOS Goal #3 Nutritional related labs to improve toward acceptable ranges during LOS. Follow-Up By: 06/28/21 Additional Comments Nepro at goal 50ml/hr. Flush 150/4hr. Total fluids daily 1772ml. - Attestation Statement I have reviewed and agreed w/ Malnutrition eval & tx plan: Yes
[2021-06-26] MEDS ORDERED: MIDAZOLAM 5 MG/5 ML INJ MDV IV ONE (15:48)
[2021-06-26] MEDS ORDERED: MIDAZOLAM 5 MG/5 ML INJ MDV IV NR (16:00)
--- NOTE | 2021-06-26 17:09 | Cat Scan Report ---
CT head/brain wo con INDICATION: Altered mental status. TECHNIQUE: All CT scans at this location are performed using CT dose reduction for ALARA by means of automated e xposure control. COMPARISON: None available. FINDINGS: There is no evidence of hemorrhage, hydrocephalus, brain edema, or mass effect/mass lesion. There is overall normal brain formation and brain volume for the patient's age. Ventricular and cisternal/sulc al size is normal for age. The included paranasal sinuses and mastoid air cells are clear. The orbits appear unremarkable. IMPRESSION: 1. No acute findings. Signer Name: Hood Galindo MD Signed: 06/26/2021 5:05 PM Workstation Name: [id number]
--- NOTE | 2021-06-26 17:14 | Event Note ---
Date: 06/26/21 bright red bleeding noted in ETT intermittently today no overt hemodynamic decompensation CXR with increased bilateral infiltrtaes but no concurrent desaturation - ? DAH ? suction trauma - repeat H&H at 9pm - hold on high dose steroids for now or bronchoscopy - stopped DVT prophylaxis Apixaban - follow clinically
[2021-06-27] MEDS: methylPREDNISolone Sod Succinate 125 MG/2 ML INJ IV SCH ×2 (00:19→08:10)
[2021-06-27] MEDS: INSULIN REGULAR, HUMAN 100 UNITS/1 ML SUB-Q SCH ×4 (00:19→18:01)
[2021-06-27] MEDS: LACOSAMIDE 100 MG in SODIUM CHLORIDE 0.9% 100 ML IV SCH ×2 (03:21→14:11)
[2021-06-27 04:29] LABS: ABG Base Excess -1.7 mmol/L (-2.0-3.0); ABG HCO3 26.2 mmol/L (20.0-26.0); ABG Methemoglobin 0.5 % (0.0-1.5); ABG Oxygen Saturation 96.8 % (95.0-99.0); ABG PH 7.23 pH Units (7.350-7.450)
[2021-06-27] MEDS: fentaNYL 100 MCG/2 ML INJ IV PRN (05:26)
[2021-06-27] MEDS: LEVOTHYROXINE 100 MCG INJ IV SCH (05:41)
[2021-06-27] MEDS ORDERED: AMIODARONE 150 MG in DEXTROSE 5% IN WATER 97 ML IV ONE (06:06)
[2021-06-27] MEDS: AMIODARONE 900 MG in DEXTROSE 5% IN WATER 482 ML IV SCH (06:46)
[2021-06-27] MEDS: MIDODRINE 5 MG TAB PO SCH ×3 (06:46→22:00)
[2021-06-27 06:57] LABS: Hematocrit 33.9 % (30.3-42.9); Hemoglobin 10.9 gm/dl (10.1-14.3); Mean Corpuscular HGB Conc 32 % (30-34); Mean Corpuscular Volume 88 fl (79-97); Red Blood Count 3.85 M/mm3 (3.65-5.03); Red Cell Distribution Width 16.1 % (13.2-15.2)
[2021-06-27 07:00] LABS: Calcium 8.3 mg/dL (8.4-10.2)
[2021-06-27] MEDS: fentaNYL DRIP Premix 2,000 MCG/100 ML BAG IV SCH ×3 (07:51→21:32)
[2021-06-27] MEDS: INSULIN NPH/REGULAR 70/30 INJ SUB-Q SCH ×4 (08:10→18:02)
[2021-06-27] MEDS: CEFEPIME/NS 2 GM/100 ML 2 GM/100 ML BAG IV SCH (08:19)
[2021-06-27 08:36] LABS: Monocytes # (Auto) 0.6 K/mm3 (0.0-0.8); Monocytes % (Auto) 4.6 % (0.0-7.3)
--- NOTE | 2021-06-27 08:56 | Hem/Onc Consultation ---
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), and uncontrolled diabetes Noted to have a seizure Currently intubated due to acute hypoxic respiratory failure Receiving hemodialysis--last 06/23/21 History of multiple DVTs--was on at home Eliquis--converted to Lovenox while inpatient Now with thrombocytopenia As per nurse, large amount of blood noted in ETT tube yesterday 06/26/2021 No blood noted today Bilateral extremity u/s negative for DVT DATA REVIEWED BELOW Hgb 10.9 Hct 33.9 MCV 88 WBC 12.5 Plt 233 Fibrinogen 328 IMP: Thrombocytopenia related to covid infection or medications r/o HIT vs acute ITP REC/PLAN: AM labs to include daily CBC Transfuse 1 dose of platelets whenever plt count <50 monitor for bleeding Awaiting PF4 antibody results Laboratory Last Values WBC 12.5 K/mm3 (4.5-11.0) H 06/27/21 06:40 RBC 3.85 M/mm3 (3.65-5.03) 06/27/21 06:40 Hgb 10.9 gm/dl (10.1-14.3) 06/27/21 06:40 Hct 33.9 % (30.3-42.9) 06/27/21 06:40 MCV 88 fl (79-97) 06/27/21 06:40 MCH 28 pg (28-32) 06/27/21 06:40 MCHC 32 % (30-34) 06/27/21 06:40 RDW 16.1 % (13.2-15.2) H 06/27/21 06:40 Plt Count 29 K/mm3 (140-440) L 06/26/21 07:00 Lymph % (Auto) 6.4 % (13.4-35.0) L 06/26/21 07:00 [place] % (Auto) 4.6 % (0.0-7.3) 06/27/21 06:40 Eos % (Auto) 0.0 % (0.0-4.3) 06/27/21 06:40 Baso % (Auto) 0.1 % (0.0-1.8) 06/26/21 07:00 Lymph # (Auto) 0.7 K/mm3 (1.2-5.4) L 06/26/21 07:00 [place] # (Auto) 0.6 K/mm3 (0.0-0.8) 06/27/21 06:40 Eos # (Auto) 0.0 K/mm3 (0.0-0.4) 06/27/21 06:40 Baso # (Auto) 0.0 K/mm3 (0.0-0.1) 06/27/21 06:40 Add Manual Diff Complete 06/24/21 04:55 Total Counted 100 06/24/21 04:55 Seg Neutrophils % Trimming Caser 06/27/21 06:40 Seg Neuts % (Manual) 68.0 % (40.0-70.0) 06/24/21 04:55 Band Neutrophils % 23.0 % 06/24/21 04:55 Lymphocytes % (Manual) 1.0 % (13.4-35.0) L 06/24/21 04:55 Monocytes % (Manual) 6.0 % (0.0-7.3) 06/23/21 04:42 Eosinophils % (Manual) 2.0 % (0.0-4.3) 06/23/21 04:42 Metamyelocytes % 2.0 % 06/10/21 23:14 Myelocytes % 8.0 % 06/24/21 04:55 Nucleated RBC % 1.0 % (0.0-0.9) H 06/24/21 04:55 Seg Neutrophils # 11.3 K/mm3 (1.8-7.7) H 06/27/21 06:40 Seg Neutrophils # Man 12.7 K/mm3 (1.8-7.7) H 06/24/21 04:55 Band Neutrophils # 4.3 K/mm3 06/24/21 04:55 Lymphocytes # (Manual) 0.2 K/mm3 (1.2-5.4) L 06/24/21 04:55 Abs React Lymphs (Man) 0.0 K/mm3 06/24/21 04:55 Monocytes # (Manual) 0.0 K/mm3 (0.0-0.8) 06/24/21 04:55 Eosinophils # (Manual) 0.0 K/mm3 (0.0-0.4) 06/24/21 04:55 Basophils # (Manual) 0.0 K/mm3 (0.0-0.1) 06/24/21 04:55 Metamyelocytes # 0.0 K/mm3 06/24/21 04:55 Myelocytes # 1.5 K/mm3 06/24/21 04:55 Promyelocytes # 0.0 K/mm3 06/24/21 04:55 Blast Cells # 0.0 K/mm3 06/24/21 04:55 WBC Morphology Not Reportable 06/24/21 04:55 Hypersegmented Neuts Not Reportable 06/24/21 04:55 Hyposegmented Neuts Not Reportable 06/24/21 04:55 Hypogranular Neuts Not Reportable 06/24/21 04:55 Smudge Cells Not Reportable 06/24/21 04:55 Toxic Granulation Not Reportable 06/24/21 04:55 Toxic Vacuolation Not Reportable 06/24/21 04:55 Dohle Bodies Not Reportable 06/24/21 04:55 Pelger-Huet Anomaly Not Reportable 06/24/21 04:55 Nba Rods Not Reportable 06/24/21 04:55 Platelet Estimate Consistent w auto 06/24/21 04:55 Clumped Platelets Not Reportable 06/24/21 04:55 Plt Clumps, EDTA Not Reportable 06/24/21 04:55 Large Platelets Not Reportable 06/24/21 04:55 Giant Platelets Not Reportable 06/24/21 04:55 Platelet Satelliting Not Reportable 06/24/21 04:55 Plt Morphology Comment Not Reportable 06/24/21 04:55 RBC Morphology Not Reportable 06/24/21 04:55 Dimorphic RBCs Not Reportable 06/24/21 04:55 Polychromasia Not Reportable 06/24/21 04:55 Hypochromasia Not Reportable 06/24/21 04:55 Poikilocytosis Not Reportable 06/24/21 04:55 Anisocytosis Not Reportable 06/24/21 04:55 Microcytosis Not Reportable 06/24/21 04:55 Macrocytosis Not Reportable 06/24/21 04:55 Spherocytes Not Reportable 06/24/21 04:55 Pappenheimer Bodies Not Reportable 06/24/21 04:55 Sickle Cells Not Reportable 06/24/21 04:55 Target Cells Not Reportable 06/24/21 04:55 Tear Drop Cells Not Reportable 06/24/21 04:55 Ovalocytes 1+ 06/24/21 04:55 Helmet Cells Not Reportable 06/24/21 04:55 [place] Bodies Not Reportable 06/24/21 04:55 [place] Rings Not Reportable 06/24/21 04:55 Barbie Cells Not Reportable 06/24/21 04:55 Bite Cells Not Reportable 06/24/21 04:55 Crenated Cell Not Reportable 06/24/21 04:55 Elliptocytes Not Reportable 06/24/21 04:55 Acanthocytes (Spur) Not Reportable 06/24/21 04:55 Rouleaux Not Reportable 06/24/21 04:55 Hemoglobin C Crystals Not Reportable 06/24/21 04:55 Schistocytes Not Reportable 06/24/21 04:55 Malaria parasites Not Reportable 06/24/21 04:55 Luis Bodies Not Reportable 06/24/21 04:55 Hem Pathologist Commnt No 06/24/21 04:55 PT 20.2 Sec. (12.2-14.9) H 06/25/21 09:05 INR 1.68 (0.87-1.13) H 06/25/21 09:05 APTT 26.7 Sec. (24.2-36.6) 06/26/21 10:00 Fibrinogen 328 mg/dl (211-480) 06/26/21 10:00 D-Dimer 1363.54 ng/mlDDU (0-234) H 06/26/21 10:00 ABG pH 7.230 pH Units (7.350-7.450) L 06/27/21 Unknown POC ABG pCO2 60.2 mmHg (32.0-48.0) H 06/26/21 05:14 ABG pCO2 64.0 mm Hg 06/27/21 Unknown POC ABG pO2 113.7 mmHg (83-108) H 06/26/21 05:14 ABG pO2 92.0 mm Hg (80.0-90.0) H 06/27/21 Unknown POC ABG HCO3 26.9 06/26/21 05:14 ABG HCO3 26.2 mmol/L (20.0-26.0) H 06/27/21 Unknown ABG O2 Saturation 96.8 % (95.0-99.0) 06/27/21 Unknown ABG O2 Content 11.1 (0.0-44) 06/27/21 Unknown POC ABG Base Excess -0.8 06/26/21 05:14 ABG Base Excess -1.7 mmol/L (-2.0-3.0) 06/27/21 Unknown ABG Hemoglobin 8.2 gm/dl (12.0-16.0) L 06/27/21 Unknown ABG Oxyhemoglobin 97.3 (94-98) 06/26/21 05:14 ABG Carboxyhemoglobin 1.7 % (0.0-5.0) 06/27/21 Unknown ABG Methemoglobin 0.5 % (0.0-1.5) 06/27/21 Unknown ABG Sodium 133.3 mmol/L (136.0-145.0) L 06/26/21 05:14 ABG Potassium 4.7 mmol/L (3.40-4.50) H 06/26/21 05:14 ABG Chloride 98.0 mmol/L (98-107) 06/26/21 05:14 ABG Glucose 353 mg/dL (65-95) H 06/26/21 05:14 Oxyhemoglobin 94.6 % (95.0-99.0) L 06/27/21 Unknown Carboxyhemoglobin 0.4 (0.5-1.5) L 06/26/21 05:14 FiO2 75 % 06/27/21 Unknown FiO2 % 85.0 06/26/21 05:14 Sodium 133 mmol/L (137-145) L 06/27/21 06:40 Potassium 5.4 mmol/L (3.6-5.0) H 06/27/21 06:40 Chloride 93.4 mmol/L (98-107) L 06/27/21 06:40 Carbon Dioxide 22 mmol/L (22-30) 06/27/21 06:40 Anion Gap 23 mmol/L 06/27/21 06:40 BUN 96 mg/dL (7-17) H 06/27/21 06:40 Creatinine 5.6 mg/dL (0.6-1.2) H 06/27/21 06:40 Estimated GFR 9 ml/min 06/27/21 06:40 BUN/Creatinine Ratio 17 % 06/27/21 06:40 Glucose 388 mg/dL (65-100) H 06/27/21 06:40 POC Glucose 329 mg/dL (70-105) H 06/27/21 05:13 Hemoglobin A1c 9.5 % (4-6) H 06/07/21 19:11 Calcium 8.3 mg/dL (8.4-10.2) L 06/27/21 06:40 Phosphorus 8.70 mg/dL (2.5-4.5) H 06/27/21 06:40 Magnesium 2.30 mg/dL (1.7-2.3) 06/27/21 06:40 Ferritin 1094.0 ng/mL (10.0-200.0) H 06/23/21 Unknown Total Bilirubin 0.40 mg/dL (0.1-1.2) 06/25/21 09:05 AST 17 units/L (5-40) 06/25/21 09:05 ALT 25 units/L (7-56) 06/25/21 09:05 Alkaline Phosphatase 84 units/L (35-129) 06/25/21 09:05 Lactate Dehydrogenase 606 units/L (91-180) H 06/10/21 23:14 Troponin T 0.021 ng/mL (0.00-0.029) 06/08/21 13:49 C-Reactive Protein 4.40 mg/dL (0.00-1.30) H 06/23/21 04:42 Serum Total Protein 7.0 g/dL (6.1-8.1) 06/10/21 23:14 Total Protein 5.1 g/dL (6.3-8.2) L 06/25/21 09:05 Albumin 2.5 g/dL (3.9-5) L 06/25/21 09:05 Albumin/Globulin Ratio 1.0 % 06/25/21 09:05 [id number] 0.5 g/dL (0.2-0.3) H 06/10/21 23:14 [id number] 1.7 g/dL (0.5-0.9) H 06/10/21 23:14 Beta Globulins 0.6 g/dL (0.2-0.5) H 06/10/21 23:14 Gamma Globulins 1.3 g/dL (0.8-1.7) 06/10/21 23:14 Abnorm Protein Band 1 see below 06/10/21 23:14 PEP Interpretation see below H 06/10/21 23:14 Triglycerides 209 mg/dL (2-149) H 06/07/21 19:11 Cholesterol 165 mg/dL (50-199) 06/07/21 19:11 LDL Cholesterol Direct 79 mg/dL (50-130) 06/07/21 19:11 HDL Cholesterol 35 mg/dL (40-59) L 06/07/21 19:11 Cholesterol/HDL Ratio 4.71 % 06/07/21 19:11 Procalcitonin 0.91 ng/mL (<0.15) 06/07/21 19:11 Arterial Blood Glucose 353 mg/dL (65-95) H 06/26/21 05:14 Arterial Blood Ionized Calcium 4.1 mg/dL (4.6-5.3) L 06/23/21 21:12 Urine Color Sole (Yellow) 06/23/21 17:40 Urine Turbidity Cloudy (Clear) 06/23/21 17:40 Urine pH 6.0 (5.0-7.0) 06/23/21 17:40 Ur Specific Preemption 1.017 (1.003-1.030) 06/23/21 17:40 Urine Protein >500 mg/dL (Negative) 06/23/21 17:40 Urine Glucose (UA) 50 mg/dL (Negative) 06/23/21 17:40 Urine Ketones Neg mg/dL (Negative) 06/23/21 17:40 Urine Blood Lg (Negative) 06/23/21 17:40 Urine Nitrite Neg (Negative) 06/23/21 17:40 Urine Bilirubin Neg (Negative) 06/23/21 17:40 Urine Urobilinogen < 2.0 mg/dL (<2.0) 06/23/21 17:40 Ur Leukocyte Esterase Mod (Negative) 06/23/21 17:40 Urine WBC (Auto) > 182.0 /HPF (0.0-6.0) H 06/23/21 17:40 Urine RBC (Auto) > 182.0 /HPF (0.0-6.0) 06/23/21 17:40 Urine WBC Clumps 3+ /HPF 06/23/21 17:40 Uric Acid Crystals 1+ 06/23/21 17:40 Urine Mucus Few /HPF 06/23/21 17:40 Random Vancomycin 13.8 ug/mL (0-40.0) 06/26/21 07:00 Coronavirus (PCR) Positive (Negative) A 06/08/21 08:30 Hepatitis A IgM Ab Non-reactive (NonReactive) 06/24/21 15:57 Hep Bs Antigen Nonreactive (Negative) 06/24/21 15:57 Hep B Core IgM Ab Non-reactive (NonReactive) 06/24/21 15:57 Hepatitis C Antibody Non-reactive (NonReactive) 06/24/21 15:57 Blood Type B POSITIVE 06/07/21 22:34 Antibody Screen Negative 06/07/21 22:34 Past History Past Medical History: diabetes, hypertension, hyperlipidemia, hypothyroidism Past Surgical History: No surgical history Social history: lives with family Family history: diabetes, hypertension Medications and Allergies Allergies Allergy/AdvReac Type Severity Reaction Status Date / Time latex Allergy Unknown Verified 03/19/19 17:03 shellfish derived Allergy Anaphylaxis Verified 03/19/19 17:03 strawberry Allergy Anaphylaxis Verified 03/19/19 17:03 tomato Allergy Anaphylaxis Verified 03/19/19 17:03 nuts Allergy Anaphylaxis Uncoded 03/19/19 17:03 Home Medications Medication Instructions Recorded Confirmed Last Taken Type Albuterol Sulfate [Ventolin HFA] 2 puff IH Q4H PRN 01/29/14 06/11/21 02/01/15 History Levothyroxine (Nf) [Synthroid (Nf)] 275 mcg PO QAM 01/29/14 06/11/21 02/01/15 History Fluticasone/Salmeterol [Advair 1 each IH PRN PRN 01/26/15 06/11/21 02/02/15 10:00 History Diskus 250-50 mcg] Apixaban [Eliquis starter pack] 5 mg PO BID 09/13/19 06/11/21 Unknown History Insulin Aspart Prot/Insuln Asp 45 unit SUB-Q QAM 09/13/19 06/11/21 Unknown History [Novolog Mix 70-30 Flexpen] Insulin Glargine,Hum.rec.anlog 25 unit SQ HS 09/13/19 06/11/21 Unknown History [Basaglar Kwikpen U-100] Lovastatin [Altoprev] 20 mg PO DAILY 09/13/19 06/11/21 Unknown History Docusate Sodium [Colace CAP] 100 mg PO BID PRN #30 capsule 09/17/19 06/11/21 Unknown Rx Loratadine/Pseudoephedrine 1 each PO Q24HR #10 tablet 09/17/19 06/11/21 Unknown Rx [Claritin-D 24HR] Ondansetron [Zofran Odt] 4 mg PO Q8HR #20 tab.rapdis 09/17/19 06/11/21 Unknown Rx carvediloL [Coreg] 3.125 mg PO BID #60 tablet 09/17/19 06/11/21 Unknown Rx hydrALAZINE [Apresoline TAB] 25 mg PO Q8HR #90 tablet 09/17/19 06/11/21 Unknown Rx Active Meds: Active Medications Acetaminophen (Acetaminophen 325 Mg Tab) 650 mg PO Q4H PRN PRN Reason: Pain MILD(1-3)/Fever >100.5/MARTÍNEZ Last Admin: 06/24/21 11:45 Dose: 650 mg Documented by: Albumin Human (Albumin Human 25% (25 Gm/100 Ml) Inj) 25 gm IV KORINA PRN PRN Reason: Hypotension Albuterol (Albuterol 2.5 Mg/3 Ml Nebu) 2 mg IH Q4HRT PRN PRN Reason: Shortness Of Breath Lipase/Protease/Amylase (Lipase 10,500/Protease 25,000/Amylase 43,750 (Units) Dr Barahona) 1 each FEEDTUBE PRN PRN PRN Reason: For Clogged Feeding Tube Ascorbic Acid (Ascorbic Acid 500 Mg Tab) 500 mg PO BID [facility] Last Admin: 06/26/21 21:01 Dose: 500 mg Documented by: Atorvastatin Calcium (Atorvastatin 10 Mg Tab) 10 mg PO DAILY [facility] Last Admin: 06/26/21 09:55 Dose: 10 mg Documented by: Dextrose (Dextrose 50% In Water (25gm) 50 Ml Syringe) 50 ml IV Q30MIN PRN; Protocol PRN Reason: Hypoglycemia Last Admin: 06/20/21 12:16 Dose: 50 ml Documented by: Docusate Sodium (Docusate Sodium 100 Mg/10 Ml Oral Liqd) 100 mg PO BID PRN PRN Reason: Constipation Famotidine (Famotidine 20 Mg/2 Ml Inj) 10 mg IV BID LEONOR Last Admin: 06/26/21 21:02 Dose: 10 mg Documented by: Fentanyl (Fentanyl 100 Mcg/2 Ml Inj) 50 mcg IV Q10MIN PRN PRN Reason: ANALGESIA Last Admin: 06/27/21 05:26 Dose: 50 mcg Documented by: Hydrophilic Ointment (Lip Therapy Vaseline) 1 applic TP Q2HR PRN PRN Reason: Dry Lips Fentanyl Citrate (Fentanyl Drip Premix) 2,000 mcg in 100 mls @ 8.2 mls/hr IV TITR LEONOR; Protocol Last Admin: 06/27/21 07:51 Dose: 2 mcg/kg/hr, 16.4 mls/hr Documented by: NORepinephrine/NS 8 MG-250 ML (Norepinephrine/Ns 8 Mg-250 Ml (Double Conc)) 8 mg in 250 mls @ 3.75 mls/hr IV TITRATE LEONOR; Protocol Last Titration: 06/25/21 21:05 Dose: 0 mcg/min, 0 mls/hr Documented by: Cefepime HCl (Cefepime/Ns 2 Gm/100 Ml) 2 gm in 100 mls @ 200 mls/hr IV Q24H LEONOR; Protocol Last Admin: 06/27/21 08:19 Dose: 200 mls/hr Documented by: Vasopressin 20 unit/ Sodium (Chloride) 101 mls @ 9.09 mls/hr IV TITR LEONOR; Protocol Last Titration: 06/25/21 16:25 Dose: 0 units/min, 0 mls/hr Documented by: Sodium Chloride (Nacl 0.9% 500 Ml) 500 mls @ 1 mls/hr IV DIRECT PRN PRN Reason: ARTERIAL LINE FLUSH Lacosamide 100 mg/ Sodium (Chloride) 110 mls @ 100 mls/hr IV Q12H LEONOR Last Admin: 06/27/21 03:21 Dose: 100 mls/hr Documented by: Sodium Chloride (Nacl 0.9%) 100 mls @ 999 mls/hr IV KORINA PRN PRN Reason: Hypotension Sodium Chloride (Nacl 0.9%) 100 mls @ 999 mls/hr IV KORINA PRN PRN Reason: Hypotension Amiodarone HCl 900 mg/ (Dextrose) 500 mls @ 0 mls/hr IV DIRECT LEONOR; Protocol Last Admin: 06/27/21 06:46 Dose: 0.5 mls/hr Documented by: Insulin Human Isoph/Insulin Regular (Insulin Nph/Regular 70/30 Inj) 25 unit SUB-Q TIDDIAB LEONOR Insulin Human Regular (Insulin Regular, Human 100 Units/1 Ml) 0 units SUB-Q Q6HR LEONOR; Protocol Last Admin: 06/27/21 06:40 Dose: 8 units Documented by: Levothyroxine Sodium (Levothyroxine 100 Mcg Inj) 137.5 mcg IV DAILY@0600 [facility] Last Admin: 06/27/21 05:41 Dose: 137.5 mcg Documented by: Methylprednisolone Sodium Succinate (Methylprednisolone Sod Succinate 125 Mg/2 Ml Inj) 100 mg IV Q8H [facility] Last Admin: 06/27/21 08:10 Dose: 100 mg Documented by: Midazolam HCl (Midazolam 5 Mg/5 Ml Inj Mdv) 5 mg IV PRN NR Stop: 07/06/21 23:59 Midodrine (Midodrine 5 Mg Tab) 10 mg PO Q8H [facility] Last Admin: 06/27/21 06:46 Dose: 10 mg Documented by: Multi-Ingred Cream/Lotion/Oil/Oint (Mineral Oil/Petrolatum, White Ophth Oint 3.5 Gm) 1 applic OU Q4HR PRN PRN Reason: Dry Eye(s) Ondansetron HCl (Ondansetron 4 Mg/2 Ml Inj) 4 mg IV Q8H PRN PRN Reason: Nausea And Vomiting Last Admin: 06/20/21 22:15 Dose: 4 mg Documented by: Senna/Docusate Sodium (Sennosides/Docusate Sodium 8.6/50 Mg Tab) 1 tab FEEDTUBE BID [facility] Last Admin: 06/26/21 21:01 Dose: 1 tab Documented by: Simple Syrup (Simple Syrup 15 Ml) 15 ml FEEDTUBE PRN PRN PRN Reason: Hypoglycemia Simple Syrup (Simple Syrup 15 Ml) 30 ml FEEDTUBE PRN PRN PRN Reason: Hypoglycemia Sodium Bicarbonate (Sodium Bicarbonate 325 Mg Tab) 325 mg FEEDTUBE PRN PRN PRN Reason: For Clogged Feeding Tube Sodium Chloride (Sodium Chloride 0.9% 10 Ml Flush Syringe) 10 ml IV BID [facility] Last Admin: 06/26/21 22:19 Dose: 10 ml Documented by: Sodium Chloride (Sodium Chloride 0.9% 10 Ml Flush Syringe) 10 ml IV PRN PRN PRN Reason: LINE FLUSH Zinc Sulfate (Zinc Sulfate 220 Mg Cap) 220 mg PO BID [facility] Last Admin: 06/26/21 21:01 Dose: 220 mg Documented by: Exam - Constitutional Vitals: Last Vital Signs Temp 98.2 F 06/27/21 07:38 Pulse 108 H 06/27/21 08:00 Resp 24 06/27/21 08:00 BP 113/73 06/27/21 08:00 Pulse Ox 92 06/27/21 08:00 Results - Labs lab Results: Laboratory Results - last 24 hr 06/26/21 06/26/21 06/26/21 05:14 10:00 10:00 WBC RBC Hgb Hct MCV MCH MCHC RDW [place] % (Auto) Eos % (Auto) [place] # (Auto) Eos # (Auto) Baso # (Auto) Seg Neutrophils % Seg Neutrophils # APTT 26.7 Fibrinogen 328 D-Dimer 1363.54 H ABG pH 7.268 L POC ABG pCO2 60.2 H ABG pCO2 POC ABG pO2 113.7 H ABG pO2 POC ABG HCO3 26.9 ABG HCO3 ABG O2 Saturation 98.0 ABG O2 Content POC ABG Base Excess -0.8 ABG Base Excess ABG Hemoglobin 10.9 L ABG Oxyhemoglobin 97.3 ABG Carboxyhemoglobin ABG Methemoglobin 0.3 ABG Sodium 133.3 L ABG Potassium 4.7 H ABG Chloride 98.0 ABG Glucose 353 H Oxyhemoglobin Carboxyhemoglobin 0.4 L FiO2 FiO2 % 85.0 Sodium 136 L Potassium 4.8 Chloride 96.1 L Carbon Dioxide 25 Anion Gap 20 BUN 78 H Creatinine 4.6 H Estimated GFR 12 BUN/Creatinine Ratio 17 Glucose 378 H POC Glucose Calcium 8.3 L Phosphorus Magnesium Arterial Blood Glucose 353 H 06/26/21 06/26/21 06/26/21 13:01 18:53 23:08 WBC RBC Hgb Hct MCV MCH MCHC RDW [place] % (Auto) Eos % (Auto) [place] # (Auto) Eos # (Auto) Baso # (Auto) Seg Neutrophils % Seg Neutrophils # APTT Fibrinogen D-Dimer ABG pH POC ABG pCO2 ABG pCO2 POC ABG pO2 ABG pO2 POC ABG HCO3 ABG HCO3 ABG O2 Saturation ABG O2 Content POC ABG Base Excess ABG Base Excess ABG Hemoglobin ABG Oxyhemoglobin ABG Carboxyhemoglobin ABG Methemoglobin ABG Sodium ABG Potassium ABG Chloride ABG Glucose Oxyhemoglobin Carboxyhemoglobin FiO2 FiO2 % Sodium Potassium Chloride Carbon Dioxide Anion Gap BUN Creatinine Estimated GFR BUN/Creatinine Ratio Glucose POC Glucose 363 H 329 H 337 H Calcium Phosphorus Magnesium Arterial Blood Glucose 06/27/21 06/27/21 06/27/21 00:15 05:13 06:40 WBC 12.5 H RBC 3.85 Hgb 10.9 Hct 33.9 MCV 88 MCH 28 MCHC 32 RDW 16.1 H [place] % (Auto) 4.6 Eos % (Auto) 0.0 [place] # (Auto) 0.6 Eos # (Auto) 0.0 Baso # (Auto) 0.0 Seg Neutrophils % Trimming Caser Seg Neutrophils # 11.3 H APTT Fibrinogen D-Dimer ABG pH POC ABG pCO2 ABG pCO2 POC ABG pO2 ABG pO2 POC ABG HCO3 ABG HCO3 ABG O2 Saturation ABG O2 Content POC ABG Base Excess ABG Base Excess ABG Hemoglobin ABG Oxyhemoglobin ABG Carboxyhemoglobin ABG Methemoglobin ABG Sodium ABG Potassium ABG Chloride ABG Glucose Oxyhemoglobin Carboxyhemoglobin FiO2 FiO2 % Sodium Potassium Chloride Carbon Dioxide Anion Gap BUN Creatinine Estimated GFR BUN/Creatinine Ratio Glucose POC Glucose 308 H 329 H Calcium Phosphorus Magnesium Arterial Blood Glucose 06/27/21 06/27/21 06:40 Unknown WBC RBC Hgb Hct MCV MCH MCHC RDW [place] % (Auto) Eos % (Auto) [place] # (Auto) Eos # (Auto) Baso # (Auto) Seg Neutrophils % Seg Neutrophils # APTT Fibrinogen D-Dimer ABG pH 7.230 L POC ABG pCO2 ABG pCO2 64.0 POC ABG pO2 ABG pO2 92.0 H POC ABG HCO3 ABG HCO3 26.2 H ABG O2 Saturation 96.8 ABG O2 Content 11.1 POC ABG Base Excess ABG Base Excess -1.7 ABG Hemoglobin 8.2 L ABG Oxyhemoglobin ABG Carboxyhemoglobin 1.7 ABG Methemoglobin 0.5 ABG Sodium ABG Potassium ABG Chloride ABG Glucose Oxyhemoglobin 94.6 L Carboxyhemoglobin FiO2 75 FiO2 % Sodium 133 L Potassium 5.4 H Chloride 93.4 L Carbon Dioxide 22 Anion Gap 23 BUN 96 H Creatinine 5.6 H Estimated GFR 9 BUN/Creatinine Ratio 17 Glucose 388 H POC Glucose Calcium 8.3 L Phosphorus 8.70 H Magnesium 2.30 Arterial Blood Glucose
[2021-06-27] MEDS: FAMOTIDINE 20 MG/2 ML INJ IV SCH ×2 (09:40→21:33)
[2021-06-27] MEDS: ZINC SULFATE 220 MG CAP PO SCH ×2 (09:40→21:33)
[2021-06-27] MEDS: SENNOSIDES/DOCUSATE SODIUM 8.6/50 MG TAB FEEDTUBE SCH ×2 (09:40→21:33)
[2021-06-27] MEDS: ASCORBIC ACID 500 MG TAB PO SCH ×2 (09:40→21:33)
[2021-06-27] MEDS ORDERED: APIXABAN 2.5 MG TAB PO SCH (10:00)
[2021-06-27 11:39] LABS: Large Platelets 1+
[2021-06-27 11:40] LABS: Platelet Estimate 30
[2021-06-27] MEDS ORDERED: SODIUM CHLORIDE 0.9% 500 ML 500 ML IV NR (11:42)
[2021-06-27 12:11] LABS: Platelet Count 23 K/mm3 (140-440)
[2021-06-27] MEDS ORDERED: POLYETHYLENE GLYCOL 3350 17 GM POWDER PO PRN (13:16)
--- NOTE | 2021-06-27 13:32 | Progress Note ---
Assessment and Plan Cultures: SARS CoV2 PCR: positive 06/08/2021 blood culture: No growth Urine culture: skin ade. A/P: 76-year-old female with diabetes, hypertension, history of liver abscess, Klebsiella bacteremia admitted with fever, chills, shortness of breath: #Bilateral pneumonia: secondary to COVID-19. Unvaccinated. Chest x-ray revealed bilateral patchy multifocal pneumonia, CT chest, abdomen pelvis revealed no pulmonary embolism, showed bilateral pneumonia, no acute abnormality in the abdomen or pelvis. #Acute hypoxic respiratory failure: on the vent #DM #HTN #Thrombocytopenia #TREMAINE: Reanlly dose medications Recs: Currently on high-dose methylprednisone Completed Remdesivir prophylactic anticoagulation based on d-dimer per hospital protocol Stopped vancomcyin given negative blood cultures. Complete 7 days cefepime trend ferritin, d-dimer, CRP every 2-3 days Radha Butler MD [facility] O: [phone] F: [phone] Subjective Date of service: 06/27/21 Principal diagnosis: ARDS; Pneumonia; COVID-19 virus infection; TREMAINE; DM II; Morbid obesity Interval history: Afebrile, white count slightly elevated. On the vent. Objective - Exam Narrative Exam: Physical exam deferred to reduce risk of transmission of COVID-19. Please refer to primary team's note. - Constitutional Vitals: Vital Signs Temp Pulse Resp BP Pulse Ox 98.0 F 91 H 25 H 93/63 96 06/27/21 12:02 06/27/21 13:00 06/27/21 13:00 06/27/21 13:00 06/27/21 13:00 Temperature -Last 24 Hours Temperature 98.0 F Temperature 98.2 F Temperature 97.3 F Temperature 97.3 F Temperature 97.7 F - Labs CBC & Chem 7: 06/27/21 06:40 06/27/21 06:40 Labs: Abnormal lab results 06/26/21 06/26/21 06/27/21 Range/Units 18:53 23:08 00:15 WBC (4.5-11.0) K/mm3 RDW (13.2-15.2) % Plt Count (140-440) K/mm3 Seg Neutrophils # (1.8-7.7) K/mm3 ABG pH (7.350-7.450) pH Units ABG pO2 (80.0-90.0) mm Hg ABG HCO3 (20.0-26.0) mmol/L ABG Hemoglobin (12.0-16.0) gm/dl Oxyhemoglobin (95.0-99.0) % Sodium (137-145) mmol/L Potassium (3.6-5.0) mmol/L Chloride (98-107) mmol/L BUN (7-17) mg/dL Creatinine (0.6-1.2) mg/dL Glucose (65-100) mg/dL POC Glucose 329 H 337 H 308 H (70-105) mg/dL Calcium (8.4-10.2) mg/dL Phosphorus (2.5-4.5) mg/dL 06/27/21 06/27/21 06/27/21 Range/Units 05:13 06:40 06:40 WBC 12.5 H (4.5-11.0) K/mm3 RDW 16.1 H (13.2-15.2) % Plt Count 23 L (140-440) K/mm3 Seg Neutrophils # 11.3 H (1.8-7.7) K/mm3 ABG pH (7.350-7.450) pH Units ABG pO2 (80.0-90.0) mm Hg ABG HCO3 (20.0-26.0) mmol/L ABG Hemoglobin (12.0-16.0) gm/dl Oxyhemoglobin (95.0-99.0) % Sodium 133 L (137-145) mmol/L Potassium 5.4 H (3.6-5.0) mmol/L Chloride 93.4 L (98-107) mmol/L BUN 96 H (7-17) mg/dL Creatinine 5.6 H (0.6-1.2) mg/dL Glucose 388 H (65-100) mg/dL POC Glucose 329 H (70-105) mg/dL Calcium 8.3 L (8.4-10.2) mg/dL Phosphorus 8.70 H (2.5-4.5) mg/dL 06/27/21 06/27/21 Range/Units 11:46 Unknown WBC (4.5-11.0) K/mm3 RDW (13.2-15.2) % Plt Count (140-440) K/mm3 Seg Neutrophils # (1.8-7.7) K/mm3 ABG pH 7.230 L (7.350-7.450) pH Units ABG pO2 92.0 H (80.0-90.0) mm Hg ABG HCO3 26.2 H (20.0-26.0) mmol/L ABG Hemoglobin 8.2 L (12.0-16.0) gm/dl Oxyhemoglobin 94.6 L (95.0-99.0) % Sodium (137-145) mmol/L Potassium (3.6-5.0) mmol/L Chloride (98-107) mmol/L BUN (7-17) mg/dL Creatinine (0.6-1.2) mg/dL Glucose (65-100) mg/dL POC Glucose 330 H (70-105) mg/dL Calcium (8.4-10.2) mg/dL Phosphorus (2.5-4.5) mg/dL
[2021-06-27] MEDS: METOCLOPRAMIDE 10 MG/2 ML INJ IV SCH ×2 (13:56→21:33)
--- NOTE | 2021-06-27 13:58 | Progress Note ---
<HARPER ROCHA - Last Filed: 06/27/21 13:59> Assessment and Plan Patient is a 61 y/o female with a PMHx of HTN, hypothyroidism, CKD III, H/o DVT Acute hypoxic Respiratory failure Sepsis Breakthrough COVID PNA * Patient vaccinated with Memo and Memo * Patient intubated * COVID PCR positive * ID following * Pulmonlogy following Afib w/RVR Elevated troponins * Troponins minimally elevated and trending down 0.043->0.031. In setting of Sepsis secondary to PNA * Lexiscan MPI stress -11/03/2019-EF (30-39%), Stress/ECG changes are normal. This study suggests an intermediate risk for cardiovascular event and is associated with a cardiac mortality of 1-3% per year. There is a moderate defect of moderate intensity present in the basal anterior and mid anterior location. The defect is non-reversible (fixed). There is a moderate defect of moderate intensity present in the basal anteroseptal and mid anteroseptal location. The defect is non-reversible (fixed). There is a moderate defect of moderate intensity present in the apex location. The defect is non-reversible (fixed). * Echo 06/07/2021-EF 50 to 55%, right ventricle not well visualized, right ventricle systolic function is normal, left atrium is normal in size, right atrium is not well visualized, pulmonic valve not well visualized. * Telemetry reviewed: afib 100s. * Currently on amio gtt TREMAINE * Nephrology following Thrombocytopenia * Hem/Onc following Plan: Agree with holding anticoagulation due to thrombocytopenia. Continue amio gtt with plan to wean down amio gtt and convert o Amio PO Patient seen in conjunction with Dr. Sam who agrees with this plan of care. Will continue to follow - Patient Problems (1) Acute respiratory failure with hypoxia Current Visit: Yes Status: Acute (2) Acute kidney injury superimposed on CKD Current Visit: No Status: Acute (3) Elevated troponin Current Visit: No Status: Acute (4) History of DVT (deep vein thrombosis) Current Visit: No Status: Acute (5) Diabetes mellitus type 2, insulin dependent Current Visit: No Status: Chronic (6) Hypothyroidism Current Visit: No Status: Chronic (7) Morbid obesity Current Visit: No Status: Chronic (8) TREAMINE (acute kidney injury) Current Visit: Yes Status: Acute (9) Pneumonia due to COVID-19 virus Current Visit: Yes Status: Acute (10) Leukocytosis (leucocytosis) Current Visit: No Status: Acute Qualifiers: Leukocytosis type: bandemia Qualified Code(s): D72.825 - Bandemia Subjective Date of service: 06/27/21 Principal diagnosis: ARDS; Pneumonia; COVID-19 virus infection; TREMAINE; DM II; Morbid obesity Interval history: Patient intubated and sedated afib 100s on monitor Objective Vital Signs Temp Pulse Pulse Resp BP Pulse Ox 06/27/21 13:00 91 H 25 H 93/63 96 06/27/21 12:02 98.0 F 06/27/21 12:01 95 H 25 H 118/73 95 06/27/21 12:00 99 H 98 H 95 06/27/21 11:00 100 H 25 H 111/59 97 06/27/21 10:00 101 H 25 H 101/70 92 06/27/21 09:36 103 H 107/67 91 06/27/21 09:00 105 H 25 H 134/74 91 06/27/21 08:00 104 H 108 H 24 113/73 91 06/27/21 07:38 98.2 F 06/27/21 07:00 104 H 24 123/78 87 06/27/21 06:00 131 H 25 H 142/83 87 06/27/21 05:01 131 H 19 156/121 88 06/27/21 04:00 121 H 25 H 170/95 97 06/27/21 03:54 97.3 F L 06/27/21 03:00 77 26 H 132/71 98 06/27/21 02:00 78 25 H 121/66 97 06/27/21 01:00 78 25 H 125/64 96 06/27/21 00:27 88 125/56 96 06/27/21 00:01 84 25 H 130/66 96 06/27/21 00:00 84 84 25 H 130/66 96 06/26/21 23:50 84 25 H 129/65 96 06/26/21 23:43 97.3 F L 06/26/21 23:00 85 25 H 137/66 95 06/26/21 22:00 94 H 25 H 134/71 96 06/26/21 21:00 96 H 25 H 127/68 96 06/26/21 20:04 96 H 126/66 96 06/26/21 20:00 90 86 25 H 126/66 97 06/26/21 19:59 97.7 F 06/26/21 19:51 95 H 25 H 130/66 97 06/26/21 19:41 94 H 25 H 128/68 98 06/26/21 19:30 91 H 27 H 128/68 97 06/26/21 19:21 92 H 27 H 123/70 98 06/26/21 19:11 93 H 26 H 116/70 97 06/26/21 19:00 99 H 26 H 116/70 96 06/26/21 18:51 96 H 19 123/70 95 06/26/21 18:41 96 H 27 H 116/67 95 06/26/21 18:30 98 H 22 116/67 94 06/26/21 18:21 104 H 21 112/70 93 06/26/21 18:11 102 H 24 114/77 94 06/26/21 18:00 101 H 20 114/77 93 06/26/21 17:51 105 H 28 H 128/70 92 06/26/21 17:41 104 H 25 H 128/70 92 06/26/21 17:30 104 H 21 128/70 94 06/26/21 17:21 112 H 22 134/69 93 06/26/21 17:11 116 H 19 118/55 93 06/26/21 17:00 111 H 22 136/72 93 06/26/21 16:55 112/58 95 06/26/21 16:00 86 97 06/26/21 15:51 97 H 25 H 112/58 97 06/26/21 15:41 97 H 25 H 112/58 97 06/26/21 15:30 99 H 24 112/58 97 06/26/21 15:21 97 H 25 H 121/53 97 06/26/21 15:11 107 H 24 121/53 97 06/26/21 15:00 104 H 25 H 121/53 97 06/26/21 14:51 100 H 24 126/57 97 06/26/21 14:41 98 H 25 H 126/57 97 06/26/21 14:30 97 H 25 H 126/57 97 06/26/21 14:21 99 H 25 H 112/58 96 06/26/21 14:11 97 H 25 H 112/58 97 06/26/21 14:00 98 H 25 H 112/58 97 - Physical Examination General: Other (intubated and sedated) HEENT: Positive: PERRL Neck: Positive: trachea midline Cardiac: Positive: irregularly irregular Lungs: Positive: Ventilated Respirations Neuro: Positive: Other (intubated and sedated) Abdomen: Positive: Soft, Active Bowel Sounds Skin: Negative: Rash, Suspicious Lesions, Ulceration Extremities: Present: upper extr. pulses, lower extr. pulses. Absent: edema - Labs and Meds CBC 06/27/21 Range/Units 06:40 WBC 12.5 H (4.5-11.0) K/mm3 RBC 3.85 (3.65-5.03) M/mm3 Hgb 10.9 (10.1-14.3) gm/dl Hct 33.9 (30.3-42.9) % Plt Count 23 L (140-440) K/mm3 [place] # (Auto) 0.6 (0.0-0.8) K/mm3 Eos # (Auto) 0.0 (0.0-0.4) K/mm3 Baso # (Auto) 0.0 (0.0-0.1) K/mm3 Comprehensive Metabolic Panel 06/27/21 Range/Units 06:40 Sodium 133 L (137-145) mmol/L Potassium 5.4 H (3.6-5.0) mmol/L Chloride 93.4 L (98-107) mmol/L Carbon Dioxide 22 (22-30) mmol/L BUN 96 H (7-17) mg/dL Creatinine 5.6 H (0.6-1.2) mg/dL Glucose 388 H (65-100) mg/dL Calcium 8.3 L (8.4-10.2) mg/dL - Imaging and Cardiology EKG: report reviewed Echo: report reviewed - Telemetry EKG Rhythm: Atrial Fibrillation - EKG Supraventricular dysrhythmia: atrial fibrillation - Allied health notes Allied health notes reviewed: nursing <LUCY SAM R - Last Filed: 06/28/21 08:27> Assessment and Plan pt ngt having residuals, once cleared will start oral meds Objective Vital Signs Temp Pulse Pulse Resp BP Pulse Ox Pulse Ox 06/28/21 07:33 97.6 F 06/28/21 07:01 115 H 26 H 168/81 88 06/28/21 06:01 121 H 15 183/90 86 06/28/21 05:01 118 H 17 167/101 90 06/28/21 04:14 119 H 142/94 93 06/28/21 04:00 97.5 F L 101 H 110 H 29 H 122/75 97 06/28/21 03:01 107 H 30 H 109/68 97 06/28/21 02:00 86 30 H 104/54 96 06/28/21 01:00 92 H 29 H 115/55 95 06/28/21 00:34 109 H 150/65 95 06/28/21 00:00 114 H 112 H 22 118/94 91 06/27/21 23:00 115 H 21 141/80 95 06/27/21 22:43 110 H 18 117/69 95 06/27/21 22:29 111 H 133/70 95 06/27/21 22:00 108 H 30 H 125/68 93 06/27/21 21:00 111 H 30 H 178/89 93 06/27/21 20:00 93 H 93 H 29 H 107/55 92 06/27/21 19:30 98.0 F 108 H 30 H 105/65 98 06/27/21 19:00 117 H 29 H 105/65 98 06/27/21 18:45 119 H 109/61 06/27/21 18:30 108 H 110/59 06/27/21 18:15 117 H 106/58 06/27/21 18:00 122 H 29 H 99/47 92 06/27/21 17:45 118 H 94/63 06/27/21 17:35 97.5 F L 06/27/21 17:30 115 H 92/62 06/27/21 17:15 113 H 103/64 06/27/21 17:00 116 H 30 H 110/74 90 06/27/21 16:45 106 H 133/69 06/27/21 16:35 102 H 168/75 06/27/21 16:30 94 H 83/48 06/27/21 16:20 98.0 F 117 H 26 H 97/58 99 94 06/27/21 16:00 101 H 106 H 25 H 105/60 92 06/27/21 15:01 90 25 H 93/59 98 06/27/21 14:00 86 23 107/56 98 06/27/21 13:00 91 H 25 H 93/63 96 06/27/21 12:02 98.0 F 06/27/21 12:01 95 H 25 H 118/73 95 06/27/21 12:00 99 H 98 H 95 06/27/21 11:45 94 H 98/57 98 06/27/21 11:00 100 H 25 H 111/59 97 06/27/21 10:00 101 H 25 H 101/70 92 06/27/21 09:36 103 H 107/67 91 06/27/21 09:00 105 H 25 H 134/74 91 - Labs and Meds Coagulation 06/28/21 Range/Units 04:25 PT 16.5 H (12.2-14.9) Sec. INR 1.27 H (0.87-1.13) CBC 06/27/21 06/28/21 Range/Units 06:40 04:25 WBC 11.6 H (4.5-11.0) K/mm3 RBC 3.44 L (3.65-5.03) M/mm3 Hgb 9.9 L (10.1-14.3) gm/dl Hct 30.4 (30.3-42.9) % Plt Count 23 L 36 L (140-440) K/mm3 Lymph # (Auto) 0.9 L (1.2-5.4) K/mm3 [place] # (Auto) 0.6 0.7 (0.0-0.8) K/mm3 Eos # (Auto) 0.0 0.0 (0.0-0.4) K/mm3 Baso # (Auto) 0.0 0.0 (0.0-0.1) K/mm3 Comprehensive Metabolic Panel 06/28/21 Range/Units 04:25 Sodium 136 L (137-145) mmol/L Potassium 4.7 (3.6-5.0) mmol/L Chloride 96.0 L (98-107) mmol/L Carbon Dioxide 23 (22-30) mmol/L BUN 79 H (7-17) mg/dL Creatinine 4.8 H (0.6-1.2) mg/dL Glucose 301 H (65-100) mg/dL Calcium 8.4 (8.4-10.2) mg/dL
--- NOTE | 2021-06-27 15:22 | Progress Note ---
Assessment and Plan Acute hypoxemic respiratory failure (ARDS) Coronavirus infection Pneumonia due to COVID-19 virus Acute kidney injury superimposed on CKD Hypertension Diabetes mellitus type 2, insulin dependent Hypothyroidism Morbid obesity - increased set rate to 30 - reduced peep to 14 - repeat ABG at 9pm - increased Reglan frequency - resume tube feeds - CT brain negative for acute process - received platelet transfusion - follow HIT assay - continue HD/UF per nephrology prescription for toxin and volume clearance - continue care as below otherwise; - continue Keppra 500 mg IV q12h - follow EEG - neurology evaluation ongoing - continue to wean vaspressors for target MAP > 65 mmHg - continue daily SAT and SBT assessment as tolerated - continue to wean supplemental oxygen for target O2 sat's > 90% acutely - VAP bundle addressed - continue lung protective strategies - continue bronchodilators with pulmonary hygiene per RT - wean per pulmonary driven protocols otherwise - azotemia per nephrology recommendations - avoid nephrotoxins, renally dose all medications - continue to avoid benzodiazepine's, reduce the possibility of delirium - anti-infective's per ID rec's - prn analgesia per CPOT score - Maintenance of sleep-wake cycle, avoid delirium - enteral nutritional support at goal rate as tolerated - G.I. & VTE prophylaxis - PT/OT/ROM exercises - mobility protocols for pressure ulcer prophylaxis - Monitor hemodynamics closely - continue other care per attending / other consultants - discharge planning ongoing concurrently COVID SPECIFIC INTERVENTIONS - Remdesivir as per ID/Pulmonary developed protocols (not a candidate) - continue systemic steroids for severe COVID-19 infection empirically (will taper to 60 mg IV q8h) - follow repeat COVID tests results - zinc and vitamin C supplementation - Monitor inflammatory markers per facility protocol - ferritin, Ddimer, CRP - therapeutic anticoagulation per system Protocol based on d-dimer and clinical considerations - Continue contact and airborne isolation .... Re-evaluate in am & prn CONDITION: CRITICAL PROGNOSIS: GUARDED CODE STATUS: FULL CODE The high probability of a clinically significant, sudden or life-threatening deterioration of the [respiratory, cardiovascular, renal & neurologic] system(s) required my full and direct attention, intervention and personal management. The aggregate critical care time was [33] minutes without overlap. Time includes spent on; [x] Data Review and interpretation [x] Patient assessment and monitoring of vital signs [x] Documentation [x] Medication orders and management Subjective Date of service: 06/27/21 Principal diagnosis: ARDS; Pneumonia; COVID-19 virus infection; TREMAINE; DM II; Morbid obesity Interval history: Patient is seen today for: Acute hypoxemic respiratory failure (ARDS); Pneumonia; COVID-19 virus infection; TREMAINE on CKD; DM II; Morbid obesity Seen and examined at bedside; 24hour events reviewed; nursing and respiratory care staff consulted; no adverse overnight events reported to me; resting in bed; AMS is persistent; started on Amiodarone re: A-fib with RVR; residuals high and tube feeds held Objective Vital Signs - 12hr 06/27/21 06/27/21 06/27/21 03:54 04:00 05:01 Temperature 97.3 F L Pulse Rate 121 H 131 H Pulse Rate [ From Monitor] Respiratory 25 H 19 Rate Blood Pressure 170/95 156/121 O2 Sat by Pulse 97 88 Oximetry 06/27/21 06/27/21 06/27/21 06:00 07:00 07:38 Temperature 98.2 F Pulse Rate 131 H 104 H Pulse Rate [ From Monitor] Respiratory 25 H 24 Rate Blood Pressure 142/83 123/78 O2 Sat by Pulse 87 87 Oximetry 06/27/21 06/27/21 06/27/21 08:00 09:00 09:36 Temperature Pulse Rate 104 H 105 H 103 H Pulse Rate [ 108 H From Monitor] Respiratory 24 25 H Rate Blood Pressure 113/73 134/74 107/67 O2 Sat by Pulse 91 91 91 Oximetry 06/27/21 06/27/21 06/27/21 10:00 11:00 11:45 Temperature Pulse Rate 101 H 100 H 94 H Pulse Rate [ From Monitor] Respiratory 25 H 25 H Rate Blood Pressure 101/70 111/59 98/57 O2 Sat by Pulse 92 97 98 Oximetry 06/27/21 06/27/21 06/27/21 12:00 12:01 12:02 Temperature 98.0 F Pulse Rate 99 H 95 H Pulse Rate [ 98 H From Monitor] Respiratory 25 H Rate Blood Pressure 118/73 O2 Sat by Pulse 95 95 Oximetry 06/27/21 13:00 Temperature Pulse Rate 91 H Pulse Rate [ From Monitor] Respiratory 25 H Rate Blood Pressure 93/63 O2 Sat by Pulse 96 Oximetry Constitutional: appears uncomfortable, other (Morbidly Obese female with mildly increased work of breathing on MVS) Eyes: non-icteric ENT: oropharynx moist, other (ETT 24 cm SHEREEN) Neck: supple, no lymphadenopathy, other (large neck circumference) Effort: mildly labored Ascultation: Bilateral: diminished breath sounds, rhonchi Percussion: Bilateral: not dull Cardiovascular: regular rate and rhythm Gastrointestinal: normoactive bowel sounds, soft, non-tender, non-distended (protuberant) Integumentary: rash (stasis dermatitis- type) Extremities: no cyanosis, no edema, pulses normal, no ischemia or petechiae Neurologic: non-focal exam (grossly), pupils equal and round, unable to assess Psychiatric: other (unable to assess re: AMS) CBC and BMP: 06/28/21 04:25 06/28/21 04:25 ABG, PT/INR, D-dimer: ABG ABG pH 7.230 pH Units (7.350-7.450) L 06/27/21 Unknown POC ABG pCO2 60.2 mmHg (32.0-48.0) H 06/26/21 05:14 ABG pCO2 64.0 mm Hg 06/27/21 Unknown POC ABG pO2 113.7 mmHg (83-108) H 06/26/21 05:14 ABG pO2 92.0 mm Hg (80.0-90.0) H 06/27/21 Unknown POC ABG HCO3 26.9 06/26/21 05:14 ABG O2 Saturation 96.8 % (95.0-99.0) 06/27/21 Unknown PT/INR, D-dimer PT 20.2 Sec. (12.2-14.9) H 06/25/21 09:05 INR 1.68 (0.87-1.13) H 06/25/21 09:05 D-Dimer 1363.54 ng/mlDDU (0-234) H 06/26/21 10:00 Abnormal lab findings: Abnormal Labs 06/07/21 06/07/21 06/07/21 19:11 19:11 19:11 WBC 11.5 H RBC Hgb Hct RDW Plt Count Lymph % (Auto) 6.5 L Lymph # (Auto) 0.8 L Seg Neutrophils % 89.9 H Seg Neuts % (Manual) Lymphocytes % (Manual) Nucleated RBC % Seg Neutrophils # 10.4 H Seg Neutrophils # Man Lymphocytes # (Manual) Monocytes # (Manual) PT INR APTT D-Dimer 5334.05 H ABG pH POC ABG pCO2 POC ABG pO2 ABG pO2 ABG HCO3 ABG O2 Saturation ABG Base Excess ABG Hemoglobin ABG Oxyhemoglobin ABG Methemoglobin ABG Sodium ABG Potassium ABG Chloride ABG Glucose Oxyhemoglobin Carboxyhemoglobin Sodium Potassium Chloride Carbon Dioxide BUN 67 H Creatinine 4.8 H Glucose 244 H POC Glucose Hemoglobin A1c Calcium Phosphorus Magnesium Ferritin Lactate Dehydrogenase 796 H Troponin T 0.043 H C-Reactive Protein 19.60 H Total Protein 8.4 H Albumin 3.1 L Uuduc-9-Nqivepkxz Lgtzi-4-Uoppmiwmx Beta Globulins PEP Interpretation Triglycerides 209 H HDL Cholesterol 35 L Arterial Blood Glucose Arterial Blood Ionized Calcium Urine WBC (Auto) Coronavirus (PCR) 06/07/21 06/07/21 06/08/21 19:11 19:11 03:04 WBC RBC Hgb Hct RDW Plt Count Lymph % (Auto) Lymph # (Auto) Seg Neutrophils % Seg Neuts % (Manual) Lymphocytes % (Manual) Nucleated RBC % Seg Neutrophils # Seg Neutrophils # Man Lymphocytes # (Manual) Monocytes # (Manual) PT INR APTT D-Dimer ABG pH POC ABG pCO2 POC ABG pO2 ABG pO2 ABG HCO3 ABG O2 Saturation ABG Base Excess ABG Hemoglobin ABG Oxyhemoglobin ABG Methemoglobin ABG Sodium ABG Potassium ABG Chloride ABG Glucose Oxyhemoglobin Carboxyhemoglobin Sodium Potassium Chloride Carbon Dioxide BUN Creatinine Glucose POC Glucose Hemoglobin A1c 9.5 H Calcium Phosphorus Magnesium Ferritin 1230.0 H Lactate Dehydrogenase Troponin T 0.031 H D C-Reactive Protein Total Protein Albumin Naufe-2-Fvymopftj Hgaeh-4-Mwvcskkzg Beta Globulins PEP Interpretation Triglycerides HDL Cholesterol Arterial Blood Glucose Arterial Blood Ionized Calcium Urine WBC (Auto) Coronavirus (PCR) 06/08/21 06/08/21 06/08/21 03:44 03:44 08:21 WBC 12.9 H RBC Hgb Hct RDW Plt Count Lymph % (Auto) Lymph # (Auto) Seg Neutrophils % Seg Neuts % (Manual) 95.0 H Lymphocytes % (Manual) 3.0 L Nucleated RBC % Seg Neutrophils # Seg Neutrophils # Man 12.3 H Lymphocytes # (Manual) 0.4 L Monocytes # (Manual) PT INR APTT D-Dimer ABG pH POC ABG pCO2 POC ABG pO2 ABG pO2 ABG HCO3 ABG O2 Saturation ABG Base Excess ABG Hemoglobin ABG Oxyhemoglobin ABG Methemoglobin ABG Sodium ABG Potassium ABG Chloride ABG Glucose Oxyhemoglobin Carboxyhemoglobin Sodium Potassium Chloride Carbon Dioxide 20 L D BUN 68 H Creatinine 4.7 H Glucose 218 H POC Glucose 273 H Hemoglobin A1c Calcium Phosphorus Magnesium Ferritin Lactate Dehydrogenase Troponin T C-Reactive Protein Total Protein Albumin 3.4 L Rbibv-5-Dhpraicxy Jxxnj-7-Jvuxgsqoc Beta Globulins PEP Interpretation Triglycerides HDL Cholesterol Arterial Blood Glucose Arterial Blood Ionized Calcium Urine WBC (Auto) Coronavirus (PCR) 06/08/21 06/08/21 06/08/21 08:30 11:00 17:29 WBC RBC Hgb Hct RDW Plt Count Lymph % (Auto) Lymph # (Auto) Seg Neutrophils % Seg Neuts % (Manual) Lymphocytes % (Manual) Nucleated RBC % Seg Neutrophils # Seg Neutrophils # Man Lymphocytes # (Manual) Monocytes # (Manual) PT INR APTT D-Dimer ABG pH POC ABG pCO2 POC ABG pO2 ABG pO2 ABG HCO3 ABG O2 Saturation ABG Base Excess ABG Hemoglobin ABG Oxyhemoglobin ABG Methemoglobin ABG Sodium ABG Potassium ABG Chloride ABG Glucose Oxyhemoglobin Carboxyhemoglobin Sodium Potassium Chloride Carbon Dioxide BUN Creatinine Glucose POC Glucose 239 H 220 H Hemoglobin A1c Calcium Phosphorus Magnesium Ferritin Lactate Dehydrogenase Troponin T C-Reactive Protein Total Protein Albumin [place]-6-Tyzohgkzi Vpyxh-6-Xkjbjobcg Beta Globulins PEP Interpretation Triglycerides HDL Cholesterol Arterial Blood Glucose Arterial Blood Ionized Calcium Urine WBC (Auto) Coronavirus (PCR) Positive A 06/08/21 06/09/21 06/09/21 21:09 08:07 08:42 WBC 14.7 H RBC 5.28 H Hgb 14.9 H Hct 45.0 H D RDW Plt Count Lymph % (Auto) 4.9 L Lymph # (Auto) 0.7 L Seg Neutrophils % 90.0 H Seg Neuts % (Manual) Lymphocytes % (Manual) Nucleated RBC % Seg Neutrophils # 13.2 H Seg Neutrophils # Man Lymphocytes # (Manual) Monocytes # (Manual) PT INR APTT D-Dimer ABG pH POC ABG pCO2 POC ABG pO2 ABG pO2 ABG HCO3 ABG O2 Saturation ABG Base Excess ABG Hemoglobin ABG Oxyhemoglobin ABG Methemoglobin ABG Sodium ABG Potassium ABG Chloride ABG Glucose Oxyhemoglobin Carboxyhemoglobin Sodium Potassium Chloride Carbon Dioxide BUN Creatinine Glucose POC Glucose 242 H 230 H Hemoglobin A1c Calcium Phosphorus Magnesium Ferritin Lactate Dehydrogenase Troponin T C-Reactive Protein Total Protein Albumin Yjcuj-5-Gzyiwrtso Kmeid-9-Xzfibresv Beta Globulins PEP Interpretation Triglycerides HDL Cholesterol Arterial Blood Glucose Arterial Blood Ionized Calcium Urine WBC (Auto) Coronavirus (PCR) 06/09/21 06/09/21 06/09/21 08:42 12:05 12:19 WBC RBC Hgb Hct RDW Plt Count Lymph % (Auto) Lymph # (Auto) Seg Neutrophils % Seg Neuts % (Manual) Lymphocytes % (Manual) Nucleated RBC % Seg Neutrophils # Seg Neutrophils # Man Lymphocytes # (Manual) Monocytes # (Manual) PT INR APTT D-Dimer ABG pH POC ABG pCO2 POC ABG pO2 71.4 L ABG pO2 ABG HCO3 ABG O2 Saturation ABG Base Excess ABG Hemoglobin ABG Oxyhemoglobin 92.9 L ABG Methemoglobin ABG Sodium ABG Potassium ABG Chloride 109.0 H ABG Glucose 287 H Oxyhemoglobin Carboxyhemoglobin 0.4 L Sodium Potassium Chloride Carbon Dioxide 17 L BUN 74 H Creatinine 3.7 H Glucose 259 H POC Glucose 274 H Hemoglobin A1c Calcium 8.3 L Phosphorus Magnesium Ferritin Lactate Dehydrogenase Troponin T C-Reactive Protein Total Protein Albumin Zspco-3-Luxdjztnm Xrjgd-7-Jxvryjihk Beta Globulins PEP Interpretation Triglycerides HDL Cholesterol Arterial Blood Glucose 287 H Arterial Blood Ionized Calcium Urine WBC (Auto) Coronavirus (PCR) 06/09/21 06/09/21 06/10/21 16:59 21:06 08:25 WBC RBC Hgb Hct RDW Plt Count Lymph % (Auto) Lymph # (Auto) Seg Neutrophils % Seg Neuts % (Manual) Lymphocytes % (Manual) Nucleated RBC % Seg Neutrophils # Seg Neutrophils # Man Lymphocytes # (Manual) Monocytes # (Manual) PT INR APTT D-Dimer ABG pH POC ABG pCO2 POC ABG pO2 ABG pO2 ABG HCO3 ABG O2 Saturation ABG Base Excess ABG Hemoglobin ABG Oxyhemoglobin ABG Methemoglobin ABG Sodium ABG Potassium ABG Chloride ABG Glucose Oxyhemoglobin Carboxyhemoglobin Sodium Potassium Chloride Carbon Dioxide BUN Creatinine Glucose POC Glucose 268 H 263 H 280 H Hemoglobin A1c Calcium Phosphorus Magnesium Ferritin Lactate Dehydrogenase Troponin T C-Reactive Protein Total Protein Albumin Zggck-6-Hhyqmibxh Qzwmb-0-Felogbvai Beta Globulins PEP Interpretation Triglycerides HDL Cholesterol Arterial Blood Glucose Arterial Blood Ionized Calcium Urine WBC (Auto) Coronavirus (PCR) 06/10/21 06/10/21 06/10/21 12:07 15:38 21:04 WBC RBC Hgb Hct RDW Plt Count Lymph % (Auto) Lymph # (Auto) Seg Neutrophils % Seg Neuts % (Manual) Lymphocytes % (Manual) Nucleated RBC % Seg Neutrophils # Seg Neutrophils # Man Lymphocytes # (Manual) Monocytes # (Manual) PT INR APTT D-Dimer ABG pH POC ABG pCO2 POC ABG pO2 ABG pO2 ABG HCO3 ABG O2 Saturation ABG Base Excess ABG Hemoglobin ABG Oxyhemoglobin ABG Methemoglobin ABG Sodium ABG Potassium ABG Chloride ABG Glucose Oxyhemoglobin Carboxyhemoglobin Sodium Potassium Chloride Carbon Dioxide BUN Creatinine Glucose POC Glucose 247 H 269 H 195 H Hemoglobin A1c Calcium Phosphorus Magnesium Ferritin Lactate Dehydrogenase Troponin T C-Reactive Protein Total Protein Albumin Mridk-7-Dsdzgunrl Yoxsw-6-Tkulyaioa Beta Globulins PEP Interpretation Triglycerides HDL Cholesterol Arterial Blood Glucose Arterial Blood Ionized Calcium Urine WBC (Auto) Coronavirus (PCR) 06/10/21 06/10/21 06/10/21 23:14 23:14 23:14 WBC RBC Hgb Hct RDW 15.3 H Plt Count Lymph % (Auto) Lymph # (Auto) Seg Neutrophils % Seg Neuts % (Manual) 93.0 H Lymphocytes % (Manual) 2.0 L Nucleated RBC % 3.0 H Seg Neutrophils # Seg Neutrophils # Man 10.2 H Lymphocytes # (Manual) 0.2 L Monocytes # (Manual) PT INR APTT D-Dimer ABG pH POC ABG pCO2 POC ABG pO2 ABG pO2 ABG HCO3 ABG O2 Saturation ABG Base Excess ABG Hemoglobin ABG Oxyhemoglobin ABG Methemoglobin ABG Sodium ABG Potassium ABG Chloride ABG Glucose Oxyhemoglobin Carboxyhemoglobin Sodium 148 H D Potassium Chloride 111.7 H Carbon Dioxide 20 L BUN 70 H Creatinine 3.2 H Glucose 186 H POC Glucose Hemoglobin A1c Calcium Phosphorus Magnesium Ferritin Lactate Dehydrogenase Troponin T C-Reactive Protein Total Protein Albumin 2.6 L Gkogl-6-[place] 0.5 H Czosp-2-Hiczcpiqj 1.7 H Beta Globulins 0.6 H PEP Interpretation see below H Triglycerides HDL Cholesterol Arterial Blood Glucose Arterial Blood Ionized Calcium Urine WBC (Auto) Coronavirus (PCR) 06/10/21 06/10/21 06/10/21 23:14 23:14 23:14 WBC RBC Hgb Hct RDW Plt Count Lymph % (Auto) Lymph # (Auto) Seg Neutrophils % Seg Neuts % (Manual) Lymphocytes % (Manual) Nucleated RBC % Seg Neutrophils # Seg Neutrophils # Man Lymphocytes # (Manual) Monocytes # (Manual) PT INR APTT D-Dimer > 74496 H ABG pH POC ABG pCO2 POC ABG pO2 ABG pO2 ABG HCO3 ABG O2 Saturation ABG Base Excess ABG Hemoglobin ABG Oxyhemoglobin ABG Methemoglobin ABG Sodium ABG Potassium ABG Chloride ABG Glucose Oxyhemoglobin Carboxyhemoglobin Sodium Potassium Chloride Carbon Dioxide BUN Creatinine Glucose POC Glucose Hemoglobin A1c Calcium Phosphorus Magnesium 2.50 H Ferritin 1319.0 H Lactate Dehydrogenase 606 H Troponin T C-Reactive Protein Total Protein Albumin Bstjx-8-Vpvcqbhjk Iffvk-5-Fgruklway Beta Globulins PEP Interpretation Triglycerides HDL Cholesterol Arterial Blood Glucose Arterial Blood Ionized Calcium Urine WBC (Auto) Coronavirus (PCR) 06/11/21 06/11/21 06/11/21 07:34 10:57 10:57 WBC RBC Hgb Hct RDW Plt Count Lymph % (Auto) Lymph # (Auto) Seg Neutrophils % Seg Neuts % (Manual) Lymphocytes % (Manual) Nucleated RBC % Seg Neutrophils # Seg Neutrophils # Man Lymphocytes # (Manual) Monocytes # (Manual) PT INR APTT D-Dimer > 88023 H ABG pH POC ABG pCO2 POC ABG pO2 ABG pO2 ABG HCO3 ABG O2 Saturation ABG Base Excess ABG Hemoglobin ABG Oxyhemoglobin ABG Methemoglobin ABG Sodium ABG Potassium ABG Chloride ABG Glucose Oxyhemoglobin Carboxyhemoglobin Sodium Potassium Chloride Carbon Dioxide BUN Creatinine Glucose POC Glucose 169 H Hemoglobin A1c Calcium Phosphorus Magnesium Ferritin 1300.0 H Lactate Dehydrogenase Troponin T C-Reactive Protein Total Protein Albumin Iiijx-4-Oqbsvzjlf Imswt-8-Njajczkug Beta Globulins PEP Interpretation Triglycerides HDL Cholesterol Arterial Blood Glucose Arterial Blood Ionized Calcium Urine WBC (Auto) Coronavirus (PCR) 06/11/21 06/11/21 06/11/21 10:58 10:58 11:49 WBC 11.3 H RBC Hgb Hct RDW 15.3 H Plt Count Lymph % (Auto) Lymph # (Auto) Seg Neutrophils % Seg Neuts % (Manual) 88.0 H Lymphocytes % (Manual) 6.0 L Nucleated RBC % Seg Neutrophils # Seg Neutrophils # Man 9.9 H Lymphocytes # (Manual) 0.7 L Monocytes # (Manual) PT INR APTT D-Dimer ABG pH POC ABG pCO2 POC ABG pO2 ABG pO2 ABG HCO3 ABG O2 Saturation ABG Base Excess ABG Hemoglobin ABG Oxyhemoglobin ABG Methemoglobin ABG Sodium ABG Potassium ABG Chloride ABG Glucose Oxyhemoglobin Carboxyhemoglobin Sodium 150 H Potassium 3.4 L Chloride 114.8 H Carbon Dioxide 21 L BUN 65 H Creatinine 2.9 H Glucose 180 H POC Glucose 191 H Hemoglobin A1c Calcium Phosphorus Magnesium 2.50 H Ferritin Lactate Dehydrogenase Troponin T C-Reactive Protein 1.90 H Total Protein Albumin Cxowh-1-Bjemyffwu Pjlpk-5-Exggjpywj Beta Globulins PEP Interpretation Triglycerides HDL Cholesterol Arterial Blood Glucose Arterial Blood Ionized Calcium Urine WBC (Auto) Coronavirus (PCR) 06/11/21 06/11/21 06/12/21 15:49 21:16 04:22 WBC RBC Hgb Hct RDW Plt Count Lymph % (Auto) Lymph # (Auto) Seg Neutrophils % Seg Neuts % (Manual) Lymphocytes % (Manual) Nucleated RBC % Seg Neutrophils # Seg Neutrophils # Man Lymphocytes # (Manual) Monocytes # (Manual) PT INR APTT D-Dimer ABG pH 7.318 L POC ABG pCO2 POC ABG pO2 ABG pO2 51.5 L ABG HCO3 ABG O2 Saturation 86.9 L ABG Base Excess -5.6 L ABG Hemoglobin ABG Oxyhemoglobin ABG Methemoglobin ABG Sodium ABG Potassium ABG Chloride ABG Glucose Oxyhemoglobin 85.5 L Carboxyhemoglobin Sodium Potassium Chloride Carbon Dioxide BUN Creatinine Glucose POC Glucose 185 H 200 H Hemoglobin A1c Calcium Phosphorus Magnesium Ferritin Lactate Dehydrogenase Troponin T C-Reactive Protein Total Protein Albumin Tlpmu-3-Ohdepaxes Pdcsr-4-Yxkvxnsqa Beta Globulins PEP Interpretation Triglycerides HDL Cholesterol Arterial Blood Glucose Arterial Blood Ionized Calcium Urine WBC (Auto) Coronavirus (PCR) 06/12/21 06/12/21 06/12/21 07:41 08:31 08:31 WBC 12.4 H RBC Hgb Hct RDW 15.3 H Plt Count Lymph % (Auto) 8.5 L Lymph # (Auto) 1.1 L Seg Neutrophils % 88.1 H Seg Neuts % (Manual) Lymphocytes % (Manual) Nucleated RBC % Seg Neutrophils # 10.9 H Seg Neutrophils # Man Lymphocytes # (Manual) Monocytes # (Manual) PT INR APTT D-Dimer ABG pH POC ABG pCO2 POC ABG pO2 ABG pO2 ABG HCO3 ABG O2 Saturation ABG Base Excess ABG Hemoglobin ABG Oxyhemoglobin ABG Methemoglobin ABG Sodium ABG Potassium ABG Chloride ABG Glucose Oxyhemoglobin Carboxyhemoglobin Sodium 151 H Potassium Chloride 117.3 H Carbon Dioxide 21 L BUN 61 H Creatinine 2.5 H Glucose 165 H POC Glucose 165 H Hemoglobin A1c Calcium 8.3 L Phosphorus Magnesium Ferritin Lactate Dehydrogenase Troponin T C-Reactive Protein Total Protein Albumin Rbibh-0-Zbncikdow Xewlf-1-Rnkoiczzo Beta Globulins PEP Interpretation Triglycerides HDL Cholesterol Arterial Blood Glucose Arterial Blood Ionized Calcium Urine WBC (Auto) Coronavirus (PCR) 06/12/21 06/12/21 06/12/21 08:31 10:32 15:47 WBC RBC Hgb Hct RDW Plt Count Lymph % (Auto) Lymph # (Auto) Seg Neutrophils % Seg Neuts % (Manual) Lymphocytes % (Manual) Nucleated RBC % Seg Neutrophils # Seg Neutrophils # Man Lymphocytes # (Manual) Monocytes # (Manual) PT INR APTT D-Dimer ABG pH POC ABG pCO2 POC ABG pO2 ABG pO2 ABG HCO3 ABG O2 Saturation ABG Base Excess ABG Hemoglobin ABG Oxyhemoglobin ABG Methemoglobin ABG Sodium ABG Potassium ABG Chloride ABG Glucose Oxyhemoglobin Carboxyhemoglobin Sodium Potassium Chloride Carbon Dioxide BUN Creatinine Glucose POC Glucose 156 H 176 H Hemoglobin A1c Calcium Phosphorus Magnesium 2.50 H Ferritin Lactate Dehydrogenase Troponin T C-Reactive Protein Total Protein Albumin Wgsoe-4-Tautvdmkf Brsft-4-Gxnrrmwgx Beta Globulins PEP Interpretation Triglycerides HDL Cholesterol Arterial Blood Glucose Arterial Blood Ionized Calcium Urine WBC (Auto) Coronavirus (PCR) 06/12/21 06/13/21 06/13/21 21:50 07:42 07:42 WBC 14.1 H RBC Hgb Hct RDW 15.3 H Plt Count Lymph % (Auto) Lymph # (Auto) Seg Neutrophils % Seg Neuts % (Manual) 87.0 H Lymphocytes % (Manual) 7.0 L Nucleated RBC % 3.0 H Seg Neutrophils # Seg Neutrophils # Man 12.3 H Lymphocytes # (Manual) 1.0 L Monocytes # (Manual) PT INR APTT D-Dimer ABG pH POC ABG pCO2 POC ABG pO2 ABG pO2 ABG HCO3 ABG O2 Saturation ABG Base Excess ABG Hemoglobin ABG Oxyhemoglobin ABG Methemoglobin ABG Sodium ABG Potassium ABG Chloride ABG Glucose Oxyhemoglobin Carboxyhemoglobin Sodium 151 H Potassium 3.5 L Chloride 116.0 H Carbon Dioxide BUN 61 H Creatinine 2.3 H Glucose 135 H POC Glucose 165 H Hemoglobin A1c Calcium Phosphorus Magnesium 2.50 H Ferritin Lactate Dehydrogenase Troponin T C-Reactive Protein Total Protein Albumin Ajesh-0-Nmererpmh Jnqgn-7-Wtekfiapy Beta Globulins PEP Interpretation Triglycerides HDL Cholesterol Arterial Blood Glucose Arterial Blood Ionized Calcium Urine WBC (Auto) Coronavirus (PCR) 06/13/21 06/13/21 06/13/21 08:10 11:10 18:15 WBC RBC Hgb Hct RDW Plt Count Lymph % (Auto) Lymph # (Auto) Seg Neutrophils % Seg Neuts % (Manual) Lymphocytes % (Manual) Nucleated RBC % Seg Neutrophils # Seg Neutrophils # Man Lymphocytes # (Manual) Monocytes # (Manual) PT INR APTT D-Dimer ABG pH POC ABG pCO2 POC ABG pO2 ABG pO2 ABG HCO3 ABG O2 Saturation ABG Base Excess ABG Hemoglobin ABG Oxyhemoglobin ABG Methemoglobin ABG Sodium ABG Potassium ABG Chloride ABG Glucose Oxyhemoglobin Carboxyhemoglobin Sodium Potassium Chloride Carbon Dioxide BUN Creatinine Glucose POC Glucose 118 H 139 H 179 H Hemoglobin A1c Calcium Phosphorus Magnesium Ferritin Lactate Dehydrogenase Troponin T C-Reactive Protein Total Protein Albumin Twtnu-8-Zigvppcjp Lozeg-6-Jqetougdc Beta Globulins PEP Interpretation Triglycerides HDL Cholesterol Arterial Blood Glucose Arterial Blood Ionized Calcium Urine WBC (Auto) Coronavirus (PCR) 06/13/21 06/13/21 06/14/21 21:54 23:27 04:42 WBC 12.8 H RBC Hgb Hct RDW 15.3 H Plt Count Lymph % (Auto) Lymph # (Auto) Seg Neutrophils % Seg Neuts % (Manual) 92.0 H Lymphocytes % (Manual) 1.0 L Nucleated RBC % 2.0 H Seg Neutrophils # Seg Neutrophils # Man 11.8 H Lymphocytes # (Manual) 0.1 L Monocytes # (Manual) PT INR APTT D-Dimer ABG pH POC ABG pCO2 POC ABG pO2 ABG pO2 ABG HCO3 ABG O2 Saturation ABG Base Excess ABG Hemoglobin ABG Oxyhemoglobin ABG Methemoglobin ABG Sodium ABG Potassium ABG Chloride ABG Glucose Oxyhemoglobin Carboxyhemoglobin Sodium 152 H Potassium Chloride 116.3 H Carbon Dioxide 21 L BUN 67 H Creatinine 2.5 H Glucose 212 H POC Glucose 193 H Hemoglobin A1c Calcium Phosphorus Magnesium Ferritin Lactate Dehydrogenase Troponin T C-Reactive Protein Total Protein Albumin Btykc-7-Ssydbihkl Omszd-2-Egmmxevmj Beta Globulins PEP Interpretation Triglycerides HDL Cholesterol Arterial Blood Glucose Arterial Blood Ionized Calcium Urine WBC (Auto) Coronavirus (PCR) 06/14/21 06/14/21 06/14/21 04:42 04:42 07:33 WBC RBC Hgb Hct RDW Plt Count Lymph % (Auto) Lymph # (Auto) Seg Neutrophils % Seg Neuts % (Manual) Lymphocytes % (Manual) Nucleated RBC % Seg Neutrophils # Seg Neutrophils # Man Lymphocytes # (Manual) Monocytes # (Manual) PT INR APTT D-Dimer ABG pH POC ABG pCO2 POC ABG pO2 ABG pO2 ABG HCO3 ABG O2 Saturation ABG Base Excess ABG Hemoglobin ABG Oxyhemoglobin ABG Methemoglobin ABG Sodium ABG Potassium ABG Chloride ABG Glucose Oxyhemoglobin Carboxyhemoglobin Sodium 152 H Potassium Chloride 115.3 H Carbon Dioxide BUN 68 H Creatinine 2.5 H Glucose 188 H POC Glucose 173 H Hemoglobin A1c Calcium Phosphorus Magnesium 2.40 H Ferritin Lactate Dehydrogenase Troponin T C-Reactive Protein Total Protein Albumin Aeiur-7-Xatggxkms Pdvjr-3-Akxrxkftx Beta Globulins PEP Interpretation Triglycerides HDL Cholesterol Arterial Blood Glucose Arterial Blood Ionized Calcium Urine WBC (Auto) Coronavirus (PCR) 06/14/21 06/14/21 06/14/21 10:57 15:53 23:40 WBC RBC Hgb Hct RDW Plt Count Lymph % (Auto) Lymph # (Auto) Seg Neutrophils % Seg Neuts % (Manual) Lymphocytes % (Manual) Nucleated RBC % Seg Neutrophils # Seg Neutrophils # Man Lymphocytes # (Manual) Monocytes # (Manual) PT INR APTT D-Dimer ABG pH POC ABG pCO2 POC ABG pO2 ABG pO2 ABG HCO3 ABG O2 Saturation ABG Base Excess ABG Hemoglobin ABG Oxyhemoglobin ABG Methemoglobin ABG Sodium ABG Potassium ABG Chloride ABG Glucose Oxyhemoglobin Carboxyhemoglobin Sodium Potassium Chloride Carbon Dioxide BUN Creatinine Glucose POC Glucose 195 H 226 H 235 H Hemoglobin A1c Calcium Phosphorus Magnesium Ferritin Lactate Dehydrogenase Troponin T C-Reactive Protein Total Protein Albumin Umnsq-7-Esziutwpy Divgv-2-Fasflhhls Beta Globulins PEP Interpretation Triglycerides HDL Cholesterol Arterial Blood Glucose Arterial Blood Ionized Calcium Urine WBC (Auto) Coronavirus (PCR) 06/15/21 06/15/21 06/15/21 07:38 07:38 07:38 WBC 14.3 H RBC Hgb Hct RDW Plt Count Lymph % (Auto) Lymph # (Auto) Seg Neutrophils % Seg Neuts % (Manual) 95.0 H Lymphocytes % (Manual) 1.0 L Nucleated RBC % Seg Neutrophils # Seg Neutrophils # Man 13.6 H Lymphocytes # (Manual) 0.1 L Monocytes # (Manual) PT INR APTT D-Dimer > 78525 H ABG pH POC ABG pCO2 POC ABG pO2 ABG pO2 ABG HCO3 ABG O2 Saturation ABG Base Excess ABG Hemoglobin ABG Oxyhemoglobin ABG Methemoglobin ABG Sodium ABG Potassium ABG Chloride ABG Glucose Oxyhemoglobin Carboxyhemoglobin Sodium 153 H Potassium 3.5 L Chloride 115.9 H Carbon Dioxide BUN 55 H Creatinine 2.1 H Glucose 213 H POC Glucose Hemoglobin A1c Calcium Phosphorus Magnesium Ferritin Lactate Dehydrogenase Troponin T C-Reactive Protein Total Protein Albumin Ziyrj-9-Khfbyuccf Yrwgu-2-Webvtjvvl Beta Globulins PEP Interpretation Triglycerides HDL Cholesterol Arterial Blood Glucose Arterial Blood Ionized Calcium Urine WBC (Auto) Coronavirus (PCR) 06/15/21 06/15/21 06/15/21 07:38 09:21 11:46 WBC RBC Hgb Hct RDW Plt Count Lymph % (Auto) Lymph # (Auto) Seg Neutrophils % Seg Neuts % (Manual) Lymphocytes % (Manual) Nucleated RBC % Seg Neutrophils # Seg Neutrophils # Man Lymphocytes # (Manual) Monocytes # (Manual) PT INR APTT D-Dimer ABG pH POC ABG pCO2 POC ABG pO2 ABG pO2 ABG HCO3 ABG O2 Saturation ABG Base Excess ABG Hemoglobin ABG Oxyhemoglobin ABG Methemoglobin ABG Sodium ABG Potassium ABG Chloride ABG Glucose Oxyhemoglobin Carboxyhemoglobin Sodium Potassium Chloride Carbon Dioxide BUN Creatinine Glucose POC Glucose 202 H 233 H Hemoglobin A1c Calcium Phosphorus Magnesium Ferritin 1246.0 H Lactate Dehydrogenase Troponin T C-Reactive Protein Total Protein Albumin Sdqsw-5-Erkctnbza Pkzrm-9-Dckqwaatq Beta Globulins PEP Interpretation Triglycerides HDL Cholesterol Arterial Blood Glucose Arterial Blood Ionized Calcium Urine WBC (Auto) Coronavirus (PCR) 06/15/21 06/16/21 06/16/21 17:32 05:44 07:48 WBC RBC Hgb Hct RDW Plt Count Lymph % (Auto) Lymph # (Auto) Seg Neutrophils % Seg Neuts % (Manual) Lymphocytes % (Manual) Nucleated RBC % Seg Neutrophils # Seg Neutrophils # Man Lymphocytes # (Manual) Monocytes # (Manual) PT INR APTT D-Dimer ABG pH POC ABG pCO2 POC ABG pO2 ABG pO2 ABG HCO3 ABG O2 Saturation ABG Base Excess ABG Hemoglobin ABG Oxyhemoglobin ABG Methemoglobin ABG Sodium ABG Potassium ABG Chloride ABG Glucose Oxyhemoglobin Carboxyhemoglobin Sodium 154 H Potassium Chloride 117.2 H Carbon Dioxide BUN 54 H Creatinine 2.0 H Glucose 120 H POC Glucose 179 H 109 H Hemoglobin A1c Calcium Phosphorus Magnesium Ferritin Lactate Dehydrogenase Troponin T C-Reactive Protein Total Protein Albumin Sdupg-2-Bbaikkkzb Qpcbw-8-Esnhnwgby Beta Globulins PEP Interpretation Triglycerides HDL Cholesterol Arterial Blood Glucose Arterial Blood Ionized Calcium Urine WBC (Auto) Coronavirus (PCR) 06/16/21 06/16/21 06/16/21 11:13 15:22 21:15 WBC RBC Hgb Hct RDW Plt Count Lymph % (Auto) Lymph # (Auto) Seg Neutrophils % Seg Neuts % (Manual) Lymphocytes % (Manual) Nucleated RBC % Seg Neutrophils # Seg Neutrophils # Man Lymphocytes # (Manual) Monocytes # (Manual) PT INR APTT D-Dimer ABG pH POC ABG pCO2 POC ABG pO2 ABG pO2 ABG HCO3 ABG O2 Saturation ABG Base Excess ABG Hemoglobin ABG Oxyhemoglobin ABG Methemoglobin ABG Sodium ABG Potassium ABG Chloride ABG Glucose Oxyhemoglobin Carboxyhemoglobin Sodium Potassium Chloride Carbon Dioxide BUN Creatinine Glucose POC Glucose 222 H 218 H 250 H Hemoglobin A1c Calcium Phosphorus Magnesium Ferritin Lactate Dehydrogenase Troponin T C-Reactive Protein Total Protein Albumin Tyjpz-9-Xhmjukgew Xzbzp-7-Ctuzwwbvy Beta Globulins PEP Interpretation Triglycerides HDL Cholesterol Arterial Blood Glucose Arterial Blood Ionized Calcium Urine WBC (Auto) Coronavirus (PCR) 06/17/21 06/17/21 06/17/21 07:55 09:35 09:35 WBC RBC Hgb Hct RDW 15.7 H Plt Count 99 L Lymph % (Auto) Lymph # (Auto) Seg Neutrophils % Seg Neuts % (Manual) Lymphocytes % (Manual) Nucleated RBC % Seg Neutrophils # Seg Neutrophils # Man Lymphocytes # (Manual) Monocytes # (Manual) PT INR APTT D-Dimer ABG pH POC ABG pCO2 POC ABG pO2 ABG pO2 ABG HCO3 ABG O2 Saturation ABG Base Excess ABG Hemoglobin ABG Oxyhemoglobin ABG Methemoglobin ABG Sodium ABG Potassium ABG Chloride ABG Glucose Oxyhemoglobin Carboxyhemoglobin Sodium 148 H Potassium Chloride 113.3 H Carbon Dioxide BUN 45 H Creatinine 1.8 H Glucose 202 H POC Glucose 158 H Hemoglobin A1c Calcium Phosphorus Magnesium Ferritin Lactate Dehydrogenase Troponin T C-Reactive Protein Total Protein 6.0 L Albumin 2.8 L Riowo-6-Bauraskcw Hezye-5-Vihyvhuww Beta Globulins PEP Interpretation Triglycerides HDL Cholesterol Arterial Blood Glucose Arterial Blood Ionized Calcium Urine WBC (Auto) Coronavirus (PCR) 06/17/21 06/17/21 06/18/21 12:32 16:46 06:00 WBC RBC Hgb Hct RDW Plt Count Lymph % (Auto) Lymph # (Auto) Seg Neutrophils % Seg Neuts % (Manual) Lymphocytes % (Manual) Nucleated RBC % Seg Neutrophils # Seg Neutrophils # Man Lymphocytes # (Manual) Monocytes # (Manual) PT INR APTT D-Dimer 9804.08 H ABG pH POC ABG pCO2 POC ABG pO2 ABG pO2 ABG HCO3 ABG O2 Saturation ABG Base Excess ABG Hemoglobin ABG Oxyhemoglobin ABG Methemoglobin ABG Sodium ABG Potassium ABG Chloride ABG Glucose Oxyhemoglobin Carboxyhemoglobin Sodium Potassium Chloride Carbon Dioxide BUN Creatinine Glucose POC Glucose 227 H 203 H Hemoglobin A1c Calcium Phosphorus Magnesium Ferritin Lactate Dehydrogenase Troponin T C-Reactive Protein Total Protein Albumin Cldkt-2-Hpncxslvu Zshwn-2-Mhtiikzvq Beta Globulins PEP Interpretation Triglycerides HDL Cholesterol Arterial Blood Glucose Arterial Blood Ionized Calcium Urine WBC (Auto) Coronavirus (PCR) 06/18/21 06/18/21 06/18/21 06:00 08:00 10:10 WBC RBC Hgb Hct RDW Plt Count Lymph % (Auto) Lymph # (Auto) Seg Neutrophils % Seg Neuts % (Manual) Lymphocytes % (Manual) Nucleated RBC % Seg Neutrophils # Seg Neutrophils # Man Lymphocytes # (Manual) Monocytes # (Manual) PT INR APTT D-Dimer ABG pH POC ABG pCO2 POC ABG pO2 ABG pO2 ABG HCO3 ABG O2 Saturation ABG Base Excess ABG Hemoglobin ABG Oxyhemoglobin ABG Methemoglobin ABG Sodium ABG Potassium ABG Chloride ABG Glucose Oxyhemoglobin Carboxyhemoglobin Sodium Potassium Chloride 110.1 H Carbon Dioxide BUN 39 H Creatinine 1.8 H Glucose 135 H POC Glucose 107 H Hemoglobin A1c Calcium Phosphorus Magnesium Ferritin 904.2 H Lactate Dehydrogenase Troponin T C-Reactive Protein Total Protein Albumin Yquut-6-Ypmcgvssf Nfoop-7-Tlcmspmtk Beta Globulins PEP Interpretation Triglycerides HDL Cholesterol Arterial Blood Glucose Arterial Blood Ionized Calcium Urine WBC (Auto) Coronavirus (PCR) 06/18/21 06/18/21 06/18/21 12:06 16:47 21:14 WBC RBC Hgb Hct RDW Plt Count Lymph % (Auto) Lymph # (Auto) Seg Neutrophils % Seg Neuts % (Manual) Lymphocytes % (Manual) Nucleated RBC % Seg Neutrophils # Seg Neutrophils # Man Lymphocytes # (Manual) Monocytes # (Manual) PT INR APTT D-Dimer ABG pH POC ABG pCO2 POC ABG pO2 ABG pO2 ABG HCO3 ABG O2 Saturation ABG Base Excess ABG Hemoglobin ABG Oxyhemoglobin ABG Methemoglobin ABG Sodium ABG Potassium ABG Chloride ABG Glucose Oxyhemoglobin Carboxyhemoglobin Sodium Potassium Chloride Carbon Dioxide BUN Creatinine Glucose POC Glucose 160 H 236 H 186 H Hemoglobin A1c Calcium Phosphorus Magnesium Ferritin Lactate Dehydrogenase Troponin T C-Reactive Protein Total Protein Albumin Djyup-3-Yqkgvrqjj Zdjax-1-Toibqrvjb Beta Globulins PEP Interpretation Triglycerides HDL Cholesterol Arterial Blood Glucose Arterial Blood Ionized Calcium Urine WBC (Auto) Coronavirus (PCR) 06/19/21 06/19/21 06/20/21 15:46 15:46 08:04 WBC RBC Hgb Hct RDW 15.5 H Plt Count 73 L Lymph % (Auto) Lymph # (Auto) Seg Neutrophils % Seg Neuts % (Manual) Lymphocytes % (Manual) Nucleated RBC % Seg Neutrophils # Seg Neutrophils # Man Lymphocytes # (Manual) Monocytes # (Manual) PT INR APTT D-Dimer ABG pH POC ABG pCO2 POC ABG pO2 ABG pO2 ABG HCO3 ABG O2 Saturation ABG Base Excess ABG Hemoglobin ABG Oxyhemoglobin ABG Methemoglobin ABG Sodium ABG Potassium ABG Chloride ABG Glucose Oxyhemoglobin Carboxyhemoglobin Sodium 146 H Potassium Chloride 108.9 H Carbon Dioxide BUN 38 H Creatinine 1.7 H Glucose POC Glucose 52 L Hemoglobin A1c Calcium Phosphorus Magnesium Ferritin Lactate Dehydrogenase Troponin T C-Reactive Protein Total Protein Albumin Dnwul-6-Nfzdzwkpb Erlyz-5-Abkiridmj Beta Globulins PEP Interpretation Triglycerides HDL Cholesterol Arterial Blood Glucose Arterial Blood Ionized Calcium Urine WBC (Auto) Coronavirus (PCR) 06/20/21 06/20/21 06/20/21 11:58 15:16 17:54 WBC RBC Hgb Hct RDW Plt Count Lymph % (Auto) Lymph # (Auto) Seg Neutrophils % Seg Neuts % (Manual) Lymphocytes % (Manual) Nucleated RBC % Seg Neutrophils # Seg Neutrophils # Man Lymphocytes # (Manual) Monocytes # (Manual) PT INR APTT D-Dimer ABG pH POC ABG pCO2 POC ABG pO2 ABG pO2 ABG HCO3 ABG O2 Saturation ABG Base Excess ABG Hemoglobin ABG Oxyhemoglobin ABG Methemoglobin ABG Sodium ABG Potassium ABG Chloride ABG Glucose Oxyhemoglobin Carboxyhemoglobin Sodium 146 H Potassium Chloride 108.2 H Carbon Dioxide BUN 37 H Creatinine 1.7 H Glucose 131 H POC Glucose 58 L 219 H Hemoglobin A1c Calcium Phosphorus Magnesium Ferritin Lactate Dehydrogenase Troponin T C-Reactive Protein Total Protein Albumin Pctqi-7-Nqcmzagmw Skori-2-Rpqlelptv Beta Globulins PEP Interpretation Triglycerides HDL Cholesterol Arterial Blood Glucose Arterial Blood Ionized Calcium Urine WBC (Auto) Coronavirus (PCR) 06/20/21 06/21/21 06/21/21 21:58 06:00 07:41 WBC RBC Hgb Hct RDW Plt Count Lymph % (Auto) Lymph # (Auto) Seg Neutrophils % Seg Neuts % (Manual) Lymphocytes % (Manual) Nucleated RBC % Seg Neutrophils # Seg Neutrophils # Man Lymphocytes # (Manual) Monocytes # (Manual) PT INR APTT D-Dimer ABG pH POC ABG pCO2 POC ABG pO2 ABG pO2 ABG HCO3 ABG O2 Saturation ABG Base Excess ABG Hemoglobin ABG Oxyhemoglobin ABG Methemoglobin ABG Sodium ABG Potassium ABG Chloride ABG Glucose Oxyhemoglobin Carboxyhemoglobin Sodium Potassium Chloride Carbon Dioxide BUN 42 H Creatinine 2.0 H Glucose 225 H POC Glucose 180 H 204 H Hemoglobin A1c Calcium Phosphorus Magnesium Ferritin Lactate Dehydrogenase Troponin T C-Reactive Protein Total Protein Albumin Zldqo-4-Wmmbpxqtq Cojji-4-Bngtzyjjf Beta Globulins PEP Interpretation Triglycerides HDL Cholesterol Arterial Blood Glucose Arterial Blood Ionized Calcium Urine WBC (Auto) Coronavirus (PCR) 06/21/21 06/21/21 06/21/21 11:01 11:20 15:57 WBC RBC Hgb Hct RDW Plt Count Lymph % (Auto) Lymph # (Auto) Seg Neutrophils % Seg Neuts % (Manual) Lymphocytes % (Manual) Nucleated RBC % Seg Neutrophils # Seg Neutrophils # Man Lymphocytes # (Manual) Monocytes # (Manual) PT INR APTT D-Dimer ABG pH POC ABG pCO2 POC ABG pO2 58.9 L ABG pO2 ABG HCO3 ABG O2 Saturation ABG Base Excess ABG Hemoglobin ABG Oxyhemoglobin 87.4 L ABG Methemoglobin ABG Sodium ABG Potassium ABG Chloride ABG Glucose 212 H Oxyhemoglobin Carboxyhemoglobin Sodium Potassium Chloride Carbon Dioxide BUN Creatinine Glucose POC Glucose 194 H 171 H Hemoglobin A1c Calcium Phosphorus Magnesium Ferritin Lactate Dehydrogenase Troponin T C-Reactive Protein Total Protein Albumin Ggket-7-Ytovhfjtf Dgjxb-7-Wnsmuzblw Beta Globulins PEP Interpretation Triglycerides HDL Cholesterol Arterial Blood Glucose 212 H Arterial Blood Ionized Calcium 4.5 L Urine WBC (Auto) Coronavirus (PCR) 06/21/21 06/21/21 06/21/21 17:52 17:55 22:09 WBC RBC Hgb Hct RDW Plt Count Lymph % (Auto) Lymph # (Auto) Seg Neutrophils % Seg Neuts % (Manual) Lymphocytes % (Manual) Nucleated RBC % Seg Neutrophils # Seg Neutrophils # Man Lymphocytes # (Manual) Monocytes # (Manual) PT INR APTT D-Dimer ABG pH 7.316 L POC ABG pCO2 51.7 H POC ABG pO2 62.3 L ABG pO2 ABG HCO3 ABG O2 Saturation ABG Base Excess ABG Hemoglobin ABG Oxyhemoglobin 88.7 L ABG Methemoglobin ABG Sodium ABG Potassium ABG Chloride ABG Glucose 197 H Oxyhemoglobin Carboxyhemoglobin Sodium Potassium Chloride Carbon Dioxide BUN Creatinine Glucose POC Glucose 153 H 178 H Hemoglobin A1c Calcium Phosphorus Magnesium Ferritin Lactate Dehydrogenase Troponin T C-Reactive Protein Total Protein Albumin Wcnng-9-Xjymsatdd Gnvfi-7-Bqycsswip Beta Globulins PEP Interpretation Triglycerides HDL Cholesterol Arterial Blood Glucose 197 H Arterial Blood Ionized Calcium Urine WBC (Auto) Coronavirus (PCR) 06/22/21 06/22/21 06/22/21 07:30 07:43 11:47 WBC RBC Hgb Hct RDW Plt Count Lymph % (Auto) Lymph # (Auto) Seg Neutrophils % Seg Neuts % (Manual) Lymphocytes % (Manual) Nucleated RBC % Seg Neutrophils # Seg Neutrophils # Man Lymphocytes # (Manual) Monocytes # (Manual) PT INR APTT D-Dimer ABG pH POC ABG pCO2 POC ABG pO2 ABG pO2 ABG HCO3 ABG O2 Saturation ABG Base Excess ABG Hemoglobin ABG Oxyhemoglobin ABG Methemoglobin ABG Sodium ABG Potassium ABG Chloride ABG Glucose Oxyhemoglobin Carboxyhemoglobin Sodium Potassium Chloride Carbon Dioxide 21 L BUN 55 H Creatinine 2.8 H Glucose 219 H POC Glucose 235 H 222 H Hemoglobin A1c Calcium Phosphorus Magnesium Ferritin Lactate Dehydrogenase Troponin T C-Reactive Protein Total Protein Albumin Dmltv-5-Ftrujhtrw Rjfar-7-Ubpasxhrg Beta Globulins PEP Interpretation Triglycerides HDL Cholesterol Arterial Blood Glucose Arterial Blood Ionized Calcium Urine WBC (Auto) Coronavirus (PCR) 06/22/21 06/22/21 06/22/21 11:50 12:10 15:15 WBC RBC Hgb Hct RDW Plt Count Lymph % (Auto) Lymph # (Auto) Seg Neutrophils % Seg Neuts % (Manual) Lymphocytes % (Manual) Nucleated RBC % Seg Neutrophils # Seg Neutrophils # Man Lymphocytes # (Manual) Monocytes # (Manual) PT INR APTT D-Dimer ABG pH 7.273 L POC ABG pCO2 POC ABG pO2 56.8 L 56.8 L ABG pO2 58.0 L ABG HCO3 ABG O2 Saturation 85.7 L ABG Base Excess -4.9 L ABG Hemoglobin ABG Oxyhemoglobin 86.7 L 86.7 L ABG Methemoglobin ABG Sodium ABG Potassium ABG Chloride ABG Glucose Oxyhemoglobin 84.1 L Carboxyhemoglobin Sodium Potassium Chloride Carbon Dioxide BUN Creatinine Glucose POC Glucose Hemoglobin A1c Calcium Phosphorus Magnesium Ferritin Lactate Dehydrogenase Troponin T C-Reactive Protein Total Protein Albumin Txqmu-7-Viqtdvmmd Iotxo-1-Sunzcgzzn Beta Globulins PEP Interpretation Triglycerides HDL Cholesterol Arterial Blood Glucose Arterial Blood Ionized Calcium Urine WBC (Auto) Coronavirus (PCR) 06/22/21 06/22/21 06/22/21 17:28 21:22 23:35 WBC RBC Hgb Hct RDW Plt Count Lymph % (Auto) Lymph # (Auto) Seg Neutrophils % Seg Neuts % (Manual) Lymphocytes % (Manual) Nucleated RBC % Seg Neutrophils # Seg Neutrophils # Man Lymphocytes # (Manual) Monocytes # (Manual) PT INR APTT D-Dimer ABG pH 7.217 L POC ABG pCO2 POC ABG pO2 ABG pO2 61.7 L ABG HCO3 ABG O2 Saturation 87.3 L ABG Base Excess -6.0 L ABG Hemoglobin ABG Oxyhemoglobin ABG Methemoglobin ABG Sodium ABG Potassium ABG Chloride ABG Glucose Oxyhemoglobin 85.4 L Carboxyhemoglobin Sodium Potassium Chloride Carbon Dioxide BUN Creatinine Glucose POC Glucose 221 H 204 H Hemoglobin A1c Calcium Phosphorus Magnesium Ferritin Lactate Dehydrogenase Troponin T C-Reactive Protein Total Protein Albumin Frhuw-0-Gbejqrecn Slfxm-8-Nkpworivx Beta Globulins PEP Interpretation Triglycerides HDL Cholesterol Arterial Blood Glucose Arterial Blood Ionized Calcium Urine WBC (Auto) Coronavirus (PCR) 06/23/21 06/23/21 06/23/21 04:42 04:42 04:42 WBC 19.0 H RBC 5.04 H Hgb Hct 44.5 H RDW 16.6 H Plt Count 61 L Lymph % (Auto) Lymph # (Auto) Seg Neutrophils % Seg Neuts % (Manual) Lymphocytes % (Manual) 2.0 L Nucleated RBC % 46.0 H Seg Neutrophils # Seg Neutrophils # Man 13.1 H Lymphocytes # (Manual) 0.4 L Monocytes # (Manual) 1.1 H PT INR APTT D-Dimer 6308.27 H ABG pH POC ABG pCO2 POC ABG pO2 ABG pO2 ABG HCO3 ABG O2 Saturation ABG Base Excess ABG Hemoglobin ABG Oxyhemoglobin ABG Methemoglobin ABG Sodium ABG Potassium ABG Chloride ABG Glucose Oxyhemoglobin Carboxyhemoglobin Sodium Potassium 6.3 H* D Chloride Carbon Dioxide 21 L BUN 72 H Creatinine 4.6 H D Glucose 225 H POC Glucose Hemoglobin A1c Calcium 8.0 L Phosphorus Magnesium Ferritin Lactate Dehydrogenase Troponin T C-Reactive Protein Total Protein Albumin Luucr-7-Tsqqyxbbn Pnqmc-7-Utpqxvome Beta Globulins PEP Interpretation Triglycerides HDL Cholesterol Arterial Blood Glucose Arterial Blood Ionized Calcium Urine WBC (Auto) Coronavirus (PCR) 06/23/21 06/23/21 06/23/21 04:42 04:42 05:33 WBC RBC Hgb Hct RDW Plt Count Lymph % (Auto) Lymph # (Auto) Seg Neutrophils % Seg Neuts % (Manual) Lymphocytes % (Manual) Nucleated RBC % Seg Neutrophils # Seg Neutrophils # Man Lymphocytes # (Manual) Monocytes # (Manual) PT INR APTT D-Dimer ABG pH POC ABG pCO2 POC ABG pO2 ABG pO2 ABG HCO3 ABG O2 Saturation ABG Base Excess ABG Hemoglobin ABG Oxyhemoglobin ABG Methemoglobin ABG Sodium ABG Potassium ABG Chloride ABG Glucose Oxyhemoglobin Carboxyhemoglobin Sodium Potassium Chloride Carbon Dioxide BUN Creatinine Glucose POC Glucose 227 H Hemoglobin A1c Calcium 7.9 L Phosphorus 8.30 H Magnesium Ferritin 1496.0 H Lactate Dehydrogenase Troponin T C-Reactive Protein 4.40 H Total Protein Albumin Xuiru-7-[place] Aragw-0-Wycqhhnmf Beta Globulins PEP Interpretation Triglycerides HDL Cholesterol Arterial Blood Glucose Arterial Blood Ionized Calcium Urine WBC (Auto) Coronavirus (PCR) 06/23/21 06/23/21 06/23/21 11:00 11:31 17:40 WBC RBC Hgb Hct RDW Plt Count Lymph % (Auto) Lymph # (Auto) Seg Neutrophils % Seg Neuts % (Manual) Lymphocytes % (Manual) Nucleated RBC % Seg Neutrophils # Seg Neutrophils # Man Lymphocytes # (Manual) Monocytes # (Manual) PT INR APTT D-Dimer ABG pH 7.177 L POC ABG pCO2 58.9 H POC ABG pO2 60.2 L ABG pO2 ABG HCO3 ABG O2 Saturation ABG Base Excess ABG Hemoglobin ABG Oxyhemoglobin 83.5 L ABG Methemoglobin 1.8 H ABG Sodium ABG Potassium ABG Chloride ABG Glucose Oxyhemoglobin Carboxyhemoglobin Sodium Potassium Chloride Carbon Dioxide BUN Creatinine Glucose POC Glucose 207 H Hemoglobin A1c Calcium Phosphorus Magnesium Ferritin Lactate Dehydrogenase Troponin T C-Reactive Protein Total Protein Albumin Hgene-2-Kpyarjfok Dtvyl-2-Tepgipzaa Beta Globulins PEP Interpretation Triglycerides HDL Cholesterol Arterial Blood Glucose Arterial Blood Ionized Calcium Urine WBC (Auto) > 182.0 H Coronavirus (PCR) 06/23/21 06/23/21 06/23/21 17:52 21:12 Unknown WBC RBC Hgb Hct RDW Plt Count Lymph % (Auto) Lymph # (Auto) Seg Neutrophils % Seg Neuts % (Manual) Lymphocytes % (Manual) Nucleated RBC % Seg Neutrophils # Seg Neutrophils # Man Lymphocytes # (Manual) Monocytes # (Manual) PT INR APTT D-Dimer 6308 H ABG pH 7.214 L POC ABG pCO2 60.2 H POC ABG pO2 78.9 L ABG pO2 ABG HCO3 ABG O2 Saturation ABG Base Excess ABG Hemoglobin ABG Oxyhemoglobin 93.4 L ABG Methemoglobin ABG Sodium ABG Potassium 6.3 H ABG Chloride ABG Glucose 338 H Oxyhemoglobin Carboxyhemoglobin Sodium Potassium Chloride Carbon Dioxide BUN Creatinine Glucose POC Glucose 232 H Hemoglobin A1c Calcium Phosphorus Magnesium Ferritin Lactate Dehydrogenase Troponin T C-Reactive Protein Total Protein Albumin Hchrs-2-Lbpiirvxf Corva-0-Rehaggyus Beta Globulins PEP Interpretation Triglycerides HDL Cholesterol Arterial Blood Glucose 338 H Arterial Blood Ionized Calcium 4.1 L Urine WBC (Auto) Coronavirus (PCR) 06/23/21 06/23/21 06/23/21 Unknown Unknown Unknown WBC RBC Hgb Hct RDW Plt Count Lymph % (Auto) Lymph # (Auto) Seg Neutrophils % Seg Neuts % (Manual) Lymphocytes % (Manual) Nucleated RBC % Seg Neutrophils # Seg Neutrophils # Man Lymphocytes # (Manual) Monocytes # (Manual) PT 24.6 H INR 2.18 H APTT 43.8 H D-Dimer ABG pH POC ABG pCO2 POC ABG pO2 ABG pO2 ABG HCO3 ABG O2 Saturation ABG Base Excess ABG Hemoglobin ABG Oxyhemoglobin ABG Methemoglobin ABG Sodium ABG Potassium ABG Chloride ABG Glucose Oxyhemoglobin Carboxyhemoglobin Sodium 146 H Potassium 5.3 H Chloride 113.2 H Carbon Dioxide 20 L BUN 73 H Creatinine 4.2 H Glucose 234 H POC Glucose Hemoglobin A1c Calcium 6.3 L D Phosphorus Magnesium Ferritin 1094.0 H Lactate Dehydrogenase Troponin T C-Reactive Protein Total Protein 4.3 L Albumin 2.0 L Eotmx-1-Sbzdzntyw Ruphe-0-Oaewlusbf Beta Globulins PEP Interpretation Triglycerides HDL Cholesterol Arterial Blood Glucose Arterial Blood Ionized Calcium Urine WBC (Auto) Coronavirus (PCR) 06/24/21 06/24/21 06/24/21 00:03 04:55 04:55 WBC 18.7 H RBC Hgb Hct RDW 16.8 H Plt Count 42 L Lymph % (Auto) Lymph # (Auto) Seg Neutrophils % Seg Neuts % (Manual) Lymphocytes % (Manual) 1.0 L Nucleated RBC % 1.0 H Seg Neutrophils # Seg Neutrophils # Man 12.7 H Lymphocytes # (Manual) 0.2 L Monocytes # (Manual) PT INR APTT D-Dimer ABG pH POC ABG pCO2 POC ABG pO2 ABG pO2 ABG HCO3 ABG O2 Saturation ABG Base Excess ABG Hemoglobin ABG Oxyhemoglobin ABG Methemoglobin ABG Sodium ABG Potassium ABG Chloride ABG Glucose Oxyhemoglobin Carboxyhemoglobin Sodium Potassium 6.0 H Chloride Carbon Dioxide 20 L BUN 86 H Creatinine 5.4 H Glucose 309 H POC Glucose 265 H Hemoglobin A1c Calcium 6.5 L Phosphorus 7.60 H Magnesium Ferritin Lactate Dehydrogenase Troponin T C-Reactive Protein Total Protein 4.6 L Albumin 2.1 L Ffkxr-7-Cvbzjusxv Fhkrx-4-Trxebifvt Beta Globulins PEP Interpretation Triglycerides HDL Cholesterol Arterial Blood Glucose Arterial Blood Ionized Calcium Urine WBC (Auto) Coronavirus (PCR) 06/24/21 06/24/21 06/24/21 04:55 06:01 11:38 WBC RBC Hgb Hct RDW Plt Count Lymph % (Auto) Lymph # (Auto) Seg Neutrophils % Seg Neuts % (Manual) Lymphocytes % (Manual) Nucleated RBC % Seg Neutrophils # Seg Neutrophils # Man Lymphocytes # (Manual) Monocytes # (Manual) PT 22.2 H INR 1.90 H APTT D-Dimer ABG pH POC ABG pCO2 POC ABG pO2 ABG pO2 ABG HCO3 ABG O2 Saturation ABG Base Excess ABG Hemoglobin ABG Oxyhemoglobin ABG Methemoglobin ABG Sodium ABG Potassium ABG Chloride ABG Glucose Oxyhemoglobin Carboxyhemoglobin Sodium Potassium Chloride Carbon Dioxide BUN Creatinine Glucose POC Glucose 257 H 288 H Hemoglobin A1c Calcium Phosphorus Magnesium Ferritin Lactate Dehydrogenase Troponin T C-Reactive Protein Total Protein Albumin Crqfh-6-Rrlromkhi Euluu-1-Wqpwsktjf Beta Globulins PEP Interpretation Triglycerides HDL Cholesterol Arterial Blood Glucose Arterial Blood Ionized Calcium Urine WBC (Auto) Coronavirus (PCR) 06/24/21 06/24/21 06/25/21 18:02 23:29 05:12 WBC RBC Hgb Hct RDW Plt Count Lymph % (Auto) Lymph # (Auto) Seg Neutrophils % Seg Neuts % (Manual) Lymphocytes % (Manual) Nucleated RBC % Seg Neutrophils # Seg Neutrophils # Man Lymphocytes # (Manual) Monocytes # (Manual) PT INR APTT D-Dimer ABG pH POC ABG pCO2 POC ABG pO2 ABG pO2 ABG HCO3 ABG O2 Saturation ABG Base Excess ABG Hemoglobin ABG Oxyhemoglobin ABG Methemoglobin ABG Sodium ABG Potassium ABG Chloride ABG Glucose Oxyhemoglobin Carboxyhemoglobin Sodium Potassium Chloride Carbon Dioxide BUN Creatinine Glucose POC Glucose 299 H 269 H 283 H Hemoglobin A1c Calcium Phosphorus Magnesium Ferritin Lactate Dehydrogenase Troponin T C-Reactive Protein Total Protein Albumin Pnjzd-9-Imgyfblpt Ckgcv-6-Chzripfjm Beta Globulins PEP Interpretation Triglycerides HDL Cholesterol Arterial Blood Glucose Arterial Blood Ionized Calcium Urine WBC (Auto) Coronavirus (PCR) 06/25/21 06/25/21 06/25/21 09:05 09:05 09:05 WBC 14.5 H RBC Hgb Hct RDW 16.4 H Plt Count 41 L Lymph % (Auto) Lymph # (Auto) Seg Neutrophils % Seg Neuts % (Manual) Lymphocytes % (Manual) Nucleated RBC % Seg Neutrophils # Seg Neutrophils # Man Lymphocytes # (Manual) Monocytes # (Manual) PT 20.2 H INR 1.68 H APTT D-Dimer ABG pH POC ABG pCO2 POC ABG pO2 ABG pO2 ABG HCO3 ABG O2 Saturation ABG Base Excess ABG Hemoglobin ABG Oxyhemoglobin ABG Methemoglobin ABG Sodium ABG Potassium ABG Chloride ABG Glucose Oxyhemoglobin Carboxyhemoglobin Sodium Potassium 5.5 H Chloride 97.2 L Carbon Dioxide BUN 88 H Creatinine 5.6 H Glucose 370 H POC Glucose Hemoglobin A1c Calcium 7.4 L Phosphorus 8.00 H Magnesium Ferritin Lactate Dehydrogenase Troponin T C-Reactive Protein Total Protein 5.1 L Albumin 2.5 L Hxjow-8-Cvuusmjfi Gpbee-4-Goxccxyfu Beta Globulins PEP Interpretation Triglycerides HDL Cholesterol Arterial Blood Glucose Arterial Blood Ionized Calcium Urine WBC (Auto) Coronavirus (PCR) 06/25/21 06/25/21 06/25/21 09:29 12:05 17:28 WBC RBC Hgb Hct RDW Plt Count Lymph % (Auto) Lymph # (Auto) Seg Neutrophils % Seg Neuts % (Manual) Lymphocytes % (Manual) Nucleated RBC % Seg Neutrophils # Seg Neutrophils # Man Lymphocytes # (Manual) Monocytes # (Manual) PT INR APTT D-Dimer ABG pH 7.304 L POC ABG pCO2 53.2 H POC ABG pO2 ABG pO2 ABG HCO3 ABG O2 Saturation ABG Base Excess ABG Hemoglobin 10.9 L ABG Oxyhemoglobin ABG Methemoglobin ABG Sodium 133.9 L ABG Potassium 5.8 H ABG Chloride ABG Glucose 380 H Oxyhemoglobin Carboxyhemoglobin 0.4 L Sodium Potassium Chloride Carbon Dioxide BUN Creatinine Glucose POC Glucose 359 H 288 H Hemoglobin A1c Calcium Phosphorus Magnesium Ferritin Lactate Dehydrogenase Troponin T C-Reactive Protein Total Protein Albumin Rnzlr-8-Jepjfomxv Mqylo-0-Roxaelqpg Beta Globulins PEP Interpretation Triglycerides HDL Cholesterol Arterial Blood Glucose 380 H Arterial Blood Ionized Calcium Urine WBC (Auto) Coronavirus (PCR) 06/25/21 06/25/21 06/26/21 21:00 23:46 05:14 WBC RBC Hgb Hct RDW Plt Count Lymph % (Auto) Lymph # (Auto) Seg Neutrophils % Seg Neuts % (Manual) Lymphocytes % (Manual) Nucleated RBC % Seg Neutrophils # Seg Neutrophils # Man Lymphocytes # (Manual) Monocytes # (Manual) PT INR APTT D-Dimer ABG pH 7.280 L 7.268 L POC ABG pCO2 59.7 H 60.2 H POC ABG pO2 113.7 H ABG pO2 ABG HCO3 ABG O2 Saturation ABG Base Excess ABG Hemoglobin 11.4 L 10.9 L ABG Oxyhemoglobin ABG Methemoglobin ABG Sodium 134.4 L 133.3 L ABG Potassium 4.7 H ABG Chloride ABG Glucose 313 H 353 H Oxyhemoglobin Carboxyhemoglobin 0.4 L Sodium Potassium Chloride Carbon Dioxide BUN Creatinine Glucose POC Glucose 325 H Hemoglobin A1c Calcium Phosphorus Magnesium Ferritin Lactate Dehydrogenase Troponin T C-Reactive Protein Total Protein Albumin Xpyeh-0-Xsdrslcwi Zrxbj-3-Tciqxtxah Beta Globulins PEP Interpretation Triglycerides HDL Cholesterol Arterial Blood Glucose 313 H 353 H Arterial Blood Ionized Calcium Urine WBC (Auto) Coronavirus (PCR) 06/26/21 06/26/21 06/26/21 05:27 07:00 07:00 WBC 11.4 H RBC 3.63 L Hgb Hct RDW 15.6 H Plt Count 29 L Lymph % (Auto) 6.4 L Lymph # (Auto) 0.7 L Seg Neutrophils % 87.9 H Seg Neuts % (Manual) Lymphocytes % (Manual) Nucleated RBC % Seg Neutrophils # 10.4 H Seg Neutrophils # Man Lymphocytes # (Manual) Monocytes # (Manual) PT INR APTT D-Dimer ABG pH POC ABG pCO2 POC ABG pO2 ABG pO2 ABG HCO3 ABG O2 Saturation ABG Base Excess ABG Hemoglobin ABG Oxyhemoglobin ABG Methemoglobin ABG Sodium ABG Potassium ABG Chloride ABG Glucose Oxyhemoglobin Carboxyhemoglobin Sodium Potassium Chloride Carbon Dioxide BUN Creatinine Glucose POC Glucose 345 H Hemoglobin A1c Calcium Phosphorus 7.40 H Magnesium Ferritin Lactate Dehydrogenase Troponin T C-Reactive Protein Total Protein Albumin Qwudd-5-Xakuztnfo Wvfmu-8-Yzefaqdjh Beta Globulins PEP Interpretation Triglycerides HDL Cholesterol Arterial Blood Glucose Arterial Blood Ionized Calcium Urine WBC (Auto) Coronavirus (PCR) 06/26/21 06/26/21 06/26/21 10:00 10:00 13:01 WBC RBC Hgb Hct RDW Plt Count Lymph % (Auto) Lymph # (Auto) Seg Neutrophils % Seg Neuts % (Manual) Lymphocytes % (Manual) Nucleated RBC % Seg Neutrophils # Seg Neutrophils # Man Lymphocytes # (Manual) Monocytes # (Manual) PT INR APTT D-Dimer 1363.54 H ABG pH POC ABG pCO2 POC ABG pO2 ABG pO2 ABG HCO3 ABG O2 Saturation ABG Base Excess ABG Hemoglobin ABG Oxyhemoglobin ABG Methemoglobin ABG Sodium ABG Potassium ABG Chloride ABG Glucose Oxyhemoglobin Carboxyhemoglobin Sodium 136 L Potassium Chloride 96.1 L Carbon Dioxide BUN 78 H Creatinine 4.6 H Glucose 378 H POC Glucose 363 H Hemoglobin A1c Calcium 8.3 L Phosphorus Magnesium Ferritin Lactate Dehydrogenase Troponin T C-Reactive Protein Total Protein Albumin Mooxu-4-Rjzhyaslt Bliks-4-Amyzkwqjp Beta Globulins PEP Interpretation Triglycerides HDL Cholesterol Arterial Blood Glucose Arterial Blood Ionized Calcium Urine WBC (Auto) Coronavirus (PCR) 06/26/21 06/26/21 06/27/21 18:53 23:08 00:15 WBC RBC Hgb Hct RDW Plt Count Lymph % (Auto) Lymph # (Auto) Seg Neutrophils % Seg Neuts % (Manual) Lymphocytes % (Manual) Nucleated RBC % Seg Neutrophils # Seg Neutrophils # Man Lymphocytes # (Manual) Monocytes # (Manual) PT INR APTT D-Dimer ABG pH POC ABG pCO2 POC ABG pO2 ABG pO2 ABG HCO3 ABG O2 Saturation ABG Base Excess ABG Hemoglobin ABG Oxyhemoglobin ABG Methemoglobin ABG Sodium ABG Potassium ABG Chloride ABG Glucose Oxyhemoglobin Carboxyhemoglobin Sodium Potassium Chloride Carbon Dioxide BUN Creatinine Glucose POC Glucose 329 H 337 H 308 H Hemoglobin A1c Calcium Phosphorus Magnesium Ferritin Lactate Dehydrogenase Troponin T C-Reactive Protein Total Protein Albumin Wzxjo-0-Mhbgtfduc Zzdim-2-Ypetfywtf Beta Globulins PEP Interpretation Triglycerides HDL Cholesterol Arterial Blood Glucose Arterial Blood Ionized Calcium Urine WBC (Auto) Coronavirus (PCR) 06/27/21 06/27/21 06/27/21 05:13 06:40 06:40 WBC 12.5 H RBC Hgb Hct RDW 16.1 H Plt Count 23 L Lymph % (Auto) Lymph # (Auto) Seg Neutrophils % Seg Neuts % (Manual) Lymphocytes % (Manual) Nucleated RBC % Seg Neutrophils # 11.3 H Seg Neutrophils # Man Lymphocytes # (Manual) Monocytes # (Manual) PT INR APTT D-Dimer ABG pH POC ABG pCO2 POC ABG pO2 ABG pO2 ABG HCO3 ABG O2 Saturation ABG Base Excess ABG Hemoglobin ABG Oxyhemoglobin ABG Methemoglobin ABG Sodium ABG Potassium ABG Chloride ABG Glucose Oxyhemoglobin Carboxyhemoglobin Sodium 133 L Potassium 5.4 H Chloride 93.4 L Carbon Dioxide BUN 96 H Creatinine 5.6 H Glucose 388 H POC Glucose 329 H Hemoglobin A1c Calcium 8.3 L Phosphorus 8.70 H Magnesium Ferritin Lactate Dehydrogenase Troponin T C-Reactive Protein Total Protein Albumin Kcuow-9-Kblexbuot Hasqx-0-Pfkvzgidb Beta Globulins PEP Interpretation Triglycerides HDL Cholesterol Arterial Blood Glucose Arterial Blood Ionized Calcium Urine WBC (Auto) Coronavirus (PCR) 06/27/21 06/27/21 11:46 Unknown WBC RBC Hgb Hct RDW Plt Count Lymph % (Auto) Lymph # (Auto) Seg Neutrophils % Seg Neuts % (Manual) Lymphocytes % (Manual) Nucleated RBC % Seg Neutrophils # Seg Neutrophils # Man Lymphocytes # (Manual) Monocytes # (Manual) PT INR APTT D-Dimer ABG pH 7.230 L POC ABG pCO2 POC ABG pO2 ABG pO2 92.0 H ABG HCO3 26.2 H ABG O2 Saturation ABG Base Excess ABG Hemoglobin 8.2 L ABG Oxyhemoglobin ABG Methemoglobin ABG Sodium ABG Potassium ABG Chloride ABG Glucose Oxyhemoglobin 94.6 L Carboxyhemoglobin Sodium Potassium Chloride Carbon Dioxide BUN Creatinine Glucose POC Glucose 330 H Hemoglobin A1c Calcium Phosphorus Magnesium Ferritin Lactate Dehydrogenase Troponin T C-Reactive Protein Total Protein Albumin Djxhy-0-Lvecmitqe Cbmte-4-Stkvsznbd Beta Globulins PEP Interpretation Triglycerides HDL Cholesterol Arterial Blood Glucose Arterial Blood Ionized Calcium Urine WBC (Auto) Coronavirus (PCR) Chest x-ray: image reviewed Allied health notes reviewed: nursing
[2021-06-27] MEDS: NORepinephrine/NS 8 MG-250 ML 8 MG/250 ML INFUS..BTL IV SCH (16:27)
--- NOTE | 2021-06-27 16:31 | Progress Note ---
Assessment and Plan Assessment and Plan COVID-19 breakthrough infection COVID-19 pneumonia Acute kidney injury possibly 2/2 ATN, hypotension on underlying CKD Acute hypoxic respiratory failure Insulin-dependent type 2 diabetes- uncontrolled Elevated troponin Hypertension-controlled Hypothyroidism Protein calorie malnutrition Hypernatremia Plan HD today for gentle UF and clearance Renal function reviewed, SCr level increased to 5.6 today, yesterday's SCr level was 4.6 S/p Right IJ Vas catheter placement on 06/24/21 Initiated on HD on 06/24/21 Assess need for HD on daily basis Off pressors for now Renal US was negative for hydronephrosis Renally dose medications Strict I&O's daily Intake= 2416 ml Output= 140 ml (Net= 2276 ml) Renal plan reviewed by Dr Antoine Campbell d/w ICU nurse Subjective Date of service: 06/27/21 Principal diagnosis: ARDS; Pneumonia; COVID-19 virus infection; TREMAINE; DM II; Morbid obesity Interval history: Pt on isolation for covid-19, reviewed medical chart, labs, and notes. Objective - Vital Signs Vital signs: Vital Signs - 12hr 06/27/21 06/27/21 06/27/21 05:01 06:00 07:00 Temperature Pulse Rate 131 H 131 H 104 H Pulse Rate [ From Monitor] Respiratory 19 25 H 24 Rate Blood Pressure 156/121 142/83 123/78 O2 Sat by Pulse 88 87 87 Oximetry 06/27/21 06/27/21 06/27/21 07:38 08:00 09:00 Temperature 98.2 F Pulse Rate 104 H 105 H Pulse Rate [ 108 H From Monitor] Respiratory 24 25 H Rate Blood Pressure 113/73 134/74 O2 Sat by Pulse 91 91 Oximetry 06/27/21 06/27/21 06/27/21 09:36 10:00 11:00 Temperature Pulse Rate 103 H 101 H 100 H Pulse Rate [ From Monitor] Respiratory 25 H 25 H Rate Blood Pressure 107/67 101/70 111/59 O2 Sat by Pulse 91 92 97 Oximetry 06/27/21 06/27/21 06/27/21 11:45 12:00 12:01 Temperature Pulse Rate 94 H 99 H 95 H Pulse Rate [ 98 H From Monitor] Respiratory 25 H Rate Blood Pressure 98/57 118/73 O2 Sat by Pulse 98 95 95 Oximetry 06/27/21 06/27/21 12:02 13:00 Temperature 98.0 F Pulse Rate 91 H Pulse Rate [ From Monitor] Respiratory 25 H Rate Blood Pressure 93/63 O2 Sat by Pulse 96 Oximetry - Lab 06/27/21 06:40 06/27/21 06:40 Most recent lab results ABG pH 7.230 pH Units (7.350-7.450) L 06/27/21 Unknown ABG pCO2 64.0 mm Hg 06/27/21 Unknown ABG pO2 92.0 mm Hg (80.0-90.0) H 06/27/21 Unknown ABG HCO3 26.2 mmol/L (20.0-26.0) H 06/27/21 Unknown ABG O2 Saturation 96.8 % (95.0-99.0) 06/27/21 Unknown Calcium 8.3 mg/dL (8.4-10.2) L 06/27/21 06:40 Phosphorus 8.70 mg/dL (2.5-4.5) H 06/27/21 06:40 Magnesium 2.30 mg/dL (1.7-2.3) 06/27/21 06:40 Medications & Allergies - Medications Allergies/Adverse Reactions: Allergies latex Allergy (Verified 03/19/19 17:03) Unknown shellfish derived Allergy (Verified 03/19/19 17:03) Anaphylaxis strawberry Allergy (Verified 03/19/19 17:03) Anaphylaxis tomato Allergy (Verified 03/19/19 17:03) Anaphylaxis nuts Allergy (Uncoded 03/19/19 17:03) Anaphylaxis Home Medications: Home Medications Medication Instructions Recorded Confirmed Last Taken Type Albuterol Sulfate [Ventolin HFA] 2 puff IH Q4H PRN 01/29/14 06/11/21 02/01/15 History Levothyroxine (Nf) [Synthroid (Nf)] 275 mcg PO QAM 01/29/14 06/11/21 02/01/15 History Fluticasone/Salmeterol [Advair 1 each IH PRN PRN 01/26/15 06/11/21 02/02/15 10:00 History Diskus 250-50 mcg] Apixaban [Eliquis starter pack] 5 mg PO BID 09/13/19 06/11/21 Unknown History Insulin Aspart Prot/Insuln Asp 45 unit SUB-Q QAM 09/13/19 06/11/21 Unknown His tory [Novolog Mix 70-30 Flexpen] Insulin Glargine,Hum.rec.anlog 25 unit SQ HS 09/13/19 06/11/21 Unknown History [Basaglar Kwikpen U-100] Lovastatin [Altoprev] 20 mg PO DAILY 09/13/19 06/11/21 Unknown History Docusate Sodium [Colace CAP] 100 mg PO BID PRN #30 capsule 09/17/19 06/11/21 Unknown Rx Loratadine/Pseudoephedrine 1 each PO Q24HR #10 tablet 09/17/19 06/11/21 Unknown Rx [Claritin-D 24HR] Ondansetron [Zofran Odt] 4 mg PO Q8HR #20 tab.rapdis 09/17/19 06/11/21 Unknown Rx carvediloL [Coreg] 3.125 mg PO BID #60 tablet 09/17/19 06/11/21 Unknown Rx hydrALAZINE [Apresoline TAB] 25 mg PO Q8HR #90 tablet 09/17/19 06/11/21 Unknown Rx Active Medications: Generic Name Dose Route Start Last Admin Trade Name Freq PRN Reason Stop Dose Admin Acetaminophen 650 mg 06/07/21 21:41 06/24/21 11:45 Acetaminophen 325 Mg Tab PO 650 mg Q4H PRN Administration Pain MILD(1-3)/Fever >100.5/MARTÍNEZ Albumin Human 25 gm 06/24/21 14:55 Albumin Human 25% (25 Gm/100 Ml) Inj IV KORINA PRN Hypotension Albuterol 2 mg 06/23/21 09:00 Albuterol 2.5 Mg/3 Ml Nebu IH Q4HRT PRN Shortness Of Breath Lipase/Protease/Amylase 1 each 06/24/21 14:18 Lipase 10,500/Protease 25,000/Amylase 43,750 (Units) Dr Barahona FEEDTUBE PRN PRN For Clogged Feeding Tube Ascorbic Acid 500 mg 06/22/21 22:00 06/27/21 09:40 Ascorbic Acid 500 Mg Tab PO 500 mg BID LEONOR Administration Atorvastatin Calcium 10 mg 06/08/21 10:00 06/27/21 11:57 Atorvastatin 10 Mg Tab PO 10 mg DAILY LEONOR Administration Dextrose 50 ml 06/08/21 12:04 06/20/21 12:16 Dextrose 50% In Water (25gm) 50 Ml Syringe IV 50 ml Q30MIN PRN Administration Hypoglycemia Protocol Docusate Sodium 100 mg 06/23/21 09:00 Docusate Sodium 100 Mg/10 Ml Oral Liqd PO BID PRN Constipation Famotidine 10 mg 06/22/21 22:00 06/27/21 09:40 Famotidine 20 Mg/2 Ml Inj IV 10 mg BID LEONOR Administration Fentanyl 50 mcg 06/22/21 13:07 06/27/21 05:26 Fentanyl 100 Mcg/2 Ml Inj IV 50 mcg Q10MIN PRN Administration ANALGESIA Hydrophilic Ointment 1 applic 06/22/21 13:07 Lip Therapy Vaseline TP Q2HR PRN Dry Lips Fentanyl Citrate 2,000 mcg in 100 mls @ 8.2 mls/hr 06/22/21 14:00 06/27/21 15:35 Fentanyl Drip Premix IV 2 mcg/kg/hr TITR LEONOR 16.4 mls/hr Administration Protocol 1 MCG/KG/HR NORepinephrine/NS 8 MG-250 ML 8 mg in 250 mls @ 3.75 mls/hr 06/22/21 15:00 06/25/21 21:05 Norepinephrine/Ns 8 Mg-250 Ml (Double Conc) IV 0 mcg/min TITRATE LEONOR 0 mls/hr Titration Protocol 2 MCG/MIN Cefepime HCl 2 gm in 100 mls @ 200 mls/hr 06/23/21 08:00 06/27/21 08:19 Cefepime/Ns 2 Gm/100 Ml IV 06/29/21 08:29 200 mls/hr Q24H LEONOR Administration Protocol Vasopressin 20 unit/ Sodium 101 mls @ 9.09 mls/hr 06/23/21 09:00 06/25/21 16:25 Chloride IV 0 units/min TITR LEONOR 0 mls/hr Titration Protocol 0.03 UNITS/MIN Sodium Chloride 500 mls @ 1 mls/hr 06/23/21 11:19 Nacl 0.9% 500 Ml IV DIRECT PRN ARTERIAL LINE FLUSH Lacosamide 100 mg/ Sodium 110 mls @ 100 mls/hr 06/23/21 15:00 06/27/21 14:11 Chloride IV 100 mls/hr Q12H LEONOR Administration Sodium Chloride 100 mls @ 999 mls/hr 06/25/21 06:00 Nacl 0.9% IV KORINA PRN Hypotension Sodium Chloride 100 mls @ 999 mls/hr 06/25/21 14:13 Nacl 0.9% IV KORINA PRN Hypotension Amiodarone HCl 900 mg/ 500 mls @ 0 mls/hr 06/27/21 07:00 06/27/21 13:57 Dextrose IV 0.5 mls/hr DIRECT LEONOR Infusion Protocol Per Protocol Sodium Chloride 500 mls @ 0 mls/hr 06/27/21 11:42 Nacl 0.9% 500 Ml IV 06/28/21 11:41 ONCE NR As Directed Insulin Human Isoph/Insulin Regular 25 unit 06/27/21 09:00 06/27/21 13:57 Insulin Nph/Regular 70/30 Inj SUB-Q 25 unit TIDDIAB LEONOR Administration Insulin Human Regular 0 units 06/22/21 18:00 06/27/21 11:56 Insulin Regular, Human 100 Units/1 Ml SUB-Q 8 units Q6HR LEONOR Administration Protocol Levothyroxine Sodium 137.5 mcg 06/23/21 06:00 06/27/21 05:41 Levothyroxine 100 Mcg Inj IV 137.5 mcg DAILY@0600 LEONOR Administration Methylprednisolone Sodium Succinate 100 mg 06/28/21 08:00 Methylprednisolone Sod Succinate 125 Mg/2 Ml Inj IV Q12H LEONOR Metoclopramide HCl 5 mg 06/27/21 14:00 06/27/21 13:56 Metoclopramide 10 Mg/2 Ml Inj IV 06/29/21 13:59 5 mg Q8HR LEONOR Administration Midazolam HCl 5 mg 06/26/21 16:00 Midazolam 5 Mg/5 Ml Inj Mdv IV 07/06/21 23:59 PRN NR Midodrine 10 mg 06/22/21 15:00 06/27/21 14:11 Midodrine 5 Mg Tab PO 10 mg Q8H LEONOR Administration Multi-Ingred Cream/Lotion/Oil/Oint 1 applic 06/22/21 13:07 Mineral Oil/Petrolatum, White Ophth Oint 3.5 Gm OU Q4HR PRN Dry Eye(s) Ondansetron HCl 4 mg 06/07/21 21:41 06/20/21 22:15 Ondansetron 4 Mg/2 Ml Inj IV 4 mg Q8H PRN Administration Nausea And Vomiting Polyethylene Glycol 17 gm 06/27/21 13:16 Polyethylene Glycol 3350 17 Gm Powder PO QDAY PRN Constipation Senna/Docusate Sodium 1 tab 06/22/21 22:00 06/27/21 09:40 Sennosides/Docusate Sodium 8.6/50 Mg Tab FEEDTUBE 1 tab BID LEONOR Administration Simple Syrup 15 ml 06/24/21 14:18 Simple Syrup 15 Ml FEEDTUBE PRN PRN Hypoglycemia Simple Syrup 30 ml 06/24/21 14:18 Simple Syrup 15 Ml FEEDTUBE PRN PRN Hypoglycemia Sodium Bicarbonate 325 mg 06/24/21 14:18 Sodium Bicarbonate 325 Mg Tab FEEDTUBE PRN PRN For Clogged Feeding Tube Sodium Chloride 10 ml 06/07/21 22:00 06/27/21 09:42 Sodium Chloride 0.9% 10 Ml Flush Syringe IV 10 ml BID LEONOR Administration Sodium Chloride 10 ml 06/07/21 21:41 Sodium Chloride 0.9% 10 Ml Flush Syringe IV PRN PRN LINE FLUSH Zinc Sulfate 220 mg 06/22/21 22:00 06/27/21 09:40 Zinc Sulfate 220 Mg Cap PO 220 mg BID LEONOR Administration
--- NOTE | 2021-06-27 18:01 | Progress Note ---
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 Hospital Course to Date: 06/27/21- Patient remains intubated and sedated on fent gtt, RASS -2 to -3, not following any commands. Afib with RVR overnight was started on amio gtt, no BM for over 7days, bowel regimen was adjusted and reglan was added. Remains on high dose steroids, will start weaning steroids to twice a day starting tomorrow. Electrolytes imbalance noted with worsening in renal function, plan for HD today. 1jumbo of plt ordered for worsening throbocytopenia. Continue t o monitor electrolytes and renal function, am labs ordered. Assessment and Plan #Neuro: Seizure, acute metabolic encephalopathy -Witnessed seizure (06/23/2021) -06/26 CT head with no acute findings -EEG report pending -Continue Vimpat 100 mg twice daily in the setting of worsening renal function -Neurology consulted, appreciate recommendations -Aspiration/seizure precautions -Sedated with fentanyl for RASS goal of -2 to -3 #Cardio: Atrial Fibrilation #Hypotension #H/o CAD -ST this am -On amio gtt -Cardiology on consult, appreciate recommendation -Plan to continue amio [id number] then will transition to PO amio -Off pressors this morning -Vasopressor support as needed for MAP goal >65 -Hold antihypertensive at this time in the setting of hypotension -Continue home statin -Continue midodrine -AC on hold due to bleed and low plt #Respiratory: Acute hypoxic respiratory failure, ARDS 2/2 COVID 19 PNA -06/22 intubated with 7.50 ETT at 23 at the lips -Vent setting: A/C 100%,16,25,450 -Worsen acidosis noted from today's ABGs, d/w CCM vent changes made -Still on high dose steriods, start weaning steroids today -Continue daily serial ABGs and CXR #GI: MO, protein calorie malnutrition -TF at goal -High gastric residual this morning, TF was held -Reglan added to promote peristalsis -Last BM on 06/14 -Continue BR: Senokot, colace, Miralax added -Will start TF at goal, consider KUB if patient start having emesis -Continue PPI- Pepcid #: CKD stage III #hyperkalemia; hyperphosphatemia #metabolic acidosis -Nephrology consulted, appreciate recommendations -Hemodialysis initiated status post placement of access; last received on 06/25/2021 -Electrolytes imbalance noted, Plan for HD today -Renally dosed medications and avoid nephrotoxic medications #Heme: h/o DVT, coagulopathy of COVID #Thrombocytopenia -Patient was on Eliquis which was discontinued and converted to therapeutic Lovenox -Lovenox was switched to Heparin in the setting of worsening renal function -Bilateral lower extremity Doppler ultrasound completed-> no acute DVT -Transitioned to Eliquis for anticoagulation in the setting of worsening thrombocytopenia, now on hold due to bleeding from ETT - Plt 23 this am- 1 jumbo of platelet ordered -HEME on consult, appreciate recommendations -Pending HIT assay results -SCDs to bilateral directions while in bed -Trend CBC daily -Transfuse for hemoglobin less than 7 and plt less than 50 #ID: Sepsis, COVID-19 pneumonia -Infectious disease consulted, appreciate recommendations -S/p steroids for 10 days; S/p remdesivir -Still on high dose steroids -Vitamin C/zinc/vitamin D -contact/droplet isolation precautions -Trend COVID-19 inflammatory markers every 2-3 days -Currently on cefepime and vancomycin #Endo: HYperglycemia; #H/o insulin-dependent diabetes #Hypothyroidism -Continue IV levothyroxine 200 mcg -On high dose steroids -Accu-Cheks every 6 hours; increased to high dose SSI -Adjusted NPH TID for better glucose control -Goal glucose 140-180 while critically ill The high probability of a clinically significant, sudden or life threatening deterioration of the [cardio, respiratory, Endo] system(s) required my full and direct attention, intervention and personal management. The aggregate critical care time was [60] minutes. This time is in addition to time spent performing reported procedures but includes the following: [x] Data Review and interpretation [x] Patient assessment and monitoring of vital signs [x] Documentation [x] Medication orders and management Disposition Plan: Continue medical management Total Time Spent with Patient (Minutes): 60 History Interval history: Patient seen and examined. Remains intubated and sedated on fent gtt. Amio gtt was initiated overnight due to afib with RVR. TF was also held this morning due to high residual, no vomiting reported. Hospitalist Physical - Constitutional Vitals: Temp Pulse Resp BP Pulse Ox 97.5 F L 118 H 30 H 94/63 90 06/27/21 17:35 06/27/21 17:45 06/27/21 17:00 06/27/21 17:45 06/27/21 17:00 General appearance: Present: no acute distress, well-nourished, obese - EENT Eyes: Present: PERRL ENT: clear oral mucosa - Respiratory Respiratory effort: normal Respiratory: bilateral: rhonchi - Cardiovascular Rhythm: regular Heart Sounds: Present: S1 & S2 - Extremities Extremities: pulses intact, pulses symmetrical Extremity abnormal: edema - Peripheral Assessment Generalized Edema Type: Non-pitting Edema Degree: 1+ Capillary Refill: < 3 seconds Skin Temperature: Warm Peripheral Pulses: within normal limits - Abdominal General gastrointestinal: soft, non-tender, normal bowel sounds - Integumentary Integumentary: Present: clear, warm, dry - Psychiatric Psychiatric: other (Sedated) - Neurologic Neurologic: other (Sedated) - Allied Health Allied health notes reviewed: nursing HEART Score - HEART Score EKG: Non-specific Age: 45-65 Risk factors: 1-2 risk factors Troponin: Troponin T 0.021 ng/mL (0.00-0.029) 06/08/21 13:49 - Critical Actions Critical Actions: 0-3 pts:0.9-1.7%risk of adverse cardiac event.Candidate for discharge Results - Labs CBC & Chem 7: 06/27/21 06:40 06/27/21 06:40 Labs: Laboratory Last Values WBC 12.5 K/mm3 (4.5-11.0) H 06/27/21 06:40 RBC 3.85 M/mm3 (3.65-5.03) 06/27/21 06:40 Hgb 10.9 gm/dl (10.1-14.3) 06/27/21 06:40 Hct 33.9 % (30.3-42.9) 06/27/21 06:40 MCV 88 fl (79-97) 06/27/21 06:40 MCH 28 pg (28-32) 06/27/21 06:40 MCHC 32 % (30-34) 06/27/21 06:40 RDW 16.1 % (13.2-15.2) H 06/27/21 06:40 Plt Count 23 K/mm3 (140-440) L 06/27/21 06:40 Lymph % (Auto) 6.4 % (13.4-35.0) L 06/26/21 07:00 [place] % (Auto) 4.6 % (0.0-7.3) 06/27/21 06:40 Eos % (Auto) 0.0 % (0.0-4.3) 06/27/21 06:40 Baso % (Auto) 0.1 % (0.0-1.8) 06/26/21 07:00 Lymph # (Auto) 0.7 K/mm3 (1.2-5.4) L 06/26/21 07:00 [place] # (Auto) 0.6 K/mm3 (0.0-0.8) 06/27/21 06:40 Eos # (Auto) 0.0 K/mm3 (0.0-0.4) 06/27/21 06:40 Baso # (Auto) 0.0 K/mm3 (0.0-0.1) 06/27/21 06:40 Add Manual Diff Complete 06/27/21 06:40 Total Counted 100 06/24/21 04:55 Seg Neutrophils % Licensing Registration Examiner 06/27/21 06:40 Seg Neuts % (Manual) 68.0 % (40.0-70.0) 06/24/21 04:55 Band Neutrophils % 23.0 % 06/24/21 04:55 Lymphocytes % (Manual) 1.0 % (13.4-35.0) L 06/24/21 04:55 Monocytes % (Manual) 6.0 % (0.0-7.3) 06/23/21 04:42 Eosinophils % (Manual) 2.0 % (0.0-4.3) 06/23/21 04:42 Metamyelocytes % 2.0 % 06/10/21 23:14 Myelocytes % 8.0 % 06/24/21 04:55 Nucleated RBC % Not Reportable 06/27/21 06:40 Seg Neutrophils # 11.3 K/mm3 (1.8-7.7) H 06/27/21 06:40 Seg Neutrophils # Man 12.7 K/mm3 (1.8-7.7) H 06/24/21 04:55 Band Neutrophils # 4.3 K/mm3 06/24/21 04:55 Lymphocytes # (Manual) 0.2 K/mm3 (1.2-5.4) L 06/24/21 04:55 Abs React Lymphs (Man) 0.0 K/mm3 06/24/21 04:55 Monocytes # (Manual) 0.0 K/mm3 (0.0-0.8) 06/24/21 04:55 Eosinophils # (Manual) 0.0 K/mm3 (0.0-0.4) 06/24/21 04:55 Basophils # (Manual) 0.0 K/mm3 (0.0-0.1) 06/24/21 04:55 Metamyelocytes # 0.0 K/mm3 06/24/21 04:55 Myelocytes # 1.5 K/mm3 06/24/21 04:55 Promyelocytes # 0.0 K/mm3 06/24/21 04:55 Blast Cells # 0.0 K/mm3 06/24/21 04:55 WBC Morphology Not Reportable 06/27/21 06:40 Hypersegmented Neuts Not Reportable 06/27/21 06:40 Hyposegmented Neuts Not Reportable 06/27/21 06:40 Hypogranular Neuts Not Reportable 06/27/21 06:40 Smudge Cells Not Reportable 06/27/21 06:40 Toxic Granulation Not Reportable 06/27/21 06:40 Toxic Vacuolation Not Reportable 06/27/21 06:40 Dohle Bodies Not Reportable 06/27/21 06:40 Pelger-Huet Anomaly Not Reportable 06/27/21 06:40 Nba Rods Not Reportable 06/27/21 06:40 Platelet Estimate 30 06/27/21 06:40 Clumped Platelets Not Reportable 06/27/21 06:40 Plt Clumps, EDTA Not Reportable 06/27/21 06:40 Large Platelets 1+ 06/27/21 06:40 Giant Platelets Not Reportable 06/27/21 06:40 Platelet Satelliting Not Reportable 06/27/21 06:40 Plt Morphology Comment Not Reportable 06/27/21 06:40 RBC Morphology Not Reportable 06/27/21 06:40 Dimorphic RBCs Not Reportable 06/27/21 06:40 Polychromasia Not Reportable 06/27/21 06:40 Hypochromasia Not Reportable 06/27/21 06:40 Poikilocytosis Not Reportable 06/27/21 06:40 Anisocytosis Not Reportable 06/27/21 06:40 Microcytosis Not Reportable 06/27/21 06:40 Macrocytosis Not Reportable 06/27/21 06:40 Spherocytes Not Reportable 06/27/21 06:40 Pappenheimer Bodies Not Reportable 06/27/21 06:40 Sickle Cells Not Reportable 06/27/21 06:40 Target Cells Not Reportable 06/27/21 06:40 Tear Drop Cells Not Reportable 06/27/21 06:40 Ovalocytes Not Reportable 06/27/21 06:40 Helmet Cells Not Reportable 06/27/21 06:40 [place] Bodies Not Reportable 06/27/21 06:40 [place] Rings Not Reportable 06/27/21 06:40 Barbie Cells Not Reportable 06/27/21 06:40 Bite Cells Not Reportable 06/27/21 06:40 Crenated Cell Not Reportable 06/27/21 06:40 Elliptocytes 1+ 06/27/21 06:40 Acanthocytes (Spur) Not Reportable 06/27/21 06:40 Rouleaux Not Reportable 06/27/21 06:40 Hemoglobin C Crystals Not Reportable 06/27/21 06:40 Schistocytes Not Reportable 06/27/21 06:40 Malaria parasites Not Reportable 06/27/21 06:40 Luis Bodies Not Reportable 06/27/21 06:40 Hem Pathologist Commnt No 06/27/21 06:40 PT 20.2 Sec. (12.2-14.9) H 06/25/21 09:05 INR 1.68 (0.87-1.13) H 06/25/21 09:05 APTT 26.7 Sec. (24.2-36.6) 06/26/21 10:00 Fibrinogen 328 mg/dl (211-480) 06/26/21 10:00 D-Dimer 1363.54 ng/mlDDU (0-234) H 06/26/21 10:00 ABG pH 7.230 pH Units (7.350-7.450) L 06/27/21 Unknown POC ABG pCO2 62.9 mmHg (32.0-48.0) H 06/27/21 16:30 ABG pCO2 64.0 mm Hg 06/27/21 Unknown POC ABG pO2 111.1 mmHg (83-108) H 06/27/21 16:30 ABG pO2 92.0 mm Hg (80.0-90.0) H 06/27/21 Unknown POC ABG HCO3 23.0 06/27/21 16:30 ABG HCO3 26.2 mmol/L (20.0-26.0) H 06/27/21 Unknown ABG O2 Saturation 96.8 % (95.0-99.0) 06/27/21 Unknown ABG O2 Content 11.1 (0.0-44) 06/27/21 Unknown POC ABG Base Excess -5.9 06/27/21 16:30 ABG Base Excess -1.7 mmol/L (-2.0-3.0) 06/27/21 Unknown ABG Hemoglobin 8.2 gm/dl (12.0-16.0) L 06/27/21 Unknown ABG Oxyhemoglobin 96.6 (94-98) 06/27/21 16:30 ABG Carboxyhemoglobin 1.7 % (0.0-5.0) 06/27/21 Unknown ABG Methemoglobin 0.5 % (0.0-1.5) 06/27/21 Unknown ABG Sodium 130.6 mmol/L (136.0-145.0) L 06/27/21 16:30 ABG Potassium 5.1 mmol/L (3.40-4.50) H 06/27/21 16:30 ABG Chloride 95.0 mmol/L (98-107) L 06/27/21 16:30 ABG Glucose 364 mg/dL (65-95) H 06/27/21 16:30 Oxyhemoglobin 94.6 % (95.0-99.0) L 06/27/21 Unknown Carboxyhemoglobin 0.6 (0.5-1.5) 06/27/21 16:30 FiO2 75 % 06/27/21 Unknown FiO2 % 80.0 06/27/21 16:30 Sodium 133 mmol/L (137-145) L 06/27/21 06:40 Potassium 5.4 mmol/L (3.6-5.0) H 06/27/21 06:40 Chloride 93.4 mmol/L (98-107) L 06/27/21 06:40 Carbon Dioxide 22 mmol/L (22-30) 06/27/21 06:40 Anion Gap 23 mmol/L 06/27/21 06:40 BUN 96 mg/dL (7-17) H 06/27/21 06:40 Creatinine 5.6 mg/dL (0.6-1.2) H 06/27/21 06:40 Estimated GFR 9 ml/min 06/27/21 06:40 BUN/Creatinine Ratio 17 % 06/27/21 06:40 Glucose 388 mg/dL (65-100) H 06/27/21 06:40 POC Glucose 276 mg/dL (70-105) H 06/27/21 17:12 Hemoglobin A1c 9.5 % (4-6) H 06/07/21 19:11 Calcium 8.3 mg/dL (8.4-10.2) L 06/27/21 06:40 Phosphorus 8.70 mg/dL (2.5-4.5) H 06/27/21 06:40 Magnesium 2.30 mg/dL (1.7-2.3) 06/27/21 06:40 Ferritin 1094.0 ng/mL (10.0-200.0) H 06/23/21 Unknown Total Bilirubin 0.40 mg/dL (0.1-1.2) 06/25/21 09:05 AST 17 units/L (5-40) 06/25/21 09:05 ALT 25 units/L (7-56) 06/25/21 09:05 Alkaline Phosphatase 84 units/L (35-129) 06/25/21 09:05 Lactate Dehydrogenase 606 units/L (91-180) H 06/10/21 23:14 Troponin T 0.021 ng/mL (0.00-0.029) 06/08/21 13:49 C-Reactive Protein 4.40 mg/dL (0.00-1.30) H 06/23/21 04:42 Serum Total Protein 7.0 g/dL (6.1-8.1) 06/10/21 23:14 Total Protein 5.1 g/dL (6.3-8.2) L 06/25/21 09:05 Albumin 2.5 g/dL (3.9-5) L 06/25/21 09:05 Albumin/Globulin Ratio 1.0 % 06/25/21 09:05 Frkmi-8-[id number] 0.5 g/dL (0.2-0.3) H 06/10/21 23:14 Konxg-3-Kyhjgjbkj 1.7 g/dL (0.5-0.9) H 06/10/21 23:14 Beta Globulins 0.6 g/dL (0.2-0.5) H 06/10/21 23:14 Gamma Globulins 1.3 g/dL (0.8-1.7) 06/10/21 23:14 Abnorm Protein Band 1 see below 06/10/21 23:14 PEP Interpretation see below H 06/10/21 23:14 Triglycerides 209 mg/dL (2-149) H 06/07/21 19:11 Cholesterol 165 mg/dL (50-199) 06/07/21 19:11 LDL Cholesterol Direct 79 mg/dL (50-130) 06/07/21 19:11 HDL Cholesterol 35 mg/dL (40-59) L 06/07/21 19:11 Cholesterol/HDL Ratio 4.71 % 06/07/21 19:11 Procalcitonin 0.91 ng/mL (<0.15) 06/07/21 19:11 Arterial Blood Glucose 364 mg/dL (65-95) H 06/27/21 16:30 Arterial Blood Ionized Calcium 4.4 mg/dL (4.6-5.3) L 06/27/21 16:30 Urine Color Sole (Yellow) 06/23/21 17:40 Urine Turbidity Cloudy (Clear) 06/23/21 17:40 Urine pH 6.0 (5.0-7.0) 06/23/21 17:40 Ur Specific [place] 1.017 (1.003-1.030) 06/23/21 17:40 Urine Protein >500 mg/dL (Negative) 06/23/21 17:40 Urine Glucose (UA) 50 mg/dL (Negative) 06/23/21 17:40 Urine Ketones Neg mg/dL (Negative) 06/23/21 17:40 Urine Blood Lg (Negative) 06/23/21 17:40 Urine Nitrite Neg (Negative) 06/23/21 17:40 Urine Bilirubin Neg (Negative) 06/23/21 17:40 Urine Urobilinogen < 2.0 mg/dL (<2.0) 06/23/21 17:40 Ur Leukocyte Esterase Mod (Negative) 06/23/21 17:40 Urine WBC (Auto) > 182.0 /HPF (0.0-6.0) H 06/23/21 17:40 Urine RBC (Auto) > 182.0 /HPF (0.0-6.0) 06/23/21 17:40 Urine WBC Clumps 3+ /HPF 06/23/21 17:40 Uric Acid Crystals 1+ 06/23/21 17:40 Urine Mucus Few /HPF 06/23/21 17:40 Random Vancomycin 13.8 ug/mL (0-40.0) 06/26/21 07:00 Coronavirus (PCR) Positive (Negative) A 06/08/21 08:30 Hepatitis A IgM Ab Non-reactive (NonReactive) 06/24/21 15:57 Hep Bs Antigen Nonreactive (Negative) 06/24/21 15:57 Hep B Core IgM Ab Non-reactive (NonReactive) 06/24/21 15:57 Hepatitis C Antibody Non-reactive (NonReactive) 06/24/21 15:57 Blood Type B POSITIVE 06/27/21 12:12 Antibody Screen Negative 06/27/21 12:12 Microbiology: Microbiology 06/22/21 13:07 Tracheal Aspirate Sputum Culture - Final 06/23/21 08:27 Peripheral/Venous Blood Culture - Preliminary NO GROWTH AFTER 4 DAYS 06/23/21 08:27 Peripheral/Venous Blood Culture - Preliminary NO GROWTH AFTER 4 DAYS Roland/IV: Voiding Method Indwelling Catheter Active Medications - Current Medications Current Medications: Generic Name Dose Route Start Last Admin Trade Name Freq PRN Reason Stop Dose Admin Acetaminophen 650 mg 06/07/21 21:41 06/24/21 11:45 Acetaminophen 325 Mg Tab PO 650 mg Q4H PRN Administration Pain MILD(1-3)/Fever >100.5/MARTÍNEZ Albumin Human 25 gm 06/24/21 14:55 06/27/21 17:47 Albumin Human 25% (25 Gm/100 Ml) Inj IV 25 gm KORINA PRN Administration Hypotension Albuterol 2 mg 06/23/21 09:00 Albuterol 2.5 Mg/3 Ml Nebu IH Q4HRT PRN Shortness Of Breath Lipase/Protease/Amylase 1 each 06/24/21 14:18 Lipase 10,500/Protease 25,000/Amylase 43,750 (Units) Dr Cap FEEDTUBE PRN PRN For Clogged Feeding Tube Ascorbic Acid 500 mg 06/22/21 22:00 06/27/21 09:40 Ascorbic Acid 500 Mg Tab PO 500 mg BID LEONOR Administration Atorvastatin Calcium 10 mg 06/08/21 10:00 06/27/21 11:57 Atorvastatin 10 Mg Tab PO 10 mg DAILY LEONOR Administration Dextrose 50 ml 06/08/21 12:04 06/20/21 12:16 Dextrose 50% In Water (25gm) 50 Ml Syringe IV 50 ml Q30MIN PRN Administration Hypoglycemia Protocol Docusate Sodium 100 mg 06/23/21 09:00 Docusate Sodium 100 Mg/10 Ml Oral Liqd PO BID PRN Constipation Famotidine 10 mg 06/22/21 22:00 06/27/21 09:40 Famotidine 20 Mg/2 Ml Inj IV 10 mg BID LEONOR Administration Fentanyl 50 mcg 06/22/21 13:07 06/27/21 05:26 Fentanyl 100 Mcg/2 Ml Inj IV 50 mcg Q10MIN PRN Administration ANALGESIA Hydrophilic Ointment 1 applic 06/22/21 13:07 Lip Therapy Vaseline TP Q2HR PRN Dry Lips Fentanyl Citrate 2,000 mcg in 100 mls @ 8.2 mls/hr 06/22/21 14:00 06/27/21 15:35 Fentanyl Drip Premix IV 2 mcg/kg/hr TITR LEONOR 16.4 mls/hr Administration Protocol 1 MCG/KG/HR NORepinephrine/NS 8 MG-250 ML 8 mg in 250 mls @ 3.75 mls/hr 06/22/21 15:00 06/27/21 16:35 Norepinephrine/Ns 8 Mg-250 Ml (Double Conc) IV 0 mcg/min TITRATE LEONOR 0 mls/hr Titration Protocol 2 MCG/MIN Cefepime HCl 2 gm in 100 mls @ 200 mls/hr 06/23/21 08:00 06/27/21 08:19 Cefepime/Ns 2 Gm/100 Ml IV 06/29/21 08:29 200 mls/hr Q24H LEONOR Administration Protocol Vasopressin 20 unit/ Sodium 101 mls @ 9.09 mls/hr 06/23/21 09:00 06/25/21 16:25 Chloride IV 0 units/min TITR LEONOR 0 mls/hr Titration Protocol 0.03 UNITS/MIN Sodium Chloride 500 mls @ 1 mls/hr 06/23/21 11:19 Nacl 0.9% 500 Ml IV DIRECT PRN ARTERIAL LINE FLUSH Lacosamide 100 mg/ Sodium 110 mls @ 100 mls/hr 06/23/21 15:00 06/27/21 14:11 Chloride IV 100 mls/hr Q12H LEONOR Administration Sodium Chloride 100 mls @ 999 mls/hr 06/25/21 06:00 Nacl 0.9% IV KORINA PRN Hypotension Sodium Chloride 100 mls @ 999 mls/hr 06/25/21 14:13 Nacl 0.9% IV KORINA PRN Hypotension Amiodarone HCl 900 mg/ 500 mls @ 0 mls/hr 06/27/21 07:00 06/27/21 13:57 Dextrose IV 0.5 mls/hr DIRECT LEONOR Infusion Protocol Per Protocol Sodium Chloride 500 mls @ 0 mls/hr 06/27/21 11:42 Nacl 0.9% 500 Ml IV 06/28/21 11:41 ONCE NR As Directed Insulin Human Isoph/Insulin Regular 25 unit 06/27/21 09:00 06/27/21 13:57 Insulin Nph/Regular 70/30 Inj SUB-Q 25 unit TIDDIAB LEONOR Administration Insulin Human Regular 0 units 06/22/21 18:00 06/27/21 11:56 Insulin Regular, Human 100 Units/1 Ml SUB-Q 8 units Q6HR LEONOR Administration Protocol Levothyroxine Sodium 137.5 mcg 06/23/21 06:00 06/27/21 05:41 Levothyroxine 100 Mcg Inj IV 137.5 mcg DAILY@0600 LEONOR Administration Methylprednisolone Sodium Succinate 100 mg 06/28/21 08:00 Methylprednisolone Sod Succinate 125 Mg/2 Ml Inj IV Q12H LEONOR Metoclopramide HCl 5 mg 06/27/21 14:00 06/27/21 13:56 Metoclopramide 10 Mg/2 Ml Inj IV 06/29/21 13:59 5 mg Q8HR LEONOR Administration Midazolam HCl 5 mg 06/26/21 16:00 Midazolam 5 Mg/5 Ml Inj Mdv IV 07/06/21 23:59 PRN NR Midodrine 10 mg 06/22/21 15:00 06/27/21 14:11 Midodrine 5 Mg Tab PO 10 mg Q8H LEONOR Administration Multi-Ingred Cream/Lotion/Oil/Oint 1 applic 06/22/21 13:07 Mineral Oil/Petrolatum, White Ophth Oint 3.5 Gm OU Q4HR PRN Dry Eye(s) Ondansetron HCl 4 mg 06/07/21 21:41 06/20/21 22:15 Ondansetron 4 Mg/2 Ml Inj IV 4 mg Q8H PRN Administration Nausea And Vomiting Polyethylene Glycol 17 gm 06/27/21 13:16 Polyethylene Glycol 3350 17 Gm Powder PO QDAY PRN Constipation Senna/Docusate Sodium 1 tab 06/22/21 22:00 06/27/21 09:40 Sennosides/Docusate Sodium 8.6/50 Mg Tab FEEDTUBE 1 tab BID LEONOR Administration Simple Syrup 15 ml 06/24/21 14:18 Simple Syrup 15 Ml FEEDTUBE PRN PRN Hypoglycemia Simple Syrup 30 ml 06/24/21 14:18 Simple Syrup 15 Ml FEEDTUBE PRN PRN Hypoglycemia Sodium Bicarbonate 325 mg 06/24/21 14:18 Sodium Bicarbonate 325 Mg Tab FEEDTUBE PRN PRN For Clogged Feeding Tube Sodium Chloride 10 ml 06/07/21 22:00 06/27/21 09:42 Sodium Chloride 0.9% 10 Ml Flush Syringe IV 10 ml BID LEONOR Administration Sodium Chloride 10 ml 06/07/21 21:41 Sodium Chloride 0.9% 10 Ml Flush Syringe IV PRN PRN LINE FLUSH Zinc Sulfate 220 mg 06/22/21 22:00 06/27/21 09:40 Zinc Sulfate 220 Mg Cap PO 220 mg BID LEONOR Administration Nutrition/Malnutrition Assess - Dietary Evaluation Nutrition/Malnutrition Findings: Nutrition Notes Start: 06/08/21 10:56 Freq: Status: Active Protocol: Document 06/24/21 14:03 GB (Rec: 06/24/21 14:18 GB [id number]) Nutrition Notes Initial or Follow up Reassessment Current Diagnosis Acute Kidney Injury,Diabetes Other Pertinent Diagnosis Pneumonia/COVID-19, hypothyroidism. Current Diet Tube feeding - Nepro Labs/Tests 06/24: K 6, BUN 86 decline, creatinine 5.4 decline, glucose 309 decline (poc showing improvement), Ca 6.5, P 7.6. Pertinent Medications Vit C, D5 PRN, fentanyl citrate, Height 5 ft 11 in Weight 164 kg [place] Body Weight (kg) 70.45 BMI 50.4 Weight change and time frame Weight is stable x2 weeks Weight Status Morbidly Obese Subjective/Other Information MD would like TF to be Nepro. Okay to change. RD updating orders. Percent of energy/protein needs met: Prescribed Tube feeding diet will provide 75-100% for energy/protein needs. Burn Absent Trauma Absent GI Symptoms None Difficulty In Swallowing,Chewing Food Allergy Yes Current % PO Other Minimum of two criteria No physical signs of malnutrition #1 Nutrition Diagnosis Inadequate energy intake Comments: Transient poor acceptance of food and neglible PO intake as reported in Nurse notes Etiology COVID=19/pneumonia As Evidenced by Signs and Symptoms Fair tolerance to food, intake of meals between 0-25%. Diagnosis Progress(for reassessment Continues documentation) Is patient on ventilator? Yes Is Patient Ambulatory and/or Out of Bed No REE-([facility]-confined to bed) 2771.148 Kcal/Kg value to use for calculation 13 Approximate Energy Requirements Using 2132 kcal/Kg Calculation Used for Recommendations Kcal/kg Additional Notes Protein: up to 0.7 g/Kg/day @ 164kg; 114 g/day Fluids: 1.0 ml/Kcal, or as per MD. Nutrition Intervention Change Diet Order: NPO continue Nutrition Support: Nepro @ 50ml/hr Flush; 150ml every 4 hrs. or as per MD. Kcal 2,160 Protein (gm) 97 Fat (gm) 115 Fluid (mL) 872 Goal #1 Maintain body weight within +/ -3% of actual BWt during LOS. Goal #2 Tolerate TF at goal rate of 50ml/hr during LOS Goal #3 Nutritional related labs to improve toward acceptable ranges during LOS. Follow-Up By: 06/28/21 Additional Comments Nepro at goal 50ml/hr. Flush 150/4hr. Total fluids daily 1772ml.
[2021-06-27 21:30] LABS: ABG Base Excess -0.2 mmol/L (-2.0-3.0); ABG HCO3 27.6 mmol/L (20.0-26.0); ABG Methemoglobin 0.5 % (0.0-1.5); ABG Oxygen Saturation 85.3 % (95.0-99.0); ABG PCO2 63.4 mm Hg; ABG PH 7.257 pH Units (7.350-7.450)
[2021-06-28] MEDS: INSULIN REGULAR, HUMAN 100 UNITS/1 ML SUB-Q SCH ×4 (00:48→18:43)
[2021-06-28] MEDS: fentaNYL DRIP Premix 2,000 MCG/100 ML BAG IV SCH ×7 (01:16→23:24)
[2021-06-28] MEDS: LACOSAMIDE 100 MG in SODIUM CHLORIDE 0.9% 100 ML IV SCH ×2 (04:11→15:50)
[2021-06-28] MEDS: AMIODARONE 900 MG in DEXTROSE 5% IN WATER 482 ML IV SCH (05:00)
[2021-06-28] MEDS: LEVOTHYROXINE 100 MCG INJ IV SCH (05:04)
[2021-06-28] MEDS: METOCLOPRAMIDE 10 MG/2 ML INJ IV SCH ×3 (05:04→21:19)
[2021-06-28 05:21] LABS: Basophils % (Auto) 0.1 % (0.0-1.8); Hematocrit 30.4 % (30.3-42.9); Hemoglobin 9.9 gm/dl (10.1-14.3); Lymphocytes # (Auto) 0.9 K/mm3 (1.2-5.4); Lymphocytes % (Auto) 7.6 % (13.4-35.0); Mean Corpuscular HGB Conc 32 % (30-34); Mean Corpuscular Volume 88 fl (79-97); Monocytes # (Auto) 0.7 K/mm3 (0.0-0.8); Monocytes % (Auto) 5.6 % (0.0-7.3); Red Blood Count 3.44 M/mm3 (3.65-5.03); Red Cell Distribution Width 15.7 % (13.2-15.2)
[2021-06-28 05:27] LABS: INR 1.27 (0.87-1.13)
[2021-06-28 05:32] LABS: Platelet Count 36 K/mm3 (140-440)
[2021-06-28 05:37] LABS: Calcium 8.4 mg/dL (8.4-10.2)
[2021-06-28] MEDS: fentaNYL 100 MCG/2 ML INJ IV PRN ×2 (08:17→18:43)
[2021-06-28] MEDS: MIDODRINE 5 MG TAB PO SCH ×3 (08:24→22:08)
[2021-06-28] MEDS ORDERED: SODIUM CHLORIDE 0.9% 500 ML 500 ML IV SCH (09:00)
[2021-06-28] MEDS ORDERED: dilTIAZem 25 MG/5 ML INJ IV STA (09:59)
[2021-06-28] MEDS: CEFEPIME/NS 2 GM/100 ML 2 GM/100 ML BAG IV SCH (10:28)
--- NOTE | 2021-06-28 10:29 | Electrocardiograph Report ---
[facility] Test Date: 2021-06-27 Test Time: 05:45:21 Pat Name: MANOHAR STOKES Department: Room: A262 1 Gender: F Hoof Trimmer: LUIS ANTONIO : 1960 Requested By: MARINA GARVEY Order Number: [id number] Reading MD: Miky Robin Measurements Intervals [place] Rate: 116 P: [place]: QRS: -41 QRSD: 104 T: 104 QT: 307 QTc: 430 Interpretive Statements Atrial fibrillation Ventricular premature complex LVH with secondary repolarization abnormality PRWP Compared to ECG 06/23/2021 12:14:47 Ventricular premature complex(es) now present Sinus tachycardia no longer present Left anterior fascicular block no longer present Myocardial infarct finding no longer present Electronically Signed On 06-28-2021 10:29:36 EDT by Miky Robin
[2021-06-28] MEDS: methylPREDNISolone Sod Succinate 125 MG/2 ML INJ IV SCH ×2 (10:32→21:15)
[2021-06-28] MEDS: FAMOTIDINE 20 MG/2 ML INJ IV SCH ×2 (10:32→21:20)
[2021-06-28] MEDS: ASCORBIC ACID 500 MG TAB PO SCH ×2 (10:33→21:21)
[2021-06-28] MEDS: ZINC SULFATE 220 MG CAP PO SCH ×2 (10:33→21:21)
[2021-06-28] MEDS: SENNOSIDES/DOCUSATE SODIUM 8.6/50 MG TAB FEEDTUBE SCH ×2 (10:33→21:21)
[2021-06-28] MEDS: dilTIAZem/D5W 100 MG/100 ML BAG IV SCH ×2 (10:37→23:33)
[2021-06-28] MEDS: INSULIN NPH/REGULAR 70/30 INJ SUB-Q SCH ×3 (10:37→19:28)
[2021-06-28] MEDS ORDERED: SODIUM BICARBONATE 325 MG TAB FEEDTUBE PRN (12:15)
[2021-06-28] MEDS ORDERED: SIMPLE SYRUP 15 ML FEEDTUBE PRN ×2 (12:15)
[2021-06-28] MEDS ORDERED: LIPASE 10,500/PROTEASE 25,000/AMYLASE 43,750 (UNITS) DR CAP FEEDTUBE PRN (12:15)
--- NOTE | 2021-06-28 12:20 | Progress Note ---
Assessment and Plan Patient is a 61 y/o female with a PMHx of HTN, hypothyroidism, CKD III, H/o DVT Acute hypoxic Respiratory failure Sepsis Breakthrough COVID PNA * Patient vaccinated with Memo and Memo * Patient intubated * COVID PCR positive * ID following * Pulmonlogy following Afib w/RVR Elevated troponins * Troponins minimally elevated and trending down 0.043->0.031. In setting of Sepsis secondary to PNA * Lexiscan MPI stress -11/03/2019-EF (30-39%), Stress/ECG changes are normal. This study suggests an intermediate risk for cardiovascular event and is associated with a cardiac mortality of 1-3% per year. There is a moderate defect of moderate intensity present in the basal anterior and mid anterior location. The defect is non-reversible (fixed). There is a moderate defect of moderate intensity present in the basal anteroseptal and mid anteroseptal location. The defect is non-reversible (fixed). There is a moderate defect of moderate intensity present in the apex location. The defect is non-reversible (fixed). * Echo 06/07/2021-EF 50 to 55%, right ventricle not well visualized, right ventricle systolic function is normal, left atrium is normal in size, right atrium is not well visualized, pulmonic valve not well visualized. * Telemetry reviewed: afib 110s. * Currently on amio gtt TREMAINE * Nephrology following Thrombocytopenia * Hem/Onc following Plan: Agree with holding anticoagulation due to thrombocytopenia. Patient with Afib RVR and HTN. Stop amio gtt. Initiate cardizem bolus and cardizem gtt. Titrate for HR and BP control Patient seen in conjunction with Dr. Sam who agrees with this plan of care. Will continue to follow - Patient Problems (1) Acute respiratory failure with hypoxia Current Visit: Yes Status: Acute (2) Acute kidney injury superimposed on CKD Current Visit: No Status: Acute (3) Elevated troponin Current Visit: No Status: Acute (4) History of DVT (deep vein thrombosis) Current Visit: No Status: Acute (5) Diabetes mellitus type 2, insulin dependent Current Visit: No Status: Chronic (6) Hypothyroidism Current Visit: No Status: Chronic (7) Morbid obesity Current Visit: No Status: Chronic (8) TREMAINE (acute kidney injury) Current Visit: Yes Status: Acute (9) Pneumonia due to COVID-19 virus Current Visit: Yes Status: Acute (10) Leukocytosis (leucocytosis) Current Visit: No Status: Acute Qualifiers: Leukocytosis type: bandemia Qualified Code(s): D72.825 - Bandemia Subjective Date of service: 06/28/21 Principal diagnosis: ARDS; Pneumonia; COVID-19 virus infection; TREMAINE; DM II; Morbid obesity Interval history: Patient intubated and sedated afib 110s on monitor Objective Vital Signs Temp Pulse Pulse Resp BP Pulse Ox Pulse Ox 06/28/21 12:00 110 H 30 H 109/53 93 06/28/21 11:45 116 H 30 H 112/63 93 06/28/21 11:31 125 H 30 H 150/75 89 06/28/21 11:15 116 H 30 H 131/74 91 06/28/21 11:11 98.4 F 118 H 30 H 130/67 90 06/28/21 11:01 121 H 29 H 130/67 88 06/28/21 10:45 117 H 30 H 168/90 89 06/28/21 10:37 125 H 168/90 06/28/21 10:30 128 H 20 168/90 87 06/28/21 10:15 113 H 27 H 167/87 87 06/28/21 10:01 121 H 21 166/85 88 06/28/21 09:45 126 H 18 160/73 86 06/28/21 09:30 116 H 18 160/73 92 06/28/21 09:15 116 H 30 H 151/64 94 06/28/21 09:01 111 H 30 H 150/74 91 06/28/21 08:45 116 H 30 H 156/74 90 06/28/21 08:32 115 H 141/94 90 06/28/21 08:31 118 H 30 H 133/86 96 06/28/21 08:15 123 H 30 H 191/96 85 06/28/21 08:00 121 H 24 180/85 89 06/28/21 07:45 118 H 26 H 179/74 85 06/28/21 07:33 97.6 F 06/28/21 07:30 114 H 30 H 169/79 87 06/28/21 07:15 119 H 29 H 156/80 82 L 06/28/21 07:01 115 H 26 H 168/81 88 06/28/21 06:01 121 H 15 183/90 86 06/28/21 05:01 118 H 17 167/101 90 06/28/21 04:14 119 H 142/94 93 06/28/21 04:00 97.5 F L 101 H 110 H 29 H 122/75 97 06/28/21 03:01 107 H 30 H 109/68 97 06/28/21 02:00 86 30 H 104/54 96 06/28/21 01:00 92 H 29 H 115/55 95 06/28/21 00:34 109 H 150/65 95 06/28/21 00:00 114 H 112 H 22 118/94 91 06/27/21 23:00 115 H 21 141/80 95 06/27/21 22:43 110 H 18 117/69 95 06/27/21 22:29 111 H 133/70 95 06/27/21 22:00 108 H 30 H 125/68 93 06/27/21 21:00 111 H 30 H 178/89 93 06/27/21 20:00 93 H 93 H 29 H 107/55 92 06/27/21 19:30 98.0 F 108 H 30 H 105/65 98 06/27/21 19:00 117 H 29 H 105/65 98 06/27/21 18:45 119 H 109/61 06/27/21 18:30 108 H 110/59 06/27/21 18:15 117 H 106/58 06/27/21 18:00 122 H 29 H 99/47 92 06/27/21 17:45 118 H 94/63 06/27/21 17:35 97.5 F L 06/27/21 17:30 115 H 92/62 06/27/21 17:15 113 H 103/64 06/27/21 17:00 116 H 30 H 110/74 90 06/27/21 16:45 106 H 133/69 06/27/21 16:35 102 H 168/75 06/27/21 16:30 94 H 83/48 06/27/21 16:20 98.0 F 117 H 26 H 97/58 99 94 06/27/21 16:00 101 H 106 H 25 H 105/60 92 06/27/21 15:01 90 25 H 93/59 98 06/27/21 14:00 86 23 107/56 98 06/27/21 13:00 91 H 25 H 93/63 96 - Physical Examination General: Other (intubated and sedated) HEENT: Positive: PERRL Neck: Positive: trachea midline Cardiac: Positive: irregularly irregular Lungs: Positive: Ventilated Respirations Neuro: Positive: Other (intubated and sedated) Abdomen: Positive: Soft, Active Bowel Sounds Skin: Negative: Rash, Suspicious Lesions, Ulceration Extremities: Present: upper extr. pulses, lower extr. pulses. Absent: edema - Labs and Meds Coagulation 06/28/21 Range/Units 04:25 PT 16.5 H (12.2-14.9) Sec. INR 1.27 H (0.87-1.13) CBC 06/28/21 Range/Units 04:25 WBC 11.6 H (4.5-11.0) K/mm3 RBC 3.44 L (3.65-5.03) M/mm3 Hgb 9.9 L (10.1-14.3) gm/dl Hct 30.4 (30.3-42.9) % Plt Count 36 L (140-440) K/mm3 Lymph # (Auto) 0.9 L (1.2-5.4) K/mm3 [place] # (Auto) 0.7 (0.0-0.8) K/mm3 Eos # (Auto) 0.0 (0.0-0.4) K/mm3 Baso # (Auto) 0.0 (0.0-0.1) K/mm3 Comprehensive Metabolic Panel 06/28/21 Range/Units 04:25 Sodium 136 L (137-145) mmol/L Potassium 4.7 (3.6-5.0) mmol/L Chloride 96.0 L (98-107) mmol/L Carbon Dioxide 23 (22-30) mmol/L BUN 79 H (7-17) mg/dL Creatinine 4.8 H (0.6-1.2) mg/dL Glucose 301 H (65-100) mg/dL Calcium 8.4 (8.4-10.2) mg/dL - Imaging and Cardiology EKG: report reviewed Echo: report reviewed - EKG Sinus rhythms and dysrhythmias: sinus rhythm - Allied health notes Allied health notes reviewed: nursing
--- NOTE | 2021-06-28 12:53 | Progress Note ---
Assessment and Plan Cultures: SARS CoV2 PCR: positive 06/08/2021 blood culture: No growth Urine culture: skin ade. A/P: 76-year-old female with diabetes, hypertension, history of liver abscess, Klebsiella bacteremia admitted with fever, chills, shortness of breath: #Bilateral pneumonia: secondary to COVID-19. Unvaccinated. Chest x-ray revealed bilateral patchy multifocal pneumonia, CT chest, abdomen pelvis revealed no pulmonary embolism, showed bilateral pneumonia, no acute abnormality in the abdomen or pelvis. #Acute hypoxic respiratory failure: on the vent #DM #HTN #Thrombocytopenia #TREMAINE: Reanlly dose medications Recs: Currently on high-dose methylprednisone Completed Remdesivir prophylactic anticoagulation based on d-dimer per hospital protocol Stopped vancomcyin given negative blood cultures. Complete 7 days cefepime trend ferritin, d-dimer, CRP every 2-3 days Radha Butler MD [facility] ([facility] O: [phone] F: [phone] Subjective Date of service: 06/28/21 Principal diagnosis: ARDS; Pneumonia; COVID-19 virus infection; TREMAINE; DM II; Morbid obesity Interval history: Afebrile, white count 11.6 which is approximately stable. Remains on the vent. Objective - Exam Narrative Exam: Physical exam deferred to reduce risk of transmission of COVID-19. Please refer to primary team's note. - Constitutional Vitals: Vital Signs Temp Pulse Resp BP Pulse Ox 98.4 F 110 H 30 H 139/112 92 06/28/21 11:11 06/28/21 12:30 06/28/21 12:30 06/28/21 12:32 06/28/21 12:32 Temperature -Last 24 Hours Temperature 98.4 F Temperature 97.6 F Temperature 97.5 F Temperature 98.0 F Temperature 97.5 F Temperature 98.0 F - Labs CBC & Chem 7: 06/28/21 04:25 06/28/21 04:25 Labs: Abnormal lab results 06/27/21 06/27/21 06/27/21 Range/Units 16:30 17:12 21:00 WBC (4.5-11.0) K/mm3 RBC (3.65-5.03) M/mm3 Hgb (10.1-14.3) gm/dl RDW (13.2-15.2) % Plt Count (140-440) K/mm3 Lymph % (Auto) (13.4-35.0) % Lymph # (Auto) (1.2-5.4) K/mm3 Seg Neutrophils % (40.0-70.0) % Seg Neutrophils # (1.8-7.7) K/mm3 PT (12.2-14.9) Sec. INR (0.87-1.13) ABG pH 7.180 L 7.283 L (7.320-7.450) POC ABG pCO2 62.9 H 60.1 H (32.0-48.0) mmHg POC ABG pO2 111.1 H (83-108) mmHg ABG pO2 (80.0-90.0) mm Hg ABG HCO3 (20.0-26.0) mmol/L ABG O2 Saturation (95.0-99.0) % ABG Hemoglobin 10.7 L 10.4 L (12.0-17.5) ABG Sodium 130.6 L 135.7 L (136.0-145.0) mmol/L ABG Potassium 5.1 H (3.40-4.50) mmol/L ABG Chloride 95.0 L 97.0 L (98-107) mmol/L ABG Glucose 364 H 309 H (65-95) mg/dL Oxyhemoglobin (95.0-99.0) % Sodium (137-145) mmol/L Chloride (98-107) mmol/L BUN (7-17) mg/dL Creatinine (0.6-1.2) mg/dL Glucose (65-100) mg/dL POC Glucose 276 H (70-105) mg/dL Phosphorus (2.5-4.5) mg/dL Arterial Blood Glucose 364 H 309 H (65-95) mg/dL Arterial Blood Ionized Calcium 4.4 L (4.6-5.3) mg/dL 06/27/21 06/27/21 06/28/21 Range/Units 21:16 23:15 04:25 WBC 11.6 H (4.5-11.0) K/mm3 RBC 3.44 L (3.65-5.03) M/mm3 Hgb 9.9 L (10.1-14.3) gm/dl RDW 15.7 H (13.2-15.2) % Plt Count 36 L (140-440) K/mm3 Lymph % (Auto) 7.6 L (13.4-35.0) % Lymph # (Auto) 0.9 L (1.2-5.4) K/mm3 Seg Neutrophils % 86.7 H (40.0-70.0) % Seg Neutrophils # 10.0 H (1.8-7.7) K/mm3 PT (12.2-14.9) Sec. INR (0.87-1.13) ABG pH 7.257 L (7.320-7.450) POC ABG pCO2 (32.0-48.0) mmHg POC ABG pO2 (83-108) mmHg ABG pO2 55.0 L (80.0-90.0) mm Hg ABG HCO3 27.6 H (20.0-26.0) mmol/L ABG O2 Saturation 85.3 L (95.0-99.0) % ABG Hemoglobin 9.8 L (12.0-17.5) ABG Sodium (136.0-145.0) mmol/L ABG Potassium (3.40-4.50) mmol/L ABG Chloride (98-107) mmol/L ABG Glucose (65-95) mg/dL Oxyhemoglobin 83.3 L (95.0-99.0) % Sodium (137-145) mmol/L Chloride (98-107) mmol/L BUN (7-17) mg/dL Creatinine (0.6-1.2) mg/dL Glucose (65-100) mg/dL POC Glucose 265 H (70-105) mg/dL Phosphorus (2.5-4.5) mg/dL Arterial Blood Glucose (65-95) mg/dL Arterial Blood Ionized Calcium (4.6-5.3) mg/dL 06/28/21 06/28/21 06/28/21 Range/Units 04:25 04:25 05:35 WBC (4.5-11.0) K/mm3 RBC (3.65-5.03) M/mm3 Hgb (10.1-14.3) gm/dl RDW (13.2-15.2) % Plt Count (140-440) K/mm3 Lymph % (Auto) (13.4-35.0) % Lymph # (Auto) (1.2-5.4) K/mm3 Seg Neutrophils % (40.0-70.0) % Seg Neutrophils # (1.8-7.7) K/mm3 PT 16.5 H (12.2-14.9) Sec. INR 1.27 H (0.87-1.13) ABG pH (7.320-7.450) POC ABG pCO2 (32.0-48.0) mmHg POC ABG pO2 (83-108) mmHg ABG pO2 (80.0-90.0) mm Hg ABG HCO3 (20.0-26.0) mmol/L ABG O2 Saturation (95.0-99.0) % ABG Hemoglobin (12.0-17.5) ABG Sodium (136.0-145.0) mmol/L ABG Potassium (3.40-4.50) mmol/L ABG Chloride (98-107) mmol/L ABG Glucose (65-95) mg/dL Oxyhemoglobin (95.0-99.0) % Sodium 136 L (137-145) mmol/L Chloride 96.0 L (98-107) mmol/L BUN 79 H (7-17) mg/dL Creatinine 4.8 H (0.6-1.2) mg/dL Glucose 301 H (65-100) mg/dL POC Glucose 256 H (70-105) mg/dL Phosphorus 6.80 H D (2.5-4.5) mg/dL Arterial Blood Glucose (65-95) mg/dL Arterial Blood Ionized Calcium (4.6-5.3) mg/dL 06/28/21 Range/Units 12:22 WBC (4.5-11.0) K/mm3 RBC (3.65-5.03) M/mm3 Hgb (10.1-14.3) gm/dl RDW (13.2-15.2) % Plt Count (140-440) K/mm3 Lymph % (Auto) (13.4-35.0) % Lymph # (Auto) (1.2-5.4) K/mm3 Seg Neutrophils % (40.0-70.0) % Seg Neutrophils # (1.8-7.7) K/mm3 PT (12.2-14.9) Sec. INR (0.87-1.13) ABG pH (7.320-7.450) POC ABG pCO2 (32.0-48.0) mmHg POC ABG pO2 (83-108) mmHg ABG pO2 (80.0-90.0) mm Hg ABG HCO3 (20.0-26.0) mmol/L ABG O2 Saturation (95.0-99.0) % ABG Hemoglobin (12.0-17.5) ABG Sodium (136.0-145.0) mmol/L ABG Potassium (3.40-4.50) mmol/L ABG Chloride (98-107) mmol/L ABG Glucose (65-95) mg/dL Oxyhemoglobin (95.0-99.0) % Sodium (137-145) mmol/L Chloride (98-107) mmol/L BUN (7-17) mg/dL Creatinine (0.6-1.2) mg/dL Glucose (65-100) mg/dL POC Glucose 255 H (70-105) mg/dL Phosphorus (2.5-4.5) mg/dL Arterial Blood Glucose (65-95) mg/dL Arterial Blood Ionized Calcium (4.6-5.3) mg/dL
--- NOTE | 2021-06-28 15:14 | Progress Note ---
Assessment and Plan Acute hypoxemic respiratory failure (ARDS) Coronavirus infection Pneumonia due to COVID-19 virus Acute kidney injury superimposed on CKD Hypertension Diabetes mellitus type 2, insulin dependent Hypothyroidism Morbid obesity - continue Amiodarone; adjust per cardiology - repeat ABG at 9 pm and address - continue current vent settings and compensatory hyperventilation - follow HIT assay - continue HD/UF per nephrology prescription for toxin and volume clearance - continue care as below otherwise; - continue Keppra 500 mg IV q12h - follow EEG - neurology evaluation ongoing - continue to wean vaspressors for target MAP > 65 mmHg - continue daily SAT and SBT assessment as tolerated - continue to wean supplemental oxygen for target O2 sat's > 90% acutely - VAP bundle addressed - continue lung protective strategies - continue bronchodilators with pulmonary hygiene per RT - wean per pulmonary driven protocols otherwise - azotemia per nephrology recommendations - avoid nephrotoxins, renally dose all medications - continue to avoid benzodiazepine's, reduce the possibility of delirium - anti-infective's per ID rec's - prn analgesia per CPOT score - Maintenance of sleep-wake cycle, avoid delirium - enteral nutritional support at goal rate as tolerated - G.I. & VTE prophylaxis - PT/OT/ROM exercises - mobility protocols for pressure ulcer prophylaxis - Monitor hemodynamics closely - continue other care per attending / other consultants - discharge planning ongoing concurrently COVID SPECIFIC INTERVENTIONS - Remdesivir as per ID/Pulmonary developed protocols (not a candidate) - continue systemic steroids for severe COVID-19 infection empirically (will taper to 60 mg IV q8h) - follow repeat COVID tests results - zinc and vitamin C supplementation - Monitor inflammatory markers per facility protocol - ferritin, Ddimer, CRP - therapeutic anticoagulation per system Protocol based on d-dimer and clinical considerations - Continue contact and airborne isolation .... Re-evaluate in am & prn CONDITION: CRITICAL PROGNOSIS: GUARDED CODE STATUS: FULL CODE The high probability of a clinically significant, sudden or life-threatening deterioration of the [respiratory, cardiovascular, renal & neurologic] system(s) required my full and direct attention, intervention and personal management. The aggregate critical care time was [32] minutes without overlap. Time includes spent on; [x] Data Review and interpretation [x] Patient assessment and monitoring of vital signs [x] Documentation [x] Medication orders and management Subjective Date of service: 06/28/21 Principal diagnosis: ARDS; Pneumonia; COVID-19 virus infection; TREMAINE; DM II; Morbid obesity Interval history: Patient is seen today for: Acute hypoxemic respiratory failure (ARDS); Pneumonia; COVID-19 virus infection; TREMAINE on CKD; DM II; Morbid obesity Seen and examined at bedside; 24hour events reviewed; nursing and respiratory care staff consulted; no adverse overnight events reported to me; resting in bed; AMS is persistent; recurrent A-fib RVR and now on Amiodarone drip; no emesis or overt aspiration; no gross bleeding; remains with thrombocytopenia and HIT assay pending Objective Vital Signs - 12hr 06/28/21 06/28/21 06/28/21 04:00 04:14 05:01 Temperature 97.5 F L Pulse Rate 101 H 119 H 118 H Pulse Rate [ 110 H From Monitor] Respiratory 29 H 17 Rate Blood Pressure 122/75 142/94 167/101 O2 Sat by Pulse 97 93 90 Oximetry 06/28/21 06/28/21 06/28/21 06:01 07:01 07:15 Temperature Pulse Rate 121 H 115 H 119 H Pulse Rate [ From Monitor] Respiratory 15 26 H 29 H Rate Blood Pressure 183/90 168/81 156/80 O2 Sat by Pulse 86 88 82 L Oximetry 06/28/21 06/28/21 06/28/21 07:30 07:33 07:45 Temperature 97.6 F Pulse Rate 114 H 118 H Pulse Rate [ From Monitor] Respiratory 30 H 26 H Rate Blood Pressure 169/79 179/74 O2 Sat by Pulse 87 85 Oximetry 06/28/21 06/28/21 06/28/21 08:00 08:15 08:31 Temperature Pulse Rate 121 H 123 H 118 H Pulse Rate [ From Monitor] Respiratory 24 30 H 30 H Rate Blood Pressure 180/85 191/96 133/86 O2 Sat by Pulse 89 85 96 Oximetry 06/28/21 06/28/21 06/28/21 08:32 08:45 09:01 Temperature Pulse Rate 115 H 116 H 111 H Pulse Rate [ From Monitor] Respiratory 30 H 30 H Rate Blood Pressure 141/94 156/74 150/74 O2 Sat by Pulse 90 90 91 Oximetry 06/28/21 06/28/21 06/28/21 09:15 09:30 09:45 Temperature Pulse Rate 116 H 116 H 126 H Pulse Rate [ From Monitor] Respiratory 30 H 18 18 Rate Blood Pressure 151/64 160/73 160/73 O2 Sat by Pulse 94 92 86 Oximetry 06/28/21 06/28/21 06/28/21 10:01 10:15 10:30 Temperature Pulse Rate 121 H 113 H 128 H Pulse Rate [ From Monitor] Respiratory 21 27 H 20 Rate Blood Pressure 166/85 167/87 168/90 O2 Sat by Pulse 88 87 87 Oximetry 06/28/21 06/28/21 06/28/21 10:37 10:45 11:01 Temperature Pulse Rate 125 H 117 H 121 H Pulse Rate [ From Monitor] Respiratory 30 H 29 H Rate Blood Pressure 168/90 168/90 130/67 O2 Sat by Pulse 89 88 Oximetry 06/28/21 06/28/21 06/28/21 11:11 11:15 11:31 Temperature 98.4 F Pulse Rate 118 H 116 H 125 H Pulse Rate [ From Monitor] Respiratory 30 H 30 H 30 H Rate Blood Pressure 130/67 131/74 150/75 O2 Sat by Pulse 90 91 89 Oximetry 06/28/21 06/28/21 06/28/21 11:45 12:00 12:15 Temperature Pulse Rate 116 H 110 H 111 H Pulse Rate [ From Monitor] Respiratory 30 H 30 H 30 H Rate Blood Pressure 112/63 109/53 98/57 O2 Sat by Pulse 93 93 93 Oximetry 06/28/21 06/28/21 06/28/21 12:30 12:32 12:45 Temperature Pulse Rate 110 H 106 H Pulse Rate [ From Monitor] Respiratory 30 H 30 H Rate Blood Pressure 110/45 139/112 102/63 O2 Sat by Pulse 94 92 94 Oximetry 06/28/21 06/28/21 13:00 13:15 Temperature Pulse Rate 109 H 89 Pulse Rate [ From Monitor] Respiratory 30 H 30 H Rate Blood Pressure 112/55 107/61 O2 Sat by Pulse 95 95 Oximetry Constitutional: appears uncomfortable, other (Morbidly Obese female with mildly increased work of breathing on MVS) Eyes: non-icteric ENT: oropharynx moist, other (ETT 24 cm SHEREEN) Neck: supple, no lymphadenopathy, other (large neck circumference) Effort: mildly labored Ascultation: Bilateral: diminished breath sounds, rhonchi Percussion: Bilateral: not dull Cardiovascular: regular rate and rhythm Gastrointestinal: normoactive bowel sounds, soft, non-tender, non-distended (protuberant) Integumentary: rash (stasis dermatitis- type) Extremities: no cyanosis, no edema, pulses normal, no ischemia or petechiae Neurologic: non-focal exam (grossly), pupils equal and round, unable to assess Psychiatric: other (unable to assess re: AMS) CBC and BMP: 06/29/21 04:34 06/29/21 04:34 ABG, PT/INR, D-dimer: ABG ABG pH 7.230 pH Units (7.350-7.450) L 06/27/21 Unknown POC ABG pCO2 60.1 mmHg (32.0-48.0) H 06/27/21 21:00 ABG pCO2 64.0 mm Hg 06/27/21 Unknown POC ABG pO2 83.2 mmHg (83-108) 06/27/21 21:00 ABG pO2 92.0 mm Hg (80.0-90.0) H 06/27/21 Unknown POC ABG HCO3 27.8 06/27/21 21:00 ABG O2 Saturation 96.8 % (95.0-99.0) 06/27/21 Unknown PT/INR, D-dimer PT 16.5 Sec. (12.2-14.9) H 06/28/21 04:25 INR 1.27 (0.87-1.13) H 06/28/21 04:25 D-Dimer 1363.54 ng/mlDDU (0-234) H 06/26/21 10:00 Abnormal lab findings: Abnormal Labs 06/07/21 06/07/21 06/07/21 19:11 19:11 19:11 WBC 11.5 H RBC Hgb Hct RDW Plt Count Lymph % (Auto) 6.5 L Lymph # (Auto) 0.8 L Seg Neutrophils % 89.9 H Seg Neuts % (Manual) Lymphocytes % (Manual) Nucleated RBC % Seg Neutrophils # 10.4 H Seg Neutrophils # Man Lymphocytes # (Manual) Monocytes # (Manual) PT INR APTT D-Dimer 5334.05 H ABG pH POC ABG pCO2 POC ABG pO2 ABG pO2 ABG HCO3 ABG O2 Saturation ABG Base Excess ABG Hemoglobin ABG Oxyhemoglobin ABG Methemoglobin ABG Sodium ABG Potassium ABG Chloride ABG Glucose Oxyhemoglobin Carboxyhemoglobin Sodium Potassium Chloride Carbon Dioxide BUN 67 H Creatinine 4.8 H Glucose 244 H POC Glucose Hemoglobin A1c Calcium Phosphorus Magnesium Ferritin Lactate Dehydrogenase 796 H Troponin T 0.043 H C-Reactive Protein 19.60 H Total Protein 8.4 H Albumin 3.1 L Qanxb-0-Jvpwxbtvd Umztu-3-Ndvfcbsej Beta Globulins PEP Interpretation Triglycerides 209 H HDL Cholesterol 35 L Arterial Blood Glucose Arterial Blood Ionized Calcium Urine WBC (Auto) Coronavirus (PCR) 06/07/21 06/07/21 06/08/21 19:11 19:11 03:04 WBC RBC Hgb Hct RDW Plt Count Lymph % (Auto) Lymph # (Auto) Seg Neutrophils % Seg Neuts % (Manual) Lymphocytes % (Manual) Nucleated RBC % Seg Neutrophils # Seg Neutrophils # Man Lymphocytes # (Manual) Monocytes # (Manual) PT INR APTT D-Dimer ABG pH POC ABG pCO2 POC ABG pO2 ABG pO2 ABG HCO3 ABG O2 Saturation ABG Base Excess ABG Hemoglobin ABG Oxyhemoglobin ABG Methemoglobin ABG Sodium ABG Potassium ABG Chloride ABG Glucose Oxyhemoglobin Carboxyhemoglobin Sodium Potassium Chloride Carbon Dioxide BUN Creatinine Glucose POC Glucose Hemoglobin A1c 9.5 H Calcium Phosphorus Magnesium Ferritin 1230.0 H Lactate Dehydrogenase Troponin T 0.031 H D C-Reactive Protein Total Protein Albumin Qzaeg-0-Ppbmrtwyq Zefuu-7-Qzfwvhbwj Beta Globulins PEP Interpretation Triglycerides HDL Cholesterol Arterial Blood Glucose Arterial Blood Ionized Calcium Urine WBC (Auto) Coronavirus (PCR) 06/08/21 06/08/21 06/08/21 03:44 03:44 08:21 WBC 12.9 H RBC Hgb Hct RDW Plt Count Lymph % (Auto) Lymph # (Auto) Seg Neutrophils % Seg Neuts % (Manual) 95.0 H Lymphocytes % (Manual) 3.0 L Nucleated RBC % Seg Neutrophils # Seg Neutrophils # Man 12.3 H Lymphocytes # (Manual) 0.4 L Monocytes # (Manual) PT INR APTT D-Dimer ABG pH POC ABG pCO2 POC ABG pO2 ABG pO2 ABG HCO3 ABG O2 Saturation ABG Base Excess ABG Hemoglobin ABG Oxyhemoglobin ABG Methemoglobin ABG Sodium ABG Potassium ABG Chloride ABG Glucose Oxyhemoglobin Carboxyhemoglobin Sodium Potassium Chloride Carbon Dioxide 20 L D BUN 68 H Creatinine 4.7 H Glucose 218 H POC Glucose 273 H Hemoglobin A1c Calcium Phosphorus Magnesium Ferritin Lactate Dehydrogenase Troponin T C-Reactive Protein Total Protein Albumin 3.4 L Mqpmw-7-Mpdotaqyd Obdnz-7-Qgwldzpuy Beta Globulins PEP Interpretation Triglycerides HDL Cholesterol Arterial Blood Glucose Arterial Blood Ionized Calcium Urine WBC (Auto) Coronavirus (PCR) 06/08/21 06/08/21 06/08/21 08:30 11:00 17:29 WBC RBC Hgb Hct RDW Plt Count Lymph % (Auto) Lymph # (Auto) Seg Neutrophils % Seg Neuts % (Manual) Lymphocytes % (Manual) Nucleated RBC % Seg Neutrophils # Seg Neutrophils # Man Lymphocytes # (Manual) Monocytes # (Manual) PT INR APTT D-Dimer ABG pH POC ABG pCO2 POC ABG pO2 ABG pO2 ABG HCO3 ABG O2 Saturation ABG Base Excess ABG Hemoglobin ABG Oxyhemoglobin ABG Methemoglobin ABG Sodium ABG Potassium ABG Chloride ABG Glucose Oxyhemoglobin Carboxyhemoglobin Sodium Potassium Chloride Carbon Dioxide BUN Creatinine Glucose POC Glucose 239 H 220 H Hemoglobin A1c Calcium Phosphorus Magnesium Ferritin Lactate Dehydrogenase Troponin T C-Reactive Protein Total Protein Albumin Yvemu-2-Ydqtteuda Didxw-2-Wswcwrerg Beta Globulins PEP Interpretation Triglycerides HDL Cholesterol Arterial Blood Glucose Arterial Blood Ionized Calcium Urine WBC (Auto) Coronavirus (PCR) Positive A 06/08/21 06/09/21 06/09/21 21:09 08:07 08:42 WBC 14.7 H RBC 5.28 H Hgb 14.9 H Hct 45.0 H D RDW Plt Count Lymph % (Auto) 4.9 L Lymph # (Auto) 0.7 L Seg Neutrophils % 90.0 H Seg Neuts % (Manual) Lymphocytes % (Manual) Nucleated RBC % Seg Neutrophils # 13.2 H Seg Neutrophils # Man Lymphocytes # (Manual) Monocytes # (Manual) PT INR APTT D-Dimer ABG pH POC ABG pCO2 POC ABG pO2 ABG pO2 ABG HCO3 ABG O2 Saturation ABG Base Excess ABG Hemoglobin ABG Oxyhemoglobin ABG Methemoglobin ABG Sodium ABG Potassium ABG Chloride ABG Glucose Oxyhemoglobin Carboxyhemoglobin Sodium Potassium Chloride Carbon Dioxide BUN Creatinine Glucose POC Glucose 242 H 230 H Hemoglobin A1c Calcium Phosphorus Magnesium Ferritin Lactate Dehydrogenase Troponin T C-Reactive Protein Total Protein Albumin Tqoik-1-Wvgqpsfmm Pydnz-2-Cplctzyxo Beta Globulins PEP Interpretation Triglycerides HDL Cholesterol Arterial Blood Glucose Arterial Blood Ionized Calcium Urine WBC (Auto) Coronavirus (PCR) 06/09/21 06/09/21 06/09/21 08:42 12:05 12:19 WBC RBC Hgb Hct RDW Plt Count Lymph % (Auto) Lymph # (Auto) Seg Neutrophils % Seg Neuts % (Manual) Lymphocytes % (Manual) Nucleated RBC % Seg Neutrophils # Seg Neutrophils # Man Lymphocytes # (Manual) Monocytes # (Manual) PT INR APTT D-Dimer ABG pH POC ABG pCO2 POC ABG pO2 71.4 L ABG pO2 ABG HCO3 ABG O2 Saturation ABG Base Excess ABG Hemoglobin ABG Oxyhemoglobin 92.9 L ABG Methemoglobin ABG Sodium ABG Potassium ABG Chloride 109.0 H ABG Glucose 287 H Oxyhemoglobin Carboxyhemoglobin 0.4 L Sodium Potassium Chloride Carbon Dioxide 17 L BUN 74 H Creatinine 3.7 H Glucose 259 H POC Glucose 274 H Hemoglobin A1c Calcium 8.3 L Phosphorus Magnesium Ferritin Lactate Dehydrogenase Troponin T C-Reactive Protein Total Protein Albumin Ybluo-0-Uhdxeaoxp Wjiff-2-Cevctjisy Beta Globulins PEP Interpretation Triglycerides HDL Cholesterol Arterial Blood Glucose 287 H Arterial Blood Ionized Calcium Urine WBC (Auto) Coronavirus (PCR) 06/09/21 06/09/21 06/10/21 16:59 21:06 08:25 WBC RBC Hgb Hct RDW Plt Count Lymph % (Auto) Lymph # (Auto) Seg Neutrophils % Seg Neuts % (Manual) Lymphocytes % (Manual) Nucleated RBC % Seg Neutrophils # Seg Neutrophils # Man Lymphocytes # (Manual) Monocytes # (Manual) PT INR APTT D-Dimer ABG pH POC ABG pCO2 POC ABG pO2 ABG pO2 ABG HCO3 ABG O2 Saturation ABG Base Excess ABG Hemoglobin ABG Oxyhemoglobin ABG Methemoglobin ABG Sodium ABG Potassium ABG Chloride ABG Glucose Oxyhemoglobin Carboxyhemoglobin Sodium Potassium Chloride Carbon Dioxide BUN Creatinine Glucose POC Glucose 268 H 263 H 280 H Hemoglobin A1c Calcium Phosphorus Magnesium Ferritin Lactate Dehydrogenase Troponin T C-Reactive Protein Total Protein Albumin Bivvt-7-Qvriqtapz Ouund-8-Olhjjbkmi Beta Globulins PEP Interpretation Triglycerides HDL Cholesterol Arterial Blood Glucose Arterial Blood Ionized Calcium Urine WBC (Auto) Coronavirus (PCR) 06/10/21 06/10/21 06/10/21 12:07 15:38 21:04 WBC RBC Hgb Hct RDW Plt Count Lymph % (Auto) Lymph # (Auto) Seg Neutrophils % Seg Neuts % (Manual) Lymphocytes % (Manual) Nucleated RBC % Seg Neutrophils # Seg Neutrophils # Man Lymphocytes # (Manual) Monocytes # (Manual) PT INR APTT D-Dimer ABG pH POC ABG pCO2 POC ABG pO2 ABG pO2 ABG HCO3 ABG O2 Saturation ABG Base Excess ABG Hemoglobin ABG Oxyhemoglobin ABG Methemoglobin ABG Sodium ABG Potassium ABG Chloride ABG Glucose Oxyhemoglobin Carboxyhemoglobin Sodium Potassium Chloride Carbon Dioxide BUN Creatinine Glucose POC Glucose 247 H 269 H 195 H Hemoglobin A1c Calcium Phosphorus Magnesium Ferritin Lactate Dehydrogenase Troponin T C-Reactive Protein Total Protein Albumin Tkjjp-7-Vmvancihy Gxzid-7-Yykqbilpf Beta Globulins PEP Interpretation Triglycerides HDL Cholesterol Arterial Blood Glucose Arterial Blood Ionized Calcium Urine WBC (Auto) Coronavirus (PCR) 06/10/21 06/10/21 06/10/21 23:14 23:14 23:14 WBC RBC Hgb Hct RDW 15.3 H Plt Count Lymph % (Auto) Lymph # (Auto) Seg Neutrophils % Seg Neuts % (Manual) 93.0 H Lymphocytes % (Manual) 2.0 L Nucleated RBC % 3.0 H Seg Neutrophils # Seg Neutrophils # Man 10.2 H Lymphocytes # (Manual) 0.2 L Monocytes # (Manual) PT INR APTT D-Dimer ABG pH POC ABG pCO2 POC ABG pO2 ABG pO2 ABG HCO3 ABG O2 Saturation ABG Base Excess ABG Hemoglobin ABG Oxyhemoglobin ABG Methemoglobin ABG Sodium ABG Potassium ABG Chloride ABG Glucose Oxyhemoglobin Carboxyhemoglobin Sodium 148 H D Potassium Chloride 111.7 H Carbon Dioxide 20 L BUN 70 H Creatinine 3.2 H Glucose 186 H POC Glucose Hemoglobin A1c Calcium Phosphorus Magnesium Ferritin Lactate Dehydrogenase Troponin T C-Reactive Protein Total Protein Albumin 2.6 L Uzwvm-1-Cmttzlunq 0.5 H Aughu-2-Ocmytyebh 1.7 H Beta Globulins 0.6 H PEP Interpretation see below H Triglycerides HDL Cholesterol Arterial Blood Glucose Arterial Blood Ionized Calcium Urine WBC (Auto) Coronavirus (PCR) 06/10/21 06/10/21 06/10/21 23:14 23:14 23:14 WBC RBC Hgb Hct RDW Plt Count Lymph % (Auto) Lymph # (Auto) Seg Neutrophils % Seg Neuts % (Manual) Lymphocytes % (Manual) Nucleated RBC % Seg Neutrophils # Seg Neutrophils # Man Lymphocytes # (Manual) Monocytes # (Manual) PT INR APTT D-Dimer > 43617 H ABG pH POC ABG pCO2 POC ABG pO2 ABG pO2 ABG HCO3 ABG O2 Saturation ABG Base Excess ABG Hemoglobin ABG Oxyhemoglobin ABG Methemoglobin ABG Sodium ABG Potassium ABG Chloride ABG Glucose Oxyhemoglobin Carboxyhemoglobin Sodium Potassium Chloride Carbon Dioxide BUN Creatinine Glucose POC Glucose Hemoglobin A1c Calcium Phosphorus Magnesium 2.50 H Ferritin 1319.0 H Lactate Dehydrogenase 606 H Troponin T C-Reactive Protein Total Protein Albumin Nties-3-Hzzlwwntm Fnszc-5-Pkkrnmaic Beta Globulins PEP Interpretation Triglycerides HDL Cholesterol Arterial Blood Glucose Arterial Blood Ionized Calcium Urine WBC (Auto) Coronavirus (PCR) 06/11/21 06/11/21 06/11/21 07:34 10:57 10:57 WBC RBC Hgb Hct RDW Plt Count Lymph % (Auto) Lymph # (Auto) Seg Neutrophils % Seg Neuts % (Manual) Lymphocytes % (Manual) Nucleated RBC % Seg Neutrophils # Seg Neutrophils # Man Lymphocytes # (Manual) Monocytes # (Manual) PT INR APTT D-Dimer > 90841 H ABG pH POC ABG pCO2 POC ABG pO2 ABG pO2 ABG HCO3 ABG O2 Saturation ABG Base Excess ABG Hemoglobin ABG Oxyhemoglobin ABG Methemoglobin ABG Sodium ABG Potassium ABG Chloride ABG Glucose Oxyhemoglobin Carboxyhemoglobin Sodium Potassium Chloride Carbon Dioxide BUN Creatinine Glucose POC Glucose 169 H Hemoglobin A1c Calcium Phosphorus Magnesium Ferritin 1300.0 H Lactate Dehydrogenase Troponin T C-Reactive Protein Total Protein Albumin Tcziq-5-Bmugvxpbv Fzosy-3-Qkunnbcvd Beta Globulins PEP Interpretation Triglycerides HDL Cholesterol Arterial Blood Glucose Arterial Blood Ionized Calcium Urine WBC (Auto) Coronavirus (PCR) 06/11/21 06/11/21 06/11/21 10:58 10:58 11:49 WBC 11.3 H RBC Hgb Hct RDW 15.3 H Plt Count Lymph % (Auto) Lymph # (Auto) Seg Neutrophils % Seg Neuts % (Manual) 88.0 H Lymphocytes % (Manual) 6.0 L Nucleated RBC % Seg Neutrophils # Seg Neutrophils # Man 9.9 H Lymphocytes # (Manual) 0.7 L Monocytes # (Manual) PT INR APTT D-Dimer ABG pH POC ABG pCO2 POC ABG pO2 ABG pO2 ABG HCO3 ABG O2 Saturation ABG Base Excess ABG Hemoglobin ABG Oxyhemoglobin ABG Methemoglobin ABG Sodium ABG Potassium ABG Chloride ABG Glucose Oxyhemoglobin Carboxyhemoglobin Sodium 150 H Potassium 3.4 L Chloride 114.8 H Carbon Dioxide 21 L BUN 65 H Creatinine 2.9 H Glucose 180 H POC Glucose 191 H Hemoglobin A1c Calcium Phosphorus Magnesium 2.50 H Ferritin Lactate Dehydrogenase Troponin T C-Reactive Protein 1.90 H Total Protein Albumin Eehvc-1-Wvcuwkxxd Gyolx-1-Bvvbtmisr Beta Globulins PEP Interpretation Triglycerides HDL Cholesterol Arterial Blood Glucose Arterial Blood Ionized Calcium Urine WBC (Auto) Coronavirus (PCR) 06/11/21 06/11/21 06/12/21 15:49 21:16 04:22 WBC RBC Hgb Hct RDW Plt Count Lymph % (Auto) Lymph # (Auto) Seg Neutrophils % Seg Neuts % (Manual) Lymphocytes % (Manual) Nucleated RBC % Seg Neutrophils # Seg Neutrophils # Man Lymphocytes # (Manual) Monocytes # (Manual) PT INR APTT D-Dimer ABG pH 7.318 L POC ABG pCO2 POC ABG pO2 ABG pO2 51.5 L ABG HCO3 ABG O2 Saturation 86.9 L ABG Base Excess -5.6 L ABG Hemoglobin ABG Oxyhemoglobin ABG Methemoglobin ABG Sodium ABG Potassium ABG Chloride ABG Glucose Oxyhemoglobin 85.5 L Carboxyhemoglobin Sodium Potassium Chloride Carbon Dioxide BUN Creatinine Glucose POC Glucose 185 H 200 H Hemoglobin A1c Calcium Phosphorus Magnesium Ferritin Lactate Dehydrogenase Troponin T C-Reactive Protein Total Protein Albumin Vudcm-8-Pgfzmentx Gkzgg-6-Lrjmaaxap Beta Globulins PEP Interpretation Triglycerides HDL Cholesterol Arterial Blood Glucose Arterial Blood Ionized Calcium Urine WBC (Auto) Coronavirus (PCR) 06/12/21 06/12/21 06/12/21 07:41 08:31 08:31 WBC 12.4 H RBC Hgb Hct RDW 15.3 H Plt Count Lymph % (Auto) 8.5 L Lymph # (Auto) 1.1 L Seg Neutrophils % 88.1 H Seg Neuts % (Manual) Lymphocytes % (Manual) Nucleated RBC % Seg Neutrophils # 10.9 H Seg Neutrophils # Man Lymphocytes # (Manual) Monocytes # (Manual) PT INR APTT D-Dimer ABG pH POC ABG pCO2 POC ABG pO2 ABG pO2 ABG HCO3 ABG O2 Saturation ABG Base Excess ABG Hemoglobin ABG Oxyhemoglobin ABG Methemoglobin ABG Sodium ABG Potassium ABG Chloride ABG Glucose Oxyhemoglobin Carboxyhemoglobin Sodium 151 H Potassium Chloride 117.3 H Carbon Dioxide 21 L BUN 61 H Creatinine 2.5 H Glucose 165 H POC Glucose 165 H Hemoglobin A1c Calcium 8.3 L Phosphorus Magnesium Ferritin Lactate Dehydrogenase Troponin T C-Reactive Protein Total Protein Albumin Lfvhr-3-Gvjkvleci Elbep-0-Kngyvelco Beta Globulins PEP Interpretation Triglycerides HDL Cholesterol Arterial Blood Glucose Arterial Blood Ionized Calcium Urine WBC (Auto) Coronavirus (PCR) 06/12/21 06/12/21 06/12/21 08:31 10:32 15:47 WBC RBC Hgb Hct RDW Plt Count Lymph % (Auto) Lymph # (Auto) Seg Neutrophils % Seg Neuts % (Manual) Lymphocytes % (Manual) Nucleated RBC % Seg Neutrophils # Seg Neutrophils # Man Lymphocytes # (Manual) Monocytes # (Manual) PT INR APTT D-Dimer ABG pH POC ABG pCO2 POC ABG pO2 ABG pO2 ABG HCO3 ABG O2 Saturation ABG Base Excess ABG Hemoglobin ABG Oxyhemoglobin ABG Methemoglobin ABG Sodium ABG Potassium ABG Chloride ABG Glucose Oxyhemoglobin Carboxyhemoglobin Sodium Potassium Chloride Carbon Dioxide BUN Creatinine Glucose POC Glucose 156 H 176 H Hemoglobin A1c Calcium Phosphorus Magnesium 2.50 H Ferritin Lactate Dehydrogenase Troponin T C-Reactive Protein Total Protein Albumin Bkvre-0-Cstdqpxac Jvnbh-8-Iiooahfem Beta Globulins PEP Interpretation Triglycerides HDL Cholesterol Arterial Blood Glucose Arterial Blood Ionized Calcium Urine WBC (Auto) Coronavirus (PCR) 06/12/21 06/13/21 06/13/21 21:50 07:42 07:42 WBC 14.1 H RBC Hgb Hct RDW 15.3 H Plt Count Lymph % (Auto) Lymph # (Auto) Seg Neutrophils % Seg Neuts % (Manual) 87.0 H Lymphocytes % (Manual) 7.0 L Nucleated RBC % 3.0 H Seg Neutrophils # Seg Neutrophils # Man 12.3 H Lymphocytes # (Manual) 1.0 L Monocytes # (Manual) PT INR APTT D-Dimer ABG pH POC ABG pCO2 POC ABG pO2 ABG pO2 ABG HCO3 ABG O2 Saturation ABG Base Excess ABG Hemoglobin ABG Oxyhemoglobin ABG Methemoglobin ABG Sodium ABG Potassium ABG Chloride ABG Glucose Oxyhemoglobin Carboxyhemoglobin Sodium 151 H Potassium 3.5 L Chloride 116.0 H Carbon Dioxide BUN 61 H Creatinine 2.3 H Glucose 135 H POC Glucose 165 H Hemoglobin A1c Calcium Phosphorus Magnesium 2.50 H Ferritin Lactate Dehydrogenase Troponin T C-Reactive Protein Total Protein Albumin Qqohw-7-Gligdabid Njhos-9-Wzdswzrqt Beta Globulins PEP Interpretation Triglycerides HDL Cholesterol Arterial Blood Glucose Arterial Blood Ionized Calcium Urine WBC (Auto) Coronavirus (PCR) 06/13/21 06/13/21 06/13/21 08:10 11:10 18:15 WBC RBC Hgb Hct RDW Plt Count Lymph % (Auto) Lymph # (Auto) Seg Neutrophils % Seg Neuts % (Manual) Lymphocytes % (Manual) Nucleated RBC % Seg Neutrophils # Seg Neutrophils # Man Lymphocytes # (Manual) Monocytes # (Manual) PT INR APTT D-Dimer ABG pH POC ABG pCO2 POC ABG pO2 ABG pO2 ABG HCO3 ABG O2 Saturation ABG Base Excess ABG Hemoglobin ABG Oxyhemoglobin ABG Methemoglobin ABG Sodium ABG Potassium ABG Chloride ABG Glucose Oxyhemoglobin Carboxyhemoglobin Sodium Potassium Chloride Carbon Dioxide BUN Creatinine Glucose POC Glucose 118 H 139 H 179 H Hemoglobin A1c Calcium Phosphorus Magnesium Ferritin Lactate Dehydrogenase Troponin T C-Reactive Protein Total Protein Albumin Iaaml-9-Vxvezeify Bidgl-8-Lzsamhwvr Beta Globulins PEP Interpretation Triglycerides HDL Cholesterol Arterial Blood Glucose Arterial Blood Ionized Calcium Urine WBC (Auto) Coronavirus (PCR) 06/13/21 06/13/21 06/14/21 21:54 23:27 04:42 WBC 12.8 H RBC Hgb Hct RDW 15.3 H Plt Count Lymph % (Auto) Lymph # (Auto) Seg Neutrophils % Seg Neuts % (Manual) 92.0 H Lymphocytes % (Manual) 1.0 L Nucleated RBC % 2.0 H Seg Neutrophils # Seg Neutrophils # Man 11.8 H Lymphocytes # (Manual) 0.1 L Monocytes # (Manual) PT INR APTT D-Dimer ABG pH POC ABG pCO2 POC ABG pO2 ABG pO2 ABG HCO3 ABG O2 Saturation ABG Base Excess ABG Hemoglobin ABG Oxyhemoglobin ABG Methemoglobin ABG Sodium ABG Potassium ABG Chloride ABG Glucose Oxyhemoglobin Carboxyhemoglobin Sodium 152 H Potassium Chloride 116.3 H Carbon Dioxide 21 L BUN 67 H Creatinine 2.5 H Glucose 212 H POC Glucose 193 H Hemoglobin A1c Calcium Phosphorus Magnesium Ferritin Lactate Dehydrogenase Troponin T C-Reactive Protein Total Protein Albumin Waoxb-0-Ngwgjsutr Kubsf-8-Ecvledbqv Beta Globulins PEP Interpretation Triglycerides HDL Cholesterol Arterial Blood Glucose Arterial Blood Ionized Calcium Urine WBC (Auto) Coronavirus (PCR) 06/14/21 06/14/21 06/14/21 04:42 04:42 07:33 WBC RBC Hgb Hct RDW Plt Count Lymph % (Auto) Lymph # (Auto) Seg Neutrophils % Seg Neuts % (Manual) Lymphocytes % (Manual) Nucleated RBC % Seg Neutrophils # Seg Neutrophils # Man Lymphocytes # (Manual) Monocytes # (Manual) PT INR APTT D-Dimer ABG pH POC ABG pCO2 POC ABG pO2 ABG pO2 ABG HCO3 ABG O2 Saturation ABG Base Excess ABG Hemoglobin ABG Oxyhemoglobin ABG Methemoglobin ABG Sodium ABG Potassium ABG Chloride ABG Glucose Oxyhemoglobin Carboxyhemoglobin Sodium 152 H Potassium Chloride 115.3 H Carbon Dioxide BUN 68 H Creatinine 2.5 H Glucose 188 H POC Glucose 173 H Hemoglobin A1c Calcium Phosphorus Magnesium 2.40 H Ferritin Lactate Dehydrogenase Troponin T C-Reactive Protein Total Protein Albumin Jjqqa-8-Flaiyimnx Hcpby-2-Phxirfcxz Beta Globulins PEP Interpretation Triglycerides HDL Cholesterol Arterial Blood Glucose Arterial Blood Ionized Calcium Urine WBC (Auto) Coronavirus (PCR) 06/14/21 06/14/21 06/14/21 10:57 15:53 23:40 WBC RBC Hgb Hct RDW Plt Count Lymph % (Auto) Lymph # (Auto) Seg Neutrophils % Seg Neuts % (Manual) Lymphocytes % (Manual) Nucleated RBC % Seg Neutrophils # Seg Neutrophils # Man Lymphocytes # (Manual) Monocytes # (Manual) PT INR APTT D-Dimer ABG pH POC ABG pCO2 POC ABG pO2 ABG pO2 ABG HCO3 ABG O2 Saturation ABG Base Excess ABG Hemoglobin ABG Oxyhemoglobin ABG Methemoglobin ABG Sodium ABG Potassium ABG Chloride ABG Glucose Oxyhemoglobin Carboxyhemoglobin Sodium Potassium Chloride Carbon Dioxide BUN Creatinine Glucose POC Glucose 195 H 226 H 235 H Hemoglobin A1c Calcium Phosphorus Magnesium Ferritin Lactate Dehydrogenase Troponin T C-Reactive Protein Total Protein Albumin Vnugx-1-Kgrhgnnqd Pkuyk-2-Qerkaebxp Beta Globulins PEP Interpretation Triglycerides HDL Cholesterol Arterial Blood Glucose Arterial Blood Ionized Calcium Urine WBC (Auto) Coronavirus (PCR) 06/15/21 06/15/21 06/15/21 07:38 07:38 07:38 WBC 14.3 H RBC Hgb Hct RDW Plt Count Lymph % (Auto) Lymph # (Auto) Seg Neutrophils % Seg Neuts % (Manual) 95.0 H Lymphocytes % (Manual) 1.0 L Nucleated RBC % Seg Neutrophils # Seg Neutrophils # Man 13.6 H Lymphocytes # (Manual) 0.1 L Monocytes # (Manual) PT INR APTT D-Dimer > 34371 H ABG pH POC ABG pCO2 POC ABG pO2 ABG pO2 ABG HCO3 ABG O2 Saturation ABG Base Excess ABG Hemoglobin ABG Oxyhemoglobin ABG Methemoglobin ABG Sodium ABG Potassium ABG Chloride ABG Glucose Oxyhemoglobin Carboxyhemoglobin Sodium 153 H Potassium 3.5 L Chloride 115.9 H Carbon Dioxide BUN 55 H Creatinine 2.1 H Glucose 213 H POC Glucose Hemoglobin A1c Calcium Phosphorus Magnesium Ferritin Lactate Dehydrogenase Troponin T C-Reactive Protein Total Protein Albumin Aelgi-6-Hegftdzwo Jyafu-0-Consjxdag Beta Globulins PEP Interpretation Triglycerides HDL Cholesterol Arterial Blood Glucose Arterial Blood Ionized Calcium Urine WBC (Auto) Coronavirus (PCR) 06/15/21 06/15/21 06/15/21 07:38 09:21 11:46 WBC RBC Hgb Hct RDW Plt Count Lymph % (Auto) Lymph # (Auto) Seg Neutrophils % Seg Neuts % (Manual) Lymphocytes % (Manual) Nucleated RBC % Seg Neutrophils # Seg Neutrophils # Man Lymphocytes # (Manual) Monocytes # (Manual) PT INR APTT D-Dimer ABG pH POC ABG pCO2 POC ABG pO2 ABG pO2 ABG HCO3 ABG O2 Saturation ABG Base Excess ABG Hemoglobin ABG Oxyhemoglobin ABG Methemoglobin ABG Sodium ABG Potassium ABG Chloride ABG Glucose Oxyhemoglobin Carboxyhemoglobin Sodium Potassium Chloride Carbon Dioxide BUN Creatinine Glucose POC Glucose 202 H 233 H Hemoglobin A1c Calcium Phosphorus Magnesium Ferritin 1246.0 H Lactate Dehydrogenase Troponin T C-Reactive Protein Total Protein Albumin Tifcs-0-Mqiuycsja Rioxa-8-Zkicwlpja Beta Globulins PEP Interpretation Triglycerides HDL Cholesterol Arterial Blood Glucose Arterial Blood Ionized Calcium Urine WBC (Auto) Coronavirus (PCR) 06/15/21 06/16/21 06/16/21 17:32 05:44 07:48 WBC RBC Hgb Hct RDW Plt Count Lymph % (Auto) Lymph # (Auto) Seg Neutrophils % Seg Neuts % (Manual) Lymphocytes % (Manual) Nucleated RBC % Seg Neutrophils # Seg Neutrophils # Man Lymphocytes # (Manual) Monocytes # (Manual) PT INR APTT D-Dimer ABG pH POC ABG pCO2 POC ABG pO2 ABG pO2 ABG HCO3 ABG O2 Saturation ABG Base Excess ABG Hemoglobin ABG Oxyhemoglobin ABG Methemoglobin ABG Sodium ABG Potassium ABG Chloride ABG Glucose Oxyhemoglobin Carboxyhemoglobin Sodium 154 H Potassium Chloride 117.2 H Carbon Dioxide BUN 54 H Creatinine 2.0 H Glucose 120 H POC Glucose 179 H 109 H Hemoglobin A1c Calcium Phosphorus Magnesium Ferritin Lactate Dehydrogenase Troponin T C-Reactive Protein Total Protein Albumin Mhzkk-8-Ouakdxiby Siptc-9-Muvzmlzrx Beta Globulins PEP Interpretation Triglycerides HDL Cholesterol Arterial Blood Glucose Arterial Blood Ionized Calcium Urine WBC (Auto) Coronavirus (PCR) 06/16/21 06/16/21 06/16/21 11:13 15:22 21:15 WBC RBC Hgb Hct RDW Plt Count Lymph % (Auto) Lymph # (Auto) Seg Neutrophils % Seg Neuts % (Manual) Lymphocytes % (Manual) Nucleated RBC % Seg Neutrophils # Seg Neutrophils # Man Lymphocytes # (Manual) Monocytes # (Manual) PT INR APTT D-Dimer ABG pH POC ABG pCO2 POC ABG pO2 ABG pO2 ABG HCO3 ABG O2 Saturation ABG Base Excess ABG Hemoglobin ABG Oxyhemoglobin ABG Methemoglobin ABG Sodium ABG Potassium ABG Chloride ABG Glucose Oxyhemoglobin Carboxyhemoglobin Sodium Potassium Chloride Carbon Dioxide BUN Creatinine Glucose POC Glucose 222 H 218 H 250 H Hemoglobin A1c Calcium Phosphorus Magnesium Ferritin Lactate Dehydrogenase Troponin T C-Reactive Protein Total Protein Albumin Dmjru-7-Bkqndcukp Kztsm-5-Zwlxpcdbw Beta Globulins PEP Interpretation Triglycerides HDL Cholesterol Arterial Blood Glucose Arterial Blood Ionized Calcium Urine WBC (Auto) Coronavirus (PCR) 06/17/21 06/17/21 06/17/21 07:55 09:35 09:35 WBC RBC Hgb Hct RDW 15.7 H Plt Count 99 L Lymph % (Auto) Lymph # (Auto) Seg Neutrophils % Seg Neuts % (Manual) Lymphocytes % (Manual) Nucleated RBC % Seg Neutrophils # Seg Neutrophils # Man Lymphocytes # (Manual) Monocytes # (Manual) PT INR APTT D-Dimer ABG pH POC ABG pCO2 POC ABG pO2 ABG pO2 ABG HCO3 ABG O2 Saturation ABG Base Excess ABG Hemoglobin ABG Oxyhemoglobin ABG Methemoglobin ABG Sodium ABG Potassium ABG Chloride ABG Glucose Oxyhemoglobin Carboxyhemoglobin Sodium 148 H Potassium Chloride 113.3 H Carbon Dioxide BUN 45 H Creatinine 1.8 H Glucose 202 H POC Glucose 158 H Hemoglobin A1c Calcium Phosphorus Magnesium Ferritin Lactate Dehydrogenase Troponin T C-Reactive Protein Total Protein 6.0 L Albumin 2.8 L Noweb-1-Eapqvhgmi Mmeai-7-Uxgeorgos Beta Globulins PEP Interpretation Triglycerides HDL Cholesterol Arterial Blood Glucose Arterial Blood Ionized Calcium Urine WBC (Auto) Coronavirus (PCR) 06/17/21 06/17/21 06/18/21 12:32 16:46 06:00 WBC RBC Hgb Hct RDW Plt Count Lymph % (Auto) Lymph # (Auto) Seg Neutrophils % Seg Neuts % (Manual) Lymphocytes % (Manual) Nucleated RBC % Seg Neutrophils # Seg Neutrophils # Man Lymphocytes # (Manual) Monocytes # (Manual) PT INR APTT D-Dimer 9804.08 H ABG pH POC ABG pCO2 POC ABG pO2 ABG pO2 ABG HCO3 ABG O2 Saturation ABG Base Excess ABG Hemoglobin ABG Oxyhemoglobin ABG Methemoglobin ABG Sodium ABG Potassium ABG Chloride ABG Glucose Oxyhemoglobin Carboxyhemoglobin Sodium Potassium Chloride Carbon Dioxide BUN Creatinine Glucose POC Glucose 227 H 203 H Hemoglobin A1c Calcium Phosphorus Magnesium Ferritin Lactate Dehydrogenase Troponin T C-Reactive Protein Total Protein Albumin Ktnge-5-Wruwyimyt Cptjl-0-Khtxergan Beta Globulins PEP Interpretation Triglycerides HDL Cholesterol Arterial Blood Glucose Arterial Blood Ionized Calcium Urine WBC (Auto) Coronavirus (PCR) 06/18/21 06/18/21 06/18/21 06:00 08:00 10:10 WBC RBC Hgb Hct RDW Plt Count Lymph % (Auto) Lymph # (Auto) Seg Neutrophils % Seg Neuts % (Manual) Lymphocytes % (Manual) Nucleated RBC % Seg Neutrophils # Seg Neutrophils # Man Lymphocytes # (Manual) Monocytes # (Manual) PT INR APTT D-Dimer ABG pH POC ABG pCO2 POC ABG pO2 ABG pO2 ABG HCO3 ABG O2 Saturation ABG Base Excess ABG Hemoglobin ABG Oxyhemoglobin ABG Methemoglobin ABG Sodium ABG Potassium ABG Chloride ABG Glucose Oxyhemoglobin Carboxyhemoglobin Sodium Potassium Chloride 110.1 H Carbon Dioxide BUN 39 H Creatinine 1.8 H Glucose 135 H POC Glucose 107 H Hemoglobin A1c Calcium Phosphorus Magnesium Ferritin 904.2 H Lactate Dehydrogenase Troponin T C-Reactive Protein Total Protein Albumin Dygte-8-Wytvyqime Uwygo-0-Jzwhnxqmg Beta Globulins PEP Interpretation Triglycerides HDL Cholesterol Arterial Blood Glucose Arterial Blood Ionized Calcium Urine WBC (Auto) Coronavirus (PCR) 06/18/21 06/18/21 06/18/21 12:06 16:47 21:14 WBC RBC Hgb Hct RDW Plt Count Lymph % (Auto) Lymph # (Auto) Seg Neutrophils % Seg Neuts % (Manual) Lymphocytes % (Manual) Nucleated RBC % Seg Neutrophils # Seg Neutrophils # Man Lymphocytes # (Manual) Monocytes # (Manual) PT INR APTT D-Dimer ABG pH POC ABG pCO2 POC ABG pO2 ABG pO2 ABG HCO3 ABG O2 Saturation ABG Base Excess ABG Hemoglobin ABG Oxyhemoglobin ABG Methemoglobin ABG Sodium ABG Potassium ABG Chloride ABG Glucose Oxyhemoglobin Carboxyhemoglobin Sodium Potassium Chloride Carbon Dioxide BUN Creatinine Glucose POC Glucose 160 H 236 H 186 H Hemoglobin A1c Calcium Phosphorus Magnesium Ferritin Lactate Dehydrogenase Troponin T C-Reactive Protein Total Protein Albumin Lchus-1-Wafdjisao Pxfrz-8-Vlfkcthju Beta Globulins PEP Interpretation Triglycerides HDL Cholesterol Arterial Blood Glucose Arterial Blood Ionized Calcium Urine WBC (Auto) Coronavirus (PCR) 06/19/21 06/19/21 06/20/21 15:46 15:46 08:04 WBC RBC Hgb Hct RDW 15.5 H Plt Count 73 L Lymph % (Auto) Lymph # (Auto) Seg Neutrophils % Seg Neuts % (Manual) Lymphocytes % (Manual) Nucleated RBC % Seg Neutrophils # Seg Neutrophils # Man Lymphocytes # (Manual) Monocytes # (Manual) PT INR APTT D-Dimer ABG pH POC ABG pCO2 POC ABG pO2 ABG pO2 ABG HCO3 ABG O2 Saturation ABG Base Excess ABG Hemoglobin ABG Oxyhemoglobin ABG Methemoglobin ABG Sodium ABG Potassium ABG Chloride ABG Glucose Oxyhemoglobin Carboxyhemoglobin Sodium 146 H Potassium Chloride 108.9 H Carbon Dioxide BUN 38 H Creatinine 1.7 H Glucose POC Glucose 52 L Hemoglobin A1c Calcium Phosphorus Magnesium Ferritin Lactate Dehydrogenase Troponin T C-Reactive Protein Total Protein Albumin Finsg-0-Ddxkwasvn Dynza-8-Tvifpzvhd Beta Globulins PEP Interpretation Triglycerides HDL Cholesterol Arterial Blood Glucose Arterial Blood Ionized Calcium Urine WBC (Auto) Coronavirus (PCR) 06/20/21 06/20/21 06/20/21 11:58 15:16 17:54 WBC RBC Hgb Hct RDW Plt Count Lymph % (Auto) Lymph # (Auto) Seg Neutrophils % Seg Neuts % (Manual) Lymphocytes % (Manual) Nucleated RBC % Seg Neutrophils # Seg Neutrophils # Man Lymphocytes # (Manual) Monocytes # (Manual) PT INR APTT D-Dimer ABG pH POC ABG pCO2 POC ABG pO2 ABG pO2 ABG HCO3 ABG O2 Saturation ABG Base Excess ABG Hemoglobin ABG Oxyhemoglobin ABG Methemoglobin ABG Sodium ABG Potassium ABG Chloride ABG Glucose Oxyhemoglobin Carboxyhemoglobin Sodium 146 H Potassium Chloride 108.2 H Carbon Dioxide BUN 37 H Creatinine 1.7 H Glucose 131 H POC Glucose 58 L 219 H Hemoglobin A1c Calcium Phosphorus Magnesium Ferritin Lactate Dehydrogenase Troponin T C-Reactive Protein Total Protein Albumin Cfeij-9-Kxucfmxoz Dnopi-3-Jkcybrhsw Beta Globulins PEP Interpretation Triglycerides HDL Cholesterol Arterial Blood Glucose Arterial Blood Ionized Calcium Urine WBC (Auto) Coronavirus (PCR) 06/20/21 06/21/21 06/21/21 21:58 06:00 07:41 WBC RBC Hgb Hct RDW Plt Count Lymph % (Auto) Lymph # (Auto) Seg Neutrophils % Seg Neuts % (Manual) Lymphocytes % (Manual) Nucleated RBC % Seg Neutrophils # Seg Neutrophils # Man Lymphocytes # (Manual) Monocytes # (Manual) PT INR APTT D-Dimer ABG pH POC ABG pCO2 POC ABG pO2 ABG pO2 ABG HCO3 ABG O2 Saturation ABG Base Excess ABG Hemoglobin ABG Oxyhemoglobin ABG Methemoglobin ABG Sodium ABG Potassium ABG Chloride ABG Glucose Oxyhemoglobin Carboxyhemoglobin Sodium Potassium Chloride Carbon Dioxide BUN 42 H Creatinine 2.0 H Glucose 225 H POC Glucose 180 H 204 H Hemoglobin A1c Calcium Phosphorus Magnesium Ferritin Lactate Dehydrogenase Troponin T C-Reactive Protein Total Protein Albumin Mukoi-3-Csofckzqb Pjpbd-4-Mbpicuecx Beta Globulins PEP Interpretation Triglycerides HDL Cholesterol Arterial Blood Glucose Arterial Blood Ionized Calcium Urine WBC (Auto) Coronavirus (PCR) 06/21/21 06/21/21 06/21/21 11:01 11:20 15:57 WBC RBC Hgb Hct RDW Plt Count Lymph % (Auto) Lymph # (Auto) Seg Neutrophils % Seg Neuts % (Manual) Lymphocytes % (Manual) Nucleated RBC % Seg Neutrophils # Seg Neutrophils # Man Lymphocytes # (Manual) Monocytes # (Manual) PT INR APTT D-Dimer ABG pH POC ABG pCO2 POC ABG pO2 58.9 L ABG pO2 ABG HCO3 ABG O2 Saturation ABG Base Excess ABG Hemoglobin ABG Oxyhemoglobin 87.4 L ABG Methemoglobin ABG Sodium ABG Potassium ABG Chloride ABG Glucose 212 H Oxyhemoglobin Carboxyhemoglobin Sodium Potassium Chloride Carbon Dioxide BUN Creatinine Glucose POC Glucose 194 H 171 H Hemoglobin A1c Calcium Phosphorus Magnesium Ferritin Lactate Dehydrogenase Troponin T C-Reactive Protein Total Protein Albumin Wlfrg-8-Vulhwgnzh Hbqxw-6-Raepnrcfv Beta Globulins PEP Interpretation Triglycerides HDL Cholesterol Arterial Blood Glucose 212 H Arterial Blood Ionized Calcium 4.5 L Urine WBC (Auto) Coronavirus (PCR) 06/21/21 06/21/21 06/21/21 17:52 17:55 22:09 WBC RBC Hgb Hct RDW Plt Count Lymph % (Auto) Lymph # (Auto) Seg Neutrophils % Seg Neuts % (Manual) Lymphocytes % (Manual) Nucleated RBC % Seg Neutrophils # Seg Neutrophils # Man Lymphocytes # (Manual) Monocytes # (Manual) PT INR APTT D-Dimer ABG pH 7.316 L POC ABG pCO2 51.7 H POC ABG pO2 62.3 L ABG pO2 ABG HCO3 ABG O2 Saturation ABG Base Excess ABG Hemoglobin ABG Oxyhemoglobin 88.7 L ABG Methemoglobin ABG Sodium ABG Potassium ABG Chloride ABG Glucose 197 H Oxyhemoglobin Carboxyhemoglobin Sodium Potassium Chloride Carbon Dioxide BUN Creatinine Glucose POC Glucose 153 H 178 H Hemoglobin A1c Calcium Phosphorus Magnesium Ferritin Lactate Dehydrogenase Troponin T C-Reactive Protein Total Protein Albumin Munrk-5-Mjepnfezb Ytttx-4-Qilcxywjy Beta Globulins PEP Interpretation Triglycerides HDL Cholesterol Arterial Blood Glucose 197 H Arterial Blood Ionized Calcium Urine WBC (Auto) Coronavirus (PCR) 06/22/21 06/22/21 06/22/21 07:30 07:43 11:47 WBC RBC Hgb Hct RDW Plt Count Lymph % (Auto) Lymph # (Auto) Seg Neutrophils % Seg Neuts % (Manual) Lymphocytes % (Manual) Nucleated RBC % Seg Neutrophils # Seg Neutrophils # Man Lymphocytes # (Manual) Monocytes # (Manual) PT INR APTT D-Dimer ABG pH POC ABG pCO2 POC ABG pO2 ABG pO2 ABG HCO3 ABG O2 Saturation ABG Base Excess ABG Hemoglobin ABG Oxyhemoglobin ABG Methemoglobin ABG Sodium ABG Potassium ABG Chloride ABG Glucose Oxyhemoglobin Carboxyhemoglobin Sodium Potassium Chloride Carbon Dioxide 21 L BUN 55 H Creatinine 2.8 H Glucose 219 H POC Glucose 235 H 222 H Hemoglobin A1c Calcium Phosphorus Magnesium Ferritin Lactate Dehydrogenase Troponin T C-Reactive Protein Total Protein Albumin Lvagm-1-Jtvdwvpjn Hgmsr-0-Daimpxnzb Beta Globulins PEP Interpretation Triglycerides HDL Cholesterol Arterial Blood Glucose Arterial Blood Ionized Calcium Urine WBC (Auto) Coronavirus (PCR) 06/22/21 06/22/21 06/22/21 11:50 12:10 15:15 WBC RBC Hgb Hct RDW Plt Count Lymph % (Auto) Lymph # (Auto) Seg Neutrophils % Seg Neuts % (Manual) Lymphocytes % (Manual) Nucleated RBC % Seg Neutrophils # Seg Neutrophils # Man Lymphocytes # (Manual) Monocytes # (Manual) PT INR APTT D-Dimer ABG pH 7.273 L POC ABG pCO2 POC ABG pO2 56.8 L 56.8 L ABG pO2 58.0 L ABG HCO3 ABG O2 Saturation 85.7 L ABG Base Excess -4.9 L ABG Hemoglobin ABG Oxyhemoglobin 86.7 L 86.7 L ABG Methemoglobin ABG Sodium ABG Potassium ABG Chloride ABG Glucose Oxyhemoglobin 84.1 L Carboxyhemoglobin Sodium Potassium Chloride Carbon Dioxide BUN Creatinine Glucose POC Glucose Hemoglobin A1c Calcium Phosphorus Magnesium Ferritin Lactate Dehydrogenase Troponin T C-Reactive Protein Total Protein Albumin Rydpa-8-Sdpwndqvt Dkzhz-7-Dzazzmsee Beta Globulins PEP Interpretation Triglycerides HDL Cholesterol Arterial Blood Glucose Arterial Blood Ionized Calcium Urine WBC (Auto) Coronavirus (PCR) 06/22/21 06/22/21 06/22/21 17:28 21:22 23:35 WBC RBC Hgb Hct RDW Plt Count Lymph % (Auto) Lymph # (Auto) Seg Neutrophils % Seg Neuts % (Manual) Lymphocytes % (Manual) Nucleated RBC % Seg Neutrophils # Seg Neutrophils # Man Lymphocytes # (Manual) Monocytes # (Manual) PT INR APTT D-Dimer ABG pH 7.217 L POC ABG pCO2 POC ABG pO2 ABG pO2 61.7 L ABG HCO3 ABG O2 Saturation 87.3 L ABG Base Excess -6.0 L ABG Hemoglobin ABG Oxyhemoglobin ABG Methemoglobin ABG Sodium ABG Potassium ABG Chloride ABG Glucose Oxyhemoglobin 85.4 L Carboxyhemoglobin Sodium Potassium Chloride Carbon Dioxide BUN Creatinine Glucose POC Glucose 221 H 204 H Hemoglobin A1c Calcium Phosphorus Magnesium Ferritin Lactate Dehydrogenase Troponin T C-Reactive Protein Total Protein Albumin Rolpb-3-Xsgnpexpe Rzhdc-5-Oqwkwegis Beta Globulins PEP Interpretation Triglycerides HDL Cholesterol Arterial Blood Glucose Arterial Blood Ionized Calcium Urine WBC (Auto) Coronavirus (PCR) 06/23/21 06/23/21 06/23/21 04:42 04:42 04:42 WBC 19.0 H RBC 5.04 H Hgb Hct 44.5 H RDW 16.6 H Plt Count 61 L Lymph % (Auto) Lymph # (Auto) Seg Neutrophils % Seg Neuts % (Manual) Lymphocytes % (Manual) 2.0 L Nucleated RBC % 46.0 H Seg Neutrophils # Seg Neutrophils # Man 13.1 H Lymphocytes # (Manual) 0.4 L Monocytes # (Manual) 1.1 H PT INR APTT D-Dimer 6308.27 H ABG pH POC ABG pCO2 POC ABG pO2 ABG pO2 ABG HCO3 ABG O2 Saturation ABG Base Excess ABG Hemoglobin ABG Oxyhemoglobin ABG Methemoglobin ABG Sodium ABG Potassium ABG Chloride ABG Glucose Oxyhemoglobin Carboxyhemoglobin Sodium Potassium 6.3 H* D Chloride Carbon Dioxide 21 L BUN 72 H Creatinine 4.6 H D Glucose 225 H POC Glucose Hemoglobin A1c Calcium 8.0 L Phosphorus Magnesium Ferritin Lactate Dehydrogenase Troponin T C-Reactive Protein Total Protein Albumin Mdawz-0-Ricuqwcdk Yzfka-8-Jmohjqgua Beta Globulins PEP Interpretation Triglycerides HDL Cholesterol Arterial Blood Glucose Arterial Blood Ionized Calcium Urine WBC (Auto) Coronavirus (PCR) 06/23/21 06/23/21 06/23/21 04:42 04:42 05:33 WBC RBC Hgb Hct RDW Plt Count Lymph % (Auto) Lymph # (Auto) Seg Neutrophils % Seg Neuts % (Manual) Lymphocytes % (Manual) Nucleated RBC % Seg Neutrophils # Seg Neutrophils # Man Lymphocytes # (Manual) Monocytes # (Manual) PT INR APTT D-Dimer ABG pH POC ABG pCO2 POC ABG pO2 ABG pO2 ABG HCO3 ABG O2 Saturation ABG Base Excess ABG Hemoglobin ABG Oxyhemoglobin ABG Methemoglobin ABG Sodium ABG Potassium ABG Chloride ABG Glucose Oxyhemoglobin Carboxyhemoglobin Sodium Potassium Chloride Carbon Dioxide BUN Creatinine Glucose POC Glucose 227 H Hemoglobin A1c Calcium 7.9 L Phosphorus 8.30 H Magnesium Ferritin 1496.0 H Lactate Dehydrogenase Troponin T C-Reactive Protein 4.40 H Total Protein Albumin Phbsh-9-Pmtlsocts Ihhxw-4-Cfbxrhlhr Beta Globulins PEP Interpretation Triglycerides HDL Cholesterol Arterial Blood Glucose Arterial Blood Ionized Calcium Urine WBC (Auto) Coronavirus (PCR) 06/23/21 06/23/21 06/23/21 11:00 11:31 17:40 WBC RBC Hgb Hct RDW Plt Count Lymph % (Auto) Lymph # (Auto) Seg Neutrophils % Seg Neuts % (Manual) Lymphocytes % (Manual) Nucleated RBC % Seg Neutrophils # Seg Neutrophils # Man Lymphocytes # (Manual) Monocytes # (Manual) PT INR APTT D-Dimer ABG pH 7.177 L POC ABG pCO2 58.9 H POC ABG pO2 60.2 L ABG pO2 ABG HCO3 ABG O2 Saturation ABG Base Excess ABG Hemoglobin ABG Oxyhemoglobin 83.5 L ABG Methemoglobin 1.8 H ABG Sodium ABG Potassium ABG Chloride ABG Glucose Oxyhemoglobin Carboxyhemoglobin Sodium Potassium Chloride Carbon Dioxide BUN Creatinine Glucose POC Glucose 207 H Hemoglobin A1c Calcium Phosphorus Magnesium Ferritin Lactate Dehydrogenase Troponin T C-Reactive Protein Total Protein Albumin Wskyu-1-Tnhauevif Thscp-5-Fsbjrtjnx Beta Globulins PEP Interpretation Triglycerides HDL Cholesterol Arterial Blood Glucose Arterial Blood Ionized Calcium Urine WBC (Auto) > 182.0 H Coronavirus (PCR) 06/23/21 06/23/21 06/23/21 17:52 21:12 Unknown WBC RBC Hgb Hct RDW Plt Count Lymph % (Auto) Lymph # (Auto) Seg Neutrophils % Seg Neuts % (Manual) Lymphocytes % (Manual) Nucleated RBC % Seg Neutrophils # Seg Neutrophils # Man Lymphocytes # (Manual) Monocytes # (Manual) PT INR APTT D-Dimer 6308 H ABG pH 7.214 L POC ABG pCO2 60.2 H POC ABG pO2 78.9 L ABG pO2 ABG HCO3 ABG O2 Saturation ABG Base Excess ABG Hemoglobin ABG Oxyhemoglobin 93.4 L ABG Methemoglobin ABG Sodium ABG Potassium 6.3 H ABG Chloride ABG Glucose 338 H Oxyhemoglobin Carboxyhemoglobin Sodium Potassium Chloride Carbon Dioxide BUN Creatinine Glucose POC Glucose 232 H Hemoglobin A1c Calcium Phosphorus Magnesium Ferritin Lactate Dehydrogenase Troponin T C-Reactive Protein Total Protein Albumin Hbdxx-8-Tqkznqaqg Edits-9-Uxmcjnooz Beta Globulins PEP Interpretation Triglycerides HDL Cholesterol Arterial Blood Glucose 338 H Arterial Blood Ionized Calcium 4.1 L Urine WBC (Auto) Coronavirus (PCR) 06/23/21 06/23/21 06/23/21 Unknown Unknown Unknown WBC RBC Hgb Hct RDW Plt Count Lymph % (Auto) Lymph # (Auto) Seg Neutrophils % Seg Neuts % (Manual) Lymphocytes % (Manual) Nucleated RBC % Seg Neutrophils # Seg Neutrophils # Man Lymphocytes # (Manual) Monocytes # (Manual) PT 24.6 H INR 2.18 H APTT 43.8 H D-Dimer ABG pH POC ABG pCO2 POC ABG pO2 ABG pO2 ABG HCO3 ABG O2 Saturation ABG Base Excess ABG Hemoglobin ABG Oxyhemoglobin ABG Methemoglobin ABG Sodium ABG Potassium ABG Chloride ABG Glucose Oxyhemoglobin Carboxyhemoglobin Sodium 146 H Potassium 5.3 H Chloride 113.2 H Carbon Dioxide 20 L BUN 73 H Creatinine 4.2 H Glucose 234 H POC Glucose Hemoglobin A1c Calcium 6.3 L D Phosphorus Magnesium Ferritin 1094.0 H Lactate Dehydrogenase Troponin T C-Reactive Protein Total Protein 4.3 L Albumin 2.0 L Ucphr-4-Ktaiksmmv Ovqbj-4-Xejqzbzqx Beta Globulins PEP Interpretation Triglycerides HDL Cholesterol Arterial Blood Glucose Arterial Blood Ionized Calcium Urine WBC (Auto) Coronavirus (PCR) 06/24/21 06/24/21 06/24/21 00:03 04:55 04:55 WBC 18.7 H RBC Hgb Hct RDW 16.8 H Plt Count 42 L Lymph % (Auto) Lymph # (Auto) Seg Neutrophils % Seg Neuts % (Manual) Lymphocytes % (Manual) 1.0 L Nucleated RBC % 1.0 H Seg Neutrophils # Seg Neutrophils # Man 12.7 H Lymphocytes # (Manual) 0.2 L Monocytes # (Manual) PT INR APTT D-Dimer ABG pH POC ABG pCO2 POC ABG pO2 ABG pO2 ABG HCO3 ABG O2 Saturation ABG Base Excess ABG Hemoglobin ABG Oxyhemoglobin ABG Methemoglobin ABG Sodium ABG Potassium ABG Chloride ABG Glucose Oxyhemoglobin Carboxyhemoglobin Sodium Potassium 6.0 H Chloride Carbon Dioxide 20 L BUN 86 H Creatinine 5.4 H Glucose 309 H POC Glucose 265 H Hemoglobin A1c Calcium 6.5 L Phosphorus 7.60 H Magnesium Ferritin Lactate Dehydrogenase Troponin T C-Reactive Protein Total Protein 4.6 L Albumin 2.1 L Sfxrz-2-Igjcrptyb Yuxzu-2-Clyfekwrm Beta Globulins PEP Interpretation Triglycerides HDL Cholesterol Arterial Blood Glucose Arterial Blood Ionized Calcium Urine WBC (Auto) Coronavirus (PCR) 06/24/21 06/24/21 06/24/21 04:55 06:01 11:38 WBC RBC Hgb Hct RDW Plt Count Lymph % (Auto) Lymph # (Auto) Seg Neutrophils % Seg Neuts % (Manual) Lymphocytes % (Manual) Nucleated RBC % Seg Neutrophils # Seg Neutrophils # Man Lymphocytes # (Manual) Monocytes # (Manual) PT 22.2 H INR 1.90 H APTT D-Dimer ABG pH POC ABG pCO2 POC ABG pO2 ABG pO2 ABG HCO3 ABG O2 Saturation ABG Base Excess ABG Hemoglobin ABG Oxyhemoglobin ABG Methemoglobin ABG Sodium ABG Potassium ABG Chloride ABG Glucose Oxyhemoglobin Carboxyhemoglobin Sodium Potassium Chloride Carbon Dioxide BUN Creatinine Glucose POC Glucose 257 H 288 H Hemoglobin A1c Calcium Phosphorus Magnesium Ferritin Lactate Dehydrogenase Troponin T C-Reactive Protein Total Protein Albumin [id number] Jlruv-6-Fnilntroh Beta Globulins PEP Interpretation Triglycerides HDL Cholesterol Arterial Blood Glucose Arterial Blood Ionized Calcium Urine WBC (Auto) Coronavirus (PCR) 06/24/21 06/24/21 06/25/21 18:02 23:29 05:12 WBC RBC Hgb Hct RDW Plt Count Lymph % (Auto) Lymph # (Auto) Seg Neutrophils % Seg Neuts % (Manual) Lymphocytes % (Manual) Nucleated RBC % Seg Neutrophils # Seg Neutrophils # Man Lymphocytes # (Manual) Monocytes # (Manual) PT INR APTT D-Dimer ABG pH POC ABG pCO2 POC ABG pO2 ABG pO2 ABG HCO3 ABG O2 Saturation ABG Base Excess ABG Hemoglobin ABG Oxyhemoglobin ABG Methemoglobin ABG Sodium ABG Potassium ABG Chloride ABG Glucose Oxyhemoglobin Carboxyhemoglobin Sodium Potassium Chloride Carbon Dioxide BUN Creatinine Glucose POC Glucose 299 H 269 H 283 H Hemoglobin A1c Calcium Phosphorus Magnesium Ferritin Lactate Dehydrogenase Troponin T C-Reactive Protein Total Protein Albumin Vrqit-0-Jqtkbkcmg Uifrx-5-Wsqxlduue Beta Globulins PEP Interpretation Triglycerides HDL Cholesterol Arterial Blood Glucose Arterial Blood Ionized Calcium Urine WBC (Auto) Coronavirus (PCR) 06/25/21 06/25/21 06/25/21 09:05 09:05 09:05 WBC 14.5 H RBC Hgb Hct RDW 16.4 H Plt Count 41 L Lymph % (Auto) Lymph # (Auto) Seg Neutrophils % Seg Neuts % (Manual) Lymphocytes % (Manual) Nucleated RBC % Seg Neutrophils # Seg Neutrophils # Man Lymphocytes # (Manual) Monocytes # (Manual) PT 20.2 H INR 1.68 H APTT D-Dimer ABG pH POC ABG pCO2 POC ABG pO2 ABG pO2 ABG HCO3 ABG O2 Saturation ABG Base Excess ABG Hemoglobin ABG Oxyhemoglobin ABG Methemoglobin ABG Sodium ABG Potassium ABG Chloride ABG Glucose Oxyhemoglobin Carboxyhemoglobin Sodium Potassium 5.5 H Chloride 97.2 L Carbon Dioxide BUN 88 H Creatinine 5.6 H Glucose 370 H POC Glucose Hemoglobin A1c Calcium 7.4 L Phosphorus 8.00 H Magnesium Ferritin Lactate Dehydrogenase Troponin T C-Reactive Protein Total Protein 5.1 L Albumin 2.5 L Jffqt-9-Opepczahx Zxdeq-9-Xskvobxrp Beta Globulins PEP Interpretation Triglycerides HDL Cholesterol Arterial Blood Glucose Arterial Blood Ionized Calcium Urine WBC (Auto) Coronavirus (PCR) 06/25/21 06/25/21 06/25/21 09:29 12:05 17:28 WBC RBC Hgb Hct RDW Plt Count Lymph % (Auto) Lymph # (Auto) Seg Neutrophils % Seg Neuts % (Manual) Lymphocytes % (Manual) Nucleated RBC % Seg Neutrophils # Seg Neutrophils # Man Lymphocytes # (Manual) Monocytes # (Manual) PT INR APTT D-Dimer ABG pH 7.304 L POC ABG pCO2 53.2 H POC ABG pO2 ABG pO2 ABG HCO3 ABG O2 Saturation ABG Base Excess ABG Hemoglobin 10.9 L ABG Oxyhemoglobin ABG Methemoglobin ABG Sodium 133.9 L ABG Potassium 5.8 H ABG Chloride ABG Glucose 380 H Oxyhemoglobin Carboxyhemoglobin 0.4 L Sodium Potassium Chloride Carbon Dioxide BUN Creatinine Glucose POC Glucose 359 H 288 H Hemoglobin A1c Calcium Phosphorus Magnesium Ferritin Lactate Dehydrogenase Troponin T C-Reactive Protein Total Protein Albumin Sefup-9-Killmizxv Xfwsp-8-Fchcvmhjh Beta Globulins PEP Interpretation Triglycerides HDL Cholesterol Arterial Blood Glucose 380 H Arterial Blood Ionized Calcium Urine WBC (Auto) Coronavirus (PCR) 06/25/21 06/25/21 06/26/21 21:00 23:46 05:14 WBC RBC Hgb Hct RDW Plt Count Lymph % (Auto) Lymph # (Auto) Seg Neutrophils % Seg Neuts % (Manual) Lymphocytes % (Manual) Nucleated RBC % Seg Neutrophils # Seg Neutrophils # Man Lymphocytes # (Manual) Monocytes # (Manual) PT INR APTT D-Dimer ABG pH 7.280 L 7.268 L POC ABG pCO2 59.7 H 60.2 H POC ABG pO2 113.7 H ABG pO2 ABG HCO3 ABG O2 Saturation ABG Base Excess ABG Hemoglobin 11.4 L 10.9 L ABG Oxyhemoglobin ABG Methemoglobin ABG Sodium 134.4 L 133.3 L ABG Potassium 4.7 H ABG Chloride ABG Glucose 313 H 353 H Oxyhemoglobin Carboxyhemoglobin 0.4 L Sodium Potassium Chloride Carbon Dioxide BUN Creatinine Glucose POC Glucose 325 H Hemoglobin A1c Calcium Phosphorus Magnesium Ferritin Lactate Dehydrogenase Troponin T C-Reactive Protein Total Protein Albumin Wvqwg-3-Rinhwdlxb Suqmx-7-Bkoqyskeq Beta Globulins PEP Interpretation Triglycerides HDL Cholesterol Arterial Blood Glucose 313 H 353 H Arterial Blood Ionized Calcium Urine WBC (Auto) Coronavirus (PCR) 06/26/21 06/26/21 06/26/21 05:27 07:00 07:00 WBC 11.4 H RBC 3.63 L Hgb Hct RDW 15.6 H Plt Count 29 L Lymph % (Auto) 6.4 L Lymph # (Auto) 0.7 L Seg Neutrophils % 87.9 H Seg Neuts % (Manual) Lymphocytes % (Manual) Nucleated RBC % Seg Neutrophils # 10.4 H Seg Neutrophils # Man Lymphocytes # (Manual) Monocytes # (Manual) PT INR APTT D-Dimer ABG pH POC ABG pCO2 POC ABG pO2 ABG pO2 ABG HCO3 ABG O2 Saturation ABG Base Excess ABG Hemoglobin ABG Oxyhemoglobin ABG Methemoglobin ABG Sodium ABG Potassium ABG Chloride ABG Glucose Oxyhemoglobin Carboxyhemoglobin Sodium Potassium Chloride Carbon Dioxide BUN Creatinine Glucose POC Glucose 345 H Hemoglobin A1c Calcium Phosphorus 7.40 H Magnesium Ferritin Lactate Dehydrogenase Troponin T C-Reactive Protein Total Protein Albumin Praup-2-Tnhruaqxb Pqbnj-6-Bnrkxommy Beta Globulins PEP Interpretation Triglycerides HDL Cholesterol Arterial Blood Glucose Arterial Blood Ionized Calcium Urine WBC (Auto) Coronavirus (PCR) 06/26/21 06/26/21 06/26/21 10:00 10:00 13:01 WBC RBC Hgb Hct RDW Plt Count Lymph % (Auto) Lymph # (Auto) Seg Neutrophils % Seg Neuts % (Manual) Lymphocytes % (Manual) Nucleated RBC % Seg Neutrophils # Seg Neutrophils # Man Lymphocytes # (Manual) Monocytes # (Manual) PT INR APTT D-Dimer 1363.54 H ABG pH POC ABG pCO2 POC ABG pO2 ABG pO2 ABG HCO3 ABG O2 Saturation ABG Base Excess ABG Hemoglobin ABG Oxyhemoglobin ABG Methemoglobin ABG Sodium ABG Potassium ABG Chloride ABG Glucose Oxyhemoglobin Carboxyhemoglobin Sodium 136 L Potassium Chloride 96.1 L Carbon Dioxide BUN 78 H Creatinine 4.6 H Glucose 378 H POC Glucose 363 H Hemoglobin A1c Calcium 8.3 L Phosphorus Magnesium Ferritin Lactate Dehydrogenase Troponin T C-Reactive Protein Total Protein Albumin Nnwzi-9-Kuwyubrwq Asmex-8-Pibrehctu Beta Globulins PEP Interpretation Triglycerides HDL Cholesterol Arterial Blood Glucose Arterial Blood Ionized Calcium Urine WBC (Auto) Coronavirus (PCR) 06/26/21 06/26/21 06/27/21 18:53 23:08 00:15 WBC RBC Hgb Hct RDW Plt Count Lymph % (Auto) Lymph # (Auto) Seg Neutrophils % Seg Neuts % (Manual) Lymphocytes % (Manual) Nucleated RBC % Seg Neutrophils # Seg Neutrophils # Man Lymphocytes # (Manual) Monocytes # (Manual) PT INR APTT D-Dimer ABG pH POC ABG pCO2 POC ABG pO2 ABG pO2 ABG HCO3 ABG O2 Saturation ABG Base Excess ABG Hemoglobin ABG Oxyhemoglobin ABG Methemoglobin ABG Sodium ABG Potassium ABG Chloride ABG Glucose Oxyhemoglobin Carboxyhemoglobin Sodium Potassium Chloride Carbon Dioxide BUN Creatinine Glucose POC Glucose 329 H 337 H 308 H Hemoglobin A1c Calcium Phosphorus Magnesium Ferritin Lactate Dehydrogenase Troponin T C-Reactive Protein Total Protein Albumin Tndap-2-Tayampjnv Vyjef-8-Kxtapzrtk Beta Globulins PEP Interpretation Triglycerides HDL Cholesterol Arterial Blood Glucose Arterial Blood Ionized Calcium Urine WBC (Auto) Coronavirus (PCR) 06/27/21 06/27/21 06/27/21 05:13 06:40 06:40 WBC 12.5 H RBC Hgb Hct RDW 16.1 H Plt Count 23 L Lymph % (Auto) Lymph # (Auto) Seg Neutrophils % Seg Neuts % (Manual) Lymphocytes % (Manual) Nucleated RBC % Seg Neutrophils # 11.3 H Seg Neutrophils # Man Lymphocytes # (Manual) Monocytes # (Manual) PT INR APTT D-Dimer ABG pH POC ABG pCO2 POC ABG pO2 ABG pO2 ABG HCO3 ABG O2 Saturation ABG Base Excess ABG Hemoglobin ABG Oxyhemoglobin ABG Methemoglobin ABG Sodium ABG Potassium ABG Chloride ABG Glucose Oxyhemoglobin Carboxyhemoglobin Sodium 133 L Potassium 5.4 H Chloride 93.4 L Carbon Dioxide BUN 96 H Creatinine 5.6 H Glucose 388 H POC Glucose 329 H Hemoglobin A1c Calcium 8.3 L Phosphorus 8.70 H Magnesium Ferritin Lactate Dehydrogenase Troponin T C-Reactive Protein Total Protein Albumin Zctjc-5-Zmzxahkvy Kegwl-8-Vphqeryjk Beta Globulins PEP Interpretation Triglycerides HDL Cholesterol Arterial Blood Glucose Arterial Blood Ionized Calcium Urine WBC (Auto) Coronavirus (PCR) 06/27/21 06/27/21 06/27/21 11:46 16:30 17:12 WBC RBC Hgb Hct RDW Plt Count Lymph % (Auto) Lymph # (Auto) Seg Neutrophils % Seg Neuts % (Manual) Lymphocytes % (Manual) Nucleated RBC % Seg Neutrophils # Seg Neutrophils # Man Lymphocytes # (Manual) Monocytes # (Manual) PT INR APTT D-Dimer ABG pH 7.180 L POC ABG pCO2 62.9 H POC ABG pO2 111.1 H ABG pO2 ABG HCO3 ABG O2 Saturation ABG Base Excess ABG Hemoglobin 10.7 L ABG Oxyhemoglobin ABG Methemoglobin ABG Sodium 130.6 L ABG Potassium 5.1 H ABG Chloride 95.0 L ABG Glucose 364 H Oxyhemoglobin Carboxyhemoglobin Sodium Potassium Chloride Carbon Dioxide BUN Creatinine Glucose POC Glucose 330 H 276 H Hemoglobin A1c Calcium Phosphorus Magnesium Ferritin Lactate Dehydrogenase Troponin T C-Reactive Protein Total Protein Albumin Eyfii-0-Dywbeondy Ibmyq-9-Gorqhjhgo Beta Globulins PEP Interpretation Triglycerides HDL Cholesterol Arterial Blood Glucose 364 H Arterial Blood Ionized Calcium 4.4 L Urine WBC (Auto) Coronavirus (PCR) 06/27/21 06/27/21 06/27/21 21:00 21:16 23:15 WBC RBC Hgb Hct RDW Plt Count Lymph % (Auto) Lymph # (Auto) Seg Neutrophils % Seg Neuts % (Manual) Lymphocytes % (Manual) Nucleated RBC % Seg Neutrophils # Seg Neutrophils # Man Lymphocytes # (Manual) Monocytes # (Manual) PT INR APTT D-Dimer ABG pH 7.283 L 7.257 L POC ABG pCO2 60.1 H POC ABG pO2 ABG pO2 55.0 L ABG HCO3 27.6 H ABG O2 Saturation 85.3 L ABG Base Excess ABG Hemoglobin 10.4 L 9.8 L ABG Oxyhemoglobin ABG Methemoglobin ABG Sodium 135.7 L ABG Potassium ABG Chloride 97.0 L ABG Glucose 309 H Oxyhemoglobin 83.3 L Carboxyhemoglobin Sodium Potassium Chloride Carbon Dioxide BUN Creatinine Glucose POC Glucose 265 H Hemoglobin A1c Calcium Phosphorus Magnesium Ferritin Lactate Dehydrogenase Troponin T C-Reactive Protein Total Protein Albumin Leamr-6-Nkdbcpibi Hhdzm-6-Klkcezypv Beta Globulins PEP Interpretation Triglycerides HDL Cholesterol Arterial Blood Glucose 309 H Arterial Blood Ionized Calcium Urine WBC (Auto) Coronavirus (PCR) 06/27/21 06/28/21 06/28/21 Unknown 04:25 04:25 WBC 11.6 H RBC 3.44 L Hgb 9.9 L Hct RDW 15.7 H Plt Count 36 L Lymph % (Auto) 7.6 L Lymph # (Auto) 0.9 L Seg Neutrophils % 86.7 H Seg Neuts % (Manual) Lymphocytes % (Manual) Nucleated RBC % Seg Neutrophils # 10.0 H Seg Neutrophils # Man Lymphocytes # (Manual) Monocytes # (Manual) PT 16.5 H INR 1.27 H APTT D-Dimer ABG pH 7.230 L POC ABG pCO2 POC ABG pO2 ABG pO2 92.0 H ABG HCO3 26.2 H ABG O2 Saturation ABG Base Excess ABG Hemoglobin 8.2 L ABG Oxyhemoglobin ABG Methemoglobin ABG Sodium ABG Potassium ABG Chloride ABG Glucose Oxyhemoglobin 94.6 L Carboxyhemoglobin Sodium Potassium Chloride Carbon Dioxide BUN Creatinine Glucose POC Glucose Hemoglobin A1c Calcium Phosphorus Magnesium Ferritin Lactate Dehydrogenase Troponin T C-Reactive Protein Total Protein Albumin Hnmit-3-Kpgtrgayi Zgtnr-9-Fhecuqqhb Beta Globulins PEP Interpretation Triglycerides HDL Cholesterol Arterial Blood Glucose Arterial Blood Ionized Calcium Urine WBC (Auto) Coronavirus (PCR) 06/28/21 06/28/21 06/28/21 04:25 05:35 12:22 WBC RBC Hgb Hct RDW Plt Count Lymph % (Auto) Lymph # (Auto) Seg Neutrophils % Seg Neuts % (Manual) Lymphocytes % (Manual) Nucleated RBC % Seg Neutrophils # Seg Neutrophils # Man Lymphocytes # (Manual) Monocytes # (Manual) PT INR APTT D-Dimer ABG pH POC ABG pCO2 POC ABG pO2 ABG pO2 ABG HCO3 ABG O2 Saturation ABG Base Excess ABG Hemoglobin ABG Oxyhemoglobin ABG Methemoglobin ABG Sodium ABG Potassium ABG Chloride ABG Glucose Oxyhemoglobin Carboxyhemoglobin Sodium 136 L Potassium Chloride 96.0 L Carbon Dioxide BUN 79 H Creatinine 4.8 H Glucose 301 H POC Glucose 256 H 255 H Hemoglobin A1c Calcium Phosphorus 6.80 H D Magnesium Ferritin Lactate Dehydrogenase Troponin T C-Reactive Protein Total Protein Albumin Sceam-2-Usdsosdom Mbqht-8-Sskwsezks Beta Globulins PEP Interpretation Triglycerides HDL Cholesterol Arterial Blood Glucose Arterial Blood Ionized Calcium Urine WBC (Auto) Coronavirus (PCR) Chest x-ray: pending Allied health notes reviewed: nursing
--- NOTE | 2021-06-28 15:31 | Progress Note ---
Assessment and Plan Assessment and Plan COVID-19 breakthrough infection COVID-19 pneumonia Acute kidney injury possibly 2/2 ATN, hypotension on underlying CKD Acute hypoxic respiratory failure Insulin-dependent type 2 diabetes- uncontrolled Elevated troponin Hypertension-controlled Hypothyroidism Protein calorie malnutrition Hypernatremia Plan S/p HD yesterday for UF and clearance, UF removed 1.5L No acute indication for HD today HD tomorrow for UF and clearance HD prescription adjusted to decreased dialysate temp, sodium modeling, higher calcium bath, and PRN albumin to assist with hemodynamic stability during HD Assess need for HD on daily basis Renal function reviewed, SCr level was 4.8 today, yesterday's SCr level was 5.6 S/p Right IJ Vas catheter placement on 06/24/21 Initiated on HD on 06/24/21 Off pressors for now Renal US was negative for hydronephrosis Renally dose medications Strict I&O's daily Intake= 1729 ml Output= 1461 ml (Net= 268 ml) Renal plan reviewed by Dr Schultz Subjective Date of service: 06/28/21 Principal diagnosis: ARDS; Pneumonia; COVID-19 virus infection; TREMAINE; DM II; Morbid obesity Interval history: Pt on isolation for covid-19, reviewed medical chart, labs, and notes. Objective - Vital Signs Vital signs: Vital Signs - 12hr 06/28/21 06/28/21 06/28/21 04:00 04:14 05:01 Temperature 97.5 F L Pulse Rate 101 H 119 H 118 H Pulse Rate [ 110 H From Monitor] Respiratory 29 H 17 Rate Blood Pressure 122/75 142/94 167/101 O2 Sat by Pulse 97 93 90 Oximetry 06/28/21 06/28/21 06/28/21 06:01 07:01 07:15 Temperature Pulse Rate 121 H 115 H 119 H Pulse Rate [ From Monitor] Respiratory 15 26 H 29 H Rate Blood Pressure 183/90 168/81 156/80 O2 Sat by Pulse 86 88 82 L Oximetry 06/28/21 06/28/21 06/28/21 07:30 07:33 07:45 Temperature 97.6 F Pulse Rate 114 H 118 H Pulse Rate [ From Monitor] Respiratory 30 H 26 H Rate Blood Pressure 169/79 179/74 O2 Sat by Pulse 87 85 Oximetry 06/28/21 06/28/21 06/28/21 08:00 08:15 08:31 Temperature Pulse Rate 121 H 123 H 118 H Pulse Rate [ From Monitor] Respiratory 24 30 H 30 H Rate Blood Pressure 180/85 191/96 133/86 O2 Sat by Pulse 89 85 96 Oximetry 06/28/21 06/28/21 06/28/21 08:32 08:45 09:01 Temperature Pulse Rate 115 H 116 H 111 H Pulse Rate [ From Monitor] Respiratory 30 H 30 H Rate Blood Pressure 141/94 156/74 150/74 O2 Sat by Pulse 90 90 91 Oximetry 06/28/21 06/28/21 06/28/21 09:15 09:30 09:45 Temperature Pulse Rate 116 H 116 H 126 H Pulse Rate [ From Monitor] Respiratory 30 H 18 18 Rate Blood Pressure 151/64 160/73 160/73 O2 Sat by Pulse 94 92 86 Oximetry 06/28/21 06/28/21 06/28/21 10:01 10:15 10:30 Temperature Pulse Rate 121 H 113 H 128 H Pulse Rate [ From Monitor] Respiratory 21 27 H 20 Rate Blood Pressure 166/85 167/87 168/90 O2 Sat by Pulse 88 87 87 Oximetry 06/28/21 06/28/21 06/28/21 10:37 10:45 11:01 Temperature Pulse Rate 125 H 117 H 121 H Pulse Rate [ From Monitor] Respiratory 30 H 29 H Rate Blood Pressure 168/90 168/90 130/67 O2 Sat by Pulse 89 88 Oximetry 06/28/21 06/28/21 06/28/21 11:11 11:15 11:31 Temperature 98.4 F Pulse Rate 118 H 116 H 125 H Pulse Rate [ From Monitor] Respiratory 30 H 30 H 30 H Rate Blood Pressure 130/67 131/74 150/75 O2 Sat by Pulse 90 91 89 Oximetry 06/28/21 06/28/21 06/28/21 11:45 12:00 12:15 Temperature Pulse Rate 116 H 110 H 111 H Pulse Rate [ From Monitor] Respiratory 30 H 30 H 30 H Rate Blood Pressure 112/63 109/53 98/57 O2 Sat by Pulse 93 93 93 Oximetry 06/28/21 06/28/21 06/28/21 12:30 12:32 12:45 Temperature Pulse Rate 110 H 106 H Pulse Rate [ From Monitor] Respiratory 30 H 30 H Rate Blood Pressure 110/45 139/112 102/63 O2 Sat by Pulse 94 92 94 Oximetry 06/28/21 06/28/21 13:00 13:15 Temperature Pulse Rate 109 H 89 Pulse Rate [ From Monitor] Respiratory 30 H 30 H Rate Blood Pressure 112/55 107/61 O2 Sat by Pulse 95 95 Oximetry - Lab 06/28/21 04:25 06/28/21 04:25 Most recent lab results ABG pH 7.230 pH Units (7.350-7.450) L 06/27/21 Unknown ABG pCO2 64.0 mm Hg 06/27/21 Unknown ABG pO2 92.0 mm Hg (80.0-90.0) H 06/27/21 Unknown ABG HCO3 26.2 mmol/L (20.0-26.0) H 06/27/21 Unknown ABG O2 Saturation 96.8 % (95.0-99.0) 06/27/21 Unknown Calcium 8.4 mg/dL (8.4-10.2) 06/28/21 04:25 Phosphorus 6.80 mg/dL (2.5-4.5) H D 06/28/21 04:25 Magnesium 2.30 mg/dL (1.7-2.3) 06/28/21 04:25 Medications & Allergies - Medications Allergies/Adverse Reactions: Allergies latex Allergy (Verified 03/19/19 17:03) Unknown shellfish derived Allergy (Verified 03/19/19 17:03) Anaphylaxis strawberry Allergy (Verified 03/19/19 17:03) Anaphylaxis tomato Allergy (Verified 03/19/19 17:03) Anaphylaxis nuts Allergy (Uncoded 03/19/19 17:03) Anaphylaxis Home Medications: Home Medications Medication Instructions Recorded Confirmed Last Taken Type Albuterol Sulfate [Ventolin HFA] 2 puff IH Q4H PRN 01/29/14 06/11/21 02/01/15 History Levothyroxine (Nf) [Synthroid (Nf)] 275 mcg PO QAM 01/29/14 06/11/21 02/01/15 History Fluticasone/Salmeterol [Advair 1 each IH PRN PRN 01/26/15 06/11/21 02/02/15 10:00 History Diskus 250-50 mcg] Apixaban [Eliquis starter pack] 5 mg PO BID 09/13/19 06/11/21 Unknown History Insulin Aspart Prot/Insuln Asp 45 unit SUB-Q QAM 09/13/19 06/11/21 Unknown Hi story [Novolog Mix 70-30 Flexpen] Insulin Glargine,Hum.rec.anlog 25 unit SQ HS 09/13/19 06/11/21 Unknown History [Basaglar Kwikpen U-100] Lovastatin [Altoprev] 20 mg PO DAILY 09/13/19 06/11/21 Unknown History Docusate Sodium [Colace CAP] 100 mg PO BID PRN #30 capsule 09/17/19 06/11/21 Unknown Rx Loratadine/Pseudoephedrine 1 each PO Q24HR #10 tablet 09/17/19 06/11/21 Unknown Rx [Claritin-D 24HR] Ondansetron [Zofran Odt] 4 mg PO Q8HR #20 tab.rapdis 09/17/19 06/11/21 Unknown Rx carvediloL [Coreg] 3.125 mg PO BID #60 tablet 09/17/19 06/11/21 Unknown Rx hydrALAZINE [Apresoline TAB] 25 mg PO Q8HR #90 tablet 09/17/19 06/11/21 Unknown Rx Active Medications: Generic Name Dose Route Start Last Admin Trade Name Freq PRN Reason Stop Dose Admin Acetaminophen 650 mg 06/07/21 21:41 06/24/21 11:45 Acetaminophen 325 Mg Tab PO 650 mg Q4H PRN Administration Pain MILD(1-3)/Fever >100.5/MARTÍNEZ Albumin Human 25 gm 06/24/21 14:55 06/27/21 17:47 Albumin Human 25% (25 Gm/100 Ml) Inj IV 25 gm KORINA PRN Administration Hypotension Albuterol 2 mg 06/23/21 09:00 Albuterol 2.5 Mg/3 Ml Nebu IH Q4HRT PRN Shortness Of Breath Lipase/Protease/Amylase 1 each 06/28/21 12:15 Lipase 10,500/Protease 25,000/Amylase 43,750 (Units) Dr Barahona FEEDTUBE PRN PRN For Clogged Feeding Tube Ascorbic Acid 500 mg 06/22/21 22:00 06/28/21 10:33 Ascorbic Acid 500 Mg Tab PO 500 mg BID LEONOR Administration Atorvastatin Calcium 10 mg 06/08/21 10:00 06/28/21 10:33 Atorvastatin 10 Mg Tab PO 10 mg DAILY LEONOR Administration Dextrose 50 ml 06/08/21 12:04 06/20/21 12:16 Dextrose 50% In Water (25gm) 50 Ml Syringe IV 50 ml Q30MIN PRN Administration Hypoglycemia Protocol Famotidine 10 mg 06/22/21 22:00 06/28/21 10:32 Famotidine 20 Mg/2 Ml Inj IV 10 mg BID LEONOR Administration Fentanyl 50 mcg 06/22/21 13:07 06/28/21 08:17 Fentanyl 100 Mcg/2 Ml Inj IV 50 mcg Q10MIN PRN Administration ANALGESIA Hydrophilic Ointment 1 applic 06/22/21 13:07 Lip Therapy Vaseline TP Q2HR PRN Dry Lips Fentanyl Citrate 2,000 mcg in 100 mls @ 8.2 mls/hr 06/22/21 14:00 06/28/21 12:45 Fentanyl Drip Premix IV 4 mcg/kg/hr TITR LEONOR 32.8 mls/hr Administration Protocol 1 MCG/KG/HR NORepinephrine/NS 8 MG-250 ML 8 mg in 250 mls @ 3.75 mls/hr 06/22/21 15:00 06/27/21 19:29 Norepinephrine/Ns 8 Mg-250 Ml (Double Conc) IV 0 mcg/min TITRATE LEONOR 0 mls/hr Titration Protocol 2 MCG/MIN Cefepime HCl 2 gm in 100 mls @ 200 mls/hr 06/23/21 08:00 06/28/21 10:28 Cefepime/Ns 2 Gm/100 Ml IV 06/29/21 08:29 200 mls/hr Q24H LENOOR Administration Protocol Vasopressin 20 unit/ Sodium 101 mls @ 9.09 mls/hr 06/23/21 09:00 06/25/21 16:25 Chloride IV 0 units/min TITR LEONOR 0 mls/hr Titration Protocol 0.03 UNITS/MIN Sodium Chloride 500 mls @ 1 mls/hr 06/23/21 11:19 Nacl 0.9% 500 Ml IV DIRECT PRN ARTERIAL LINE FLUSH Lacosamide 100 mg/ Sodium 110 mls @ 100 mls/hr 06/23/21 15:00 06/28/21 04:11 Chloride IV 100 mls/hr Q12H LEONOR Administration Sodium Chloride 100 mls @ 999 mls/hr 06/25/21 06:00 Nacl 0.9% IV KORINA PRN Hypotension Sodium Chloride 100 mls @ 999 mls/hr 06/25/21 14:13 Nacl 0.9% IV KORINA PRN Hypotension Sodium Chloride 500 mls @ 0 mls/hr 06/28/21 09:00 Nacl 0.9% 500 Ml IV 06/28/21 18:00 ONCE@0900 LEONOR As Directed Diltiazem HCl 100 mg in 100 mls @ 7.5 mls/hr 06/28/21 10:15 06/28/21 12:46 Cardizem/D5w 100mg/100ml IV 5 mg/hr TITR LEONOR 5 mls/hr Titration Protocol 7.5 MG/HR Insulin Human Isoph/Insulin Regular 30 unit 06/28/21 10:30 06/28/21 10:37 Insulin Nph/Regular 70/30 Inj SUB-Q 30 unit TID [facility] Administration Insulin Human Regular 0 units 06/22/21 18:00 06/28/21 12:27 Insulin Regular, Human 100 Units/1 Ml SUB-Q 6 units Q6HR [facility] Administration Protocol Levothyroxine Sodium 137.5 mcg 06/23/21 06:00 06/28/21 05:04 Levothyroxine 100 Mcg Inj IV 137.5 mcg DAILY@0600 [facility] Administration Methylprednisolone Sodium Succinate 100 mg 06/28/21 08:00 06/28/21 10:32 Methylprednisolone Sod Succinate 125 Mg/2 Ml Inj IV 100 mg Q12H LEONOR Administration Metoclopramide HCl 5 mg 06/27/21 14:00 06/28/21 05:04 Metoclopramide 10 Mg/2 Ml Inj IV 06/29/21 13:59 5 mg Q8HR LEONOR Administration Midazolam HCl 5 mg 06/26/21 16:00 Midazolam 5 Mg/5 Ml Inj Mdv IV 07/06/21 23:59 PRN NR Midodrine 10 mg 06/22/21 15:00 06/28/21 08:24 Midodrine 5 Mg Tab PO Not Given Q8H [facility] Multi-Ingred Cream/Lotion/Oil/Oint 1 applic 06/22/21 13:07 Mineral Oil/Petrolatum, White Ophth Oint 3.5 Gm OU Q4HR PRN Dry Eye(s) Ondansetron HCl 4 mg 06/07/21 21:41 06/20/21 22:15 Ondansetron 4 Mg/2 Ml Inj IV 4 mg Q8H PRN Administration Nausea And Vomiting Polyethylene Glycol 17 gm 06/27/21 13:16 Polyethylene Glycol 3350 17 Gm Powder PO QDAY PRN Constipation Senna/Docusate Sodium 1 tab 06/22/21 22:00 06/28/21 10:33 Sennosides/Docusate Sodium 8.6/50 Mg Tab FEEDTUBE 1 tab BID LEONOR Administration Simple Syrup 15 ml 06/28/21 12:15 Simple Syrup 15 Ml FEEDTUBE PRN PRN Hypoglycemia Simple Syrup 30 ml 06/28/21 12:15 Simple Syrup 15 Ml FEEDTUBE PRN PRN Hypoglycemia Sodium Bicarbonate 325 mg 06/28/21 12:15 Sodium Bicarbonate 325 Mg Tab FEEDTUBE PRN PRN For Clogged Feeding Tube Sodium Chloride 10 ml 06/07/21 22:00 06/28/21 10:37 Sodium Chloride 0.9% 10 Ml Flush Syringe IV 10 ml BID LEONOR Administration Sodium Chloride 10 ml 06/07/21 21:41 Sodium Chloride 0.9% 10 Ml Flush Syringe IV PRN PRN LINE FLUSH Zinc Sulfate 220 mg 06/22/21 22:00 06/28/21 10:33 Zinc Sulfate 220 Mg Cap PO 220 mg BID LEONOR Administration
[2021-06-28] MEDS ORDERED: SODIUM CHLORIDE 0.9% 100 ML IV PRN (16:00)
--- NOTE | 2021-06-28 16:28 | Progress Note ---
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 Hospital Course to Date: 06/27/21- Patient remains intubated and sedated on fent gtt, RASS -2 to -3, not following any commands. Afib with RVR overnight was started on amio gtt, no BM for over 7days, bowel regimen was adjusted and reglan was added. Remains on high dose steroids, will start weaning steroids to twice a day starting tomorrow. Electrolytes imbalance noted with worsening in renal function, plan for HD today. 1jumbo of plt ordered for worsening throbocytopenia. Continue t o monitor electrolytes and renal function, am labs ordered. 06/28/21- Patient status is unchanged, remains on the vent and on low dose fentanyl. Plt still less than 50 s/p 1unit of plt, ddtional 1 unit of plt ordered. Afib with RVR this am, d/w cardio plan to switch amio gtt to cardizem gtt for rate control. Patient remains hyperglycemic adjustment made to basal insulin. will continue to monitor, am labs ordered Assessment and Plan #Neuro: Seizure, acute metabolic encephalopathy -Witnessed seizure (06/23/2021) -06/26 CT head with no acute findings -EEG report pending -Continue Vimpat 100 mg twice daily in the setting of worsening renal function -Neurology consulted, appreciate recommendations -Aspiration/seizure precautions -Sedated with fentanyl for RASS goal of -2 to -3 #Cardio: Atrial Fibrilation #Hypotension #H/o CAD -Afib RVR 110 to 120 -On amio gtt, Per Cardio plan to transition to cardizem gtt for rate control -Off pressors this morning -Vasopressor support as needed for MAP goal >65 -Hold antihypertensive at this time in the setting of hypotension -Continue home statin -Continue midodrine -AC on hold due to bleed and low plt #Respiratory: Acute hypoxic respiratory failure, ARDS 2/2 COVID 19 PNA -06/22 intubated with 7.50 ETT at 23 at the lips -Vent setting: A/C 80%,14,32,450 -Remain acidotic from this am ABGs, d/w CCM vent changes made -Still on high dose steriods, start weaning steroids today -Continue daily serial ABGs and CXR #GI: MO, protein calorie malnutrition -TF on hold this am, per protocol due to high residual -Reglan added on 06/27 to promote peristalsis -Last BM on 06/14 -Continue BR: Senokot, colace, Miralax added -Continue enteral nutrition as tolerated -consider KUB if patient start having emesis -Continue PPI- Pepcid #: CKD stage III #hyperkalemia; hyperphosphatemia #metabolic acidosis -Nephrology consulted, appreciate recommendations -Hemodialysis initiated status post placement of access; last received on 06/25/2021 -Electrolytes imbalance improved -last HD on 06/27 -Continue HD management per Nephro -Renally dosed medications and avoid nephrotoxic medications #Heme: h/o DVT, coagulopathy of COVID #Thrombocytopenia -Patient was on Eliquis which was discontinued and converted to therapeutic Lo venox -Lovenox was switched to Heparin in the setting of worsening renal function -Bilateral lower extremity Doppler ultrasound completed-> no acute DVT -Transitioned to Eliquis for anticoagulation in the setting of worsening thrombocytopenia, now on hold due to bleeding from ETT - Plt 36 today s/p 1unit of plt; additional 1 unit ordered -HEME on consult, appreciate recommendations -Pending HIT assay results -SCDs to bilateral directions while in bed -Trend CBC daily -Transfuse for hemoglobin less than 7 and plt less than 50 #ID: Sepsis, COVID-19 pneumonia -Infectious disease consulted, appreciate recommendations -S/p steroids for 10 days; S/p remdesivir -Still on high dose steroids -Vitamin C/zinc/vitamin D -contact/droplet isolation precautions -Trend COVID-19 inflammatory markers every 2-3 days -Currently on cefepime and vancomycin #Endo: Hyperglycemia; #H/o insulin-dependent diabetes #Hypothyroidism -Continue IV levothyroxine 200 mcg -On high dose steroids -Accu-Cheks every 6 hours; on high dose SSI -Adjusted NPH TID for better glucose control -Goal glucose 140-180 while critically ill The high probability of a clinically significant, sudden or life threatening deterioration of the [cardio, respiratory, Endo] system(s) required my full and direct attention, intervention and personal management. The aggregate critical care time was [60] minutes. This time is in addition to time spent performing reported procedures but includes the following: [x] Data Review and interpretation [x] Patient assessment and monitoring of vital signs [x] Documentation [x] Medication orders and management Disposition Plan: Continue medical management Total Time Spent with Patient (Minutes): 60 History Interval history: Patient seen and examined. Remains intubated and sedated on fent gtt. Back in Afib with RVR this am, on amio gtt At 5. RN also reported TF was held per protocol this am due to high residual, no significant events overnight Hospitalist Physical - Constitutional Vitals: Temp Pulse Resp BP Pulse Ox 97.7 F 89 30 H 107/61 95 06/28/21 16:04 06/28/21 13:15 06/28/21 13:15 06/28/21 13:15 06/28/21 13:15 General appearance: Present: no acute distress, well-nourished, obese - EENT Eyes: Present: PERRL - Respiratory Respiratory effort: normal Respiratory: bilateral: diminished - Cardiovascular Rhythm: regular Heart Sounds: Present: S1 & S2 - Extremities Extremities: pulses intact, pulses symmetrical Extremity abnormal: edema - Peripheral Assessment Generalized Edema Type: Non-pitting Edema Degree: 1+ Capillary Refill: < 3 seconds Skin Temperature: Warm Peripheral Pulses: within normal limits - Abdominal General gastrointestinal: soft, non-tender, normal bowel sounds - Integumentary Integumentary: Present: clear, warm, dry - Psychiatric Psychiatric: other (MIKHAIL) - Neurologic Neurologic: other (MIKHAIL) - Allied Health Allied health notes reviewed: nursing HEART Score - HEART Score EKG: Non-specific Age: 45-65 Risk factors: 1-2 risk factors Troponin: Troponin T 0.021 ng/mL (0.00-0.029) 06/08/21 13:49 - Critical Actions Critical Actions: 0-3 pts:0.9-1.7%risk of adverse cardiac event.Candidate for discharge Results - Labs CBC & Chem 7: 06/28/21 04:25 06/28/21 04:25 Labs: Laboratory Last Values WBC 11.6 K/mm3 (4.5-11.0) H 06/28/21 04:25 RBC 3.44 M/mm3 (3.65-5.03) L 06/28/21 04:25 Hgb 9.9 gm/dl (10.1-14.3) L 06/28/21 04:25 Hct 30.4 % (30.3-42.9) 06/28/21 04:25 MCV 88 fl (79-97) 06/28/21 04:25 MCH 29 pg (28-32) 06/28/21 04:25 MCHC 32 % (30-34) 06/28/21 04:25 RDW 15.7 % (13.2-15.2) H 06/28/21 04:25 Plt Count 36 K/mm3 (140-440) L 06/28/21 04:25 Lymph % (Auto) 7.6 % (13.4-35.0) L 06/28/21 04:25 [place] % (Auto) 5.6 % (0.0-7.3) 06/28/21 04:25 Eos % (Auto) 0.0 % (0.0-4.3) 06/28/21 04:25 Baso % (Auto) 0.1 % (0.0-1.8) 06/28/21 04:25 Lymph # (Auto) 0.9 K/mm3 (1.2-5.4) L 06/28/21 04:25 [place] # (Auto) 0.7 K/mm3 (0.0-0.8) 06/28/21 04:25 Eos # (Auto) 0.0 K/mm3 (0.0-0.4) 06/28/21 04:25 Baso # (Auto) 0.0 K/mm3 (0.0-0.1) 06/28/21 04:25 Add Manual Diff Complete 06/27/21 06:40 Total Counted 100 06/24/21 04:55 Seg Neutrophils % 86.7 % (40.0-70.0) H 06/28/21 04:25 Seg Neuts % (Manual) 68.0 % (40.0-70.0) 06/24/21 04:55 Band Neutrophils % 23.0 % 06/24/21 04:55 Lymphocytes % (Manual) 1.0 % (13.4-35.0) L 06/24/21 04:55 Monocytes % (Manual) 6.0 % (0.0-7.3) 06/23/21 04:42 Eosinophils % (Manual) 2.0 % (0.0-4.3) 06/23/21 04:42 Metamyelocytes % 2.0 % 06/10/21 23:14 Myelocytes % 8.0 % 06/24/21 04:55 Nucleated RBC % Not Reportable 06/27/21 06:40 Seg Neutrophils # 10.0 K/mm3 (1.8-7.7) H 06/28/21 04:25 Seg Neutrophils # Man 12.7 K/mm3 (1.8-7.7) H 06/24/21 04:55 Band Neutrophils # 4.3 K/mm3 06/24/21 04:55 Lymphocytes # (Manual) 0.2 K/mm3 (1.2-5.4) L 06/24/21 04:55 Abs React Lymphs (Man) 0.0 K/mm3 06/24/21 04:55 Monocytes # (Manual) 0.0 K/mm3 (0.0-0.8) 06/24/21 04:55 Eosinophils # (Manual) 0.0 K/mm3 (0.0-0.4) 06/24/21 04:55 Basophils # (Manual) 0.0 K/mm3 (0.0-0.1) 06/24/21 04:55 Metamyelocytes # 0.0 K/mm3 06/24/21 04:55 Myelocytes # 1.5 K/mm3 06/24/21 04:55 Promyelocytes # 0.0 K/mm3 06/24/21 04:55 Blast Cells # 0.0 K/mm3 06/24/21 04:55 WBC Morphology Not Reportable 06/27/21 06:40 Hypersegmented Neuts Not Reportable 06/27/21 06:40 Hyposegmented Neuts Not Reportable 06/27/21 06:40 Hypogranular Neuts Not Reportable 06/27/21 06:40 Smudge Cells Not Reportable 06/27/21 06:40 Toxic Granulation Not Reportable 06/27/21 06:40 Toxic Vacuolation Not Reportable 06/27/21 06:40 Dohle Bodies Not Reportable 06/27/21 06:40 Pelger-Huet Anomaly Not Reportable 06/27/21 06:40 Nba Rods Not Reportable 06/27/21 06:40 Platelet Estimate 30 06/27/21 06:40 Clumped Platelets Not Reportable 06/27/21 06:40 Plt Clumps, EDTA Not Reportable 06/27/21 06:40 Large Platelets 1+ 06/27/21 06:40 Giant Platelets Not Reportable 06/27/21 06:40 Platelet Satelliting Not Reportable 06/27/21 06:40 Plt Morphology Comment Not Reportable 06/27/21 06:40 RBC Morphology Not Reportable 06/27/21 06:40 Dimorphic RBCs Not Reportable 06/27/21 06:40 Polychromasia Not Reportable 06/27/21 06:40 Hypochromasia Not Reportable 06/27/21 06:40 Poikilocytosis Not Reportable 06/27/21 06:40 Anisocytosis Not Reportable 06/27/21 06:40 Microcytosis Not Reportable 06/27/21 06:40 Macrocytosis Not Reportable 06/27/21 06:40 Spherocytes Not Reportable 06/27/21 06:40 Pappenheimer Bodies Not Reportable 06/27/21 06:40 Sickle Cells Not Reportable 06/27/21 06:40 Target Cells Not Reportable 06/27/21 06:40 Tear Drop Cells Not Reportable 06/27/21 06:40 Ovalocytes Not Reportable 06/27/21 06:40 Helmet Cells Not Reportable 06/27/21 06:40 Terry-Timken Bodies Not Reportable 06/27/21 06:40 [place] Rings Not Reportable 06/27/21 06:40 [place] Cells Not Reportable 06/27/21 06:40 Bite Cells Not Reportable 06/27/21 06:40 Crenated Cell Not Reportable 06/27/21 06:40 Elliptocytes 1+ 06/27/21 06:40 Acanthocytes (Spur) Not Reportable 06/27/21 06:40 Rouleaux Not Reportable 06/27/21 06:40 Hemoglobin C Crystals Not Reportable 06/27/21 06:40 Schistocytes Not Reportable 06/27/21 06:40 Malaria parasites Not Reportable 06/27/21 06:40 Luis Bodies Not Reportable 06/27/21 06:40 Hem Pathologist Commnt No 06/27/21 06:40 PT 16.5 Sec. (12.2-14.9) H 06/28/21 04:25 INR 1.27 (0.87-1.13) H 06/28/21 04:25 APTT 26.7 Sec. (24.2-36.6) 06/26/21 10:00 Fibrinogen 328 mg/dl (211-480) 06/26/21 10:00 D-Dimer 1363.54 ng/mlDDU (0-234) H 06/26/21 10:00 ABG pH 7.230 pH Units (7.350-7.450) L 06/27/21 Unknown POC ABG pCO2 60.1 mmHg (32.0-48.0) H 06/27/21 21:00 ABG pCO2 64.0 mm Hg 06/27/21 Unknown POC ABG pO2 83.2 mmHg (83-108) 06/27/21 21:00 ABG pO2 92.0 mm Hg (80.0-90.0) H 06/27/21 Unknown POC ABG HCO3 27.8 06/27/21 21:00 ABG HCO3 26.2 mmol/L (20.0-26.0) H 06/27/21 Unknown ABG O2 Saturation 96.8 % (95.0-99.0) 06/27/21 Unknown ABG O2 Content 11.1 (0.0-44) 06/27/21 Unknown POC ABG Base Excess 0.3 06/27/21 21:00 ABG Base Excess -1.7 mmol/L (-2.0-3.0) 06/27/21 Unknown ABG Hemoglobin 8.2 gm/dl (12.0-16.0) L 06/27/21 Unknown ABG Oxyhemoglobin 94.5 (94-98) 06/27/21 21:00 ABG Carboxyhemoglobin 1.7 % (0.0-5.0) 06/27/21 Unknown ABG Methemoglobin 0.5 % (0.0-1.5) 06/27/21 Unknown ABG Sodium 135.7 mmol/L (136.0-145.0) L 06/27/21 21:00 ABG Potassium 4.3 mmol/L (3.40-4.50) 06/27/21 21:00 ABG Chloride 97.0 mmol/L (98-107) L 06/27/21 21:00 ABG Glucose 309 mg/dL (65-95) H 06/27/21 21:00 Oxyhemoglobin 94.6 % (95.0-99.0) L 06/27/21 Unknown Carboxyhemoglobin 0.9 (0.5-1.5) 06/27/21 21:00 FiO2 75 % 06/27/21 Unknown FiO2 % 80 06/27/21 21:00 Sodium 136 mmol/L (137-145) L 06/28/21 04:25 Potassium 4.7 mmol/L (3.6-5.0) 06/28/21 04:25 Chloride 96.0 mmol/L (98-107) L 06/28/21 04:25 Carbon Dioxide 23 mmol/L (22-30) 06/28/21 04:25 Anion Gap 22 mmol/L 06/28/21 04:25 BUN 79 mg/dL (7-17) H 06/28/21 04:25 Creatinine 4.8 mg/dL (0.6-1.2) H 06/28/21 04:25 Estimated GFR 11 ml/min 06/28/21 04:25 BUN/Creatinine Ratio 16 % 06/28/21 04:25 Glucose 301 mg/dL (65-100) H 06/28/21 04:25 POC Glucose 255 mg/dL (70-105) H 06/28/21 12:22 Hemoglobin A1c 9.5 % (4-6) H 06/07/21 19:11 Calcium 8.4 mg/dL (8.4-10.2) 06/28/21 04:25 Phosphorus 6.80 mg/dL (2.5-4.5) H D 06/28/21 04:25 Magnesium 2.30 mg/dL (1.7-2.3) 06/28/21 04:25 Ferritin 1094.0 ng/mL (10.0-200.0) H 06/23/21 Unknown Total Bilirubin 0.40 mg/dL (0.1-1.2) 06/25/21 09:05 AST 17 units/L (5-40) 06/25/21 09:05 ALT 25 units/L (7-56) 06/25/21 09:05 Alkaline Phosphatase 84 units/L (35-129) 06/25/21 09:05 Lactate Dehydrogenase 606 units/L (91-180) H 06/10/21 23:14 Troponin T 0.021 ng/mL (0.00-0.029) 06/08/21 13:49 C-Reactive Protein 4.40 mg/dL (0.00-1.30) H 06/23/21 04:42 Serum Total Protein 7.0 g/dL (6.1-8.1) 06/10/21 23:14 Total Protein 5.1 g/dL (6.3-8.2) L 06/25/21 09:05 Albumin 2.5 g/dL (3.9-5) L 06/25/21 09:05 Albumin/Globulin Ratio 1.0 % 06/25/21 09:05 Cxnhr-5-Jsiuyajsr 0.5 g/dL (0.2-0.3) H 06/10/21 23:14 Bjuxl-0-Xydovftiq 1.7 g/dL (0.5-0.9) H 06/10/21 23:14 Beta Globulins 0.6 g/dL (0.2-0.5) H 06/10/21 23:14 Gamma Globulins 1.3 g/dL (0.8-1.7) 06/10/21 23:14 Abnorm Protein Band 1 see below 06/10/21 23:14 PEP Interpretation see below H 06/10/21 23:14 Triglycerides 209 mg/dL (2-149) H 06/07/21 19:11 Cholesterol 165 mg/dL (50-199) 06/07/21 19:11 LDL Cholesterol Direct 79 mg/dL (50-130) 06/07/21 19:11 HDL Cholesterol 35 mg/dL (40-59) L 06/07/21 19:11 Cholesterol/HDL Ratio 4.71 % 06/07/21 19:11 Procalcitonin 0.91 ng/mL (<0.15) 06/07/21 19:11 Arterial Blood Glucose 309 mg/dL (65-95) H 06/27/21 21:00 Arterial Blood Ionized Calcium 4.4 mg/dL (4.6-5.3) L 06/27/21 16:30 Urine Color Sole (Yellow) 06/23/21 17:40 Urine Turbidity Cloudy (Clear) 06/23/21 17:40 Urine pH 6.0 (5.0-7.0) 06/23/21 17:40 Ur Specific Mason 1.017 (1.003-1.030) 06/23/21 17:40 Urine Protein >500 mg/dL (Negative) 06/23/21 17:40 Urine Glucose (UA) 50 mg/dL (Negative) 06/23/21 17:40 Urine Ketones Neg mg/dL (Negative) 06/23/21 17:40 Urine Blood Lg (Negative) 06/23/21 17:40 Urine Nitrite Neg (Negative) 06/23/21 17:40 Urine Bilirubin Neg (Negative) 06/23/21 17:40 Urine Urobilinogen < 2.0 mg/dL (<2.0) 06/23/21 17:40 Ur Leukocyte Esterase Mod (Negative) 06/23/21 17:40 Urine WBC (Auto) > 182.0 /HPF (0.0-6.0) H 06/23/21 17:40 Urine RBC (Auto) > 182.0 /HPF (0.0-6.0) 06/23/21 17:40 Urine WBC Clumps 3+ /HPF 06/23/21 17:40 Uric Acid Crystals 1+ 06/23/21 17:40 Urine Mucus Few /HPF 06/23/21 17:40 Random Vancomycin 13.8 ug/mL (0-40.0) 06/26/21 07:00 Coronavirus (PCR) Positive (Negative) A 06/08/21 08:30 Hepatitis A IgM Ab Non-reactive (NonReactive) 06/24/21 15:57 Hep Bs Antigen Nonreactive (Negative) 06/24/21 15:57 Hep B Core IgM Ab Non-reactive (NonReactive) 06/24/21 15:57 Hepatitis C Antibody Non-reactive (NonReactive) 06/24/21 15:57 Blood Type B POSITIVE 06/27/21 12:12 Antibody Screen Negative 06/27/21 12:12 Microbiology: Microbiology 06/23/21 08:27 Peripheral/Venous Blood Culture - Final NO GROWTH AFTER 5 DAYS 06/23/21 08:27 Peripheral/Venous Blood Culture - Final NO GROWTH AFTER 5 DAYS Roland/IV: Voiding Method Indwelling Catheter Active Medications - Current Medications Current Medications: Generic Name Dose Route Start Last Admin Trade Name Freq PRN Reason Stop Dose Admin Acetaminophen 650 mg 06/07/21 21:41 06/24/21 11:45 Acetaminophen 325 Mg Tab PO 650 mg Q4H PRN Administration Pain MILD(1-3)/Fever >100.5/MARTÍNEZ Albumin Human 25 gm 06/24/21 14:55 06/27/21 17:47 Albumin Human 25% (25 Gm/100 Ml) Inj IV 25 gm KORINA PRN Administration Hypotension Albuterol 2 mg 06/23/21 09:00 Albuterol 2.5 Mg/3 Ml Nebu IH Q4HRT PRN Shortness Of Breath Lipase/Protease/Amylase 1 each 06/28/21 12:15 Lipase 10,500/Protease 25,000/Amylase 43,750 (Units) Dr Barahona FEEDTUBE PRN PRN For Clogged Feeding Tube Ascorbic Acid 500 mg 06/22/21 22:00 06/28/21 10:33 Ascorbic Acid 500 Mg Tab PO 500 mg BID LEONOR Administration Atorvastatin Calcium 10 mg 06/08/21 10:00 06/28/21 10:33 Atorvastatin 10 Mg Tab PO 10 mg DAILY LEONOR Administration Dextrose 50 ml 06/08/21 12:04 06/20/21 12:16 Dextrose 50% In Water (25gm) 50 Ml Syringe IV 50 ml Q30MIN PRN Administration Hypoglycemia Protocol Famotidine 10 mg 06/22/21 22:00 06/28/21 10:32 Famotidine 20 Mg/2 Ml Inj IV 10 mg BID LEONOR Administration Fentanyl 50 mcg 06/22/21 13:07 06/28/21 08:17 Fentanyl 100 Mcg/2 Ml Inj IV 50 mcg Q10MIN PRN Administration ANALGESIA Hydrophilic Ointment 1 applic 06/22/21 13:07 Lip Therapy Vaseline TP Q2HR PRN Dry Lips Fentanyl Citrate 2,000 mcg in 100 mls @ 8.2 mls/hr 06/22/21 14:00 06/28/21 15:50 Fentanyl Drip Premix IV 4 mcg/kg/hr TITR LEONOR 32.8 mls/hr Administration Protocol 1 MCG/KG/HR NORepinephrine/NS 8 MG-250 ML 8 mg in 250 mls @ 3.75 mls/hr 06/22/21 15:00 06/27/21 19:29 Norepinephrine/Ns 8 Mg-250 Ml (Double Conc) IV 0 mcg/min TITRATE LEONOR 0 mls/hr Titration Protocol 2 MCG/MIN Cefepime HCl 2 gm in 100 mls @ 200 mls/hr 06/23/21 08:00 06/28/21 10:28 Cefepime/Ns 2 Gm/100 Ml IV 06/29/21 08:29 200 mls/hr Q24H LEONOR Administration Protocol Vasopressin 20 unit/ Sodium 101 mls @ 9.09 mls/hr 06/23/21 09:00 06/25/21 16:25 Chloride IV 0 units/min TITR LEONOR 0 mls/hr Titration Protocol 0.03 UNITS/MIN Sodium Chloride 500 mls @ 1 mls/hr 06/23/21 11:19 Nacl 0.9% 500 Ml IV DIRECT PRN ARTERIAL LINE FLUSH Lacosamide 100 mg/ Sodium 110 mls @ 100 mls/hr 06/23/21 15:00 06/28/21 15:50 Chloride IV 100 mls/hr Q12H LEONOR Administration Sodium Chloride 500 mls @ 0 mls/hr 06/28/21 09:00 Nacl 0.9% 500 Ml IV 06/28/21 18:00 ONCE@0900 LEONOR As Directed Diltiazem HCl 100 mg in 100 mls @ 7.5 mls/hr 06/28/21 10:15 06/28/21 12:46 Cardizem/D5w 100mg/100ml IV 5 mg/hr TITR LEONOR 5 mls/hr Titration Protocol 7.5 MG/HR Sodium Chloride 100 mls @ 999 mls/hr 06/28/21 16:00 Nacl 0.9% IV KORINA PRN Hypotension Insulin Human Isoph/Insulin Regular 30 unit 06/28/21 10:30 06/28/21 10:37 Insulin Nph/Regular 70/30 Inj SUB-Q 30 unit TID LEONOR Administration Insulin Human Regular 0 units 06/22/21 18:00 06/28/21 12:27 Insulin Regular, Human 100 Units/1 Ml SUB-Q 6 units Q6HR LEONOR Administration Protocol Levothyroxine Sodium 137.5 mcg 06/23/21 06:00 06/28/21 05:04 Levothyroxine 100 Mcg Inj IV 137.5 mcg DAILY@0600 LEONOR Administration Methylprednisolone Sodium Succinate 100 mg 06/28/21 08:00 06/28/21 10:32 Methylprednisolone Sod Succinate 125 Mg/2 Ml Inj IV 100 mg Q12H LEONOR Administration Metoclopramide HCl 5 mg 06/27/21 14:00 06/28/21 15:50 Metoclopramide 10 Mg/2 Ml Inj IV 06/29/21 13:59 5 mg Q8HR LEONOR Administration Midazolam HCl 5 mg 06/26/21 16:00 Midazolam 5 Mg/5 Ml Inj Mdv IV 07/06/21 23:59 PRN NR Midodrine 10 mg 06/22/21 15:00 06/28/21 08:24 Midodrine 5 Mg Tab PO Not Given Q8H LEONOR Multi-Ingred Cream/Lotion/Oil/Oint 1 applic 06/22/21 13:07 Mineral Oil/Petrolatum, White Ophth Oint 3.5 Gm OU Q4HR PRN Dry Eye(s) Ondansetron HCl 4 mg 06/07/21 21:41 06/20/21 22:15 Ondansetron 4 Mg/2 Ml Inj IV 4 mg Q8H PRN Administration Nausea And Vomiting Polyethylene Glycol 17 gm 06/27/21 13:16 Polyethylene Glycol 3350 17 Gm Powder PO QDAY PRN Constipation Senna/Docusate Sodium 1 tab 06/22/21 22:00 06/28/21 10:33 Sennosides/Docusate Sodium 8.6/50 Mg Tab FEEDTUBE 1 tab BID LEONOR Administration Simple Syrup 15 ml 06/28/21 12:15 Simple Syrup 15 Ml FEEDTUBE PRN PRN Hypoglycemia Simple Syrup 30 ml 06/28/21 12:15 Simple Syrup 15 Ml FEEDTUBE PRN PRN Hypoglycemia Sodium Bicarbonate 325 mg 06/28/21 12:15 Sodium Bicarbonate 325 Mg Tab FEEDTUBE PRN PRN For Clogged Feeding Tube Sodium Chloride 10 ml 06/07/21 22:00 06/28/21 10:37 Sodium Chloride 0.9% 10 Ml Flush Syringe IV 10 ml BID LEONOR Administration Sodium Chloride 10 ml 06/07/21 21:41 Sodium Chloride 0.9% 10 Ml Flush Syringe IV PRN PRN LINE FLUSH Zinc Sulfate 220 mg 06/22/21 22:00 06/28/21 10:33 Zinc Sulfate 220 Mg Cap PO 220 mg BID LEONOR Administration Nutrition/Malnutrition Assess - Dietary Evaluation Nutrition/Malnutrition Findings: Nutrition Notes Start: 06/08/21 10:56 Freq: Status: Active Protocol: Document 06/28/21 11:35 GB (Rec: 06/28/21 12:13 SOWMYA [id number]) Nutrition Notes Initial or Follow up Reassessment Current Diagnosis Acute Kidney Injury,Diabetes Other Pertinent Diagnosis Pneumonia/COVID-19, hypothyroidism. Current Diet Tube feeding - Nepro goal 50ml /hr Labs/Tests 06/28: Na 136, BUN 79, creatinine 4.8, glucose 301, P 6.8 showing improvement Pertinent Medications Vit C, D5 PRN, fentanyl citrate, Norepenephrine/Ns 8 - Mg 250, Zn Sulfate Height 5 ft 11 in Weight 190.4 kg Randall Body Weight (kg) 70.45 BMI 58.5 Weight change and time frame 06/24: 164.654kg 06/27: 190.4 kg change of +25.7kg for +15.6% significance Weight Status Morbidly Obese Subjective/Other Information MD note 06/27: HD on 06/27, renal labs declining, high residual TF held, begin weaning steroids BM: no bowel movement RECOMMEND: CHANGE TF TO 20ML/ HR UNTIL BM OCCURS, gradually increase back to goal. Percent of energy/protein needs met: Prescribed Tube feeding diet meets 75-100% energy/protein needs. Burn Absent Trauma Absent GI Symptoms Constipation Difficulty In Swallowing Food Allergy Yes Skin Integrity/Comment N/A Current % PO Other Minimum of two criteria No physical signs of malnutrition #1 Nutrition Diagnosis Inadequate energy intake Comments: 06/28: Hypo-active bowels, no movement Etiology COVID=19/pneumonia As Evidenced by Signs and Symptoms Fair tolerance to food, intake of meals between 0-25%. 06/28: intubated/sedated/on TF Diagnosis Progress(for reassessment Continues documentation) Is patient on ventilator? Yes Is Patient Ambulatory and/or Out of Bed No REE-([facility]-confined to bed) 3087.624 Kcal/Kg value to use for calculation 13 Approximate Energy Requirements Using 2475 kcal/Kg Additional Notes Protein: up to 0.7 g/Kg/day @ 164kg: up to 114g Fluids: 1.0 ml/Kcal, or as per MD. Nutrition Intervention Change Diet Order: NPO continue Nutrition Support: Nepro @ 50ml/hr Flush; 150ml every 4 hrs. or as per MD. Run TF at 20ml/hr until BM occurs (no bowel movement, +15% wt gain) Kcal 2,160 Protein (gm) 97 Carbohydrates (gm) 160 Fat (gm) 115 Fluid (mL) 872 Goal #1 Maintain body weight within +/ -3% of actual BWt during LOS. 06/28: not met, +15% r/t no bowel movement, poor renal function, compromised GI function Goal #2 Tolerate TF at goal rate of 50ml/hr during LOS 06/28: high residuals on 06/27 , no bowel movement Goal #3 Nutritional related labs to improve toward acceptable ranges during LOS. 06/28: continues Follow-Up By: 07/01/21 Additional Comments Nepro at minimal rate 20ml/hr. Flush 150/4hr. until BM occurs. Run at minimal rate x3 days.
[2021-06-29] MEDS: fentaNYL DRIP Premix 2,000 MCG/100 ML BAG IV SCH ×7 (02:29→22:43)
[2021-06-29] MEDS: fentaNYL 100 MCG/2 ML INJ IV PRN ×2 (02:32→09:40)
[2021-06-29] MEDS: LACOSAMIDE 100 MG in SODIUM CHLORIDE 0.9% 100 ML IV SCH ×2 (03:56→15:04)
[2021-06-29 04:53] LABS: Hematocrit 29.4 % (30.3-42.9); Hemoglobin 9.5 gm/dl (10.1-14.3); Mean Corpuscular HGB Conc 32 % (30-34); Mean Corpuscular Volume 88 fl (79-97); Red Blood Count 3.35 M/mm3 (3.65-5.03); Red Cell Distribution Width 16.1 % (13.2-15.2)
[2021-06-29 04:57] LABS: Platelet Count 45 K/mm3 (140-440)
[2021-06-29 05:19] LABS: Albumin 3.3 g/dL (3.9-5); Calcium 8.1 mg/dL (8.4-10.2)
[2021-06-29] MEDS: METOCLOPRAMIDE 10 MG/2 ML INJ IV SCH ×3 (06:32→22:12)
[2021-06-29] MEDS: LEVOTHYROXINE 100 MCG INJ IV SCH (06:32)
[2021-06-29] MEDS: INSULIN REGULAR, HUMAN 100 UNITS/1 ML SUB-Q SCH ×3 (06:33→17:47)
[2021-06-29] MEDS: CEFEPIME/NS 2 GM/100 ML 2 GM/100 ML BAG IV SCH (09:32)
[2021-06-29] MEDS: SENNOSIDES/DOCUSATE SODIUM 8.6/50 MG TAB FEEDTUBE SCH ×2 (09:34→22:13)
[2021-06-29] MEDS: ASCORBIC ACID 500 MG TAB PO SCH ×2 (09:34→22:13)
[2021-06-29] MEDS: ZINC SULFATE 220 MG CAP PO SCH ×2 (09:34→22:13)
[2021-06-29] MEDS: FAMOTIDINE 20 MG/2 ML INJ IV SCH ×2 (09:35→22:12)
[2021-06-29] MEDS: INSULIN NPH/REGULAR 70/30 INJ SUB-Q SCH ×3 (09:35→18:01)
[2021-06-29] MEDS: methylPREDNISolone Sod Succinate 125 MG/2 ML INJ IV SCH ×2 (09:35→17:44)
[2021-06-29] MEDS ORDERED: SODIUM CHLORIDE 0.9% 500 ML 500 ML IV NR (10:00)
[2021-06-29] MEDS ORDERED: dilTIAZem 25 MG/5 ML INJ IV SCH (11:15)
[2021-06-29] MEDS: MIDODRINE 5 MG TAB PO SCH ×4 (12:38→22:13)
--- NOTE | 2021-06-29 12:53 | Progress Note ---
Assessment and Plan Patient is a 61 y/o female with a PMHx of HTN, hypothyroidism, CKD III, H/o DVT Acute hypoxic Respiratory failure Sepsis Breakthrough COVID PNA * Patient vaccinated with Memo and Memo * Patient intubated * COVID PCR positive * ID following * Pulmonlogy following Afib w/RVR Elevated troponins * Troponins minimally elevated and trending down 0.043->0.031. In setting of Sepsis secondary to PNA * Lexiscan MPI stress -11/03/2019-EF (30-39%), Stress/ECG changes are normal. This study suggests an intermediate risk for cardiovascular event and is associated with a cardiac mortality of 1-3% per year. There is a moderate defect of moderate intensity present in the basal anterior and mid anterior location. The defect is non-reversible (fixed). There is a moderate defect of moderate intensity present in the basal anteroseptal and mid anteroseptal location. The defect is non-reversible (fixed). There is a moderate defect of moderate intensity present in the apex location. The defect is non-reversible (fixed). * Echo 06/07/2021-EF 50 to 55%, right ventricle not well visualized, right ventricle systolic function is normal, left atrium is normal in size, right atrium is not well visualized, pulmonic valve not well visualized. * Telemetry reviewed: afib 110s. * Currently on diltiazem gtt TREMAINE * Nephrology following Thrombocytopenia * Hem/Onc following Plan: Continue holding anticoagulation ue to trhombocytopenia Recommend additional cardizem bolus and titrate cardizem gtt to 12.5ml/hr. Continue to titrate for HR and BP control If residuals from NG tube improve and rate is better controlled will transition to PO cardizem. Patient seen in conjunction with Dr. Sam who agrees with this plan of care. Will continue to follow - Patient Problems (1) Acute respiratory failure with hypoxia Current Visit: Yes Status: Acute (2) Acute kidney injury superimposed on CKD Current Visit: No Status: Acute (3) Elevated troponin Current Visit: No Status: Acute (4) History of DVT (deep vein thrombosis) Current Visit: No Status: Acute (5) Diabetes mellitus type 2, insulin dependent Current Visit: No Status: Chronic (6) Hypothyroidism Current Visit: No Status: Chronic (7) Morbid obesity Current Visit: No Status: Chronic (8) TREMAINE (acute kidney injury) Current Visit: Yes Status: Acute (9) Pneumonia due to COVID-19 virus Current Visit: Yes Status: Acute (10) Leukocytosis (leucocytosis) Current Visit: No Status: Acute Qualifiers: Leukocytosis type: bandemia Qualified Code(s): D72.825 - Bandemia Subjective Date of service: 06/29/21 Principal diagnosis: ARDS; Pneumonia; COVID-19 virus infection; TREMAINE; DM II; M orbid obesity Interval history: Patient remains intubated and sedated afib 110-120s on monitor Objective Vital Signs Temp Pulse Pulse Resp BP Pulse Ox Pulse Ox 06/29/21 12:30 78 108/58 06/29/21 12:15 90 112/64 06/29/21 12:00 116 H 30 H 100/55 91 06/29/21 11:45 78 103/57 06/29/21 11:30 105 H 95/54 06/29/21 11:15 84 91/52 06/29/21 11:01 136 H 30 H 92/57 88 06/29/21 11:00 104 H 92/57 06/29/21 10:45 121 H 115/70 06/29/21 10:34 121 H 164/87 06/29/21 10:30 97.8 F 122 H 13 165/81 88 06/29/21 10:00 128 H 29 H 150/79 91 06/29/21 09:12 100 H 113/63 94 06/29/21 09:00 122 H 30 H 121/68 94 06/29/21 08:07 98.1 F 06/29/21 08:00 103 H 100 H 30 H 113/63 95 06/29/21 07:00 121 H 30 H 133/71 92 06/29/21 06:00 125 H 30 H 128/74 91 06/29/21 05:00 114 H 30 H 116/58 91 06/29/21 04:01 117 H 30 H 126/69 88 06/29/21 04:00 97.8 F 105 H 93 H 98 06/29/21 03:00 130 H 30 H 149/75 89 06/29/21 02:54 122 H 110/60 88 06/29/21 02:00 118 H 30 H 114/66 87 06/29/21 01:00 125 H 29 H 132/63 84 06/29/21 00:00 97.8 F 125 H 94 H 31 H 160/82 86 06/28/21 23:00 119 H 25 H 159/93 85 06/28/21 22:08 120 H 113/62 88 06/28/21 22:00 122 H 30 H 118/73 84 06/28/21 21:00 125 H 29 H 134/67 83 L 06/28/21 20:06 97.6 F 06/28/21 20:00 124 H 112 H 25 H 172/84 82 L 06/28/21 19:00 121 H 30 H 151/85 86 06/28/21 18:01 128 H 29 H 157/81 83 L 06/28/21 17:53 115 H 182/90 88 06/28/21 17:45 127 H 29 H 177/99 85 06/28/21 17:00 119 H 26 H 180/89 88 06/28/21 16:04 97.7 F 06/28/21 16:00 85 98 H 30 H 93/57 98 06/28/21 15:01 79 29 H 97/53 96 06/28/21 14:00 96 H 30 H 98/58 95 06/28/21 13:15 89 30 H 107/61 95 06/28/21 13:00 109 H 30 H 112/55 95 - Physical Examination General: Other (intubated and sedated) HEENT: Positive: PERRL Neck: Positive: trachea midline Cardiac: Positive: irregularly irregular Lungs: Positive: Ventilated Respirations Neuro: Positive: Other (intubated and sedated) Abdomen: Positive: Soft, Active Bowel Sounds Skin: Negative: Rash, Suspicious Lesions, Ulceration Extremities: Present: upper extr. pulses, lower extr. pulses. Absent: edema - Labs and Meds Cardiac Enzymes 06/29/21 Range/Units 04:34 AST 22 (5-40) units/L CBC 06/29/21 Range/Units 04:34 WBC 12.0 H (4.5-11.0) K/mm3 RBC 3.35 L (3.65-5.03) M/mm3 Hgb 9.5 L (10.1-14.3) gm/dl Hct 29.4 L (30.3-42.9) % Plt Count 45 L (140-440) K/mm3 Comprehensive Metabolic Panel 06/29/21 Range/Units 04:34 Sodium 138 (137-145) mmol/L Potassium 5.2 H (3.6-5.0) mmol/L Chloride 95.8 L (98-107) mmol/L Carbon Dioxide 23 (22-30) mmol/L BUN 97 H (7-17) mg/dL Creatinine 5.6 H (0.6-1.2) mg/dL Glucose 184 H (65-100) mg/dL Calcium 8.1 L (8.4-10.2) mg/dL AST 22 (5-40) units/L ALT 23 (7-56) units/L Alkaline Phosphatase 132 H (35-129) units/L Total Protein 6.0 L (6.3-8.2) g/dL Albumin 3.3 L (3.9-5) g/dL - Imaging and Cardiology EKG: report reviewed Echo: report reviewed - EKG Sinus rhythms and dysrhythmias: sinus rhythm - Allied health notes Allied health notes reviewed: nursing
[2021-06-29] MEDS: dilTIAZem/D5W 100 MG/100 ML BAG IV SCH ×2 (12:58→22:44)
--- NOTE | 2021-06-29 13:12 | Progress Note ---
Assessment and Plan Acute hypoxemic respiratory failure (ARDS) Coronavirus infection Pneumonia due to COVID-19 virus Acute kidney injury superimposed on CKD Hypertension Diabetes mellitus type 2, insulin dependent Hypothyroidism Morbid obesity - continue current vent settings and compensatory hyperventilation - follow HIT assay - continue HD/UF per nephrology prescription for toxin and volume clearance - continue care as below otherwise; - continue Keppra 500 mg IV q12h - follow EEG - neurology evaluation ongoing - continue to wean vaspressors for target MAP > 65 mmHg - continue daily SAT and SBT assessment as tolerated - continue to wean supplemental oxygen for target O2 sat's > 90% acutely - VAP bundle addressed - continue lung protective strategies - continue bronchodilators with pulmonary hygiene per RT - wean per pulmonary driven protocols otherwise - azotemia per nephrology recommendations - avoid nephrotoxins, renally dose all medications - continue to avoid benzodiazepine's, reduce the possibility of delirium - anti-infective's per ID rec's - prn analgesia per CPOT score - Maintenance of sleep-wake cycle, avoid delirium - enteral nutritional support at goal rate as tolerated - G.I. & VTE prophylaxis - PT/OT/ROM exercises - mobility protocols for pressure ulcer prophylaxis - Monitor hemodynamics closely - continue other care per attending / other consultants - discharge planning ongoing concurrently COVID SPECIFIC INTERVENTIONS - Remdesivir as per ID/Pulmonary developed protocols (not a candidate) - continue systemic steroids for severe COVID-19 infection empirically (will taper to 60 mg IV q8h) - follow repeat COVID tests results - zinc and vitamin C supplementation - Monitor inflammatory markers per facility protocol - ferritin, Ddimer, CRP - therapeutic anticoagulation per system Protocol based on d-dimer and clinical considerations - Continue contact and airborne isolation .... Re-evaluate in am & prn CONDITION: CRITICAL PROGNOSIS: GUARDED CODE STATUS: FULL CODE The high probability of a clinically significant, sudden or life-threatening deterioration of the [respiratory, cardiovascular, renal & neurologic] system(s) required my full and direct attention, intervention and personal management. The aggregate critical care time was [35] minutes without overlap. Time includes spent on; [x] Data Review and interpretation [x] Patient assessment and monitoring of vital signs [x] Documentation [x] Medication orders and management Subjective Date of service: 06/29/21 Principal diagnosis: ARDS; Pneumonia; COVID-19 virus infection; TREMAINE; DM II; Morbid obesity Interval history: Patient is seen today for: Acute hypoxemic respiratory failure (ARDS); Pneumonia; COVID-19 virus infection; TREMAINE on CKD; DM II; Morbid obesity Seen and examined at bedside; 24hour events reviewed; nursing and respiratory c are staff consulted; no adverse overnight events reported to me; resting in bed; AMS is persistent; Objective Vital Signs - 12hr 06/29/21 06/29/21 06/29/21 02:00 02:54 03:00 Temperature Pulse Rate 118 H 122 H 130 H Pulse Rate [ From Monitor] Respiratory 30 H 30 H Rate Blood Pressure 114/66 110/60 149/75 O2 Sat by Pulse 87 88 89 Oximetry O2 Sat by Pulse Oximetry [ Anterior Bilateral Throughout] 06/29/21 06/29/21 06/29/21 04:00 04:01 05:00 Temperature 97.8 F Pulse Rate 105 H 117 H 114 H Pulse Rate [ 93 H From Monitor] Respiratory 30 H 30 H Rate Blood Pressure 126/69 116/58 O2 Sat by Pulse 98 88 91 Oximetry O2 Sat by Pulse Oximetry [ Anterior Bilateral Throughout] 06/29/21 06/29/21 06/29/21 06:00 07:00 08:00 Temperature Pulse Rate 125 H 121 H 103 H Pulse Rate [ 100 H From Monitor] Respiratory 30 H 30 H 30 H Rate Blood Pressure 128/74 133/71 113/63 O2 Sat by Pulse 91 92 95 Oximetry O2 Sat by Pulse Oximetry [ Anterior Bilateral Throughout] 06/29/21 06/29/21 06/29/21 08:07 09:00 09:12 Temperature 98.1 F Pulse Rate 122 H 100 H Pulse Rate [ From Monitor] Respiratory 30 H Rate Blood Pressure 121/68 113/63 O2 Sat by Pulse 94 94 Oximetry O2 Sat by Pulse Oximetry [ Anterior Bilateral Throughout] 06/29/21 06/29/21 06/29/21 10:00 10:30 10:34 Temperature 97.8 F Pulse Rate 128 H 122 H 121 H Pulse Rate [ From Monitor] Respiratory 29 H 13 Rate Blood Pressure 150/79 165/81 164/87 O2 Sat by Pulse 91 Oximetry O2 Sat by Pulse 88 Oximetry [ Anterior Bilateral Throughout] 06/29/21 06/29/21 06/29/21 10:45 11:00 11:01 Temperature Pulse Rate 121 H 104 H 136 H Pulse Rate [ From Monitor] Respiratory 30 H Rate Blood Pressure 115/70 92/57 92/57 O2 Sat by Pulse 88 Oximetry O2 Sat by Pulse Oximetry [ Anterior Bilateral Throughout] 06/29/21 06/29/21 06/29/21 11:15 11:30 11:45 Temperature Pulse Rate 84 105 H 78 Pulse Rate [ From Monitor] Respiratory Rate Blood Pressure 91/52 95/54 103/57 O2 Sat by Pulse Oximetry O2 Sat by Pulse Oximetry [ Anterior Bilateral Throughout] 06/29/21 06/29/21 06/29/21 12:00 12:15 12:30 Temperature Pulse Rate 116 H 90 78 Pulse Rate [ 116 H From Monitor] Respiratory 30 H Rate Blood Pressure 100/55 112/64 108/58 O2 Sat by Pulse 91 Oximetry O2 Sat by Pulse Oximetry [ Anterior Bilateral Throughout] 06/29/21 06/29/21 06/29/21 12:45 12:48 12:54 Temperature Pulse Rate 94 H 129 H 129 H Pulse Rate [ From Monitor] Respiratory Rate Blood Pressure 123/60 123/60 123/60 O2 Sat by Pulse 95 Oximetry O2 Sat by Pulse Oximetry [ Anterior Bilateral Throughout] 06/29/21 13:00 Temperature Pulse Rate 118 H Pulse Rate [ From Monitor] Respiratory 30 H Rate Blood Pressure 108/56 O2 Sat by Pulse 94 Oximetry O2 Sat by Pulse Oximetry [ Anterior Bilateral Throughout] Constitutional: appears uncomfortable, other (Morbidly Obese female with mildly increased work of breathing on MVS) Eyes: non-icteric ENT: oropharynx moist, other (ETT 24 cm SHEREEN) Neck: supple, no lymphadenopathy, other (large neck circumference) Effort: mildly labored Ascultation: Bilateral: diminished breath sounds, rhonchi Percussion: Bilateral: not dull Cardiovascular: regular rate and rhythm Gastrointestinal: normoactive bowel sounds, soft, non-tender, non-distended (protuberant) Integumentary: rash (stasis dermatitis- type) Extremities: no cyanosis, no edema, pulses normal, no ischemia or petechiae Neurologic: non-focal exam (grossly), pupils equal and round, unable to assess Psychiatric: other (unable to assess re: AMS) CBC and BMP: 07/02/21 07:47 07/02/21 23:25 ABG, PT/INR, D-dimer: ABG ABG pH 7.230 pH Units (7.350-7.450) L 06/27/21 Unknown POC ABG pCO2 60.1 mmHg (32.0-48.0) H 06/27/21 21:00 ABG pCO2 64.0 mm Hg 06/27/21 Unknown POC ABG pO2 83.2 mmHg (83-108) 06/27/21 21:00 ABG pO2 92.0 mm Hg (80.0-90.0) H 06/27/21 Unknown POC ABG HCO3 27.8 06/27/21 21:00 ABG O2 Saturation 96.8 % (95.0-99.0) 06/27/21 Unknown PT/INR, D-dimer PT 16.5 Sec. (12.2-14.9) H 06/28/21 04:25 INR 1.27 (0.87-1.13) H 06/28/21 04:25 D-Dimer 1363.54 ng/mlDDU (0-234) H 06/26/21 10:00 Abnormal lab findings: Abnormal Labs 06/07/21 06/07/21 06/07/21 19:11 19:11 19:11 WBC 11.5 H RBC Hgb Hct RDW Plt Count Lymph % (Auto) 6.5 L Lymph # (Auto) 0.8 L Seg Neutrophils % 89.9 H Seg Neuts % (Manual) Lymphocytes % (Manual) Nucleated RBC % Seg Neutrophils # 10.4 H Seg Neutrophils # Man Lymphocytes # (Manual) Monocytes # (Manual) PT INR APTT D-Dimer 5334.05 H ABG pH POC ABG pCO2 POC ABG pO2 ABG pO2 ABG HCO3 ABG O2 Saturation ABG Base Excess ABG Hemoglobin ABG Oxyhemoglobin ABG Methemoglobin ABG Sodium ABG Potassium ABG Chloride ABG Glucose Oxyhemoglobin Carboxyhemoglobin Sodium Potassium Chloride Carbon Dioxide BUN 67 H Creatinine 4.8 H Glucose 244 H POC Glucose Hemoglobin A1c Calcium Phosphorus Magnesium Ferritin Alkaline Phosphatase Lactate Dehydrogenase 796 H Troponin T 0.043 H C-Reactive Protein 19.60 H Total Protein 8.4 H Albumin 3.1 L Kawir-6-Kqishezjc Ehhmw-1-Ektcnvyrt Beta Globulins PEP Interpretation Triglycerides 209 H HDL Cholesterol 35 L Arterial Blood Glucose Arterial Blood Ionized Calcium Urine WBC (Auto) Coronavirus (PCR) 06/07/21 06/07/21 06/08/21 19:11 19:11 03:04 WBC RBC Hgb Hct RDW Plt Count Lymph % (Auto) Lymph # (Auto) Seg Neutrophils % Seg Neuts % (Manual) Lymphocytes % (Manual) Nucleated RBC % Seg Neutrophils # Seg Neutrophils # Man Lymphocytes # (Manual) Monocytes # (Manual) PT INR APTT D-Dimer ABG pH POC ABG pCO2 POC ABG pO2 ABG pO2 ABG HCO3 ABG O2 Saturation ABG Base Excess ABG Hemoglobin ABG Oxyhemoglobin ABG Methemoglobin ABG Sodium ABG Potassium ABG Chloride ABG Glucose Oxyhemoglobin Carboxyhemoglobin Sodium Potassium Chloride Carbon Dioxide BUN Creatinine Glucose POC Glucose Hemoglobin A1c 9.5 H Calcium Phosphorus Magnesium Ferritin 1230.0 H Alkaline Phosphatase Lactate Dehydrogenase Troponin T 0.031 H D C-Reactive Protein Total Protein Albumin Daueq-8-Tnqltxuxy Moxpq-7-Qvvusloln Beta Globulins PEP Interpretation Triglycerides HDL Cholesterol Arterial Blood Glucose Arterial Blood Ionized Calcium Urine WBC (Auto) Coronavirus (PCR) 06/08/21 06/08/21 06/08/21 03:44 03:44 08:21 WBC 12.9 H RBC Hgb Hct RDW Plt Count Lymph % (Auto) Lymph # (Auto) Seg Neutrophils % Seg Neuts % (Manual) 95.0 H Lymphocytes % (Manual) 3.0 L Nucleated RBC % Seg Neutrophils # Seg Neutrophils # Man 12.3 H Lymphocytes # (Manual) 0.4 L Monocytes # (Manual) PT INR APTT D-Dimer ABG pH POC ABG pCO2 POC ABG pO2 ABG pO2 ABG HCO3 ABG O2 Saturation ABG Base Excess ABG Hemoglobin ABG Oxyhemoglobin ABG Methemoglobin ABG Sodium ABG Potassium ABG Chloride ABG Glucose Oxyhemoglobin Carboxyhemoglobin Sodium Potassium Chloride Carbon Dioxide 20 L D BUN 68 H Creatinine 4.7 H Glucose 218 H POC Glucose 273 H Hemoglobin A1c Calcium Phosphorus Magnesium Ferritin Alkaline Phosphatase Lactate Dehydrogenase Troponin T C-Reactive Protein Total Protein Albumin 3.4 L Vllru-1-Fevlweggz Atxwz-6-Qwlrgnell Beta Globulins PEP Interpretation Triglycerides HDL Cholesterol Arterial Blood Glucose Arterial Blood Ionized Calcium Urine WBC (Auto) Coronavirus (PCR) 06/08/21 06/08/21 06/08/21 08:30 11:00 17:29 WBC RBC Hgb Hct RDW Plt Count Lymph % (Auto) Lymph # (Auto) Seg Neutrophils % Seg Neuts % (Manual) Lymphocytes % (Manual) Nucleated RBC % Seg Neutrophils # Seg Neutrophils # Man Lymphocytes # (Manual) Monocytes # (Manual) PT INR APTT D-Dimer ABG pH POC ABG pCO2 POC ABG pO2 ABG pO2 ABG HCO3 ABG O2 Saturation ABG Base Excess ABG Hemoglobin ABG Oxyhemoglobin ABG Methemoglobin ABG Sodium ABG Potassium ABG Chloride ABG Glucose Oxyhemoglobin Carboxyhemoglobin Sodium Potassium Chloride Carbon Dioxide BUN Creatinine Glucose POC Glucose 239 H 220 H Hemoglobin A1c Calcium Phosphorus Magnesium Ferritin Alkaline Phosphatase Lactate Dehydrogenase Troponin T C-Reactive Protein Total Protein Albumin Psdiy-7-Aevonblwo Eyvzy-2-Oqkvwwtvz Beta Globulins PEP Interpretation Triglycerides HDL Cholesterol Arterial Blood Glucose Arterial Blood Ionized Calcium Urine WBC (Auto) Coronavirus (PCR) Positive A 06/08/21 06/09/21 06/09/21 21:09 08:07 08:42 WBC 14.7 H RBC 5.28 H Hgb 14.9 H Hct 45.0 H D RDW Plt Count Lymph % (Auto) 4.9 L Lymph # (Auto) 0.7 L Seg Neutrophils % 90.0 H Seg Neuts % (Manual) Lymphocytes % (Manual) Nucleated RBC % Seg Neutrophils # 13.2 H Seg Neutrophils # Man Lymphocytes # (Manual) Monocytes # (Manual) PT INR APTT D-Dimer ABG pH POC ABG pCO2 POC ABG pO2 ABG pO2 ABG HCO3 ABG O2 Saturation ABG Base Excess ABG Hemoglobin ABG Oxyhemoglobin ABG Methemoglobin ABG Sodium ABG Potassium ABG Chloride ABG Glucose Oxyhemoglobin Carboxyhemoglobin Sodium Potassium Chloride Carbon Dioxide BUN Creatinine Glucose POC Glucose 242 H 230 H Hemoglobin A1c Calcium Phosphorus Magnesium Ferritin Alkaline Phosphatase Lactate Dehydrogenase Troponin T C-Reactive Protein Total Protein Albumin Zkcef-9-Roiammpms Bcile-1-Hrdbypxbg Beta Globulins PEP Interpretation Triglycerides HDL Cholesterol Arterial Blood Glucose Arterial Blood Ionized Calcium Urine WBC (Auto) Coronavirus (PCR) 06/09/21 06/09/21 06/09/21 08:42 12:05 12:19 WBC RBC Hgb Hct RDW Plt Count Lymph % (Auto) Lymph # (Auto) Seg Neutrophils % Seg Neuts % (Manual) Lymphocytes % (Manual) Nucleated RBC % Seg Neutrophils # Seg Neutrophils # Man Lymphocytes # (Manual) Monocytes # (Manual) PT INR APTT D-Dimer ABG pH POC ABG pCO2 POC ABG pO2 71.4 L ABG pO2 ABG HCO3 ABG O2 Saturation ABG Base Excess ABG Hemoglobin ABG Oxyhemoglobin 92.9 L ABG Methemoglobin ABG Sodium ABG Potassium ABG Chloride 109.0 H ABG Glucose 287 H Oxyhemoglobin Carboxyhemoglobin 0.4 L Sodium Potassium Chloride Carbon Dioxide 17 L BUN 74 H Creatinine 3.7 H Glucose 259 H POC Glucose 274 H Hemoglobin A1c Calcium 8.3 L Phosphorus Magnesium Ferritin Alkaline Phosphatase Lactate Dehydrogenase Troponin T C-Reactive Protein Total Protein Albumin Xwltj-4-Avzeqecou Xfjhh-1-Uwsnlfndy Beta Globulins PEP Interpretation Triglycerides HDL Cholesterol Arterial Blood Glucose 287 H Arterial Blood Ionized Calcium Urine WBC (Auto) Coronavirus (PCR) 06/09/21 06/09/21 06/10/21 16:59 21:06 08:25 WBC RBC Hgb Hct RDW Plt Count Lymph % (Auto) Lymph # (Auto) Seg Neutrophils % Seg Neuts % (Manual) Lymphocytes % (Manual) Nucleated RBC % Seg Neutrophils # Seg Neutrophils # Man Lymphocytes # (Manual) Monocytes # (Manual) PT INR APTT D-Dimer ABG pH POC ABG pCO2 POC ABG pO2 ABG pO2 ABG HCO3 ABG O2 Saturation ABG Base Excess ABG Hemoglobin ABG Oxyhemoglobin ABG Methemoglobin ABG Sodium ABG Potassium ABG Chloride ABG Glucose Oxyhemoglobin Carboxyhemoglobin Sodium Potassium Chloride Carbon Dioxide BUN Creatinine Glucose POC Glucose 268 H 263 H 280 H Hemoglobin A1c Calcium Phosphorus Magnesium Ferritin Alkaline Phosphatase Lactate Dehydrogenase Troponin T C-Reactive Protein Total Protein Albumin Pchri-4-Llnipmsbb Ansyv-3-Kxfkgaojy Beta Globulins PEP Interpretation Triglycerides HDL Cholesterol Arterial Blood Glucose Arterial Blood Ionized Calcium Urine WBC (Auto) Coronavirus (PCR) 06/10/21 06/10/21 06/10/21 12:07 15:38 21:04 WBC RBC Hgb Hct RDW Plt Count Lymph % (Auto) Lymph # (Auto) Seg Neutrophils % Seg Neuts % (Manual) Lymphocytes % (Manual) Nucleated RBC % Seg Neutrophils # Seg Neutrophils # Man Lymphocytes # (Manual) Monocytes # (Manual) PT INR APTT D-Dimer ABG pH POC ABG pCO2 POC ABG pO2 ABG pO2 ABG HCO3 ABG O2 Saturation ABG Base Excess ABG Hemoglobin ABG Oxyhemoglobin ABG Methemoglobin ABG Sodium ABG Potassium ABG Chloride ABG Glucose Oxyhemoglobin Carboxyhemoglobin Sodium Potassium Chloride Carbon Dioxide BUN Creatinine Glucose POC Glucose 247 H 269 H 195 H Hemoglobin A1c Calcium Phosphorus Magnesium Ferritin Alkaline Phosphatase Lactate Dehydrogenase Troponin T C-Reactive Protein Total Protein Albumin Cmarv-6-Vbymayfkc Nnnim-3-Mfeqzbxhx Beta Globulins PEP Interpretation Triglycerides HDL Cholesterol Arterial Blood Glucose Arterial Blood Ionized Calcium Urine WBC (Auto) Coronavirus (PCR) 06/10/21 06/10/21 06/10/21 23:14 23:14 23:14 WBC RBC Hgb Hct RDW 15.3 H Plt Count Lymph % (Auto) Lymph # (Auto) Seg Neutrophils % Seg Neuts % (Manual) 93.0 H Lymphocytes % (Manual) 2.0 L Nucleated RBC % 3.0 H Seg Neutrophils # Seg Neutrophils # Man 10.2 H Lymphocytes # (Manual) 0.2 L Monocytes # (Manual) PT INR APTT D-Dimer ABG pH POC ABG pCO2 POC ABG pO2 ABG pO2 ABG HCO3 ABG O2 Saturation ABG Base Excess ABG Hemoglobin ABG Oxyhemoglobin ABG Methemoglobin ABG Sodium ABG Potassium ABG Chloride ABG Glucose Oxyhemoglobin Carboxyhemoglobin Sodium 148 H D Potassium Chloride 111.7 H Carbon Dioxide 20 L BUN 70 H Creatinine 3.2 H Glucose 186 H POC Glucose Hemoglobin A1c Calcium Phosphorus Magnesium Ferritin Alkaline Phosphatase Lactate Dehydrogenase Troponin T C-Reactive Protein Total Protein Albumin 2.6 L Xlzoe-4-Lbtccuusm 0.5 H Tyqhx-7-Zdkkfelvz 1.7 H Beta Globulins 0.6 H PEP Interpretation see below H Triglycerides HDL Cholesterol Arterial Blood Glucose Arterial Blood Ionized Calcium Urine WBC (Auto) Coronavirus (PCR) 06/10/21 06/10/21 06/10/21 23:14 23:14 23:14 WBC RBC Hgb Hct RDW Plt Count Lymph % (Auto) Lymph # (Auto) Seg Neutrophils % Seg Neuts % (Manual) Lymphocytes % (Manual) Nucleated RBC % Seg Neutrophils # Seg Neutrophils # Man Lymphocytes # (Manual) Monocytes # (Manual) PT INR APTT D-Dimer > 60008 H ABG pH POC ABG pCO2 POC ABG pO2 ABG pO2 ABG HCO3 ABG O2 Saturation ABG Base Excess ABG Hemoglobin ABG Oxyhemoglobin ABG Methemoglobin ABG Sodium ABG Potassium ABG Chloride ABG Glucose Oxyhemoglobin Carboxyhemoglobin Sodium Potassium Chloride Carbon Dioxide BUN Creatinine Glucose POC Glucose Hemoglobin A1c Calcium Phosphorus Magnesium 2.50 H Ferritin 1319.0 H Alkaline Phosphatase Lactate Dehydrogenase 606 H Troponin T C-Reactive Protein Total Protein Albumin Qervh-8-Oztjiwfoa Muyxu-0-Yrqtwvehk Beta Globulins PEP Interpretation Triglycerides HDL Cholesterol Arterial Blood Glucose Arterial Blood Ionized Calcium Urine WBC (Auto) Coronavirus (PCR) 06/11/21 06/11/21 06/11/21 07:34 10:57 10:57 WBC RBC Hgb Hct RDW Plt Count Lymph % (Auto) Lymph # (Auto) Seg Neutrophils % Seg Neuts % (Manual) Lymphocytes % (Manual) Nucleated RBC % Seg Neutrophils # Seg Neutrophils # Man Lymphocytes # (Manual) Monocytes # (Manual) PT INR APTT D-Dimer > 63318 H ABG pH POC ABG pCO2 POC ABG pO2 ABG pO2 ABG HCO3 ABG O2 Saturation ABG Base Excess ABG Hemoglobin ABG Oxyhemoglobin ABG Methemoglobin ABG Sodium ABG Potassium ABG Chloride ABG Glucose Oxyhemoglobin Carboxyhemoglobin Sodium Potassium Chloride Carbon Dioxide BUN Creatinine Glucose POC Glucose 169 H Hemoglobin A1c Calcium Phosphorus Magnesium Ferritin 1300.0 H Alkaline Phosphatase Lactate Dehydrogenase Troponin T C-Reactive Protein Total Protein Albumin Pqiel-6-Znkortfpa Oicvz-7-Dbmamhnlr Beta Globulins PEP Interpretation Triglycerides HDL Cholesterol Arterial Blood Glucose Arterial Blood Ionized Calcium Urine WBC (Auto) Coronavirus (PCR) 06/11/21 06/11/21 06/11/21 10:58 10:58 11:49 WBC 11.3 H RBC Hgb Hct RDW 15.3 H Plt Count Lymph % (Auto) Lymph # (Auto) Seg Neutrophils % Seg Neuts % (Manual) 88.0 H Lymphocytes % (Manual) 6.0 L Nucleated RBC % Seg Neutrophils # Seg Neutrophils # Man 9.9 H Lymphocytes # (Manual) 0.7 L Monocytes # (Manual) PT INR APTT D-Dimer ABG pH POC ABG pCO2 POC ABG pO2 ABG pO2 ABG HCO3 ABG O2 Saturation ABG Base Excess ABG Hemoglobin ABG Oxyhemoglobin ABG Methemoglobin ABG Sodium ABG Potassium ABG Chloride ABG Glucose Oxyhemoglobin Carboxyhemoglobin Sodium 150 H Potassium 3.4 L Chloride 114.8 H Carbon Dioxide 21 L BUN 65 H Creatinine 2.9 H Glucose 180 H POC Glucose 191 H Hemoglobin A1c Calcium Phosphorus Magnesium 2.50 H Ferritin Alkaline Phosphatase Lactate Dehydrogenase Troponin T C-Reactive Protein 1.90 H Total Protein Albumin Khudg-7-Qbozeropx Iivae-5-Spuzhpnzu Beta Globulins PEP Interpretation Triglycerides HDL Cholesterol Arterial Blood Glucose Arterial Blood Ionized Calcium Urine WBC (Auto) Coronavirus (PCR) 06/11/21 06/11/21 06/12/21 15:49 21:16 04:22 WBC RBC Hgb Hct RDW Plt Count Lymph % (Auto) Lymph # (Auto) Seg Neutrophils % Seg Neuts % (Manual) Lymphocytes % (Manual) Nucleated RBC % Seg Neutrophils # Seg Neutrophils # Man Lymphocytes # (Manual) Monocytes # (Manual) PT INR APTT D-Dimer ABG pH 7.318 L POC ABG pCO2 POC ABG pO2 ABG pO2 51.5 L ABG HCO3 ABG O2 Saturation 86.9 L ABG Base Excess -5.6 L ABG Hemoglobin ABG Oxyhemoglobin ABG Methemoglobin ABG Sodium ABG Potassium ABG Chloride ABG Glucose Oxyhemoglobin 85.5 L Carboxyhemoglobin Sodium Potassium Chloride Carbon Dioxide BUN Creatinine Glucose POC Glucose 185 H 200 H Hemoglobin A1c Calcium Phosphorus Magnesium Ferritin Alkaline Phosphatase Lactate Dehydrogenase Troponin T C-Reactive Protein Total Protein Albumin Huyjd-4-Jkdnsitbm Euuza-5-Soajdfxah Beta Globulins PEP Interpretation Triglycerides HDL Cholesterol Arterial Blood Glucose Arterial Blood Ionized Calcium Urine WBC (Auto) Coronavirus (PCR) 06/12/21 06/12/21 06/12/21 07:41 08:31 08:31 WBC 12.4 H RBC Hgb Hct RDW 15.3 H Plt Count Lymph % (Auto) 8.5 L Lymph # (Auto) 1.1 L Seg Neutrophils % 88.1 H Seg Neuts % (Manual) Lymphocytes % (Manual) Nucleated RBC % Seg Neutrophils # 10.9 H Seg Neutrophils # Man Lymphocytes # (Manual) Monocytes # (Manual) PT INR APTT D-Dimer ABG pH POC ABG pCO2 POC ABG pO2 ABG pO2 ABG HCO3 ABG O2 Saturation ABG Base Excess ABG Hemoglobin ABG Oxyhemoglobin ABG Methemoglobin ABG Sodium ABG Potassium ABG Chloride ABG Glucose Oxyhemoglobin Carboxyhemoglobin Sodium 151 H Potassium Chloride 117.3 H Carbon Dioxide 21 L BUN 61 H Creatinine 2.5 H Glucose 165 H POC Glucose 165 H Hemoglobin A1c Calcium 8.3 L Phosphorus Magnesium Ferritin Alkaline Phosphatase Lactate Dehydrogenase Troponin T C-Reactive Protein Total Protein Albumin Iktlv-2-Odpfbzeuo Ljeqp-2-Flranxvcu Beta Globulins PEP Interpretation Triglycerides HDL Cholesterol Arterial Blood Glucose Arterial Blood Ionized Calcium Urine WBC (Auto) Coronavirus (PCR) 06/12/21 06/12/21 06/12/21 08:31 10:32 15:47 WBC RBC Hgb Hct RDW Plt Count Lymph % (Auto) Lymph # (Auto) Seg Neutrophils % Seg Neuts % (Manual) Lymphocytes % (Manual) Nucleated RBC % Seg Neutrophils # Seg Neutrophils # Man Lymphocytes # (Manual) Monocytes # (Manual) PT INR APTT D-Dimer ABG pH POC ABG pCO2 POC ABG pO2 ABG pO2 ABG HCO3 ABG O2 Saturation ABG Base Excess ABG Hemoglobin ABG Oxyhemoglobin ABG Methemoglobin ABG Sodium ABG Potassium ABG Chloride ABG Glucose Oxyhemoglobin Carboxyhemoglobin Sodium Potassium Chloride Carbon Dioxide BUN Creatinine Glucose POC Glucose 156 H 176 H Hemoglobin A1c Calcium Phosphorus Magnesium 2.50 H Ferritin Alkaline Phosphatase Lactate Dehydrogenase Troponin T C-Reactive Protein Total Protein Albumin Bsjjk-3-Tdhhjtcwc Tztok-6-Zasvckeow Beta Globulins PEP Interpretation Triglycerides HDL Cholesterol Arterial Blood Glucose Arterial Blood Ionized Calcium Urine WBC (Auto) Coronavirus (PCR) 06/12/21 06/13/21 06/13/21 21:50 07:42 07:42 WBC 14.1 H RBC Hgb Hct RDW 15.3 H Plt Count Lymph % (Auto) Lymph # (Auto) Seg Neutrophils % Seg Neuts % (Manual) 87.0 H Lymphocytes % (Manual) 7.0 L Nucleated RBC % 3.0 H Seg Neutrophils # Seg Neutrophils # Man 12.3 H Lymphocytes # (Manual) 1.0 L Monocytes # (Manual) PT INR APTT D-Dimer ABG pH POC ABG pCO2 POC ABG pO2 ABG pO2 ABG HCO3 ABG O2 Saturation ABG Base Excess ABG Hemoglobin ABG Oxyhemoglobin ABG Methemoglobin ABG Sodium ABG Potassium ABG Chloride ABG Glucose Oxyhemoglobin Carboxyhemoglobin Sodium 151 H Potassium 3.5 L Chloride 116.0 H Carbon Dioxide BUN 61 H Creatinine 2.3 H Glucose 135 H POC Glucose 165 H Hemoglobin A1c Calcium Phosphorus Magnesium 2.50 H Ferritin Alkaline Phosphatase Lactate Dehydrogenase Troponin T C-Reactive Protein Total Protein Albumin Peyiu-2-Fbnwdewke Nwhff-3-Viobphwhx Beta Globulins PEP Interpretation Triglycerides HDL Cholesterol Arterial Blood Glucose Arterial Blood Ionized Calcium Urine WBC (Auto) Coronavirus (PCR) 06/13/21 06/13/21 06/13/21 08:10 11:10 18:15 WBC RBC Hgb Hct RDW Plt Count Lymph % (Auto) Lymph # (Auto) Seg Neutrophils % Seg Neuts % (Manual) Lymphocytes % (Manual) Nucleated RBC % Seg Neutrophils # Seg Neutrophils # Man Lymphocytes # (Manual) Monocytes # (Manual) PT INR APTT D-Dimer ABG pH POC ABG pCO2 POC ABG pO2 ABG pO2 ABG HCO3 ABG O2 Saturation ABG Base Excess ABG Hemoglobin ABG Oxyhemoglobin ABG Methemoglobin ABG Sodium ABG Potassium ABG Chloride ABG Glucose Oxyhemoglobin Carboxyhemoglobin Sodium Potassium Chloride Carbon Dioxide BUN Creatinine Glucose POC Glucose 118 H 139 H 179 H Hemoglobin A1c Calcium Phosphorus Magnesium Ferritin Alkaline Phosphatase Lactate Dehydrogenase Troponin T C-Reactive Protein Total Protein Albumin Mnsmp-0-Yjruepdgi Uplzr-8-Ykytozzee Beta Globulins PEP Interpretation Triglycerides HDL Cholesterol Arterial Blood Glucose Arterial Blood Ionized Calcium Urine WBC (Auto) Coronavirus (PCR) 06/13/21 06/13/21 06/14/21 21:54 23:27 04:42 WBC 12.8 H RBC Hgb Hct RDW 15.3 H Plt Count Lymph % (Auto) Lymph # (Auto) Seg Neutrophils % Seg Neuts % (Manual) 92.0 H Lymphocytes % (Manual) 1.0 L Nucleated RBC % 2.0 H Seg Neutrophils # Seg Neutrophils # Man 11.8 H Lymphocytes # (Manual) 0.1 L Monocytes # (Manual) PT INR APTT D-Dimer ABG pH POC ABG pCO2 POC ABG pO2 ABG pO2 ABG HCO3 ABG O2 Saturation ABG Base Excess ABG Hemoglobin ABG Oxyhemoglobin ABG Methemoglobin ABG Sodium ABG Potassium ABG Chloride ABG Glucose Oxyhemoglobin Carboxyhemoglobin Sodium 152 H Potassium Chloride 116.3 H Carbon Dioxide 21 L BUN 67 H Creatinine 2.5 H Glucose 212 H POC Glucose 193 H Hemoglobin A1c Calcium Phosphorus Magnesium Ferritin Alkaline Phosphatase Lactate Dehydrogenase Troponin T C-Reactive Protein Total Protein Albumin Kstfa-6-Ivbyworhs Mtvir-2-Uniuuewds Beta Globulins PEP Interpretation Triglycerides HDL Cholesterol Arterial Blood Glucose Arterial Blood Ionized Calcium Urine WBC (Auto) Coronavirus (PCR) 06/14/21 06/14/21 06/14/21 04:42 04:42 07:33 WBC RBC Hgb Hct RDW Plt Count Lymph % (Auto) Lymph # (Auto) Seg Neutrophils % Seg Neuts % (Manual) Lymphocytes % (Manual) Nucleated RBC % Seg Neutrophils # Seg Neutrophils # Man Lymphocytes # (Manual) Monocytes # (Manual) PT INR APTT D-Dimer ABG pH POC ABG pCO2 POC ABG pO2 ABG pO2 ABG HCO3 ABG O2 Saturation ABG Base Excess ABG Hemoglobin ABG Oxyhemoglobin ABG Methemoglobin ABG Sodium ABG Potassium ABG Chloride ABG Glucose Oxyhemoglobin Carboxyhemoglobin Sodium 152 H Potassium Chloride 115.3 H Carbon Dioxide BUN 68 H Creatinine 2.5 H Glucose 188 H POC Glucose 173 H Hemoglobin A1c Calcium Phosphorus Magnesium 2.40 H Ferritin Alkaline Phosphatase Lactate Dehydrogenase Troponin T C-Reactive Protein Total Protein Albumin Xqput-6-Afhzjmpvm Yprma-0-Mlvtjphon Beta Globulins PEP Interpretation Triglycerides HDL Cholesterol Arterial Blood Glucose Arterial Blood Ionized Calcium Urine WBC (Auto) Coronavirus (PCR) 06/14/21 06/14/21 06/14/21 10:57 15:53 23:40 WBC RBC Hgb Hct RDW Plt Count Lymph % (Auto) Lymph # (Auto) Seg Neutrophils % Seg Neuts % (Manual) Lymphocytes % (Manual) Nucleated RBC % Seg Neutrophils # Seg Neutrophils # Man Lymphocytes # (Manual) Monocytes # (Manual) PT INR APTT D-Dimer ABG pH POC ABG pCO2 POC ABG pO2 ABG pO2 ABG HCO3 ABG O2 Saturation ABG Base Excess ABG Hemoglobin ABG Oxyhemoglobin ABG Methemoglobin ABG Sodium ABG Potassium ABG Chloride ABG Glucose Oxyhemoglobin Carboxyhemoglobin Sodium Potassium Chloride Carbon Dioxide BUN Creatinine Glucose POC Glucose 195 H 226 H 235 H Hemoglobin A1c Calcium Phosphorus Magnesium Ferritin Alkaline Phosphatase Lactate Dehydrogenase Troponin T C-Reactive Protein Total Protein Albumin Dzzbq-7-Nvokdxrgn Uppnl-9-Ixunmxpiy Beta Globulins PEP Interpretation Triglycerides HDL Cholesterol Arterial Blood Glucose Arterial Blood Ionized Calcium Urine WBC (Auto) Coronavirus (PCR) 06/15/21 06/15/21 06/15/21 07:38 07:38 07:38 WBC 14.3 H RBC Hgb Hct RDW Plt Count Lymph % (Auto) Lymph # (Auto) Seg Neutrophils % Seg Neuts % (Manual) 95.0 H Lymphocytes % (Manual) 1.0 L Nucleated RBC % Seg Neutrophils # Seg Neutrophils # Man 13.6 H Lymphocytes # (Manual) 0.1 L Monocytes # (Manual) PT INR APTT D-Dimer > 59530 H ABG pH POC ABG pCO2 POC ABG pO2 ABG pO2 ABG HCO3 ABG O2 Saturation ABG Base Excess ABG Hemoglobin ABG Oxyhemoglobin ABG Methemoglobin ABG Sodium ABG Potassium ABG Chloride ABG Glucose Oxyhemoglobin Carboxyhemoglobin Sodium 153 H Potassium 3.5 L Chloride 115.9 H Carbon Dioxide BUN 55 H Creatinine 2.1 H Glucose 213 H POC Glucose Hemoglobin A1c Calcium Phosphorus Magnesium Ferritin Alkaline Phosphatase Lactate Dehydrogenase Troponin T C-Reactive Protein Total Protein Albumin Tlxdf-3-Dkzygjrsm Eilpt-8-Squoihbpv Beta Globulins PEP Interpretation Triglycerides HDL Cholesterol Arterial Blood Glucose Arterial Blood Ionized Calcium Urine WBC (Auto) Coronavirus (PCR) 06/15/21 06/15/21 06/15/21 07:38 09:21 11:46 WBC RBC Hgb Hct RDW Plt Count Lymph % (Auto) Lymph # (Auto) Seg Neutrophils % Seg Neuts % (Manual) Lymphocytes % (Manual) Nucleated RBC % Seg Neutrophils # Seg Neutrophils # Man Lymphocytes # (Manual) Monocytes # (Manual) PT INR APTT D-Dimer ABG pH POC ABG pCO2 POC ABG pO2 ABG pO2 ABG HCO3 ABG O2 Saturation ABG Base Excess ABG Hemoglobin ABG Oxyhemoglobin ABG Methemoglobin ABG Sodium ABG Potassium ABG Chloride ABG Glucose Oxyhemoglobin Carboxyhemoglobin Sodium Potassium Chloride Carbon Dioxide BUN Creatinine Glucose POC Glucose 202 H 233 H Hemoglobin A1c Calcium Phosphorus Magnesium Ferritin 1246.0 H Alkaline Phosphatase Lactate Dehydrogenase Troponin T C-Reactive Protein Total Protein Albumin Zmnqc-9-Lgysnubrs Vxbgv-1-Grtywghks Beta Globulins PEP Interpretation Triglycerides HDL Cholesterol Arterial Blood Glucose Arterial Blood Ionized Calcium Urine WBC (Auto) Coronavirus (PCR) 06/15/21 06/16/21 06/16/21 17:32 05:44 07:48 WBC RBC Hgb Hct RDW Plt Count Lymph % (Auto) Lymph # (Auto) Seg Neutrophils % Seg Neuts % (Manual) Lymphocytes % (Manual) Nucleated RBC % Seg Neutrophils # Seg Neutrophils # Man Lymphocytes # (Manual) Monocytes # (Manual) PT INR APTT D-Dimer ABG pH POC ABG pCO2 POC ABG pO2 ABG pO2 ABG HCO3 ABG O2 Saturation ABG Base Excess ABG Hemoglobin ABG Oxyhemoglobin ABG Methemoglobin ABG Sodium ABG Potassium ABG Chloride ABG Glucose Oxyhemoglobin Carboxyhemoglobin Sodium 154 H Potassium Chloride 117.2 H Carbon Dioxide BUN 54 H Creatinine 2.0 H Glucose 120 H POC Glucose 179 H 109 H Hemoglobin A1c Calcium Phosphorus Magnesium Ferritin Alkaline Phosphatase Lactate Dehydrogenase Troponin T C-Reactive Protein Total Protein Albumin Vdfpf-0-Pyfidxwrc Wvdzq-0-Vxopeogbs Beta Globulins PEP Interpretation Triglycerides HDL Cholesterol Arterial Blood Glucose Arterial Blood Ionized Calcium Urine WBC (Auto) Coronavirus (PCR) 06/16/21 06/16/21 06/16/21 11:13 15:22 21:15 WBC RBC Hgb Hct RDW Plt Count Lymph % (Auto) Lymph # (Auto) Seg Neutrophils % Seg Neuts % (Manual) Lymphocytes % (Manual) Nucleated RBC % Seg Neutrophils # Seg Neutrophils # Man Lymphocytes # (Manual) Monocytes # (Manual) PT INR APTT D-Dimer ABG pH POC ABG pCO2 POC ABG pO2 ABG pO2 ABG HCO3 ABG O2 Saturation ABG Base Excess ABG Hemoglobin ABG Oxyhemoglobin ABG Methemoglobin ABG Sodium ABG Potassium ABG Chloride ABG Glucose Oxyhemoglobin Carboxyhemoglobin Sodium Potassium Chloride Carbon Dioxide BUN Creatinine Glucose POC Glucose 222 H 218 H 250 H Hemoglobin A1c Calcium Phosphorus Magnesium Ferritin Alkaline Phosphatase Lactate Dehydrogenase Troponin T C-Reactive Protein Total Protein Albumin Rcami-0-Bxzubltcz Ukmwu-2-Dxweebqpo Beta Globulins PEP Interpretation Triglycerides HDL Cholesterol Arterial Blood Glucose Arterial Blood Ionized Calcium Urine WBC (Auto) Coronavirus (PCR) 06/17/21 06/17/21 06/17/21 07:55 09:35 09:35 WBC RBC Hgb Hct RDW 15.7 H Plt Count 99 L Lymph % (Auto) Lymph # (Auto) Seg Neutrophils % Seg Neuts % (Manual) Lymphocytes % (Manual) Nucleated RBC % Seg Neutrophils # Seg Neutrophils # Man Lymphocytes # (Manual) Monocytes # (Manual) PT INR APTT D-Dimer ABG pH POC ABG pCO2 POC ABG pO2 ABG pO2 ABG HCO3 ABG O2 Saturation ABG Base Excess ABG Hemoglobin ABG Oxyhemoglobin ABG Methemoglobin ABG Sodium ABG Potassium ABG Chloride ABG Glucose Oxyhemoglobin Carboxyhemoglobin Sodium 148 H Potassium Chloride 113.3 H Carbon Dioxide BUN 45 H Creatinine 1.8 H Glucose 202 H POC Glucose 158 H Hemoglobin A1c Calcium Phosphorus Magnesium Ferritin Alkaline Phosphatase Lactate Dehydrogenase Troponin T C-Reactive Protein Total Protein 6.0 L Albumin 2.8 L Xsjcs-4-Nquikoodj Qgftb-9-Awwoszolg Beta Globulins PEP Interpretation Triglycerides HDL Cholesterol Arterial Blood Glucose Arterial Blood Ionized Calcium Urine WBC (Auto) Coronavirus (PCR) 06/17/21 06/17/21 06/18/21 12:32 16:46 06:00 WBC RBC Hgb Hct RDW Plt Count Lymph % (Auto) Lymph # (Auto) Seg Neutrophils % Seg Neuts % (Manual) Lymphocytes % (Manual) Nucleated RBC % Seg Neutrophils # Seg Neutrophils # Man Lymphocytes # (Manual) Monocytes # (Manual) PT INR APTT D-Dimer 9804.08 H ABG pH POC ABG pCO2 POC ABG pO2 ABG pO2 ABG HCO3 ABG O2 Saturation ABG Base Excess ABG Hemoglobin ABG Oxyhemoglobin ABG Methemoglobin ABG Sodium ABG Potassium ABG Chloride ABG Glucose Oxyhemoglobin Carboxyhemoglobin Sodium Potassium Chloride Carbon Dioxide BUN Creatinine Glucose POC Glucose 227 H 203 H Hemoglobin A1c Calcium Phosphorus Magnesium Ferritin Alkaline Phosphatase Lactate Dehydrogenase Troponin T C-Reactive Protein Total Protein Albumin Wwlvo-9-Zzuxvjrda Cykse-8-Akmmfkgrq Beta Globulins PEP Interpretation Triglycerides HDL Cholesterol Arterial Blood Glucose Arterial Blood Ionized Calcium Urine WBC (Auto) Coronavirus (PCR) 06/18/21 06/18/21 06/18/21 06:00 08:00 10:10 WBC RBC Hgb Hct RDW Plt Count Lymph % (Auto) Lymph # (Auto) Seg Neutrophils % Seg Neuts % (Manual) Lymphocytes % (Manual) Nucleated RBC % Seg Neutrophils # Seg Neutrophils # Man Lymphocytes # (Manual) Monocytes # (Manual) PT INR APTT D-Dimer ABG pH POC ABG pCO2 POC ABG pO2 ABG pO2 ABG HCO3 ABG O2 Saturation ABG Base Excess ABG Hemoglobin ABG Oxyhemoglobin ABG Methemoglobin ABG Sodium ABG Potassium ABG Chloride ABG Glucose Oxyhemoglobin Carboxyhemoglobin Sodium Potassium Chloride 110.1 H Carbon Dioxide BUN 39 H Creatinine 1.8 H Glucose 135 H POC Glucose 107 H Hemoglobin A1c Calcium Phosphorus Magnesium Ferritin 904.2 H Alkaline Phosphatase Lactate Dehydrogenase Troponin T C-Reactive Protein Total Protein Albumin Vhqws-0-Gqculszfj Ajhpd-1-Djaimdhrf Beta Globulins PEP Interpretation Triglycerides HDL Cholesterol Arterial Blood Glucose Arterial Blood Ionized Calcium Urine WBC (Auto) Coronavirus (PCR) 06/18/21 06/18/21 06/18/21 12:06 16:47 21:14 WBC RBC Hgb Hct RDW Plt Count Lymph % (Auto) Lymph # (Auto) Seg Neutrophils % Seg Neuts % (Manual) Lymphocytes % (Manual) Nucleated RBC % Seg Neutrophils # Seg Neutrophils # Man Lymphocytes # (Manual) Monocytes # (Manual) PT INR APTT D-Dimer ABG pH POC ABG pCO2 POC ABG pO2 ABG pO2 ABG HCO3 ABG O2 Saturation ABG Base Excess ABG Hemoglobin ABG Oxyhemoglobin ABG Methemoglobin ABG Sodium ABG Potassium ABG Chloride ABG Glucose Oxyhemoglobin Carboxyhemoglobin Sodium Potassium Chloride Carbon Dioxide BUN Creatinine Glucose POC Glucose 160 H 236 H 186 H Hemoglobin A1c Calcium Phosphorus Magnesium Ferritin Alkaline Phosphatase Lactate Dehydrogenase Troponin T C-Reactive Protein Total Protein Albumin Hbxoe-6-Tccuswdbl Dydji-1-Snptxnkly Beta Globulins PEP Interpretation Triglycerides HDL Cholesterol Arterial Blood Glucose Arterial Blood Ionized Calcium Urine WBC (Auto) Coronavirus (PCR) 06/19/21 06/19/21 06/20/21 15:46 15:46 08:04 WBC RBC Hgb Hct RDW 15.5 H Plt Count 73 L Lymph % (Auto) Lymph # (Auto) Seg Neutrophils % Seg Neuts % (Manual) Lymphocytes % (Manual) Nucleated RBC % Seg Neutrophils # Seg Neutrophils # Man Lymphocytes # (Manual) Monocytes # (Manual) PT INR APTT D-Dimer ABG pH POC ABG pCO2 POC ABG pO2 ABG pO2 ABG HCO3 ABG O2 Saturation ABG Base Excess ABG Hemoglobin ABG Oxyhemoglobin ABG Methemoglobin ABG Sodium ABG Potassium ABG Chloride ABG Glucose Oxyhemoglobin Carboxyhemoglobin Sodium 146 H Potassium Chloride 108.9 H Carbon Dioxide BUN 38 H Creatinine 1.7 H Glucose POC Glucose 52 L Hemoglobin A1c Calcium Phosphorus Magnesium Ferritin Alkaline Phosphatase Lactate Dehydrogenase Troponin T C-Reactive Protein Total Protein Albumin Nlata-6-Pjjnbpifz Hvhcj-2-Iaqkbohgn Beta Globulins PEP Interpretation Triglycerides HDL Cholesterol Arterial Blood Glucose Arterial Blood Ionized Calcium Urine WBC (Auto) Coronavirus (PCR) 06/20/21 06/20/21 06/20/21 11:58 15:16 17:54 WBC RBC Hgb Hct RDW Plt Count Lymph % (Auto) Lymph # (Auto) Seg Neutrophils % Seg Neuts % (Manual) Lymphocytes % (Manual) Nucleated RBC % Seg Neutrophils # Seg Neutrophils # Man Lymphocytes # (Manual) Monocytes # (Manual) PT INR APTT D-Dimer ABG pH POC ABG pCO2 POC ABG pO2 ABG pO2 ABG HCO3 ABG O2 Saturation ABG Base Excess ABG Hemoglobin ABG Oxyhemoglobin ABG Methemoglobin ABG Sodium ABG Potassium ABG Chloride ABG Glucose Oxyhemoglobin Carboxyhemoglobin Sodium 146 H Potassium Chloride 108.2 H Carbon Dioxide BUN 37 H Creatinine 1.7 H Glucose 131 H POC Glucose 58 L 219 H Hemoglobin A1c Calcium Phosphorus Magnesium Ferritin Alkaline Phosphatase Lactate Dehydrogenase Troponin T C-Reactive Protein Total Protein Albumin Mrrsr-8-Ljqjbblrh Hbjnv-9-Bvbgvlizz Beta Globulins PEP Interpretation Triglycerides HDL Cholesterol Arterial Blood Glucose Arterial Blood Ionized Calcium Urine WBC (Auto) Coronavirus (PCR) 06/20/21 06/21/21 06/21/21 21:58 06:00 07:41 WBC RBC Hgb Hct RDW Plt Count Lymph % (Auto) Lymph # (Auto) Seg Neutrophils % Seg Neuts % (Manual) Lymphocytes % (Manual) Nucleated RBC % Seg Neutrophils # Seg Neutrophils # Man Lymphocytes # (Manual) Monocytes # (Manual) PT INR APTT D-Dimer ABG pH POC ABG pCO2 POC ABG pO2 ABG pO2 ABG HCO3 ABG O2 Saturation ABG Base Excess ABG Hemoglobin ABG Oxyhemoglobin ABG Methemoglobin ABG Sodium ABG Potassium ABG Chloride ABG Glucose Oxyhemoglobin Carboxyhemoglobin Sodium Potassium Chloride Carbon Dioxide BUN 42 H Creatinine 2.0 H Glucose 225 H POC Glucose 180 H 204 H Hemoglobin A1c Calcium Phosphorus Magnesium Ferritin Alkaline Phosphatase Lactate Dehydrogenase Troponin T C-Reactive Protein Total Protein Albumin Fshwr-4-Obezudpwd Yrajc-8-Zoabwgbqm Beta Globulins PEP Interpretation Triglycerides HDL Cholesterol Arterial Blood Glucose Arterial Blood Ionized Calcium Urine WBC (Auto) Coronavirus (PCR) 06/21/21 06/21/21 06/21/21 11:01 11:20 15:57 WBC RBC Hgb Hct RDW Plt Count Lymph % (Auto) Lymph # (Auto) Seg Neutrophils % Seg Neuts % (Manual) Lymphocytes % (Manual) Nucleated RBC % Seg Neutrophils # Seg Neutrophils # Man Lymphocytes # (Manual) Monocytes # (Manual) PT INR APTT D-Dimer ABG pH POC ABG pCO2 POC ABG pO2 58.9 L ABG pO2 ABG HCO3 ABG O2 Saturation ABG Base Excess ABG Hemoglobin ABG Oxyhemoglobin 87.4 L ABG Methemoglobin ABG Sodium ABG Potassium ABG Chloride ABG Glucose 212 H Oxyhemoglobin Carboxyhemoglobin Sodium Potassium Chloride Carbon Dioxide BUN Creatinine Glucose POC Glucose 194 H 171 H Hemoglobin A1c Calcium Phosphorus Magnesium Ferritin Alkaline Phosphatase Lactate Dehydrogenase Troponin T C-Reactive Protein Total Protein Albumin Zgnne-2-Pzsuzjclr Tcrjr-2-Agvdbszhs Beta Globulins PEP Interpretation Triglycerides HDL Cholesterol Arterial Blood Glucose 212 H Arterial Blood Ionized Calcium 4.5 L Urine WBC (Auto) Coronavirus (PCR) 06/21/21 06/21/21 06/21/21 17:52 17:55 22:09 WBC RBC Hgb Hct RDW Plt Count Lymph % (Auto) Lymph # (Auto) Seg Neutrophils % Seg Neuts % (Manual) Lymphocytes % (Manual) Nucleated RBC % Seg Neutrophils # Seg Neutrophils # Man Lymphocytes # (Manual) Monocytes # (Manual) PT INR APTT D-Dimer ABG pH 7.316 L POC ABG pCO2 51.7 H POC ABG pO2 62.3 L ABG pO2 ABG HCO3 ABG O2 Saturation ABG Base Excess ABG Hemoglobin ABG Oxyhemoglobin 88.7 L ABG Methemoglobin ABG Sodium ABG Potassium ABG Chloride ABG Glucose 197 H Oxyhemoglobin Carboxyhemoglobin Sodium Potassium Chloride Carbon Dioxide BUN Creatinine Glucose POC Glucose 153 H 178 H Hemoglobin A1c Calcium Phosphorus Magnesium Ferritin Alkaline Phosphatase Lactate Dehydrogenase Troponin T C-Reactive Protein Total Protein Albumin Jeacl-7-Dgrkkvmqh Eafuf-9-Eyjpotbot Beta Globulins PEP Interpretation Triglycerides HDL Cholesterol Arterial Blood Glucose 197 H Arterial Blood Ionized Calcium Urine WBC (Auto) Coronavirus (PCR) 06/22/21 06/22/21 06/22/21 07:30 07:43 11:47 WBC RBC Hgb Hct RDW Plt Count Lymph % (Auto) Lymph # (Auto) Seg Neutrophils % Seg Neuts % (Manual) Lymphocytes % (Manual) Nucleated RBC % Seg Neutrophils # Seg Neutrophils # Man Lymphocytes # (Manual) Monocytes # (Manual) PT INR APTT D-Dimer ABG pH POC ABG pCO2 POC ABG pO2 ABG pO2 ABG HCO3 ABG O2 Saturation ABG Base Excess ABG Hemoglobin ABG Oxyhemoglobin ABG Methemoglobin ABG Sodium ABG Potassium ABG Chloride ABG Glucose Oxyhemoglobin Carboxyhemoglobin Sodium Potassium Chloride Carbon Dioxide 21 L BUN 55 H Creatinine 2.8 H Glucose 219 H POC Glucose 235 H 222 H Hemoglobin A1c Calcium Phosphorus Magnesium Ferritin Alkaline Phosphatase Lactate Dehydrogenase Troponin T C-Reactive Protein Total Protein Albumin Gcyni-5-Pklzusfzy Iyyym-0-Zyxiuotsz Beta Globulins PEP Interpretation Triglycerides HDL Cholesterol Arterial Blood Glucose Arterial Blood Ionized Calcium Urine WBC (Auto) Coronavirus (PCR) 06/22/21 06/22/21 06/22/21 11:50 12:10 15:15 WBC RBC Hgb Hct RDW Plt Count Lymph % (Auto) Lymph # (Auto) Seg Neutrophils % Seg Neuts % (Manual) Lymphocytes % (Manual) Nucleated RBC % Seg Neutrophils # Seg Neutrophils # Man Lymphocytes # (Manual) Monocytes # (Manual) PT INR APTT D-Dimer ABG pH 7.273 L POC ABG pCO2 POC ABG pO2 56.8 L 56.8 L ABG pO2 58.0 L ABG HCO3 ABG O2 Saturation 85.7 L ABG Base Excess -4.9 L ABG Hemoglobin ABG Oxyhemoglobin 86.7 L 86.7 L ABG Methemoglobin ABG Sodium ABG Potassium ABG Chloride ABG Glucose Oxyhemoglobin 84.1 L Carboxyhemoglobin Sodium Potassium Chloride Carbon Dioxide BUN Creatinine Glucose POC Glucose Hemoglobin A1c Calcium Phosphorus Magnesium Ferritin Alkaline Phosphatase Lactate Dehydrogenase Troponin T C-Reactive Protein Total Protein Albumin Uezui-6-Ycemicvhr Mmtvn-9-Irowjmiho Beta Globulins PEP Interpretation Triglycerides HDL Cholesterol Arterial Blood Glucose Arterial Blood Ionized Calcium Urine WBC (Auto) Coronavirus (PCR) 06/22/21 06/22/21 06/22/21 17:28 21:22 23:35 WBC RBC Hgb Hct RDW Plt Count Lymph % (Auto) Lymph # (Auto) Seg Neutrophils % Seg Neuts % (Manual) Lymphocytes % (Manual) Nucleated RBC % Seg Neutrophils # Seg Neutrophils # Man Lymphocytes # (Manual) Monocytes # (Manual) PT INR APTT D-Dimer ABG pH 7.217 L POC ABG pCO2 POC ABG pO2 ABG pO2 61.7 L ABG HCO3 ABG O2 Saturation 87.3 L ABG Base Excess -6.0 L ABG Hemoglobin ABG Oxyhemoglobin ABG Methemoglobin ABG Sodium ABG Potassium ABG Chloride ABG Glucose Oxyhemoglobin 85.4 L Carboxyhemoglobin Sodium Potassium Chloride Carbon Dioxide BUN Creatinine Glucose POC Glucose 221 H 204 H Hemoglobin A1c Calcium Phosphorus Magnesium Ferritin Alkaline Phosphatase Lactate Dehydrogenase Troponin T C-Reactive Protein Total Protein Albumin Lqmae-3-Edfolvndf Zybuq-9-Qelmuanjg Beta Globulins PEP Interpretation Triglycerides HDL Cholesterol Arterial Blood Glucose Arterial Blood Ionized Calcium Urine WBC (Auto) Coronavirus (PCR) 06/23/21 06/23/21 06/23/21 04:42 04:42 04:42 WBC 19.0 H RBC 5.04 H Hgb Hct 44.5 H RDW 16.6 H Plt Count 61 L Lymph % (Auto) Lymph # (Auto) Seg Neutrophils % Seg Neuts % (Manual) Lymphocytes % (Manual) 2.0 L Nucleated RBC % 46.0 H Seg Neutrophils # Seg Neutrophils # Man 13.1 H Lymphocytes # (Manual) 0.4 L Monocytes # (Manual) 1.1 H PT INR APTT D-Dimer 6308.27 H ABG pH POC ABG pCO2 POC ABG pO2 ABG pO2 ABG HCO3 ABG O2 Saturation ABG Base Excess ABG Hemoglobin ABG Oxyhemoglobin ABG Methemoglobin ABG Sodium ABG Potassium ABG Chloride ABG Glucose Oxyhemoglobin Carboxyhemoglobin Sodium Potassium 6.3 H* D Chloride Carbon Dioxide 21 L BUN 72 H Creatinine 4.6 H D Glucose 225 H POC Glucose Hemoglobin A1c Calcium 8.0 L Phosphorus Magnesium Ferritin Alkaline Phosphatase Lactate Dehydrogenase Troponin T C-Reactive Protein Total Protein Albumin Niiwt-3-Nfoajnrap Mwlrq-6-Tmlxnbxqj Beta Globulins PEP Interpretation Triglycerides HDL Cholesterol Arterial Blood Glucose Arterial Blood Ionized Calcium Urine WBC (Auto) Coronavirus (PCR) 06/23/21 06/23/21 06/23/21 04:42 04:42 05:33 WBC RBC Hgb Hct RDW Plt Count Lymph % (Auto) Lymph # (Auto) Seg Neutrophils % Seg Neuts % (Manual) Lymphocytes % (Manual) Nucleated RBC % Seg Neutrophils # Seg Neutrophils # Man Lymphocytes # (Manual) Monocytes # (Manual) PT INR APTT D-Dimer ABG pH POC ABG pCO2 POC ABG pO2 ABG pO2 ABG HCO3 ABG O2 Saturation ABG Base Excess ABG Hemoglobin ABG Oxyhemoglobin ABG Methemoglobin ABG Sodium ABG Potassium ABG Chloride ABG Glucose Oxyhemoglobin Carboxyhemoglobin Sodium Potassium Chloride Carbon Dioxide BUN Creatinine Glucose POC Glucose 227 H Hemoglobin A1c Calcium 7.9 L Phosphorus 8.30 H Magnesium Ferritin 1496.0 H Alkaline Phosphatase Lactate Dehydrogenase Troponin T C-Reactive Protein 4.40 H Total Protein Albumin Ipkjs-2-Xsaxhsaxo Zyncu-5-Xvgleyxof Beta Globulins PEP Interpretation Triglycerides HDL Cholesterol Arterial Blood Glucose Arterial Blood Ionized Calcium Urine WBC (Auto) Coronavirus (PCR) 06/23/21 06/23/21 06/23/21 11:00 11:31 17:40 WBC RBC Hgb Hct RDW Plt Count Lymph % (Auto) Lymph # (Auto) Seg Neutrophils % Seg Neuts % (Manual) Lymphocytes % (Manual) Nucleated RBC % Seg Neutrophils # Seg Neutrophils # Man Lymphocytes # (Manual) Monocytes # (Manual) PT INR APTT D-Dimer ABG pH 7.177 L POC ABG pCO2 58.9 H POC ABG pO2 60.2 L ABG pO2 ABG HCO3 ABG O2 Saturation ABG Base Excess ABG Hemoglobin ABG Oxyhemoglobin 83.5 L ABG Methemoglobin 1.8 H ABG Sodium ABG Potassium ABG Chloride ABG Glucose Oxyhemoglobin Carboxyhemoglobin Sodium Potassium Chloride Carbon Dioxide BUN Creatinine Glucose POC Glucose 207 H Hemoglobin A1c Calcium Phosphorus Magnesium Ferritin Alkaline Phosphatase Lactate Dehydrogenase Troponin T C-Reactive Protein Total Protein Albumin Sbqrv-8-Nosgrzlrb Krrzy-1-Igenbqbti Beta Globulins PEP Interpretation Triglycerides HDL Cholesterol Arterial Blood Glucose Arterial Blood Ionized Calcium Urine WBC (Auto) > 182.0 H Coronavirus (PCR) 06/23/21 06/23/21 06/23/21 17:52 21:12 Unknown WBC RBC Hgb Hct RDW Plt Count Lymph % (Auto) Lymph # (Auto) Seg Neutrophils % Seg Neuts % (Manual) Lymphocytes % (Manual) Nucleated RBC % Seg Neutrophils # Seg Neutrophils # Man Lymphocytes # (Manual) Monocytes # (Manual) PT INR APTT D-Dimer 6308 H ABG pH 7.214 L POC ABG pCO2 60.2 H POC ABG pO2 78.9 L ABG pO2 ABG HCO3 ABG O2 Saturation ABG Base Excess ABG Hemoglobin ABG Oxyhemoglobin 93.4 L ABG Methemoglobin ABG Sodium ABG Potassium 6.3 H ABG Chloride ABG Glucose 338 H Oxyhemoglobin Carboxyhemoglobin Sodium Potassium Chloride Carbon Dioxide BUN Creatinine Glucose POC Glucose 232 H Hemoglobin A1c Calcium Phosphorus Magnesium Ferritin Alkaline Phosphatase Lactate Dehydrogenase Troponin T C-Reactive Protein Total Protein Albumin Igelt-2-Exgnumucr Txkcu-3-Ofvgxwawk Beta Globulins PEP Interpretation Triglycerides HDL Cholesterol Arterial Blood Glucose 338 H Arterial Blood Ionized Calcium 4.1 L Urine WBC (Auto) Coronavirus (PCR) 10/04/0606/23/21 06/23/21 Unknown Unknown Unknown WBC RBC Hgb Hct RDW Plt Count Lymph % (Auto) Lymph # (Auto) Seg Neutrophils % Seg Neuts % (Manual) Lymphocytes % (Manual) Nucleated RBC % Seg Neutrophils # Seg Neutrophils # Man Lymphocytes # (Manual) Monocytes # (Manual) PT 24.6 H INR 2.18 H APTT 43.8 H D-Dimer ABG pH POC ABG pCO2 POC ABG pO2 ABG pO2 ABG HCO3 ABG O2 Saturation ABG Base Excess ABG Hemoglobin ABG Oxyhemoglobin ABG Methemoglobin ABG Sodium ABG Potassium ABG Chloride ABG Glucose Oxyhemoglobin Carboxyhemoglobin Sodium 146 H Potassium 5.3 H Chloride 113.2 H Carbon Dioxide 20 L BUN 73 H Creatinine 4.2 H Glucose 234 H POC Glucose Hemoglobin A1c Calcium 6.3 L D Phosphorus Magnesium Ferritin 1094.0 H Alkaline Phosphatase Lactate Dehydrogenase Troponin T C-Reactive Protein Total Protein 4.3 L Albumin 2.0 L Vqnyz-2-Cjgcriuza Rozog-7-Nfytvpfqe Beta Globulins PEP Interpretation Triglycerides HDL Cholesterol Arterial Blood Glucose Arterial Blood Ionized Calcium Urine WBC (Auto) Coronavirus (PCR) 06/24/21 06/24/21 06/24/21 00:03 04:55 04:55 WBC 18.7 H RBC Hgb Hct RDW 16.8 H Plt Count 42 L Lymph % (Auto) Lymph # (Auto) Seg Neutrophils % Seg Neuts % (Manual) Lymphocytes % (Manual) 1.0 L Nucleated RBC % 1.0 H Seg Neutrophils # Seg Neutrophils # Man 12.7 H Lymphocytes # (Manual) 0.2 L Monocytes # (Manual) PT INR APTT D-Dimer ABG pH POC ABG pCO2 POC ABG pO2 ABG pO2 ABG HCO3 ABG O2 Saturation ABG Base Excess ABG Hemoglobin ABG Oxyhemoglobin ABG Methemoglobin ABG Sodium ABG Potassium ABG Chloride ABG Glucose Oxyhemoglobin Carboxyhemoglobin Sodium Potassium 6.0 H Chloride Carbon Dioxide 20 L BUN 86 H Creatinine 5.4 H Glucose 309 H POC Glucose 265 H Hemoglobin A1c Calcium 6.5 L Phosphorus 7.60 H Magnesium Ferritin Alkaline Phosphatase Lactate Dehydrogenase Troponin T C-Reactive Protein Total Protein 4.6 L Albumin 2.1 L Szepz-3-Qahcczova Jwscm-9-Zfzwbfukg Beta Globulins PEP Interpretation Triglycerides HDL Cholesterol Arterial Blood Glucose Arterial Blood Ionized Calcium Urine WBC (Auto) Coronavirus (PCR) 06/24/21 06/24/21 06/24/21 04:55 06:01 11:38 WBC RBC Hgb Hct RDW Plt Count Lymph % (Auto) Lymph # (Auto) Seg Neutrophils % Seg Neuts % (Manual) Lymphocytes % (Manual) Nucleated RBC % Seg Neutrophils # Seg Neutrophils # Man Lymphocytes # (Manual) Monocytes # (Manual) PT 22.2 H INR 1.90 H APTT D-Dimer ABG pH POC ABG pCO2 POC ABG pO2 ABG pO2 ABG HCO3 ABG O2 Saturation ABG Base Excess ABG Hemoglobin ABG Oxyhemoglobin ABG Methemoglobin ABG Sodium ABG Potassium ABG Chloride ABG Glucose Oxyhemoglobin Carboxyhemoglobin Sodium Potassium Chloride Carbon Dioxide BUN Creatinine Glucose POC Glucose 257 H 288 H Hemoglobin A1c Calcium Phosphorus Magnesium Ferritin Alkaline Phosphatase Lactate Dehydrogenase Troponin T C-Reactive Protein Total Protein Albumin Jcorn-8-Uolakrqba Liqjw-1-Aiyzslthc Beta Globulins PEP Interpretation Triglycerides HDL Cholesterol Arterial Blood Glucose Arterial Blood Ionized Calcium Urine WBC (Auto) Coronavirus (PCR) 06/24/21 06/24/21 06/25/21 18:02 23:29 05:12 WBC RBC Hgb Hct RDW Plt Count Lymph % (Auto) Lymph # (Auto) Seg Neutrophils % Seg Neuts % (Manual) Lymphocytes % (Manual) Nucleated RBC % Seg Neutrophils # Seg Neutrophils # Man Lymphocytes # (Manual) Monocytes # (Manual) PT INR APTT D-Dimer ABG pH POC ABG pCO2 POC ABG pO2 ABG pO2 ABG HCO3 ABG O2 Saturation ABG Base Excess ABG Hemoglobin ABG Oxyhemoglobin ABG Methemoglobin ABG Sodium ABG Potassium ABG Chloride ABG Glucose Oxyhemoglobin Carboxyhemoglobin Sodium Potassium Chloride Carbon Dioxide BUN Creatinine Glucose POC Glucose 299 H 269 H 283 H Hemoglobin A1c Calcium Phosphorus Magnesium Ferritin Alkaline Phosphatase Lactate Dehydrogenase Troponin T C-Reactive Protein Total Protein Albumin Edpok-2-Cphwhciiy Mouyh-6-Xeyhjmnqj Beta Globulins PEP Interpretation Triglycerides HDL Cholesterol Arterial Blood Glucose Arterial Blood Ionized Calcium Urine WBC (Auto) Coronavirus (PCR) 06/25/21 06/25/21 06/25/21 09:05 09:05 09:05 WBC 14.5 H RBC Hgb Hct RDW 16.4 H Plt Count 41 L Lymph % (Auto) Lymph # (Auto) Seg Neutrophils % Seg Neuts % (Manual) Lymphocytes % (Manual) Nucleated RBC % Seg Neutrophils # Seg Neutrophils # Man Lymphocytes # (Manual) Monocytes # (Manual) PT 20.2 H INR 1.68 H APTT D-Dimer ABG pH POC ABG pCO2 POC ABG pO2 ABG pO2 ABG HCO3 ABG O2 Saturation ABG Base Excess ABG Hemoglobin ABG Oxyhemoglobin ABG Methemoglobin ABG Sodium ABG Potassium ABG Chloride ABG Glucose Oxyhemoglobin Carboxyhemoglobin Sodium Potassium 5.5 H Chloride 97.2 L Carbon Dioxide BUN 88 H Creatinine 5.6 H Glucose 370 H POC Glucose Hemoglobin A1c Calcium 7.4 L Phosphorus 8.00 H Magnesium Ferritin Alkaline Phosphatase Lactate Dehydrogenase Troponin T C-Reactive Protein Total Protein 5.1 L Albumin 2.5 L Egpjq-2-Kkixgfxiq Wwxms-4-Gicqeysya Beta Globulins PEP Interpretation Triglycerides HDL Cholesterol Arterial Blood Glucose Arterial Blood Ionized Calcium Urine WBC (Auto) Coronavirus (PCR) 06/25/21 06/25/21 06/25/21 09:29 12:05 17:28 WBC RBC Hgb Hct RDW Plt Count Lymph % (Auto) Lymph # (Auto) Seg Neutrophils % Seg Neuts % (Manual) Lymphocytes % (Manual) Nucleated RBC % Seg Neutrophils # Seg Neutrophils # Man Lymphocytes # (Manual) Monocytes # (Manual) PT INR APTT D-Dimer ABG pH 7.304 L POC ABG pCO2 53.2 H POC ABG pO2 ABG pO2 ABG HCO3 ABG O2 Saturation ABG Base Excess ABG Hemoglobin 10.9 L ABG Oxyhemoglobin ABG Methemoglobin ABG Sodium 133.9 L ABG Potassium 5.8 H ABG Chloride ABG Glucose 380 H Oxyhemoglobin Carboxyhemoglobin 0.4 L Sodium Potassium Chloride Carbon Dioxide BUN Creatinine Glucose POC Glucose 359 H 288 H Hemoglobin A1c Calcium Phosphorus Magnesium Ferritin Alkaline Phosphatase Lactate Dehydrogenase Troponin T C-Reactive Protein Total Protein Albumin Fiksc-0-Emciormuy Ljfwg-0-Fcdkyrmui Beta Globulins PEP Interpretation Triglycerides HDL Cholesterol Arterial Blood Glucose 380 H Arterial Blood Ionized Calcium Urine WBC (Auto) Coronavirus (PCR) 06/25/21 06/25/21 06/26/21 21:00 23:46 05:14 WBC RBC Hgb Hct RDW Plt Count Lymph % (Auto) Lymph # (Auto) Seg Neutrophils % Seg Neuts % (Manual) Lymphocytes % (Manual) Nucleated RBC % Seg Neutrophils # Seg Neutrophils # Man Lymphocytes # (Manual) Monocytes # (Manual) PT INR APTT D-Dimer ABG pH 7.280 L 7.268 L POC ABG pCO2 59.7 H 60.2 H POC ABG pO2 113.7 H ABG pO2 ABG HCO3 ABG O2 Saturation ABG Base Excess ABG Hemoglobin 11.4 L 10.9 L ABG Oxyhemoglobin ABG Methemoglobin ABG Sodium 134.4 L 133.3 L ABG Potassium 4.7 H ABG Chloride ABG Glucose 313 H 353 H Oxyhemoglobin Carboxyhemoglobin 0.4 L Sodium Potassium Chloride Carbon Dioxide BUN Creatinine Glucose POC Glucose 325 H Hemoglobin A1c Calcium Phosphorus Magnesium Ferritin Alkaline Phosphatase Lactate Dehydrogenase Troponin T C-Reactive Protein Total Protein Albumin Cfwze-4-Sdxyntmra Mgjse-5-Bhbinufma Beta Globulins PEP Interpretation Triglycerides HDL Cholesterol Arterial Blood Glucose 313 H 353 H Arterial Blood Ionized Calcium Urine WBC (Auto) Coronavirus (PCR) 06/26/21 06/26/21 06/26/21 05:27 07:00 07:00 WBC 11.4 H RBC 3.63 L Hgb Hct RDW 15.6 H Plt Count 29 L Lymph % (Auto) 6.4 L Lymph # (Auto) 0.7 L Seg Neutrophils % 87.9 H Seg Neuts % (Manual) Lymphocytes % (Manual) Nucleated RBC % Seg Neutrophils # 10.4 H Seg Neutrophils # Man Lymphocytes # (Manual) Monocytes # (Manual) PT INR APTT D-Dimer ABG pH POC ABG pCO2 POC ABG pO2 ABG pO2 ABG HCO3 ABG O2 Saturation ABG Base Excess ABG Hemoglobin ABG Oxyhemoglobin ABG Methemoglobin ABG Sodium ABG Potassium ABG Chloride ABG Glucose Oxyhemoglobin Carboxyhemoglobin Sodium Potassium Chloride Carbon Dioxide BUN Creatinine Glucose POC Glucose 345 H Hemoglobin A1c Calcium Phosphorus 7.40 H Magnesium Ferritin Alkaline Phosphatase Lactate Dehydrogenase Troponin T C-Reactive Protein Total Protein Albumin Mkorw-9-Tijlvscel Kxlpj-5-Amemfsczj Beta Globulins PEP Interpretation Triglycerides HDL Cholesterol Arterial Blood Glucose Arterial Blood Ionized Calcium Urine WBC (Auto) Coronavirus (PCR) 06/26/21 06/26/21 06/26/21 10:00 10:00 13:01 WBC RBC Hgb Hct RDW Plt Count Lymph % (Auto) Lymph # (Auto) Seg Neutrophils % Seg Neuts % (Manual) Lymphocytes % (Manual) Nucleated RBC % Seg Neutrophils # Seg Neutrophils # Man Lymphocytes # (Manual) Monocytes # (Manual) PT INR APTT D-Dimer 1363.54 H ABG pH POC ABG pCO2 POC ABG pO2 ABG pO2 ABG HCO3 ABG O2 Saturation ABG Base Excess ABG Hemoglobin ABG Oxyhemoglobin ABG Methemoglobin ABG Sodium ABG Potassium ABG Chloride ABG Glucose Oxyhemoglobin Carboxyhemoglobin Sodium 136 L Potassium Chloride 96.1 L Carbon Dioxide BUN 78 H Creatinine 4.6 H Glucose 378 H POC Glucose 363 H Hemoglobin A1c Calcium 8.3 L Phosphorus Magnesium Ferritin Alkaline Phosphatase Lactate Dehydrogenase Troponin T C-Reactive Protein Total Protein Albumin Nmiov-5-Hkieihcmw Lfcco-1-Aszfyvzbh Beta Globulins PEP Interpretation Triglycerides HDL Cholesterol Arterial Blood Glucose Arterial Blood Ionized Calcium Urine WBC (Auto) Coronavirus (PCR) 06/26/21 06/26/21 06/27/21 18:53 23:08 00:15 WBC RBC Hgb Hct RDW Plt Count Lymph % (Auto) Lymph # (Auto) Seg Neutrophils % Seg Neuts % (Manual) Lymphocytes % (Manual) Nucleated RBC % Seg Neutrophils # Seg Neutrophils # Man Lymphocytes # (Manual) Monocytes # (Manual) PT INR APTT D-Dimer ABG pH POC ABG pCO2 POC ABG pO2 ABG pO2 ABG HCO3 ABG O2 Saturation ABG Base Excess ABG Hemoglobin ABG Oxyhemoglobin ABG Methemoglobin ABG Sodium ABG Potassium ABG Chloride ABG Glucose Oxyhemoglobin Carboxyhemoglobin Sodium Potassium Chloride Carbon Dioxide BUN Creatinine Glucose POC Glucose 329 H 337 H 308 H Hemoglobin A1c Calcium Phosphorus Magnesium Ferritin Alkaline Phosphatase Lactate Dehydrogenase Troponin T C-Reactive Protein Total Protein Albumin Bzmmr-5-Hqlguznlx Ddeej-4-Jvljwloit Beta Globulins PEP Interpretation Triglycerides HDL Cholesterol Arterial Blood Glucose Arterial Blood Ionized Calcium Urine WBC (Auto) Coronavirus (PCR) 06/27/21 06/27/21 06/27/21 05:13 06:40 06:40 WBC 12.5 H RBC Hgb Hct RDW 16.1 H Plt Count 23 L Lymph % (Auto) Lymph # (Auto) Seg Neutrophils % Seg Neuts % (Manual) Lymphocytes % (Manual) Nucleated RBC % Seg Neutrophils # 11.3 H Seg Neutrophils # Man Lymphocytes # (Manual) Monocytes # (Manual) PT INR APTT D-Dimer ABG pH POC ABG pCO2 POC ABG pO2 ABG pO2 ABG HCO3 ABG O2 Saturation ABG Base Excess ABG Hemoglobin ABG Oxyhemoglobin ABG Methemoglobin ABG Sodium ABG Potassium ABG Chloride ABG Glucose Oxyhemoglobin Carboxyhemoglobin Sodium 133 L Potassium 5.4 H Chloride 93.4 L Carbon Dioxide BUN 96 H Creatinine 5.6 H Glucose 388 H POC Glucose 329 H Hemoglobin A1c Calcium 8.3 L Phosphorus 8.70 H Magnesium Ferritin Alkaline Phosphatase Lactate Dehydrogenase Troponin T C-Reactive Protein Total Protein Albumin Mczjb-1-Lfjtqtioz Uqgmy-9-Ndlnrnbll Beta Globulins PEP Interpretation Triglycerides HDL Cholesterol Arterial Blood Glucose Arterial Blood Ionized Calcium Urine WBC (Auto) Coronavirus (PCR) 06/27/21 06/27/21 06/27/21 11:46 16:30 17:12 WBC RBC Hgb Hct RDW Plt Count Lymph % (Auto) Lymph # (Auto) Seg Neutrophils % Seg Neuts % (Manual) Lymphocytes % (Manual) Nucleated RBC % Seg Neutrophils # Seg Neutrophils # Man Lymphocytes # (Manual) Monocytes # (Manual) PT INR APTT D-Dimer ABG pH 7.180 L POC ABG pCO2 62.9 H POC ABG pO2 111.1 H ABG pO2 ABG HCO3 ABG O2 Saturation ABG Base Excess ABG Hemoglobin 10.7 L ABG Oxyhemoglobin ABG Methemoglobin ABG Sodium 130.6 L ABG Potassium 5.1 H ABG Chloride 95.0 L ABG Glucose 364 H Oxyhemoglobin Carboxyhemoglobin Sodium Potassium Chloride Carbon Dioxide BUN Creatinine Glucose POC Glucose 330 H 276 H Hemoglobin A1c Calcium Phosphorus Magnesium Ferritin Alkaline Phosphatase Lactate Dehydrogenase Troponin T C-Reactive Protein Total Protein Albumin Qyuxk-8-Kjdyvxgdp Oratr-8-Avhqwqpeu Beta Globulins PEP Interpretation Triglycerides HDL Cholesterol Arterial Blood Glucose 364 H Arterial Blood Ionized Calcium 4.4 L Urine WBC (Auto) Coronavirus (PCR) 06/27/21 06/27/21 06/27/21 21:00 21:16 23:15 WBC RBC Hgb Hct RDW Plt Count Lymph % (Auto) Lymph # (Auto) Seg Neutrophils % Seg Neuts % (Manual) Lymphocytes % (Manual) Nucleated RBC % Seg Neutrophils # Seg Neutrophils # Man Lymphocytes # (Manual) Monocytes # (Manual) PT INR APTT D-Dimer ABG pH 7.283 L 7.257 L POC ABG pCO2 60.1 H POC ABG pO2 ABG pO2 55.0 L ABG HCO3 27.6 H ABG O2 Saturation 85.3 L ABG Base Excess ABG Hemoglobin 10.4 L 9.8 L ABG Oxyhemoglobin ABG Methemoglobin ABG Sodium 135.7 L ABG Potassium ABG Chloride 97.0 L ABG Glucose 309 H Oxyhemoglobin 83.3 L Carboxyhemoglobin Sodium Potassium Chloride Carbon Dioxide BUN Creatinine Glucose POC Glucose 265 H Hemoglobin A1c Calcium Phosphorus Magnesium Ferritin Alkaline Phosphatase Lactate Dehydrogenase Troponin T C-Reactive Protein Total Protein Albumin Oecjj-7-Utejtpagz Hhksc-8-Zgmltfckf Beta Globulins PEP Interpretation Triglycerides HDL Cholesterol Arterial Blood Glucose 309 H Arterial Blood Ionized Calcium Urine WBC (Auto) Coronavirus (PCR) 06/27/21 06/28/21 06/28/21 Unknown 04:25 04:25 WBC 11.6 H RBC 3.44 L Hgb 9.9 L Hct RDW 15.7 H Plt Count 36 L Lymph % (Auto) 7.6 L Lymph # (Auto) 0.9 L Seg Neutrophils % 86.7 H Seg Neuts % (Manual) Lymphocytes % (Manual) Nucleated RBC % Seg Neutrophils # 10.0 H Seg Neutrophils # Man Lymphocytes # (Manual) Monocytes # (Manual) PT 16.5 H INR 1.27 H APTT D-Dimer ABG pH 7.230 L POC ABG pCO2 POC ABG pO2 ABG pO2 92.0 H ABG HCO3 26.2 H ABG O2 Saturation ABG Base Excess ABG Hemoglobin 8.2 L ABG Oxyhemoglobin ABG Methemoglobin ABG Sodium ABG Potassium ABG Chloride ABG Glucose Oxyhemoglobin 94.6 L Carboxyhemoglobin Sodium Potassium Chloride Carbon Dioxide BUN Creatinine Glucose POC Glucose Hemoglobin A1c Calcium Phosphorus Magnesium Ferritin Alkaline Phosphatase Lactate Dehydrogenase Troponin T C-Reactive Protein Total Protein Albumin Utadh-7-Wxyyibwwj Btvsn-8-Kksnuilfj Beta Globulins PEP Interpretation Triglycerides HDL Cholesterol Arterial Blood Glucose Arterial Blood Ionized Calcium Urine WBC (Auto) Coronavirus (PCR) 06/28/21 06/28/21 06/28/21 04:25 05:35 12:22 WBC RBC Hgb Hct RDW Plt Count Lymph % (Auto) Lymph # (Auto) Seg Neutrophils % Seg Neuts % (Manual) Lymphocytes % (Manual) Nucleated RBC % Seg Neutrophils # Seg Neutrophils # Man Lymphocytes # (Manual) Monocytes # (Manual) PT INR APTT D-Dimer ABG pH POC ABG pCO2 POC ABG pO2 ABG pO2 ABG HCO3 ABG O2 Saturation ABG Base Excess ABG Hemoglobin ABG Oxyhemoglobin ABG Methemoglobin ABG Sodium ABG Potassium ABG Chloride ABG Glucose Oxyhemoglobin Carboxyhemoglobin Sodium 136 L Potassium Chloride 96.0 L Carbon Dioxide BUN 79 H Creatinine 4.8 H Glucose 301 H POC Glucose 256 H 255 H Hemoglobin A1c Calcium Phosphorus 6.80 H D Magnesium Ferritin Alkaline Phosphatase Lactate Dehydrogenase Troponin T C-Reactive Protein Total Protein Albumin Bsdtl-2-Zpoxyjxpa Rlbet-2-Dlurihalg Beta Globulins PEP Interpretation Triglycerides HDL Cholesterol Arterial Blood Glucose Arterial Blood Ionized Calcium Urine WBC (Auto) Coronavirus (PCR) 06/28/21 06/29/21 06/29/21 18:18 00:36 04:34 WBC 12.0 H RBC 3.35 L Hgb 9.5 L Hct 29.4 L RDW 16.1 H Plt Count 45 L Lymph % (Auto) Lymph # (Auto) Seg Neutrophils % Seg Neuts % (Manual) Lymphocytes % (Manual) Nucleated RBC % Seg Neutrophils # Seg Neutrophils # Man Lymphocytes # (Manual) Monocytes # (Manual) PT INR APTT D-Dimer ABG pH POC ABG pCO2 POC ABG pO2 ABG pO2 ABG HCO3 ABG O2 Saturation ABG Base Excess ABG Hemoglobin ABG Oxyhemoglobin ABG Methemoglobin ABG Sodium ABG Potassium ABG Chloride ABG Glucose Oxyhemoglobin Carboxyhemoglobin Sodium Potassium Chloride Carbon Dioxide BUN Creatinine Glucose POC Glucose 228 H 153 H Hemoglobin A1c Calcium Phosphorus Magnesium Ferritin Alkaline Phosphatase Lactate Dehydrogenase Troponin T C-Reactive Protein Total Protein Albumin Zufbh-0-Gnfotpivy Qrtey-4-Tnmgbyfax Beta Globulins PEP Interpretation Triglycerides HDL Cholesterol Arterial Blood Glucose Arterial Blood Ionized Calcium Urine WBC (Auto) Coronavirus (PCR) 06/29/21 06/29/21 06/29/21 04:34 05:19 12:30 WBC RBC Hgb Hct RDW Plt Count Lymph % (Auto) Lymph # (Auto) Seg Neutrophils % Seg Neuts % (Manual) Lymphocytes % (Manual) Nucleated RBC % Seg Neutrophils # Seg Neutrophils # Man Lymphocytes # (Manual) Monocytes # (Manual) PT INR APTT D-Dimer ABG pH POC ABG pCO2 POC ABG pO2 ABG pO2 ABG HCO3 ABG O2 Saturation ABG Base Excess ABG Hemoglobin ABG Oxyhemoglobin ABG Methemoglobin ABG Sodium ABG Potassium ABG Chloride ABG Glucose Oxyhemoglobin Carboxyhemoglobin Sodium Potassium 5.2 H Chloride 95.8 L Carbon Dioxide BUN 97 H Creatinine 5.6 H Glucose 184 H POC Glucose 180 H 161 H Hemoglobin A1c Calcium 8.1 L Phosphorus Magnesium Ferritin Alkaline Phosphatase 132 H Lactate Dehydrogenase Troponin T C-Reactive Protein Total Protein 6.0 L Albumin 3.3 L Livrw-6-Sekeqafyx Mmbjc-9-Uhicyxutg Beta Globulins PEP Interpretation Triglycerides HDL Cholesterol Arterial Blood Glucose Arterial Blood Ionized Calcium Urine WBC (Auto) Coronavirus (PCR) Allied health notes reviewed: nursing
--- NOTE | 2021-06-29 13:23 | Hem/Onc Progress Note ---
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), and uncontrolled diabetes Noted to have a seizure--now on Keppra Currently intubated due to acute hypoxic respiratory failure Receiving hemodialysis History of multiple DVTs--was on at home Eliquis--converted to Lovenox while inpatient Now with thrombocytopenia As per nurse, large amount of blood noted in ETT tube--anticoagulants on hold Bilateral extremity u/s negative for DVT DATA REVIEWED BELOW Hgb 9.5 Hct 29.4 MCV 88 WBC 12 Plt 45 IMP: Thrombocytopenia related to covid infection or medications r/o HIT vs acute ITP REC/PLAN: AM labs to include CBC daily Transfuse 1 dose of platelets whenever plt count <50 Monitor for bleeding Transfuse 1 unit of PRBC whenever hct<23 Awaiting PF4 antibody results Laboratory Last Values WBC 12.0 K/mm3 (4.5-11.0) H 06/29/21 04:34 RBC 3.35 M/mm3 (3.65-5.03) L 06/29/21 04:34 Hgb 9.5 gm/dl (10.1-14.3) L 06/29/21 04:34 Hct 29.4 % (30.3-42.9) L 06/29/21 04:34 MCV 88 fl (79-97) 06/29/21 04:34 MCH 28 pg (28-32) 06/29/21 04:34 MCHC 32 % (30-34) 06/29/21 04:34 RDW 16.1 % (13.2-15.2) H 06/29/21 04:34 Plt Count 45 K/mm3 (140-440) L 06/29/21 04:34 Lymph % (Auto) 7.6 % (13.4-35.0) L 06/28/21 04:25 Grady % (Auto) 5.6 % (0.0-7.3) 06/28/21 04:25 Eos % (Auto) 0.0 % (0.0-4.3) 06/28/21 04:25 Baso % (Auto) 0.1 % (0.0-1.8) 06/28/21 04:25 Lymph # (Auto) 0.9 K/mm3 (1.2-5.4) L 06/28/21 04:25 Grady # (Auto) 0.7 K/mm3 (0.0-0.8) 06/28/21 04:25 Eos # (Auto) 0.0 K/mm3 (0.0-0.4) 06/28/21 04:25 Baso # (Auto) 0.0 K/mm3 (0.0-0.1) 06/28/21 04:25 Add Manual Diff Complete 06/27/21 06:40 Total Counted 100 06/24/21 04:55 Seg Neutrophils % 86.7 % (40.0-70.0) H 06/28/21 04:25 Seg Neuts % (Manual) 68.0 % (40.0-70.0) 06/24/21 04:55 Band Neutrophils % 23.0 % 06/24/21 04:55 Lymphocytes % (Manual) 1.0 % (13.4-35.0) L 06/24/21 04:55 Monocytes % (Manual) 6.0 % (0.0-7.3) 06/23/21 04:42 Eosinophils % (Manual) 2.0 % (0.0-4.3) 06/23/21 04:42 Metamyelocytes % 2.0 % 06/10/21 23:14 Myelocytes % 8.0 % 06/24/21 04:55 Nucleated RBC % Not Reportable 06/27/21 06:40 Seg Neutrophils # 10.0 K/mm3 (1.8-7.7) H 06/28/21 04:25 Seg Neutrophils # Man 12.7 K/mm3 (1.8-7.7) H 06/24/21 04:55 Band Neutrophils # 4.3 K/mm3 06/24/21 04:55 Lymphocytes # (Manual) 0.2 K/mm3 (1.2-5.4) L 06/24/21 04:55 Abs React Lymphs (Man) 0.0 K/mm3 06/24/21 04:55 Monocytes # (Manual) 0.0 K/mm3 (0.0-0.8) 06/24/21 04:55 Eosinophils # (Manual) 0.0 K/mm3 (0.0-0.4) 06/24/21 04:55 Basophils # (Manual) 0.0 K/mm3 (0.0-0.1) 06/24/21 04:55 Metamyelocytes # 0.0 K/mm3 06/24/21 04:55 Myelocytes # 1.5 K/mm3 06/24/21 04:55 Promyelocytes # 0.0 K/mm3 06/24/21 04:55 Blast Cells # 0.0 K/mm3 06/24/21 04:55 WBC Morphology Not Reportable 06/27/21 06:40 Hypersegmented Neuts Not Reportable 06/27/21 06:40 Hyposegmented Neuts Not Reportable 06/27/21 06:40 Hypogranular Neuts Not Reportable 06/27/21 06:40 Smudge Cells Not Reportable 06/27/21 06:40 Toxic Granulation Not Reportable 06/27/21 06:40 Toxic Vacuolation Not Reportable 06/27/21 06:40 Dohle Bodies Not Reportable 06/27/21 06:40 Pelger-Huet Anomaly Not Reportable 06/27/21 06:40 Nba Rods Not Reportable 06/27/21 06:40 Platelet Estimate 30 06/27/21 06:40 Clumped Platelets Not Reportable 06/27/21 06:40 Plt Clumps, EDTA Not Reportable 06/27/21 06:40 Large Platelets 1+ 06/27/21 06:40 Giant Platelets Not Reportable 06/27/21 06:40 Platelet Satelliting Not Reportable 06/27/21 06:40 Plt Morphology Comment Not Reportable 06/27/21 06:40 RBC Morphology Not Reportable 06/27/21 06:40 Dimorphic RBCs Not Reportable 06/27/21 06:40 Polychromasia Not Reportable 06/27/21 06:40 Hypochromasia Not Reportable 06/27/21 06:40 Poikilocytosis Not Reportable 06/27/21 06:40 Anisocytosis Not Reportable 06/27/21 06:40 Microcytosis Not Reportable 06/27/21 06:40 Macrocytosis Not Reportable 06/27/21 06:40 Spherocytes Not Reportable 06/27/21 06:40 Pappenheimer Bodies Not Reportable 06/27/21 06:40 Sickle Cells Not Reportable 06/27/21 06:40 Target Cells Not Reportable 06/27/21 06:40 Tear Drop Cells Not Reportable 06/27/21 06:40 Ovalocytes Not Reportable 06/27/21 06:40 Helmet Cells Not Reportable 06/27/21 06:40 [place] Bodies Not Reportable 06/27/21 06:40 [place] Rings Not Reportable 06/27/21 06:40 [place] Cells Not Reportable 06/27/21 06:40 Bite Cells Not Reportable 06/27/21 06:40 Crenated Cell Not Reportable 06/27/21 06:40 Elliptocytes 1+ 06/27/21 06:40 Acanthocytes (Spur) Not Reportable 06/27/21 06:40 Rouleaux Not Reportable 06/27/21 06:40 Hemoglobin C Crystals Not Reportable 06/27/21 06:40 Schistocytes Not Reportable 06/27/21 06:40 Malaria parasites Not Reportable 06/27/21 06:40 Luis Bodies Not Reportable 06/27/21 06:40 Hem Pathologist Commnt No 06/27/21 06:40 PT 16.5 Sec. (12.2-14.9) H 06/28/21 04:25 INR 1.27 (0.87-1.13) H 06/28/21 04:25 APTT 26.7 Sec. (24.2-36.6) 06/26/21 10:00 Fibrinogen 328 mg/dl (211-480) 06/26/21 10:00 D-Dimer 1363.54 ng/mlDDU (0-234) H 06/26/21 10:00 ABG pH 7.230 pH Units (7.350-7.450) L 06/27/21 Unknown POC ABG pCO2 60.1 mmHg (32.0-48.0) H 06/27/21 21:00 ABG pCO2 64.0 mm Hg 06/27/21 Unknown POC ABG pO2 83.2 mmHg (83-108) 06/27/21 21:00 ABG pO2 92.0 mm Hg (80.0-90.0) H 06/27/21 Unknown POC ABG HCO3 27.8 06/27/21 21:00 ABG HCO3 26.2 mmol/L (20.0-26.0) H 06/27/21 Unknown ABG O2 Saturation 96.8 % (95.0-99.0) 06/27/21 Unknown ABG O2 Content 11.1 (0.0-44) 06/27/21 Unknown POC ABG Base Excess 0.3 06/27/21 21:00 ABG Base Excess -1.7 mmol/L (-2.0-3.0) 06/27/21 Unknown ABG Hemoglobin 8.2 gm/dl (12.0-16.0) L 06/27/21 Unknown ABG Oxyhemoglobin 94.5 (94-98) 06/27/21 21:00 ABG Carboxyhemoglobin 1.7 % (0.0-5.0) 06/27/21 Unknown ABG Methemoglobin 0.5 % (0.0-1.5) 06/27/21 Unknown ABG Sodium 135.7 mmol/L (136.0-145.0) L 06/27/21 21:00 ABG Potassium 4.3 mmol/L (3.40-4.50) 06/27/21 21:00 ABG Chloride 97.0 mmol/L (98-107) L 06/27/21 21:00 ABG Glucose 309 mg/dL (65-95) H 06/27/21 21:00 Oxyhemoglobin 94.6 % (95.0-99.0) L 06/27/21 Unknown Carboxyhemoglobin 0.9 (0.5-1.5) 06/27/21 21:00 FiO2 75 % 06/27/21 Unknown FiO2 % 80 06/27/21 21:00 Sodium 138 mmol/L (137-145) 06/29/21 04:34 Potassium 5.2 mmol/L (3.6-5.0) H 06/29/21 04:34 Chloride 95.8 mmol/L (98-107) L 06/29/21 04:34 Carbon Dioxide 23 mmol/L (22-30) 06/29/21 04:34 Anion Gap 24 mmol/L 06/29/21 04:34 BUN 97 mg/dL (7-17) H 06/29/21 04:34 Creatinine 5.6 mg/dL (0.6-1.2) H 06/29/21 04:34 Estimated GFR 9 ml/min 06/29/21 04:34 BUN/Creatinine Ratio 17 % 06/29/21 04:34 Glucose 184 mg/dL (65-100) H 06/29/21 04:34 POC Glucose 161 mg/dL (70-105) H 06/29/21 12:30 Hemoglobin A1c 9.5 % (4-6) H 06/07/21 19:11 Calcium 8.1 mg/dL (8.4-10.2) L 06/29/21 04:34 Phosphorus 6.80 mg/dL (2.5-4.5) H D 06/28/21 04:25 Magnesium 2.30 mg/dL (1.7-2.3) 06/28/21 04:25 Ferritin 1094.0 ng/mL (10.0-200.0) H 06/23/21 Unknown Total Bilirubin 0.50 mg/dL (0.1-1.2) 06/29/21 04:34 AST 22 units/L (5-40) 06/29/21 04:34 ALT 23 units/L (7-56) 06/29/21 04:34 Alkaline Phosphatase 132 units/L (35-129) H 06/29/21 04:34 Lactate Dehydrogenase 606 units/L (91-180) H 06/10/21 23:14 Troponin T 0.021 ng/mL (0.00-0.029) 06/08/21 13:49 C-Reactive Protein 4.40 mg/dL (0.00-1.30) H 06/23/21 04:42 Serum Total Protein 7.0 g/dL (6.1-8.1) 06/10/21 23:14 Total Protein 6.0 g/dL (6.3-8.2) L 06/29/21 04:34 Albumin 3.3 g/dL (3.9-5) L 06/29/21 04:34 Albumin/Globulin Ratio 1.2 % 06/29/21 04:34 Hkldr-2-Uogmdglwa 0.5 g/dL (0.2-0.3) H 06/10/21 23:14 Ngyjg-4-Pcyedlwhl 1.7 g/dL (0.5-0.9) H 06/10/21 23:14 Beta Globulins 0.6 g/dL (0.2-0.5) H 06/10/21 23:14 Gamma Globulins 1.3 g/dL (0.8-1.7) 06/10/21 23:14 Abnorm Protein Band 1 see below 06/10/21 23:14 PEP Interpretation see below H 06/10/21 23:14 Triglycerides 209 mg/dL (2-149) H 06/07/21 19:11 Cholesterol 165 mg/dL (50-199) 06/07/21 19:11 LDL Cholesterol Direct 79 mg/dL (50-130) 06/07/21 19:11 HDL Cholesterol 35 mg/dL (40-59) L 06/07/21 19:11 Cholesterol/HDL Ratio 4.71 % 06/07/21 19:11 Procalcitonin 0.91 ng/mL (<0.15) 06/07/21 19:11 Arterial Blood Glucose 309 mg/dL (65-95) H 06/27/21 21:00 Arterial Blood Ionized Calcium 4.4 mg/dL (4.6-5.3) L 06/27/21 16:30 Urine Color Sole (Yellow) 06/23/21 17:40 Urine Turbidity Cloudy (Clear) 06/23/21 17:40 Urine pH 6.0 (5.0-7.0) 06/23/21 17:40 Ur Specific [place] 1.017 (1.003-1.030) 06/23/21 17:40 Urine Protein >500 mg/dL (Negative) 06/23/21 17:40 Urine Glucose (UA) 50 mg/dL (Negative) 06/23/21 17:40 Urine Ketones Neg mg/dL (Negative) 06/23/21 17:40 Urine Blood Lg (Negative) 06/23/21 17:40 Urine Nitrite Neg (Negative) 06/23/21 17:40 Urine Bilirubin Neg (Negative) 06/23/21 17:40 Urine Urobilinogen < 2.0 mg/dL (<2.0) 06/23/21 17:40 Ur Leukocyte Esterase Mod (Negative) 06/23/21 17:40 Urine WBC (Auto) > 182.0 /HPF (0.0-6.0) H 06/23/21 17:40 Urine RBC (Auto) > 182.0 /HPF (0.0-6.0) 06/23/21 17:40 Urine WBC Clumps 3+ /HPF 06/23/21 17:40 Uric Acid Crystals 1+ 06/23/21 17:40 Urine Mucus Few /HPF 06/23/21 17:40 Random Vancomycin 13.8 ug/mL (0-40.0) 06/26/21 07:00 Coronavirus (PCR) Positive (Negative) A 06/08/21 08:30 Hepatitis A IgM Ab Non-reactive (NonReactive) 06/24/21 15:57 Hep Bs Antigen Nonreactive (Negative) 06/24/21 15:57 Hep B Core IgM Ab Non-reactive (NonReactive) 06/24/21 15:57 Hepatitis C Antibody Non-reactive (NonReactive) 06/24/21 15:57 Blood Type B POSITIVE 06/27/21 12:12 Antibody Screen Negative 06/27/21 12:12 Objective - Constitutional Vitals: Last Vital Signs Temp 97.8 F 06/29/21 10:30 Pulse 69 06/29/21 13:15 Resp 30 H 06/29/21 13:00 BP 103/59 06/29/21 13:15 Pulse Ox 94 06/29/21 13:00 - Labs Lab Results: Laboratory Results - last 24 hr 06/27/21 06/28/21 06/29/21 12:12 18:18 00:36 WBC RBC Hgb Hct MCV MCH MCHC RDW Plt Count Sodium Potassium Chloride Carbon Dioxide Anion Gap BUN Creatinine Estimated GFR BUN/Creatinine Ratio Glucose POC Glucose 228 H 153 H Calcium Total Bilirubin AST ALT Alkaline Phosphatase Total Protein Albumin Albumin/Globulin Ratio Blood Type B POSITIVE Antibody Screen Negative 06/29/21 06/29/21 06/29/21 04:34 04:34 05:19 WBC 12.0 H RBC 3.35 L Hgb 9.5 L Hct 29.4 L MCV 88 MCH 28 MCHC 32 RDW 16.1 H Plt Count 45 L Sodium 138 Potassium 5.2 H Chloride 95.8 L Carbon Dioxide 23 Anion Gap 24 BUN 97 H Creatinine 5.6 H Estimated GFR 9 BUN/Creatinine Ratio 17 Glucose 184 H POC Glucose 180 H Calcium 8.1 L Total Bilirubin 0.50 AST 22 ALT 23 Alkaline Phosphatase 132 H Total Protein 6.0 L Albumin 3.3 L Albumin/Globulin Ratio 1.2 Blood Type Antibody Screen 06/29/21 12:30 WBC RBC Hgb Hct MCV MCH MCHC RDW Plt Count Sodium Potassium Chloride Carbon Dioxide Anion Gap BUN Creatinine Estimated GFR BUN/Creatinine Ratio Glucose POC Glucose 161 H Calcium Total Bilirubin AST ALT Alkaline Phosphatase Total Protein Albumin Albumin/Globulin Ratio Blood Type Antibody Screen Medications & Allergies - Medications Allergies/Adverse Reactions: Allergies latex Allergy (Verified 03/19/19 17:03) Unknown shellfish derived Allergy (Verified 03/19/19 17:03) Anaphylaxis strawberry Allergy (Verified 03/19/19 17:03) Anaphylaxis tomato Allergy (Verified 03/19/19 17:03) Anaphylaxis nuts Allergy (Uncoded 03/19/19 17:03) Anaphylaxis Home Medications: Home Medications Medication Instructions Recorded Confirmed Last Taken Type Albuterol Sulfate [Ventolin HFA] 2 puff IH Q4H PRN 01/29/14 06/11/21 02/01/15 History Levothyroxine (Nf) [Synthroid (Nf)] 275 mcg PO QAM 01/29/14 06/11/21 02/01/15 History Fluticasone/Salmeterol [Advair 1 each IH PRN PRN 01/26/15 06/11/21 02/02/15 10:00 History Diskus 250-50 mcg] Apixaban [Eliquis starter pack] 5 mg PO BID 09/13/19 06/11/21 Unknown History Insulin Aspart Prot/Insuln Asp 45 unit SUB-Q QAM 09/13/19 06/11/21 Unknown History [Novolog Mix 70-30 Flexpen] Insulin Glargine,Hum.rec.anlog 25 unit SQ HS 09/13/19 06/11/21 Unknown History [Basaglar Kwikpen U-100] Lovastatin [Altoprev] 20 mg PO DAILY 09/13/19 06/11/21 Unknown History Docusate Sodium [Colace CAP] 100 mg PO BID PRN #30 capsule 09/17/19 06/11/21 Unknown Rx Loratadine/Pseudoephedrine 1 each PO Q24HR #10 tablet 09/17/19 06/11/21 Unknown Rx [Claritin-D 24HR] Ondansetron [Zofran Odt] 4 mg PO Q8HR #20 tab.rapdis 09/17/19 06/11/21 Unknown Rx carvediloL [Coreg] 3.125 mg PO BID #60 tablet 09/17/19 06/11/21 Unknown Rx hydrALAZINE [Apresoline TAB] 25 mg PO Q8HR #90 tablet 09/17/19 06/11/21 Unknown Rx Active Medications: Generic Name Dose Route Start Last Admin Trade Name Freq PRN Reason Stop Dose Admin Acetaminophen 650 mg 06/07/21 21:41 06/24/21 11:45 Acetaminophen 325 Mg Tab PO 650 mg Q4H PRN Administration Pain MILD(1-3)/Fever >100.5/MARTÍNEZ Albumin Human 25 gm 06/24/21 14:55 06/27/21 17:47 Albumin Human 25% (25 Gm/100 Ml) Inj IV 25 gm KORINA PRN Administration Hypotension Albuterol 2 mg 06/23/21 09:00 Albuterol 2.5 Mg/3 Ml Nebu IH Q4HRT PRN Shortness Of Breath Lipase/Protease/Amylase 1 each 06/28/21 12:15 Lipase 10,500/Protease 25,000/Amylase 43,750 (Units) Dr Barahona FEEDTUBE PRN PRN For Clogged Feeding Tube Ascorbic Acid 500 mg 06/22/21 22:00 06/29/21 09:34 Ascorbic Acid 500 Mg Tab PO 500 mg BID LEONOR Administration Atorvastatin Calcium 10 mg 06/08/21 10:00 06/29/21 09:34 Atorvastatin 10 Mg Tab PO 10 mg DAILY LEONOR Administration Dextrose 50 ml 06/08/21 12:04 06/20/21 12:16 Dextrose 50% In Water (25gm) 50 Ml Syringe IV 50 ml Q30MIN PRN Administration Hypoglycemia Protocol Diltiazem HCl 10 mg 06/29/21 11:15 06/29/21 12:48 Diltiazem 25 Mg/5 Ml Inj IV 06/29/21 15:15 10 mg ONCE@1115 LEONOR Administration Famotidine 10 mg 06/22/21 22:00 06/29/21 09:35 Famotidine 20 Mg/2 Ml Inj IV 10 mg BID LEONOR Administration Fentanyl 100 mcg 06/28/21 18:03 06/29/21 09:40 Fentanyl 100 Mcg/2 Ml Inj IV 100 mcg Q30MIN PRN Administration ANALGESIA Hydrophilic Ointment 1 applic 06/22/21 13:07 Lip Therapy Vaseline TP Q2HR PRN Dry Lips Fentanyl Citrate 2,000 mcg in 100 mls @ 8.2 mls/hr 06/22/21 14:00 06/29/21 12:48 Fentanyl Drip Premix IV 4 mcg/kg/hr TITR LEONOR 32.8 mls/hr Administration Protocol 1 MCG/KG/HR NORepinephrine/NS 8 MG-250 ML 8 mg in 250 mls @ 3.75 mls/hr 06/22/21 15:00 06/27/21 19:29 Norepinephrine/Ns 8 Mg-250 Ml (Double Conc) IV 0 mcg/min TITRATE LEONRO 0 mls/hr Titration Protocol 2 MCG/MIN Vasopressin 20 unit/ Sodium 101 mls @ 9.09 mls/hr 06/23/21 09:00 06/25/21 16:25 Chloride IV 0 units/min TITR LEONOR 0 mls/hr Titration Protocol 0.03 UNITS/MIN Sodium Chloride 500 mls @ 1 mls/hr 06/23/21 11:19 Nacl 0.9% 500 Ml IV DIRECT PRN ARTERIAL LINE FLUSH Lacosamide 100 mg/ Sodium 110 mls @ 100 mls/hr 06/23/21 15:00 06/29/21 03:56 Chloride IV 100 mls/hr Q12H LEONOR Administration Diltiazem HCl 100 mg in 100 mls @ 7.5 mls/hr 06/28/21 10:15 06/29/21 12:58 Cardizem/D5w 100mg/100ml IV 7.5 mg/hr TITR LEONOR 7.5 mls/hr Administration Protocol 7.5 MG/HR Sodium Chloride 100 mls @ 999 mls/hr 06/28/21 16:00 Nacl 0.9% IV KORINA PRN Hypotension Sodium Chloride 500 mls @ 0 mls/hr 06/29/21 10:00 Nacl 0.9% 500 Ml IV 06/29/21 23:59 ONCE NR As Directed Insulin Human Isoph/Insulin Regular 30 unit 06/28/21 10:30 06/29/21 09:35 Insulin Nph/Regular 70/30 Inj SUB-Q 30 unit TID LEONOR Administration Insulin Human Regular 0 units 06/22/21 18:00 06/29/21 12:48 Insulin Regular, Human 100 Units/1 Ml SUB-Q 3 units Q6HR LEONOR Administration Protocol Levothyroxine Sodium 137.5 mcg 06/23/21 06:00 06/29/21 06:32 Levothyroxine 100 Mcg Inj IV 137.5 mcg DAILY@0600 LEONOR Administration Methylprednisolone Sodium Succinate 100 mg 06/28/21 08:00 06/29/21 09:35 Methylprednisolone Sod Succinate 125 Mg/2 Ml Inj IV 100 mg Q12H LEONOR Administration Metoclopramide HCl 5 mg 06/29/21 14:00 Metoclopramide 10 Mg/2 Ml Inj IV 07/01/21 13:59 Q8HR LEONOR Midazolam HCl 5 mg 06/26/21 16:00 Midazolam 5 Mg/5 Ml Inj Mdv IV 07/06/21 23:59 PRN NR Midodrine 10 mg 06/22/21 15:00 06/29/21 12:38 Midodrine 5 Mg Tab PO Not Given Q8H LEONOR Multi-Ingred Cream/Lotion/Oil/Oint 1 applic 06/22/21 13:07 Mineral Oil/Petrolatum, White Ophth Oint 3.5 Gm OU Q4HR PRN Dry Eye(s) Ondansetron HCl 4 mg 06/07/21 21:41 06/20/21 22:15 Ondansetron 4 Mg/2 Ml Inj IV 4 mg Q8H PRN Administration Nausea And Vomiting Polyethylene Glycol 17 gm 06/27/21 13:16 Polyethylene Glycol 3350 17 Gm Powder PO QDAY PRN Constipation Senna/Docusate Sodium 1 tab 06/22/21 22:00 06/29/21 09:34 Sennosides/Docusate Sodium 8.6/50 Mg Tab FEEDTUBE 1 tab BID LEONOR Administration Simple Syrup 15 ml 06/28/21 12:15 Simple Syrup 15 Ml FEEDTUBE PRN PRN Hypoglycemia Simple Syrup 30 ml 06/28/21 12:15 Simple Syrup 15 Ml FEEDTUBE PRN PRN Hypoglycemia Sodium Bicarbonate 325 mg 06/28/21 12:15 Sodium Bicarbonate 325 Mg Tab FEEDTUBE PRN PRN For Clogged Feeding Tube Sodium Chloride 10 ml 06/07/21 22:00 06/29/21 09:32 Sodium Chloride 0.9% 10 Ml Flush Syringe IV 10 ml BID LEONOR Administration Sodium Chloride 10 ml 06/07/21 21:41 Sodium Chloride 0.9% 10 Ml Flush Syringe IV PRN PRN LINE FLUSH Zinc Sulfate 220 mg 06/22/21 22:00 06/29/21 09:34 Zinc Sulfate 220 Mg Cap PO 220 mg BID LEONOR Administration
--- NOTE | 2021-06-29 14:47 | Progress Note ---
Assessment and Plan Assessment COVID-19 breakthrough infection COVID-19 pneumonia Acute renal failure versus acute on chronic renal failure Acute hypoxic respiratory failure Insulin-dependent type 2 diabetes- uncontrolled Elevated troponin Hypertension-controlled Hypothyroidism Protein calorie malnutrition Hypernatremia Plan Hemodialysis today for UF and clearance HD prescription adjusted to decreased dialysate temp, sodium modeling, higher calcium bath, and PRN albumin to assist with hemodynamic stability during HD Assess need for HD on daily basis S/p Right IJ Vas catheter placement on 06/24/21 Initiated on HD on 06/24/21 Renal US was negative for hydronephrosis Renally dose medications Strict I&O's daily Renal plan reviewed by Dr Schultz Subjective Date of service: 06/29/21 Principal diagnosis: ARDS; Pneumonia; COVID-19 virus infection; TREMAINE; DM II; Morbid obesity Interval history: Patient on isolation for CVOID-19 infection. Now intubated Objective - Vital Signs Vital signs: Vital Signs - 12hr 06/29/21 06/29/21 06/29/21 02:54 03:00 04:00 Temperature 97.8 F Pulse Rate 122 H 130 H 105 H Pulse Rate [ 93 H From Monitor] Respiratory 30 H Rate Blood Pressure 110/60 149/75 O2 Sat by Pulse 88 89 98 Oximetry O2 Sat by Pulse Oximetry [ Anterior Bilateral Throughout] 06/29/21 06/29/21 06/29/21 04:01 05:00 06:00 Temperature Pulse Rate 117 H 114 H 125 H Pulse Rate [ From Monitor] Respiratory 30 H 30 H 30 H Rate Blood Pressure 126/69 116/58 128/74 O2 Sat by Pulse 88 91 91 Oximetry O2 Sat by Pulse Oximetry [ Anterior Bilateral Throughout] 06/29/21 06/29/21 06/29/21 07:00 08:00 08:07 Temperature 98.1 F Pulse Rate 121 H 103 H Pulse Rate [ 100 H From Monitor] Respiratory 30 H 30 H Rate Blood Pressure 133/71 113/63 O2 Sat by Pulse 92 95 Oximetry O2 Sat by Pulse Oximetry [ Anterior Bilateral Throughout] 06/29/21 06/29/21 06/29/21 09:00 09:12 10:00 Temperature Pulse Rate 122 H 100 H 128 H Pulse Rate [ From Monitor] Respiratory 30 H 29 H Rate Blood Pressure 121/68 113/63 150/79 O2 Sat by Pulse 94 94 91 Oximetry O2 Sat by Pulse Oximetry [ Anterior Bilateral Throughout] 06/29/21 06/29/21 06/29/21 10:30 10:34 10:45 Temperature 97.8 F Pulse Rate 122 H 121 H 121 H Pulse Rate [ From Monitor] Respiratory 13 Rate Blood Pressure 165/81 164/87 115/70 O2 Sat by Pulse Oximetry O2 Sat by Pulse 88 Oximetry [ Anterior Bilateral Throughout] 06/29/21 06/29/21 06/29/21 11:00 11:01 11:15 Temperature Pulse Rate 104 H 136 H 84 Pulse Rate [ From Monitor] Respiratory 30 H Rate Blood Pressure 92/57 92/57 91/52 O2 Sat by Pulse 88 Oximetry O2 Sat by Pulse Oximetry [ Anterior Bilateral Throughout] 06/29/21 06/29/21 06/29/21 11:30 11:45 12:00 Temperature Pulse Rate 105 H 78 116 H Pulse Rate [ 116 H From Monitor] Respiratory 30 H Rate Blood Pressure 95/54 103/57 100/55 O2 Sat by Pulse 91 Oximetry O2 Sat by Pulse Oximetry [ Anterior Bilateral Throughout] 06/29/21 06/29/21 06/29/21 12:15 12:30 12:45 Temperature Pulse Rate 90 78 94 H Pulse Rate [ From Monitor] Respiratory Rate Blood Pressure 112/64 108/58 123/60 O2 Sat by Pulse Oximetry O2 Sat by Pulse Oximetry [ Anterior Bilateral Throughout] 06/29/21 06/29/21 06/29/21 12:48 12:54 13:00 Temperature Pulse Rate 129 H 129 H 118 H Pulse Rate [ From Monitor] Respiratory 30 H Rate Blood Pressure 123/60 123/60 108/56 O2 Sat by Pulse 95 94 Oximetry O2 Sat by Pulse Oximetry [ Anterior Bilateral Throughout] 06/29/21 06/29/21 06/29/21 13:15 13:34 13:45 Temperature 97.7 F Pulse Rate 69 75 79 Pulse Rate [ From Monitor] Respiratory 29 H Rate Blood Pressure 103/59 121/56 114/66 O2 Sat by Pulse Oximetry O2 Sat by Pulse 93 Oximetry [ Anterior Bilateral Throughout] - Lab 06/29/21 04:34 06/29/21 04:34 Most recent lab results ABG pH 7.230 pH Units (7.350-7.450) L 06/27/21 Unknown ABG pCO2 64.0 mm Hg 06/27/21 Unknown ABG pO2 92.0 mm Hg (80.0-90.0) H 06/27/21 Unknown ABG HCO3 26.2 mmol/L (20.0-26.0) H 06/27/21 Unknown ABG O2 Saturation 96.8 % (95.0-99.0) 06/27/21 Unknown Calcium 8.1 mg/dL (8.4-10.2) L 06/29/21 04:34 Phosphorus 6.80 mg/dL (2.5-4.5) H D 06/28/21 04:25 Magnesium 2.30 mg/dL (1.7-2.3) 06/28/21 04:25 Medications & Allergies - Medications Allergies/Adverse Reactions: Allergies latex Allergy (Verified 03/19/19 17:03) Unknown shellfish derived Allergy (Verified 03/19/19 17:03) Anaphylaxis strawberry Allergy (Verified 03/19/19 17:03) Anaphylaxis tomato Allergy (Verified 03/19/19 17:03) Anaphylaxis nuts Allergy (Uncoded 03/19/19 17:03) Anaphylaxis Home Medications: Home Medications Medication Instructions Recorded Confirmed Last Taken Type Albuterol Sulfate [Ventolin HFA] 2 puff IH Q4H PRN 01/29/14 06/11/21 02/01/15 History Levothyroxine (Nf) [Synthroid (Nf)] 275 mcg PO QAM 01/29/14 06/11/21 02/01/15 History Fluticasone/Salmeterol [Advair 1 each IH PRN PRN 01/26/15 06/11/21 02/02/15 10:00 History Diskus 250-50 mcg] Apixaban [Eliquis starter pack] 5 mg PO BID 09/13/19 06/11/21 Unknown History Insulin Aspart Prot/Insuln Asp 45 unit SUB-Q QAM 09/13/19 06/11/21 Unknown History [Novolog Mix 70-30 Flexpen] Insulin Glargine,Hum.rec.anlog 25 unit SQ HS 09/13/19 06/11/21 Unknown History [Basaglar Kwikpen U-100] Lovastatin [Altoprev] 20 mg PO DAILY 09/13/19 06/11/21 Unknown History Docusate Sodium [Colace CAP] 100 mg PO BID PRN #30 capsule 09/17/19 06/11/21 Unknown Rx Loratadine/Pseudoephedrine 1 each PO Q24HR #10 tablet 09/17/19 06/11/21 Unknown Rx [Claritin-D 24HR] Ondansetron [Zofran Odt] 4 mg PO Q8HR #20 tab.rapdis 09/17/19 06/11/21 Unknown Rx carvediloL [Coreg] 3.125 mg PO BID #60 tablet 09/17/19 06/11/21 Unknown Rx hydrALAZINE [Apresoline TAB] 25 mg PO Q8HR #90 tablet 09/17/19 06/11/21 Unknown Rx Active Medications: Generic Name Dose Route Start Last Admin Trade Name Freq PRN Reason Stop Dose Admin Acetaminophen 650 mg 06/07/21 21:41 06/24/21 11:45 Acetaminophen 325 Mg Tab PO 650 mg Q4H PRN Administration Pain MILD(1-3)/Fever >100.5/MARTÍNEZ Albumin Human 25 gm 06/24/21 14:55 06/27/21 17:47 Albumin Human 25% (25 Gm/100 Ml) Inj IV 25 gm KORINA PRN Administration Hypotension Albuterol 2 mg 06/23/21 09:00 Albuterol 2.5 Mg/3 Ml Nebu IH Q4HRT PRN Shortness Of Breath Lipase/Protease/Amylase 1 each 06/28/21 12:15 Lipase 10,500/Protease 25,000/Amylase 43,750 (Units) Dr Barahona FEEDTUBE PRN PRN For Clogged Feeding Tube Ascorbic Acid 500 mg 06/22/21 22:00 06/29/21 09:34 Ascorbic Acid 500 Mg Tab PO 500 mg BID LEONOR Administration Atorvastatin Calcium 10 mg 06/08/21 10:00 06/29/21 09:34 Atorvastatin 10 Mg Tab PO 10 mg DAILY LEONOR Administration Dextrose 50 ml 06/08/21 12:04 06/20/21 12:16 Dextrose 50% In Water (25gm) 50 Ml Syringe IV 50 ml Q30MIN PRN Administration Hypoglycemia Protocol Diltiazem HCl 10 mg 06/29/21 11:15 06/29/21 12:48 Diltiazem 25 Mg/5 Ml Inj IV 06/29/21 15:15 10 mg ONCE@1115 LEONOR Administration Famotidine 10 mg 06/22/21 22:00 06/29/21 09:35 Famotidine 20 Mg/2 Ml Inj IV 10 mg BID LEONOR Administration Fentanyl 100 mcg 06/28/21 18:03 06/29/21 09:40 Fentanyl 100 Mcg/2 Ml Inj IV 100 mcg Q30MIN PRN Administration ANALGESIA Hydrophilic Ointment 1 applic 06/22/21 13:07 Lip Therapy Vaseline TP Q2HR PRN Dry Lips Fentanyl Citrate 2,000 mcg in 100 mls @ 8.2 mls/hr 06/22/21 14:00 06/29/21 12:48 Fentanyl Drip Premix IV 4 mcg/kg/hr TITR LEONOR 32.8 mls/hr Administration Protocol 1 MCG/KG/HR NORepinephrine/NS 8 MG-250 ML 8 mg in 250 mls @ 3.75 mls/hr 06/22/21 15:00 06/27/21 19:29 Norepinephrine/Ns 8 Mg-250 Ml (Double Conc) IV 0 mcg/min TITRATE LEONOR 0 mls/hr Titration Protocol 2 MCG/MIN Vasopressin 20 unit/ Sodium 101 mls @ 9.09 mls/hr 06/23/21 09:00 06/25/21 16:25 Chloride IV 0 units/min TITR LEONOR 0 mls/hr Titration Protocol 0.03 UNITS/MIN Sodium Chloride 500 mls @ 1 mls/hr 06/23/21 11:19 Nacl 0.9% 500 Ml IV DIRECT PRN ARTERIAL LINE FLUSH Lacosamide 100 mg/ Sodium 110 mls @ 100 mls/hr 06/23/21 15:00 06/29/21 03:56 Chloride IV 100 mls/hr Q12H LEONOR Administration Diltiazem HCl 100 mg in 100 mls @ 7.5 mls/hr 06/28/21 10:15 06/29/21 12:58 Cardizem/D5w 100mg/100ml IV 7.5 mg/hr TITR LEONOR 7.5 mls/hr Administration Protocol 7.5 MG/HR Sodium Chloride 100 mls @ 999 mls/hr 06/28/21 16:00 Nacl 0.9% IV KORINA PRN Hypotension Sodium Chloride 500 mls @ 0 mls/hr 06/29/21 10:00 Nacl 0.9% 500 Ml IV 06/29/21 23:59 ONCE NR As Directed Insulin Human Isoph/Insulin Regular 30 unit 06/28/21 10:30 06/29/21 09:35 Insulin Nph/Regular 70/30 Inj SUB-Q 30 unit TID [facility] Administration Insulin Human Regular 0 units 06/22/21 18:00 06/29/21 12:48 Insulin Regular, Human 100 Units/1 Ml SUB-Q 3 units Q6HR [facility] Administration Protocol Levothyroxine Sodium 137.5 mcg 06/23/21 06:00 06/29/21 06:32 Levothyroxine 100 Mcg Inj IV 137.5 mcg DAILY@0600 [facility] Administration Methylprednisolone Sodium Succinate 100 mg 06/28/21 08:00 06/29/21 09:35 Methylprednisolone Sod Succinate 125 Mg/2 Ml Inj IV 100 mg Q12H [facility] Administration Metoclopramide HCl 5 mg 06/29/21 14:00 Metoclopramide 10 Mg/2 Ml Inj IV 07/01/21 13:59 Q8HR [facility] Midazolam HCl 5 mg 06/26/21 16:00 Midazolam 5 Mg/5 Ml Inj Mdv IV 07/06/21 23:59 PRN NR Midodrine 10 mg 06/22/21 15:00 06/29/21 12:38 Midodrine 5 Mg Tab PO Not Given Q8H [facility] Multi-Ingred Cream/Lotion/Oil/Oint 1 applic 06/22/21 13:07 Mineral Oil/Petrolatum, White Ophth Oint 3.5 Gm OU Q4HR PRN Dry Eye(s) Ondansetron HCl 4 mg 06/07/21 21:41 06/20/21 22:15 Ondansetron 4 Mg/2 Ml Inj IV 4 mg Q8H PRN Administration Nausea And Vomiting Polyethylene Glycol 17 gm 06/27/21 13:16 Polyethylene Glycol 3350 17 Gm Powder PO QDAY PRN Constipation Senna/Docusate Sodium 1 tab 06/22/21 22:00 06/29/21 09:34 Sennosides/Docusate Sodium 8.6/50 Mg Tab FEEDTUBE 1 tab BID LEONOR Administration Simple Syrup 15 ml 06/28/21 12:15 Simple Syrup 15 Ml FEEDTUBE PRN PRN Hypoglycemia Simple Syrup 30 ml 06/28/21 12:15 Simple Syrup 15 Ml FEEDTUBE PRN PRN Hypoglycemia Sodium Bicarbonate 325 mg 06/28/21 12:15 Sodium Bicarbonate 325 Mg Tab FEEDTUBE PRN PRN For Clogged Feeding Tube Sodium Chloride 10 ml 06/07/21 22:00 06/29/21 09:32 Sodium Chloride 0.9% 10 Ml Flush Syringe IV 10 ml BID LEONOR Administration Sodium Chloride 10 ml 06/07/21 21:41 Sodium Chloride 0.9% 10 Ml Flush Syringe IV PRN PRN LINE FLUSH Zinc Sulfate 220 mg 06/22/21 22:00 06/29/21 09:34 Zinc Sulfate 220 Mg Cap PO 220 mg BID LEONOR Administration
--- NOTE | 2021-06-29 15:48 | Progress Note ---
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 Hospital Course to Date: 06/27/21- Patient remains intubated and sedated on fent gtt, RASS -2 to -3, not following any commands. Afib with RVR overnight was started on amio gtt, no BM for over 7days, bowel regimen was adjusted and reglan was added. Remains on high dose steroids, will start weaning steroids to twice a day starting tomorrow. Electrolytes imbalance noted with worsening in renal function, plan for HD today. 1jumbo of plt ordered for worsening throbocytopenia. Continue t o monitor electrolytes and renal function, am labs ordered. 06/28/21- Patient status is unchanged, remains on the vent and on low dose fentanyl. Plt still less than 50 s/p 1unit of plt, ddtional 1 unit of plt ordered. Afib with RVR this am, d/w cardio plan to switch amio gtt to cardizem gtt for rate control. Patient remains hyperglycemic adjustment made to basal insulin. will continue to monitor, am labs ordered 06/29/21- Patient status is unchanged, on the vent and on fentanyl gtt, arousable but does not follow commands with +gag and cough. Remains of the cardizem gtt for rate control, off pressors. Platelet 45 this am, 1unit of platelets orderd. Plan for HD today per Nephro. Continue to monitor renal f unction and electrolytes. Assessment and Plan #Neuro: Seizure, acute metabolic encephalopathy -Witnessed seizure (06/23/2021) -06/26 CT head with no acute findings -EEG report pending -Continue Vimpat 100 mg twice daily in the setting of worsening renal function -Neurology consulted, appreciate recommendations -Aspiration/seizure precautions -Sedated with fentanyl for RASS goal of 0 to -1 #Cardio: Atrial Fibrilation #Hypotension #H/o CAD -Afib RVR 110 to 120 -amio gtt D/C, Per Cardio plan to transition to cardizem gtt for rate control -Off pressors this morning -Vasopressor support as needed for MAP goal >65 -Hold antihypertensive at this time in the setting of hypotension -Continue home statin -Continue midodrine -AC on hold due to bleed and low plt #Respiratory: Acute hypoxic respiratory failure, ARDS 2/2 COVID 19 PNA -06/22 intubated with 7.50 ETT at 23 at the lips -Vent setting: A/C 80%,14,32,450 -Remain acidotic from this am ABGs, d/w CCM vent changes made -Still on high dose steriods, start weaning steroids today -Continue daily serial ABGs and CXR #GI: MO, protein calorie malnutrition -Reglan added on 06/27 to promote peristalsis -Last BM on 06/14 -Continue BR: Senokot, colace, Miralax added -Continue enteral nutrition as tolerated -consider KUB if patient start having emesis -Continue PPI- Pepcid #: CKD stage III #hyperkalemia; hyperphosphatemia #metabolic acidosis -Nephrology consulted, appreciate recommendations -Hemodialysis initiated status post placement of access; last received on 06/25/2021 -Electrolytes imbalance improved -last HD on 06/27- 1L out -Continue HD management per Nephro -Renally dosed medications and avoid nephrotoxic medications #Heme: h/o DVT, coagulopathy of COVID #Thrombocytopenia -Patient was on Eliquis which was discontinued and converted to therapeutic Lovenox -Lovenox was switched to Heparin in the setting of worsening renal function -Bilateral lower extremity Doppler ultrasound completed-> no acute DVT -Transitioned to Eliquis for anticoagulation in the setting of worsening thrombocytopenia, now on hold due to bleeding from ETT - Plt 45 today s/p 2 unit of plt; additional 1 unit ordered -HEME on consult, appreciate recommendations -Pending HIT assay results -SCDs to bilateral directions while in bed -Trend CBC daily -Transfuse for hemoglobin less than 7 and plt less than 50 #ID: Sepsis, COVID-19 pneumonia -Infectious disease consulted, appreciate recommendations -S/p steroids for 10 days; S/p remdesivir -Still on high dose steroids -Vitamin C/zinc/vitamin D -contact/droplet isolation precautions -Trend COVID-19 inflammatory markers every 2-3 days -Currently on cefepime and vancomycin #Endo: Hyperglycemia; #H/o insulin-dependent diabetes #Hypothyroidism -Continue IV levothyroxine 200 mcg -On high dose steroids -Accu-Cheks every 6 hours; on high dose SSI -Adjusted NPH TID for better glucose control -Goal glucose 140-180 while critically ill The high probability of a clinically significant, sudden or life threatening deterioration of the [cardio, respiratory, Endo] system(s) required my full and direct attention, intervention and personal management. The aggregate critical care time was [60] minutes. This time is in addition to time spent performing reported procedures but includes the following: [x] Data Review and interpretation [x] Patient assessment and monitoring of vital signs [x] Documentation [x] Medication orders and management Disposition Plan: Continue medical management Total Time Spent with Patient (Minutes): 60 History Interval history: Patient seen and examined. Remains intubated and sedated on fent gtt. Remains in afib with RVR, on cardizem gtt for rate control. No significant events overnight Hospitalist Physical - Constitutional Vitals: Temp Pulse Resp BP Pulse Ox 97.7 F 98 H 12 213/94 89 06/29/21 13:45 06/29/21 15:15 06/29/21 15:15 06/29/21 15:15 06/29/21 15:15 General appearance: Present: no acute distress, well-nourished, obese HEART Score - HEART Score EKG: Non-specific Age: 45-65 Risk factors: 1-2 risk factors Troponin: Troponin T 0.021 ng/mL (0.00-0.029) 06/08/21 13:49 - Critical Actions Critical Actions: 0-3 pts:0.9-1.7%risk of adverse cardiac event.Candidate for discharge Results - Labs CBC & Chem 7: 06/29/21 04:34 06/29/21 04:34 Labs: Laboratory Last Values WBC 12.0 K/mm3 (4.5-11.0) H 06/29/21 04:34 RBC 3.35 M/mm3 (3.65-5.03) L 06/29/21 04:34 Hgb 9.5 gm/dl (10.1-14.3) L 06/29/21 04:34 Hct 29.4 % (30.3-42.9) L 06/29/21 04:34 MCV 88 fl (79-97) 06/29/21 04:34 MCH 28 pg (28-32) 06/29/21 04:34 MCHC 32 % (30-34) 06/29/21 04:34 RDW 16.1 % (13.2-15.2) H 06/29/21 04:34 Plt Count 45 K/mm3 (140-440) L 06/29/21 04:34 Lymph % (Auto) 7.6 % (13.4-35.0) L 06/28/21 04:25 [place] % (Auto) 5.6 % (0.0-7.3) 06/28/21 04:25 Eos % (Auto) 0.0 % (0.0-4.3) 06/28/21 04:25 Baso % (Auto) 0.1 % (0.0-1.8) 06/28/21 04:25 Lymph # (Auto) 0.9 K/mm3 (1.2-5.4) L 06/28/21 04:25 [place] # (Auto) 0.7 K/mm3 (0.0-0.8) 06/28/21 04:25 Eos # (Auto) 0.0 K/mm3 (0.0-0.4) 06/28/21 04:25 Baso # (Auto) 0.0 K/mm3 (0.0-0.1) 06/28/21 04:25 Add Manual Diff Complete 06/27/21 06:40 Total Counted 100 06/24/21 04:55 Seg Neutrophils % 86.7 % (40.0-70.0) H 06/28/21 04:25 Seg Neuts % (Manual) 68.0 % (40.0-70.0) 06/24/21 04:55 Band Neutrophils % 23.0 % 06/24/21 04:55 Lymphocytes % (Manual) 1.0 % (13.4-35.0) L 06/24/21 04:55 Monocytes % (Manual) 6.0 % (0.0-7.3) 06/23/21 04:42 Eosinophils % (Manual) 2.0 % (0.0-4.3) 06/23/21 04:42 Metamyelocytes % 2.0 % 06/10/21 23:14 Myelocytes % 8.0 % 06/24/21 04:55 Nucleated RBC % Not Reportable 06/27/21 06:40 Seg Neutrophils # 10.0 K/mm3 (1.8-7.7) H 06/28/21 04:25 Seg Neutrophils # Man 12.7 K/mm3 (1.8-7.7) H 06/24/21 04:55 Band Neutrophils # 4.3 K/mm3 06/24/21 04:55 Lymphocytes # (Manual) 0.2 K/mm3 (1.2-5.4) L 06/24/21 04:55 Abs React Lymphs (Man) 0.0 K/mm3 06/24/21 04:55 Monocytes # (Manual) 0.0 K/mm3 (0.0-0.8) 06/24/21 04:55 Eosinophils # (Manual) 0.0 K/mm3 (0.0-0.4) 06/24/21 04:55 Basophils # (Manual) 0.0 K/mm3 (0.0-0.1) 06/24/21 04:55 Metamyelocytes # 0.0 K/mm3 06/24/21 04:55 Myelocytes # 1.5 K/mm3 06/24/21 04:55 Promyelocytes # 0.0 K/mm3 06/24/21 04:55 Blast Cells # 0.0 K/mm3 06/24/21 04:55 WBC Morphology Not Reportable 06/27/21 06:40 Hypersegmented Neuts Not Reportable 06/27/21 06:40 Hyposegmented Neuts Not Reportable 06/27/21 06:40 Hypogranular Neuts Not Reportable 06/27/21 06:40 Smudge Cells Not Reportable 06/27/21 06:40 Toxic Granulation Not Reportable 06/27/21 06:40 Toxic Vacuolation Not Reportable 06/27/21 06:40 Dohle Bodies Not Reportable 06/27/21 06:40 Pelger-Huet Anomaly Not Reportable 06/27/21 06:40 Nba Rods Not Reportable 06/27/21 06:40 Platelet Estimate 30 06/27/21 06:40 Clumped Platelets Not Reportable 06/27/21 06:40 Plt Clumps, EDTA Not Reportable 06/27/21 06:40 Large Platelets 1+ 06/27/21 06:40 Giant Platelets Not Reportable 06/27/21 06:40 Platelet Satelliting Not Reportable 06/27/21 06:40 Plt Morphology Comment Not Reportable 06/27/21 06:40 RBC Morphology Not Reportable 06/27/21 06:40 Dimorphic RBCs Not Reportable 06/27/21 06:40 Polychromasia Not Reportable 06/27/21 06:40 Hypochromasia Not Reportable 06/27/21 06:40 Poikilocytosis Not Reportable 06/27/21 06:40 Anisocytosis Not Reportable 06/27/21 06:40 Microcytosis Not Reportable 06/27/21 06:40 Macrocytosis Not Reportable 06/27/21 06:40 Spherocytes Not Reportable 06/27/21 06:40 Pappenheimer Bodies Not Reportable 06/27/21 06:40 Sickle Cells Not Reportable 06/27/21 06:40 Target Cells Not Reportable 06/27/21 06:40 Tear Drop Cells Not Reportable 06/27/21 06:40 Ovalocytes Not Reportable 06/27/21 06:40 Helmet Cells Not Reportable 06/27/21 06:40 [place] Bodies Not Reportable 06/27/21 06:40 [place] Rings Not Reportable 06/27/21 06:40 [place] Cells Not Reportable 06/27/21 06:40 Bite Cells Not Reportable 06/27/21 06:40 Crenated Cell Not Reportable 06/27/21 06:40 Elliptocytes 1+ 06/27/21 06:40 Acanthocytes (Spur) Not Reportable 06/27/21 06:40 Rouleaux Not Reportable 06/27/21 06:40 Hemoglobin C Crystals Not Reportable 06/27/21 06:40 Schistocytes Not Reportable 06/27/21 06:40 Malaria parasites Not Reportable 06/27/21 06:40 Luis Bodies Not Reportable 06/27/21 06:40 Hem Pathologist Commnt No 06/27/21 06:40 PT 16.5 Sec. (12.2-14.9) H 06/28/21 04:25 INR 1.27 (0.87-1.13) H 06/28/21 04:25 APTT 26.7 Sec. (24.2-36.6) 06/26/21 10:00 Fibrinogen 328 mg/dl (211-480) 06/26/21 10:00 D-Dimer 1363.54 ng/mlDDU (0-234) H 06/26/21 10:00 ABG pH 7.230 pH Units (7.350-7.450) L 06/27/21 Unknown POC ABG pCO2 60.1 mmHg (32.0-48.0) H 06/27/21 21:00 ABG pCO2 64.0 mm Hg 06/27/21 Unknown POC ABG pO2 83.2 mmHg (83-108) 06/27/21 21:00 ABG pO2 92.0 mm Hg (80.0-90.0) H 06/27/21 Unknown POC ABG HCO3 27.8 06/27/21 21:00 ABG HCO3 26.2 mmol/L (20.0-26.0) H 06/27/21 Unknown ABG O2 Saturation 96.8 % (95.0-99.0) 06/27/21 Unknown ABG O2 Content 11.1 (0.0-44) 06/27/21 Unknown POC ABG Base Excess 0.3 06/27/21 21:00 ABG Base Excess -1.7 mmol/L (-2.0-3.0) 06/27/21 Unknown ABG Hemoglobin 8.2 gm/dl (12.0-16.0) L 06/27/21 Unknown ABG Oxyhemoglobin 94.5 (94-98) 06/27/21 21:00 ABG Carboxyhemoglobin 1.7 % (0.0-5.0) 06/27/21 Unknown ABG Methemoglobin 0.5 % (0.0-1.5) 06/27/21 Unknown ABG Sodium 135.7 mmol/L (136.0-145.0) L 06/27/21 21:00 ABG Potassium 4.3 mmol/L (3.40-4.50) 06/27/21 21:00 ABG Chloride 97.0 mmol/L (98-107) L 06/27/21 21:00 ABG Glucose 309 mg/dL (65-95) H 06/27/21 21:00 Oxyhemoglobin 94.6 % (95.0-99.0) L 06/27/21 Unknown Carboxyhemoglobin 0.9 (0.5-1.5) 06/27/21 21:00 FiO2 75 % 06/27/21 Unknown FiO2 % 80 06/27/21 21:00 Sodium 138 mmol/L (137-145) 06/29/21 04:34 Potassium 5.2 mmol/L (3.6-5.0) H 06/29/21 04:34 Chloride 95.8 mmol/L (98-107) L 06/29/21 04:34 Carbon Dioxide 23 mmol/L (22-30) 06/29/21 04:34 Anion Gap 24 mmol/L 06/29/21 04:34 BUN 97 mg/dL (7-17) H 06/29/21 04:34 Creatinine 5.6 mg/dL (0.6-1.2) H 06/29/21 04:34 Estimated GFR 9 ml/min 06/29/21 04:34 BUN/Creatinine Ratio 17 % 06/29/21 04:34 Glucose 184 mg/dL (65-100) H 06/29/21 04:34 POC Glucose 161 mg/dL (70-105) H 06/29/21 12:30 Hemoglobin A1c 9.5 % (4-6) H 06/07/21 19:11 Calcium 8.1 mg/dL (8.4-10.2) L 06/29/21 04:34 Phosphorus 6.80 mg/dL (2.5-4.5) H D 06/28/21 04:25 Magnesium 2.30 mg/dL (1.7-2.3) 06/28/21 04:25 Ferritin 1094.0 ng/mL (10.0-200.0) H 06/23/21 Unknown Total Bilirubin 0.50 mg/dL (0.1-1.2) 06/29/21 04:34 AST 22 units/L (5-40) 06/29/21 04:34 ALT 23 units/L (7-56) 06/29/21 04:34 Alkaline Phosphatase 132 units/L (35-129) H 06/29/21 04:34 Lactate Dehydrogenase 606 units/L (91-180) H 06/10/21 23:14 Troponin T 0.021 ng/mL (0.00-0.029) 06/08/21 13:49 C-Reactive Protein 4.40 mg/dL (0.00-1.30) H 06/23/21 04:42 Serum Total Protein 7.0 g/dL (6.1-8.1) 06/10/21 23:14 Total Protein 6.0 g/dL (6.3-8.2) L 06/29/21 04:34 Albumin 3.3 g/dL (3.9-5) L 06/29/21 04:34 Albumin/Globulin Ratio 1.2 % 06/29/21 04:34 Rzais-1-Rfwyavugm 0.5 g/dL (0.2-0.3) H 06/10/21 23:14 Xafof-8-Hbbgssiaz 1.7 g/dL (0.5-0.9) H 06/10/21 23:14 Beta Globulins 0.6 g/dL (0.2-0.5) H 06/10/21 23:14 Gamma Globulins 1.3 g/dL (0.8-1.7) 06/10/21 23:14 Abnorm Protein Band 1 see below 06/10/21 23:14 PEP Interpretation see below H 06/10/21 23:14 Triglycerides 209 mg/dL (2-149) H 06/07/21 19:11 Cholesterol 165 mg/dL (50-199) 06/07/21 19:11 LDL Cholesterol Direct 79 mg/dL (50-130) 06/07/21 19:11 HDL Cholesterol 35 mg/dL (40-59) L 06/07/21 19:11 Cholesterol/HDL Ratio 4.71 % 06/07/21 19:11 Procalcitonin 0.91 ng/mL (<0.15) 06/07/21 19:11 Arterial Blood Glucose 309 mg/dL (65-95) H 06/27/21 21:00 Arterial Blood Ionized Calcium 4.4 mg/dL (4.6-5.3) L 06/27/21 16:30 Urine Color Sole (Yellow) 06/23/21 17:40 Urine Turbidity Cloudy (Clear) 06/23/21 17:40 Urine pH 6.0 (5.0-7.0) 06/23/21 17:40 Ur Specific [place] 1.017 (1.003-1.030) 06/23/21 17:40 Urine Protein >500 mg/dL (Negative) 06/23/21 17:40 Urine Glucose (UA) 50 mg/dL (Negative) 06/23/21 17:40 Urine Ketones Neg mg/dL (Negative) 06/23/21 17:40 Urine Blood Lg (Negative) 06/23/21 17:40 Urine Nitrite Neg (Negative) 06/23/21 17:40 Urine Bilirubin Neg (Negative) 06/23/21 17:40 Urine Urobilinogen < 2.0 mg/dL (<2.0) 06/23/21 17:40 Ur Leukocyte Esterase Mod (Negative) 06/23/21 17:40 Urine WBC (Auto) > 182.0 /HPF (0.0-6.0) H 06/23/21 17:40 Urine RBC (Auto) > 182.0 /HPF (0.0-6.0) 06/23/21 17:40 Urine WBC Clumps 3+ /HPF 06/23/21 17:40 Uric Acid Crystals 1+ 06/23/21 17:40 Urine Mucus Few /HPF 06/23/21 17:40 Random Vancomycin 13.8 ug/mL (0-40.0) 06/26/21 07:00 Coronavirus (PCR) Positive (Negative) A 06/08/21 08:30 Hepatitis A IgM Ab Non-reactive (NonReactive) 06/24/21 15:57 Hep Bs Antigen Nonreactive (Negative) 06/24/21 15:57 Hep B Core IgM Ab Non-reactive (NonReactive) 06/24/21 15:57 Hepatitis C Antibody Non-reactive (NonReactive) 06/24/21 15:57 Blood Type B POSITIVE 06/27/21 12:12 Antibody Screen Negative 06/27/21 12:12 Roland/IV: Voiding Method Indwelling Catheter Active Medications - Current Medications Current Medications: Generic Name Dose Route Start Last Admin Trade Name Freq PRN Reason Stop Dose Admin Acetaminophen 650 mg 06/07/21 21:41 06/24/21 11:45 Acetaminophen 325 Mg Tab PO 650 mg Q4H PRN Administration Pain MILD(1-3)/Fever >100.5/MARTÍNEZ Albumin Human 25 gm 06/24/21 14:55 06/27/21 17:47 Albumin Human 25% (25 Gm/100 Ml) Inj IV 25 gm KORINA PRN Administration Hypotension Albuterol 2 mg 06/23/21 09:00 Albuterol 2.5 Mg/3 Ml Nebu IH Q4HRT PRN Shortness Of Breath Lipase/Protease/Amylase 1 each 06/28/21 12:15 Lipase 10,500/Protease 25,000/Amylase 43,750 (Units) Dr Jun FEEDTUBE PRN PRN For Clogged Feeding Tube Ascorbic Acid 500 mg 06/22/21 22:00 06/29/21 09:34 Ascorbic Acid 500 Mg Tab PO 500 mg BID LEONOR Administration Atorvastatin Calcium 10 mg 06/08/21 10:00 06/29/21 09:34 Atorvastatin 10 Mg Tab PO 10 mg DAILY LEONOR Administration Dextrose 50 ml 06/08/21 12:04 06/20/21 12:16 Dextrose 50% In Water (25gm) 50 Ml Syringe IV 50 ml Q30MIN PRN Administration Hypoglycemia Protocol Famotidine 10 mg 06/22/21 22:00 06/29/21 09:35 Famotidine 20 Mg/2 Ml Inj IV 10 mg BID LEONOR Administration Fentanyl 100 mcg 06/28/21 18:03 06/29/21 09:40 Fentanyl 100 Mcg/2 Ml Inj IV 100 mcg Q30MIN PRN Administration ANALGESIA Hydrophilic Ointment 1 applic 06/22/21 13:07 Lip Therapy Vaseline TP Q2HR PRN Dry Lips Fentanyl Citrate 2,000 mcg in 100 mls @ 8.2 mls/hr 06/22/21 14:00 06/29/21 12:48 Fentanyl Drip Premix IV 4 mcg/kg/hr TITR LEONOR 32.8 mls/hr Administration Protocol 1 MCG/KG/HR NORepinephrine/NS 8 MG-250 ML 8 mg in 250 mls @ 3.75 mls/hr 06/22/21 15:00 06/27/21 19:29 Norepinephrine/Ns 8 Mg-250 Ml (Double Conc) IV 0 mcg/min TITRATE LEONOR 0 mls/hr Titration Protocol 2 MCG/MIN Vasopressin 20 unit/ Sodium 101 mls @ 9.09 mls/hr 06/23/21 09:00 06/25/21 16:25 Chloride IV 0 units/min TITR LEONOR 0 mls/hr Titration Protocol 0.03 UNITS/MIN Sodium Chloride 500 mls @ 1 mls/hr 06/23/21 11:19 Nacl 0.9% 500 Ml IV DIRECT PRN ARTERIAL LINE FLUSH Lacosamide 100 mg/ Sodium 110 mls @ 100 mls/hr 06/23/21 15:00 06/29/21 15:04 Chloride IV 100 mls/hr Q12H LEONOR Administration Diltiazem HCl 100 mg in 100 mls @ 7.5 mls/hr 06/28/21 10:15 06/29/21 12:58 Cardizem/D5w 100mg/100ml IV 7.5 mg/hr TITR LEONOR 7.5 mls/hr Administration Protocol 7.5 MG/HR Sodium Chloride 100 mls @ 999 mls/hr 06/28/21 16:00 Nacl 0.9% IV KORINA PRN Hypotension Sodium Chloride 500 mls @ 0 mls/hr 06/29/21 10:00 Nacl 0.9% 500 Ml IV 06/29/21 23:59 ONCE NR As Directed Insulin Human Isoph/Insulin Regular 30 unit 06/28/21 10:30 06/29/21 15:00 Insulin Nph/Regular 70/30 Inj SUB-Q 30 unit TID LEOONR Administration Insulin Human Regular 0 units 06/22/21 18:00 06/29/21 12:48 Insulin Regular, Human 100 Units/1 Ml SUB-Q 3 units Q6HR LEONOR Administration Protocol Levothyroxine Sodium 137.5 mcg 06/23/21 06:00 06/29/21 06:32 Levothyroxine 100 Mcg Inj IV 137.5 mcg DAILY@0600 [facility] Administration Methylprednisolone Sodium Succinate 100 mg 06/28/21 08:00 06/29/21 09:35 Methylprednisolone Sod Succinate 125 Mg/2 Ml Inj IV 100 mg Q12H LEONOR Administration Metoclopramide HCl 5 mg 06/29/21 14:00 06/29/21 15:04 Metoclopramide 10 Mg/2 Ml Inj IV 07/01/21 13:59 5 mg Q8HR LEONOR Administration Midazolam HCl 5 mg 06/26/21 16:00 Midazolam 5 Mg/5 Ml Inj Mdv IV 07/06/21 23:59 PRN NR Midodrine 10 mg 06/22/21 15:00 06/29/21 15:00 Midodrine 5 Mg Tab PO Not Given Q8H [facility] Multi-Ingred Cream/Lotion/Oil/Oint 1 applic 06/22/21 13:07 Mineral Oil/Petrolatum, White Ophth Oint 3.5 Gm OU Q4HR PRN Dry Eye(s) Ondansetron HCl 4 mg 06/07/21 21:41 06/20/21 22:15 Ondansetron 4 Mg/2 Ml Inj IV 4 mg Q8H PRN Administration Nausea And Vomiting Polyethylene Glycol 17 gm 06/27/21 13:16 Polyethylene Glycol 3350 17 Gm Powder PO QDAY PRN Constipation Senna/Docusate Sodium 1 tab 06/22/21 22:00 06/29/21 09:34 Sennosides/Docusate Sodium 8.6/50 Mg Tab FEEDTUBE 1 tab BID LEONOR Administration Simple Syrup 15 ml 06/28/21 12:15 Simple Syrup 15 Ml FEEDTUBE PRN PRN Hypoglycemia Simple Syrup 30 ml 06/28/21 12:15 Simple Syrup 15 Ml FEEDTUBE PRN PRN Hypoglycemia Sodium Bicarbonate 325 mg 06/28/21 12:15 Sodium Bicarbonate 325 Mg Tab FEEDTUBE PRN PRN For Clogged Feeding Tube Sodium Chloride 10 ml 06/07/21 22:00 06/29/21 09:32 Sodium Chloride 0.9% 10 Ml Flush Syringe IV 10 ml BID LEONOR Administration Sodium Chloride 10 ml 06/07/21 21:41 Sodium Chloride 0.9% 10 Ml Flush Syringe IV PRN PRN LINE FLUSH Zinc Sulfate 220 mg 06/22/21 22:00 06/29/21 09:34 Zinc Sulfate 220 Mg Cap PO 220 mg BID LEONOR Administration Nutrition/Malnutrition Assess - Dietary Evaluation Nutrition/Malnutrition Findings: Nutrition Notes Start: 06/08/21 10:56 Freq: Status: Active Protocol: Document 06/28/21 11:35 GB (Rec: 06/28/21 12:13 GB [id number]) Nutrition Notes Initial or Follow up Reassessment Current Diagnosis Acute Kidney Injury,Diabetes Other Pertinent Diagnosis Pneumonia/COVID-19, hypothyroidism. Current Diet Tube feeding - Nepro goal 50ml /hr Labs/Tests 06/28: Na 136, BUN 79, creatinine 4.8, glucose 301, P 6.8 showing improvement Pertinent Medications Vit C, D5 PRN, fentanyl citrate, Norepenephrine/Ns 8 - Mg 250, Zn Sulfate Height 5 ft 11 in Weight 190.4 kg [place] Body Weight (kg) 70.45 BMI 58.5 Weight change and time frame 06/24: 164.654kg 06/27: 190.4 kg change of +25.7kg for +15.6% significance Weight Status Morbidly Obese Subjective/Other Information note 10/11: HD on 06/27, renal labs declining, high residual TF held, begin weaning steroids BM: no bowel movement RECOMMEND: CHANGE TF TO 20ML/ HR UNTIL BM OCCURS, gradually increase back to goal. Percent of energy/protein needs met: Prescribed Tube feeding diet meets 75-100% energy/protein needs. Burn Absent Trauma Absent GI Symptoms Constipation Difficulty In Swallowing Food Allergy Yes Skin Integrity/Comment N/A Current % PO Other Minimum of two criteria No physical signs of malnutrition #1 Nutrition Diagnosis Inadequate energy intake Comments: 06/28: Hypo-active bowels, no movement Etiology COVID=19/pneumonia As Evidenced by Signs and Symptoms Fair tolerance to food, intake of meals between 0-25%. 06/28: intubated/sedated/on TF Diagnosis Progress(for reassessment Continues documentation) Is patient on ventilator? Yes Is Patient Ambulatory and/or Out of Bed No REE-(Only-[facility]-confined to bed) 3087.624 Kcal/Kg value to use for calculation 13 Approximate Energy Requirements Using 2475 kcal/Kg Additional Notes Protein: up to 0.7 g/Kg/day @ 164kg: up to 114g Fluids: 1.0 ml/Kcal, or as per MD. Nutrition Intervention Change Diet Order: NPO continue Nutrition Support: Nepro @ 50ml/hr Flush; 150ml every 4 hrs. or as per MD. Run TF at 20ml/hr until BM occurs (no bowel movement, +15% wt gain) Kcal 2,160 Protein (gm) 97 Carbohydrates (gm) 160 Fat (gm) 115 Fluid (mL) 872 Goal #1 Maintain body weight within +/ -3% of actual BWt during LOS. 06/28: not met, +15% r/t no bowel movement, poor renal function, compromised GI function Goal #2 Tolerate TF at goal rate of 50ml/hr during LOS 06/28: high residuals on 06/27 , no bowel movement Goal #3 Nutritional related labs to improve toward acceptable ranges during LOS. 06/28: continues Follow-Up By: 07/01/21 Additional Comments Nepro at minimal rate 20ml/hr. Flush 150/4hr. until BM occurs. Run at minimal rate x3 days.
[2021-06-29 16:37] LABS: Heparin-Induced Platelet Antib Negative (Negative); Unfractionated Heparin Negative (Negative)
--- NOTE | 2021-06-29 17:19 | Progress Note ---
Assessment and Plan Cultures: SARS CoV2 PCR: positive 06/08/2021 blood culture: No growth Urine culture: skin ade. A/P: 76-year-old female with diabetes, hypertension, history of liver abscess, Klebsiella bacteremia admitted with fever, chills, shortness of breath: #Bilateral pneumonia: secondary to COVID-19. Unvaccinated. Chest x-ray revealed bilateral patchy multifocal pneumonia, CT chest, abdomen pelvis revealed no pulmonary embolism, showed bilateral pneumonia, no acute abnormality in the abdomen or pelvis. #Acute hypoxic respiratory failure: on the vent #DM #HTN #Thrombocytopenia #TREMAINE: Reanlly dose medications Recs: Currently on high-dose methylprednisone Completed Remdesivir prophylactic anticoagulation based on d-dimer per hospital protocol Complete 7 days cefepime trend ferritin, d-dimer, CRP every 2-3 days Radha Butler MD [facility] ([facility]) O: [phone] F: [phone] Subjective Date of service: 06/29/21 Principal diagnosis: ARDS; Pneumonia; COVID-19 virus infection; TREMAINE; DM II; Morbid obesity Interval history: Afebrile, white count 12. Remains on the vent. Objective - Exam Narrative Exam: Physical exam deferred to reduce risk of transmission of COVID-19. Please refer to primary team's note. - Constitutional Vitals: Vital Signs Temp Pulse Resp BP Pulse Ox 97.8 F 88 26 H 203/88 91 06/29/21 16:00 06/29/21 17:00 06/29/21 17:00 06/29/21 17:00 06/29/21 17:00 Temperature -Last 24 Hours Temperature 97.8 F Temperature 97.5 F Temperature 97.7 F Temperature 97.8 F Temperature 98.1 F Temperature 97.8 F Temperature 97.8 F Temperature 97.6 F - Labs CBC & Chem 7: 06/29/21 04:34 06/29/21 04:34 Labs: Abnormal lab results 06/28/21 06/29/21 06/29/21 Range/Units 18:18 00:36 04:34 WBC 12.0 H (4.5-11.0) K/mm3 RBC 3.35 L (3.65-5.03) M/mm3 Hgb 9.5 L (10.1-14.3) gm/dl Hct 29.4 L (30.3-42.9) % RDW 16.1 H (13.2-15.2) % Plt Count 45 L (140-440) K/mm3 Potassium (3.6-5.0) mmol/L Chloride (98-107) mmol/L BUN (7-17) mg/dL Creatinine (0.6-1.2) mg/dL Glucose (65-100) mg/dL POC Glucose 228 H 153 H (70-105) mg/dL Calcium (8.4-10.2) mg/dL Alkaline Phosphatase (35-129) units/L Total Protein (6.3-8.2) g/dL Albumin (3.9-5) g/dL 06/29/21 06/29/21 06/29/21 Range/Units 04:34 05:19 12:30 WBC (4.5-11.0) K/mm3 RBC (3.65-5.03) M/mm3 Hgb (10.1-14.3) gm/dl Hct (30.3-42.9) % RDW (13.2-15.2) % Plt Count (140-440) K/mm3 Potassium 5.2 H (3.6-5.0) mmol/L Chloride 95.8 L (98-107) mmol/L BUN 97 H (7-17) mg/dL Creatinine 5.6 H (0.6-1.2) mg/dL Glucose 184 H (65-100) mg/dL POC Glucose 180 H 161 H (70-105) mg/dL Calcium 8.1 L (8.4-10.2) mg/dL Alkaline Phosphatase 132 H (35-129) units/L Total Protein 6.0 L (6.3-8.2) g/dL Albumin 3.3 L (3.9-5) g/dL
[2021-06-29] MEDS: POLYETHYLENE GLYCOL 3350 17 GM POWDER PO SCH (17:43)
[2021-06-30] MEDS: fentaNYL DRIP Premix 2,000 MCG/100 ML BAG IV SCH ×7 (02:31→22:17)
[2021-06-30] MEDS: LACOSAMIDE 100 MG in SODIUM CHLORIDE 0.9% 100 ML IV SCH ×2 (03:32→14:56)
[2021-06-30 05:15] LABS: Hematocrit 28.3 % (30.3-42.9); Hemoglobin 9.1 gm/dl (10.1-14.3); Mean Corpuscular HGB Conc 32 % (30-34); Mean Corpuscular Volume 87 fl (79-97); Red Blood Count 3.25 M/mm3 (3.65-5.03); Red Cell Distribution Width 16.2 % (13.2-15.2)
[2021-06-30 05:25] LABS: INR 1.22 (0.87-1.13)
[2021-06-30 05:26] LABS: Partial Thromboplastin Time 27.3 Sec. (24.2-36.6)
[2021-06-30 05:28] LABS: Platelet Count 72 K/mm3 (140-440)
[2021-06-30 05:33] LABS: Calcium 8.6 mg/dL (8.4-10.2)
[2021-06-30] MEDS: LEVOTHYROXINE 100 MCG INJ IV SCH (06:06)
[2021-06-30] MEDS: METOCLOPRAMIDE 10 MG/2 ML INJ IV SCH ×3 (06:08→22:05)
[2021-06-30] MEDS: INSULIN REGULAR, HUMAN 100 UNITS/1 ML SUB-Q SCH ×4 (06:08→18:20)
[2021-06-30] MEDS: methylPREDNISolone Sod Succinate 125 MG/2 ML INJ IV SCH ×2 (08:09→18:20)
[2021-06-30] MEDS: INSULIN NPH/REGULAR 70/30 INJ SUB-Q SCH ×2 (08:09→18:20)
[2021-06-30] MEDS: ASCORBIC ACID 500 MG TAB PO SCH ×2 (09:03→22:05)
[2021-06-30] MEDS: ZINC SULFATE 220 MG CAP PO SCH ×2 (09:03→22:06)
[2021-06-30] MEDS: DOCUSATE SODIUM 100 MG/10 ML ORAL LIQD PO SCH ×3 (09:03→22:06)
[2021-06-30] MEDS: POLYETHYLENE GLYCOL 3350 17 GM POWDER PO SCH (09:03)
[2021-06-30] MEDS: SENNOSIDES/DOCUSATE SODIUM 8.6/50 MG TAB FEEDTUBE SCH ×2 (09:03→22:06)
[2021-06-30] MEDS: FAMOTIDINE 20 MG/2 ML INJ IV SCH ×2 (09:03→22:05)
--- NOTE | 2021-06-30 11:03 | Progress Note ---
Assessment and Plan Eliquis on hold in the setting of thrombocytopenia and bleeding noted from ETT. May titrate up Cardizem gtt and re-bolus as needed for BP and/or HR optimization. Plan to transition to PO Cardizem when NGT residuals improve. Will also check TSH. Pt seen in conjunction with Dr. Sam, who agrees with the assessment and plan of care. - Patient Problems (1) Acute encephalopathy Current Visit: Yes Status: Acute (2) Seizure Current Visit: Yes Status: Acute (3) Acute respiratory failure Current Visit: Yes Status: Acute Qualifiers: Respiratory failure complication: hypoxia Qualified Code(s): J96.01 - Acute respiratory failure with hypoxia (4) Sepsis Current Visit: Yes Status: Acute (5) Pneumonia due to COVID-19 virus Current Visit: Yes Status: Acute (6) Acute kidney injury superimposed on CKD Current Visit: Yes Status: Acute (7) Anemia Current Visit: Yes Status: Acute (8) Thrombocytopenia Current Visit: Yes Status: Acute (9) Paroxysmal atrial fibrillation with RVR Current Visit: Yes Status: Acute (10) NSTEMI (non-ST elevated myocardial infarction) Current Visit: Yes Status: Acute Plan to address problem: Type 2 (11) Hypertension Current Visit: Yes Status: Chronic Qualifiers: Hypertension type: primary hypertension Qualified Code(s): I10 - Essential (primary) hypertension (12) Diabetes mellitus type 2, insulin dependent Current Visit: Yes Status: Chronic (13) Hypothyroidism Current Visit: Yes Status: Chronic (14) Morbid obesity Current Visit: Yes Status: Chronic (15) History of DVT (deep vein thrombosis) Current Visit: Yes Status: Chronic Subjective Date of service: 06/30/21 Principal diagnosis: AF Interval history: In SR 120s on tele this AM. BP elevated secondary to agitation. Objective Last Vital Signs Temp 99.0 F 06/30/21 08:00 Pulse 100 H 06/30/21 09:00 Resp 10 L 06/30/21 09:00 BP 225/92 06/30/21 09:00 Pulse Ox 93 06/30/21 09:00 - Physical Examination General: Other (intubated/sedated) HEENT: Positive: Normocephaly Neck: Positive: neck supple, trachea midline Cardiac: Positive: Regular Rhythm, Tachycardia Lungs: Positive: Ventilated Respirations Neuro: Positive: Other (intubated/sedated) Abdomen: Positive: Soft Skin: Negative: Rash Extremities: Present: lower extr. pulses. Absent: edema - Labs and Meds Coagulation 06/30/21 Range/Units 04:30 PT 16.7 H (12.2-14.9) Sec. INR 1.22 H (0.87-1.13) APTT 27.3 (24.2-36.6) Sec. CBC 06/30/21 Range/Units 04:30 WBC 12.5 H (4.5-11.0) K/mm3 RBC 3.25 L (3.65-5.03) M/mm3 Hgb 9.1 L (10.1-14.3) gm/dl Hct 28.3 L (30.3-42.9) % Plt Count 72 L (140-440) K/mm3 Comprehensive Metabolic Panel 06/30/21 Range/Units 04:30 Sodium 136 L (137-145) mmol/L Potassium 4.8 (3.6-5.0) mmol/L Chloride 91.6 L (98-107) mmol/L Carbon Dioxide 24 (22-30) mmol/L BUN 80 H (7-17) mg/dL Creatinine 4.6 H (0.6-1.2) mg/dL Glucose 164 H (65-100) mg/dL Calcium 8.6 (8.4-10.2) mg/dL - Imaging and Cardiology EKG: report reviewed, image reviewed Pharmacologic stress test: report reviewed (10/2019 - mod fixed basal & mid anterior, basal & mid anteroseptal, and apex defects, no stress-induced ischemia, EF 30-39%) Echo: report reviewed (06/07/2021 - EF 50-55%, no significant valvular abnormalities) - Telemetry EKG Rhythm: Sinus Tachycardia - EKG Supraventricular dysrhythmia: atrial fibrillation Ventricular dysrhythmias: ventricular premature com Chamber hypertrophy or enlargement: left ventricular hypertro - Allied health notes Allied health notes reviewed: nursing
[2021-06-30] MEDS ORDERED: dilTIAZem 25 MG/5 ML INJ IV ONE (11:40)
[2021-06-30] MEDS: fentaNYL 100 MCG/2 ML INJ IV PRN (11:59)
[2021-06-30] MEDS: dilTIAZem/D5W 100 MG/100 ML BAG IV SCH ×2 (11:59→22:18)
[2021-06-30] MEDS: MIDODRINE 5 MG TAB PO SCH ×2 (12:00→15:20)
--- NOTE | 2021-06-30 16:09 | Progress Note ---
Assessment and Plan Cultures: SARS CoV2 PCR: positive 06/08/2021 blood culture: No growth Urine culture: skin ade. A/P: 76-year-old female with diabetes, hypertension, history of liver abscess, Klebsiella bacteremia admitted with fever, chills, shortness of breath: #Bilateral pneumonia: secondary to COVID-19. Unvaccinated. Chest x-ray revealed bilateral patchy multifocal pneumonia, CT chest, abdomen pelvis revealed no pulmonary embolism, showed bilateral pneumonia, no acute abnormality in the abdomen or pelvis. #Acute hypoxic respiratory failure: on the vent #DM #HTN #Thrombocytopenia #TREMAINE: Reanlly dose medications Recs: Currently on high-dose methylprednisone Completed Remdesivir prophylactic anticoagulation based on d-dimer per hospital protocol Complete 7 days cefepime trend ferritin, d-dimer, CRP every 2-3 days Radha Butler MD [facility] ([facility]) O: [phone] F: [phone] Subjective Date of service: 06/30/21 Principal diagnosis: AF Interval history: Afebrile, white count 12. No acute change. Objective - Exam Narrative Exam: Physical exam deferred to reduce risk of transmission of COVID-19. Please refer to primary team's note. - Constitutional Vitals: Vital Signs Temp Pulse Resp BP Pulse Ox 99.0 F 104 H 16 211/79 92 06/30/21 08:00 06/30/21 15:00 06/30/21 15:00 06/30/21 15:00 06/30/21 15:00 Temperature -Last 24 Hours Temperature 99.0 F Temperature 99.0 F Temperature 98.9 F Temperature 98.6 F - Labs CBC & Chem 7: 06/30/21 04:30 06/30/21 04:30 Labs: Abnormal lab results 06/29/21 06/29/21 06/29/21 Range/Units 13:17 17:29 23:27 WBC (4.5-11.0) K/mm3 RBC (3.65-5.03) M/mm3 Hgb (10.1-14.3) gm/dl Hct (30.3-42.9) % RDW (13.2-15.2) % Plt Count (140-440) K/mm3 PT (12.2-14.9) Sec. INR (0.87-1.13) ABG pH 7.243 L (7.320-7.450) POC ABG pCO2 62.5 H (32.0-48.0) mmHg POC ABG pO2 81.6 L (83-108) mmHg ABG Hemoglobin 11.2 L (12.0-17.5) ABG Oxyhemoglobin 93.3 L (94-98) ABG Sodium 134.3 L (136.0-145.0) mmol/L ABG Potassium (3.40-4.50) mmol/L ABG Chloride 96.0 L (98-107) mmol/L ABG Glucose 171 H (65-95) mg/dL Carboxyhemoglobin 1.6 H (0.5-1.5) Sodium (137-145) mmol/L Chloride (98-107) mmol/L BUN (7-17) mg/dL Creatinine (0.6-1.2) mg/dL Glucose (65-100) mg/dL POC Glucose 186 H 151 H (70-105) mg/dL Arterial Blood Glucose 171 H (65-95) mg/dL 06/30/21 06/30/21 06/30/21 Range/Units 04:30 04:30 04:30 WBC 12.5 H (4.5-11.0) K/mm3 RBC 3.25 L (3.65-5.03) M/mm3 Hgb 9.1 L (10.1-14.3) gm/dl Hct 28.3 L (30.3-42.9) % RDW 16.2 H (13.2-15.2) % Plt Count 72 L (140-440) K/mm3 PT 16.7 H (12.2-14.9) Sec. INR 1.22 H (0.87-1.13) ABG pH (7.320-7.450) POC ABG pCO2 (32.0-48.0) mmHg POC ABG pO2 (83-108) mmHg ABG Hemoglobin (12.0-17.5) ABG Oxyhemoglobin (94-98) ABG Sodium (136.0-145.0) mmol/L ABG Potassium (3.40-4.50) mmol/L ABG Chloride (98-107) mmol/L ABG Glucose (65-95) mg/dL Carboxyhemoglobin (0.5-1.5) Sodium 136 L (137-145) mmol/L Chloride 91.6 L (98-107) mmol/L BUN 80 H (7-17) mg/dL Creatinine 4.6 H (0.6-1.2) mg/dL Glucose 164 H (65-100) mg/dL POC Glucose (70-105) mg/dL Arterial Blood Glucose (65-95) mg/dL 06/30/21 06/30/21 06/30/21 Range/Units 05:41 08:59 11:24 WBC (4.5-11.0) K/mm3 RBC (3.65-5.03) M/mm3 Hgb (10.1-14.3) gm/dl Hct (30.3-42.9) % RDW (13.2-15.2) % Plt Count (140-440) K/mm3 PT (12.2-14.9) Sec. INR (0.87-1.13) ABG pH 7.269 L (7.320-7.450) POC ABG pCO2 58.5 H (32.0-48.0) mmHg POC ABG pO2 70.1 L (83-108) mmHg ABG Hemoglobin 10.1 L (12.0-17.5) ABG Oxyhemoglobin 91.3 L (94-98) ABG Sodium 132.0 L (136.0-145.0) mmol/L ABG Potassium 4.8 H (3.40-4.50) mmol/L ABG Chloride 95.0 L (98-107) mmol/L ABG Glucose 172 H (65-95) mg/dL Carboxyhemoglobin (0.5-1.5) Sodium (137-145) mmol/L Chloride (98-107) mmol/L BUN (7-17) mg/dL Creatinine (0.6-1.2) mg/dL Glucose (65-100) mg/dL POC Glucose 155 H 163 H (70-105) mg/dL Arterial Blood Glucose 172 H (65-95) mg/dL
--- NOTE | 2021-06-30 17:35 | Progress Note ---
Assessment and Plan Acute hypoxemic respiratory failure (ARDS) Coronavirus infection Pneumonia due to COVID-19 virus Acute kidney injury superimposed on CKD Hypertension Diabetes mellitus type 2, insulin dependent Hypothyroidism Morbid obesity - continue HD/UF per nephrology prescription for toxin and volume clearance - continue care as below otherwise; - continue Keppra 500 mg IV q12h - follow EEG - neurology evaluation ongoing - continue to wean vaspressors for target MAP > 65 mmHg - continue daily SAT and SBT assessment as tolerated - continue to wean supplemental oxygen for target O2 sat's > 90% acutely - VAP bundle addressed - continue lung protective strategies - continue bronchodilators with pulmonary hygiene per RT - wean per pulmonary driven protocols otherwise - azotemia per nephrology recommendations - avoid nephrotoxins, renally dose all medications - continue to avoid benzodiazepine's, reduce the possibility of delirium - anti-infective's per ID rec's - prn analgesia per CPOT score - Maintenance of sleep-wake cycle, avoid delirium - enteral nutritional support at goal rate as tolerated - G.I. & VTE prophylaxis - PT/OT/ROM exercises - mobility protocols for pressure ulcer prophylaxis - Monitor hemodynamics closely - continue other care per attending / other consultants - discharge planning ongoing concurrently COVID SPECIFIC INTERVENTIONS - Remdesivir as per ID/Pulmonary developed protocols (not a candidate) - continue systemic steroids for severe COVID-19 infection empirically (will taper to 60 mg IV q8h) - follow repeat COVID tests results - zinc and vitamin C supplementation - Monitor inflammatory markers per facility protocol - ferritin, Ddimer, CRP - therapeutic anticoagulation per system Protocol based on d-dimer and clinical considerations - Continue contact and airborne isolation .... Re-evaluate in am & prn CONDITION: CRITICAL PROGNOSIS: GUARDED CODE STATUS: FULL CODE The high probability of a clinically significant, sudden or life-threatening deterioration of the [respiratory, cardiovascular, renal & neurologic] system(s) required my full and direct attention, intervention and personal management. The aggregate critical care time was [32] minutes without overlap. Time includes spent on; [x] Data Review and interpretation [x] Patient assessment and monitoring of vital signs [x] Documentation [x] Medication orders and management Subjective Date of service: 06/30/21 Principal diagnosis: ARDS; Pneumonia; COVID-19 virus infection; TREMAINE; DM II; Morbid obesity Interval history: Patient is seen today for: Acute hypoxemic respiratory failure (ARDS); Pneumonia; COVID-19 virus infection; TREMAINE on CKD; DM II; Morbid obesity Seen and examined at bedside; 24hour events reviewed; nursing and respiratory care staff consulted; no adverse overnight events reported to me; resting in bed; AMS is persistent; Objective Vital Signs - 12hr 06/30/21 06/30/21 06/30/21 06:00 07:00 08:00 Temperature 99.0 F Pulse Rate 85 84 74 Pulse Rate [ 81 From Monitor] Respiratory 30 H 30 H 30 H Rate Blood Pressure 183/69 143/60 131/52 O2 Sat by Pulse 93 95 97 Oximetry 06/30/21 06/30/21 06/30/21 08:51 09:00 10:00 Temperature Pulse Rate 121 H 100 H 87 Pulse Rate [ From Monitor] Respiratory 10 L 30 H Rate Blood Pressure 230/95 225/92 193/75 O2 Sat by Pulse 94 93 94 Oximetry 06/30/21 06/30/21 06/30/21 11:00 12:00 12:12 Temperature Pulse Rate 95 H 95 H 94 H Pulse Rate [ 83 From Monitor] Respiratory 11 L 29 H Rate Blood Pressure 205/81 195/81 195/81 O2 Sat by Pulse 95 96 95 Oximetry 06/30/21 06/30/21 06/30/21 13:00 14:00 15:00 Temperature Pulse Rate 86 83 104 H Pulse Rate [ From Monitor] Respiratory 30 H 30 H 16 Rate Blood Pressure 103/53 116/57 211/79 O2 Sat by Pulse 94 97 92 Oximetry 06/30/21 06/30/21 16:00 16:25 Temperature Pulse Rate 99 H 104 H Pulse Rate [ 103 H From Monitor] Respiratory 17 Rate Blood Pressure 203/73 201/74 O2 Sat by Pulse 92 93 Oximetry Constitutional: appears uncomfortable, other (Morbidly Obese female with mildly increased work of breathing on MVS) Eyes: non-icteric ENT: oropharynx moist, other (ETT 24 cm SHEREEN) Neck: supple, no lymphadenopathy, other (large neck circumference) Effort: mildly labored Ascultation: Bilateral: diminished breath sounds, rhonchi Percussion: Bilateral: not dull Cardiovascular: regular rate and rhythm Gastrointestinal: normoactive bowel sounds, soft, non-tender, non-distended (protuberant) Integumentary: rash (stasis dermatitis- type) Extremities: no cyanosis, no edema, pulses normal, no ischemia or petechiae Neurologic: non-focal exam (grossly), pupils equal and round, unable to assess Psychiatric: other (unable to assess re: AMS) CBC and BMP: 07/02/21 07:47 07/02/21 23:25 ABG, PT/INR, D-dimer: ABG ABG pH 7.269 (7.320-7.450) L 06/30/21 08:59 POC ABG pCO2 58.5 mmHg (32.0-48.0) H 06/30/21 08:59 ABG pCO2 64.0 mm Hg 06/27/21 Unknown POC ABG pO2 70.1 mmHg (83-108) L 06/30/21 08:59 ABG pO2 92.0 mm Hg (80.0-90.0) H 06/27/21 Unknown POC ABG HCO3 26.3 06/30/21 08:59 ABG O2 Saturation 92.6 (0-100) 06/30/21 08:59 PT/INR, D-dimer PT 16.7 Sec. (12.2-14.9) H 06/30/21 04:30 INR 1.22 (0.87-1.13) H 06/30/21 04:30 D-Dimer 1363.54 ng/mlDDU (0-234) H 06/26/21 10:00 Abnormal lab findings: Abnormal Labs 06/07/21 06/07/21 06/07/21 19:11 19:11 19:11 WBC 11.5 H RBC Hgb Hct RDW Plt Count Lymph % (Auto) 6.5 L Lymph # (Auto) 0.8 L Seg Neutrophils % 89.9 H Seg Neuts % (Manual) Lymphocytes % (Manual) Nucleated RBC % Seg Neutrophils # 10.4 H Seg Neutrophils # Man Lymphocytes # (Manual) Monocytes # (Manual) PT INR APTT D-Dimer 5334.05 H ABG pH POC ABG pCO2 POC ABG pO2 ABG pO2 ABG HCO3 ABG O2 Saturation ABG Base Excess ABG Hemoglobin ABG Oxyhemoglobin ABG Methemoglobin ABG Sodium ABG Potassium ABG Chloride ABG Glucose Oxyhemoglobin Carboxyhemoglobin Sodium Potassium Chloride Carbon Dioxide BUN 67 H Creatinine 4.8 H Glucose 244 H POC Glucose Hemoglobin A1c Calcium Phosphorus Magnesium Ferritin Alkaline Phosphatase Lactate Dehydrogenase 796 H Troponin T 0.043 H C-Reactive Protein 19.60 H Total Protein 8.4 H Albumin 3.1 L Hckid-0-Abntfpnge Fbmvf-3-Cbafzlwqc Beta Globulins PEP Interpretation Triglycerides 209 H HDL Cholesterol 35 L Arterial Blood Glucose Arterial Blood Ionized Calcium Urine WBC (Auto) Coronavirus (PCR) 06/07/21 06/07/21 06/08/21 19:11 19:11 03:04 WBC RBC Hgb Hct RDW Plt Count Lymph % (Auto) Lymph # (Auto) Seg Neutrophils % Seg Neuts % (Manual) Lymphocytes % (Manual) Nucleated RBC % Seg Neutrophils # Seg Neutrophils # Man Lymphocytes # (Manual) Monocytes # (Manual) PT INR APTT D-Dimer ABG pH POC ABG pCO2 POC ABG pO2 ABG pO2 ABG HCO3 ABG O2 Saturation ABG Base Excess ABG Hemoglobin ABG Oxyhemoglobin ABG Methemoglobin ABG Sodium ABG Potassium ABG Chloride ABG Glucose Oxyhemoglobin Carboxyhemoglobin Sodium Potassium Chloride Carbon Dioxide BUN Creatinine Glucose POC Glucose Hemoglobin A1c 9.5 H Calcium Phosphorus Magnesium Ferritin 1230.0 H Alkaline Phosphatase Lactate Dehydrogenase Troponin T 0.031 H D C-Reactive Protein Total Protein Albumin Vipdk-1-Juichydmc Ywapu-4-Ohxdeyivu Beta Globulins PEP Interpretation Triglycerides HDL Cholesterol Arterial Blood Glucose Arterial Blood Ionized Calcium Urine WBC (Auto) Coronavirus (PCR) 06/08/21 06/08/21 06/08/21 03:44 03:44 08:21 WBC 12.9 H RBC Hgb Hct RDW Plt Count Lymph % (Auto) Lymph # (Auto) Seg Neutrophils % Seg Neuts % (Manual) 95.0 H Lymphocytes % (Manual) 3.0 L Nucleated RBC % Seg Neutrophils # Seg Neutrophils # Man 12.3 H Lymphocytes # (Manual) 0.4 L Monocytes # (Manual) PT INR APTT D-Dimer ABG pH POC ABG pCO2 POC ABG pO2 ABG pO2 ABG HCO3 ABG O2 Saturation ABG Base Excess ABG Hemoglobin ABG Oxyhemoglobin ABG Methemoglobin ABG Sodium ABG Potassium ABG Chloride ABG Glucose Oxyhemoglobin Carboxyhemoglobin Sodium Potassium Chloride Carbon Dioxide 20 L D BUN 68 H Creatinine 4.7 H Glucose 218 H POC Glucose 273 H Hemoglobin A1c Calcium Phosphorus Magnesium Ferritin Alkaline Phosphatase Lactate Dehydrogenase Troponin T C-Reactive Protein Total Protein Albumin 3.4 L Dvfyh-9-Jwzyjlndu Dvlgc-3-Ifcffvfyw Beta Globulins PEP Interpretation Triglycerides HDL Cholesterol Arterial Blood Glucose Arterial Blood Ionized Calcium Urine WBC (Auto) Coronavirus (PCR) 06/08/21 06/08/21 06/08/21 08:30 11:00 17:29 WBC RBC Hgb Hct RDW Plt Count Lymph % (Auto) Lymph # (Auto) Seg Neutrophils % Seg Neuts % (Manual) Lymphocytes % (Manual) Nucleated RBC % Seg Neutrophils # Seg Neutrophils # Man Lymphocytes # (Manual) Monocytes # (Manual) PT INR APTT D-Dimer ABG pH POC ABG pCO2 POC ABG pO2 ABG pO2 ABG HCO3 ABG O2 Saturation ABG Base Excess ABG Hemoglobin ABG Oxyhemoglobin ABG Methemoglobin ABG Sodium ABG Potassium ABG Chloride ABG Glucose Oxyhemoglobin Carboxyhemoglobin Sodium Potassium Chloride Carbon Dioxide BUN Creatinine Glucose POC Glucose 239 H 220 H Hemoglobin A1c Calcium Phosphorus Magnesium Ferritin Alkaline Phosphatase Lactate Dehydrogenase Troponin T C-Reactive Protein Total Protein Albumin Aewqm-2-Suxextoaw Extvz-8-Zsavvvxmm Beta Globulins PEP Interpretation Triglycerides HDL Cholesterol Arterial Blood Glucose Arterial Blood Ionized Calcium Urine WBC (Auto) Coronavirus (PCR) Positive A 06/08/21 06/09/21 06/09/21 21:09 08:07 08:42 WBC 14.7 H RBC 5.28 H Hgb 14.9 H Hct 45.0 H D RDW Plt Count Lymph % (Auto) 4.9 L Lymph # (Auto) 0.7 L Seg Neutrophils % 90.0 H Seg Neuts % (Manual) Lymphocytes % (Manual) Nucleated RBC % Seg Neutrophils # 13.2 H Seg Neutrophils # Man Lymphocytes # (Manual) Monocytes # (Manual) PT INR APTT D-Dimer ABG pH POC ABG pCO2 POC ABG pO2 ABG pO2 ABG HCO3 ABG O2 Saturation ABG Base Excess ABG Hemoglobin ABG Oxyhemoglobin ABG Methemoglobin ABG Sodium ABG Potassium ABG Chloride ABG Glucose Oxyhemoglobin Carboxyhemoglobin Sodium Potassium Chloride Carbon Dioxide BUN Creatinine Glucose POC Glucose 242 H 230 H Hemoglobin A1c Calcium Phosphorus Magnesium Ferritin Alkaline Phosphatase Lactate Dehydrogenase Troponin T C-Reactive Protein Total Protein Albumin Lfuvr-1-Mddjnldzo Zoojf-4-Siasrqjha Beta Globulins PEP Interpretation Triglycerides HDL Cholesterol Arterial Blood Glucose Arterial Blood Ionized Calcium Urine WBC (Auto) Coronavirus (PCR) 06/09/21 06/09/21 06/09/21 08:42 12:05 12:19 WBC RBC Hgb Hct RDW Plt Count Lymph % (Auto) Lymph # (Auto) Seg Neutrophils % Seg Neuts % (Manual) Lymphocytes % (Manual) Nucleated RBC % Seg Neutrophils # Seg Neutrophils # Man Lymphocytes # (Manual) Monocytes # (Manual) PT INR APTT D-Dimer ABG pH POC ABG pCO2 POC ABG pO2 71.4 L ABG pO2 ABG HCO3 ABG O2 Saturation ABG Base Excess ABG Hemoglobin ABG Oxyhemoglobin 92.9 L ABG Methemoglobin ABG Sodium ABG Potassium ABG Chloride 109.0 H ABG Glucose 287 H Oxyhemoglobin Carboxyhemoglobin 0.4 L Sodium Potassium Chloride Carbon Dioxide 17 L BUN 74 H Creatinine 3.7 H Glucose 259 H POC Glucose 274 H Hemoglobin A1c Calcium 8.3 L Phosphorus Magnesium Ferritin Alkaline Phosphatase Lactate Dehydrogenase Troponin T C-Reactive Protein Total Protein Albumin Anvey-0-Vcvrzakvg Dtpjx-8-Nmynzigha Beta Globulins PEP Interpretation Triglycerides HDL Cholesterol Arterial Blood Glucose 287 H Arterial Blood Ionized Calcium Urine WBC (Auto) Coronavirus (PCR) 06/09/21 06/09/21 06/10/21 16:59 21:06 08:25 WBC RBC Hgb Hct RDW Plt Count Lymph % (Auto) Lymph # (Auto) Seg Neutrophils % Seg Neuts % (Manual) Lymphocytes % (Manual) Nucleated RBC % Seg Neutrophils # Seg Neutrophils # Man Lymphocytes # (Manual) Monocytes # (Manual) PT INR APTT D-Dimer ABG pH POC ABG pCO2 POC ABG pO2 ABG pO2 ABG HCO3 ABG O2 Saturation ABG Base Excess ABG Hemoglobin ABG Oxyhemoglobin ABG Methemoglobin ABG Sodium ABG Potassium ABG Chloride ABG Glucose Oxyhemoglobin Carboxyhemoglobin Sodium Potassium Chloride Carbon Dioxide BUN Creatinine Glucose POC Glucose 268 H 263 H 280 H Hemoglobin A1c Calcium Phosphorus Magnesium Ferritin Alkaline Phosphatase Lactate Dehydrogenase Troponin T C-Reactive Protein Total Protein Albumin Tvdrn-2-Bzccshsxw Turip-7-Hzuavmcob Beta Globulins PEP Interpretation Triglycerides HDL Cholesterol Arterial Blood Glucose Arterial Blood Ionized Calcium Urine WBC (Auto) Coronavirus (PCR) 06/10/21 06/10/21 06/10/21 12:07 15:38 21:04 WBC RBC Hgb Hct RDW Plt Count Lymph % (Auto) Lymph # (Auto) Seg Neutrophils % Seg Neuts % (Manual) Lymphocytes % (Manual) Nucleated RBC % Seg Neutrophils # Seg Neutrophils # Man Lymphocytes # (Manual) Monocytes # (Manual) PT INR APTT D-Dimer ABG pH POC ABG pCO2 POC ABG pO2 ABG pO2 ABG HCO3 ABG O2 Saturation ABG Base Excess ABG Hemoglobin ABG Oxyhemoglobin ABG Methemoglobin ABG Sodium ABG Potassium ABG Chloride ABG Glucose Oxyhemoglobin Carboxyhemoglobin Sodium Potassium Chloride Carbon Dioxide BUN Creatinine Glucose POC Glucose 247 H 269 H 195 H Hemoglobin A1c Calcium Phosphorus Magnesium Ferritin Alkaline Phosphatase Lactate Dehydrogenase Troponin T C-Reactive Protein Total Protein Albumin Vtwwk-9-Ekdkvmjzu Ncenq-1-Acklfkfva Beta Globulins PEP Interpretation Triglycerides HDL Cholesterol Arterial Blood Glucose Arterial Blood Ionized Calcium Urine WBC (Auto) Coronavirus (PCR) 06/10/21 06/10/21 06/10/21 23:14 23:14 23:14 WBC RBC Hgb Hct RDW 15.3 H Plt Count Lymph % (Auto) Lymph # (Auto) Seg Neutrophils % Seg Neuts % (Manual) 93.0 H Lymphocytes % (Manual) 2.0 L Nucleated RBC % 3.0 H Seg Neutrophils # Seg Neutrophils # Man 10.2 H Lymphocytes # (Manual) 0.2 L Monocytes # (Manual) PT INR APTT D-Dimer ABG pH POC ABG pCO2 POC ABG pO2 ABG pO2 ABG HCO3 ABG O2 Saturation ABG Base Excess ABG Hemoglobin ABG Oxyhemoglobin ABG Methemoglobin ABG Sodium ABG Potassium ABG Chloride ABG Glucose Oxyhemoglobin Carboxyhemoglobin Sodium 148 H D Potassium Chloride 111.7 H Carbon Dioxide 20 L BUN 70 H Creatinine 3.2 H Glucose 186 H POC Glucose Hemoglobin A1c Calcium Phosphorus Magnesium Ferritin Alkaline Phosphatase Lactate Dehydrogenase Troponin T C-Reactive Protein Total Protein Albumin 2.6 L Jtmko-2-Jfcmetywb 0.5 H Pzkbo-1-Bqnzgacae 1.7 H Beta Globulins 0.6 H PEP Interpretation see below H Triglycerides HDL Cholesterol Arterial Blood Glucose Arterial Blood Ionized Calcium Urine WBC (Auto) Coronavirus (PCR) 06/10/21 06/10/21 06/10/21 23:14 23:14 23:14 WBC RBC Hgb Hct RDW Plt Count Lymph % (Auto) Lymph # (Auto) Seg Neutrophils % Seg Neuts % (Manual) Lymphocytes % (Manual) Nucleated RBC % Seg Neutrophils # Seg Neutrophils # Man Lymphocytes # (Manual) Monocytes # (Manual) PT INR APTT D-Dimer > 78960 H ABG pH POC ABG pCO2 POC ABG pO2 ABG pO2 ABG HCO3 ABG O2 Saturation ABG Base Excess ABG Hemoglobin ABG Oxyhemoglobin ABG Methemoglobin ABG Sodium ABG Potassium ABG Chloride ABG Glucose Oxyhemoglobin Carboxyhemoglobin Sodium Potassium Chloride Carbon Dioxide BUN Creatinine Glucose POC Glucose Hemoglobin A1c Calcium Phosphorus Magnesium 2.50 H Ferritin 1319.0 H Alkaline Phosphatase Lactate Dehydrogenase 606 H Troponin T C-Reactive Protein Total Protein Albumin Zrlos-7-Ltmlhqmgx Ubiuz-7-Tftdzzsyl Beta Globulins PEP Interpretation Triglycerides HDL Cholesterol Arterial Blood Glucose Arterial Blood Ionized Calcium Urine WBC (Auto) Coronavirus (PCR) 06/11/21 06/11/21 06/11/21 07:34 10:57 10:57 WBC RBC Hgb Hct RDW Plt Count Lymph % (Auto) Lymph # (Auto) Seg Neutrophils % Seg Neuts % (Manual) Lymphocytes % (Manual) Nucleated RBC % Seg Neutrophils # Seg Neutrophils # Man Lymphocytes # (Manual) Monocytes # (Manual) PT INR APTT D-Dimer > 90918 H ABG pH POC ABG pCO2 POC ABG pO2 ABG pO2 ABG HCO3 ABG O2 Saturation ABG Base Excess ABG Hemoglobin ABG Oxyhemoglobin ABG Methemoglobin ABG Sodium ABG Potassium ABG Chloride ABG Glucose Oxyhemoglobin Carboxyhemoglobin Sodium Potassium Chloride Carbon Dioxide BUN Creatinine Glucose POC Glucose 169 H Hemoglobin A1c Calcium Phosphorus Magnesium Ferritin 1300.0 H Alkaline Phosphatase Lactate Dehydrogenase Troponin T C-Reactive Protein Total Protein Albumin Pzirn-3-Jislzejff Fmjqv-2-Ertcjyiry Beta Globulins PEP Interpretation Triglycerides HDL Cholesterol Arterial Blood Glucose Arterial Blood Ionized Calcium Urine WBC (Auto) Coronavirus (PCR) 06/11/21 06/11/21 06/11/21 10:58 10:58 11:49 WBC 11.3 H RBC Hgb Hct RDW 15.3 H Plt Count Lymph % (Auto) Lymph # (Auto) Seg Neutrophils % Seg Neuts % (Manual) 88.0 H Lymphocytes % (Manual) 6.0 L Nucleated RBC % Seg Neutrophils # Seg Neutrophils # Man 9.9 H Lymphocytes # (Manual) 0.7 L Monocytes # (Manual) PT INR APTT D-Dimer ABG pH POC ABG pCO2 POC ABG pO2 ABG pO2 ABG HCO3 ABG O2 Saturation ABG Base Excess ABG Hemoglobin ABG Oxyhemoglobin ABG Methemoglobin ABG Sodium ABG Potassium ABG Chloride ABG Glucose Oxyhemoglobin Carboxyhemoglobin Sodium 150 H Potassium 3.4 L Chloride 114.8 H Carbon Dioxide 21 L BUN 65 H Creatinine 2.9 H Glucose 180 H POC Glucose 191 H Hemoglobin A1c Calcium Phosphorus Magnesium 2.50 H Ferritin Alkaline Phosphatase Lactate Dehydrogenase Troponin T C-Reactive Protein 1.90 H Total Protein Albumin Lwwvo-9-Uekzzqrmf Mkdfk-4-Jmjtxetsw Beta Globulins PEP Interpretation Triglycerides HDL Cholesterol Arterial Blood Glucose Arterial Blood Ionized Calcium Urine WBC (Auto) Coronavirus (PCR) 06/11/21 06/11/21 06/12/21 15:49 21:16 04:22 WBC RBC Hgb Hct RDW Plt Count Lymph % (Auto) Lymph # (Auto) Seg Neutrophils % Seg Neuts % (Manual) Lymphocytes % (Manual) Nucleated RBC % Seg Neutrophils # Seg Neutrophils # Man Lymphocytes # (Manual) Monocytes # (Manual) PT INR APTT D-Dimer ABG pH 7.318 L POC ABG pCO2 POC ABG pO2 ABG pO2 51.5 L ABG HCO3 ABG O2 Saturation 86.9 L ABG Base Excess -5.6 L ABG Hemoglobin ABG Oxyhemoglobin ABG Methemoglobin ABG Sodium ABG Potassium ABG Chloride ABG Glucose Oxyhemoglobin 85.5 L Carboxyhemoglobin Sodium Potassium Chloride Carbon Dioxide BUN Creatinine Glucose POC Glucose 185 H 200 H Hemoglobin A1c Calcium Phosphorus Magnesium Ferritin Alkaline Phosphatase Lactate Dehydrogenase Troponin T C-Reactive Protein Total Protein Albumin Lseow-8-Pldtcihvy Cawgg-5-Ydabbgabd Beta Globulins PEP Interpretation Triglycerides HDL Cholesterol Arterial Blood Glucose Arterial Blood Ionized Calcium Urine WBC (Auto) Coronavirus (PCR) 06/12/21 06/12/21 06/12/21 07:41 08:31 08:31 WBC 12.4 H RBC Hgb Hct RDW 15.3 H Plt Count Lymph % (Auto) 8.5 L Lymph # (Auto) 1.1 L Seg Neutrophils % 88.1 H Seg Neuts % (Manual) Lymphocytes % (Manual) Nucleated RBC % Seg Neutrophils # 10.9 H Seg Neutrophils # Man Lymphocytes # (Manual) Monocytes # (Manual) PT INR APTT D-Dimer ABG pH POC ABG pCO2 POC ABG pO2 ABG pO2 ABG HCO3 ABG O2 Saturation ABG Base Excess ABG Hemoglobin ABG Oxyhemoglobin ABG Methemoglobin ABG Sodium ABG Potassium ABG Chloride ABG Glucose Oxyhemoglobin Carboxyhemoglobin Sodium 151 H Potassium Chloride 117.3 H Carbon Dioxide 21 L BUN 61 H Creatinine 2.5 H Glucose 165 H POC Glucose 165 H Hemoglobin A1c Calcium 8.3 L Phosphorus Magnesium Ferritin Alkaline Phosphatase Lactate Dehydrogenase Troponin T C-Reactive Protein Total Protein Albumin Halsv-3-Mddfxmcwn Vswkq-9-Wnrmfsfjj Beta Globulins PEP Interpretation Triglycerides HDL Cholesterol Arterial Blood Glucose Arterial Blood Ionized Calcium Urine WBC (Auto) Coronavirus (PCR) 06/12/21 06/12/21 06/12/21 08:31 10:32 15:47 WBC RBC Hgb Hct RDW Plt Count Lymph % (Auto) Lymph # (Auto) Seg Neutrophils % Seg Neuts % (Manual) Lymphocytes % (Manual) Nucleated RBC % Seg Neutrophils # Seg Neutrophils # Man Lymphocytes # (Manual) Monocytes # (Manual) PT INR APTT D-Dimer ABG pH POC ABG pCO2 POC ABG pO2 ABG pO2 ABG HCO3 ABG O2 Saturation ABG Base Excess ABG Hemoglobin ABG Oxyhemoglobin ABG Methemoglobin ABG Sodium ABG Potassium ABG Chloride ABG Glucose Oxyhemoglobin Carboxyhemoglobin Sodium Potassium Chloride Carbon Dioxide BUN Creatinine Glucose POC Glucose 156 H 176 H Hemoglobin A1c Calcium Phosphorus Magnesium 2.50 H Ferritin Alkaline Phosphatase Lactate Dehydrogenase Troponin T C-Reactive Protein Total Protein Albumin Bcnsp-6-Jwhxhaajj Dvkun-5-Sreywkzex Beta Globulins PEP Interpretation Triglycerides HDL Cholesterol Arterial Blood Glucose Arterial Blood Ionized Calcium Urine WBC (Auto) Coronavirus (PCR) 06/12/21 06/13/21 06/13/21 21:50 07:42 07:42 WBC 14.1 H RBC Hgb Hct RDW 15.3 H Plt Count Lymph % (Auto) Lymph # (Auto) Seg Neutrophils % Seg Neuts % (Manual) 87.0 H Lymphocytes % (Manual) 7.0 L Nucleated RBC % 3.0 H Seg Neutrophils # Seg Neutrophils # Man 12.3 H Lymphocytes # (Manual) 1.0 L Monocytes # (Manual) PT INR APTT D-Dimer ABG pH POC ABG pCO2 POC ABG pO2 ABG pO2 ABG HCO3 ABG O2 Saturation ABG Base Excess ABG Hemoglobin ABG Oxyhemoglobin ABG Methemoglobin ABG Sodium ABG Potassium ABG Chloride ABG Glucose Oxyhemoglobin Carboxyhemoglobin Sodium 151 H Potassium 3.5 L Chloride 116.0 H Carbon Dioxide BUN 61 H Creatinine 2.3 H Glucose 135 H POC Glucose 165 H Hemoglobin A1c Calcium Phosphorus Magnesium 2.50 H Ferritin Alkaline Phosphatase Lactate Dehydrogenase Troponin T C-Reactive Protein Total Protein Albumin Yynfb-5-Beaesdbla Hgwzn-8-Fzvonfcks Beta Globulins PEP Interpretation Triglycerides HDL Cholesterol Arterial Blood Glucose Arterial Blood Ionized Calcium Urine WBC (Auto) Coronavirus (PCR) 06/13/21 06/13/21 06/13/21 08:10 11:10 18:15 WBC RBC Hgb Hct RDW Plt Count Lymph % (Auto) Lymph # (Auto) Seg Neutrophils % Seg Neuts % (Manual) Lymphocytes % (Manual) Nucleated RBC % Seg Neutrophils # Seg Neutrophils # Man Lymphocytes # (Manual) Monocytes # (Manual) PT INR APTT D-Dimer ABG pH POC ABG pCO2 POC ABG pO2 ABG pO2 ABG HCO3 ABG O2 Saturation ABG Base Excess ABG Hemoglobin ABG Oxyhemoglobin ABG Methemoglobin ABG Sodium ABG Potassium ABG Chloride ABG Glucose Oxyhemoglobin Carboxyhemoglobin Sodium Potassium Chloride Carbon Dioxide BUN Creatinine Glucose POC Glucose 118 H 139 H 179 H Hemoglobin A1c Calcium Phosphorus Magnesium Ferritin Alkaline Phosphatase Lactate Dehydrogenase Troponin T C-Reactive Protein Total Protein Albumin Bgtiv-6-Skiposlus Njflg-0-Gaehbxvmb Beta Globulins PEP Interpretation Triglycerides HDL Cholesterol Arterial Blood Glucose Arterial Blood Ionized Calcium Urine WBC (Auto) Coronavirus (PCR) 06/13/21 06/13/21 06/14/21 21:54 23:27 04:42 WBC 12.8 H RBC Hgb Hct RDW 15.3 H Plt Count Lymph % (Auto) Lymph # (Auto) Seg Neutrophils % Seg Neuts % (Manual) 92.0 H Lymphocytes % (Manual) 1.0 L Nucleated RBC % 2.0 H Seg Neutrophils # Seg Neutrophils # Man 11.8 H Lymphocytes # (Manual) 0.1 L Monocytes # (Manual) PT INR APTT D-Dimer ABG pH POC ABG pCO2 POC ABG pO2 ABG pO2 ABG HCO3 ABG O2 Saturation ABG Base Excess ABG Hemoglobin ABG Oxyhemoglobin ABG Methemoglobin ABG Sodium ABG Potassium ABG Chloride ABG Glucose Oxyhemoglobin Carboxyhemoglobin Sodium 152 H Potassium Chloride 116.3 H Carbon Dioxide 21 L BUN 67 H Creatinine 2.5 H Glucose 212 H POC Glucose 193 H Hemoglobin A1c Calcium Phosphorus Magnesium Ferritin Alkaline Phosphatase Lactate Dehydrogenase Troponin T C-Reactive Protein Total Protein Albumin Wxdya-1-Bumxvtcgx Qknpj-0-Hbslahkvs Beta Globulins PEP Interpretation Triglycerides HDL Cholesterol Arterial Blood Glucose Arterial Blood Ionized Calcium Urine WBC (Auto) Coronavirus (PCR) 06/14/21 06/14/21 06/14/21 04:42 04:42 07:33 WBC RBC Hgb Hct RDW Plt Count Lymph % (Auto) Lymph # (Auto) Seg Neutrophils % Seg Neuts % (Manual) Lymphocytes % (Manual) Nucleated RBC % Seg Neutrophils # Seg Neutrophils # Man Lymphocytes # (Manual) Monocytes # (Manual) PT INR APTT D-Dimer ABG pH POC ABG pCO2 POC ABG pO2 ABG pO2 ABG HCO3 ABG O2 Saturation ABG Base Excess ABG Hemoglobin ABG Oxyhemoglobin ABG Methemoglobin ABG Sodium ABG Potassium ABG Chloride ABG Glucose Oxyhemoglobin Carboxyhemoglobin Sodium 152 H Potassium Chloride 115.3 H Carbon Dioxide BUN 68 H Creatinine 2.5 H Glucose 188 H POC Glucose 173 H Hemoglobin A1c Calcium Phosphorus Magnesium 2.40 H Ferritin Alkaline Phosphatase Lactate Dehydrogenase Troponin T C-Reactive Protein Total Protein Albumin Nuecg-6-Jsgjlpstl Ipfol-0-Bkzysunkm Beta Globulins PEP Interpretation Triglycerides HDL Cholesterol Arterial Blood Glucose Arterial Blood Ionized Calcium Urine WBC (Auto) Coronavirus (PCR) 06/14/21 06/14/21 06/14/21 10:57 15:53 23:40 WBC RBC Hgb Hct RDW Plt Count Lymph % (Auto) Lymph # (Auto) Seg Neutrophils % Seg Neuts % (Manual) Lymphocytes % (Manual) Nucleated RBC % Seg Neutrophils # Seg Neutrophils # Man Lymphocytes # (Manual) Monocytes # (Manual) PT INR APTT D-Dimer ABG pH POC ABG pCO2 POC ABG pO2 ABG pO2 ABG HCO3 ABG O2 Saturation ABG Base Excess ABG Hemoglobin ABG Oxyhemoglobin ABG Methemoglobin ABG Sodium ABG Potassium ABG Chloride ABG Glucose Oxyhemoglobin Carboxyhemoglobin Sodium Potassium Chloride Carbon Dioxide BUN Creatinine Glucose POC Glucose 195 H 226 H 235 H Hemoglobin A1c Calcium Phosphorus Magnesium Ferritin Alkaline Phosphatase Lactate Dehydrogenase Troponin T C-Reactive Protein Total Protein Albumin Bseaw-7-Rqspdxhho Cdeyc-3-Ezbftoosf Beta Globulins PEP Interpretation Triglycerides HDL Cholesterol Arterial Blood Glucose Arterial Blood Ionized Calcium Urine WBC (Auto) Coronavirus (PCR) 06/15/21 06/15/21 06/15/21 07:38 07:38 07:38 WBC 14.3 H RBC Hgb Hct RDW Plt Count Lymph % (Auto) Lymph # (Auto) Seg Neutrophils % Seg Neuts % (Manual) 95.0 H Lymphocytes % (Manual) 1.0 L Nucleated RBC % Seg Neutrophils # Seg Neutrophils # Man 13.6 H Lymphocytes # (Manual) 0.1 L Monocytes # (Manual) PT INR APTT D-Dimer > 92624 H ABG pH POC ABG pCO2 POC ABG pO2 ABG pO2 ABG HCO3 ABG O2 Saturation ABG Base Excess ABG Hemoglobin ABG Oxyhemoglobin ABG Methemoglobin ABG Sodium ABG Potassium ABG Chloride ABG Glucose Oxyhemoglobin Carboxyhemoglobin Sodium 153 H Potassium 3.5 L Chloride 115.9 H Carbon Dioxide BUN 55 H Creatinine 2.1 H Glucose 213 H POC Glucose Hemoglobin A1c Calcium Phosphorus Magnesium Ferritin Alkaline Phosphatase Lactate Dehydrogenase Troponin T C-Reactive Protein Total Protein Albumin Ppdzi-2-Yputzvyea Ochjc-0-Nqiijmwmt Beta Globulins PEP Interpretation Triglycerides HDL Cholesterol Arterial Blood Glucose Arterial Blood Ionized Calcium Urine WBC (Auto) Coronavirus (PCR) 06/15/21 06/15/21 06/15/21 07:38 09:21 11:46 WBC RBC Hgb Hct RDW Plt Count Lymph % (Auto) Lymph # (Auto) Seg Neutrophils % Seg Neuts % (Manual) Lymphocytes % (Manual) Nucleated RBC % Seg Neutrophils # Seg Neutrophils # Man Lymphocytes # (Manual) Monocytes # (Manual) PT INR APTT D-Dimer ABG pH POC ABG pCO2 POC ABG pO2 ABG pO2 ABG HCO3 ABG O2 Saturation ABG Base Excess ABG Hemoglobin ABG Oxyhemoglobin ABG Methemoglobin ABG Sodium ABG Potassium ABG Chloride ABG Glucose Oxyhemoglobin Carboxyhemoglobin Sodium Potassium Chloride Carbon Dioxide BUN Creatinine Glucose POC Glucose 202 H 233 H Hemoglobin A1c Calcium Phosphorus Magnesium Ferritin 1246.0 H Alkaline Phosphatase Lactate Dehydrogenase Troponin T C-Reactive Protein Total Protein Albumin Rzsgu-4-Bfjhnxwuu Indgo-2-Bjcutwnwd Beta Globulins PEP Interpretation Triglycerides HDL Cholesterol Arterial Blood Glucose Arterial Blood Ionized Calcium Urine WBC (Auto) Coronavirus (PCR) 06/15/21 06/16/21 06/16/21 17:32 05:44 07:48 WBC RBC Hgb Hct RDW Plt Count Lymph % (Auto) Lymph # (Auto) Seg Neutrophils % Seg Neuts % (Manual) Lymphocytes % (Manual) Nucleated RBC % Seg Neutrophils # Seg Neutrophils # Man Lymphocytes # (Manual) Monocytes # (Manual) PT INR APTT D-Dimer ABG pH POC ABG pCO2 POC ABG pO2 ABG pO2 ABG HCO3 ABG O2 Saturation ABG Base Excess ABG Hemoglobin ABG Oxyhemoglobin ABG Methemoglobin ABG Sodium ABG Potassium ABG Chloride ABG Glucose Oxyhemoglobin Carboxyhemoglobin Sodium 154 H Potassium Chloride 117.2 H Carbon Dioxide BUN 54 H Creatinine 2.0 H Glucose 120 H POC Glucose 179 H 109 H Hemoglobin A1c Calcium Phosphorus Magnesium Ferritin Alkaline Phosphatase Lactate Dehydrogenase Troponin T C-Reactive Protein Total Protein Albumin Yvlmx-4-Ixuwnnpwh Flkpg-0-Sbriumerp Beta Globulins PEP Interpretation Triglycerides HDL Cholesterol Arterial Blood Glucose Arterial Blood Ionized Calcium Urine WBC (Auto) Coronavirus (PCR) 06/16/21 06/16/21 06/16/21 11:13 15:22 21:15 WBC RBC Hgb Hct RDW Plt Count Lymph % (Auto) Lymph # (Auto) Seg Neutrophils % Seg Neuts % (Manual) Lymphocytes % (Manual) Nucleated RBC % Seg Neutrophils # Seg Neutrophils # Man Lymphocytes # (Manual) Monocytes # (Manual) PT INR APTT D-Dimer ABG pH POC ABG pCO2 POC ABG pO2 ABG pO2 ABG HCO3 ABG O2 Saturation ABG Base Excess ABG Hemoglobin ABG Oxyhemoglobin ABG Methemoglobin ABG Sodium ABG Potassium ABG Chloride ABG Glucose Oxyhemoglobin Carboxyhemoglobin Sodium Potassium Chloride Carbon Dioxide BUN Creatinine Glucose POC Glucose 222 H 218 H 250 H Hemoglobin A1c Calcium Phosphorus Magnesium Ferritin Alkaline Phosphatase Lactate Dehydrogenase Troponin T C-Reactive Protein Total Protein Albumin Rceww-2-Tmnpaevqx Mcupa-0-Eqhzyrrsn Beta Globulins PEP Interpretation Triglycerides HDL Cholesterol Arterial Blood Glucose Arterial Blood Ionized Calcium Urine WBC (Auto) Coronavirus (PCR) 06/17/21 06/17/21 06/17/21 07:55 09:35 09:35 WBC RBC Hgb Hct RDW 15.7 H Plt Count 99 L Lymph % (Auto) Lymph # (Auto) Seg Neutrophils % Seg Neuts % (Manual) Lymphocytes % (Manual) Nucleated RBC % Seg Neutrophils # Seg Neutrophils # Man Lymphocytes # (Manual) Monocytes # (Manual) PT INR APTT D-Dimer ABG pH POC ABG pCO2 POC ABG pO2 ABG pO2 ABG HCO3 ABG O2 Saturation ABG Base Excess ABG Hemoglobin ABG Oxyhemoglobin ABG Methemoglobin ABG Sodium ABG Potassium ABG Chloride ABG Glucose Oxyhemoglobin Carboxyhemoglobin Sodium 148 H Potassium Chloride 113.3 H Carbon Dioxide BUN 45 H Creatinine 1.8 H Glucose 202 H POC Glucose 158 H Hemoglobin A1c Calcium Phosphorus Magnesium Ferritin Alkaline Phosphatase Lactate Dehydrogenase Troponin T C-Reactive Protein Total Protein 6.0 L Albumin 2.8 L Ogdiq-0-Ueuuzwpzb Niwee-4-Lmbjixxnj Beta Globulins PEP Interpretation Triglycerides HDL Cholesterol Arterial Blood Glucose Arterial Blood Ionized Calcium Urine WBC (Auto) Coronavirus (PCR) 06/17/21 06/17/21 06/18/21 12:32 16:46 06:00 WBC RBC Hgb Hct RDW Plt Count Lymph % (Auto) Lymph # (Auto) Seg Neutrophils % Seg Neuts % (Manual) Lymphocytes % (Manual) Nucleated RBC % Seg Neutrophils # Seg Neutrophils # Man Lymphocytes # (Manual) Monocytes # (Manual) PT INR APTT D-Dimer 9804.08 H ABG pH POC ABG pCO2 POC ABG pO2 ABG pO2 ABG HCO3 ABG O2 Saturation ABG Base Excess ABG Hemoglobin ABG Oxyhemoglobin ABG Methemoglobin ABG Sodium ABG Potassium ABG Chloride ABG Glucose Oxyhemoglobin Carboxyhemoglobin Sodium Potassium Chloride Carbon Dioxide BUN Creatinine Glucose POC Glucose 227 H 203 H Hemoglobin A1c Calcium Phosphorus Magnesium Ferritin Alkaline Phosphatase Lactate Dehydrogenase Troponin T C-Reactive Protein Total Protein Albumin Yvofx-3-Hjiszogyh Wbuxj-6-Gqheqbnmj Beta Globulins PEP Interpretation Triglycerides HDL Cholesterol Arterial Blood Glucose Arterial Blood Ionized Calcium Urine WBC (Auto) Coronavirus (PCR) 06/18/21 06/18/21 06/18/21 06:00 08:00 10:10 WBC RBC Hgb Hct RDW Plt Count Lymph % (Auto) Lymph # (Auto) Seg Neutrophils % Seg Neuts % (Manual) Lymphocytes % (Manual) Nucleated RBC % Seg Neutrophils # Seg Neutrophils # Man Lymphocytes # (Manual) Monocytes # (Manual) PT INR APTT D-Dimer ABG pH POC ABG pCO2 POC ABG pO2 ABG pO2 ABG HCO3 ABG O2 Saturation ABG Base Excess ABG Hemoglobin ABG Oxyhemoglobin ABG Methemoglobin ABG Sodium ABG Potassium ABG Chloride ABG Glucose Oxyhemoglobin Carboxyhemoglobin Sodium Potassium Chloride 110.1 H Carbon Dioxide BUN 39 H Creatinine 1.8 H Glucose 135 H POC Glucose 107 H Hemoglobin A1c Calcium Phosphorus Magnesium Ferritin 904.2 H Alkaline Phosphatase Lactate Dehydrogenase Troponin T C-Reactive Protein Total Protein Albumin Geuwd-0-Dhvjivlqj Brsym-5-Eftlgximo Beta Globulins PEP Interpretation Triglycerides HDL Cholesterol Arterial Blood Glucose Arterial Blood Ionized Calcium Urine WBC (Auto) Coronavirus (PCR) 06/18/21 06/18/21 06/18/21 12:06 16:47 21:14 WBC RBC Hgb Hct RDW Plt Count Lymph % (Auto) Lymph # (Auto) Seg Neutrophils % Seg Neuts % (Manual) Lymphocytes % (Manual) Nucleated RBC % Seg Neutrophils # Seg Neutrophils # Man Lymphocytes # (Manual) Monocytes # (Manual) PT INR APTT D-Dimer ABG pH POC ABG pCO2 POC ABG pO2 ABG pO2 ABG HCO3 ABG O2 Saturation ABG Base Excess ABG Hemoglobin ABG Oxyhemoglobin ABG Methemoglobin ABG Sodium ABG Potassium ABG Chloride ABG Glucose Oxyhemoglobin Carboxyhemoglobin Sodium Potassium Chloride Carbon Dioxide BUN Creatinine Glucose POC Glucose 160 H 236 H 186 H Hemoglobin A1c Calcium Phosphorus Magnesium Ferritin Alkaline Phosphatase Lactate Dehydrogenase Troponin T C-Reactive Protein Total Protein Albumin [place]co[place]-4-Byisltmtu Atfaf-2-Wtrmoxxwj Beta Globulins PEP Interpretation Triglycerides HDL Cholesterol Arterial Blood Glucose Arterial Blood Ionized Calcium Urine WBC (Auto) Coronavirus (PCR) 06/19/21 06/19/21 06/20/21 15:46 15:46 08:04 WBC RBC Hgb Hct RDW 15.5 H Plt Count 73 L Lymph % (Auto) Lymph # (Auto) Seg Neutrophils % Seg Neuts % (Manual) Lymphocytes % (Manual) Nucleated RBC % Seg Neutrophils # Seg Neutrophils # Man Lymphocytes # (Manual) Monocytes # (Manual) PT INR APTT D-Dimer ABG pH POC ABG pCO2 POC ABG pO2 ABG pO2 ABG HCO3 ABG O2 Saturation ABG Base Excess ABG Hemoglobin ABG Oxyhemoglobin ABG Methemoglobin ABG Sodium ABG Potassium ABG Chloride ABG Glucose Oxyhemoglobin Carboxyhemoglobin Sodium 146 H Potassium Chloride 108.9 H Carbon Dioxide BUN 38 H Creatinine 1.7 H Glucose POC Glucose 52 L Hemoglobin A1c Calcium Phosphorus Magnesium Ferritin Alkaline Phosphatase Lactate Dehydrogenase Troponin T C-Reactive Protein Total Protein Albumin Gmwsk-3-Gjfibsntu Kpjro-2-Yuxjabtjc Beta Globulins PEP Interpretation Triglycerides HDL Cholesterol Arterial Blood Glucose Arterial Blood Ionized Calcium Urine WBC (Auto) Coronavirus (PCR) 06/20/21 06/20/21 06/20/21 11:58 15:16 17:54 WBC RBC Hgb Hct RDW Plt Count Lymph % (Auto) Lymph # (Auto) Seg Neutrophils % Seg Neuts % (Manual) Lymphocytes % (Manual) Nucleated RBC % Seg Neutrophils # Seg Neutrophils # Man Lymphocytes # (Manual) Monocytes # (Manual) PT INR APTT D-Dimer ABG pH POC ABG pCO2 POC ABG pO2 ABG pO2 ABG HCO3 ABG O2 Saturation ABG Base Excess ABG Hemoglobin ABG Oxyhemoglobin ABG Methemoglobin ABG Sodium ABG Potassium ABG Chloride ABG Glucose Oxyhemoglobin Carboxyhemoglobin Sodium 146 H Potassium Chloride 108.2 H Carbon Dioxide BUN 37 H Creatinine 1.7 H Glucose 131 H POC Glucose 58 L 219 H Hemoglobin A1c Calcium Phosphorus Magnesium Ferritin Alkaline Phosphatase Lactate Dehydrogenase Troponin T C-Reactive Protein Total Protein Albumin Hhxgt-8-Jyypbcmzx Hdvai-4-Bfuveidrb Beta Globulins PEP Interpretation Triglycerides HDL Cholesterol Arterial Blood Glucose Arterial Blood Ionized Calcium Urine WBC (Auto) Coronavirus (PCR) 06/20/21 06/21/21 06/21/21 21:58 06:00 07:41 WBC RBC Hgb Hct RDW Plt Count Lymph % (Auto) Lymph # (Auto) Seg Neutrophils % Seg Neuts % (Manual) Lymphocytes % (Manual) Nucleated RBC % Seg Neutrophils # Seg Neutrophils # Man Lymphocytes # (Manual) Monocytes # (Manual) PT INR APTT D-Dimer ABG pH POC ABG pCO2 POC ABG pO2 ABG pO2 ABG HCO3 ABG O2 Saturation ABG Base Excess ABG Hemoglobin ABG Oxyhemoglobin ABG Methemoglobin ABG Sodium ABG Potassium ABG Chloride ABG Glucose Oxyhemoglobin Carboxyhemoglobin Sodium Potassium Chloride Carbon Dioxide BUN 42 H Creatinine 2.0 H Glucose 225 H POC Glucose 180 H 204 H Hemoglobin A1c Calcium Phosphorus Magnesium Ferritin Alkaline Phosphatase Lactate Dehydrogenase Troponin T C-Reactive Protein Total Protein Albumin Raept-4-Pnzvdquvx Lllbu-2-Zrzbwvwwb Beta Globulins PEP Interpretation Triglycerides HDL Cholesterol Arterial Blood Glucose Arterial Blood Ionized Calcium Urine WBC (Auto) Coronavirus (PCR) 06/21/21 06/21/21 06/21/21 11:01 11:20 15:57 WBC RBC Hgb Hct RDW Plt Count Lymph % (Auto) Lymph # (Auto) Seg Neutrophils % Seg Neuts % (Manual) Lymphocytes % (Manual) Nucleated RBC % Seg Neutrophils # Seg Neutrophils # Man Lymphocytes # (Manual) Monocytes # (Manual) PT INR APTT D-Dimer ABG pH POC ABG pCO2 POC ABG pO2 58.9 L ABG pO2 ABG HCO3 ABG O2 Saturation ABG Base Excess ABG Hemoglobin ABG Oxyhemoglobin 87.4 L ABG Methemoglobin ABG Sodium ABG Potassium ABG Chloride ABG Glucose 212 H Oxyhemoglobin Carboxyhemoglobin Sodium Potassium Chloride Carbon Dioxide BUN Creatinine Glucose POC Glucose 194 H 171 H Hemoglobin A1c Calcium Phosphorus Magnesium Ferritin Alkaline Phosphatase Lactate Dehydrogenase Troponin T C-Reactive Protein Total Protein Albumin Zwfeu-5-Kjataxtlv Jfiyh-6-Qdaqcnfev Beta Globulins PEP Interpretation Triglycerides HDL Cholesterol Arterial Blood Glucose 212 H Arterial Blood Ionized Calcium 4.5 L Urine WBC (Auto) Coronavirus (PCR) 06/21/21 06/21/21 06/21/21 17:52 17:55 22:09 WBC RBC Hgb Hct RDW Plt Count Lymph % (Auto) Lymph # (Auto) Seg Neutrophils % Seg Neuts % (Manual) Lymphocytes % (Manual) Nucleated RBC % Seg Neutrophils # Seg Neutrophils # Man Lymphocytes # (Manual) Monocytes # (Manual) PT INR APTT D-Dimer ABG pH 7.316 L POC ABG pCO2 51.7 H POC ABG pO2 62.3 L ABG pO2 ABG HCO3 ABG O2 Saturation ABG Base Excess ABG Hemoglobin ABG Oxyhemoglobin 88.7 L ABG Methemoglobin ABG Sodium ABG Potassium ABG Chloride ABG Glucose 197 H Oxyhemoglobin Carboxyhemoglobin Sodium Potassium Chloride Carbon Dioxide BUN Creatinine Glucose POC Glucose 153 H 178 H Hemoglobin A1c Calcium Phosphorus Magnesium Ferritin Alkaline Phosphatase Lactate Dehydrogenase Troponin T C-Reactive Protein Total Protein Albumin Fjefu-1-Gjopoumma Wevzr-6-Oetqutxno Beta Globulins PEP Interpretation Triglycerides HDL Cholesterol Arterial Blood Glucose 197 H Arterial Blood Ionized Calcium Urine WBC (Auto) Coronavirus (PCR) 06/22/21 06/22/21 06/22/21 07:30 07:43 11:47 WBC RBC Hgb Hct RDW Plt Count Lymph % (Auto) Lymph # (Auto) Seg Neutrophils % Seg Neuts % (Manual) Lymphocytes % (Manual) Nucleated RBC % Seg Neutrophils # Seg Neutrophils # Man Lymphocytes # (Manual) Monocytes # (Manual) PT INR APTT D-Dimer ABG pH POC ABG pCO2 POC ABG pO2 ABG pO2 ABG HCO3 ABG O2 Saturation ABG Base Excess ABG Hemoglobin ABG Oxyhemoglobin ABG Methemoglobin ABG Sodium ABG Potassium ABG Chloride ABG Glucose Oxyhemoglobin Carboxyhemoglobin Sodium Potassium Chloride Carbon Dioxide 21 L BUN 55 H Creatinine 2.8 H Glucose 219 H POC Glucose 235 H 222 H Hemoglobin A1c Calcium Phosphorus Magnesium Ferritin Alkaline Phosphatase Lactate Dehydrogenase Troponin T C-Reactive Protein Total Protein Albumin Plvil-7-Brbojnpnu Jeiug-2-Qgtdjiymv Beta Globulins PEP Interpretation Triglycerides HDL Cholesterol Arterial Blood Glucose Arterial Blood Ionized Calcium Urine WBC (Auto) Coronavirus (PCR) 06/22/21 06/22/21 06/22/21 11:50 12:10 15:15 WBC RBC Hgb Hct RDW Plt Count Lymph % (Auto) Lymph # (Auto) Seg Neutrophils % Seg Neuts % (Manual) Lymphocytes % (Manual) Nucleated RBC % Seg Neutrophils # Seg Neutrophils # Man Lymphocytes # (Manual) Monocytes # (Manual) PT INR APTT D-Dimer ABG pH 7.273 L POC ABG pCO2 POC ABG pO2 56.8 L 56.8 L ABG pO2 58.0 L ABG HCO3 ABG O2 Saturation 85.7 L ABG Base Excess -4.9 L ABG Hemoglobin ABG Oxyhemoglobin 86.7 L 86.7 L ABG Methemoglobin ABG Sodium ABG Potassium ABG Chloride ABG Glucose Oxyhemoglobin 84.1 L Carboxyhemoglobin Sodium Potassium Chloride Carbon Dioxide BUN Creatinine Glucose POC Glucose Hemoglobin A1c Calcium Phosphorus Magnesium Ferritin Alkaline Phosphatase Lactate Dehydrogenase Troponin T C-Reactive Protein Total Protein Albumin Byalt-9-Wajhzqcds Izegg-8-Wowtsipil Beta Globulins PEP Interpretation Triglycerides HDL Cholesterol Arterial Blood Glucose Arterial Blood Ionized Calcium Urine WBC (Auto) Coronavirus (PCR) 06/22/21 06/22/21 06/22/21 17:28 21:22 23:35 WBC RBC Hgb Hct RDW Plt Count Lymph % (Auto) Lymph # (Auto) Seg Neutrophils % Seg Neuts % (Manual) Lymphocytes % (Manual) Nucleated RBC % Seg Neutrophils # Seg Neutrophils # Man Lymphocytes # (Manual) Monocytes # (Manual) PT INR APTT D-Dimer ABG pH 7.217 L POC ABG pCO2 POC ABG pO2 ABG pO2 61.7 L ABG HCO3 ABG O2 Saturation 87.3 L ABG Base Excess -6.0 L ABG Hemoglobin ABG Oxyhemoglobin ABG Methemoglobin ABG Sodium ABG Potassium ABG Chloride ABG Glucose Oxyhemoglobin 85.4 L Carboxyhemoglobin Sodium Potassium Chloride Carbon Dioxide BUN Creatinine Glucose POC Glucose 221 H 204 H Hemoglobin A1c Calcium Phosphorus Magnesium Ferritin Alkaline Phosphatase Lactate Dehydrogenase Troponin T C-Reactive Protein Total Protein Albumin Afwuy-9-Mwzbbeklb Vrrwp-5-Padmzipuc Beta Globulins PEP Interpretation Triglycerides HDL Cholesterol Arterial Blood Glucose Arterial Blood Ionized Calcium Urine WBC (Auto) Coronavirus (PCR) 06/23/21 06/23/21 06/23/21 04:42 04:42 04:42 WBC 19.0 H RBC 5.04 H Hgb Hct 44.5 H RDW 16.6 H Plt Count 61 L Lymph % (Auto) Lymph # (Auto) Seg Neutrophils % Seg Neuts % (Manual) Lymphocytes % (Manual) 2.0 L Nucleated RBC % 46.0 H Seg Neutrophils # Seg Neutrophils # Man 13.1 H Lymphocytes # (Manual) 0.4 L Monocytes # (Manual) 1.1 H PT INR APTT D-Dimer 6308.27 H ABG pH POC ABG pCO2 POC ABG pO2 ABG pO2 ABG HCO3 ABG O2 Saturation ABG Base Excess ABG Hemoglobin ABG Oxyhemoglobin ABG Methemoglobin ABG Sodium ABG Potassium ABG Chloride ABG Glucose Oxyhemoglobin Carboxyhemoglobin Sodium Potassium 6.3 H* D Chloride Carbon Dioxide 21 L BUN 72 H Creatinine 4.6 H D Glucose 225 H POC Glucose Hemoglobin A1c Calcium 8.0 L Phosphorus Magnesium Ferritin Alkaline Phosphatase Lactate Dehydrogenase Troponin T C-Reactive Protein Total Protein Albumin Gmurr-1-Hlanzhsba Zlmwg-4-Giqllmvfu Beta Globulins PEP Interpretation Triglycerides HDL Cholesterol Arterial Blood Glucose Arterial Blood Ionized Calcium Urine WBC (Auto) Coronavirus (PCR) 06/23/21 06/23/21 06/23/21 04:42 04:42 05:33 WBC RBC Hgb Hct RDW Plt Count Lymph % (Auto) Lymph # (Auto) Seg Neutrophils % Seg Neuts % (Manual) Lymphocytes % (Manual) Nucleated RBC % Seg Neutrophils # Seg Neutrophils # Man Lymphocytes # (Manual) Monocytes # (Manual) PT INR APTT D-Dimer ABG pH POC ABG pCO2 POC ABG pO2 ABG pO2 ABG HCO3 ABG O2 Saturation ABG Base Excess ABG Hemoglobin ABG Oxyhemoglobin ABG Methemoglobin ABG Sodium ABG Potassium ABG Chloride ABG Glucose Oxyhemoglobin Carboxyhemoglobin Sodium Potassium Chloride Carbon Dioxide BUN Creatinine Glucose POC Glucose 227 H Hemoglobin A1c Calcium 7.9 L Phosphorus 8.30 H Magnesium Ferritin 1496.0 H Alkaline Phosphatase Lactate Dehydrogenase Troponin T C-Reactive Protein 4.40 H Total Protein Albumin Oktcs-8-Psxaohkpj Hsyll-7-Ykacwotfj Beta Globulins PEP Interpretation Triglycerides HDL Cholesterol Arterial Blood Glucose Arterial Blood Ionized Calcium Urine WBC (Auto) Coronavirus (PCR) 06/23/21 06/23/21 06/23/21 11:00 11:31 17:40 WBC RBC Hgb Hct RDW Plt Count Lymph % (Auto) Lymph # (Auto) Seg Neutrophils % Seg Neuts % (Manual) Lymphocytes % (Manual) Nucleated RBC % Seg Neutrophils # Seg Neutrophils # Man Lymphocytes # (Manual) Monocytes # (Manual) PT INR APTT D-Dimer ABG pH 7.177 L POC ABG pCO2 58.9 H POC ABG pO2 60.2 L ABG pO2 ABG HCO3 ABG O2 Saturation ABG Base Excess ABG Hemoglobin ABG Oxyhemoglobin 83.5 L ABG Methemoglobin 1.8 H ABG Sodium ABG Potassium ABG Chloride ABG Glucose Oxyhemoglobin Carboxyhemoglobin Sodium Potassium Chloride Carbon Dioxide BUN Creatinine Glucose POC Glucose 207 H Hemoglobin A1c Calcium Phosphorus Magnesium Ferritin Alkaline Phosphatase Lactate Dehydrogenase Troponin T C-Reactive Protein Total Protein Albumin Inigu-9-Tvrxwydej Darbs-5-Shhmmeumm Beta Globulins PEP Interpretation Triglycerides HDL Cholesterol Arterial Blood Glucose Arterial Blood Ionized Calcium Urine WBC (Auto) > 182.0 H Coronavirus (PCR) 06/23/21 06/23/21 06/23/21 17:52 21:12 Unknown WBC RBC Hgb Hct RDW Plt Count Lymph % (Auto) Lymph # (Auto) Seg Neutrophils % Seg Neuts % (Manual) Lymphocytes % (Manual) Nucleated RBC % Seg Neutrophils # Seg Neutrophils # Man Lymphocytes # (Manual) Monocytes # (Manual) PT INR APTT D-Dimer 6308 H ABG pH 7.214 L POC ABG pCO2 60.2 H POC ABG pO2 78.9 L ABG pO2 ABG HCO3 ABG O2 Saturation ABG Base Excess ABG Hemoglobin ABG Oxyhemoglobin 93.4 L ABG Methemoglobin ABG Sodium ABG Potassium 6.3 H ABG Chloride ABG Glucose 338 H Oxyhemoglobin Carboxyhemoglobin Sodium Potassium Chloride Carbon Dioxide BUN Creatinine Glucose POC Glucose 232 H Hemoglobin A1c Calcium Phosphorus Magnesium Ferritin Alkaline Phosphatase Lactate Dehydrogenase Troponin T C-Reactive Protein Total Protein Albumin Kvuve-2-Vrnujygnv Ajtyy-3-Irolwoxhj Beta Globulins PEP Interpretation Triglycerides HDL Cholesterol Arterial Blood Glucose 338 H Arterial Blood Ionized Calcium 4.1 L Urine WBC (Auto) Coronavirus (PCR) 06/23/21 06/23/21 06/23/21 Unknown Unknown Unknown WBC RBC Hgb Hct RDW Plt Count Lymph % (Auto) Lymph # (Auto) Seg Neutrophils % Seg Neuts % (Manual) Lymphocytes % (Manual) Nucleated RBC % Seg Neutrophils # Seg Neutrophils # Man Lymphocytes # (Manual) Monocytes # (Manual) PT 24.6 H INR 2.18 H APTT 43.8 H D-Dimer ABG pH POC ABG pCO2 POC ABG pO2 ABG pO2 ABG HCO3 ABG O2 Saturation ABG Base Excess ABG Hemoglobin ABG Oxyhemoglobin ABG Methemoglobin ABG Sodium ABG Potassium ABG Chloride ABG Glucose Oxyhemoglobin Carboxyhemoglobin Sodium 146 H Potassium 5.3 H Chloride 113.2 H Carbon Dioxide 20 L BUN 73 H Creatinine 4.2 H Glucose 234 H POC Glucose Hemoglobin A1c Calcium 6.3 L D Phosphorus Magnesium Ferritin 1094.0 H Alkaline Phosphatase Lactate Dehydrogenase Troponin T C-Reactive Protein Total Protein 4.3 L Albumin 2.0 L Mxitv-4-Tlpycbkaw Fmxlc-0-Eihzjxsmq Beta Globulins PEP Interpretation Triglycerides HDL Cholesterol Arterial Blood Glucose Arterial Blood Ionized Calcium Urine WBC (Auto) Coronavirus (PCR) 06/24/21 06/24/21 06/24/21 00:03 04:55 04:55 WBC 18.7 H RBC Hgb Hct RDW 16.8 H Plt Count 42 L Lymph % (Auto) Lymph # (Auto) Seg Neutrophils % Seg Neuts % (Manual) Lymphocytes % (Manual) 1.0 L Nucleated RBC % 1.0 H Seg Neutrophils # Seg Neutrophils # Man 12.7 H Lymphocytes # (Manual) 0.2 L Monocytes # (Manual) PT INR APTT D-Dimer ABG pH POC ABG pCO2 POC ABG pO2 ABG pO2 ABG HCO3 ABG O2 Saturation ABG Base Excess ABG Hemoglobin ABG Oxyhemoglobin ABG Methemoglobin ABG Sodium ABG Potassium ABG Chloride ABG Glucose Oxyhemoglobin Carboxyhemoglobin Sodium Potassium 6.0 H Chloride Carbon Dioxide 20 L BUN 86 H Creatinine 5.4 H Glucose 309 H POC Glucose 265 H Hemoglobin A1c Calcium 6.5 L Phosphorus 7.60 H Magnesium Ferritin Alkaline Phosphatase Lactate Dehydrogenase Troponin T C-Reactive Protein Total Protein 4.6 L Albumin 2.1 L Flcee-4-Yxjjqvqta Bcird-9-Dfeqkqhdd Beta Globulins PEP Interpretation Triglycerides HDL Cholesterol Arterial Blood Glucose Arterial Blood Ionized Calcium Urine WBC (Auto) Coronavirus (PCR) 06/24/21 06/24/21 06/24/21 04:55 06:01 11:38 WBC RBC Hgb Hct RDW Plt Count Lymph % (Auto) Lymph # (Auto) Seg Neutrophils % Seg Neuts % (Manual) Lymphocytes % (Manual) Nucleated RBC % Seg Neutrophils # Seg Neutrophils # Man Lymphocytes # (Manual) Monocytes # (Manual) PT 22.2 H INR 1.90 H APTT D-Dimer ABG pH POC ABG pCO2 POC ABG pO2 ABG pO2 ABG HCO3 ABG O2 Saturation ABG Base Excess ABG Hemoglobin ABG Oxyhemoglobin ABG Methemoglobin ABG Sodium ABG Potassium ABG Chloride ABG Glucose Oxyhemoglobin Carboxyhemoglobin Sodium Potassium Chloride Carbon Dioxide BUN Creatinine Glucose POC Glucose 257 H 288 H Hemoglobin A1c Calcium Phosphorus Magnesium Ferritin Alkaline Phosphatase Lactate Dehydrogenase Troponin T C-Reactive Protein Total Protein Albumin Oxthc-7-Qvadfrlyd Gwsum-7-Qwsnprfze Beta Globulins PEP Interpretation Triglycerides HDL Cholesterol Arterial Blood Glucose Arterial Blood Ionized Calcium Urine WBC (Auto) Coronavirus (PCR) 06/24/21 06/24/21 06/25/21 18:02 23:29 05:12 WBC RBC Hgb Hct RDW Plt Count Lymph % (Auto) Lymph # (Auto) Seg Neutrophils % Seg Neuts % (Manual) Lymphocytes % (Manual) Nucleated RBC % Seg Neutrophils # Seg Neutrophils # Man Lymphocytes # (Manual) Monocytes # (Manual) PT INR APTT D-Dimer ABG pH POC ABG pCO2 POC ABG pO2 ABG pO2 ABG HCO3 ABG O2 Saturation ABG Base Excess ABG Hemoglobin ABG Oxyhemoglobin ABG Methemoglobin ABG Sodium ABG Potassium ABG Chloride ABG Glucose Oxyhemoglobin Carboxyhemoglobin Sodium Potassium Chloride Carbon Dioxide BUN Creatinine Glucose POC Glucose 299 H 269 H 283 H Hemoglobin A1c Calcium Phosphorus Magnesium Ferritin Alkaline Phosphatase Lactate Dehydrogenase Troponin T C-Reactive Protein Total Protein Albumin [id number] Beta Globulins PEP Interpretation Triglycerides HDL Cholesterol Arterial Blood Glucose Arterial Blood Ionized Calcium Urine WBC (Auto) Coronavirus (PCR) 06/25/21 06/25/21 06/25/21 09:05 09:05 09:05 WBC 14.5 H RBC Hgb Hct RDW 16.4 H Plt Count 41 L Lymph % (Auto) Lymph # (Auto) Seg Neutrophils % Seg Neuts % (Manual) Lymphocytes % (Manual) Nucleated RBC % Seg Neutrophils # Seg Neutrophils # Man Lymphocytes # (Manual) Monocytes # (Manual) PT 20.2 H INR 1.68 H APTT D-Dimer ABG pH POC ABG pCO2 POC ABG pO2 ABG pO2 ABG HCO3 ABG O2 Saturation ABG Base Excess ABG Hemoglobin ABG Oxyhemoglobin ABG Methemoglobin ABG Sodium ABG Potassium ABG Chloride ABG Glucose Oxyhemoglobin Carboxyhemoglobin Sodium Potassium 5.5 H Chloride 97.2 L Carbon Dioxide BUN 88 H Creatinine 5.6 H Glucose 370 H POC Glucose Hemoglobin A1c Calcium 7.4 L Phosphorus 8.00 H Magnesium Ferritin Alkaline Phosphatase Lactate Dehydrogenase Troponin T C-Reactive Protein Total Protein 5.1 L Albumin 2.5 L Jsdrc-3-Igxhenuyp Drbuz-0-Qwbqmsvss Beta Globulins PEP Interpretation Triglycerides HDL Cholesterol Arterial Blood Glucose Arterial Blood Ionized Calcium Urine WBC (Auto) Coronavirus (PCR) 06/25/21 06/25/21 06/25/21 09:29 12:05 17:28 WBC RBC Hgb Hct RDW Plt Count Lymph % (Auto) Lymph # (Auto) Seg Neutrophils % Seg Neuts % (Manual) Lymphocytes % (Manual) Nucleated RBC % Seg Neutrophils # Seg Neutrophils # Man Lymphocytes # (Manual) Monocytes # (Manual) PT INR APTT D-Dimer ABG pH 7.304 L POC ABG pCO2 53.2 H POC ABG pO2 ABG pO2 ABG HCO3 ABG O2 Saturation ABG Base Excess ABG Hemoglobin 10.9 L ABG Oxyhemoglobin ABG Methemoglobin ABG Sodium 133.9 L ABG Potassium 5.8 H ABG Chloride ABG Glucose 380 H Oxyhemoglobin Carboxyhemoglobin 0.4 L Sodium Potassium Chloride Carbon Dioxide BUN Creatinine Glucose POC Glucose 359 H 288 H Hemoglobin A1c Calcium Phosphorus Magnesium Ferritin Alkaline Phosphatase Lactate Dehydrogenase Troponin T C-Reactive Protein Total Protein Albumin Gxrdr-6-Jiaddilpz Utxuc-4-Wruvfjovf Beta Globulins PEP Interpretation Triglycerides HDL Cholesterol Arterial Blood Glucose 380 H Arterial Blood Ionized Calcium Urine WBC (Auto) Coronavirus (PCR) 06/25/21 06/25/21 06/26/21 21:00 23:46 05:14 WBC RBC Hgb Hct RDW Plt Count Lymph % (Auto) Lymph # (Auto) Seg Neutrophils % Seg Neuts % (Manual) Lymphocytes % (Manual) Nucleated RBC % Seg Neutrophils # Seg Neutrophils # Man Lymphocytes # (Manual) Monocytes # (Manual) PT INR APTT D-Dimer ABG pH 7.280 L 7.268 L POC ABG pCO2 59.7 H 60.2 H POC ABG pO2 113.7 H ABG pO2 ABG HCO3 ABG O2 Saturation ABG Base Excess ABG Hemoglobin 11.4 L 10.9 L ABG Oxyhemoglobin ABG Methemoglobin ABG Sodium 134.4 L 133.3 L ABG Potassium 4.7 H ABG Chloride ABG Glucose 313 H 353 H Oxyhemoglobin Carboxyhemoglobin 0.4 L Sodium Potassium Chloride Carbon Dioxide BUN Creatinine Glucose POC Glucose 325 H Hemoglobin A1c Calcium Phosphorus Magnesium Ferritin Alkaline Phosphatase Lactate Dehydrogenase Troponin T C-Reactive Protein Total Protein Albumin Kcvek-5-Ruoqkuodo Rxvpb-5-Daucswmcq Beta Globulins PEP Interpretation Triglycerides HDL Cholesterol Arterial Blood Glucose 313 H 353 H Arterial Blood Ionized Calcium Urine WBC (Auto) Coronavirus (PCR) 06/26/21 06/26/21 06/26/21 05:27 07:00 07:00 WBC 11.4 H RBC 3.63 L Hgb Hct RDW 15.6 H Plt Count 29 L Lymph % (Auto) 6.4 L Lymph # (Auto) 0.7 L Seg Neutrophils % 87.9 H Seg Neuts % (Manual) Lymphocytes % (Manual) Nucleated RBC % Seg Neutrophils # 10.4 H Seg Neutrophils # Man Lymphocytes # (Manual) Monocytes # (Manual) PT INR APTT D-Dimer ABG pH POC ABG pCO2 POC ABG pO2 ABG pO2 ABG HCO3 ABG O2 Saturation ABG Base Excess ABG Hemoglobin ABG Oxyhemoglobin ABG Methemoglobin ABG Sodium ABG Potassium ABG Chloride ABG Glucose Oxyhemoglobin Carboxyhemoglobin Sodium Potassium Chloride Carbon Dioxide BUN Creatinine Glucose POC Glucose 345 H Hemoglobin A1c Calcium Phosphorus 7.40 H Magnesium Ferritin Alkaline Phosphatase Lactate Dehydrogenase Troponin T C-Reactive Protein Total Protein Albumin Ypfxh-6-Rhrixlclu [place]-9-Ovxosvxmq Beta Globulins PEP Interpretation Triglycerides HDL Cholesterol Arterial Blood Glucose Arterial Blood Ionized Calcium Urine WBC (Auto) Coronavirus (PCR) 06/26/21 06/26/21 06/26/21 10:00 10:00 13:01 WBC RBC Hgb Hct RDW Plt Count Lymph % (Auto) Lymph # (Auto) Seg Neutrophils % Seg Neuts % (Manual) Lymphocytes % (Manual) Nucleated RBC % Seg Neutrophils # Seg Neutrophils # Man Lymphocytes # (Manual) Monocytes # (Manual) PT INR APTT D-Dimer 1363.54 H ABG pH POC ABG pCO2 POC ABG pO2 ABG pO2 ABG HCO3 ABG O2 Saturation ABG Base Excess ABG Hemoglobin ABG Oxyhemoglobin ABG Methemoglobin ABG Sodium ABG Potassium ABG Chloride ABG Glucose Oxyhemoglobin Carboxyhemoglobin Sodium 136 L Potassium Chloride 96.1 L Carbon Dioxide BUN 78 H Creatinine 4.6 H Glucose 378 H POC Glucose 363 H Hemoglobin A1c Calcium 8.3 L Phosphorus Magnesium Ferritin Alkaline Phosphatase Lactate Dehydrogenase Troponin T C-Reactive Protein Total Protein Albumin Lcdhb-9-Yxaufduld Cuwwt-9-Uyrxklbht Beta Globulins PEP Interpretation Triglycerides HDL Cholesterol Arterial Blood Glucose Arterial Blood Ionized Calcium Urine WBC (Auto) Coronavirus (PCR) 06/26/21 06/26/21 06/27/21 18:53 23:08 00:15 WBC RBC Hgb Hct RDW Plt Count Lymph % (Auto) Lymph # (Auto) Seg Neutrophils % Seg Neuts % (Manual) Lymphocytes % (Manual) Nucleated RBC % Seg Neutrophils # Seg Neutrophils # Man Lymphocytes # (Manual) Monocytes # (Manual) PT INR APTT D-Dimer ABG pH POC ABG pCO2 POC ABG pO2 ABG pO2 ABG HCO3 ABG O2 Saturation ABG Base Excess ABG Hemoglobin ABG Oxyhemoglobin ABG Methemoglobin ABG Sodium ABG Potassium ABG Chloride ABG Glucose Oxyhemoglobin Carboxyhemoglobin Sodium Potassium Chloride Carbon Dioxide BUN Creatinine Glucose POC Glucose 329 H 337 H 308 H Hemoglobin A1c Calcium Phosphorus Magnesium Ferritin Alkaline Phosphatase Lactate Dehydrogenase Troponin T C-Reactive Protein Total Protein Albumin Yqrvh-1-Sysabyiel [place]-9-Mjecxlxct Beta Globulins PEP Interpretation Triglycerides HDL Cholesterol Arterial Blood Glucose Arterial Blood Ionized Calcium Urine WBC (Auto) Coronavirus (PCR) 06/27/21 06/27/21 06/27/21 05:13 06:40 06:40 WBC 12.5 H RBC Hgb Hct RDW 16.1 H Plt Count 23 L Lymph % (Auto) Lymph # (Auto) Seg Neutrophils % Seg Neuts % (Manual) Lymphocytes % (Manual) Nucleated RBC % Seg Neutrophils # 11.3 H Seg Neutrophils # Man Lymphocytes # (Manual) Monocytes # (Manual) PT INR APTT D-Dimer ABG pH POC ABG pCO2 POC ABG pO2 ABG pO2 ABG HCO3 ABG O2 Saturation ABG Base Excess ABG Hemoglobin ABG Oxyhemoglobin ABG Methemoglobin ABG Sodium ABG Potassium ABG Chloride ABG Glucose Oxyhemoglobin Carboxyhemoglobin Sodium 133 L Potassium 5.4 H Chloride 93.4 L Carbon Dioxide BUN 96 H Creatinine 5.6 H Glucose 388 H POC Glucose 329 H Hemoglobin A1c Calcium 8.3 L Phosphorus 8.70 H Magnesium Ferritin Alkaline Phosphatase Lactate Dehydrogenase Troponin T C-Reactive Protein Total Protein Albumin Ypikl-0-Vhyvefequ Hkmvp-4-Ndqrabtfd Beta Globulins PEP Interpretation Triglycerides HDL Cholesterol Arterial Blood Glucose Arterial Blood Ionized Calcium Urine WBC (Auto) Coronavirus (PCR) 06/27/21 06/27/21 06/27/21 11:46 16:30 17:12 WBC RBC Hgb Hct RDW Plt Count Lymph % (Auto) Lymph # (Auto) Seg Neutrophils % Seg Neuts % (Manual) Lymphocytes % (Manual) Nucleated RBC % Seg Neutrophils # Seg Neutrophils # Man Lymphocytes # (Manual) Monocytes # (Manual) PT INR APTT D-Dimer ABG pH 7.180 L POC ABG pCO2 62.9 H POC ABG pO2 111.1 H ABG pO2 ABG HCO3 ABG O2 Saturation ABG Base Excess ABG Hemoglobin 10.7 L ABG Oxyhemoglobin ABG Methemoglobin ABG Sodium 130.6 L ABG Potassium 5.1 H ABG Chloride 95.0 L ABG Glucose 364 H Oxyhemoglobin Carboxyhemoglobin Sodium Potassium Chloride Carbon Dioxide BUN Creatinine Glucose POC Glucose 330 H 276 H Hemoglobin A1c Calcium Phosphorus Magnesium Ferritin Alkaline Phosphatase Lactate Dehydrogenase Troponin T C-Reactive Protein Total Protein Albumin Rilgw-9-Rblkqccbf Jouzp-3-Jidhbcfyt Beta Globulins PEP Interpretation Triglycerides HDL Cholesterol Arterial Blood Glucose 364 H Arterial Blood Ionized Calcium 4.4 L Urine WBC (Auto) Coronavirus (PCR) 06/27/21 06/27/21 06/27/21 21:00 21:16 23:15 WBC RBC Hgb Hct RDW Plt Count Lymph % (Auto) Lymph # (Auto) Seg Neutrophils % Seg Neuts % (Manual) Lymphocytes % (Manual) Nucleated RBC % Seg Neutrophils # Seg Neutrophils # Man Lymphocytes # (Manual) Monocytes # (Manual) PT INR APTT D-Dimer ABG pH 7.283 L 7.257 L POC ABG pCO2 60.1 H POC ABG pO2 ABG pO2 55.0 L ABG HCO3 27.6 H ABG O2 Saturation 85.3 L ABG Base Excess ABG Hemoglobin 10.4 L 9.8 L ABG Oxyhemoglobin ABG Methemoglobin ABG Sodium 135.7 L ABG Potassium ABG Chloride 97.0 L ABG Glucose 309 H Oxyhemoglobin 83.3 L Carboxyhemoglobin Sodium Potassium Chloride Carbon Dioxide BUN Creatinine Glucose POC Glucose 265 H Hemoglobin A1c Calcium Phosphorus Magnesium Ferritin Alkaline Phosphatase Lactate Dehydrogenase Troponin T C-Reactive Protein Total Protein Albumin Lexhj-9-Qzsekqjol Fjfru-0-Iggeisimn Beta Globulins PEP Interpretation Triglycerides HDL Cholesterol Arterial Blood Glucose 309 H Arterial Blood Ionized Calcium Urine WBC (Auto) Coronavirus (PCR) 06/27/21 06/28/21 06/28/21 Unknown 04:25 04:25 WBC 11.6 H RBC 3.44 L Hgb 9.9 L Hct RDW 15.7 H Plt Count 36 L Lymph % (Auto) 7.6 L Lymph # (Auto) 0.9 L Seg Neutrophils % 86.7 H Seg Neuts % (Manual) Lymphocytes % (Manual) Nucleated RBC % Seg Neutrophils # 10.0 H Seg Neutrophils # Man Lymphocytes # (Manual) Monocytes # (Manual) PT 16.5 H INR 1.27 H APTT D-Dimer ABG pH 7.230 L POC ABG pCO2 POC ABG pO2 ABG pO2 92.0 H ABG HCO3 26.2 H ABG O2 Saturation ABG Base Excess ABG Hemoglobin 8.2 L ABG Oxyhemoglobin ABG Methemoglobin ABG Sodium ABG Potassium ABG Chloride ABG Glucose Oxyhemoglobin 94.6 L Carboxyhemoglobin Sodium Potassium Chloride Carbon Dioxide BUN Creatinine Glucose POC Glucose Hemoglobin A1c Calcium Phosphorus Magnesium Ferritin Alkaline Phosphatase Lactate Dehydrogenase Troponin T C-Reactive Protein Total Protein Albumin Cjxlu-9-Cokegdcpd Ywbvt-6-Yeqisqhis Beta Globulins PEP Interpretation Triglycerides HDL Cholesterol Arterial Blood Glucose Arterial Blood Ionized Calcium Urine WBC (Auto) Coronavirus (PCR) 06/28/21 06/28/21 06/28/21 04:25 05:35 12:22 WBC RBC Hgb Hct RDW Plt Count Lymph % (Auto) Lymph # (Auto) Seg Neutrophils % Seg Neuts % (Manual) Lymphocytes % (Manual) Nucleated RBC % Seg Neutrophils # Seg Neutrophils # Man Lymphocytes # (Manual) Monocytes # (Manual) PT INR APTT D-Dimer ABG pH POC ABG pCO2 POC ABG pO2 ABG pO2 ABG HCO3 ABG O2 Saturation ABG Base Excess ABG Hemoglobin ABG Oxyhemoglobin ABG Methemoglobin ABG Sodium ABG Potassium ABG Chloride ABG Glucose Oxyhemoglobin Carboxyhemoglobin Sodium 136 L Potassium Chloride 96.0 L Carbon Dioxide BUN 79 H Creatinine 4.8 H Glucose 301 H POC Glucose 256 H 255 H Hemoglobin A1c Calcium Phosphorus 6.80 H D Magnesium Ferritin Alkaline Phosphatase Lactate Dehydrogenase Troponin T C-Reactive Protein Total Protein Albumin Biggl-4-Btagthpmi Fnowm-2-Dhrvznlxo Beta Globulins PEP Interpretation Triglycerides HDL Cholesterol Arterial Blood Glucose Arterial Blood Ionized Calcium Urine WBC (Auto) Coronavirus (PCR) 06/28/21 06/29/21 06/29/21 18:18 00:36 04:34 WBC 12.0 H RBC 3.35 L Hgb 9.5 L Hct 29.4 L RDW 16.1 H Plt Count 45 L Lymph % (Auto) Lymph # (Auto) Seg Neutrophils % Seg Neuts % (Manual) Lymphocytes % (Manual) Nucleated RBC % Seg Neutrophils # Seg Neutrophils # Man Lymphocytes # (Manual) Monocytes # (Manual) PT INR APTT D-Dimer ABG pH POC ABG pCO2 POC ABG pO2 ABG pO2 ABG HCO3 ABG O2 Saturation ABG Base Excess ABG Hemoglobin ABG Oxyhemoglobin ABG Methemoglobin ABG Sodium ABG Potassium ABG Chloride ABG Glucose Oxyhemoglobin Carboxyhemoglobin Sodium Potassium Chloride Carbon Dioxide BUN Creatinine Glucose POC Glucose 228 H 153 H Hemoglobin A1c Calcium Phosphorus Magnesium Ferritin Alkaline Phosphatase Lactate Dehydrogenase Troponin T C-Reactive Protein Total Protein Albumin Aqrgn-5-Tzgjuwxhd Goyzq-7-Psbcsvahy Beta Globulins PEP Interpretation Triglycerides HDL Cholesterol Arterial Blood Glucose Arterial Blood Ionized Calcium Urine WBC (Auto) Coronavirus (PCR) 06/29/21 06/29/21 06/29/21 04:34 05:19 12:30 WBC RBC Hgb Hct RDW Plt Count Lymph % (Auto) Lymph # (Auto) Seg Neutrophils % Seg Neuts % (Manual) Lymphocytes % (Manual) Nucleated RBC % Seg Neutrophils # Seg Neutrophils # Man Lymphocytes # (Manual) Monocytes # (Manual) PT INR APTT D-Dimer ABG pH POC ABG pCO2 POC ABG pO2 ABG pO2 ABG HCO3 ABG O2 Saturation ABG Base Excess ABG Hemoglobin ABG Oxyhemoglobin ABG Methemoglobin ABG Sodium ABG Potassium ABG Chloride ABG Glucose Oxyhemoglobin Carboxyhemoglobin Sodium Potassium 5.2 H Chloride 95.8 L Carbon Dioxide BUN 97 H Creatinine 5.6 H Glucose 184 H POC Glucose 180 H 161 H Hemoglobin A1c Calcium 8.1 L Phosphorus Magnesium Ferritin Alkaline Phosphatase 132 H Lactate Dehydrogenase Troponin T C-Reactive Protein Total Protein 6.0 L Albumin 3.3 L Gnxbb-0-Irvodmdpb Xthxq-8-Swdolvxqi Beta Globulins PEP Interpretation Triglycerides HDL Cholesterol Arterial Blood Glucose Arterial Blood Ionized Calcium Urine WBC (Auto) Coronavirus (PCR) 06/29/21 06/29/21 06/29/21 13:17 17:29 23:27 WBC RBC Hgb Hct RDW Plt Count Lymph % (Auto) Lymph # (Auto) Seg Neutrophils % Seg Neuts % (Manual) Lymphocytes % (Manual) Nucleated RBC % Seg Neutrophils # Seg Neutrophils # Man Lymphocytes # (Manual) Monocytes # (Manual) PT INR APTT D-Dimer ABG pH 7.243 L POC ABG pCO2 62.5 H POC ABG pO2 81.6 L ABG pO2 ABG HCO3 ABG O2 Saturation ABG Base Excess ABG Hemoglobin 11.2 L ABG Oxyhemoglobin 93.3 L ABG Methemoglobin ABG Sodium 134.3 L ABG Potassium ABG Chloride 96.0 L ABG Glucose 171 H Oxyhemoglobin Carboxyhemoglobin 1.6 H Sodium Potassium Chloride Carbon Dioxide BUN Creatinine Glucose POC Glucose 186 H 151 H Hemoglobin A1c Calcium Phosphorus Magnesium Ferritin Alkaline Phosphatase Lactate Dehydrogenase Troponin T C-Reactive Protein Total Protein Albumin Mhzku-6-Qrrirvhsz Dovcx-3-Ytpvxdocn Beta Globulins PEP Interpretation Triglycerides HDL Cholesterol Arterial Blood Glucose 171 H Arterial Blood Ionized Calcium Urine WBC (Auto) Coronavirus (PCR) 06/30/21 06/30/21 06/30/21 04:30 04:30 04:30 WBC 12.5 H RBC 3.25 L Hgb 9.1 L Hct 28.3 L RDW 16.2 H Plt Count 72 L Lymph % (Auto) Lymph # (Auto) Seg Neutrophils % Seg Neuts % (Manual) Lymphocytes % (Manual) Nucleated RBC % Seg Neutrophils # Seg Neutrophils # Man Lymphocytes # (Manual) Monocytes # (Manual) PT 16.7 H INR 1.22 H APTT D-Dimer ABG pH POC ABG pCO2 POC ABG pO2 ABG pO2 ABG HCO3 ABG O2 Saturation ABG Base Excess ABG Hemoglobin ABG Oxyhemoglobin ABG Methemoglobin ABG Sodium ABG Potassium ABG Chloride ABG Glucose Oxyhemoglobin Carboxyhemoglobin Sodium 136 L Potassium Chloride 91.6 L Carbon Dioxide BUN 80 H Creatinine 4.6 H Glucose 164 H POC Glucose Hemoglobin A1c Calcium Phosphorus Magnesium Ferritin Alkaline Phosphatase Lactate Dehydrogenase Troponin T C-Reactive Protein Total Protein Albumin Nplaq-4-Rnlxpvfzi Upkbs-0-Zcdqdrlog Beta Globulins PEP Interpretation Triglycerides HDL Cholesterol Arterial Blood Glucose Arterial Blood Ionized Calcium Urine WBC (Auto) Coronavirus (PCR) 06/30/21 06/30/21 06/30/21 05:41 08:59 11:24 WBC RBC Hgb Hct RDW Plt Count Lymph % (Auto) Lymph # (Auto) Seg Neutrophils % Seg Neuts % (Manual) Lymphocytes % (Manual) Nucleated RBC % Seg Neutrophils # Seg Neutrophils # Man Lymphocytes # (Manual) Monocytes # (Manual) PT INR APTT D-Dimer ABG pH 7.269 L POC ABG pCO2 58.5 H POC ABG pO2 70.1 L ABG pO2 ABG HCO3 ABG O2 Saturation ABG Base Excess ABG Hemoglobin 10.1 L ABG Oxyhemoglobin 91.3 L ABG Methemoglobin ABG Sodium 132.0 L ABG Potassium 4.8 H ABG Chloride 95.0 L ABG Glucose 172 H Oxyhemoglobin Carboxyhemoglobin Sodium Potassium Chloride Carbon Dioxide BUN Creatinine Glucose POC Glucose 155 H 163 H Hemoglobin A1c Calcium Phosphorus Magnesium Ferritin Alkaline Phosphatase Lactate Dehydrogenase Troponin T C-Reactive Protein Total Protein Albumin Bitth-7-Feuatzeyy Cfehw-2-Jyuxbmdpr Beta Globulins PEP Interpretation Triglycerides HDL Cholesterol Arterial Blood Glucose 172 H Arterial Blood Ionized Calcium Urine WBC (Auto) Coronavirus (PCR) Allied health notes reviewed: nursing
--- NOTE | 2021-06-30 18:21 | Progress Note ---
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 Hospital Course to Date: 06/27/21- Patient remains intubated and sedated on fent gtt, RASS -2 to -3, not following any commands. Afib with RVR overnight was started on amio gtt, no BM for over 7days, bowel regimen was adjusted and reglan was added. Remains on high dose steroids, will start weaning steroids to twice a day starting tomorrow. Electrolytes imbalance noted with worsening in renal function, plan for HD today. 1jumbo of plt ordered for worsening throbocytopenia. Continue t o monitor electrolytes and renal function, am labs ordered. 06/28/21- Patient status is unchanged, remains on the vent and on low dose fentanyl. Plt still less than 50 s/p 1unit of plt, ddtional 1 unit of plt ordered. Afib with RVR this am, d/w cardio plan to switch amio gtt to cardizem gtt for rate control. Patient remains hyperglycemic adjustment made to basal insulin. will continue to monitor, am labs ordered 06/29/21- Patient status is unchanged, on the vent and on fentanyl gtt, arousable but does not follow commands with +gag and cough. Remains of the cardizem gtt for rate control, off pressors. Platelet 45 this am, 1unit of platelets orderd. Plan for HD today per Nephro. Continue to monitor renal f unction and electrolytes. 06/30/21- Patient remains intubated on fentynal gtt RASS 0 to -1. on cardizem gtt for rate control, more control this morning, HR 90 to low 100s. Patient is still with high gastric residual but no vomiting, continue enteral nutrition and follow facility protocol. Still no BM, will add supp PRN, continue reglan IV. Plt improved to 72 this am, no need for transfusion however will continue to hold AC at this time. Assessment and Plan #Neuro: Seizure, acute metabolic encephalopathy -Witnessed seizure (06/23/2021) -06/26 CT head with no acute findings -EEG report pending -Continue Vimpat 100 mg twice daily in the setting of worsening renal function -Neurology consulted, appreciate recommendations -Aspiration/seizure precautions -Sedated with fentanyl for RASS goal of 0 to -1 #Cardio: Atrial Fibrilation #Hypotension #H/o CAD -Afib RVR 110 to 120 -amio gtt D/C, Per Cardio plan to transition to cardize gtt for rate control -Off pressors this morning -Vasopressor support as needed for MAP goal >65 -Hold antihypertensive at this time in the setting of hypotension -Continue home statin -Continue midodrine -AC on hold due to bleed and low plt #Respiratory: Acute hypoxic respiratory failure, ARDS 2/2 COVID 19 PNA -06/22 intubated with 7.50 ETT at 23 at the lips -Vent setting: A/C 90%,14,30,450 -Remain acidotic from this am ABGs, d/w CCM vent changes made -Still on high dose steriods, start weaning steroids today -Continue daily serial ABGs and CXR #GI: MO, protein calorie malnutrition -Reglan added on 06/27 to promote peristalsis -Last BM on 06/14 -Continue BR: Senokot, colace, Miralax added -Continue enteral nutrition as tolerated -consider KUB if patient start having emesis -Continue PPI- Pepcid #: CKD stage III #hyperkalemia; hyperphosphatemia #metabolic acidosis -Nephrology consulted, appreciate recommendations -Hemodialysis initiated status post placement of access; last received on 06/25 -Electrolytes imbalance improved -last HD on 06/27- 1L out -Continue HD management per Nephro -Renally dosed medications and avoid nephrotoxic medications #Heme: h/o DVT, coagulopathy of COVID #Thrombocytopenia -Patient was on Eliquis which was discontinued and converted to therapeutic Lovenox -Lovenox was switched to Heparin in the setting of worsening renal function -Bilateral lower extremity Doppler ultrasound completed-> no acute DVT -Transitioned to Eliquis for anticoagulation in the setting of worsening thrombocytopenia, now on hold due to bleeding from ETT - Plt 45 today s/p 2 unit of plt; additional 1 unit ordered -HEME on consult, appreciate recommendations -Pending HIT assay results -SCDs to bilateral directions while in bed -Trend CBC daily -Transfuse for hemoglobin less than 7 and plt less than 50 #ID: Sepsis, COVID-19 pneumonia -Infectious disease consulted, appreciate recommendations -S/p steroids for 10 days; S/p remdesivir -Still on high dose steroids -Vitamin C/zinc/vitamin D -contact/droplet isolation precautions -Trend COVID-19 inflammatory markers every 2-3 days -Currently on cefepime and vancomycin #Endo: Hyperglycemia; #H/o insulin-dependent diabetes #Hypothyroidism -Continue IV levothyroxine 200 mcg -On high dose steroids -Accu-Cheks every 6 hours; on high dose SSI -Adjusted NPH TID for better glucose control -Goal glucose 140-180 while critically ill The high probability of a clinically significant, sudden or life threatening deterioration of the [cardio, respiratory, Endo] system(s) required my full and direct attention, intervention and personal management. The aggregate critical care time was [60] minutes. This time is in addition to time spent performing reported procedures but includes the following: [x] Data Review and interpretation [x] Patient assessment and monitoring of vital signs [x] Documentation [x] Medication orders and management Disposition Plan: Continue medical management Total Time Spent with Patient (Minutes): 60 History Interval history: Patient seen and examined. Remains intubated and sedated on fent gtt. On cardizem gtt for rate control. No significant events overnight Hospitalist Physical - Constitutional Vitals: Temp Pulse Resp BP Pulse Ox 99.0 F 108 H 32 H 158/62 93 06/30/21 08:00 06/30/21 17:00 06/30/21 17:00 06/30/21 17:00 06/30/21 17:00 General appearance: Present: no acute distress, well-nourished, obese - EENT Eyes: Present: PERRL - Respiratory Respiratory effort: normal Respiratory: bilateral: rhonchi - Cardiovascular Rhythm: irregularly irregular Heart Sounds: Present: S1 & S2 - Extremities Extremities: no ischemia, pulses intact, pulses symmetrical Extremity abnormal: edema - Peripheral Assessment Generalized Edema Type: Non-pitting Edema Degree: 1+ Capillary Refill: < 3 seconds Skin Temperature: Warm Peripheral Pulses: within normal limits - Abdominal General gastrointestinal: non-tender, normal bowel sounds - Integumentary Integumentary: Present: clear, warm, dry - Psychiatric Psychiatric: other (MIKHAIL) - Neurologic Neurologic: other (MIKHAIL) - Allied Health Allied health notes reviewed: nursing HEART Score - HEART Score EKG: Non-specific Age: 45-65 Risk factors: 1-2 risk factors Troponin: Troponin T 0.021 ng/mL (0.00-0.029) 06/08/21 13:49 - Critical Actions Critical Actions: 0-3 pts:0.9-1.7%risk of adverse cardiac event.Candidate for discharge Results - Labs CBC & Chem 7: 06/30/21 04:30 06/30/21 04:30 Labs: Laboratory Last Values WBC 12.5 K/mm3 (4.5-11.0) H 06/30/21 04:30 RBC 3.25 M/mm3 (3.65-5.03) L 06/30/21 04:30 Hgb 9.1 gm/dl (10.1-14.3) L 06/30/21 04:30 Hct 28.3 % (30.3-42.9) L 06/30/21 04:30 MCV 87 fl (79-97) 06/30/21 04:30 MCH 28 pg (28-32) 06/30/21 04:30 MCHC 32 % (30-34) 06/30/21 04:30 RDW 16.2 % (13.2-15.2) H 06/30/21 04:30 Plt Count 72 K/mm3 (140-440) L 06/30/21 04:30 Lymph % (Auto) 7.6 % (13.4-35.0) L 06/28/21 04:25 [place] % (Auto) 5.6 % (0.0-7.3) 06/28/21 04:25 Eos % (Auto) 0.0 % (0.0-4.3) 06/28/21 04:25 Baso % (Auto) 0.1 % (0.0-1.8) 06/28/21 04:25 Lymph # (Auto) 0.9 K/mm3 (1.2-5.4) L 06/28/21 04:25 [place] # (Auto) 0.7 K/mm3 (0.0-0.8) 06/28/21 04:25 Eos # (Auto) 0.0 K/mm3 (0.0-0.4) 06/28/21 04:25 Baso # (Auto) 0.0 K/mm3 (0.0-0.1) 06/28/21 04:25 Add Manual Diff Complete 06/27/21 06:40 Total Counted 100 06/24/21 04:55 Seg Neutrophils % 86.7 % (40.0-70.0) H 06/28/21 04:25 Seg Neuts % (Manual) 68.0 % (40.0-70.0) 06/24/21 04:55 Band Neutrophils % 23.0 % 06/24/21 04:55 Lymphocytes % (Manual) 1.0 % (13.4-35.0) L 06/24/21 04:55 Monocytes % (Manual) 6.0 % (0.0-7.3) 06/23/21 04:42 Eosinophils % (Manual) 2.0 % (0.0-4.3) 06/23/21 04:42 Metamyelocytes % 2.0 % 06/10/21 23:14 Myelocytes % 8.0 % 06/24/21 04:55 Nucleated RBC % Not Reportable 06/27/21 06:40 Seg Neutrophils # 10.0 K/mm3 (1.8-7.7) H 06/28/21 04:25 Seg Neutrophils # Man 12.7 K/mm3 (1.8-7.7) H 06/24/21 04:55 Band Neutrophils # 4.3 K/mm3 06/24/21 04:55 Lymphocytes # (Manual) 0.2 K/mm3 (1.2-5.4) L 06/24/21 04:55 Abs React Lymphs (Man) 0.0 K/mm3 06/24/21 04:55 Monocytes # (Manual) 0.0 K/mm3 (0.0-0.8) 06/24/21 04:55 Eosinophils # (Manual) 0.0 K/mm3 (0.0-0.4) 06/24/21 04:55 Basophils # (Manual) 0.0 K/mm3 (0.0-0.1) 06/24/21 04:55 Metamyelocytes # 0.0 K/mm3 06/24/21 04:55 Myelocytes # 1.5 K/mm3 06/24/21 04:55 Promyelocytes # 0.0 K/mm3 06/24/21 04:55 Blast Cells # 0.0 K/mm3 06/24/21 04:55 WBC Morphology Not Reportable 06/27/21 06:40 Hypersegmented Neuts Not Reportable 06/27/21 06:40 Hyposegmented Neuts Not Reportable 06/27/21 06:40 Hypogranular Neuts Not Reportable 06/27/21 06:40 Smudge Cells Not Reportable 06/27/21 06:40 Toxic Granulation Not Reportable 06/27/21 06:40 Toxic Vacuolation Not Reportable 06/27/21 06:40 Dohle Bodies Not Reportable 06/27/21 06:40 Pelger-Huet Anomaly Not Reportable 06/27/21 06:40 Nba Rods Not Reportable 06/27/21 06:40 Platelet Estimate 30 06/27/21 06:40 Clumped Platelets Not Reportable 06/27/21 06:40 Plt Clumps, EDTA Not Reportable 06/27/21 06:40 Large Platelets 1+ 06/27/21 06:40 Giant Platelets Not Reportable 06/27/21 06:40 Platelet Satelliting Not Reportable 06/27/21 06:40 Plt Morphology Comment Not Reportable 06/27/21 06:40 RBC Morphology Not Reportable 06/27/21 06:40 Dimorphic RBCs Not Reportable 06/27/21 06:40 Polychromasia Not Reportable 06/27/21 06:40 Hypochromasia Not Reportable 06/27/21 06:40 Poikilocytosis Not Reportable 06/27/21 06:40 Anisocytosis Not Reportable 06/27/21 06:40 Microcytosis Not Reportable 06/27/21 06:40 Macrocytosis Not Reportable 06/27/21 06:40 Spherocytes Not Reportable 06/27/21 06:40 Pappenheimer Bodies Not Reportable 06/27/21 06:40 Sickle Cells Not Reportable 06/27/21 06:40 Target Cells Not Reportable 06/27/21 06:40 Tear Drop Cells Not Reportable 06/27/21 06:40 Ovalocytes Not Reportable 06/27/21 06:40 Helmet Cells Not Reportable 06/27/21 06:40 [place] Bodies Not Reportable 06/27/21 06:40 G[place]an Rings Not Reportable 06/27/21 06:40 Weare Cells Not Reportable 06/27/21 06:40 Bite Cells Not Reportable 06/27/21 06:40 Crenated Cell Not Reportable 06/27/21 06:40 Elliptocytes 1+ 06/27/21 06:40 Acanthocytes (Spur) Not Reportable 06/27/21 06:40 Rouleaux Not Reportable 06/27/21 06:40 Hemoglobin C Crystals Not Reportable 06/27/21 06:40 Schistocytes Not Reportable 06/27/21 06:40 Malaria parasites Not Reportable 06/27/21 06:40 Luis Bodies Not Reportable 06/27/21 06:40 Hem Pathologist Commnt No 06/27/21 06:40 PT 16.7 Sec. (12.2-14.9) H 06/30/21 04:30 INR 1.22 (0.87-1.13) H 06/30/21 04:30 APTT 27.3 Sec. (24.2-36.6) 06/30/21 04:30 Fibrinogen 316 mg/dl (211-480) 06/30/21 04:30 D-Dimer 1363.54 ng/mlDDU (0-234) H 06/26/21 10:00 Heparin Anti-Xa, Unfract Negative (Negative) 06/25/21 17:55 ABG pH 7.269 (7.320-7.450) L 06/30/21 08:59 POC ABG pCO2 58.5 mmHg (32.0-48.0) H 06/30/21 08:59 ABG pCO2 64.0 mm Hg 06/27/21 Unknown POC ABG pO2 70.1 mmHg (83-108) L 06/30/21 08:59 ABG pO2 92.0 mm Hg (80.0-90.0) H 06/27/21 Unknown POC ABG HCO3 26.3 06/30/21 08:59 ABG HCO3 26.2 mmol/L (20.0-26.0) H 06/27/21 Unknown ABG O2 Saturation 92.6 (0-100) 06/30/21 08:59 ABG O2 Content 11.1 (0.0-44) 06/27/21 Unknown POC ABG Base Excess -1.3 06/30/21 08:59 ABG Base Excess -1.7 mmol/L (-2.0-3.0) 06/27/21 Unknown ABG Hemoglobin 10.1 (12.0-17.5) L 06/30/21 08:59 ABG Oxyhemoglobin 91.3 (94-98) L 06/30/21 08:59 ABG Carboxyhemoglobin 1.7 % (0.0-5.0) 06/27/21 Unknown ABG Methemoglobin 0.3 (0.0-1.5) 06/30/21 08:59 ABG Sodium 132.0 mmol/L (136.0-145.0) L 06/30/21 08:59 ABG Potassium 4.8 mmol/L (3.40-4.50) H 06/30/21 08:59 ABG Chloride 95.0 mmol/L (98-107) L 06/30/21 08:59 ABG Glucose 172 mg/dL (65-95) H 06/30/21 08:59 Oxyhemoglobin 94.6 % (95.0-99.0) L 06/27/21 Unknown Carboxyhemoglobin 1.1 (0.5-1.5) 06/30/21 08:59 FiO2 75 % 06/27/21 Unknown FiO2 % 90.0 06/30/21 08:59 Sodium 136 mmol/L (137-145) L 06/30/21 04:30 Potassium 4.8 mmol/L (3.6-5.0) 06/30/21 04:30 Chloride 91.6 mmol/L (98-107) L 06/30/21 04:30 Carbon Dioxide 24 mmol/L (22-30) 06/30/21 04:30 Anion Gap 25 mmol/L 06/30/21 04:30 BUN 80 mg/dL (7-17) H 06/30/21 04:30 Creatinine 4.6 mg/dL (0.6-1.2) H 06/30/21 04:30 Estimated GFR 12 ml/min 06/30/21 04:30 BUN/Creatinine Ratio 17 % 06/30/21 04:30 Glucose 164 mg/dL (65-100) H 06/30/21 04:30 POC Glucose 156 mg/dL (70-105) H 06/30/21 18:02 Hemoglobin A1c 9.5 % (4-6) H 06/07/21 19:11 Calcium 8.6 mg/dL (8.4-10.2) 06/30/21 04:30 Phosphorus 6.80 mg/dL (2.5-4.5) H D 06/28/21 04:25 Magnesium 2.30 mg/dL (1.7-2.3) 06/28/21 04:25 Ferritin 1094.0 ng/mL (10.0-200.0) H 06/23/21 Unknown Total Bilirubin 0.50 mg/dL (0.1-1.2) 06/29/21 04:34 AST 22 units/L (5-40) 06/29/21 04:34 ALT 23 units/L (7-56) 06/29/21 04:34 Alkaline Phosphatase 132 units/L (35-129) H 06/29/21 04:34 Lactate Dehydrogenase 606 units/L (91-180) H 06/10/21 23:14 Troponin T 0.021 ng/mL (0.00-0.029) 06/08/21 13:49 C-Reactive Protein 4.40 mg/dL (0.00-1.30) H 06/23/21 04:42 Serum Total Protein 7.0 g/dL (6.1-8.1) 06/10/21 23:14 Total Protein 6.0 g/dL (6.3-8.2) L 06/29/21 04:34 Albumin 3.3 g/dL (3.9-5) L 06/29/21 04:34 Albumin/Globulin Ratio 1.2 % 06/29/21 04:34 [id number]-4-Klsfasrnr 0.5 g/dL (0.2-0.3) H 06/10/21 23:14 Zzhmm-3-[id number] 1.7 g/dL (0.5-0.9) H 06/10/21 23:14 Beta Globulins 0.6 g/dL (0.2-0.5) H 06/10/21 23:14 Gamma Globulins 1.3 g/dL (0.8-1.7) 06/10/21 23:14 Abnorm Protein Band 1 see below 06/10/21 23:14 PEP Interpretation see below H 06/10/21 23:14 Triglycerides 209 mg/dL (2-149) H 06/07/21 19:11 Cholesterol 165 mg/dL (50-199) 06/07/21 19:11 LDL Cholesterol Direct 79 mg/dL (50-130) 06/07/21 19:11 HDL Cholesterol 35 mg/dL (40-59) L 06/07/21 19:11 Cholesterol/HDL Ratio 4.71 % 06/07/21 19:11 Procalcitonin 0.91 ng/mL (<0.15) 06/07/21 19:11 Arterial Blood Glucose 172 mg/dL (65-95) H 06/30/21 08:59 Arterial Blood Ionized Calcium 4.4 mg/dL (4.6-5.3) L 06/27/21 16:30 Urine Color Sole (Yellow) 06/23/21 17:40 Urine Turbidity Cloudy (Clear) 06/23/21 17:40 Urine pH 6.0 (5.0-7.0) 06/23/21 17:40 Ur Specific [place] 1.017 (1.003-1.030) 06/23/21 17:40 Urine Protein >500 mg/dL (Negative) 06/23/21 17:40 Urine Glucose (UA) 50 mg/dL (Negative) 06/23/21 17:40 Urine Ketones Neg mg/dL (Negative) 06/23/21 17:40 Urine Blood Lg (Negative) 06/23/21 17:40 Urine Nitrite Neg (Negative) 06/23/21 17:40 Urine Bilirubin Neg (Negative) 06/23/21 17:40 Urine Urobilinogen < 2.0 mg/dL (<2.0) 06/23/21 17:40 Ur Leukocyte Esterase Mod (Negative) 06/23/21 17:40 Urine WBC (Auto) > 182.0 /HPF (0.0-6.0) H 06/23/21 17:40 Urine RBC (Auto) > 182.0 /HPF (0.0-6.0) 06/23/21 17:40 Urine WBC Clumps 3+ /HPF 06/23/21 17:40 Uric Acid Crystals 1+ 06/23/21 17:40 Urine Mucus Few /HPF 06/23/21 17:40 Random Vancomycin 13.8 ug/mL (0-40.0) 06/26/21 07:00 Heparin-induced Plt Ab Negative (Negative) 06/25/21 17:55 UF Heparin High Dose 0 % Release 06/25/21 17:55 BESS UFH Low Dose 0.1 0 % Release 06/25/21 17:55 BESS UFH Low Dose 0.5 0 % Release 06/25/21 17:55 Coronavirus (PCR) Positive (Negative) A 06/08/21 08:30 Hepatitis A IgM Ab Non-reactive (NonReactive) 06/24/21 15:57 Hep Bs Antigen Nonreactive (Negative) 06/24/21 15:57 Hep B Core IgM Ab Non-reactive (NonReactive) 06/24/21 15:57 Hepatitis C Antibody Non-reactive (NonReactive) 06/24/21 15:57 Blood Type B POSITIVE 06/27/21 12:12 Antibody Screen Negative 06/27/21 12:12 Roland/IV: Voiding Method Indwelling Catheter Active Medications - Current Medications Current Medications: Generic Name Dose Route Start Last Admin Trade Name Freq PRN Reason Stop Dose Admin Acetaminophen 650 mg 06/07/21 21:41 06/24/21 11:45 Acetaminophen 325 Mg Tab PO 650 mg Q4H PRN Administration Pain MILD(1-3)/Fever >100.5/MARTÍNEZ Albumin Human 25 gm 06/24/21 14:55 06/27/21 17:47 Albumin Human 25% (25 Gm/100 Ml) Inj IV 25 gm KORINA PRN Administration Hypotension Albuterol 2 mg 06/23/21 09:00 Albuterol 2.5 Mg/3 Ml Nebu IH Q4HRT PRN Shortness Of Breath Lipase/Protease/Amylase 1 each 06/28/21 12:15 Lipase 10,500/Protease 25,000/Amylase 43,750 (Units) Dr Barahona FEEDTUBE PRN PRN For Clogged Feeding Tube Ascorbic Acid 500 mg 06/22/21 22:00 06/30/21 09:03 Ascorbic Acid 500 Mg Tab PO 500 mg BID LEONOR Administration Atorvastatin Calcium 10 mg 06/08/21 10:00 06/30/21 09:03 Atorvastatin 10 Mg Tab PO 10 mg DAILY LEONOR Administration Dextrose 50 ml 06/08/21 12:04 06/20/21 12:16 Dextrose 50% In Water (25gm) 50 Ml Syringe IV 50 ml Q30MIN PRN Administration Hypoglycemia Protocol Docusate Sodium 100 mg 06/29/21 22:00 06/30/21 09:03 Docusate Sodium 100 Mg/10 Ml Oral Liqd PO 100 mg BID LEONOR Administration Famotidine 10 mg 06/22/21 22:00 06/30/21 09:03 Famotidine 20 Mg/2 Ml Inj IV 10 mg BID LEONOR Administration Fentanyl 100 mcg 06/28/21 18:03 06/30/21 11:59 Fentanyl 100 Mcg/2 Ml Inj IV 100 mcg Q30MIN PRN Administration ANALGESIA Hydrophilic Ointment 1 applic 06/22/21 13:07 Lip Therapy Vaseline TP Q2HR PRN Dry Lips Fentanyl Citrate 2,000 mcg in 100 mls @ 8.2 mls/hr 06/22/21 14:00 06/30/21 14:56 Fentanyl Drip Premix IV 4 mcg/kg/hr TITR LEONOR 32.8 mls/hr Administration Protocol 1 MCG/KG/HR NORepinephrine/NS 8 MG-250 ML 8 mg in 250 mls @ 3.75 mls/hr 06/22/21 15:00 06/27/21 19:29 Norepinephrine/Ns 8 Mg-250 Ml (Double Conc) IV 0 mcg/min TITRATE LEONOR 0 mls/hr Titration Protocol 2 MCG/MIN Vasopressin 20 unit/ Sodium 101 mls @ 9.09 mls/hr 06/23/21 09:00 06/25/21 16:25 Chloride IV 0 units/min TITR LEONOR 0 mls/hr Titration Protocol 0.03 UNITS/MIN Sodium Chloride 500 mls @ 1 mls/hr 06/23/21 11:19 Nacl 0.9% 500 Ml IV DIRECT PRN ARTERIAL LINE FLUSH Lacosamide 100 mg/ Sodium 110 mls @ 100 mls/hr 06/23/21 15:00 06/30/21 14:56 Chloride IV 100 mls/hr Q12H LEONOR Administration Diltiazem HCl 100 mg in 100 mls @ 7.5 mls/hr 06/28/21 10:15 06/30/21 12:48 Cardizem/D5w 100mg/100ml IV 7.5 mg/hr TITR LEONOR 7.5 mls/hr Titration Protocol 7.5 MG/HR Sodium Chloride 100 mls @ 999 mls/hr 06/28/21 16:00 Nacl 0.9% IV KORINA PRN Hypotension Insulin Human Isoph/Insulin Regular 30 unit 06/29/21 17:00 06/30/21 08:09 Insulin Nph/Regular 70/30 Inj SUB-Q 30 unit BIDDIAB LEONOR Administration Insulin Human Regular 0 units 06/22/21 18:00 06/30/21 12:00 Insulin Regular, Human 100 Units/1 Ml SUB-Q 3 units Q6HR [facility] Administration Protocol Levothyroxine Sodium 137.5 mcg 06/23/21 06:00 06/30/21 06:06 Levothyroxine 100 Mcg Inj IV 137.5 mcg DAILY@0600 [facility] Administration Methylprednisolone Sodium Succinate 100 mg 06/29/21 18:00 06/30/21 08:09 Methylprednisolone Sod Succinate 125 Mg/2 Ml Inj IV 100 mg Q12H LEONOR Administration Metoclopramide HCl 5 mg 06/29/21 14:00 06/30/21 14:56 Metoclopramide 10 Mg/2 Ml Inj IV 07/01/21 13:59 5 mg Q8HR LEONOR Administration Midazolam HCl 5 mg 06/26/21 16:00 Midazolam 5 Mg/5 Ml Inj Mdv IV 07/06/21 23:59 PRN NR Midodrine 10 mg 06/22/21 15:00 06/30/21 15:20 Midodrine 5 Mg Tab PO Not Given Q8H [facility] Multi-Ingred Cream/Lotion/Oil/Oint 1 applic 06/22/21 13:07 Mineral Oil/Petrolatum, White Ophth Oint 3.5 Gm OU Q4HR PRN Dry Eye(s) Ondansetron HCl 4 mg 06/07/21 21:41 06/20/21 22:15 Ondansetron 4 Mg/2 Ml Inj IV 4 mg Q8H PRN Administration Nausea And Vomiting Polyethylene Glycol 17 gm 06/29/21 18:00 06/30/21 09:03 Polyethylene Glycol 3350 17 Gm Powder PO 17 gm QDAY [facility] Administration Senna/Docusate Sodium 1 tab 06/22/21 22:00 06/30/21 09:03 Sennosides/Docusate Sodium 8.6/50 Mg Tab FEEDTUBE 1 tab BID LEONOR Administration Simple Syrup 15 ml 06/28/21 12:15 Simple Syrup 15 Ml FEEDTUBE PRN PRN Hypoglycemia Simple Syrup 30 ml 06/28/21 12:15 Simple Syrup 15 Ml FEEDTUBE PRN PRN Hypoglycemia Sodium Bicarbonate 325 mg 06/28/21 12:15 Sodium Bicarbonate 325 Mg Tab FEEDTUBE PRN PRN For Clogged Feeding Tube Sodium Chloride 10 ml 06/07/21 22:00 06/30/21 09:03 Sodium Chloride 0.9% 10 Ml Flush Syringe IV 10 ml BID LEONOR Administration Sodium Chloride 10 ml 06/07/21 21:41 Sodium Chloride 0.9% 10 Ml Flush Syringe IV PRN PRN LINE FLUSH Zinc Sulfate 220 mg 06/22/21 22:00 06/30/21 09:03 Zinc Sulfate 220 Mg Cap PO 220 mg BID LEONOR Administration Nutrition/Malnutrition Assess - Dietary Evaluation Nutrition/Malnutrition Findings: Nutrition Notes Start: 06/08/21 10:56 Freq: Status: Active Protocol: Document 06/28/21 11:35 GB (Rec: 06/28/21 12:13 GB [id number]) Nutrition Notes Initial or Follow up Reassessment Current Diagnosis Acute Kidney Injury,Diabetes Other Pertinent Diagnosis Pneumonia/COVID-19, hypothyroidism. Current Diet Tube feeding - Nepro goal 50ml /hr Labs/Tests 06/28: Na 136, BUN 79, creatinine 4.8, glucose 301, P 6.8 showing improvement Pertinent Medications Vit C, D5 PRN, fentanyl citrate, Norepenephrine/Ns 8 - Mg 250, Zn Sulfate Height 5 ft 11 in Weight 190.4 kg [place] Body Weight (kg) 70.45 BMI 58.5 Weight change and time frame 06/24: 164.654kg 06/27: 190.4 kg change of +25.7kg for +15.6% significance Weight Status Morbidly Obese Subjective/Other Information MD note 06/27: HD on 06/27, renal labs declining, high residual TF held, begin weaning steroids BM: no bowel movement RECOMMEND: CHANGE TF TO 20ML/ HR UNTIL BM OCCURS, gradually increase back to goal. Percent of energy/protein needs met: Prescribed Tube feeding diet meets 75-100% energy/protein needs. Burn Absent Trauma Absent GI Symptoms Constipation Difficulty In Swallowing Food Allergy Yes Skin Integrity/Comment N/A Current % PO Other Minimum of two criteria No physical signs of malnutrition #1 Nutrition Diagnosis Inadequate energy intake Comments: 06/28: Hypo-active bowels, no movement Etiology COVID=19/pneumonia As Evidenced by Signs and Symptoms Fair tolerance to food, intake of meals between 0-25%. 06/28: intubated/sedated/on TF Diagnosis Progress(for reassessment Continues documentation) Is patient on ventilator? Yes Is Patient Ambulatory and/or Out of Bed No REE-([facility]-confined to bed) 3087.624 Kcal/Kg value to use for calculation 13 Approximate Energy Requirements Using 2475 kcal/Kg Additional Notes Protein: up to 0.7 g/Kg/day @ 164kg: up to 114g Fluids: 1.0 ml/Kcal, or as per MD. Nutrition Intervention Change Diet Order: NPO continue Nutrition Support: Nepro @ 50ml/hr Flush; 150ml every 4 hrs. or as per MD. Run TF at 20ml/hr until BM occurs (no bowel movement, +15% wt gain) Kcal 2,160 Protein (gm) 97 Carbohydrates (gm) 160 Fat (gm) 115 Fluid (mL) 872 Goal #1 Maintain body weight within +/ -3% of actual BWt during LOS. 06/28: not met, +15% r/t no bowel movement, poor renal function, compromised GI function Goal #2 Tolerate TF at goal rate of 50ml/hr during LOS 06/28: high residuals on 06/27 , no bowel movement Goal #3 Nutritional related labs to improve toward acceptable ranges during LOS. 06/28: continues Follow-Up By: 07/01/21 Additional Comments Nepro at minimal rate 20ml/hr. Flush 150/4hr. until BM occurs. Run at minimal rate x3 days.
--- NOTE | 2021-06-30 19:14 | Progress Note ---
Assessment and Plan COVID-19 breakthrough infection COVID-19 pneumonia Acute renal failure versus acute on chronic renal failure Acute hypoxic respiratory failure Insulin-dependent type 2 diabetes- uncontrolled Elevated troponin Hypertension-controlled Hypothyroidism Protein calorie malnutrition Hypernatremia Plan No indication for HD today HD prescription adjusted to decreased dialysate temp, sodium modeling, higher calcium bath, and PRN albumin to assist with hemodynamic stability during HD Assess need for HD on daily basis S/p Right IJ Vas catheter placement on 06/24/21 Initiated on HD on 06/24/21 Renal US was negative for hydronephrosis Renally dose medications Strict I&O's daily Subjective Date of service: 06/30/21 Principal diagnosis: ARDS; Pneumonia; COVID-19 virus infection; TREMAINE; DM II; Morbid obesity Interval history: remains intubated and sedated Objective - Vital Signs Vital signs: Vital Signs - 12hr 06/30/21 06/30/21 06/30/21 08:00 08:51 09:00 Temperature 99.0 F Pulse Rate 74 121 H 100 H Pulse Rate [ 81 From Monitor] Respiratory 30 H 10 L Rate Blood Pressure 131/52 230/95 225/92 O2 Sat by Pulse 97 94 93 Oximetry 06/30/21 06/30/21 06/30/21 10:00 11:00 12:00 Temperature Pulse Rate 87 95 H 95 H Pulse Rate [ 83 From Monitor] Respiratory 30 H 11 L 29 H Rate Blood Pressure 193/75 205/81 195/81 O2 Sat by Pulse 94 95 96 Oximetry 06/30/21 06/30/21 06/30/21 12:12 13:00 14:00 Temperature Pulse Rate 94 H 86 83 Pulse Rate [ From Monitor] Respiratory 30 H 30 H Rate Blood Pressure 195/81 103/53 116/57 O2 Sat by Pulse 95 94 97 Oximetry 06/30/21 06/30/21 06/30/21 15:00 16:00 16:25 Temperature Pulse Rate 104 H 99 H 104 H Pulse Rate [ 103 H From Monitor] Respiratory 16 17 Rate Blood Pressure 211/79 203/73 201/74 O2 Sat by Pulse 92 92 93 Oximetry 06/30/21 06/30/21 17:00 18:00 Temperature Pulse Rate 108 H 94 H Pulse Rate [ From Monitor] Respiratory 32 H 21 Rate Blood Pressure 158/62 163/63 O2 Sat by Pulse 93 96 Oximetry - Lab 06/30/21 04:30 06/30/21 04:30 Most recent lab results ABG pH 7.269 (7.320-7.450) L 06/30/21 08:59 ABG pCO2 64.0 mm Hg 06/27/21 Unknown ABG pO2 92.0 mm Hg (80.0-90.0) H 06/27/21 Unknown ABG HCO3 26.2 mmol/L (20.0-26.0) H 06/27/21 Unknown ABG O2 Saturation 92.6 (0-100) 06/30/21 08:59 Calcium 8.6 mg/dL (8.4-10.2) 06/30/21 04:30 Phosphorus 6.80 mg/dL (2.5-4.5) H D 06/28/21 04:25 Magnesium 2.30 mg/dL (1.7-2.3) 06/28/21 04:25 Medications & Allergies - Medications Allergies/Adverse Reactions: Allergies latex Allergy (Verified 03/19/19 17:03) Unknown shellfish derived Allergy (Verified 03/19/19 17:03) Anaphylaxis strawberry Allergy (Verified 03/19/19 17:03) Anaphylaxis tomato Allergy (Verified 03/19/19 17:03) Anaphylaxis nuts Allergy (Uncoded 03/19/19 17:03) Anaphylaxis Home Medications: Home Medications Medication Instructions Recorded Confirmed Last Taken Type Albuterol Sulfate [Ventolin HFA] 2 puff IH Q4H PRN 01/29/14 06/11/21 02/01/15 History Levothyroxine (Nf) [Synthroid (Nf)] 275 mcg PO QAM 01/29/14 06/11/21 02/01/15 History Fluticasone/Salmeterol [Advair 1 each IH PRN PRN 01/26/15 06/11/21 02/02/15 10:00 History Diskus 250-50 mcg] Apixaban [Eliquis starter pack] 5 mg PO BID 09/13/19 06/11/21 Unknown History Insulin Aspart Prot/Insuln Asp 45 unit SUB-Q QAM 09/13/19 06/11/21 Unknown History [Novolog Mix 70-30 Flexpen] Insulin Glargine,Hum.rec.anlog 25 unit SQ HS 09/13/19 06/11/21 Unknown History [Basaglar Lenorepen U-100] Lovastatin [Altoprev] 20 mg PO DAILY 09/13/19 06/11/21 Unknown History Docusate Sodium [Colace CAP] 100 mg PO BID PRN #30 capsule 09/17/19 06/11/21 Unknown Rx Loratadine/Pseudoephedrine 1 each PO Q24HR #10 tablet 09/17/19 06/11/21 Unknown Rx [Claritin-D 24HR] Ondansetron [Zofran Odt] 4 mg PO Q8HR #20 tab.rapdis 09/17/19 06/11/21 Unknown Rx carvediloL [Coreg] 3.125 mg PO BID #60 tablet 09/17/19 06/11/21 Unknown Rx hydrALAZINE [Apresoline TAB] 25 mg PO Q8HR #90 tablet 09/17/19 06/11/21 Unknown Rx Active Medications: Generic Name Dose Route Start Last Admin Trade Name Freq PRN Reason Stop Dose Admin Acetaminophen 650 mg 06/07/21 21:41 06/24/21 11:45 Acetaminophen 325 Mg Tab PO 650 mg Q4H PRN Administration Pain MILD(1-3)/Fever >100.5/MARTÍNEZ Albumin Human 25 gm 06/24/21 14:55 06/27/21 17:47 Albumin Human 25% (25 Gm/100 Ml) Inj IV 25 gm KORINA PRN Administration Hypotension Albuterol 2 mg 06/23/21 09:00 Albuterol 2.5 Mg/3 Ml Nebu IH Q4HRT PRN Shortness Of Breath Lipase/Protease/Amylase 1 each 06/28/21 12:15 Lipase 10,500/Protease 25,000/Amylase 43,750 (Units) Dr Barahona FEEDTUBE PRN PRN For Clogged Feeding Tube Ascorbic Acid 500 mg 06/22/21 22:00 06/30/21 09:03 Ascorbic Acid 500 Mg Tab PO 500 mg BID LEONOR Administration Atorvastatin Calcium 10 mg 06/08/21 10:00 06/30/21 09:03 Atorvastatin 10 Mg Tab PO 10 mg DAILY LEONOR Administration Dextrose 50 ml 06/08/21 12:04 06/20/21 12:16 Dextrose 50% In Water (25gm) 50 Ml Syringe IV 50 ml Q30MIN PRN Administration Hypoglycemia Protocol Docusate Sodium 100 mg 06/29/21 22:00 06/30/21 09:03 Docusate Sodium 100 Mg/10 Ml Oral Liqd PO 100 mg BID LEONOR Administration Famotidine 10 mg 06/22/21 22:00 06/30/21 09:03 Famotidine 20 Mg/2 Ml Inj IV 10 mg BID LEONOR Administration Fentanyl 100 mcg 06/28/21 18:03 06/30/21 11:59 Fentanyl 100 Mcg/2 Ml Inj IV 100 mcg Q30MIN PRN Administration ANALGESIA Hydrophilic Ointment 1 applic 06/22/21 13:07 Lip Therapy Vaseline TP Q2HR PRN Dry Lips Fentanyl Citrate 2,000 mcg in 100 mls @ 8.2 mls/hr 06/22/21 14:00 06/30/21 18:20 Fentanyl Drip Premix IV 4 mcg/kg/hr TITR LEONOR 32.8 mls/hr Administration Protocol 1 MCG/KG/HR NORepinephrine/NS 8 MG-250 ML 8 mg in 250 mls @ 3.75 mls/hr 06/22/21 15:00 06/27/21 19:29 Norepinephrine/Ns 8 Mg-250 Ml (Double Conc) IV 0 mcg/min TITRATE LEONOR 0 mls/hr Titration Protocol 2 MCG/MIN Vasopressin 20 unit/ Sodium 101 mls @ 9.09 mls/hr 06/23/21 09:00 06/25/21 16:25 Chloride IV 0 units/min TITR LEONOR 0 mls/hr Titration Protocol 0.03 UNITS/MIN Sodium Chloride 500 mls @ 1 mls/hr 06/23/21 11:19 Nacl 0.9% 500 Ml IV DIRECT PRN ARTERIAL LINE FLUSH Lacosamide 100 mg/ Sodium 110 mls @ 100 mls/hr 06/23/21 15:00 06/30/21 14:56 Chloride IV 100 mls/hr Q12H LEONOR Administration Diltiazem HCl 100 mg in 100 mls @ 7.5 mls/hr 06/28/21 10:15 06/30/21 12:48 Cardizem/D5w 100mg/100ml IV 7.5 mg/hr TITR LEONOR 7.5 mls/hr Titration Protocol 7.5 MG/HR Sodium Chloride 100 mls @ 999 mls/hr 06/28/21 16:00 Nacl 0.9% IV KORINA PRN Hypotension Insulin Human Isoph/Insulin Regular 30 unit 06/29/21 17:00 06/30/21 18:20 Insulin Nph/Regular 70/30 Inj SUB-Q 30 unit BIDDIAB LEONOR Administration Insulin Human Regular 0 units 06/22/21 18:00 06/30/21 18:20 Insulin Regular, Human 100 Units/1 Ml SUB-Q 3 units Q6HR LEONOR Administration Protocol Levothyroxine Sodium 137.5 mcg 06/23/21 06:00 06/30/21 06:06 Levothyroxine 100 Mcg Inj IV 137.5 mcg DAILY@0600 [facility] Administration Methylprednisolone Sodium Succinate 100 mg 06/29/21 18:00 06/30/21 18:20 Methylprednisolone Sod Succinate 125 Mg/2 Ml Inj IV 100 mg Q12H LEONOR Administration Metoclopramide HCl 5 mg 06/29/21 14:00 06/30/21 14:56 Metoclopramide 10 Mg/2 Ml Inj IV 07/01/21 13:59 5 mg Q8HR LEONOR Administration Midazolam HCl 5 mg 06/26/21 16:00 Midazolam 5 Mg/5 Ml Inj Mdv IV 07/06/21 23:59 PRN NR Midodrine 10 mg 06/22/21 15:00 06/30/21 15:20 Midodrine 5 Mg Tab PO Not Given Q8H [facility] Multi-Ingred Cream/Lotion/Oil/Oint 1 applic 06/22/21 13:07 Mineral Oil/Petrolatum, White Ophth Oint 3.5 Gm OU Q4HR PRN Dry Eye(s) Ondansetron HCl 4 mg 06/07/21 21:41 06/20/21 22:15 Ondansetron 4 Mg/2 Ml Inj IV 4 mg Q8H PRN Administration Nausea And Vomiting Polyethylene Glycol 17 gm 06/29/21 18:00 06/30/21 09:03 Polyethylene Glycol 3350 17 Gm Powder PO 17 gm QDAY LEONOR Administration Senna/Docusate Sodium 1 tab 06/22/21 22:00 06/30/21 09:03 Sennosides/Docusate Sodium 8.6/50 Mg Tab FEEDTUBE 1 tab BID LEONOR Administration Simple Syrup 15 ml 06/28/21 12:15 Simple Syrup 15 Ml FEEDTUBE PRN PRN Hypoglycemia Simple Syrup 30 ml 06/28/21 12:15 Simple Syrup 15 Ml FEEDTUBE PRN PRN Hypoglycemia Sodium Bicarbonate 325 mg 06/28/21 12:15 Sodium Bicarbonate 325 Mg Tab FEEDTUBE PRN PRN For Clogged Feeding Tube Sodium Chloride 10 ml 06/07/21 22:00 06/30/21 09:03 Sodium Chloride 0.9% 10 Ml Flush Syringe IV 10 ml BID LEONOR Administration Sodium Chloride 10 ml 06/07/21 21:41 Sodium Chloride 0.9% 10 Ml Flush Syringe IV PRN PRN LINE FLUSH Zinc Sulfate 220 mg 06/22/21 22:00 06/30/21 09:03 Zinc Sulfate 220 Mg Cap PO 220 mg BID LEONOR Administration
[2021-07-01] MEDS: fentaNYL DRIP Premix 2,000 MCG/100 ML BAG IV SCH ×8 (02:05→23:57)
[2021-07-01] MEDS: LACOSAMIDE 100 MG in SODIUM CHLORIDE 0.9% 100 ML IV SCH ×2 (04:24→15:55)
[2021-07-01 05:44] LABS: Hematocrit 23.9 % (30.3-42.9); Hemoglobin 7.8 gm/dl (10.1-14.3); Mean Corpuscular HGB Conc 33 % (30-34); Mean Corpuscular Volume 87 fl (79-97); Red Blood Count 2.75 M/mm3 (3.65-5.03); Red Cell Distribution Width 15.9 % (13.2-15.2)
[2021-07-01 05:57] LABS: Platelet Count 50 K/mm3 (140-440)
[2021-07-01] MEDS: LEVOTHYROXINE 100 MCG INJ IV SCH (06:13)
[2021-07-01] MEDS: METOCLOPRAMIDE 10 MG/2 ML INJ IV SCH (06:13)
[2021-07-01] MEDS: INSULIN REGULAR, HUMAN 100 UNITS/1 ML SUB-Q SCH ×4 (06:14→17:57)
[2021-07-01] MEDS: methylPREDNISolone Sod Succinate 125 MG/2 ML INJ IV SCH ×2 (06:19→18:04)
[2021-07-01] MEDS: MIDODRINE 5 MG TAB PO SCH ×2 (08:20→08:21)
[2021-07-01] MEDS ORDERED: methylPREDNISolone Sod Succinate 40 MG/1 ML INJ IV SCH (10:00)
--- NOTE | 2021-07-01 10:13 | Hem/Onc Progress Note ---
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), and uncontrolled diabetes Noted to have a seizure--now on Keppra Currently intubated due to acute hypoxic respiratory failure Receiving hemodialysis History of multiple DVTs--was on at home Eliquis--converted to Lovenox while inpatient Now with thrombocytopenia Anticoagulants on hold due previous bleeding episode and thrombocytopenia Bilateral extremity u/s negative for DVT DATA REVIEWED BELOW Hgb 7.8 Hct 23.9 MCV 87 WBC 11.3 Plt 50 IMP: Pf4 antibody/HIT testing negative Acute thrombocytopenia --ITP possibly related to covid infection REC/PLAN: AM labs to include CBC daily Transfuse 1 dose of platelets whenever plt count <50 Monitor for bleeding Transfuse 1 unit of PRBC whenever hct<23 Laboratory Last Values WBC 11.3 K/mm3 (4.5-11.0) H 07/01/21 04:00 RBC 2.75 M/mm3 (3.65-5.03) L 07/01/21 04:00 Hgb 7.8 gm/dl (10.1-14.3) L 07/01/21 04:00 Hct 23.9 % (30.3-42.9) L 07/01/21 04:00 MCV 87 fl (79-97) 07/01/21 04:00 MCH 28 pg (28-32) 07/01/21 04:00 MCHC 33 % (30-34) 07/01/21 04:00 RDW 15.9 % (13.2-15.2) H 07/01/21 04:00 Plt Count 50 K/mm3 (140-440) L 07/01/21 04:00 Lymph % (Auto) 7.6 % (13.4-35.0) L 06/28/21 04:25 Ada % (Auto) 5.6 % (0.0-7.3) 06/28/21 04:25 Eos % (Auto) 0.0 % (0.0-4.3) 06/28/21 04:25 Baso % (Auto) 0.1 % (0.0-1.8) 06/28/21 04:25 Lymph # (Auto) 0.9 K/mm3 (1.2-5.4) L 06/28/21 04:25 Ada # (Auto) 0.7 K/mm3 (0.0-0.8) 06/28/21 04:25 Eos # (Auto) 0.0 K/mm3 (0.0-0.4) 06/28/21 04:25 Baso # (Auto) 0.0 K/mm3 (0.0-0.1) 06/28/21 04:25 Add Manual Diff Complete 06/27/21 06:40 Total Counted 100 06/24/21 04:55 Seg Neutrophils % 86.7 % (40.0-70.0) H 06/28/21 04:25 Seg Neuts % (Manual) 68.0 % (40.0-70.0) 06/24/21 04:55 Band Neutrophils % 23.0 % 06/24/21 04:55 Lymphocytes % (Manual) 1.0 % (13.4-35.0) L 06/24/21 04:55 Monocytes % (Manual) 6.0 % (0.0-7.3) 06/23/21 04:42 Eosinophils % (Manual) 2.0 % (0.0-4.3) 06/23/21 04:42 Metamyelocytes % 2.0 % 06/10/21 23:14 Myelocytes % 8.0 % 06/24/21 04:55 Nucleated RBC % Not Reportable 06/27/21 06:40 Seg Neutrophils # 10.0 K/mm3 (1.8-7.7) H 06/28/21 04:25 Seg Neutrophils # Man 12.7 K/mm3 (1.8-7.7) H 06/24/21 04:55 Band Neutrophils # 4.3 K/mm3 06/24/21 04:55 Lymphocytes # (Manual) 0.2 K/mm3 (1.2-5.4) L 06/24/21 04:55 Abs React Lymphs (Man) 0.0 K/mm3 06/24/21 04:55 Monocytes # (Manual) 0.0 K/mm3 (0.0-0.8) 06/24/21 04:55 Eosinophils # (Manual) 0.0 K/mm3 (0.0-0.4) 06/24/21 04:55 Basophils # (Manual) 0.0 K/mm3 (0.0-0.1) 06/24/21 04:55 Metamyelocytes # 0.0 K/mm3 06/24/21 04:55 Myelocytes # 1.5 K/mm3 06/24/21 04:55 Promyelocytes # 0.0 K/mm3 06/24/21 04:55 Blast Cells # 0.0 K/mm3 06/24/21 04:55 WBC Morphology Not Reportable 06/27/21 06:40 Hypersegmented Neuts Not Reportable 06/27/21 06:40 Hyposegmented Neuts Not Reportable 06/27/21 06:40 Hypogranular Neuts Not Reportable 06/27/21 06:40 Smudge Cells Not Reportable 06/27/21 06:40 Toxic Granulation Not Reportable 06/27/21 06:40 Toxic Vacuolation Not Reportable 06/27/21 06:40 Dohle Bodies Not Reportable 06/27/21 06:40 Pelger-Huet Anomaly Not Reportable 06/27/21 06:40 Nba Rods Not Reportable 06/27/21 06:40 Platelet Estimate 30 06/27/21 06:40 Clumped Platelets Not Reportable 06/27/21 06:40 Plt Clumps, EDTA Not Reportable 06/27/21 06:40 Large Platelets 1+ 06/27/21 06:40 Giant Platelets Not Reportable 06/27/21 06:40 Platelet Satelliting Not Reportable 06/27/21 06:40 Plt Morphology Comment Not Reportable 06/27/21 06:40 RBC Morphology Not Reportable 06/27/21 06:40 Dimorphic RBCs Not Reportable 06/27/21 06:40 Polychromasia Not Reportable 06/27/21 06:40 Hypochromasia Not Reportable 06/27/21 06:40 Poikilocytosis Not Reportable 06/27/21 06:40 Anisocytosis Not Reportable 06/27/21 06:40 Microcytosis Not Reportable 06/27/21 06:40 Macrocytosis Not Reportable 06/27/21 06:40 Spherocytes Not Reportable 06/27/21 06:40 Pappenheimer Bodies Not Reportable 06/27/21 06:40 Sickle Cells Not Reportable 06/27/21 06:40 Target Cells Not Reportable 06/27/21 06:40 Tear Drop Cells Not Reportable 06/27/21 06:40 Ovalocytes Not Reportable 06/27/21 06:40 Helmet Cells Not Reportable 06/27/21 06:40 [place] Bodies Not Reportable 06/27/21 06:40 [place] Rings Not Reportable 06/27/21 06:40 Barbie Cells Not Reportable 06/27/21 06:40 Bite Cells Not Reportable 06/27/21 06:40 Crenated Cell Not Reportable 06/27/21 06:40 Elliptocytes 1+ 06/27/21 06:40 Acanthocytes (Spur) Not Reportable 06/27/21 06:40 Rouleaux Not Reportable 06/27/21 06:40 Hemoglobin C Crystals Not Reportable 06/27/21 06:40 Schistocytes Not Reportable 06/27/21 06:40 Malaria parasites Not Reportable 06/27/21 06:40 Luis Bodies Not Reportable 06/27/21 06:40 Hem Pathologist Commnt No 06/27/21 06:40 PT 16.7 Sec. (12.2-14.9) H 06/30/21 04:30 INR 1.22 (0.87-1.13) H 06/30/21 04:30 APTT 27.3 Sec. (24.2-36.6) 06/30/21 04:30 Fibrinogen 316 mg/dl (211-480) 06/30/21 04:30 D-Dimer 1363.54 ng/mlDDU (0-234) H 06/26/21 10:00 Heparin Anti-Xa, Unfract Negative (Negative) 06/25/21 17:55 ABG pH 7.269 (7.320-7.450) L 06/30/21 08:59 POC ABG pCO2 58.5 mmHg (32.0-48.0) H 06/30/21 08:59 ABG pCO2 64.0 mm Hg 06/27/21 Unknown POC ABG pO2 70.1 mmHg (83-108) L 06/30/21 08:59 ABG pO2 92.0 mm Hg (80.0-90.0) H 06/27/21 Unknown POC ABG HCO3 26.3 06/30/21 08:59 ABG HCO3 26.2 mmol/L (20.0-26.0) H 06/27/21 Unknown ABG O2 Saturation 92.6 (0-100) 06/30/21 08:59 ABG O2 Content 11.1 (0.0-44) 06/27/21 Unknown POC ABG Base Excess -1.3 06/30/21 08:59 ABG Base Excess -1.7 mmol/L (-2.0-3.0) 06/27/21 Unknown ABG Hemoglobin 10.1 (12.0-17.5) L 06/30/21 08:59 ABG Oxyhemoglobin 91.3 (94-98) L 06/30/21 08:59 ABG Carboxyhemoglobin 1.7 % (0.0-5.0) 06/27/21 Unknown ABG Methemoglobin 0.3 (0.0-1.5) 06/30/21 08:59 ABG Sodium 132.0 mmol/L (136.0-145.0) L 06/30/21 08:59 ABG Potassium 4.8 mmol/L (3.40-4.50) H 06/30/21 08:59 ABG Chloride 95.0 mmol/L (98-107) L 06/30/21 08:59 ABG Glucose 172 mg/dL (65-95) H 06/30/21 08:59 Oxyhemoglobin 94.6 % (95.0-99.0) L 06/27/21 Unknown Carboxyhemoglobin 1.1 (0.5-1.5) 06/30/21 08:59 FiO2 75 % 06/27/21 Unknown FiO2 % 90.0 06/30/21 08:59 Sodium 136 mmol/L (137-145) L 07/01/21 04:00 Potassium 5.2 mmol/L (3.6-5.0) H 07/01/21 04:00 Chloride 95.2 mmol/L (98-107) L 07/01/21 04:00 Carbon Dioxide 23 mmol/L (22-30) 07/01/21 04:00 Anion Gap 23 mmol/L 07/01/21 04:00 BUN 105 mg/dL (7-17) H 07/01/21 04:00 Creatinine 4.7 mg/dL (0.6-1.2) H 07/01/21 04:00 Estimated GFR 11 ml/min 07/01/21 04:00 BUN/Creatinine Ratio 22 % 07/01/21 04:00 Glucose 178 mg/dL (65-100) H 07/01/21 04:00 POC Glucose 173 mg/dL (70-105) H 07/01/21 05:15 Hemoglobin A1c 9.5 % (4-6) H 06/07/21 19:11 Calcium 8.0 mg/dL (8.4-10.2) L 07/01/21 04:00 Phosphorus 6.80 mg/dL (2.5-4.5) H D 06/28/21 04:25 Magnesium 2.30 mg/dL (1.7-2.3) 06/28/21 04:25 Ferritin 1094.0 ng/mL (10.0-200.0) H 06/23/21 Unknown Total Bilirubin 0.50 mg/dL (0.1-1.2) 06/29/21 04:34 AST 22 units/L (5-40) 06/29/21 04:34 ALT 23 units/L (7-56) 06/29/21 04:34 Alkaline Phosphatase 132 units/L (35-129) H 06/29/21 04:34 Lactate Dehydrogenase 606 units/L (91-180) H 06/10/21 23:14 Troponin T 0.021 ng/mL (0.00-0.029) 06/08/21 13:49 C-Reactive Protein 4.40 mg/dL (0.00-1.30) H 06/23/21 04:42 Serum Total Protein 7.0 g/dL (6.1-8.1) 06/10/21 23:14 Total Protein 6.0 g/dL (6.3-8.2) L 06/29/21 04:34 Albumin 3.3 g/dL (3.9-5) L 06/29/21 04:34 Albumin/Globulin Ratio 1.2 % 06/29/21 04:34 Wfjqa-5-Cqujodutj 0.5 g/dL (0.2-0.3) H 06/10/21 23:14 Yosvz-7-Ssmxnytbs 1.7 g/dL (0.5-0.9) H 06/10/21 23:14 Beta Globulins 0.6 g/dL (0.2-0.5) H 06/10/21 23:14 Gamma Globulins 1.3 g/dL (0.8-1.7) 06/10/21 23:14 Abnorm Protein Band 1 see below 06/10/21 23:14 PEP Interpretation see below H 06/10/21 23:14 Triglycerides 209 mg/dL (2-149) H 06/07/21 19:11 Cholesterol 165 mg/dL (50-199) 06/07/21 19:11 LDL Cholesterol Direct 79 mg/dL (50-130) 06/07/21 19:11 HDL Cholesterol 35 mg/dL (40-59) L 06/07/21 19:11 Cholesterol/HDL Ratio 4.71 % 06/07/21 19:11 Procalcitonin 0.91 ng/mL (<0.15) 06/07/21 19:11 TSH 0.109 mlU/mL (0.270-4.200) L 06/30/21 Unknown Arterial Blood Glucose 172 mg/dL (65-95) H 06/30/21 08:59 Arterial Blood Ionized Calcium 4.4 mg/dL (4.6-5.3) L 06/27/21 16:30 Urine Color Sole (Yellow) 06/23/21 17:40 Urine Turbidity Cloudy (Clear) 06/23/21 17:40 Urine pH 6.0 (5.0-7.0) 06/23/21 17:40 Ur Specific [place] 1.017 (1.003-1.030) 06/23/21 17:40 Urine Protein >500 mg/dL (Negative) 06/23/21 17:40 Urine Glucose (UA) 50 mg/dL (Negative) 06/23/21 17:40 Urine Ketones Neg mg/dL (Negative) 06/23/21 17:40 Urine Blood Lg (Negative) 06/23/21 17:40 Urine Nitrite Neg (Negative) 06/23/21 17:40 Urine Bilirubin Neg (Negative) 06/23/21 17:40 Urine Urobilinogen < 2.0 mg/dL (<2.0) 06/23/21 17:40 Ur Leukocyte Esterase Mod (Negative) 06/23/21 17:40 Urine WBC (Auto) > 182.0 /HPF (0.0-6.0) H 06/23/21 17:40 Urine RBC (Auto) > 182.0 /HPF (0.0-6.0) 06/23/21 17:40 Urine WBC Clumps 3+ /HPF 06/23/21 17:40 Uric Acid Crystals 1+ 06/23/21 17:40 Urine Mucus Few /HPF 06/23/21 17:40 Random Vancomycin 13.8 ug/mL (0-40.0) 06/26/21 07:00 Heparin-induced Plt Ab Negative (Negative) 06/25/21 17:55 UF Heparin High Dose 0 % Release 06/25/21 17:55 BESS UFH Low Dose 0.1 0 % Release 06/25/21 17:55 BESS UFH Low Dose 0.5 0 % Release 06/25/21 17:55 Coronavirus (PCR) Positive (Negative) A 06/08/21 08:30 Hepatitis A IgM Ab Non-reactive (NonReactive) 06/24/21 15:57 Hep Bs Antigen Nonreactive (Negative) 06/24/21 15:57 Hep B Core IgM Ab Non-reactive (NonReactive) 06/24/21 15:57 Hepatitis C Antibody Non-reactive (NonReactive) 06/24/21 15:57 Blood Type B POSITIVE 06/27/21 12:12 Antibody Screen Negative 06/27/21 12:12 Objective - Constitutional Vitals: Last Vital Signs Temp 98.2 F 07/01/21 07:28 Pulse 108 H 07/01/21 02:00 Resp 17 07/01/21 02:00 BP 215/88 07/01/21 02:00 Pulse Ox 95 07/01/21 02:00 - Labs Lab Results: Laboratory Results - last 24 hr 06/30/21 06/30/21 06/30/21 08:59 11:24 18:02 WBC RBC Hgb Hct MCV MCH MCHC RDW Plt Count ABG pH 7.269 L POC ABG pCO2 58.5 H POC ABG pO2 70.1 L POC ABG HCO3 26.3 ABG O2 Saturation 92.6 POC ABG Base Excess -1.3 ABG Hemoglobin 10.1 L ABG Oxyhemoglobin 91.3 L ABG Methemoglobin 0.3 ABG Sodium 132.0 L ABG Potassium 4.8 H ABG Chloride 95.0 L ABG Glucose 172 H Carboxyhemoglobin 1.1 FiO2 % 90.0 Sodium Potassium Chloride Carbon Dioxide Anion Gap BUN Creatinine Estimated GFR BUN/Creatinine Ratio Glucose POC Glucose 163 H 156 H Calcium TSH Arterial Blood Glucose 172 H 06/30/21 06/30/21 07/01/21 22:37 Unknown 04:00 WBC 11.3 H RBC 2.75 L Hgb 7.8 L Hct 23.9 L MCV 87 MCH 28 MCHC 33 RDW 15.9 H Plt Count 50 L ABG pH POC ABG pCO2 POC ABG pO2 POC ABG HCO3 ABG O2 Saturation POC ABG Base Excess ABG Hemoglobin ABG Oxyhemoglobin ABG Methemoglobin ABG Sodium ABG Potassium ABG Chloride ABG Glucose Carboxyhemoglobin FiO2 % Sodium Potassium Chloride Carbon Dioxide Anion Gap BUN Creatinine Estimated GFR BUN/Creatinine Ratio Glucose POC Glucose 159 H Calcium TSH 0.109 L Arterial Blood Glucose 07/01/21 07/01/21 04:00 05:15 WBC RBC Hgb Hct MCV MCH MCHC RDW Plt Count ABG pH POC ABG pCO2 POC ABG pO2 POC ABG HCO3 ABG O2 Saturation POC ABG Base Excess ABG Hemoglobin ABG Oxyhemoglobin ABG Methemoglobin ABG Sodium ABG Potassium ABG Chloride ABG Glucose Carboxyhemoglobin FiO2 % Sodium 136 L Potassium 5.2 H Chloride 95.2 L Carbon Dioxide 23 Anion Gap 23 BUN 105 H Creatinine 4.7 H Estimated GFR 11 BUN/Creatinine Ratio 22 Glucose 178 H POC Glucose 173 H Calcium 8.0 L TSH Arterial Blood Glucose Medications & Allergies - Medications Allergies/Adverse Reactions: Allergies latex Allergy (Verified 03/19/19 17:03) Unknown shellfish derived Allergy (Verified 03/19/19 17:03) Anaphylaxis strawberry Allergy (Verified 03/19/19 17:03) Anaphylaxis tomato Allergy (Verified 03/19/19 17:03) Anaphylaxis nuts Allergy (Uncoded 03/19/19 17:03) Anaphylaxis Home Medications: Home Medications Medication Instructions Recorded Confirmed Last Taken Type Albuterol Sulfate [Ventolin HFA] 2 puff IH Q4H PRN 01/29/14 06/11/21 02/01/15 History Levothyroxine (Nf) [Synthroid (Nf)] 275 mcg PO QAM 01/29/14 06/11/21 02/01/15 History Fluticasone/Salmeterol [Advair 1 each IH PRN PRN 01/26/15 06/11/21 02/02/15 10:00 History Diskus 250-50 mcg] Apixaban [Eliquis starter pack] 5 mg PO BID 09/13/19 06/11/21 Unknown History Insulin Aspart Prot/Insuln Asp 45 unit SUB-Q QAM 09/13/19 06/11/21 Unknown History [Novolog Mix 70-30 Flexpen] Insulin Glargine,Hum.rec.anlog 25 unit SQ HS 09/13/19 06/11/21 Unknown History [Basaglar Kwikpen U-100] Lovastatin [Altoprev] 20 mg PO DAILY 09/13/19 06/11/21 Unknown History Docusate Sodium [Colace CAP] 100 mg PO BID PRN #30 capsule 09/17/19 06/11/21 Unknown Rx Loratadine/Pseudoephedrine 1 each PO Q24HR #10 tablet 09/17/19 06/11/21 Unknown Rx [Claritin-D 24HR] Ondansetron [Zofran Odt] 4 mg PO Q8HR #20 tab.rapdis 09/17/19 06/11/21 Unknown Rx carvediloL [Coreg] 3.125 mg PO BID #60 tablet 09/17/19 06/11/21 Unknown Rx hydrALAZINE [Apresoline TAB] 25 mg PO Q8HR #90 tablet 09/17/19 06/11/21 Unknown Rx Active Medications: Generic Name Dose Route Start Last Admin Trade Name Freq PRN Reason Stop Dose Admin Acetaminophen 650 mg 06/07/21 21:41 06/24/21 11:45 Acetaminophen 325 Mg Tab PO 650 mg Q4H PRN Administration Pain MILD(1-3)/Fever >100.5/MARTÍNEZ Albumin Human 25 gm 06/24/21 14:55 06/27/21 17:47 Albumin Human 25% (25 Gm/100 Ml) Inj IV 25 gm KORINA PRN Administration Hypotension Albuterol 2 mg 06/23/21 09:00 Albuterol 2.5 Mg/3 Ml Nebu IH Q4HRT PRN Shortness Of Breath Lipase/Protease/Amylase 1 each 06/28/21 12:15 Lipase 10,500/Protease 25,000/Amylase 43,750 (Units) Dr Cap FEEDTUBE PRN PRN For Clogged Feeding Tube Ascorbic Acid 500 mg 06/22/21 22:00 06/30/21 22:05 Ascorbic Acid 500 Mg Tab PO 500 mg BID LEONOR Administration Atorvastatin Calcium 10 mg 06/08/21 10:00 06/30/21 09:03 Atorvastatin 10 Mg Tab PO 10 mg DAILY LEONOR Administration Bisacodyl 10 mg 07/01/21 09:30 Bisacodyl 10 Mg Rect Supp WI 07/01/21 14:00 ONCE LEONOR Bisacodyl 10 mg 07/02/21 10:00 Bisacodyl 10 Mg Rect Supp WI QDAY PRN Constipation Dextrose 50 ml 06/08/21 12:04 06/20/21 12:16 Dextrose 50% In Water (25gm) 50 Ml Syringe IV 50 ml Q30MIN PRN Administration Hypoglycemia Protocol Docusate Sodium 100 mg 06/29/21 22:00 06/30/21 22:06 Docusate Sodium 100 Mg/10 Ml Oral Liqd PO 100 mg BID LEONOR Administration Famotidine 10 mg 07/01/21 10:00 Famotidine 10 Mg Tab FEEDTUBE BID LEONOR Fentanyl 100 mcg 06/28/21 18:03 06/30/21 11:59 Fentanyl 100 Mcg/2 Ml Inj IV 100 mcg Q30MIN PRN Administration ANALGESIA Hydrophilic Ointment 1 applic 06/22/21 13:07 Lip Therapy Vaseline TP Q2HR PRN Dry Lips Fentanyl Citrate 2,000 mcg in 100 mls @ 8.2 mls/hr 06/22/21 14:00 07/01/21 08:19 Fentanyl Drip Premix IV 4 mcg/kg/hr TITR LEONOR 32.8 mls/hr Administration Protocol 1 MCG/KG/HR NORepinephrine/NS 8 MG-250 ML 8 mg in 250 mls @ 3.75 mls/hr 06/22/21 15:00 06/27/21 19:29 Norepinephrine/Ns 8 Mg-250 Ml (Double Conc) IV 0 mcg/min TITRATE LEONOR 0 mls/hr Titration Protocol 2 MCG/MIN Vasopressin 20 unit/ Sodium 101 mls @ 9.09 mls/hr 06/23/21 09:00 06/25/21 16:25 Chloride IV 0 units/min TITR LEONOR 0 mls/hr Titration Protocol 0.03 UNITS/MIN Sodium Chloride 500 mls @ 1 mls/hr 06/23/21 11:19 Nacl 0.9% 500 Ml IV DIRECT PRN ARTERIAL LINE FLUSH Lacosamide 100 mg/ Sodium 110 mls @ 100 mls/hr 06/23/21 15:00 07/01/21 04:24 Chloride IV 100 mls/hr Q12H LEONOR Administration Diltiazem HCl 100 mg in 100 mls @ 7.5 mls/hr 06/28/21 10:15 07/01/21 08:18 Cardizem/D5w 100mg/100ml IV 10 mg/hr TITR LEONOR 10 mls/hr Titration Protocol 7.5 MG/HR Sodium Chloride 100 mls @ 999 mls/hr 06/28/21 16:00 Nacl 0.9% IV KORINA PRN Hypotension Insulin Human Isoph/Insulin Regular 30 unit 06/29/21 17:00 06/30/21 18:20 Insulin Nph/Regular 70/30 Inj SUB-Q 30 unit BIDDIAB LEONOR Administration Insulin Human Regular 0 units 06/22/21 18:00 07/01/21 06:15 Insulin Regular, Human 100 Units/1 Ml SUB-Q 3 units Q6HR LEONOR Administration Protocol Levothyroxine Sodium 137.5 mcg 06/23/21 06:00 07/01/21 06:13 Levothyroxine 100 Mcg Inj IV 137.5 mcg DAILY@0600 LEONOR Administration Methylprednisolone Sodium Succinate 100 mg 06/29/21 18:00 07/01/21 06:19 Methylprednisolone Sod Succinate 125 Mg/2 Ml Inj IV 100 mg Q12H LEONOR Administration Metoclopramide HCl 5 mg 06/29/21 14:00 07/01/21 06:13 Metoclopramide 10 Mg/2 Ml Inj IV 07/01/21 13:59 5 mg Q8HR LEONOR Administration Midazolam HCl 5 mg 06/26/21 16:00 Midazolam 5 Mg/5 Ml Inj Mdv IV 07/06/21 23:59 PRN NR Midodrine 10 mg 06/22/21 15:00 07/01/21 08:21 Midodrine 5 Mg Tab PO Not Given Q8H [facility] Multi-Ingred Cream/Lotion/Oil/Oint 1 applic 06/22/21 13:07 Mineral Oil/Petrolatum, White Ophth Oint 3.5 Gm OU Q4HR PRN Dry Eye(s) Ondansetron HCl 4 mg 06/07/21 21:41 06/20/21 22:15 Ondansetron 4 Mg/2 Ml Inj IV 4 mg Q8H PRN Administration Nausea And Vomiting Polyethylene Glycol 17 gm 06/29/21 18:00 06/30/21 09:03 Polyethylene Glycol 3350 17 Gm Powder PO 17 gm QDAY LEONOR Administration Senna/Docusate Sodium 1 tab 06/22/21 22:00 06/30/21 22:06 Sennosides/Docusate Sodium 8.6/50 Mg Tab FEEDTUBE 1 tab BID LEONOR Administration Simple Syrup 15 ml 06/28/21 12:15 Simple Syrup 15 Ml FEEDTUBE PRN PRN Hypoglycemia Simple Syrup 30 ml 06/28/21 12:15 Simple Syrup 15 Ml FEEDTUBE PRN PRN Hypoglycemia Sodium Bicarbonate 325 mg 06/28/21 12:15 Sodium Bicarbonate 325 Mg Tab FEEDTUBE PRN PRN For Clogged Feeding Tube Sodium Chloride 10 ml 06/07/21 22:00 07/01/21 06:17 Sodium Chloride 0.9% 10 Ml Flush Syringe IV 10 ml BID LEONOR Administration Sodium Chloride 10 ml 06/07/21 21:41 Sodium Chloride 0.9% 10 Ml Flush Syringe IV PRN PRN LINE FLUSH Zinc Sulfate 220 mg 06/22/21 22:00 06/30/21 22:06 Zinc Sulfate 220 Mg Cap PO 220 mg BID LEONOR Administration
--- NOTE | 2021-07-01 10:36 | Progress Note ---
Assessment and Plan COVID-19 breakthrough infection COVID-19 pneumonia Acute renal failure versus acute on chronic renal failure Acute hypoxic respiratory failure Insulin-dependent type 2 diabetes- uncontrolled Elevated troponin Hypertension-controlled Hypothyroidism Protein calorie malnutrition Hypernatremia Plan HD today for clearance and gentle volume removal HD prescription adjusted to decreased dialysate temp, sodium modeling, higher calcium bath, and PRN albumin to assist with hemodynamic stability during HD Assess need for HD on daily basis S/p Right IJ Vas catheter placement on 06/24/21 Initiated on HD on 06/24/21 Renal US was negative for hydronephrosis Renally dose medications Strict I&O's daily Subjective Date of service: 07/01/21 Principal diagnosis: ARDS; Pneumonia; COVID-19 virus infection; TREMAINE; DM II; Morbid obesity Objective - Vital Signs Vital signs: Vital Signs - 12hr 06/30/21 07/01/21 07/01/21 23:00 00:00 01:00 Temperature 99.8 F H Pulse Rate 97 H 111 H 89 Pulse Rate [ 102 H From Monitor] Respiratory 25 H 30 H 30 H Rate Blood Pressure 151/64 201/89 155/62 O2 Sat by Pulse 96 94 96 Oximetry 07/01/21 07/01/21 07/01/21 02:00 03:00 03:36 Temperature 99.7 F H Pulse Rate 108 H 114 H Pulse Rate [ From Monitor] Respiratory 17 30 H Rate Blood Pressure 215/88 187/70 O2 Sat by Pulse 95 97 Oximetry 07/01/21 07/01/21 07/01/21 04:00 05:00 06:00 Temperature Pulse Rate 105 H 86 104 H Pulse Rate [ From Monitor] Respiratory 14 30 H 16 Rate Blood Pressure 220/81 125/50 204/82 O2 Sat by Pulse 96 98 97 Oximetry 07/01/21 07/01/21 07/01/21 07:00 07:28 08:00 Temperature 98.2 F Pulse Rate 89 101 H Pulse Rate [ From Monitor] Respiratory 30 H 14 Rate Blood Pressure 191/68 210/86 O2 Sat by Pulse 96 94 Oximetry 07/01/21 07/01/21 09:00 10:00 Temperature Pulse Rate 82 89 Pulse Rate [ From Monitor] Respiratory 30 H 30 H Rate Blood Pressure 131/53 171/67 O2 Sat by Pulse 96 95 Oximetry - Lab 07/01/21 04:00 07/01/21 04:00 Most recent lab results ABG pH 7.269 (7.320-7.450) L 06/30/21 08:59 ABG pCO2 64.0 mm Hg 06/27/21 Unknown ABG pO2 92.0 mm Hg (80.0-90.0) H 06/27/21 Unknown ABG HCO3 26.2 mmol/L (20.0-26.0) H 06/27/21 Unknown ABG O2 Saturation 92.6 (0-100) 06/30/21 08:59 Calcium 8.0 mg/dL (8.4-10.2) L 07/01/21 04:00 Phosphorus 6.80 mg/dL (2.5-4.5) H D 06/28/21 04:25 Magnesium 2.30 mg/dL (1.7-2.3) 06/28/21 04:25 Medications & Allergies - Medications Allergies/Adverse Reactions: Allergies latex Allergy (Verified 03/19/19 17:03) Unknown shellfish derived Allergy (Verified 03/19/19 17:03) Anaphylaxis strawberry Allergy (Verified 03/19/19 17:03) Anaphylaxis tomato Allergy (Verified 03/19/19 17:03) Anaphylaxis nuts Allergy (Uncoded 03/19/19 17:03) Anaphylaxis Home Medications: Home Medications Medication Instructions Recorded Confirmed Last Taken Type Albuterol Sulfate [Ventolin HFA] 2 puff IH Q4H PRN 01/29/14 06/11/21 02/01/15 History Levothyroxine (Nf) [Synthroid (Nf)] 275 mcg PO QAM 01/29/14 06/11/21 02/01/15 History Fluticasone/Salmeterol [Advair 1 each IH PRN PRN 01/26/15 06/11/21 02/02/15 10:00 History Diskus 250-50 mcg] Apixaban [Eliquis starter pack] 5 mg PO BID 09/13/19 06/11/21 Unknown History Insulin Aspart Prot/Insuln Asp 45 unit SUB-Q QAM 09/13/19 06/11/21 Unknown History [Novolog Mix 70-30 Flexpen] Insulin Glargine,Hum.rec.anlog 25 unit SQ HS 09/13/19 06/11/21 Unknown History [Basaglar Kwikpen U-100] Lovastatin [Altoprev] 20 mg PO DAILY 09/13/19 06/11/21 Unknown History Docusate Sodium [Colace CAP] 100 mg PO BID PRN #30 capsule 09/17/19 06/11/21 Unknown Rx Loratadine/Pseudoephedrine 1 each PO Q24HR #10 tablet 09/17/19 06/11/21 Unknown Rx [Claritin-D 24HR] Ondansetron [Zofran Odt] 4 mg PO Q8HR #20 tab.rapdis 09/17/19 06/11/21 Unknown Rx carvediloL [Coreg] 3.125 mg PO BID #60 tablet 09/17/19 06/11/21 Unknown Rx hydrALAZINE [Apresoline TAB] 25 mg PO Q8HR #90 tablet 09/17/19 06/11/21 Unknown Rx Active Medications: Generic Name Dose Route Start Last Admin Trade Name Freq PRN Reason Stop Dose Admin Acetaminophen 650 mg 06/07/21 21:41 06/24/21 11:45 Acetaminophen 325 Mg Tab PO 650 mg Q4H PRN Administration Pain MILD(1-3)/Fever >100.5/MARTÍNEZ Albumin Human 25 gm 06/24/21 14:55 06/27/21 17:47 Albumin Human 25% (25 Gm/100 Ml) Inj IV 25 gm KORINA PRN Administration Hypotension Albuterol 2 mg 06/23/21 09:00 Albuterol 2.5 Mg/3 Ml Nebu IH Q4HRT PRN Shortness Of Breath Lipase/Protease/Amylase 1 each 06/28/21 12:15 Lipase 10,500/Protease 25,000/Amylase 43,750 (Units) Dr Barahona FEEDTUBE PRN PRN For Clogged Feeding Tube Ascorbic Acid 500 mg 06/22/21 22:00 06/30/21 22:05 Ascorbic Acid 500 Mg Tab PO 500 mg BID LEONOR Administration Atorvastatin Calcium 10 mg 06/08/21 10:00 06/30/21 09:03 Atorvastatin 10 Mg Tab PO 10 mg DAILY LEONOR Administration Bisacodyl 10 mg 07/01/21 09:30 Bisacodyl 10 Mg Rect Supp VA 07/01/21 14:00 ONCE LEONOR Bisacodyl 10 mg 07/02/21 10:00 Bisacodyl 10 Mg Rect Supp VA QDAY PRN Constipation Dextrose 50 ml 06/08/21 12:04 06/20/21 12:16 Dextrose 50% In Water (25gm) 50 Ml Syringe IV 50 ml Q30MIN PRN Administration Hypoglycemia Protocol Docusate Sodium 100 mg 06/29/21 22:00 06/30/21 22:06 Docusate Sodium 100 Mg/10 Ml Oral Liqd PO 100 mg BID LEONOR Administration Famotidine 10 mg 07/01/21 10:00 Famotidine 10 Mg Tab FEEDTUBE BID LEONOR Fentanyl 100 mcg 06/28/21 18:03 06/30/21 11:59 Fentanyl 100 Mcg/2 Ml Inj IV 100 mcg Q30MIN PRN Administration ANALGESIA Hydrophilic Ointment 1 applic 06/22/21 13:07 Lip Therapy Vaseline TP Q2HR PRN Dry Lips Fentanyl Citrate 2,000 mcg in 100 mls @ 8.2 mls/hr 06/22/21 14:00 07/01/21 08:19 Fentanyl Drip Premix IV 4 mcg/kg/hr TITR LEONOR 32.8 mls/hr Administration Protocol 1 MCG/KG/HR NORepinephrine/NS 8 MG-250 ML 8 mg in 250 mls @ 3.75 mls/hr 06/22/21 15:00 06/27/21 19:29 Norepinephrine/Ns 8 Mg-250 Ml (Double Conc) IV 0 mcg/min TITRATE LEONOR 0 mls/hr Titration Protocol 2 MCG/MIN Vasopressin 20 unit/ Sodium 101 mls @ 9.09 mls/hr 06/23/21 09:00 06/25/21 16:25 Chloride IV 0 units/min TITR LEONOR 0 mls/hr Titration Protocol 0.03 UNITS/MIN Sodium Chloride 500 mls @ 1 mls/hr 06/23/21 11:19 Nacl 0.9% 500 Ml IV DIRECT PRN ARTERIAL LINE FLUSH Lacosamide 100 mg/ Sodium 110 mls @ 100 mls/hr 06/23/21 15:00 07/01/21 04:24 Chloride IV 100 mls/hr Q12H LEONOR Administration Diltiazem HCl 100 mg in 100 mls @ 7.5 mls/hr 06/28/21 10:15 07/01/21 08:18 Cardizem/D5w 100mg/100ml IV 10 mg/hr TITR LEONOR 10 mls/hr Titration Protocol 7.5 MG/HR Sodium Chloride 100 mls @ 999 mls/hr 06/28/21 16:00 Nacl 0.9% IV KORINA PRN Hypotension Insulin Human Isoph/Insulin Regular 30 unit 06/29/21 17:00 06/30/21 18:20 Insulin Nph/Regular 70/30 Inj SUB-Q 30 unit BIDDIAB LEONOR Administration Insulin Human Regular 0 units 06/22/21 18:00 07/01/21 06:15 Insulin Regular, Human 100 Units/1 Ml SUB-Q 3 units Q6HR LEONOR Administration Protocol Levothyroxine Sodium 137.5 mcg 06/23/21 06:00 07/01/21 06:13 Levothyroxine 100 Mcg Inj IV 137.5 mcg DAILY@0600 [facility] Administration Methylprednisolone Sodium Succinate 100 mg 06/29/21 18:00 07/01/21 06:19 Methylprednisolone Sod Succinate 125 Mg/2 Ml Inj IV 100 mg Q12H LEONOR Administration Metoclopramide HCl 5 mg 06/29/21 14:00 07/01/21 06:13 Metoclopramide 10 Mg/2 Ml Inj IV 07/01/21 13:59 5 mg Q8HR LEONOR Administration Midazolam HCl 5 mg 06/26/21 16:00 Midazolam 5 Mg/5 Ml Inj Mdv IV 07/06/21 23:59 PRN NR Midodrine 10 mg 06/22/21 15:00 07/01/21 08:21 Midodrine 5 Mg Tab PO Not Given Q8H [facility] Multi-Ingred Cream/Lotion/Oil/Oint 1 applic 06/22/21 13:07 Mineral Oil/Petrolatum, White Ophth Oint 3.5 Gm OU Q4HR PRN Dry Eye(s) Ondansetron HCl 4 mg 06/07/21 21:41 06/20/21 22:15 Ondansetron 4 Mg/2 Ml Inj IV 4 mg Q8H PRN Administration Nausea And Vomiting Polyethylene Glycol 17 gm 06/29/21 18:00 06/30/21 09:03 Polyethylene Glycol 3350 17 Gm Powder PO 17 gm QDAY LEONOR Administration Senna/Docusate Sodium 1 tab 06/22/21 22:00 06/30/21 22:06 Sennosides/Docusate Sodium 8.6/50 Mg Tab FEEDTUBE 1 tab BID LEONOR Administration Simple Syrup 15 ml 06/28/21 12:15 Simple Syrup 15 Ml FEEDTUBE PRN PRN Hypoglycemia Simple Syrup 30 ml 06/28/21 12:15 Simple Syrup 15 Ml FEEDTUBE PRN PRN Hypoglycemia Sodium Bicarbonate 325 mg 06/28/21 12:15 Sodium Bicarbonate 325 Mg Tab FEEDTUBE PRN PRN For Clogged Feeding Tube Sodium Chloride 10 ml 06/07/21 22:00 07/01/21 06:17 Sodium Chloride 0.9% 10 Ml Flush Syringe IV 10 ml BID LEONOR Administration Sodium Chloride 10 ml 06/07/21 21:41 Sodium Chloride 0.9% 10 Ml Flush Syringe IV PRN PRN LINE FLUSH Zinc Sulfate 220 mg 06/22/21 22:00 06/30/21 22:06 Zinc Sulfate 220 Mg Cap PO 220 mg BID LEONOR Administration
[2021-07-01] MEDS: INSULIN NPH/REGULAR 70/30 INJ SUB-Q SCH ×2 (10:54→17:57)
[2021-07-01] MEDS: POLYETHYLENE GLYCOL 3350 17 GM POWDER PO SCH (10:54)
[2021-07-01] MEDS: FAMOTIDINE 10 MG TAB FEEDTUBE SCH ×2 (10:55→22:32)
[2021-07-01] MEDS: ZINC SULFATE 220 MG CAP PO SCH ×2 (10:55→22:33)
[2021-07-01] MEDS: DOCUSATE SODIUM 100 MG/10 ML ORAL LIQD PO SCH ×2 (10:55→22:31)
[2021-07-01] MEDS: ASCORBIC ACID 500 MG TAB PO SCH ×2 (10:55→22:32)
[2021-07-01] MEDS: SENNOSIDES/DOCUSATE SODIUM 8.6/50 MG TAB FEEDTUBE SCH ×2 (10:55→22:32)
--- NOTE | 2021-07-01 11:03 | Progress Note ---
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 Hospital Course to Date: 06/27/21- Patient remains intubated and sedated on fent gtt, RASS -2 to -3, not following any commands. Afib with RVR overnight was started on amio gtt, no BM for over 7days, bowel regimen was adjusted and reglan was added. Remains on high dose steroids, will start weaning steroids to twice a day starting tomorrow. Electrolytes imbalance noted with worsening in renal function, plan for HD today. 1jumbo of plt ordered for worsening throbocytopenia. Continue t o monitor electrolytes and renal function, am labs ordered. 06/28/21- Patient status is unchanged, remains on the vent and on low dose fentanyl. Plt still less than 50 s/p 1unit of plt, ddtional 1 unit of plt ordered. Afib with RVR this am, d/w cardio plan to switch amio gtt to cardizem gtt for rate control. Patient remains hyperglycemic adjustment made to basal insulin. will continue to monitor, am labs ordered 06/29/21- Patient status is unchanged, on the vent and on fentanyl gtt, arousable but does not follow commands with +gag and cough. Remains of the cardizem gtt for rate control, off pressors. Platelet 45 this am, 1unit of platelets orderd. Plan for HD today per Nephro. Continue to monitor renal f unction and electrolytes. 06/30/21- Patient remains intubated on fentynal gtt RASS 0 to -1. on cardizem gtt for rate control, more control this morning, HR 90 to low 100s. Patient is still with high gastric residual but no vomiting, continue enteral nutrition and follow facility protocol. Still no BM, will add supp PRN, continue reglan IV. Plt improved to 72 this am, no need for transfusion however will continue to hold AC at this time. 07/01/21- Patient is intubated and on the vent on MAX fentanyl, RASS 0 to -1. Open eyes spontaneously but does not follow any commands. Remains on cardizem gtt per Cardio, ST on monitor this am with hypertension. Will d/w Cardio for further recs for BP and rate control. Midodrine has been on hold due to high BP. Plan for HD today per Nephro. Still no BM, suppositoy scheduled, no vomiting reported, patient with hypoactive bowel sounds. Continue IV reglan and BR. Plan to taper off steroids Assessment and Plan #Neuro: Seizure, acute metabolic encephalopathy -Witnessed seizure (06/23/2021) -06/26 CT head with no acute findings -EEG report pending -Continue Vimpat 100 mg twice daily in the setting of worsening renal function -Neurology consulted, appreciate recommendations -Aspiration/seizure precautions -Sedated with fentanyl for RASS goal of 0 to -1 #Cardio: Atrial Fibrilation #Hypotension #H/o CAD -Afib RVR 110 to 120 -amio gtt D/C, Per Cardio plan to transition to cardizem gtt for rate control -Off pressors this morning -Vasopressor support as needed for MAP goal >65 -Hold antihypertensive at this time in the setting of hypotension -Continue home statin -Continue midodrine -AC on hold due to bleed and low plt #Respiratory: Acute hypoxic respiratory failure, ARDS 2/2 COVID 19 PNA -06/22 intubated with 7.50 ETT at 23 at the lips -Vent setting: A/C 90%,14,30,450 -Remain acidotic from this am ABGs, d/w [facility] vent changes made -Still on high dose steriods, start weaning steroids today -Continue daily serial ABGs and CXR #GI: MO, protein calorie malnutrition -Reglan added on 06/27 to promote peristalsis -Last BM on 06/14 -Continue BR: Senokot, colace, Miralax, added suppository -Continue enteral nutrition as tolerated -consider KUB if patient start having emesis -Continue PPI- Pepcid #: CKD stage III #hyperkalemia; hyperphosphatemia #metabolic acidosis -Nephrology consulted, appreciate recommendations -Hemodialysis initiated status post placement of access; last received on 06/25/2021 -Electrolytes imbalance improved -last HD on 06/27- 1L out -Continue HD management per Nephro -Renally dosed medications and avoid nephrotoxic medications #Heme: h/o DVT, coagulopathy of COVID #Thrombocytopenia -Patient was on Eliquis which was discontinued and converted to therapeutic Lovenox -Lovenox was switched to Heparin in the setting of worsening renal function -Bilateral lower extremity Doppler ultrasound completed-> no acute DVT -Transitioned to Eliquis for anticoagulation in the setting of worsening throm bocytopenia, now on hold due to bleeding from ETT - Plt 45 today s/p 2 unit of plt; additional 1 unit ordered -HEME on consult, appreciate recommendations -Pending HIT assay results -SCDs to bilateral directions while in bed -Trend CBC daily -Transfuse for hemoglobin less than 7 and plt less than 50 #ID: Sepsis, COVID-19 pneumonia -Infectious disease consulted, appreciate recommendations -S/p steroids for 10 days; S/p remdesivir -Still on high dose steroids -Vitamin C/zinc/vitamin D -contact/droplet isolation precautions -Trend COVID-19 inflammatory markers every 2-3 days -Currently on cefepime and vancomycin #Endo: Hyperglycemia; #H/o insulin-dependent diabetes #Hypothyroidism -Continue IV levothyroxine 200 mcg -On high dose steroids -Accu-Cheks every 6 hours; on high dose SSI -Adjusted NPH BID for better glucose control -Goal glucose 140-180 while critically ill The high probability of a clinically significant, sudden or life threatening deterioration of the [cardio, respiratory, Endo] system(s) required my full and direct attention, intervention and personal management. The aggregate critical care time was [60] minutes. This time is in addition to time spent performing reported procedures but includes the following: [x] Data Review and interpretation [x] Patient assessment and monitoring of vital signs [x] Documentation [x] Medication orders and management Disposition Plan: Continue medical management Total Time Spent with Patient (Minutes): 60 History Interval history: Patient seen and examined. Remains intubated and sedated on fent gtt. On cardizem gtt for rate control. No significant events overnight Hospitalist Physical - Constitutional Vitals: Temp Pulse Resp BP Pulse Ox 98.2 F 89 30 H 171/67 95 07/01/21 07:28 07/01/21 10:00 07/01/21 10:00 07/01/21 10:00 07/01/21 10:00 General appearance: Present: no acute distress, well-nourished, obese - EENT Eyes: Present: PERRL - Respiratory Respiratory effort: normal Respiratory: right: rales, rhonchi, bilateral: diminished - Cardiovascular Rhythm: regular Heart Sounds: Present: S1 & S2 - Extremities Extremities: no ischemia, pulses intact, pulses symmetrical Extremity abnormal: edema - Peripheral Assessment Generalized Edema Type: Non-pitting Edema Degree: 1+ Capillary Refill: < 3 seconds Skin Temperature: Warm Peripheral Pulses: within normal limits - Abdominal General gastrointestinal: soft, non-tender, hypoactive bowel sounds - Integumentary Integumentary: Present: warm, dry - Psychiatric Psychiatric: other (MIKHAIL) - Neurologic Neurologic: other (MIKHAIL) - Allied Health Allied health notes reviewed: nursing HEART Score - HEART Score EKG: Non-specific Age: 45-65 Risk factors: 1-2 risk factors Troponin: Troponin T 0.021 ng/mL (0.00-0.029) 06/08/21 13:49 - Critical Actions Critical Actions: 0-3 pts:0.9-1.7%risk of adverse cardiac event.Candidate for discharge Results - Labs CBC & Chem 7: 07/01/21 04:00 07/01/21 04:00 Labs: Laboratory Last Values WBC 11.3 K/mm3 (4.5-11.0) H 07/01/21 04:00 RBC 2.75 M/mm3 (3.65-5.03) L 07/01/21 04:00 Hgb 7.8 gm/dl (10.1-14.3) L 07/01/21 04:00 Hct 23.9 % (30.3-42.9) L 07/01/21 04:00 MCV 87 fl (79-97) 07/01/21 04:00 MCH 28 pg (28-32) 07/01/21 04:00 MCHC 33 % (30-34) 07/01/21 04:00 RDW 15.9 % (13.2-15.2) H 07/01/21 04:00 Plt Count 50 K/mm3 (140-440) L 07/01/21 04:00 Lymph % (Auto) 7.6 % (13.4-35.0) L 06/28/21 04:25 [place] % (Auto) 5.6 % (0.0-7.3) 06/28/21 04:25 Eos % (Auto) 0.0 % (0.0-4.3) 06/28/21 04:25 Baso % (Auto) 0.1 % (0.0-1.8) 06/28/21 04:25 Lymph # (Auto) 0.9 K/mm3 (1.2-5.4) L 06/28/21 04:25 [place] # (Auto) 0.7 K/mm3 (0.0-0.8) 06/28/21 04:25 Eos # (Auto) 0.0 K/mm3 (0.0-0.4) 06/28/21 04:25 Baso # (Auto) 0.0 K/mm3 (0.0-0.1) 06/28/21 04:25 Add Manual Diff Complete 06/27/21 06:40 Total Counted 100 06/24/21 04:55 Seg Neutrophils % 86.7 % (40.0-70.0) H 06/28/21 04:25 Seg Neuts % (Manual) 68.0 % (40.0-70.0) 06/24/21 04:55 Band Neutrophils % 23.0 % 06/24/21 04:55 Lymphocytes % (Manual) 1.0 % (13.4-35.0) L 06/24/21 04:55 Monocytes % (Manual) 6.0 % (0.0-7.3) 06/23/21 04:42 Eosinophils % (Manual) 2.0 % (0.0-4.3) 06/23/21 04:42 Metamyelocytes % 2.0 % 06/10/21 23:14 Myelocytes % 8.0 % 06/24/21 04:55 Nucleated RBC % Not Reportable 06/27/21 06:40 Seg Neutrophils # 10.0 K/mm3 (1.8-7.7) H 06/28/21 04:25 Seg Neutrophils # Man 12.7 K/mm3 (1.8-7.7) H 06/24/21 04:55 Band Neutrophils # 4.3 K/mm3 06/24/21 04:55 Lymphocytes # (Manual) 0.2 K/mm3 (1.2-5.4) L 06/24/21 04:55 Abs React Lymphs (Man) 0.0 K/mm3 06/24/21 04:55 Monocytes # (Manual) 0.0 K/mm3 (0.0-0.8) 06/24/21 04:55 Eosinophils # (Manual) 0.0 K/mm3 (0.0-0.4) 06/24/21 04:55 Basophils # (Manual) 0.0 K/mm3 (0.0-0.1) 06/24/21 04:55 Metamyelocytes # 0.0 K/mm3 06/24/21 04:55 Myelocytes # 1.5 K/mm3 06/24/21 04:55 Promyelocytes # 0.0 K/mm3 06/24/21 04:55 Blast Cells # 0.0 K/mm3 06/24/21 04:55 WBC Morphology Not Reportable 06/27/21 06:40 Hypersegmented Neuts Not Reportable 06/27/21 06:40 Hyposegmented Neuts Not Reportable 06/27/21 06:40 Hypogranular Neuts Not Reportable 06/27/21 06:40 Smudge Cells Not Reportable 06/27/21 06:40 Toxic Granulation Not Reportable 06/27/21 06:40 Toxic Vacuolation Not Reportable 06/27/21 06:40 Dohle Bodies Not Reportable 06/27/21 06:40 Pelger-Huet Anomaly Not Reportable 06/27/21 06:40 Nba Rods Not Reportable 06/27/21 06:40 Platelet Estimate 30 06/27/21 06:40 Clumped Platelets Not Reportable 06/27/21 06:40 Plt Clumps, EDTA Not Reportable 06/27/21 06:40 Large Platelets 1+ 06/27/21 06:40 Giant Platelets Not Reportable 06/27/21 06:40 Platelet Satelliting Not Reportable 06/27/21 06:40 Plt Morphology Comment Not Reportable 06/27/21 06:40 RBC Morphology Not Reportable 06/27/21 06:40 Dimorphic RBCs Not Reportable 06/27/21 06:40 Polychromasia Not Reportable 06/27/21 06:40 Hypochromasia Not Reportable 06/27/21 06:40 Poikilocytosis Not Reportable 06/27/21 06:40 Anisocytosis Not Reportable 06/27/21 06:40 Microcytosis Not Reportable 06/27/21 06:40 Macrocytosis Not Reportable 06/27/21 06:40 Spherocytes Not Reportable 06/27/21 06:40 Pappenheimer Bodies Not Reportable 06/27/21 06:40 Sickle Cells Not Reportable 06/27/21 06:40 Target Cells Not Reportable 06/27/21 06:40 Tear Drop Cells Not Reportable 06/27/21 06:40 Ovalocytes Not Reportable 06/27/21 06:40 Helmet Cells Not Reportable 06/27/21 06:40 Terry-Harding Bodies Not Reportable 06/27/21 06:40 [place] Rings Not Reportable 06/27/21 06:40 Ellinger Cells Not Reportable 06/27/21 06:40 Bite Cells Not Reportable 06/27/21 06:40 Crenated Cell Not Reportable 06/27/21 06:40 Elliptocytes 1+ 06/27/21 06:40 Acanthocytes (Spur) Not Reportable 06/27/21 06:40 Rouleaux Not Reportable 06/27/21 06:40 Hemoglobin C Crystals Not Reportable 06/27/21 06:40 Schistocytes Not Reportable 06/27/21 06:40 Malaria parasites Not Reportable 06/27/21 06:40 Luis Bodies Not Reportable 06/27/21 06:40 Hem Pathologist Commnt No 06/27/21 06:40 PT 16.7 Sec. (12.2-14.9) H 06/30/21 04:30 INR 1.22 (0.87-1.13) H 06/30/21 04:30 APTT 27.3 Sec. (24.2-36.6) 06/30/21 04:30 Fibrinogen 316 mg/dl (211-480) 06/30/21 04:30 D-Dimer 1363.54 ng/mlDDU (0-234) H 06/26/21 10:00 Heparin Anti-Xa, Unfract Negative (Negative) 06/25/21 17:55 ABG pH 7.269 (7.320-7.450) L 06/30/21 08:59 POC ABG pCO2 58.5 mmHg (32.0-48.0) H 06/30/21 08:59 ABG pCO2 64.0 mm Hg 06/27/21 Unknown POC ABG pO2 70.1 mmHg (83-108) L 06/30/21 08:59 ABG pO2 92.0 mm Hg (80.0-90.0) H 06/27/21 Unknown POC ABG HCO3 26.3 06/30/21 08:59 ABG HCO3 26.2 mmol/L (20.0-26.0) H 06/27/21 Unknown ABG O2 Saturation 92.6 (0-100) 06/30/21 08:59 ABG O2 Content 11.1 (0.0-44) 06/27/21 Unknown POC ABG Base Excess -1.3 06/30/21 08:59 ABG Base Excess -1.7 mmol/L (-2.0-3.0) 06/27/21 Unknown ABG Hemoglobin 10.1 (12.0-17.5) L 06/30/21 08:59 ABG Oxyhemoglobin 91.3 (94-98) L 06/30/21 08:59 ABG Carboxyhemoglobin 1.7 % (0.0-5.0) 06/27/21 Unknown ABG Methemoglobin 0.3 (0.0-1.5) 06/30/21 08:59 ABG Sodium 132.0 mmol/L (136.0-145.0) L 06/30/21 08:59 ABG Potassium 4.8 mmol/L (3.40-4.50) H 06/30/21 08:59 ABG Chloride 95.0 mmol/L (98-107) L 06/30/21 08:59 ABG Glucose 172 mg/dL (65-95) H 06/30/21 08:59 Oxyhemoglobin 94.6 % (95.0-99.0) L 06/27/21 Unknown Carboxyhemoglobin 1.1 (0.5-1.5) 06/30/21 08:59 FiO2 75 % 06/27/21 Unknown FiO2 % 90.0 06/30/21 08:59 Sodium 136 mmol/L (137-145) L 07/01/21 04:00 Potassium 5.2 mmol/L (3.6-5.0) H 07/01/21 04:00 Chloride 95.2 mmol/L (98-107) L 07/01/21 04:00 Carbon Dioxide 23 mmol/L (22-30) 07/01/21 04:00 Anion Gap 23 mmol/L 07/01/21 04:00 BUN 105 mg/dL (7-17) H 07/01/21 04:00 Creatinine 4.7 mg/dL (0.6-1.2) H 07/01/21 04:00 Estimated GFR 11 ml/min 07/01/21 04:00 BUN/Creatinine Ratio 22 % 07/01/21 04:00 Glucose 178 mg/dL (65-100) H 07/01/21 04:00 POC Glucose 173 mg/dL (70-105) H 07/01/21 05:15 Hemoglobin A1c 9.5 % (4-6) H 06/07/21 19:11 Calcium 8.0 mg/dL (8.4-10.2) L 07/01/21 04:00 Phosphorus 6.80 mg/dL (2.5-4.5) H D 06/28/21 04:25 Magnesium 2.30 mg/dL (1.7-2.3) 06/28/21 04:25 Ferritin 1094.0 ng/mL (10.0-200.0) H 06/23/21 Unknown Total Bilirubin 0.50 mg/dL (0.1-1.2) 06/29/21 04:34 AST 22 units/L (5-40) 06/29/21 04:34 ALT 23 units/L (7-56) 06/29/21 04:34 Alkaline Phosphatase 132 units/L (35-129) H 06/29/21 04:34 Lactate Dehydrogenase 606 units/L (91-180) H 06/10/21 23:14 Troponin T 0.021 ng/mL (0.00-0.029) 06/08/21 13:49 C-Reactive Protein 4.40 mg/dL (0.00-1.30) H 06/23/21 04:42 Serum Total Protein 7.0 g/dL (6.1-8.1) 06/10/21 23:14 Total Protein 6.0 g/dL (6.3-8.2) L 06/29/21 04:34 Albumin 3.3 g/dL (3.9-5) L 06/29/21 04:34 Albumin/Globulin Ratio 1.2 % 06/29/21 04:34 Bpkrc-1-Ztikwubdp 0.5 g/dL (0.2-0.3) H 06/10/21 23:14 Sqozy-1-Hrypzesnq 1.7 g/dL (0.5-0.9) H 06/10/21 23:14 Beta Globulins 0.6 g/dL (0.2-0.5) H 06/10/21 23:14 Gamma Globulins 1.3 g/dL (0.8-1.7) 06/10/21 23:14 Abnorm Protein Band 1 see below 06/10/21 23:14 PEP Interpretation see below H 06/10/21 23:14 Triglycerides 209 mg/dL (2-149) H 06/07/21 19:11 Cholesterol 165 mg/dL (50-199) 06/07/21 19:11 LDL Cholesterol Direct 79 mg/dL (50-130) 06/07/21 19:11 HDL Cholesterol 35 mg/dL (40-59) L 06/07/21 19:11 Cholesterol/HDL Ratio 4.71 % 06/07/21 19:11 Procalcitonin 0.91 ng/mL (<0.15) 06/07/21 19:11 TSH 0.109 mlU/mL (0.270-4.200) L 06/30/21 Unknown Arterial Blood Glucose 172 mg/dL (65-95) H 06/30/21 08:59 Arterial Blood Ionized Calcium 4.4 mg/dL (4.6-5.3) L 06/27/21 16:30 Urine Color Sole (Yellow) 06/23/21 17:40 Urine Turbidity Cloudy (Clear) 06/23/21 17:40 Urine pH 6.0 (5.0-7.0) 06/23/21 17:40 Ur Specific [place] 1.017 (1.003-1.030) 06/23/21 17:40 Urine Protein >500 mg/dL (Negative) 06/23/21 17:40 Urine Glucose (UA) 50 mg/dL (Negative) 06/23/21 17:40 Urine Ketones Neg mg/dL (Negative) 06/23/21 17:40 Urine Blood Lg (Negative) 06/23/21 17:40 Urine Nitrite Neg (Negative) 06/23/21 17:40 Urine Bilirubin Neg (Negative) 06/23/21 17:40 Urine Urobilinogen < 2.0 mg/dL (<2.0) 06/23/21 17:40 Ur Leukocyte Esterase Mod (Negative) 06/23/21 17:40 Urine WBC (Auto) > 182.0 /HPF (0.0-6.0) H 06/23/21 17:40 Urine RBC (Auto) > 182.0 /HPF (0.0-6.0) 06/23/21 17:40 Urine WBC Clumps 3+ /HPF 06/23/21 17:40 Uric Acid Crystals 1+ 06/23/21 17:40 Urine Mucus Few /HPF 06/23/21 17:40 Random Vancomycin 13.8 ug/mL (0-40.0) 06/26/21 07:00 Heparin-induced Plt Ab Negative (Negative) 06/25/21 17:55 UF Heparin High Dose 0 % Release 06/25/21 17:55 BESS UFH Low Dose 0.1 0 % Release 06/25/21 17:55 BESS UFH Low Dose 0.5 0 % Release 06/25/21 17:55 Coronavirus (PCR) Positive (Negative) A 06/08/21 08:30 Hepatitis A IgM Ab Non-reactive (NonReactive) 06/24/21 15:57 Hep Bs Antigen Nonreactive (Negative) 06/24/21 15:57 Hep B Core IgM Ab Non-reactive (NonReactive) 06/24/21 15:57 Hepatitis C Antibody Non-reactive (NonReactive) 06/24/21 15:57 Blood Type B POSITIVE 06/27/21 12:12 Antibody Screen Negative 06/27/21 12:12 Roland/IV: Voiding Method Indwelling Catheter Active Medications - Current Medications Current Medications: Generic Name Dose Route Start Last Admin Trade Name Freq PRN Reason Stop Dose Admin Acetaminophen 650 mg 06/07/21 21:41 06/24/21 11:45 Acetaminophen 325 Mg Tab PO 650 mg Q4H PRN Administration Pain MILD(1-3)/Fever >100.5/MARTÍNEZ Albumin Human 25 gm 06/24/21 14:55 06/27/21 17:47 Albumin Human 25% (25 Gm/100 Ml) Inj IV 25 gm KORINA PRN Administration Hypotension Albuterol 2 mg 06/23/21 09:00 Albuterol 2.5 Mg/3 Ml Nebu IH Q4HRT PRN Shortness Of Breath Lipase/Protease/Amylase 1 each 06/28/21 12:15 Lipase 10,500/Protease 25,000/Amylase 43,750 (Units) Dr Cap FEEDTUBE PRN PRN For Clogged Feeding Tube Ascorbic Acid 500 mg 06/22/21 22:00 07/01/21 10:55 Ascorbic Acid 500 Mg Tab PO 500 mg BID LEONOR Administration Atorvastatin Calcium 10 mg 06/08/21 10:00 06/30/21 09:03 Atorvastatin 10 Mg Tab PO 10 mg DAILY LEONOR Administration Bisacodyl 10 mg 07/01/21 09:30 07/01/21 10:54 Bisacodyl 10 Mg Rect Supp LA 07/01/21 14:00 10 mg ONCE LEONOR Administration Bisacodyl 10 mg 07/02/21 10:00 Bisacodyl 10 Mg Rect Supp LA QDAY PRN Constipation Dextrose 50 ml 06/08/21 12:04 06/20/21 12:16 Dextrose 50% In Water (25gm) 50 Ml Syringe IV 50 ml Q30MIN PRN Administration Hypoglycemia Protocol Docusate Sodium 100 mg 06/29/21 22:00 07/01/21 10:55 Docusate Sodium 100 Mg/10 Ml Oral Liqd PO 100 mg BID LEONOR Administration Famotidine 10 mg 07/01/21 10:00 07/01/21 10:55 Famotidine 10 Mg Tab FEEDTUBE 10 mg BID LEONOR Administration Fentanyl 100 mcg 06/28/21 18:03 06/30/21 11:59 Fentanyl 100 Mcg/2 Ml Inj IV 100 mcg Q30MIN PRN Administration ANALGESIA Hydrophilic Ointment 1 applic 06/22/21 13:07 Lip Therapy Vaseline TP Q2HR PRN Dry Lips Fentanyl Citrate 2,000 mcg in 100 mls @ 8.2 mls/hr 06/22/21 14:00 07/01/21 10:52 Fentanyl Drip Premix IV 4 mcg/kg/hr TITR LEONOR 32.8 mls/hr Administration Protocol 1 MCG/KG/HR NORepinephrine/NS 8 MG-250 ML 8 mg in 250 mls @ 3.75 mls/hr 06/22/21 15:00 06/27/21 19:29 Norepinephrine/Ns 8 Mg-250 Ml (Double Conc) IV 0 mcg/min TITRATE LEONOR 0 mls/hr Titration Protocol 2 MCG/MIN Vasopressin 20 unit/ Sodium 101 mls @ 9.09 mls/hr 06/23/21 09:00 06/25/21 16:25 Chloride IV 0 units/min TITR LEONOR 0 mls/hr Titration Protocol 0.03 UNITS/MIN Sodium Chloride 500 mls @ 1 mls/hr 06/23/21 11:19 Nacl 0.9% 500 Ml IV DIRECT PRN ARTERIAL LINE FLUSH Lacosamide 100 mg/ Sodium 110 mls @ 100 mls/hr 06/23/21 15:00 07/01/21 04:24 Chloride IV 100 mls/hr Q12H LEONOR Administration Diltiazem HCl 100 mg in 100 mls @ 7.5 mls/hr 06/28/21 10:15 07/01/21 08:18 Cardizem/D5w 100mg/100ml IV 10 mg/hr TITR LEONOR 10 mls/hr Titration Protocol 7.5 MG/HR Sodium Chloride 100 mls @ 999 mls/hr 06/28/21 16:00 Nacl 0.9% IV KORINA PRN Hypotension Insulin Human Isoph/Insulin Regular 30 unit 06/29/21 17:00 07/01/21 10:54 Insulin Nph/Regular 70/30 Inj SUB-Q 30 unit BIDDIAB LEONOR Administration Insulin Human Regular 0 units 06/22/21 18:00 07/01/21 06:15 Insulin Regular, Human 100 Units/1 Ml SUB-Q 3 units Q6HR [facility] Administration Protocol Levothyroxine Sodium 137.5 mcg 06/23/21 06:00 07/01/21 06:13 Levothyroxine 100 Mcg Inj IV 137.5 mcg DAILY@0600 [facility] Administration Methylprednisolone Sodium Succinate 100 mg 06/29/21 18:00 07/01/21 06:19 Methylprednisolone Sod Succinate 125 Mg/2 Ml Inj IV 100 mg Q12H LEONOR Administration Metoclopramide HCl 5 mg 06/29/21 14:00 07/01/21 06:13 Metoclopramide 10 Mg/2 Ml Inj IV 07/01/21 13:59 5 mg Q8HR LEONOR Administration Midazolam HCl 5 mg 06/26/21 16:00 Midazolam 5 Mg/5 Ml Inj Mdv IV 07/06/21 23:59 PRN NR Midodrine 10 mg 06/22/21 15:00 07/01/21 08:21 Midodrine 5 Mg Tab PO Not Given Q8H [facility] Multi-Ingred Cream/Lotion/Oil/Oint 1 applic 06/22/21 13:07 Mineral Oil/Petrolatum, White Ophth Oint 3.5 Gm OU Q4HR PRN Dry Eye(s) Ondansetron HCl 4 mg 06/07/21 21:41 06/20/21 22:15 Ondansetron 4 Mg/2 Ml Inj IV 4 mg Q8H PRN Administration Nausea And Vomiting Polyethylene Glycol 17 gm 06/29/21 18:00 07/01/21 10:54 Polyethylene Glycol 3350 17 Gm Powder PO 17 gm QDAY LEONOR Administration Senna/Docusate Sodium 1 tab 06/22/21 22:00 07/01/21 10:55 Sennosides/Docusate Sodium 8.6/50 Mg Tab FEEDTUBE 1 tab BID LEONOR Administration Simple Syrup 15 ml 06/28/21 12:15 Simple Syrup 15 Ml FEEDTUBE PRN PRN Hypoglycemia Simple Syrup 30 ml 06/28/21 12:15 Simple Syrup 15 Ml FEEDTUBE PRN PRN Hypoglycemia Sodium Bicarbonate 325 mg 06/28/21 12:15 Sodium Bicarbonate 325 Mg Tab FEEDTUBE PRN PRN For Clogged Feeding Tube Sodium Chloride 10 ml 06/07/21 22:00 07/01/21 10:56 Sodium Chloride 0.9% 10 Ml Flush Syringe IV 10 ml BID LEONOR Administration Sodium Chloride 10 ml 06/07/21 21:41 Sodium Chloride 0.9% 10 Ml Flush Syringe IV PRN PRN LINE FLUSH Zinc Sulfate 220 mg 06/22/21 22:00 07/01/21 10:55 Zinc Sulfate 220 Mg Cap PO 220 mg BID LEONOR Administration Nutrition/Malnutrition Assess - Dietary Evaluation Nutrition/Malnutrition Findings: Nutrition Notes Start: 06/08/21 10:56 Freq: Status: Active Protocol: Document 06/28/21 11:35 GB (Rec: 06/28/21 12:13 GB [id number]) Nutrition Notes Initial or Follow up Reassessment Current Diagnosis Acute Kidney Injury,Diabetes Other Pertinent Diagnosis Pneumonia/COVID-19, hypothyroidism. Current Diet Tube feeding - Nepro goal 50ml /hr Labs/Tests 06/28: Na 136, BUN 79, creatinine 4.8, glucose 301, P 6.8 showing improvement Pertinent Medications Vit C, D5 PRN, fentanyl citrate, Norepenephrine/Ns 8 - Mg 250, Zn Sulfate Height 5 ft 11 in Weight 190.4 kg [place] Body Weight (kg) 70.45 BMI 58.5 Weight change and time frame 06/24: 164.654kg 06/27: 190.4 kg change of +25.7kg for +15.6% significance Weight Status Morbidly Obese Subjective/Other Information MD note 06/27: HD on 06/27, renal labs declining, high residual TF held, begin weaning steroids BM: no bowel movement RECOMMEND: CHANGE TF TO 20ML/ HR UNTIL BM OCCURS, gradually increase back to goal. Percent of energy/protein needs met: Prescribed Tube feeding diet meets 75-100% energy/protein needs. Burn Absent Trauma Absent GI Symptoms Constipation Difficulty In Swallowing Food Allergy Yes Skin Integrity/Comment N/A Current % PO Other Minimum of two criteria No physical signs of malnutrition #1 Nutrition Diagnosis Inadequate energy intake Comments: 06/28: Hypo-active bowels, no movement Etiology COVID=19/pneumonia As Evidenced by Signs and Symptoms Fair tolerance to food, intake of meals between 0-25%. 06/28: intubated/sedated/on TF Diagnosis Progress(for reassessment Continues documentation) Is patient on ventilator? Yes Is Patient Ambulatory and/or Out of Bed No REE-([facility]-confined to bed) 3087.624 Kcal/Kg value to use for calculation 13 Approximate Energy Requirements Using 2475 kcal/Kg Additional Notes Protein: up to 0.7 g/Kg/day @ 164kg: up to 114g Fluids: 1.0 ml/Kcal, or as per MD. Nutrition Intervention Change Diet Order: NPO continue Nutrition Support: Nepro @ 50ml/hr Flush; 150ml every 4 hrs. or as per MD. Run TF at 20ml/hr until BM occurs (no bowel movement, +15% wt gain) Kcal 2,160 Protein (gm) 97 Carbohydrates (gm) 160 Fat (gm) 115 Fluid (mL) 872 Goal #1 Maintain body weight within +/ -3% of actual BWt during LOS. 06/28: not met, +15% r/t no bowel movement, poor renal function, compromised GI function Goal #2 Tolerate TF at goal rate of 50ml/hr during LOS 06/28: high residuals on 06/27 , no bowel movement Goal #3 Nutritional related labs to improve toward acceptable ranges during LOS. 06/28: continues Follow-Up By: 07/01/21 Additional Comments Nepro at minimal rate 20ml/hr. Flush 150/4hr. until BM occurs. Run at minimal rate x3 days.
--- NOTE | 2021-07-01 12:15 | Progress Note ---
Assessment and Plan Acute hypoxemic respiratory failure (ARDS) on MVS Coronavirus infection Pneumonia due to COVID-19 virus Acute kidney injury superimposed on CKD Hypertension Diabetes mellitus type 2, insulin dependent Hypothyroidism Morbid obesity Thrombocytopenia - continue daily SAT and SBT assessment as tolerated - continue to titrate supplemental oxygen for target SpO2 88-90% - VAP bundle addressed - continue lung protective strategies - continue bronchodilators with pulmonary hygiene per RT - wean per pulmonary driven protocols otherwise -CXR, ABG in the morning -Blood pressure control, she was on Carvedilol at home, will add to her current medications - follow HIT assay , results pending - continue HD/UF per nephrology prescription for toxin and volume clearance - continue Keppra 500 mg IV q12h - neurology evaluation ongoing - azotemia per nephrology recommendations - avoid nephrotoxins, renally dose all medications - continue to avoid benzodiazepines, as tolerated to reduce the possibility of delirium - Trend temperature curve and WCC, currently off antibitoics - prn analgesia per CPOT score -Bowel regimen - Maintenance of sleep-wake cycle, avoid delirium - enteric nutritional support , currently on hold secondary poor tolerability/absorption -accucheck and glycemic control. Currently on NPH insulin, monitor for hypoglycemia while tube feedings are on hold - Stress ulcer prophylaxis-Famotidine - mobility protocols for pressure ulcer prevention - Monitor hemodynamics closely - continue other care per attending / other consultants COVID SPECIFIC INTERVENTIONS - Remdesivir as per ID/Pulmonary developed protocols (was not a candidate) - systemic steroids taper for severe COVID-19 infection - this is the patient's second course of steroid therapy She has completed a full treatment course of Dexamethasone - zinc and vitamin C supplementation - Monitor inflammatory markers per facility protocol - ferritin, Ddimer, CRP - Anticoagulation per system Protocol based on d-dimer and clinical considerations Patient has not been on pharmacologic prophylaxis secondary to thrombocytopenia - Continue contact and airborne isolation CONDITION: CRITICAL PROGNOSIS: GUARDED CODE STATUS: FULL CODE The high probability of a clinically significant, sudden or life-threatening deterioration of the [respiratory, cardiovascular, hematologic, renal & neurologic] system(s) required my full and direct attention, intervention and personal management. The aggregate critical care time was [40] minutes without overlap. Time includes spent on; [x] Data Review and interpretation [x] Patient assessment and monitoring of vital signs [x] Documentation [x] Medication orders and management Subjective Date of service: 07/01/21 Principal diagnosis: ARDS; Pneumonia; COVID-19 virus infection; TREMAINE; DM II; Morbid obesity Interval history: Patient seen and examined. Discussed with nursing, respiratory and clinical pharmacist on interdisciplinary rounds. Remains on high vent settings, critical COVID with ARDS PEEP +14/FIO2 90% ABG 7.26/52/76/23 Remains on Fentanyl infusion, currently not on any antibiotics. Reported high gastric residuals( currently on promotility agents), no vomiting, no bowel movements. Tube feedings held per nursing staff Has a PICC line and trialysis catheter, Roland catheter On Cardizem infusion fro rate control Objective Vital Signs - 12hr 07/01/21 07/01/21 07/01/21 01:00 02:00 03:00 Temperature Pulse Rate 89 108 H 114 H Respiratory 30 H 17 30 H Rate Blood Pressure 155/62 215/88 187/70 O2 Sat by Pulse 96 95 97 Oximetry 07/01/21 07/01/21 07/01/21 03:36 04:00 05:00 Temperature 99.7 F H Pulse Rate 105 H 86 Respiratory 14 30 H Rate Blood Pressure 220/81 125/50 O2 Sat by Pulse 96 98 Oximetry 07/01/21 07/01/21 07/01/21 06:00 07:00 07:28 Temperature 98.2 F Pulse Rate 104 H 89 Respiratory 16 30 H Rate Blood Pressure 204/82 191/68 O2 Sat by Pulse 97 96 Oximetry 07/01/21 07/01/21 07/01/21 08:00 09:00 10:00 Temperature Pulse Rate 103 H 82 89 Respiratory 14 30 H 30 H Rate Blood Pressure 200/83 131/53 171/67 O2 Sat by Pulse 95 96 95 Oximetry 07/01/21 11:00 Temperature Pulse Rate 96 H Respiratory 22 Rate Blood Pressure 206/77 O2 Sat by Pulse 94 Oximetry Constitutional: appears uncomfortable, other (Morbidly Obese female with mildly increased work of breathing on MVS) Eyes: non-icteric ENT: oropharynx moist, other (ETT 24 cm SHEREEN) Neck: supple, no lymphadenopathy, other (large neck circumference) Effort: mildly labored Ascultation: Bilateral: diminished breath sounds, rhonchi Percussion: Bilateral: not dull Cardiovascular: irregular rhythm, other (S1,S2) Gastrointestinal: normoactive bowel sounds, soft, non-tender, non-distended (protuberant) Integumentary: rash (stasis dermatitis- type) Extremities: no cyanosis, no edema, pulses normal, no ischemia or petechiae Neurologic: pupils equal and round, unable to assess Psychiatric: other (unable to assess re: AMS) CBC and BMP: 07/02/21 07:47 07/02/21 23:25 ABG, PT/INR, D-dimer: ABG ABG pH 7.269 (7.320-7.450) L 06/30/21 08:59 POC ABG pCO2 58.5 mmHg (32.0-48.0) H 06/30/21 08:59 ABG pCO2 64.0 mm Hg 06/27/21 Unknown POC ABG pO2 70.1 mmHg (83-108) L 06/30/21 08:59 ABG pO2 92.0 mm Hg (80.0-90.0) H 06/27/21 Unknown POC ABG HCO3 26.3 06/30/21 08:59 ABG O2 Saturation 92.6 (0-100) 06/30/21 08:59 PT/INR, D-dimer PT 16.7 Sec. (12.2-14.9) H 06/30/21 04:30 INR 1.22 (0.87-1.13) H 06/30/21 04:30 D-Dimer 1363.54 ng/mlDDU (0-234) H 06/26/21 10:00 Abnormal lab findings: Abnormal Labs 06/07/21 06/07/21 06/07/21 19:11 19:11 19:11 WBC 11.5 H RBC Hgb Hct RDW Plt Count Lymph % (Auto) 6.5 L Lymph # (Auto) 0.8 L Seg Neutrophils % 89.9 H Seg Neuts % (Manual) Lymphocytes % (Manual) Nucleated RBC % Seg Neutrophils # 10.4 H Seg Neutrophils # Man Lymphocytes # (Manual) Monocytes # (Manual) PT INR APTT D-Dimer 5334.05 H ABG pH POC ABG pCO2 POC ABG pO2 ABG pO2 ABG HCO3 ABG O2 Saturation ABG Base Excess ABG Hemoglobin ABG Oxyhemoglobin ABG Methemoglobin ABG Sodium ABG Potassium ABG Chloride ABG Glucose Oxyhemoglobin Carboxyhemoglobin Sodium Potassium Chloride Carbon Dioxide BUN 67 H Creatinine 4.8 H Glucose 244 H POC Glucose Hemoglobin A1c Calcium Phosphorus Magnesium Ferritin Alkaline Phosphatase Lactate Dehydrogenase 796 H Troponin T 0.043 H C-Reactive Protein 19.60 H Total Protein 8.4 H Albumin 3.1 L Hscfl-2-Hvtwnrusq Viqho-0-Lrjwsvnot Beta Globulins PEP Interpretation Triglycerides 209 H HDL Cholesterol 35 L TSH Arterial Blood Glucose Arterial Blood Ionized Calcium Urine WBC (Auto) Coronavirus (PCR) 06/07/21 06/07/21 06/08/21 19:11 19:11 03:04 WBC RBC Hgb Hct RDW Plt Count Lymph % (Auto) Lymph # (Auto) Seg Neutrophils % Seg Neuts % (Manual) Lymphocytes % (Manual) Nucleated RBC % Seg Neutrophils # Seg Neutrophils # Man Lymphocytes # (Manual) Monocytes # (Manual) PT INR APTT D-Dimer ABG pH POC ABG pCO2 POC ABG pO2 ABG pO2 ABG HCO3 ABG O2 Saturation ABG Base Excess ABG Hemoglobin ABG Oxyhemoglobin ABG Methemoglobin ABG Sodium ABG Potassium ABG Chloride ABG Glucose Oxyhemoglobin Carboxyhemoglobin Sodium Potassium Chloride Carbon Dioxide BUN Creatinine Glucose POC Glucose Hemoglobin A1c 9.5 H Calcium Phosphorus Magnesium Ferritin 1230.0 H Alkaline Phosphatase Lactate Dehydrogenase Troponin T 0.031 H D C-Reactive Protein Total Protein Albumin Ppziy-7-Kaatbvhwl Atuqj-2-Zllzmqivu Beta Globulins PEP Interpretation Triglycerides HDL Cholesterol TSH Arterial Blood Glucose Arterial Blood Ionized Calcium Urine WBC (Auto) Coronavirus (PCR) 06/08/21 06/08/21 06/08/21 03:44 03:44 08:21 WBC 12.9 H RBC Hgb Hct RDW Plt Count Lymph % (Auto) Lymph # (Auto) Seg Neutrophils % Seg Neuts % (Manual) 95.0 H Lymphocytes % (Manual) 3.0 L Nucleated RBC % Seg Neutrophils # Seg Neutrophils # Man 12.3 H Lymphocytes # (Manual) 0.4 L Monocytes # (Manual) PT INR APTT D-Dimer ABG pH POC ABG pCO2 POC ABG pO2 ABG pO2 ABG HCO3 ABG O2 Saturation ABG Base Excess ABG Hemoglobin ABG Oxyhemoglobin ABG Methemoglobin ABG Sodium ABG Potassium ABG Chloride ABG Glucose Oxyhemoglobin Carboxyhemoglobin Sodium Potassium Chloride Carbon Dioxide 20 L D BUN 68 H Creatinine 4.7 H Glucose 218 H POC Glucose 273 H Hemoglobin A1c Calcium Phosphorus Magnesium Ferritin Alkaline Phosphatase Lactate Dehydrogenase Troponin T C-Reactive Protein Total Protein Albumin 3.4 L Evsbe-8-Sjzvfbjnm Eukws-6-Klxkdgfix Beta Globulins PEP Interpretation Triglycerides HDL Cholesterol TSH Arterial Blood Glucose Arterial Blood Ionized Calcium Urine WBC (Auto) Coronavirus (PCR) 06/08/21 06/08/21 06/08/21 08:30 11:00 17:29 WBC RBC Hgb Hct RDW Plt Count Lymph % (Auto) Lymph # (Auto) Seg Neutrophils % Seg Neuts % (Manual) Lymphocytes % (Manual) Nucleated RBC % Seg Neutrophils # Seg Neutrophils # Man Lymphocytes # (Manual) Monocytes # (Manual) PT INR APTT D-Dimer ABG pH POC ABG pCO2 POC ABG pO2 ABG pO2 ABG HCO3 ABG O2 Saturation ABG Base Excess ABG Hemoglobin ABG Oxyhemoglobin ABG Methemoglobin ABG Sodium ABG Potassium ABG Chloride ABG Glucose Oxyhemoglobin Carboxyhemoglobin Sodium Potassium Chloride Carbon Dioxide BUN Creatinine Glucose POC Glucose 239 H 220 H Hemoglobin A1c Calcium Phosphorus Magnesium Ferritin Alkaline Phosphatase Lactate Dehydrogenase Troponin T C-Reactive Protein Total Protein Albumin Ezycr-3-Opulawseq Yboov-1-Kbfoilrnr Beta Globulins PEP Interpretation Triglycerides HDL Cholesterol TSH Arterial Blood Glucose Arterial Blood Ionized Calcium Urine WBC (Auto) Coronavirus (PCR) Positive A 06/08/21 06/09/21 06/09/21 21:09 08:07 08:42 WBC 14.7 H RBC 5.28 H Hgb 14.9 H Hct 45.0 H D RDW Plt Count Lymph % (Auto) 4.9 L Lymph # (Auto) 0.7 L Seg Neutrophils % 90.0 H Seg Neuts % (Manual) Lymphocytes % (Manual) Nucleated RBC % Seg Neutrophils # 13.2 H Seg Neutrophils # Man Lymphocytes # (Manual) Monocytes # (Manual) PT INR APTT D-Dimer ABG pH POC ABG pCO2 POC ABG pO2 ABG pO2 ABG HCO3 ABG O2 Saturation ABG Base Excess ABG Hemoglobin ABG Oxyhemoglobin ABG Methemoglobin ABG Sodium ABG Potassium ABG Chloride ABG Glucose Oxyhemoglobin Carboxyhemoglobin Sodium Potassium Chloride Carbon Dioxide BUN Creatinine Glucose POC Glucose 242 H 230 H Hemoglobin A1c Calcium Phosphorus Magnesium Ferritin Alkaline Phosphatase Lactate Dehydrogenase Troponin T C-Reactive Protein Total Protein Albumin Wgswl-7-Wwlqvnhuo Bpkls-4-Examoahqs Beta Globulins PEP Interpretation Triglycerides HDL Cholesterol TSH Arterial Blood Glucose Arterial Blood Ionized Calcium Urine WBC (Auto) Coronavirus (PCR) 06/09/21 06/09/21 06/09/21 08:42 12:05 12:19 WBC RBC Hgb Hct RDW Plt Count Lymph % (Auto) Lymph # (Auto) Seg Neutrophils % Seg Neuts % (Manual) Lymphocytes % (Manual) Nucleated RBC % Seg Neutrophils # Seg Neutrophils # Man Lymphocytes # (Manual) Monocytes # (Manual) PT INR APTT D-Dimer ABG pH POC ABG pCO2 POC ABG pO2 71.4 L ABG pO2 ABG HCO3 ABG O2 Saturation ABG Base Excess ABG Hemoglobin ABG Oxyhemoglobin 92.9 L ABG Methemoglobin ABG Sodium ABG Potassium ABG Chloride 109.0 H ABG Glucose 287 H Oxyhemoglobin Carboxyhemoglobin 0.4 L Sodium Potassium Chloride Carbon Dioxide 17 L BUN 74 H Creatinine 3.7 H Glucose 259 H POC Glucose 274 H Hemoglobin A1c Calcium 8.3 L Phosphorus Magnesium Ferritin Alkaline Phosphatase Lactate Dehydrogenase Troponin T C-Reactive Protein Total Protein Albumin Rxjxf-7-Llmesgblq Hfcxf-2-Brcclcfbh Beta Globulins PEP Interpretation Triglycerides HDL Cholesterol TSH Arterial Blood Glucose 287 H Arterial Blood Ionized Calcium Urine WBC (Auto) Coronavirus (PCR) 06/09/21 06/09/21 06/10/21 16:59 21:06 08:25 WBC RBC Hgb Hct RDW Plt Count Lymph % (Auto) Lymph # (Auto) Seg Neutrophils % Seg Neuts % (Manual) Lymphocytes % (Manual) Nucleated RBC % Seg Neutrophils # Seg Neutrophils # Man Lymphocytes # (Manual) Monocytes # (Manual) PT INR APTT D-Dimer ABG pH POC ABG pCO2 POC ABG pO2 ABG pO2 ABG HCO3 ABG O2 Saturation ABG Base Excess ABG Hemoglobin ABG Oxyhemoglobin ABG Methemoglobin ABG Sodium ABG Potassium ABG Chloride ABG Glucose Oxyhemoglobin Carboxyhemoglobin Sodium Potassium Chloride Carbon Dioxide BUN Creatinine Glucose POC Glucose 268 H 263 H 280 H Hemoglobin A1c Calcium Phosphorus Magnesium Ferritin Alkaline Phosphatase Lactate Dehydrogenase Troponin T C-Reactive Protein Total Protein Albumin Vpdrs-7-Kzzezctom Jvjzu-8-Cyjbqevep Beta Globulins PEP Interpretation Triglycerides HDL Cholesterol TSH Arterial Blood Glucose Arterial Blood Ionized Calcium Urine WBC (Auto) Coronavirus (PCR) 06/10/21 06/10/21 06/10/21 12:07 15:38 21:04 WBC RBC Hgb Hct RDW Plt Count Lymph % (Auto) Lymph # (Auto) Seg Neutrophils % Seg Neuts % (Manual) Lymphocytes % (Manual) Nucleated RBC % Seg Neutrophils # Seg Neutrophils # Man Lymphocytes # (Manual) Monocytes # (Manual) PT INR APTT D-Dimer ABG pH POC ABG pCO2 POC ABG pO2 ABG pO2 ABG HCO3 ABG O2 Saturation ABG Base Excess ABG Hemoglobin ABG Oxyhemoglobin ABG Methemoglobin ABG Sodium ABG Potassium ABG Chloride ABG Glucose Oxyhemoglobin Carboxyhemoglobin Sodium Potassium Chloride Carbon Dioxide BUN Creatinine Glucose POC Glucose 247 H 269 H 195 H Hemoglobin A1c Calcium Phosphorus Magnesium Ferritin Alkaline Phosphatase Lactate Dehydrogenase Troponin T C-Reactive Protein Total Protein Albumin Umbtd-7-Qxzhkorxo Ouqvz-3-Tvqfqclnv Beta Globulins PEP Interpretation Triglycerides HDL Cholesterol TSH Arterial Blood Glucose Arterial Blood Ionized Calcium Urine WBC (Auto) Coronavirus (PCR) 06/10/21 06/10/21 06/10/21 23:14 23:14 23:14 WBC RBC Hgb Hct RDW 15.3 H Plt Count Lymph % (Auto) Lymph # (Auto) Seg Neutrophils % Seg Neuts % (Manual) 93.0 H Lymphocytes % (Manual) 2.0 L Nucleated RBC % 3.0 H Seg Neutrophils # Seg Neutrophils # Man 10.2 H Lymphocytes # (Manual) 0.2 L Monocytes # (Manual) PT INR APTT D-Dimer ABG pH POC ABG pCO2 POC ABG pO2 ABG pO2 ABG HCO3 ABG O2 Saturation ABG Base Excess ABG Hemoglobin ABG Oxyhemoglobin ABG Methemoglobin ABG Sodium ABG Potassium ABG Chloride ABG Glucose Oxyhemoglobin Carboxyhemoglobin Sodium 148 H D Potassium Chloride 111.7 H Carbon Dioxide 20 L BUN 70 H Creatinine 3.2 H Glucose 186 H POC Glucose Hemoglobin A1c Calcium Phosphorus Magnesium Ferritin Alkaline Phosphatase Lactate Dehydrogenase Troponin T C-Reactive Protein Total Protein Albumin 2.6 L Rvlls-9-Paigwczic 0.5 H Mdpkr-1-Othonlwuq 1.7 H Beta Globulins 0.6 H PEP Interpretation see below H Triglycerides HDL Cholesterol TSH Arterial Blood Glucose Arterial Blood Ionized Calcium Urine WBC (Auto) Coronavirus (PCR) 06/10/21 06/10/21 06/10/21 23:14 23:14 23:14 WBC RBC Hgb Hct RDW Plt Count Lymph % (Auto) Lymph # (Auto) Seg Neutrophils % Seg Neuts % (Manual) Lymphocytes % (Manual) Nucleated RBC % Seg Neutrophils # Seg Neutrophils # Man Lymphocytes # (Manual) Monocytes # (Manual) PT INR APTT D-Dimer > 15318 H ABG pH POC ABG pCO2 POC ABG pO2 ABG pO2 ABG HCO3 ABG O2 Saturation ABG Base Excess ABG Hemoglobin ABG Oxyhemoglobin ABG Methemoglobin ABG Sodium ABG Potassium ABG Chloride ABG Glucose Oxyhemoglobin Carboxyhemoglobin Sodium Potassium Chloride Carbon Dioxide BUN Creatinine Glucose POC Glucose Hemoglobin A1c Calcium Phosphorus Magnesium 2.50 H Ferritin 1319.0 H Alkaline Phosphatase Lactate Dehydrogenase 606 H Troponin T C-Reactive Protein Total Protein Albumin Lbhmi-2-Zhvzosdbq Agiao-3-Rpkphbnjr Beta Globulins PEP Interpretation Triglycerides HDL Cholesterol TSH Arterial Blood Glucose Arterial Blood Ionized Calcium Urine WBC (Auto) Coronavirus (PCR) 06/11/21 06/11/21 06/11/21 07:34 10:57 10:57 WBC RBC Hgb Hct RDW Plt Count Lymph % (Auto) Lymph # (Auto) Seg Neutrophils % Seg Neuts % (Manual) Lymphocytes % (Manual) Nucleated RBC % Seg Neutrophils # Seg Neutrophils # Man Lymphocytes # (Manual) Monocytes # (Manual) PT INR APTT D-Dimer > 29917 H ABG pH POC ABG pCO2 POC ABG pO2 ABG pO2 ABG HCO3 ABG O2 Saturation ABG Base Excess ABG Hemoglobin ABG Oxyhemoglobin ABG Methemoglobin ABG Sodium ABG Potassium ABG Chloride ABG Glucose Oxyhemoglobin Carboxyhemoglobin Sodium Potassium Chloride Carbon Dioxide BUN Creatinine Glucose POC Glucose 169 H Hemoglobin A1c Calcium Phosphorus Magnesium Ferritin 1300.0 H Alkaline Phosphatase Lactate Dehydrogenase Troponin T C-Reactive Protein Total Protein Albumin Awbnj-3-Hjcizpvgb Gouhf-6-Xcpjiwavv Beta Globulins PEP Interpretation Triglycerides HDL Cholesterol TSH Arterial Blood Glucose Arterial Blood Ionized Calcium Urine WBC (Auto) Coronavirus (PCR) 06/11/21 06/11/21 06/11/21 10:58 10:58 11:49 WBC 11.3 H RBC Hgb Hct RDW 15.3 H Plt Count Lymph % (Auto) Lymph # (Auto) Seg Neutrophils % Seg Neuts % (Manual) 88.0 H Lymphocytes % (Manual) 6.0 L Nucleated RBC % Seg Neutrophils # Seg Neutrophils # Man 9.9 H Lymphocytes # (Manual) 0.7 L Monocytes # (Manual) PT INR APTT D-Dimer ABG pH POC ABG pCO2 POC ABG pO2 ABG pO2 ABG HCO3 ABG O2 Saturation ABG Base Excess ABG Hemoglobin ABG Oxyhemoglobin ABG Methemoglobin ABG Sodium ABG Potassium ABG Chloride ABG Glucose Oxyhemoglobin Carboxyhemoglobin Sodium 150 H Potassium 3.4 L Chloride 114.8 H Carbon Dioxide 21 L BUN 65 H Creatinine 2.9 H Glucose 180 H POC Glucose 191 H Hemoglobin A1c Calcium Phosphorus Magnesium 2.50 H Ferritin Alkaline Phosphatase Lactate Dehydrogenase Troponin T C-Reactive Protein 1.90 H Total Protein Albumin Rnrhi-9-Ylgbhnbbm Wfnsf-4-Irfpxrlgr Beta Globulins PEP Interpretation Triglycerides HDL Cholesterol TSH Arterial Blood Glucose Arterial Blood Ionized Calcium Urine WBC (Auto) Coronavirus (PCR) 06/11/21 06/11/21 06/12/21 15:49 21:16 04:22 WBC RBC Hgb Hct RDW Plt Count Lymph % (Auto) Lymph # (Auto) Seg Neutrophils % Seg Neuts % (Manual) Lymphocytes % (Manual) Nucleated RBC % Seg Neutrophils # Seg Neutrophils # Man Lymphocytes # (Manual) Monocytes # (Manual) PT INR APTT D-Dimer ABG pH 7.318 L POC ABG pCO2 POC ABG pO2 ABG pO2 51.5 L ABG HCO3 ABG O2 Saturation 86.9 L ABG Base Excess -5.6 L ABG Hemoglobin ABG Oxyhemoglobin ABG Methemoglobin ABG Sodium ABG Potassium ABG Chloride ABG Glucose Oxyhemoglobin 85.5 L Carboxyhemoglobin Sodium Potassium Chloride Carbon Dioxide BUN Creatinine Glucose POC Glucose 185 H 200 H Hemoglobin A1c Calcium Phosphorus Magnesium Ferritin Alkaline Phosphatase Lactate Dehydrogenase Troponin T C-Reactive Protein Total Protein Albumin Ifuaw-3-Gfdpceguu Ioasx-4-Xjqvdyqqp Beta Globulins PEP Interpretation Triglycerides HDL Cholesterol TSH Arterial Blood Glucose Arterial Blood Ionized Calcium Urine WBC (Auto) Coronavirus (PCR) 06/12/21 06/12/21 06/12/21 07:41 08:31 08:31 WBC 12.4 H RBC Hgb Hct RDW 15.3 H Plt Count Lymph % (Auto) 8.5 L Lymph # (Auto) 1.1 L Seg Neutrophils % 88.1 H Seg Neuts % (Manual) Lymphocytes % (Manual) Nucleated RBC % Seg Neutrophils # 10.9 H Seg Neutrophils # Man Lymphocytes # (Manual) Monocytes # (Manual) PT INR APTT D-Dimer ABG pH POC ABG pCO2 POC ABG pO2 ABG pO2 ABG HCO3 ABG O2 Saturation ABG Base Excess ABG Hemoglobin ABG Oxyhemoglobin ABG Methemoglobin ABG Sodium ABG Potassium ABG Chloride ABG Glucose Oxyhemoglobin Carboxyhemoglobin Sodium 151 H Potassium Chloride 117.3 H Carbon Dioxide 21 L BUN 61 H Creatinine 2.5 H Glucose 165 H POC Glucose 165 H Hemoglobin A1c Calcium 8.3 L Phosphorus Magnesium Ferritin Alkaline Phosphatase Lactate Dehydrogenase Troponin T C-Reactive Protein Total Protein Albumin Atxfc-7-Qymabveum Rdfsy-6-Pflcdzods Beta Globulins PEP Interpretation Triglycerides HDL Cholesterol TSH Arterial Blood Glucose Arterial Blood Ionized Calcium Urine WBC (Auto) Coronavirus (PCR) 06/12/21 06/12/21 06/12/21 08:31 10:32 15:47 WBC RBC Hgb Hct RDW Plt Count Lymph % (Auto) Lymph # (Auto) Seg Neutrophils % Seg Neuts % (Manual) Lymphocytes % (Manual) Nucleated RBC % Seg Neutrophils # Seg Neutrophils # Man Lymphocytes # (Manual) Monocytes # (Manual) PT INR APTT D-Dimer ABG pH POC ABG pCO2 POC ABG pO2 ABG pO2 ABG HCO3 ABG O2 Saturation ABG Base Excess ABG Hemoglobin ABG Oxyhemoglobin ABG Methemoglobin ABG Sodium ABG Potassium ABG Chloride ABG Glucose Oxyhemoglobin Carboxyhemoglobin Sodium Potassium Chloride Carbon Dioxide BUN Creatinine Glucose POC Glucose 156 H 176 H Hemoglobin A1c Calcium Phosphorus Magnesium 2.50 H Ferritin Alkaline Phosphatase Lactate Dehydrogenase Troponin T C-Reactive Protein Total Protein Albumin Beyzg-2-Zclhdnwmp Lboru-4-Syfnarcsx Beta Globulins PEP Interpretation Triglycerides HDL Cholesterol TSH Arterial Blood Glucose Arterial Blood Ionized Calcium Urine WBC (Auto) Coronavirus (PCR) 06/12/21 06/13/21 06/13/21 21:50 07:42 07:42 WBC 14.1 H RBC Hgb Hct RDW 15.3 H Plt Count Lymph % (Auto) Lymph # (Auto) Seg Neutrophils % Seg Neuts % (Manual) 87.0 H Lymphocytes % (Manual) 7.0 L Nucleated RBC % 3.0 H Seg Neutrophils # Seg Neutrophils # Man 12.3 H Lymphocytes # (Manual) 1.0 L Monocytes # (Manual) PT INR APTT D-Dimer ABG pH POC ABG pCO2 POC ABG pO2 ABG pO2 ABG HCO3 ABG O2 Saturation ABG Base Excess ABG Hemoglobin ABG Oxyhemoglobin ABG Methemoglobin ABG Sodium ABG Potassium ABG Chloride ABG Glucose Oxyhemoglobin Carboxyhemoglobin Sodium 151 H Potassium 3.5 L Chloride 116.0 H Carbon Dioxide BUN 61 H Creatinine 2.3 H Glucose 135 H POC Glucose 165 H Hemoglobin A1c Calcium Phosphorus Magnesium 2.50 H Ferritin Alkaline Phosphatase Lactate Dehydrogenase Troponin T C-Reactive Protein Total Protein Albumin Vxuzx-8-Mrvtbzdac Jyzqe-3-Ttnhcdjpu Beta Globulins PEP Interpretation Triglycerides HDL Cholesterol TSH Arterial Blood Glucose Arterial Blood Ionized Calcium Urine WBC (Auto) Coronavirus (PCR) 06/13/21 06/13/21 06/13/21 08:10 11:10 18:15 WBC RBC Hgb Hct RDW Plt Count Lymph % (Auto) Lymph # (Auto) Seg Neutrophils % Seg Neuts % (Manual) Lymphocytes % (Manual) Nucleated RBC % Seg Neutrophils # Seg Neutrophils # Man Lymphocytes # (Manual) Monocytes # (Manual) PT INR APTT D-Dimer ABG pH POC ABG pCO2 POC ABG pO2 ABG pO2 ABG HCO3 ABG O2 Saturation ABG Base Excess ABG Hemoglobin ABG Oxyhemoglobin ABG Methemoglobin ABG Sodium ABG Potassium ABG Chloride ABG Glucose Oxyhemoglobin Carboxyhemoglobin Sodium Potassium Chloride Carbon Dioxide BUN Creatinine Glucose POC Glucose 118 H 139 H 179 H Hemoglobin A1c Calcium Phosphorus Magnesium Ferritin Alkaline Phosphatase Lactate Dehydrogenase Troponin T C-Reactive Protein Total Protein Albumin Tcste-0-Sxkpgiswy Wwkcj-3-Deffejjac Beta Globulins PEP Interpretation Triglycerides HDL Cholesterol TSH Arterial Blood Glucose Arterial Blood Ionized Calcium Urine WBC (Auto) Coronavirus (PCR) 06/13/21 06/13/21 06/14/21 21:54 23:27 04:42 WBC 12.8 H RBC Hgb Hct RDW 15.3 H Plt Count Lymph % (Auto) Lymph # (Auto) Seg Neutrophils % Seg Neuts % (Manual) 92.0 H Lymphocytes % (Manual) 1.0 L Nucleated RBC % 2.0 H Seg Neutrophils # Seg Neutrophils # Man 11.8 H Lymphocytes # (Manual) 0.1 L Monocytes # (Manual) PT INR APTT D-Dimer ABG pH POC ABG pCO2 POC ABG pO2 ABG pO2 ABG HCO3 ABG O2 Saturation ABG Base Excess ABG Hemoglobin ABG Oxyhemoglobin ABG Methemoglobin ABG Sodium ABG Potassium ABG Chloride ABG Glucose Oxyhemoglobin Carboxyhemoglobin Sodium 152 H Potassium Chloride 116.3 H Carbon Dioxide 21 L BUN 67 H Creatinine 2.5 H Glucose 212 H POC Glucose 193 H Hemoglobin A1c Calcium Phosphorus Magnesium Ferritin Alkaline Phosphatase Lactate Dehydrogenase Troponin T C-Reactive Protein Total Protein Albumin Sdbsf-8-Lfychlfxj Qilbh-1-Vrqvoewvj Beta Globulins PEP Interpretation Triglycerides HDL Cholesterol TSH Arterial Blood Glucose Arterial Blood Ionized Calcium Urine WBC (Auto) Coronavirus (PCR) 06/14/21 06/14/21 06/14/21 04:42 04:42 07:33 WBC RBC Hgb Hct RDW Plt Count Lymph % (Auto) Lymph # (Auto) Seg Neutrophils % Seg Neuts % (Manual) Lymphocytes % (Manual) Nucleated RBC % Seg Neutrophils # Seg Neutrophils # Man Lymphocytes # (Manual) Monocytes # (Manual) PT INR APTT D-Dimer ABG pH POC ABG pCO2 POC ABG pO2 ABG pO2 ABG HCO3 ABG O2 Saturation ABG Base Excess ABG Hemoglobin ABG Oxyhemoglobin ABG Methemoglobin ABG Sodium ABG Potassium ABG Chloride ABG Glucose Oxyhemoglobin Carboxyhemoglobin Sodium 152 H Potassium Chloride 115.3 H Carbon Dioxide BUN 68 H Creatinine 2.5 H Glucose 188 H POC Glucose 173 H Hemoglobin A1c Calcium Phosphorus Magnesium 2.40 H Ferritin Alkaline Phosphatase Lactate Dehydrogenase Troponin T C-Reactive Protein Total Protein Albumin Jchzg-0-Wdeysmoqh Exrqv-9-Ittzxbjul Beta Globulins PEP Interpretation Triglycerides HDL Cholesterol TSH Arterial Blood Glucose Arterial Blood Ionized Calcium Urine WBC (Auto) Coronavirus (PCR) 06/14/21 06/14/21 06/14/21 10:57 15:53 23:40 WBC RBC Hgb Hct RDW Plt Count Lymph % (Auto) Lymph # (Auto) Seg Neutrophils % Seg Neuts % (Manual) Lymphocytes % (Manual) Nucleated RBC % Seg Neutrophils # Seg Neutrophils # Man Lymphocytes # (Manual) Monocytes # (Manual) PT INR APTT D-Dimer ABG pH POC ABG pCO2 POC ABG pO2 ABG pO2 ABG HCO3 ABG O2 Saturation ABG Base Excess ABG Hemoglobin ABG Oxyhemoglobin ABG Methemoglobin ABG Sodium ABG Potassium ABG Chloride ABG Glucose Oxyhemoglobin Carboxyhemoglobin Sodium Potassium Chloride Carbon Dioxide BUN Creatinine Glucose POC Glucose 195 H 226 H 235 H Hemoglobin A1c Calcium Phosphorus Magnesium Ferritin Alkaline Phosphatase Lactate Dehydrogenase Troponin T C-Reactive Protein Total Protein Albumin Ykgnl-5-Yjirshgwr Yfhfv-5-Ttstspbvm Beta Globulins PEP Interpretation Triglycerides HDL Cholesterol TSH Arterial Blood Glucose Arterial Blood Ionized Calcium Urine WBC (Auto) Coronavirus (PCR) 06/15/21 06/15/21 06/15/21 07:38 07:38 07:38 WBC 14.3 H RBC Hgb Hct RDW Plt Count Lymph % (Auto) Lymph # (Auto) Seg Neutrophils % Seg Neuts % (Manual) 95.0 H Lymphocytes % (Manual) 1.0 L Nucleated RBC % Seg Neutrophils # Seg Neutrophils # Man 13.6 H Lymphocytes # (Manual) 0.1 L Monocytes # (Manual) PT INR APTT D-Dimer > 04076 H ABG pH POC ABG pCO2 POC ABG pO2 ABG pO2 ABG HCO3 ABG O2 Saturation ABG Base Excess ABG Hemoglobin ABG Oxyhemoglobin ABG Methemoglobin ABG Sodium ABG Potassium ABG Chloride ABG Glucose Oxyhemoglobin Carboxyhemoglobin Sodium 153 H Potassium 3.5 L Chloride 115.9 H Carbon Dioxide BUN 55 H Creatinine 2.1 H Glucose 213 H POC Glucose Hemoglobin A1c Calcium Phosphorus Magnesium Ferritin Alkaline Phosphatase Lactate Dehydrogenase Troponin T C-Reactive Protein Total Protein Albumin Glaic-0-Sdapfklzo Maxxv-3-Cgltvlpis Beta Globulins PEP Interpretation Triglycerides HDL Cholesterol TSH Arterial Blood Glucose Arterial Blood Ionized Calcium Urine WBC (Auto) Coronavirus (PCR) 06/15/21 06/15/21 06/15/21 07:38 09:21 11:46 WBC RBC Hgb Hct RDW Plt Count Lymph % (Auto) Lymph # (Auto) Seg Neutrophils % Seg Neuts % (Manual) Lymphocytes % (Manual) Nucleated RBC % Seg Neutrophils # Seg Neutrophils # Man Lymphocytes # (Manual) Monocytes # (Manual) PT INR APTT D-Dimer ABG pH POC ABG pCO2 POC ABG pO2 ABG pO2 ABG HCO3 ABG O2 Saturation ABG Base Excess ABG Hemoglobin ABG Oxyhemoglobin ABG Methemoglobin ABG Sodium ABG Potassium ABG Chloride ABG Glucose Oxyhemoglobin Carboxyhemoglobin Sodium Potassium Chloride Carbon Dioxide BUN Creatinine Glucose POC Glucose 202 H 233 H Hemoglobin A1c Calcium Phosphorus Magnesium Ferritin 1246.0 H Alkaline Phosphatase Lactate Dehydrogenase Troponin T C-Reactive Protein Total Protein Albumin Anypb-7-Vkkocxioo Ibhev-2-Toxvtthbo Beta Globulins PEP Interpretation Triglycerides HDL Cholesterol TSH Arterial Blood Glucose Arterial Blood Ionized Calcium Urine WBC (Auto) Coronavirus (PCR) 06/15/21 06/16/21 06/16/21 17:32 05:44 07:48 WBC RBC Hgb Hct RDW Plt Count Lymph % (Auto) Lymph # (Auto) Seg Neutrophils % Seg Neuts % (Manual) Lymphocytes % (Manual) Nucleated RBC % Seg Neutrophils # Seg Neutrophils # Man Lymphocytes # (Manual) Monocytes # (Manual) PT INR APTT D-Dimer ABG pH POC ABG pCO2 POC ABG pO2 ABG pO2 ABG HCO3 ABG O2 Saturation ABG Base Excess ABG Hemoglobin ABG Oxyhemoglobin ABG Methemoglobin ABG Sodium ABG Potassium ABG Chloride ABG Glucose Oxyhemoglobin Carboxyhemoglobin Sodium 154 H Potassium Chloride 117.2 H Carbon Dioxide BUN 54 H Creatinine 2.0 H Glucose 120 H POC Glucose 179 H 109 H Hemoglobin A1c Calcium Phosphorus Magnesium Ferritin Alkaline Phosphatase Lactate Dehydrogenase Troponin T C-Reactive Protein Total Protein Albumin Blpsj-7-Vetsqopix Bqvsf-9-Cpudogxgb Beta Globulins PEP Interpretation Triglycerides HDL Cholesterol TSH Arterial Blood Glucose Arterial Blood Ionized Calcium Urine WBC (Auto) Coronavirus (PCR) 06/16/21 06/16/21 06/16/21 11:13 15:22 21:15 WBC RBC Hgb Hct RDW Plt Count Lymph % (Auto) Lymph # (Auto) Seg Neutrophils % Seg Neuts % (Manual) Lymphocytes % (Manual) Nucleated RBC % Seg Neutrophils # Seg Neutrophils # Man Lymphocytes # (Manual) Monocytes # (Manual) PT INR APTT D-Dimer ABG pH POC ABG pCO2 POC ABG pO2 ABG pO2 ABG HCO3 ABG O2 Saturation ABG Base Excess ABG Hemoglobin ABG Oxyhemoglobin ABG Methemoglobin ABG Sodium ABG Potassium ABG Chloride ABG Glucose Oxyhemoglobin Carboxyhemoglobin Sodium Potassium Chloride Carbon Dioxide BUN Creatinine Glucose POC Glucose 222 H 218 H 250 H Hemoglobin A1c Calcium Phosphorus Magnesium Ferritin Alkaline Phosphatase Lactate Dehydrogenase Troponin T C-Reactive Protein Total Protein Albumin Rgaev-5-Oznvywrpp Orvsb-7-Onmtnrtbc Beta Globulins PEP Interpretation Triglycerides HDL Cholesterol TSH Arterial Blood Glucose Arterial Blood Ionized Calcium Urine WBC (Auto) Coronavirus (PCR) 06/17/21 06/17/21 06/17/21 07:55 09:35 09:35 WBC RBC Hgb Hct RDW 15.7 H Plt Count 99 L Lymph % (Auto) Lymph # (Auto) Seg Neutrophils % Seg Neuts % (Manual) Lymphocytes % (Manual) Nucleated RBC % Seg Neutrophils # Seg Neutrophils # Man Lymphocytes # (Manual) Monocytes # (Manual) PT INR APTT D-Dimer ABG pH POC ABG pCO2 POC ABG pO2 ABG pO2 ABG HCO3 ABG O2 Saturation ABG Base Excess ABG Hemoglobin ABG Oxyhemoglobin ABG Methemoglobin ABG Sodium ABG Potassium ABG Chloride ABG Glucose Oxyhemoglobin Carboxyhemoglobin Sodium 148 H Potassium Chloride 113.3 H Carbon Dioxide BUN 45 H Creatinine 1.8 H Glucose 202 H POC Glucose 158 H Hemoglobin A1c Calcium Phosphorus Magnesium Ferritin Alkaline Phosphatase Lactate Dehydrogenase Troponin T C-Reactive Protein Total Protein 6.0 L Albumin 2.8 L Mhbal-3-Whwpjzmpc Pummk-1-Noawnzadc Beta Globulins PEP Interpretation Triglycerides HDL Cholesterol TSH Arterial Blood Glucose Arterial Blood Ionized Calcium Urine WBC (Auto) Coronavirus (PCR) 06/17/21 06/17/21 06/18/21 12:32 16:46 06:00 WBC RBC Hgb Hct RDW Plt Count Lymph % (Auto) Lymph # (Auto) Seg Neutrophils % Seg Neuts % (Manual) Lymphocytes % (Manual) Nucleated RBC % Seg Neutrophils # Seg Neutrophils # Man Lymphocytes # (Manual) Monocytes # (Manual) PT INR APTT D-Dimer 9804.08 H ABG pH POC ABG pCO2 POC ABG pO2 ABG pO2 ABG HCO3 ABG O2 Saturation ABG Base Excess ABG Hemoglobin ABG Oxyhemoglobin ABG Methemoglobin ABG Sodium ABG Potassium ABG Chloride ABG Glucose Oxyhemoglobin Carboxyhemoglobin Sodium Potassium Chloride Carbon Dioxide BUN Creatinine Glucose POC Glucose 227 H 203 H Hemoglobin A1c Calcium Phosphorus Magnesium Ferritin Alkaline Phosphatase Lactate Dehydrogenase Troponin T C-Reactive Protein Total Protein Albumin Ombuo-5-Qklfwivyc Zxkjm-5-Uarhwcfqj Beta Globulins PEP Interpretation Triglycerides HDL Cholesterol TSH Arterial Blood Glucose Arterial Blood Ionized Calcium Urine WBC (Auto) Coronavirus (PCR) 06/18/21 06/18/21 06/18/21 06:00 08:00 10:10 WBC RBC Hgb Hct RDW Plt Count Lymph % (Auto) Lymph # (Auto) Seg Neutrophils % Seg Neuts % (Manual) Lymphocytes % (Manual) Nucleated RBC % Seg Neutrophils # Seg Neutrophils # Man Lymphocytes # (Manual) Monocytes # (Manual) PT INR APTT D-Dimer ABG pH POC ABG pCO2 POC ABG pO2 ABG pO2 ABG HCO3 ABG O2 Saturation ABG Base Excess ABG Hemoglobin ABG Oxyhemoglobin ABG Methemoglobin ABG Sodium ABG Potassium ABG Chloride ABG Glucose Oxyhemoglobin Carboxyhemoglobin Sodium Potassium Chloride 110.1 H Carbon Dioxide BUN 39 H Creatinine 1.8 H Glucose 135 H POC Glucose 107 H Hemoglobin A1c Calcium Phosphorus Magnesium Ferritin 904.2 H Alkaline Phosphatase Lactate Dehydrogenase Troponin T C-Reactive Protein Total Protein Albumin Uxbho-4-Kckhiohue Gqvtq-7-Wrdaskzxm Beta Globulins PEP Interpretation Triglycerides HDL Cholesterol TSH Arterial Blood Glucose Arterial Blood Ionized Calcium Urine WBC (Auto) Coronavirus (PCR) 06/18/21 06/18/21 06/18/21 12:06 16:47 21:14 WBC RBC Hgb Hct RDW Plt Count Lymph % (Auto) Lymph # (Auto) Seg Neutrophils % Seg Neuts % (Manual) Lymphocytes % (Manual) Nucleated RBC % Seg Neutrophils # Seg Neutrophils # Man Lymphocytes # (Manual) Monocytes # (Manual) PT INR APTT D-Dimer ABG pH POC ABG pCO2 POC ABG pO2 ABG pO2 ABG HCO3 ABG O2 Saturation ABG Base Excess ABG Hemoglobin ABG Oxyhemoglobin ABG Methemoglobin ABG Sodium ABG Potassium ABG Chloride ABG Glucose Oxyhemoglobin Carboxyhemoglobin Sodium Potassium Chloride Carbon Dioxide BUN Creatinine Glucose POC Glucose 160 H 236 H 186 H Hemoglobin A1c Calcium Phosphorus Magnesium Ferritin Alkaline Phosphatase Lactate Dehydrogenase Troponin T C-Reactive Protein Total Protein Albumin Qqzjr-6-Bfcghvhox Bnkrz-8-Tpyzelaal Beta Globulins PEP Interpretation Triglycerides HDL Cholesterol TSH Arterial Blood Glucose Arterial Blood Ionized Calcium Urine WBC (Auto) Coronavirus (PCR) 06/19/21 06/19/21 06/20/21 15:46 15:46 08:04 WBC RBC Hgb Hct RDW 15.5 H Plt Count 73 L Lymph % (Auto) Lymph # (Auto) Seg Neutrophils % Seg Neuts % (Manual) Lymphocytes % (Manual) Nucleated RBC % Seg Neutrophils # Seg Neutrophils # Man Lymphocytes # (Manual) Monocytes # (Manual) PT INR APTT D-Dimer ABG pH POC ABG pCO2 POC ABG pO2 ABG pO2 ABG HCO3 ABG O2 Saturation ABG Base Excess ABG Hemoglobin ABG Oxyhemoglobin ABG Methemoglobin ABG Sodium ABG Potassium ABG Chloride ABG Glucose Oxyhemoglobin Carboxyhemoglobin Sodium 146 H Potassium Chloride 108.9 H Carbon Dioxide BUN 38 H Creatinine 1.7 H Glucose POC Glucose 52 L Hemoglobin A1c Calcium Phosphorus Magnesium Ferritin Alkaline Phosphatase Lactate Dehydrogenase Troponin T C-Reactive Protein Total Protein Albumin Ohgeh-6-Jadzilnsn Zdgsy-6-Cndxwyzif Beta Globulins PEP Interpretation Triglycerides HDL Cholesterol TSH Arterial Blood Glucose Arterial Blood Ionized Calcium Urine WBC (Auto) Coronavirus (PCR) 06/20/21 06/20/21 06/20/21 11:58 15:16 17:54 WBC RBC Hgb Hct RDW Plt Count Lymph % (Auto) Lymph # (Auto) Seg Neutrophils % Seg Neuts % (Manual) Lymphocytes % (Manual) Nucleated RBC % Seg Neutrophils # Seg Neutrophils # Man Lymphocytes # (Manual) Monocytes # (Manual) PT INR APTT D-Dimer ABG pH POC ABG pCO2 POC ABG pO2 ABG pO2 ABG HCO3 ABG O2 Saturation ABG Base Excess ABG Hemoglobin ABG Oxyhemoglobin ABG Methemoglobin ABG Sodium ABG Potassium ABG Chloride ABG Glucose Oxyhemoglobin Carboxyhemoglobin Sodium 146 H Potassium Chloride 108.2 H Carbon Dioxide BUN 37 H Creatinine 1.7 H Glucose 131 H POC Glucose 58 L 219 H Hemoglobin A1c Calcium Phosphorus Magnesium Ferritin Alkaline Phosphatase Lactate Dehydrogenase Troponin T C-Reactive Protein Total Protein Albumin Jjiuq-1-Nhyaancif Qonbe-0-Ijllyzqkk Beta Globulins PEP Interpretation Triglycerides HDL Cholesterol TSH Arterial Blood Glucose Arterial Blood Ionized Calcium Urine WBC (Auto) Coronavirus (PCR) 06/20/21 06/21/21 06/21/21 21:58 06:00 07:41 WBC RBC Hgb Hct RDW Plt Count Lymph % (Auto) Lymph # (Auto) Seg Neutrophils % Seg Neuts % (Manual) Lymphocytes % (Manual) Nucleated RBC % Seg Neutrophils # Seg Neutrophils # Man Lymphocytes # (Manual) Monocytes # (Manual) PT INR APTT D-Dimer ABG pH POC ABG pCO2 POC ABG pO2 ABG pO2 ABG HCO3 ABG O2 Saturation ABG Base Excess ABG Hemoglobin ABG Oxyhemoglobin ABG Methemoglobin ABG Sodium ABG Potassium ABG Chloride ABG Glucose Oxyhemoglobin Carboxyhemoglobin Sodium Potassium Chloride Carbon Dioxide BUN 42 H Creatinine 2.0 H Glucose 225 H POC Glucose 180 H 204 H Hemoglobin A1c Calcium Phosphorus Magnesium Ferritin Alkaline Phosphatase Lactate Dehydrogenase Troponin T C-Reactive Protein Total Protein Albumin Bpvlw-8-Qovichjaz Ovjwg-2-Jjzvmzqtf Beta Globulins PEP Interpretation Triglycerides HDL Cholesterol TSH Arterial Blood Glucose Arterial Blood Ionized Calcium Urine WBC (Auto) Coronavirus (PCR) 06/21/21 06/21/21 06/21/21 11:01 11:20 15:57 WBC RBC Hgb Hct RDW Plt Count Lymph % (Auto) Lymph # (Auto) Seg Neutrophils % Seg Neuts % (Manual) Lymphocytes % (Manual) Nucleated RBC % Seg Neutrophils # Seg Neutrophils # Man Lymphocytes # (Manual) Monocytes # (Manual) PT INR APTT D-Dimer ABG pH POC ABG pCO2 POC ABG pO2 58.9 L ABG pO2 ABG HCO3 ABG O2 Saturation ABG Base Excess ABG Hemoglobin ABG Oxyhemoglobin 87.4 L ABG Methemoglobin ABG Sodium ABG Potassium ABG Chloride ABG Glucose 212 H Oxyhemoglobin Carboxyhemoglobin Sodium Potassium Chloride Carbon Dioxide BUN Creatinine Glucose POC Glucose 194 H 171 H Hemoglobin A1c Calcium Phosphorus Magnesium Ferritin Alkaline Phosphatase Lactate Dehydrogenase Troponin T C-Reactive Protein Total Protein Albumin Npaki-8-Dgeobbchf Tmfla-7-Banvjuqak Beta Globulins PEP Interpretation Triglycerides HDL Cholesterol TSH Arterial Blood Glucose 212 H Arterial Blood Ionized Calcium 4.5 L Urine WBC (Auto) Coronavirus (PCR) 06/21/21 06/21/21 06/21/21 17:52 17:55 22:09 WBC RBC Hgb Hct RDW Plt Count Lymph % (Auto) Lymph # (Auto) Seg Neutrophils % Seg Neuts % (Manual) Lymphocytes % (Manual) Nucleated RBC % Seg Neutrophils # Seg Neutrophils # Man Lymphocytes # (Manual) Monocytes # (Manual) PT INR APTT D-Dimer ABG pH 7.316 L POC ABG pCO2 51.7 H POC ABG pO2 62.3 L ABG pO2 ABG HCO3 ABG O2 Saturation ABG Base Excess ABG Hemoglobin ABG Oxyhemoglobin 88.7 L ABG Methemoglobin ABG Sodium ABG Potassium ABG Chloride ABG Glucose 197 H Oxyhemoglobin Carboxyhemoglobin Sodium Potassium Chloride Carbon Dioxide BUN Creatinine Glucose POC Glucose 153 H 178 H Hemoglobin A1c Calcium Phosphorus Magnesium Ferritin Alkaline Phosphatase Lactate Dehydrogenase Troponin T C-Reactive Protein Total Protein Albumin Knhup-9-Lekfhuogp Asetj-6-Qfpflhzqa Beta Globulins PEP Interpretation Triglycerides HDL Cholesterol TSH Arterial Blood Glucose 197 H Arterial Blood Ionized Calcium Urine WBC (Auto) Coronavirus (PCR) 06/22/21 06/22/21 06/22/21 07:30 07:43 11:47 WBC RBC Hgb Hct RDW Plt Count Lymph % (Auto) Lymph # (Auto) Seg Neutrophils % Seg Neuts % (Manual) Lymphocytes % (Manual) Nucleated RBC % Seg Neutrophils # Seg Neutrophils # Man Lymphocytes # (Manual) Monocytes # (Manual) PT INR APTT D-Dimer ABG pH POC ABG pCO2 POC ABG pO2 ABG pO2 ABG HCO3 ABG O2 Saturation ABG Base Excess ABG Hemoglobin ABG Oxyhemoglobin ABG Methemoglobin ABG Sodium ABG Potassium ABG Chloride ABG Glucose Oxyhemoglobin Carboxyhemoglobin Sodium Potassium Chloride Carbon Dioxide 21 L BUN 55 H Creatinine 2.8 H Glucose 219 H POC Glucose 235 H 222 H Hemoglobin A1c Calcium Phosphorus Magnesium Ferritin Alkaline Phosphatase Lactate Dehydrogenase Troponin T C-Reactive Protein Total Protein Albumin Geabg-1-Hgcmxyhgm Ecasb-9-Ghbuoomzg Beta Globulins PEP Interpretation Triglycerides HDL Cholesterol TSH Arterial Blood Glucose Arterial Blood Ionized Calcium Urine WBC (Auto) Coronavirus (PCR) 06/22/21 06/22/21 06/22/21 11:50 12:10 15:15 WBC RBC Hgb Hct RDW Plt Count Lymph % (Auto) Lymph # (Auto) Seg Neutrophils % Seg Neuts % (Manual) Lymphocytes % (Manual) Nucleated RBC % Seg Neutrophils # Seg Neutrophils # Man Lymphocytes # (Manual) Monocytes # (Manual) PT INR APTT D-Dimer ABG pH 7.273 L POC ABG pCO2 POC ABG pO2 56.8 L 56.8 L ABG pO2 58.0 L ABG HCO3 ABG O2 Saturation 85.7 L ABG Base Excess -4.9 L ABG Hemoglobin ABG Oxyhemoglobin 86.7 L 86.7 L ABG Methemoglobin ABG Sodium ABG Potassium ABG Chloride ABG Glucose Oxyhemoglobin 84.1 L Carboxyhemoglobin Sodium Potassium Chloride Carbon Dioxide BUN Creatinine Glucose POC Glucose Hemoglobin A1c Calcium Phosphorus Magnesium Ferritin Alkaline Phosphatase Lactate Dehydrogenase Troponin T C-Reactive Protein Total Protein Albumin Xdcpq-3-Cknftcsaf Ifsxw-7-Ehuqwcfnt Beta Globulins PEP Interpretation Triglycerides HDL Cholesterol TSH Arterial Blood Glucose Arterial Blood Ionized Calcium Urine WBC (Auto) Coronavirus (PCR) 06/22/21 06/22/21 06/22/21 17:28 21:22 23:35 WBC RBC Hgb Hct RDW Plt Count Lymph % (Auto) Lymph # (Auto) Seg Neutrophils % Seg Neuts % (Manual) Lymphocytes % (Manual) Nucleated RBC % Seg Neutrophils # Seg Neutrophils # Man Lymphocytes # (Manual) Monocytes # (Manual) PT INR APTT D-Dimer ABG pH 7.217 L POC ABG pCO2 POC ABG pO2 ABG pO2 61.7 L ABG HCO3 ABG O2 Saturation 87.3 L ABG Base Excess -6.0 L ABG Hemoglobin ABG Oxyhemoglobin ABG Methemoglobin ABG Sodium ABG Potassium ABG Chloride ABG Glucose Oxyhemoglobin 85.4 L Carboxyhemoglobin Sodium Potassium Chloride Carbon Dioxide BUN Creatinine Glucose POC Glucose 221 H 204 H Hemoglobin A1c Calcium Phosphorus Magnesium Ferritin Alkaline Phosphatase Lactate Dehydrogenase Troponin T C-Reactive Protein Total Protein Albumin Kdsmn-5-Kcjinzdmm Igolc-1-Rgjtxvrxl Beta Globulins PEP Interpretation Triglycerides HDL Cholesterol TSH Arterial Blood Glucose Arterial Blood Ionized Calcium Urine WBC (Auto) Coronavirus (PCR) 06/23/21 06/23/21 06/23/21 04:42 04:42 04:42 WBC 19.0 H RBC 5.04 H Hgb Hct 44.5 H RDW 16.6 H Plt Count 61 L Lymph % (Auto) Lymph # (Auto) Seg Neutrophils % Seg Neuts % (Manual) Lymphocytes % (Manual) 2.0 L Nucleated RBC % 46.0 H Seg Neutrophils # Seg Neutrophils # Man 13.1 H Lymphocytes # (Manual) 0.4 L Monocytes # (Manual) 1.1 H PT INR APTT D-Dimer 6308.27 H ABG pH POC ABG pCO2 POC ABG pO2 ABG pO2 ABG HCO3 ABG O2 Saturation ABG Base Excess ABG Hemoglobin ABG Oxyhemoglobin ABG Methemoglobin ABG Sodium ABG Potassium ABG Chloride ABG Glucose Oxyhemoglobin Carboxyhemoglobin Sodium Potassium 6.3 H* D Chloride Carbon Dioxide 21 L BUN 72 H Creatinine 4.6 H D Glucose 225 H POC Glucose Hemoglobin A1c Calcium 8.0 L Phosphorus Magnesium Ferritin Alkaline Phosphatase Lactate Dehydrogenase Troponin T C-Reactive Protein Total Protein Albumin Qjlzb-5-Apfoxstkk Cuwwb-8-Elbmdtqtg Beta Globulins PEP Interpretation Triglycerides HDL Cholesterol TSH Arterial Blood Glucose Arterial Blood Ionized Calcium Urine WBC (Auto) Coronavirus (PCR) 06/23/21 06/23/21 06/23/21 04:42 04:42 05:33 WBC RBC Hgb Hct RDW Plt Count Lymph % (Auto) Lymph # (Auto) Seg Neutrophils % Seg Neuts % (Manual) Lymphocytes % (Manual) Nucleated RBC % Seg Neutrophils # Seg Neutrophils # Man Lymphocytes # (Manual) Monocytes # (Manual) PT INR APTT D-Dimer ABG pH POC ABG pCO2 POC ABG pO2 ABG pO2 ABG HCO3 ABG O2 Saturation ABG Base Excess ABG Hemoglobin ABG Oxyhemoglobin ABG Methemoglobin ABG Sodium ABG Potassium ABG Chloride ABG Glucose Oxyhemoglobin Carboxyhemoglobin Sodium Potassium Chloride Carbon Dioxide BUN Creatinine Glucose POC Glucose 227 H Hemoglobin A1c Calcium 7.9 L Phosphorus 8.30 H Magnesium Ferritin 1496.0 H Alkaline Phosphatase Lactate Dehydrogenase Troponin T C-Reactive Protein 4.40 H Total Protein Albumin Qvsmj-1-Siznqtrqx Vlvne-1-Ylpjtxsyf Beta Globulins PEP Interpretation Triglycerides HDL Cholesterol TSH Arterial Blood Glucose Arterial Blood Ionized Calcium Urine WBC (Auto) Coronavirus (PCR) 06/23/21 06/23/21 06/23/21 11:00 11:31 17:40 WBC RBC Hgb Hct RDW Plt Count Lymph % (Auto) Lymph # (Auto) Seg Neutrophils % Seg Neuts % (Manual) Lymphocytes % (Manual) Nucleated RBC % Seg Neutrophils # Seg Neutrophils # Man Lymphocytes # (Manual) Monocytes # (Manual) PT INR APTT D-Dimer ABG pH 7.177 L POC ABG pCO2 58.9 H POC ABG pO2 60.2 L ABG pO2 ABG HCO3 ABG O2 Saturation ABG Base Excess ABG Hemoglobin ABG Oxyhemoglobin 83.5 L ABG Methemoglobin 1.8 H ABG Sodium ABG Potassium ABG Chloride ABG Glucose Oxyhemoglobin Carboxyhemoglobin Sodium Potassium Chloride Carbon Dioxide BUN Creatinine Glucose POC Glucose 207 H Hemoglobin A1c Calcium Phosphorus Magnesium Ferritin Alkaline Phosphatase Lactate Dehydrogenase Troponin T C-Reactive Protein Total Protein Albumin Kiaup-7-Ipldhlgtq Mrbdf-9-Uubckxppk Beta Globulins PEP Interpretation Triglycerides HDL Cholesterol TSH Arterial Blood Glucose Arterial Blood Ionized Calcium Urine WBC (Auto) > 182.0 H Coronavirus (PCR) 06/23/21 06/23/21 06/23/21 17:52 21:12 Unknown WBC RBC Hgb Hct RDW Plt Count Lymph % (Auto) Lymph # (Auto) Seg Neutrophils % Seg Neuts % (Manual) Lymphocytes % (Manual) Nucleated RBC % Seg Neutrophils # Seg Neutrophils # Man Lymphocytes # (Manual) Monocytes # (Manual) PT INR APTT D-Dimer 6308 H ABG pH 7.214 L POC ABG pCO2 60.2 H POC ABG pO2 78.9 L ABG pO2 ABG HCO3 ABG O2 Saturation ABG Base Excess ABG Hemoglobin ABG Oxyhemoglobin 93.4 L ABG Methemoglobin ABG Sodium ABG Potassium 6.3 H ABG Chloride ABG Glucose 338 H Oxyhemoglobin Carboxyhemoglobin Sodium Potassium Chloride Carbon Dioxide BUN Creatinine Glucose POC Glucose 232 H Hemoglobin A1c Calcium Phosphorus Magnesium Ferritin Alkaline Phosphatase Lactate Dehydrogenase Troponin T C-Reactive Protein Total Protein Albumin Hjsyu-2-Uscfkeive Axfzt-5-Rdojaevql Beta Globulins PEP Interpretation Triglycerides HDL Cholesterol TSH Arterial Blood Glucose 338 H Arterial Blood Ionized Calcium 4.1 L Urine WBC (Auto) Coronavirus (PCR) 06/23/21 06/23/21 06/23/21 Unknown Unknown Unknown WBC RBC Hgb Hct RDW Plt Count Lymph % (Auto) Lymph # (Auto) Seg Neutrophils % Seg Neuts % (Manual) Lymphocytes % (Manual) Nucleated RBC % Seg Neutrophils # Seg Neutrophils # Man Lymphocytes # (Manual) Monocytes # (Manual) PT 24.6 H INR 2.18 H APTT 43.8 H D-Dimer ABG pH POC ABG pCO2 POC ABG pO2 ABG pO2 ABG HCO3 ABG O2 Saturation ABG Base Excess ABG Hemoglobin ABG Oxyhemoglobin ABG Methemoglobin ABG Sodium ABG Potassium ABG Chloride ABG Glucose Oxyhemoglobin Carboxyhemoglobin Sodium 146 H Potassium 5.3 H Chloride 113.2 H Carbon Dioxide 20 L BUN 73 H Creatinine 4.2 H Glucose 234 H POC Glucose Hemoglobin A1c Calcium 6.3 L D Phosphorus Magnesium Ferritin 1094.0 H Alkaline Phosphatase Lactate Dehydrogenase Troponin T C-Reactive Protein Total Protein 4.3 L Albumin 2.0 L Xpond-9-Vreyqlnna Woytu-1-Aruirlmup Beta Globulins PEP Interpretation Triglycerides HDL Cholesterol TSH Arterial Blood Glucose Arterial Blood Ionized Calcium Urine WBC (Auto) Coronavirus (PCR) 06/24/21 06/24/21 06/24/21 00:03 04:55 04:55 WBC 18.7 H RBC Hgb Hct RDW 16.8 H Plt Count 42 L Lymph % (Auto) Lymph # (Auto) Seg Neutrophils % Seg Neuts % (Manual) Lymphocytes % (Manual) 1.0 L Nucleated RBC % 1.0 H Seg Neutrophils # Seg Neutrophils # Man 12.7 H Lymphocytes # (Manual) 0.2 L Monocytes # (Manual) PT INR APTT D-Dimer ABG pH POC ABG pCO2 POC ABG pO2 ABG pO2 ABG HCO3 ABG O2 Saturation ABG Base Excess ABG Hemoglobin ABG Oxyhemoglobin ABG Methemoglobin ABG Sodium ABG Potassium ABG Chloride ABG Glucose Oxyhemoglobin Carboxyhemoglobin Sodium Potassium 6.0 H Chloride Carbon Dioxide 20 L BUN 86 H Creatinine 5.4 H Glucose 309 H POC Glucose 265 H Hemoglobin A1c Calcium 6.5 L Phosphorus 7.60 H Magnesium Ferritin Alkaline Phosphatase Lactate Dehydrogenase Troponin T C-Reactive Protein Total Protein 4.6 L Albumin 2.1 L Ghbba-7-Xlepfvxec Ujmgd-1-Hwnaxhndq Beta Globulins PEP Interpretation Triglycerides HDL Cholesterol TSH Arterial Blood Glucose Arterial Blood Ionized Calcium Urine WBC (Auto) Coronavirus (PCR) 06/24/21 06/24/21 06/24/21 04:55 06:01 11:38 WBC RBC Hgb Hct RDW Plt Count Lymph % (Auto) Lymph # (Auto) Seg Neutrophils % Seg Neuts % (Manual) Lymphocytes % (Manual) Nucleated RBC % Seg Neutrophils # Seg Neutrophils # Man Lymphocytes # (Manual) Monocytes # (Manual) PT 22.2 H INR 1.90 H APTT D-Dimer ABG pH POC ABG pCO2 POC ABG pO2 ABG pO2 ABG HCO3 ABG O2 Saturation ABG Base Excess ABG Hemoglobin ABG Oxyhemoglobin ABG Methemoglobin ABG Sodium ABG Potassium ABG Chloride ABG Glucose Oxyhemoglobin Carboxyhemoglobin Sodium Potassium Chloride Carbon Dioxide BUN Creatinine Glucose POC Glucose 257 H 288 H Hemoglobin A1c Calcium Phosphorus Magnesium Ferritin Alkaline Phosphatase Lactate Dehydrogenase Troponin T C-Reactive Protein Total Protein Albumin Mnjxj-6-Uliqymqnl Efkom-3-Mteulhqve Beta Globulins PEP Interpretation Triglycerides HDL Cholesterol TSH Arterial Blood Glucose Arterial Blood Ionized Calcium Urine WBC (Auto) Coronavirus (PCR) 06/24/21 06/24/21 06/25/21 18:02 23:29 05:12 WBC RBC Hgb Hct RDW Plt Count Lymph % (Auto) Lymph # (Auto) Seg Neutrophils % Seg Neuts % (Manual) Lymphocytes % (Manual) Nucleated RBC % Seg Neutrophils # Seg Neutrophils # Man Lymphocytes # (Manual) Monocytes # (Manual) PT INR APTT D-Dimer ABG pH POC ABG pCO2 POC ABG pO2 ABG pO2 ABG HCO3 ABG O2 Saturation ABG Base Excess ABG Hemoglobin ABG Oxyhemoglobin ABG Methemoglobin ABG Sodium ABG Potassium ABG Chloride ABG Glucose Oxyhemoglobin Carboxyhemoglobin Sodium Potassium Chloride Carbon Dioxide BUN Creatinine Glucose POC Glucose 299 H 269 H 283 H Hemoglobin A1c Calcium Phosphorus Magnesium Ferritin Alkaline Phosphatase Lactate Dehydrogenase Troponin T C-Reactive Protein Total Protein Albumin Hehne-0-Cpahzdhbd Rvdxz-6-Eazkniqmg Beta Globulins PEP Interpretation Triglycerides HDL Cholesterol TSH Arterial Blood Glucose Arterial Blood Ionized Calcium Urine WBC (Auto) Coronavirus (PCR) 06/25/21 06/25/21 06/25/21 09:05 09:05 09:05 WBC 14.5 H RBC Hgb Hct RDW 16.4 H Plt Count 41 L Lymph % (Auto) Lymph # (Auto) Seg Neutrophils % Seg Neuts % (Manual) Lymphocytes % (Manual) Nucleated RBC % Seg Neutrophils # Seg Neutrophils # Man Lymphocytes # (Manual) Monocytes # (Manual) PT 20.2 H INR 1.68 H APTT D-Dimer ABG pH POC ABG pCO2 POC ABG pO2 ABG pO2 ABG HCO3 ABG O2 Saturation ABG Base Excess ABG Hemoglobin ABG Oxyhemoglobin ABG Methemoglobin ABG Sodium ABG Potassium ABG Chloride ABG Glucose Oxyhemoglobin Carboxyhemoglobin Sodium Potassium 5.5 H Chloride 97.2 L Carbon Dioxide BUN 88 H Creatinine 5.6 H Glucose 370 H POC Glucose Hemoglobin A1c Calcium 7.4 L Phosphorus 8.00 H Magnesium Ferritin Alkaline Phosphatase Lactate Dehydrogenase Troponin T C-Reactive Protein Total Protein 5.1 L Albumin 2.5 L Fafgs-6-Gcyqvwzab Whgkp-1-Nxkxlzvsy Beta Globulins PEP Interpretation Triglycerides HDL Cholesterol TSH Arterial Blood Glucose Arterial Blood Ionized Calcium Urine WBC (Auto) Coronavirus (PCR) 06/25/21 06/25/21 06/25/21 09:29 12:05 17:28 WBC RBC Hgb Hct RDW Plt Count Lymph % (Auto) Lymph # (Auto) Seg Neutrophils % Seg Neuts % (Manual) Lymphocytes % (Manual) Nucleated RBC % Seg Neutrophils # Seg Neutrophils # Man Lymphocytes # (Manual) Monocytes # (Manual) PT INR APTT D-Dimer ABG pH 7.304 L POC ABG pCO2 53.2 H POC ABG pO2 ABG pO2 ABG HCO3 ABG O2 Saturation ABG Base Excess ABG Hemoglobin 10.9 L ABG Oxyhemoglobin ABG Methemoglobin ABG Sodium 133.9 L ABG Potassium 5.8 H ABG Chloride ABG Glucose 380 H Oxyhemoglobin Carboxyhemoglobin 0.4 L Sodium Potassium Chloride Carbon Dioxide BUN Creatinine Glucose POC Glucose 359 H 288 H Hemoglobin A1c Calcium Phosphorus Magnesium Ferritin Alkaline Phosphatase Lactate Dehydrogenase Troponin T C-Reactive Protein Total Protein Albumin Uzynl-4-Ashiniwmn Zhkxj-2-Dnmcpesyt Beta Globulins PEP Interpretation Triglycerides HDL Cholesterol TSH Arterial Blood Glucose 380 H Arterial Blood Ionized Calcium Urine WBC (Auto) Coronavirus (PCR) 06/25/21 06/25/21 06/26/21 21:00 23:46 05:14 WBC RBC Hgb Hct RDW Plt Count Lymph % (Auto) Lymph # (Auto) Seg Neutrophils % Seg Neuts % (Manual) Lymphocytes % (Manual) Nucleated RBC % Seg Neutrophils # Seg Neutrophils # Man Lymphocytes # (Manual) Monocytes # (Manual) PT INR APTT D-Dimer ABG pH 7.280 L 7.268 L POC ABG pCO2 59.7 H 60.2 H POC ABG pO2 113.7 H ABG pO2 ABG HCO3 ABG O2 Saturation ABG Base Excess ABG Hemoglobin 11.4 L 10.9 L ABG Oxyhemoglobin ABG Methemoglobin ABG Sodium 134.4 L 133.3 L ABG Potassium 4.7 H ABG Chloride ABG Glucose 313 H 353 H Oxyhemoglobin Carboxyhemoglobin 0.4 L Sodium Potassium Chloride Carbon Dioxide BUN Creatinine Glucose POC Glucose 325 H Hemoglobin A1c Calcium Phosphorus Magnesium Ferritin Alkaline Phosphatase Lactate Dehydrogenase Troponin T C-Reactive Protein Total Protein Albumin Tzuqs-9-Ffmmxnwsd Xxodw-7-Ddadiaqcy Beta Globulins PEP Interpretation Triglycerides HDL Cholesterol TSH Arterial Blood Glucose 313 H 353 H Arterial Blood Ionized Calcium Urine WBC (Auto) Coronavirus (PCR) 06/26/21 06/26/21 06/26/21 05:27 07:00 07:00 WBC 11.4 H RBC 3.63 L Hgb Hct RDW 15.6 H Plt Count 29 L Lymph % (Auto) 6.4 L Lymph # (Auto) 0.7 L Seg Neutrophils % 87.9 H Seg Neuts % (Manual) Lymphocytes % (Manual) Nucleated RBC % Seg Neutrophils # 10.4 H Seg Neutrophils # Man Lymphocytes # (Manual) Monocytes # (Manual) PT INR APTT D-Dimer ABG pH POC ABG pCO2 POC ABG pO2 ABG pO2 ABG HCO3 ABG O2 Saturation ABG Base Excess ABG Hemoglobin ABG Oxyhemoglobin ABG Methemoglobin ABG Sodium ABG Potassium ABG Chloride ABG Glucose Oxyhemoglobin Carboxyhemoglobin Sodium Potassium Chloride Carbon Dioxide BUN Creatinine Glucose POC Glucose 345 H Hemoglobin A1c Calcium Phosphorus 7.40 H Magnesium Ferritin Alkaline Phosphatase Lactate Dehydrogenase Troponin T C-Reactive Protein Total Protein Albumin Lnhyd-4-Aorinxosq Nbjjs-9-Ditkvcknk Beta Globulins PEP Interpretation Triglycerides HDL Cholesterol TSH Arterial Blood Glucose Arterial Blood Ionized Calcium Urine WBC (Auto) Coronavirus (PCR) 06/26/21 06/26/21 06/26/21 10:00 10:00 13:01 WBC RBC Hgb Hct RDW Plt Count Lymph % (Auto) Lymph # (Auto) Seg Neutrophils % Seg Neuts % (Manual) Lymphocytes % (Manual) Nucleated RBC % Seg Neutrophils # Seg Neutrophils # Man Lymphocytes # (Manual) Monocytes # (Manual) PT INR APTT D-Dimer 1363.54 H ABG pH POC ABG pCO2 POC ABG pO2 ABG pO2 ABG HCO3 ABG O2 Saturation ABG Base Excess ABG Hemoglobin ABG Oxyhemoglobin ABG Methemoglobin ABG Sodium ABG Potassium ABG Chloride ABG Glucose Oxyhemoglobin Carboxyhemoglobin Sodium 136 L Potassium Chloride 96.1 L Carbon Dioxide BUN 78 H Creatinine 4.6 H Glucose 378 H POC Glucose 363 H Hemoglobin A1c Calcium 8.3 L Phosphorus Magnesium Ferritin Alkaline Phosphatase Lactate Dehydrogenase Troponin T C-Reactive Protein Total Protein Albumin Xbcst-3-Rswqlnghe Czror-5-Wathvfdbt Beta Globulins PEP Interpretation Triglycerides HDL Cholesterol TSH Arterial Blood Glucose Arterial Blood Ionized Calcium Urine WBC (Auto) Coronavirus (PCR) 06/26/21 06/26/21 06/27/21 18:53 23:08 00:15 WBC RBC Hgb Hct RDW Plt Count Lymph % (Auto) Lymph # (Auto) Seg Neutrophils % Seg Neuts % (Manual) Lymphocytes % (Manual) Nucleated RBC % Seg Neutrophils # Seg Neutrophils # Man Lymphocytes # (Manual) Monocytes # (Manual) PT INR APTT D-Dimer ABG pH POC ABG pCO2 POC ABG pO2 ABG pO2 ABG HCO3 ABG O2 Saturation ABG Base Excess ABG Hemoglobin ABG Oxyhemoglobin ABG Methemoglobin ABG Sodium ABG Potassium ABG Chloride ABG Glucose Oxyhemoglobin Carboxyhemoglobin Sodium Potassium Chloride Carbon Dioxide BUN Creatinine Glucose POC Glucose 329 H 337 H 308 H Hemoglobin A1c Calcium Phosphorus Magnesium Ferritin Alkaline Phosphatase Lactate Dehydrogenase Troponin T C-Reactive Protein Total Protein Albumin Lvsmv-0-Orzjcrcby Ktngb-9-Derqtimsg Beta Globulins PEP Interpretation Triglycerides HDL Cholesterol TSH Arterial Blood Glucose Arterial Blood Ionized Calcium Urine WBC (Auto) Coronavirus (PCR) 06/27/21 06/27/21 06/27/21 05:13 06:40 06:40 WBC 12.5 H RBC Hgb Hct RDW 16.1 H Plt Count 23 L Lymph % (Auto) Lymph # (Auto) Seg Neutrophils % Seg Neuts % (Manual) Lymphocytes % (Manual) Nucleated RBC % Seg Neutrophils # 11.3 H Seg Neutrophils # Man Lymphocytes # (Manual) Monocytes # (Manual) PT INR APTT D-Dimer ABG pH POC ABG pCO2 POC ABG pO2 ABG pO2 ABG HCO3 ABG O2 Saturation ABG Base Excess ABG Hemoglobin ABG Oxyhemoglobin ABG Methemoglobin ABG Sodium ABG Potassium ABG Chloride ABG Glucose Oxyhemoglobin Carboxyhemoglobin Sodium 133 L Potassium 5.4 H Chloride 93.4 L Carbon Dioxide BUN 96 H Creatinine 5.6 H Glucose 388 H POC Glucose 329 H Hemoglobin A1c Calcium 8.3 L Phosphorus 8.70 H Magnesium Ferritin Alkaline Phosphatase Lactate Dehydrogenase Troponin T C-Reactive Protein Total Protein Albumin Dchcb-8-Gsfoxmqss Lgowl-2-Wmknbmalu Beta Globulins PEP Interpretation Triglycerides HDL Cholesterol TSH Arterial Blood Glucose Arterial Blood Ionized Calcium Urine WBC (Auto) Coronavirus (PCR) 06/27/21 06/27/21 06/27/21 11:46 16:30 17:12 WBC RBC Hgb Hct RDW Plt Count Lymph % (Auto) Lymph # (Auto) Seg Neutrophils % Seg Neuts % (Manual) Lymphocytes % (Manual) Nucleated RBC % Seg Neutrophils # Seg Neutrophils # Man Lymphocytes # (Manual) Monocytes # (Manual) PT INR APTT D-Dimer ABG pH 7.180 L POC ABG pCO2 62.9 H POC ABG pO2 111.1 H ABG pO2 ABG HCO3 ABG O2 Saturation ABG Base Excess ABG Hemoglobin 10.7 L ABG Oxyhemoglobin ABG Methemoglobin ABG Sodium 130.6 L ABG Potassium 5.1 H ABG Chloride 95.0 L ABG Glucose 364 H Oxyhemoglobin Carboxyhemoglobin Sodium Potassium Chloride Carbon Dioxide BUN Creatinine Glucose POC Glucose 330 H 276 H Hemoglobin A1c Calcium Phosphorus Magnesium Ferritin Alkaline Phosphatase Lactate Dehydrogenase Troponin T C-Reactive Protein Total Protein Albumin Gjaff-2-Wsfdrswjf Mzhze-5-Vzofnkpfb Beta Globulins PEP Interpretation Triglycerides HDL Cholesterol TSH Arterial Blood Glucose 364 H Arterial Blood Ionized Calcium 4.4 L Urine WBC (Auto) Coronavirus (PCR) 06/27/21 06/27/21 06/27/21 21:00 21:16 23:15 WBC RBC Hgb Hct RDW Plt Count Lymph % (Auto) Lymph # (Auto) Seg Neutrophils % Seg Neuts % (Manual) Lymphocytes % (Manual) Nucleated RBC % Seg Neutrophils # Seg Neutrophils # Man Lymphocytes # (Manual) Monocytes # (Manual) PT INR APTT D-Dimer ABG pH 7.283 L 7.257 L POC ABG pCO2 60.1 H POC ABG pO2 ABG pO2 55.0 L ABG HCO3 27.6 H ABG O2 Saturation 85.3 L ABG Base Excess ABG Hemoglobin 10.4 L 9.8 L ABG Oxyhemoglobin ABG Methemoglobin ABG Sodium 135.7 L ABG Potassium ABG Chloride 97.0 L ABG Glucose 309 H Oxyhemoglobin 83.3 L Carboxyhemoglobin Sodium Potassium Chloride Carbon Dioxide BUN Creatinine Glucose POC Glucose 265 H Hemoglobin A1c Calcium Phosphorus Magnesium Ferritin Alkaline Phosphatase Lactate Dehydrogenase Troponin T C-Reactive Protein Total Protein Albumin Meovc-6-Kapaykdpi Ghzim-7-Lhcvxnbvb Beta Globulins PEP Interpretation Triglycerides HDL Cholesterol TSH Arterial Blood Glucose 309 H Arterial Blood Ionized Calcium Urine WBC (Auto) Coronavirus (PCR) 06/27/21 06/28/21 06/28/21 Unknown 04:25 04:25 WBC 11.6 H RBC 3.44 L Hgb 9.9 L Hct RDW 15.7 H Plt Count 36 L Lymph % (Auto) 7.6 L Lymph # (Auto) 0.9 L Seg Neutrophils % 86.7 H Seg Neuts % (Manual) Lymphocytes % (Manual) Nucleated RBC % Seg Neutrophils # 10.0 H Seg Neutrophils # Man Lymphocytes # (Manual) Monocytes # (Manual) PT 16.5 H INR 1.27 H APTT D-Dimer ABG pH 7.230 L POC ABG pCO2 POC ABG pO2 ABG pO2 92.0 H ABG HCO3 26.2 H ABG O2 Saturation ABG Base Excess ABG Hemoglobin 8.2 L ABG Oxyhemoglobin ABG Methemoglobin ABG Sodium ABG Potassium ABG Chloride ABG Glucose Oxyhemoglobin 94.6 L Carboxyhemoglobin Sodium Potassium Chloride Carbon Dioxide BUN Creatinine Glucose POC Glucose Hemoglobin A1c Calcium Phosphorus Magnesium Ferritin Alkaline Phosphatase Lactate Dehydrogenase Troponin T C-Reactive Protein Total Protein Albumin Jopul-7-Opvfzwydt Eavfd-8-Icjpbjgqg Beta Globulins PEP Interpretation Triglycerides HDL Cholesterol TSH Arterial Blood Glucose Arterial Blood Ionized Calcium Urine WBC (Auto) Coronavirus (PCR) 06/28/21 06/28/21 06/28/21 04:25 05:35 12:22 WBC RBC Hgb Hct RDW Plt Count Lymph % (Auto) Lymph # (Auto) Seg Neutrophils % Seg Neuts % (Manual) Lymphocytes % (Manual) Nucleated RBC % Seg Neutrophils # Seg Neutrophils # Man Lymphocytes # (Manual) Monocytes # (Manual) PT INR APTT D-Dimer ABG pH POC ABG pCO2 POC ABG pO2 ABG pO2 ABG HCO3 ABG O2 Saturation ABG Base Excess ABG Hemoglobin ABG Oxyhemoglobin ABG Methemoglobin ABG Sodium ABG Potassium ABG Chloride ABG Glucose Oxyhemoglobin Carboxyhemoglobin Sodium 136 L Potassium Chloride 96.0 L Carbon Dioxide BUN 79 H Creatinine 4.8 H Glucose 301 H POC Glucose 256 H 255 H Hemoglobin A1c Calcium Phosphorus 6.80 H D Magnesium Ferritin Alkaline Phosphatase Lactate Dehydrogenase Troponin T C-Reactive Protein Total Protein Albumin Giwlx-2-Hzlujnrgb Qpgcq-0-Ixaohvjed Beta Globulins PEP Interpretation Triglycerides HDL Cholesterol TSH Arterial Blood Glucose Arterial Blood Ionized Calcium Urine WBC (Auto) Coronavirus (PCR) 06/28/21 06/29/21 06/29/21 18:18 00:36 04:34 WBC 12.0 H RBC 3.35 L Hgb 9.5 L Hct 29.4 L RDW 16.1 H Plt Count 45 L Lymph % (Auto) Lymph # (Auto) Seg Neutrophils % Seg Neuts % (Manual) Lymphocytes % (Manual) Nucleated RBC % Seg Neutrophils # Seg Neutrophils # Man Lymphocytes # (Manual) Monocytes # (Manual) PT INR APTT D-Dimer ABG pH POC ABG pCO2 POC ABG pO2 ABG pO2 ABG HCO3 ABG O2 Saturation ABG Base Excess ABG Hemoglobin ABG Oxyhemoglobin ABG Methemoglobin ABG Sodium ABG Potassium ABG Chloride ABG Glucose Oxyhemoglobin Carboxyhemoglobin Sodium Potassium Chloride Carbon Dioxide BUN Creatinine Glucose POC Glucose 228 H 153 H Hemoglobin A1c Calcium Phosphorus Magnesium Ferritin Alkaline Phosphatase Lactate Dehydrogenase Troponin T C-Reactive Protein Total Protein Albumin Piepy-0-Ufpiqlxyf Gdmxy-7-Ptfwoamet Beta Globulins PEP Interpretation Triglycerides HDL Cholesterol TSH Arterial Blood Glucose Arterial Blood Ionized Calcium Urine WBC (Auto) Coronavirus (PCR) 06/29/21 06/29/21 06/29/21 04:34 05:19 12:30 WBC RBC Hgb Hct RDW Plt Count Lymph % (Auto) Lymph # (Auto) Seg Neutrophils % Seg Neuts % (Manual) Lymphocytes % (Manual) Nucleated RBC % Seg Neutrophils # Seg Neutrophils # Man Lymphocytes # (Manual) Monocytes # (Manual) PT INR APTT D-Dimer ABG pH POC ABG pCO2 POC ABG pO2 ABG pO2 ABG HCO3 ABG O2 Saturation ABG Base Excess ABG Hemoglobin ABG Oxyhemoglobin ABG Methemoglobin ABG Sodium ABG Potassium ABG Chloride ABG Glucose Oxyhemoglobin Carboxyhemoglobin Sodium Potassium 5.2 H Chloride 95.8 L Carbon Dioxide BUN 97 H Creatinine 5.6 H Glucose 184 H POC Glucose 180 H 161 H Hemoglobin A1c Calcium 8.1 L Phosphorus Magnesium Ferritin Alkaline Phosphatase 132 H Lactate Dehydrogenase Troponin T C-Reactive Protein Total Protein 6.0 L Albumin 3.3 L Smlms-8-Vwdirmfks Fkkcw-0-Azluufkzp Beta Globulins PEP Interpretation Triglycerides HDL Cholesterol TSH Arterial Blood Glucose Arterial Blood Ionized Calcium Urine WBC (Auto) Coronavirus (PCR) 06/29/21 06/29/21 06/29/21 13:17 17:29 23:27 WBC RBC Hgb Hct RDW Plt Count Lymph % (Auto) Lymph # (Auto) Seg Neutrophils % Seg Neuts % (Manual) Lymphocytes % (Manual) Nucleated RBC % Seg Neutrophils # Seg Neutrophils # Man Lymphocytes # (Manual) Monocytes # (Manual) PT INR APTT D-Dimer ABG pH 7.243 L POC ABG pCO2 62.5 H POC ABG pO2 81.6 L ABG pO2 ABG HCO3 ABG O2 Saturation ABG Base Excess ABG Hemoglobin 11.2 L ABG Oxyhemoglobin 93.3 L ABG Methemoglobin ABG Sodium 134.3 L ABG Potassium ABG Chloride 96.0 L ABG Glucose 171 H Oxyhemoglobin Carboxyhemoglobin 1.6 H Sodium Potassium Chloride Carbon Dioxide BUN Creatinine Glucose POC Glucose 186 H 151 H Hemoglobin A1c Calcium Phosphorus Magnesium Ferritin Alkaline Phosphatase Lactate Dehydrogenase Troponin T C-Reactive Protein Total Protein Albumin Bqdci-4-Nbnvbhgco Mausx-0-[place] Beta Globulins PEP Interpretation Triglycerides HDL Cholesterol TSH Arterial Blood Glucose 171 H Arterial Blood Ionized Calcium Urine WBC (Auto) Coronavirus (PCR) 06/30/21 06/30/21 06/30/21 04:30 04:30 04:30 WBC 12.5 H RBC 3.25 L Hgb 9.1 L Hct 28.3 L RDW 16.2 H Plt Count 72 L Lymph % (Auto) Lymph # (Auto) Seg Neutrophils % Seg Neuts % (Manual) Lymphocytes % (Manual) Nucleated RBC % Seg Neutrophils # Seg Neutrophils # Man Lymphocytes # (Manual) Monocytes # (Manual) PT 16.7 H INR 1.22 H APTT D-Dimer ABG pH POC ABG pCO2 POC ABG pO2 ABG pO2 ABG HCO3 ABG O2 Saturation ABG Base Excess ABG Hemoglobin ABG Oxyhemoglobin ABG Methemoglobin ABG Sodium ABG Potassium ABG Chloride ABG Glucose Oxyhemoglobin Carboxyhemoglobin Sodium 136 L Potassium Chloride 91.6 L Carbon Dioxide BUN 80 H Creatinine 4.6 H Glucose 164 H POC Glucose Hemoglobin A1c Calcium Phosphorus Magnesium Ferritin Alkaline Phosphatase Lactate Dehydrogenase Troponin T C-Reactive Protein Total Protein Albumin Dtcgx-9-Bhovcojng Mkxsq-6-Djosizqoo Beta Globulins PEP Interpretation Triglycerides HDL Cholesterol TSH Arterial Blood Glucose Arterial Blood Ionized Calcium Urine WBC (Auto) Coronavirus (PCR) 06/30/21 06/30/21 06/30/21 05:41 08:59 11:24 WBC RBC Hgb Hct RDW Plt Count Lymph % (Auto) Lymph # (Auto) Seg Neutrophils % Seg Neuts % (Manual) Lymphocytes % (Manual) Nucleated RBC % Seg Neutrophils # Seg Neutrophils # Man Lymphocytes # (Manual) Monocytes # (Manual) PT INR APTT D-Dimer ABG pH 7.269 L POC ABG pCO2 58.5 H POC ABG pO2 70.1 L ABG pO2 ABG HCO3 ABG O2 Saturation ABG Base Excess ABG Hemoglobin 10.1 L ABG Oxyhemoglobin 91.3 L ABG Methemoglobin ABG Sodium 132.0 L ABG Potassium 4.8 H ABG Chloride 95.0 L ABG Glucose 172 H Oxyhemoglobin Carboxyhemoglobin Sodium Potassium Chloride Carbon Dioxide BUN Creatinine Glucose POC Glucose 155 H 163 H Hemoglobin A1c Calcium Phosphorus Magnesium Ferritin Alkaline Phosphatase Lactate Dehydrogenase Troponin T C-Reactive Protein Total Protein Albumin Xynat-4-Cnftnphyz Saqrl-2-Nsdgrdsqr Beta Globulins PEP Interpretation Triglycerides HDL Cholesterol TSH Arterial Blood Glucose 172 H Arterial Blood Ionized Calcium Urine WBC (Auto) Coronavirus (PCR) 06/30/21 06/30/21 06/30/21 18:02 22:37 Unknown WBC RBC Hgb Hct RDW Plt Count Lymph % (Auto) Lymph # (Auto) Seg Neutrophils % Seg Neuts % (Manual) Lymphocytes % (Manual) Nucleated RBC % Seg Neutrophils # Seg Neutrophils # Man Lymphocytes # (Manual) Monocytes # (Manual) PT INR APTT D-Dimer ABG pH POC ABG pCO2 POC ABG pO2 ABG pO2 ABG HCO3 ABG O2 Saturation ABG Base Excess ABG Hemoglobin ABG Oxyhemoglobin ABG Methemoglobin ABG Sodium ABG Potassium ABG Chloride ABG Glucose Oxyhemoglobin Carboxyhemoglobin Sodium Potassium Chloride Carbon Dioxide BUN Creatinine Glucose POC Glucose 156 H 159 H Hemoglobin A1c Calcium Phosphorus Magnesium Ferritin Alkaline Phosphatase Lactate Dehydrogenase Troponin T C-Reactive Protein Total Protein Albumin Yfwxw-2-Xvzammcap Snuem-8-Oueiujzgg Beta Globulins PEP Interpretation Triglycerides HDL Cholesterol TSH 0.109 L Arterial Blood Glucose Arterial Blood Ionized Calcium Urine WBC (Auto) Coronavirus (PCR) 07/01/21 07/01/21 07/01/21 04:00 04:00 05:15 WBC 11.3 H RBC 2.75 L Hgb 7.8 L Hct 23.9 L RDW 15.9 H Plt Count 50 L Lymph % (Auto) Lymph # (Auto) Seg Neutrophils % Seg Neuts % (Manual) Lymphocytes % (Manual) Nucleated RBC % Seg Neutrophils # Seg Neutrophils # Man Lymphocytes # (Manual) Monocytes # (Manual) PT INR APTT D-Dimer ABG pH POC ABG pCO2 POC ABG pO2 ABG pO2 ABG HCO3 ABG O2 Saturation ABG Base Excess ABG Hemoglobin ABG Oxyhemoglobin ABG Methemoglobin ABG Sodium ABG Potassium ABG Chloride ABG Glucose Oxyhemoglobin Carboxyhemoglobin Sodium 136 L Potassium 5.2 H Chloride 95.2 L Carbon Dioxide BUN 105 H Creatinine 4.7 H Glucose 178 H POC Glucose 173 H Hemoglobin A1c Calcium 8.0 L Phosphorus Magnesium Ferritin Alkaline Phosphatase Lactate Dehydrogenase Troponin T C-Reactive Protein Total Protein Albumin Klved-2-Ebibnvuuz Mxxvj-9-Lthjddlbl Beta Globulins PEP Interpretation Triglycerides HDL Cholesterol TSH Arterial Blood Glucose Arterial Blood Ionized Calcium Urine WBC (Auto) Coronavirus (PCR) 07/01/21 11:50 WBC RBC Hgb Hct RDW Plt Count Lymph % (Auto) Lymph # (Auto) Seg Neutrophils % Seg Neuts % (Manual) Lymphocytes % (Manual) Nucleated RBC % Seg Neutrophils # Seg Neutrophils # Man Lymphocytes # (Manual) Monocytes # (Manual) PT INR APTT D-Dimer ABG pH POC ABG pCO2 POC ABG pO2 ABG pO2 ABG HCO3 ABG O2 Saturation ABG Base Excess ABG Hemoglobin ABG Oxyhemoglobin ABG Methemoglobin ABG Sodium ABG Potassium ABG Chloride ABG Glucose Oxyhemoglobin Carboxyhemoglobin Sodium Potassium Chloride Carbon Dioxide BUN Creatinine Glucose POC Glucose 184 H Hemoglobin A1c Calcium Phosphorus Magnesium Ferritin Alkaline Phosphatase Lactate Dehydrogenase Troponin T C-Reactive Protein Total Protein Albumin Stylv-1-Auxzzfqwn Twpou-3-Vbalijtcm Beta Globulins PEP Interpretation Triglycerides HDL Cholesterol TSH Arterial Blood Glucose Arterial Blood Ionized Calcium Urine WBC (Auto) Coronavirus (PCR) Chest x-ray: image reviewed Allied health notes reviewed: nursing
[2021-07-01] MEDS ORDERED: LIPASE 10,500/PROTEASE 25,000/AMYLASE 43,750 (UNITS) DR CAP FEEDTUBE PRN (12:33)
[2021-07-01] MEDS ORDERED: SODIUM BICARBONATE 325 MG TAB FEEDTUBE PRN (12:33)
[2021-07-01] MEDS ORDERED: SIMPLE SYRUP 15 ML FEEDTUBE PRN ×2 (12:33)
[2021-07-01] MEDS ORDERED: SODIUM CHLORIDE 0.9% 1000 ML IV SOLN ONE (13:50)
[2021-07-01] MEDS ORDERED: SODIUM CHLORIDE 0.9% 500 ML IVPB ONE (13:50)
--- NOTE | 2021-07-01 14:00 | Progress Note ---
Assessment and Plan Patient is a 61 y/o female with a PMHx of HTN, hypothyroidism, CKD III, H/o DVT Acute hypoxic Respiratory failure Sepsis Breakthrough COVID PNA * Patient vaccinated with Memo and Memo * Patient intubated * COVID PCR positive * ID following * Pulmonlogy following Afib w/RVR Elevated troponins * Troponins minimally elevated and trending down 0.043->0.031. In setting of Sepsis secondary to PNA * Lexiscan MPI stress -11/03/2019-EF (30-39%), Stress/ECG changes are normal. This study suggests an intermediate risk for cardiovascular event and is associated with a cardiac mortality of 1-3% per year. There is a moderate defect of moderate intensity present in the basal anterior and mid anterior location. The defect is non-reversible (fixed). There is a moderate defect of moderate intensity present in the basal anteroseptal and mid anteroseptal location. The defect is non-reversible (fixed). There is a moderate defect of moderate intensity present in the apex location. The defect is non-reversible (fixed). * Echo 06/07/2021-EF 50 to 55%, right ventricle not well visualized, right ventricle systolic function is normal, left atrium is normal in size, right atrium is not well visualized, pulmonic valve not well visualized. * Telemetry reviewed: afib 100s. * Currently on diltiazem gtt TREMAINE * Nephrology following Thrombocytopenia * Hem/Onc following Plan: Continue holding anticoagulation due to thrombocytopenia Continue diltiazem gtt.Continue to titrate for HR and BP control Added hydralazine 50mg TID PO for BP control Patient seen in conjunction with Dr. Sam who agrees with this plan of care. Will see as needed over weekend - Patient Problems (1) Acute respiratory failure with hypoxia Current Visit: Yes Status: Acute (2) Acute kidney injury superimposed on CKD Current Visit: Yes Status: Acute (3) Elevated troponin Current Visit: Yes Status: Acute (4) History of DVT (deep vein thrombosis) Current Visit: Yes Status: Chronic (5) Diabetes mellitus type 2, insulin dependent Current Visit: Yes Status: Chronic (6) Hypothyroidism Current Visit: Yes Status: Chronic (7) Morbid obesity Current Visit: Yes Status: Chronic (8) TREMAINE (acute kidney injury) Current Visit: Yes Status: Acute (9) Pneumonia due to COVID-19 virus Current Visit: Yes Status: Acute (10) Leukocytosis (leucocytosis) Current Visit: No Status: Acute Qualifiers: Leukocytosis type: bandemia Qualified Code(s): D72.825 - Bandemia Subjective Date of service: 07/01/21 Principal diagnosis: ARDS; Pneumonia; COVID-19 virus infection; TREMAINE; DM II; Morbid obesity Interval history: Patient remains intubated and sedated afib 100s on monitor Objective Vital Signs Temp Pulse Pulse Resp BP Pulse Ox 07/01/21 13:01 105 H 14 172/85 92 07/01/21 12:00 103 H 11 L 205/83 94 07/01/21 11:00 96 H 22 206/77 94 07/01/21 10:00 89 30 H 171/67 95 07/01/21 09:00 82 30 H 131/53 96 07/01/21 08:00 103 H 14 200/83 95 07/01/21 07:28 98.2 F 07/01/21 07:00 89 30 H 191/68 96 07/01/21 06:00 104 H 16 204/82 97 07/01/21 05:00 86 30 H 125/50 98 07/01/21 04:00 105 H 14 220/81 96 07/01/21 03:36 99.7 F H 07/01/21 03:00 114 H 30 H 187/70 97 07/01/21 02:00 108 H 17 215/88 95 07/01/21 01:00 89 30 H 155/62 96 07/01/21 00:00 111 H 102 H 30 H 201/89 94 06/30/21 23:00 99.8 F H 97 H 25 H 151/64 96 06/30/21 22:00 108 H 22 212/87 93 06/30/21 21:00 101 H 20 118/70 95 06/30/21 20:27 102 H 17 173/73 94 06/30/21 20:00 108 H 119 H 23 202/88 94 06/30/21 19:39 99.5 F 06/30/21 19:00 104 H 21 183/68 92 06/30/21 18:00 94 H 21 163/63 96 06/30/21 17:00 108 H 32 H 158/62 93 06/30/21 16:25 104 H 201/74 93 06/30/21 16:00 99 H 103 H 17 203/73 92 06/30/21 15:00 104 H 16 211/79 92 06/30/21 14:00 83 30 H 116/57 97 - Physical Examination General: Other (intubated/sedated) HEENT: Positive: Normocephaly Neck: Positive: neck supple, trachea midline Cardiac: Positive: irregularly irregular Lungs: Positive: Ventilated Respirations Neuro: Positive: Other (intubated/sedated) Abdomen: Positive: Soft Skin: Negative: Rash Extremities: Present: lower extr. pulses. Absent: edema - Labs and Meds CBC 07/01/21 Range/Units 04:00 WBC 11.3 H (4.5-11.0) K/mm3 RBC 2.75 L (3.65-5.03) M/mm3 Hgb 7.8 L (10.1-14.3) gm/dl Hct 23.9 L (30.3-42.9) % Plt Count 50 L (140-440) K/mm3 Comprehensive Metabolic Panel 07/01/21 Range/Units 04:00 Sodium 136 L (137-145) mmol/L Potassium 5.2 H (3.6-5.0) mmol/L Chloride 95.2 L (98-107) mmol/L Carbon Dioxide 23 (22-30) mmol/L BUN 105 H (7-17) mg/dL Creatinine 4.7 H (0.6-1.2) mg/dL Glucose 178 H (65-100) mg/dL Calcium 8.0 L (8.4-10.2) mg/dL - Imaging and Cardiology EKG: report reviewed, image reviewed Echo: report reviewed (06/07/2021 - EF 50-55%, no significant valvular abnormalities) - EKG Sinus rhythms and dysrhythmias: sinus rhythm Ventricular dysrhythmias: ventricular premature com Chamber hypertrophy or enlargement: left ventricular hypertro - Allied health notes Allied health notes reviewed: nursing
[2021-07-01] MEDS: hydrALAZINE 25 MG TAB PO SCH ×2 (14:01→22:30)
[2021-07-01] MEDS: carvediloL 3.125 MG TAB PO SCH ×2 (14:02→22:31)
[2021-07-01] MEDS: dilTIAZem/D5W 100 MG/100 ML BAG IV SCH (14:03)
[2021-07-01] MEDS: fentaNYL 100 MCG/2 ML INJ IV PRN (14:05)
--- NOTE | 2021-07-01 16:02 | Progress Note ---
Assessment and Plan Cultures: SARS CoV2 PCR: positive 06/08/2021 blood culture: No growth Urine culture: skin ade. A/P: 76-year-old female with diabetes, hypertension, history of liver abscess, Klebsiella bacteremia admitted with fever, chills, shortness of breath: #Bilateral pneumonia: secondary to COVID-19. Unvaccinated. Chest x-ray revealed bilateral patchy multifocal pneumonia, CT chest, abdomen pelvis revealed no pulmonary embolism, showed bilateral pneumonia, no acute abnormality in the abdomen or pelvis. #Acute hypoxic respiratory failure: on the vent #DM #HTN #Thrombocytopenia #TREMAINE: Reanlly dose medications Recs: Currently on high-dose methylprednisone Completed Remdesivir prophylactic anticoagulation based on d-dimer per hospital protocol Complete 7 days cefepime trend ferritin, d-dimer, CRP every 2-3 days Radha Butler MD [facility] ([facility]) O: [phone] F: [phone] Subjective Date of service: 07/01/21 Principal diagnosis: ARDS; Pneumonia; COVID-19 virus infection; TREMAINE; DM II; Morbid obesity Interval history: Afebrile, white count 11.3. Objective - Exam Narrative Exam: Physical exam deferred to reduce risk of transmission of COVID-19. Please refer to primary team's note. - Constitutional Vitals: Vital Signs Temp Pulse Resp BP Pulse Ox 99.7 F H 86 28 H 114/53 92 07/01/21 14:45 07/01/21 15:30 07/01/21 15:00 07/01/21 15:30 07/01/21 15:00 Temperature -Last 24 Hours Temperature 99.7 F Temperature 98.2 F Temperature 99.7 F Temperature 99.8 F Temperature 99.5 F - Labs CBC & Chem 7: 07/01/21 04:00 07/01/21 04:00 Labs: Abnormal lab results 06/30/21 06/30/21 06/30/21 Range/Units 18:02 22:37 Unknown WBC (4.5-11.0) K/mm3 RBC (3.65-5.03) M/mm3 Hgb (10.1-14.3) gm/dl Hct (30.3-42.9) % RDW (13.2-15.2) % Plt Count (140-440) K/mm3 ABG pH (7.320-7.450) POC ABG pCO2 (32.0-48.0) mmHg POC ABG pO2 (83-108) mmHg ABG Hemoglobin (12.0-17.5) ABG Oxyhemoglobin (94-98) ABG Sodium (136.0-145.0) mmol/L ABG Potassium (3.40-4.50) mmol/L ABG Chloride (98-107) mmol/L ABG Glucose (65-95) mg/dL Sodium (137-145) mmol/L Potassium (3.6-5.0) mmol/L Chloride (98-107) mmol/L BUN (7-17) mg/dL Creatinine (0.6-1.2) mg/dL Glucose (65-100) mg/dL POC Glucose 156 H 159 H (70-105) mg/dL Calcium (8.4-10.2) mg/dL TSH 0.109 L (0.270-4.200) mlU/mL Arterial Blood Glucose (65-95) mg/dL 07/01/21 07/01/21 07/01/21 Range/Units 04:00 04:00 05:15 WBC 11.3 H (4.5-11.0) K/mm3 RBC 2.75 L (3.65-5.03) M/mm3 Hgb 7.8 L (10.1-14.3) gm/dl Hct 23.9 L (30.3-42.9) % RDW 15.9 H (13.2-15.2) % Plt Count 50 L (140-440) K/mm3 ABG pH (7.320-7.450) POC ABG pCO2 (32.0-48.0) mmHg POC ABG pO2 (83-108) mmHg ABG Hemoglobin (12.0-17.5) ABG Oxyhemoglobin (94-98) ABG Sodium (136.0-145.0) mmol/L ABG Potassium (3.40-4.50) mmol/L ABG Chloride (98-107) mmol/L ABG Glucose (65-95) mg/dL Sodium 136 L (137-145) mmol/L Potassium 5.2 H (3.6-5.0) mmol/L Chloride 95.2 L (98-107) mmol/L BUN 105 H (7-17) mg/dL Creatinine 4.7 H (0.6-1.2) mg/dL Glucose 178 H (65-100) mg/dL POC Glucose 173 H (70-105) mg/dL Calcium 8.0 L (8.4-10.2) mg/dL TSH (0.270-4.200) mlU/mL Arterial Blood Glucose (65-95) mg/dL 07/01/21 07/01/21 Range/Units 11:30 11:50 WBC (4.5-11.0) K/mm3 RBC (3.65-5.03) M/mm3 Hgb (10.1-14.3) gm/dl Hct (30.3-42.9) % RDW (13.2-15.2) % Plt Count (140-440) K/mm3 ABG pH 7.269 L (7.320-7.450) POC ABG pCO2 52.0 H (32.0-48.0) mmHg POC ABG pO2 76.7 L (83-108) mmHg ABG Hemoglobin 9.1 L (12.0-17.5) ABG Oxyhemoglobin 92 L (94-98) ABG Sodium 131.4 L (136.0-145.0) mmol/L ABG Potassium 5.3 H (3.40-4.50) mmol/L ABG Chloride 94.0 L (98-107) mmol/L ABG Glucose 205 H (65-95) mg/dL Sodium (137-145) mmol/L Potassium (3.6-5.0) mmol/L Chloride (98-107) mmol/L BUN (7-17) mg/dL Creatinine (0.6-1.2) mg/dL Glucose (65-100) mg/dL POC Glucose 184 H (70-105) mg/dL Calcium (8.4-10.2) mg/dL TSH (0.270-4.200) mlU/mL Arterial Blood Glucose 205 H (65-95) mg/dL
[2021-07-02] MEDS: fentaNYL DRIP Premix 2,000 MCG/100 ML BAG IV SCH ×6 (03:13→18:25)
[2021-07-02] MEDS: LACOSAMIDE 100 MG in SODIUM CHLORIDE 0.9% 100 ML IV SCH ×2 (03:21→15:06)
[2021-07-02] MEDS: hydrALAZINE 25 MG TAB PO SCH ×3 (05:53→22:10)
[2021-07-02] MEDS: LEVOTHYROXINE 100 MCG INJ IV SCH (05:54)
[2021-07-02] MEDS: INSULIN REGULAR, HUMAN 100 UNITS/1 ML SUB-Q SCH ×4 (05:58→18:26)
[2021-07-02 08:02] LABS: Hematocrit 25.4 % (30.3-42.9); Hemoglobin 8.3 gm/dl (10.1-14.3); Mean Corpuscular HGB Conc 33 % (30-34); Mean Corpuscular Volume 87 fl (79-97); Red Blood Count 2.91 M/mm3 (3.65-5.03); Red Cell Distribution Width 16.2 % (13.2-15.2)
[2021-07-02 08:07] LABS: Platelet Count 48 K/mm3 (140-440)
[2021-07-02 08:15] LABS: Calcium 8.7 mg/dL (8.4-10.2)
[2021-07-02] MEDS: NORepinephrine/NS 8 MG-250 ML 8 MG/250 ML INFUS..BTL IV SCH ×4 (08:45→23:43)
[2021-07-02] MEDS: ASCORBIC ACID 500 MG TAB PO SCH ×2 (09:27→22:09)
[2021-07-02] MEDS: DOCUSATE SODIUM 100 MG/10 ML ORAL LIQD PO SCH ×2 (09:27→22:07)
[2021-07-02] MEDS: SENNOSIDES/DOCUSATE SODIUM 8.6/50 MG TAB FEEDTUBE SCH ×2 (09:27→22:08)
[2021-07-02] MEDS: ZINC SULFATE 220 MG CAP PO SCH ×2 (09:27→22:09)
[2021-07-02] MEDS: METOCLOPRAMIDE 10 MG/2 ML INJ IV SCH ×3 (09:27→22:09)
[2021-07-02] MEDS: FAMOTIDINE 10 MG TAB FEEDTUBE SCH ×2 (09:27→22:09)
[2021-07-02] MEDS: methylPREDNISolone Sod Succinate 40 MG/1 ML INJ IV SCH ×2 (09:28→22:09)
--- NOTE | 2021-07-02 09:28 | XRay Report ---
CHEST 1 VIEW 07/02/2021 8:21 AM INDICATION / CLINICAL INFORMATION: Hypoxia. COMPARISON: 06/26/2021 FINDINGS: SUPPORT DEVICES: Stable, satisfactory device positioning. HEART / MEDIASTINUM: Stable. LUNGS / PLEURA: Diffuse bilateral airspace opacities are slightly improved. No pneumothorax. ADDITIONAL FINDINGS: No significant additional findings. IMPRESSION: 1. Slight interval improvement in diffuse bilateral airspace disease. Signer Name: Chi Gray MD Signed: 07/02/2021 9:24 AM Workstation Name: [id number]
[2021-07-02] MEDS: INSULIN NPH/REGULAR 70/30 INJ SUB-Q SCH ×2 (09:43→18:26)
--- NOTE | 2021-07-02 10:08 | Progress Note ---
Assessment and Plan COVID-19 breakthrough infection COVID-19 pneumonia Acute kidney injury possibly 2/2 prerenal/ATN, hypotension on underlying CKD Acute hypoxic respiratory failure Insulin-dependent type 2 diabetes- uncontrolled Elevated troponin Hypertension-controlled Hypothyroidism Protein calorie malnutrition Hypernatremia Plan Initiated on HD Sunday, HD yesterday, no HD today. S/p Right IJ Vas catheter placement on 06/24/21 Assess need for HD on daily basis Renal US was negative for hydronephrosis Intubated. In ICU. Renally dose medications Strict I&O's daily Subjective Date of service: 07/02/21 Principal diagnosis: ARDS; Pneumonia; COVID-19 virus infection; TREMAINE; DM II; Morbid obesity Interval history: Intubated. Tolerated HD yesterday. Objective - Exam Narrative Exam: - Exam Narrative Exam: Physical exam deferred to reduce risk of transmission of COVID-19. Please refer to primary team's note. - Vital Signs Vital signs: Vital Signs - 12hr 07/01/21 07/01/21 07/01/21 22:15 22:30 22:31 Temperature Pulse Rate 73 73 72 Respiratory 30 H 29 H Rate Blood Pressure 92/35 90/35 90/35 O2 Sat by Pulse 98 98 Oximetry 07/01/21 07/01/21 07/01/21 22:45 23:00 23:15 Temperature Pulse Rate 74 72 74 Respiratory 30 H 30 H 30 H Rate Blood Pressure 93/35 89/35 97/35 O2 Sat by Pulse 98 98 98 Oximetry 07/01/21 07/01/21 07/01/21 23:29 23:30 23:45 Temperature Pulse Rate 72 72 70 Respiratory 30 H 30 H Rate Blood Pressure 89/35 93/34 90/37 O2 Sat by Pulse 98 98 98 Oximetry 07/01/21 07/02/21 07/02/21 23:49 00:00 00:16 Temperature 98.7 F Pulse Rate 73 95 H Respiratory 30 H 31 H Rate Blood Pressure 95/37 143/68 O2 Sat by Pulse 98 99 Oximetry 07/02/21 07/02/21 07/02/21 00:30 00:45 01:00 Temperature Pulse Rate 105 H 96 H 92 H Respiratory 30 H 29 H 30 H Rate Blood Pressure 142/67 162/69 151/62 O2 Sat by Pulse 99 98 98 Oximetry 07/02/21 07/02/2121 01:15 01:30 01:45 Temperature Pulse Rate 94 H 77 79 Respiratory 30 H 30 H 30 H Rate Blood Pressure 142/58 120/43 99/39 O2 Sat by Pulse 98 97 96 Oximetry 07/02/21 07/02/21 07/02/21 02:00 02:15 02:30 Temperature Pulse Rate 75 74 89 Respiratory 30 H 30 H 30 H Rate Blood Pressure 91/38 93/37 132/58 O2 Sat by Pulse 96 97 97 Oximetry 07/02/21 07/02/21 07/02/21 02:45 03:00 03:15 Temperature Pulse Rate 92 H 95 H 97 H Respiratory 30 H 29 H 30 H Rate Blood Pressure 147/65 156/67 151/67 O2 Sat by Pulse 98 98 98 Oximetry 07/02/21 07/02/21 07/02/21 03:30 03:42 03:45 Temperature 98.4 F Pulse Rate 85 77 Respiratory 30 H 30 H Rate Blood Pressure 151/55 102/39 O2 Sat by Pulse 98 97 Oximetry 07/02/21 07/02/21 07/02/21 04:00 04:05 04:15 Temperature Pulse Rate 79 93 H 88 Respiratory 30 H 30 H Rate Blood Pressure 119/47 119/47 155/60 O2 Sat by Pulse 91 98 98 Oximetry 07/02/21 07/02/21 07/02/21 04:30 04:45 05:00 Temperature Pulse Rate 89 78 73 Respiratory 25 H 26 H 25 H Rate Blood Pressure 132/61 134/45 102/39 O2 Sat by Pulse 93 93 91 Oximetry 07/02/21 07/02/21 07/02/21 05:15 05:30 05:45 Temperature Pulse Rate 77 87 92 H Respiratory 25 H 25 H 25 H Rate Blood Pressure 113/41 154/66 O2 Sat by Pulse 91 87 89 Oximetry 07/02/21 07/02/21 07/02/21 05:53 06:00 06:15 Temperature Pulse Rate 104 H 89 78 Respiratory 24 25 H Rate Blood Pressure 154/66 181/64 129/49 O2 Sat by Pulse 96 95 Oximetry 07/02/21 07/02/21 07/02/21 06:30 06:45 07:00 Temperature 97.8 F Pulse Rate 76 73 89 Respiratory 25 H 25 H 23 Rate Blood Pressure 139/46 132/43 176/73 O2 Sat by Pulse 95 95 90 Oximetry 07/02/21 07/02/21 07/02/21 07:15 07:30 07:46 Temperature Pulse Rate 108 H 97 H 104 H Respiratory 29 H 22 27 H Rate Blood Pressure 175/71 150/69 154/60 O2 Sat by Pulse 84 79 L 84 Oximetry 07/02/21 07/02/21 07/02/21 08:00 08:15 08:30 Temperature Pulse Rate 114 H 103 H 93 H Respiratory 28 H 21 24 Rate Blood Pressure 159/52 130/54 130/54 O2 Sat by Pulse 78 L 75 L 87 Oximetry 07/02/21 07/02/21 08:45 09:00 Temperature Pulse Rate 77 83 Respiratory 30 H 30 H Rate Blood Pressure 48/23 79/30 O2 Sat by Pulse 82 L 87 Oximetry - Lab 07/02/21 07:47 07/02/21 07:47 Most recent lab results ABG pH 7.269 (7.320-7.450) L 07/01/21 11:30 ABG pCO2 64.0 mm Hg 06/27/21 Unknown ABG pO2 92.0 mm Hg (80.0-90.0) H 06/27/21 Unknown ABG HCO3 26.2 mmol/L (20.0-26.0) H 06/27/21 Unknown ABG O2 Saturation 93.3 (0-100) 07/01/21 11:30 Calcium 8.7 mg/dL (8.4-10.2) 07/02/21 07:47 Phosphorus 6.80 mg/dL (2.5-4.5) H D 06/28/21 04:25 Magnesium 2.30 mg/dL (1.7-2.3) 06/28/21 04:25 Medications & Allergies - Medications Allergies/Adverse Reactions: Allergies latex Allergy (Verified 03/19/19 17:03) Unknown shellfish derived Allergy (Verified 03/19/19 17:03) Anaphylaxis strawberry Allergy (Verified 03/19/19 17:03) Anaphylaxis tomato Allergy (Verified 03/19/19 17:03) Anaphylaxis nuts Allergy (Uncoded 03/19/19 17:03) Anaphylaxis Home Medications: Home Medications Medication Instructions Recorded Confirmed Last Taken Type Albuterol Sulfate [Ventolin HFA] 2 puff IH Q4H PRN 01/29/14 06/11/21 02/01/15 History Levothyroxine (Nf) [Synthroid (Nf)] 275 mcg PO QAM 01/29/14 06/11/21 02/01/15 History Fluticasone/Salmeterol [Advair 1 each IH PRN PRN 01/26/15 06/11/21 02/02/15 10:00 History Diskus 250-50 mcg] Apixaban [Eliquis starter pack] 5 mg PO BID 09/13/19 06/11/21 Unknown History Insulin Aspart Prot/Insuln Asp 45 unit SUB-Q QAM 09/13/19 06/11/21 Unknown History [Novolog Mix 70-30 Flexpen] Insulin Glargine,Hum.rec.anlog 25 unit SQ HS 09/13/19 06/11/21 Unknown History [Basaglar Kwikpen U-100] Lovastatin [Altoprev] 20 mg PO DAILY 09/13/19 06/11/21 Unknown History Docusate Sodium [Colace CAP] 100 mg PO BID PRN #30 capsule 09/17/19 06/11/21 Unknown Rx Loratadine/Pseudoephedrine 1 each PO Q24HR #10 tablet 09/17/19 06/11/21 Unknown Rx [Claritin-D 24HR] Ondansetron [Zofran Odt] 4 mg PO Q8HR #20 tab.rapdis 09/17/19 06/11/21 Unknown Rx carvediloL [Coreg] 3.125 mg PO BID #60 tablet 09/17/19 06/11/21 Unknown Rx hydrALAZINE [Apresoline TAB] 25 mg PO Q8HR #90 tablet 09/17/19 06/11/21 Unknown Rx Active Medications: Generic Name Dose Route Start Last Admin Trade Name Freq PRN Reason Stop Dose Admin Acetaminophen 650 mg 06/07/21 21:41 06/24/21 11:45 Acetaminophen 325 Mg Tab PO 650 mg Q4H PRN Administration Pain MILD(1-3)/Fever >100.5/MARTÍNEZ Albumin Human 25 gm 06/24/21 14:55 06/27/21 17:47 Albumin Human 25% (25 Gm/100 Ml) Inj IV 25 gm KORINA PRN Administration Hypotension Albuterol 2 mg 06/23/21 09:00 Albuterol 2.5 Mg/3 Ml Nebu IH Q4HRT PRN Shortness Of Breath Lipase/Protease/Amylase 1 each 06/28/21 12:15 Lipase 10,500/Protease 25,000/Amylase 43,750 (Units) Dr Cap FEEDTUBE PRN PRN For Clogged Feeding Tube Ascorbic Acid 500 mg 06/22/21 22:00 07/02/21 09:27 Ascorbic Acid 500 Mg Tab PO 500 mg BID LEONOR Administration Atorvastatin Calcium 10 mg 06/08/21 10:00 07/02/21 09:28 Atorvastatin 10 Mg Tab PO 10 mg DAILY LEONOR Administration Bisacodyl 10 mg 07/02/21 10:00 07/02/21 09:27 Bisacodyl 10 Mg Rect Supp CO 10 mg QDAY LEONOR Administration Carvedilol 3.125 mg 07/01/21 13:00 07/01/21 22:31 Carvedilol 3.125 Mg Tab PO Not Given BID LEONOR Dextrose 50 ml 06/08/21 12:04 06/20/21 12:16 Dextrose 50% In Water (25gm) 50 Ml Syringe IV 50 ml Q30MIN PRN Administration Hypoglycemia Protocol Docusate Sodium 100 mg 06/29/21 22:00 07/02/21 09:27 Docusate Sodium 100 Mg/10 Ml Oral Liqd PO 100 mg BID LEONOR Administration Famotidine 10 mg 07/01/21 10:00 07/02/21 09:27 Famotidine 10 Mg Tab FEEDTUBE 10 mg BID LEONOR Administration Hydralazine HCl 50 mg 07/01/21 14:00 07/02/21 05:53 Hydralazine 25 Mg Tab PO 50 mg Q8HR LEONOR Administration Hydrophilic Ointment 1 applic 06/22/21 13:07 Lip Therapy Vaseline TP Q2HR PRN Dry Lips Fentanyl Citrate 2,000 mcg in 100 mls @ 8.2 mls/hr 06/22/21 14:00 07/02/21 09:00 Fentanyl Drip Premix IV 4 mcg/kg/hr TITR LEONOR 32.8 mls/hr Administration Protocol 1 MCG/KG/HR NORepinephrine/NS 8 MG-250 ML 8 mg in 250 mls @ 3.75 mls/hr 06/22/21 15:00 07/02/21 08:45 Norepinephrine/Ns 8 Mg-250 Ml (Double Conc) IV 2 mcg/min TITRATE LEONOR 3.75 mls/hr Administration Protocol 2 MCG/MIN Vasopressin 20 unit/ Sodium 101 mls @ 9.09 mls/hr 06/23/21 09:00 06/25/21 16:25 Chloride IV 0 units/min TITR LEONOR 0 mls/hr Titration Protocol 0.03 UNITS/MIN Sodium Chloride 500 mls @ 1 mls/hr 06/23/21 11:19 Nacl 0.9% 500 Ml IV DIRECT PRN ARTERIAL LINE FLUSH Lacosamide 100 mg/ Sodium 110 mls @ 100 mls/hr 06/23/21 15:00 07/02/21 03:21 Chloride IV 100 mls/hr Q12H LEONOR Administration Diltiazem HCl 100 mg in 100 mls @ 7.5 mls/hr 06/28/21 10:15 07/02/21 08:35 Cardizem/D5w 100mg/100ml IV 0 mg/hr TITR LEONOR 0 mls/hr Titration Protocol 7.5 MG/HR Sodium Chloride 100 mls @ 999 mls/hr 06/28/21 16:00 Nacl 0.9% IV KORINA PRN Hypotension Insulin Human Isoph/Insulin Regular 30 unit 06/29/21 17:00 07/02/21 09:43 Insulin Nph/Regular 70/30 Inj SUB-Q 30 unit BIDDIAB [facility] Administration Insulin Human Regular 0 units 06/22/21 18:00 07/02/21 05:58 Insulin Regular, Human 100 Units/1 Ml SUB-Q Not Given Q6HR [facility] Protocol Levothyroxine Sodium 137.5 mcg 06/23/21 06:00 07/02/21 05:54 Levothyroxine 100 Mcg Inj IV 137.5 mcg DAILY@0600 LEONOR Administration Methylprednisolone Sodium Succinate 40 mg 07/02/21 10:00 07/02/21 09:28 Methylprednisolone Sod Succinate 40 Mg/1 Ml Inj IV 07/02/21 22:01 40 mg Q12HR LEONOR Administration Methylprednisolone Sodium Succinate 20 mg 07/03/21 10:00 Methylprednisolone Sod Succinate 40 Mg/1 Ml Inj IV 07/03/21 22:01 Q12HR LEONOR Methylprednisolone Sodium Succinate 20 mg 07/04/21 10:00 Methylprednisolone Sod Succinate 40 Mg/1 Ml Inj IV 07/05/21 10:01 Q24HR [facility] Metoclopramide HCl 5 mg 07/02/21 08:00 07/02/21 09:27 Metoclopramide 10 Mg/2 Ml Inj IV 07/06/21 07:59 5 mg Q8HR LEONOR Administration Midazolam HCl 5 mg 06/26/21 16:00 07/02/21 08:22 Midazolam 5 Mg/5 Ml Inj Mdv IV 07/06/21 23:59 2 mg PRN NR Administration Multi-Ingred Cream/Lotion/Oil/Oint 1 applic 06/22/21 13:07 Mineral Oil/Petrolatum, White Ophth Oint 3.5 Gm OU Q4HR PRN Dry Eye(s) Ondansetron HCl 4 mg 06/07/21 21:41 06/20/21 22:15 Ondansetron 4 Mg/2 Ml Inj IV 4 mg Q8H PRN Administration Nausea And Vomiting Polyethylene Glycol 17 gm 06/29/21 18:00 07/01/21 10:54 Polyethylene Glycol 3350 17 Gm Powder PO 17 gm QDAY LEONOR Administration Senna/Docusate Sodium 1 tab 06/22/21 22:00 07/02/21 09:27 Sennosides/Docusate Sodium 8.6/50 Mg Tab FEEDTUBE 1 tab BID LEONOR Administration Simple Syrup 15 ml 06/28/21 12:15 Simple Syrup 15 Ml FEEDTUBE PRN PRN Hypoglycemia Simple Syrup 30 ml 06/28/21 12:15 Simple Syrup 15 Ml FEEDTUBE PRN PRN Hypoglycemia Sodium Bicarbonate 325 mg 06/28/21 12:15 Sodium Bicarbonate 325 Mg Tab FEEDTUBE PRN PRN For Clogged Feeding Tube Sodium Chloride 10 ml 06/07/21 22:00 07/01/21 22:32 Sodium Chloride 0.9% 10 Ml Flush Syringe IV 10 ml BID LEONOR Administration Sodium Chloride 10 ml 06/07/21 21:41 Sodium Chloride 0.9% 10 Ml Flush Syringe IV PRN PRN LINE FLUSH Zinc Sulfate 220 mg 06/22/21 22:00 07/02/21 09:27 Zinc Sulfate 220 Mg Cap PO 220 mg BID LEONOR Administration
[2021-07-02] MEDS: POLYETHYLENE GLYCOL 3350 17 GM POWDER PO SCH (12:24)
[2021-07-02] MEDS: carvediloL 3.125 MG TAB PO SCH ×2 (12:24→22:09)
--- NOTE | 2021-07-02 13:16 | Event Note ---
Date: 07/02/21 I had a goals of care discussion with the patient's Mr. Dane Zimmerman via phone. We talked about her overall prognosis and the possibility that she may not survive this hospitalization. It was advised that she be made DNR in the event of an arrest. He wishes to continue full CODE STATUS. We will continue with full scope of care.
--- NOTE | 2021-07-02 13:50 | Progress Note ---
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 Hospital Course to Date: 06/27/21- Patient remains intubated and sedated on fent gtt, RASS -2 to -3, not following any commands. Afib with RVR overnight was started on amio gtt, no BM for over 7days, bowel regimen was adjusted and reglan was added. Remains on high dose steroids, will start weaning steroids to twice a day starting tomorrow. Electrolytes imbalance noted with worsening in renal function, plan for HD today. 1jumbo of plt ordered for worsening throbocytopenia. Continue t o monitor electrolytes and renal function, am labs ordered. 06/28/21- Patient status is unchanged, remains on the vent and on low dose fentanyl. Plt still less than 50 s/p 1unit of plt, ddtional 1 unit of plt ordered. Afib with RVR this am, d/w cardio plan to switch amio gtt to cardizem gtt for rate control. Patient remains hyperglycemic adjustment made to basal insulin. will continue to monitor, am labs ordered 06/29/21- Patient status is unchanged, on the vent and on fentanyl gtt, arousable but does not follow commands with +gag and cough. Remains of the cardizem gtt for rate control, off pressors. Platelet 45 this am, 1unit of platelets orderd. Plan for HD today per Nephro. Continue to monitor renal f unction and electrolytes. 06/30/21- Patient remains intubated on fentynal gtt RASS 0 to -1. on cardizem gtt for rate control, more control this morning, HR 90 to low 100s. Patient is still with high gastric residual but no vomiting, continue enteral nutrition and follow facility protocol. Still no BM, will add supp PRN, continue reglan IV. Plt improved to 72 this am, no need for transfusion however will continue to hold AC at this time. 07/01/21- Patient is intubated and on the vent on MAX fentanyl, RASS 0 to -1. Open eyes spontaneously but does not follow any commands. Remains on cardizem gtt per Cardio, ST on monitor this am with hypertension. Will d/w Cardio for further recs for BP and rate control. Midodrine has been on hold due to high BP. Plan for HD today per Nephro. Still no BM, suppositoy scheduled, no vomiting reported, patient with hypoactive bowel sounds. Continue IV reglan and BR. Plan to taper off steroids 07/02/21- Patient is on vent support. Patient decompensated this am, low SPO2 in the 70s, MAP dropped in the 30 required high pressors and an increased in ventilatory support. Stat CXR showed slight interval improvement in diffuse bila teral airspace disease, ETT noted above the clavicles was advanced 3 to 4 cm. Inflammatory markers are increased from prior, BLE doppler ordered to R/O DVT, and limited echo was also ordered to eval. pulmonary pressures. Borderline low plt noted this am, hold on transfusion for today will f/u in the am Assessment and Plan #Neuro: Seizure, acute metabolic encephalopathy -Witnessed seizure (06/23/2021) -06/26 CT head with no acute findings -EEG report pending -Continue Vimpat 100 mg twice daily in the setting of worsening renal function -Neurology consulted, appreciate recommendations -Aspiration/seizure precautions -Sedated with fentanyl for RASS goal of 0 to -1 #Cardio: Atrial Fibrilation #Hypotension #H/o CAD -Afib RVR 110 to 120 -amio gtt D/C, Per Cardio plan to transition to cardizem gtt for rate control, D/C -Hold antihypertensive at this time in the setting of hypotension- held today due to hypotension -Pressors initiated due to hypotrension -Titrate vasopressor for MAP goal >65 -Continue home statin -midodrine D/C due to HTN -AC on hold due to bleed and low plt - Elevated inflammatory markers today - BLE doppler pending to R/O DVT - and Limited echo ordered for pulmonary pressure eval. #Respiratory: Acute hypoxic respiratory failure, ARDS 2/2 COVID 19 PNA -06/22 intubated with 7.50 ETT at 23 at the lips - 07/02 ETT noted above clavicles from CXR, ETT advanced to 3 to 4 cm -Vent setting: A/C 100%,18,30,450 -Remain acidotic from this am ABGs, d/w CCM vent changes made -Still on high dose steriods, start weaning steroids today -Wean FiO2 as tolerated for SPO2 above 90% -Continue daily serial ABGs and CXR #GI: MO, protein calorie malnutrition -Reglan added on 06/27 to promote peristalsis -Last BM on 06/14 -Continue BR: Senokot, colace, Miralax, added suppository -Continue enteral nutrition as tolerated -consider KUB if patient start having emesis -Continue PPI- Pepcid #: CKD stage III #hyperkalemia; hyperphosphatemia #metabolic acidosis -Nephrology consulted, appreciate recommendations -Hemodialysis initiated status post placement of access; last received on 06/25/2021 -Electrolytes imbalance improved -last HD on 06/27- 1L out -Continue HD management per Nephro -Renally dosed medications and avoid nephrotoxic medications #Heme: h/o DVT, coagulopathy of COVID #Thrombocytopenia -Patient was on Eliquis which was discontinued and converted to therapeutic Lovenox -Lovenox was switched to Heparin in the setting of worsening renal function -Bilateral lower extremity Doppler ultrasound completed-> no acute DVT -Transitioned to Eliquis for anticoagulation in the setting of worsening thrombocytopenia, now on hold due to bleeding from ETT - Plt 45 today s/p 3 unit of plt; - borderline low plt today, hold transfusiom for today -HEME on consult, appreciate recommendations -HIT assay neg -SCDs to bilateral directions while in bed -Trend CBC daily -Transfuse for hemoglobin less than 7 and plt less than 50 #ID: Sepsis, COVID-19 pneumonia -Infectious disease consulted, appreciate recommendations -S/p steroids for 10 days; S/p remdesivir -Still on high dose steroids -Vitamin C/zinc/vitamin D -contact/droplet isolation precautions -Trend COVID-19 inflammatory markers every 2-3 days -Currently on cefepime and vancomycin #Endo: Hyperglycemia; #H/o insulin-dependent diabetes #Hypothyroidism -Continue IV levothyroxine 200 mcg -On high dose steroids -Accu-Cheks every 6 hours; on high dose SSI -Adjusted NPH BID for better glucose control -Goal glucose 140-180 while critically ill The high probability of a clinically significant, sudden or life threatening deterioration of the [cardio, respiratory, Endo] system(s) required my full and direct attention, intervention and personal management. The aggregate critical care time was [60] minutes. This time is in addition to time spent performing reported procedures but includes the following: [x] Data Review and interpretation [x] Patient assessment and monitoring of vital signs [x] Documentation [x] Medication orders and management Disposition Plan: Continue medical management Total Time Spent with Patient (Minutes): 60 History Interval history: Patient seen and examined. Remains intubated and sedated on fent gtt. Decompensated this am low SPo2 in the 70s and MAP in the 30s requiring pressors and increased in vent setting. No significant events happened overnight Hospitalist Physical - Constitutional Vitals: Temp Pulse Resp BP Pulse Ox 98.1 F 101 H 31 H 106/51 92 07/02/21 12:08 07/02/21 13:45 07/02/21 13:45 07/02/21 13:45 07/02/21 13:45 General appearance: Present: no acute distress, well-nourished, obese - EENT Eyes: Present: PERRL ENT: hearing intact - Respiratory Respiratory effort: normal Respiratory: bilateral: rhonchi - Cardiovascular Rhythm: irregularly irregular Heart Sounds: Present: S1 & S2 - Extremities Extremities: no ischemia, pulses intact, pulses symmetrical Extremity abnormal: edema - Peripheral Assessment Generalized Edema Type: Non-pitting Edema Degree: 1+ Capillary Refill: < 3 seconds Skin Temperature: Warm Peripheral Pulses: within normal limits - Abdominal General gastrointestinal: soft, non-tender, hypoactive bowel sounds - Integumentary Integumentary: Present: clear, warm, dry - Psychiatric Psychiatric: other (MIKHAIL) - Neurologic Neurologic: other (MIKHAIL) - Allied Health Allied health notes reviewed: nursing HEART Score - HEART Score EKG: Non-specific Age: 45-65 Risk factors: 1-2 risk factors Troponin: Troponin T 0.021 ng/mL (0.00-0.029) 06/08/21 13:49 - Critical Actions Critical Actions: 0-3 pts:0.9-1.7%risk of adverse cardiac event.Candidate for discharge Results - Labs CBC & Chem 7: 07/02/21 07:47 07/02/21 07:47 Labs: Laboratory Last Values WBC 7.5 K/mm3 (4.5-11.0) 07/02/21 07:47 RBC 2.91 M/mm3 (3.65-5.03) L 07/02/21 07:47 Hgb 8.3 gm/dl (10.1-14.3) L 07/02/21 07:47 Hct 25.4 % (30.3-42.9) L 07/02/21 07:47 MCV 87 fl (79-97) 07/02/21 07:47 MCH 29 pg (28-32) 07/02/21 07:47 MCHC 33 % (30-34) 07/02/21 07:47 RDW 16.2 % (13.2-15.2) H 07/02/21 07:47 Plt Count 48 K/mm3 (140-440) L 07/02/21 07:47 Lymph % (Auto) 7.6 % (13.4-35.0) L 06/28/21 04:25 [place] % (Auto) 5.6 % (0.0-7.3) 06/28/21 04:25 Eos % (Auto) 0.0 % (0.0-4.3) 06/28/21 04:25 Baso % (Auto) 0.1 % (0.0-1.8) 06/28/21 04:25 Lymph # (Auto) 0.9 K/mm3 (1.2-5.4) L 06/28/21 04:25 [place] # (Auto) 0.7 K/mm3 (0.0-0.8) 06/28/21 04:25 Eos # (Auto) 0.0 K/mm3 (0.0-0.4) 06/28/21 04:25 Baso # (Auto) 0.0 K/mm3 (0.0-0.1) 06/28/21 04:25 Add Manual Diff Complete 06/27/21 06:40 Total Counted 100 06/24/21 04:55 Seg Neutrophils % 86.7 % (40.0-70.0) H 06/28/21 04:25 Seg Neuts % (Manual) 68.0 % (40.0-70.0) 06/24/21 04:55 Band Neutrophils % 23.0 % 06/24/21 04:55 Lymphocytes % (Manual) 1.0 % (13.4-35.0) L 06/24/21 04:55 Monocytes % (Manual) 6.0 % (0.0-7.3) 06/23/21 04:42 Eosinophils % (Manual) 2.0 % (0.0-4.3) 06/23/21 04:42 Metamyelocytes % 2.0 % 06/10/21 23:14 Myelocytes % 8.0 % 06/24/21 04:55 Nucleated RBC % Not Reportable 06/27/21 06:40 Seg Neutrophils # 10.0 K/mm3 (1.8-7.7) H 06/28/21 04:25 Seg Neutrophils # Man 12.7 K/mm3 (1.8-7.7) H 06/24/21 04:55 Band Neutrophils # 4.3 K/mm3 06/24/21 04:55 Lymphocytes # (Manual) 0.2 K/mm3 (1.2-5.4) L 06/24/21 04:55 Abs React Lymphs (Man) 0.0 K/mm3 06/24/21 04:55 Monocytes # (Manual) 0.0 K/mm3 (0.0-0.8) 06/24/21 04:55 Eosinophils # (Manual) 0.0 K/mm3 (0.0-0.4) 06/24/21 04:55 Basophils # (Manual) 0.0 K/mm3 (0.0-0.1) 06/24/21 04:55 Metamyelocytes # 0.0 K/mm3 06/24/21 04:55 Myelocytes # 1.5 K/mm3 06/24/21 04:55 Promyelocytes # 0.0 K/mm3 06/24/21 04:55 Blast Cells # 0.0 K/mm3 06/24/21 04:55 WBC Morphology Not Reportable 06/27/21 06:40 Hypersegmented Neuts Not Reportable 06/27/21 06:40 Hyposegmented Neuts Not Reportable 06/27/21 06:40 Hypogranular Neuts Not Reportable 06/27/21 06:40 Smudge Cells Not Reportable 06/27/21 06:40 Toxic Granulation Not Reportable 06/27/21 06:40 Toxic Vacuolation Not Reportable 06/27/21 06:40 Dohle Bodies Not Reportable 06/27/21 06:40 Pelger-Huet Anomaly Not Reportable 06/27/21 06:40 Nba Rods Not Reportable 06/27/21 06:40 Platelet Estimate 30 06/27/21 06:40 Clumped Platelets Not Reportable 06/27/21 06:40 Plt Clumps, EDTA Not Reportable 06/27/21 06:40 Large Platelets 1+ 06/27/21 06:40 Giant Platelets Not Reportable 06/27/21 06:40 Platelet Satelliting Not Reportable 06/27/21 06:40 Plt Morphology Comment Not Reportable 06/27/21 06:40 RBC Morphology Not Reportable 06/27/21 06:40 Dimorphic RBCs Not Reportable 06/27/21 06:40 Polychromasia Not Reportable 06/27/21 06:40 Hypochromasia Not Reportable 06/27/21 06:40 Poikilocytosis Not Reportable 06/27/21 06:40 Anisocytosis Not Reportable 06/27/21 06:40 Microcytosis Not Reportable 06/27/21 06:40 Macrocytosis Not Reportable 06/27/21 06:40 Spherocytes Not Reportable 06/27/21 06:40 Pappenheimer Bodies Not Reportable 06/27/21 06:40 Sickle Cells Not Reportable 06/27/21 06:40 Target Cells Not Reportable 06/27/21 06:40 Tear Drop Cells Not Reportable 06/27/21 06:40 Ovalocytes Not Reportable 06/27/21 06:40 Helmet Cells Not Reportable 06/27/21 06:[address] [place] Bodies Not Reportable 06/27/21 06:40 [place] Rings Not Reportable 06/27/21 06:40 Barbie Cells Not Reportable 06/27/21 06:40 Bite Cells Not Reportable 06/27/21 06:40 Crenated Cell Not Reportable 06/27/21 06:40 Elliptocytes 1+ 06/27/21 06:40 Acanthocytes (Spur) Not Reportable 06/27/21 06:40 Rouleaux Not Reportable 06/27/21 06:40 Hemoglobin C Crystals Not Reportable 06/27/21 06:40 Schistocytes Not Reportable 06/27/21 06:40 Malaria parasites Not Reportable 06/27/21 06:40 Luis Bodies Not Reportable 06/27/21 06:40 Hem Pathologist Commnt No 06/27/21 06:40 PT 16.7 Sec. (12.2-14.9) H 06/30/21 04:30 INR 1.22 (0.87-1.13) H 06/30/21 04:30 APTT 27.3 Sec. (24.2-36.6) 06/30/21 04:30 Fibrinogen 316 mg/dl (211-480) 06/30/21 04:30 D-Dimer > 34718 ng/mlDDU (0-234) H 07/02/21 09:40 Heparin Anti-Xa, Unfract Negative (Negative) 06/25/21 17:55 ABG pH 7.269 (7.320-7.450) L 07/01/21 11:30 POC ABG pCO2 52.0 mmHg (32.0-48.0) H 07/01/21 11:30 ABG pCO2 64.0 mm Hg 06/27/21 Unknown POC ABG pO2 76.7 mmHg (83-108) L 07/01/21 11:30 ABG pO2 92.0 mm Hg (80.0-90.0) H 06/27/21 Unknown POC ABG HCO3 23.3 07/01/21 11:30 ABG HCO3 26.2 mmol/L (20.0-26.0) H 06/27/21 Unknown ABG O2 Saturation 93.3 (0-100) 07/01/21 11:30 ABG O2 Content 11.1 (0.0-44) 06/27/21 Unknown POC ABG Base Excess -3.7 07/01/21 11:30 ABG Base Excess -1.7 mmol/L (-2.0-3.0) 06/27/21 Unknown ABG Hemoglobin 9.1 (12.0-17.5) L 07/01/21 11:30 ABG Oxyhemoglobin 92 (94-98) L 07/01/21 11:30 ABG Carboxyhemoglobin 1.7 % (0.0-5.0) 06/27/21 Unknown ABG Methemoglobin 0.3 (0.0-1.5) 07/01/21 11:30 ABG Sodium 131.4 mmol/L (136.0-145.0) L 07/01/21 11:30 ABG Potassium 5.3 mmol/L (3.40-4.50) H 07/01/21 11:30 ABG Chloride 94.0 mmol/L (98-107) L 07/01/21 11:30 ABG Glucose 205 mg/dL (65-95) H 07/01/21 11:30 Oxyhemoglobin 94.6 % (95.0-99.0) L 06/27/21 Unknown Carboxyhemoglobin 1.1 (0.5-1.5) 07/01/21 11:30 FiO2 75 % 06/27/21 Unknown FiO2 % 90 07/01/21 11:30 Sodium 136 mmol/L (137-145) L 07/02/21 07:47 Potassium 4.5 mmol/L (3.6-5.0) 07/02/21 07:47 Chloride 96.2 mmol/L (98-107) L 07/02/21 07:47 Carbon Dioxide 25 mmol/L (22-30) 07/02/21 07:47 Anion Gap 19 mmol/L 07/02/21 07:47 BUN 90 mg/dL (7-17) H 07/02/21 07:47 Creatinine 3.8 mg/dL (0.6-1.2) H 07/02/21 07:47 Estimated GFR 15 ml/min 07/02/21 07:47 BUN/Creatinine Ratio 24 % 07/02/21 07:47 Glucose 147 mg/dL (65-100) H 07/02/21 07:47 POC Glucose 103 mg/dL (70-105) 07/02/21 11:44 Hemoglobin A1c 9.5 % (4-6) H 06/07/21 19:11 Calcium 8.7 mg/dL (8.4-10.2) 07/02/21 07:47 Phosphorus 6.80 mg/dL (2.5-4.5) H D 06/28/21 04:25 Magnesium 2.30 mg/dL (1.7-2.3) 06/28/21 04:25 Ferritin 1159.0 ng/mL (10.0-200.0) H 07/02/21 09:40 Total Bilirubin 0.50 mg/dL (0.1-1.2) 06/29/21 04:34 AST 22 units/L (5-40) 06/29/21 04:34 ALT 23 units/L (7-56) 06/29/21 04:34 Alkaline Phosphatase 132 units/L (35-129) H 06/29/21 04:34 Lactate Dehydrogenase 618 units/L (91-180) H 07/02/21 09:40 Troponin T 0.021 ng/mL (0.00-0.029) 06/08/21 13:49 C-Reactive Protein 2.00 mg/dL (0.00-1.30) H 07/02/21 09:40 Serum Total Protein 7.0 g/dL (6.1-8.1) 06/10/21 23:14 Total Protein 6.0 g/dL (6.3-8.2) L 06/29/21 04:34 Albumin 3.3 g/dL (3.9-5) L 06/29/21 04:34 Albumin/Globulin Ratio 1.2 % 06/29/21 04:34 Jwjgs-0-Wpavsjmgi 0.5 g/dL (0.2-0.3) H 06/10/21 23:14 Tlgyz-4-Ypipzmoli 1.7 g/dL (0.5-0.9) H 06/10/21 23:14 Beta Globulins 0.6 g/dL (0.2-0.5) H 06/10/21 23:14 Gamma Globulins 1.3 g/dL (0.8-1.7) 06/10/21 23:14 Abnorm Protein Band 1 see below 06/10/21 23:14 PEP Interpretation see below H 06/10/21 23:14 Triglycerides 209 mg/dL (2-149) H 06/07/21 19:11 Cholesterol 165 mg/dL (50-199) 06/07/21 19:11 LDL Cholesterol Direct 79 mg/dL (50-130) 06/07/21 19:11 HDL Cholesterol 35 mg/dL (40-59) L 06/07/21 19:11 Cholesterol/HDL Ratio 4.71 % 06/07/21 19:11 Procalcitonin 0.91 ng/mL (<0.15) 06/07/21 19:11 TSH 0.109 mlU/mL (0.270-4.200) L 06/30/21 Unknown Arterial Blood Glucose 205 mg/dL (65-95) H 07/01/21 11:30 Arterial Blood Ionized Calcium 4.4 mg/dL (4.6-5.3) L 06/27/21 16:30 Urine Color Sole (Yellow) 06/23/21 17:40 Urine Turbidity Cloudy (Clear) 06/23/21 17:40 Urine pH 6.0 (5.0-7.0) 06/23/21 17:40 Ur Specific [place] 1.017 (1.003-1.030) 06/23/21 17:40 Urine Protein >500 mg/dL (Negative) 06/23/21 17:40 Urine Glucose (UA) 50 mg/dL (Negative) 06/23/21 17:40 Urine Ketones Neg mg/dL (Negative) 06/23/21 17:40 Urine Blood Lg (Negative) 06/23/21 17:40 Urine Nitrite Neg (Negative) 06/23/21 17:40 Urine Bilirubin Neg (Negative) 06/23/21 17:40 Urine Urobilinogen < 2.0 mg/dL (<2.0) 06/23/21 17:40 Ur Leukocyte Esterase Mod (Negative) 06/23/21 17:40 Urine WBC (Auto) > 182.0 /HPF (0.0-6.0) H 06/23/21 17:40 Urine RBC (Auto) > 182.0 /HPF (0.0-6.0) 06/23/21 17:40 Urine WBC Clumps 3+ /HPF 06/23/21 17:40 Uric Acid Crystals 1+ 06/23/21 17:40 Urine Mucus Few /HPF 06/23/21 17:40 Random Vancomycin 13.8 ug/mL (0-40.0) 06/26/21 07:00 Heparin-induced Plt Ab Negative (Negative) 06/25/21 17:55 UF Heparin High Dose 0 % Release 06/25/21 17:55 BESS UFH Low Dose 0.1 0 % Release 06/25/21 17:55 BESS UFH Low Dose 0.5 0 % Release 06/25/21 17:55 Coronavirus (PCR) Positive (Negative) A 06/08/21 08:30 Hepatitis A IgM Ab Non-reactive (NonReactive) 06/24/21 15:57 Hep Bs Antigen Nonreactive (Negative) 06/24/21 15:57 Hep B Core IgM Ab Non-reactive (NonReactive) 06/24/21 15:57 Hepatitis C Antibody Non-reactive (NonReactive) 06/24/21 15:57 Blood Type B POSITIVE 06/27/21 12:12 Antibody Screen Negative 06/27/21 12:12 Roland/IV: Voiding Method Indwelling Catheter Active Medications - Current Medications Current Medications: Generic Name Dose Route Start Last Admin Trade Name Freq PRN Reason Stop Dose Admin Acetaminophen 650 mg 06/07/21 21:41 06/24/21 11:45 Acetaminophen 325 Mg Tab PO 650 mg Q4H PRN Administration Pain MILD(1-3)/Fever >100.5/MARTÍNEZ Albumin Human 25 gm 06/24/21 14:55 06/27/21 17:47 Albumin Human 25% (25 Gm/100 Ml) Inj IV 25 gm KORINA PRN Administration Hypotension Albuterol 2 mg 06/23/21 09:00 Albuterol 2.5 Mg/3 Ml Nebu IH Q4HRT PRN Shortness Of Breath Lipase/Protease/Amylase 1 each 06/28/21 12:15 Lipase 10,500/Protease 25,000/Amylase 43,750 (Units) Dr Barahona FEEDTUBE PRN PRN For Clogged Feeding Tube Ascorbic Acid 500 mg 06/22/21 22:00 07/02/21 09:27 Ascorbic Acid 500 Mg Tab PO 500 mg BID LEONOR Administration Atorvastatin Calcium 10 mg 06/08/21 10:00 07/02/21 09:28 Atorvastatin 10 Mg Tab PO 10 mg DAILY LEONOR Administration Bisacodyl 10 mg 07/02/21 10:00 07/02/21 09:27 Bisacodyl 10 Mg Rect Supp NV 10 mg QDAY LEONOR Administration Carvedilol 3.125 mg 07/01/21 13:00 07/02/21 12:24 Carvedilol 3.125 Mg Tab PO 3.125 mg BID LEONOR Administration Dextrose 50 ml 06/08/21 12:04 06/20/21 12:16 Dextrose 50% In Water (25gm) 50 Ml Syringe IV 50 ml Q30MIN PRN Administration Hypoglycemia Protocol Docusate Sodium 100 mg 06/29/21 22:00 07/02/21 09:27 Docusate Sodium 100 Mg/10 Ml Oral Liqd PO 100 mg BID LEONOR Administration Famotidine 10 mg 07/01/21 10:00 07/02/21 09:27 Famotidine 10 Mg Tab FEEDTUBE 10 mg BID LEONOR Administration Hydralazine HCl 50 mg 07/01/21 14:00 07/02/21 05:53 Hydralazine 25 Mg Tab PO 50 mg Q8HR LEONOR Administration Hydrophilic Ointment 1 applic 06/22/21 13:07 Lip Therapy Vaseline TP Q2HR PRN Dry Lips Fentanyl Citrate 2,000 mcg in 100 mls @ 8.2 mls/hr 06/22/21 14:00 07/02/21 12:28 Fentanyl Drip Premix IV 4 mcg/kg/hr TITR LEONOR 32.8 mls/hr Administration Protocol 1 MCG/KG/HR NORepinephrine/NS 8 MG-250 ML 8 mg in 250 mls @ 3.75 mls/hr 06/22/21 15:00 07/02/21 08:45 Norepinephrine/Ns 8 Mg-250 Ml (Double Conc) IV 2 mcg/min TITRATE LEONOR 3.75 mls/hr Administration Protocol 2 MCG/MIN Vasopressin 20 unit/ Sodium 101 mls @ 9.09 mls/hr 06/23/21 09:00 06/25/21 16:25 Chloride IV 0 units/min TITR LEONOR 0 mls/hr Titration Protocol 0.03 UNITS/MIN Sodium Chloride 500 mls @ 1 mls/hr 06/23/21 11:19 Nacl 0.9% 500 Ml IV DIRECT PRN ARTERIAL LINE FLUSH Lacosamide 100 mg/ Sodium 110 mls @ 100 mls/hr 06/23/21 15:00 07/02/21 03:21 Chloride IV 100 mls/hr Q12H LEONOR Administration Diltiazem HCl 100 mg in 100 mls @ 7.5 mls/hr 06/28/21 10:15 07/02/21 08:35 Cardizem/D5w 100mg/100ml IV 0 mg/hr TITR LEONOR 0 mls/hr Titration Protocol 7.5 MG/HR Sodium Chloride 100 mls @ 999 mls/hr 06/28/21 16:00 Nacl 0.9% IV KORINA PRN Hypotension Insulin Human Isoph/Insulin Regular 30 unit 06/29/21 17:00 07/02/21 09:43 Insulin Nph/Regular 70/30 Inj SUB-Q 30 unit BIDDIAB LEONOR Administration Insulin Human Regular 0 units 06/22/21 18:00 07/02/21 12:25 Insulin Regular, Human 100 Units/1 Ml SUB-Q Not Given Q6HR LEONOR Protocol Levothyroxine Sodium 137.5 mcg 06/23/21 06:00 07/02/21 05:54 Levothyroxine 100 Mcg Inj IV 137.5 mcg DAILY@0600 LEONOR Administration Methylprednisolone Sodium Succinate 40 mg 07/02/21 10:00 07/02/21 09:28 Methylprednisolone Sod Succinate 40 Mg/1 Ml Inj IV 07/02/21 22:01 40 mg Q12HR LEONOR Administration Methylprednisolone Sodium Succinate 20 mg 07/03/21 10:00 Methylprednisolone Sod Succinate 40 Mg/1 Ml Inj IV 07/03/21 22:01 Q12HR LEONOR Methylprednisolone Sodium Succinate 20 mg 07/04/21 10:00 Methylprednisolone Sod Succinate 40 Mg/1 Ml Inj IV 07/05/21 10:01 Q24HR LEONOR Metoclopramide HCl 5 mg 07/02/21 08:00 07/02/21 09:27 Metoclopramide 10 Mg/2 Ml Inj IV 07/06/21 07:59 5 mg Q8HR LEONOR Administration Midazolam HCl 5 mg 06/26/21 16:00 07/02/21 08:22 Midazolam 5 Mg/5 Ml Inj Mdv IV 07/06/21 23:59 2 mg PRN NR Administration Multi-Ingred Cream/Lotion/Oil/Oint 1 applic 06/22/21 13:07 Mineral Oil/Petrolatum, White Ophth Oint 3.5 Gm OU Q4HR PRN Dry Eye(s) Ondansetron HCl 4 mg 06/07/21 21:41 06/20/21 22:15 Ondansetron 4 Mg/2 Ml Inj IV 4 mg Q8H PRN Administration Nausea And Vomiting Polyethylene Glycol 17 gm 06/29/21 18:00 07/02/21 12:24 Polyethylene Glycol 3350 17 Gm Powder PO 17 gm QDAY LEONOR Administration Senna/Docusate Sodium 1 tab 06/22/21 22:00 07/02/21 09:27 Sennosides/Docusate Sodium 8.6/50 Mg Tab FEEDTUBE 1 tab BID LEONOR Administration Simple Syrup 15 ml 06/28/21 12:15 Simple Syrup 15 Ml FEEDTUBE PRN PRN Hypoglycemia Simple Syrup 30 ml 06/28/21 12:15 Simple Syrup 15 Ml FEEDTUBE PRN PRN Hypoglycemia Sodium Bicarbonate 325 mg 06/28/21 12:15 Sodium Bicarbonate 325 Mg Tab FEEDTUBE PRN PRN For Clogged Feeding Tube Sodium Chloride 10 ml 06/07/21 22:00 07/02/21 12:24 Sodium Chloride 0.9% 10 Ml Flush Syringe IV 10 ml BID LEONOR Administration Sodium Chloride 10 ml 06/07/21 21:41 Sodium Chloride 0.9% 10 Ml Flush Syringe IV PRN PRN LINE FLUSH Zinc Sulfate 220 mg 06/22/21 22:00 07/02/21 09:27 Zinc Sulfate 220 Mg Cap PO 220 mg BID LEONOR Administration Nutrition/Malnutrition Assess - Dietary Evaluation Nutrition/Malnutrition Findings: Nutrition Notes Start: 06/08/21 10:56 Freq: Status: Active Protocol: Document 07/01/21 12:32 GB (Rec: 07/01/21 12:42 GB [id number]) Nutrition Notes Initial or Follow up Reassessment Current Diagnosis Acute Kidney Injury,Diabetes Other Pertinent Diagnosis Pneumonia/COVID-19, hypothyroidism. Current Diet Tube feeding - Nepro goal 20ml /hr Labs/Tests 07/01: Na 136, BUN 105, creatinine 4.7, glucose 178, Ca 8, K 5.2 Pertinent Medications Vit C, D5 PRN, fentanyl citrate, Zn Sulfate Height 5 ft 11 in Weight 190.4 kg [place] Body Weight (kg) 70.45 BMI 58.5 Weight change and time frame 06/24: 164.654kg 06/27: 190.4 kg change of +25.7kg for +15.6% significance 07/01: no new weights Weight Status Morbidly Obese Subjective/Other Information MD note 07/01: HD on 07/01, continue TF as tolerated, no BM BM: no bowel movement RECOMMEND: Continue TF @ 20ML/ HR UNTIL BM OCCURS, gradually increase back to goal. Percent of energy/protein needs met: Tube feed at goal rate meets 75-100% energy/protein needs. Current TF rate 20ml/hr does not meet 75% minimal EEN. Burn Absent Trauma Absent GI Symptoms Constipation Difficulty In Swallowing Food Allergy Yes Skin Integrity/Comment N/A Current % PO Other Minimum of two criteria No physical signs of malnutrition #1 Nutrition Diagnosis Inadequate energy intake Comments: 06/28: Hypo-active bowels, no movement 07/01: no BM recorded Etiology COVID=19/pneumonia As Evidenced by Signs and Symptoms Fair tolerance to food, intake of meals between 0-25%. 06/28: intubated/sedated/on TF 07/01: TF at 20ml/hr r/t no BM Diagnosis Progress(for reassessment Continues documentation) Is patient on ventilator? Yes Is Patient Ambulatory and/or Out of Bed No REE-([place]-confined to bed) 3087.624 Kcal/Kg value to use for calculation 13 Approximate Energy Requirements Using 2475 kcal/Kg Calculation Used for Recommendations Kcal/kg Additional Notes Protein: up to 0.7 g/Kg/day @ 164kg: up to 114g Fluids: 1.0 ml/Kcal, or as per MD. Nutrition Intervention Change Diet Order: NPO continue Nutrition Support: Nepro @ 50ml/hr Flush; 150ml every 4 hrs. or as per MD. Run TF at 20ml/hr until BM occurs (no bowel movement, +15% wt gain) 07/01: continue 20ml/hr rate, NO BM Kcal 864 Protein (gm) 39 Fluid (mL) 349 Goal #1 Maintain body weight within +/ -3% of actual BWt during LOS. 06/28: not met, +15% r/t no bowel movement, poor renal function, compromised GI function 07/01: no new weights, no BM Goal #2 Tolerate TF at goal rate of 50ml/hr during LOS 06/28: high residuals on 06/27 , no bowel movement 07/01: continue trickle feed 20ml/hr as tolerated, no BM Goal #3 Nutritional related labs to improve toward acceptable ranges during LOS. 06/28: continues 07/01: showing improvement, continues Follow-Up By: 07/04/21 Additional Comments Nepro at minimal rate 20ml/hr. Flush 150/4hr. until BM occurs.
--- NOTE | 2021-07-02 15:29 | Progress Note ---
Assessment and Plan Acute hypoxemic respiratory failure (ARDS) on MVS Coronavirus infection Pneumonia due to COVID-19 virus Acute kidney injury superimposed on CKD Hypertension Diabetes mellitus type 2, insulin dependent Hypothyroidism Morbid obesity Thrombocytopenia With acute desaturations, and no significant change in radiological findings get lower extremity doppler and limited echocardiogram to evaluate pulmonary pressures. If the pulmonary pressures are elevated, she will need anticoagulation. Continue with all current care. Will continue to monitor airway pressures closely. Overall prognosis is grave - continue to titrate supplemental oxygen for target SpO2 88-90% - VAP bundle addressed, aspiration precautions HOB >40 - continue lung protective strategies - continue bronchodilators with pulmonary hygiene per RT - wean per pulmonary driven protocols otherwise -CXR, ABG as clinically indicated - follow HIT assay , results pending - continue HD/UF per nephrology prescription for toxin and volume clearance - continue Keppra 500 mg IV q12h - neurology evaluation ongoing - azotemia per nephrology recommendations - avoid nephrotoxins, renally dose all medications - continue to avoid benzodiazepines, as tolerated to reduce the possibility of delirium - Trend temperature curve and WCC, currently off antibiotics - prn analgesia per CPOT score -Bowel regimen - Maintenance of sleep-wake cycle, avoid delirium - enteric nutritional support , currently on hold secondary poor tolerability/absorption -accucheck and glycemic control. Currently on NPH insulin, monitor for hypoglycemia while tube feedings are on hold - Stress ulcer prophylaxis-Famotidine - mobility protocols for pressure ulcer prevention - Monitor hemodynamics closely - continue other care per attending / other consultants COVID SPECIFIC INTERVENTIONS - Remdesivir as per ID/Pulmonary developed protocols (was not a candidate) - systemic steroids taper for severe COVID-19 infection - this is the patient's second course of steroid therapy She has completed a full treatment course of Dexamethasone - zinc and vitamin C supplementation - Monitor inflammatory markers per facility protocol - ferritin, Ddimer, CRP - Anticoagulation per system Protocol based on d-dimer and clinical considerations Patient has not been on pharmacologic prophylaxis secondary to thrombocytopenia - Continue contact and airborne isolation CONDITION: CRITICAL PROGNOSIS: GRAVE CODE STATUS: FULL CODE The high probability of a clinically significant, sudden or life-threatening deterioration of the [respiratory, cardiovascular, hematologic, renal & neurologic] system(s) required my full and direct attention, intervention and personal management. The aggregate critical care time was [40] minutes without overlap. Time includes spent on; [x] Data Review and interpretation [x] Patient assessment and monitoring of vital signs [x] Documentation [x] Medication orders and management Subjective Date of service: 07/02/21 Principal diagnosis: ARDS; Pneumonia; COVID-19 virus infection; TREMAINE; DM II; Morbid obesity Interval history: 07/01/2021 Patient seen and examined. Discussed with nursing, respiratory and clinical pharmacist on interdisciplinary rounds. Remains on high vent settings, critical COVID with ARDS PEEP +14/FIO2 90% ABG 7.26/52/76/23 Remains on Fentanyl infusion, currently not on any antibiotics. Reported high gastric residuals( currently on promotility agents), no vomiting, no bowel movements. Tube feedings held per nursing staff Has a PICC line and trialysis catheter, Roland catheter On Cardizem infusion fro rate control 07/02/2021 Patient seen and examined. Discussed with nursing, respiratory and clinical pharmacist on interdisciplinary rounds. Remains on high vent settings, critical COVID with ARDS. Acute episode of desaturations this morning requiring Ambu bagging. Now up to FIO2 100% and PEEP +16 Objective Vital Signs - 12hr 07/02/21 07/02/21 07/02/21 03:30 03:42 03:45 Temperature 98.4 F Pulse Rate 85 77 Respiratory 30 H 30 H Rate Blood Pressure 151/55 102/39 O2 Sat by Pulse 98 97 Oximetry 07/02/21 07/02/21 07/02/21 04:00 04:05 04:15 Temperature Pulse Rate 79 93 H 88 Respiratory 30 H 30 H Rate Blood Pressure 119/47 119/47 155/60 O2 Sat by Pulse 91 98 98 Oximetry 07/02/21 07/02/21 07/02/21 04:30 04:45 05:00 Temperature Pulse Rate 89 78 73 Respiratory 25 H 26 H 25 H Rate Blood Pressure 132/61 134/45 102/39 O2 Sat by Pulse 93 93 91 Oximetry 07/02/21 07/02/21 07/02/21 05:15 05:30 05:45 Temperature Pulse Rate 77 87 92 H Respiratory 25 H 25 H 25 H Rate Blood Pressure 113/41 154/66 O2 Sat by Pulse 91 87 89 Oximetry 07/02/21 07/02/21 07/02/21 05:53 06:00 06:15 Temperature Pulse Rate 104 H 89 78 Respiratory 24 25 H Rate Blood Pressure 154/66 181/64 129/49 O2 Sat by Pulse 96 95 Oximetry 07/02/21 07/02/21 07/02/21 06:30 06:45 07:00 Temperature 97.8 F Pulse Rate 76 73 89 Respiratory 25 H 25 H 23 Rate Blood Pressure 139/46 132/43 176/73 O2 Sat by Pulse 95 95 90 Oximetry 07/02/21 07/02/21 07/02/21 07:15 07:30 07:46 Temperature Pulse Rate 108 H 97 H 104 H Respiratory 29 H 22 27 H Rate Blood Pressure 175/71 150/69 154/60 O2 Sat by Pulse 84 79 L 84 Oximetry 07/02/21 07/02/21 07/02/21 08:00 08:15 08:30 Temperature Pulse Rate 96 H 103 H 93 H Respiratory 28 H 21 24 Rate Blood Pressure 110/56 130/54 130/54 O2 Sat by Pulse 93 75 L 87 Oximetry 07/02/21 07/02/21 07/02/21 08:45 09:00 09:15 Temperature Pulse Rate 77 83 95 H Respiratory 30 H 30 H 30 H Rate Blood Pressure 48/23 79/30 101/45 O2 Sat by Pulse 82 L 87 90 Oximetry 07/02/21 07/02/21 07/02/21 09:30 09:45 10:00 Temperature Pulse Rate 90 97 H 83 Respiratory 19 30 H 30 H Rate Blood Pressure 79/30 110/56 81/44 O2 Sat by Pulse 91 88 93 Oximetry 07/02/21 07/02/21 07/02/21 10:15 10:30 10:45 Temperature Pulse Rate 85 81 88 Respiratory 30 H 30 H 30 H Rate Blood Pressure 83/47 76/46 110/49 O2 Sat by Pulse 94 95 97 Oximetry 07/02/21 07/02/21 07/02/21 11:00 11:15 11:30 Temperature Pulse Rate 88 90 89 Respiratory 30 H 30 H 30 H Rate Blood Pressure 103/51 113/53 101/50 O2 Sat by Pulse 98 97 97 Oximetry 07/02/21 07/02/21 07/02/21 11:45 12:00 12:08 Temperature 98.1 F Pulse Rate 114 H 108 H Respiratory 29 H 26 H Rate Blood Pressure 161/69 172/70 O2 Sat by Pulse 92 Oximetry 07/02/21 07/02/21 07/02/21 12:15 12:24 12:30 Temperature Pulse Rate 104 H 130 H 129 H Respiratory 20 18 Rate Blood Pressure 144/63 144/63 146/66 O2 Sat by Pulse 97 94 Oximetry 07/02/21 07/02/21 07/02/21 12:45 13:00 13:15 Temperature Pulse Rate 120 H 103 H 102 H Respiratory 28 H 31 H 29 H Rate Blood Pressure 123/59 120/58 98/55 O2 Sat by Pulse 93 94 95 Oximetry 07/02/21 07/02/21 07/02/21 13:30 13:45 14:00 Temperature Pulse Rate 101 H 101 H 105 H Respiratory 23 31 H 31 H Rate Blood Pressure 104/50 106/51 100/50 O2 Sat by Pulse 86 92 91 Oximetry 07/02/21 07/02/21 07/02/21 14:15 14:30 14:45 Temperature Pulse Rate 104 H 111 H 108 H Respiratory 21 21 17 Rate Blood Pressure 96/47 118/57 116/48 O2 Sat by Pulse 89 91 90 Oximetry 07/02/21 07/02/21 15:01 15:07 Temperature Pulse Rate 100 H Respiratory 30 H Rate Blood Pressure 88/42 88/42 O2 Sat by Pulse 88 Oximetry Constitutional: appears uncomfortable, other (Morbidly Obese female with mildly increased work of breathing on MVS) Eyes: non-icteric ENT: oropharynx moist, other (ETT 24 cm SHEREEN) Neck: supple, no lymphadenopathy, other (large neck circumference) Effort: mildly labored Ascultation: Bilateral: diminished breath sounds, rhonchi Percussion: Bilateral: not dull Cardiovascular: irregular rhythm, other (S1,S2) Gastrointestinal: normoactive bowel sounds, soft, non-tender, non-distended (protuberant) Integumentary: rash (stasis dermatitis- type) Extremities: no cyanosis, no edema, pulses normal, no ischemia or petechiae Neurologic: pupils equal and round, unable to assess Psychiatric: other (unable to assess re: AMS) CBC and BMP: 07/02/21 07:47 07/02/21 23:25 ABG, PT/INR, D-dimer: ABG ABG pH 7.302 (7.320-7.450) L 07/02/21 04:18 POC ABG pCO2 55.5 mmHg (32.0-48.0) H 07/02/21 04:18 ABG pCO2 64.0 mm Hg 06/27/21 Unknown POC ABG pO2 120.2 mmHg (83-108) H 07/02/21 04:18 ABG pO2 92.0 mm Hg (80.0-90.0) H 06/27/21 Unknown POC ABG HCO3 26.8 07/02/21 04:18 ABG O2 Saturation 98.6 (0-100) 07/02/21 04:18 PT/INR, D-dimer PT 16.7 Sec. (12.2-14.9) H 06/30/21 04:30 INR 1.22 (0.87-1.13) H 06/30/21 04:30 D-Dimer > 13731 ng/mlDDU (0-234) H 07/02/21 09:40 Abnormal lab findings: Abnormal Labs 06/07/21 06/07/21 06/07/21 19:11 19:11 19:11 WBC 11.5 H RBC Hgb Hct RDW Plt Count Lymph % (Auto) 6.5 L Lymph # (Auto) 0.8 L Seg Neutrophils % 89.9 H Seg Neuts % (Manual) Lymphocytes % (Manual) Nucleated RBC % Seg Neutrophils # 10.4 H Seg Neutrophils # Man Lymphocytes # (Manual) Monocytes # (Manual) PT INR APTT D-Dimer 5334.05 H ABG pH POC ABG pCO2 POC ABG pO2 ABG pO2 ABG HCO3 ABG O2 Saturation ABG Base Excess ABG Hemoglobin ABG Oxyhemoglobin ABG Methemoglobin ABG Sodium ABG Potassium ABG Chloride ABG Glucose Oxyhemoglobin Carboxyhemoglobin Sodium Potassium Chloride Carbon Dioxide BUN 67 H Creatinine 4.8 H Glucose 244 H POC Glucose Hemoglobin A1c Calcium Phosphorus Magnesium Ferritin Alkaline Phosphatase Lactate Dehydrogenase 796 H Troponin T 0.043 H C-Reactive Protein 19.60 H Total Protein 8.4 H Albumin 3.1 L Bfnnj-3-Julanjcgp Jiutd-2-Apkrorrsc Beta Globulins PEP Interpretation Triglycerides 209 H HDL Cholesterol 35 L TSH Arterial Blood Glucose Arterial Blood Ionized Calcium Urine WBC (Auto) Coronavirus (PCR) 06/07/21 06/07/21 06/08/21 19:11 19:11 03:04 WBC RBC Hgb Hct RDW Plt Count Lymph % (Auto) Lymph # (Auto) Seg Neutrophils % Seg Neuts % (Manual) Lymphocytes % (Manual) Nucleated RBC % Seg Neutrophils # Seg Neutrophils # Man Lymphocytes # (Manual) Monocytes # (Manual) PT INR APTT D-Dimer ABG pH POC ABG pCO2 POC ABG pO2 ABG pO2 ABG HCO3 ABG O2 Saturation ABG Base Excess ABG Hemoglobin ABG Oxyhemoglobin ABG Methemoglobin ABG Sodium ABG Potassium ABG Chloride ABG Glucose Oxyhemoglobin Carboxyhemoglobin Sodium Potassium Chloride Carbon Dioxide BUN Creatinine Glucose POC Glucose Hemoglobin A1c 9.5 H Calcium Phosphorus Magnesium Ferritin 1230.0 H Alkaline Phosphatase Lactate Dehydrogenase Troponin T 0.031 H D C-Reactive Protein Total Protein Albumin Lncfh-6-Olzoqfxop Xypit-8-Lqrhxnqsv Beta Globulins PEP Interpretation Triglycerides HDL Cholesterol TSH Arterial Blood Glucose Arterial Blood Ionized Calcium Urine WBC (Auto) Coronavirus (PCR) 06/08/21 06/08/21 06/08/21 03:44 03:44 08:21 WBC 12.9 H RBC Hgb Hct RDW Plt Count Lymph % (Auto) Lymph # (Auto) Seg Neutrophils % Seg Neuts % (Manual) 95.0 H Lymphocytes % (Manual) 3.0 L Nucleated RBC % Seg Neutrophils # Seg Neutrophils # Man 12.3 H Lymphocytes # (Manual) 0.4 L Monocytes # (Manual) PT INR APTT D-Dimer ABG pH POC ABG pCO2 POC ABG pO2 ABG pO2 ABG HCO3 ABG O2 Saturation ABG Base Excess ABG Hemoglobin ABG Oxyhemoglobin ABG Methemoglobin ABG Sodium ABG Potassium ABG Chloride ABG Glucose Oxyhemoglobin Carboxyhemoglobin Sodium Potassium Chloride Carbon Dioxide 20 L D BUN 68 H Creatinine 4.7 H Glucose 218 H POC Glucose 273 H Hemoglobin A1c Calcium Phosphorus Magnesium Ferritin Alkaline Phosphatase Lactate Dehydrogenase Troponin T C-Reactive Protein Total Protein Albumin 3.4 L Exsmp-3-Newvzlozt Vwuhl-1-Bkftyebfs Beta Globulins PEP Interpretation Triglycerides HDL Cholesterol TSH Arterial Blood Glucose Arterial Blood Ionized Calcium Urine WBC (Auto) Coronavirus (PCR) 06/08/21 06/08/21 06/08/21 08:30 11:00 17:29 WBC RBC Hgb Hct RDW Plt Count Lymph % (Auto) Lymph # (Auto) Seg Neutrophils % Seg Neuts % (Manual) Lymphocytes % (Manual) Nucleated RBC % Seg Neutrophils # Seg Neutrophils # Man Lymphocytes # (Manual) Monocytes # (Manual) PT INR APTT D-Dimer ABG pH POC ABG pCO2 POC ABG pO2 ABG pO2 ABG HCO3 ABG O2 Saturation ABG Base Excess ABG Hemoglobin ABG Oxyhemoglobin ABG Methemoglobin ABG Sodium ABG Potassium ABG Chloride ABG Glucose Oxyhemoglobin Carboxyhemoglobin Sodium Potassium Chloride Carbon Dioxide BUN Creatinine Glucose POC Glucose 239 H 220 H Hemoglobin A1c Calcium Phosphorus Magnesium Ferritin Alkaline Phosphatase Lactate Dehydrogenase Troponin T C-Reactive Protein Total Protein Albumin Kxkpd-6-Dobitovjh Gvybf-1-Oiuytmmdz Beta Globulins PEP Interpretation Triglycerides HDL Cholesterol TSH Arterial Blood Glucose Arterial Blood Ionized Calcium Urine WBC (Auto) Coronavirus (PCR) Positive A 06/08/21 06/09/21 06/09/21 21:09 08:07 08:42 WBC 14.7 H RBC 5.28 H Hgb 14.9 H Hct 45.0 H D RDW Plt Count Lymph % (Auto) 4.9 L Lymph # (Auto) 0.7 L Seg Neutrophils % 90.0 H Seg Neuts % (Manual) Lymphocytes % (Manual) Nucleated RBC % Seg Neutrophils # 13.2 H Seg Neutrophils # Man Lymphocytes # (Manual) Monocytes # (Manual) PT INR APTT D-Dimer ABG pH POC ABG pCO2 POC ABG pO2 ABG pO2 ABG HCO3 ABG O2 Saturation ABG Base Excess ABG Hemoglobin ABG Oxyhemoglobin ABG Methemoglobin ABG Sodium ABG Potassium ABG Chloride ABG Glucose Oxyhemoglobin Carboxyhemoglobin Sodium Potassium Chloride Carbon Dioxide BUN Creatinine Glucose POC Glucose 242 H 230 H Hemoglobin A1c Calcium Phosphorus Magnesium Ferritin Alkaline Phosphatase Lactate Dehydrogenase Troponin T C-Reactive Protein Total Protein Albumin Skbxj-2-Qrvuknxle Qoqng-3-Nkzcvosly Beta Globulins PEP Interpretation Triglycerides HDL Cholesterol TSH Arterial Blood Glucose Arterial Blood Ionized Calcium Urine WBC (Auto) Coronavirus (PCR) 06/09/21 06/09/21 06/09/21 08:42 12:05 12:19 WBC RBC Hgb Hct RDW Plt Count Lymph % (Auto) Lymph # (Auto) Seg Neutrophils % Seg Neuts % (Manual) Lymphocytes % (Manual) Nucleated RBC % Seg Neutrophils # Seg Neutrophils # Man Lymphocytes # (Manual) Monocytes # (Manual) PT INR APTT D-Dimer ABG pH POC ABG pCO2 POC ABG pO2 71.4 L ABG pO2 ABG HCO3 ABG O2 Saturation ABG Base Excess ABG Hemoglobin ABG Oxyhemoglobin 92.9 L ABG Methemoglobin ABG Sodium ABG Potassium ABG Chloride 109.0 H ABG Glucose 287 H Oxyhemoglobin Carboxyhemoglobin 0.4 L Sodium Potassium Chloride Carbon Dioxide 17 L BUN 74 H Creatinine 3.7 H Glucose 259 H POC Glucose 274 H Hemoglobin A1c Calcium 8.3 L Phosphorus Magnesium Ferritin Alkaline Phosphatase Lactate Dehydrogenase Troponin T C-Reactive Protein Total Protein Albumin Fyjga-7-Gouwsalzx Dobmf-7-Bfbupafka Beta Globulins PEP Interpretation Triglycerides HDL Cholesterol TSH Arterial Blood Glucose 287 H Arterial Blood Ionized Calcium Urine WBC (Auto) Coronavirus (PCR) 06/09/21 06/09/21 06/10/21 16:59 21:06 08:25 WBC RBC Hgb Hct RDW Plt Count Lymph % (Auto) Lymph # (Auto) Seg Neutrophils % Seg Neuts % (Manual) Lymphocytes % (Manual) Nucleated RBC % Seg Neutrophils # Seg Neutrophils # Man Lymphocytes # (Manual) Monocytes # (Manual) PT INR APTT D-Dimer ABG pH POC ABG pCO2 POC ABG pO2 ABG pO2 ABG HCO3 ABG O2 Saturation ABG Base Excess ABG Hemoglobin ABG Oxyhemoglobin ABG Methemoglobin ABG Sodium ABG Potassium ABG Chloride ABG Glucose Oxyhemoglobin Carboxyhemoglobin Sodium Potassium Chloride Carbon Dioxide BUN Creatinine Glucose POC Glucose 268 H 263 H 280 H Hemoglobin A1c Calcium Phosphorus Magnesium Ferritin Alkaline Phosphatase Lactate Dehydrogenase Troponin T C-Reactive Protein Total Protein Albumin Uaarv-4-Srehnsewm Vcxzm-6-Ppghmcoeh Beta Globulins PEP Interpretation Triglycerides HDL Cholesterol TSH Arterial Blood Glucose Arterial Blood Ionized Calcium Urine WBC (Auto) Coronavirus (PCR) 06/10/21 06/10/21 06/10/21 12:07 15:38 21:04 WBC RBC Hgb Hct RDW Plt Count Lymph % (Auto) Lymph # (Auto) Seg Neutrophils % Seg Neuts % (Manual) Lymphocytes % (Manual) Nucleated RBC % Seg Neutrophils # Seg Neutrophils # Man Lymphocytes # (Manual) Monocytes # (Manual) PT INR APTT D-Dimer ABG pH POC ABG pCO2 POC ABG pO2 ABG pO2 ABG HCO3 ABG O2 Saturation ABG Base Excess ABG Hemoglobin ABG Oxyhemoglobin ABG Methemoglobin ABG Sodium ABG Potassium ABG Chloride ABG Glucose Oxyhemoglobin Carboxyhemoglobin Sodium Potassium Chloride Carbon Dioxide BUN Creatinine Glucose POC Glucose 247 H 269 H 195 H Hemoglobin A1c Calcium Phosphorus Magnesium Ferritin Alkaline Phosphatase Lactate Dehydrogenase Troponin T C-Reactive Protein Total Protein Albumin Ujtlb-1-Bqquetxzh Sxrtn-2-Qvgjheoph Beta Globulins PEP Interpretation Triglycerides HDL Cholesterol TSH Arterial Blood Glucose Arterial Blood Ionized Calcium Urine WBC (Auto) Coronavirus (PCR) 06/10/21 06/10/21 06/10/21 23:14 23:14 23:14 WBC RBC Hgb Hct RDW 15.3 H Plt Count Lymph % (Auto) Lymph # (Auto) Seg Neutrophils % Seg Neuts % (Manual) 93.0 H Lymphocytes % (Manual) 2.0 L Nucleated RBC % 3.0 H Seg Neutrophils # Seg Neutrophils # Man 10.2 H Lymphocytes # (Manual) 0.2 L Monocytes # (Manual) PT INR APTT D-Dimer ABG pH POC ABG pCO2 POC ABG pO2 ABG pO2 ABG HCO3 ABG O2 Saturation ABG Base Excess ABG Hemoglobin ABG Oxyhemoglobin ABG Methemoglobin ABG Sodium ABG Potassium ABG Chloride ABG Glucose Oxyhemoglobin Carboxyhemoglobin Sodium 148 H D Potassium Chloride 111.7 H Carbon Dioxide 20 L BUN 70 H Creatinine 3.2 H Glucose 186 H POC Glucose Hemoglobin A1c Calcium Phosphorus Magnesium Ferritin Alkaline Phosphatase Lactate Dehydrogenase Troponin T C-Reactive Protein Total Protein Albumin 2.6 L Yxnnx-6-Zucphdcvx 0.5 H Dlado-3-Xndopsyti 1.7 H Beta Globulins 0.6 H PEP Interpretation see below H Triglycerides HDL Cholesterol TSH Arterial Blood Glucose Arterial Blood Ionized Calcium Urine WBC (Auto) Coronavirus (PCR) 06/10/21 06/10/21 06/10/21 23:14 23:14 23:14 WBC RBC Hgb Hct RDW Plt Count Lymph % (Auto) Lymph # (Auto) Seg Neutrophils % Seg Neuts % (Manual) Lymphocytes % (Manual) Nucleated RBC % Seg Neutrophils # Seg Neutrophils # Man Lymphocytes # (Manual) Monocytes # (Manual) PT INR APTT D-Dimer > 51332 H ABG pH POC ABG pCO2 POC ABG pO2 ABG pO2 ABG HCO3 ABG O2 Saturation ABG Base Excess ABG Hemoglobin ABG Oxyhemoglobin ABG Methemoglobin ABG Sodium ABG Potassium ABG Chloride ABG Glucose Oxyhemoglobin Carboxyhemoglobin Sodium Potassium Chloride Carbon Dioxide BUN Creatinine Glucose POC Glucose Hemoglobin A1c Calcium Phosphorus Magnesium 2.50 H Ferritin 1319.0 H Alkaline Phosphatase Lactate Dehydrogenase 606 H Troponin T C-Reactive Protein Total Protein Albumin Dbcga-9-Qpkvffkhj Cnjtv-2-Ekrlohweb Beta Globulins PEP Interpretation Triglycerides HDL Cholesterol TSH Arterial Blood Glucose Arterial Blood Ionized Calcium Urine WBC (Auto) Coronavirus (PCR) 06/11/21 06/11/21 06/11/21 07:34 10:57 10:57 WBC RBC Hgb Hct RDW Plt Count Lymph % (Auto) Lymph # (Auto) Seg Neutrophils % Seg Neuts % (Manual) Lymphocytes % (Manual) Nucleated RBC % Seg Neutrophils # Seg Neutrophils # Man Lymphocytes # (Manual) Monocytes # (Manual) PT INR APTT D-Dimer > 88086 H ABG pH POC ABG pCO2 POC ABG pO2 ABG pO2 ABG HCO3 ABG O2 Saturation ABG Base Excess ABG Hemoglobin ABG Oxyhemoglobin ABG Methemoglobin ABG Sodium ABG Potassium ABG Chloride ABG Glucose Oxyhemoglobin Carboxyhemoglobin Sodium Potassium Chloride Carbon Dioxide BUN Creatinine Glucose POC Glucose 169 H Hemoglobin A1c Calcium Phosphorus Magnesium Ferritin 1300.0 H Alkaline Phosphatase Lactate Dehydrogenase Troponin T C-Reactive Protein Total Protein Albumin Wtmae-0-Cvnfsgbpk Ikcbx-2-Rtbsuyjns Beta Globulins PEP Interpretation Triglycerides HDL Cholesterol TSH Arterial Blood Glucose Arterial Blood Ionized Calcium Urine WBC (Auto) Coronavirus (PCR) 06/11/21 06/11/21 06/11/21 10:58 10:58 11:49 WBC 11.3 H RBC Hgb Hct RDW 15.3 H Plt Count Lymph % (Auto) Lymph # (Auto) Seg Neutrophils % Seg Neuts % (Manual) 88.0 H Lymphocytes % (Manual) 6.0 L Nucleated RBC % Seg Neutrophils # Seg Neutrophils # Man 9.9 H Lymphocytes # (Manual) 0.7 L Monocytes # (Manual) PT INR APTT D-Dimer ABG pH POC ABG pCO2 POC ABG pO2 ABG pO2 ABG HCO3 ABG O2 Saturation ABG Base Excess ABG Hemoglobin ABG Oxyhemoglobin ABG Methemoglobin ABG Sodium ABG Potassium ABG Chloride ABG Glucose Oxyhemoglobin Carboxyhemoglobin Sodium 150 H Potassium 3.4 L Chloride 114.8 H Carbon Dioxide 21 L BUN 65 H Creatinine 2.9 H Glucose 180 H POC Glucose 191 H Hemoglobin A1c Calcium Phosphorus Magnesium 2.50 H Ferritin Alkaline Phosphatase Lactate Dehydrogenase Troponin T C-Reactive Protein 1.90 H Total Protein Albumin Dcgfj-3-Pxfushxkw Uppkt-1-Nmsqxepxi Beta Globulins PEP Interpretation Triglycerides HDL Cholesterol TSH Arterial Blood Glucose Arterial Blood Ionized Calcium Urine WBC (Auto) Coronavirus (PCR) 06/11/21 06/11/21 06/12/21 15:49 21:16 04:22 WBC RBC Hgb Hct RDW Plt Count Lymph % (Auto) Lymph # (Auto) Seg Neutrophils % Seg Neuts % (Manual) Lymphocytes % (Manual) Nucleated RBC % Seg Neutrophils # Seg Neutrophils # Man Lymphocytes # (Manual) Monocytes # (Manual) PT INR APTT D-Dimer ABG pH 7.318 L POC ABG pCO2 POC ABG pO2 ABG pO2 51.5 L ABG HCO3 ABG O2 Saturation 86.9 L ABG Base Excess -5.6 L ABG Hemoglobin ABG Oxyhemoglobin ABG Methemoglobin ABG Sodium ABG Potassium ABG Chloride ABG Glucose Oxyhemoglobin 85.5 L Carboxyhemoglobin Sodium Potassium Chloride Carbon Dioxide BUN Creatinine Glucose POC Glucose 185 H 200 H Hemoglobin A1c Calcium Phosphorus Magnesium Ferritin Alkaline Phosphatase Lactate Dehydrogenase Troponin T C-Reactive Protein Total Protein Albumin Plwyl-1-Kiemmnxjx Vxrzh-6-Clvjkwuvk Beta Globulins PEP Interpretation Triglycerides HDL Cholesterol TSH Arterial Blood Glucose Arterial Blood Ionized Calcium Urine WBC (Auto) Coronavirus (PCR) 06/12/21 06/12/21 06/12/21 07:41 08:31 08:31 WBC 12.4 H RBC Hgb Hct RDW 15.3 H Plt Count Lymph % (Auto) 8.5 L Lymph # (Auto) 1.1 L Seg Neutrophils % 88.1 H Seg Neuts % (Manual) Lymphocytes % (Manual) Nucleated RBC % Seg Neutrophils # 10.9 H Seg Neutrophils # Man Lymphocytes # (Manual) Monocytes # (Manual) PT INR APTT D-Dimer ABG pH POC ABG pCO2 POC ABG pO2 ABG pO2 ABG HCO3 ABG O2 Saturation ABG Base Excess ABG Hemoglobin ABG Oxyhemoglobin ABG Methemoglobin ABG Sodium ABG Potassium ABG Chloride ABG Glucose Oxyhemoglobin Carboxyhemoglobin Sodium 151 H Potassium Chloride 117.3 H Carbon Dioxide 21 L BUN 61 H Creatinine 2.5 H Glucose 165 H POC Glucose 165 H Hemoglobin A1c Calcium 8.3 L Phosphorus Magnesium Ferritin Alkaline Phosphatase Lactate Dehydrogenase Troponin T C-Reactive Protein Total Protein Albumin Gfyrm-8-Nhpehtect Efucy-7-Khbdsovwt Beta Globulins PEP Interpretation Triglycerides HDL Cholesterol TSH Arterial Blood Glucose Arterial Blood Ionized Calcium Urine WBC (Auto) Coronavirus (PCR) 06/12/21 06/12/21 06/12/21 08:31 10:32 15:47 WBC RBC Hgb Hct RDW Plt Count Lymph % (Auto) Lymph # (Auto) Seg Neutrophils % Seg Neuts % (Manual) Lymphocytes % (Manual) Nucleated RBC % Seg Neutrophils # Seg Neutrophils # Man Lymphocytes # (Manual) Monocytes # (Manual) PT INR APTT D-Dimer ABG pH POC ABG pCO2 POC ABG pO2 ABG pO2 ABG HCO3 ABG O2 Saturation ABG Base Excess ABG Hemoglobin ABG Oxyhemoglobin ABG Methemoglobin ABG Sodium ABG Potassium ABG Chloride ABG Glucose Oxyhemoglobin Carboxyhemoglobin Sodium Potassium Chloride Carbon Dioxide BUN Creatinine Glucose POC Glucose 156 H 176 H Hemoglobin A1c Calcium Phosphorus Magnesium 2.50 H Ferritin Alkaline Phosphatase Lactate Dehydrogenase Troponin T C-Reactive Protein Total Protein Albumin Gunwo-0-Annksrpmt Shfoo-8-Hojnvfssg Beta Globulins PEP Interpretation Triglycerides HDL Cholesterol TSH Arterial Blood Glucose Arterial Blood Ionized Calcium Urine WBC (Auto) Coronavirus (PCR) 06/12/21 06/13/21 06/13/21 21:50 07:42 07:42 WBC 14.1 H RBC Hgb Hct RDW 15.3 H Plt Count Lymph % (Auto) Lymph # (Auto) Seg Neutrophils % Seg Neuts % (Manual) 87.0 H Lymphocytes % (Manual) 7.0 L Nucleated RBC % 3.0 H Seg Neutrophils # Seg Neutrophils # Man 12.3 H Lymphocytes # (Manual) 1.0 L Monocytes # (Manual) PT INR APTT D-Dimer ABG pH POC ABG pCO2 POC ABG pO2 ABG pO2 ABG HCO3 ABG O2 Saturation ABG Base Excess ABG Hemoglobin ABG Oxyhemoglobin ABG Methemoglobin ABG Sodium ABG Potassium ABG Chloride ABG Glucose Oxyhemoglobin Carboxyhemoglobin Sodium 151 H Potassium 3.5 L Chloride 116.0 H Carbon Dioxide BUN 61 H Creatinine 2.3 H Glucose 135 H POC Glucose 165 H Hemoglobin A1c Calcium Phosphorus Magnesium 2.50 H Ferritin Alkaline Phosphatase Lactate Dehydrogenase Troponin T C-Reactive Protein Total Protein Albumin Zxslh-8-Yiwadxgfg Lnlga-6-Medzuciiz Beta Globulins PEP Interpretation Triglycerides HDL Cholesterol TSH Arterial Blood Glucose Arterial Blood Ionized Calcium Urine WBC (Auto) Coronavirus (PCR) 06/13/21 06/13/21 06/13/21 08:10 11:10 18:15 WBC RBC Hgb Hct RDW Plt Count Lymph % (Auto) Lymph # (Auto) Seg Neutrophils % Seg Neuts % (Manual) Lymphocytes % (Manual) Nucleated RBC % Seg Neutrophils # Seg Neutrophils # Man Lymphocytes # (Manual) Monocytes # (Manual) PT INR APTT D-Dimer ABG pH POC ABG pCO2 POC ABG pO2 ABG pO2 ABG HCO3 ABG O2 Saturation ABG Base Excess ABG Hemoglobin ABG Oxyhemoglobin ABG Methemoglobin ABG Sodium ABG Potassium ABG Chloride ABG Glucose Oxyhemoglobin Carboxyhemoglobin Sodium Potassium Chloride Carbon Dioxide BUN Creatinine Glucose POC Glucose 118 H 139 H 179 H Hemoglobin A1c Calcium Phosphorus Magnesium Ferritin Alkaline Phosphatase Lactate Dehydrogenase Troponin T C-Reactive Protein Total Protein Albumin Tqdtq-8-Ecpwhypoz Bkavf-1-Abwzxonlu Beta Globulins PEP Interpretation Triglycerides HDL Cholesterol TSH Arterial Blood Glucose Arterial Blood Ionized Calcium Urine WBC (Auto) Coronavirus (PCR) 06/13/21 06/13/21 06/14/21 21:54 23:27 04:42 WBC 12.8 H RBC Hgb Hct RDW 15.3 H Plt Count Lymph % (Auto) Lymph # (Auto) Seg Neutrophils % Seg Neuts % (Manual) 92.0 H Lymphocytes % (Manual) 1.0 L Nucleated RBC % 2.0 H Seg Neutrophils # Seg Neutrophils # Man 11.8 H Lymphocytes # (Manual) 0.1 L Monocytes # (Manual) PT INR APTT D-Dimer ABG pH POC ABG pCO2 POC ABG pO2 ABG pO2 ABG HCO3 ABG O2 Saturation ABG Base Excess ABG Hemoglobin ABG Oxyhemoglobin ABG Methemoglobin ABG Sodium ABG Potassium ABG Chloride ABG Glucose Oxyhemoglobin Carboxyhemoglobin Sodium 152 H Potassium Chloride 116.3 H Carbon Dioxide 21 L BUN 67 H Creatinine 2.5 H Glucose 212 H POC Glucose 193 H Hemoglobin A1c Calcium Phosphorus Magnesium Ferritin Alkaline Phosphatase Lactate Dehydrogenase Troponin T C-Reactive Protein Total Protein Albumin Daczm-2-Netnutmmq Ffhuz-2-Xjrxsyzml Beta Globulins PEP Interpretation Triglycerides HDL Cholesterol TSH Arterial Blood Glucose Arterial Blood Ionized Calcium Urine WBC (Auto) Coronavirus (PCR) 06/14/21 06/14/21 06/14/21 04:42 04:42 07:33 WBC RBC Hgb Hct RDW Plt Count Lymph % (Auto) Lymph # (Auto) Seg Neutrophils % Seg Neuts % (Manual) Lymphocytes % (Manual) Nucleated RBC % Seg Neutrophils # Seg Neutrophils # Man Lymphocytes # (Manual) Monocytes # (Manual) PT INR APTT D-Dimer ABG pH POC ABG pCO2 POC ABG pO2 ABG pO2 ABG HCO3 ABG O2 Saturation ABG Base Excess ABG Hemoglobin ABG Oxyhemoglobin ABG Methemoglobin ABG Sodium ABG Potassium ABG Chloride ABG Glucose Oxyhemoglobin Carboxyhemoglobin Sodium 152 H Potassium Chloride 115.3 H Carbon Dioxide BUN 68 H Creatinine 2.5 H Glucose 188 H POC Glucose 173 H Hemoglobin A1c Calcium Phosphorus Magnesium 2.40 H Ferritin Alkaline Phosphatase Lactate Dehydrogenase Troponin T C-Reactive Protein Total Protein Albumin Jaktf-7-Zlhcpyeqp Txfpm-3-Hewsgmbwr Beta Globulins PEP Interpretation Triglycerides HDL Cholesterol TSH Arterial Blood Glucose Arterial Blood Ionized Calcium Urine WBC (Auto) Coronavirus (PCR) 06/14/21 06/14/21 06/14/21 10:57 15:53 23:40 WBC RBC Hgb Hct RDW Plt Count Lymph % (Auto) Lymph # (Auto) Seg Neutrophils % Seg Neuts % (Manual) Lymphocytes % (Manual) Nucleated RBC % Seg Neutrophils # Seg Neutrophils # Man Lymphocytes # (Manual) Monocytes # (Manual) PT INR APTT D-Dimer ABG pH POC ABG pCO2 POC ABG pO2 ABG pO2 ABG HCO3 ABG O2 Saturation ABG Base Excess ABG Hemoglobin ABG Oxyhemoglobin ABG Methemoglobin ABG Sodium ABG Potassium ABG Chloride ABG Glucose Oxyhemoglobin Carboxyhemoglobin Sodium Potassium Chloride Carbon Dioxide BUN Creatinine Glucose POC Glucose 195 H 226 H 235 H Hemoglobin A1c Calcium Phosphorus Magnesium Ferritin Alkaline Phosphatase Lactate Dehydrogenase Troponin T C-Reactive Protein Total Protein Albumin Wioyj-4-Pooncrtix Ntsdb-3-Tbrqodqji Beta Globulins PEP Interpretation Triglycerides HDL Cholesterol TSH Arterial Blood Glucose Arterial Blood Ionized Calcium Urine WBC (Auto) Coronavirus (PCR) 06/15/21 06/15/21 06/15/21 07:38 07:38 07:38 WBC 14.3 H RBC Hgb Hct RDW Plt Count Lymph % (Auto) Lymph # (Auto) Seg Neutrophils % Seg Neuts % (Manual) 95.0 H Lymphocytes % (Manual) 1.0 L Nucleated RBC % Seg Neutrophils # Seg Neutrophils # Man 13.6 H Lymphocytes # (Manual) 0.1 L Monocytes # (Manual) PT INR APTT D-Dimer > 96106 H ABG pH POC ABG pCO2 POC ABG pO2 ABG pO2 ABG HCO3 ABG O2 Saturation ABG Base Excess ABG Hemoglobin ABG Oxyhemoglobin ABG Methemoglobin ABG Sodium ABG Potassium ABG Chloride ABG Glucose Oxyhemoglobin Carboxyhemoglobin Sodium 153 H Potassium 3.5 L Chloride 115.9 H Carbon Dioxide BUN 55 H Creatinine 2.1 H Glucose 213 H POC Glucose Hemoglobin A1c Calcium Phosphorus Magnesium Ferritin Alkaline Phosphatase Lactate Dehydrogenase Troponin T C-Reactive Protein Total Protein Albumin Vuryi-8-Bdrocauvr Axnou-0-Hkwfqnkbr Beta Globulins PEP Interpretation Triglycerides HDL Cholesterol TSH Arterial Blood Glucose Arterial Blood Ionized Calcium Urine WBC (Auto) Coronavirus (PCR) 06/15/21 06/15/21 06/15/21 07:38 09:21 11:46 WBC RBC Hgb Hct RDW Plt Count Lymph % (Auto) Lymph # (Auto) Seg Neutrophils % Seg Neuts % (Manual) Lymphocytes % (Manual) Nucleated RBC % Seg Neutrophils # Seg Neutrophils # Man Lymphocytes # (Manual) Monocytes # (Manual) PT INR APTT D-Dimer ABG pH POC ABG pCO2 POC ABG pO2 ABG pO2 ABG HCO3 ABG O2 Saturation ABG Base Excess ABG Hemoglobin ABG Oxyhemoglobin ABG Methemoglobin ABG Sodium ABG Potassium ABG Chloride ABG Glucose Oxyhemoglobin Carboxyhemoglobin Sodium Potassium Chloride Carbon Dioxide BUN Creatinine Glucose POC Glucose 202 H 233 H Hemoglobin A1c Calcium Phosphorus Magnesium Ferritin 1246.0 H Alkaline Phosphatase Lactate Dehydrogenase Troponin T C-Reactive Protein Total Protein Albumin Frbot-7-Dcrrwzila Rukrt-3-Tltfgtsav Beta Globulins PEP Interpretation Triglycerides HDL Cholesterol TSH Arterial Blood Glucose Arterial Blood Ionized Calcium Urine WBC (Auto) Coronavirus (PCR) 06/15/21 06/16/21 06/16/21 17:32 05:44 07:48 WBC RBC Hgb Hct RDW Plt Count Lymph % (Auto) Lymph # (Auto) Seg Neutrophils % Seg Neuts % (Manual) Lymphocytes % (Manual) Nucleated RBC % Seg Neutrophils # Seg Neutrophils # Man Lymphocytes # (Manual) Monocytes # (Manual) PT INR APTT D-Dimer ABG pH POC ABG pCO2 POC ABG pO2 ABG pO2 ABG HCO3 ABG O2 Saturation ABG Base Excess ABG Hemoglobin ABG Oxyhemoglobin ABG Methemoglobin ABG Sodium ABG Potassium ABG Chloride ABG Glucose Oxyhemoglobin Carboxyhemoglobin Sodium 154 H Potassium Chloride 117.2 H Carbon Dioxide BUN 54 H Creatinine 2.0 H Glucose 120 H POC Glucose 179 H 109 H Hemoglobin A1c Calcium Phosphorus Magnesium Ferritin Alkaline Phosphatase Lactate Dehydrogenase Troponin T C-Reactive Protein Total Protein Albumin Vlwol-4-Tafnxavgy Ttlho-2-Lzlidoymy Beta Globulins PEP Interpretation Triglycerides HDL Cholesterol TSH Arterial Blood Glucose Arterial Blood Ionized Calcium Urine WBC (Auto) Coronavirus (PCR) 06/16/21 06/16/21 06/16/21 11:13 15:22 21:15 WBC RBC Hgb Hct RDW Plt Count Lymph % (Auto) Lymph # (Auto) Seg Neutrophils % Seg Neuts % (Manual) Lymphocytes % (Manual) Nucleated RBC % Seg Neutrophils # Seg Neutrophils # Man Lymphocytes # (Manual) Monocytes # (Manual) PT INR APTT D-Dimer ABG pH POC ABG pCO2 POC ABG pO2 ABG pO2 ABG HCO3 ABG O2 Saturation ABG Base Excess ABG Hemoglobin ABG Oxyhemoglobin ABG Methemoglobin ABG Sodium ABG Potassium ABG Chloride ABG Glucose Oxyhemoglobin Carboxyhemoglobin Sodium Potassium Chloride Carbon Dioxide BUN Creatinine Glucose POC Glucose 222 H 218 H 250 H Hemoglobin A1c Calcium Phosphorus Magnesium Ferritin Alkaline Phosphatase Lactate Dehydrogenase Troponin T C-Reactive Protein Total Protein Albumin Poqww-4-Xvcnkkiqx Svfft-5-Vbfmziuey Beta Globulins PEP Interpretation Triglycerides HDL Cholesterol TSH Arterial Blood Glucose Arterial Blood Ionized Calcium Urine WBC (Auto) Coronavirus (PCR) 06/17/21 06/17/21 06/17/21 07:55 09:35 09:35 WBC RBC Hgb Hct RDW 15.7 H Plt Count 99 L Lymph % (Auto) Lymph # (Auto) Seg Neutrophils % Seg Neuts % (Manual) Lymphocytes % (Manual) Nucleated RBC % Seg Neutrophils # Seg Neutrophils # Man Lymphocytes # (Manual) Monocytes # (Manual) PT INR APTT D-Dimer ABG pH POC ABG pCO2 POC ABG pO2 ABG pO2 ABG HCO3 ABG O2 Saturation ABG Base Excess ABG Hemoglobin ABG Oxyhemoglobin ABG Methemoglobin ABG Sodium ABG Potassium ABG Chloride ABG Glucose Oxyhemoglobin Carboxyhemoglobin Sodium 148 H Potassium Chloride 113.3 H Carbon Dioxide BUN 45 H Creatinine 1.8 H Glucose 202 H POC Glucose 158 H Hemoglobin A1c Calcium Phosphorus Magnesium Ferritin Alkaline Phosphatase Lactate Dehydrogenase Troponin T C-Reactive Protein Total Protein 6.0 L Albumin 2.8 L Sksol-8-Sqbdqpcrl Zcxlc-3-Eusfhvgnd Beta Globulins PEP Interpretation Triglycerides HDL Cholesterol TSH Arterial Blood Glucose Arterial Blood Ionized Calcium Urine WBC (Auto) Coronavirus (PCR) 06/17/21 06/17/21 06/18/21 12:32 16:46 06:00 WBC RBC Hgb Hct RDW Plt Count Lymph % (Auto) Lymph # (Auto) Seg Neutrophils % Seg Neuts % (Manual) Lymphocytes % (Manual) Nucleated RBC % Seg Neutrophils # Seg Neutrophils # Man Lymphocytes # (Manual) Monocytes # (Manual) PT INR APTT D-Dimer 9804.08 H ABG pH POC ABG pCO2 POC ABG pO2 ABG pO2 ABG HCO3 ABG O2 Saturation ABG Base Excess ABG Hemoglobin ABG Oxyhemoglobin ABG Methemoglobin ABG Sodium ABG Potassium ABG Chloride ABG Glucose Oxyhemoglobin Carboxyhemoglobin Sodium Potassium Chloride Carbon Dioxide BUN Creatinine Glucose POC Glucose 227 H 203 H Hemoglobin A1c Calcium Phosphorus Magnesium Ferritin Alkaline Phosphatase Lactate Dehydrogenase Troponin T C-Reactive Protein Total Protein Albumin Gqmsb-7-Iotnercmg Mnnnp-3-Wjequekdm Beta Globulins PEP Interpretation Triglycerides HDL Cholesterol TSH Arterial Blood Glucose Arterial Blood Ionized Calcium Urine WBC (Auto) Coronavirus (PCR) 06/18/21 06/18/21 06/18/21 06:00 08:00 10:10 WBC RBC Hgb Hct RDW Plt Count Lymph % (Auto) Lymph # (Auto) Seg Neutrophils % Seg Neuts % (Manual) Lymphocytes % (Manual) Nucleated RBC % Seg Neutrophils # Seg Neutrophils # Man Lymphocytes # (Manual) Monocytes # (Manual) PT INR APTT D-Dimer ABG pH POC ABG pCO2 POC ABG pO2 ABG pO2 ABG HCO3 ABG O2 Saturation ABG Base Excess ABG Hemoglobin ABG Oxyhemoglobin ABG Methemoglobin ABG Sodium ABG Potassium ABG Chloride ABG Glucose Oxyhemoglobin Carboxyhemoglobin Sodium Potassium Chloride 110.1 H Carbon Dioxide BUN 39 H Creatinine 1.8 H Glucose 135 H POC Glucose 107 H Hemoglobin A1c Calcium Phosphorus Magnesium Ferritin 904.2 H Alkaline Phosphatase Lactate Dehydrogenase Troponin T C-Reactive Protein Total Protein Albumin Jllae-2-Zcusklnvm Cgeri-2-Uuuvtkyry Beta Globulins PEP Interpretation Triglycerides HDL Cholesterol TSH Arterial Blood Glucose Arterial Blood Ionized Calcium Urine WBC (Auto) Coronavirus (PCR) 06/18/21 06/18/21 06/18/21 12:06 16:47 21:14 WBC RBC Hgb Hct RDW Plt Count Lymph % (Auto) Lymph # (Auto) Seg Neutrophils % Seg Neuts % (Manual) Lymphocytes % (Manual) Nucleated RBC % Seg Neutrophils # Seg Neutrophils # Man Lymphocytes # (Manual) Monocytes # (Manual) PT INR APTT D-Dimer ABG pH POC ABG pCO2 POC ABG pO2 ABG pO2 ABG HCO3 ABG O2 Saturation ABG Base Excess ABG Hemoglobin ABG Oxyhemoglobin ABG Methemoglobin ABG Sodium ABG Potassium ABG Chloride ABG Glucose Oxyhemoglobin Carboxyhemoglobin Sodium Potassium Chloride Carbon Dioxide BUN Creatinine Glucose POC Glucose 160 H 236 H 186 H Hemoglobin A1c Calcium Phosphorus Magnesium Ferritin Alkaline Phosphatase Lactate Dehydrogenase Troponin T C-Reactive Protein Total Protein Albumin Qvpvn-7-Luqgiijzh Wzqrt-9-Cfcmztetr Beta Globulins PEP Interpretation Triglycerides HDL Cholesterol TSH Arterial Blood Glucose Arterial Blood Ionized Calcium Urine WBC (Auto) Coronavirus (PCR) 06/19/21 06/19/21 06/20/21 15:46 15:46 08:04 WBC RBC Hgb Hct RDW 15.5 H Plt Count 73 L Lymph % (Auto) Lymph # (Auto) Seg Neutrophils % Seg Neuts % (Manual) Lymphocytes % (Manual) Nucleated RBC % Seg Neutrophils # Seg Neutrophils # Man Lymphocytes # (Manual) Monocytes # (Manual) PT INR APTT D-Dimer ABG pH POC ABG pCO2 POC ABG pO2 ABG pO2 ABG HCO3 ABG O2 Saturation ABG Base Excess ABG Hemoglobin ABG Oxyhemoglobin ABG Methemoglobin ABG Sodium ABG Potassium ABG Chloride ABG Glucose Oxyhemoglobin Carboxyhemoglobin Sodium 146 H Potassium Chloride 108.9 H Carbon Dioxide BUN 38 H Creatinine 1.7 H Glucose POC Glucose 52 L Hemoglobin A1c Calcium Phosphorus Magnesium Ferritin Alkaline Phosphatase Lactate Dehydrogenase Troponin T C-Reactive Protein Total Protein Albumin Mpegp-0-Nupxxlpil Yjgnq-8-Jfbqufkvp Beta Globulins PEP Interpretation Triglycerides HDL Cholesterol TSH Arterial Blood Glucose Arterial Blood Ionized Calcium Urine WBC (Auto) Coronavirus (PCR) 06/20/21 06/20/21 06/20/21 11:58 15:16 17:54 WBC RBC Hgb Hct RDW Plt Count Lymph % (Auto) Lymph # (Auto) Seg Neutrophils % Seg Neuts % (Manual) Lymphocytes % (Manual) Nucleated RBC % Seg Neutrophils # Seg Neutrophils # Man Lymphocytes # (Manual) Monocytes # (Manual) PT INR APTT D-Dimer ABG pH POC ABG pCO2 POC ABG pO2 ABG pO2 ABG HCO3 ABG O2 Saturation ABG Base Excess ABG Hemoglobin ABG Oxyhemoglobin ABG Methemoglobin ABG Sodium ABG Potassium ABG Chloride ABG Glucose Oxyhemoglobin Carboxyhemoglobin Sodium 146 H Potassium Chloride 108.2 H Carbon Dioxide BUN 37 H Creatinine 1.7 H Glucose 131 H POC Glucose 58 L 219 H Hemoglobin A1c Calcium Phosphorus Magnesium Ferritin Alkaline Phosphatase Lactate Dehydrogenase Troponin T C-Reactive Protein Total Protein Albumin Uckmo-2-Txkiuozuu Jvwjo-9-Clxgykqtv Beta Globulins PEP Interpretation Triglycerides HDL Cholesterol TSH Arterial Blood Glucose Arterial Blood Ionized Calcium Urine WBC (Auto) Coronavirus (PCR) 06/20/21 06/21/21 06/21/21 21:58 06:00 07:41 WBC RBC Hgb Hct RDW Plt Count Lymph % (Auto) Lymph # (Auto) Seg Neutrophils % Seg Neuts % (Manual) Lymphocytes % (Manual) Nucleated RBC % Seg Neutrophils # Seg Neutrophils # Man Lymphocytes # (Manual) Monocytes # (Manual) PT INR APTT D-Dimer ABG pH POC ABG pCO2 POC ABG pO2 ABG pO2 ABG HCO3 ABG O2 Saturation ABG Base Excess ABG Hemoglobin ABG Oxyhemoglobin ABG Methemoglobin ABG Sodium ABG Potassium ABG Chloride ABG Glucose Oxyhemoglobin Carboxyhemoglobin Sodium Potassium Chloride Carbon Dioxide BUN 42 H Creatinine 2.0 H Glucose 225 H POC Glucose 180 H 204 H Hemoglobin A1c Calcium Phosphorus Magnesium Ferritin Alkaline Phosphatase Lactate Dehydrogenase Troponin T C-Reactive Protein Total Protein Albumin Qbovm-9-Qjhjzsqtn Yxbke-1-Scpsqvtub Beta Globulins PEP Interpretation Triglycerides HDL Cholesterol TSH Arterial Blood Glucose Arterial Blood Ionized Calcium Urine WBC (Auto) Coronavirus (PCR) 06/21/21 06/21/21 06/21/21 11:01 11:20 15:57 WBC RBC Hgb Hct RDW Plt Count Lymph % (Auto) Lymph # (Auto) Seg Neutrophils % Seg Neuts % (Manual) Lymphocytes % (Manual) Nucleated RBC % Seg Neutrophils # Seg Neutrophils # Man Lymphocytes # (Manual) Monocytes # (Manual) PT INR APTT D-Dimer ABG pH POC ABG pCO2 POC ABG pO2 58.9 L ABG pO2 ABG HCO3 ABG O2 Saturation ABG Base Excess ABG Hemoglobin ABG Oxyhemoglobin 87.4 L ABG Methemoglobin ABG Sodium ABG Potassium ABG Chloride ABG Glucose 212 H Oxyhemoglobin Carboxyhemoglobin Sodium Potassium Chloride Carbon Dioxide BUN Creatinine Glucose POC Glucose 194 H 171 H Hemoglobin A1c Calcium Phosphorus Magnesium Ferritin Alkaline Phosphatase Lactate Dehydrogenase Troponin T C-Reactive Protein Total Protein Albumin Peszw-7-Zjpxxlegn Cmhok-5-Alakbbiqo Beta Globulins PEP Interpretation Triglycerides HDL Cholesterol TSH Arterial Blood Glucose 212 H Arterial Blood Ionized Calcium 4.5 L Urine WBC (Auto) Coronavirus (PCR) 06/21/21 06/21/21 06/21/21 17:52 17:55 22:09 WBC RBC Hgb Hct RDW Plt Count Lymph % (Auto) Lymph # (Auto) Seg Neutrophils % Seg Neuts % (Manual) Lymphocytes % (Manual) Nucleated RBC % Seg Neutrophils # Seg Neutrophils # Man Lymphocytes # (Manual) Monocytes # (Manual) PT INR APTT D-Dimer ABG pH 7.316 L POC ABG pCO2 51.7 H POC ABG pO2 62.3 L ABG pO2 ABG HCO3 ABG O2 Saturation ABG Base Excess ABG Hemoglobin ABG Oxyhemoglobin 88.7 L ABG Methemoglobin ABG Sodium ABG Potassium ABG Chloride ABG Glucose 197 H Oxyhemoglobin Carboxyhemoglobin Sodium Potassium Chloride Carbon Dioxide BUN Creatinine Glucose POC Glucose 153 H 178 H Hemoglobin A1c Calcium Phosphorus Magnesium Ferritin Alkaline Phosphatase Lactate Dehydrogenase Troponin T C-Reactive Protein Total Protein Albumin Zvysf-8-Oabvoudnn Djskz-9-Nxlqqhxra Beta Globulins PEP Interpretation Triglycerides HDL Cholesterol TSH Arterial Blood Glucose 197 H Arterial Blood Ionized Calcium Urine WBC (Auto) Coronavirus (PCR) 06/22/21 06/22/21 06/22/21 07:30 07:43 11:47 WBC RBC Hgb Hct RDW Plt Count Lymph % (Auto) Lymph # (Auto) Seg Neutrophils % Seg Neuts % (Manual) Lymphocytes % (Manual) Nucleated RBC % Seg Neutrophils # Seg Neutrophils # Man Lymphocytes # (Manual) Monocytes # (Manual) PT INR APTT D-Dimer ABG pH POC ABG pCO2 POC ABG pO2 ABG pO2 ABG HCO3 ABG O2 Saturation ABG Base Excess ABG Hemoglobin ABG Oxyhemoglobin ABG Methemoglobin ABG Sodium ABG Potassium ABG Chloride ABG Glucose Oxyhemoglobin Carboxyhemoglobin Sodium Potassium Chloride Carbon Dioxide 21 L BUN 55 H Creatinine 2.8 H Glucose 219 H POC Glucose 235 H 222 H Hemoglobin A1c Calcium Phosphorus Magnesium Ferritin Alkaline Phosphatase Lactate Dehydrogenase Troponin T C-Reactive Protein Total Protein Albumin Yvnne-8-Jkrfjpulo Xpkeg-5-Stixjsjcl Beta Globulins PEP Interpretation Triglycerides HDL Cholesterol TSH Arterial Blood Glucose Arterial Blood Ionized Calcium Urine WBC (Auto) Coronavirus (PCR) 06/22/21 06/22/21 06/22/21 11:50 12:10 15:15 WBC RBC Hgb Hct RDW Plt Count Lymph % (Auto) Lymph # (Auto) Seg Neutrophils % Seg Neuts % (Manual) Lymphocytes % (Manual) Nucleated RBC % Seg Neutrophils # Seg Neutrophils # Man Lymphocytes # (Manual) Monocytes # (Manual) PT INR APTT D-Dimer ABG pH 7.273 L POC ABG pCO2 POC ABG pO2 56.8 L 56.8 L ABG pO2 58.0 L ABG HCO3 ABG O2 Saturation 85.7 L ABG Base Excess -4.9 L ABG Hemoglobin ABG Oxyhemoglobin 86.7 L 86.7 L ABG Methemoglobin ABG Sodium ABG Potassium ABG Chloride ABG Glucose Oxyhemoglobin 84.1 L Carboxyhemoglobin Sodium Potassium Chloride Carbon Dioxide BUN Creatinine Glucose POC Glucose Hemoglobin A1c Calcium Phosphorus Magnesium Ferritin Alkaline Phosphatase Lactate Dehydrogenase Troponin T C-Reactive Protein Total Protein Albumin Esbtb-1-Slswhtyas Lvgaz-0-Zewrvatop Beta Globulins PEP Interpretation Triglycerides HDL Cholesterol TSH Arterial Blood Glucose Arterial Blood Ionized Calcium Urine WBC (Auto) Coronavirus (PCR) 06/22/21 06/22/21 06/22/21 17:28 21:22 23:35 WBC RBC Hgb Hct RDW Plt Count Lymph % (Auto) Lymph # (Auto) Seg Neutrophils % Seg Neuts % (Manual) Lymphocytes % (Manual) Nucleated RBC % Seg Neutrophils # Seg Neutrophils # Man Lymphocytes # (Manual) Monocytes # (Manual) PT INR APTT D-Dimer ABG pH 7.217 L POC ABG pCO2 POC ABG pO2 ABG pO2 61.7 L ABG HCO3 ABG O2 Saturation 87.3 L ABG Base Excess -6.0 L ABG Hemoglobin ABG Oxyhemoglobin ABG Methemoglobin ABG Sodium ABG Potassium ABG Chloride ABG Glucose Oxyhemoglobin 85.4 L Carboxyhemoglobin Sodium Potassium Chloride Carbon Dioxide BUN Creatinine Glucose POC Glucose 221 H 204 H Hemoglobin A1c Calcium Phosphorus Magnesium Ferritin Alkaline Phosphatase Lactate Dehydrogenase Troponin T C-Reactive Protein Total Protein Albumin Azyod-2-Gjoorxlys Ftniw-4-Jpwxonjix Beta Globulins PEP Interpretation Triglycerides HDL Cholesterol TSH Arterial Blood Glucose Arterial Blood Ionized Calcium Urine WBC (Auto) Coronavirus (PCR) 06/23/21 06/23/21 06/23/21 04:42 04:42 04:42 WBC 19.0 H RBC 5.04 H Hgb Hct 44.5 H RDW 16.6 H Plt Count 61 L Lymph % (Auto) Lymph # (Auto) Seg Neutrophils % Seg Neuts % (Manual) Lymphocytes % (Manual) 2.0 L Nucleated RBC % 46.0 H Seg Neutrophils # Seg Neutrophils # Man 13.1 H Lymphocytes # (Manual) 0.4 L Monocytes # (Manual) 1.1 H PT INR APTT D-Dimer 6308.27 H ABG pH POC ABG pCO2 POC ABG pO2 ABG pO2 ABG HCO3 ABG O2 Saturation ABG Base Excess ABG Hemoglobin ABG Oxyhemoglobin ABG Methemoglobin ABG Sodium ABG Potassium ABG Chloride ABG Glucose Oxyhemoglobin Carboxyhemoglobin Sodium Potassium 6.3 H* D Chloride Carbon Dioxide 21 L BUN 72 H Creatinine 4.6 H D Glucose 225 H POC Glucose Hemoglobin A1c Calcium 8.0 L Phosphorus Magnesium Ferritin Alkaline Phosphatase Lactate Dehydrogenase Troponin T C-Reactive Protein Total Protein Albumin Pqltn-3-Fqmqbwzhp Jkodq-8-Srgqyrxwm Beta Globulins PEP Interpretation Triglycerides HDL Cholesterol TSH Arterial Blood Glucose Arterial Blood Ionized Calcium Urine WBC (Auto) Coronavirus (PCR) 06/23/21 06/23/21 06/23/21 04:42 04:42 05:33 WBC RBC Hgb Hct RDW Plt Count Lymph % (Auto) Lymph # (Auto) Seg Neutrophils % Seg Neuts % (Manual) Lymphocytes % (Manual) Nucleated RBC % Seg Neutrophils # Seg Neutrophils # Man Lymphocytes # (Manual) Monocytes # (Manual) PT INR APTT D-Dimer ABG pH POC ABG pCO2 POC ABG pO2 ABG pO2 ABG HCO3 ABG O2 Saturation ABG Base Excess ABG Hemoglobin ABG Oxyhemoglobin ABG Methemoglobin ABG Sodium ABG Potassium ABG Chloride ABG Glucose Oxyhemoglobin Carboxyhemoglobin Sodium Potassium Chloride Carbon Dioxide BUN Creatinine Glucose POC Glucose 227 H Hemoglobin A1c Calcium 7.9 L Phosphorus 8.30 H Magnesium Ferritin 1496.0 H Alkaline Phosphatase Lactate Dehydrogenase Troponin T C-Reactive Protein 4.40 H Total Protein Albumin Swfsx-3-Ispghqttb Dubji-4-Pqbwgggam Beta Globulins PEP Interpretation Triglycerides HDL Cholesterol TSH Arterial Blood Glucose Arterial Blood Ionized Calcium Urine WBC (Auto) Coronavirus (PCR) 06/23/21 06/23/21 06/23/21 11:00 11:31 17:40 WBC RBC Hgb Hct RDW Plt Count Lymph % (Auto) Lymph # (Auto) Seg Neutrophils % Seg Neuts % (Manual) Lymphocytes % (Manual) Nucleated RBC % Seg Neutrophils # Seg Neutrophils # Man Lymphocytes # (Manual) Monocytes # (Manual) PT INR APTT D-Dimer ABG pH 7.177 L POC ABG pCO2 58.9 H POC ABG pO2 60.2 L ABG pO2 ABG HCO3 ABG O2 Saturation ABG Base Excess ABG Hemoglobin ABG Oxyhemoglobin 83.5 L ABG Methemoglobin 1.8 H ABG Sodium ABG Potassium ABG Chloride ABG Glucose Oxyhemoglobin Carboxyhemoglobin Sodium Potassium Chloride Carbon Dioxide BUN Creatinine Glucose POC Glucose 207 H Hemoglobin A1c Calcium Phosphorus Magnesium Ferritin Alkaline Phosphatase Lactate Dehydrogenase Troponin T C-Reactive Protein Total Protein Albumin Gjeqi-0-Crxixszkd Ffsam-3-Ajywgiwmw Beta Globulins PEP Interpretation Triglycerides HDL Cholesterol TSH Arterial Blood Glucose Arterial Blood Ionized Calcium Urine WBC (Auto) > 182.0 H Coronavirus (PCR) 06/23/21 06/23/21 06/23/21 17:52 21:12 Unknown WBC RBC Hgb Hct RDW Plt Count Lymph % (Auto) Lymph # (Auto) Seg Neutrophils % Seg Neuts % (Manual) Lymphocytes % (Manual) Nucleated RBC % Seg Neutrophils # Seg Neutrophils # Man Lymphocytes # (Manual) Monocytes # (Manual) PT INR APTT D-Dimer 6308 H ABG pH 7.214 L POC ABG pCO2 60.2 H POC ABG pO2 78.9 L ABG pO2 ABG HCO3 ABG O2 Saturation ABG Base Excess ABG Hemoglobin ABG Oxyhemoglobin 93.4 L ABG Methemoglobin ABG Sodium ABG Potassium 6.3 H ABG Chloride ABG Glucose 338 H Oxyhemoglobin Carboxyhemoglobin Sodium Potassium Chloride Carbon Dioxide BUN Creatinine Glucose POC Glucose 232 H Hemoglobin A1c Calcium Phosphorus Magnesium Ferritin Alkaline Phosphatase Lactate Dehydrogenase Troponin T C-Reactive Protein Total Protein Albumin Qsleh-7-Fmekceaze Snmng-8-Xaqzfqoln Beta Globulins PEP Interpretation Triglycerides HDL Cholesterol TSH Arterial Blood Glucose 338 H Arterial Blood Ionized Calcium 4.1 L Urine WBC (Auto) Coronavirus (PCR) 06/23/21 06/23/21 06/23/21 Unknown Unknown Unknown WBC RBC Hgb Hct RDW Plt Count Lymph % (Auto) Lymph # (Auto) Seg Neutrophils % Seg Neuts % (Manual) Lymphocytes % (Manual) Nucleated RBC % Seg Neutrophils # Seg Neutrophils # Man Lymphocytes # (Manual) Monocytes # (Manual) PT 24.6 H INR 2.18 H APTT 43.8 H D-Dimer ABG pH POC ABG pCO2 POC ABG pO2 ABG pO2 ABG HCO3 ABG O2 Saturation ABG Base Excess ABG Hemoglobin ABG Oxyhemoglobin ABG Methemoglobin ABG Sodium ABG Potassium ABG Chloride ABG Glucose Oxyhemoglobin Carboxyhemoglobin Sodium 146 H Potassium 5.3 H Chloride 113.2 H Carbon Dioxide 20 L BUN 73 H Creatinine 4.2 H Glucose 234 H POC Glucose Hemoglobin A1c Calcium 6.3 L D Phosphorus Magnesium Ferritin 1094.0 H Alkaline Phosphatase Lactate Dehydrogenase Troponin T C-Reactive Protein Total Protein 4.3 L Albumin 2.0 L Qykzi-5-Zjcbihjab Edyrf-7-Pymballlk Beta Globulins PEP Interpretation Triglycerides HDL Cholesterol TSH Arterial Blood Glucose Arterial Blood Ionized Calcium Urine WBC (Auto) Coronavirus (PCR) 06/24/21 06/24/21 06/24/21 00:03 04:55 04:55 WBC 18.7 H RBC Hgb Hct RDW 16.8 H Plt Count 42 L Lymph % (Auto) Lymph # (Auto) Seg Neutrophils % Seg Neuts % (Manual) Lymphocytes % (Manual) 1.0 L Nucleated RBC % 1.0 H Seg Neutrophils # Seg Neutrophils # Man 12.7 H Lymphocytes # (Manual) 0.2 L Monocytes # (Manual) PT INR APTT D-Dimer ABG pH POC ABG pCO2 POC ABG pO2 ABG pO2 ABG HCO3 ABG O2 Saturation ABG Base Excess ABG Hemoglobin ABG Oxyhemoglobin ABG Methemoglobin ABG Sodium ABG Potassium ABG Chloride ABG Glucose Oxyhemoglobin Carboxyhemoglobin Sodium Potassium 6.0 H Chloride Carbon Dioxide 20 L BUN 86 H Creatinine 5.4 H Glucose 309 H POC Glucose 265 H Hemoglobin A1c Calcium 6.5 L Phosphorus 7.60 H Magnesium Ferritin Alkaline Phosphatase Lactate Dehydrogenase Troponin T C-Reactive Protein Total Protein 4.6 L Albumin 2.1 L Ykjrr-7-Lgehmwflu Vpgrn-0-Uaaqnoayk Beta Globulins PEP Interpretation Triglycerides HDL Cholesterol TSH Arterial Blood Glucose Arterial Blood Ionized Calcium Urine WBC (Auto) Coronavirus (PCR) 06/24/21 06/24/21 06/24/21 04:55 06:01 11:38 WBC RBC Hgb Hct RDW Plt Count Lymph % (Auto) Lymph # (Auto) Seg Neutrophils % Seg Neuts % (Manual) Lymphocytes % (Manual) Nucleated RBC % Seg Neutrophils # Seg Neutrophils # Man Lymphocytes # (Manual) Monocytes # (Manual) PT 22.2 H INR 1.90 H APTT D-Dimer ABG pH POC ABG pCO2 POC ABG pO2 ABG pO2 ABG HCO3 ABG O2 Saturation ABG Base Excess ABG Hemoglobin ABG Oxyhemoglobin ABG Methemoglobin ABG Sodium ABG Potassium ABG Chloride ABG Glucose Oxyhemoglobin Carboxyhemoglobin Sodium Potassium Chloride Carbon Dioxide BUN Creatinine Glucose POC Glucose 257 H 288 H Hemoglobin A1c Calcium Phosphorus Magnesium Ferritin Alkaline Phosphatase Lactate Dehydrogenase Troponin T C-Reactive Protein Total Protein Albumin Ipetv-9-Sgsswafab Vdyeo-7-Wxdjgjwdj Beta Globulins PEP Interpretation Triglycerides HDL Cholesterol TSH Arterial Blood Glucose Arterial Blood Ionized Calcium Urine WBC (Auto) Coronavirus (PCR) 06/24/21 06/24/21 06/25/21 18:02 23:29 05:12 WBC RBC Hgb Hct RDW Plt Count Lymph % (Auto) Lymph # (Auto) Seg Neutrophils % Seg Neuts % (Manual) Lymphocytes % (Manual) Nucleated RBC % Seg Neutrophils # Seg Neutrophils # Man Lymphocytes # (Manual) Monocytes # (Manual) PT INR APTT D-Dimer ABG pH POC ABG pCO2 POC ABG pO2 ABG pO2 ABG HCO3 ABG O2 Saturation ABG Base Excess ABG Hemoglobin ABG Oxyhemoglobin ABG Methemoglobin ABG Sodium ABG Potassium ABG Chloride ABG Glucose Oxyhemoglobin Carboxyhemoglobin Sodium Potassium Chloride Carbon Dioxide BUN Creatinine Glucose POC Glucose 299 H 269 H 283 H Hemoglobin A1c Calcium Phosphorus Magnesium Ferritin Alkaline Phosphatase Lactate Dehydrogenase Troponin T C-Reactive Protein Total Protein Albumin Jojrn-2-Uquoxejld Jlgnh-4-Xmjyzksaz Beta Globulins PEP Interpretation Triglycerides HDL Cholesterol TSH Arterial Blood Glucose Arterial Blood Ionized Calcium Urine WBC (Auto) Coronavirus (PCR) 06/25/21 06/25/21 06/25/21 09:05 09:05 09:05 WBC 14.5 H RBC Hgb Hct RDW 16.4 H Plt Count 41 L Lymph % (Auto) Lymph # (Auto) Seg Neutrophils % Seg Neuts % (Manual) Lymphocytes % (Manual) Nucleated RBC % Seg Neutrophils # Seg Neutrophils # Man Lymphocytes # (Manual) Monocytes # (Manual) PT 20.2 H INR 1.68 H APTT D-Dimer ABG pH POC ABG pCO2 POC ABG pO2 ABG pO2 ABG HCO3 ABG O2 Saturation ABG Base Excess ABG Hemoglobin ABG Oxyhemoglobin ABG Methemoglobin ABG Sodium ABG Potassium ABG Chloride ABG Glucose Oxyhemoglobin Carboxyhemoglobin Sodium Potassium 5.5 H Chloride 97.2 L Carbon Dioxide BUN 88 H Creatinine 5.6 H Glucose 370 H POC Glucose Hemoglobin A1c Calcium 7.4 L Phosphorus 8.00 H Magnesium Ferritin Alkaline Phosphatase Lactate Dehydrogenase Troponin T C-Reactive Protein Total Protein 5.1 L Albumin 2.5 L Rpabw-1-Ownqrgabd Pmnze-8-Azjxtdoht Beta Globulins PEP Interpretation Triglycerides HDL Cholesterol TSH Arterial Blood Glucose Arterial Blood Ionized Calcium Urine WBC (Auto) Coronavirus (PCR) 06/25/21 06/25/21 06/25/21 09:29 12:05 17:28 WBC RBC Hgb Hct RDW Plt Count Lymph % (Auto) Lymph # (Auto) Seg Neutrophils % Seg Neuts % (Manual) Lymphocytes % (Manual) Nucleated RBC % Seg Neutrophils # Seg Neutrophils # Man Lymphocytes # (Manual) Monocytes # (Manual) PT INR APTT D-Dimer ABG pH 7.304 L POC ABG pCO2 53.2 H POC ABG pO2 ABG pO2 ABG HCO3 ABG O2 Saturation ABG Base Excess ABG Hemoglobin 10.9 L ABG Oxyhemoglobin ABG Methemoglobin ABG Sodium 133.9 L ABG Potassium 5.8 H ABG Chloride ABG Glucose 380 H Oxyhemoglobin Carboxyhemoglobin 0.4 L Sodium Potassium Chloride Carbon Dioxide BUN Creatinine Glucose POC Glucose 359 H 288 H Hemoglobin A1c Calcium Phosphorus Magnesium Ferritin Alkaline Phosphatase Lactate Dehydrogenase Troponin T C-Reactive Protein Total Protein Albumin Tikoi-1-Ozgcntfun Wiuma-7-Lopngklgz Beta Globulins PEP Interpretation Triglycerides HDL Cholesterol TSH Arterial Blood Glucose 380 H Arterial Blood Ionized Calcium Urine WBC (Auto) Coronavirus (PCR) 06/25/21 06/25/21 06/26/21 21:00 23:46 05:14 WBC RBC Hgb Hct RDW Plt Count Lymph % (Auto) Lymph # (Auto) Seg Neutrophils % Seg Neuts % (Manual) Lymphocytes % (Manual) Nucleated RBC % Seg Neutrophils # Seg Neutrophils # Man Lymphocytes # (Manual) Monocytes # (Manual) PT INR APTT D-Dimer ABG pH 7.280 L 7.268 L POC ABG pCO2 59.7 H 60.2 H POC ABG pO2 113.7 H ABG pO2 ABG HCO3 ABG O2 Saturation ABG Base Excess ABG Hemoglobin 11.4 L 10.9 L ABG Oxyhemoglobin ABG Methemoglobin ABG Sodium 134.4 L 133.3 L ABG Potassium 4.7 H ABG Chloride ABG Glucose 313 H 353 H Oxyhemoglobin Carboxyhemoglobin 0.4 L Sodium Potassium Chloride Carbon Dioxide BUN Creatinine Glucose POC Glucose 325 H Hemoglobin A1c Calcium Phosphorus Magnesium Ferritin Alkaline Phosphatase Lactate Dehydrogenase Troponin T C-Reactive Protein Total Protein Albumin Ktlod-3-Yenpojnyw Eleig-1-Tfghcljfg Beta Globulins PEP Interpretation Triglycerides HDL Cholesterol TSH Arterial Blood Glucose 313 H 353 H Arterial Blood Ionized Calcium Urine WBC (Auto) Coronavirus (PCR) 06/26/21 06/26/21 06/26/21 05:27 07:00 07:00 WBC 11.4 H RBC 3.63 L Hgb Hct RDW 15.6 H Plt Count 29 L Lymph % (Auto) 6.4 L Lymph # (Auto) 0.7 L Seg Neutrophils % 87.9 H Seg Neuts % (Manual) Lymphocytes % (Manual) Nucleated RBC % Seg Neutrophils # 10.4 H Seg Neutrophils # Man Lymphocytes # (Manual) Monocytes # (Manual) PT INR APTT D-Dimer ABG pH POC ABG pCO2 POC ABG pO2 ABG pO2 ABG HCO3 ABG O2 Saturation ABG Base Excess ABG Hemoglobin ABG Oxyhemoglobin ABG Methemoglobin ABG Sodium ABG Potassium ABG Chloride ABG Glucose Oxyhemoglobin Carboxyhemoglobin Sodium Potassium Chloride Carbon Dioxide BUN Creatinine Glucose POC Glucose 345 H Hemoglobin A1c Calcium Phosphorus 7.40 H Magnesium Ferritin Alkaline Phosphatase Lactate Dehydrogenase Troponin T C-Reactive Protein Total Protein Albumin Hdzth-5-Gxuvgkkeq Ldchf-9-Uebghhzng Beta Globulins PEP Interpretation Triglycerides HDL Cholesterol TSH Arterial Blood Glucose Arterial Blood Ionized Calcium Urine WBC (Auto) Coronavirus (PCR) 06/26/21 06/26/21 06/26/21 10:00 10:00 13:01 WBC RBC Hgb Hct RDW Plt Count Lymph % (Auto) Lymph # (Auto) Seg Neutrophils % Seg Neuts % (Manual) Lymphocytes % (Manual) Nucleated RBC % Seg Neutrophils # Seg Neutrophils # Man Lymphocytes # (Manual) Monocytes # (Manual) PT INR APTT D-Dimer 1363.54 H ABG pH POC ABG pCO2 POC ABG pO2 ABG pO2 ABG HCO3 ABG O2 Saturation ABG Base Excess ABG Hemoglobin ABG Oxyhemoglobin ABG Methemoglobin ABG Sodium ABG Potassium ABG Chloride ABG Glucose Oxyhemoglobin Carboxyhemoglobin Sodium 136 L Potassium Chloride 96.1 L Carbon Dioxide BUN 78 H Creatinine 4.6 H Glucose 378 H POC Glucose 363 H Hemoglobin A1c Calcium 8.3 L Phosphorus Magnesium Ferritin Alkaline Phosphatase Lactate Dehydrogenase Troponin T C-Reactive Protein Total Protein Albumin Tcjvi-6-Jiwoeqvpj Rbwoc-7-Sdbiffzfh Beta Globulins PEP Interpretation Triglycerides HDL Cholesterol TSH Arterial Blood Glucose Arterial Blood Ionized Calcium Urine WBC (Auto) Coronavirus (PCR) 06/26/21 06/26/21 06/27/21 18:53 23:08 00:15 WBC RBC Hgb Hct RDW Plt Count Lymph % (Auto) Lymph # (Auto) Seg Neutrophils % Seg Neuts % (Manual) Lymphocytes % (Manual) Nucleated RBC % Seg Neutrophils # Seg Neutrophils # Man Lymphocytes # (Manual) Monocytes # (Manual) PT INR APTT D-Dimer ABG pH POC ABG pCO2 POC ABG pO2 ABG pO2 ABG HCO3 ABG O2 Saturation ABG Base Excess ABG Hemoglobin ABG Oxyhemoglobin ABG Methemoglobin ABG Sodium ABG Potassium ABG Chloride ABG Glucose Oxyhemoglobin Carboxyhemoglobin Sodium Potassium Chloride Carbon Dioxide BUN Creatinine Glucose POC Glucose 329 H 337 H 308 H Hemoglobin A1c Calcium Phosphorus Magnesium Ferritin Alkaline Phosphatase Lactate Dehydrogenase Troponin T C-Reactive Protein Total Protein Albumin Oitqs-9-Nsqblaedj Ktynr-5-Vprzdshhi Beta Globulins PEP Interpretation Triglycerides HDL Cholesterol TSH Arterial Blood Glucose Arterial Blood Ionized Calcium Urine WBC (Auto) Coronavirus (PCR) 06/27/21 06/27/21 06/27/21 05:13 06:40 06:40 WBC 12.5 H RBC Hgb Hct RDW 16.1 H Plt Count 23 L Lymph % (Auto) Lymph # (Auto) Seg Neutrophils % Seg Neuts % (Manual) Lymphocytes % (Manual) Nucleated RBC % Seg Neutrophils # 11.3 H Seg Neutrophils # Man Lymphocytes # (Manual) Monocytes # (Manual) PT INR APTT D-Dimer ABG pH POC ABG pCO2 POC ABG pO2 ABG pO2 ABG HCO3 ABG O2 Saturation ABG Base Excess ABG Hemoglobin ABG Oxyhemoglobin ABG Methemoglobin ABG Sodium ABG Potassium ABG Chloride ABG Glucose Oxyhemoglobin Carboxyhemoglobin Sodium 133 L Potassium 5.4 H Chloride 93.4 L Carbon Dioxide BUN 96 H Creatinine 5.6 H Glucose 388 H POC Glucose 329 H Hemoglobin A1c Calcium 8.3 L Phosphorus 8.70 H Magnesium Ferritin Alkaline Phosphatase Lactate Dehydrogenase Troponin T C-Reactive Protein Total Protein Albumin Fcmhr-9-Maetiatwd Hlujl-4-Anwhffrfp Beta Globulins PEP Interpretation Triglycerides HDL Cholesterol TSH Arterial Blood Glucose Arterial Blood Ionized Calcium Urine WBC (Auto) Coronavirus (PCR) 06/27/21 06/27/21 06/27/21 11:46 16:30 17:12 WBC RBC Hgb Hct RDW Plt Count Lymph % (Auto) Lymph # (Auto) Seg Neutrophils % Seg Neuts % (Manual) Lymphocytes % (Manual) Nucleated RBC % Seg Neutrophils # Seg Neutrophils # Man Lymphocytes # (Manual) Monocytes # (Manual) PT INR APTT D-Dimer ABG pH 7.180 L POC ABG pCO2 62.9 H POC ABG pO2 111.1 H ABG pO2 ABG HCO3 ABG O2 Saturation ABG Base Excess ABG Hemoglobin 10.7 L ABG Oxyhemoglobin ABG Methemoglobin ABG Sodium 130.6 L ABG Potassium 5.1 H ABG Chloride 95.0 L ABG Glucose 364 H Oxyhemoglobin Carboxyhemoglobin Sodium Potassium Chloride Carbon Dioxide BUN Creatinine Glucose POC Glucose 330 H 276 H Hemoglobin A1c Calcium Phosphorus Magnesium Ferritin Alkaline Phosphatase Lactate Dehydrogenase Troponin T C-Reactive Protein Total Protein Albumin Pmrrd-2-Bekiftqki Euegq-9-Pupjgeyve Beta Globulins PEP Interpretation Triglycerides HDL Cholesterol TSH Arterial Blood Glucose 364 H Arterial Blood Ionized Calcium 4.4 L Urine WBC (Auto) Coronavirus (PCR) 06/27/21 06/27/21 06/27/21 21:00 21:16 23:15 WBC RBC Hgb Hct RDW Plt Count Lymph % (Auto) Lymph # (Auto) Seg Neutrophils % Seg Neuts % (Manual) Lymphocytes % (Manual) Nucleated RBC % Seg Neutrophils # Seg Neutrophils # Man Lymphocytes # (Manual) Monocytes # (Manual) PT INR APTT D-Dimer ABG pH 7.283 L 7.257 L POC ABG pCO2 60.1 H POC ABG pO2 ABG pO2 55.0 L ABG HCO3 27.6 H ABG O2 Saturation 85.3 L ABG Base Excess ABG Hemoglobin 10.4 L 9.8 L ABG Oxyhemoglobin ABG Methemoglobin ABG Sodium 135.7 L ABG Potassium ABG Chloride 97.0 L ABG Glucose 309 H Oxyhemoglobin 83.3 L Carboxyhemoglobin Sodium Potassium Chloride Carbon Dioxide BUN Creatinine Glucose POC Glucose 265 H Hemoglobin A1c Calcium Phosphorus Magnesium Ferritin Alkaline Phosphatase Lactate Dehydrogenase Troponin T C-Reactive Protein Total Protein Albumin Qswcd-9-Xmjahwpjx Fhsda-0-Xfjhgxhqi Beta Globulins PEP Interpretation Triglycerides HDL Cholesterol TSH Arterial Blood Glucose 309 H Arterial Blood Ionized Calcium Urine WBC (Auto) Coronavirus (PCR) 06/27/21 06/28/21 06/28/21 Unknown 04:25 04:25 WBC 11.6 H RBC 3.44 L Hgb 9.9 L Hct RDW 15.7 H Plt Count 36 L Lymph % (Auto) 7.6 L Lymph # (Auto) 0.9 L Seg Neutrophils % 86.7 H Seg Neuts % (Manual) Lymphocytes % (Manual) Nucleated RBC % Seg Neutrophils # 10.0 H Seg Neutrophils # Man Lymphocytes # (Manual) Monocytes # (Manual) PT 16.5 H INR 1.27 H APTT D-Dimer ABG pH 7.230 L POC ABG pCO2 POC ABG pO2 ABG pO2 92.0 H ABG HCO3 26.2 H ABG O2 Saturation ABG Base Excess ABG Hemoglobin 8.2 L ABG Oxyhemoglobin ABG Methemoglobin ABG Sodium ABG Potassium ABG Chloride ABG Glucose Oxyhemoglobin 94.6 L Carboxyhemoglobin Sodium Potassium Chloride Carbon Dioxide BUN Creatinine Glucose POC Glucose Hemoglobin A1c Calcium Phosphorus Magnesium Ferritin Alkaline Phosphatase Lactate Dehydrogenase Troponin T C-Reactive Protein Total Protein Albumin Maldn-1-Cckzhzygb Hlvha-2-Jrwjcwpnc Beta Globulins PEP Interpretation Triglycerides HDL Cholesterol TSH Arterial Blood Glucose Arterial Blood Ionized Calcium Urine WBC (Auto) Coronavirus (PCR) 06/28/21 06/28/21 06/28/21 04:25 05:35 12:22 WBC RBC Hgb Hct RDW Plt Count Lymph % (Auto) Lymph # (Auto) Seg Neutrophils % Seg Neuts % (Manual) Lymphocytes % (Manual) Nucleated RBC % Seg Neutrophils # Seg Neutrophils # Man Lymphocytes # (Manual) Monocytes # (Manual) PT INR APTT D-Dimer ABG pH POC ABG pCO2 POC ABG pO2 ABG pO2 ABG HCO3 ABG O2 Saturation ABG Base Excess ABG Hemoglobin ABG Oxyhemoglobin ABG Methemoglobin ABG Sodium ABG Potassium ABG Chloride ABG Glucose Oxyhemoglobin Carboxyhemoglobin Sodium 136 L Potassium Chloride 96.0 L Carbon Dioxide BUN 79 H Creatinine 4.8 H Glucose 301 H POC Glucose 256 H 255 H Hemoglobin A1c Calcium Phosphorus 6.80 H D Magnesium Ferritin Alkaline Phosphatase Lactate Dehydrogenase Troponin T C-Reactive Protein Total Protein Albumin Ewlyy-7-Mjzbmvhlu Zinxe-4-Hplnxqjuc Beta Globulins PEP Interpretation Triglycerides HDL Cholesterol TSH Arterial Blood Glucose Arterial Blood Ionized Calcium Urine WBC (Auto) Coronavirus (PCR) 06/28/21 06/29/21 06/29/21 18:18 00:36 04:34 WBC 12.0 H RBC 3.35 L Hgb 9.5 L Hct 29.4 L RDW 16.1 H Plt Count 45 L Lymph % (Auto) Lymph # (Auto) Seg Neutrophils % Seg Neuts % (Manual) Lymphocytes % (Manual) Nucleated RBC % Seg Neutrophils # Seg Neutrophils # Man Lymphocytes # (Manual) Monocytes # (Manual) PT INR APTT D-Dimer ABG pH POC ABG pCO2 POC ABG pO2 ABG pO2 ABG HCO3 ABG O2 Saturation ABG Base Excess ABG Hemoglobin ABG Oxyhemoglobin ABG Methemoglobin ABG Sodium ABG Potassium ABG Chloride ABG Glucose Oxyhemoglobin Carboxyhemoglobin Sodium Potassium Chloride Carbon Dioxide BUN Creatinine Glucose POC Glucose 228 H 153 H Hemoglobin A1c Calcium Phosphorus Magnesium Ferritin Alkaline Phosphatase Lactate Dehydrogenase Troponin T C-Reactive Protein Total Protein Albumin Aaqwk-4-Wqkykyzup Aynyc-9-Ivhpalvzk Beta Globulins PEP Interpretation Triglycerides HDL Cholesterol TSH Arterial Blood Glucose Arterial Blood Ionized Calcium Urine WBC (Auto) Coronavirus (PCR) 06/29/21 06/29/21 06/29/21 04:34 05:19 12:30 WBC RBC Hgb Hct RDW Plt Count Lymph % (Auto) Lymph # (Auto) Seg Neutrophils % Seg Neuts % (Manual) Lymphocytes % (Manual) Nucleated RBC % Seg Neutrophils # Seg Neutrophils # Man Lymphocytes # (Manual) Monocytes # (Manual) PT INR APTT D-Dimer ABG pH POC ABG pCO2 POC ABG pO2 ABG pO2 ABG HCO3 ABG O2 Saturation ABG Base Excess ABG Hemoglobin ABG Oxyhemoglobin ABG Methemoglobin ABG Sodium ABG Potassium ABG Chloride ABG Glucose Oxyhemoglobin Carboxyhemoglobin Sodium Potassium 5.2 H Chloride 95.8 L Carbon Dioxide BUN 97 H Creatinine 5.6 H Glucose 184 H POC Glucose 180 H 161 H Hemoglobin A1c Calcium 8.1 L Phosphorus Magnesium Ferritin Alkaline Phosphatase 132 H Lactate Dehydrogenase Troponin T C-Reactive Protein Total Protein 6.0 L Albumin 3.3 L Fgcav-8-Ezqezvndn Jneso-3-Xedegdxda Beta Globulins PEP Interpretation Triglycerides HDL Cholesterol TSH Arterial Blood Glucose Arterial Blood Ionized Calcium Urine WBC (Auto) Coronavirus (PCR) 06/29/21 06/29/21 06/29/21 13:17 17:29 23:27 WBC RBC Hgb Hct RDW Plt Count Lymph % (Auto) Lymph # (Auto) Seg Neutrophils % Seg Neuts % (Manual) Lymphocytes % (Manual) Nucleated RBC % Seg Neutrophils # Seg Neutrophils # Man Lymphocytes # (Manual) Monocytes # (Manual) PT INR APTT D-Dimer ABG pH 7.243 L POC ABG pCO2 62.5 H POC ABG pO2 81.6 L ABG pO2 ABG HCO3 ABG O2 Saturation ABG Base Excess ABG Hemoglobin 11.2 L ABG Oxyhemoglobin 93.3 L ABG Methemoglobin ABG Sodium 134.3 L ABG Potassium ABG Chloride 96.0 L ABG Glucose 171 H Oxyhemoglobin Carboxyhemoglobin 1.6 H Sodium Potassium Chloride Carbon Dioxide BUN Creatinine Glucose POC Glucose 186 H 151 H Hemoglobin A1c Calcium Phosphorus Magnesium Ferritin Alkaline Phosphatase Lactate Dehydrogenase Troponin T C-Reactive Protein Total Protein Albumin Gtyew-4-Imebpxnbw Hvzpi-3-Cfizqlvko Beta Globulins PEP Interpretation Triglycerides HDL Cholesterol TSH Arterial Blood Glucose 171 H Arterial Blood Ionized Calcium Urine WBC (Auto) Coronavirus (PCR) 06/30/21 06/30/21 06/30/21 04:30 04:30 04:30 WBC 12.5 H RBC 3.25 L Hgb 9.1 L Hct 28.3 L RDW 16.2 H Plt Count 72 L Lymph % (Auto) Lymph # (Auto) Seg Neutrophils % Seg Neuts % (Manual) Lymphocytes % (Manual) Nucleated RBC % Seg Neutrophils # Seg Neutrophils # Man Lymphocytes # (Manual) Monocytes # (Manual) PT 16.7 H INR 1.22 H APTT D-Dimer ABG pH POC ABG pCO2 POC ABG pO2 ABG pO2 ABG HCO3 ABG O2 Saturation ABG Base Excess ABG Hemoglobin ABG Oxyhemoglobin ABG Methemoglobin ABG Sodium ABG Potassium ABG Chloride ABG Glucose Oxyhemoglobin Carboxyhemoglobin Sodium 136 L Potassium Chloride 91.6 L Carbon Dioxide BUN 80 H Creatinine 4.6 H Glucose 164 H POC Glucose Hemoglobin A1c Calcium Phosphorus Magnesium Ferritin Alkaline Phosphatase Lactate Dehydrogenase Troponin T C-Reactive Protein Total Protein Albumin Ezlfi-9-Kkktvunab Yyykw-3-Rdvhvpcjc Beta Globulins PEP Interpretation Triglycerides HDL Cholesterol TSH Arterial Blood Glucose Arterial Blood Ionized Calcium Urine WBC (Auto) Coronavirus (PCR) 06/30/21 06/30/21 06/30/21 05:41 08:59 11:24 WBC RBC Hgb Hct RDW Plt Count Lymph % (Auto) Lymph # (Auto) Seg Neutrophils % Seg Neuts % (Manual) Lymphocytes % (Manual) Nucleated RBC % Seg Neutrophils # Seg Neutrophils # Man Lymphocytes # (Manual) Monocytes # (Manual) PT INR APTT D-Dimer ABG pH 7.269 L POC ABG pCO2 58.5 H POC ABG pO2 70.1 L ABG pO2 ABG HCO3 ABG O2 Saturation ABG Base Excess ABG Hemoglobin 10.1 L ABG Oxyhemoglobin 91.3 L ABG Methemoglobin ABG Sodium 132.0 L ABG Potassium 4.8 H ABG Chloride 95.0 L ABG Glucose 172 H Oxyhemoglobin Carboxyhemoglobin Sodium Potassium Chloride Carbon Dioxide BUN Creatinine Glucose POC Glucose 155 H 163 H Hemoglobin A1c Calcium Phosphorus Magnesium Ferritin Alkaline Phosphatase Lactate Dehydrogenase Troponin T C-Reactive Protein Total Protein Albumin Aqxhj-1-Oixumptae Pdawu-6-Zflmqlmnp Beta Globulins PEP Interpretation Triglycerides HDL Cholesterol TSH Arterial Blood Glucose 172 H Arterial Blood Ionized Calcium Urine WBC (Auto) Coronavirus (PCR) 06/30/21 06/30/21 06/30/21 18:02 22:37 Unknown WBC RBC Hgb Hct RDW Plt Count Lymph % (Auto) Lymph # (Auto) Seg Neutrophils % Seg Neuts % (Manual) Lymphocytes % (Manual) Nucleated RBC % Seg Neutrophils # Seg Neutrophils # Man Lymphocytes # (Manual) Monocytes # (Manual) PT INR APTT D-Dimer ABG pH POC ABG pCO2 POC ABG pO2 ABG pO2 ABG HCO3 ABG O2 Saturation ABG Base Excess ABG Hemoglobin ABG Oxyhemoglobin ABG Methemoglobin ABG Sodium ABG Potassium ABG Chloride ABG Glucose Oxyhemoglobin Carboxyhemoglobin Sodium Potassium Chloride Carbon Dioxide BUN Creatinine Glucose POC Glucose 156 H 159 H Hemoglobin A1c Calcium Phosphorus Magnesium Ferritin Alkaline Phosphatase Lactate Dehydrogenase Troponin T C-Reactive Protein Total Protein Albumin Dppdp-2-Intmrjjon Xwtjg-9-Rlcwkltqw Beta Globulins PEP Interpretation Triglycerides HDL Cholesterol TSH 0.109 L Arterial Blood Glucose Arterial Blood Ionized Calcium Urine WBC (Auto) Coronavirus (PCR) 07/01/21 07/01/21 07/01/21 04:00 04:00 05:15 WBC 11.3 H RBC 2.75 L Hgb 7.8 L Hct 23.9 L RDW 15.9 H Plt Count 50 L Lymph % (Auto) Lymph # (Auto) Seg Neutrophils % Seg Neuts % (Manual) Lymphocytes % (Manual) Nucleated RBC % Seg Neutrophils # Seg Neutrophils # Man Lymphocytes # (Manual) Monocytes # (Manual) PT INR APTT D-Dimer ABG pH POC ABG pCO2 POC ABG pO2 ABG pO2 ABG HCO3 ABG O2 Saturation ABG Base Excess ABG Hemoglobin ABG Oxyhemoglobin ABG Methemoglobin ABG Sodium ABG Potassium ABG Chloride ABG Glucose Oxyhemoglobin Carboxyhemoglobin Sodium 136 L Potassium 5.2 H Chloride 95.2 L Carbon Dioxide BUN 105 H Creatinine 4.7 H Glucose 178 H POC Glucose 173 H Hemoglobin A1c Calcium 8.0 L Phosphorus Magnesium Ferritin Alkaline Phosphatase Lactate Dehydrogenase Troponin T C-Reactive Protein Total Protein Albumin Xmcib-4-Fhfmmmhmc Listo-8-Rvsinufjx Beta Globulins PEP Interpretation Triglycerides HDL Cholesterol TSH Arterial Blood Glucose Arterial Blood Ionized Calcium Urine WBC (Auto) Coronavirus (PCR) 07/01/21 07/01/21 07/01/21 11:30 11:50 17:30 WBC RBC Hgb Hct RDW Plt Count Lymph % (Auto) Lymph # (Auto) Seg Neutrophils % Seg Neuts % (Manual) Lymphocytes % (Manual) Nucleated RBC % Seg Neutrophils # Seg Neutrophils # Man Lymphocytes # (Manual) Monocytes # (Manual) PT INR APTT D-Dimer ABG pH 7.269 L POC ABG pCO2 52.0 H POC ABG pO2 76.7 L ABG pO2 ABG HCO3 ABG O2 Saturation ABG Base Excess ABG Hemoglobin 9.1 L ABG Oxyhemoglobin 92 L ABG Methemoglobin ABG Sodium 131.4 L ABG Potassium 5.3 H ABG Chloride 94.0 L ABG Glucose 205 H Oxyhemoglobin Carboxyhemoglobin Sodium Potassium Chloride Carbon Dioxide BUN Creatinine Glucose POC Glucose 184 H 181 H Hemoglobin A1c Calcium Phosphorus Magnesium Ferritin Alkaline Phosphatase Lactate Dehydrogenase Troponin T C-Reactive Protein Total Protein Albumin Hudhm-7-Egyumzeri Gbpou-1-Smzjzsexr Beta Globulins PEP Interpretation Triglycerides HDL Cholesterol TSH Arterial Blood Glucose 205 H Arterial Blood Ionized Calcium Urine WBC (Auto) Coronavirus (PCR) 07/01/21 07/02/21 07/02/21 23:28 04:18 05:16 WBC RBC Hgb Hct RDW Plt Count Lymph % (Auto) Lymph # (Auto) Seg Neutrophils % Seg Neuts % (Manual) Lymphocytes % (Manual) Nucleated RBC % Seg Neutrophils # Seg Neutrophils # Man Lymphocytes # (Manual) Monocytes # (Manual) PT INR APTT D-Dimer ABG pH 7.302 L POC ABG pCO2 55.5 H POC ABG pO2 120.2 H ABG pO2 ABG HCO3 ABG O2 Saturation ABG Base Excess ABG Hemoglobin 8.2 L ABG Oxyhemoglobin ABG Methemoglobin ABG Sodium ABG Potassium ABG Chloride ABG Glucose Oxyhemoglobin Carboxyhemoglobin 1.7 H Sodium Potassium Chloride Carbon Dioxide BUN Creatinine Glucose POC Glucose 144 H 139 H Hemoglobin A1c Calcium Phosphorus Magnesium Ferritin Alkaline Phosphatase Lactate Dehydrogenase Troponin T C-Reactive Protein Total Protein Albumin Ygnao-6-Lmsjazwzi Xykgw-6-Azuwptwsa Beta Globulins PEP Interpretation Triglycerides HDL Cholesterol TSH Arterial Blood Glucose Arterial Blood Ionized Calcium Urine WBC (Auto) Coronavirus (PCR) 07/02/21 07/02/21 07/02/21 07:47 07:47 09:40 WBC RBC 2.91 L Hgb 8.3 L Hct 25.4 L RDW 16.2 H Plt Count 48 L Lymph % (Auto) Lymph # (Auto) Seg Neutrophils % Seg Neuts % (Manual) Lymphocytes % (Manual) Nucleated RBC % Seg Neutrophils # Seg Neutrophils # Man Lymphocytes # (Manual) Monocytes # (Manual) PT INR APTT D-Dimer > 66369 H ABG pH POC ABG pCO2 POC ABG pO2 ABG pO2 ABG HCO3 ABG O2 Saturation ABG Base Excess ABG Hemoglobin ABG Oxyhemoglobin ABG Methemoglobin ABG Sodium ABG Potassium ABG Chloride ABG Glucose Oxyhemoglobin Carboxyhemoglobin Sodium 136 L Potassium Chloride 96.2 L Carbon Dioxide BUN 90 H Creatinine 3.8 H Glucose 147 H POC Glucose Hemoglobin A1c Calcium Phosphorus Magnesium Ferritin Alkaline Phosphatase Lactate Dehydrogenase Troponin T C-Reactive Protein Total Protein Albumin Nolir-3-Tpsravwol Fwfcn-5-Auilsdncc Beta Globulins PEP Interpretation Triglycerides HDL Cholesterol TSH Arterial Blood Glucose Arterial Blood Ionized Calcium Urine WBC (Auto) Coronavirus (PCR) 07/02/21 07/02/21 09:40 09:40 WBC RBC Hgb Hct RDW Plt Count Lymph % (Auto) Lymph # (Auto) Seg Neutrophils % Seg Neuts % (Manual) Lymphocytes % (Manual) Nucleated RBC % Seg Neutrophils # Seg Neutrophils # Man Lymphocytes # (Manual) Monocytes # (Manual) PT INR APTT D-Dimer ABG pH POC ABG pCO2 POC ABG pO2 ABG pO2 ABG HCO3 ABG O2 Saturation ABG Base Excess ABG Hemoglobin ABG Oxyhemoglobin ABG Methemoglobin ABG Sodium ABG Potassium ABG Chloride ABG Glucose Oxyhemoglobin Carboxyhemoglobin Sodium Potassium Chloride Carbon Dioxide BUN Creatinine Glucose POC Glucose Hemoglobin A1c Calcium Phosphorus Magnesium Ferritin 1159.0 H Alkaline Phosphatase Lactate Dehydrogenase 618 H Troponin T C-Reactive Protein 2.00 H Total Protein Albumin Sqwcm-1-Tvecvfiya Iafgs-4-Qydwykgko Beta Globulins PEP Interpretation Triglycerides HDL Cholesterol TSH Arterial Blood Glucose Arterial Blood Ionized Calcium Urine WBC (Auto) Coronavirus (PCR) Allied health notes reviewed: nursing
--- NOTE | 2021-07-02 17:04 | Vascular Lab Report ---
DUPLEX DOPPLER LOWER EXTREMITY VEINS, BILATERAL INDICATION / CLINICAL INFORMATION: Bilateral lower extremity swelling, possible DVT. TECHNIQUE: Duplex doppler imaging was performed through the veins of both lower extremities using venous foreign frank and other maneuvers. COMPARISON: Bilateral lower extremity venous Doppler from 06/23/2021. FINDINGS: RIGHT COMMON FEMORAL VEIN: Negative. RIGHT FEMORAL VEIN: Negative. RIGHT POPLITEAL VEIN: Negative. RIGHT CALF VEINS: Negative. LEFT COMMON FEMORAL VEIN: Negative. LEFT FEMORAL VEIN: Negative. LEFT POPLITEAL VEIN: Negative. LEFT CALF VEINS: Negative. ADDITIONAL FINDINGS: None. IMPRESSION: 1. No sonographic evidence for DVT in either lower extremity. Signer Name: Howard Coronel MD Signed: 07/02/2021 4:59 PM Workstation Name: [id number]
[2021-07-02] MEDS: VASOPRESSIN 20 UNIT in SODIUM CHLORIDE 0.9% 100 ML IV SCH (17:59)
[2021-07-02] MEDS: DEXTROSE 50% IN WATER (25GM) 50 ML SYRINGE IV PRN (18:01)
[2021-07-02] MEDS ORDERED: PHENYLEPHRINE 100 MG in SODIUM CHLORIDE 0.9% 90 ML IV SCH (23:30)
--- NOTE | 2021-07-02 23:40 | Event Note ---
Date: 07/02/21 Myles ordoñez called on patient with the following :ARDS; Pneumonia; COVID-19 virus infection; TREMAINE; DM II; Morbid obesity. Resuscitative measures were commenced according to ACLS protocol. She had a round of epinephrine with spontaneos return of circulation. Blood glucose was 57. She was given an amp of D50. Will check chemistry and ABG. Will follow up with results.
[2021-07-02 23:50] LABS: Calcium 8.2 mg/dL (8.4-10.2)
[2021-07-03] MEDS: VASOPRESSIN 20 UNIT in SODIUM CHLORIDE 0.9% 100 ML IV SCH (00:04)
[2021-07-03] MEDS: INSULIN REGULAR, HUMAN 100 UNITS/1 ML SUB-Q SCH (00:12)
[2021-07-03] MEDS ORDERED: SODIUM BICARB 8.4% 50 MEQ/50 ML SYRINGE IV ONE ×2 (00:37→00:39)
[2021-07-03] MEDS ORDERED: CALCIUM GLUCONATE 1,000 MG in SODIUM CHLORIDE 0.9% 100 ML IV ONE (00:44)
[2021-07-03] MEDS ORDERED: SODIUM BICARBONATE 150 MEQ in DEXTROSE 5% IN WATER 1,000 ML IV SCH (01:00)
[2021-07-03] MEDS ORDERED: INSULIN REGULAR, HUMAN 100 UNITS/1 ML IV ONE (01:01)
[2021-07-03] MEDS ORDERED: DEXTROSE 50% IN WATER (25GM) 50 ML SYRINGE IV ONE (01:02)
[2021-07-03] MEDS ORDERED: SODIUM POLYSTYRENE 15 GM/60 ML ORAL LIQD PO ONE (01:03)
[2021-07-03 01:49] VITALS: BP 70/40
--- NOTE | 2021-07-03 03:36 | Event Note ---
Date: 07/03/21 Myles ordoñez called on patient with the following :ARDS; Pneumonia; COVID-19 virus infection; TREMAINE; DM II; Morbid obesity. Resuscitative measures were commenced according to ACLS protocol. She had multiple rounds of epinephrine. All resuscitative measures proved futile. Upon exam pupils were fixed and dilated No response to verbal commands or deep sternal rub. Chest: No breath sounds Cardiovascular exam: No heart sounds and no peripheral pulses Abdomen: Obese, soft Extremities: Cold and clammy Central nervous system: No reflexes Patient pronounced at 2:05 AM on July 03, 2021. was immediately notified.
[2021-07-03] MEDS ORDERED: methylPREDNISolone Sod Succinate 40 MG/1 ML INJ IV SCH (10:00)
[2021-07-04] MEDS ORDERED: methylPREDNISolone Sod Succinate 40 MG/1 ML INJ IV SCH (10:00)
--- NOTE | 2021-07-04 17:16 | Death Summary ---
Summary - Providers Date of service: 07/03/21 Consults: 06/07/21 21:41 Consult to Physician [CONS] Routine Comment: noted/ isabella Consulting Provider: ANGELINA LÓPEZ Physician Instructions: Reason For Exam: Bilateral pneumonia, sepsis 06/07/21 21:57 Consult to Physician [CONS] Routine Comment: Consulting Provider: SHANIA HURT Physician Instructions: Reason For Exam: Bilateral pneumonia, sepsis 06/07/21 22:51 Consult to Physician [CONS] Routine Comment: Consulting Provider: MAURILIO ESCALANTE Physician Instructions: Reason For Exam: Elevated troponin 06/07/21 22:53 Consult to Physician [CONS] Routine Comment: Consulting Provider: AUGUSTUS JAQUEZ Physician Instructions: Reason For Exam: Acute kidney injury 06/07/21 22:54 Consult to Dietitian/Nutrition [CONS] Routine Physician Instructions: Reason For Exam: Protein calorie malnutrition Reason for Consult: Malnutrition 06/10/21 11:15 Physical Therapy Evaluation and Treat [CONS] Routine Comment: Reason For Exam: To avoid deconditioning 06/22/21 13:07 Consult to Dietitian/Nutrition [CONS] Routine Physician Instructions: Reason For Exam: Reason for Consult: Write/Manage Tube Feeding Consult to PICC Line RN [CONS] Urgent Reason For Exam: difficult peripheral access Type Line:: Midline 06/22/21 15:06 Consult to PICC Line RN [CONS] Stat Reason For Exam: need for vasopressors Type Line:: PICC 06/23/21 07:49 Consult to Physician [CONS] Routine Comment: called office/ isabella Consulting Provider: JOVAN KUMARI Physician Instructions: Reason For Exam: sepsis 06/23/21 10:10 Consult to Physician [CONS] Routine Comment: Consulting Provider: YANE CLEMENTE Physician Instructions: Reason For Exam: Seizure 06/26/21 15:19 Consult to Physician [CONS] Routine Comment: Consulting Provider: JON SHAY Physician Instructions: Reason For Exam: thrombocytopenia Attending: REBEKAH CELESTE MD - summary Date of admission: 06/07/21 20:44 Date of : 07/03/21 Reason for admission: Acute kidney injury, acute hypoxic respiratory failure with suspected COVID Significant findings: Patient found to have COVID-19 infection. Eventually her acute kidney injury progressed to ESRD requiring dialysis. Respiratory failure worsened after prolonged course of high flow nasal cannula. She developed ARDS. Patient was intubated and transferred to ICU. On 07/03 JAMES CONN was called. Resuscitative measures were started according to ACLS protocol. She had multiple rounds of epinephrine. ROSC was not achieved. Patient was pronounced at 2:05 AM and family was notified. Disposition: [facility] - Final diagnosis (1) Acute respiratory failure with hypoxia Note: Final diagnosis: (2) ESRD (end stage renal disease) on dialysis Note: Final diagnosis: (3) ARDS (adult respiratory distress syndrome) Note: Final diagnosis:
== END 2021-07-03 02:05 | DRG 870 ==
LOC: ED 18:50 → 3A 20:44 → IMCU 06-21 16:38 → CC1 06-22 13:44
PROVIDERS: ADMIT Internal Medicine; ATTEND Student in an Organized Health Care Education/Training Program
PROC: 5A09357 Assistance with Respiratory Ventilation, Less than 24 Consecutive Hours, Continuous Positive Airway Pressure (ICD-10-PCS; 2021-06-07)
PROC: XW033H5 Introduction of Tocilizumab into Peripheral Vein, Percutaneous Approach, New Technology Group 5 (ICD-10-PCS; 2021-06-09)
PROC: 5A09357 Assistance with Respiratory Ventilation, Less than 24 Consecutive Hours, Continuous Positive Airway Pressure (ICD-10-PCS; 2021-06-10)
PROC: 4A033R1 Measurement of Arterial Saturation, Peripheral, Percutaneous Approach (ICD-10-PCS; 2021-06-21)
PROC: 5A09457 Assistance with Respiratory Ventilation, 24-96 Consecutive Hours, Continuous Positive Airway Pressure (ICD-10-PCS; 2021-06-21)
PROC: 5A1955Z Respiratory Ventilation, Greater than 96 Consecutive Hours (ICD-10-PCS; principal; 2021-06-22)
PROC: 0BH17EZ Insertion of Endotracheal Airway into Trachea, Via Natural or Artificial Opening (ICD-10-PCS; 2021-06-22)
PROC: 03HY32Z Insertion of Monitoring Device into Upper Artery, Percutaneous Approach (ICD-10-PCS; 2021-06-23)
PROC: 5A1D70Z Performance of Urinary Filtration, Intermittent, Less than 6 Hours Per Day (ICD-10-PCS; 2021-06-24)
PROC: 05HY33Z Insertion of Infusion Device into Upper Vein, Percutaneous Approach (ICD-10-PCS; 2021-06-24)
PROC: 5A1D70Z Performance of Urinary Filtration, Intermittent, Less than 6 Hours Per Day (ICD-10-PCS; 2021-06-25)
PROC: 30233R1 Transfusion of Nonautologous Platelets into Peripheral Vein, Percutaneous Approach (ICD-10-PCS; 2021-06-27)
PROC: 5A1D70Z Performance of Urinary Filtration, Intermittent, Less than 6 Hours Per Day (ICD-10-PCS; 2021-06-27)
PROC: 5A09357 Assistance with Respiratory Ventilation, Less than 24 Consecutive Hours, Continuous Positive Airway Pressure (ICD-10-PCS; 2021-06-29)
PROC: 5A1D70Z Performance of Urinary Filtration, Intermittent, Less than 6 Hours Per Day (ICD-10-PCS; 2021-06-29)
PROC: 5A1D70Z Performance of Urinary Filtration, Intermittent, Less than 6 Hours Per Day (ICD-10-PCS; 2021-07-01)
DX: A41.9 Sepsis, unspecified organism (principal); U07.1 COVID-19; J96.01 Acute respiratory failure with hypoxia; J12.82 Pneumonia due to coronavirus disease 2019; G93.41 Metabolic encephalopathy; E46 Unspecified protein-calorie malnutrition; Z68.43 Body mass index [BMI] 50.0-59.9, adult; E87.0 Hyperosmolality and hypernatremia; N17.9 Acute kidney failure, unspecified; R65.20 Severe sepsis without septic shock; E03.9 Hypothyroidism, unspecified; Z79.4 Long term (current) use of insulin; R77.8 Other specified abnormalities of plasma proteins; E66.01 Morbid (severe) obesity due to excess calories; N18.30 Chronic kidney disease, stage 3 unspecified; Z88.8 Allergy status to other drugs, medicaments and biological substances; Z91.040 Latex allergy status; Z91.013 Allergy to seafood; E11.22 Type 2 diabetes mellitus with diabetic chronic kidney disease; Z79.899 Other long term (current) drug therapy; I12.9 Hypertensive chronic kidney disease with stage 1 through stage 4 chronic kidney disease, or unspecified chronic kidney disease; E11.40 Type 2 diabetes mellitus with diabetic neuropathy, unspecified; Z89.421 Acquired absence of other right toe(s); Z82.49 Family history of ischemic heart disease and other diseases of the circulatory system; E87.5 Hyperkalemia; E83.39 Other disorders of phosphorus metabolism; D69.6 Thrombocytopenia, unspecified
CPT/HCPCS: 36415; 36600; 36620; 70450; 71045; 74018; 76770; 80048; 80053; 80061; 80074; 80202; 81001; 82140; 82310; 82728; 82803; 82805; 82962; 83036; 83615; 83735; 84100; 84145; 84165; 84443; 84484; 85007; 85025; 85027; 85379; 85384; 85610; 85730; 86022; 86140; 86850; 86900; 86901; 87040; 87070; 87086; 87205; 92950; 93005; 93306; 93970; 94002; 94003; 94640; 94660; 94760; 95819; G0378; C9254; J0282; J0330; J0456; J0610; J0692; J0696; J1100; J1650; J1652; J1815; J1953; J2060; J2250; J2370; J2405; J2765; J2920; J2930; J3010; J3262; J3370; J7030; J7040; J7050; J7060; J7070; P9035; P9047; Q0162; U0003